=== PATIENT | female | born 1945 | race Caucasian/White ===

== ENCOUNTER → 2020-05-18 17:54 | Outpatient (CLI) | payer MEDICARE, SELFPAY | PROVIDERS: PCP Internal Medicine; Referring Provider Internal Medicine; Visit Provider Internal Medicine | DX: Z20.828 Contact with and (suspected) exposure to other viral communicable diseases (principal) | CPT/HCPCS: 87635; C9803; U0003 ==

== ENCOUNTER → 2021-02-03 12:07 | Outpatient (CLI) | payer MEDICARE, BC, SELFPAY ==
[2021-02-03 11:14] VITALS: BMI 44.1
[2021-02-03 13:44] LABS: Absolute Lymphocyte Count 0.85 X10^3/uL (0.83-4.51); Absolute Neutrophil Count 3.1 X10^3/uL (2.0-7.7); Basophil# 0.01 X10^3/uL; Basophil% 0.2 % (0-1); Eosinophil# 0.11 X10^3/uL; Eosinophils% 2.5 % (0-5); Hematocrit 41.4 % (37-47); Hemoglobin 13.4 g/dL (12.0-15.0); Lymphocyte # 0.85 X10^3/ul (0.83-4.51); Lymphocyte % 19.2 % (19-41); Mean Corp Hgb Conc 32.4 g/dL (32-36); Mean Corpuscular Hgb 28.7 pg (27.0-32.0); Mean Corpuscular Volume 88.7 fL (81-99); Mean Platelet Vol. 10.1 fl (6.2-12.0); Monocyte# 0.31 X10^3/uL; NRBC Flagged by Analyzer 0 % (0-5); Neutrophil # 3.12 X10^3/uL (2.7-7.7); Neutrophil % 70.6 % (47-70); Platelet Count 214 K/mm3 (150-450); RBC Distribution Width CV 13.9 % (11.6-14.6); RBC Distribution Width SD 44.4 fl (35.1-43.9); Red Blood Count 4.67 M/mm3 (4.2-5.4); White Blood Count 4.4 K/mm3 (4.4-11.0)
[2021-02-03 14:12] LABS: BNP,B-Type NATRIURETIC PEPTIDE 19.7 pg/mL (0-100)
[2021-02-03 14:26] LABS: AST(SGOT) 48 U/L (15-37); Alanine Aminotransfer ALT/SGPT 95 U/L (13-56); Albumin, Serum 3.6 g/dL (3.2-5.0); Alkaline Phosphatase 107 U/L (45-117); Anion Gap 5 (5-15); BUN 14 mg/dL (7-18); BUN/Creat Ratio 13.3 RATIO (10-20); Bilirubin, Direct 0.18 mg/dL (0.00-0.30); Calcium,Total 9.8 mg/dL (8.5-10.1); Chloride 103 mmol/L (98-107); Cholesterol 180 mg/dL (200); Creatinine, Serum 1.05 mg/dL (0.55-1.02); EST Glomerular Filtration Rate 54 mL/min (>60); Est Glom Filt Rate - Afr Amer 66 mL/min (>60); Globulin 3.4 g/dL (2.2-4.2); Glucose 132 mg/dL (74-106); High Density Lipoprotein 57 mg/dL; Potassium 4.1 mmol/L (3.5-5.1); Sodium Level 139 mmol/L (136-145); Thyroid Stim Hormone (TSH) 4.48 uIU/mL (0.358-3.74); Triglycerides 106 mg/dL; Very Low Density Lipoprotein 21 mg/dL (5-40)
== END ==
PROVIDERS: PCP Internal Medicine; Referring Provider Internal Medicine Cardiovascular Disease; Visit Provider Internal Medicine Cardiovascular Disease
DX: I10 Essential (primary) hypertension (principal); R06.02 Shortness of breath; R06.00 Dyspnea, unspecified; I44.7 Left bundle-branch block, unspecified; E78.5 Hyperlipidemia, unspecified
CPT/HCPCS: 36415; 80048; 80061; 80076; 83880; 84443; 85025

== ENCOUNTER → 2021-02-19 06:45 | Outpatient (CLI) | payer MEDICARE, BC, SELFPAY ==
[2021-02-03 11:14] VITALS: BMI 44.1
--- NOTE | 2021-02-19 06:52 | ECHOCS_ITS ---
Reason For Study: SOB Procedure This was a 2D Doppler, Color Flow transthoracic echocardiogram. Technically difficult study due to patients body habitus. Contrast injection performed. Exam performed in department. Left Ventricle Normal LV size. Left ventricular systolic function is normal. The estimated ejection fraction is 65 %. No regional wall motion abnormalities noted. Right Ventricle Normal RV size. Normal systolic function. Atria Normal left atrium. Normal right atrium. Mitral Valve Normal mitral valve. There is mild mitral annular calcification. Tricuspid Valve Normal tricuspid valve. Aortic Valve Trisinus/trileaflet aortic valve. Pulmonic Valve Normal pulmonic valve. Great Vessels Normal aortic root. The pulmonary artery is normal size. Normal inferior vena cava. Pericardium/Pleural No pericardial effusion. Medication 22 gauge I.V. with prn adaptor inserted into left arm. Diluted definity 3ml given slow IV push to enhance endocardial definition. MMode/2D Measurements & Calculations LVIDd: 3.9 cm IVSd: 1.3 cm Ao root diam: 3.6 cm LVIDs: 2.8 cm LVPWd: 1.7 cm LA dimension: 3.9 cm FS: 29.4 % LAV(MOD-bp): 56.3 ml LA A4 area: 17.9 cm2 RA A4 area: 10.2 cm2 LAV(MOD-bp) Indexed: 23.5 ml/m2 LAV(MOD-sp2): 59.3 ml LAV(MOD-sp4): 51.4 ml Doppler Measurements & Calculations MV E max wade: 179.7 cm/sec Lat Peak E' Wade: 7.4 cm/sec Ao V2 max: 181.1 cm/sec E/E' lat: 24.2 Ao max P.1 mmHg LV V1 max: 121.9 cm/sec PA V2 max: 97.3 cm/sec LV V1 max P.9 mmHg ECHO/Echo Complete W/ Contrast Interpretation Summary Normal LV size. Left ventricular systolic function is normal. The estimated ejection fraction is 65 %. There is mild mitral annular calcification. Ordering Physician: Paolo Fitch Referring Physician: Helen De Paz Performed By: Omar Mccloud, RUST
--- NOTE | 2021-02-19 18:11 | STRESSREP ---
Stress Test Report Pharmacologic myocardial perfusion stress test. 75-year-old lady with a history of chest pain. Stress protocol: Resting EKG demonstrates normal sinus rhythm with a rate of 76 bpm. Left bundle branch block pattern is noted resting blood pressure is 152/82 mmHg. 0.4 mg of regadenoson was infused per usual protocol followed by rapid intravenous saline flush injection continuous EKG monitoring was performed. The maximum heart rate attained is 96 bpm which was 66% of maximum predicted heart rate the maximum workload was 1 metabolic equivalent. At rest there were no ST or T wave changes noted to suggest ischemia at peak infusion nonspecific ST changes were noted. Left bundle branch block pattern was noted. Myocardial perfusion protocol. 14.7 mCi of technetium 99m sestamibi was injected at rest. 0.4 mg of regadenoson was infused per usual protocol. At peak infusion 44.5 mCi of technetium 99m sestamibi was injected stress images were obtained stress and rest images were reconstructed and compared in the short axis vertical long and horizontal long axis. Gated images were also obtained per Perfusion SPECT analysis: Review of the stress images demonstrate a medium-sized defect noted in the anterior wall. The septum lateral wall and inferior wall appeared to be well perfused. The resting images demonstrate improvement in the anterior wall the above suggesting anterior ischemia. No previous infarct is noted. Gated SPECT analysis: The gated ejection fraction is 70%. Conclusion: Pharmacologic myocardial perfusion stress test with evidence of anterior ischemia. Preserved ejection fraction.
== END ==
PROVIDERS: PCP Internal Medicine; Referring Provider Internal Medicine Cardiovascular Disease; Visit Provider Internal Medicine Cardiovascular Disease
DX: R06.00 Dyspnea, unspecified (principal); R06.02 Shortness of breath
CPT/HCPCS: 78452; 93017; 93306; A9500; Q9957; A4216; C8929; J2785; J3490

== ENCOUNTER 2021-03-01 08:57 | Day surgery (SDC) | payer MEDICARE, BC, SELFPAY ==
[2021-02-03 11:14] VITALS: BMI 44.1
--- NOTE | 2021-02-22 10:26 | RAD_ITS ---
STUDY: X-RAY CHEST REASON FOR EXAM: Female, 75 years old. Angina. TECHNIQUE: COMPARISON: None. FINDINGS: The lungs are clear and expanded. There is no demonstrated pleural abnormality. Normal size heart. Normal mediastinum and warner. Normal visualized pulmonary arteries. There is atherosclerotic calcification of the aortic arch with tortuosity. There are diffuse degenerative changes of the visualized thoracic spine. There is degenerative osteoarthritis of the bilateral shoulders. There is no demonstrated abnormality of the visualized soft tissue structures of the upper abdomen. RAD/Chest PA and Lateral IMPRESSION: No acute abnormality is seen. Electronically Signed: Ed Altamirano MD at 14:00 EDT , Service support ,
[2021-02-26 08:31] VITALS: BMI 44.1
[2021-03-01 09:46] LABS: Bedside Glucose 178 mg/dL (70-110)
--- NOTE | 2021-03-01 10:41 | CL.D_ITS ---
Patient Name: KEMAL CONNER Study Date: 03/01/2021 Performing: Paolo Fitch MD Ht: 68.11 inches 173 cm : 1945 Wt: 291.01 lbs 132 kg Age: 75 Gender: female BSA: 2.4 PROCEDURE(S) PERFORMED [id number]/LV CLINICAL PROFILE AND INDICATIONS Indications: Suspected CAD Heart Failure: None Stress/Imaging Date: 02/19/21ress Test with SPECT MPI: Positive Intermediate Risk CAD Presentations: Unstable angina. CONCLUSIONS Significant proximal right coronary artery stenosis with 80% stenosis. RECOMMENDATIONS Referred for immediate PCI DESCRIPTION OF PROCEDURE The patient arrived to the procedure lab. The risks and benefits of the procedure as well as a full d escription of our services here and current unavailability of surgical backup were fully explained to the patient and/or their significant other prior to the catheterization. The Timeout was completed, verifying the correct patient and procedure. The patient's procedural site was prepped and draped in the usual fashion. Local anesthetic was given subcutaneously to right radial region with Lidocaine 2% . Using a modified Seldinger technique, arterial access was obtained via the right radial artery, a 6 Fr sheath was inserted. Left Coronary Artery selective angiography was performed in multiple views u sing a 5 Fr. 4.0 Bar[place] catheter. Right Coronary Artery selective angiography was then performed in mu ltiple views using a 5 Fr. 4.0 Baraga catheter. Left Ventriculography was performed in GARCIA projection using a 5 Fr. Pigtail catheter. LV to AO pullback pressures were then recorded. CORONARY ANGIOGRAPHY DOMINANCE: Right Dominant LEFT HEART ASSESSMENT Normal LV wall motion Normal Left Ventricular systolic function LEFT MAIN: Angiographically normal LEFT ANTERIOR DESCENDING ARTERY: PROX LAD: Mild luminal irregularities less than 30% CIRCUMFLEX ARTERY: No significant disease noted RIGHT CORONARY ARTERY: PROX RCA: Moderate calcification, 80 % Stenosis COMPLICATIONS PROCEDURE MEDICATIONS Fentanyl 50 mcg IV Versed 1 mg IV Oxygen: 2 L/min via nasal cannula Brilinta 180 mg PO @ 03/01/2021 10:26:59 Heparin given IA 03/01/2021 10:13:21 Heparin 6000 unit(s) IV 03/01/2021 10:28:30 Nitro 200 mcg IA 03/01/2021 10:34:43 Verapamil 2.5mg, Ntg 100mcgs, 3000 units of Heparin given IA 03/01/2021 10:13:21 SUMMARY OF HEMODYNAMIC DATA Time AIR REST ECG 09:31:11 Art 167/74 (104) 10:10:27 AO 137/75 (101) SA 10:16:00 LV 144/10, 25 10:23:19 LV 148/13, 20 10:23:25 LV 131/15, 26 10:24:09 LVp 126/24, 31 10:24:14 AOp 129/69 (95) 10:24:19 Signed By Paolo Fitch MD On 03/01/2021 10:40:36 AM Paolo Fitch MD
--- NOTE | 2021-03-01 11:32 | PCIREPORT_ITS ---
PCI Cardiac Cath Report PCI Report: ; Procedure performed; 1. Attempted PCI of focal heavily calcified proximal large dominant RCA 80%/unable to pass balloon due to heavily calcified artery 2. Patient was given Brilinta 180 mg, aspirin and heparin and ACT level was 251. 3. Placement of TR band to right radial artery arteriotomy site. Consent; Risk and benefit of the procedure explained in detail to the patient elected to proceed and informed consent obtained. Preprocedure diagnosis; 75-year-old patient underwent cardiac catheterization by primary seasonal tax preparer Dr. Fitch, patient had history of diabetes, hypertension, hyperlipidemia symptoms of shortness of breath and LE bundle branch block Review of the cardiac catheterization showed focal highly calcified large proximal RCA dominant 80% stenosis. Left coronary system no significant coronary atherosclerosis seen., Including left main, left circumflex and a large LAD. And LV systolic function is preserved. Interventional equipment; 1. 6 [place]ian [place] guide catheter. 2. 2 wires, 0.014 straight run-through guide wire 180 cm 3. BMW guidewire 4. 2 mm x 15 mm emerge balloon. Approach; Right radial artery approach, patient given additional 200 mg of nitroglycerin through the right radial artery sheath. We will proceed with the [place] catheter 6 Slovenian guide advanced ascending aorta cannulated right coronary ostium, This is followed by crossing the lesion with 2 wires due to heavily calcified vessel it was difficult to cross the lesion Then we attempted predilatation using 2 mm x 50 mm balloon unable to cross with the balloon. Patient is stable with no complication no chest pain no change in the EKG or monitors and K wires removed and angiographic view showed a highly calcified lesion Conclusion and recommendation Heavily calcified proximal right dominant coronary artery 80% with attempted PCI unsuccessful due to unable to pass wire I recommended atherectomy to the heavily calcified RCA, versus IV L {intravascular lithotripsy} Arrangement was made for transfer to [facility] for intervention of the RCA. Jorge Ward MD,[facility] welding robot operator
== END 2021-03-01 14:57 | disposition home or self-care (01) ==
LOC: CLSP 09:03
PROVIDERS: PCP Internal Medicine; Referring Provider Internal Medicine Cardiovascular Disease; Visit Provider Internal Medicine Cardiovascular Disease
DX: I25.110 Atherosclerotic heart disease of native coronary artery with unstable angina pectoris (principal); E78.5 Hyperlipidemia, unspecified; I10 Essential (primary) hypertension; E11.9 Type 2 diabetes mellitus without complications; F32.9 Major depressive disorder, single episode, unspecified; K21.9 Gastro-esophageal reflux disease without esophagitis; E03.9 Hypothyroidism, unspecified; H40.9 Unspecified glaucoma; K58.9 Irritable bowel syndrome, unspecified; G25.81 Restless legs syndrome; G47.33 Obstructive sleep apnea (adult) (pediatric); F41.9 Anxiety disorder, unspecified; M79.7 Fibromyalgia; M19.90 Unspecified osteoarthritis, unspecified site; M48.062 Spinal stenosis, lumbar region with neurogenic claudication; E66.01 Morbid (severe) obesity due to excess calories; Z79.899 Other long term (current) drug therapy; Z68.41 Body mass index [BMI] 40.0-44.9, adult
CPT/HCPCS: 71046; 82962; 92928; 93458; 99152; 99153; J7040; Q9967; C1725; C1769; C1887; C1894; C9600

== ENCOUNTER → 2021-03-10 13:00 | Outpatient (CLI) | payer MEDICARE, BC, SELFPAY ==
[2021-03-05 14:31] VITALS: BMI 44.1
--- NOTE | 2021-03-10 13:07 | CR.HP_ITS ---
CR - History & Physical - General Arrival date:: 03/10/21 Arrival time:: 13:08 Date of Referral:: 03/05/21 Date of CR Evaluation:: 03/10/21 Referring Physician: Dr. Paolo Fitch Primary Diagnosis: PCI with coronary stent - History of Present Cardiac Event Onset Date: Enter Onset Date of cardiac illnesses in Comment field below PTCA or coronary stenting:: Yes - 03/02/2021 - Sleep Disorder Evaluation Hx of Sleep Apnea: Yes Do you snore loudly (louder than talking or can be heard through closed doors)?: No - unsure Do you often feel tired/ fatigued/ sleepy during daytime?: No - Pt has CPAP and sleeps sitting up Has anyone observed you stop breathing during sleep?: Yes History of Hypertension (for STOP score): Yes - Pt is on CPAP STOP Results: Positive - Medications Home Medications: Ambulatory Orders Medication Instructions Recorded Lactobacillus See Rx Instructions .ROUTE .COMPLEX 02/01/21 acidophilus-Bifidobac.animalis 2.5 billion cell capsule amoxicillin 500 mg capsule 2,000 mg PO .COMPLEX cap 02/01/21 ascorbic acid (vitamin C) 250 mg 250 mg PO DAILY 02/01/21 tablet atorvastatin 10 mg tablet 10 mg PO QHS 02/01/21 bimatoprost 0.01 % eye drops 1 drp OPHTHALMIC (EYE) QPM 02/01/21 bupropion HCl 150 mg tablet,12 hr 150 mg PO QAM 02/01/21 sustained-release cetirizine 10 mg tablet 10 mg PO HS tab 02/01/21 cholecalciferol (vitamin D3) 50 2,000 unit PO DAILY tab 02/01/21 mcg (2,000 unit) tablet ciprofloxacin HCl 0.3 % eye drops 1 drp OPHTHALMIC (EYE) 4X/DAY ml 02/01/21 conjugated estrogens 0.625 mg/gram 0.3125 mg VAGINAL 2XW g 02/01/21 vaginal cream diclofenac sodium 1 % topical gel 2 g TOPICAL 4X/DAY g 02/01/21 dicyclomine 10 mg capsule 10 mg PO QACHS cap 02/01/21 ferrous sulfate 324 mg (65 mg 324 mg PO DAILY 02/01/21 iron) tablet,delayed release fluticasone propionate 50 2 spray INTRANASAL DAILY 02/01/21 mcg/actuation nasal spray,suspension gabapentin enacarbil 300 mg 900 mg PO DAILY tab 02/01/21 tablet,extended release glyburide 2.5 mg tablet 2.5 mg PO DAILY 02/01/21 hydrocortisone 2.5 % topical cream 1 applic IA BID g 02/01/21 with perineal applicator ketoconazole 2 % topical cream 1 applic TOPICAL DAILY 02/01/21 levothyroxine 50 mcg tablet 50 mcg PO DAILY 02/01/21 meloxicam 7.5 mg tablet 7.5 mg PO BID PRN tab 02/01/21 metformin 1,000 mg tablet 1,000 mg PO DAILY 02/01/21 montelukast 10 mg tablet 10 mg PO QHS 02/01/21 olopatadine 0.1 % eye drops 1 drp OPHTHALMIC (EYE) BID 02/01/21 omeprazole 40 mg capsule,delayed 40 mg PO DAILY 02/01/21 release pramipexole 0.125 mg tablet 0.25 mg PO 4X/DAY tab 02/01/21 sitagliptin 100 mg tablet 100 mg PO DAILY 02/01/21 tizanidine 2 mg capsule 2 mg PO QHS 02/01/21 ubidecarenone-omega 3-vit E 25 1 cap PO DAILY 02/01/21 mg-150 (90-60) mg-200 unit capsule valsartan 320 1 tab PO DAILY 02/01/21 mg-hydrochlorothiazide 12.5 mg tablet wheat dextrin 3 gram/3.8 gram oral 1 packet PO DAILY 02/01/21 powder aspirin 81 mg tablet,delayed 81 mg PO DAILY 02/20/21 release metoprolol tartrate 25 mg tablet ea PO 03/05/21 semaglutide 0.25 mg SUBCUT QWEEK 03/05/21 ticagrelor 90 mg tablet 90 mg PO BID tab 03/05/21 - Allergies Allergies/Adverse Reactions: Allergies bacitracin Allergy (Unknown, Verified 02/01/21 10:46) unknown codeine Allergy (Unknown, Verified 02/01/21 10:46) Unknown house dust mite Allergy (Unknown, Verified 02/01/21 10:46) unknown mold Allergy (Unknown, Verified 02/01/21 10:46) Unknown Sulfa (Sulfonamide Antibiotics) Allergy (Unknown, Verified 02/01/21 10:46) Unknown Advanced Directives - Advanced Directives 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 Box 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: Yes Living Will: Yes Advance Directives Information Provided: Yes Advance Directives on File: No DNR Order?:: No - MOLST See MOLST form: No Past Medical History - Covid-19 Screening Fever: No Unexplained muscle aches: No Current respiratory symptoms: No Upper respiratory infections symptoms: No Gastro-intestinal symptoms: No Fxg-[id number]-Xhpsvf symptoms: No Has tested positive for COVID-19 in last 30 days: No Had contact w/person w/symptoms or Covid-19 (+) last 14 days: No Has High Risk Exposures ID'd by Health dept/Inf Control team: No 65 years or older:: Yes Lives in Assisted Living facility:: No Has a chronic lung disease or moderate to severe asthma:: No Has a serious heart condition:: Yes Immunocompromised:: No Severely obese (Body Mass Index of 40 or higher):: Yes Diabetic:: Yes Has chronic kidney disease undergoing dialysis:: No Has liver disease:: No - Past Medical Illness Medical History: Past Medical History (Last Reviewed 03/05/21 @ 15:03 by Felicita POWER, PA) Anxiety and depression F41.9, F32.9 Atherosclerotic heart disease of [place] coronary artery without angina pectoris I25.10 Essential hypertension I10 Fibromyalgia M79.7 Fuchs' corneal dystrophy H18.519 GERD (gastroesophageal reflux disease) K21.9 Glaucoma H40.9 History of posttraumatic stress disorder (PTSD) Z86.59 Hx of migraines Z86.69 Hyperlipidemia E78.5 Hypothyroidism E03.9 IBS (irritable bowel syndrome) K58.9 Iron deficiency anemia D50.9 Left bundle branch block (LBBB) I44.7 Morbid obesity E66.01 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 G47.33, Z99.89 Osteoarthritis M19.90 Restless leg syndrome G25.81 Sleeps in sitting position due to orthopnea R06.01 Spinal stenosis of lumbar region with neurogenic claudication M48.062 TMJ (dislocation of temporomandibular joint) S03.00XA Type 2 diabetes mellitus without complication E11.9 - Past Surgical History Surgical History: Past Surgical History (Last Updated 03/08/21 @ 13:01 by Ellyn Gu) History of abdominoplasty Z98.890 History of bilateral breast reduction surgery Z98.890 History of bladder repair surgery Z98.890 History of coronary artery stent placement Onset Date: 03/02/21 Z95.5 PCI-CSI Orbital Atherectomy and LORI-Mid RCA w/ 4.0 x 28 mm Xience Stent 03/02/21 History of Descemet membrane endothelial keratoplasty (DMEK) Z94.7 History of Descemet's stripping endothelial keratoplasty (DSEK) Z94.7 History of hysterectomy Z90.710 History of left heart catheterization Onset Date: 03/01/21 Z98.890 History of nasal septoplasty Z98.890 History of parathyroid surgery Z98.890 History of phacoemulsification of cataract of both eyes with intraocular lens implantation Z98.41, Z98.42, Z96.1 History of repair of rectocele Z98.890 History of total left knee replacement Z96.652 History of total right knee replacement Z96.651 History of YAG laser capsulotomy of lens of left eye Z98.42 History of YAG laser capsulotomy of lens of right eye Z98.41 - Family History Summary Family History: Family History (Last Reviewed 03/05/21 @ 15:03 by Felicita POWER, PA) Father CVA (cerebral vascular accident) CAD (coronary artery disease) coronary stents Mother Myocardial infarction, Onset Age: 59 Brother CAD (coronary artery disease) CABG Sister Diabetes Hypertension Heart disease CHF Unknown Glaucoma Brother CAD (coronary artery disease) CABG end stage CHF Social History - Smoking History Smoking Status: Never smoker Hx Tobacco Use: No Hx Smoking Exposure: No - Alcohol Use Alcohol Usage: Yes - few times a month - Substance Abuse Hx Substance Use: No - Occupation Occupation (List type of work in comments):: Retired - Hobbies, Recreation, Social Activities Hobbies: Other - artist, writing, computer games Recreational Activities: I am able to engage in all my recreational activities Social Environment - Status Marital Status: - Current Living Arrangements Living Environment:: Alone - Children How many children do you have?: 2 Do any of your children live nearby?: Yes - Safety Do you feel safe in your surroundings?: Yes - Assistance Do you need any assistance at home?: no Review of Systems - Review of Systems Hints: Right click = Denies ([place]). Left click = Reports ([place]) Review of Present Symptoms: Reports: Shortness of Breath with Exertion, Operative Discomfort - wrist pain, Fatigue, Appetite - Normal, Appetite - Special Diet, Sleep - Normal. 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 - Obesity Height: 5 ft 8 in Weight:: 130.181 kg Weight in Pounds: 287.0 lbs Body Mass Index (BMI): 43.6 Nutritional Referral for Obesity: No - Pt declined - Physical Inactivity Physical Inactivity: None - Risk Stratification Risk Guidelines: Lowest Risk: Risk Factor for Smoking, Moderate Risk: Risk Factor for Dyslipidemia, Risk Factor for Sedentary Lifestyle, Risk Factor for Depression, Highest Risk: Risk Factor for Diabetes, Risk Factor for Obesity, Risk Factor for Hypertension - Family History Family History: Family History (Last Reviewed 03/05/21 @ 15:03 by Felicita Hughes PA, PA) Father CVA (cerebral vascular accident) CAD (coronary artery disease) Mother Myocardial infarction, Onset Age: 59 Brother CAD (coronary artery disease) Sister Diabetes Hypertension Heart disease Unknown Glaucoma Brother CAD (coronary artery disease) Motivation - Motivation to Participate On a scale of 1 to 10, how prepared are you to commit to attending program?: 7 What do you see as barriers to successfully being able to complete the program?: nothing What do you see as the benefits of succesfully completing the program? In other words, what do you hope to get out of participating in the program?: improved health Are there issues you are dealing with that will interfere with completing the program?: no Do you have a spouse or signficant other, family or friends who will help support you to complete the program?: family
--- NOTE | 2021-03-10 13:08 | CR.ITP_ITS ---
Diagnosis - General Information Admitting Diagnosis: PCI with coronary stent Personal Learning Style:: Audio/Visual Barriers to Learning: Vision Impairment Gave educational material for:: Treating Heart Disease, Emotions & Heart Disease, Stress Management & Relaxation, Sleep Disorders & Heart Disease, How The Heart Works, What it means to have Heart Disease, How Coronary Artery Disease is Diagnosed, Heart Procedures, What Heart Medications Do, Risk Factors & Modifications, Living an Active Life, Nutrition - Education/Goals Cardiac Rehabilitation Goals: 1. Maintain the individual as the primary focus of care. 2. To improve the patient's quality of life. 3. Identification of cardiac risk factors and provide cardiac risk factor management. 4. Enhance the psychosocial status of the patient. 5. Reconditioning enough to allow the patient to resume customary activities. 6. Control symptoms of cardiac disease Personal Goals: Initial Assessment: Improve energy level, Improve muscle strength and endurance, Improve diet and eating habits (eat healthier), Control risk factors (learn risk factor modification) Scale for measuring improvement of personal goals: Enter appropriate number in Comments. 2 = Unchanged. 3 = Slightly Better. 4 = Moderate Improvement. 5 = Met my Goal - Diagnosis & Disease Process Outcomes/Goals: Pt IDs own risk factors & lifestyle modifications by Session 10, Verbalizes symptoms of angina & response by session 3., Pt independently manages, Other Additional Outcomes/Goals: Plan/Interventions: Assist Pt to ID & engage in lifestyle modification to reduce CVD risk, Instruct on individual risk factors, Review symptoms of angina & emergency actions, Review secondary diagnosis & identify educational needs., Other see comment 30 day Reassessments:: Not Met 30 day Reassessments:: Not Met 30 day Reassessments:: Not Met 30 day Reassessments:: Not Met Final Reassessments:: Not Met - Safety Referral to Physical Therapy: No Referral to [facility] Case Management: No Fall Risk Assessed:: Yes Assistive Devices:: None Exercise - Initial Assessment - Visit Date of Eval: 03/10/21 - initial eval Mets: Pre-: >3 METS for 30 minutes by discharge, >5 METS for 30 minutes by discharge, >7 METS for 30 minutes by discharge, Unable to meet goal due to: (see comment below) - Physician Prescribed Exercise Modalities: Treadmill, Biodyne, Rower, Airdyne, NuStep, SciFit Frequency: 3x/week for 12 weeks [36 sessions] Intensity: 60-80% of age predicted maximum heart rate reserve - 94-123 Target Heart Rate:: 94-123 - Outcomes & Goals Goals:: Verbalizes understanding of THR, RPE & goal METS by session 6, Documents in home exercise log/reports 30 min aerobic 5 day/wk by DC, Demonstrates accurate pulse taking by DC, Other additional outcome/goals: see below - Intervention & Plan Exercise Program Goals: Instruct on personal THR & RPE, Instruct on MET level & personal MET goal, Show patient to take own pulse /validate performance until accurate, Instruct on home exercise, Other additional plan/int - Physical Activity Home Exercise Physical Activity - Home Exercise: Safe Exercise, Warm-up, Self-monitoring, Cool-Down, Home Exercise > 30 min Daily, Sitting Time <3 hours/daily - Outcomes & Goals Outcomes/Goals: Demonstrates correct Warm-up/exercise Cool-Down (S3) if = 2.5 METs, Verbalizes symptoms of exercise intolerance by Session 3 (S3), Demonstrate safe equipment use (S3) & follows exercise prescrition (6), Other: See below - Intervention & Plan Plan/Intervention: Instruct warm-up & cool-down if exercising at > 2 METs, Instruct on symptoms of exercise intolerance & actions to take, Instruct & monitor on saf, Assess intial functional capacity & safety risk, Other See below Nutrition - Initial Assessment - Program Goals Nutrition Program Goals: LDL <100 optimal. 100 - 129 Near optimal. 130 - 159 Borderline High. 160 - 189 High. Total Cholesterol <200 desirable. 200 - 239 Borderline High. >/= 240 High. HDL < 40 Low >/=60 High. Triglycerides <150 desirable. <199 optimal. VlDL 5 - 40. HgbA1C <7%. BMI <25 Patient has diagnosis of Hyperlipidemia (ICD E78)?: Yes - Visit Date of Assessment:: 03/10/21 - initial eval - Cholesterol/Lipids Determine presence & major risk factors that modify LDL goal: Hypertension or hypertensive medication, Low HDL cholesterol <40 mg/dL*, Family history of premature CHD in Male < 55 years: female <65 yearsFa, Age men > 45 years; women >/= 55 years Outcomes/Goals: Pt IDs own risk factors & lifestyle modifications by Session 10, Verbalizes symptoms of angina & response by session 3., Pt independently manages, Other Additional Outcomes/Goals: Intervention/Plan: Advocate for lipid panel cholesterol medication if applicable, Instruct on personal lipid levels & lipid goals/NCEP guidelines, Instruct on cholesterol, Other additional plan/int Referral to dietitian:: No - Diabetes (Other Core Measures) Diabetes Type: Diagnosis Type II ICD-10 E11 Insulin dependent injection/pump?: No Non-Insulin Dependent?: Yes Do you monitor your blood sugar at home?: Yes Referral to Diabetic Clinic:: No Outcomes/Goals:: Able to state symptoms of, Able to state, Able to state, Other additional Intervention/Plan:: Instruct on, Refer to, Instruct on, Other - Weight Mgt (Other Care) Height: 5 ft 8 in Weight:: 130.181 kg BMI: 43.6 Diagnosis High BMI/Morbid Obesity BMI> 35% ICD-10 Z68: Yes Outcomes/Goals: Pt sets, maintains & shows weight loss goal & trend during rehab, Other additional outcomes/goals Intervention/Plan: Instruct on ideal BMI & set weight loss goal w/patient, Assist pt to ID & incorporate diet changes for weight loss by S9, Refer to Structured Weight Loss program as appropriate, Encourage goal of using 250- 300dcal per session for weight loss, Other additional plan/interventions - Healthy Eating Habits Will attend diet classes:: Yes Outcomes/Goals:: Consume diet rich in vegs,fruits,whole grain/high fiber,fish,lean meat, Limit sat/trans fats,cholesterol & added salts & sugars, Other additional outcome/goals: Intervention/Plan:: Assess current eating habits, Other Additional plan/interventions - Education Gave educational materials for:: Signs & symptoms of hypoglycemia, Signs & symptoms of hyperglycemia, Relate diabetes to coronary artery disease, Healthy eating Nutrition - 30-Day Assessment Nutrition - 60-Day Assessment Nutrition - 90-Day Assessment Nutrition - Final Assessment Medical - Initial Assessment - Visit Date of Eval: 03/10/21 - initial eval - Medication Compliance Preventative Medication(s):: Aspirin, Ticagrelor/P2Y12 inhibitor, Statin/lipid, Beta kendall H/O mental health issues: depression, anxiety, or addiction?: Yes Doesn?t believe in the benefits of treatment?: No Believes medications are unnecessary or harmful?: No Has a concern about medication side effects?: No Expresses concern over the cost of medications?: No Outcomes/Goals: Verbalizes medications,desired effect & common side effects @ DC, Pt self-reports following medication regimen, Keeps card in wallet w/medications listed by DC, Other additional outcome/goals: Interventions/plans: Instruct on medication effects & side effects, Review medication list w/patient every two weeks, Instruct importance of taking meds as ordered & assist problem solving, Other additional - Tobacco Use Tobacco Use: Non-smoker Do you use smokeless tobacco?: No - Hypertension Hypertension Diagnosis:: Hypertension ICD-10 I10 Resting Blood Pressure:: 122/62 [place] [employer] Hypertension Guidelines: [place] [employer] Hypertension Guidelines. Normal BP Less than 120/80. Elevated BP 120/80. Hypertension Stage 1: BP 130-139/80-89. Hypertesnion Stage 2: BP 140 or higher/90 or higher. Hypertension Crisis: BP higher than 180/120 Outcomes/Goals: Able to verbalize/achieve optimal blood pressure <130/80, Incorporates diet changes & exercise for blood pressure control by DC, Other additional outcomes/goals Interventions/plan: Instruct on optimal blood pressure, hypertension & medications, Instruct on effects of sodium, alcohol, stress, exercise &hypertension, Other additional plan/interventions - Tobacco Cessation Referral Smoking Cessation Referral:: No Individual Education/Counseling:: No Education Schedule Given:: Yes Medical- 30-Day Assessment Medical- 60-Day Assessment Medical- 90-Day Assessment Medical - Final Assessment Psychosocial - Initial Assess - VIsit Date of Eval: 03/10/21 - initial eval History of Emotional Disorders: Depression - Pt is on medication for depression - Outcomes/Goals: See list Psychosocial Outcomes/Goals:: ID's personal stressors & 2 strategies to manage stress by discharge, Other Additional outcome/goals: - Intervention/Plan: See List Interventions/Plan:: Assess stressors,coping strategies & signs of derpression on admission, Instruct/assist pt to develop coping & personal stress Mgt strategies, Refer to Behavioral Health if appropriate, Refer to Physician if appropriate, Instruct patient to recognize signs & symptoms of depression, Instruct patient to recog, Other additional plan/intervention Psychosocial - 30-Day Assess Psychosocial - 60-Day Assess Psychosocial - 90-Day Assess Psychosocial - Final Assessmen Patient Health Questionnaire Initial Assessment 1. Little interest or pleasure in doing things: Not at all 2. Feeling down, depressed, or hopeless: Several days 3. Trouble falling or staying asleep, or sleeping too much: Not at all 4. Feeling tired or having little energy: Several days 5. Poor appetite or overeating: Several days 6. Feeling bad about yourself -- or that you are a failure or have let yourself or your family down: Several days 7. Trouble concentrating on things, such as reading the newspaper or watching television: Not at all 8. Moving or speaking so slowly that other people could have noticed. Or the opposite - being so fidgety or restless that you have been moving around a lot more than usual: Not at all 9. Thoughts that you would be better off , or of hurting yourself in some way: Not at all How difficult have these problems made it for you to do your work, take care of things at home, or get along with other people?: Not difficult at all Total Score: 4 CRISPIN-Q SV Test - Statements CAD is a disease of the arteries in the heart: False Examples of risk factors for heart disease: True Angina is chest pain or discomfort: I Don't Know The benefits of resistance training include: True Eating more meat and dairy products: False Anti-platelet medications such as aspirin are important: True The only effective way to manage stress: False An exercise warm-up slowly increases heart rate: True Prepared, processed foods usually have high sodium: True Depression is common after a heart attack: True The statin medications lower cholesterol: True To control blood pressure, lower the amount of sodium: True If someone gets chest discomfort during walking: False Transfats are partially hydrogenated vegetable oils: False Sleep apnea that is not treated increases the risk: False To control cholesterol, one should become a vegetarian: False Someone knows if he/she is exercising at the right level: True Diabetes cannot be prevented with exercise & health eating: I Don't Know Stress is a large risk for heart attack: True A diet that can help lower blood pressure is rich in: True - Total Score Total Correct Responses: 17 Self-Efficacy Initial Assessment We would like to know how confident you are in doing certain activities. Please select your confidence level for:: Select your confidence level for the following using the scale 1-10 where 1 is not at all confident and 10 is totally confident. Your score is the average of all 6 responses. Fatigue: How confident are you that you can keep the fatigue caused by your disease from interfering with the things you want to do? Select Number: 6 Physical Discomfort or Pain: How confident are you that you can keep the physical discomfort or pain of your disease from interfering with the things you want to do? Select Number: 9 Emotional Distress: How confident are you that you can keep the emotional distress caused by your disease from interfering with the things you want to do? Select Number: 8 Other Symptoms or Health Problems: How confident are you that you can keep other symptoms or health problems from interfering with the things you want to do? Select Number: 6 Different Tasks and Activities: How confident are you that you can do the different tasks and activities needed to manage your health condition so as to reduce your need to see a doctor? Select Number: 6 Medication: How confident are you that you can do things other than just taking medication to reduce how much your illness affects your everyday life? Select Number: 6 Total Score:: 6 Nutrition Survey - Nutrition Survey Initial Have you lost >10 lbs over the past 2 months without trying?: No Are you following a special diet at home for diabetes, low fat, or low salt?: No Are you interested in meeting with a dietitian for help understanding your diet?: No Do you eat less than 3 meals a day?: No Do you eat fatty meats (dickey, sausage, ribs, etc), fried foods, desserts, large amounts of salad dressings, margarine, butter, or cheese most days?: Yes Do you have food allergies? [Enter types in comment field]: No Do you eat in restaurants more than 3 times a week?: No Do you season food with salt, seasoning salt, or garlic salt?: Yes Do you used canned, boxed, frozen meals, or soups, seasoning packets?: Yes Total Score:: 3
[2021-03-10 14:27] VITALS: BP 122/62; PULSE 63; O2SAT 98; BMI 43.6
[2021-03-10 14:28] VITALS: BP 122/62; BMI 43.6
== END ==
PROVIDERS: PCP Internal Medicine; Referring Provider Internal Medicine Cardiovascular Disease; Visit Provider Internal Medicine Cardiovascular Disease
DX: I10 Essential (primary) hypertension (principal); Z95.5 Presence of coronary angioplasty implant and graft

== ENCOUNTER 2021-04-12 13:00 | Outpatient (RCR) | payer MEDICARE, BC, SELFPAY ==
[2021-03-10 14:27] VITALS: BMI 43.6
[2021-03-10 14:28] VITALS: BMI 43.6
--- NOTE | 2021-04-09 08:53 | CR.ITP_ITS ---
Diagnosis Exercise - 30-day Assessment - Visit Date of Eval: 04/09/21 Session #:: 10 - Physician Prescribed Exercise Modalities: Treadmill, Airdyne, NuStep Frequency: 3x/week for 12 weeks [36 sessions] Intensity: 60-80% of age predicted maximum heart rate reserve Current METSs:: 2.5 Target Heart Rate:: 94-123 Current RPE:: 13-14 Maximum Excercise HR:: 89 Resting Blood Pressure: 140/78 Maximum Exercise Blood Pressure: 148/72 EKG Type: NSR/BBB rare PAC - Outcomes & Goals Goals:: Verbalizes understanding of THR, RPE & goal METS by session 6, Documents in home exercise log/reports 30 min aerobic 5 day/wk by DC, Demonstrates accurate pulse taking by DC - Intervention & Plan Exercise Program Goals: Instruct on personal THR & RPE, Instruct on MET level & personal MET goal, Show patient to take own pulse /validate performance until accurate, Instruct on home exercise - 30-day Reassessments 30 day Reassessments:: Progressing - Physical Activity Home Exercise Physical Activity - Home Exercise: Safe Exercise, Warm-up, Self-monitoring, Cool-Down, Home Exercise > 30 min Daily, Sitting Time <3 hours/daily - Outcomes & Goals Outcomes/Goals: Demonstrates correct Warm-up/exercise Cool-Down (S3) if = 2.5 METs, Verbalizes symptoms of exercise intolerance by Session 3 (S3), Demonstrate safe equipment use (S3) & follows exercise prescrition (6) - Intervention & Plan Plan/Intervention: Instruct warm-up & cool-down if exercising at > 2 METs, Instruct on symptoms of exercise intolerance & actions to take, Instruct & monitor on saf, Assess intial functional capacity & safety risk - 30-day Reassessments 30 day Reassessments:: Progressing Nutrition - Initial Assessment Nutrition - 30-Day Assessment - Program Goals Nutrition Program Goals: LDL <100 optimal. 100 - 129 Near optimal. 130 - 159 Borderline High. 160 - 189 High. Total Cholesterol <200 desirable. 200 - 239 Borderline High. >/= 240 High. HDL < 40 Low >/=60 High. Triglycerides <150 desirable. <199 optimal. VlDL 5 - 40. HgbA1C <7%. BMI <25 Patient has diagnosis of Hyperlipidemia (ICD E78)?: Yes - Visit Date of Assessment:: 04/09/21 - Cholesterol/Lipids Triglycerides (mg/dL): 106 Total Cholesterol (mg/dL): 180 LDL Cholesterol (mg/dL): 102 HDL Cholesterol (mg/dL): 57 Determine presence & major risk factors that modify LDL goal: Hypertension or hypertensive medication, Family history of premature CHD in Male < 55 years: female <65 yearsFa, Age men > 45 years; women >/= 55 years Outcomes/Goals: Verbalizes symptoms of angina & response by session 3., Pt independently manages Intervention/Plan: Instruct on personal lipid levels & lipid goals/NCEP guidelines, Instruct on cholesterol Referral to dietitian:: Yes - Medical Nutrition Therapy 30-day Reassessments:: Progressing - Diabetes (Other Core Measures) Diabetes Type: Diagnosis Type II ICD-10 E11 Fasting blood glucose:: 132 Hgb A1C (4.2 -6.3): na Insulin dependent injection/pump?: Yes Non-Insulin Dependent?: Yes Do you monitor your blood sugar at home?: Yes Referral to Diabetic Clinic:: Yes - INT MGMT & INST Outcomes/Goals:: Able to state symptoms of, Able to state, Able to state Intervention/Plan:: Instruct on, Refer to, Instruct on 30-day Reassessments:: Progressing - Weight Mgt (Other Care) Not Applicable: Yes Height: 5 ft 8 in Weight:: 296 lb BMI: 45.0 Diagnosis Overweight/Obesity BMI> 30% ICD-10 E66: Yes Diagnosis High BMI/Morbid Obesity BMI> 35% ICD-10 Z68: Yes Outcomes/Goals: Pt sets, maintains & shows weight loss goal & trend during rehab Intervention/Plan: Instruct on ideal BMI & set weight loss goal w/patient, Assist pt to ID & incorporate diet changes for weight loss by S9, Refer to Structured Weight Loss program as appropriate, Encourage goal of using 250- 300dcal per session for weight loss 30 day Reassessments:: Progressing - Healthy Eating Habits Will attend diet classes:: Yes Outcomes/Goals:: Consume diet rich in vegs,fruits,whole grain/high fiber,fish,lean meat, Limit sat/trans fats,cholesterol & added salts & sugars Intervention/Plan:: Assess current eating habits 30-day Reassessments:: Progressing - Education Gave educational materials for:: Signs & symptoms of hypoglycemia, Signs & symptoms of hyperglycemia, Relate diabetes to coronary artery disease, Healthy eating Nutrition - 60-Day Assessment Nutrition - 90-Day Assessment Nutrition - Final Assessment Medical - Initial Assessment Medical- 30-Day Assessment - Visit Date of Eval: 04/09/21 Session #:: 10 - Medication Compliance Preventative Medication(s):: Aspirin, Ticagrelor/P2Y12 inhibitor, Statin/lipid, Beta kendall H/O mental health issues: depression, anxiety, or addiction?: No Doesn?t believe in the benefits of treatment?: No Believes medications are unnecessary or harmful?: No Has a concern about medication side effects?: No Expresses concern over the cost of medications?: No Outcomes/Goals: Verbalizes medications,desired effect & common side effects @ DC, Pt self-reports following medication regimen, Keeps card in wallet w/medications listed by DC Interventions/plans: Instruct on medication effects & side effects, Review medication list w/patient every two weeks, Instruct importance of taking meds as ordered & assist problem solving 30-day Reassessments:: Progressing - Tobacco Use Tobacco Use: Non-smoker - Hypertension Hypertension Diagnosis:: Hypertension ICD-10 I10 Resting Blood Pressure:: 140/78 [place] [employer] Hypertension Guidelines: [place] [employer] Hypertension Guidelines. Normal BP Less than 120/80. Elevated BP 120/80. Hypertension Stage 1: BP 130-139/80-89. Hypertesnion Stage 2: BP 140 or higher/90 or higher. Hypertension Crisis: BP higher than 180/120 Peak Exercise Blood Pressure:: 148/72 Outcomes/Goals: Able to verbalize/achieve optimal blood pressure <130/80, Incorporates diet changes & exercise for blood pressure control by DC Interventions/plan: Instruct on optimal blood pressure, hypertension & medications, Instruct on effects of sodium, alcohol, stress, exercise &hypertension 30 day Reassessments:: Progressing - Tobacco Cessation Referral Smoking Cessation Referral:: No Individual Education/Counseling:: No Education Schedule Given:: Yes - [employer] Online & Education workbook provided. Medical- 60-Day Assessment Medical- 90-Day Assessment Medical - Final Assessment Psychosocial - Initial Assess Psychosocial - 30-Day Assess - VIsit Date of Eval: 04/09/21 Session #:: 10 Not Applicable: Yes History of previous Mental disease:: No - Psychosocial Test Tool Used:: PHQ-9 Questionnaire phq-9 Severity: Severity. 1-4 Minimal Depression. 5-9 Mild Depression. 10-14 Moderate Depression. 15-19 Moderately Sever Depression. 20-27 Severe Depression. Rule: - Referral to Behavioral Health PS - Interventions: Yes Attend Stress Management Classes, No Referral to Behavioral Health if PHQ-9 score >9:, No Referral to [facility], No Referral to Physician if PHQ-9 if score is 5-9: - Outcomes/Goals: See list Psychosocial Outcomes/Goals:: ID's personal stressors & 2 strategies to manage stress by discharge - Intervention/Plan: See List Interventions/Plan:: Assess stressors,coping strategies & signs of derpression on admission, Instruct/assist pt to develop coping & personal stress Mgt strategies, Instruct patient to recognize signs & symptoms of depression, Instruct patient to recog - 30-day Reassessments: 30 day Reassessments:: Progressing Psychosocial - 60-Day Assess Psychosocial - 90-Day Assess Psychosocial - Final Assessmen Patient Health Questionnaire 30-Day Re-eval Assessment 1. Little interest or pleasure in doing things: Not at all 2. Feeling down, depressed, or hopeless: Several days 3. Trouble falling or staying asleep, or sleeping too much: Not at all 4. Feeling tired or having little energy: Several days 5. Poor appetite or overeating: Several days 6. Feeling bad about yourself -- or that you are a failure or have let yourself or your family down: Several days 7. Trouble concentrating on things, such as reading the newspaper or watching television: Not at all 8. Moving or speaking so slowly that other people could have noticed. Or the opposite - being so fidgety or restless that you have been moving around a lot more than usual: Not at all 9. Thoughts that you would be better off , or of hurting yourself in some way: Not at all How difficult have these problems made it for you to do your work, take care of things at home, or get along with other people?: Somewhat difficult Total Score: 4 Self-Efficacy 30-Day Re-eval Assessment We would like to know how confident you are in doing certain activities. Please select your confidence level for:: Select your confidence level for the following using the scale 1-10 where 1 is not at all confident and 10 is totally confident. Your score is the average of all 6 responses. Fatigue: How confident are you that you can keep the fatigue caused by your disease from interfering with the things you want to do? Select Number: 6 Physical Discomfort or Pain: How confident are you that you can keep the physical discomfort or pain of your disease from interfering with the things you want to do? Select Number: 9 Emotional Distress: How confident are you that you can keep the emotional distress caused by your disease from interfering with the things you want to do? Select Number: 8 Other Symptoms or Health Problems: How confident are you that you can keep other symptoms or health problems from interfering with the things you want to do? Select Number: 7 Different Tasks and Activities: How confident are you that you can do the different tasks and activities needed to manage your health condition so as to reduce your need to see a doctor? Select Number: 6 Medication: How confident are you that you can do things other than just taking medication to reduce how much your illness affects your everyday life? Select Number: 7 Total Score:: 7 Nutrition Survey
[2021-04-09 09:09] VITALS: BP 140/78; BP 148/72; BMI 45.0
== END 2021-04-13 23:59 ==
LOC: CR 13:00
PROVIDERS: PCP Internal Medicine; Referring Provider Internal Medicine Cardiovascular Disease; Visit Provider Internal Medicine Cardiovascular Disease
DX: Z95.5 Presence of coronary angioplasty implant and graft (principal)
CPT/HCPCS: 93798

== ENCOUNTER 2021-05-12 13:00 | Outpatient (RCR) | payer MEDICARE, BC, SELFPAY ==
[2021-04-09 09:09] VITALS: BMI 45.0
[2021-04-14 00:17] VITALS: BP 140/78; BP 148/72; BMI 43.6
--- NOTE | 2021-05-10 07:17 | CR.ITP_ITS ---
Diagnosis Exercise - 60-day Assessment - Visit Date of Eval: 05/10/21 Session #:: 21 - Physician Prescribed Exercise Modalities: Biodyne - Replaced with SciFit Lateral Vacuum Repairer, NuStep, SciFit Frequency: 3x/week for 12 weeks [36 sessions] Intensity: 60-80% of age predicted maximum heart rate reserve Current METSs:: 2.5 unchanged due to her knees Target Heart Rate:: 94-133 Current RPE:: 13 Maximum Excercise HR:: 87 Resting Blood Pressure: 122/60 Maximum Exercise Blood Pressure: 124/72 EKG Type: NSR/BBB with a rare PAC and PVC - Outcomes & Goals Goals:: Verbalizes understanding of THR, RPE & goal METS by session 6, Documents in home exercise log/reports 30 min aerobic 5 day/wk by DC, Demonstrates accurate pulse taking by DC - Intervention & Plan Exercise Program Goals: Instruct on personal THR & RPE, Instruct on MET level & personal MET goal, Show patient to take own pulse /validate performance until accurate, Instruct on home exercise - 30-day Reassessments 30 day Reassessments:: Not Met - Goal was to meet 5 METs but due to her knee pain she was unable to accomplish this goal. - Physical Activity Home Exercise Physical Activity - Home Exercise: Safe Exercise, Warm-up, Self-monitoring, Cool-Down, Home Exercise > 30 min Daily, Sitting Time <3 hours/daily - Outcomes & Goals Outcomes/Goals: Demonstrates correct Warm-up/exercise Cool-Down (S3) if = 2.5 METs, Verbalizes symptoms of exercise intolerance by Session 3 (S3), Demonstrate safe equipment use (S3) & follows exercise prescrition (6) - Intervention & Plan Plan/Intervention: Instruct warm-up & cool-down if exercising at > 2 METs, Instruct on symptoms of exercise intolerance & actions to take, Instruct & monitor on saf, Assess intial functional capacity & safety risk - 30-day Reassessments 30 day Reassessments:: Met Nutrition - Initial Assessment Nutrition - 30-Day Assessment Nutrition - 60-Day Assessment - Program Goals Nutrition Program Goals: LDL <100 optimal. 100 - 129 Near optimal. 130 - 159 Borderline High. 160 - 189 High. Total Cholesterol <200 desirable. 200 - 239 Borderline High. >/= 240 High. HDL < 40 Low >/=60 High. Triglycerides <150 desirable. <199 optimal. VlDL 5 - 40. HgbA1C <7%. BMI <25 Patient has diagnosis of Hyperlipidemia (ICD E78)?: Yes - Visit Date of Assessment:: 05/10/21 Session #:: 21 - Cholesterol/Lipids Triglycerides (mg/dL): 106 Total Cholesterol (mg/dL): 180 LDL Cholesterol (mg/dL): 102 HDL Cholesterol (mg/dL): 57 Determine presence & major risk factors that modify LDL goal: Hypertension or hypertensive medication, Family history of premature CHD in Male < 55 years: female <65 yearsFa, Age men > 45 years; women >/= 55 years Outcomes/Goals: Pt IDs own risk factors & lifestyle modifications by Session 10, Verbalizes symptoms of angina & response by session 3., Pt independently manages Intervention/Plan: Instruct on personal lipid levels & lipid goals/NCEP guidelines, Instruct on cholesterol Referral to dietitian:: Yes - Diabetic & Medical Nutrition Therapy, Why Weight 30-day Reassessments:: Met - Diabetes (Other Core Measures) Diabetes Type: Diagnosis Type II ICD-10 E11 Fasting blood glucose:: 172 Insulin dependent injection/pump?: Yes Non-Insulin Dependent?: Yes Do you monitor your blood sugar at home?: Yes Outcomes/Goals:: Able to state symptoms of, Able to state, Able to state Intervention/Plan:: Instruct on, Refer to, Instruct on 30-day Reassessments:: Progressing - Weight Mgt (Other Care) Not Applicable: No Height: 5 ft 8 in Weight:: 294 lb - weight unchanged BMI: 44.6 Diagnosis Overweight/Obesity BMI> 30% ICD-10 E66: Yes Diagnosis High BMI/Morbid Obesity BMI> 35% ICD-10 Z68: Yes Outcomes/Goals: Pt sets, maintains & shows weight loss goal & trend during rehab Intervention/Plan: Instruct on ideal BMI & set weight loss goal w/patient, Assist pt to ID & incorporate diet changes for weight loss by S9, Refer to Structured Weight Loss program as appropriate, Encourage goal of using 250- 300dcal per session for weight loss 30 day Reassessments:: Not Met - no weight loss in 60 days. - Healthy Eating Habits Will attend diet classes:: Yes Outcomes/Goals:: Consume diet rich in vegs,fruits,whole grain/high fib er,fish,lean meat, Limit sat/trans fats,cholesterol & added salts & sugars Intervention/Plan:: Assess current eating habits 30-day Reassessments:: Progressing - Education Gave educational materials for:: Signs & symptoms of hypoglycemia, Signs & symptoms of hyperglycemia, Relate diabetes to coronary artery disease, Healthy eating Nutrition - 90-Day Assessment Nutrition - Final Assessment Medical - Initial Assessment Medical- 30-Day Assessment Medical- 60-Day Assessment - Visit Date of Eval: 05/10/21 Session #:: 21 - Medication Compliance Preventative Medication(s):: Aspirin, JESSIE inhibitor, Ticagrelor/P2Y12 inhibitor, Statin/lipid, Beta kendall H/O mental health issues: depression, anxiety, or addiction?: No Doesn?t believe in the benefits of treatment?: No Believes medications are unnecessary or harmful?: No Has a concern about medication side effects?: No Expresses concern over the cost of medications?: No Outcomes/Goals: Verbalizes medications,desired effect & common side effects @ DC, Pt self-reports following medication regimen, Keeps card in wallet w/medications listed by DC Interventions/plans: Instruct on medication effects & side effects, Review medication list w/patient every two weeks, Instruct importance of taking meds as ordered & assist problem solving 30-day Reassessments:: Met - Tobacco Use Tobacco Use: Non-smoker - Hypertension Hypertension Diagnosis:: Hypertension ICD-10 I10 Resting Blood Pressure:: 122/60 [place] [employer] Hypertension Guidelines: [place] [employer] Hypertension Guidelines. Normal BP Less than 120/80. Elevated BP 120/80. Hypertension Stage 1: BP 130-139/80-89. Hypertesnion Stage 2: BP 140 or higher/90 or higher. Hypertension Crisis: BP higher than 180/120 Peak Exercise Blood Pressure:: 124/72 Outcomes/Goals: Able to verbalize/achieve optimal blood pressure <130/80, Incorporates diet changes & exercise for blood pressure control by DC Interventions/plan: Instruct on optimal blood pressure, hypertension & medications, Instruct on effects of sodium, alcohol, stress, exercise &hyper tension 30 day Reassessments:: Met - Tobacco Cessation Referral Smoking Cessation Referral:: No Individual Education/Counseling:: No Education Schedule Given:: Yes Medical- 90-Day Assessment Medical - Final Assessment Psychosocial - Initial Assess Psychosocial - 30-Day Assess Psychosocial - 60-Day Assess - VIsit Date of Eval: 05/10/21 Session #:: 21 Not Applicable: Yes History of previous Mental disease:: No - Psychosocial Test Tool Used:: PHQ-9 Questionnaire phq-9 Severity: Severity. 1-4 Minimal Depression. 5-9 Mild Depression. 10-14 Moderate Depression. 15-19 Moderately Sever Depression. 20-27 Severe Depression. Rule: - Referral to Behavioral Health PS - Interventions: Yes Attend Stress Management Classes, No Referral to Behavioral Health if PHQ-9 score >9:, No Referral to [facility], No Referral to Physician if PHQ-9 if score is 5-9: - Outcomes/Goals: See list Psychosocial Outcomes/Goals:: ID's personal stressors & 2 strategies to manage stress by discharge - Intervention/Plan: See List Interventions/Plan:: Assess stressors,coping strategies & signs of derpression on admission, Instruct/assist pt to develop coping & personal stress Mgt strategies, Instruct patient to recognize signs & symptoms of depression, Ins truct patient to recog - 30-day Reassessments: 30 day Reassessments:: Progressing Psychosocial - 90-Day Assess Psychosocial - Final Assessmen Patient Health Questionnaire 60-Day Re-eval Assessment 1. Little interest or pleasure in doing things: Not at all 2. Feeling down, depressed, or hopeless: Not at all 3. Trouble falling or staying asleep, or sleeping too much: Not at all 4. Feeling tired or having little energy: Several days 5. Poor appetite or overeating: Not at all 6. Feeling bad about yourself -- or that you are a failure or have let yourself or your family down: Several days 7. Trouble concentrating on things, such as reading the newspaper or watching television: Not at all 8. Moving or speaking so slowly that other people could have noticed. Or the opposite - being so fidgety or restless that you have been moving around a lot more than usual: Not at all Total Score: 2 Self-Efficacy 60-Day Re-eval Assessment We would like to know how confident you are in doing certain activities. Please select your confidence level for:: Select your confidence level for the following using the scale 1-10 where 1 is not at all confident and 10 is totally confident. Your score is the average of all 6 responses. Fatigue: How confident are you that you can keep the fatigue caused by your disease from interfering with the things you want to do? Select Number: 7 Physical Discomfort or Pain: How confident are you that you can keep the physical discomfort or pain of your disease from interfering with the things you want to do? Select Number: 10 Emotional Distress: How confident are you that you can keep the emotional distress caused by your disease from interfering with the things you want to do? Select Number: 9 Other Symptoms or Health Problems: How confident are you that you can keep other symptoms or health problems from interfering with the things you want to do? Select Number: 8 Different Tasks and Activities: How confident are you that you can do the different tasks and activities needed to manage your health condition so as to reduce your need to see a doctor? Select Number: 7 Medication: How confident are you that you can do things other than just taking medication to reduce how much your illness affects your everyday life? Select Number: 8 Total Score:: 8 Nutrition Survey
[2021-05-10 07:31] VITALS: BP 122/60; BP 124/72; BMI 44.6
== END 2021-05-13 23:59 ==
LOC: CR 13:00
PROVIDERS: PCP Internal Medicine; Referring Provider Internal Medicine Cardiovascular Disease; Visit Provider Internal Medicine Cardiovascular Disease
DX: Z95.5 Presence of coronary angioplasty implant and graft (principal); I10 Essential (primary) hypertension; E78.5 Hyperlipidemia, unspecified; E66.01 Morbid (severe) obesity due to excess calories; Z68.41 Body mass index [BMI] 40.0-44.9, adult; E11.9 Type 2 diabetes mellitus without complications
CPT/HCPCS: 93798

== ENCOUNTER 2021-06-11 13:00 | Outpatient (RCR) | payer MEDICARE, BC, SELFPAY ==
[2021-05-10 07:31] VITALS: BMI 44.6
[2021-05-14 00:13] VITALS: BP 122/60; BP 124/72; BMI 43.6
--- NOTE | 2021-05-17 13:09 | EKG12_ITS ---
Test Reason : AFIB Blood Pressure : / mmHG Vent. Rate : 090 BPM Atrial Rate : 090 BPM P-R Int : 260 ms QRS Dur : 136 ms QT Int : 372 ms P-R-T Axes : 067 -26 100 degrees QTc Int : 455 ms Sinus rhythm with 1st degree A-V block Left bundle branch block Abnormal ECG Confirmed by SHANDA ADAIR, PAOLO ([id number]), editor & co founder ANKUSH COLLIER ([id number]) on 05/18/2021 7:58:16 AM Referred By: Paolo Fitch Confirmed By:PAOLO FITCH MD
[2021-05-17 15:26] LABS: BNP,B-Type NATRIURETIC PEPTIDE 96.7 pg/mL (0-100)
[2021-05-17 15:32] LABS: Troponin-I HS 9 pg/mL (3.0-54.0)
--- NOTE | 2021-06-07 07:08 | CR.ITP_ITS ---
Diagnosis Exercise - 90-day Assessment - Visit Date of Eval: 06/07/21 Session #:: 33 - Patient missed 8 of her 36 scheduled sessions. - Physician Prescribed Exercise Modalities: NuStep Frequency: 3x/week for 12 weeks [36 sessions] Intensity: 60-80% of age predicted maximum heart rate reserve Current METSs:: 2.5 unchanged per patient, stated she could not do higher workloads. Current RPE:: 13-14 Maximum Excercise HR:: 85 Resting Blood Pressure: 130/62 Maximum Exercise Blood Pressure: 130/50 EKG Type: NSR w/BBB first degree block, rare PAC. Occasional burst of PAT - Outcomes & Goals Goals:: Verbalizes understanding of THR, RPE & goal METS by session 6, Documents in home exercise log/reports 30 min aerobic 5 day/wk by DC, Demonstrates accurate pulse taking by DC - Intervention & Plan Exercise Program Goals: Instruct on personal THR & RPE, Instruct on MET level & personal MET goal, Show patient to take own pulse /validate performance until accurate, Instruct on home exercise - 30-day Reassessments 30 day Reassessments:: Met - Physical Activity Home Exercise Physical Activity - Home Exercise: Safe Exercise, Warm-up, Self-monitoring, Cool-Down, Home Exercise > 30 min Daily, Sitting Time <3 hours/daily - Outcomes & Goals Outcomes/Goals: Demonstrates correct Warm-up/exercise Cool-Down (S3) if = 2.5 METs, Verbalizes symptoms of exercise intolerance by Session 3 (S3), Demonstrate safe equipment use (S3) & follows exercise prescrition (6) - Intervention & Plan Plan/Intervention: Instruct warm-up & cool-down if exercising at > 2 METs, Instruct on symptoms of exercise intolerance & actions to take, Instruct & monitor on saf, Assess intial functional capacity & safety risk - 30-day Reassessments 30 day Reassessments:: Met Nutrition - Initial Assessment Nutrition - 30-Day Assessment Nutrition - 60-Day Assessment Nutrition - 90-Day Assessment - Program Goals Nutrition Program Goals: LDL <100 optimal. 100 - 129 Near optimal. 130 - 159 Borderline High. 160 - 189 High. Total Cholesterol <200 desirable. 200 - 239 Borderline High. >/= 240 High. HDL < 40 Low >/=60 High. Triglycerides <150 desirable. <199 optimal. VlDL 5 - 40. HgbA1C <7%. BMI <25 Patient has diagnosis of Hyperlipidemia (ICD E78)?: Yes - Visit Date of Assessment:: 06/07/21 - no updated labs drawn - Cholesterol/Lipids Determine presence & major risk factors that modify LDL goal: Hypertension or hypertensive medication, Family history of premature CHD in Male < 55 years: female <65 yearsFa, Age men > 45 years; women >/= 55 years Outcomes/Goals: Pt IDs own risk factors & lifestyle modifications by Session 10, Verbalizes symptoms of angina & response by session 3., Pt independently manages Intervention/Plan: Instruct on personal lipid levels & lipid goals/NCEP guidelines, Instruct on cholesterol Referral to dietitian:: No 30-day Reassessments:: Progressing - Diabetes (Other Core Measures) Diabetes Type: Diagnosis Type II ICD-10 E11 Fasting blood glucose:: 167 Insulin dependent injection/pump?: Yes Non-Insulin Dependent?: Yes Do you monitor your blood sugar at home?: Yes Referral to Diabetic Clinic:: Yes Outcomes/Goals:: Able to state symptoms of, Able to state, Able to state Intervention/Plan:: Instruct on, Instruct on 30-day Reassessments:: Progressing - Weight Mgt (Other Care) Not Applicable: No Height: 5 ft 8 in Weight:: 296 lb BMI: 45.0 Diagnosis Overweight/Obesity BMI> 30% ICD-10 E66: Yes Diagnosis High BMI/Morbid Obesity BMI> 35% ICD-10 Z68: Yes Outcomes/Goals: Pt sets, maintains & shows weight loss goal & trend during rehab Intervention/Plan: Instruct on ideal BMI & set weight loss goal w/patient, Assist pt to ID & incorporate diet changes for weight loss by S9, Encourage goal of using 250-300dcal per session for weight loss 30 day Reassessments:: Not Met - Patient made no progress in reducing her weight over the 12 weeks, patient declined participation in Nutritional Services and/or Weight Loss Program. Nutrition - Final Assessment Medical - Initial Assessment Medical- 30-Day Assessment Medical- 60-Day Assessment Medical- 90-Day Assessment - Visit Date of Eval: 06/07/21 Session #:: 33 - Medication Compliance Preventative Medication(s):: Aspirin, Ticagrelor/P2Y12 inhibitor, Statin/lipid H/O mental health issues: depression, anxiety, or addiction?: No Doesn?t believe in the benefits of treatment?: No Believes medications are unnecessary or harmful?: No Has a concern about medication side effects?: No Expresses concern over the cost of medications?: No Outcomes/Goals: Verbalizes medications,desired effect & common side effects @ DC, Pt self-reports following medication regimen, Keeps card in wallet w/medications listed by DC Interventions/plans: Instruct on medication effects & side effects, Review medication list w/patient every two weeks, Instruct importance of taking meds as ordered & assist problem solving 30-day Reassessments:: Progressing - Tobacco Use Tobacco Use: Non-smoker - Hypertension Hypertension Diagnosis:: Hypertension ICD-10 I10 Resting Blood Pressure:: 118/54 [place] [employer] Hypertension Guidelines: [place] [employer] Hypertension Guidelines. Normal BP Less than 120/80. Elevated BP 120/80. Hypertension Stage 1: BP 130-139/80-89. Hypertesnion Stage 2: BP 140 or higher/90 or higher. Hypertension Crisis: BP higher than 180/120 Peak Exercise Blood Pressure:: 142/68 Outcomes/Goals: Able to verbalize/achieve optimal blood pressure <130/80, Incorporates diet changes & exercise for blood pressure control by DC Interventions/plan: Instruct on optimal blood pressure, hypertension & medications, Instruct on effects of sodium, alcohol, stress, exercise &hypertension 30 day Reassessments:: Progressing - Tobacco Cessation Referral Smoking Cessation Referral:: No Individual Education/Counseling:: No Education Schedule Given:: Yes - Patient had access to [employer], [employer] and printed workbook Medical - Final Assessment Psychosocial - Initial Assess Psychosocial - 30-Day Assess Psychosocial - 60-Day Assess Psychosocial - 90-Day Assess - VIsit Date of Eval: 06/07/21 Session #:: 33 Not Applicable: Yes History of previous Mental disease:: No - Psychosocial Test Tool Used:: PHQ-9 Questionnaire phq-9 Severity: Severity. 1-4 Minimal Depression. 5-9 Mild Depression. 10-14 Moderate Depression. 15-19 Moderately Sever Depression. 20-27 Severe Depression. Rule: - Referral to Behavioral Health PS - Interventions: Yes Attend Stress Management Classes, No Referral to Behavioral Health if PHQ-9 score >9:, No Referral to [facility], No Referral to Physician if PHQ-9 if score is 5-9: - Outcomes/Goals: See list Psychosocial Outcomes/Goals:: ID's personal stressors & 2 strategies to manage stress by discharge - Intervention/Plan: See List Interventions/Plan:: Assess stressors,coping strategies & signs of derpression on admission, Instruct/assist pt to develop coping & personal stress Mgt strategies, Instruct patient to recognize signs & symptoms of depression, Instruct patient to recog - 30-day Reassessments: 30 day Reassessments:: Progressing Psychosocial - Final Assessmen Patient Health Questionnaire 90-Day Re-eval Assessment 1. Little interest or pleasure in doing things: Not at all 2. Feeling down, depressed, or hopeless: Not at all 3. Trouble falling or staying asleep, or sleeping too much: Not at all 4. Feeling tired or having little energy: Several days 5. Poor appetite or overeating: Not at all 6. Feeling bad about yourself -- or that you are a failure or have let yourself or your family down: Several days 7. Trouble concentrating on things, such as reading the newspaper or watching television: Several days 8. Moving or speaking so slowly that other people could have noticed. Or the opposite - being so fidgety or restless that you have been moving around a lot more than usual: Not at all 9. Thoughts that you would be better off , or of hurting yourself in some way: Not at all How difficult have these problems made it for you to do your work, take care of things at home, or get along with other people?: Not difficult at all Total Score: 3 Self-Efficacy 90-Day Re-eval Assessment We would like to know how confident you are in doing certain activities. Please select your confidence level for:: Select your confidence level for the following using the scale 1-10 where 1 is not at all confident and 10 is totally confident. Your score is the average of all 6 responses. Fatigue: How confident are you that you can keep the fatigue caused by your disease from interfering with the things you want to do? Select Number: 7 Physical Discomfort or Pain: How confident are you that you can keep the physical discomfort or pain of your disease from interfering with the things you want to do? Select Number: 9 Emotional Distress: How confident are you that you can keep the emotional distress caused by your disease from interfering with the things you want to do? Select Number: 9 Other Symptoms or Health Problems: How confident are you that you can keep other symptoms or health problems from interfering with the things you want to do? Select Number: 8 Different Tasks and Activities: How confident are you that you can do the different tasks and activities needed to manage your health condition so as to reduce your need to see a doctor? Select Number: 7 Medication: How confident are you that you can do things other than just taking medication to reduce how much your illness affects your everyday life? Select Number: 8 Total Score:: 8 Nutrition Survey
[2021-06-07 07:20] VITALS: BP 118/54; BP 130/62; BP 142/68; BMI 45.0
== END 2021-06-13 23:59 ==
LOC: CR 13:00
PROVIDERS: PCP Internal Medicine; Referring Provider Internal Medicine Cardiovascular Disease; Visit Provider Internal Medicine Cardiovascular Disease
DX: R06.00 Dyspnea, unspecified (principal); R94.39 Abnormal result of other cardiovascular function study; Z95.5 Presence of coronary angioplasty implant and graft
CPT/HCPCS: 36415; 83880; 84484; 93005; 93798

== ENCOUNTER → 2021-07-27 15:24 | Outpatient (CLI) | payer MEDICARE, BC, SELFPAY ==
[2021-06-07 07:20] VITALS: BMI 45.0
--- NOTE | 2021-07-27 15:46 | RAD_ITS ---
STUDY: X-RAY CHEST REASON FOR EXAM: Female, 75 years old. FINNEY TECHNIQUE: PA and lateral views of the chest. COMPARISON: 02/22/2021 FINDINGS: The lungs are clear and expanded. There is no demonstrated pleural abnormality. Normal size heart. Normal mediastinum and warner. Normal visualized pulmonary arteries. There is atherosclerotic calcification of the aortic arch with tortuosity. There are diffuse degenerative changes of the visualized thoracic spine. Normal visualized ribs, clavicles, and shoulders. There is no demonstrated abnormality of the visualized soft tissue structures of the upper abdomen. RAD/Chest PA and Lateral IMPRESSION: No acute cardiopulmonary process. Stable. Electronically Signed: Surendra Barrera MD ([place]) at 8:18 EST , Service support ,
[2021-07-27 17:21] LABS: Absolute Lymphocyte Count 1.14 X10^3/uL (0.83-4.51); Absolute Neutrophil Count 4.1 X10^3/uL (2.0-7.7); Basophil# 0.02 X10^3/uL; Basophil% 0.3 % (0-1); Eosinophil# 0.17 X10^3/uL; Eosinophils% 2.9 % (0-5); Hematocrit 38.8 % (37-47); Hemoglobin 12.2 g/dL (12.0-15.0); Lymphocyte # 1.14 X10^3/ul (0.83-4.51); Lymphocyte % 19.5 % (19-41); Mean Corp Hgb Conc 31.4 g/dL (32-36); Mean Corpuscular Hgb 27.4 pg (27.0-32.0); Mean Corpuscular Volume 87.2 fL (81-99); Mean Platelet Vol. 10.3 fl (6.2-12.0); Monocyte# 0.37 X10^3/uL; Monocyte% 6.3 % (0-10); NRBC Flagged by Analyzer 0 % (0-5); Neutrophil # 4.13 X10^3/uL (2.7-7.7); Neutrophil % 70.7 % (47-70); Platelet Count 245 K/mm3 (150-450); RBC Distribution Width CV 14.2 % (11.6-14.6); RBC Distribution Width SD 45.4 fl (35.1-43.9); Red Blood Count 4.45 M/mm3 (4.2-5.4); White Blood Count 5.9 K/mm3 (4.4-11.0)
[2021-07-27 18:05] LABS: BNP,B-Type NATRIURETIC PEPTIDE 36.3 pg/mL (0-100)
[2021-07-27 18:07] LABS: Anion Gap 8 (5-15); BUN 20 mg/dL (7-18); Calcium,Total 9.4 mg/dL (8.5-10.1); Chloride 102 mmol/L (98-107); Creatinine, Serum 1.05 mg/dL (0.55-1.02); EST Glomerular Filtration Rate 54 mL/min (>60); Est Glom Filt Rate - Afr Amer 66 mL/min (>60); Glucose 147 mg/dL (74-106); Sodium Level 138 mmol/L (136-145)
== END ==
PROVIDERS: PCP Internal Medicine; Visit Provider Physician Assistant Medical
DX: R06.00 Dyspnea, unspecified (principal)
CPT/HCPCS: 36415; 71046; 80048; 83880; 85025

== ENCOUNTER → 2022-04-12 | Outpatient (CLI) | payer MEDICARE, BC, SELFPAY ==
[2021-06-07 07:20] VITALS: BMI 45.0
--- NOTE | 2022-04-12 09:05 | RAD_ITS ---
PROCEDURE: Fluoroscopic guided Hip Injection DATE: 04/12/2022 INDICATION: Female, 76 years old. Chronic right hip pain. PHYSICIAN: Ed Altamirano M.D. MEDICATIONS: 80 mg of KENALOG and 3 cc of 1% LIDOCAINE. 2% lidocaine administered subcutaneously for local anesthesia. ACCESS SITE: Right hip. NEEDLE: 22-gauge spinal needle. FLUOROSCOPY TIME (if supplied): (0:36) minutes/seconds. One image was obtained. FINDINGS: The risks, benefits, and alternatives to the procedure were explained to the patient. The specific risks of bleeding, infection, and neurovascular injury were detailed and accepted. Witnessed informed consent was obtained. A 22-gauge spinal needle was positioned under radiographic fluoroscopic localization. Approximately 2 cc of ISOVUE-300 instilled for localization purposes. Medication was then injected. The patient tolerated the procedure well without any immediate complications. RAD/Inj/Asp Grady Jt Should/Hip/Knee IMPRESSION: 1. Successful fluoroscopic guided hip injection. Electronically Signed: Ed Altamirano MD at 9:53 EDT ,
[2022-04-12] MEDS: Lidocaine 2% (10 ml mdv) 10 ML Vial (09:20)
[2022-04-12] MEDS: Lidocaine 1% (20 ml mdv) 20 ML Vial 3 ML INFILT (09:25)
[2022-04-12] MEDS: Betamethasone/Betamethasone 30 MG/5 ML Vial 12 MG INTRAARTIC (09:25)
== END | disposition home or self-care (01) ==
PROVIDERS: PCP Internal Medicine
DX: M16.11 Unilateral primary osteoarthritis, right hip (principal)
CPT/HCPCS: 20610; 77002; Q9965; J0702

== ENCOUNTER → 2022-04-20 | Outpatient (CLI) | payer MEDICARE, BC, SELFPAY ==
[2021-06-07 07:20] VITALS: BMI 45.0
--- NOTE | 2022-04-20 10:07 | STRESSREP ---
Stress Test Report Pharmacologic myocardial perfusion stress test. 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 Stress protocol: Resting EKG demonstrates normal sinus rhythm with a left bundle branch block and premature ventricular complexes noted rate of 75 bpm blood pressure is 142/80 mmHg. 0.4 mg of regadenoson was infused per usual protocol followed by rapid intravenous saline flush injection continuous EKG monitoring was performed. The maximum heart rate attained was 92 bpm which was 63% of max impacted heart rate the maximum workload was 1 metabolic equivalent. At rest there were no ST or T wave changes noted to suggest abnormal flow reserve and at peak infusion nonspecific ST changes were noted with did not meet the criteria for ischemia. No clinical angina was noted. The final blood pressure was 120/70 mmHg. Myocardial perfusion protocol. 14.4 mCi of technetium 99m sestamibi was injected at rest. 0.4 mg of regadenoson was infused per usual protocol. At peak infusion 44.5 mCi of technetium 99m sestamibi was injected stress images were obtained stress and rest images were reconstructed in comparing the short axis vertical long and horizontal long axis. Perfusion SPECT analysis: Review of the stress images demonstrate normal uptake of tracer noted in all areas of the myocardium. The resting images similar demonstrate normal uptake of tracer noted in all areas of the myocardium. No areas of reversibility are noted to suggest ischemia and no previous infarct is noted. Gated SPECT analysis: Gated images were not obtained. Conclusion: Normal pharmacologic myocardial perfusion stress test.
== END | disposition home or self-care (01) ==
LOC: CVS 06:51
PROVIDERS: PCP Internal Medicine; Referring Provider Physician Assistant Medical; Visit Provider Physician Assistant Medical
DX: Z01.810 Encounter for preprocedural cardiovascular examination (principal); R06.00 Dyspnea, unspecified; I25.10 Atherosclerotic heart disease of native coronary artery without angina pectoris; I44.7 Left bundle-branch block, unspecified; I10 Essential (primary) hypertension; E78.5 Hyperlipidemia, unspecified; R00.2 Palpitations; Z95.5 Presence of coronary angioplasty implant and graft
CPT/HCPCS: 78452; 93017; A9500; A4216; J2785

== ENCOUNTER → 2022-11-29 | Outpatient (CLI) | payer MEDICARE, BC, SELFPAY ==
[2021-06-07 07:20] VITALS: BMI 45.0
--- NOTE | 2022-11-29 12:00 | RAD_ITS ---
PROCEDURE: Fluoroscopic guided Hip Injection DATE: November 29, 2022. INDICATION: Female, 77 years old. Chronic right hip pain. PHYSICIAN: Ed Altamirano M.D. MEDICATIONS: 80 mg of Kenalog and 3 cc of 1% lidocaine. 2% Lidocaine administered subcutaneously for local anesthesia. ACCESS SITE: Right hip. NEEDLE: 22-gauge spinal needle. FLUOROSCOPY TIME (if supplied): (0:42) minutes/seconds. 24.64 mGy One image was submitted. FINDINGS: The risks, benefits, and alternatives to the procedure were explained to the patient. The specific risks of bleeding, infection, and neurovascular injury were detailed and accepted. Witnessed informed consent was obtained. A 22-gauge spinal needle was positioned under venographic fluoroscopic localization. Approximately 2 cc of Isovue-300 instilled for localization purposes. Medication was then injected. The patient tolerated the procedure well without any immediate complications. RAD/Inj/Asp Grady Jt Should/Hip/Knee IMPRESSION: 1. Successful fluoroscopic guided hip injection. Electronically Signed: Ed Altamirano MD at 14:07 EDT ,
[2022-11-29] MEDS: Lidocaine 2% (5ml sdv) 5 ML VIAL.MPF INFILT (12:30)
[2022-11-29] MEDS: Triamcinolone Acetonide 40 MG/ML Vial 80 MG OPERA.SITE (12:30)
[2022-11-29] MEDS: Lidocaine 1% (5 ml sdv) 5 ML Vial 3 ML OPERA.SITE (12:30)
--- NOTE | 2022-11-29 12:30 | RAD_ITS ---
PROCEDURE: Fluoroscopic guided Hip Injection DATE: November 29, 2022. INDICATION: Female, 77 years old. Left hip pain. PHYSICIAN: Ed Altamirano M.D. MEDICATIONS: 80 mg of Kenalog and 3 cc of 1% lidocaine. 2% Lidocaine administered subcutaneously for local anesthesia. ACCESS SITE: Left hip. NEEDLE: 22-gauge spinal needle. FLUOROSCOPY TIME (if supplied): (0:41) minutes/seconds. 16.42 mGy. One image was submitted. FINDINGS: The risks, benefits, and alternatives to the procedure were explained to the patient. The specific risks of bleeding, infection, and neurovascular injury were detailed and accepted. Witnessed informed consent was obtained. A 22-gauge spinal needle was positioned under radiographic fluoroscopic localization. Approximately 2 cc of Isovue-300 instilled for localization purposes. Medication was then injected. The patient tolerated the procedure well without any immediate complications. RAD/Inj/Asp Grady Jt Should/Hip/Knee IMPRESSION: 1. Successful fluoroscopic guided hip injection. Electronically Signed: Ed Altamirano MD at 14:09 EDT ,
== END | disposition home or self-care (01) ==
LOC: RAD 11:42
PROVIDERS: PCP Internal Medicine
DX: M16.11 Unilateral primary osteoarthritis, right hip (principal); M16.12 Unilateral primary osteoarthritis, left hip
CPT/HCPCS: 20610; 77002; Q9967

== ENCOUNTER → 2023-10-06 | Outpatient (CLI) | payer MEDICARE, BC, SELFPAY ==
[2021-06-07 07:20] VITALS: BMI 45.0
[2023-10-06 12:37] LABS: Absolute Lymphocyte Count 1.11 X10^3/uL (0.83-4.51); Absolute Neutrophil Count 2.7 X10^3/uL (2.0-7.7); Basophil# 0.03 X10^3/uL; Basophil% 0.7 % (0-1); Eosinophil# 0.12 X10^3/uL; Eosinophils% 2.8 % (0-5); Hematocrit 42.3 % (37-47); Hemoglobin 13.6 g/dL (12.0-15.0); Lymphocyte # 1.11 X10^3/ul (0.83-4.51); Lymphocyte % 25.5 % (19-41); Mean Corp Hgb Conc 32.2 g/dL (32-36); Mean Corpuscular Hgb 28.4 pg (27.0-32.0); Mean Corpuscular Volume 88.3 fL (81-99); Monocyte# 0.34 X10^3/uL; Monocyte% 7.8 % (0-10); NRBC Flagged by Analyzer 0 % (0-5); Neutrophil # 2.72 X10^3/uL (2.7-7.7); Neutrophil % 62.5 % (47-70); Platelet Count 205 K/mm3 (150-450); RBC Distribution Width SD 45.2 fl (35.1-43.9); Red Blood Count 4.79 M/mm3 (4.2-5.4); White Blood Count 4.4 K/mm3 (4.4-11.0)
[2023-10-06 12:59] LABS: BNP,B-Type NATRIURETIC PEPTIDE 58.8 pg/mL (0-100)
[2023-10-06 13:03] LABS: Anion Gap 3 (5-15); BUN 17 mg/dL (7-18); BUN/Creat Ratio 18.9 RATIO (10-20); Calcium,Total 9.7 mg/dL (8.5-10.1); Chloride 108 mmol/L (98-107); EST Glomerular Filtration Rate 65 mL/min (>60); Est Glom Filt Rate - Afr Amer 78 mL/min (>60); Glucose 93 mg/dL (74-106); Potassium 4.6 mmol/L (3.5-5.1); Sodium Level 141 mmol/L (136-145)
== END | disposition home or self-care (01) ==
LOC: LAB 11:41
PROVIDERS: Nurse Practitioner Gerontology; PCP Internal Medicine; Referring Provider Nurse Practitioner Family; Visit Provider Nurse Practitioner Family
DX: R06.09 Other forms of dyspnea (principal)
CPT/HCPCS: 36415; 80048; 83880; 85025

== ENCOUNTER → 2023-11-13 | Outpatient (CLI) | payer MEDICARE, BC, SELFPAY ==
[2021-06-07 07:20] VITALS: BMI 45.0
--- NOTE | 2023-11-13 06:23 | ECHOD_ITS ---
Reason For Study: DYSPNEA Procedure This was a 2D Doppler, Color Flow transthoracic echocardiogram. Exam performed in department. Left Ventricle Normal LV size. Left ventricular systolic function is normal. The estimated ejection fraction is 65 %. Stage 1 diastolic dysfunction. No regional wall motion abnormalities noted. Right Ventricle Normal RV size. Normal systolic function. Atria The left atrium is mildly enlarged. Normal right atrium. Mitral Valve There is moderate mitral annular calcification. Mild (1+) eccentric mitral valve insufficiency. Tricuspid Valve Normal tricuspid valve. Aortic Valve Trisinus/trileaflet aortic valve. Mild focal aortic valve calcification. Pulmonic Valve Normal pulmonic valve. Great Vessels Normal aortic root. The pulmonary artery is normal size. Inferior vena cava collapse with respiration. Pericardium/Pleural No pericardial effusion. MMode/2D Measurements & Calculations LVIDd: 4.3 cm IVSd: 1.4 cm Ao root diam: 3.5 cm LVIDs: 3.1 cm LVPWd: 1.1 cm FS: 28.2 % LAV(MOD-bp): 68.7 ml LVAd ap4: 30.5 cm2 SV(MOD-sp4): 58.5 ml LAV(MOD-bp) Indexed: 29.6 ml/m2 LVLd ap4: 8.5 cm LAV(MOD-sp2): 76.4 ml EDV(MOD-sp4): 89.0 ml LAV(MOD-sp4): 58.6 ml EDV(sp4-el): 92.7 ml LVAs ap4: 15.3 cm2 LVLs ap4: 6.6 cm ESV(MOD-sp4): 30.5 ml ESV(sp4-el): 30.3 ml EF(MOD-sp4): 65.8 % EF(sp4-el): 67.3 % SV(sp4-el): 62.4 ml LA A4 area: 20.4 cm2 LA dimension(2D): 4.5 cm RA A4 area: 14.6 cm2 Time Measurements MV dec time: 0.30 sec Doppler Measurements & Calculations MV E max wade: 111.4 cm/sec Lat Peak E' Wade: 9.7 cm/sec Med Peak E' Wade: 7.3 cm/sec MV A max wade: 135.6 cm/sec E/E' lat: 11.5 E/E' med: 15.4 MV E/A: 0.82 MV V2 max: 147.3 cm/sec Ao V2 max: 171.9 cm/sec MV max P.7 mmHg MV dec slope: 375.4 cm/sec2 Ao max P.8 mmHg MV V2 mean: 88.8 cm/sec Ao V2 mean: 115.4 cm/sec MV mean P.7 mmHg Ao mean P.2 mmHg MV V2 VTI: 45.4 cm Ao V2 VTI: 41.9 cm AV (velocity ratio): 0.80 LV V1 max: 130.7 cm/sec PA V2 max: 119.7 cm/sec LV V1 max P.8 mmHg PA V2 mean: 87.2 cm/sec LV V1 mean P.3 mmHg LV V1 mean: 96.3 cm/sec LV V1 VTI: 33.3 cm ECHO/Echo Complete Interpretation Summary Normal LV size. Left ventricular systolic function is normal. The estimated ejection fraction is 65 %. Stage 1 diastolic dysfunction. Ordering Physician: Payton Bruno Referring Physician: Payton Bruno Performed By: Lazara Longo RCS
--- NOTE | 2023-11-13 10:10 | STRESSREP ---
Stress Test Report Pharmacologic myocardial perfusion stress test. 78-year-old lady with a history of dyspnea on exertion Resting EKG demonstrates sinus rhythm with a left bundle branch block with a rate of 61 bpm. Resting blood pressure is 138/82 mmHg. 0.4 mg of regadenoson was infused per usual protocol followed by rapid intravenous saline flush injection. Continuous EKG monitoring was performed. The maximum heart rate was 85 bpm which was 59% of max impacted heart rate the maximum workload was 1 metabolic equivalent. At rest there were no ST or T wave changes noted to suggest ischemia and at peak infusion nonspecific ST changes were noted which did not meet the criteria for ischemia. No clinical angina is noted. The final blood pressure was 126/68 mmHg. Myocardial perfusion protocol. 15 mCi of technetium 99m sestamibi was injected at rest. 0.4 mg of regadenoson was infused per usual protocol. At peak infusion 44.8 mCi of technetium 99m sestamibi was injected stress images were obtained stress and rest images were reconstructed and compared in the short axis vertical long and horizontal long axis. Gated images were also obtained. Perfusion SPECT analysis: Review of the stress images demonstrate normal uptake of tracer noted in all areas of the myocardium. The resting images similar demonstrated normal uptake of tracer noted in all areas of the myocardium. No areas of reversibility are noted to suggest ischemia and no previous infarct is noted. Gated SPECT analysis: The gated ejection fraction is 76%. Conclusion: Normal pharmacologic myocardial perfusion stress test. Preserved ejection fraction.
== END | disposition home or self-care (01) ==
LOC: CVS 06:22
PROVIDERS: PCP Internal Medicine; Referring Provider Nurse Practitioner Gerontology; Visit Provider Nurse Practitioner Gerontology
DX: R06.00 Dyspnea, unspecified (principal); I44.7 Left bundle-branch block, unspecified; I25.10 Atherosclerotic heart disease of native coronary artery without angina pectoris
CPT/HCPCS: 78452; 93017; 93306; A9500; A4216; J2785

== ENCOUNTER → 2025-07-09 | Outpatient (CLI) | payer MEDICARE, SELFPAY ==
[2021-06-07 07:20] VITALS: BMI 45.0
--- OUTSIDE RECORDS SUMMARY | 2025-07-09 06:46 | XMS RPT_ITS | CCD ---
Author Organization [facility] Care Team Providers Care Core Winder Name Role Phone HOLLIE STANFORD Attending Unavailable HOLLIE STANFORD Primary Care Unavailable HOLLIE STANFORD Admitting Unavailable Paolo Fitch MD Primary Care Provider Helen Chapa MD Primary Care Provider Roman Knott RN, MD, Chitra Primary Care Provider Roman Knott RN Unavailable Dr. Helen Fajardo Primary Care Provider Dr. Helen Chapa Referring Provider TONO Long Attending Provider Damion TITUS, ZEYNEP Cain Attending Provider TONO Long Referring Provider TONO Long Other Provider Dr. Paolo Fitch Attending Provider Hedy Owens RN, Dr. Chitra Primary Care Provider Dr. Helen Chapa Referring Provider Damion TITUS, ZEYNEP Cain Attending Provider TONO Long Referring Provider TONO Long Other Provider Dr. Paolo Fitch Attending Provider Helen Chapa MD Primary Care Provider Hedy Owens RN, Dr. Chitra Primary Care Provider Dr. Helen Chapa Referring Provider Dr. Paolo Fitch Attending Provider Sammi ADAIR, Helen Primary Care Provider Marco Hernandez MD Unavailable Christiano Loya PA-C Unavailable Shantel PT, Leonor Unavailable Roman HUMPHREYS, Hedy Fernández Unavailable Unavailabl e Shantel PT, Leonor Unavailable SAMIRA SNOW Referring Unavailable SAMMI, HELEN Primary Care Unavailable DILLON CARRASQUILLO Consulting Unavailable MARCO HERNANDEZ Attending Unavailable MARCO HERNANDEZ Admitting Unavailable GANRAIZA, HELEN Primary Care Unavailable Shantel PT, Leonor Unavailable Dr. Helen Chapa Primary Care Provider Dr. Helen Chapa Referring Provider Damion [employer], [employer]-C Payton Attending Provider Dr. Helen Chapa Primary Care Provider Dr. Helen Chapa Referring Provider Damion [employer], [employer] [place] Attending Provider Damion [employer], [employer] [place] Referring Provider Damion [employer], [employer]-C [place] Other Provider Dr. 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, Екатерина Unavailable Suzy Calix PA-C Unavailable Ganta, Helen Primary Care Unavailable Damion [employer], Payton Attending Unavailable Ganta, Helen Referring Unavailable Damion [employer], Payton Attending Unavailable Ganta, Helen Referring Unavailable Ganta, Helen Primary Care Unavailable GANTA, HELEN Primary Care Unavailable GANTA, HELEN Primary Care Unavailable RADHA HIGH Attending Unavailable ALEXANDRIA PATTON Attending Unavailable GANTA, HELEN Primary Care Unavailable GANTA, HELEN Primary Care Unavailable GANTA, HELEN Referring Unavailable ANILARADHA Attending Unavailable GANTA, HELEN Primary Care Unavailable ANILARADHA ARGUETA Attending Unavailable GANTA, HELEN Primary Care Unavailable TESTRAKE, ANDERSON Referring Unavailable TESTRAKE, ANDERSON Attending Unavailable DOUGIE, ALTAGRACIA Referring Unavailable GANTA, HELEN Primary Care Unavailable VETOVITZ, LETY Referring Unavailable GANTA, HELEN Primary Care Unavailable THAI ADAME Attending Unavailable ЕКАТЕРИНА ESCALANTE Attending Unavailable GANTA, HELEN Primary Care Unavailable SELF Referring Unavailable GANTA, HELEN Primary Care Unavailable OLDER, ЕКАТЕРИНА Referring Unavailable GANTA, HELEN Primary Care Unavailable RADHA HIGH Attending Unavailable GANTA, HELEN Primary Care Unavailable ANILARADHA ARGUETA Attending Unavailable GANTA, HELEN Primary Care Unavailable TESTRAKE, ANDERSON Referring Unavailable HOLLIE BLEVINS JR Attending Unavailable GANTA, HELEN Primary Care Unavailable GANTA, HELEN Primary Care Unavailable RADHA HIGH Attending Unavailable GANTA, HELEN Primary Care Unavailable TESTRAKE, ANDERSON Referring Unavailable GANTA, HELEN Primary Care Unavailable TESTRAKE, ANDERSON Referring Unavailable TESTRAKE, ANDERSON Attending Unavailable GANTA, HELEN Primary Care Unavailable OLDERЕКАТЕРИНА Attending Unavailable DOUGIE ALTAGRACIA Attending Unavailable GANTA, HELEN Primary Care Unavailable OLDERЕКАТЕРИНА Attending Unavailable SELF Referring Unavailable GANTA, HELEN Primary Care Unavailable GANTA, HELEN Referring Unavailable RADHA HIGH Attending Unavailable GANTA, HELEN Primary Care Unavailable DOUGIE, ALTAGRACIA Referring Unavailable GANTA, HELEN Primary Care Unavailable VETOVITZ, LETY Attending Unavailable GANTA, HELEN Primary Care Unavailable VETOVITZ, LETY Referring Unavailable GANTA, HELEN Primary Care Unavailable VETOVITZ, LETY Referring Unavailable GANTA, HELEN Primary Care Unavailable DOUGIE ALTAGRACIA Attending Unavailable GANTA, HELEN Primary Care Unavailable GANTA, HELEN Primary Care Unavailable ANILARADHA BAY Attending Unavailable Allergies Allergy Classification Reported Allergen(s) Allergy Type Date of Onset Reaction(s) Facility Bacitracin (1 source) Bacitracin Drug Allergy 9 Hives [facility] MITE EXTRACT (1 source) MITE EXTRACT Drug Allergy 0 [facility] Mold Extract (1 source) Mold Extract Drug Allergy 0 Other (See Comments) [facility] Opioid Agonists (1 source) Codeine Drug Allergy 9 Nausea And Vomiting [facility] red maple pollen extract (1 source) red maple pollen extract Drug Allergy 1 Shortness Of Breath [facility] (20 sources) Bacitracin; Translations: [BACITRACIN (BULK)] Drug Allergy 9 Hives [facility] (20 sources) Codeine; Translations: [CODEINE] Drug Allergy 9 Unknown [facility] (20 sources) House dust mite; Translations: [DUST MITES] Allergy to substance 0 Other: See Comments [facility] Work Phone: (20 sources) Mold Extract; Translations: [MOLD] Drug Allergy 0 Unknown [facility] Work Phone: (20 sources) red maple pollen extract; Translations: [TREE POLLEN-RED MAPLE] Drug Allergy 1 Shortness of Breath [facility] (20 sources) Sulfonamides (Antibiotic); Translations: [SULFA (SULFONAMIDE ANTIBIOTICS)] Drug Allergy 9 Other: See Comments [facility] (20 sources) Gentamicin; Translations: [GENTAMICIN] Drug Allergy 2 Swelling [facility] Work Phone: (20 sources) sulfabenzamide; Translations: [SULFABENZAMIDE] Drug Allergy 2 Hives [facility] Work Phone: (5 sources) Sulfonamides (Antibiotic) Allergy to substance 2 Unknown [facility] (6 sources) Tree and shrub pollen; Translations: [tree and shrub pollen] Allergy to substance 2 DIFFICULTY BREATHING [facility] (6 sources) house dust mite; Translations: [house dust mite] Allergy to substance 2 unknown [facility] (1 source) Bacitracin Drug Allergy 5 [facility] (1 source) Codeine Drug Allergy 5 [facility] (1 source) Mold Extract Drug Allergy 5 [facility] (1 source) Sulfonamides (Antibiotic) Drug allergy (disorder) 5 [facility] NEGATED: Highlighted row has been ruled out!Unclassified (1 source) Other Propensity to adverse reactions 9 [facility] Medications Current Medications Medication Drug Class(es) Dates Sig (Normalized) Sig (Original) amoxicillin 500 mg oral capsule (20 sources) Penicillin-class Antibacterial Start: 02-01-2021 take 2000 mg by mouth every hour Amoxicillin Active 2000 MG PO .COMPLEX February 01, 2021 12:00am 2,000 mg PO 1 hour prior to dental procedures; amoxicillin (MACRINA YMOX, AMOXIL) 500 mg capsule Take 500 mg by mouth. Take 4 capsules 1 hour before dental procedures. Active Comment on above: Take 500 mg by mouth . Take 4 capsules 1 hour before dental procedures. amoxicillin 875 mg / clavulanate 125 mg oral tablet (4 sources) Penicillin-class Antibacterial Start: 3 End: 3 take 1 tablet by mouth twice daily amoxicillin-clavu lanic acid (AUGMENTIN) 875-125 mg per tablet Take 1 tablet by mouth twice daily for 7 days. 14 tablet 0 08/17/2022 08/24/2022 Active Comment on above: Take 1 tablet by jhonatan th twice daily for 7 days. ascorbic acid 500 mg oral tablet (20 sources) Vitamin C Start: 3 End: 3 take 1 tablet by mouth twice daily at mealtime ascorbic acid, vitamin C, (VITAMIN C) 500 mg tablet Take 1 tablet by mouth twice daily with meals for 27 doses. 27 tablet 03/16/2023 4:56 PM EDT 03/16/2023 Active Start: 02-01-2021 End: 03-16-2023 take 250 mg by mouth once daily Ascorbic Acid (Vitamin C) Active 250 MG PO DAILY February 01, 2021 12:00am Comment on above: Take 250 mg by mouth once daily. Take 1 tablet by jhonatan th twice daily with meals for 27 doses. aspirin 81 mg delayed release oral tablet (20 sources) Platelet Aggregation Inhibitor, Nonsteroidal Anti-inflammatory Drug Start: 03-16-2023 End: 04-13-2023 take 1 tablet by mouth twice daily in the evening aspirin, enteric coated (ASPIRIN, ENTERIC COATED) 81 mg EC tablet Take 1 tablet by mouth twice daily for 28 days. 56 tablet 03/16/2023 4:56 PM EDT 03/16/2023 Active Start: 03-03-2021 take 1 tablet by jhonatan once daily aspirin 81 MG chewable tablet Take 1 tablet by mouth daily 90 tablet 3 03/03/2021 Active Start: 03-02-2021 End: 03-03-2021 aspirin chewable tablet 81 m g Start: 02-20-2021 End: 02-19-2023 take 1 tablet by mouth once daily Aspirin (Adult Aspirin Regimen) 81 mg tablet,delayed release (DR/EC) Discontinued 81 MG PO DAILY 90 February 21, 2022 11:22am February 19, 2023 9:15pm End: 04-22-2022 aspirin 81 mg cap Take by [facility]. 0 04/22/2022 Discontinued Comment on above: Take by mouth. Take 1 tablet by jhonatan twice daily for 28 days. atorvastatin 10 mg oral tablet (20 sources) HMG-CoA Reductase Inhibitor Start: 03-01-2021 atorvastatin (LIPITOR) tablet 80 mg Start: 11-16-2020 atorvastatin ( LIPITOR) 10 MG tablet Take 80 mg by mouth nightly 0 11/16/2020 Suspended Start: 12-06-2019 End: 11-27-2024 take 1 tablet by mouth once daily atorvastatin (LIPITOR) 10 mg tablet Take 1 tablet by mouth once daily. 90 tablet 3 11/28/2024 Active Comment on above: Take 1 tablet by [facility] once daily. take 1 tablet by [facility] once daily Bifidobacterium Infantis (20 sources) Start: 1 take 1 tablet by mouth once daily Bifidobacterium infantis (ALIGN ORAL) Take 1 tablet by mouth once daily. 02/01/2021 Active Start: 02-01-2021 take 1 tablet by jhonatan once daily Bifidobacterium infantis (ALIGN ORAL) Take 1 tablet by mouth once daily. 0 02/01/2021 Active Comment on above: Take 1 tablet by jhonatan once daily. bimatoprost 0.1 mg/ml ophthalmic solution (20 sources) Prostaglandin Analog Start: 4 take 1 drop(s) into the eye(s) at bedtime LUMIGAN 0.01 % drop ophthalmic drops instill 1 drop into both eyes at bedtime 5 mL 11 01/17/2024 Active Start: 02-01-2021 take 0.01 drop(s) in to the eye(s) once daily in the evening Bimatoprost (Lumigan) 0.01 % drops Active 1 DRP OPHTHALMIC EVERY EVENING February 01, 2021 12:00am Start: 10-29-2020 End: 01-17-2024 take 1 drop(s) into the eye(s) once daily at bedtime LUMIGAN 0.01 % drop ophthalmic drops instill 1 drop into both eyes once daily at bedtime 5 mL 11 10/29/2020 12/03/2021 Discontinued Start: 10-01-2019 End: 10-29-2020 take 1 drop(s) into the eye(s) once daily at bedtime, then take 1 drop(s) into the eye(s) once daily at bedtime bimatoprost (LUMIGAN) 0.01 % drop ophthalmic drops Use 1 Drop in both eyes daily at bedtime. One drop each eye daily at bedtime. 1 Bottle 11 10/01/2019 10/29/2020 Discontinued Comment on above: instill 1 drop into both eyes once daily at bedtime Blood-Glucose Meter monitoring kit (1 source) Start: 3 End: 3 Blood-Glucose Meter monitoring kit Glucose Meter of Choice - Kit - Dx: Type 2 DM - Controlled E11.9 1 Each 0 09/07/2022 09/07/2022 Active Comment on above: Glucose Meter of Cho ice - Kit - Dx: Type 2 DM - Controlled E11.9 12 hr buPROPion hydrochloride 150 mg extended release oral tablet (20 sources) Aminoketone Start: 3 End: 5 take 1 tablet by mouth once daily buPROPion SR (WELLBUTRIN SR) 150 mg 12 hr tablet Take 1 tablet by mouth once daily. 180 tablet 3 08/26/2024 Active Start: 02-01-2021 End: 01-19-2023 take 1 tablet by mouth once daily buPROPion SR (ZYBAN SR; WELLBUTRIN SR) 150 mg 12 hr tablet Take 1 tablet by mouth once daily. 90 tablet 1 02/10/2021 07/26/2021 Discontinued Start: 05-12-2020 End: 08-10-2020 take 1 tablet by mouth once daily buPROPion SR (ZYBAN SR; WELLBUTRIN SR) 150 mg 12 hr tablet Take 1 tablet by mouth once daily. 30 tablet 2 05/12/2020 08/10/2020 Discontinued Comment on above: Take 1 tablet by jhonatan th once daily. take 1 tablet by jhonatan th once daily cefdinir 300 mg oral capsule (1 source) Cephalosporin Antibacterial Start: 025 End: take 1 capsule by mouth twice daily cefdinir (OMNICEF) 300 mg capsule Take 1 capsule by mouth two times a day for 10 days. 20 capsule 08/26/2024 09/05/2024 Active cholecalciferol 0.05 mg oral tablet (20 sources) Vitamin D Start: 021 End: take 2000 [IU] by mouth once daily Cholecalciferol (Vitamin D3) Active 2000 UNIT PO DAILY February 01, 2021 12:00am Comment on above: Take 2,000 Units by mouth once daily. clonazePAM 0.5 mg oral tablet (20 sources) Benzodiazepine Start: 023 End: take 0.5 mg by mouth at bedtime Clonazepam Active 0.5 MG PO AT BEDTIME October 07, 2022 1:00am Comment on above: Take 1/2 to 1 tablet at bedtime as needed. diclofenac sodium 0.01 mg/mg topical gel (20 sources) Nonsteroidal Anti-inflammatory Drug Start: End: Diclofenac Sodium (Arthritis Pain (Diclofenac)) 1 % gel Active 2 GM TOPICAL 4 TIMES DAILY September 28, 2021 11:41am apply to single elbow, wrist or hand; for hand includes palm/fingers/back of hand Start: 04-14-2020 End: 02-24-2025 apply 2 g topically four times daily diclofenac (VOLTAREN) 1 % topical gel Apply 2 g to affected area four times daily. 100 g 3 02/24/2025 Active Comment on above: Apply 2 g to affecte d area four times daily. doxycycline hyclate 100 mg oral tablet (2 sources) Tetracycline-clas s Drug Start: 5 End: take 1 tablet by mouth twice daily doxycycline (VIBRA-TABS) 100 mg tablet Indications: Sinobronchitis Take 1 tablet by mouth two times a day for 7 days. 14 tablet 10/14/2024 10/21/2024 Active Start: 08-23-2023 End: 09-02-2023 take 1 tablet by mouth twice daily doxycycline (VIBRA-TABS) 100 mg tablet Indications: Acute non-recurrent sinusitis, unspecified location Take 1 tablet by mouth two times a day for 10 days. 20 tablet 0 08/23/2023 09/02/2023 Active Comment on above: Take 1 tablet by jhonatan two times a day for 10 days. 0.4 ml enoxaparin sodium 100 mg/ml prefilled syringe (1 source) Low Molecular Weight Heparin Start: 03-01-2021 enoxaparin (LOVENOX) injection 40 mg estrogens, conjugated (halfway) 0.625 mg/ml vaginal cream (20 sources) Estrogen Start: 09-28-2021 Conjugated Estrogens (Premarin) 0.625 mg/gram cream Active 0.3125 MG VAGINAL .COMPLEX September 28, 2021 1:00am 0.3125 mg vaginal; off 5 days; repeat cycle Start: 02-01-2021 End: 06-01-2021 Conjugated Estrogens (Premar in) 0.625 mg/gram cream Discontinued 0.3125 MG VAGINAL TWICE A WEEK February 01, 2021 12:00am June 01, 2021 1:10pm Start: 03-20-2020 End: 08-26-2024 conjugated estrogens (PREMAR IN) vaginal cream Use 0.5 g vaginally two times a week. 12 g 3 08/26/2024 Active Comment on above: Use 0.5 g vaginally two times a week. ferrous sulfate 324 mg delayed release oral tablet (20 sources) Start: 10-07-2022 take 324 mg by mouth twice daily Ferrous Sulfate Active 324 MG PO TWICE A DAY October 07, 2022 2:52pm Start: 03-01-2021 take 324 mg by mouth once daily 324 mg, Oral, DAILY, First dose on 03/01/21 at 2000 Start: 02-01-2021 End: 10-07-2022 take 324 mg by mouth once daily Ferrous Sulfate Discontinued 324 MG PO DAILY February 01, 2021 12:00am October 07, 2022 2:52pm Comment on above: Take 324 mg by mouth once daily. Take 324 mg by mouth once daily. Twice a day fluconazole 150 mg oral tablet (5 sources) Azole Antifungal Start: 08-26-2024 End: 08-26-2024 fluconazole (DIFLUCAN) 150 mg tablet Take 1 tablet by mouth one time only for 1 dose. Repeat in 3 days as needed. 2 tablet 08/26/2024 08/26/2024 Active Start: 05-01-2024 End: 05-01-2024 fluconazole (DIFLUCAN) 150 m g tablet Take 1 tablet by mouth one time only for 1 dose. Repeat in 3 days as needed. 2 tablet 05/01/2024 05/01/2024 Start: 02-21-2024 End: 02-21-2024 fluconazole (DIFLUCAN) 150 m g tablet Take 1 tablet by mouth one time only for 1 dose. Repeat in 3 days as needed. 2 tablet 0 02/21/2024 02/21/2024 Active Start: 08-23-2023 End: 08-23-2023 fluconazole (DIFLUCAN) 150 m g tablet Take 1 tablet by mouth one time only for 1 dose. Repeat in 3 days as needed. 2 tablet 0 08/23/2023 08/23/2023 Start: 08-17-2022 End: 08-17-2022 fluconazole (DIFLUCAN) 150 m g tablet Take 1 tablet by mouth one time only for 1 dose. Repeat in 3 days as needed. 2 tablet 0 08/17/2022 08/17/2022 Comment on above: Take 1 tablet by [facility] one time only for 1 dose. Repeat in 3 days as needed. fluorometholone 1 mg/ml ophthalmic suspension (20 sources) Corticosteroid Start: 05-17-2023 fluorometholone (FML LIQUID FILM) 0.1 % ophthalmic suspension instill 1 drop into both eyes twice a day as directed 05/17/2023 Active fluorometholone (FML LIQUID FILM) 0.1 % ophthalmic suspension 1 Drop every 4 hours. Active Comment on above: instill 1 drop into both eyes twice a day as directed 1 Drop every 4 hours . fluticasone propionate 0.05 mg/actuat metered dose nasal spray (20 sources) Corticosteroid Start: take 2 spray(s) nasal route once daily fluticasone (FLONASE) 50 mcg/actuation nasal spray instill 2 sprays into each nostril once daily 3 Each 3 02/21/2024 Active Start: 10-27-2021 End: 02-21-2024 take 2 spray(s) nasal route once daily fluticasone (FLONASE) 50 mcg/actuation nasal spray instill 2 sprays into each nostril once daily 16 g 5 12/03/2022 02/21/2024 Discontinued Start: 03-01-2021 take 2 spray(s) nasa l route once daily 2 spray, Each Nostril, DAILY, First dose on Mon03/01/21 at 1730 Start: 02-01-2021 take 1 spray(s) nasa l route once daily Fluticasone Propionate (Allergy Relief (Fluticasone)) 50 mcg/actuation spray,suspension Active 2 SPRAY INTRANASAL DAILY February 01, 2021 12:00am administer into each nostril Start: 12-14-2020 End: 05-21-2021 take 2 spray(s) by mouth once daily fluticasone (FLONASE) 50 mcg/actuation nasal spray Use 2 Sprays in each nostril once daily. Rinse mouth after use. 1 Bottle 3 12/14/2020 05/21/2021 Discontinued Start: 12-14-2020 fluticasone (F LONASE) 50 MCG/ACT nasal spray 2 sprays by NOT APPLICABLE route daily 0 12/14/2020 Suspended Start: 05-01-2020 End: 12-11-2020 take 2 spray(s) by mouth once daily fluticasone (FLONASE) 50 mcg/actuation nasal spray Use 2 Sprays in each nostril once daily. Rinse mouth after use. 1 Bottle 3 05/01/2020 12/11/2020 Discontinued Comment on above: Use 2 Sprays in each nostril once daily. instill 2 sprays int o each nostril once daily gabapentin enacarbil 300 mg extended release oral tablet (20 sources) Anti-epileptic Agent Start: 01-20-2025 End: 07-25-2025 gabapentin enacarbil (HORIZANT) 300 mg TbER Indications: RLS (restless legs syndrome) Take 1 tablet TID. 270 tablet 1 04/23/2025 07/25/2025 Active Start: 01-03-2025 End: 04-03-2025 take 1 tablet by mouth twice daily gabapentin 300 mg Tb24 Indications: RLS (restless legs syndrome) Take 1 tablet by mouth two times a day for 90 days. 60 tablet 2 01/03/2025 01/20/2025 Discontinued Start: 12-27-2024 End: 03-27-2025 take 1 tablet by mouth in the evening, then take 2 tablets by mouth in the evening gabapentin 300 mg Tb24 Indications: RLS (restless legs syndrome) Take 1 pill by mouth at 2 PM and 2 pills at 5 PM 90 tablet 2 12/27/2024 01/03/2025 Discontinued Start: 12-26-2024 End: 03-26-2025 take 3 tablets by mouth once daily gabapentin 300 mg Tb24 Take 3 tablets by mouth once daily for 90 days. 90 tablet 2 12/26/2024 12/27/2024 Discontinued Start: 03-02-2021 Gabapentin Yani carbil ER TBCR 900 mg Start: 03-01-2021 End: 03-02-2021 gabapentin (NEURONTIN) capsu le 300 mg Start: 01-15-2021 End: 12-26-2024 gabapentin enacarbil (HORIZA NT) 300 mg TbER Take 3 tablets by mouth once daily. Take one tablet at 2pm and two tablets at 5pm 270 tablet 1 06/21/2024 12/26/2024 Discontinued Start: 01-15-2021 Gabapentin Yani carbil ER (HORIZANT) 300 MG TBCR Take 900 mg by mouth daily. 0 01/15/2021 Suspended Start: 04-30-2020 End: 08-10-2020 take 3 tablets by mouth once daily HORIZANT 300 mg TbER Indications: RLS (restless legs syndrome) Take 3 tablets by mouth once daily. 270 tablet 04/30/2020 08/10/2020 Discontinued Comment on above: Take 3 tablets by mo uth once daily. Take 3 tablets by mo uth once daily. Take one tablet at 2pm and two tablets at 5pm Take 3 tablets by mo uth once daily. Take one tablet at 2pm and two tablets at 5pm Patient should start on November 26, 2023. glucagon (rdna) 1 mg injection (1 source) Antihypoglycemic Agent Start: 03-01-2021 glucagon (rDNA) injection 1 mg 150 ml glucose 50 mg/ml injection (3 sources) Start: 03-01-2021 glucose (GLUTOSE) 40 % oral gel 15 g Start: 03-01-2021 dextrose 50 % IV solution Start: 03-01-2021 dextrose 5 % s olution insulin lispro 100 unt/ml injectable solution (1 source) Insulin Analog Start: 03-01-2021 insulin lispro (HUMALOG) injection vial 0-6 Units inulin 2000 mg chewable tablet (3 sources) Start: 10-07-2022 Inulin (Fiber Gummies) 2 gram tablet,chewable Active GM PO October 07, 2022 1:00am ketoconazole 20 mg/ml topical cream (20 sources) Azole Antifungal Start: 04-14-2020 End: 02-21-2024 ketoconazole (NIZORAL) 2 % cream Apply to affected area once daily. Used for fungal skin fold rashes 30 g 3 02/21/2024 Active Comment on above: Apply to affected ar ea once daily. Used for fungal skin fold rashes ketotifen 0.25 mg/ml ophthalmic solution (1 source) Histamine-1 Receptor Inhibitor Start: 03-01-2021 take 1 drop(s) into the eye(s) twice daily 1 drop, Both Eyes, 2 TIMES DAILY, First dose on Mon03/01/21 at 2100 Substituted for Olopatadine (Patanol 0.1%/Pataday 0.2%/Pazeo 0.7%). L. Acidophilus/Bifid. Animalis (Daily Probiotic) 2.5 billion cell capsule (5 sources) Start: 02-01-2021 L. Acidophilus/Bifid. Animalis (Daily Probiotic) 2.5 billion cell capsule Active 0 .ROUTE .COMPLEX January 31, 2021 11:00pm 1 capsule daily Start: 02-01-2021 L. Acidophilus /Bifid. Animalis (Daily Probiotic) 2.5 billion cell capsule Active 0 .ROUTE .COMPLEX February 01, 2021 12:00am 1 capsule daily levothyroxine sodium 0.075 mg oral tablet (20 sources) l-Thyroxine Start: 06-01-2021 End: 09-28-2021 take 75 ug by mouth once daily Levothyroxine Discontinued 75 MCG PO DAILY June 01, 2021 1:09pm September 28, 2021 11:31am Start: 04-13-2021 End: 08-26-2024 take 1 tablet by mouth once daily levothyroxine (SYNTHROID) 75 mcg tablet Indications: Hypothyroidism, unspecified type take 1 tablet by mouth once daily ON AN EMPTY STOMACH 90 tablet 3 08/26/2024 Active Start: 02-01-2021 End: 06-01-2021 take 50 ug by mouth once daily Levothyroxine Discontinued 50 MCG PO DAILY February 01, 2021 12:00am June 01, 2021 1:10pm Start: 05-29-2020 End: 11-16-2020 take 1 tablet by mouth once daily levothyroxine (SYNTHROID) 50 mcg tablet Take 1 tablet by mouth once daily. 90 tablet 1 05/29/2020 11/16/2020 Discontinued Comment on above: take 1 tablet by jhonatan th once daily ON AN EMPTY STOMACH magnesium oxide 500 mg oral tablet (20 sources) Start: 03-17-2023 take 1 tablet by mouth once daily Magnesium Oxide 500 mg tab Take 500 mg by mouth once daily. Taking in gummy form 03/17/2023 Active Start: 03-02-2021 End: 03-02-2021 magnesium oxide (MAG-OX) tab let 400 mg Comment on above: Take by mouth once d aily. Take 500 mg by mouth once daily. Take 500 mg by mouth once daily. Taking in gummy form montelukast 10 mg oral tablet (20 sources) Leukotriene Receptor Antagonist Start: 0 End: 4 take 1 tablet by mouth once daily at bedtime montelukast (SINGULAIR) 10 mg tablet Take 1 tablet by mouth daily at bedtime. 90 tablet 3 07/26/2024 Active Comment on above: Take 1 tablet by jhonatan th daily at bedtime. take 1 tablet by jhonatan th at bedtime multivit,thx,calcium ,iron,mins (MULTIVITAMIN AND MINERAL ORAL) (20 sources) Start: 3 take 1 tablet by mouth once daily multivit,thx,calcium ,iron,mins (MULTIVITAMIN AND MINERAL ORAL) Take 1 tablet by mouth once daily. 03/17/2023 Active Start: 03-17-2023 take 1 tablet by jhonatan once daily multivit,thx,calcium,iron,mins (MULTIVIT DYER AND MINERAL ORAL) Take 1 tablet by mouth once daily. 0 03/17/2023 Active multivit,thx,sarah cium,iron,mins (MULTIVITAMIN AND MINERAL ORAL) Take by mouth. 0 Active Comment on above: Take by mouth. Take 1 tablet by jhonatan once daily. Pbolmcmh-Hji-Fbkh-F a-Lutein (Centrum Silver Women) 8 mg iron-400 mcg-300 mcg tablet (3 sources) Start: 09-28-2021 take 1 tablet by mouth once daily Ntztqron-Tsu-Tvkj-F a-Lutein (Centrum Silver Women) 8 mg iron-400 mcg-300 mcg tablet Active 1 TABLET PO DAILY September 28, 2021 12:00am Start: 09-28-2021 take 1 tablet by jhonatan once daily Ugrkztqe-Hjk-Awoj-Fa-Lutein (Centrum Zohra nupur Women) 8 mg iron-400 mcg-300 mcg tablet Active 1 TABLET PO DAILY September 28, 2021 1:00am Vukcoqhe-Pqp-Qovp-Fa-Vit K-Lut (Centrum Silver Women) 8 mg iron-400 mcg-300 mcg tablet (2 sources) Start: 09-28-2021 take 1 tablet by mouth once daily Wzfqixjr-Ygy-Dmsv-Fa-Vit K-Lut (Centrum Silver Women) 8 mg iron-400 mcg-300 mcg tablet Active 1 TABLET PO DAILY September 28, 2021 1:00am Start: 09-28-2021 take 1 tablet by [facility] once daily Fqmwsyag-Psw-Wthc-Fa-Vit K-Lut (Centrum Silver Women) 8 mg iron-400 mcg-300 mcg tablet Active 1 TABLET PO DAILY September 28, 2021 12:00am naproxen 500 mg oral tablet (20 sources) Nonsteroidal Anti-inflammatory Drug Start: 08-26-2024 take 1 tablet by mouth every twelve hours as needed naproxen (NAPROSYN) 500 mg tablet Take 1 tablet by mouth two times a day as needed. Take with food. 30 tablet 08/26/2024 Active nystatin 100 unt/mg topical powder (20 sources) Polyene Antifungal Start: 05-01-2024 nystatin (MYCOSTATIN) powder Apply 1 application to affected area four times daily. 30 g 1 05/01/2024 Active omeprazole 40 mg delayed release oral capsule (20 sources) Proton Pump Inhibitor Start: 10-07-2022 End: 11-27-2024 take 1 capsule by mouth twice daily omeprazole (PRILOSEC) 40 mg capsule Take 1 capsule by mouth two times a day. 180 capsule 1 11/28/2024 Active Start: 09-03-2021 End: 06-02-2022 take 1 capsule by mouth twice daily omeprazole (PRILOSEC) 40 mg capsule Take 1 capsule by mouth twice daily. 180 capsule 1 06/02/2022 Active Start: 06-10-2020 End: 10-07-2022 take 1 capsule by mouth once daily omeprazole (PRILOSEC) 40 mg capsule Take 1 capsule by mouth once daily. 90 capsule 3 11/16/2020 09/03/2021 Discontinued Comment on above: Take 1 capsule by mo uth twice daily. take 1 capsule by mo uth twice a day Take 1 capsule by mo uth two times a day. ondansetron (ZOFRAN-ODT) disintegrating tablet 4 mg (1 source) Start: 03-01-20 ondansetron (ZOFRAN-ODT) disintegrating tablet 4 mg pantoprazole 40 mg delayed release oral tablet (1 source) Proton Pump Inhibitor Start: 03-02-20 take 40 mg by mouth once daily before breakfast 40 mg, Oral, DAILY BEFORE BREAKFAST, First dose on Mon03/02/21 at 0700 Do not crush or break. Substituted for Omeprazole (PRILOSEC). perflutren lipid microspheres (DEFINITY) injection 1.65 mg (1 source) Start: 03-01-20 End: 03-04-20 perflutren lipid microspheres (DEFINITY) injection 1.65 mg pramipexole dihydrochloride 0.125 mg oral tablet (20 sources) Nonergot Dopamine Agonist Start: 06-21-20 End: 04-23-20 pramipexole (MIRAPEX) 0.125 mg tablet Indications: RLS (restless legs syndrome) Take 1 tablet at 2 PM, 1 tablet at dinnertime, 2 tablets at 9 pm, and 2 tablets at bedtime 540 tablet 1 04/23/2025 Active Start: 02-28-2023 End: 06-21-2024 take 2 tablets by mouth three times daily pramipexole (MIRAPEX) 0.125 mg tablet Take 2 tablets by mouth three times a day. 540 tablet 1 12/18/2023 06/21/2024 Discontinued Start: 01-12-2023 take 1 tablet by jhonatan th four times daily pramipexole (MIRAPEX) 0.125 mg tablet Take 1 tablet by mouth four times daily. 360 tablet 1 01/12/2023 Active Start: 10-07-2022 take 0.25 mg by mout h four times daily Pramipexole Active 0.25 MG PO 4 times daily October 07, 2022 2:47pm Start: 11-03-2021 End: 11-16-2022 take 2 tablets by mouth four times daily pramipexole (MIRAPEX) 0.125 mg tablet Take 2 tablets by mouth four times daily. 240 tablet 5 11/29/2021 11/16/2022 Discontinued Start: 09-28-2021 End: 10-07-2022 take 0.25 mg by mouth three times daily Pramipexole Discontinued 0.25 MG PO THREE TIMES A DAY September 28, 2021 11:35am October 07, 2022 2:52pm Start: 03-01-2021 End: 03-02-2021 pramipexole (MIRAPEX) tablet 0.25 mg Start: 02-01-2021 End: 09-28-2021 take 0.25 mg by mouth four times daily Pramipexole Discontinued 0.25 MG PO 4 TIMES DAILY February 01, 2021 12:00am September 28, 2021 11:44am Start: 05-29-2020 End: 08-19-2021 take 2 tablets by mouth four times daily pramipexole (MIRAPEX) 0.125 mg tablet Take 2 tablets by mouth four times daily. 240 tablet 5 01/13/2021 08/19/2021 Discontinued End: 01-10-2023 take 1 tablet by mouth four times daily pramipexole (MIRAPEX) 0.125 mg tablet Take 0.125 mg by mouth four times daily. 0 01/10/2023 Discontinued Comment on above: Take 2 tablets by mo uth four times daily. Take 0.125 mg by jhonatan th four times daily. Take 1 tablet by [facility] four times daily. Take 2 tablets by [facility] three times daily. Take 2 tablets by [facility] three times a day. Semaglutide (5 sources) Start: 09-28-2021 Semaglutide (Ozempic) 1 mg/dose (4 mg/3 mL) pen injector Active 1 MG SC EVERY WEEK September 28, 2021 12:00am Start: 09-28-2021 Semaglutide (O zempic) 1 mg/dose (4 mg/3 mL) pen injector Active 1 MG SC EVERY WEEK September 28, 2021 1:00am semaglutide (OZEMPIC) 2 mg/dose (8 mg/3 mL) pen injector (20 sources) Start: 02-20-2025 inject 2 mg by subcutaneous injection every week semaglutide (OZEMPIC) 2 mg/dose (8 mg/3 mL) pen injector Indications: Type 2 diabetes mellitus without complication, without long-term current use of insulin (HCC) Inject 2 mg subcutaneously one time a week. 9 mL 3 02/20/2025 Active Start: 03-01-2024 End: 02-17-2025 inject 2 mg by subcutaneous injection every week semaglutide (OZEMPIC) 2 mg/dose (8 mg/3 mL) pen injector Indications: Type 2 diabetes mellitus without complication, without long-term current use of insulin (HCC) Inject 2 mg subcutaneously one time a week. 9 mL 3 03/01/2024 02/17/2025 Discontinued Start: 03-01-2024 inject 2 mg by subcu taneous injection every week semaglutide (OZEMPIC) 2 mg/dose (8 mg/3 mL) pen injector Indications: Type 2 diabetes mellitus without complication, without long-term current use of insulin (HCC) Inject 2 mg subcutaneously one time a week. 9 mL 3 03/01/2024 Active Start: 02-21-2024 End: 03-01-2024 inject 2 mg by subcutaneous injection every week semaglutide (OZEMPIC) 2 mg/dose (8 mg/3 mL) pen injector Indications: Type 2 diabetes mellitus without complication, without long-term current use of insulin (HCC) Inject 2 mg subcutaneously one time a week. 9 mL 3 02/21/2024 03/01/2024 Discontinued Start: 02-21-2024 inject 2 mg by subcu taneous injection every week semaglutide (OZEMPIC) 2 mg/dose (8 mg/3 mL) pen injector Indications: Type 2 diabetes mellitus without complication, without long-term current use of insulin (HCC) Inject 2 mg subcutaneously one time a week. 9 mL 3 02/21/2024 Active simethicone 125 mg chewable tablet (20 sources) Start: 09-28-2021 Simethicone (G as-X Extra Strength) 125 mg tablet,chewable Active 125 MG PO 2 to 4 times per day September 28, 2021 1:00am Start: 03-01-2021 simethicone (M YLICON) chewable tablet 80 mg take 125 mg by mouth twice daily simethicone (GAS-X ORAL) Take 125 mg by mouth twice daily. Active Comment on above: Take 125 mg by mouth twice daily. 3 ml sodium chloride 9 mg/ml injection (4 sources) Start: 03-01-2021 0.9 % sodium chloride infusion Start: 03-01-2021 End: 03-04-2021 sodium chloride flush 0.9 % injection 5-40 mL ubidecarenone 200 mg oral ca psule (20 sources) Start: 09-28-2021 Coenzyme Q10 ( Co Q-10) 200 mg capsule Active 200 MG PO DAILY September 28, 2021 1:00am take 10 tablets by mouth once da dory ubidecarenone (COENZYME Q10) 100 mg tab Take 200 mg by mouth once daily. Active Comment on above: Take 200 mg by mouth once daily. valsartan 320 mg oral tablet (20 sources) Angiotensin 2 Receptor Katina Start: 06-13-2024 End: 02-24-2025 take 1 tablet by mouth once daily valsartan (DIOVAN) 320 mg tablet Take 1 tablet by mouth once daily. 90 tablet 1 02/24/2025 Active Start: 06-01-2021 End: 06-06-2024 take 1 tablet by mouth once daily valsartan (DIOVAN) 320 mg tablet Take 1 tablet by mouth once daily. 90 tablet 1 11/23/2023 06/06/2024 Discontinued Start: 03-01-2021 valsartan (GERARDO VAN) tablet 320 mg Comment on above: Take 1 tablet by jhonatan once daily. vitamin k2 0.1 mg oral capsule (20 sources) Start: 10-07-2022 take 100 ug by mouth once daily Vitamin K2 Active 100 MCG PO DAILY October 07, 2022 1:00am Comment on above: Take 100 mcg by mout h. Zinc (20 sources) Start: 09-28-2021 take 50 mg by mouth once daily Zinc Active 50 MG PO DAILY September 28, 2021 12:00am Start: 09-28-2021 take 50 mg by mouth once daily Zinc Active 50 MG PO DAILY September 28, 2021 1:00am Zinc 50 mg tab T antolin 50 mg by mouth. Active Zinc 50 mg tab T antolin 50 mg by mouth. 0 Active Comment on above: Take 50 mg by mouth. Completed/Discontinued Medications Medication Drug Class(es) Dates Sig (Normalized) Sig (Original) acetaminophen 500 mg oral tablet (20 sources) Start: 03-16-2023 take 2 tablets by mouth every eight hours as needed acetaminophen (TYLENOL) 500 mg tablet Take 2 tablets by mouth every 8 hours as needed for pain. 90 tablet 0 03/16/2023 Active Start: 05-06-2022 End: 08-17-2022 take 2 tablets by mouth every six hours as needed acetaminophen (TYLENOL EXTRA STRENGTH) 500 mg tablet Take 2 tablets by mouth every 6 hours as needed for pain. 40 tablet 2 05/06/2022 08/17/2022 Discontinued (Discontinued by Patient) Start: 03-01-2021 acetaminophen (TYLENOL) tablet 650 mg Comment on above: Take [address] [facility] every 6 hours as needed for pain. Take 2 tablets by mo ut every 8 hours as needed for pain. amLODIPine 2.5 mg oral tablet (20 sources) Dihydropyridine Calcium Channel Katina Start: 09-28-19 End: 05-01-20 take 1 tablet by mouth once daily Amlodipine (Norvasc) 2.5 mg tablet Discontinued 2.5 MG PO DAILY 90 April 27, 2022 10:04am May 01, 2023 8:27am Comment on above: Take 2.5 mg by mouth once daily. azelaic acid 0.15 mg/mg topical gel (7 sources) Start: 02-02-20 End: 02-04-20 Azelaic Acid Discontinued 1 APPLIC TOPICAL TWICE A DAY February 01, 2021 12:00am February 03, 2021 11:38am End: 04-22-2021 Azelaic Acid (FINACEA) 15 % gel Apply to affected area. 04/22/2021 Discontinued cetirizine hydrochloride 10 mg oral tablet (8 sources) Histamine-1 Receptor Antagonist Start: 02-01-2021 End: 06-01-2021 take 10 mg by mouth at bedtime Cetirizine Discontinued 10 MG PO BEDTIME February 01, 2021 12:00am June 01, 2021 1:10pm End: 04-22-2021 Cetirizine (ZYRTEC) 10 mg ca p Take by mouth daily at bedtime. 04/22/2021 Discontinued ciprofloxacin 3 mg/ml ophthalmic solution (9 sources) Quinolone Antimicrobial Start: 02-01-2021 End: 08-17-2021 Ciprofloxacin Hcl (Ciloxan) 0.3 % drops Discontinued 1 DRP OPHTHALMIC 4 TIMES DAILY February 01, 2021 12:00am August 17, 2021 2:29pm left eye Start: 09-30-2019 End: 04-22-2021 take 1 drop(s) into the eye(s) four times daily ciprofloxacin HCl (CILOXAN) 0.3 % ophthalmic solution Use 1 Drop in the left eye four times daily. 10/18/2019 04/22/2021 Discontinued colestipol hydrochloride 1000 mg oral tablet (12 sources) Bile Acid Sequestrant Start: 12-08-2021 End: 01-07-2022 take 1 tablet by mouth twice daily colestipol (COLESTID) 1 gram tablet take 1 tablet by mouth twice a day 60 tablet 5 01/03/2022 Active Comment on above: Take 1 tablet by jhonatan th twice daily. take 1 tablet by jhonatan th twice a day dicyclomine hydrochloride 10 mg oral capsule (20 sources) Anticholinergic Start: 09-28-2021 End: 12-27-2021 take 10 mg by mouth three times daily Dicyclomine Discontinued 10 MG PO THREE TIMES A DAY September 28, 2021 11:30am December 27, 2021 11:38am Start: 02-01-2021 End: 10-27-2021 take 1 capsule by mouth four times daily at bedtime dicyclomine (BENTYL) 10 mg capsule take 1 capsule by mouth four times a day before meals and at bedtime 360 capsule 1 10/27/2021 Active Start: 01-13-2021 take 10 mg by mouth three times daily before mealtime 10 mg, Oral, 3 TIMES DAILY BEFORE MEALS, First dose on 03/01/21 at 1900 Comment on above: take 1 capsule by mo ut four times a day before meals and at bedtime docusate sodium 100 mg oral capsule (20 sources) Start: 03-16-2023 End: 04-15-2023 take 1 capsule by mouth every twelve hours as needed docusate sodium (COLACE) 100 mg capsule Take 1 capsule by mouth twice daily as needed for constipation. 60 capsule 0 03/16/2023 04/15/2023 Start: 05-06-2022 End: 08-04-2022 take 1 capsule by mouth twice daily docusate sodium (COLACE) 100 mg capsule Take 1 capsule by mouth twice daily. 60 capsule 2 05/06/2022 08/04/2022 Active Comment on above: Take 1 capsule by [facility] twice daily. Take 1 capsule by [facility] twice daily as needed for constipation. erythromycin 0.005 mg/mg ophthalmic ointment (7 sources) Macrolide, Macrolide Antimicrobial Start: 02-01-2021 End: 02-03-2021 Erythromycin Discontinued 1 APPLIC OPHTHALMIC AT BEDTIME February 01, 2021 12:00am February 03, 2021 11:39am Left eye Start: 09-30-2019 End: 04-22-2021 erythromycin ophthalmic oint ment Use 1 application in the left eye daily at bedtime. Apply 1/2 inch ribbon per application 09/30/2019 04/22/2021 Discontinued famotidine 40 mg oral tablet (7 sources) Histamine-2 Receptor Antagonist Start: 07-12-2021 End: 11-29-2021 take 1 tablet by mouth once daily at bedtime famotidine (PEPCID) 40 mg tablet Take 1 tablet by mouth daily at bedtime. 30 tablet 2 07/12/2021 11/29/2021 Discontinued Comment on above: [facility] furosemide 20 mg oral tablet (17 sources) Loop Diuretic Start: 09-03-2021 End: 12-27-2021 take 20 mg by mouth every other day Furosemide Discontinued 20 MG PO every other day September 28, 2021 12:04pm December 27, 2021 11:40am Comment on above: Take 1 tablet by jhonatan th every other day with potassium glyBURIDE 2.5 mg oral tablet (20 sources) Sulfonylurea Start: 08-17-2022 End: 08-29-2022 take 1 tablet by mouth once daily at breakfast glyBURIDE (DIABETA) 2.5 mg tablet Take 1 tablet by mouth daily with breakfast. 90 tablet 3 08/17/2022 08/29/2022 Discontinued (Discontinued by Patient) Start: 04-21-2022 End: 08-17-2022 take 0.5 tablet by mouth once daily at breakfast glyBURIDE (DIABETA) 2.5 mg tablet Take 0.5 tablets by mouth daily with breakfast. 90 tablet 3 04/21/2022 08/17/2022 Discontinued Start: 04-15-2022 End: 10-07-2022 take 1.25 mg by mouth once daily Glyburide Discontinue d 1.25 MG PO DAILY April 15, 2022 3:34pm October 07, 2022 2:49pm Start: 04-14-2020 End: 04-21-2022 take 1 tablet by mouth once daily at breakfast glyBURIDE (DIABETA) 2.5 mg tablet Take 1 tablet by mouth daily with breakfast. 90 tablet 3 04/14/2020 04/12/2021 Discontinued Comment on above: Take 1 tablet by jhonatan th daily with breakfast. Take 0.5 tablets by mouth daily with breakfast. hydroCHLOROthiazide 12.5 mg / valsartan 320 mg oral tablet (8 sources) Thiazide Diuretic, Angiotensin 2 Receptor Katina Start: End: take 1 tablet by mouth once daily Valsartan-Hydrochlo rothiazide Discontinued 1 TABLET PO DAILY February 01, 2021 12:00am June 01, 2021 1:38pm Start: 12-06-2019 End: 06-14-2021 take 1 tablet by mouth once daily Valsartan-hydroCHLOROthiazide 320-12.5 m g per tablet Indications: Essential hypertension, benign Take 1 tablet by mouth once daily. 90 tablet 3 11/30/2020 06/14/2021 Discontinued hydrocortisone 25 mg/ml topical cream (7 sources) Corticosteroid Start: 05-01-2020 End: 09-03-2021 hydrocortisone (ANUSOL-HC) 2.5 % rectal cream by RECTAL route twice daily. 28 g 2 05/01/2020 09/03/2021 Discontinued (Course of therapy completed) ibuprofen 600 mg oral tablet (11 sources) Nonsteroidal Anti-inflammatory Drug Start: 05-06-2022 End: 08-17-2022 take 1 tablet by mouth every six hours as needed ibuprofen (MOTRIN) 600 mg tablet Take 1 tablet by mouth every 6 hours as needed for pain. 20 tablet 2 05/06/2022 08/17/2022 Discontinued (Discontinued by Patient) Comment on above: Take 1 tablet by jhonatan th every 6 hours as needed for pain. ketorolac tromethamine 4 mg/ml ophthalmic solution (7 sources) Nonsteroidal Anti-inflammatory Drug, Cyclooxygenase Inhibitor Start: 02-01-2021 End: 02-03-2021 take 0.4 drop(s) into the eye(s) twice daily Ketorolac (Acular Ls) 0.4 % drops Discontinued 1 DRP OPHTHALMIC TWICE A DAY February 01, 2021 12:00am February 03, 2021 11:39am Left eye Start: 09-30-2019 End: 04-22-2021 Ketorolac Tromethamine (ACUL AR LS) 0.4 % drop Use 1 Drop in the left eye twice daily. 1 Bottle 09/30/2019 04/22/2021 Discontinued L.acid/B.animalis,bifidum/FO S (PROBIOTIC COMPLEX ORAL) (20 sources) End: 04-22-2022 L.acid/B.animalis,bifidum/FO S (PROBIOTIC COMPLEX ORAL) Take by mouth. 0 04/22/2022 Discontinued L.acid/B.animali s,bifidum/FOS (PROBIOTIC COMPLEX ORAL) Take by mouth. 0 Active Comment on above: Take by mouth. Lactobacillus acidophilus (2 sources) End: 1 take 1 capsule by mouth once daily Lactobacillus acidophilus (PROBIOTIC ORAL) Take 1 capsule by mouth once daily. 04/22/2021 Discontinued LOW-DOSE ASPIRIN ORAL (20 sources) End: 3 take 81 mg by mouth once daily LOW-DOSE ASPIRIN ORAL Indications: Coronary artery disease involving [place] heart without angina pectoris, unspecified vessel or lesion type Take 81 mg by mouth once daily. 03/16/2023 Discontinued End: 03-16-2023 take 81 mg by mouth once daily LOW-DOSE ASPIRIN ORAL Indications: Coronary artery disease involving [place] heart without angina pectoris, unspecified vessel or lesion type Take 81 mg by mouth once daily. 0 03/16/2023 Discontinued take 81 mg by mouth once daily L OW-DOSE ASPIRIN ORAL Indications: Coronary artery disease involving [place] heart without angina pectoris, unspecified vessel or lesion type Take 81 mg by mouth once daily. 0 Active Comment on above: Take 81 mg by mouth once daily. 50 ml magnesium sulfate 40 mg/ml injection (1 source) Start: 03-02-20 End: 03-02-20 magnesium sulfate 2000 mg in 50 mL IVPB premix meloxicam 7.5 mg oral tablet (7 sources) Nonsteroidal Anti-inflammatory Drug Start: 11-29-19 End: 09-28-19 take 1 tablet by mouth every twelve hours as needed meloxicam (MOBIC) 7.5 mg tablet Take 7.5 mg by mouth twice daily as needed. 11/28/2018 04/22/2021 Discontinued metFORMIN hydrochloride 500 mg oral tablet (20 sources) Biguanide Start: 05-18-20 End: 02-21-20 take 1 tablet by mouth once daily at breakfast metFORMIN (GLUCOPHAGE) 500 mg tablet Take 1 tablet by mouth daily with breakfast. 0 05/18/2023 02/21/2024 Discontinued Start: 02-05-2020 End: 05-18-2023 take 1 tablet by mouth once daily at breakfast metFORMIN (GLUCOPHAGE) 1,000 mg tablet Take 1 tablet by mouth daily with breakfast. 90 tablet 3 02/10/2021 02/11/2022 Discontinued Comment on above: Take 1 tablet by jhonatan th daily with breakfast. metoprolol tartrate 25 mg oral tablet (20 sources) beta-Adrenergic Katina Start: 10-07-2022 End: 10-06-2023 take 25 mg by mouth twice daily Metoprolol Tartrate Discontinued 25 MG PO TWICE A DAY 60 September 25, 2023 11:10am October 06, 2023 12:28pm Start: 05-04-2022 End: 10-07-2022 take 1 tablet by mouth twice daily Metoprolol Tartrate Discontinued 0 .ROUTE .COMPLEX 180 May 04, 2022 11:31am October 07, 2022 3:48pm take 1 tablet by mouth twice a day Start: 09-28-2021 End: 05-04-2022 take 50 mg by mouth twice daily Metoprolol Tartrate Di scontinued 50 MG PO TWICE A DAY September 28, 2021 1:00am May 04, 2022 11:31am Start: 05-18-2021 take 1 tablet by jhonatan th once daily metoprolol tartrate, short acting, (LOPRESSOR) 50 mg tablet Take 50 mg by mouth once daily. 05/18/2021 Active Start: 05-18-2021 End: 09-28-2021 take 50 mg by mouth twice daily Metoprolol Tartrate Di scontinued 50 MG PO TWICE A DAY 180 May 18, 2021 3:50pm September 28, 2021 11:33am Start: 03-05-2021 End: 05-17-2021 Metoprolol Tartrate Disconti nued EACH PO March 05, 2021 12:00am May 17, 2021 1:52pm Start: 03-05-2021 End: 05-18-2021 take 50 mg by mouth twice daily Metoprolol Tartrate Di scontinued 50 MG PO TWICE A DAY 60 May 17, 2021 1:08pm May 18, 2021 1:30pm Start: 03-03-2021 take 1 tablet by jhonatan th twice daily metoprolol tartrate (LOPRESSOR) 25 MG tablet Take 1 tablet by mouth 2 times daily 60 tablet 3 03/03/2021 Active Start: 03-01-2021 metoprolol tar trate (LOPRESSOR) tablet 25 mg End: 06-14-2021 metoprolol tartrate, short a cting, (LOPRESSOR) 25 mg tablet Indications: Coronary artery disease involving [place] heart without angina pectoris, unspecified vessel or lesion type Take 50 mg by mouth twice daily. 06/14/2021 Discontinued Comment on above: Take 50 mg by mouth twice daily. Take 50 mg by mouth once daily. olopatadine 1 mg/ml ophthalmic solution (8 sources) Histamine-1 Receptor Inhibitor Start: 02-01-2021 End: 08-17-2021 Olopatadine Discontinued 1 DRP OPHTHALMIC TWICE A DAY February 01, 2021 12:00am August 17, 2021 2:29pm separate doses by at least 6-8 hours End: 04-22-2021 olopatadine (PATANOL) 0.1 % ophthalmic solution 1 Drop. 04/22/2021 Discontinued 24 hr oxybutynin chloride 5 mg extended release oral tablet (6 sources) Cholinergic Muscarinic Antagonist Start: 02-01-2021 End: 02-01-2021 take 5 mg by mouth once daily Oxybutynin Chloride Discontinued 5 MG PO DAILY February 01, 2021 12:00am February 01, 2021 11:46am Start: 04-30-2020 End: 11-09-2020 take 1 tablet by mouth once daily oxybutynin XL (DITROPAN XL) 5 mg 24 hr tablet Take 1 tablet by mouth once daily. 90 tablet 1 04/30/2020 11/09/2020 Discontinued oxyCODONE hydrochloride 5 mg oral tablet (20 sources) Opioid Agonist Start: 03-16-2023 take 1 tablet by mouth every six hours as needed oxyCODONE IR (ROXICODONE) 5 mg immediate release tablet Indications: S/P total right hip arthroplasty Take 1-2 tablets by mouth every 6 hours as needed for pain. 30 tablet 0 03/16/2023 Active Start: 05-06-2022 End: 08-17-2022 take 1 tablet by mouth every eight hours as needed for pain oxyCODONE IR (ROXICODONE) 5 mg immediate release tablet Indications: Acute postoperative pain Take 1 tablet by mouth every 8 hours as needed for pain. 5 tablet 0 05/06/2022 08/17/2022 Discontinued (Discontinued by Patient) Comment on above: Take 1 tablet by [facility] every 8 hours as needed for pain. Take 1-2 tablets by mouth every 6 hours as needed for pain. polyethylene glycol 3350 41545 mg powder for oral solution (20 sources) Osmotic Laxative Start: 03-16-2023 End: 03-30-2023 polyethylene glycol 3350 (MIRALAX) 17 gram/dose powder Take 17 g by mouth once daily as needed for constipation for up to 10 days. Dissolve dose in 4 - 8 ounces of liquid and take as directed. 238 g 0 03/16/2023 03/30/2023 Start: 05-06-2022 End: 08-17-2022 polyethylene glycol 3350 (KS RALAX) 17 gram/dose powder Take 17 g by mouth once daily. Dissolve dose in 4 - 8 ounces of liquid and take as directed. 510 g 2 05/06/2022 08/17/2022 Discontinued (Discontinued by Patient) Start: 03-01-2021 polyethylene g lycol (GLYCOLAX) packet 17 g Comment on above: Take 17 g by mouth o nce daily. Dissolve dose in 4 - 8 ounces of liquid and take as directed. Take 17 g by mouth o nce daily as needed for constipation for up to 10 days. Dissolve dose in 4 - 8 ounces of liquid and take as directed. potassium chloride 10 meq extended release oral tablet (12 sources) Start: 2 End: 3 take 20 mEq by mouth every other day Potassium Chloride Discontinued 20 MEQ PO every other day September 28, 2021 1:00am October 07, 2022 2:51pm Start: 09-03-2021 End: 11-29-2021 take 1 tablet by mouth every other day potassium chloride (K-TAB) 10 mEq tablet Take 1 tablet by mouth every other day with lasix 45 tablet 3 09/03/2021 11/29/2021 Discontinued Comment on above: Take 1 tablet by jhonatan th every other day with lasix prednisoLONE acetate 10 mg/ml ophthalmic suspension (15 sources) Corticosteroid Start: 02-01-2021 End: 04-22-2021 Prednisolone Acetate Discontinued 1 DRP OPHTHALMIC 4 TIMES DAILY February 01, 2021 12:00am February 03, 2021 11:39am Right eye Start: 09-30-2019 End: 04-22-2021 prednisoLONE acetate (PRED F ORTE, ECONOPRED PLUS) 1 % ophthalmic suspension Use 1 Drop in the left eye four times daily. 1 Bottle 6 09/30/2019 04/22/2021 Discontinued take 1 drop(s) into the eye(s) four times daily prednisoLONE acetate (PRED MILD) 0.12 % ophthalmic suspension 1 drop 4 times daily 0 Suspended predniSONE 10 mg oral tablet (6 sources) Start: 01-03-2022 predniSONE (DELTASONE) 10 mg tablet Indications: Right hip pain , Primary osteoarthritis of right hip 6 tabs po day 1, then 5 tabs day 2, 4 tabs day 3, 3 tabs day 4, 2 tabs day 5, 1 tab day 6. 21 tablet 0 01/03/2022 Active Comment on above: 6 tabs po day 1, the n 5 tabs day 2, 4 tabs day 3, 3 tabs day 4, 2 tabs day 5, 1 tab day 6. pregabalin 75 mg oral capsule (20 sources) Start: 05-19-2022 End: 11-16-2022 take 1 capsule by mouth twice daily, then take 1 capsule by mouth at dinner, then take 1 capsule by mouth at bedtime pregabalin (LYRICA) 75 mg capsule Indications: RLS (restless legs syndrome) Take 1 capsule by mouth twice daily for 90 days. Take one capsule with dinner and one capsule at bedtime. 60 capsule 0 08/18/2022 09/30/2022 Discontinued Comment on above: Take [address] [facility] twice daily for 90 days. Take one capsule with dinner and one capsule at bedtime. 1 mg dose 1.5 ml semaglutide 1.34 mg/ml pen injector (20 sources) Start: 08-22-2022 End: 02-21-2024 inject 1 mg by subcutaneous injection every week semaglutide (OZEMPIC) 1 mg/dose (2 mg/1.5 mL) pen Indications: Type 2 diabetes mellitus with other specified complication, without long-term current use of insulin (HCC) Inject 1 mg subcutaneously one time a week. 6 mL 3 10/12/2023 02/21/2024 Discontinued Start: 08-02-2021 End: 09-28-2021 Semaglutide (Ozempic) 0.25 m g or 0.5 mg(2 mg/1.5 mL) pen injector Discontinued 1 MG SC EVERY WEEK August 02, 2021 11:16am September 28, 2021 11:38am for 4 doses Start: 07-14-2021 End: 08-19-2022 inject 1 mg by subcutaneous injection every week semaglutide (OZEMPIC) 1 mg/dose (2 mg/1.5 mL) pen Inject 1 mg subcutaneously one time a week. 6 mL 11 07/22/2022 08/19/2022 Discontinued Start: 02-16-2021 End: 08-02-2021 Semaglutide (Ozempic) 0.25 m g or 0.5 mg(2 mg/1.5 mL) pen injector Discontinued 0.25 MG SC EVERY WEEK March 05, 2021 12:00am August 02, 2021 11:16am for 4 doses Start: 02-16-2021 End: 06-16-2021 Semaglutide,0.25 or 0.5MG/DO S, (OZEMPIC, 0.25 OR 0.5 MG/DOSE,) 2 MG/1.5ML SOPN Inject into the skin 0 02/16/2021 06/16/2021 Suspended Comment on above: Inject 1 mg subcutan eously one time a week. semaglutide (OZEMPIC) 1 mg/dose (4 mg/3 mL) pen (14 sources) Start: End: inject 1 mg by subcutaneous injection every week semaglutide (OZEMPIC) 1 mg/dose (4 mg/3 mL) pen Indications: Type 2 diabetes mellitus without complication, without long-term current use of insulin (HCC) Inject 1 mg subcutaneously one time a week. 9 mL 1 10/12/2023 02/21/2024 Discontinued (Adjust Sig - Block E-Cancel) Start: 10-12-2023 inject 1 mg by subcu taneous injection every week semaglutide (OZEMPIC) 1 mg/dose (4 mg/3 mL) pen Indications: Type 2 diabetes mellitus without complication, without long-term current use of insulin (HCC) Inject 1 mg subcutaneously one time a week. 9 mL 1 10/12/2023 Active Comment on above: Inject 1 mg subcutan eously one time a week. SITagliptin 100 mg oral tablet (8 sources) Dipeptidyl Peptidase 4 Inhibitor Start: 12-25-19 End: 09-28-19 22 take 1 tablet by mouth once daily JANUVIA 100 mg tablet Indications: Type 2 diabetes mellitus with other specified complication, without long-term current use of insulin (HCC) Take 1 tablet by mouth once daily. 90 tablet 3 12/15/2020 07/14/2021 Discontinued ticagrelor 90 mg oral tablet (20 sources) Start: 03-05-20 End: 10-07-19 23 take 90 mg by mouth twice daily Ticagrelor Discontinued 90 MG PO TWICE A DAY 180 February 21, 2022 11:22am April 15, 2022 3:36pm Start: 03-03-2021 take 1 tablet by jhonatan th twice daily ticagrelor (BRILINTA) 90 MG TABS tablet Take 1 tablet by mouth 2 times daily 60 tablet 11 03/03/2021 Active Start: 03-01-2021 End: 04-22-2022 ticagrelor (BRILINTA) tablet 90 mg Comment on above: Take 90 mg by mouth twice daily. tiZANidine 2 mg oral capsule (7 sources) Central alpha-2 Adrenergic Agonist Start: 0 End: 2 take 1 capsule by mouth once daily at bedtime tiZANidine HCl 2 mg capsule Take 1 capsule by mouth daily at bedtime. 30 capsule 01/31/2020 04/22/2021 Discontinued Ubidecarenone-[place] 3-Vit E (5 sources) Start: 1 End: 2 take 1 capsule by mouth once daily Ubidecarenone-[place] 3-Vit E Discontinued 1 CAP PO DAILY January 31, 2021 11:00pm September 28, 2021 10:40am Start: 02-01-2021 End: 09-28-2021 take 1 capsule by mouth once daily Ubidecarenone-[place] 3-Vit E Discontinued 1 CAP PO DAILY February 01, 2021 12:00am September 28, 2021 11:40am UBIDECARENONE-OMEGA 3-VIT E ORAL (7 sources) Start: 02-01-2021 End: 11-29-2021 take 1 tablet by mouth once daily UBIDECARENONE-OMEGA 3-VIT E ORAL Take 1 tablet by mouth once daily. 0 02/01/2021 11/29/2021 Discontinued Start: 02-01-2021 take 1 tablet by jhonatan th once daily UBIDECARENONE-OMEGA 3-VIT E ORAL Take 1 tablet by mouth once daily. 0 02/01/2021 Active Comment on above: Take 1 tablet by jhonatan th once daily. ubidecarenone/vitamin E mixed (COQ10 SG 100 ORAL) (2 sources) End: 06-14-2021 ubidecarenone/vitamin E mixed (COQ10 SG 100 ORAL) Take 200 mg by mouth once daily. 06/14/2021 Discontinued urea 400 mg/ml topical cream (11 sources) Start: 02-25-2022 End: 02-25-2023 urea (CARMOL) 40 % Apply to affected area once daily. 198 g 11 02/25/2022 04/22/2022 Discontinued Comment on above: Apply to affected ar ea once daily. wheat dextrin 3000 mg powder for oral solution (20 sources) Start: 02-01-2021 End: 04-22-2022 Wheat Dextrin 3 gram/3.5 gram Take by mouth as needed. 0 02/01/2021 04/22/2022 Discontinued Start: 02-01-2021 End: 10-07-2022 take 4 [oz_av] by mouth once daily Wheat Dextrin (Benefiber Sugar Free (Dextrin)) 3 gram/3.8 gram powder Discontinued 1 PACKET PO DAILY September 28, 2021 11:42am October 07, 2022 2:52pm mix into at least 4 oz water or juice before administering End: 04-22-2022 WHEAT DEXTRIN ORAL Take by parvin Riley 0 04/22/2022 Discontinued Comment on above: Take by mouth. Take by mouth as nee ded. Take by mouth. Gummy zinc acetate 50 mg oral capsule (20 sources) Start: 03-17-2023 take 50 mg by mouth once daily ZINC ACETATE ORAL Take 50 mg by mouth once daily. 0 03/17/2023 Active Comment on above: Take 50 mg by mouth once daily. Problems Active Problems Problem Classification Problem Date Documented Da te Episodic/Chronic Acquired foot deformities (7 sources) Hammer toe; Translations: [Other hammer toe(s) (acquired), right foot] Onset: 12-23-2024 Chronic Acquired foot deformities (1 source) Acquired bilateral pes planus; Translations: [Flat foot [pes planus] (acquired), right foot] Episodic Administrative/social admission (20 sources) Patient encounter status; Translations: [Dietary counseling and surveillance] Onset: 05-10-2021 Episodic Anxiety disorders (20 sources) Mixed anxiety and depressive disorder; Translations: [Anxiety disorder, unspecified] Onset: 04-10-2019 04-10-2019 Chronic Cardiac dysrhythmias (6 sources) Palpitations - rapid; Translations: [Palpitations] Episodic Chronic kidney disease (20 sources) Chronic kidney disease; Translations: [Chronic kidney disease, unspecified] Onset: 05-10-2021 05-10-2021 Chronic Conduction disorders (20 sources) Left bundle branch block; Translations: [Left bundle-branch block, unspecified] Onset: 02-27-2023 Chronic Coronary atherosclerosis and other heart disease (20 sources) Coronary atherosclerosis; Translations: [Atherosclerotic heart disease of [place] coronary artery without angina pectoris] Onset: 03-01-2021 Chronic Diabetes mellitus with complications (20 sources) Type 2 diabetes mellitus; Translations: [Type 2 diabetes mellitus with other specified complication] Onset: 04-10-2019 Chronic Diabetes mellitus without complication (20 sources) Type 2 diabetes mellitus without complication; Translations: [Type 2 diabetes mellitus without complications] Onset: 04-10-2019 Chronic Diabetes mellitus without complication (1 source) Impaired fasting glycemia; Translations: [Impaired fasting glucose] Episodic Disorders of lipid metabolism (20 sources) Mixed hyperlipidemia; Translations: [Mixed hyperlipidemia] Onset: 04-10-2019 04-10-2019 Chronic E Codes: Fall (1 source) Fall; Translations: [Unspecified fall, initial encounter] 07-22-2020 Episodic Esophageal disorders (20 sources) Gastro-esophageal reflux disease with esophagitis; Translations: [Gastroesophageal reflux disease with esophagitis, unspecified whether hemorrhage] Onset: 04-10-2019 Chronic Esophageal disorders (1 source) Esophageal disorders; Translations: [Gastroesophageal reflux disease with esophagitis, unspecified whether hemorrhage] Onset: 11-01-2021 Essential hypertension (20 sources) Benign essential hypertension; Translations: [Essential (primary) hypertension] Onset: 04-10-2019 04-10-2019 Chronic Fluid and electrolyte disorders (5 sources) Hyponatremia; Translations: [Hypo-osmolality and hyponatremia] 10-06-2022 Episodic Genitourinary symptoms and ill-defined conditions (1 source) Incontinence; Translations: [Mixed incontinence] Chronic Immunizations and screening for infectious disease (2 sources) Encounter for observation for suspected exposure to other biological agents ruled out; Translations: [Encounter for immunization] Onset: 06-12-2020 Episodic Miscellaneous mental health disorders (1 source) Feeling lonely; Translations: [Other symptoms and signs involving emotional state] 02-24-2025 Episodic Mycoses (1 source) Onychomycosis; Translations: [Tinea unguium] Episodic Nutritional deficiencies (4 sources) Vitamin D deficiency, unspecified; Translations: [Vitamin D deficiency] Onset: 05-15-2023 12-18-2023 Chronic Nutritional deficiencies (2 sources) Iron deficiency; Translations: [Iron deficiency] Onset: 05-15-2023 12-18-2023 Episodic Open wounds of extremities (1 source) Open wound of toe; Translations: [Unspecified open wound of unspecified toe(s) without damage to nail, initial encounter] Episodic Osteoarthritis (20 sources) Degenerative joint disease involving multiple joints; Translations: [Polyosteoarthritis, unspecified] Onset: 04-10-2019 04-10-2019 Chronic Other bone disease and musculoskeletal deformities (1 source) Somatic dysfunction of lumbar region; Translations: [Segmental and somatic dysfunction of lumbar region] Episodic Other circulatory disease (2 sources) Abnormal peripheral pulse; Translations: [Other specified symptoms and signs involving the circulatory and respiratory systems] 12-23-2024 Episodic Other connective tissue disease (2 sources) History of total knee arthroplasty; Translations: [Presence of artificial knee joint, bilateral] Chronic Other connective tissue disease (3 sources) History of total hip arthroplasty; Translations: [Presence of right artificial hip joint] 04-18-2023 Chronic Other connective tissue disease (3 sources) Presence of right artificial hip joint; Translations: [S/P total right hip arthroplasty] Onset: 03-15-2023 Chronic Other connective tissue disease (4 sources) History of repair of hip joint; Translations: [Presence of right artificial hip joint] 05-22-2023 Chronic Other connective tissue disease (1 source) History of bilateral total knee replacement; Translations: [Presence of artificial knee joint, bilateral] 06-05-2023 Chronic Other connective tissue disease (1 source) Pain of left hand; Translations: [Pain in left hand] 07-22-2020 Episodic Other connective tissue disease (1 source) Pain in left finger(s); Translations: [Pain of left thumb] Onset: 05-12-2025 Episodic Other ear and sense organ disorders (1 source) Impacted cerumen, right ear; Translations: [Impacted cerumen, right ear] Onset: 06-02-2025 Episodic Other female genital disorders (1 source) Vaginal discharge; Translations: [Other specified noninflammatory disorders of vagina] Episodic Other gastrointestinal disorders (20 sources) Irritable bowel syndrome; Translations: [Other irritable bowel syndrome] Onset: 04-10-2019 04-10-2019 Chronic Other gastrointestinal disorders (1 source) Diarrhea, unspecified; Translations: [Diarrhea, unspecified] Onset: 06-12-2020 Episodic Other gastrointestinal disorders (1 source) Diarrhea; Translations: [Diarrhea, unspecified] Episodic Other gastrointestinal disorders (1 source) Dysphagia; Translations: [Dysphagia, unspecified] Episodic Other hereditary and degenerative nervous system conditions (20 sources) Restless legs; Translations: [Restless legs syndrome] Onset: 04-10-2019 04-10-2019 Chronic Other hereditary and degenerative nervous system conditions (1 source) Restless legs syndrome; Translations: [RLS (restless legs syndrome)] Onset: 04-10-2019 Chronic Other inflammatory condition of skin (1 source) Intertrigo; Translations: [Erythema intertrigo] 02-21-2024 Episodic Other lower respiratory disease (10 sources) Dyspnea on exertion; Translations: [Other forms of dyspnea] 06-10-2021 Episodic Other lower respiratory disease (5 sources) Dyspnea; Translations: [Shortness of breath] 06-10-2021 Episodic Other lower respiratory disease (5 sources) Sleep finding; Translations: [Orthopnea] 06-10-2021 Episodic Other lower respiratory disease (2 sources) Other forms of dyspnea; Translations: [Other respiratory abnormalities] 10-06-2023 Episodic Other nervous system disorders (1 source) Reduced mobility; Translations: [Other abnormalities of gait and mobility] 02-24-2025 Episodic Other non-traumatic joint disorders (1 source) Pain in right hip joint; Translations: [Pain in right hip] Episodic Other non-traumatic joint disorders (2 sources) Hip pain; Translations: [Pain in right hip] Episodic Other non-traumatic joint disorders (1 source) Multiple joint pain; Translations: [Pain in unspecified joint] 02-24-2025 Episodic Other nutritional; endocrine; and metabolic disorders (20 sources) Severe obesity; Translations: [Morbid (severe) obesity due to excess calories] Onset: 04-06-2019 Chronic Other nutritional; endocrine; and metabolic disorders (2 sources) Body mass index (BMI) 45.0-49.9, adult; Translations: [Class 3 severe obesity without serious comorbidity with body mass index (BMI) of 45.0 to 49.9 in adult, unspecified obesity type (HCC)] Onset: 12-09-2024 Chronic Other nutritional; endocrine; and metabolic disorders (1 source) Body mass index (BMI) 40.0-44.9, adult; Translations: [Class 3 severe obesity with body mass index (BMI) of 40.0 to 44.9 in adult, unspecified obesity type, unspecified whether serious comorbidity present (HCC)] Onset: 01-20-2025 Chronic Other nutritional; endocrine; and metabolic disorders (1 source) Morbid (severe) obesity due to excess calories; Translations: [Class 3 severe obesity without serious comorbidity with body mass index (BMI) of 45.0 to 49.9 in adult, unspecified obesity type (HCC)] Onset: 09-09-2024 Chronic Other screening for suspected conditions (not mental disorders or infectious disease) (5 sources) Thallium stress test abnormal; Translations: [Abnormal result of other cardiovascular function study] 06-10-2021 Episodic Other skin disorders (5 sources) Callosity; Translations: [Corns and callosities] Episodic Other upper respiratory infections (2 sources) Chronic sinusitis; Translations: [Chronic sinusitis, unspecified] Onset: 06-02-2025 10-14-2024 Chronic Prolapse of female genital organs (20 sources) Midline cystocele; Translations: [Cystocele, midline] Onset: 04-27-2022 Chronic Residual codes; unclassified (1 source) Obstructive sleep apnea (adult) (pediatric); Translations: [MAURICE (obstructive sleep apnea)] Onset: 01-20-2025 Chronic Residual codes; unclassified (2 sources) Postoperative state; Translations: [Other specified postprocedural states] Episodic Spondylosis; intervertebral disc disorders; other back problems (1 source) Degeneration of lumbosacral intervertebral disc; Translations: [Other intervertebral disc degeneration, lumbosacral region] Chronic Thyroid disorders (20 sources) Hypothyroidism; Translations: [Hypothyroidism, unspecified] Onset: 04-10-2019 04-10-2019 Chronic Unclassified (2 sources) Invalid ICD10 Description; Translations: [Invalid ICD10 Description] Onset: 06-12-2020 Unclassified (5 sources) High Risk Chronic Disease Home Monitoring Problem Onset: 12-27-2022 12-27-2022 Unclassified (1 source) Class 3 severe obesity without serious comorbidity with body mass index (BMI) of 45.0 to 49.9 in adult, unspecified obesity type (HCC); Translations: [Class 3 severe obesity without serious comorbidity with body mass index (BMI) of 45.0 to 49.9 in adult, unspecified obesity type (HCC)] Onset: 06-02-2025 Unclassified (1 source) Degeneration of intervertebral disc of lumbar region with lower extremity pain; Translations: [Degeneration of intervertebral disc of lumbar region with lower extremity pain] Onset: 05-12-2025 Unclassified (1 source) Class 3 severe obesity with body mass index (BMI) of 40.0 to 44.9 in adult, unspecified obesity type, unspecified whether serious comorbidity present (HCC); Translations: [Class 3 severe obesity with body mass index (BMI) of 40.0 to 44.9 in adult, unspecified obesity type, unspecified whether serious comorbidity present (HCC)] Onset: 01-20-2025 Unclassified (1 source) Class 3 severe obesity without serious comorbidity with body mass index (BMI) of 45.0 to 49.9 in adult, unspecified obesity type; Translations: [Class 3 severe obesity without serious comorbidity with body mass index (BMI) of 45.0 to 49.9 in adult, unspecified obesity type] Onset: 12-09-2024 Past or Other Problems Problem Classification Problem Date Documented Da te Episodic/Chronic Coronary atherosclerosis and other heart disease (5 sources) Presence of coronary angioplasty implant and graft; Translations: [Percutaneous transluminal coronary angioplasty status] Onset: 03-02-2021 Episodic Deficiency and other anemia (20 sources) Iron deficiency anemia; Translations: [Iron deficiency anemia, unspecified] Onset: 04-10-2019 04-10-2019 Episodic Deficiency and other anemia (1 source) Iron deficiency anemia, unspecified; Translations: [Iron deficiency anemia, unspecified iron deficiency anemia type] Onset: 04-10-2019 Episodic Fracture of upper limb (20 sources) Closed fracture of distal phalanx of finger; Translations: [Nondisplaced fracture of distal phalanx of unspecified finger, subsequent encounter for fracture with routine healing] Onset: 10-26-2020 Resolved: 11-19-2020 11-19-2020 Episodic Genitourinary symptoms and ill-defined conditions (20 sources) Urgent desire to urinate; Translations: [Urgency of urination] Onset: 02-27-2023 Episodic Headache; including migraine (20 sources) Chronic headache disorder; Translations: [Chronic headache] Onset: 04-10-2019 04-10-2019 Episodic Malaise and fatigue (2 sources) Fatigue; Translations: [Other fatigue] Onset: 02-24-2025 02-24-2025 Episodic Other circulatory disease (1 source) Other specified symptoms and signs involving the circulatory and respiratory systems; Translations: [Diminished pulses in lower extremity] Onset: 12-23-2024 Episodic Other connective tissue disease (20 sources) Fibromyalgia; Translations: [Fibromyalgia] Onset: 04-10-2019 04-10-2019 Episodic Other connective tissue disease (1 source) Fibromyalgia; Translations: [Fibromyalgia] Onset: 04-10-2019 Episodic Other eye disorders (20 sources) Fuchs' corneal dystrophy; Translations: [Fuchs' endothelial dystrophy] Onset: 04-10-2019 04-10-2019 Episodic Other nervous system disorders (20 sources) Acute postoperative pain; Translations: [Other acute postprocedural pain] Onset: 05-06-2022 05-06-2022 Episodic Other nervous system disorders (1 source) Other abnormalities of gait and mobility; Translations: [Decreased mobility] Onset: 02-24-2025 Episodic Other non-traumatic joint disorders (2 sources) Pain in right shoulder; Translations: [Pain in joint, shoulder region] Onset: 08-26-2024 08-26-2024 Episodic Other non-traumatic joint disorders (1 source) Pain in unspecified joint; Translations: [Multiple joint pain] Onset: 02-24-2025 Episodic Other skin disorders (1 source) Corns and callosities; Translations: [Callus] Onset: 12-23-2024 Episodic Other upper respiratory infections (5 sources) Acute pharyngitis, unspecified; Translations: [Acute frontal sinusitis] Onset: 06-12-2020 Episodic Residual codes; unclassified (20 sources) Obstructive sleep apnea syndrome; Translations: [Obstructive sleep apnea (adult) (pediatric)] Onset: 04-10-2019 Resolved: 09-01-2023 04-10-2019 Chronic Spondylosis; intervertebral disc disorders; other back problems (20 sources) Chronic back pain ; Translations: [Dorsalgia, unspecified] Onset: 04-10-2019 Resolved: 11-19-2020 04-10-2019 Episodic Unclassified (1 source) History of repair of hip joint 04-30-2025 Results Test Name Value Interpretation Reference Range Facility [facility]2025 [facility] KEMAL CANTU ([id number]) 1945 F Date Time Provider Department 06/04/25 HELEN CHAPA During your visit today, we recorded the following information about you: Patti Lindsey LPN 06/04/2025 2:23 PM Signed Patient calling she is taking an antibiotic for sinus infection and now has vaginal yeast infection. Patient said she has 6 more days of the antibiotic rx to take. Patient is asking for a diflucan rx to be sent to [facility] [place] pharmacy. Pending rx needs completed. Please advise The patient has been identified by name and date of : Yes Caregiver verified no other encounters exist for this prescription request: Yes Caregiver confirmed with patient/requestor that no other refills are due, in the near future, with this provider at this time: Yes The last office visit in the department: 05/29/2025 Does the patient have a future office visit with this provider/department: Yes 08/29/2025 Requested Prescriptions Pending Prescriptions Disp Refills fluconazole (DIFLUCAN) 150 mg tablet 0 Sig: Take 1 tablet by mouth one time only for 1 dose. Repeat in 3 days as needed. Patti Lindsey LPN June 04, 2025 2:22 PM Samira Rueda MA 06/09/2025 9:32 AM Signed The following approved medication requests have been transmitted electronically. Requested Prescriptions Signed Prescriptions Disp Refills fluconazole (DIFLUCAN) 150 mg tablet 3 tablet 0 Sig: Take 1 tablet by mouth one time only for 1 dose. Repeat in 3 days as needed. Authorizing Provider: HELEN CHAPA MA Allergies As of Date: 06/04/2025 Noted Allergy Reaction BACITRACIN (BULK) 02/07/2019 4 - Hives CODEINE 02/07/2019 16 - Unknown DUST MITES 01/23/2020 14 - Other: See Comments GENTAMICIN 11/30/2021 7 - Swelling Comments: redness of eye watery and itching MOLD 01/23/2020 16 - Unknown SULFA (SULFONAMIDE ANTIBIOTICS) 02/07/2019 14 - Other: See Comments Comments: redness SULFABENZAMIDE 11/30/2021 4 - Hives TREE POLLEN-RED MAPLE 02/16/2021 12 - Shortness of Breath Date Reviewed: 06/02/2025 Reviewed by: Sridhar Naik MA - Fully Assessed Reason for Visit: Medication Request [138] Order(s):[] fluconazole (DIFLUCAN) 150 mg tabletTake 1 tablet by mouth one time only for 1 dose. Repeat in 3 days as needed.Disp: 3 tabletRfl: 0 Prescriptions as of 06/09/2025 - gabapentin enacarbil (HORIZANT) 300 mg TbER Take by mouth. - cefdinir (OMNICEF) 300 mg capsule Take 1 capsule by mouth two times a day for 7 days. - gabapentin enacarbil (HORIZANT) 300 mg TbER Take 1 tablet TID. - pramipexole (MIRAPEX) 0.125 mg tablet Take 1 tablet at 2 PM, 1 tablet at dinnertime, 2 tablets at 9 pm, and 2 tablets at bedtime - valsartan (DIOVAN) 320 mg tablet Take 1 tablet by mouth once daily. - diclofenac (VOLTAREN) 1 % topical gel Apply 2 g to affected area four times daily. - semaglutide (OZEMPIC) 2 mg/dose (8 mg/3 mL) pen injector Inject 2 mg subcutaneously one time a week. - omeprazole (PRILOSEC) 40 mg capsule Take 1 capsule by mouth two times a day. - atorvastatin (LIPITOR) 10 mg tablet Take 1 tablet by mouth once daily. - buPROPion SR (WELLBUTRIN SR) 150 mg 12 hr tablet Take 1 tablet by mouth once daily. - conjugated estrogens (PREMARIN) vaginal cream Use 0.5 g vaginally two times a week. - levothyroxine (SYNTHROID) 75 mcg tablet take 1 tablet by mouth once daily ON AN EMPTY STOMACH - naproxen (NAPROSYN) 500 mg tablet Take 1 tablet by mouth two times a day as needed. Take with food. - montelukast (SINGULAIR) 10 mg tablet Take 1 tablet by mouth daily at bedtime. - nystatin (MYCOSTATIN) powder Apply 1 application to affected area four times daily. - fluticasone (FLONASE) 50 mcg/actuation nasal spray instill 2 sprays into each nostril once daily - ketoconazole (NIZORAL) 2 % cream Apply to affected area once daily. Used for fungal skin fold rashes - LUMIGAN 0.01 % drop ophthalmic drops instill 1 drop into both eyes at bedtime - fluorometholone (FML LIQUID FILM) 0.1 % ophthalmic suspension instill 1 drop into both eyes twice a day as directed - fluorometholone (FML LIQUID FILM) 0.1 % ophthalmic suspension 1 Drop every 4 hours. - ascorbic acid, vitamin C, (VITAMIN C) 500 mg tablet Take 1 tablet by mouth twice daily with meals for 27 doses. - aspirin, enteric coated (ASPIRIN, ENTERIC COATED) 81 mg EC tablet Take 1 tablet by mouth twice daily for 28 days. - Magnesium Oxide 500 mg tab Take 500 mg by mouth once daily. Taking in gummy form - ubidecarenone (COENZYME Q10) 100 mg tab Take 200 mg by mouth once daily. - simethicone (GAS-X ORAL) Take 125 mg by mouth twice daily. - multivit,thx,calcium, iron,mins (MULTIVITAMIN AND MINERAL ORAL) Take 1 tablet by mouth once daily. - Zinc 50 mg tab Take 50 mg by mouth. - amLODIPine (NORVASC (more content not included)... Normal [facility] CNOVon 06-02-2025 CNOV Office Visit (WOUCA) KEMAL CANTU ([id number]) 1945 F Date Time Provider Department 06/02/25 12:00 PM ALEXANDRIA PATTON During your visit today, we recorded the following information about you: Temperature Pulse Respiration Blood pressure 97.2 degrees 70/minute 16/minute 152/80 Weight 126.5 kg Alexandria Patton APRN.MICROGRINDER OPERATOR 06/02/2025 12:17 PM Signed [facility] Rod Cantu is a 79 year old female. Patient presents with: Ear Pain: right, headache x 1 week, dizziness x last night Ear Pain The patient is a 79-year-old female with a history of allergies, presenting with a headache, earache, and dizziness. Headache and Earache: - Headache and mild earache x1 week. - Denies facial pressure. - History of sinus infections. - Taking Zyrtec and Singulair for allergies. Dizziness: - Acute onset dizziness last night after waking from a nap. - Persistent dizziness when lying in bed and upon waking to urinate during the night. - Difficulty concentrating on reading this morning. - Denies vision changes or dyspnea. - Reports similar episodes 3-4 times in the past, usually resolving with penicillin. Review of Systems Head: (+) headache Eyes: (-) vision changes Ears/Nose/Mouth/Throa t: (+) ear pain, (+) nasal congestion Respiratory: (-) shortness of breath Neurological: (+) dizziness, (+) balance difficulty Objective BP 152/80 Pulse 70 Temp 36.2 ?C (97.2 ?F) Resp 16 Wt 126.5 kg (278 lb 14.1 oz) SpO2 94% BMI 43.68 kg/m? Physical Exam Constitutional: Appearance: Normal appearance. Pulmonary: Effort: Pulmonary effort is normal. Neurological: Mental Status: She is alert. General: No acute distress. HEENT: Left ear normal, right ear with cerumen impaction, oropharynx without significant erythema or swelling. CV: Heart sounds normal, no abnormalities auscultated. Resp: Lungs clear to auscultation. { 1. Rhinosinusitis (J32.9) 2. Impacted cerumen, right ear (H61.21) - Acute rhinosinusitis with associated vertigo and mild right ear pain; right ear exam limited by cerumen impaction. - Start cefdinir (Omnicef) BID for 7 days. - Discussed alternative antibiotic options; patient declined Augmentin due to prior intolerance. - Advised to continue current allergy medications (Zyrtec and Singulair). - Advised to defer ear irrigation until infection resolves to avoid pain. and Recording using [employer] software for draft documentation of the visit was discussed with the patient/authorized accounts payable representative; all questions welcomed and answered. Patient/authorized accounts payable representative agreed to proceed History and Record Review External record(s) reviewed: no prior records. Disposition The patient was discharged. Procedures Allergies As of Date: 06/02/2025 Noted Allergy Reaction BACITRACIN (BULK) 02/07/2019 4 - Hives CODEINE 02/07/2019 16 - Unknown DUST MITES 01/23/2020 14 - Other: See Comments GENTAMICIN 11/30/2021 7 - Swelling Comments: redness of eye watery and itching MOLD 01/23/2020 16 - Unknown SULFA (SULFONAMIDE ANTIBIOTICS) 02/07/2019 14 - Other: See Comments Comments: redness SULFABENZAMIDE 11/30/2021 4 - Hives TREE POLLEN-RED MAPLE 02/16/2021 12 - Shortness of Breath Date Reviewed: 06/02/2025 Reviewed by: Sridhar Naik MA - Fully Assessed Reason for Visit: Ear Pain [817] Cmt: right, headache x 1 week, dizziness x last night Primary Visit Diagnosis:Rhinosinusi tis [J32.9] Other Visit Diagnosis:Impacted cerumen, right ear [H61.21] Order(s):cefdinir (OMNICEF) 300 mg capsuleTake 1 capsule by mouth two times a day for 7 days.Disp: 14 capsuleRfl: 0 Prescriptions as of 06/02/2025 - gabapentin enacarbil (HORIZANT) 300 mg TbER Take by mouth. - cefdinir (OMNICEF) 300 mg capsule Take 1 capsule by mouth two times a day for 7 days. - gabapentin enacarbil (HORIZANT) 300 mg TbER Take 1 tablet TID. - pramipexole (MIRAPEX) 0.125 mg tablet Take 1 tablet at 2 PM, 1 tablet at dinnertime, 2 tablets at 9 pm, and 2 tablets at bedtime - valsartan (DIOVAN) 320 mg tablet Take 1 tablet by mouth once daily. - diclofenac (VOLTAREN) 1 % topical gel Apply 2 g to affected area four times daily. - semaglutide (OZEMPIC) 2 mg/dose (8 mg/3 mL) pen injector Inject 2 mg subcutaneously one time a week. - omeprazole (PRILOSEC) 40 mg capsule Take 1 capsule by mouth two times a day. - atorvastatin (LIPITOR) 10 mg tablet Take 1 tablet by mouth once daily. - buPROPion SR (WELLBUTRIN SR) 150 mg 12 hr tablet Take 1 tablet by mouth once daily. - conjugated estrogens (PREMARIN) vaginal cream Use 0.5 g vaginally two times a week. - levothyroxine (SYNTHROID) 75 mcg tablet take 1 tablet by mouth once daily ON AN EMPTY STOMACH - naproxen (NAPROSYN) 500 mg tablet Take 1 tablet by mouth two times a day as needed. Take with food. - montelu (more content not included)... Normal [facility] CNOVon 05-29-2025 CNOV Office Visit (INTMWS ) ALONDRAKEMAL ([id number]) 1945 F Date Time Provider Department 05/29/25 11:00 AM ЕКАТЕРИНА ESCALANTE During your visit today, we recorded the following information about you: Pulse Respiration Blood pressure Weight 64/minute 16/minute 134/78 125.6 kg Екатерина Escalante APRN.CNP 05/29/2025 3:21 PM Signed Kemal Cantu is a 79 year old female here for a Medicare wellness visit. 007} Medicare Health Risk Assessment General Health Fair Exercise: Minutes/Day 0 min is doing physical therapy exercises though Exercise: Days/Week 0 days going to start doing PT exercises 7 days a week Alcohol: Daily Use Monthly or less Alcohol: Drinks/Day 1 or 2 Alcohol: 6 or more drinks Never Feel off balance No Concerns: Teeth/Dentures Yes Concerns: Sexual function No Troubled by feelings Anxious; Lonely; Isolated Frequency: Eating healthy diet More than half the days ADLs requiring help Housework (Help with carrying things down the stairs) Safety precautions in home/vehicle Yes Smoke, vape, chews tobacco No Difficulty hearing No Difficulty seeing No Current Providers Specialists: I have reviewed specialist-related care of the patient in the medical record. Orthopedics: Lety Haywood Dermatology: dr. sandoval Sleep Medicine: Altagracia Constantino Podiatry: Dr. Mims Cardiology: Dr. Fitch Optometry: [facility] Neurology: Dr. Blevins Medical/Family history review Reviewed and updated problem list, medical/surgical/fami ly/social history, medications, and allergies. Opioid use review Prescribed: No opioid use on file in the last 90 days Patient-reported: No opioid use on file in the last 90 days Depression screening 1007} PHQ-2 Score: 1 (05/29/2025 11:03 AM) Based on score and interview, patient is already diagnosed with depression. Recommendation: no further intervention at this time Anxiety screening Gad2 is 0 no further intervention at this time. Cognitive screening Mini Cog Score: 5 Cognitive screening reviewed and No further action needed (score 3-5). Functional Observation Was the patient's Timed Up AND Go test unsteady or >= 12 seconds? No Advance Directives Surrogate decision maker and/or advance care plan documented Measurements BP 134/78 Pulse 64 Resp 16 Wt 125.6 kg (277 lb) SpO2 97% BMI 43.38 kg/m? Vision Screening: Follows with optometry/ophthalmolo gy Assessment/Plan Medicare annual wellness visit, subsequent (Z00.00) - Counseled on healthy diet and regular exercise - Fall avoidance information provided - Personalized prevention plan provided - Discussed need for and benefit of weight loss. BMI 43.38 kg/(m2) - Counseled patient on alcohol intake and associated health risks Екатерина Escalante APRN.CNP 05/29/2025 11:21 AM Signed Screening schedule The following prevention plan is recommended: Medicare Advantage Annual Wellness Visit due on 08/14/2024 Influenza Vaccine(1) due on 04/14/2025 Dilated Retinal Exam due on 05/16/2025 WHAT YOU CAN DO TO PREVENT FALLS Many falls can be prevented. By making some changes, you can lower your chances of falling. Four things YOU can do to prevent falls for you* and your caregiver 1. Begin a regular exercise program Exercise is one of the most important ways to lower your chances of falling. It makes you stronger and helps you feel better. Exercises that improve balance and coordination (like Fernando Chi) are the most helpful. Lack of exercise leads to weakness and increases your chances of falling. Ask your doctor or health care provider about the best type of exercise program for you. 2. Have your health care provider review your medicines Have your doctor or pharmacist review all the medicines you take, even [id number] medicines. As you get older, the way medicines work in your body can change. Some medicines, or combinations of medicines, can make you sleepy or dizzy and can cause you to fall. 3. Have your vision checked Have your eyes checked by an eye doctor at least once a year. You may be wearing the wrong glasses or have a condition like glaucoma or cataracts that limits your vision. Poor vision can increase your chances of falling. 4. Make your home safer About half of all falls happen at home. To make your home safer: Remove things you can trip over (like papers, books, clothes, and shoes) from stairs and places where you walk. Remove small throw rugs or use double-sided tape to keep the rugs from slipping. Keep items you use often in cabinets you can reach easily without using a step stool. Have grab bars put in next to your toilet and in the tub or shower. Use non-slip mats in the bathtub and on shower floors. Improve the lighting in your home. As you get older, you need brighter lights to see well. Hang light-weight curtains or shades to reduce glare. Have (more content not included)... Normal [facility] [id number] 05-27-2025 [id number] O ID: [id number] Author: THAI ADAME PT Service: ? Author Type: Physical Therapist Type: [id number] Filed: 05/27/2025 12:30 Note Text: [facility] Physical Therapy Plan of Care Certification Patient Name: Kemal Cantu : 1945 CC #: [id number] Date: 05/27/2025 To: Lety Haywood PA-C From Therapist: Thai Adame PT RE: Patient Certification/ Recertification Your review, approval and electronic signature are required in order to comply with Payor: [facility] MEDICARE / Plan: [facility] MEDICARE ADVANTAGE PPO / Product Type: PPO / regulations. The identified Physical Therapy PLAN OF CARE for the patient is as follows: Z96.641 Status post hip replacement, right (primary encounter diagnosis) PLAN OF CARE: Assessment: Kemal Cantu presents with chief complaint of LBP and B hip pain that interferes with rising from a chair, standing, walking, bending, heavy exertion, lifting, physical activities, recreational activities, sleeping . The patient presents with impairments in ADL's, overall function, range of motion, strength, and symptom management. PROMIS? (Patient-Reported Outcomes Measurement Information System) scores were reviewed and identified as a rehabilitation concern. Prognosis for therapy is Fair due to: clinical presentation, multiple co- morbidities, advanced age, chronic nature of impairments, limited tolerance to activity . The patient will benefit from skilled therapy services to meet the goals established for this plan of care as noted below. Goals for Episode of Care: established 05/27/25 Independent in home exercises. Patient will decrease pain rating by 2 points to meet minimal clinical important difference for numeric pain rating scale. Stand / Walk as needed for ADLs without pain/symptoms. Sit 2 hours without pain/symptoms to allow for decreased pain and improved sitting ADL tolerance Patient will increase strength of trunk/core and B hips to 4 to 4+/5 to allow for improve ability to complete ADLs and improve ability to negotiate stairs. Time Frame for Goals and Treatment : 07/27/25 Planned Interventions, Frequency, and Duration: Current Frequency: 1x/week Duration: 8 weeks Total Number of Visits Planned: 8 Planned Treatment Interventions: Neuromuscular re-education (59750), Therapeutic exercise (75584), Manual therapy (66297), Therapeutic activities (40165), Self-nursing home management (57703), Gait Training (57761), Patient/Family/Caregi nupur Education, Body Mechanics Training PLAN FOR NEXT VISIT: Leg strengthening to tolerance, neutral spine core strengthening and flexion bias for lumbar pain Patient demonstrates good understanding of plan of care and treatment. The above goals and plan of care were discussed and agreed upon by patient/family. For further details regarding this patient refer to the Physical Therapy electronically documented visit dated 05/27/2025. Provider Attestation I have reviewed the treatment plan for Kemal Cantu, CCF# [id number] for the period of 05/27/25 -- 08/27/25, established on 05/27/2025. Signature certifies the need for therapy services. Normal [facility] CNTHERAPYon 05-27-2025 CNTHERAPY OT/PT/Speech Visit (PTWS) KEMAL CANTU ([id number]) 1945 F Date Time Provider Department 05/27/25 11:30 AM THAI ADAME PTWS Date Time Provider Department Center 05/27/2025 11:30 AM [id number], SEAN PTWS [place] Reason for Visit: PT Eval [747] Primary Visit Diagnosis:Status post hip replacement, right [Z96.641] Allergies As of Date: 05/27/2025 Noted Allergy Reaction BACITRACIN (BULK) 02/07/2019 4 - Hives CODEINE 02/07/2019 16 - Unknown DUST MITES 01/23/2020 14 - Other: See Comments GENTAMICIN 11/30/2021 7 - Swelling Comments: redness of eye watery and itching MOLD 01/23/2020 16 - Unknown SULFA (SULFONAMIDE ANTIBIOTICS) 02/07/2019 14 - Other: See Comments Comments: redness SULFABENZAMIDE 11/30/2021 4 - Hives TREE POLLEN-RED MAPLE 02/16/2021 12 - Shortness of Breath Date Reviewed: 05/12/2025 Reviewed by: Kemi Valencia MA - Fully Assessed Prescriptions as of 05/27/2025 - gabapentin enacarbil (HORIZANT) 300 mg TbER Take 1 tablet TID. - pramipexole (MIRAPEX) 0.125 mg tablet Take 1 tablet at 2 PM, 1 tablet at dinnertime, 2 tablets at 9 pm, and 2 tablets at bedtime - valsartan (DIOVAN) 320 mg tablet Take 1 tablet by mouth once daily. - diclofenac (VOLTAREN) 1 % topical gel Apply 2 g to affected area four times daily. - semaglutide (OZEMPIC) 2 mg/dose (8 mg/3 mL) pen injector Inject 2 mg subcutaneously one time a week. - omeprazole (PRILOSEC) 40 mg capsule Take 1 capsule by mouth two times a day. - atorvastatin (LIPITOR) 10 mg tablet Take 1 tablet by mouth once daily. - buPROPion SR (WELLBUTRIN SR) 150 mg 12 hr tablet Take 1 tablet by mouth once daily. - conjugated estrogens (PREMARIN) vaginal cream Use 0.5 g vaginally two times a week. - levothyroxine (SYNTHROID) 75 mcg tablet take 1 tablet by mouth once daily ON AN EMPTY STOMACH - naproxen (NAPROSYN) 500 mg tablet Take 1 tablet by mouth two times a day as needed. Take with food. - montelukast (SINGULAIR) 10 mg tablet Take 1 tablet by mouth daily at bedtime. - nystatin (MYCOSTATIN) powder Apply 1 application to affected area four times daily. - fluticasone (FLONASE) 50 mcg/actuation nasal spray instill 2 sprays into each nostril once daily - ketoconazole (NIZORAL) 2 % cream Apply to affected area once daily. Used for fungal skin fold rashes - LUMIGAN 0.01 % drop ophthalmic drops instill 1 drop into both eyes at bedtime - fluorometholone (FML LIQUID FILM) 0.1 % ophthalmic suspension instill 1 drop into both eyes twice a day as directed - fluorometholone (FML LIQUID FILM) 0.1 % ophthalmic suspension 1 Drop every 4 hours. - ascorbic acid, vitamin C, (VITAMIN C) 500 mg tablet Take 1 tablet by mouth twice daily with meals for 27 doses. - aspirin, enteric coated (ASPIRIN, ENTERIC COATED) 81 mg EC tablet Take 1 tablet by mouth twice daily for 28 days. - Magnesium Oxide 500 mg tab Take 500 mg by mouth once daily. Taking in gummy form - ubidecarenone (COENZYME Q10) 100 mg tab Take 200 mg by mouth once daily. - simethicone (GAS-X ORAL) Take 125 mg by mouth twice daily. - multivit,thx,calcium, iron,mins (MULTIVITAMIN AND MINERAL ORAL) Take 1 tablet by mouth once daily. - vitamin K2 100 mcg cap Take 100 mcg by mouth. - Zinc 50 mg tab Take 50 mg by mouth. - amLODIPine (NORVASC) 2.5 mg tablet Take 2.5 mg by mouth once daily. - metoprolol tartrate, short acting, (LOPRESSOR) 50 mg tablet Take 50 mg by mouth once daily. - Bifidobacterium infantis (ALIGN ORAL) Take 1 tablet by mouth once daily. - amoxicillin (POLYMOX, AMOXIL) 500 mg capsule Take 500 mg by mouth. Take 4 capsules 1 hour before dental procedures. - ferrous sulfate EC 324 mg (65 mg iron) TbEC Take 324 mg by mouth once daily. Twice a day Normal [facility] Ferritin SerPl-ncon 2024 Ferritin [Mass/Vol] 110.0 ng/mL Normal 14.7-205.1 [facility] Comment on above: Order Comment: Speci men Type: BLOOD SPECIMENOrdering Facility: [facility] Address: [address] [place] [address] Performed By: #### 5 0190-8, 6-4 ####[facility] LABCLIA [id number] [place] [address] [place] Iron and Iron binding capaci panel 05-26-2025 Iron [Mass/Vol] 55 ug/dL Normal 41-186 [facility] Comment on above: Order Comment: Speci men Type: BLOOD SPECIMENOrdering Facility: [facility] Address: [address] [place] [address] Performed By: #### 5 0190-8, 6-4 ####[facility] LABCLIA [id number] [place] [address] [place] Iron binding capacity [Mass/Vol] 292 ug/dL Normal 232-386 [facility] Comment on above: Order Comment: Speci men Type: BLOOD SPECIMENOrdering Facility: [facility] Address: [address] [place] [address] Performed By: #### 5 0190-8, 6-4 ####[facility] LABCLIA [id number] [place] [address] [place] Iron/TIBC [Molar ratio] 18.8 % Normal 15.0-57.0 [facility] Comment on above: Order Comment: Speci men Type: BLOOD SPECIMENOrdering Facility: [facility] Address: [address] [place] [address] Performed By: #### 5 0190-8, 2276-4 ####[facility] LABCLIA [id number] IANJey RODRIGES [id number] [place] [address] [place] CNOVon 05-12-2025 CNOV Office Visit (ORTHWS ) KEMAL CANTU ([id number]) 1945 F Date Time Provider Department 05/12/25 9:30 AM LETY HAYWOOD During your visit today, we recorded the following information about you: Kemi Valencia MA 05/15/2025 12:21 PM Signed AMB ROOMING INTAKE FLOWSHEET DATA Pain Pain Level: 5 Pain Location: Hip-Right Description: Stiffness, Dull Duration Amount of Time: (ongoing) Frequency: Intermittent Intervention/Comfort measure: Reposition Patient here today 2 years post op right DEYSI. She is concerned that she feels like she has almost dislocated her hip a couple of times just turning in bed. She finds it difficult to lift the right leg, making stairs difficulty. She does have multiple sets of stairs in her home and this concerns her. New x-ray today. Lety Haywood PA-C 05/15/2025 12:21 PM Signed Lety Haywood PA-C Department of Orthopaedics Orthopaedics [address] [facility] [address] Dept: [phone] Dept May 12, 2025 CHIEF COMPLAINT: Follow Up of the Right Hip Right Hip Pain and Weakness: - Right hip replacement 2 years ago. - Reports weakness in the right leg since a tendon injury in the . - Difficulty ascending stairs and rising from a chair without assistance. - Concerns about potential weakness if left hip replacement is needed. - Experiences pain in the right hip after prolonged sitting. - Reports four episodes of excruciating pain in the right hip, described as a pull sensation, with two episodes occurring shortly after surgery and two more recently. - Pain localized to the anterior thigh tendon area, site of previous injury. - Denies groin or buttock pain. Left Hip Pain: - Reports increasing pain in the left hip. - Has known arthritis in the left hip. Spinal Stenosis: - Diagnosed with spinal stenosis; believes it may be contributing to hip pain. - No current management for spinal stenosis. - Previously attended physical therapy for back pain. Fibromyalgia: - Reports chronic tendon tightness and pain in various areas, including knees and hands. - Believes fibromyalgia contributes to hip pain. Hand Arthritis: - Reports pain in the hands, particularly at the left thumb. - Uses Voltaren gel for pain relief. 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 Degeneration of intervertebral disc of lumbar region with lower extremity pain (M51.361) - Chronic low back pain with known spinal stenosis; last lumbar X-rays from 2021. - Ordered new lumbar spine X-rays to assess for interval changes. - Discussed that spinal pathology may be contributing to lower extremity weakness. - Refer to physical therapy for lumbar stabilization and lower extremity strengthening. 2. Status post hip replacement, right (Z96.641) - Right hip replacement with chronic anterior thigh weakness and pain, likely due to old tendon injury from the and possible contribution from spinal stenosis. - X-rays from today and May 2023 reviewed; right hip prosthesis appears intact with no significant changes. - Refer to physical therapy to address anterior thigh weakness and improve function. 3. Pain of left thumb (M79.645) - Chronic pain likely due to arthritis. Xrays ordered. - Discussed conservative management options including Voltaren gel, heat therapy (paraffin bath or warm water soaks), and bracing. - Patient to trial thumb brace; did not care for in office options. May explore additional options online. Will continue to monitor patient for Degeneration of intervertebral disc of lumbar region with lower extremity pain (primary encounter diagnosis) Status post hip replacement, right Pain of left thumb Fibromyalgia, patient to schedule visit as per follow up discussed. Ms. Kemal Cantu was advised as to contrast therapies and/or to take analgesics/anti-infla mmatories as needed and all contraindications were reviewed. OBJECTIVE: Ms. Kemal Cantu is a pleasant 79 year old in no apparent distress. Gen:There were no vitals taken for this visit. nl development, obese, no deformities ENT: Normocephalic, normal hearing, moist mucosa CV: Pulses:DP/PT= 2+ and symmetric, capillary refill < 2 secs, no peripheral edema/varicosities Skin: no rash, bruising or lesions. Good turgor. Psych: cooperative and appropriate, alert and oriented x 3, good mood and affect. Musculoskeletal: Right hip with passive painless range of motion. Patient does have weakness with resisted hip flexion when compared to the contralateral side. Pain on palpation over the right hip flexor. Left hand with diffuse degenerative changes, mos (more content not included)... Normal [facility] XR HIP 3V PELV+ AP/LAT RTon 05-12-2025 XR HIP 3V PELV+ AP/LAT RT * * *Final Report* * * DATE OF EXAM: May 12 2025 9:35AM [id number] - XR HIP 3V PELV+ AP/LAT RT / PROCEDURE REASON: multiple diagnoses * * * * Physician Interpretation * * * * Pelvis and 06/05/2023 hip HISTORY: Indication: History of right hip replacement Primary osteoarthritis of right hip TECHNIQUE: Images: XR HIP 3V PELV+ AP/LAT RT Comparison: None. RESULT: Findings: Pelvis: No fractures or dislocations are seen. Moderate degenerative changes in the sacroiliac joints. Right hip: No fractures or dislocations are seen. The components of the RIGHT total hip arthroplasty appear stable.. There is no evidence of loosening of the components. IMPRESSION: Findings as discussed under Results portion of report. [place]: CHAR Transcribe Date/Time: May 14 2025 3:08P Dictated by : DEWAYNE HADDAD, This examination was interpreted and the report reviewed and electronically signed by: DEWAYNE HADDAD DO on May 14 2025 3:10PM EST [id number] Normal [facility] XR LUMBAR 3V AP/LAT/L5-S1on 05-12-2025 XR LUMBAR 3V AP/LAT/L5-S1 * * *Final Report* * * DATE OF EXAM: May 12 2025 10:41AM [id number] - XR LUMBAR 3V AP/LAT/L5-S1 / PROCEDURE REASON: Degeneration of intervertebral disc of lumbar region with lower extremity pain * * * * Physician Interpretation * * * * LUMBAR SPINE: EXAM DATE/TIME: 05/12/2025 10:41 AM HISTORY: 79 years old Indication: Degeneration of intervertebral disc of lumbar region with lower extremity pain PT STATES LOWER BACK PAIN NO INJURY TECHNIQUE: Views obtained: XR LUMBAR 3V AP/LAT/L5-S1 Comparison: 10/04/2021 RESULT: Findings: Severe disc space narrowing L5-S1 level. Marked degenerative changes and facet joints L3-S1. The vertebra are in good alignment. No fractures or dislocations are seen. IMPRESSION: Degenerative changes as discussed [place]: CHAR Transcribe Date/Time: May 14 2025 3:10P Dictated by : DEWAYNE HADDAD DO This examination was interpreted and the report reviewed and electronically signed by: DEWAYNE HADDAD DO on May 14 2025 3:10PM EST [id number] Normal [facility] CNOVon 04-23-2025 CNOV Office Visit (MARVINWST ) KEMAL CANTU ([id number]) 1945 F Date Time Provider Department 04/23/25 10:00 AM ALTAGRACIA CONSTANTINO During your visit today, we recorded the following information about you: Pulse Respiration Blood pressure Weight 63/minute 16/minute 156/68 124.7 kg Altagracia Constantino APRN.BILL 04/23/2025 10:28 AM Signed [facility] Follow up/ Established patient visit Recording using ambient [employer] software for draft documentation of the visit was discussed with the patient/authorized accounts payable representative; all questions welcomed and answered. Patient/authorized accounts payable representative agreed to proceed Assessment/Plan from last visit: Date of last visit : 01/20/2025 ASSESSMENT/PLAN: 1. RLS (restless legs syndrome) - ICD9: 333.94, ICD10: G25.81 Patient with long standing history of RLS. Well controlled despite need for both Horizant and Mirapex -- on Horizant for years. Now, insurance no longer covering Horizant resulting in change to Gabapentin ER - not controlling RLS and side effects as above. Note treating known Fe deficiency with supplement. When patient changed back to Horizant this weekend (had few tabs left), RLS improved and side effects began to resolve. Will gain request that insurance provide coverage for Horizant given side effects on previously tried meds and inability to control RLS. Prior auth will be completed. Await insurance response. Will continue Mirapex as above with Horizant restated at 300mg TID. Pt will contact us if she hears from pharmacy/insurance before we do. 2. Iron deficiency anemia, unspecified iron deficiency anemia type - ICD9: 280.9, ICD10: D50.9 As above. 3. MAURICE (obstructive sleep apnea) - ICD9: 327.23, ICD10: G47.33 4. Class 3 severe obesity with body mass index (BMI) of 40.0 to 44.9 in adult, unspecified obesity type, unspecified whether serious comorbidity present (HCC) - ICD9: 278.01, V85.41, ICD10: E66.813, Z68.41 Known history of MAURICE, but pt declining any form of therapy. Encouraged weight loss. Encouraged patient to sleep on side. No s/s of tiredness/sleepiness during the day when RLS controlled. D/w pt repeat PSG, but declines at this time. Pt feels sleep is good and restorative so long as RLS controlled. Hollie Blevins MD CURRENT VISIT: 04/23/2025 The patient is a 79-year-old female with a history of restless leg syndrome (RLS), presenting for a medication refill. The patient reports that her current medication regimen, which includes pramipexole and Horizant, effectively controls her RLS symptoms. She takes pramipexole 0.125 mg according to the following schedule: one tablet at 1400, one tablet at dinner time, two tablets at 2100, and two tablets at bedtime. She also takes Horizant 300 mg TID as prescribed. She notes that if she delays taking her medication, she experiences mild RLS symptoms, but these are alleviated once she takes her medication. She emphasizes that her quality of life significantly deteriorates without these medications, describing the experience as horrendous. The patient has previously attempted to reduce her pramipexole dosage from six tablets to four tablets approximately two years ago, but found this dosage insufficient. She has been on her current dosage of six tablets for an extended period and has not experienced augmentation. She also tried gabapentin ER in the past when insurance denied Horizont, but discontinued it due to multiple side effects, including exhaustion, brain fog, feeling loopy, nausea, diarrhea, and weight gain. She reports that these side effects were severe enough to impair her ability to drive. Has previously tried gabapentin w/o relief. In addition to her RLS medications, the patient takes magnesium and vitamin D supplements in gummy form. She also takes an iron supplement, initially twice daily but currently once daily. Labs done in 08/2024 showed stable iron stores. The patient has recently changed her insurance provider and is uncertain whether her new insurance will cover her current medications. She has not yet refilled her prescriptions under the new insurance. Horizant ER 300 mg #270 last filled 01/27/25 SLEEP APNEA MAURICE, sleeps inclined, no PAP hx Latest Reference Range AND Units 08/20/24 08:40 eGFR >=60 mL/min/1.73m? 66 Ferritin 14.7 - 205.1 ng/mL 51.2 Iron 41 - 186 ug/dL 70 TIBC 232 - 386 ug/dL 346 Transferrin Saturation 15.0 - 57.0 % 20.2 Latest Reference Range AND Units 08/20/24 08:40 WBC 3.70 - 11.00 k/uL 3.72 RBC 3.90 - 5.20 m/uL 4.72 Hemoglobin 11.5 - 15.5 g/dL 14.0 Hematocrit 36.0 - 46.0 % 43.3 Platelet Count 150 - 400 k/uL 215 MCV 80.0 - 100.0 fL 91.7 MCH 26.0 - 34.0 pg 29.7 MCHC 30.5 - 36.0 g/dL 32.3 MPV 9.0 - 12.7 fL 9.6 RDW-CV 11.5 - 15.0 % 13.5 Latest Reference Range AND Units 08/20/24 08:40 Hemoglobin A1C 4.3 - 5.6 (more content not included)... Normal [facility] CNPNon 04-23-2025 CNPN Telephone (SLEWST) KEMAL CANTU ([id number]) 1945 F Date Time Provider Department 04/23/25 ALTAGRACIA CONSTANTINO During your visit today, we recorded the following information about you: Carol Gregory LPN 04/23/2025 11:59 AM Signed Started PA on Cover My Meds. For Horizant 300 mg ER Tabs. EARNEST Holils Barbara, LPN 04/24/2025 2:35 PM Signed Answered questions in Epic for Pt PA. EARNEST Hollis Barbara, LPN 04/28/2025 3:39 PM Signed Pt notified her gabapentin was approved by insurance. Carol Gregory LPN Allergies As of Date: 04/23/2025 Noted Allergy Reaction BACITRACIN (BULK) 02/07/2019 4 - Hives CODEINE 02/07/2019 16 - Unknown DUST MITES 01/23/2020 14 - Other: See Comments GENTAMICIN 11/30/2021 7 - Swelling Comments: redness of eye watery and itching MOLD 01/23/2020 16 - Unknown SULFA (SULFONAMIDE ANTIBIOTICS) 02/07/2019 14 - Other: See Comments Comments: redness SULFABENZAMIDE 11/30/2021 4 - Hives TREE POLLEN-RED MAPLE 02/16/2021 12 - Shortness of Breath Date Reviewed: 04/23/2025 Reviewed by: Carol Gregory LPN - Fully Assessed Prescriptions as of 04/28/2025 - gabapentin enacarbil (HORIZANT) 300 mg TbER Take 1 tablet TID. - pramipexole (MIRAPEX) 0.125 mg tablet Take 1 tablet at 2 PM, 1 tablet at dinnertime, 2 tablets at 9 pm, and 2 tablets at bedtime - valsartan (DIOVAN) 320 mg tablet Take 1 tablet by mouth once daily. - diclofenac (VOLTAREN) 1 % topical gel Apply 2 g to affected area four times daily. - semaglutide (OZEMPIC) 2 mg/dose (8 mg/3 mL) pen injector Inject 2 mg subcutaneously one time a week. - omeprazole (PRILOSEC) 40 mg capsule Take 1 capsule by mouth two times a day. - atorvastatin (LIPITOR) 10 mg tablet Take 1 tablet by mouth once daily. - buPROPion SR (WELLBUTRIN SR) 150 mg 12 hr tablet Take 1 tablet by mouth once daily. - conjugated estrogens (PREMARIN) vaginal cream Use 0.5 g vaginally two times a week. - levothyroxine (SYNTHROID) 75 mcg tablet take 1 tablet by mouth once daily ON AN EMPTY STOMACH - naproxen (NAPROSYN) 500 mg tablet Take 1 tablet by mouth two times a day as needed. Take with food. - montelukast (SINGULAIR) 10 mg tablet Take 1 tablet by mouth daily at bedtime. - nystatin (MYCOSTATIN) powder Apply 1 application to affected area four times daily. - fluticasone (FLONASE) 50 mcg/actuation nasal spray instill 2 sprays into each nostril once daily - ketoconazole (NIZORAL) 2 % cream Apply to affected area once daily. Used for fungal skin fold rashes - LUMIGAN 0.01 % drop ophthalmic drops instill 1 drop into both eyes at bedtime - fluorometholone (FML LIQUID FILM) 0.1 % ophthalmic suspension instill 1 drop into both eyes twice a day as directed - fluorometholone (FML LIQUID FILM) 0.1 % ophthalmic suspension 1 Drop every 4 hours. - ascorbic acid, vitamin C, (VITAMIN C) 500 mg tablet Take 1 tablet by mouth twice daily with meals for 27 doses. - aspirin, enteric coated (ASPIRIN, ENTERIC COATED) 81 mg EC tablet Take 1 tablet by mouth twice daily for 28 days. - Magnesium Oxide 500 mg tab Take 500 mg by mouth once daily. Taking in gummy form - ubidecarenone (COENZYME Q10) 100 mg tab Take 200 mg by mouth once daily. - simethicone (GAS-X ORAL) Take 125 mg by mouth twice daily. - multivit,thx,calcium, iron,mins (MULTIVITAMIN AND MINERAL ORAL) Take 1 tablet by mouth once daily. - vitamin K2 100 mcg cap Take 100 mcg by mouth. - Zinc 50 mg tab Take 50 mg by mouth. - amLODIPine (NORVASC) 2.5 mg tablet Take 2.5 mg by mouth once daily. - metoprolol tartrate, short acting, (LOPRESSOR) 50 mg tablet Take 50 mg by mouth once daily. - Bifidobacterium infantis (ALIGN ORAL) Take 1 tablet by mouth once daily. - amoxicillin (POLYMOX, AMOXIL) 500 mg capsule Take 500 mg by mouth. Take 4 capsules 1 hour before dental procedures. - ferrous sulfate EC 324 mg (65 mg iron) TbEC Take 324 mg by mouth once daily. Twice a day Problem List As Of Date 04/23/2025 Noted Resolved Class 3 severe obesity due to excess calories w*04/06/2019 Type 2 diabetes mellitus, without long-term cur*04/10/2019 Essential hypertension, benign [I10] 04/10/2019 Mixed hyperlipidemia [E78.2] 04/10/2019 Hypothyroidism [E03.9] 04/10/2019 MICHELLE (iron deficiency anemia) [D50.9] 04/10/2019 Anxiety and depression [F41.9, F32.A] 04/10/2019 Chronic back pain [M54.9, G89.29] 04/10/2019 Primary osteoarthritis involving multiple joint*04/10/2019 GERD (gastroesophageal reflux disease) [K21.9] 04/10/2019 Other irritable bowel syndrome [K58.8] 04/10/2019 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 [G47.33] 04/10/2019 09/01/2023 Chronic headache [R51.9, G89.29] 04/10/2019 RLS (restless legs syndrome) [G25.81] 04/10/2019 Fibromyalgia [M79.7] 04/10/2019 Fuchs' endothelial dystrophy [H18.519] 04/10/2019 Spinal stenosis of lumbar region with neurog (more content not included)... Normal [facility] ALBUMIN/CREATININE RATIO, UR INEon 02-24-2025 Albumin DL <= 20 mg/L (U) [Mass/Vol] mg/L mg/L [facility] Albumin/Creatinine (U) [Mass ratio] mg/g NINF - 30 mg/g [facility] Comment on above: Adult Male and Femal e Nephrotic Criteria: <30 mg/g is considered normal to mildly increased 30-300 mg/g is considered moderately increased >300 mg/g is considered severely increased KDIGO. (2013). KDIGO 2012 Clinical Practice Guideline for the Evaluation and Management of Chronic Kidney Disease. Official Journal of the International Society of Nephrology, 3(1), 1-150. Creatinine (U) [Mass/Vol] 87.6 mg/dL 20.0 - 300.0 mg/dL [facility] Albumin DL <= 20 mg/L (U) [Mass/Vol] mg/dL Normal [facility] Comment on above: Order Comment: Speci men Type: URINE SPECIMENOrdering Facility: [facility] Address: [address] [place] [address] Performed By: #### U ACR ####[facility] LABIA [id number] [address] STATES OF [facility] Albumin/Creatinine (U) [Mass ratio] <14 Normal <30 [facility] Comment on above: Order Comment: Speci men Type: URINE SPECIMENOrdering Facility: [facility] Address: [address] [place] [address] Result Comment: Adul t Male and Female Nephrotic Criteria: <30 mg/g is considered normal to mildly increased 30-300 mg/g is considered moderately increased >300 mg/g is considered severely increased KDIGO. (2013). KDIGO 2012 Clinical Practice Guideline for the Evaluation and Management of Chronic Kidney Disease. Official Journal of the International Society of Nephrology, 3(1), 1-150. Performed By: #### U ACR ####[facility] LABCLIA [id number] [place] [address] [place] Creatinine (U) [Mass/Vol] 87.6 mg/dL Normal 20.0-300.0 [facility] Comment on above: Order Comment: Speci men Type: URINE SPECIMENOrdering Facility: [facility] Address: [address] [place] [address] Performed By: #### U ACR ####[facility] LABIA [id number] [place] [address] [place] LUAN BY IFA SCREENon 02-25-20 25 Nuclear Ab Ql (S) Negative Normal Negative [facility] Comment on above: Order Comment: Speci men Type: BLOOD SPECIMENOrdering Facility: [facility] Address: [address] [place] [address] Result Comment: Anti -nuclear antibody test is used as an aid in diagnosis of systemic autoimmune diseases. Where positive and clinically warranted, follow-up using disease-specific testing is recommended. Low positive titers are not uncommon with advanced age, certain chronic infections, and malignancies among others. Test methodology: Indirect fluorescence immunoassay (IFA) using HEp-2 cells. Performed By: #### A NAIFS ####[facility] LABIA [id number] [place] [address] [place] Basic metabolic 2000 panelon 02-24-2025 Anion gap [Moles/Vol] 11 mmol/L Normal 8-15 [facility] Comment on above: Order Comment: Speci men Type: BLOOD SPECIMENOrdering Facility: [facility] Address: [address] [place] [address] Performed By: #### 2 4321-2, 3016-3, 1988-5, 36999-1 ####[facility] LABIA [id number] [place] [address] [place] Calcium [Mass/Vol] 9.9 mg/dL Normal 8.5-10.2 [facility] Comment on above: Order Comment: Speci men Type: BLOOD SPECIMENOrdering Facility: [facility] Address: [address] [place] [address] Performed By: #### 2 4321-2, 3015-10, 1987-12, ####[facility] LABCLIA [id number] [address] [address] [place] Chloride [Moles/Vol] 104 mmol/L Normal 98-107 [facility] Comment on above: Order Comment: Speci men Type: BLOOD SPECIMENOrdering Facility: [facility] Address: [address] [place] [address] Performed By: #### 2 432-2, 3015-10, 1987-12, ####[facility] LABCLIA [id number] [place] [id number] [place] CO2 [Moles/Vol] 28 mmol/L Normal 22-30 [facility] Comment on above: Order Comment: Speci men Type: BLOOD SPECIMENOrdering Facility: [facility] Address: [address] [place] [address] Performed By: #### 2 432-2, 3015-10, 1987-12, ####[facility] LABCLIA [id number] [place] [id number] [place] Creatinine [Mass/Vol] 0.85 mg/dL Normal 0.58-0.96 [facility] Comment on above: Order Comment: Speci men Type: BLOOD SPECIMENOrdering Facility: [facility] Address: [address] [place] [address] Performed By: #### 2 432-2, 3015-10, 1987-12, ####[facility] LABIA [id number] [place] [id number] [place] Creatinine and Glomerular filtration rate.predicted panel (S/P/Bld) 70 mL/min/1.73m??? Normal >=60 [facility] Comment on above: Order Comment: Speci men Type: BLOOD SPECIMENOrdering Facility: [facility] Address: [address] [place] [address] Result Comment: Marli mated Glomerular Filtration Rate (eGFR) is calculated using the 2020 CKD-EPI creatinine equation. This equation utilizes serum creatinine, sex, and age as parameters. The creatinine assay has traceable calibration to isotope dilution-mass spectrometry. Refer to KDIGO guidelines for clinical interpretation. In patients with unstable renal function, e.g. those with acute kidney injury, the eGFR may not accurately reflect actual GFR. Performed By: #### 2 4321-2, 3015-10, 1987-12, ####[facility] LABIA [id number] [address] [address] [place] Glucose [Mass/Vol] 98 mg/dL Normal 74-99 [facility] Comment on above: Order Comment: Margie martin Type: BLOOD SPECIMENOrdering Facility: [facility] Address: [address] [place] [address] Result Comment: The British Diabetes Association (ADA) provides guidance for cutoff values for fasting glucose and random glucose. The ADA defines fasting as no caloric intake for at least 8 hours. Fasting plasma glucose results between 100 to 125 mg/dL indicate increased risk for diabetes (prediabetes). Fasting plasma glucose results greater than or equal to 126 mg/dL meet the criteria for diagnosis of diabetes. In the absence of unequivocal hyperglycemia, results should be confirmed by repeat testing. In a patient with classic symptoms of hyperglycemia or hyperglycemic crisis, random plasma glucose results greater than or equal to 200 mg/dL meet the criteria for diagnosis of diabetes. Reference: Standards of Medical Care in Diabetes 2016, British Diabetes Association. Diabetes Care. 2016.39(Suppl 1). Performed By: #### 2 1-2, 3015-10, 1987-12, ####[facility] LABIA [id number] [address] [address] [place] Potassium [Moles/Vol] 4.9 mmol/L Normal 3.7-5.1 [facility] Comment on above: Order Comment: Margie men Type: BLOOD SPECIMENOrdering Facility: [facility] Address: [address] [place] [address] Performed By: #### 2 4320-2, 3015-10, 1987-12, ####[facility] LABCLIA [id number] [place] [id number] [place] Sodium [Moles/Vol] 143 mmol/L Normal 136-144 [facility] Comment on above: Order Comment: Speci men Type: BLOOD SPECIMENOrdering Facility: [facility] Address: [address] [place] [address] Performed By: #### 2 432-2, 3015-10, 1987-12, ####[facility] LABIA [id number] [place] [address] [place] Urea nitrogen [Mass/Vol] 13 mg/dL Normal 7-21 [facility] Comment on above: Order Comment: Speci men Type: BLOOD SPECIMENOrdering Facility: [facility] Address: [address] [place] [address] Performed By: #### 2 432-2, 3015-10, 1987-12, ####[facility] LABCLIA [id number] [place] [address] [place] C-REACTIVE PROTEINon 025 CRP [Mass/Vol] mg/dL NINF - 0.9 mg/dL [facility] CNOVon 02-24-2025 CNOV Office Visit (INTMWS ) KEMAL CANTU ([id number]) 1945 F Date Time Provider Department 02/24/25 1:00 PM ЕКАТЕРИНА ESCALANTE INTKEO During your visit today, we recorded the following information about you: Pulse Respiration Blood pressure Weight 64/minute 16/minute 132/78 124.7 kg Екатерина Escalante APRN.MICROGRINDER OPERATOR 02/24/2025 4:21 PM Signed CC: Patient presents with: Recheck: 6 month follow up HPI Kemal Cantu is a 79 year old female who presents today for follow up. Recording using [employer] software for draft documentation of the visit was discussed with the patient/authorized accounts payable representative; all questions welcomed and answered. Patient/authorized accounts payable representative agreed to proceed Fatigue: Ongoing with low motivation - Has difficulty sleeping; reports never sleeping well. - Experiences feelings of loneliness; moved to be near grandchildren but has no friends in the area. - Misses the mountains and friends in [place]. - Feels stuck in current living situation and landscape. - Considering building a dowdy house on son's property. - Attends religion regularly. - No thoughts of self-harm or harm to others. Hand Pain: - Pain in right pinky and left thumb joints, worsening over the last 3 months. - No recent injuries; - No major swelling, fever, or chills. - Able to move fingers but experiences pain during repetitive activities which is a problem for her crafting, art,and knitting. - No weakness or dropping objects; difficulty opening jars due to thumb pain. - No current treatment for hand pain; has used Voltaren gel in the past. Arthritis: - Diagnosed with arthritis in multiple joints. - Reports pain in multiple joints and decreased mobility. - Believes left hip is going downhill and needs to follow up with her orthopedist as it may need surgery now - Right hip has not fully recovered strength post-surgery. Hypertension: - Managed with Valsartan; needs a refill. - Does not check blood pressure at home; previous machine was unreliable. - Denies abnormal headaches, swelling, dyspnea, palpitations, or chest pain. - No regular exercise; occasionally uses a step machine. - Attempts to follow a low-fat, low-salt diet; successful ~75% of the time. - Lost 45 lbs but regained 15 lbs; currently trying to lose weight again. Diabetes Mellitus: - Managed with Ozempic. - Does not check blood sugar at home; reports blood sugar has been so low. - Occasional symptoms of hypoglycemia, including lightheadedness and feeling woozy or druggy. A few times a month - Symptoms relieved by eating. - Denies increased thirst, hunger, urination, or numbness. Hypothyroidism: - Managed with levothyroxine, taken once daily on an empty stomach. - No abnormal changes in weight. Restless Leg Syndrome: - Managed with Mirapex and Horizant. - Insurance issues with Horizant; had to switch to gabapentin temporarily, which was poorly tolerated. - Currently back on Horizant; uncertain about future coverage. - Taking iron supplement; iron levels are high. REVIEW OF SYSTEMS See HPI PAST MEDICAL HISTORY Diagnosis Date Diabetes mellitus (HCC) Fibromyalgia Fuchs' corneal dystrophy Gastroesophageal reflux disease Glaucoma HTN (hypertension) Hypothyroidism Irritable bowel syndrome Migraines MAURICE (obstructive sleep apnea) does not use c-pap Osteoarthritis Plantar fasciitis PONV (postoperative nausea and vomiting) Pseudophakia PTSD (post-traumatic stress disorder) Restless leg syndrome Sleep apnea in adult TMJ (dislocation of temporomandibular joint) PAST SURGICAL HISTORY Procedure Laterality Date CATARACT EXTRACTION W/ INTRAOCULAR LENS IMPLANT HX Bilateral 2016 COLONOSCOPY FLX DX W/COLLJ SPEC WHEN PFRMD 06/21/2021 CORNEAL TISSUE DSAEK/DMEK Left 09/30/2019 Dr. Clark ENDOTHELIAL KERATOPLASTY(DMEK) Right 04/17/2019 ENDOTHELIAL KERATOPLASTY/DSAEK Right 03/18/2019 ESOPHAGOGASTRODUODENO SCOPY TRANSORAL DIAGNOSTIC 06/21/2021 PAST SURGICAL HISTORY OF 1972 parathyroid adenoma surgery PAST SURGICAL HISTORY OF 1988 hysterectomy with prolapsed bladder repair PAST SURGICAL HISTORY OF 1992 abdominoplasty PAST SURGICAL HISTORY OF 1993 breast reduction PAST SURGICAL HISTORY OF 1979 deviated septum repair PAST SURGICAL HISTORY OF 1965 DANDC after miscarriage PAST SURGICAL HISTORY OF 2013 Total right knee repalcement PAST SURGICAL HISTORY OF 11/2013 total left knee replacement PAST SURGICAL HISTORY OF 2015 rectocele repair with vaginal mesh PAST SURGICAL HISTORY OF 11/01/2015 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 Normal [facility] CRP SerPl-mCncon 02-24-2025 CRP [Mass/Vol] mg/L Normal <0.9 [facility] Comment on above: Order Comment: Speci men Type: BLOOD SPECIMENOrdering Facility: [facility] Address: [address] [place] [address] Performed By: #### 2 4321-2, 3016-3, 1988-5, 01923-1 ####[facility] LABIA [id number] [place] [address] [place] ESR Westergren method (Bld) [Velocity]on 02-24-2025 ESR (Bld) [Velocity] 8 mm/h [facility] Interpretation and review of laboratory results Normal [facility] ESR (Bld) [Velocity] 8 mm/h Normal 0-20 [facility] Comment on above: Order Comment: Speci men Type: BLOOD SPECIMENOrdering Facility: [facility] Address: [address] [place] [address] Performed By: #### 4 537-7 ####[facility] [id number] [address] [place] HbA1c (Bld)on 02-24-2025 Average glucose Estimated from glycated hemoglobin (Bld) [Mass/Vol] 111 mg/dL Normal [facility] Comment on above: Order Comment: Georgei mario Type: BLOOD SPECIMENOrdering Facility: [facility] Address: [address] [place] [address] Result Comment: eAG: (Estimated average glucose) is a calculated value from HgbA1c and is accounts payable representative of the average blood glucose level in the last 2-3 month period. Performed By: #### 5 5454-3 ####[facility] [id number] [address] [place] HbA1c (Bld) [Mass fraction] 5.5 % Normal 4.3-5.6 [facility] Comment on above: Order Comment: Georgei men Type: BLOOD SPECIMENOrdering Facility: [facility] Address: [address] [place] [address] Result Comment: Amer [place] Diabetes Association guidelines indicate that patients with HgbA1c in the range 5.7-6.4% are at increased risk for development of diabetes, and intervention by lifestyle modification may be beneficial. HgbA1c greater or equal to 6.5% is considered diagnostic of diabetes. Performed By: #### 5 5454-3 ####[facility] LABIA [id number] [address] OF [facility] No Panel Informationon 02-24 Interpretation and review of laboratory results Normal [facility] RHEUMATOID FACTORon 02-25-20 25 Rheumatoid factor Qn NINF [facility] Rheumatoid fact SerPl-aCncon 02-24-2025 Rheumatoid factor Qn [IU]/mL Normal <16 [facility] Comment on above: Order Comment: Speci men Type: BLOOD SPECIMENOrdering Facility: [facility] Address: [address] [place] [address] Performed By: #### 2 4321-2, 3015-3, 1987-12, 51168-9 ####[facility] LABIA [id number] [address] OF [facility] TSH SerPl-aCncon 02-24-2025 TSH Qn 2.650 m[IU]/L Normal 0.270-4.200 [facility] Comment on above: Order Comment: Speci men Type: BLOOD SPECIMENOrdering Facility: [facility] Address: [address] [place] [address] Performed By: #### 2 4321-2, 6-3, 1987-12, ####[facility] [id number] [address] [place] CNOVon 02-04-2025 CNOV Office Visit (PODIWS ) KEMAL CANTU ([id number]) 1945 F Date Time Provider Department 02/04/25 11:00 AM ANDERSON MIMS During your visit today, we recorded the following information about you: Lashonda Cortes LPN 02/05/2025 12:29 PM Signed AMB ROOMING INTAKE FLOWSHEET DATA Patient presents with: Right 4th Toe - Hammer Toe, Established Patient, Follow Up Right Foot - Established Patient: Discuss PVR Left Foot - Established Patient: Discuss PVR EARNEST Yañez Matthew 02/04/2025 11:36 AM Signed - Continue wearing the gel hammer-toe pads you like to help reduce pressure on your toes. - File down the calluses at home about every 6 weeks (or sooner if they return) using a pumice stonel; you may also schedule an in-office callus debridement every 6 weeks as needed. - Watch your toes for any new redness, pain, or open sores; if you develop an ulcer or the callus becomes painful, call the office promptly. - When you?re ready to discuss the flexor tenotomy procedure (cutting the tendon to help straighten the toe) or other surgical options, please contact us to set up that conversation. Anderson Mims 02/05/2025 12:29 PM Signed Subjective Irma Cantu is a 79-year-old female with a history of hammer toe deformities, presenting for follow-up on callus formation and foot pain. Hammer Toe Deformities: - Rigid hammer toe deformities of the right second and third toes; semi-rigid deformity of the right fourth toe. - Rigid hammer toe deformities of the left second and third toes. - Previous arthroplasty of the fourth and fifth toes, with bone sections removed. - Previous tenotomy on the right second toe, which provided significant relief. - Denies pain in the right second toe. Callus Formation: - Pre-ulcerative callus on the tip of the right fourth toe, no ulcer present. - Callus formation has improved since December, with a crust coming off last night. - Using a gel pad to alleviate pressure on the toes. - Considering a flexor tenotomy for the right fourth toe to limit curling and reduce callus formation. Musculoskeletal: (-) right second toe pain Skin: (+) calluses bilateral toes Neurological: (+) decreased sensation bilateral feet PAST MEDICAL HISTORY Diagnosis Date Diabetes mellitus (HCC) Fibromyalgia Fuchs' corneal dystrophy Gastroesophageal reflux disease Glaucoma HTN (hypertension) Hypothyroidism Irritable bowel syndrome Migraines MAURICE (obstructive sleep apnea) does not use c-pap Osteoarthritis Plantar fasciitis PONV (postoperative nausea and vomiting) Pseudophakia PTSD (post-traumatic stress disorder) Restless leg syndrome Sleep apnea in adult TMJ (dislocation of temporomandibular joint) Current Outpatient Medications Medication Sig Dispense Refill gabapentin enacarbil (HORIZANT) 300 mg TbER Take 1 tablet TID. 270 tablet 1 pramipexole (MIRAPEX) 0.125 mg tablet Take 1 tablet at 2 PM, 1 tablet at dinnertime, 2 tablets at 9 pm, and 2 tablets at bedtime 540 tablet 1 omeprazole (PRILOSEC) 40 mg capsule Take 1 capsule by mouth two times a day. 180 capsule 1 atorvastatin (LIPITOR) 10 mg tablet Take 1 tablet by mouth once daily. 90 tablet 3 buPROPion SR (WELLBUTRIN SR) 150 mg 12 hr tablet Take 1 tablet by mouth once daily. 180 tablet 3 conjugated estrogens (PREMARIN) vaginal cream Use 0.5 g vaginally two times a week. 12 g 3 levothyroxine (SYNTHROID) 75 mcg tablet take 1 tablet by mouth once daily ON AN EMPTY STOMACH 90 tablet 3 valsartan (DIOVAN) 320 mg tablet Take 1 tablet by mouth once daily. 90 tablet 1 naproxen (NAPROSYN) 500 mg tablet Take 1 tablet by mouth two times a day as needed. Take with food. 30 tablet 0 montelukast (SINGULAIR) 10 mg tablet Take 1 tablet by mouth daily at bedtime. 90 tablet 3 nystatin (MYCOSTATIN) powder Apply 1 application to affected area four times daily. 30 g 1 semaglutide (OZEMPIC) 2 mg/dose (8 mg/3 mL) pen injector Inject 2 mg subcutaneously one time a week. 9 mL 3 fluticasone (FLONASE) 50 mcg/actuation nasal spray instill 2 sprays into each nostril once daily 3 Each 3 ketoconazole (NIZORAL) 2 % cream Apply to affected area once daily. Used for fungal skin fold rashes 30 g 3 LUMIGAN 0.01 % drop ophthalmic drops instill 1 drop into both eyes at bedtime 5 mL 11 fluorometholone (FML LIQUID FILM) 0.1 % ophthalmic suspension instill 1 drop into both eyes twice a day as directed fluorometholone (FML LIQUID FILM) 0.1 % ophthalmic suspension 1 Drop every 4 hours. Magnesium Oxide 500 mg tab Take 500 mg by mouth once daily. Taking in gummy form ubidecarenone (COENZYME Q10) 100 mg tab Take 200 mg by mouth once daily. simethicone (GAS-X ORAL) Take 125 mg by mouth twice daily. multivit,thx,calcium, iron,mins (MULTIVITAMIN AND MINERAL ORAL) Take 1 tablet by mouth once daily. vitamin K2 10 (more content not included)... Normal [facility] PVR ANK PRESS NOBLE VAS LABon 01-29-2025 PVR ANK PRESS NOBLE VAS LAB Non-Invasive Vascular Laboratory [facility] Lower Extremity Arterial Physiology Study Bilateral/Complete Date of service/time: 01/29/2025 10:53:53 AM Name: MISS KEMAL CANTU Date of : 1945 Age: 79 years Gender: F Clinical Indication Leg/foot ulceration and decreased pulses. TECHNIQUE -------- An arterial physiological examination was performed, including measurement of blood pressures using continuous wave Doppler and recording of plethysmographic with or without Doppler waveforms at the below-mentioned limb segments. FINDINGS -------- RIGHT SIDE AT REST Right Doppler Waveforms Dorsalis pedis: Multiphasic. Post tibial: Multiphasic. Right Pressures Brachial: 145 mmHg Ankle dorsalis pedis: 179 mmHg SADE: 1.23 Ankle posterior tibial: 179 mmHg SADE: 1.23 Digit: 209 mmHg Right PVR Waveforms Ankle: Normal. Transmetatarsal: Normal. Digit: Normal. LEFT SIDE AT REST Left Doppler Waveforms Dorsalis pedis: Multiphasic. Post tibial: Multiphasic. Left Pressures Brachial: 136 mmHg Ankle dorsalis pedis: 169 mmHg SADE: 1.17 Ankle posterior tibial: 175 mmHg SADE: 1.21 Digit: 228 mmHg Left PVR Waveforms Ankle: Normal. Transmetatarsal: Normal. Digit: Normal. IMPRESSION Compared to prior study of 03/17/2022, Right SADE was 1.10, Left SADE was 1.11. RIGHT SIDE Resting right ankle brachial index: 1.23 Right toe brachial index: 1.44 Partially non-compressible arteries. Normal ankle brachial index at rest in the right leg. Normal toe brachial index at rest in the right leg. Right ankle: Normal at rest. LEFT SIDE Resting left ankle brachial index: 1.21 Left toe brachial index: 1.57 Partially non-compressible arteries. Normal ankle brachial index at rest in the left leg. Normal toe brachial index at rest in the left leg. Left ankle: Normal at rest. Technologist: Laurie Santos RVT Ordering physician: ANDERSON MIMS Interpreting physician: Carlos Cortez MD, RPVI Final CC [employer] Medical Image : [id number] [id number] See Link below for Image Normal [facility] CNOVon 01-20-2025 CNOV Office Visit (SLEWST ) KEMAL CANTU ([id number]) 1945 F Date Time Provider Department 01/20/25 10:40 AM HOLLIE BLEVINS JR During your visit today, we recorded the following information about you: Pulse Respiration Blood pressure Weight 66/minute 18/minute 138/82 123.1 kg Hollie Blevins Jr., MD 01/20/2025 11:29 AM Signed ESTABLISHED PATIENT VISIT CHIEF COMPLAINT: Follow Up HISTORY OF PRESENT ILLNESS: Kemal Cantu is a 79 year old female, BMI 42.51 kg/m2 with a PMH significant for and per last office visit note with Gini Constantino CNP on 06/21/24: Rls (restless legs syndrome) (primary encounter diagnosis) Iron deficiency anemia, unspecified iron deficiency anemia type Vitamin d deficiency Kemal Cantu is a 78 year old female with RLS, MICHELLE, vit D deficiency She is satisfied with current med regimen for RLS, prefers not to try long-acting pramipexole We discussed potential for augmentation PLAN: --Continue meds Horizant 300 mg -- 1 tab at 2 PM and 2 tabs at 5 PM Pramipexole 0.125 mg -- 6 tabs daily -- 1 tab at 2 PM, 1 at dinner, 2 at 9 pm, and 2 at HS --We discussed Nidra by Noctrix for refractory RLS. She likes the idea, if her sxs worsen or she develops augmentation then she would like to proceed with it. --Labs to be done when she has blood draw for PCP, vit d and iron stores During interim, insurance denied Horizant after being on it for years. Switched to gabapentin ER resulting in multiple side effects. These include exhaustion, brain fog, feeling loopy, nausea and diarrhea and weight gain. All started after initiating gabapentin ER. Patient did go back to Horizant this weekend but only had enough for 2 tabs per day - mild RLS but much improved than when on gabapentin ER. States since back on Horizant side effects resolving. Failed Gabapentin, Gabapentin ER, and already on Mirapex (risk of augmentation and would not increase dose). Previously on Oxy for surgery and improved RLS but was loopy with significant cognitive impairment and could not focus. Also on Fe supplements. Latest Reference Range AND Units 05/25/20 09:37 03/19/21 11:10 08/18/21 13:24 05/19/22 12:15 05/15/23 16:01 08/20/24 08:40 Ferritin 14.7 - 205.1 ng/mL 84.1 78.2 35.4 47.4 54.3 51.2 REVIEW OF SYSTEMS GENERAL:No weight loss, malaise or fevers. HEENT:Negative for frequent or significant headaches, No changes in hearing or vision, no nose bleeds or other nasal problems NECK:Negative for lumps, goiter, pain and significant neck swelling RESPIRATORY: Negative for cough, wheezing or shortness of breath. CARDIOVASCULAR: Negative for chest pain, leg swelling or palpitations. GASTROINTESTINAL: Negative for abdominal discomfort, blood in stools or black stools or change in bowel habits GENITOURINARY: No history of dysuria, frequency or incontinence MUSCULOSKELETAL: Negative for joint pain or swelling, back pain or muscle pain. NEUROLOGIC: See HPI. LAB/IMAGING: Those performed since patient's last visit have been reviewed. WBC (k/uL) Date Value 08/20/2024 3.72 RBC (m/uL) Date Value 08/20/2024 4.72 Hemoglobin (g/dL) Date Value 08/20/2024 14.0 Hematocrit (%) Date Value 08/20/2024 43.3 MCV (fL) Date Value 08/20/2024 91.7 MCH (pg) Date Value 08/20/2024 29.7 MCHC (g/dL) Date Value 08/20/2024 32.3 RDW-CV (%) Date Value 08/20/2024 13.5 Platelet Count (k/uL) Date Value 08/20/2024 215 MPV (fL) Date Value 08/20/2024 9.6 Glucose (mg/dL) Date Value 08/20/2024 117 (H) BUN (mg/dL) Date Value 08/20/2024 13 Creatinine (mg/dL) Date Value 08/20/2024 0.90 Sodium (mmol/L) Date Value 08/20/2024 141 Potassium (mmol/L) Date Value 08/20/2024 4.6 Chloride (mmol/L) Date Value 08/20/2024 102 CO2 (mmol/L) Date Value 08/20/2024 28 Protein, Total (g/dL) Date Value 08/20/2024 6.6 Albumin (g/dL) Date Value 08/20/2024 4.0 Calcium, Total (mg/dL) Date Value 08/20/2024 9.7 Alkaline Phosphatase (U/L) Date Value 08/20/2024 92 Bilirubin, Total (mg/dL) Date Value 08/20/2024 0.5 AST (U/L) Date Value 08/20/2024 20 ALT (U/L) Date Value 08/20/2024 23 MEDICATIONS: omeprazole (PRILOSEC) 40 mg capsule Take 1 capsule by mouth two times a day. atorvastatin (LIPITOR) 10 mg tablet Take 1 tablet by mouth once daily. buPROPion SR (WELLBUTRIN SR) 150 mg 12 hr tablet Take 1 tablet by mouth once daily. conjugated estrogens (PREMARIN) vaginal cream Use 0.5 g vaginally two times a week. levothyroxine (SYNTHROID) 75 mcg tablet take 1 tablet by mouth once daily ON AN EMPTY STOMACH valsartan (DIOVAN) 320 mg tablet Take 1 tablet by mouth once daily. naproxen (NAPROSYN) 500 mg tablet Take 1 tablet by mouth two times a day as needed. Take with food. montelukast (SINGULAIR) 10 mg tablet Take 1 tablet by mouth daily at bedtime. pramipexole (more content not included)... Normal [facility] 01-20-2025 [facility] Telephone (SLEWST) KEMAL CANTU ([id number]) 1945 F Date Time Provider Department 01/20/25 HOLLIE BLEVINS JR During your visit today, we recorded the following information about you: Katie Reeves LPN 01/20/2025 11:57 AM Addendum PA requested through [employer]. Received message PA previously denied. Appeal faxed to [employer]. Please watch for determination. EARNEST Vazquez Lori, LPN 02/11/2025 11:21 AM Signed PA appeal was approved. Katie Reeves LPN Allergies As of Date: 01/20/2025 Noted Allergy Reaction BACITRACIN (BULK) 02/07/2019 4 - Hives CODEINE 02/07/2019 16 - Unknown DUST MITES 01/23/2020 14 - Other: See Comments GENTAMICIN 11/30/2021 7 - Swelling Comments: redness of eye watery and itching MOLD 01/23/2020 16 - Unknown SULFA (SULFONAMIDE ANTIBIOTICS) 02/07/2019 14 - Other: See Comments Comments: redness SULFABENZAMIDE 11/30/2021 4 - Hives TREE POLLEN-RED MAPLE 02/16/2021 12 - Shortness of Breath Date Reviewed: 01/20/2025 Reviewed by: Hollie Blevins Jr., MD - Fully Assessed Reason for Visit: Insurance Authorization [[id number]] Cmt: [facility]ant Prescriptions as of 02/11/2025 - gabapentin enacarbil (HORIZANT) 300 mg TbER Take 1 tablet TID. - pramipexole (MIRAPEX) 0.125 mg tablet Take 1 tablet at 2 PM, 1 tablet at dinnertime, 2 tablets at 9 pm, and 2 tablets at bedtime - omeprazole (PRILOSEC) 40 mg capsule Take 1 capsule by mouth two times a day. - atorvastatin (LIPITOR) 10 mg tablet Take 1 tablet by mouth once daily. - buPROPion SR (WELLBUTRIN SR) 150 mg 12 hr tablet Take 1 tablet by mouth once daily. - conjugated estrogens (PREMARIN) vaginal cream Use 0.5 g vaginally two times a week. - levothyroxine (SYNTHROID) 75 mcg tablet take 1 tablet by mouth once daily ON AN EMPTY STOMACH - valsartan (DIOVAN) 320 mg tablet Take 1 tablet by mouth once daily. - naproxen (NAPROSYN) 500 mg tablet Take 1 tablet by mouth two times a day as needed. Take with food. - montelukast (SINGULAIR) 10 mg tablet Take 1 tablet by mouth daily at bedtime. - nystatin (MYCOSTATIN) powder Apply 1 application to affected area four times daily. - semaglutide (OZEMPIC) 2 mg/dose (8 mg/3 mL) pen injector Inject 2 mg subcutaneously one time a week. - fluticasone (FLONASE) 50 mcg/actuation nasal spray instill 2 sprays into each nostril once daily - ketoconazole (NIZORAL) 2 % cream Apply to affected area once daily. Used for fungal skin fold rashes - LUMIGAN 0.01 % drop ophthalmic drops instill 1 drop into both eyes at bedtime - fluorometholone (FML LIQUID FILM) 0.1 % ophthalmic suspension instill 1 drop into both eyes twice a day as directed - fluorometholone (FML LIQUID FILM) 0.1 % ophthalmic suspension 1 Drop every 4 hours. - ascorbic acid, vitamin C, (VITAMIN C) 500 mg tablet Take 1 tablet by mouth twice daily with meals for 27 doses. - aspirin, enteric coated (ASPIRIN, ENTERIC COATED) 81 mg EC tablet Take 1 tablet by mouth twice daily for 28 days. - Magnesium Oxide 500 mg tab Take 500 mg by mouth once daily. Taking in gummy form - ubidecarenone (COENZYME Q10) 100 mg tab Take 200 mg by mouth once daily. - simethicone (GAS-X ORAL) Take 125 mg by mouth twice daily. - multivit,thx,calcium, iron,mins (MULTIVITAMIN AND MINERAL ORAL) Take 1 tablet by mouth once daily. - vitamin K2 100 mcg cap Take 100 mcg by mouth. - Zinc 50 mg tab Take 50 mg by mouth. - amLODIPine (NORVASC) 2.5 mg tablet Take 2.5 mg by mouth once daily. - metoprolol tartrate, short acting, (LOPRESSOR) 50 mg tablet Take 50 mg by mouth once daily. - Bifidobacterium infantis (ALIGN ORAL) Take 1 tablet by mouth once daily. - diclofenac sodium (VOLTAREN) 1 % topical gel Apply 2 g to affected area four times daily. - amoxicillin (POLYMOX, AMOXIL) 500 mg capsule Take 500 mg by mouth. Take 4 capsules 1 hour before dental procedures. - ferrous sulfate EC 324 mg (65 mg iron) TbEC Take 324 mg by mouth once daily. Twice a day Problem List As Of Date 01/20/2025 Noted Resolved Class 3 severe obesity due to excess calories w*04/06/2019 Type 2 diabetes mellitus, without long-term cur*04/10/2019 Essential hypertension, benign [I10] 04/10/2019 Mixed hyperlipidemia [E78.2] 04/10/2019 Hypothyroidism [E03.9] 04/10/2019 MICHELLE (iron deficiency anemia) [D50.9] 04/10/2019 Anxiety and depression [F41.9, F32.A] 04/10/2019 Chronic back pain [M54.9, G89.29] 04/10/2019 Primary osteoarthritis involving multiple joint*04/10/2019 GERD (gastroesophageal reflux disease) [K21.9] 04/10/2019 Other irritable bowel syndrome [K58.8] 04/10/2019 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 [G47.33] 04/10/2019 09/01/2023 Chronic headache [R51.9, G89.29] 04/10/2019 RLS (restless legs syndrome) [G25.81] 04/10/2019 Fibromyalgia [M79.7] 04/10/2019 Fuchs' endothelial dystrophy [H18.519] 04/10/2019 Spinal stenosis of lumbar region with ne (more content not included)... Normal [facility] CNPLucero 01-17-2025 CNPN Telephone (MARYLU) KEMAL CANTU ([id number]) 1945 F Date Time Provider Department 01/17/25 HOLLIE BLEVINS JR During your visit today, we recorded the following information about you: Nat Manriquez RN 01/17/2025 9:59 AM Signed Patient calls and states that she does not want to take Gabapentin anymore. Patient reports that the side effects are just too much for her to handle. Side effects include: Exhaustion Sleepiness Brain Fog Loss of Focus Shakiness Diarrhea Nausea Gained 4 pounds Does not help with Restless Legs Patient states that she does have an appointment with Dr. Blevins on Monday01/20/2025. Patient states that she wants to stop medication prior to this appointment because she has no life. Patient states that she read that she has to be weaned off of medication or she could go through withdrawal. Patient is asking for medication to be discontinued. Please review and advise, PETR Martinez William J Jr., MD 01/17/2025 12:13 PM Signed I have not seen patient in over a year. Please find out how much gabapentin she is taking. Uncertain we will be able to stop by time of appointment. Note that review of meds suggest other possible medications she is taking could be doing this including Mirapex. We will further discuss those at time of visit. MD Bri Soria Barbara, LPN 01/17/2025 2:23 PM Signed TC to Pt. Pt stated her insurance would not pay for her Horizant med any more and wanted to change to Gabapentin ER. Pt has been on for [address] Marino advised Pt to take her Gabapentin enacarbil (Horizant) Bid to get to her appt. on Monday. Carol Gregory LPN Allergies As of Date: 01/17/2025 Noted Allergy Reaction BACITRACIN (BULK) 02/07/2019 4 - Hives CODEINE 02/07/2019 16 - Unknown DUST MITES 01/23/2020 14 - Other: See Comments GENTAMICIN 11/30/2021 7 - Swelling Comments: redness of eye watery and itching MOLD 01/23/2020 16 - Unknown SULFA (SULFONAMIDE ANTIBIOTICS) 02/07/2019 14 - Other: See Comments Comments: redness SULFABENZAMIDE 11/30/2021 4 - Hives TREE POLLEN-RED MAPLE 02/16/2021 12 - Shortness of Breath Date Reviewed: 12/23/2024 Reviewed by: Lashonda Cortes LPN - Fully Assessed Reason for Visit: Patient Update [1234] Prescriptions as of 01/20/2025 - gabapentin enacarbil (HORIZANT) 300 mg TbER Take 1 tablet TID. - pramipexole (MIRAPEX) 0.125 mg tablet Take 1 tablet at 2 PM, 1 tablet at dinnertime, 2 tablets at 9 pm, and 2 tablets at bedtime - omeprazole (PRILOSEC) 40 mg capsule Take 1 capsule by mouth two times a day. - atorvastatin (LIPITOR) 10 mg tablet Take 1 tablet by mouth once daily. - buPROPion SR (WELLBUTRIN SR) 150 mg 12 hr tablet Take 1 tablet by mouth once daily. - conjugated estrogens (PREMARIN) vaginal cream Use 0.5 g vaginally two times a week. - levothyroxine (SYNTHROID) 75 mcg tablet take 1 tablet by mouth once daily ON AN EMPTY STOMACH - valsartan (DIOVAN) 320 mg tablet Take 1 tablet by mouth once daily. - naproxen (NAPROSYN) 500 mg tablet Take 1 tablet by mouth two times a day as needed. Take with food. - montelukast (SINGULAIR) 10 mg tablet Take 1 tablet by mouth daily at bedtime. - nystatin (MYCOSTATIN) powder Apply 1 application to affected area four times daily. - semaglutide (OZEMPIC) 2 mg/dose (8 mg/3 mL) pen injector Inject 2 mg subcutaneously one time a week. - fluticasone (FLONASE) 50 mcg/actuation nasal spray instill 2 sprays into each nostril once daily - ketoconazole (NIZORAL) 2 % cream Apply to affected area once daily. Used for fungal skin fold rashes - LUMIGAN 0.01 % drop ophthalmic drops instill 1 drop into both eyes at bedtime - fluorometholone (FML LIQUID FILM) 0.1 % ophthalmic suspension instill 1 drop into both eyes twice a day as directed - fluorometholone (FML LIQUID FILM) 0.1 % ophthalmic suspension 1 Drop every 4 hours. - ascorbic acid, vitamin C, (VITAMIN C) 500 mg tablet Take 1 tablet by mouth twice daily with meals for 27 doses. - aspirin, enteric coated (ASPIRIN, ENTERIC COATED) 81 mg EC tablet Take 1 tablet by mouth twice daily for 28 days. - Magnesium Oxide 500 mg tab Take 500 mg by mouth once daily. Taking in gummy form - ubidecarenone (COENZYME Q10) 100 mg tab Take 200 mg by mouth once daily. - simethicone (GAS-X ORAL) Take 125 mg by mouth twice daily. - multivit,thx,calcium, iron,mins (MULTIVITAMIN AND MINERAL ORAL) Take 1 tablet by mouth once daily. - vitamin K2 100 mcg cap Take 100 mcg by mouth. - Zinc 50 mg tab Take 50 mg by mouth. - amLODIPine (NORVASC) 2.5 mg tablet Take 2.5 mg by mouth once daily. - metoprolol tartrate, short acting, (LOPRESSOR) 50 mg tablet Take 50 mg by mouth once daily. - Bifidobacterium infantis (ALIGN ORAL) Take 1 tablet by mouth once daily. - diclofenac sodium (VOLTAREN) (more content not included)... Normal [facility] 12-29-2024 [facility] Telephone (SLEWST) KEMAL CANTU ([id number]) 1945 F Date Time Provider Department 12/29/24 ALTAGRACIA CONSTANTINO During your visit today, we recorded the following information about you: Radha Casillas OCCA 12/29/2024 8:09 AM Signed Request received on CoverMyMeds for Gabapentin. Prior authorization completed using [employer]: [id number] Please watch for determination. LISSETTE Oneil Gillian, OCCA 12/30/2024 8:49 AM Signed CoverMyMeds stating PA has already submitted and is in process for this patient and drug.;CaseId:[id number] ;Status:In Process Nat Manriquez RN 01/03/2025 1:21 PM Signed Patient calls back and states that she had talked to insurance and insurance had told her that if provider changes prescription to 60 tablets for 30 days then insurance would cover medication. This is taking the medication 1 pill twice a day. Please review and advise, PETR Martinez Rebecca, APRN.CNP 01/03/2025 5:06 PM Signed I rewrote for bid per pt request Altagracia Constantino APRN.MICROGRINDER OPERATOR Allergies As of Date: 12/29/2024 Noted Allergy Reaction BACITRACIN (BULK) 02/07/2019 4 - Hives CODEINE 02/07/2019 16 - Unknown DUST MITES 01/23/2020 14 - Other: See Comments GENTAMICIN 11/30/2021 7 - Swelling Comments: redness of eye watery and itching MOLD 01/23/2020 16 - Unknown SULFA (SULFONAMIDE ANTIBIOTICS) 02/07/2019 14 - Other: See Comments Comments: redness SULFABENZAMIDE 11/30/2021 4 - Hives TREE POLLEN-RED MAPLE 02/16/2021 12 - Shortness of Breath Date Reviewed: 12/23/2024 Reviewed by: Lashonda Cortes LPN - Fully Assessed Reason for Visit: Insurance Authorization [1693] Cmt: Gabapentin Visit Diagnosis:RLS (restless legs syndrome) [G25.81] Order(s):gabapentin 300 mg [id number] 1 tablet by mouth two times a day for 90 days.Disp: 60 tabletRfl: 2 Prescriptions as of 01/08/2025 - gabapentin 300 mg Tb24 Take 1 tablet by mouth two times a day for 90 days. - omeprazole (PRILOSEC) 40 mg capsule Take 1 capsule by mouth two times a day. - atorvastatin (LIPITOR) 10 mg tablet Take 1 tablet by mouth once daily. - buPROPion SR (WELLBUTRIN SR) 150 mg 12 hr tablet Take 1 tablet by mouth once daily. - conjugated estrogens (PREMARIN) vaginal cream Use 0.5 g vaginally two times a week. - levothyroxine (SYNTHROID) 75 mcg tablet take 1 tablet by mouth once daily ON AN EMPTY STOMACH - valsartan (DIOVAN) 320 mg tablet Take 1 tablet by mouth once daily. - naproxen (NAPROSYN) 500 mg tablet Take 1 tablet by mouth two times a day as needed. Take with food. - montelukast (SINGULAIR) 10 mg tablet Take 1 tablet by mouth daily at bedtime. - pramipexole (MIRAPEX) 0.125 mg tablet Take 1 tablet at 2 PM, 1 tablet at dinnertime, 2 tablets at 9 pm, and 2 tablets at bedtime - nystatin (MYCOSTATIN) powder Apply 1 application to affected area four times daily. - semaglutide (OZEMPIC) 2 mg/dose (8 mg/3 mL) pen injector Inject 2 mg subcutaneously one time a week. - fluticasone (FLONASE) 50 mcg/actuation nasal spray instill 2 sprays into each nostril once daily - ketoconazole (NIZORAL) 2 % cream Apply to affected area once daily. Used for fungal skin fold rashes - LUMIGAN 0.01 % drop ophthalmic drops instill 1 drop into both eyes at bedtime - fluorometholone (FML LIQUID FILM) 0.1 % ophthalmic suspension instill 1 drop into both eyes twice a day as directed - fluorometholone (FML LIQUID FILM) 0.1 % ophthalmic suspension 1 Drop every 4 hours. - ascorbic acid, vitamin C, (VITAMIN C) 500 mg tablet Take 1 tablet by mouth twice daily with meals for 27 doses. - aspirin, enteric coated (ASPIRIN, ENTERIC COATED) 81 mg EC tablet Take 1 tablet by mouth twice daily for 28 days. - Magnesium Oxide 500 mg tab Take 500 mg by mouth once daily. Taking in gummy form - ubidecarenone (COENZYME Q10) 100 mg tab Take 200 mg by mouth once daily. - simethicone (GAS-X ORAL) Take 125 mg by mouth twice daily. - multivit,thx,calcium, iron,mins (MULTIVITAMIN AND MINERAL ORAL) Take 1 tablet by mouth once daily. - vitamin K2 100 mcg cap Take 100 mcg by mouth. - Zinc 50 mg tab Take 50 mg by mouth. - amLODIPine (NORVASC) 2.5 mg tablet Take 2.5 mg by mouth once daily. - metoprolol tartrate, short acting, (LOPRESSOR) 50 mg tablet Take 50 mg by mouth once daily. - Bifidobacterium infantis (ALIGN ORAL) Take 1 tablet by mouth once daily. - diclofenac sodium (VOLTAREN) 1 % topical gel Apply 2 g to affected area four times daily. - amoxicillin (POLYMOX, AMOXIL) 500 mg capsule Take 500 mg by mouth. Take 4 capsules 1 hour before dental procedures. - ferrous sulfate EC 324 mg (65 mg iron) TbEC Take 324 mg by mouth once daily. Twice a day Problem List As Of Date 12/29/2024 Noted Resolved Class 3 severe obesity due to excess calories w*04/06/2019 Type 2 diabetes mellitus, without long-term cur*04/10/2019 Ess (more content not included)... [facility] Telephone (ANATOLIY) KEMAL CANTU ([id number]) 1945 F Date Time Provider Department 12/27/24 ALTAGRACIA CONSTANTINO During your visit today, we recorded the following information about you: Felicita Garnica, RN 12/27/2024 4:09 PM Signed patient is calling in due the gabapentin rx that was sent to the pharmacy is not covered under insurance due to it is written for three times daily, insurance will only cover twice daily. patient is asking if a new rx for the gabapentin can be sent to [facility] for twice daily so insurance will cover medication. please review and advise patient would like called back with information Altagracia Constantino APRN.BILL 12/27/2024 5:16 PM Signed I rewrote the Rx Altagracia Constantino APRN.BILL Radha CasillasMERLINShama 12/27/2024 5:40 PM Signed TC to patient who is informed Rx sent as requested. Radha CasillasMERLINShama Allergies As of Date: 12/27/2024 Noted Allergy Reaction BACITRACIN (BULK) 02/07/2019 4 - Hives CODEINE 02/07/2019 16 - Unknown DUST MITES 01/23/2020 14 - Other: See Comments GENTAMICIN 11/30/2021 7 - Swelling Comments: redness of eye watery and itching MOLD 01/23/2020 16 - Unknown SULFA (SULFONAMIDE ANTIBIOTICS) 02/07/2019 14 - Other: See Comments Comments: redness SULFABENZAMIDE 11/30/2021 4 - Hives TREE POLLEN-RED MAPLE 02/16/2021 12 - Shortness of Breath Date Reviewed: 12/23/2024 Reviewed by: Lashonda Cortes LPN - Fully Assessed Reason for Visit: Medication Problem [65] Primary Visit Diagnosis:RLS (restless legs syndrome) [G25.81] Order(s):gabapentin 300 mg [id number] 1 pill by mouth at 2 PM and 2 pills at 5 PMDisp: 90 tabletRfl: 2 Prescriptions as of 12/27/2024 - gabapentin 300 mg Tb24 Take 1 pill by mouth at 2 PM and 2 pills at 5 PM - omeprazole (PRILOSEC) 40 mg capsule Take 1 capsule by mouth two times a day. - atorvastatin (LIPITOR) 10 mg tablet Take 1 tablet by mouth once daily. - buPROPion SR (WELLBUTRIN SR) 150 mg 12 hr tablet Take 1 tablet by mouth once daily. - conjugated estrogens (PREMARIN) vaginal cream Use 0.5 g vaginally two times a week. - levothyroxine (SYNTHROID) 75 mcg tablet take 1 tablet by mouth once daily ON AN EMPTY STOMACH - valsartan (DIOVAN) 320 mg tablet Take 1 tablet by mouth once daily. - naproxen (NAPROSYN) 500 mg tablet Take 1 tablet by mouth two times a day as needed. Take with food. - montelukast (SINGULAIR) 10 mg tablet Take 1 tablet by mouth daily at bedtime. - pramipexole (MIRAPEX) 0.125 mg tablet Take 1 tablet at 2 PM, 1 tablet at dinnertime, 2 tablets at 9 pm, and 2 tablets at bedtime - nystatin (MYCOSTATIN) powder Apply 1 application to affected area four times daily. - semaglutide (OZEMPIC) 2 mg/dose (8 mg/3 mL) pen injector Inject 2 mg subcutaneously one time a week. - fluticasone (FLONASE) 50 mcg/actuation nasal spray instill 2 sprays into each nostril once daily - ketoconazole (NIZORAL) 2 % cream Apply to affected area once daily. Used for fungal skin fold rashes - LUMIGAN 0.01 % drop ophthalmic drops instill 1 drop into both eyes at bedtime - fluorometholone (FML LIQUID FILM) 0.1 % ophthalmic suspension instill 1 drop into both eyes twice a day as directed - fluorometholone (FML LIQUID FILM) 0.1 % ophthalmic suspension 1 Drop every 4 hours. - ascorbic acid, vitamin C, (VITAMIN C) 500 mg tablet Take 1 tablet by mouth twice daily with meals for 27 doses. - aspirin, enteric coated (ASPIRIN, ENTERIC COATED) 81 mg EC tablet Take 1 tablet by mouth twice daily for 28 days. - Magnesium Oxide 500 mg tab Take 500 mg by mouth once daily. Taking in gummy form - ubidecarenone (COENZYME Q10) 100 mg tab Take 200 mg by mouth once daily. - simethicone (GAS-X ORAL) Take 125 mg by mouth twice daily. - multivit,thx,calcium, iron,mins (MULTIVITAMIN AND MINERAL ORAL) Take 1 tablet by mouth once daily. - vitamin K2 100 mcg cap Take 100 mcg by mouth. - Zinc 50 mg tab Take 50 mg by mouth. - amLODIPine (NORVASC) 2.5 mg tablet Take 2.5 mg by mouth once daily. - metoprolol tartrate, short acting, (LOPRESSOR) 50 mg tablet Take 50 mg by mouth once daily. - Bifidobacterium infantis (ALIGN ORAL) Take 1 tablet by mouth once daily. - diclofenac sodium (VOLTAREN) 1 % topical gel Apply 2 g to affected area four times daily. - amoxicillin (POLYMOX, AMOXIL) 500 mg capsule Take 500 mg by mouth. Take 4 capsules 1 hour before dental procedures. - ferrous sulfate EC 324 mg (65 mg iron) TbEC Take 324 mg by mouth once daily. Twice a day Problem List As Of Date 12/27/2024 Noted Resolved Class 3 severe obesity due to excess calories w*04/06/2019 Type 2 diabetes mellitus, without long-term cur*04/10/2019 Essential hypertension, benign [I10] 04/10/2019 Mixed hyperlipidemia [E78.2] 04/10/2019 Hypothyroidism [E03.9] 04/10/2019 MICHELLE (iron deficiency anemia) [D50.9] 04/10/2019 Anxiety and (more content not included)... Normal [facility] CNOVon 12-23-2024 CNOV Office Visit (PODIWS ) KEMAL CANTU ([id number]) 1945 F Date Time Provider Department 12/23/24 11:00 AM [facility] PODIWS During your visit today, we recorded the following information about you: Lashonda Cortes LPN 12/23/2024 10:21 PM Signed AMB ROOMING INTAKE FLOWSHEET DATA Pain Pain Level: 8 Pain Location: Toe Description: Aching, Sharp Duration Amount of Time: 1.5 Duration Units: Months Frequency: Intermittent Intervention/Comfort measure: Reposition, Relaxation Patient presents with: Right 4th Toe - New, Pain, Diabetic Foot Ulcer Left Foot - New, Diabetic Foot Care Right Foot - New, Diabetic Foot Care EARNEST Yañez Matthew 12/23/2024 11:35 AM Signed You have been provided with a hammer toe pad to help relieve pressure on the pre-ulcerative callus on your affected toe. Use the pad as directed; it is crescent-shaped and goes under the toe with a strap. Be careful not to pull the strap too tight. A small amount of Neosporin has been applied to the area, and a bandage was placed on your toe. Keep the area clean and dry. An x-ray of both feet has been ordered today so that we can further assess the hammer toes and surrounding structures. A circulation study (toe pressure test) has been ordered to check the blood flow in your feet. Continue wearing supportive shoes and consider avoiding overly tight footwear to reduce pressure on your toes. If you notice increased pain, worsening of the callus, or any signs of an ulcer (such as increased redness, swelling, or drainage), please contact our office promptly. Diabetes Foot Care Instructions When you have diabetes, proper foot care is very important. Poor foot care may lead to amputation of a foot or leg. As a person with diabetes, you are more vulnerable to foot problems, because diabetes can damage your nerves and reduce blood flow to your feet. Here are some diabetes foot care tips to follow: Wash and Dry Your Feet Daily Use mild soaps Use warm water Pat your skin dry; do not rub. Thoroughly dry your feet. After washing, use lotion on your feet to prevent cracking. Do not put lotion between your toes. Examine Your Feet Each Day Check the tops and bottoms of your feet. Have someone else look at your feet if you cannot see them. Check for dry, cracked skin. Look for blisters, cuts, scratches, or other sores. Check for redness, increased warmth, or tenderness when touching any area of your feet. Check for ingrown toenails, corns, and calluses. If you get a blister or sore from your shoes, do not pop it. Apply a bandage and wear a different pair of shoes. Take Care of Your Toenails Cut toenails after bathing, when they are soft. Cut toenails straight across and smooth with a nail file. Avoid cutting into the corners of toes. Do not cut cuticles. If you have neuropathy (or decreased sensation in your feet) a fabric worker should always cut your toenails. Be Careful When Exercising Walk and exercise in comfortable shoes. Do not exercise when you have open sores on your feet. Protect Your Feet With Shoes and Socks Never go barefoot. Always protect your feet by wearing shoes or hard-soled slippers or footwear. Avoid shoes with high heels and pointed toes. Avoid shoes that expose your toes or heels (such as open-toed shoes or sandals). These types of shoes increase your risk for injury and potential infections. Try on new footwear with the type of socks you usually wear. Do not wear new shoes for more than an hour at a time. Change your socks daily. Look and feel inside your shoes before putting them on to make sure there are no foreign objects or rough areas. Avoid tight socks. Wear natural-fiber socks (cotton, wool, or a cotton-wool blend). Wear special shoes if your health care provider recommends them. Wear shoes/boots that will protect your feet from various weather conditions (cold, moisture, etc.). Make sure your shoes fit properly. If you have neuropathy (nerve damage), you may not notice that your shoes are too tight. Perform the footwear test described below. Footwear Test Use this simple test to see if your shoes fit correctly: Stand on a piece of paper. (Make sure you are standing and not sitting, because your foot changes shape when you stand.) Trace the outline of your foot. Trace the outline of your shoe. Compare the tracings: Is the shoe too narrow? Is your foot crammed into the shoe? The shoe should be at least 1/2 inch longer than your longest toe and as wide as your foot. Proper Shoe Choices The following types of shoes are best for people with diabetes Closed toes and heels Leather uppers without a seam inside At least 1/2 inch extra space at the end of your longest toe Inside of shoe should be soft with no rough areas Outer sole should be made of stif (more content not included)... Normal [facility] XR FOOT 3V AP/LAT/OBL BILon 12-23-2024 XR FOOT 3V AP/LAT/OBL NOBLE * * *Final Report* * * DATE OF EXAM: Dec 23 2024 12:13PM [id number] [id number] - XR FOOT 3V AP/LAT/OBL NOBLE / PROCEDURE REASON: multiple diagnoses * * * * Physician Interpretation * * * * EXAMINATION / TECHNIQUE: XR FOOT 3V AP/LAT/OBL NOBLE PATIENT/TECHNOLOGIST PROVIDED HISTORY: Hammertoe of right foot, 4th toe. Chronic generalized bilateral foot pain. CLINICAL INFORMATION ( PROVIDED BY ORDERING CLINICIAN) : Hammer toes of both feet Hammer toes of both feet Callus COMPARISON: RESULT: No erosions. No acute fracture or dislocation. There are hammertoes, most notably of the second toes bilaterally. Moderate osteoarthritis at the right second PIP joint. Mild degenerative changes elsewhere throughout the feet. Plantar calcaneal enthesophytes bilaterally. No erosions. No significant change. IMPRESSION: No acute osseous abnormality. Degenerative changes, as described. [place]: CHAR Transcribe Date/Time: Dec 26 2024 8:56P Dictated by : NIDHI ROSENBAUM MD This examination was interpreted and the report reviewed and electronically signed by: NIDHI ROSENBAUM MD on Dec 26 2024 8:57PM EST [id number] Normal [facility] 11-27-2024 CNPN Telephone (NEMCareXtend) KEMAL CANTU ([id number]) 1945 F Date Time Provider Department 11/27/24 ALTAGRACIA CONSTANTINO During your visit today, we recorded the following information about you: Carol Barajas, RN 11/27/2024 1:10 PM Signed Pt calling in and states her insurance doesn't want to cover her Horizant (Gabapentin Ecacarbil). When pt called insurance company, she was given the phone number noted below for prior authorization. She states Dr. Blevins's office needs to call that number. Prior Authorization Documentation Prior authorization requested for the following medication: Medication: Horizant (Gabapentin Ecacarbil) Provider: Dr. Hollie Blevins/Altagracia Constantino Below cards under scanned documents. Insurance Company Name: Medicare with [employer] Patient ID number: Medicare [id number] [employer] ID #: [id number] Pharmacy Name: [facility] Telephone number: [facility] Prior Authorization number: RxBin: [id number] RxPcn: RxGrp: Exlmdrx Life Skills Teacher number: [phone] [facility]: [id number] Alessia Mercado LPN 12/02/2024 3:39 PM Signed Attempted to do PA via cover my meds- PA was already submitted for this patient and drug which was denied.;CaseId:[id number];Status:Denied;Appe al Information: Attention:ADV[employer]Y DEPARTMENT SIMPLY PRESCRIPTIONS,EMILYSUSAN BillyMEGAN . EARNEST Cevallos Krista, LPN 12/09/2024 3:45 PM Signed Pt calls back to report that insurance advised pt to try gabapentin ER 300 mg -whatever is equivalent to what pt was taking with Horizant. Pt reports in the past she had taken Neurontin and it did not work well. Pt reports at that time she was only on Neurontin. EARNEST Ruiz Barbara, RN 12/23/2024 11:21 AM Signed Next appt 01/[address] Blevins for f/u. Carol Gregory LPN 12/25/2024 8:36 AM Signed Not sure if you had a chance to check this out. [place]y Allergies As of Date: 11/27/2024 Noted Allergy Reaction BACITRACIN (BULK) 02/07/2019 4 - Hives CODEINE 02/07/2019 16 - Unknown DUST MITES 01/23/2020 14 - Other: See Comments GENTAMICIN 11/30/2021 7 - Swelling Comments: redness of eye watery and itching MOLD 01/23/2020 16 - Unknown SULFA (SULFONAMIDE ANTIBIOTICS) 02/07/2019 14 - Other: See Comments Comments: redness SULFABENZAMIDE 11/30/2021 4 - Hives TREE POLLEN-RED MAPLE 02/16/2021 12 - Shortness of Breath Date Reviewed: 10/28/2024 Reviewed by: Radha High RD - Fully Assessed Reason for Visit: Medication Problem [65] Cmt: Horizant Prescriptions as of 12/25/2024 - omeprazole (PRILOSEC) 40 mg capsule Take 1 capsule by mouth two times a day. - atorvastatin (LIPITOR) 10 mg tablet Take 1 tablet by mouth once daily. - buPROPion SR (WELLBUTRIN SR) 150 mg 12 hr tablet Take 1 tablet by mouth once daily. - conjugated estrogens (PREMARIN) vaginal cream Use 0.5 g vaginally two times a week. - levothyroxine (SYNTHROID) 75 mcg tablet take 1 tablet by mouth once daily ON AN EMPTY STOMACH - valsartan (DIOVAN) 320 mg tablet Take 1 tablet by mouth once daily. - naproxen (NAPROSYN) 500 mg tablet Take 1 tablet by mouth two times a day as needed. Take with food. - montelukast (SINGULAIR) 10 mg tablet Take 1 tablet by mouth daily at bedtime. - gabapentin enacarbil (HORIZANT) 300 mg TbER Take 3 tablets by mouth once daily. Take one tablet at 2pm and two tablets at 5pm - pramipexole (MIRAPEX) 0.125 mg tablet Take 1 tablet at 2 PM, 1 tablet at dinnertime, 2 tablets at 9 pm, and 2 tablets at bedtime - nystatin (MYCOSTATIN) powder Apply 1 application to affected area four times daily. - semaglutide (OZEMPIC) 2 mg/dose (8 mg/3 mL) pen injector Inject 2 mg subcutaneously one time a week. - fluticasone (FLONASE) 50 mcg/actuation nasal spray instill 2 sprays into each nostril once daily - ketoconazole (NIZORAL) 2 % cream Apply to affected area once daily. Used for fungal skin fold rashes - LUMIGAN 0.01 % drop ophthalmic drops instill 1 drop into both eyes at bedtime - fluorometholone (FML LIQUID FILM) 0.1 % ophthalmic suspension instill 1 drop into both eyes twice a day as directed - fluorometholone (FML LIQUID FILM) 0.1 % ophthalmic suspension 1 Drop every 4 hours. - ascorbic acid, vitamin C, (VITAMIN C) 500 mg tablet Take 1 tablet by mouth twice daily with meals for 27 doses. - aspirin, enteric coated (ASPIRIN, ENTERIC COATED) 81 mg EC tablet Take 1 tablet by mouth twice daily for 28 days. - Magnesium Oxide 500 mg tab Take 500 mg by mouth once daily. Taking in gummy form - ubidecarenone (COENZYME Q10) 100 mg tab Take 200 mg by mouth once daily. - simethicone (GAS-X ORAL) Take 125 mg by mouth twice daily. - multivit,thx,calcium, iron,mins (MULTIVITAMIN AND MINERAL ORAL) Take 1 tablet (more content not included)... Normal [facility]20[facility] KEM[facility] CANTU ([id number]) 1945 F Date Time Provider Department 11/25/24 HELEN CHAPA During your visit today, we recorded the following information about you: Rachael Espinosa LPN 11/25/2024 12:13 PM Signed Pt calls to report she went to [facility] to sampler pickup rx for Horizant 300 mg and was advised that insurance would not approve medication. Pt reports no other medications were provided on formulary. Pt is going to call insurance to see what insurance says about what is needed and will call back. EARNEST Ruiz Jessica, LPN 11/26/2024 1:59 PM Signed PA started via [employer]. EARNEST Cevallos Jessica, LPN 12/02/2024 10:33 AM Signed Please see TE dated 11/27/24. Alessia Mercado LPN Allergies As of Date: 11/25/2024 Noted Allergy Reaction BACITRACIN (BULK) 02/07/2019 4 - Hives CODEINE 02/07/2019 16 - Unknown DUST MITES 01/23/2020 14 - Other: See Comments GENTAMICIN 11/30/2021 7 - Swelling Comments: redness of eye watery and itching MOLD 01/23/2020 16 - Unknown SULFA (SULFONAMIDE ANTIBIOTICS) 02/07/2019 14 - Other: See Comments Comments: redness SULFABENZAMIDE 11/30/2021 4 - Hives TREE POLLEN-RED MAPLE 02/16/2021 12 - Shortness of Breath Date Reviewed: 10/28/2024 Reviewed by: Radha High RD - Fully Assessed Prescriptions as of 12/02/2024 - omeprazole (PRILOSEC) 40 mg capsule Take 1 capsule by mouth two times a day. - atorvastatin (LIPITOR) 10 mg tablet Take 1 tablet by mouth once daily. - buPROPion SR (WELLBUTRIN SR) 150 mg 12 hr tablet Take 1 tablet by mouth once daily. - conjugated estrogens (PREMARIN) vaginal cream Use 0.5 g vaginally two times a week. - levothyroxine (SYNTHROID) 75 mcg tablet take 1 tablet by mouth once daily ON AN EMPTY STOMACH - valsartan (DIOVAN) 320 mg tablet Take 1 tablet by mouth once daily. - naproxen (NAPROSYN) 500 mg tablet Take 1 tablet by mouth two times a day as needed. Take with food. - montelukast (SINGULAIR) 10 mg tablet Take 1 tablet by mouth daily at bedtime. - gabapentin enacarbil (HORIZANT) 300 mg TbER Take 3 tablets by mouth once daily. Take one tablet at 2pm and two tablets at 5pm - pramipexole (MIRAPEX) 0.125 mg tablet Take 1 tablet at 2 PM, 1 tablet at dinnertime, 2 tablets at 9 pm, and 2 tablets at bedtime - nystatin (MYCOSTATIN) powder Apply 1 application to affected area four times daily. - semaglutide (OZEMPIC) 2 mg/dose (8 mg/3 mL) pen injector Inject 2 mg subcutaneously one time a week. - fluticasone (FLONASE) 50 mcg/actuation nasal spray instill 2 sprays into each nostril once daily - ketoconazole (NIZORAL) 2 % cream Apply to affected area once daily. Used for fungal skin fold rashes - LUMIGAN 0.01 % drop ophthalmic drops instill 1 drop into both eyes at bedtime - fluorometholone (FML LIQUID FILM) 0.1 % ophthalmic suspension instill 1 drop into both eyes twice a day as directed - fluorometholone (FML LIQUID FILM) 0.1 % ophthalmic suspension 1 Drop every 4 hours. - ascorbic acid, vitamin C, (VITAMIN C) 500 mg tablet Take 1 tablet by mouth twice daily with meals for 27 doses. - aspirin, enteric coated (ASPIRIN, ENTERIC COATED) 81 mg EC tablet Take 1 tablet by mouth twice daily for 28 days. - Magnesium Oxide 500 mg tab Take 500 mg by mouth once daily. Taking in gummy form - ubidecarenone (COENZYME Q10) 100 mg tab Take 200 mg by mouth once daily. - simethicone (GAS-X ORAL) Take 125 mg by mouth twice daily. - multivit,thx,calcium, iron,mins (MULTIVITAMIN AND MINERAL ORAL) Take 1 tablet by mouth once daily. - vitamin K2 100 mcg cap Take 100 mcg by mouth. - Zinc 50 mg tab Take 50 mg by mouth. - amLODIPine (NORVASC) 2.5 mg tablet Take 2.5 mg by mouth once daily. - metoprolol tartrate, short acting, (LOPRESSOR) 50 mg tablet Take 50 mg by mouth once daily. - Bifidobacterium infantis (ALIGN ORAL) Take 1 tablet by mouth once daily. - diclofenac sodium (VOLTAREN) 1 % topical gel Apply 2 g to affected area four times daily. - amoxicillin (POLYMOX, AMOXIL) 500 mg capsule Take 500 mg by mouth. Take 4 capsules 1 hour before dental procedures. - ferrous sulfate EC 324 mg (65 mg iron) TbEC Take 324 mg by mouth once daily. Twice a day Problem List As Of Date 11/25/2024 Noted Resolved Class 3 severe obesity due to excess calories w*04/06/2019 Type 2 diabetes mellitus, without long-term cur*04/10/2019 Essential hypertension, benign [I10] 04/10/2019 Mixed hyperlipidemia [E78.2] 04/10/2019 Hypothyroidism [E03.9] 04/10/2019 MICHELLE (iron deficiency anemia) [D50.9] 04/10/2019 Anxiety and depression [F41.9, F32.A] 04/10/2019 Chronic back pain [M54.9, G89.29] 04/10/2019 Primary osteoarthritis involving multiple joint*04/10/2019 GERD (gastroesophageal reflux disease) [K21.9] 04/10/2019 Other irritable bowel syndrome [K58.8] 04/10/2019 OS (more content not included)... Normal [facility] Cardiology Visit Reporton Cardiology Visit Report [facility] [address] [place], [place] [address] OFFICE VISIT Date of Service: 11/22/24 MR#: [id number] Acct: [id number] Name: KEMAL CANTU Rep #: [id number] : 1945 Provider: ZEYNEP cee Age/Sex: 79/F Location: [facility] [place] Status: Signed HPI HPI History of Present Illness Details: Kemal Cantu, is a 79-year-old female who presents here today for a follow-up visit. She does have a history of coronary artery disease. She had a heart catheterization here at [facility] and was noted to have significant calcification of her RCA. Because of this, she was transferred to [facility] for further intervention. She underwent an arthrectomy and stenting to RCA on March 02, 2021. She also has a history of hypertension, hyperlipidemia, left bundle branch block. Her most recent stress test from 11/13/2023 was negative for ischemia, and her echocardiogram at that time demonstrated an ejection fraction of 65%, and stage I diastolic dysfunction. From a cardiac standpoint, the patient is doing well. She denies any palpitations, pressure or heaviness. She states she had one day of chest pain-has not had any other symptoms since. She does acknowledge SOB with climbing stairs-this is nothing new or worsening. She denies Orthopnea, and PND. She does not have bleeding issues; no blood in urine, stool, or nosebleeds. She denies any decrease in energy level, myalgias, or claudication. She does not have edema, or sudden weight gain. She does acknowledge lightheadedness with positional changes, and inner ear issues. She denies dizziness, syncopal or near syncopal episodes, and headaches. 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 Required: No Accompanied by: Self Is patient in pain?: No Allergies tree and shrub pollen Allergy (Severe, Verified 11/22/24 11:42) DIFFICULTY BREATHING bacitracin Allergy (Unknown, Verified 11/22/24 11:42) unknown codeine Allergy (Unknown, Verified 11/22/24 11:42) Unknown house dust mite Allergy (Unknown, Verified 11/22/24 11:42) unknown mold Allergy (Unknown, Verified 11/22/24 11:42) Unknown Sulfa (Sulfonamide Antibiotics) Allergy (Unknown, Verified 11/22/24 11:42) Unknown Medications ???Medication ???Instructions ???Recorded ???Confirmed ???Type Lactobacillus See Rx Instructions .Route .COMPLE X 02/01/21 11/22/24 History acidophilus-Bifidobac .animalis 2.5 billion cell capsule (Daily Probiotic) amoxicillin 500 mg capsule 2,000 mg PO .COMPLEX 02/01/2111/12 History ascorbic acid (vitamin C) 250 mg 250 mg PO DAILY 02/01/21 11/22/24 History tablet atorvastatin 10 mg tablet 10 mg PO QHS 02/01/21 11/22/24 His tory bimatoprost 0.01 % eye drops 1 drp ophthalmic (eye) QPM 1 11/22/24 History (Lumigan) bupropion HCl 150 mg tablet,12 hr 150 mg PO QAM 02/01/21 11/22/24 H istory sustained-release cholecalciferol (vitamin D3) 50 2,000 unit PO DAILY 02/01/2111/22 History mcg (2,000 unit) tablet fluticasone propionate 50 2 spray intranasal DAILY 02/01/21 11/22/24 History mcg/actuation nasal spray,suspension (Allergy Relief (fluticasone)) montelukast 10 mg tablet 10 mg PO QHS 02/01/21 11/22/24 His tory coenzyme Q10 200 mg capsule (Co 200 mg PO DAILY 09/28/21 11/22/24 History Q-10) conjugated estrogens 0.625 mg/gram 0.3125 mg vaginal .COMPLEX 09/2811/22/24 History vaginal cream (Premarin) diclofenac sodium 1 % topical gel 2 g topical 4X/DAY PRN 09/28/21 0 11/22/24 History (Arthritis Pain (diclofenac)) levothyroxine 75 mcg tablet 75 mcg PO DAILY 09/28/21 11/22/24 History kqgrfiuu-qxji-mtaj 8 mg-folic 400 1 tab PO DAILY 09/28/21 11/22/24 History mcg-K 50 mcg-lutein 300 mcg tablet (Centrum Silver Women) simethicone 125 mg chewable tablet 125 mg PO BID-QID PRN 09/28/21 0 11/22/24 History (Gas-X Extra Strength) zinc 50 mg tablet 50 mg PO DAILY 09/28/21 11/22/24 H istory ketoconazole 2 % topical cream 1 applic topical DAILY PRN 2 11/22/24 History valsartan 320 mg tablet 320 mg PO DAILY #90 tabs 06/02/22 11/22/24 Rx inulin 2 gram chewable tablet g PO 10/07/22 11/22/24 History (Fiber Gummies) vitamin K2 100 mcg capsule 100 mcg PO DAILY 10/07/22 11/22/24 History omeprazole 40 mg capsule,delayed 40 mg PO DAILY 04/05/24 11/22/24 H istory release amlodipine 2.5 mg tablet 2.5 mg PO DAILY #90 tabs 04/30/24 11/22/24 Rx aspirin 81 mg tablet,delayed 81 mg PO TROY (more content not included)... [facility] 11-04-2024 [facility] Telephone (INTMWS) KEMAL CANTU ([id number]) 1945 F Date Time Provider Department 11/04/24 HELEN CHAPA INTWS During your visit today, we recorded the following information about you: Noris Wren LPN 11/04/2024 2:06 PM Signed Kristin ratliff'd this was completed electronically. Noris Wren LPN 11/04/2024 2:08 PM Signed Prior Authorization History semaglutide (OZEMPIC) 2 mg/dose (8 mg/3 mL) pen injector Approval Details Authorized from October 05, 2024 to November 04, 2025 Information received electronically from payer Pharmacy notified. Allergies As of Date: 11/04/2024 Noted Allergy Reaction BACITRACIN (BULK) 02/07/2019 4 - Hives CODEINE 02/07/2019 16 - Unknown DUST MITES 01/23/2020 14 - Other: See Comments GENTAMICIN 11/30/2021 7 - Swelling Comments: redness of eye watery and itching MOLD 01/23/2020 16 - Unknown SULFA (SULFONAMIDE ANTIBIOTICS) 02/07/2019 14 - Other: See Comments Comments: redness SULFABENZAMIDE 11/30/2021 4 - Hives TREE POLLEN-RED MAPLE 02/16/2021 12 - Shortness of Breath Date Reviewed: 10/28/2024 Reviewed by: Radha High RD - Fully Assessed Reason for Visit: Insurance Authorization [[id number]] Prescriptions as of 11/04/2024 - buPROPion SR (WELLBUTRIN SR) 150 mg 12 hr tablet Take 1 tablet by mouth once daily. - conjugated estrogens (PREMARIN) vaginal cream Use 0.5 g vaginally two times a week. - levothyroxine (SYNTHROID) 75 mcg tablet take 1 tablet by mouth once daily ON AN EMPTY STOMACH - valsartan (DIOVAN) 320 mg tablet Take 1 tablet by mouth once daily. - naproxen (NAPROSYN) 500 mg tablet Take 1 tablet by mouth two times a day as needed. Take with food. - montelukast (SINGULAIR) 10 mg tablet Take 1 tablet by mouth daily at bedtime. - gabapentin enacarbil (HORIZANT) 300 mg TbER Take 3 tablets by mouth once daily. Take one tablet at 2pm and two tablets at 5pm - pramipexole (MIRAPEX) 0.125 mg tablet Take 1 tablet at 2 PM, 1 tablet at dinnertime, 2 tablets at 9 pm, and 2 tablets at bedtime - nystatin (MYCOSTATIN) powder Apply 1 application to affected area four times daily. - semaglutide (OZEMPIC) 2 mg/dose (8 mg/3 mL) pen injector Inject 2 mg subcutaneously one time a week. - fluticasone (FLONASE) 50 mcg/actuation nasal spray instill 2 sprays into each nostril once daily - ketoconazole (NIZORAL) 2 % cream Apply to affected area once daily. Used for fungal skin fold rashes - LUMIGAN 0.01 % drop ophthalmic drops instill 1 drop into both eyes at bedtime - omeprazole (PRILOSEC) 40 mg capsule Take 1 capsule by mouth two times a day. - atorvastatin (LIPITOR) 10 mg tablet take 1 tablet by mouth once daily - fluorometholone (FML LIQUID FILM) 0.1 % ophthalmic suspension instill 1 drop into both eyes twice a day as directed - fluorometholone (FML LIQUID FILM) 0.1 % ophthalmic suspension 1 Drop every 4 hours. - ascorbic acid, vitamin C, (VITAMIN C) 500 mg tablet Take 1 tablet by mouth twice daily with meals for 27 doses. - aspirin, enteric coated (ASPIRIN, ENTERIC COATED) 81 mg EC tablet Take 1 tablet by mouth twice daily for 28 days. - Magnesium Oxide 500 mg tab Take 500 mg by mouth once daily. Taking in gummy form - ubidecarenone (COENZYME Q10) 100 mg tab Take 200 mg by mouth once daily. - simethicone (GAS-X ORAL) Take 125 mg by mouth twice daily. - multivit,thx,calcium, iron,mins (MULTIVITAMIN AND MINERAL ORAL) Take 1 tablet by mouth once daily. - vitamin K2 100 mcg cap Take 100 mcg by mouth. - Zinc 50 mg tab Take 50 mg by mouth. - amLODIPine (NORVASC) 2.5 mg tablet Take 2.5 mg by mouth once daily. - metoprolol tartrate, short acting, (LOPRESSOR) 50 mg tablet Take 50 mg by mouth once daily. - Bifidobacterium infantis (ALIGN ORAL) Take 1 tablet by mouth once daily. - diclofenac sodium (VOLTAREN) 1 % topical gel Apply 2 g to affected area four times daily. - amoxicillin (POLYMOX, AMOXIL) 500 mg capsule Take 500 mg by mouth. Take 4 capsules 1 hour before dental procedures. - ferrous sulfate EC 324 mg (65 mg iron) TbEC Take 324 mg by mouth once daily. Twice a day Problem List As Of Date 11/04/2024 Noted Resolved Class 3 severe obesity due to excess calories w*04/06/2019 Type 2 diabetes mellitus, without long-term cur*04/10/2019 Essential hypertension, benign [I10] 04/10/2019 Mixed hyperlipidemia [E78.2] 04/10/2019 Hypothyroidism [E03.9] 04/10/2019 MICHELLE (iron deficiency anemia) [D50.9] 04/10/2019 Anxiety and depression [F41.9, F32.A] 04/10/2019 Chronic back pain [M54.9, G89.29] 04/10/2019 Primary osteoarthritis involving multiple joint*04/10/2019 GERD (gastroesophageal reflux disease) [K21.9] 04/10/2019 Other irritable bowel syndrome [K58.8] 04/10/2019 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 [G47.33] 04/10/2019 09/01/2023 Chronic headache [R51.9, G89.29] 04/10/2019 RLS (restless legs syndrome) [G25.81] 04/10/2019 Fi (more content not included)... Normal [facility] CNOVon 10-14-2024 CNOV Office Visit (UCWSTR ) KEMAL CANTU ([id number]) 1945 F Date Time Provider Department 10/14/24 11:15 AM GEORGETTE BAUTISTA [facility] During your visit today, we recorded the following information about you: Temperature Pulse Respiration Blood pressure 97.5 degrees 68/minute 18/minute 158/84 Weight 125.7 kg eGorgette Bautista APRN.MICROGRINDER OPERATOR 10/14/2024 11:14 AM Signed Subjective HPI HPI Kemal Cantu is a 79 year old female who presents today for CC of cough, congestion, fever. This started 6 days ago/worsening. Has tried otc medication. Symptoms are worsened by nothing. Risk factors. .Patient presents with: Cough: Cough and congestion x 6 days PAST MEDICAL HISTORY Diagnosis Date Diabetes mellitus (HCC) Fibromyalgia Fuchs' corneal dystrophy Gastroesophageal reflux disease Glaucoma HTN (hypertension) Hypothyroidism Irritable bowel syndrome Migraines MAURICE (obstructive sleep apnea) does not use c-pap Osteoarthritis Plantar fasciitis PONV (postoperative nausea and vomiting) Pseudophakia PTSD (post-traumatic stress disorder) Restless leg syndrome Sleep apnea in adult TMJ (dislocation of temporomandibular joint) PAST SURGICAL HISTORY Procedure Laterality Date CATARACT EXTRACTION W/ INTRAOCULAR LENS IMPLANT HX Bilateral 2017 COLONOSCOPY FLX DX W/COLLJ SPEC WHEN PFRMD 06/21/2021 CORNEAL TISSUE DSAEK/DMEK Left 09/30/2019 Dr. Clark ENDOTHELIAL KERATOPLASTY(DMEK) Right 04/17/2019 ENDOTHELIAL KERATOPLASTY/DSAEK Right 03/18/2019 ESOPHAGOGASTRODUODENO SCOPY TRANSORAL DIAGNOSTIC 06/21/2021 PAST SURGICAL HISTORY OF 1972 parathyroid adenoma surgery PAST SURGICAL HISTORY OF 1988 hysterectomy with prolapsed bladder repair PAST SURGICAL HISTORY OF 1992 abdominoplasty PAST SURGICAL HISTORY OF 1993 breast reduction PAST SURGICAL HISTORY OF 1979 deviated septum repair PAST SURGICAL HISTORY OF 1965 DANDC after miscarriage PAST SURGICAL HISTORY OF 2013 Total right knee repalcement PAST SURGICAL HISTORY OF 11/2013 total left knee replacement PAST SURGICAL HISTORY OF 2015 rectocele repair with vaginal mesh PAST SURGICAL HISTORY OF 11/01/2015 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 PAST SURGICAL HISTORY OF 2018 DMEK Corneal Transplant-Right eye PAST SURGICAL HISTORY OF Left 10/10/2019 INJECTION, ANTERIOR CHAMBER OF EYE; AIR PAST SURGICAL HISTORY OF Right 1996 cyst removal off right 4 toe PAST SURGICAL HISTORY OF hammer toe surgery PAST SURGICAL HISTORY OF 04/2022 Prolasped vagina PRQ CARDIAC STENT W/ANGIO 1 VSL 03/02/2021 90% blockage RCA SKIN LESION BIOPSY 10/2015 x2 face TOTAL HIP REPLACEMENT Right 03/15/2023 Right Total hip replacement YAG CAPSULOTOMY OD (RIGHT EYE) 2018 YAG CAPSULOTOMY OS (LEFT EYE) 2018 ALLERGIES Bacitracin (Bulk), Codeine, Dust Mites, Gentamicin, Mold, Sulfa (Sulfonamide Antibiotics), Sulfabenzamide, and Tree Pollen-Red Maple MEDICATIONS buPROPion SR (WELLBUTRIN SR) 150 mg 12 hr tablet Take 1 tablet by mouth once daily. conjugated estrogens (PREMARIN) vaginal cream Use 0.5 g vaginally two times a week. levothyroxine (SYNTHROID) 75 mcg tablet take 1 tablet by mouth once daily ON AN EMPTY STOMACH valsartan (DIOVAN) 320 mg tablet Take 1 tablet by mouth once daily. naproxen (NAPROSYN) 500 mg tablet Take 1 tablet by mouth two times a day as needed. Take with food. montelukast (SINGULAIR) 10 mg tablet Take 1 tablet by mouth daily at bedtime. gabapentin enacarbil (HORIZANT) 300 mg TbER Take 3 tablets by mouth once daily. Take one tablet at 2pm and two tablets at 5pm pramipexole (MIRAPEX) 0.125 mg tablet Take 1 tablet at 2 PM, 1 tablet at dinnertime, 2 tablets at 9 pm, and 2 tablets at bedtime nystatin (MYCOSTATIN) powder Apply 1 application to affected area four times daily. semaglutide (OZEMPIC) 2 mg/dose (8 mg/3 mL) pen injector Inject 2 mg subcutaneously one time a week. fluticasone (FLONASE) 50 mcg/actuation nasal spray instill 2 sprays into each nostril once daily ketoconazole (NIZORAL) 2 % cream Apply to affected area once daily. Used for fungal skin fold rashes LUMIGAN 0.01 % drop ophthalmic drops instill 1 drop into both eyes at bedtime omeprazole (PRILOSEC) 40 mg capsule Take 1 capsule by mouth two times a day. atorvastatin (LIPITOR) 10 mg tablet take 1 tablet by mouth once daily fluorometholone (FML LIQUID FILM) 0.1 % ophthalmic suspension instill 1 drop into both eyes twice a day as directed fluorometholone (FML LIQUID FILM) 0.1 % ophthalmic suspension 1 Drop every 4 hours. ascorbic acid, vitamin C, (VITAMIN C) 500 mg tablet Take 1 tablet by mouth twice daily with meals for 27 doses. aspirin, enteric coated (ASPIRIN, ENTERIC COATED) 81 mg EC tablet Take 1 tablet by mouth twice daily for 28 days. Magnesium Oxide 500 mg tab Take 500 mg by mouth once daily. Taking in gummy form ubidecarenone (COENZYME Q10) 1 (more content not included)... Normal [facility] CNOVon 08-26-2024 CNOV Office Visit (INTMWS ) KEMAL CANTU ([id number]) 1945 F Date Time Provider Department 08/26/24 2:20 PM OLDER, ЕКАТЕРИНА INTMWS During your visit today, we recorded the following information about you: Pulse Respiration Blood pressure Weight 76/minute 16/minute 142/80 124.7 kg Екатерина Escalante APRN.CNP 08/26/2024 3:49 PM Signed CC: Patient presents with: Recheck: 6 month follow up HPI Kemal Cantu is a 78 year old female who presents today for routine follow up. DIABETES MELLITUS: Ms. Cantu denies excessive thirst or increased frequency of urination, chest pain or dyspnea , numbness, tingling or pain in extremities, new or unusual visual symptoms, low sugar/hypoglycemic reactions, weight loss/gain, lightheadedness/dizzi ness, and bowel changes/loose stools. Follows a diabetic diet most of the time when it isn't the holiday season. She is compliant with medication(s) and is tolerating med(s) without any side effects. She reports checking her glucose on a infrequent to not at all basis schedule . Patient's last HgA1C was Hemoglobin A1C (%) Date Value 08/20/2024 5.2 02/13/2024 5.5 08/18/2021 6.6 05/18/2021 6.1 ) Last Ophthalmology exam was within the past 12 months HTN and HLD: Ms. Cantu denies headache, chest pain, palpitations, dyspnea, and peripheral edema. Patient denies any side effects of her medication(s) and is compliant with their regimen. She does not check BP's generally. Kemal denies regular aerobic exercise. She watches her diet for sodium, low fat and low cholesterol some of the time. Last 3 Encounter BP Readings: Date: BP: 08/26/2024 142/80 06/21/2024 138/76 02/21/2024 140/74 Levothyroxine: Taking medication as ordered. Denies abnormal change in energy or weight. Also concerned with right shoulder pain for the last month. Started after crocheting for almost 48 hours straight and is right handed. Is having difficulty extending above the shoulder line due to the pain. Pain in the shoulder is an ache and then turns sharp with extending her arm. The ache can radiate all the way into her wrist. Has been using diclofenac gel since the start which helps but has not gone away. Has taking the occasional advil which will resolve the pain for a few hours. Denies any traumatic injury, edema, redness, fever, numbness, or weakness. Also for the last week has had a right ear ache, sore throat, yellow with some red or black tinged nasal drainage, nonproductive cough, fatigue, low grade fever yesterday, diarrhea, headaches, Had amoxicillin for infected tooth which seemed to improve everything but now getting worse over the last few days. Denies chest pain, wheezing, shortness of breath, syncope, weakness, edema, or palpations. REVIEW OF SYSTEMS See HPI PAST MEDICAL HISTORY Diagnosis Date Diabetes mellitus (HCC) Fibromyalgia Fuchs' corneal dystrophy Gastroesophageal reflux disease Glaucoma HTN (hypertension) Hypothyroidism Irritable bowel syndrome Migraines MAURICE (obstructive sleep apnea) does not use c-pap Osteoarthritis Plantar fasciitis PONV (postoperative nausea and vomiting) Pseudophakia PTSD (post-traumatic stress disorder) Restless leg syndrome Sleep apnea in adult TMJ (dislocation of temporomandibular joint) PAST SURGICAL HISTORY Procedure Laterality Date CATARACT EXTRACTION W/ INTRAOCULAR LENS IMPLANT HX Bilateral 2016 COLONOSCOPY FLX DX W/COLLJ SPEC WHEN PFRMD 06/21/2021 CORNEAL TISSUE DSAEK/DMEK Left 09/30/2019 Dr. Clark ENDOTHELIAL KERATOPLASTY(DMEK) Right 04/17/2019 ENDOTHELIAL KERATOPLASTY/DSAEK Right 03/18/2019 ESOPHAGOGASTRODUODENO SCOPY TRANSORAL DIAGNOSTIC 06/21/2021 PAST SURGICAL HISTORY OF 1972 parathyroid adenoma surgery PAST SURGICAL HISTORY OF 1988 hysterectomy with prolapsed bladder repair PAST SURGICAL HISTORY OF 1992 abdominoplasty PAST SURGICAL HISTORY OF 1993 breast reduction PAST SURGICAL HISTORY OF 1979 deviated septum repair PAST SURGICAL HISTORY OF 1965 DANDC after miscarriage PAST SURGICAL HISTORY OF 2013 Total right knee repalcement PAST SURGICAL HISTORY OF 11/2013 total left knee replacement PAST SURGICAL HISTORY OF 2015 rectocele repair with vaginal mesh PAST SURGICAL HISTORY OF 11/01/2015 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 Normal [facility] 25(OH)D3 SerPl-mCncon 2024 25-hydroxyvitamin D3 [Mass/Vol] 53.2 ng/mL Normal 31.0-80.0 [facility] Comment on above: Order Comment: Speci men Type: BLOOD SPECIMENOrdering Facility: [facility] Address: [address] [place] [address] Performed By: #### 1 989-3 ####[facility] LABIA [id number] [place] [address] [place] CBC panel Auto (Bld)on 08-20 Erythrocyte distribution width (RBC) [Ratio] 13.5 % Normal 11.5-15.0 [facility] Comment on above: Order Comment: Speci men Type: BLOOD SPECIMENOrdering Facility: [facility] Address: [address] [place] [address] Performed By: #### 5 8410-2 ####[facility] LABIA [id number] [place] [address] [place] Hematocrit (Bld) [Volume fraction] 43.3 % Normal 36.0-46.0 [facility] Comment on above: Order Comment: Speci men Type: BLOOD SPECIMENOrdering Facility: [facility] Address: [address] [place] [address] Performed By: #### 5 8410-2 ####[facility] LABIA [id number] [place] [id number] [place] Hemoglobin (Bld) [Mass/Vol] 14.0 g/dL Normal 11.5-15.5 [facility] Comment on above: Order Comment: Speci men Type: BLOOD SPECIMENOrdering Facility: [facility] Address: [address] [place] [address] Performed By: #### 5 8410-2 ####[facility] LABCLIA [id number] [place] [address] [place] MCH (RBC) [Entitic mass] 29.7 pg Normal 26.0-34.0 [facility] Comment on above: Order Comment: Speci men Type: BLOOD SPECIMENOrdering Facility: [facility] Address: [address] [place] [address] Performed By: #### 5 8410-2 ####[facility] LABIA [id number] [place] [address] [place] MCHC (RBC) [Mass/Vol] 32.3 g/dL Normal 30.5-36.0 [facility] Comment on above: Order Comment: Speci men Type: BLOOD SPECIMENOrdering Facility: [facility] Address: [address] [place] [address] Performed By: #### 5 8410-2 ####[facility] [id number] [place] [address] [place] MCV (RBC) [Entitic vol] 91.7 fL Normal 80.0-100.0 C [facility] Comment on above: Order Comment: Speci men Type: BLOOD SPECIMENOrdering Facility: [facility] Address: [address] [place] [address] Performed By: #### 5 8410-2 ####[facility] [id number] [place] [address] [place] Nucleated RBC (Bld) [#/Vol] 10*3/uL Normal <0.01 [facility] Comment on above: Order Comment: Speci men Type: BLOOD SPECIMENOrdering Facility: [facility] Address: [address] [place] [address] Performed By: #### 5 8410-2 ####[facility] LABIA [id number] [place] [address] [place] Platelet mean volume (Bld) [Entitic vol] 9.6 fL Normal 9.0-12.7 [facility] Comment on above: Order Comment: Speci men Type: BLOOD SPECIMENOrdering Facility: [facility] Address: [address] [place] [address] Performed By: #### 5 8410-2 ####[facility] LABCLIA [id number] [place] [address] [place] Platelets (Bld) [#/Vol] 215 10*3/uL Normal 150-400 [facility] Comment on above: Order Comment: Speci men Type: BLOOD SPECIMENOrdering Facility: [facility] Address: [address] [place] [address] Performed By: #### 5 8410-2 ####[facility] LABCLIA [id number] [place] [address] [place] RBC (Bld) [#/Vol] 4.72 10*6/uL Normal 3.90-5.20 [facility] Comment on above: Order Comment: Speci men Type: BLOOD SPECIMENOrdering Facility: [facility] Address: [address] [place] [address] Performed By: #### 5 8410-2 ####[facility] LABCLIA [id number] [place] [address] [place] WBC (Bld) [#/Vol] 3.72 10*3/uL Normal 3.70-11.00 [facility] Comment on above: Order Comment: Speci men Type: BLOOD SPECIMENOrdering Facility: [facility] Address: [address] [place] [address] Performed By: #### 5 8410-2 ####[facility] LABCLIA [id number] [place] [address] [place] Comprehensive metabolic 2000 panelon 08-20-2024 Albumin [Mass/Vol] 4.0 g/dL Normal 3.9-4.9 [facility] Comment on above: Order Comment: Speci men Type: BLOOD SPECIMENOrdering Facility: [facility] Address: [address] [place] [address] Performed By: #### 2 4331-1, 58716-6, 3016-3, 21122-8 ####[facility] LABCLIA [id number] [place] [address] [place] ALP [Catalytic activity/Vol] 92 U/L Normal 34-123 [facility] Comment on above: Order Comment: Speci men Type: BLOOD SPECIMENOrdering Facility: [facility] Address: [address] [place] [address] Performed By: #### 2 4331-1, 51590-4, 3016-3, 06754-8 ####[facility] LABCLIA [id number] [place] [address] [place] ALT [Catalytic activity/Vol] 23 U/L Normal 7-38 [facility] Comment on above: Order Comment: Speci men Type: BLOOD SPECIMENOrdering Facility: [facility] Address: [address] [place] [address] Performed By: #### 2 4331-1, 98788-2, 3015-3, 40961-6 ####[facility] LABIA [id number] [place] [address] [place] Anion gap [Moles/Vol] 11 mmol/L Normal 8-15 [facility] Comment on above: Order Comment: Speci men Type: BLOOD SPECIMENOrdering Facility: [facility] Address: [address] [place] [address] Performed By: #### 2 4331-1, 84122-1, 3015-3, 74174-4 ####[facility] LABIA [id number] [place] [address] [place] AST [Catalytic activity/Vol] 20 U/L Normal 13-35 [facility] Comment on above: Order Comment: Speci men Type: BLOOD SPECIMENOrdering Facility: [facility] Address: [address] [place], [place] [address] Performed By: #### 2 4331-1, 84854-0, 3015-3, 42587-2 ####[facility] LABCLIA [id number] [address] [address] [place] Bilirubin [Mass/Vol] 0.5 mg/dL Normal 0.2-1.3 [facility] Comment on above: Order Comment: Speci men Type: BLOOD SPECIMENOrdering Facility: [facility] Address: [address] [place], [place] [address] Performed By: #### 2 4331-1, 03846-1, 3015-3, 45871-4 ####[facility] LABCLIA [id number] [place] [address] [place] Calcium [Mass/Vol] 9.7 mg/dL Normal 8.5-10.2 [facility] Comment on above: Order Comment: Speci men Type: BLOOD SPECIMENOrdering Facility: [facility] Address: [address] [place], [place] [address] Performed By: #### 2 4331-1, 72518-9, 3015-3, 06419-2 ####[facility] LABCLIA [id number] [place] [address] [place] Chloride [Moles/Vol] 102 mmol/L Normal 98-107 [facility] Comment on above: Order Comment: Speci men Type: BLOOD SPECIMENOrdering Facility: [facility] Address: [address] [place] [address] Performed By: #### 2 4331-1, 86042-4, 301-3, 59594-0 ####[facility] LABCLIA [id number] [place] [id number] [place] CO2 [Moles/Vol] 28 mmol/L Normal 22-30 [facility] Comment on above: Order Comment: Speci men Type: BLOOD SPECIMENOrdering Facility: [facility] Address: [address] [place] [id number] Performed By: #### 2 4331-1, 82415-5, 6-3, 50774-5 ####[facility] LABIA [id number] [address] [address] [place] Creatinine [Mass/Vol] 0.90 mg/dL Normal 0.58-0.96 [facility] Comment on above: Order Comment: Speci men Type: BLOOD SPECIMENOrdering Facility: [facility] Address: [address] [place] [address] Performed By: #### 2 4331-1, 58205-1, 3015-3, 56497-9 ####[facility] [id number] [place] [address] [place] Creatinine and Glomerular filtration rate.predicted panel (S/P/Bld) 66 mL/min/1.73m??? Normal >=60 [facility] Comment on above: Order Comment: Speci men Type: BLOOD SPECIMENOrdering Facility: [facility] Address: [address] [place] [address] Result Comment: Marli mated Glomerular Filtration Rate (eGFR) is calculated using the 2020 CKD-EPI creatinine equation. This equation utilizes serum creatinine, sex, and age as parameters. The creatinine assay has traceable calibration to isotope dilution-mass spectrometry. Refer to KDIGO guidelines for clinical interpretation. In patients with unstable renal function, e.g. those with acute kidney injury, the eGFR may not accurately reflect actual GFR. Performed By: #### 2 4331-1, 09520-8, 3015-3, 07012-5 ####[facility] LABIA [id number] [place] [id number] [place] Glucose [Mass/Vol] 117 mg/dL High 74-99 [facility] Comment on above: Order Comment: Speci men Type: BLOOD SPECIMENOrdering Facility: [facility] Address: [address] [place] [address] Result Comment: The British Diabetes Association (ADA) provides guidance for cutoff values for fasting glucose and random glucose. The ADA defines fasting as no caloric intake for at least 8 hours. Fasting plasma glucose results between 100 to 125 mg/dL indicate increased risk for diabetes (prediabetes). Fasting plasma glucose results greater than or equal to 126 mg/dL meet the criteria for diagnosis of diabetes. In the absence of unequivocal hyperglycemia, results should be confirmed by repeat testing. In a patient with classic symptoms of hyperglycemia or hyperglycemic crisis, random plasma glucose results greater than or equal to 200 mg/dL meet the criteria for diagnosis of diabetes. Reference: Standards of Medical Care in Diabetes 2016, British Diabetes Association. Diabetes Care. 2016.39(Suppl 1). Performed By: #### 2 4331-1, 03086-6, 3015-3, 68749-8 ####[facility] LABCLIA [id number] [place] [address] [place] Potassium [Moles/Vol] 4.6 mmol/L Normal 3.7-5.1 [facility] Comment on above: Order Comment: Speci men Type: BLOOD SPECIMENOrdering Facility: [facility] Address: [address] [place] [address] Performed By: #### 2 4331-1, 32686-8, 3, 23160-7 ####[facility] LABCLIA [id number] [place] [address] [place] Protein [Mass/Vol] 6.6 g/dL Normal 6.3-8.0 [facility] Comment on above: Order Comment: Speci men Type: BLOOD SPECIMENOrdering Facility: [facility] Address: [address] [place] [address] Performed By: #### 2 4331-1, 14621-2, 3, 92249-1 ####[facility] LABCLIA [id number] [place] [address] [place] Sodium [Moles/Vol] 141 mmol/L Normal 136-144 [facility] Comment on above: Order Comment: Speci men Type: BLOOD SPECIMENOrdering Facility: [facility] Address: [address] [place] [address] Performed By: #### 2 4331-1, 32934-6, 3016-3, 48536-4 ####[facility] LABCLIA [id number] [place] [address] [place] Urea nitrogen [Mass/Vol] 13 mg/dL Normal 7-21 [facility] Comment on above: Order Comment: Speci men Type: BLOOD SPECIMENOrdering Facility: [facility] Address: [address] [place] [address] Performed By: #### 2 4331-1, 24358-0, 3016-3, 29292-7 ####[facility] LABCLIA [id number] [place] [address] [place] Ferritin SerPl-mCncon 2024 Ferritin [Mass/Vol] 51.2 ng/mL Normal 14.7-205.1 [facility] Comment on above: Order Comment: Speci men Type: BLOOD SPECIMENOrdering Facility: [facility] Address: [address] [place] [address] Performed By: #### 2 276-4 ####[facility] LABIA [id number] [place] [address] [place] HbA1c (Bld)on 08-20-2024 Average glucose Estimated from glycated hemoglobin (Bld) [Mass/Vol] 103 mg/dL Normal [facility] Comment on above: Order Comment: Speci men Type: BLOOD SPECIMENOrdering Facility: [facility] Address: [address] [place] [address] Result Comment: eAG: (Estimated average glucose) is a calculated value from HgbA1c and is accounts payable representative of the average blood glucose level in the last 2-3 month period. Performed By: #### 5 5454-3 ####[facility] LABCLIA [id number] [place] [address] [place] HbA1c (Bld) [Mass fraction] 5.2 % Normal 4.3-5.6 [facility] Comment on above: Order Comment: Speci men Type: BLOOD SPECIMENOrdering Facility: [facility] Address: [address] [place] [address] Result Comment: [place] Diabetes Association guidelines indicate that patients with HgbA1c in the range 5.7-6.4% are at increased risk for development of diabetes, and intervention by lifestyle modification may be beneficial. HgbA1c greater or equal to 6.5% is considered diagnostic of diabetes. Performed By: #### 5 5454-3 ####[facility] LABIA [id number] [place] [address] [place] Iron and Iron binding capaci ty panelon 08-20-2024 Iron [Mass/Vol] 70 ug/dL Normal 41-186 [facility] Comment on above: Order Comment: Georgei men Type: BLOOD SPECIMENOrdering Facility: [facility] Address: [address] [place] [address] Performed By: #### 2 4331-1, 35872-7, 3016-3, 50528-8 ####[facility] LABIA [id number] [place] [id number] [place] Iron binding capacity [Mass/Vol] 346 ug/dL Normal 232-386 [facility] Comment on above: Order Comment: Speci men Type: BLOOD SPECIMENOrdering Facility: [facility] Address: [address] [place] [address] Performed By: #### 2 4331-1, 06323-3, 3016-3, 02840-0 ####[facility] LABIA [id number] [place] [id number] [place] Iron/TIBC [Molar ratio] 20.2 % Normal 15.0-57.0 [facility] Comment on above: Order Comment: Speci men Type: BLOOD SPECIMENOrdering Facility: [facility] Address: [address] [place] [address] Performed By: #### 2 4331-1, 49960-3, 3015-3, 65814-5 ####[facility] LABCLIA [id number] [place] [address] [place] Lipid 1996 panelon 5 Cholesterol [Mass/Vol] 172 mg/dL Normal <200 [facility] Comment on above: Order Comment: Speci men Type: BLOOD SPECIMENOrdering Facility: [facility] Address: [address] [place] [address] Result Comment: <200 mg/dL, Desirable 200-239 mg/dL, Borderline high >239 mg/dL, High Performed By: #### 2 4331-1, 31459-2, 3015-3, 62586-9 ####[facility] LABCLIA [id number] [address] [place] Cholesterol in HDL [Mass/Vol] 58 mg/dL Normal >39 [facility] Comment on above: Order Comment: Margie men Type: BLOOD SPECIMENOrdering Facility: [facility] Address: [address] [place] [address] Result Comment: 40-5 9 mg/dL, Acceptable >59 mg/dL, High: Negative risk factor for coronary heart disease <40 mg/dL, Low: Positive risk factor for coronary heart disease Performed By: #### 2 4331-1, 08654-3, 3015-3, 31072-7 ####[facility] LABCLIA [id number] [address] [place] Cholesterol in LDL [Mass/Vol] 98 mg/dL Normal <100 [facility] Comment on above: Order Comment: Speci men Type: BLOOD SPECIMENOrdering Facility: [facility] Address: [address] [place] [address] Result Comment: <100 mg/dL, Optimal 100-129 mg/dL, Near optimal/above optimal 130-159 mg/dL, Borderline high 160-189 mg/dL, High >189 mg/dL, Very high Secondary prevention optimal LDL Cholesterol levels are recommended to be < 70 mg/dL Performed By: #### 2 4331-1, 30082-4, 3016-3, 86185-1 ####[facility] LABIA [id number] [place] [id number] [place] Cholesterol in LDL/Cholesterol in HDL [Mass ratio] 1.69 {ratio} Normal <2.54 [facility] Comment on above: Order Comment: Speci men Type: BLOOD SPECIMENOrdering Facility: [facility] Address: [address] [place] [address] Result Comment: Refe rence: 1. National Cholesterol Education Program ATP III Guideline At-A-Glance Quick Desk Reference: National Heart, Lung, and Blood Chase. National Institutes of Health. 2001: NIH Publication No. 01-3305. 2. An International Atherosclerosis Society position paper: global recommendations for the management of dyslipidemia: executive summary, Atherosclerosis. 2014: 232(2):410-413. Performed By: #### 2 4331-1, 31173-3, 3016-3, 86326-6 ####[facility] LABIA [id number] [place] [id number] [place] Cholesterol in VLDL [Mass/Vol] 16 mg/dL Normal <30 [facility] Comment on above: Order Comment: Speci men Type: BLOOD SPECIMENOrdering Facility: [facility] Address: [address] [place] [address] Performed By: #### 2 4331-1, 29904-3, 3016-3, 34371-5 ####[facility] LABIA [id number] [address] [address] [place] Cholesterol non HDL [Mass/Vol] 114 mg/dL Normal <130 [facility] Comment on above: Order Comment: Speci men Type: BLOOD SPECIMENOrdering Facility: [facility] Address: [address] [place] [address] Result Comment: <130 mg/dL, Optimal 130-159 mg/dL, Near optimal/above optimal 160-189 mg/dL, Borderline high 190-219 mg/dL, High >219 mg/dL, Very high Secondary prevention optimal non HDL Cholesterol levels are recommended to be <100 mg/dL Performed By: #### 2 4331-1, 45095-4, 3015-3, 59844-6 ####[facility] LABCLIA [id number] [address] [address] [place] Cholesterol.total/Anna sterol in HDL [Mass ratio] 2.97 {ratio} Normal <5.10 [facility] Comment on above: Order Comment: Speci men Type: BLOOD SPECIMENOrdering Facility: [facility] Address: [address] [place] [address] Performed By: #### 2 4331-1, 97795-3, 3015-10, ####[facility] LABCLIA [id number] [place] [address] [place] FASTING TIME 12 hrs Normal [facility] Comment on above: Order Comment: Speci men Type: BLOOD SPECIMENOrdering Facility: [facility] Address: [address] [place] [address] Performed By: #### 2 4331-1, 28970-7, 3015-10, ####[facility] LABCLIA [id number] [address] [address] [place] Triglyceride [Mass/Vol] 80 mg/dL Normal <150 [facility] Comment on above: Order Comment: Speci men Type: BLOOD SPECIMENOrdering Facility: [facility] Address: [address] [place], [place] [address] Result Comment: <150 mg/dL, Normal 150-199 mg/dL, Borderline high 200-499 mg/dL, High >499 mg/dL, Very high Performed By: #### 2 4331-1, 56825-6, 3, ####[facility] LABCLIA [id number] [address] [address] [place] TSH SerPl-aCncon 08-20-2024 TSH Qn 3.510 m[IU]/L Normal 0.270-4.200 [facility] Comment on above: Order Comment: Speci men Type: BLOOD SPECIMENOrdering Facility: [facility] Address: [address] [place] [address] Performed By: #### 2 4331-1, 64239-8, 3016-3, 00280-3 ####[facility] LABCLIA [id number] [id number] [id number] [facility] CNOVon 06-21-2024 CNOV Office Visit (SLEWST ) KEMAL CANTU ([id number]) 1945 F Date Time Provider Department 06/21/24 10:00 AM ALTAGRACIA CONSTANTINO During your visit today, we recorded the following information about you: Pulse Respiration Blood pressure Weight 64/minute 16/minute 138/76 124.3 kg Altagracia Constantino APRN.CNP 06/21/2024 12:43 PM Signed [facility] Follow up/ Established patient visit Date of last visit : 12/18/2023 The following Impression/Plan was copied and pasted from the patient's last [facility] visit on 12/18/23: ASSESSMENT/PLAN: 1. RLS (restless legs syndrome) - ICD9: 333.94, ICD10: G25.81 (primary diagnosis) 2. Iron deficiency - ICD9: 280.9, ICD10: E61.1 3. Vitamin D deficiency - ICD9: 268.9, ICD10: E55.9 Patient symptoms of RLS stable. However, besides taking Horizant twice daily (300-600mg as above), patient also taking Mirapex 0.125mg up to 6x daily. No s/s of augmentation or side effects. However, d/w patient that given manner in which taking Mirapex, she may better be treated by taking Mirapex ER at an equivalent dose of current IR dosing for the day, to be taken at the same time as taking first dose of Horizant. This might also reduce the risk of augmentation. Pt will consider but does not want to change dosing today. Will discuss again at next visit. 4. MAURICE (obstructive sleep apnea) - ICD9: 327.23, ICD10: G47.33 5. Class 3 severe obesity with body mass index (BMI) of 40.0 to 44.9 in adult, unspecified obesity type, unspecified whether serious comorbidity present (HCC) - ICD9: 278.01, V85.41, ICD10: E66.01, Z68.41 Known history of MAURICE, but pt declining any form of therapy. Encouraged weight loss. Encouraged patient to sleep on side. No s/s of tiredness/sleepiness during the day. Hollie Blevins MD Here for follow up for RLS, it is very calm with current medication regimen, says it's the calmest it's ever been in her life, only rarely has to walk due to RLS sxs (maybe every 6 wks) after her last dose of pramipexole But she doesn't go to the movies due to RLS Having increased left hip pain, that affects sleep RLS Horizant 300 mg -- 1 tab at 2 PM and 2 tabs at 5 PM. Last filled 05/16/24 #90. Pramipexole 0.125 mg -- 6 tabs daily -- 1 tab at 2 PM, 1 at dinner, 2 at 9 pm, and 2 at HS, excellent control with this regimen, sxs begin 3 PM so she starts med before sxs begin No adverse effects from her meds, no augmentation Dr Blevins has discussed switching to long-acting pramipexole but she still prefers not to Takes iron supplement BID Takes vitamin D daily (had a break from it in the Fall of 2022 since it was high) Labs need to be updated (05/15/23 ferritin 54, iron 57, transferrin saturation 17, vit D 89) Previously tried gabapentin which wasn't effective SLEEP APNEA MAURCIE, declines therapy other than she sleeps inclined, no PAP hx SLEEP HYGIENE QUESTIONS: Bedtime : 11 pm - MN, can be later if fell asleep on couch watching TV earlier Wake up Time : early, often 6 am Time it takes to fall sleep : quick Number of times patient wakes up per night : 3-4 Reason (s) why patient wakes up during the night : urination Estimated total sleep time ( in a 24 hour period of time) : 6+ Naps : most days for 2 hrs PATIENT-ENTERED QUESTIONNAIRE SLEEP SCORES 05/20/2021 PHQ-9 Score 0 04/28/2020 04/15/2022 09/21/2022 PROMIS Global Health - (T-Scores - the mean of general population = 50. Five points is a clinically meaningful difference.) Physical T-Score 37.4 39.8 37.4 Mental T-Score 43.5 45.8 45.8 SLEEP RELATED ROS Review of Systems Genitourinary: Positive for nocturia. Musculoskeletal: Positive for arthralgias (left hip pain) and uncomfortable leg sensations. Neurological: Negative for memory loss. ALLERGIES Allergen Reactions Bacitracin (Bulk) Hives Codeine Unknown Dust Mites Other: See Comments Gentamicin Swelling redness of eye watery and itching Mold Unknown Sulfa (Sulfonamide * Other: See Comments redness Sulfabenzamide Hives Tree Pollen-Red Map* Shortness of Breath CURRENT MEDICATIONS: valsartan (DIOVAN) 320 mg tablet Take 1 tablet by mouth once daily. nystatin (MYCOSTATIN) powder Apply 1 application to affected area four times daily. semaglutide (OZEMPIC) 2 mg/dose (8 mg/3 mL) pen injector Inject 2 mg subcutaneously one time a week. fluticasone (FLONASE) 50 mcg/actuation nasal spray instill 2 sprays into each nostril once daily ketoconazole (NIZORAL) 2 % cream Apply to affected area once daily. Used for fungal skin fold rashes LUMIGAN 0.01 % drop ophthalmic drops instill 1 drop into both eyes at bedtime omeprazole (PRILOSEC) 40 mg capsule Take 1 capsule by mouth two times a day. atorvastatin (LIPITOR) 10 mg tablet take 1 tablet by mouth once daily levothyroxine (SYNTHROID) 75 mcg tablet take 1 tablet (more content not included)... Normal [facility] Cardiology Visit Reporton Cardiology Visit Report [facility] [address] [place] [address] OFFICE VISIT Date of Service: 04/05/24 MR#: [id number] Acct: [id number] Name: KEMAL CANTU Rep #: [id number] : 1945 Provider: ZEYNEP cee Age/Sex: 78/F Location: [facility] [place] [facility] Status: Signed HPI HPI History of Present Illness Details: Kemal Cantu, is a 78-year-old female who presents here today for a follow-up visit. She does have a history of coronary artery disease. She had a heart catheterization here at [facility] and was noted to have significant calcification of her RCA. Because of this, she was transferred to [facility] for further intervention. She underwent an arthrectomy and stenting to RCA on March 02, 2021. She also has a history of hypertension, hyperlipidemia, left bundle branch block. Her most recent stress test from 11/13/2023 was negative for ischemia, and her echocardiogram at that time demonstrated an ejection fraction of 65%, and stage I diastolic dysfunction. From a cardiac standpoint, the patient is doing well. She denies any palpitations, chest pain, pressure or heaviness. She denies SOB, Orthopnea, and PND. She does not have bleeding issues; no blood in urine, stool or nosebleeds. She does acknowledge a decrease in energy level. She denies myalgias, or claudication. She does have occasional bilateral ankle edema. She denies sudden weight gain. She denies dizziness, lightheadedness, syncopal or near syncopal episodes, and headaches. 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: No Is patient in pain?: No Allergies tree and shrub pollen Allergy (Severe, Verified 04/05/24 11:38) DIFFICULTY BREATHING bacitracin Allergy (Unknown, Verified 04/05/24 11:38) unknown codeine Allergy (Unknown, Verified 04/05/24 11:38) Unknown house dust mite Allergy (Unknown, Verified 04/05/24 11:38) unknown mold Allergy (Unknown, Verified 04/05/24 11:38) Unknown Sulfa (Sulfonamide Antibiotics) Allergy (Unknown, Verified 04/05/24 11:38) Unknown Medications ???Medication ???Instructions ???Recorded ???Confirmed ???Type Lactobacillus See Rx Instructions .Route .COMPLEX 02/01/21 04/05/24 History acidophilus-Bifidobac .animalis 2.5 billion cell capsule (Daily Probiotic) amoxicillin 500 mg capsule 2,000 mg PO .COMPLEX 02/01/21 04/05/24 History ascorbic acid (vitamin C) 250 mg 250 mg PO DAILY 02/01/21 04/05/24 History tablet atorvastatin 10 mg tablet 10 mg PO QHS 02/01/21 04/05/24 History bimatoprost 0.01 % eye drops 1 drp ophthalmic (eye) QPM 02/01/21 04/05/24 History (Lumigan) bupropion HCl 150 mg tablet,12 hr 150 mg PO QAM 02/01/21 04/05/24 History sustained-release cholecalciferol (vitamin D3) 50 2,000 unit PO DAILY 02/01/21 04/05/24 History mcg (2,000 unit) tablet fluticasone propionate 50 2 spray intranasal DAILY 02/01/21 04/05/24 History mcg/actuation nasal spray,suspension (Allergy Relief (fluticasone)) montelukast 10 mg tablet 10 mg PO QHS 02/01/21 04/05/24 History coenzyme Q10 200 mg capsule (Co 200 mg PO DAILY 09/28/21 04/05/24 History Q-10) conjugated estrogens 0.625 mg/gram 0.3125 mg vaginal .COMPLEX 09/28/21 04/05/24 History vaginal cream (Premarin) diclofenac sodium 1 % topical gel 2 g topical 4X/DAY PRN 09/28/21 04/05/24 History (Arthritis Pain (diclofenac)) levothyroxine 75 mcg tablet 75 mcg PO DAILY 09/28/21 04/05/24 History mbomkvdx-aubi-bxry 8 mg-folic 400 1 tab PO DAILY 09/28/21 04/05/24 History mcg-K 50 mcg-lutein 300 mcg tablet (Centrum Silver Women) semaglutide 1 mg/dose (4 mg/3 mL) 1 mg subcut QWEEK 09/28/21 04/05/24 History subcutaneous pen injector simethicone 125 mg chewable tablet 125 mg PO BID-QID PRN 09/28/21 04/05/24 History (Gas-X Extra Strength) zinc 50 mg tablet 50 mg PO DAILY 09/28/21 04/05/24 History ketoconazole 2 % topical cream 1 applic topical DAILY PRN 04/15/22 04/05/24 History valsartan 320 mg tablet 320 mg PO DAILY #90 tabs 06/02/22 04/05/24 Rx clonazepam 0.5 mg tablet 0.5 mg PO QHS PRN 10/07/22 04/05/24 History ferrous sulfate 324 mg (65 mg 324 mg PO BID 10/07/22 04/05/24 History iron) tablet,delayed release inulin 2 gram chewable tablet g PO 10/07/22 04/05/24 History (Fiber Gummies) pramipexole 0.125 mg tablet 0.25 mg PO 4XD 10/07/22 04/05/24 History vitamin K2 100 mcg capsule 100 mcg PO DAILY 10/07/22 04/05/24 History amlodipine 2.5 mg tablet (Norvasc) 2.5 mg PO DAILY #90 tabs 05/01/23 04/05/24 Rx metoprolol tartrate 25 mg tablet 25 m (more content not included)... Normal [facility] Absolute lymphocyte countOrd ered By: Payton Bruno on 10-06-2023 Lymphocytes Auto (Unsp spec) [#/Vol] 1.11 10*3/uL 0.83-4.51 [facility] Automated lymphocyte count a s percentage of total leukocytesOrdered By: Payton Bruno on 10-06-2023 Lymphocytes/100 WBC Auto (Unsp spec) 25.5 % 19-41 [facility] Basophil percentageOrdered B y: Payton Bruno on 10-06-2023 Basophils/100 WBC (Bld) 0.7 % 0-1 [facility] Chloride [Moles/Vol] 108 mmol/L 98-107 [facility] Eosinophils/100 WBC (Bld) 2.8 % 0-5 [facility] Glucose [Mass/Vol] 93 mg/dL 74-106 [facility] Hemoglobin (Bld) [Mass/Vol] 13.6 g/dL 12.0-15.0 [facility] Monocytes/100 WBC (Bld) 7.8 % 0-10 [facility] Neutrophils (Bld) [#/Vol] 2.7 10*3/uL 2.0-7.7 [facility] Neutrophils/100 WBC (Bld) 62.5 % 47-70 [facility] Potassium [Moles/Vol] 4.6 mmol/L 3.5-5.1 [facility] Sodium [Moles/Vol] 141 mmol/L 136-145 [facility] WBC (Bld) [#/Vol] 4.4 10*3/uL 4.4-11.0 [facility] Determination of erythrocyte mean corpuscular volume (MCV)Ordered By: Payton Bruno on 10-06-2023 MCV (RBC) [Entitic vol] 88.3 fL 81-99 [facility] Erythrocyte distribution wid th ratioOrdered By: Payton Bruno on 10-06-2023 Erythrocyte distribution width (RBC) [Ratio] 14.0 % 11.6-14.6 [facility] Erythrocyte distribution wid th standard deviationOrdered By: Payton Bruno on 10-06-2023 Erythrocyte distribution width (RBC) [Entitic vol] 45.2 fL 35.1-43.9 [facility] Hematocrit Auto (Bld) [Volum e fraction]Ordered By: Payton Bruno on 10-06-2023 Hematocrit (Bld) [Volume fraction] 42.3 % 37-47 [facility] Immature granulocytes/100 WB C Auto (Bld)Ordered By: Payton Bruno on 10-06-2023 Immature granulocytes/100 WBC (Bld) 0.700 % 0.0-0.9 [facility] Comment on above: IG% - Immature Granu locytes (promyelocytes, myelocytes and metamyelocytes) > 1% indicates that a LEFT SHIFT is Present. Laboratory - Chemistry and C hemistry - challengeOrdered By: Payton Bruno on 10-06-2023 CO2 [Moles/Vol] 30.0 mmol/L 21.0-32.0 [facility] Natriuretic peptide B (Bld) [Mass/Vol] 58.8 pg/mL 0-100 [facility] Urea nitrogen/Creatinine [Mass ratio] 18.9 mg/mg 10-20 [facility] Laboratory - Hematology and Cell countsOrdered By: Payton Bruno on 10-06-2023 MCH (RBC) [Entitic mass] 28.4 pg 27.0-32.0 [facility] MCHC (RBC) [Mass/Vol] 32.2 g/dL 32-36 [facility] Nucleated RBC/100 WBC (Bld) [Ratio] 0 % 0-5 [facility] Platelet mean volume (Bld) [Entitic vol] 10.0 fL 6.2-12.0 [facility] Platelets (Bld) [#/Vol] 205 10*3/uL 150-450 [facility] No Panel InformationOrdered By: Payton Bruno on 10-06-2023 Estimated GFR (MDRD) Amer 78 mL/min >60 [facility] Comment on above: GFR Calc Estimated GFR (MDRD) Non-Af Amer 65 mL/min >60 [facility] Comment on above: Non- GFR Calc RBC Auto (Bld) [#/Vol]Ordere d By: Payton Bruno on 10-06-2023 RBC (Bld) [#/Vol] 4.79 10*6/uL 4.2-5.4 [facility] Serum or plasma calcium za urement (mass/volume)Ordered By: Payton Bruno on 10-06-2023 Calcium [Mass/Vol] 9.7 mg/dL 8.5-10.1 [facility] Serum or plasma creatinine m easurement (mass/volume)Ordered By: Payton Bruno on 10-06-2023 Creatinine [Mass/Vol] 0.90 mg/dL 0.55-1.02 [facility] Comment on above: The validity of the calculated GFR & GFRAA in patients over 70 years has not been determined. Clinical correlation is essential. Serum or plasma urea nitroge n measurement (mass/volume)Ordered By: Payton Bruno on 10-06-2023 Urea nitrogen [Mass/Vol] 17 mg/dL 7-18 [facility] Thin prep Papanicolaou smear with manual screeningOrdered By: Payton Bruno on 10-06-2023 Thin prep Papanicolaou smear with manual screening 3 5-15 [facility] 25(OH)D3 SerPl-mCncon 2022 25-hydroxyvitamin D3 [Mass/Vol] 81.9 ng/mL High 31.0-80.0 [facility] Comment on above: Order Comment: Margie martin Type: BLOOD SPECIMEN Ordering Facility: [facility] Address: [address] [address] Result Comment: Clas sification of 25 [place] Vitamin D status: Deficiency/Insufficiency: < or = 30 ng/ml. Sufficiency/Optimal Levels: 31-80 ng/mL Toxicity: > 100 ng/mL. Test performed by chemiluminescent immunoassay. Performed By: #### 1 989-3 #### [facility] CLIA [id number] [address] [place] Ferritin [facility] 2022 Ferritin [Mass/Vol] 54.3 ng/mL Normal 14.7-205.1 [facility] Comment on above: Order Comment: Margie martin Type: BLOOD SPECIMEN Ordering Facility: [facility] Address: [address] Performed By: #### 5 0190-8, 2275-4 #### [facility] CLIA [id number] [address] [place] Iron and Iron binding capaci [facility] 05-15-2023 Iron [Mass/Vol] 57 ug/dL Normal 41-186 [facility] Comment on above: Order Comment: Margie martin Type: BLOOD SPECIMEN Ordering Facility: [facility] Address: [address] [address] Performed By: #### 5 0190-8, 6-4 #### [facility] CLIA [id number] [address] [place] Iron binding capacity [Mass/Vol] 320 ug/dL Normal 232-386 [facility] Comment on above: Order Comment: Margie martin Type: BLOOD SPECIMEN Ordering Facility: [facility] Address: [address] [address] Performed By: #### 5 0190-8, 6-4 #### [facility] CLIA [id number] [address] [place] [address] [place] Iron/TIBC [Molar ratio] 17.8 % Normal 15.0-57.0 M [facility] Comment on above: Order Comment: Speci men Type: BLOOD SPECIMEN Ordering Facility: [facility] Address: [address] [place] [address] Performed By: #### 5 0190-8, 2276-4 #### [facility] CLIA [id number] [address] [place] [address] [place] XR HIP GENERAL 3V PELV/AP/LA T RIGHTon 04-24-2023 [facility] XR HIP GENERAL 3V PELV/AP/LA T RIGHTon 03-27-2023 [facility] Basic metabolic 2000 panelon 03-16-2023 Anion gap [Moles/Vol] 7 mmol/L Low 9-18 [facility] Comment on above: Order Comment: Speci men Type: BLOOD SPECIMEN Ordering Facility: [facility] Address: [address] [place] [address] Performed By: #### 2 4321-2 #### [facility] CLIA [id number] [address] [place] [address] [place] Calcium [Mass/Vol] 9.5 mg/dL Normal 8.5-10.2 [facility] Comment on above: Order Comment: Speci men Type: BLOOD SPECIMEN Ordering Facility: [facility] Address: [address] [place] [address] Performed By: #### 2 4321-2 #### [facility] CLIA [id number] [address] [place] [address] [place] Chloride [Moles/Vol] 102 mmol/L Normal 97-105 [facility] Comment on above: Order Comment: Speci men Type: BLOOD SPECIMEN Ordering Facility: [facility] Address: [address] [place] [address] Performed By: #### 2 4321-2 #### [facility] CLIA [id number] [address] [place] [address] [place] CO2 [Moles/Vol] 28 mmol/L Normal 22-30 [facility] Comment on above: Order Comment: Speci men Type: BLOOD SPECIMEN Ordering Facility: [facility] Address: [address] [address] Performed By: #### 2 4321-2 #### [facility] CLIA [id number] [address] Creatinine [Mass/Vol] 0.98 mg/dL High 0.58-0.96 [facility] Comment on above: Order Comment: Margie mario Type: BLOOD SPECIMEN Ordering Facility: [facility] Address: [address] [address] Performed By: #### 2 4321-2 #### [facility] CLIA [id number] [address] OF [facility] ESTIMATED GLOMERULAR FILTRATION RATE 60 mL/min/1.73m??? Normal >=60 [facility] Comment on above: Order Comment: Margie mario Type: BLOOD SPECIMEN Ordering Facility: [facility] Address: [address] [place] [address] Result Comment: Marli mated Glomerular Filtration Rate (eGFR) is calculated using the 2020 CKD-EPI creatinine equation. This equation utilizes serum creatinine, sex, and age as parameters. The creatinine assay has traceable calibration to isotope dilution-mass spectrometry. Refer to KDIGO guidelines for clinical interpretation. In patients with unstable renal function, e.g. those with acute kidney injury, the eGFR may not accurately reflect actual GFR. Performed By: #### 2 4321-2 #### [facility] CLIA [id number] [address] [place] Glucose [Mass/Vol] 141 mg/dL High 74-99 [facility] Comment on above: Order Comment: Georgemarquez martin Type: BLOOD SPECIMEN Ordering Facility: [facility] Address: [address] [address] Result Comment: The [place] Diabetes Association (ADA) provides guidance for cutoff values for fasting glucose and random glucose. The ADA defines fasting as no caloric intake for at least 8 hours. Fasting plasma glucose results between 100 to 125 mg/dL indicate increased risk for diabetes (prediabetes). Fasting plasma glucose results greater than or equal to 126 mg/dL meet the criteria for diagnosis of diabetes. In the absence of unequivocal hyperglycemia, results should be confirmed by repeat testing. In a patient with classic symptoms of hyperglycemia or hyperglycemic crisis, random plasma glucose results greater than or equal to 200 mg/dL meet the criteria for diagnosis of diabetes. Reference: Standards of Medical Care in Diabetes 2016, British Diabetes Association. Diabetes Care. 2016.39(Suppl 1). Performed By: #### 2 4321-2 #### [facility] CLIA [id number] [address] Potassium [Moles/Vol] 4.3 mmol/L Normal 3.7-5.1 [facility] Comment on above: Order Comment: Margie martin Type: BLOOD SPECIMEN Ordering Facility: [facility] Address: [address] [place] [address] Performed By: #### 2 4321-2 #### [facility] CLIA [id number] [address] Sodium [Moles/Vol] 137 mmol/L Normal 136-144 [facility] Comment on above: Order Comment: Margie martin Type: BLOOD SPECIMEN Ordering Facility: [facility] Address: [address] [place] [address] Performed By: #### 2 4321-2 #### [facility] CLIA [id number] [address] Urea nitrogen [Mass/Vol] 25 mg/dL High 7-21 [facility] Comment on above: Order Comment: Margie martin Type: BLOOD SPECIMEN Ordering Facility: [facility] Address: [address] [place] [address] Performed By: #### 2 4321-2 #### [facility] CLIA [id number] [address] OF [facility] CASE MANAGEMon 03-16-2023 CASE MANAGEM HNO ID: [id number] Author: Romy Ramesh RN Service: ? Author Type: Registered Nurse Type: Care Mgt Progress Note Filed: 03/16/2023 12:32 PM Note Text: CARE MANAGEMENT DISCHARGE NOTE SERVICE DATE: March 16, 2023 SERVICE TIME: 12:30 PM Admission Date: 03/15/2023 LOS: 0 days Discharge Arrangement Discharge Arrangement: Home with Home Health Services Arranged Medical Services: Skilled Home Health Care Type: Home Health Agency, Physical Therapy Provider Name: [facility] Caregiver Assessment Caregiver is ready, willing and able to meet the patient's needs as recommended by the inter-professional team: Yes Name of Caregiver: Home with [facility] Transportation Arrangements Transportation Arrangements: Car Date of Trip: 03/16/23 Destination: Home Handoff Communication: Handoff to: Primary Care Physician Primary Care Physician Name/Phone: Dr. Chapa [phone] Additional Information: na Discharge Information Row Name Admission (Current) from 03/15/2023 in [facility] Start of Care -- 24-48 hours after discharge. Discharge order written for today, patient discharged home with [facility]. Patient agrees with discharge plan. Son will provide transportation. SIGNATURE: Romy Ramesh RN PATIENT NAME: Kemal Cantu DATE: March 16, 2023 TIME: 12:30 PM CONTACT #: [phone] [facility] HNO ID: [id number] Author: Romy Ramesh RN Service: ? Author Type: Registered Nurse Type: Care Mgt Initial Assessment Filed: 03/16/2023 12:26 PM Note Text: CARE MANAGEMENT: ASSESSMENT AND DISCHARGE PLAN SERVICE DATE: March 16, 2023 SERVICE TIME: 11:13 AM PCP: Helen Chapa MD (confirmed) Primary Contact: Extended Emergency Contact Information Primary Emergency Contact: Vaibhav Veronica Address: [address] [place] [address] Mobile Relation: Son Secondary Emergency Contact: GlenysGt Address: [address] [place] [address] Mobile Relation: Relative Admission Status: Ambulatory Surgery Insurance Provider: MEDICARE A AND B Discharge Planning requested by: Per Department Practice Potential Transition Plans Home Care Advance Directives Current Advance Directive: Health Care 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 In Chart: Yes Up To Date and Valid: Yes Current Living Arrangements and Support Lives with: Alone Type of Residence: Private Residence (House) Does the patient have to climb stairs at home?: Yes;stairs outside the home;stairs within the home (Bed and bath on 1st level) Support: Children How do you manage to accomplish the following: Independent: Ambulation;Transporta tion to appointments/communit y;Bathe/Shower;Dress; Meals/Meal Prep;Going to the bathroom;Medication Management Current Services/Equipment Current Post-Acute Service(s): DME Current DME Type: Elevated toilet seat, Walker Discharge Planning Patient Goal(s): General wellness, Less pain [place] of Choice Explained: [place] of [place] Given: Yes Level of Care Discussed: Home Care Are you interested in bedside delivery of your medications? No Discharge Planning Participant(s): Patient Patient/Family Comments: Caregiver Assessment: Caregiver is ready, willing and able to meet the patient's needs as recommended by the inter-professional team: Yes Name of Caregiver: home with [facility] Transport at Discharge: Transportation Arrangements: To Be Determined Needs Prior to Discharge: Needs Prior to Discharge: Home Care Order Post-Acute Discharge Plan: Home with [facility] Met with patient at bedside, introduced self/role of TCC. Patient admitted for a planned right total Hip with Dr. Hernandez. Patient lives alone in a 2 story home, her bed and bath are on the lst level. She is independent with ADLs and IADLs. Patient drives and ambulates without assistance. Patient will discharge with [facility] and a walker. Patient agrees with discharge plan. Family will transport. SIGNATURE: Romy Ramesh RN PATIENT NAME: Kemal Cantu DATE: March 16, 2023 TIME: 12:23 PM CONTACT #: [phone] Normal [facility] Hgb Bld-mCncon 03-16-2023 Hemoglobin (Bld) [Mass/Vol] 11.8 g/dL Normal 11.5-15.5 [facility] Comment on above: Order Comment: Speci men Type: BLOOD SPECIMEN Ordering Facility: [facility] Address: [address] [place] [id number] Performed By: #### 5 0190-8, 2276-4 #### [facility] CLIA [id number] [address] [place] [address] [facility] [place] THERAPY NTon 03-16-2023 THERAPY NT HNO ID: [id number] Author: Herman Holt PTA Service: Physical Therapy Author Type: Legal Nurse Consultant Type: Therapy (PT/OT/Speech/Resp) Filed: 03/16/2023 10:11 AM Note Text: Attestation signed by Zahira Goncalves PT at 03/16/2023 12:49 PM I reviewed and agree with the documentation corresponding to this therapy visit. SIGNATURE: Zahira Goncalves PT DATE: March 16, 2023 TIME: 12:49 PM Physical Therapy Treatment SERVICE DATE: 03/16/2023 SERVICE TIME: 929 to 1002 ROOM: [id number] Total Joint Replacement Discharge Readiness: Cleared from Physical Therapy Recommended Discharge Disposition: Home PT Recommended Discharge Disposition Comments: to increase strength and mobility around home post deysi Anticipated Discharge Needs: Physical Assist at Home, Supervision at Home, Equipment Physical Assist at Home for: Cleaning, Laundry, Meals, Safety, Self Care, Shopping, Transportation Supervision at Home due to: (initially for optimal safety) Recommended Discharge Equipment: No equipment needs anticipated PT 6 Clicks Score: 18 Precautions/Activity Restrictions: Fall Risk, Lines/Tubes/Drains, Posterior Hip Precautions, Weight Bearing Restrictions, Other: See Comments Precaution/Activity Restriction Comments: standard Extremity With Weight Bearing Restricted: Right Lower Extremity Right Lower Extremity Weight Bearing Status: WBAT Current Hospital Course: Pt is post-op R DEYSI with cemented femoral component Reason for Hospital Admission: pt admitted for primary OA of R hip Relevant Past Medical History: diabetes, fibromyalgia, GERD, hypothyroidism, IBS, migraines, MAURICE, OA, post-op nausea and vomiting, PTSD, restless leg syndrome Response to Therapy Interventions: Good Participation in Activities, Improved Tolerance for Activity, On-Track to Achieve Discharge Goals, Pain, Requires Additional Time to Complete Activities Assessment Comments: Pt displays significant progress with all mobility and no increase in pain or unsteadiness. Able to demonstrate good carryover and maintain precautions Physical Therapy Problem List: Education Deficit, Pain, Safety Deficits, Impaired Self Care, Decreased Activity Tolerance, Decreased Range Of Motion, Decreased Strength, Functional Mobility Impairment, Balance Impaired, Sensory Deficit, Decreased Skin Integrity Treatment Interventions: Education, Self Care / Home Management, Energy Conservation Training, Joint Mobility, Strengthening, Functional Mobility Training, Balance Training, Neuromuscular Re-education, Modalities Modalities: Ice Home Environment Patient Lives With: Self/Alone Assistance Available: 24-Hour (son arriving from out of town 8/3 AM and staying with pt until 03/20; another son to assist after that lives 10 minutes away) Entry To Home: Stairs, With Rail Number Of Stairs Into Home: 6 Number Of Stairs To Bed/Bath: 0 Tub/Shower Type: walk in shower with grab bar, built in shower seat and hand held shower Laundry: In basement; family able to assist with completion initially Equipment Owned: Other: See Comment, Hand Held Shower, Grab Bars- Shower, Commode- Raised, Cane, Walker- Wheeled, Walker Bag/Basket, Pool Lifeguard (Leg toolman) Prior Functional Level: Within Functional Limits 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 Reports feeling good and ready for therapy CURRENT FUNCTIONAL STATUS: Most recent performance Current Functional Mobility Assist Level Additional Information Rolling Supine to Sit Contact Guard Assistance, Additional Information Sit to Supine Minimal Assistance, Additional Information Scooting Contact Guard Assistance, Additional Information fwd at chair in seated Sit to Stand Contact Guard Assistance, Additional Information from chair to fww with min cues for LE positioning Stand to Sit Contact Guard Assistance, Additional Information min cues for LE positioning Bed to Chair Toilet/Commode Gait Contact Guard Assistance, Additional Information Gait Device: Wheeled Walker Gait Distance (feet): 50ft x2 Vcs for obstacle negotiation and fwd gaze. Good carryover noted and minimal exertion. No increase in pain Stairs Contact Guard Assistance, Additional Information Stairs Device: Rail Number of Stairs: 6 Vcs for sequencing. good carryover noted. No corrections, unsteadiness Curb Step Car Transfer Blank de la cruz indicate activity not attempted Gait Deviation (more content not included)... Normal [facility] THERAPY NT HNO ID: [id number] Author: Jean Calderon, OT/L Service: ? Author Type: Occupational Therapist Type: Therapy (PT/OT/Speech/Resp) Filed: 03/16/2023 9:17 AM Note Text: Occupational Therapy Evaluation SERVICE DATE: 03/16/2023 SERVICE TIME: 801 to 904 ROOM: [place] [address] Total Joint Replacement Discharge Readiness: Cleared from Occupational Therapy Recommended Discharge Disposition: Home OT Anticipated Discharge Needs: Physical Assist at Home, Supervision at Home, Equipment Physical Assist at Home for: Cleaning, Laundry, Meals, Safety, Self Care, Shopping, Transportation Supervision at Home due to: (initially for optimal safety) Recommended Discharge Equipment: ADL Kit, Patient to Obtain OT 6 Clicks Score: 19 Precautions/Activity Restrictions: Fall Risk, Lines/Tubes/Drains, Posterior Hip Precautions, Weight Bearing Restrictions, Other: See Comments Precaution/Activity Restriction Comments: standard Extremity With Weight Bearing Restricted: Right Lower Extremity Right Lower Extremity Weight Bearing Status: WBAT Current Hospital Course: Pt is post-op R DEYSI with cemented femoral component Reason for Hospital Admission: pt admitted for primary OA of R hip Relevant Past Medical History: diabetes, fibromyalgia, GERD, hypothyroidism, IBS, migraines, MAURICE, OA, post-op nausea and vomiting, PTSD, restless leg syndrome Response to Therapy Interventions: Good Participation in Activities, On-Track to Achieve Discharge Goals, Pain Assessment Comments: OT provided patient with and educated on posterior hip handout, educated and demonstrated use of LB ADL adapative equipment -- would benefit from additional review in the home setting; Pt able to report 3/3 hip precautions, demonstrated good ability to maintain precautions during ADLs and functional mobility; Vitals WFL, pain well-controlled, patient without questions/concerns for d/c home ; Pt cleared from OT standpoint Continued Skilled Needs Due to: Functional Impairment Occupational Therapy Problem List: Pain, Impaired Self Care, Decreased Activity Tolerance, Decreased Strength, Functional Mobility Impairment, Balance Impaired Cognition/Communicati on Deficits Orientation Deficits: (AOx4) Responsiveness: Alert, Awake Follows Commands: 3-step Commands Treatment Interventions: Education, Self Care/Home Management, Joint Mobility, Strengthening, Functional Mobility Training, Balance Training Plan for Next Visit: Bed Mobility, Chair/Commode Transfer Training, Dressing Training, Grooming Training, Sit to Stand Transfers, Standing Tolerance, Standing Balance, Toileting Instruction, Bathing Training Home Environment Patient Lives With: Self/Alone Assistance Available: 24-Hour (son arriving from out of town 8/3 AM and staying with pt until 03/20; another son to assist after that lives 10 minutes away) Entry To Home: Stairs, With Rail Number Of Stairs Into Home: 6 Number Of Stairs To Bed/Bath: 0 Tub/Shower Type: walk in shower with grab bar, built in shower seat and hand held shower Laundry: In basement; family able to assist with completion initially Equipment Owned: Other: See Comment, Hand Held Shower, Grab Bars- Shower, Commode- Raised, Cane, Walker- Wheeled, Walker Bag/Basket, Pool Lifeguard (Leg toolman) Prior Functional Level: Within Functional Limits 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 pt reports mod I for amb with FWW, sleeps sitting up in bed with pillows due to baseline back issues (unable to lay flat) and sleep apnea; indep with ADLs, IADLs, + driving; denies any falls in the past 6 months Baseline Cognition: Oriented to self, Oriented to place, Oriented to time, Oriented to situation 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 RN cleared to work with, patient pleasant and agreeable to this session CURRENT FUNCTIONAL STATUS: Most recent performance Current Activities of Daily Living Assist Level Additional Information Feeding Independent Grooming Contact Guard Assistance, Additional Information standing at sink Bathing Upper Body Stand By Assistance Bathing Lower Body Minimal Assistance Dressing Upper Body Set Up Dressing Lower Body Contact Guard Assistance Toileting Contact Guard Assistance Instrumental Activities of Daily Living Assist Level Additional Information Meal/Beverage Prep Cleaning Laundry Medication Management with S (more content not included)... Normal [facility] ANES POSTPROC EVALon 023 ANES POSTPROC EVAL HNO ID: [id number] Author: Taniya Singleton MD Service: Anesthesiology Author Type: Anesthesiologist Type: Anesthesia Postprocedure Evaluation Filed: 03/15/2023 12:02 PM Note Text: POST ANESTHESIA EVALUATION NOTE : 1945 Procedure Summary Date: 03/15/23 Room / Location: [place] [address] / [place] Anesthesia Start: 733 Anesthesia Stop: 1051 Procedure: ARTHROPLASTY REPLACE JOINT TOTAL HIP (Right: Hip) Diagnosis: Primary osteoarthritis of right hip (Primary osteoarthritis of right hip [M16.11]) Surgeons: Marco Hernandez MD Responsible Provider: Taniya Singleton MD Anesthesia Type: general ASA Status: 3 Anesthesia Type: general Airway Type: ETT Last Vitals Vitals Value Taken Time BP 148/65 03/15/23 1200 Temp 36.6 ?C (97.9 ?F) 03/15/23 1056 Pulse 71 03/15/23 1200 Resp 23 03/15/23 1200 SpO2 97 % 03/15/23 1200 Vitals shown include unvalidated device data. Post Anesthesia Patient Status Patient Evaluation: PACU. PACU/ICU Patient Condition: stable. Anticipated Disposition: phase 2 then home. Neurological Status: aware and responsive. Pulmonary Status: breathing comfortably on room air Airway Control: returned to baseline unsupported. Cardiovascular Status: stable. Pain Management: clinically adequate - multimodal analgesia pain management approach Postoperative Hydration: acceptable. Intraoperative Events: no significant anesthesia events Post Operative Nausea/Vomiting Status: no significant post operative nausea or vomiting Recommendation: continue current plan of care. Anesthesia Observations No Documentation SIGNATURE: Taniya Singleton MD PATIENT NAME: Kemal Cantu DATE: March 15, 2023 TIME: 12:02 PM CSN: [id number] [facility] ANES PRE-OPon 03-15-2023 ANES PRE-OP HNO ID: [id number] Author: Taniya Singleton MD Service: Anesthesiology Author Type: Anesthesiologist Type: Anesthesia Preprocedure Evaluation Filed: 03/15/2023 7:04 AM Note Text: ANESTHESIOLOGY DAY OF SURGERY NOTE : 1945 Procedure Information Date/Time: 03/15/23729 Procedure: ARTHROPLASTY REPLACE JOINT TOTAL HIP (Right: Hip) Location: [place] OR01 / [place] Surgeons: Marco Hernandez MD Estimated body mass index is 40.54 kg/m? as calculated from the following: Height as of this encounter: 168.9 cm (5' 6.5). Weight as of this encounter: 115.7 kg (255 lb). Most recent hematocrit and potassium results: Hematocrit 39.7 02/27/2023 Potassium 4.6 02/27/2023 Relevant Problems ANESTHESIA (+) 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 CARDIO (+) 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) (+) Essential hypertension, benign (+) LBBB (left bundle branch block) ENDO (+) Hypothyroidism (+) Type 2 diabetes mellitus, without long-term current use of insulin (HCC) GI (+) GERD (gastroesophageal reflux disease) (+) Gastroesophageal reflux disease with esophagitis -RENAL (+) CKD (chronic kidney disease) NEURO-PSYCH (+) Chronic headache PULMONARY (+) 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 I - PHYSICAL EVALUATION AIRWAY Patient intubated: No. Tracheostomy tube not present Mallampati: II. TM distance: >3 FB. Neck ROM: full ROM without neurological symptoms. Mouth opening: adequate. Short neck: no. Thick neck: no DENTAL Dental findings: teeth intact. Additional exam findings: yes. CARDIOVASCULAR Rhythm: regular Rate: normal PULMONARY Breath sounds clear to auscultation. ABDOMINAL Obese: obesity present. BACK Previous neurological condition or findings: condition present. II - ANESTHESIA PLAN ASA Score: 3 Anesthetic Plan: general Airway type: ETT The patient is not a current smoker. NPO Status: adequate Beta Katina Monitoring Plan Monitoring plan: Standard ASA. Post Procedure Analgesic Plan Postoperative analgesic plan: parenteral or oral opioids and multimodal analgesia. Informed Consent Anesthetic risks, benefits, alternatives, personnel and consent discussed: yes. Patient / Responsible Alliance Party agrees to proceed: yes Patient / Surrogate agrees to blood products: yes DNR status not reviewed with patient and/or family prior to surgery. Significant changes in the patient condition since the History and Physical, not otherwise documented in primary service progress note: no. Potential Anesthesia issues that may suggest increased risk of complications or contraindication to planned procedure: none. Vitals Value Taken Time BP 138/69 03/15/2356 Pulse Resp 18 03/15/23655 Temp 36.6 ?C (97.9 ?F) 03/15/23655 SpO2 99 % 03/15/23655 Facility-Administered Medications as of 03/15/2023 Medication Dose Route Frequency - lidocaine (PF) 10 mg/mL (1 %) 1-2 mg injection (XYLOCAINE) 0.1-0.2 mL INTRADERMAL PRN - lactated ringers iv infusion 5-30 mL/hr INTRAVENOUS CONTINUOUS - NaCl 0.9% iv flush bag 20 mL INTRAVENOUS PRN - ceFAZolin iv piggyback 2 g in D5W (iso-osmotic) 100 mL (ANCEF) 2 g INTRAVENOUS Pre-Op Once - acetaminophen 650 mg tab(s) (TYLENOL) 650 mg ORAL Pre-Op Once - celecoxib 200 mg cap(s) (CeleBREX) 200 mg ORAL Pre-Op Once - gabapentin 100 mg cap(s) (NEURONTIN) 100 mg ORAL Pre-Op Once - scopolamine 1 mg over 3 days 1 Patch (TRANSDERM-SCOP) 1 Patch TRANSDERMAL Pre-Op Once - cyclobenzaprine 10 mg tab(s) (FLEXERIL) 10 mg ORAL ONCE - famotidine 20 mg injection (PEPCID) 20 mg INTRAVENOUS ONCE - metoclopramide HCl 10 mg injection (REGLAN) 10 mg INTRAVENOUS ONCE Outpatient Medications as of 03/15/2023 Medication Sig - buPROPion SR (ZYBAN SR; WELLBUTRIN SR) 150 mg 12 hr tablet take 1 tablet by mouth once daily - Magnesium Oxide 500 mg tab Take by mouth once daily. - LUMIGAN 0.01 % drop ophthalmic drops instill 1 drop into both eyes once daily at bedtime - fluticasone (FLONASE) 50 mcg/actuation nasal spray instill 2 sprays into each nostril once daily - omeprazole (PRILOSEC) 40 mg capsule take 1 capsule by mouth twice a day - atorvastatin (LIPITOR) 10 mg tablet Take 1 tablet by mouth once daily. - levothyroxine (SYNTHROID) 75 mcg tablet take 1 tablet by mouth once daily ON AN EMPTY STOMACH - montelukast (SINGULAIR) 10 mg tablet Take 1 tablet by mouth daily at bedtime. - simethicone (GAS-X ORAL) Take 125 mg by mouth twice daily. - amLODIPine (NORVASC) 2.5 mg tablet Take 2.5 mg by mouth once daily. - metoprolol tartrate, short acting, (LOPRESSOR) 50 mg tablet Take 50 mg by mouth once daily. - Bifidobacterium infantis (ALIGN ORAL) Take 1 tablet by mouth once daily. - LOW-DOSE ASPIRIN ORAL Take 81 mg by mouth once daily. - ascorbic acid, vitamin C, (VITAMIN C) 250 mg tablet Take 250 mg by mouth once daily. - ferrous sulfate EC 324 mg (65 mg iron) TbEC Take 324 mg by mouth once daily. - (more content not included)... [facility] BRIEF OP NOTon 03-15-2023 BRIEF OP NOT HNO ID: [id number] Author: Marco Hernandez MD Service: Orthopaedic Surgery Author Type: Physician Type: Brief Op Note Filed: 03/15/2023 10:48 AM Note Text: BRIEF OPERATIVE / PROCEDURE NOTE LOG ID: [id number] SURGERY/PROCEDURE DATE: 03/15/2023 INCISION/PROCEDURE START TIME: 8:15 AM INCISION CLOSE/PROCEDURE END TIME: 10:40 AM SURGEON(S)/PROCEDURAL IST(S) AND CHOCOLATE MOLDER(S): Surgeon(s) and Role: * Marco Hernandez MD - Primary Physician Manager Intel: Lety Haywood PA-C Registered Nurse Supervisor Tumblers: Georgette Arvizu RN SURGERY/PROCEDURE(S): Right total hip arthroplasty; CEMENTED ANESTHESIA: General FINDINGS: end stage OA; anterverted femur ESTIMATED BLOOD LOSS: 300 mls SPECIMENS: head sent COMPLICATIONS: None CLOSURE TECHNIQUE: Primary PRE-OP/PRE-PROCEDURE DIAGNOSIS: Right hip OA POST-OP/POST-PROCEDUR E DIAGNOSIS: Same as Preop Pt can be WBAT due to cementing femur SIGNATURE: Marco Hernandez MD PATIENT NAME: Kemal Cantu DATE: March 15, 2023 TIME: 10:46 AM [facility] Christin 03-15-2023 [facility] HNO ID: [id number] Author: Christiano Loya PA-C Service: Orthopaedic Surgery Author Type: Physician Manager Intel Type: Discharge Summary Filed: 03/16/2023 11:54 AM Note Text: Attestation signed by Marco Hernandez MD at 03/16/2023 5:39 PM Marco Hernandez MD DISCHARGE SUMMARY PATIENT NAME: Kemal Cantu ADMISSION DATE: 03/15/2023 DISCHARGE DATE: 03/16/2023 PATIENT DISCHARGE SUMMARY C O N F I D E N T I A L I N F O R M A T I O N The following is a brief overview of your hospitalization. Some of the information contained on this summary may be confidential. This information should be kept in your records and should be shared with your regular doctor. These instructions explain what you or your point of care technician need to do to continue your care at home or at another healthcare facility Please go over these instructions with your nurse and point of care technician. If you are not sure about something, please ask. Highest Readmission Risk Score: 15 The 30 day readmissions risk score is derived from an internally validated risk model which evaluates patient level characteristics, utilization history, medication orders and lab results up until the day of discharge. Patients with a score of 40 or above are considered highest risk for readmission. Specific patient level drivers will be listed at the bottom of the summary. The 30 day readmissions risk score is derived from an internally validated risk model which evaluates patient level characteristics, utilization history, medication orders and lab results up until the day of discharge. Patients with a score of 40 or above are considered highest risk for readmission. Where I Will be Going after Discharge: Home with Home Health My Condition at Discharge: Stable PRINCIPAL DIAGNOSIS: (Reason after study for this admission): Procedure(s): ARTHROPLASTY REPLACE JOINT TOTAL HIP OTHER DIAGNOSES: Patient Active Hospital Problem List: No active hospital problems. OPERATIONS PERFORMED: Procedure(s): ARTHROPLASTY REPLACE JOINT TOTAL HIP My Doctors and Medical Team: [facility] Doctor: Marco Mackenzie MD PHYSICAL EXAM: See daily progress note Vitals: BP 129/56 Pulse 83 Temp 36.6 ?C (97.9 ?F) (Temporal) Resp 16 Ht 168.9 cm (5' 6.5) Wt 115.7 kg (255 lb) SpO2 97% BMI 40.54 kg/m? SUMMARY OF WHAT HAPPENED WHILE PATIENT WAS IN THE HOSPITAL: The patient was followed by Dr. Hernandez in clinic for right hip osteoarthritis. It was determined the patient would benefit from right total hip arthroplasty. The procedure, its risks, benefits, and potential complications were discussed in detail prior to surgery. The patient conveyed understanding of all topics and consented to surgery. The patient was admitted to the hospital. Underwent an elective right total hip arthroplasty on 03/15/[address] Hernandez. The patient tolerated the procedure well and was returned to the Post Anesthesia Care Unit in stable condition. Vital signs per PACU protocol. VTE risk assessment performed. O2 therapy monitored by Respiratory Therapy to include incentive spirometry, ADL, wound and support per physician order set postop protocol. PT and OT to evaluate and treat. IV antibiotics, antiemetics, aspirin for DVT prophylaxis and pain medication were given. The patient progressed with physical therapy. Lab values and vital signs were monitored and remained stable. The incision remained clean, dry and intact. Thigh and calf are not swollen. No signs of DVT or infection. The patient progressed with physical therapy towards goal of safety and independence. Patient was determined safe for discharge to home with home health care on 03/16/2023. TREATMENT / WOUND CARE: If you have any concerns about your wound, please contact the office. Keep wound and incision area clean and dry. You may remove your dressing on POD #7-10 (7 to 10 days after surgery). If it remains drainage-free, you may leave the dressing off, keeping the wound open to air. If there is any drainage please contact the office You may not submerge the wound under standing water for 6 weeks time after surgery (i.e. no baths, no hot tubs, no swimming pools). Do not rub the wound, but rather pat dry. If you have non-absorbable sutures in place, these will be taken out on your 1st follow-up appointment. Observe the wound for signs of infection, including increased redness, swelling, or persistent drainage around the incision site. It is normal for your wound to be warmer immediately after surgery (even up to 4-6 weeks after surgery). If you begin to experience fevers, chills, night sweats, or flu-like (more content not included)... Normal [facility] CONSULTon 03-15-2023 CONSULT HNO ID: [id number] Author: Dillon Carrasquillo MD Service: General Internal Medicine Author Type: Physician Type: Consults Filed: 03/17/2023 1:44 PM Note Text: [facility]- Consultation KEMAL CANTU : 1945 AGE: 77 SEX: F [id number] LOCATION: [address] ATTENDING PHYSICIAN: Marco Hernandez M.D. DATE OF SERVICE: 03/15/2023 TIME OF SERVICE: 05:00 PM REASON FOR CONSULTATION: Postop medical management. HISTORY: A 77-year-old female whose significant medical history includes osteoarthritis; coronary artery disease; obstructive sleep apnea, not using a CPAP; GERD; CKD; irritable bowel syndrome with D; hyperlipidemia; hypertension; restless leg syndrome; fibromyalgia; chronic headache; diabetes mellitus type 2, well controlled; hypothyroidism; chronic back pain; anxiety/depression. Patient underwent elective right total hip arthroplasty under general anesthesia. Patient had uneventful intraoperative course. Estimated blood loss 300 mL. Patient did fairly well with the first round of physical therapy without experiencing any nausea, vomiting, lightheadedness, dizziness. Her pain is well controlled. PAST MEDICAL HISTORY: As mentioned above. PAST SURGICAL HISTORY: Upper and lower endoscopy, keratoplasty, breast reduction, left total knee and right total knee replacement. FAMILY HISTORY: Positive for diabetes and coronary artery disease. SOCIAL HISTORY: Does not smoke. She drinks alcohol occasionally. 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 MEDICATIONS: Her current home medication list reviewed. ALLERGIES: She is allergic to codeine, bacitracin, gentamicin, sulfa. Sulfa caused hives. REVIEW OF SYSTEMS: HEENT/Neck: She does have a history of glaucoma and history of eye surgery. History of chronic headache. No history of seizure disorder, Parkinson disease, or CVA. History of sleep apnea, currently not using a CPAP. She is planning to repeat sleep studies in near future. No history of recent pulmonary infection. History of coronary artery disease, hypertension, hyperlipidemia. No dyspnea with exertion, PND, orthopnea. History of GERD and irritable bowel syndrome/D and she does have several loose bowel movements. No melenic stool. No hematochezia. Good appetite. History of mild urinary frequency, history of bladder prolapse repair, more than once a night micturition, and history of CKD. No recent urinary tract infection. History of diabetes, well controlled and hypothyroidism. No diabetic neuropathy. History of iron deficiency anemia. Also depression. Chronic back pain. PHYSICAL EXAM: General: Elderly white female. The patient is alert and oriented. Neck: Good carotid pulse felt. No carotid bruit. No thyromegaly appreciated. No lymphadenopathy of the neck. Lungs: Clear to auscultation bilaterally. Cardiovascular: S1, S2. Regular rhythm. No murmur, gallop, or rub present. Abdomen: Soft, nontender, nondistended. No mass felt. Lower Extremities: No ankle edema noted. IMPRESSION: 1. Osteoarthritis, status post right total hip arthroplasty. Deep venous thrombosis prophylaxis as ordered by Dr. Hernandez. 2. Diabetes mellitus type 2. Continue Ozempic and metformin. 3. Anxiety/depression. Currently on Wellbutrin. 4. Gastroesophageal reflux disease. Continue Prilosec. 5. Coronary artery disease. Continue statins. 6. Hypertension. Continue Diovan. Also, she takes Klonopin half tablet daily at nighttime as needed. 7. Hypothyroidism. Continue Synthroid. 8. Obstructive sleep apnea. Currently not using a CPAP. 9. Hold other medication for now. Thank you very much for kind referral. Continue to follow her while she is in the hospital. Dillon Carrasquillo M.D. Internal Medicine SKJ:[id number] /[id number] [facility] OPERATIVE NOon 03-15-2023 OPERATIVE NO HNO ID: [id number] Author: Marco Hernandez MD Service: Orthopaedic Surgery Author Type: Physician Type: Operative Report Filed: 03/15/2023 5:05 PM Note Text: OPERATIVE/PROCEDURE REPORT LOG ID: [id number] SURGERY/PROCEDURE DATE: 03/15/2023 INCISION/PROCEDURE START TIME: 8:15 AM INCISION CLOSE/PROCEDURE END TIME: 10:40 AM SURGEON(S)/PROCEDURAL IST(S) AND CHOCOLATE MOLDER(S): Surgeon(s) and Role: * Marco Hernandez MD - Primary Physician Manager [employer]: Lety Haywood PA-C (Supervisor Tumblers) Registered Nurse: Georgette Arvizu RN SURGERY/PROCEDURE(S): Right total hip arthroplasty. Modifier 22. ANESTHESIA: Spinal with general, ET. SURGERY/PROCEDURE DETAILS: INDICATIONS: This is a pleasant 64-year-old female who had significant worsening of right hip pain, causing functional problems. She exhausted conservative management including oral anti-inflammatories, pain medications, and physical therapy. The risks, benefits, alternatives, and potential complications involving total hip arthroplasty were again discussed with pt. and she understood the risks, including but not limited to, infection, perioperative complications, instability or dislocation, leg length differences, DVT or PE. FINDINGS: Severe arthritic changes on the femoral head and acetabular side. PROCEDURE: On 03/15/2023, the patient was clearly identified in the preoperative area and marked accordingly on the right hip by myself. Pt was taken to the operative suite and was given a spinal anesthetic. Received 2 grams of Ancef prior to incision. The patient was then placed in a lateral decubitus position with a beanbag positioner and an axillary roll. All bony landmarks and neurovascular structures were appropriately padded in standard fashion, and the head and neck was taken care of by Anesthesia for the remainder of the case. The affected lower extremity was then sterilely prepped and draped in standard fashion. An appropriate time-out was conducted and all were in agreement, signed consent form was on the chart, images were available for viewing, and implants were in the room with representation. Pt was also given 1g of TXA. Incision was made over the tip of the greater trochanter on the posterior edge in a curvilinear fashion. A layer of adipose was managed, dissected through and retracted. I came right down to the fascia on the lateral portion of the hip. The fascia was incised along the same curvature of the of the skin incision. Distally and proximally the fibers of the gluteus sy were bluntly dissected with my with my finger. Some bursa was excised off the lateral and posterior portion of the proximal femur. A Charnley retractor was placed for soft tissue retraction after the sciatic nerve was palpated, identified and protected during placement of the Charnley and throughout the case. I used a Bovie to come through the short external rotators of the hip at the level of the piriformis and made a T capsulotomy at that point, up to the acetabular rim. The femoral head was easily and atraumatically dislocated at that point. It was completely denuded, with no remaining cartilage, eburnated with large osteophytes around the base of the head/neck with significant synovitis. I measured from the lesser trochanter to the center of the head and from the center of the head to the greater the tip of the trochanter for measurements later on my trialing. I selected an Accolade II 127-degree neck angle cutting guide, and scored this angle and about 1 fingerbreadth from the lesser trochanter. Next, with an oscillating saw and soft tissues protected with 2 Cobra retractors, the femoral neck cut was made. A bone hook was used to move the proximal femur away from the acetabulum, and I placed a blunt Hohmann safely over the anterior rim of the acetabulum and a posterior acetabular retractor inferiorly. I also placed a pointed wide Hohmann under the abductors for retraction superiorly. I then the capsule from the labrum and removed the labrum and soft tissues around the bony rim of the acetabulum as well as in the condylar fossa. She had circumferential osteophytes around the acetabulum, with a superior/anterior shelf with medially worn, modoc cup. There were minimal subchondral cysts along the anterior acetabula and these were debrided and curetted . Once the fossa was cleared out, I began our reaming. I sequentially reamed up to a 50 attempting to medialize and bring in with approximately 20 degrees of anteversion and 45 degrees of abduction. Once I found my appropriate positioning. I reamed with the final 50 for appropriate cup positioning. I then selected a [place] Trident II, 50 mm acetabular, cluster cup and malleted this in with a nice scratch fit. A 30 mm screw was drilled for, measured and filled. I elected to go with a 36mm head. We then focused our attention on the femur. The remnant soft tissues o (more content not included)... Normal [facility] SURGICAL PATHOLOGYon 023 CASE REPORT Normal [facility] Comment on above: Order Comment: Speci men Type: SPECIMEN FROM BONE Ordering Facility: [facility] Address: [address] [place], [place] [id number] Result Comment: [facility] Path[facility] Report Case: [id number] Authorizing Provider: Marco Hrenandez MD Collected: 03/15/2023 08:29 AM Ordering Location: [facility] Surgery Received: 03/15/2023 11:05 AM Pathologist: Christine Rios MD Specimen: FEMORAL HEAD RIGHT Performed By: #### S #### [facility] CLIA [id number] [address] [place] [address] [place] CLINICAL HISTORY Normal [facility] Comment on above: Order Comment: Speci men Type: SPECIMEN FROM BONE Ordering Facility: [facility] Address: [address] [place] [address] Result Comment: Pre- op diagnosis: Primary osteoarthritis of right hip [M16.11] Performed By: #### S #### [facility] CLIA [id number] [address] [place] [address] [place] FINAL DIAGNOSIS Normal [facility] Comment on above: Order Comment: Speci men Type: SPECIMEN FROM BONE Ordering Facility: [facility] Address: [address] [place], [place] [id number] Result Comment: Yoselyn Washington emoral head, right, arthroplasty: - Degenerative joint disease. Performed By: #### S #### [facility] CLIA [id number] [address] [place] [address] [place] FINAL PERFORMING LAB Normal [facility] Comment on above: Order Comment: Speci men Type: SPECIMEN FROM BONE Ordering Facility: [facility] Address: [address] [place], [place] [id number] Result Comment: Diag nostic interpretation performed at [facility], [address] [place] [address] CLIA# [id number] Jewelry Making Instructor: Guanakito Broderick M.D. Performed By: #### S #### [facility] CLIA [id number] [address] [place] [address] OF [facility] GROSS DESCRIPTION Normal [facility] Comment on above: Order Comment: Speci men Type: SPECIMEN FROM BONE Ordering Facility: [facility] Address: [address] [place] [address] Result Comment: Yoselyn Washington EMORAL HEAD RIGHT Received in formalin labeled with femoral head right is a femoral head measuring approximately 4.9 x 4.5 x 4.5 cm. The articular surface is roughened and granular in appearance. There is an area of eburnation identified measuring 2.7 cm in greatest dimension. Mild osteophyte formation is identified. Sectioning reveals horner-yellow, firm subchondral bone beneath areas of eburnation. There are no areas of hemorrhage, softening, or bone necrosis grossly appreciated. There is no attached soft tissue present. Spring Assembler Supervisor sections of weightbearing and nonweightbearing surfaces are submitted in cassette A1 following decalcification. TLA March 15, 2023 3:42 PM Gross examination performed at [facility], [address] [place] [address] Performed By: #### S #### [facility] CLIA [id number] [address] [place] [address] [place] THERAPY NTon 03-15-2023 THERAPY NT HNO ID: [id number] Author: Mariusz Hassan PT Service: Physical Therapy Author Type: Physical Therapist Type: Therapy (PT/OT/Speech/Resp) Filed: 03/15/2023 5:09 PM Note Text: Physical Therapy Evaluation SERVICE DATE: 03/15/2023 SERVICE TIME: 1532 to 1632 ROOM: [place] [address] Recommended Discharge Disposition: Home PT Recommended Discharge Disposition Comments: to ensure safety with all mobility in home setting, progression of ROM and strengthening as per precautions post- R DEYSI Anticipated Discharge Needs: Supervision at Home, Physical Assist at Home Physical Assist at Home for: Cleaning, Laundry, Meals, Stairs, Safety, Shopping, Transportation Supervision at Home due to: Other: See Comment (initially for safety) Recommended Discharge Equipment: No equipment needs anticipated PT 6 Clicks Score: 18 Precautions/Activity Restrictions: Fall Risk, Lines/Tubes/Drains, Posterior Hip Precautions, Weight Bearing Restrictions, Other: See Comments Precaution/Activity Restriction Comments: standard Extremity With Weight Bearing Restricted: Right Lower Extremity Right Lower Extremity Weight Bearing Status: WBAT Current Hospital Course: Pt is post-op R DEYSI with cemented femoral component Reason for Hospital Admission: pt admitted for primary OA of R hip Relevant Past Medical History: diabetes, fibromyalgia, GERD, hypothyroidism, IBS, migraines, MAURICE, OA, post-op nausea and vomiting, PTSD, restless leg syndrome Response to Therapy Interventions: Good Participation in Activities, Improved Tolerance for Activity, On-Track to Achieve Discharge Goals, Pain, Requires Additional Time to Complete Activities Assessment Comments: pt with good understanding of DEYSI precautions once educated and good follow through overall of cues throughout session; overall CGA/min assist with FWW OOB activity; vitals stable, denies lightheadedness/dizzi ness, pain tolerable Continued Skilled Needs Due to: Continued Monitoring of Vital Signs During Mobility Required, Family Training Required, Functional Mobility/Skill Impairments, Integumentary Impairment, Safety Concerns Physical Therapy Problem List: Education Deficit, Pain, Safety Deficits, Impaired Self Care, Decreased Activity Tolerance, Decreased Range Of Motion, Decreased Strength, Functional Mobility Impairment, Balance Impaired, Sensory Deficit, Decreased Skin Integrity Treatment Interventions: Education, Self Care / Home Management, Energy Conservation Training, Joint Mobility, Strengthening, Functional Mobility Training, Balance Training, Neuromuscular Re-education, Modalities Modalities: Ice Plan for Next Visit: Bed Mobility, Chair Transfer Training, Fall Prevention, Family Instruction, Gait Training, Exercise Instruction/Handout, Sit to Stand Transfers, Standing Balance, Standing Tolerance, Walker Training, Sitting Balance Home Environment Patient Lives With: Self/Alone Assistance Available: 24-Hour (son arriving from out of town 8/3 AM and staying with pt until 03/20; another son to assist after that lives 10 minutes away) Entry To Home: Stairs, With Rail Number Of Stairs Into Home: 6 Number Of Stairs To Bed/Bath: 0 Tub/Shower Type: walk in shower with grab bar, built in shower seat and hand held shower Laundry: family able to assist with completion initially Equipment Owned: Other: See Comment, Hand Held Shower, Grab Bars- Shower, Commode- Raised, Cane, Walker- Wheeled, Walker Bag/Basket (built in shower seat) Prior Functional Level: Within Functional Limits 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 pt reports mod I for amb with FWW, sleeps sitting up in bed with pillows due to baseline back issues (unable to lay flat) and sleep apnea; indep with ADLs, IADLs, + driving; denies any falls in the past 6 months Subjective: Pt resting at approach, no acute distress noted, pleasant and cooperative, oriented x 3, 2/10 ache R hip at rest, agreeable to PT evaluation/treatment, ok per RN for PT, pt has been up to BSC twice without incident CURRENT FUNCTIONAL STATUS: Most recent performance Current Functional Mobility Assist Level Additional Information Rolling Supine to Sit Contact Guard Assistance, Additional Information HOB elevated to 35 degrees (bed height elevated at home at baseline), no use of bed rails, + time to complete, slow pacing, pain tolerable/controlled Verbal and visual cues initially and prn thereafter for effective utilization of bilateral UEs, LE management, functional progression to EOB, safe sequencing, technique to maintain DEYSI precautions. HOB as noted, no use of bed rails. min increased difficulty and time to complete. Bed in max inflate mode Sit to Supine Minimal Assistance, Additional Information for R LE up to bed surface, HOB elevated to 35 degrees, no use of bed rails; slow pacing, + time, pain tolerable Same as cues above with supine to sit Scooting Contact Guard Assistance, Additional (more content not included)... [facility] XR HIP 1V RTon 03-15-2023 XR HIP 1V RT * * *Final Report* * * DATE OF EXAM: Mar 15 2023 9:23AM MDR [id number] - XR HIP 1V RT / PROCEDURE REASON: ARTHROPLASTY RIGHT TOTAL HIP JOINT FOR OSTEOARTHRITIS * * * * Physician Interpretation * * * * XR HIP 1V RT HISTORY: Indication: ARTHROPLASTY RIGHT TOTAL HIP JOINT FOR OSTEOARTHRITIS ARTHROPLASTY REPLACE JOINT TOTAL HIP-RIGHT TECHNIQUE: Fluoroscopic Radiation Summary: Plane A, Air Kerma: 0.0 mGy Dose Area Product (DAP): 0.0 mGy*cm^2 Fluoro time: Not available min:sec Images obtained: 1 Spot film images/cine fluoroscopy images under fluoroscopic guidance. Images were stored in a permanent archive. Comparison: NONE. RESULT: Findings: Imaging provided for Interval placement of portions of LEFT total hip Arthroplasty. The components of the arthroplasty are in good alignment with respect to bones and each other. See procedural note in Epic for further discussion. IMPRESSION: As discussed [place] Trans[facility] Date/Time: Mar 15 2023 10:20A Dictated by : DEWAYNE HADDAD DO This examination was interpreted and the report reviewed and electronically signed by: DEWAYNE HADDAD DO on Mar 15 2023 10:25AM EST [id number] N [facility] XR PELVIS 1V APon 03-15-2023 XR PELVIS 1V AP * * *Final Report* * * DATE OF EXAM: Mar 15 2023 11:12AM MDX [id number] - XR PELVIS 1V AP / PROCEDURE REASON: Post-operative / post-procedure assessment, asymptomatic * * * * Physician Interpretation * * * * HISTORY: Post-operative / post-procedure assessment, asymptomatic POST OP Portable, Patient Location: PACU TECHNIQUE: Portable AP pelvis COMPARISON: 01/10/2023 RESULT: Right hip prosthesis in satisfactory appearing position. IMPRESSION: As in results [place]: [facility] Transcribe Date/Time: Mar 15 2023 11:39A Dictated by : BAHMAN LIN MD This examination was interpreted and the report reviewed and electronically signed by: BAHMAN LIN MD on Mar 15 2023 11:40AM EST [id number] N [facility] CBC W Auto Differential pane l (Bld)on 02-27-2023 Basophils (Bld) [#/Vol] <0.11 k/uL [facility] Basophils/100 WBC (Bld) 0.4 % [facility] Differential cell count method Nom (Bld) Auto [facility] Eosinophils (Bld) [#/Vol] 0.10 10*3/uL <0.46 k/uL [facility] Eosinophils/100 WBC (Bld) 2.2 % [facility] Erythrocyte distribution width (RBC) [Ratio] 13.6 % 11.5 - 15.0 % [facility] Hematocrit (Bld) [Volume fraction] 39.7 % 36.0 - 46.0 % [facility] Hemoglobin (Bld) [Mass/Vol] 13.2 g/dL 11.5 - 15.5 g/dL [facility] Immature granulocytes (Bld) [#/Vol] <0.10 k/uL [facility] Immature granulocytes/100 WBC (Bld) 0.2 % [facility] Lymphocytes (Bld) [#/Vol] 1.16 10*3/uL 1.00 - 4.00 k/uL [facility] Lymphocytes/100 WBC (Bld) 26.0 % [facility] MCH (RBC) [Entitic mass] 29.4 pg 26.0 - 34.0 pg [facility] MCHC (RBC) [Mass/Vol] 33.2 g/dL 30.5 - 36.0 g/dL [facility] MCV (RBC) [Entitic vol] 88.4 fL 80.0 - 100.0 fL [facility] Monocytes (Bld) [#/Vol] 0.33 10*3/uL <0.87 k/uL [facility] Monocytes/100 WBC (Bld) 7.4 % [facility] Neutrophils (Bld) [#/Vol] 2.85 10*3/uL 1.45 - 7.50 k/uL [facility] Neutrophils/100 WBC (Bld) 63.8 % [facility] Nucleated RBC (Bld) [#/Vol] <0.01 k/uL [facility] Nucleated RBC/100 WBC (Bld) [Ratio] 0.0 /100 WBC [facility] Platelet mean volume (Bld) [Entitic vol] 9.4 fL 9.0 - 12.7 fL [facility] Platelets (Bld) [#/Vol] 216 10*3/uL 150 - 400 k/uL [facility] RBC (Bld) [#/Vol] 4.49 10*6/uL 3.90 - 5.2 0 m/uL [facility] WBC (Bld) [#/Vol] 4.47 10*3/uL 3.70 - 11. 00 k/uL [facility] Comprehensive metabolic 2000 panelon 02-27-2023 Albumin [Mass/Vol] 4.2 g/dL 3.9 - 4.9 g/dL [facility] ALP [Catalytic activity/Vol] 92 U/L 34 - 123 U/L [facility] ALT [Catalytic activity/Vol] 17 U/L 7 - 38 U/L [facility] Anion gap [Moles/Vol] 10 mmol/L 9 - 18 mmol/L [facility] AST [Catalytic activity/Vol] 15 U/L 13 - 35 U/L [facility] Bilirubin [Mass/Vol] 0.3 mg/dL 0.2 - 1 .3 mg/dL [facility] Calcium [Mass/Vol] 10.0 mg/dL 8.5 - 10. 2 mg/dL [facility] Chloride [Moles/Vol] 101 mmol/L 97 - 10 5 mmol/L [facility] CO2 [Moles/Vol] 27 mmol/L 22 - 30 mmol/L [facility] Creatinine [Mass/Vol] 0.97 mg/dL High 0.58 - 0.96 mg/dL [facility] Estimated Glomerular Filtration Rate 60 mL/min/1.73m >=60 mL/min/1.73m [facility] Glucose [Mass/Vol] 92 mg/dL 74 - 99 mg/dL [facility] Potassium [Moles/Vol] 4.6 mmol/L 3.7 - 5.1 mmol/L [facility] Protein [Mass/Vol] 6.3 g/dL 6.3 - 8.0 g/dL [facility] Sodium [Moles/Vol] 138 mmol/L 136 - 144 mmol/L [facility] Urea nitrogen [Mass/Vol] 15 mg/dL 7 - 21 mg/dL [facility] CNPLucero 02-21-2023 CNPN Telephone ([facility] KEMAL CANTU ([id number]) 1945 F Date Time Provider Department 02/21/23 MARCO HERNANDEZ During your visit today, we recorded the following information about you: RAKEL Maldonado 02/21/2023 3:24 PM Signed TOTAL JOINT COMPLETE CARE PROGRAM PRE-OPERATIVE TEACHING Service Date: 02/21/2023 Service Time: 3:10 PM Date of : 1945 Gender: female Date of Surgery: 03/15/23 Procedure: Right Total Hip Replacement Complete Care Program was discussed with the patient: Lead Refiner Identification: Patient identified a point of care technician to help when discharged to home: son coming out from [place] on 03/18/23 , other son local Home Environment: Home Layout: 2 story, Entry Steps: 6 with rail , Bedroom Location: 1st floor, Bathroom Location: 1st floor, and walk in shower. Pt owns cane, walker, shower chair and grab bars, raised toilet seat. Discussed with patient importance of attending joint education class and provided date and times of class: YES had both TKA. Patient received Joint Education Binder: Yes Patient plans discharge to go to her [facility] local until her other son flys in to assist her on 03/18. Discussed medicare guidelines and SNF, pt unaware that medicare did not cover SNF and would have preferred to have surgery lining up with her son coming into town to assist. SIGNATURE: RAKEL Maldonado PATIENT NAME: Kemal Cantu DATE: February 21, 2023 TIME: 3:10 PM Allergies As of Date: 02/21/2023 Noted Allergy Reaction BACITRACIN (BULK) 02/07/2019 4 - Hives CODEINE 02/07/2019 16 - Unknown DUST MITES 01/23/2020 14 - Other: See Comments GENTAMICIN 11/30/2021 7 - Swelling Comments: redness of eye watery and itching MOLD 01/23/2020 16 - Unknown SULFA (SULFONAMIDE ANTIBIOTICS) 02/07/2019 14 - Other: See Comments Comments: redness SULFABENZAMIDE 11/30/2021 4 - Hives TREE POLLEN-RED MAPLE 02/16/2021 12 - Shortness of Breath Date Reviewed: 01/26/2023 Reviewed by: Nadia Diamond RN - Fully Assessed Reason for Visit: Pre-Op Teaching [134] Prescriptions as of 02/21/2023 - metFORMIN (GLUCOPHAGE) 1,000 mg tablet Take 1 tablet by mouth daily with breakfast. - buPROPion SR (ZYBAN SR; WELLBUTRIN SR) 150 mg 12 hr tablet take 1 tablet by mouth once daily - Magnesium Oxide 500 mg tab Take by mouth once daily. - pramipexole (MIRAPEX) 0.125 mg tablet Take 1 tablet by mouth four times daily. - LUMIGAN 0.01 % drop ophthalmic drops instill 1 drop into both eyes once daily at bedtime - fluticasone (FLONASE) 50 mcg/actuation nasal spray instill 2 sprays into each nostril once daily - gabapentin enacarbil (HORIZANT) 300 mg TbER Take 3 tablets by mouth once daily. Take one tablet at 2pm and two tablets at 5pm - omeprazole (PRILOSEC) 40 mg capsule take 1 capsule by mouth twice a day - atorvastatin (LIPITOR) 10 mg tablet Take 1 tablet by mouth once daily. - levothyroxine (SYNTHROID) 75 mcg tablet take 1 tablet by mouth once daily ON AN EMPTY STOMACH - Lancets lancets Test blood sugar(s) 1 times daily. Dx: Type 2 DM - Controlled E11.9 Insulin: No - clonazePAM (KLONOPIN) 0.5 mg tablet Take 1/2 to 1 tablet at bedtime as needed. - blood sugar diagnostic (BLOOD GLUCOSE TEST) test strip Test blood sugar(s) 2 times daily. Dx: Type 2 DM - Controlled E11.9 Insulin: No - semaglutide (OZEMPIC) 1 mg/dose (2 mg/1.5 mL) pen Inject 1 mg subcutaneously one time a week. - montelukast (SINGULAIR) 10 mg tablet Take 1 tablet by mouth daily at bedtime. - valsartan (DIOVAN) 320 mg tablet Take 1 tablet by mouth once daily. - ketoconazole (NIZORAL) 2 % cream Apply to affected area once daily. Used for fungal skin fold rashes - ubidecarenone (COENZYME Q10) 100 mg tab Take 200 mg by mouth once daily. - simethicone (GAS-X ORAL) Take 125 mg by mouth twice daily. - multivit,thx,calcium, iron,mins (MULTIVITAMIN AND MINERAL ORAL) Take by mouth. - vitamin K2 100 mcg cap Take 100 mcg by mouth. - Zinc 50 mg tab Take 50 mg by mouth. - amLODIPine (NORVASC) 2.5 mg tablet Take 2.5 mg by mouth once daily. - conjugated estrogens (PREMARIN) vaginal cream Use 0.5 g vaginally two times a week. - metoprolol tartrate, short acting, (LOPRESSOR) 50 mg tablet Take 50 mg by mouth once daily. - Bifidobacterium infantis (ALIGN ORAL) Take 1 tablet by mouth once daily. - LOW-DOSE ASPIRIN ORAL Take 81 mg by mouth once daily. - blood sugar diagnostic ([employer] ULTRA TEST) test strip Test blood sugar once a day DX: E11.9 - diclofenac sodium (VOLTAREN) 1 % topical gel Apply 2 g to affected area four times daily. - amoxicillin (POLYMOX, AMOXIL) 500 mg capsule Take 500 mg by mouth. Take 4 capsules 1 hour before dental procedures. - ascorbic acid, vitamin C, (VITAMIN C) 250 mg tablet Take 250 mg by mouth once daily. - ferrous sulfate EC 324 mg (65 mg iron) T (more content not included)... Normal [facility] SCREENINGon 01-10-2023 [facility] XR HIP GENERAL 3V PELV/AP/LA T RIGHTon 01-10-2023 [facility] Basic metabolic 2000 panelon 08-18-2022 Anion gap [Moles/Vol] 10 mmol/L 9 - 18 mmol/L [facility] Calcium [Mass/Vol] 9.7 mg/dL 8.5 - 10. 2 mg/dL [facility] Chloride [Moles/Vol] 102 mmol/L 97 - 10 5 mmol/L [facility] CO2 [Moles/Vol] 27 mmol/L 22 - 30 mmol/L [facility] Creatinine [Mass/Vol] 0.90 mg/dL 0.58 - 0.96 mg/dL [facility] Estimated Glomerular Filtration Rate 66 mL/min/1.73m >=60 mL/min/1.73m [facility] Glucose [Mass/Vol] 100 mg/dL High 74 - 99 mg/dL [facility] Potassium [Moles/Vol] 4.3 mmol/L 3.7 - 5.1 mmol/L [facility] Sodium [Moles/Vol] 139 mmol/L 136 - 144 mmol/L [facility] Urea nitrogen [Mass/Vol] 14 mg/dL 7 - 21 mg/dL [facility] HbA1c (Bld)on 08-18-2022 Average glucose Estimated from glycated hemoglobin (Bld) [Mass/Vol] 114 mg/dL [facility] HbA1c (Bld) [Mass fraction] 5.6 % 4.3 - 5.6 % [facility] TSH BLDon 08-18-2022 TSH Qn 2.970 m[IU]/L 0.270 - 4.200 mIU/L [facility] CBC W Auto Differential pane l (Bld)on 08-17-2022 Basophils (Bld) [#/Vol] 0.03 10*3/uL <0.11 k/uL [facility] Basophils/100 WBC (Bld) 0.6 % [facility] Differential cell count method Nom (Bld) Auto [facility] Eosinophils (Bld) [#/Vol] 0.14 10*3/uL <0.46 k/uL [facility] Eosinophils/100 WBC (Bld) 2.6 % [facility] Erythrocyte distribution width (RBC) [Ratio] 14.2 % 11.5 - 15.0 % [facility] Hematocrit (Bld) [Volume fraction] 40.8 % 36.0 - 46.0 % [facility] Hemoglobin (Bld) [Mass/Vol] 13.1 g/dL 11.5 - 15.5 g/dL [facility] Immature granulocytes (Bld) [#/Vol] <0.10 k/uL [facility] Immature granulocytes/100 WBC (Bld) 0.2 % [facility] Lymphocytes (Bld) [#/Vol] 1.26 10*3/uL 1.00 - 4.00 k/uL [facility] Lymphocytes/100 WBC (Bld) 23.7 % [facility] MCH (RBC) [Entitic mass] 28.4 pg 26.0 - 34.0 pg [facility] MCHC (RBC) [Mass/Vol] 32.1 g/dL 30.5 - 36.0 g/dL [facility] MCV (RBC) [Entitic vol] 88.3 fL 80.0 - 100.0 fL [facility] Monocytes (Bld) [#/Vol] 0.40 10*3/uL <0.87 k/uL [facility] Monocytes/100 WBC (Bld) 7.5 % [facility] Neutrophils (Bld) [#/Vol] 3.48 10*3/uL 1.45 - 7.50 k/uL [facility] Neutrophils/100 WBC (Bld) 65.4 % [facility] Nucleated RBC (Bld) [#/Vol] <0.01 k/uL [facility] Nucleated RBC/100 WBC (Bld) [Ratio] 0.0 /100 WBC [facility] Platelet mean volume (Bld) [Entitic vol] 10.4 fL 9.0 - 12.7 fL [facility] Platelets (Bld) [#/Vol] 232 10*3/uL 150 - 400 k/uL [facility] RBC (Bld) [#/Vol] 4.62 10*6/uL 3.90 - 5.2 0 m/uL [facility] WBC (Bld) [#/Vol] 5.32 10*3/uL 3.70 - 11. 00 k/uL [facility] UA DIP, URINE (POC)on 2021 BILIRUBIN UA (POCT) Negative Negative [facility] CLARITY UA (POCT) Clear [facility] COLOR UA (POCT) Yellow [facility] GLUCOSE UA (POCT) Negative Negative mg/dL [facility] HEMOGLOBIN/BLOOD UA (POCT) Negative Negative [facility] KETONE UA (POCT) Negative Negative mg/dL [facility] LEUKOCYTES UA (POCT) Small Abnormal Negative [facility] NITRITE UA (POCT) Negative Negative [facility] PH UA (POCT) 6.0 4.5 - 8.0 [facility] Protein Ql (U) Negative Negative mg/dL [facility] SPECIFIC GRAVITY UA (POCT) 1.010 1.005 - 1.030 [facility] UROBILINOGEN UA (POCT) 0.2 E.U./dL Eloise l E.U./dL [facility] UA DIP B/Oon 05-02-2022 Bilirubin, Urine Negative Neg [facility] Color/Appearance yellow/clear [facility] Glucose Ql (U) Negative Neg mg/dL [facility] Hemoglobin/Blood,Ur Negative Neg [facility] Ketones Ql (U) Negative Neg [facility] Leukocytes Negative Neg [facility] Nitrite Ql (U) Negative Neg [facility] pH (U) 6.5 [pH] 4.5 - 8.0 [facility] Protein.monoclonal (U) [Mass/Vol] Negative Neg mg/dL [facility] Specific [place], Ur 1.005 1.005 - 1.030 [facility] Urobilinogen, Urine Normal Normal ( <1.1) EU [facility] No Panel Informationon 01-03 [facility] XR Lumbar spine 3 Viewson IMPRESSION: Degenerative changes as discussed [place]: CHAR Transcribe Date/Time: Oct 04 2021 12:38P Dictated by : DEWAYNE HADDAD DO This examination was interpreted and the report reviewed and electronically signed by: DEWAYNE HADDAD DO on Oct 04 2021 12:39PM [facility] DIVISION OF RADIOLOGY * * *Final Report* * * DATE OF EXAM: Oct 04 2021 12:10PM WOX 5228 - XR LUMBAR 3V AP/LAT/L5-S1 / PROCEDURE REASON: Low back pain, unspecified back pain laterality, unspecified chronicity, unspeci * * * * Physician Interpretation * * * * LUMBAR SPINE: EXAM DATE/TIME: 10/04/2021 12:10 PM HISTORY: 76 years old Indication: Low back pain, unspecified back pain laterality, unspecified chronicity, unspecified whether sciatica present chronic lower back pain x1 year+ TECHNIQUE: Views obtained: XR LUMBAR 3V AP/LAT/L5-S1 Comparison: 09/26/2019. RESULT: Findings: Moderate disc space narrowing at all levels in the lumbar spine. Extensive degenerative changes in the posterior elements L3-S1. The vertebra are in good alignment. No fractures or dislocations are seen. Severe narrowing of the RIGHT hip joint noted. DIVISION OF RADIOLOGY Provider, [facility] Dinh campos [place] - 10/04/2021 * * *Final Report* * * DATE OF EXAM: Oct 04 2021 12:10PM WOX 5228 - XR LUMBAR 3V AP/LAT/L5-S1 / PROCEDURE REASON: Low back pain, unspecified back pain laterality, unspecified chronicity, unspeci * * * * Physician Interpretation * * * * LUMBAR SPINE: EXAM DATE/TIME: 10/04/2021 12:10 PM HISTORY: 76 years old Indication: Low back pain, unspecified back pain laterality, unspecified chronicity, unspecified whether sciatica present chronic lower back pain x1 year+ TECHNIQUE: Views obtained: XR LUMBAR 3V AP/LAT/L5-S1 Comparison: 09/26/2019. RESULT: Findings: Moderate disc space narrowing at all levels in the lumbar spine. Extensive degenerative changes in the posterior elements L3-S1. The vertebra are in good alignment. No fractures or dislocations are seen. Severe narrowing of the RIGHT hip joint noted. IMPRESSION IMPRESSION: Degenerative changes as discussed [place]: CHAR Transcribe Date/Time: Oct 04 2021 12:38P Dictated by : DEWAYNE HADDAD DO This examination was interpreted and the report reviewed and electronically signed by: DEWAYNE HADDAD DO on Oct 04 2021 12:39PM [facility] Radiology Study [facility]narrative) [facility] Lumbar [facility] 3 ViewsOrder ed By: Ccf Provider on 10-04-2021 [facility] XR Pelvis and Hip - right AP and Lateral frogon 04-13-2021 IMPRESSION: 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 [place]: CHAR Transcribe Date/Time: Apr 13 2021 11:15A Dictated by : GT TAVAREZ MD This examination was interpreted and the report reviewed and electronically signed by: GT TAVAREZ MD on Apr 13 2021 11:18AM [facility] DIVISION OF RADIOLOGY * * *Final Report* * * DATE OF EXAM: Apr 13 2021 11:12AM WOX 5352 - XR HIP 3V PELV+ AP/LAT RT / PROCEDURE REASON: Right hip pain * * * * Physician Interpretation * * * * EXAMINATION: XR HIP 3V PELV+ AP/LAT RT CLINICAL HISTORY: Diffuse right hip pain increasing over time without injury Right hip pain Technique: XR HIP 3V PELV+ AP/LAT RT -- RIGHT hip and pelvis with 3 views on 3 images Comparison: None RESULT: No acute fracture or dislocation. There is marked narrowing of the RIGHT hip joint space with RIGHT hip joint degenerative spurring. Intact SI joints and pubic symphysis. Narrowing of the LEFT hip joint space with mild LEFT acetabular spurring is also noted. Phlebolith overlie the pelvis. Vascular calcifications. Degenerative changes are evident in the included portions of the lower lumbar spine. DIVISION OF RADIOLOGY Provider, [facility] - 04/13/2021 * * *Final Report* * * DATE OF EXAM: Apr 13 2021 11:12AM WOX 5352 - XR HIP 3V PELV+ AP/LAT RT / PROCEDURE REASON: Right hip pain * * * * Physician Interpretation * * * * EXAMINATION: XR HIP 3V PELV+ AP/LAT RT CLINICAL HISTORY: Diffuse right hip pain increasing over time without injury Right hip pain Technique: XR HIP 3V PELV+ AP/LAT RT -- RIGHT hip and pelvis with 3 views on 3 images Comparison: None RESULT: No acute fracture or dislocation. There is marked narrowing of the RIGHT hip joint space with RIGHT hip joint degenerative spurring. Intact SI joints and pubic symphysis. Narrowing of the LEFT hip joint space with mild LEFT acetabular spurring is also noted. Phlebolith overlie the pelvis. Vascular calcifications. Degenerative changes are evident in the included portions of the lower lumbar spine. IMPRESSION IMPRESSION: 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 [place] Transcribe Date/Time: Apr 13 2021 11:15A Dictated by : GT TAVAREZ MD This examination was interpreted and the report reviewed and electronically signed by: GT TAVAREZ MD on Apr 13 2021 11:18AM [facility] Radiology Study observation (narrative) Zane june [facility] XR Pelvis and Hip - right AP and Lateral frogOrdered By: Ccf Provider on 04-13-2021 [facility] ACT,Whole Bloodon 03-03-2021 ACT,Whole Blood 202 s High 90-134 [facility] Comment on above: Result Comment: ACTB O Performed by [employer] ID: [id number] [place], [place] ACT testing is not intended for patients taking aprotonin, patients with hematocrits of <20% or >55%, patients using other types of anticoagulation medications, and patients with Lupus Anticoagulant. Performed By: #### A CTBO #### [facility] [address] [place] [address] ACT,Whole Blood 272 s High 90-134 [facility] Comment on above: Result Comment: ACTB O Performed by [employer] ID: [id number] [place], [place] ACT testing is not intended for patients taking aprotonin, patients with hematocrits of <20% or >55%, patients using other types of anticoagulation medications, and patients with Lupus Anticoagulant. Performed By: #### B GLU #### [facility] [address] [address] Activated clotting timeOrder ed By: Fabian Lynch on 03-03-2021 Activated Clotting Time 272 s High 90 - 134 s [facility] Work Phone: Comment on above: ACTBO Performed by [employer] Elite[employer]IA ID: [id number] [place], [place] ACT testing is not intended for patients taking aprotonin, patients with hematocrits of <20% or >55%, patients using other types of anticoagulation medications, and patients with Lupus Anticoagulant. Activated Clotting Time 202 s High 90 - 134 s [facility] Work Phone: Comment on above: ACTBO Performed by [employer] ID: [id number] [place], [place] ACT testing is not intended for patients taking aprotonin, patients with hematocrits of <20% or >55%, patients using other types of anticoagulation medications, and patients with Lupus Anticoagulant. Interpretation and review of laboratory results Abnormal [facility] Work Phone: Test Performed by [employer], [address] [place] [phone] [facility] Work Phone: [facility] Work Phone: CBCOrdered By: Sima Man on 03-03-2021 Hemoglobin.gastrointest inal spec 1 Ql (Stl) 12.8 g/dL 11.7 - 16.0 g/dL [facility] Work Phone: MCHC (RBC) [Mass/Vol] 34.0 % 32.0 - 36.0 % [facility] Work Phone: Platelet distribution width (Bld) [Ratio] 14.1 % 11.5 - 14.5 % [facility] Work Phone: Comp Metabolic Panelon 03-03 ALT [Catalytic activity/Vol] 78 U/L High 0-34 [facility] Comment on above: Result Comment: The ALT test is performed by an updated assay method. Please note that the reference intervals have been changed and are now sex specific. Performed By: #### B GLU #### [place] [address] [place], [place] Calcium [Mass/Vol] 9.3 mg/dL Normal 8.4-10.4 [facility] Comment on above: Performed By: #### B GLU #### [place] [address] [address] [place], [place] Glucose [Mass/Vol] 147 mg/dL High 70-100 [facility] Comment on above: Performed By: #### B GLU #### [place] [address] [address] [place], [place] Urea nitrogen [Mass/Vol] 21 mg/dL High 7-20 [facility] Comment on above: Performed By: #### B GLU #### [place] [address] [place], [place] ALP [Catalytic activity/Vol] 88 U/L Normal 38-126 [facility] Comment on above: Performed By: #### B GLU #### [place] [address] [address] [place], [place] Anion gap [Moles/Vol] 5 mmol/L Normal 3-13 [facility] Comment on above: Performed By: #### B GLU #### [facility] [address] [place], [place] AST [Catalytic activity/Vol] 60 U/L High 15-46 [facility] Comment on above: Performed By: #### B GLU #### [place] [address] [address] [place], [place] Bilirubin [Mass/Vol] 0.5 mg/dL Normal 0.2-1.3 [facility] Comment on above: Performed By: #### B GLU #### [facility] [address] [place], [place] CO2 [Moles/Vol] 27 mmol/L Normal 22-30 [facility] Comment on above: Performed By: #### B GLU #### [facility] [address] [place], [place] Creatinine [Mass/Vol] 0.97 mg/dL Normal 0.52-1.25 [facility] Comment on above: Performed By: #### B GLU #### [place] [address] [address] [place], [place] GFR/1.73 sq M.predicted among blacks MDRD (S/P/Bld) [Vol rate/Area] 66.0 mL/min/{1.73_m2} Normal >60 [facility] Comment on above: Performed By: #### B GLU #### [place] [address] [place], [place] GFR/1.73 sq M.predicted among non-blacks MDRD (S/P/Bld) [Vol rate/Area] 57.0 mL/min/{1.73_m2} Abnormal >60 [facility] Comment on above: Result Comment: KDIG O guidelines provide the following GFR categories: Stage GFR(ml/min/1.73 m2) Terms G1 >=90 Normal or high G2 60-89 Mildly decreased* G3a 45-59 Mildly to moderately decreased G3b 30-44 Moderately to severely decreased G4 15-29 Severely decreased G5 <15 Kidney failure *Relative to young adult level. In the absence of evidence of kidney damage, neither GFR category G1 nor G2 fulfill the criteria for CKD. The CKD-EPI equation is validated in individuals 18 years of age and older. Currently the best equation for estimating glomerular filtration rate (GFR) from serum creatinine in children is the Bedside Serna equation. It is less accurate in patients with extremes of muscle mass, restriction of dietary protein, ingestion of creatine, extra-renal metabolism of creatinine, or treatment with medications that affect renal tubular creatinine secretion. Performed By: #### B GLU #### [place] [address] [address] [place], [place] Protein [Mass/Vol] 6.2 g/dL Low 6.3-8.2 [facility] Comment on above: Performed By: #### B GLU #### [facility] [address] [place], [place] Chloride [Moles/Vol] 101 mmol/L Normal 98-107 [facility] Comment on above: Performed By: #### B GLU #### [facility] [address] [place], [place] Potassium [Moles/Vol] 4.2 mmol/L Normal 3.5-5.1 [facility] Comment on above: Performed By: #### B GLU #### [facility] [address] [place], [place] Sodium [Moles/Vol] 133 mmol/L Low 135-145 [facility] Comment on above: Performed By: #### B GLU #### [place] [address] [address] [place], [place] Albumin [Mass/Vol] 3.5 g/dL Normal 3.5-5.0 [facility] Comment on above: Performed By: #### B GLU #### [facility] [address] [place], [place] Comprehensive Metabolic Pane lOrdered By: Sima Man on 03-03-2021 Albumin [Mass/Vol] 3.5 g/dL 3.5 - 5.0 g/dL [facility] Work Phone: ALP (Bld) [Catalytic activity/Vol] 88 U/L 38 - 126 U/L [facility] Work Phone: ALT [Catalytic activity/Vol] 78 U/L High 0 - 34 U/L [facility] Work Phone: Comment on above: The ALT test is perf ormed by an updated assay method. Please note that the reference intervals have been changed and are now sex specific. Anion gap [Moles/Vol] 5 mmol/L 3 - 13 mmol/L [facility] Work Phone: AST [Catalytic activity/Vol] 60 U/L High 15 - 46 U/L [facility] Work Phone: Bilirubin [Mass/Vol] 0.5 mg/dL 0.2 - 1 .3 mg/dL [facility] Work Phone: Calcium [Mass/Vol] 9.3 mg/dL 8.4 - 10. 4 mg/dL [facility] Work Phone: Chloride [Moles/Vol] 101 mmol/L 98 - 10 7 mmol/L [facility] Work Phone: CO2 [Moles/Vol] 27 mmol/L 22 - 30 mmol/L [facility] Work Phone: Creatinine [Mass/Vol] 0.97 mg/dL 0.52 - 1.25 mg/dL [facility] Work Phone: EGFR IF NonAfrican British 57.0 mL/min Abnormal >60 [facility] Work Phone: Comment on above: KDIGO guidelines pro vide the following GFR categories: Stage GFR(ml/min/1.73 m2) Terms G1 >=90 Normal or high G2 60-89 Mildly decreased* G3a 45-59 Mildly to moderately decreased G3b 30-44 Moderately to severely decreased G4 15-29 Severely decreased G5 <15 Kidney failure *Relative to young adult level. In the absence of evidence of kidney damage, neither GFR category G1 nor G2 fulfill the criteria for CKD. The CKD-EPI equation is validated in individuals 18 years of age and older. Currently the best equation for estimating glomerular filtration rate (GFR) from serum creatinine in children is the Bedside Serna equation. It is less accurate in patients with extremes of muscle mass, restriction of dietary protein, ingestion of creatine, extra-renal metabolism of creatinine, or treatment with medications that affect renal tubular creatinine secretion. Free PSA/Total PSA [Mass fraction] 6.2 g/dL Low 6.3 - 8.2 g/dL [facility] Work Phone: GFR/1.73 sq M.predicted among blacks MDRD (S/P/Bld) [Vol rate/Area] 66.0 mL/min/{1.73_m2} >60 [facility] Work Phone: Glucose [Mass/Vol] 147 mg/dL High 70 - 100 mg/dL [facility] Work Phone: Potassium [Moles/Vol] 4.2 mmol/L 3.5 - 5.1 mmol/L [facility] Work Phone: Sodium [Moles/Vol] 133 mmol/L Low 135 - 145 mmol/L [facility] Work Phone: Urea nitrogen (BldV) [Mass/Vol] 21 mg/dL High 7 - 20 mg/dL [facility] Work Phone: Glucose,Bedsideon 03-03-2021 Glucose [Mass/Vol] 133 mg/dL High 70-100 [facility] Comment on above: Result Comment: Test performed by glucose meter. Results may be 10%-15% lower than serum/plasma values. (CLIA ID [id number]) Performed By: #### B GLU #### [place] [address] [place], [place] Glucose [Mass/Vol] 152 mg/dL High 70-100 [facility] Comment on above: Result Comment: Test performed by glucose meter. Results may be 10%-15% lower than serum/plasma values. (CLIA ID [id number]) Performed By: #### B GLU #### [facility] [employer] [place] [place], [place] Hemogramon 03-03-2021 Erythrocyte distribution width (RBC) [Ratio] 14.1 % Normal 11.5-14.5 [facility] Comment on above: Performed By: #### B GLU #### [place] [address] [place], [place] Hemoglobin (Bld) [Mass/Vol] 12.8 g/dL Normal 11.7-16.0 [facility] Comment on above: Performed By: #### B GLU #### [place] [address] [address] [place], [place] MCHC 34.0 % Normal 32.0-36.0 [facility] Comment on above: Performed By: #### B GLU #### [place] [address] [place], [place] HemogramOrdered By: Sima Man on 03-03-2021 Hematocrit (Bld) [Volume fraction] 37.6 % Normal 35.0-47.0 [facility] Work Phone: Comment on above: Performed By: #### B GLU #### [employer] [facility] [place] [address] MCH (RBC) [Entitic mass] 29.2 pg Normal 26.0-34.0 [facility] Work Phone: Comment on above: Performed By: #### B GLU #### [facility] [employer] [facility] [place] [address] MCV (RBC) [Entitic vol] 85.8 fL Normal 79.0-98.0 [facility] Work Phone: Comment on above: Performed By: #### B GLU #### [facility] [employer] [address] [address] [place] [address] Platelet mean volume (Bld) [Entitic vol] 8.2 fL Normal 7.4-10.4 [facility] Work Phone: Comment on above: Performed By: #### B GLU #### [facility] [employer] [facility] [place] [address] Platelets (Bld) [#/Vol] 202 10*3/uL Normal 140-440 [facility] Work Phone: Comment on above: Performed By: #### B GLU #### [facility] [employer] [address] [address] [place] [address] RBC (Bld) [#/Vol] 4.38 10*6/uL Normal 3.80-5.20 [facility] Work Phone: Comment on above: Performed By: #### B GLU #### [facility] [employer] [address] [address] [place] [address] WBC (Bld) [#/Vol] 6.1 10*3/uL Normal 3.6-10.7 [facility] Work Phone: Comment on above: Performed By: #### B GLU #### [facility] [employer] [facility] [place] [address] Magnesiumon 03-03-2021 Magnesium [Mass/Vol] 2.2 mg/dL Normal 1.6-2.3 [facility] Comment on above: Performed By: #### B GLU #### [facility] [place] [address] MagnesiumOrdered By: Sima Man on 03-03-2021 Magnesium [Mass/Vol] 2.2 mg/dL 1.6 - 2 .3 mg/dL [facility] Work Phone: No Panel InformationOrdered By: Sima Man on 03-03-2021 Interpretation and review of laboratory results Abnormal [facility] Work Phone: Test Performed by [employer], [address] [place] [address] [facility] Work Phone: [facility] Work Phone: POCT GlucoseOrdered By: Elena Lynch on 03-03-2021 Glucose [Mass/Vol] 133 mg/dL High 70 - 100 mg/dL [facility] Work Phone: Comment on above: Test performed by gl ucose meter. Results may be 10%-15% lower than serum/plasma values. (CLIA ID [id number]) Interpretation and review of laboratory results Abnormal [facility] Work Phone: Test Performed by [employer], [address] [place] [address] [facility] Work Phone: [facility] Work Phone: Glucose [Mass/Vol] 152 mg/dL High 70 - 100 mg/dL [facility] Work Phone: Comment on above: Test performed by gl ucose meter. Results may be 10%-15% lower than serum/plasma values. (CLIA ID [id number]) Interpretation and review of laboratory results Abnormal [facility] Work Phone: Test Performed by [employer], [address] [place] [phone] [facility] Work Phone: [facility] Work Phone: Phosphoruson 03-03-2021 Phosphate [Mass/Vol] 4.7 mg/dL High 2.5-4.5 [facility] Comment on above: Performed By: #### B GLU #### [facility] [address] [place] [address] PhosphorusOrdered By: Dennis Man on 03-03-2021 Phosphate [Mass/Vol] 4.7 mg/dL High 2.5 - 4 .5 mg/dL [facility] Work Phone: TSH without ReflexOrdered By : Mariusz Yeh on 03-03-2021 TSH Qn 3.292 u[IU]/mL 0.465 - 4.680 u[IU]/mL [facility] Work Phone: Test Performed by [facility] [employer], [facility] [place] [address] [facility] Work Phone: [facility] Work Phone: Thyroid Stim. Hormoneon 02-12 Thyroid Stim. Hormone 3.292 u[IU]/mL Normal 0.465-4.68 0 [facility] Comment on above: Performed By: #### B GLU #### [facility] [address] [place] [address] CARDIAC CATH NURSING LOGOrde red By: 3m Scanning on 03-02-2021 [facility] Work Phone: CBCOrdered By: Sima Man on 03-02-2021 Hematocrit (Bld) [Volume fraction] 38.5 % 35.0 - 47.0 % [facility] Work Phone: Hemoglobin.gastrointest inal spec 1 Ql (Stl) 13.0 g/dL 11.7 - 16.0 g/dL [facility] Work Phone: MCH (RBC) [Entitic mass] 29.1 pg 26.0 - 34.0 pg [facility] Work Phone: MCHC (RBC) [Mass/Vol] 33.8 % 32.0 - 36.0 % [facility] Work Phone: MCV (RBC) [Entitic vol] 86.1 fL 79.0 - 98.0 fL [facility] Work Phone: Platelet distribution width (Bld) [Ratio] 14.1 % 11.5 - 14.5 % [facility] Work Phone: Platelet mean volume (Bld) [Entitic vol] 8.2 fL 7.4 - 10.4 fL [facility] Work Phone: Platelets (Bld) [#/Vol] 221 10*3/uL 140 - 440 10*3/uL [facility] Work Phone: RBC (Bld) [#/Vol] 4.47 10*6/uL 3.80 - 5.2 0 10*6/uL [facility] Work Phone: WBC (Bld) [#/Vol] 6.6 10*3/uL 3.6 - 10.7 10*3/uL [facility] Work Phone: Test Performed by [employer], [address] [place] [address] [facility] Work Phone: [facility] Work Phone: CK WITH REFLEX CK-MBOrdered By: Sima Man on 03-02-2021 CK [Catalytic activity/Vol] 45 U/L 30 - 170 U/L [employer] Phone: CKMB Commenton 03-02-2021 [facility] Comment see below Normal [employer] Comment on above: Result Comment: Tota l CK less than 65 U/L. Fractionation not indicated. Performed By: #### B GLU #### [employer] [address] [place] [phone] CKMB CommentOrdered By: Hui Man on 03-02-2021 [facility] Comment see below [facility] Work Phone: Comment on above: Total CK less than 6 5 U/L. Fractionation not indicated. CK[facility] Screenon 03-02-2021 CK [Catalytic activity/Vol] 45 U/L Normal 30-170 [employer] [facility] Comment on above: Performed By: #### M BC3, CKMBS #### [employer] [facility] [address] [place] [address] Catheterization and angiogra phy procedure details panelOrdered By: Paulette Cobos on 03-02-2021 [facility] -------- CARDIAC CATHETERIZATION Patient: Kemal Cantu Procedure Date: 03/02/2021 : 1945 Age: 75 Gender: F Patient Type: Inpatient Procedure physician: Paulette Cobos MD Fellow: Referring Physician: Paulette Cobos MD -------- INDICATIONS: Atherosclerotic coronary artery disease. Recent cath/staged procedure. Angina-CCS class III (marked limitation of ordina ry activity) -------- Procedures performed: # Left heart catheterization. # Percutaneous intervention on the 90% stenosis in the mid right coronary. Rotational atherectomy. Interventional IVUS examination. Balloon angioplasty. Stent placement. Interventional IVUS examination. -------- SUMMARY: 75yo female diabetic who presented to [facility] with escalating angina. Cath at [facility] showed severely calcified focal steno sis of the mid RCA. 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 P CI of RCA unsuccessful due to inability to cross lesion with balloon. Pt transferred to [facility] for staged PCI of the RCA with atherectomy. Pt amelia ded with aspirin and brilinta. IMPRESSIONS: 1. Successful IVUS-guided PCI of the focal calcified midRCA with CSI orbital atherectomy, PTCA, and deployment of the 4.0x28mm Xience LORI. 2. Mildly elevated LVEDP. RECOMMENDATIONS: 1. Patient management should include aggressive risk factor modification. 2. Patient management should include aggressive medical management of CAD and a cardiac rehabilitation program. The patient was counseled regarding the importance of adherence to the prescribed antiplatelet therapy and a low fat diet. 3. Ticagrelor (Brilinta), 90mgPObid, for 12 mon, minimum. 4. Aspirin, 81mgPOdaily, indefinitely. -------- HISTORY: Risk factors: Diabetes mellitus; on therapy with oral hypoglycemics. Obese. Hyperlipidemia. Family history is significant for coronary artery disease. -------- LABS, PRIOR TESTS, PROCEDURES, and SURGERY: Catheterization with coronary intervention (03/02/2021). -------- PROCEDURE IN DETAIL: Study status: Cardiac cath: urgent. Consent: The risks, benefits, and alternatives to the procedure and sedation were explained to the patient and informed consent was obtained. Fluoroscop y time: Fluoroscopy time: 12 min. Fluoroscopy dose: Fluoroscopy dose: 113.8 cGy. Location: Catheterization laboratory. PROCEDURE: 1. Initial setup. The patient was brought to the laboratory. A baseline ECG was recorded. Intravenous access was obtained. Surface ECG leads, blood pressure measurements, and pulse oximetric signals were monitored. 2. Skin preparation. The planned puncture sites were prepped and draped in the usual sterile manner. 3. Supplemental oxygen. Oxygen, 3 L/min was administered throughout the procedure. 4. Local anesthesia. 1% lidocaine was administered to the right radial artery access site. 5. Right radial artery access. A 6Fr/10cm Glidesheath Slender sheath was advanced into the vessel. 6. Left heart catheterization. A 6Fr x 100cm Launcher JR4 catheter was advanced across the aortic valve to the left ventricle under fluoroscopic guidance. Resting hemodynamics were obtained. 7. A stent was placed in the stenosis in the proximal right coronary artery. See detailed description below (1st lesion intervention). 8. ACT was 202 sec. 9. Right radial artery hemostasis. The sheath was removed. Vasc Band compression was applied. Hemostasis was successfully obtained. 1st lesion intervention: Percutaneous intervention on the 90% stenosis in the mid right coronary. 1. Guider placement: a 6Fr x 100cm Launcher JR4 guiding catheter was placed in the ostium of the right coronary artery. 2. A 0.014/325cm Viper Wire Advance Flex Tip wire was successfully placed across the lesion in the right coronary artery. 3. Successful orbital atherectomy. 2 passes were made and a 1.25mm DiamondBack 360 crown was used. 4. A 0.014/182cm Luge Mod Support J-tip wire was successfully placed across the lesion in the right coronary artery. 5. Pre-intervention intravascular ultrasound evaluation, using a .014 [facility] [place] [facility] [place] catheter. Findings: extensive, 4-quadrant calcification; concentric plaque. 6. Balloon angioplasty. A 4 mm (D) x 12 mm (L), NC [employer] (more content not included)... [facility] Work Phone: Nicholas, [facility] Incoming Cardiology Results From [facility] - 03/02/2021 5:25 PM EDT [facility] CARDIOVASCULAR GAUSE -------- CARDIAC CATHETERIZATION Patient: Kemal Cantu Procedure Date: 03/02/2021 : 1945 Age: 75 Gender: F Patient Type: Inpatient Procedure physician: Paulette Cobos MD Fellow: Referring Physician: Paulette Cobos MD -------- INDICATIONS: Atherosclerotic coronary artery disease. Recent cath/staged procedure. Angina-CCS class III (marked limitation of ordina ry activity) -------- Procedures performed: # Left heart catheterization. # Percutaneous intervention on the 90% stenosis in the mid right coronary. Rotational atherectomy. Interventional IVUS examination. Balloon angioplasty. Stent placement. Interventional IVUS examination. -------- SUMMARY: 75yo female diabetic who presented to [facility] with escalating angina. Cath at [facility] showed severely calcified focal steno sis of the mid RCA. 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 P CI of RCA unsuccessful due to inability to cross lesion with balloon. Pt transferred to [facility] for staged PCI of the RCA with atherectomy. Pt amelia ded with aspirin and brilinta. IMPRESSIONS: 1. Successful IVUS-guided PCI of the focal calcified midRCA with CSI orbital atherectomy, PTCA, and deployment of the 4.0x28mm Xience LORI. 2. Mildly elevated LVEDP. RECOMMENDATIONS: 1. Patient management should include aggressive risk factor modification. 2. Patient management should include aggressive medical management of CAD and a cardiac rehabilitation program. The patient was counseled regarding the importance of adherence to the prescribed antiplatelet therapy and a low fat diet. 3. Ticagrelor (Brilinta), 90mgPObid, for 12 mon, minimum. 4. Aspirin, 81mgPOdaily, indefinitely. -------- HISTORY: Risk factors: Diabetes mellitus; on therapy with oral hypoglycemics. Obese. Hyperlipidemia. Family history is significant for coronary artery disease. -------- LABS, PRIOR TESTS, PROCEDURES, and SURGERY: Catheterization with coronary intervention (03/02/2021). -------- PROCEDURE IN DETAIL: Study status: Cardiac cath: urgent. Consent: The risks, benefits, and alternatives to the procedure and sedation were explained to the patient and informed consent was obtained. Fluoroscop y time: Fluoroscopy time: 12 min. Fluoroscopy dose: Fluoroscopy dose: 113.8 cGy. Location: Catheterization laboratory. PROCEDURE: 1. Initial setup. The patient was brought to the laboratory. A baseline ECG was recorded. Intravenous access was obtained. Surface ECG leads, blood pressure measurements, and pulse oximetric signals were monitored. 2. Skin preparation. The planned puncture sites were prepped and draped in the usual sterile manner. 3. Supplemental oxygen. Oxygen, 3 L/min was administered throughout the procedure. 4. Local anesthesia. 1% lidocaine was administered to the right radial artery access site. 5. Right radial artery access. A 6Fr/10cm Glidesheath Slender sheath was advanced into the vessel. 6. Left heart catheterization. A 6Fr x 100cm Launcher JR4 catheter was advanced across the aortic valve to the left ventricle under fluoroscopic guidance. Resting hemodynamics were obtained. 7. A stent was placed in the stenosis in the proximal right coronary artery. See detailed description below (1st lesion intervention). 8. ACT was 202 sec. 9. Right radial artery hemostasis. The sheath was removed. Vasc Band compression was applied. Hemostasis was successfully obtained. 1st lesion intervention: Percutaneous intervention on the 90% stenosis in the mid right coronary. 1. Guider placement: a 6Fr x 100cm Launcher JR4 guiding catheter was placed in the ostium of the right coronary artery. 2. A 0.014/325cm Viper Wire Advance Flex Tip wire was successfully placed across the lesion in the right coronary artery. 3. Successful orbital atherectomy. 2 passes were made and a 1.25mm DiamondBack 360 crown was used. 4. A 0.014/182cm Luge Mod Support J-tip wire was successfully placed across the lesion in the right coronary artery. 5. Pre-intervention intravascular ultrasound evaluation, using a .014 [facility] [place] [facility] [place] catheter. Findings: extensive, 4-quadrant calcification; concentric plaque. 6. Balloon angioplasty. A 4 mm (D) x 12 mm (L), NC (more content not included)... [facility] Work Phone: [facility] Work Phone: Comp Metabolic Panelon 03-02 Potassium [Moles/Vol] 4.1 mmol/L Normal 3.5-5.1 [facility] Comment on above: Performed By: #### H EMOG, MG3, LIPD2, CMP3, PHOS3 #### [facility] [address], [place] ALP [Catalytic activity/Vol] 89 U/L Normal 38-126 [facility] Comment on above: Performed By: #### H EMOG, MG3, LIPD2, CMP3, PHOS3 #### [facility] [address] [place], [place] ALT [Catalytic activity/Vol] 77 U/L High 0-34 [facility] Comment on above: Result Comment: The ALT test is performed by an updated assay method. Please note that the reference intervals have been changed and are now sex specific. Performed By: #### H EMOG, MG3, LIPD2, CMP3, PHOS3 #### [place] [address] [place], [place] Calcium [Mass/Vol] 9.3 mg/dL Normal 8.4-10.4 [facility] Comment on above: Performed By: #### H EMOG, MG3, LIPD2, CMP3, PHOS3 #### [facility] [address] [place], [place] Glucose [Mass/Vol] 146 mg/dL High 70-100 [facility] Comment on above: Performed By: #### H EMOG, MG3, LIPD2, CMP3, PHOS3 #### [facility] [address] [place], [place] Anion gap [Moles/Vol] 6 mmol/L Normal 3-13 [facility] Comment on above: Performed By: #### H EMOG, MG3, LIPD2, CMP3, PHOS3 #### [facility] [address] [place], [place] AST [Catalytic activity/Vol] 57 U/L High 15-46 [facility] Comment on above: Performed By: #### H EMOG, MG3, LIPD2, CMP3, PHOS3 #### [facility] [address] [place], [place] Bilirubin [Mass/Vol] 0.5 mg/dL Normal 0.2-1.3 [facility] Comment on above: Performed By: #### H EMOG, MG3, LIPD2, CMP3, PHOS3 #### [address] [address] CO2 [Moles/Vol] 28 mmol/L Normal 22-30 [facility] Comment on above: Performed By: #### H EMOG, MG3, LIPD2, CMP3, PHOS3 #### [address] [address] Creatinine [Mass/Vol] 0.95 mg/dL Normal 0.52-1.25 [facility] Comment on above: Performed By: #### H EMOG, MG3, LIPD2, CMP3, PHOS3 #### [address] [address] [place] [address] GFR/1.73 sq M.predicted among blacks MDRD (S/P/Bld) [Vol rate/Area] 67.7 mL/min/{1.73_m2} Normal >60 [facility] Comment on above: Performed By: #### H EMOG, MG3, LIPD2, CMP3, PHOS3 #### [address] [address] GFR/1.73 sq M.predicted among non-blacks MDRD (S/P/Bld) [Vol rate/Area] 58.4 mL/min/{1.73_m2} Abnormal >60 [facility] Comment on above: Result Comment: KDIG O guidelines provide the following GFR categories: Stage GFR(ml/min/1.73 m2) Terms G1 >=90 Normal or high G2 60-89 Mildly decreased* G3a 45-59 Mildly to moderately decreased G3b 30-44 Moderately to severely decreased G4 15-29 Severely decreased G5 <15 Kidney failure *Relative to young adult level. In the absence of evidence of kidney damage, neither GFR category G1 nor G2 fulfill the criteria for CKD. The CKD-EPI equation is validated in individuals 18 years of age and older. Currently the best equation for estimating glomerular filtration rate (GFR) from serum creatinine in children is the Bedside Serna equation. It is less accurate in patients with extremes of muscle mass, restriction of dietary protein, ingestion of creatine, extra-renal metabolism of creatinine, or treatment with medications that affect renal tubular creatinine secretion. Performed By: #### H EMOG, MG3, LIPD2, CMP3, PHOS3 #### [facility] [address], [place] Protein [Mass/Vol] 6.2 g/dL Low 6.3-8.2 [facility] Comment on above: Performed By: #### H EMOG, MG3, LIPD2, CMP3, PHOS3 #### [place] [address] [address] [place], [place] Urea nitrogen [Mass/Vol] 18 mg/dL Normal 7-20 [facility] Comment on above: Performed By: #### H EMOG, MG3, LIPD2, CMP3, PHOS3 #### [place] [address] [address] [place], [place] Chloride [Moles/Vol] 101 mmol/L Normal 98-107 [facility] Comment on above: Performed By: #### H EMOG, MG3, LIPD2, CMP3, PHOS3 #### [place] [address] [place], [place] Sodium [Moles/Vol] 135 mmol/L Normal 135-145 [facility] Comment on above: Performed By: #### H EMOG, MG3, LIPD2, CMP3, PHOS3 #### [address] [place], [place] Albumin [Mass/Vol] 3.6 g/dL Normal 3.5-5.0 [facility] Comment on above: Performed By: #### H EMOG, MG3, LIPD2, CMP3, PHOS3 #### [place] [address] [address] [place], [place] Comprehensive Metabolic Pane lOrdered By: Sima Man on 03-02-2021 Albumin [Mass/Vol] 3.6 g/dL 3.5 - 5.0 g/dL [facility] Work Phone: ALP (Bld) [Catalytic activity/Vol] 89 U/L 38 - 126 U/L [facility] Work Phone: ALT [Catalytic activity/Vol] 77 U/L High 0 - 34 U/L [facility] Work Phone: Comment on above: The ALT test is perf ormed by an updated assay method. Please note that the reference intervals have been changed and are now sex specific. Anion gap [Moles/Vol] 6 mmol/L 3 - 13 mmol/L [facility] Work Phone: AST [Catalytic activity/Vol] 57 U/L High 15 - 46 U/L [facility] Work Phone: Bilirubin [Mass/Vol] 0.5 mg/dL 0.2 - 1 .3 mg/dL [facility] Work Phone: Calcium [Mass/Vol] 9.3 mg/dL 8.4 - 10. 4 mg/dL [facility] Work Phone: Chloride [Moles/Vol] 101 mmol/L 98 - 10 7 mmol/L [facility] Work Phone: CO2 [Moles/Vol] 28 mmol/L 22 - 30 mmol/L [facility] Work Phone: Creatinine [Mass/Vol] 0.95 mg/dL 0.52 - 1.25 mg/dL [facility] Work Phone: EGFR IF NonAfrican British 58.4 mL/min Abnormal >60 [employer] Work Phone: Comment on above: KDIGO guidelines pro vide the following GFR categories: Stage GFR(ml/min/1.73 m2) Terms G1 >=90 Normal or high G2 60-89 Mildly decreased* G3a 45-59 Mildly to moderately decreased G3b 30-44 Moderately to severely decreased G4 15-29 Severely decreased G5 <15 Kidney failure *Relative to young adult level. In the absence of evidence of kidney damage, neither GFR category G1 nor G2 fulfill the criteria for CKD. The CKD-EPI equation is validated in individuals 18 years of age and older. Currently the best equation for estimating glomerular filtration rate (GFR) from serum creatinine in children is the Bedside Serna equation. It is less accurate in patients with extremes of muscle mass, restriction of dietary protein, ingestion of creatine, extra-renal metabolism of creatinine, or treatment with medications that affect renal tubular creatinine secretion. Free PSA/Total PSA [Mass fraction] 6.2 g/dL Low 6.3 - 8.2 g/dL [facility] Work Phone: GFR/1.73 sq M.predicted among blacks MDRD (S/P/Bld) [Vol rate/Area] 67.7 mL/min/{1.73_m2} >60 [facility] Work Phone: Glucose [Mass/Vol] 146 mg/dL High 70 - 100 mg/dL [facility] Work Phone: Interpretation and review of laboratory results Abnormal [facility] Work Phone: Potassium [Moles/Vol] 4.1 mmol/L 3.5 - 5.1 mmol/L [facility] Work Phone: Sodium [Moles/Vol] 135 mmol/L 135 - 145 mmol/L [facility] Work Phone: Urea nitrogen (BldV) [Mass/Vol] 18 mg/dL 7 - 20 mg/dL [facility] Work Phone: Test Performed by [employer] [address] [facility] Work Phone: [facility] Work Phone: Diagnostic Catherizationon 0 03-02-2021 Diagnostic Catherization Patient Name: KEMAL CANTU [facility]#: [id number] 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 Recent cath/staged procedure. Angina-CCS class III (marked limitation of ordina ry activity) -------- Procedures performed: # Left heart catheterization. # Percutaneous intervention on the 90% stenosis in the mid right coronary. Rotational atherectomy. Interventional IVUS examination. Balloon angioplasty. Stent placement. Interventional IVUS examination. -------- SUMMARY: 75yo female diabetic who presented to [facility] with escalating angina. Cath at [facility] showed severely calcified focal steno sis of the mid RCA. 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 P CI of RCA unsuccessful due to inability to cross lesion with balloon. Pt transferred to [facility] for staged PCI of the RCA with atherectomy. Pt amelia ded with aspirin and brilinta. IMPRESSIONS: 1. Successful IVUS-guided PCI of the focal calcified midRCA with CSI orbital atherectomy, PTCA, and deployment of the 4.0x28mm Xience LORI. 2. Mildly elevated LVEDP. RECOMMENDATIONS: 1. Patient management should include aggressive risk factor Corporate Travel Expert Report modification. 2. Patient management should include aggressive medical management of CAD and a cardiac rehabilitation program. The patient was counseled regarding the importance of adherence to the prescribed antiplatelet therapy and a low fat diet. 3. Ticagrelor (Brilinta), 90mgPObid, for 12 mon, minimum. 4. Aspirin, 81mgPOdaily, indefinitely. -------- HISTORY: Risk factors: Diabetes mellitus; on therapy with oral hypoglycemics. Obese. Hyperlipidemia. Family history is significant for coronary artery disease. -------- LABS, PRIOR TESTS, PROCEDURES, and SURGERY: Catheterization with coronary intervention (03/02/2021). -------- PROCEDURE IN DETAIL: Study status: Cardiac cath: urgent. Consent: The risks, benefits, and alternatives to the procedure and sedation were explained to the patient and informed consent was obtained. Fluoroscop y time: Fluoroscopy time: 12 min. Fluoroscopy dose: Fluoroscopy dose: 113.8 cGy. Location: Catheterization laboratory. PROCEDURE: 1. Initial setup. The patient was brought to the laboratory. A baseline ECG was recorded. Intravenous access was obtained. Surface ECG leads, blood pressure measurements, and pulse oximetric signals were monitored. 2. Skin preparation. The planned puncture sites were prepped and draped in the usual sterile manner. 3. Supplemental oxygen. Oxygen, 3 L/min was administered throughout the procedure. 4. Local anesthesia. 1% lidocaine was administered to the right radial artery access site. 5. Right radial artery access. A 6Fr/10cm Glidesheath Slender sheath was advanced into the vessel. 6. Left heart catheterization. A 6Fr x 100cm Launcher JR4 catheter was advanced across the aortic valve to the left ventricle under fluoroscopic guidance. Resting hemodynamics were obtained. 7. A stent was placed in the stenosis in the proximal right coronary artery. See detailed description below (1st lesion intervention). 8. ACT was 202 sec. 9. Right radial artery hemostasis. The sheath was removed. Vasc Band compression was applied. Hemostasis was successfully obtained. 1st lesion intervention: Percutaneous intervention on the 90% stenosis in the mid right coronary. 1. Guider placement: a 6Fr x 100cm Launcher JR4 guiding catheter was placed in the ostium of the right coronary artery. 2. A 0.014/325cm Viper Wire Advance Flex Tip wire was successfully placed across the lesion in the right coronary artery. 3. Successful orbital atherectomy. 2 passes were made and a 1.25mm DiamondBack 360 crown was used. 4. A 0.014/182cm Luge Mod Support J-tip wire was successfully placed across the lesion in the right coronary artery. 5. Pre-intervention intravascular ultrasound evaluation, using a .[address] [facility] (more content not included)... 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: FESTUS : 1945 Requested By: SIMA MAN Order Number: [id number] Reading MD: Ruben Sargent Measurements Intervals [place] Rate: 77 P: 4 IA: 231 QRS: -35 QRSD: 144 T: 95 QT: 396 QTc: 450 Interpretive Statements Sinus rhythm Prolonged IA interval Left bundle branch block ST elevation secondary to IVCD Electronically Signed On 03-02-2021 13:01:21 EDT by Ruben PADILLA Work Phone: Nicholas, [facility] Incoming Cardiology Results From [facility] - 03/02/2021 1:02 PM EDT [employer] Test Date: 2021-03-01 Pat Name: KEMAL CANTU Department: 1[facility] Room: [facility] Gender: F Administrative Assistant Data Entry: FESTUS : 1945 Requested By: SIMA MAN Order Number: [id number] Reading MD: Ruben Sargent Measurements Intervals [place] Rate: 77 P: 4 IA: 231 QRS: -35 QRSD: 144 T: 95 QT: 396 QTc: 450 Interpretive Statements Sinus rhythm Prolonged IA interval Left bundle branch block ST elevation secondary to IVCD Electronically Signed On 03-02-2021 13:01:21 EDT by Ruben Sargent [facility] Work Phone: [facility] Work Phone: Glucose,Bedsideon 03-02-2021 Glucose [Mass/Vol] 146 mg/dL High 70100 [facility] Comment on above: Result Comment: Test performed by glucose meter. Results may be 10%-15% lower than serum/plasma values. (CLIA ID [id number]) Performed By: #### B GLU #### [employer] [address] [place] [address] Glucose [Mass/Vol] 124 mg/dL High 70100 [facility] Comment on above: Result Comment: Test performed by glucose meter. Results may be 10%-15% lower than serum/plasma values. (CLIA ID [id number]) Performed By: #### B GLU #### [facility] [address] [place] [address] Glucose [Mass/Vol] 131 mg/dL High 70100 [facility] Comment on above: Result Comment: Test performed by glucose meter. Results may be 10%-15% lower than serum/plasma values. (CLIA ID [id number]) Performed By: #### B GLU #### [facility] [address] [place] [address] Glucose [Mass/Vol] 164 mg/dL High 70-100 [facility] Comment on above: Result Comment: Test performed by glucose meter. Results may be 10%-15% lower than serum/plasma values. (CLIA ID [id number]) Performed By: #### B GLU #### [address] [address] [place], [place] Glucose [Mass/Vol] 188 mg/dL High 70-100 [facility] Comment on above: Result Comment: Test performed by glucose meter. Results may be 10%-15% lower than serum/plasma values. (CLIA ID [id number]) Performed By: #### B GLU #### [address] Hemogramon 03-02-2021 Erythrocyte distribution width (RBC) [Ratio] 14.1 % Normal 11.5-14.5 [facility] Comment on above: Performed By: #### H EMOG, MG3, LIPD2, CMP3, PHOS3 #### [address] Hematocrit (Bld) [Volume fraction] 38.5 % Normal 35.0-47.0 [facility] Comment on above: Performed By: #### H EMOG, MG3, LIPD2, CMP3, PHOS3 #### [address] Hemoglobin (Bld) [Mass/Vol] 13.0 g/dL Normal 11.7-16.0 [facility] Comment on above: Performed By: #### H EMOG, MG3, LIPD2, CMP3, PHOS3 #### [address] MCH (RBC) [Entitic mass] 29.1 pg Normal 26.0-34.0 [facility] Comment on above: Performed By: #### H EMOG, MG3, LIPD2, CMP3, PHOS3 #### [address] MCHC 33.8 % Normal 32.0-36.0 [facility] Comment on above: Performed By: #### H EMOG, MG3, LIPD2, CMP3, PHOS3 #### [address] [place] [address] [place], [place] MCV (RBC) [Entitic vol] 86.1 fL Normal 79.0-98.0 [facility] Comment on above: Performed By: #### H EMOG, MG3, LIPD2, CMP3, PHOS3 #### [facility] [address] [place], [place] Platelet mean volume (Bld) [Entitic vol] 8.2 fL Normal 7.4-10.4 [facility] Comment on above: Performed By: #### H EMOG, MG3, LIPD2, CMP3, PHOS3 #### [place] [address] [address] [address] [place], [place] Platelets (Bld) [#/Vol] 221 10*3/uL Normal 140-440 [facility] Comment on above: Performed By: #### H EMOG, MG3, LIPD2, CMP3, PHOS3 #### [address] [address] [place], [place] RBC (Bld) [#/Vol] 4.47 10*6/uL Normal 3.80-5.20 [facility] Comment on above: Performed By: #### H EMOG, MG3, LIPD2, CMP3, PHOS3 #### [address] [address] [place], [place] WBC (Bld) [#/Vol] 6.6 10*3/uL Normal 3.6-10.7 [facility] Comment on above: Performed By: #### H EMOG, MG3, LIPD2, CMP3, PHOS3 #### [address] [address] [address] [place], [place] Lipid Panelon 03-02-2021 Chol/HDL 3 Normal [facility] Comment on above: Result Comment: Ref Range: < 3 Low Risk for CHD 3-6 Mod Risk for CHD > 6 High Risk for CHD Performed By: #### H EMOG, MG3, LIPD2, CMP3, PHOS3 #### [address] [address] [place], [place] Cholesterol in HDL [Mass/Vol] 45 mg/dL Normal 40-60 [facility] Comment on above: Performed By: #### H EMOG, MG3, LIPD2, CMP3, PHOS3 #### [employer] [facility] [address] [place], [place] Low Density Lipoprotein 79 mg/dL Normal <100 [facility] Comment on above: Performed By: #### H EMOG, MG3, LIPD2, CMP3, PHOS3 #### [facility] [employer] [facility] [address] [place], [place] Triglyceride [Mass/Vol] 127 mg/dL Normal <150 [facility] Comment on above: Performed By: #### H EMOG, MG3, LIPD2, CMP3, PHOS3 #### [facility] [employer] [facility] [address] [place], [place] Cholesterol [Mass/Vol] 149 mg/dL Normal < 200 [facility] Comment on above: Performed By: #### H EMOG, MG3, LIPD2, CMP3, PHOS3 #### [facility] [employer] [place] [address] [address] [place], [place] Lipid panel - fastingOrdered By: Sima Man on 03-02-2021 Cholesterol [Mass/Vol] 149 mg/dL <200 [facility] Work Phone: Cholesterol in HDL [Mass/Vol] 45 mg/dL 40 - 60 mg/dL [facility] Work Phone: Cholesterol in LDL [Mass/Vol] 79 mg/dL <100 [facility] Work Phone: Cholesterol.total/Anna sterol in HDL [Mass ratio] 3 {ratio} [facility] Work Phone: Comment on above: Ref Range: < 3 Low Risk for CHD 3-6 Mod Risk for CHD > 6 High Risk for CHD Triglyceride [Mass/Vol] 127 mg/dL <150 [facility] Work Phone: Magnesiumon 03-02-2021 Magnesium [Mass/Vol] 1.8 mg/dL Normal 1.6-2.3 [facility] Comment on above: Performed By: #### H EMOG, MG3, LIPD2, CMP3, PHOS3 #### [facility] [employer] [facility] [address] [place] [id number] MagnesiumOrdered By: Sima Man on 03-02-2021 Magnesium [Mass/Vol] 1.8 mg/dL 1.6 - 2 .3 mg/dL [facility] Work Phone: No Panel InformationOrdered By: Sima Man on 03-02-2021 Test Performed by [employer], [address] [place] [id number] [facility] Work Phone: [facility] Work Phone: Test Performed by [employer], [address] [place] [address] [facility] Work Phone: [facility] Work Phone: POCT GlucoseOrdered By: Elena Lynch on 03-02-2021 Glucose [Mass/Vol] 146 mg/dL High 70 - 100 mg/dL [facility] Work Phone: Comment on above: Test performed by gl ucose meter. Results may be 10%-15% lower than serum/plasma values. (CLIA ID [id number]) Interpretation and review of laboratory results Abnormal [facility] Work Phone: Test Performed by [employer], [address] [place] [address] [facility] Work Phone: [facility] Work Phone: Glucose [Mass/Vol] 124 mg/dL High 70 - 100 mg/dL [facility] Work Phone: Comment on above: Test performed by gl ucose meter. Results may be 10%-15% lower than serum/plasma values. (CLIA ID [id number]) Interpretation and review of laboratory results Abnormal [facility] Work Phone: Test Performed by [employer], [address] [place] [address] [facility] Work Phone: [facility] Work Phone: Glucose [Mass/Vol] 131 mg/dL High 70 - 100 mg/dL [facility] Work Phone: Comment on above: Test performed by gl ucose meter. Results may be 10%-15% lower than serum/plasma values. (CLIA ID [id number]) Interpretation and review of laboratory results Abnormal [facility] Work Phone: Test Performed by [employer], [facility] [place] [address] [facility] Work Phone: [facility] Work Phone: Glucose [Mass/Vol] 164 mg/dL High 70 - 100 mg/dL [facility] Work Phone: Comment on above: Test performed by gl ucose meter. Results may be 10%-15% lower than serum/plasma values. (CLIA ID [id number]) Interpretation and review of laboratory results Abnormal [facility] Work Phone: Test Performed by [employer], [facility] [place] [address] [facility] Work Phone: [facility] Work Phone: Phosphoruson 03-02-2021 Phosphate [Mass/Vol] 4.3 mg/dL Normal 2.5-4.5 [facility] Comment on above: Performed By: #### H EMOG, MG3, LIPD2, CMP3, PHOS3 #### [employer] [facility] [place] [address] PhosphorusOrdered By: Dennis Man on 03-02-2021 Phosphate [Mass/Vol] 4.3 mg/dL 2.5 - 4 .5 mg/dL [facility] Work Phone: TroponinOrdered By: Felicita Whitman on 03-02-2021 Interpretation and review of laboratory results Abnormal [facility] Work Phone: Troponin I.cardiac [Mass/Vol] 0.098 ng/mL High 0.000 - 0.034 ng/mL [facility] Work Phone: Comment on above: . Test Performed by [employer], [facility] [place] [address] [facility] Work Phone: [facility] Work Phone: Troponin Ion 03-02-2021 Troponin I.cardiac [Mass/Vol] 0.098 ng/mL High 0.000-0.034 [facility] Comment on above: Result Comment: . Performed By: #### B GLU #### [facility] [address] [place] [address] VL Arterial Duplex US Upper Ext Righton 03-02-2021 VL Arterial Duplex US Upper Ext Right Patient Name: KEMAL CANTU Ultrasound ACCESSION EXAM DATE/TIME PROCEDURE ORDERING PROVIDER [id number] 03/02/2021 07:47 EDT VL Arterial Duplex US MD MAGDA, SIMA Upper Ext Right CPT code 81499 Reason For Exam (VL Arterial Duplex US Upper Ext Right) Concern for hematoma R wrist Report [facility] -------- Right Upper Extremity Three Affiliated Arterial Duplex Report Patient Alondra : 1945 Study 03/02/2021 Name: Kemal Sesay (75yrs) Date: Patient [id number] Age: 75 Account: [id number] ID: Gender: F Loc: BP: Ordering Physician: Sima Man Municipal Services Manager: Jyoti Gama RVT Interpreting Physician: Bahman Salamanca MD -------- Location: [facility] -------- Indications: Right wrist swelling status post radial artery access.. -------- Preliminary result was reported to Sima Man MD , by Jyoti Gama Key, [facility] [place] , on 03/02/2021 , at 07:53 AM. Correct read-back was verified. -------- Conclusions There is no evidence of stenosis, aneurysm, or injury involving the right upper extremity arteries. -------- History: Risk factors: Obese. Hyperlipidemia. Age over 75 years. -------- Study data: Right upper extremity arterial duplex. Duplex scan, grayscale 2D imaging, color Doppler imaging, and spectral Doppler analysis. Location: Bedside. Procedure: A vascular evaluation was performed with the patient in the supine position. Images were obtained Ultrasound Report using a [employer] S8 vascular ultrasound machine. -------- Arterial flow: + + +--------- --+ +Location +PSV(cm/sec)+EDV(cm/s ec)+ + + +--------- --+ +R brachial , distal+131 +20 + + + +--------- --+ +R radial , prox +76 +8 + + + +--------- --+ +R radial , mid +78 +8 + + + +--------- --+ +R radial , distal +36 +0 + + + +--------- --+ +R ulnar , mid +132 +0 + + + +--------- --+ +R radial, wrist +35 +0 + + + +--------- --+ Prepared and electronically signed by Bahman Salamanca MD 03/02/2021 08:24 Final Dictated: 03/02/2021 8:24 am Dictating Physician: BAHMAN SALAMANCA Signed Date and Time: 03/02/2021 8:24 am Signed by: BAHMAN SALAMANCA Cardiovascular ACCESSION EXAM DATE/TIME PROCEDURE [id number] 03/02/2021 07:47 EDT VL Arterial Duplex US Upper Ext Right CPT code 41155 Reason For Exam (VL Arterial Duplex US Upper Ext Right) Concern for hematoma R wrist Report [facility] -------- Right Upper Extremity Three Affiliated Arterial Duplex Report Patient Alondra, : 1945 Study 03/02/2021 Name: Kemal Sesay (75yrs) Date: Patient [id number] Age: 75 Account: [id number] ID: Gender: F Loc: BP: Ordering Physician: Sima Man Municipal Services Manager: Jyoti Gama T Interpreting Physician: Bahman Salamanca MD Cardiovascular Report -------- Location: [facility] -------- Indications: Right wrist swelling status post radial artery access.. -------- Preliminary result was reported to Sima Man MD , by Jyoti Gama Key, [facility] [place] , on 03/02/2021 , at 07:53 AM. Correct read-back was verified. -------- Conclusions There is no evidence of stenosis, aneurysm, or injury involving the right upper extremity arteries. -------- History: Risk factors: Obese. Hyperlipidemia. Age over 75 years. -------- Study data: Right upper extremity arterial duplex. Duplex scan, grayscale 2D imaging, color Doppler imaging, and spectral Doppler analysis. Location: Bedside. Procedure: A vascular evaluation was performed with the patient in the supine position. Images were obtained using a [employer] S8 vascular ultrasound machine. (more content not included)... Normal [facility] [employer] System VL DUP UPPER EXTREMITY ARTER IES RIGHTOrdered By: Sima Man on 03-02-2021 [facility] -------- Right Upper Extremity Three Affiliated Arterial Duplex Report Patient Alondra, : 1945 Study 03/02/2021 Name: Kemal Sesay (75yrs) Date: Patient [id number] Age: 75 Account: [id number] ID: Gender: F Loc: BP: Ordering Physician: Sima Man Municipal Services Manager: Jyoti Gama RVT Interpreting Physician: Bahman Salamanca MD -------- Location: [facility] -------- Indications: Right wrist swelling status post radial artery access.. -------- Preliminary result was reported to Sima Man MD , by Jyoti Gama RVT, [facility] [place] , on 03/02/2021 , at 07:53 AM. Correct read-back was verified. -------- Conclusions There is no evidence of stenosis, aneurysm, or injury involving the right upper extremity arteries. -------- History: Risk factors: Obese. Hyperlipidemia. Age over 75 years. -------- Study data: Right upper extremity arterial duplex. Duplex scan, grayscale 2D imaging, color Doppler imaging, and spectral Doppler analysis. Location: Bedside. Procedure: A vascular evaluation was performed with the patient in the supine position. Images were obtained using a [employer] S8 vascular ultrasound machine. -------- Arterial flow: + + +--------- --+ +Location +PSV(cm/sec)+EDV(cm/s ec)+ + + +--------- --+ +R brachial , distal+131 +20 + + + +--------- --+ +R radial , prox +76 +8 + + + +--------- --+ +R radial , mid +78 +8 + + + +--------- --+ +R radial , distal +36 +0 + + + +--------- --+ +R ulnar , mid +132 +0 + + + +--------- --+ +R radial, wrist +35 +0 + + + +--------- --+ Prepared and electronically signed by Bahman Salamanca MD 03/02/2021 08:24 [facility] Work Phone: Nicholas, [facility] Incoming Cardiology Results From [employer] - 03/02/2021 8:24 AM EDT [facility] -------- Right Upper Extremity Three Affiliated Arterial Duplex Report Patient Alondra : 1945 Study 03/02/2021 Name: Kemal Sesay (75yrs) Date: Patient [id number] Age: 75 Account: [id number] ID: Gender: F Loc: BP: Ordering Physician: Sima Man Municipal Services Manager: Jyoti Gama RVT Interpreting Physician: Bahman Salamanca MD -------- Location: [facility] -------- Indications: Right wrist swelling status post radial artery access.. -------- Preliminary result was reported to Sima Man MD , by Jyoti Gama Key, [facility] [place] , on 03/02/2021 , at 07:53 AM. Correct read-back was verified. -------- Conclusions There is no evidence of stenosis, aneurysm, or injury involving the right upper extremity arteries. -------- History: Risk factors: Obese. Hyperlipidemia. Age over 75 years. -------- Study data: Right upper extremity arterial duplex. Duplex scan, grayscale 2D imaging, color Doppler imaging, and spectral Doppler analysis. Location: Bedside. Procedure: A vascular evaluation was performed with the patient in the supine position. Images were obtained using a [employer] S8 vascular ultrasound machine. -------- Arterial flow: + + +--------- --+ +Location +PSV(cm/sec)+EDV(cm/s ec)+ + + +--------- --+ +R brachial , distal+131 +20 + + + +--------- --+ +R radial , prox +76 +8 + + + +--------- --+ +R radial , mid +78 +8 + + + +--------- --+ +R radial , distal +36 +0 + + + +--------- --+ +R ulnar , mid +132 +0 + + + +--------- --+ +R radial, wrist +35 +0 + + + +--------- --+ Prepared and electronically signed by Bahman Salamanca MD 03/02/2021 08:24 [facility] Work Phone: [facility] Work Phone: CBCOrdered By: Sima Man on 03-01-2021 Hematocrit (Bld) [Volume fraction] 39.6 % 35.0 - 47.0 % [facility] Work Phone: Hemoglobin.gastrointest inal spec 1 Ql (Stl) 13.5 g/dL 11.7 - 16.0 g/dL [facility] Work Phone: MCH (RBC) [Entitic mass] 29.4 pg 26.0 - 34.0 pg [facility] Work Phone: MCHC (RBC) [Mass/Vol] 34.1 % 32.0 - 36.0 % [facility] Work Phone: MCV (RBC) [Entitic vol] 86.2 fL 79.0 - 98.0 fL [facility] Work Phone: Platelet distribution width (Bld) [Ratio] 14.2 % 11.5 - 14.5 % [facility] Work Phone: Platelet mean volume (Bld) [Entitic vol] 7.9 fL 7.4 - 10.4 fL [facility] Work Phone: Platelets (Bld) [#/Vol] 201 10*3/uL 140 - 440 10*3/uL [facility] Work Phone: RBC (Bld) [#/Vol] 4.59 10*6/uL 3.80 - 5.2 0 10*6/uL [facility] Work Phone: WBC (Bld) [#/Vol] 5.4 10*3/uL 3.6 - 10.7 10*3/uL [facility] Work Phone: Test Performed by [employer], [address] [place] [address] [facility] Work Phone: [facility] Work Phone: CK with Reflex CK-MBOrdered By: Sima Man on 03-01-2021 CK [Catalytic activity/Vol] 39 U/L 30 - 170 U/L [facility] Work Phone: [facility] Commenton 03-01-2021 [facility] Comment see below Normal [facility] Comment on above: Result Comment: Tota l CK less than 65 U/L. Fractionation not indicated. Performed By: #### B GLU #### [employer] [address] [place] [phone] [facility] CommentOrdered By: Hui Man on 03-01-2021 [facility] Comment see below [facility] Phone: Comment on above: Total CK less than 6 5 U/L. Fractionation not indicated. [facility] Screenon 03-01-2021 CK [Catalytic activity/Vol] 39 U/L Normal 30-170 [facility] Comment on above: Performed By: #### B GLU #### [employer] [address] [place] [phone] CR Chest Portableon 03-01-20 21 CR Chest Portable Patient Name: KEMAL CANTU Diagnostic Radiology ACCESSION EXAM DATE/TIME PROCEDURE ORDERING PROVIDER [id number] 03/01/2021 17:40 EDT CR Chest Portable MD MAGDA, SIMA CPT code 58721 Reason For Exam (CR Chest Portable) Chest pain Report PORTABLE CHEST: INDICATION: Chest pain COMPARISON: No previous studies are available for comparison. Obtained at 1704 hours. A single portable AP radiograph of the chest was obtained. The heart is normal in size. The mediastinal silhouette is normal. The lungs are clear. There are no effusions or infiltrates. There is no pleural thickening. Arthritic changes of the spine and shoulders are present. IMPRESSION: No acute process. Report Dictated on Workstation: [id number] Final Dictated: 03/01/2021 7:39 pm Dictating Physician: DO COVARRUBIAS ALFRED Signed Date and Time: 03/01/2021 7:39 pm Signed by: DO COVARRUBIAS ALFRED Transcribed Date and Time: 03/01/2021 7:39 Normal [facility] Comp Metabolic Panelon 03-01 ALP [Catalytic activity/Vol] 91 U/L Normal 38-126 [facility] Comment on above: Performed By: #### B GLU #### [place] [address] [address] [place], [place] ALT [Catalytic activity/Vol] 78 U/L High 0-34 [facility] Comment on above: Result Comment: The ALT test is performed by an updated assay method. Please note that the reference intervals have been changed and are now sex specific. Performed By: #### B GLU #### [facility] [address] [place], [place] Calcium [Mass/Vol] 9.3 mg/dL Normal 8.4-10.4 [facility] Comment on above: Performed By: #### B GLU #### [place] [address] [address] [place], [place] Glucose [Mass/Vol] 156 mg/dL High 70-100 [facility] Comment on above: Performed By: #### B GLU #### [facility] [address] [place], [place] Urea nitrogen [Mass/Vol] 17 mg/dL Normal 7-20 [facility] Comment on above: Performed By: #### B GLU #### [place] [address] [address] [place], [place] Anion gap [Moles/Vol] 5 mmol/L Normal 3-13 [facility] Comment on above: Performed By: #### B GLU #### [place] [address] [place], [place] AST [Catalytic activity/Vol] 60 U/L High 15-46 [facility] Comment on above: Performed By: #### B GLU #### [place] [address] [place], [place] Bilirubin [Mass/Vol] 0.4 mg/dL Normal 0.2-1.3 [facility] Comment on above: Performed By: #### B GLU #### [place] [address] [place], [place] CO2 [Moles/Vol] 30 mmol/L Normal 22-30 [facility] Comment on above: Performed By: #### B GLU #### [address] Creatinine [Mass/Vol] 1.00 mg/dL Normal 0.52-1.25 [facility] Comment on above: Performed By: #### B GLU #### [address] GFR/1.73 sq M.predicted among blacks MDRD (S/P/Bld) [Vol rate/Area] 63.6 mL/min/{1.73_m2} Normal >60 [facility] Comment on above: Performed By: #### B GLU #### [address] GFR/1.73 sq M.predicted among non-blacks MDRD (S/P/Bld) [Vol rate/Area] 54.9 mL/min/{1.73_m2} Abnormal >60 [facility] Comment on above: Result Comment: KDIG O guidelines provide the following GFR categories: Stage GFR(ml/min/1.73 m2) Terms G1 >=90 Normal or high G2 60-89 Mildly decreased* G3a 45-59 Mildly to moderately decreased G3b 30-44 Moderately to severely decreased G4 15-29 Severely decreased G5 <15 Kidney failure *Relative to young adult level. In the absence of evidence of kidney damage, neither GFR category G1 nor G2 fulfill the criteria for CKD. The CKD-EPI equation is validated in individuals 18 years of age and older. Currently the best equation for estimating glomerular filtration rate (GFR) from serum creatinine in children is the Bedside Serna equation. It is less accurate in patients with extremes of muscle mass, restriction of dietary protein, ingestion of creatine, extra-renal metabolism of creatinine, or treatment with medications that affect renal tubular creatinine secretion. Performed By: #### B GLU #### [facility] [address] [place] [address] Protein [Mass/Vol] 6.6 g/dL Normal 6.3-8.2 [facility] Comment on above: Performed By: #### B GLU #### [place] [address] [place] [address] Potassium [Moles/Vol] 3.9 mmol/L Normal 3.5-5.1 [facility] Comment on above: Performed By: #### B GLU #### [place] [address] [place] [address] Sodium [Moles/Vol] 136 mmol/L Normal 135-145 [facility] Comment on above: Performed By: #### B GLU #### [place] [address] [place] [address] Albumin [Mass/Vol] 3.8 g/dL Normal 3.5-5.0 [facility] Comment on above: Performed By: #### B GLU #### [place] [address] [address] [place], [place] Chloride [Moles/Vol] 101 mmol/L Normal 98-107 [facility] Comment on above: Performed By: #### B GLU #### [place] [address] [place] [address] Comprehensive Metabolic Pane lOrdered By: Sima Man on 03-01-2021 Albumin [Mass/Vol] 3.8 g/dL 3.5 - 5.0 g/dL [facility] Work Phone: ALP (Bld) [Catalytic activity/Vol] 91 U/L 38 - 126 U/L [facility] Work Phone: ALT [Catalytic activity/Vol] 78 U/L High 0 - 34 U/L [facility] Work Phone: Comment on above: The ALT test is perf ormed by an updated assay method. Please note that the reference intervals have been changed and are now sex specific. Anion gap [Moles/Vol] 5 mmol/L 3 - 13 mmol/L [facility] Work Phone: AST [Catalytic activity/Vol] 60 U/L High 15 - 46 U/L [facility] Work Phone: Bilirubin [Mass/Vol] 0.4 mg/dL 0.2 - 1 .3 mg/dL [facility] Work Phone: Calcium [Mass/Vol] 9.3 mg/dL 8.4 - 10. 4 mg/dL [facility] Work Phone: Chloride [Moles/Vol] 101 mmol/L 98 - 10 7 mmol/L [facility] Work Phone: CO2 [Moles/Vol] 30 mmol/L 22 - 30 mmol/L [facility] Work Phone: Creatinine [Mass/Vol] 1 mg/dL 0.52 - 1.25 mg/dL [facility] Work Phone: EGFR IF NonAfrican British 54.9 mL/min Abnormal >60 [facility] Work Phone: Comment on above: KDIGO guidelines pro vide the following GFR categories: Stage GFR(ml/min/1.73 m2) Terms G1 >=90 Normal or high G2 60-89 Mildly decreased* G3a 45-59 Mildly to moderately decreased G3b 30-44 Moderately to severely decreased G4 15-29 Severely decreased G5 <15 Kidney failure *Relative to young adult level. In the absence of evidence of kidney damage, neither GFR category G1 nor G2 fulfill the criteria for CKD. The CKD-EPI equation is validated in individuals 18 years of age and older. Currently the best equation for estimating glomerular filtration rate (GFR) from serum creatinine in children is the Bedside Serna equation. It is less accurate in patients with extremes of muscle mass, restriction of dietary protein, ingestion of creatine, extra-renal metabolism of creatinine, or treatment with medications that affect renal tubular creatinine secretion. Free PSA/Total PSA [Mass fraction] 6.6 g/dL 6.3 - 8.2 g/dL [facility] Work Phone: GFR/1.73 sq M.predicted among blacks MDRD (S/P/Bld) [Vol rate/Area] 63.6 mL/min/{1.73_m2} >60 [facility] Work Phone: Glucose [Mass/Vol] 156 mg/dL High 70 - 100 mg/dL [facility] Work Phone: Interpretation and review of laboratory results Abnormal [facility] Work Phone: Potassium [Moles/Vol] 3.9 mmol/L 3.5 - 5.1 mmol/L [facility] Work Phone: Sodium [Moles/Vol] 136 mmol/L 135 - 145 mmol/L [facility] Work Phone: Urea nitrogen (BldV) [Mass/Vol] 17 mg/dL 7 - 20 mg/dL [facility] Work Phone: Hemogramon 03-01-2021 Erythrocyte distribution width (RBC) [Ratio] 14.2 % Normal 11.5-14.5 [facility] Comment on above: Performed By: #### B GLU #### [facility] [employer] [place] [address] [address] [place], [place] Hematocrit (Bld) [Volume fraction] 39.6 % Normal 35.0-47.0 [facility] Comment on above: Performed By: #### B GLU #### [place] [address] [place], [place] Hemoglobin (Bld) [Mass/Vol] 13.5 g/dL Normal 11.7-16.0 [facility] Comment on above: Performed By: #### B GLU #### [facility] [address] [place], [place] MCH (RBC) [Entitic mass] 29.4 pg Normal 26.0-34.0 [facility] Comment on above: Performed By: #### B GLU #### [facility] [employer] [facility] [address] [place], [place] MCHC 34.1 % Normal 32.0-36.0 [facility] Comment on above: Performed By: #### B GLU #### [facility] [address] [place] [address] MCV (RBC) [Entitic vol] 86.2 fL Normal 79.0-98.0 [facility] Comment on above: Performed By: #### B GLU #### [facility] [address] [place] [address] Platelet mean volume (Bld) [Entitic vol] 7.9 fL Normal 7.4-10.4 [facility] Comment on above: Performed By: #### B GLU #### [place] [address] [place] [address] Platelets (Bld) [#/Vol] 201 10*3/uL Normal 140-440 [facility] Comment on above: Performed By: #### B GLU #### [place] [address] [place] [address] RBC (Bld) [#/Vol] 4.59 10*6/uL Normal 3.80-5.20 [facility] Comment on above: Performed By: #### B GLU #### [place] [address] [place] [address] WBC (Bld) [#/Vol] 5.4 10*3/uL Normal 3.6-10.7 [facility] Comment on above: Performed By: #### B GLU #### [place] [address] [place] [address] Magnesiumon 03-01-2021 Magnesium [Mass/Vol] 1.8 mg/dL Normal 1.6-2.3 [facility] Comment on above: Performed By: #### B GLU #### [place] [address] [place] [address] MagnesiumOrdered By: Sima Man on 03-01-2021 Magnesium [Mass/Vol] 1.8 mg/dL 1.6 - 2 .3 mg/dL [facility] Work Phone: No Panel InformationOrdered By: Sima Man on 03-01-2021 Test Performed by [facility] [employer] [facility] [place] [address] [facility] Work Phone: [facility] Work Phone: POCT GlucoseOrdered By: Elena Lynch on 03-01-2021 Glucose [Mass/Vol] 188 mg/dL High 70 - 100 mg/dL [facility] Work Phone: Comment on above: Test performed by gl ucose meter. Results may be 10%-15% lower than serum/plasma values. (CLIA ID [id number]) Interpretation and review of laboratory results Abnormal [facility] Work Phone: Test Performed by [employer], [address] [place] [address] [facility] Work Phone: [facility] Work Phone: Phosphoruson 03-01-2021 Phosphate [Mass/Vol] 3.9 mg/dL Normal 2.5-4.5 [facility] Comment on above: Performed By: #### B GLU #### [employer] [address] [place] [phone] PhosphorusOrdered By: Dennis Man on 03-01-2021 Phosphate [Mass/Vol] 3.9 mg/dL 2.5 - 4 .5 mg/dL [facility] Work Phone: TroponinOrdered By: Sima Man on 03-01-2021 Troponin I.cardiac [Mass/Vol] 0.019 ng/mL 0.000 - 0.034 ng/mL [facility] Work Phone: Comment on above: . Test Performed by [employer], [address] [place] [address] [facility] Work Phone: [facility] Work Phone: Troponin Ion 03-01-2021 Troponin I.cardiac [Mass/Vol] 0.019 ng/mL Normal 0.000-0.034 [facility] [employer] Comment on above: Result Comment: . Performed By: #### B GLU #### [employer] [facility] [place] [address] XR CHEST PORTABLEOrdered By: Sima Man on 03-01-2021 Patient Name: KEMAL CANTU Diagnostic Radiology ACCESSION EXAM DATE/TIME PROCEDURE ORDERING PROVIDER [id number] 03/01/2021 17:40 EDT CR Chest Portable MD MAGDA, SIMA CPT code 69169 Reason For Exam (CR Chest Portable) Chest pain Report PORTABLE CHEST: INDICATION: Chest pain COMPARISON: No previous studies are available for comparison. Obtained at 1704 hours. A single portable AP radiograph of the chest was obtained. The heart is normal in size. The mediastinal silhouette is normal. The lungs are clear. There are no effusions or infiltrates. There is no pleural thickening. Arthritic changes of the spine and shoulders are present. IMPRESSION: No acute process. Report Dictated on Workstation: [id number] --- Final --- Dictated: 03/01/2021 7:39 pm Dictating Physician: DO COVARRUBIAS ALFRED Signed Date and Time: 03/01/2021 7:39 pm Signed by: DO COVARRUBIAS ALFRED Transcribed Date and Time: 03/01/2021 7:39 [facility] Work Phone: Nicholas, Radha Incoming Radiology Results From [facility] - 03/01/2021 7:41 PM EDT Patient Name: KEMAL CANTU Diagnostic Radiology ACCESSION EXAM DATE/TIME PROCEDURE ORDERING PROVIDER [id number] 03/01/2021 17:40 EDT CR Chest Portable MD MAGDA, SIMA CPT code 66413 Reason For Exam (CR Chest Portable) Chest pain Report PORTABLE CHEST: INDICATION: Chest pain COMPARISON: No previous studies are available for comparison. Obtained at 1704 hours. A single portable AP radiograph of the chest was obtained. The heart is normal in size. The mediastinal silhouette is normal. The lungs are clear. There are no effusions or infiltrates. There is no pleural thickening. Arthritic changes of the spine and shoulders are present. IMPRESSION: No acute process. Report Dictated on Workstation: [id number] --- Final --- Dictated: 03/01/2021 7:39 pm Dictating Physician: DO COVARRUBIAS ALFRED Signed Date and Time: 03/01/2021 7:39 pm Signed by: DO COVARRUBIAS ALFRED Transcribed Date and Time: 03/01/2021 7:39 [facility] Work Phone: [facility] Work Phone: No Panel Informationon 07-22 IMPRESSION: 1. Facial bones: Negative. 2. Left hand: Suspicion of nondisplaced fracture of the fourth proximal phalanx but this is only visible on one projection. Recommend correlation with clinical exam. [place]: CHAR Transcribe Date/Time: Jul 22 2020 1:54P Dictated by : KRUNAL STILL MD This examination was interpreted and the report reviewed and electronically signed by: KRUNAL STILL MD on Jul 22 2020 1:58PM [facility] DIVISION OF RADIOLOGY Radiology Study observation (narrative) [facility] [place] No Panel InformationOrdered By: Ccf Provider on 07-22-2020 [facility] XR Facial bones 3 Viewson * * *Final Report* * * DATE OF EXAM: Jul 22 2020 1:49PM WOX 5329 - XR FACIAL BONES 3V AP/LAT/WRIGHT / PROCEDURE REASON: multiple diagnoses * * * * Physician Interpretation * * * * EXAM 1: FACIAL BONE X-RAYS HISTORY: Fall, initial encounter Left facial pain COMPARISON: None available. TECHNIQUE: PA, lateral, Wright and Veronique's views. RESULT: No acute fracture, dislocation or radio opaque foreign body. Visible paranasal sinuses are clear. EXAM 2: LEFT HAND X-RAY SERIES CLINICAL HISTORY: Fall, left hand pain TECHNIQUE: PA, lateral and oblique views. COMPARISON: None available. RESULT: On the PA view there are 2 linear lucencies traversing the shaft of the fourth proximal phalanx without cortical disruption or step-off. No corresponding findings on other projections. Joint spaces and articular surfaces are preserved. [facility] DIVISION OF RADIOLOGY Provider, [facility] * * *Final Report* * * DATE OF EXAM: Jul 22 2020 1:49PM WOX 5329 - XR FACIAL BONES 3V AP/LAT/WRIGHT / PROCEDURE REASON: multiple diagnoses * * * * Physician Interpretation * * * * EXAM 1: FACIAL BONE X-RAYS HISTORY: Fall, initial encounter Left facial pain COMPARISON: None available. TECHNIQUE: PA, lateral, Wright and Veronique's views. RESULT: No acute fracture, dislocation or radio opaque foreign body. Visible paranasal sinuses are clear. EXAM 2: LEFT HAND X-RAY SERIES CLINICAL HISTORY: Fall, left hand pain TECHNIQUE: PA, lateral and oblique views. COMPARISON: None available. RESULT: On the PA view there are 2 linear lucencies traversing the shaft of the fourth proximal phalanx without cortical disruption or step-off. No corresponding findings on other projections. Joint spaces and articular surfaces are preserved. COMBINED IMPRESSION IMPRESSION: 1. Facial bones: Negative. 2. Left hand: Suspicion of nondisplaced fracture of the fourth proximal phalanx but this is only visible on one projection. Recommend correlation with clinical exam. [place]: [facility] Transcribe Date/Time: Jul 22 2020 1:54P Dictated by : KRUNAL STILL MD This examination was interpreted and the report reviewed and electronically signed by: KRUNAL STILL MD on Jul 22 2020 1:58PM EST [facility] XR Hand - left PA and Latera l and Obliqueon 07-22-2020 * * *Final Report* * * DATE OF EXAM: Jul 22 2020 1:49PM WOX 5345 - XR HAND 3V PA/LAT/OBL LT / PROCEDURE REASON: multiple diagnoses * * * * Physician Interpretation * * * * EXAM 1: FACIAL BONE X-RAYS HISTORY: Fall, initial encounter Left facial pain COMPARISON: None available. TECHNIQUE: PA, lateral, Wright and Veronique's views. RESULT: No acute fracture, dislocation or radio opaque foreign body. Visible paranasal sinuses are clear. EXAM 2: LEFT HAND X-RAY SERIES CLINICAL HISTORY: Fall, left hand pain TECHNIQUE: PA, lateral and oblique views. COMPARISON: None available. RESULT: On the PA view there are 2 linear lucencies traversing the shaft of the fourth proximal phalanx without cortical disruption or step-off. No corresponding findings on other projections. Joint spaces and articular surfaces are preserved. [facility] DIVISION OF RADIOLOGY Provider, [facility] - 07/22/2020 * * *Final Report* * * DATE OF EXAM: Jul 22 2020 1:49PM WOX 5345 - XR HAND 3V PA/LAT/OBL LT / PROCEDURE REASON: multiple diagnoses * * * * Physician Interpretation * * * * EXAM 1: FACIAL BONE X-RAYS HISTORY: Fall, initial encounter Left facial pain COMPARISON: None available. TECHNIQUE: PA, lateral, Wright and Veronique's views. RESULT: No acute fracture, dislocation or radio opaque foreign body. Visible paranasal sinuses are clear. EXAM 2: LEFT HAND X-RAY SERIES CLINICAL HISTORY: Fall, left hand pain TECHNIQUE: PA, lateral and oblique views. COMPARISON: None available. RESULT: On the PA view there are 2 linear lucencies traversing the shaft of the fourth proximal phalanx without cortical disruption or step-off. No corresponding findings on other projections. Joint spaces and articular surfaces are preserved. COMBINED IMPRESSION IMPRESSION: 1. Facial bones: Negative. 2. Left hand: Suspicion of nondisplaced fracture of the fourth proximal phalanx but this is only visible on one projection. Recommend correlation with clinical exam. [place]: CHAR Transcribe Date/Time: Jul 22 2020 1:54P Dictated by : KRUNAL STILL MD This examination was interpreted and the report reviewed and electronically signed by: KRUNAL STILL MD on Jul 22 2020 1:58PM EST [facility] CORONAVIRUS PCR [CCL]on COVID 19 Result [employer] Negative Normal [facility] Comment on above: Result Comment: Nega tive for COVID19 (SARS CoV2) by PCR. This test was developed and its performance characteristics determined by [facility] [place]. This test has been authorized by FDA under an Emergency Use Authorization (EUA). This test has been validated in accordance with the FDA's Guidance Document Policy for Diagnostics Testing in Laboratories Certified to Perform High Complexity Testing under CLIA prior to Emergency use Authorization for Coronavirus Disease 2019 during the Public Health Emergency issued on October 12, 2019. [facility] [address] [place] [address] Guanakito Brdoerick III, M.D. [id number] Performed By: #### [id number] #### [facility],[address] [place] [address] COVID 19 Source [employer] Nasopharyngeal Swab Normal [facility] Comment on above: Result Comment: Abby ected on 06/13 AT 1914: Previously reported as [employer] SWAB Performed By: #### [id number] #### [facility],[address] [place] [address] Coronavirus 2019 0 COVID 19 Result [employer] Normal Negative for COVID19 (SARS CoV2) by PCR. [facility] Comment on above: Result Comment: Nega tive for This test was developed and its performance characteristics determined by [facility]'s [facility] [place]. This test has been authorized by FDA under an Emergency Use Authorization (EUA). This test has been validated in accordance with the FDA's Guidance Document Policy for Diagnostics Testing in Laboratories Certified to Perform High Complexity Testing under CLIA prior to Emergency use Authorization for Coronavirus Disease 2019 during the Public Health Emergency issued on October 12, 2019. COVID19 (SARS This test was developed and its performance characteristics determined by [facility] [place]. This test has been authorized by FDA under an Emergency Use Authorization (EUA). This test has been validated in accordance with the FDA's Guidance Document Policy for Diagnostics Testing in Laboratories Certified to Perform High Complexity Testing under CLIA prior to Emergency use Authorization for Coronavirus Disease 2019 during the Public Health Emergency issued on October 12, 2019. CoV2) by PCR. This test was developed and its performance characteristics determined by [facility] [place]. This test has been authorized by FDA under an Emergency Use Authorization (EUA). This test has been validated in accordance with the FDA's Guidance Document Policy for Diagnostics Testing in Laboratories Certified to Perform High Complexity Testing under CLIA prior to Emergency use Authorization for Coronavirus Disease 2019 during the Public Health Emergency issued on October 12, 2019. Performed By: #### C OVID #### [facility] [address] [place], [place] [address] Coronavirus 2019 0 COVID 19 Source [employer] Normal [facility] Comment on above: Result Comment: Naso pharyngeal Corrected on 06/13 AT 1914: Previously reported as [employer] SWAB Swab Corrected on 06/13 AT 1914: Previously reported as [employer] SWAB Performed By: #### C OVID #### [facility] [address] [place] [address] Vital Signs Date Time Vital Sign Value Performing Clinician Faci lity 04-23-2025 09:51-0400 Body mass index (BMI) [Ratio] 43.07 kg/m2 Altagracia Dougie SILK CREPE MACHINE OPERATOR.MICROGRINDER OPERATOR Work Phone: [facility] 04-23-2025 09:51-0400 Body weight 124.74 kg Altagracia Dougie SILK CREPE MACHINE OPERATOR.MICROGRINDER OPERATOR Work Phone: [facility] 04-23-2025 09:51-0400 Diastolic blood pressure 68 mm[Hg] Altagracia Dougie SILK CREPE MACHINE OPERATOR.MICROGRINDER OPERATOR Work Phone: [facility] 04-23-2025 09:51-0400 Heart rate 63 /min Altagracia Dougie SILK CREPE MACHINE OPERATOR.MICROGRINDER OPERATOR Work Phone: [facility] 04-23-2025 09:51-0400 Respiratory rate 16 /min Altagracia Dougie SILK CREPE MACHINE OPERATOR.MICROGRINDER OPERATOR Work Phone: [facility] 04-23-2025 09:51-0400 SaO2% (BldA) [Mass fraction] 98 % Altagracia Dougie SILK CREPE MACHINE OPERATOR.MICROGRINDER OPERATOR Work Phone: [facility] 04-23-2025 09:51-0400 Systolic blood pressure 156 mm[Hg] Altagracia Dougie SILK CREPE MACHINE OPERATOR.MICROGRINDER OPERATOR Work Phone: [facility] 04-21-2025 10:57-0400 Body height 170.[address] [facility] 04-21-2025 10:57-0400 Body mass index (BMI) [Ratio] 42.99 kg/m2 Radha High RD [facility] 04-21-2025 10:57-0400 Body weight 124.[address] [facility] 03-10-2025 10:57-0400 Body height 170.[address] [facility] 03-10-2025 10:57-0400 Body mass index (BMI) [Ratio] 42.91 kg/m2 Radha High RD [facility] 03-10-2025 10:57-0400 Body weight 124.[address] [facility] 02-24-2025 13:01-0400 Body mass index (BMI) [Ratio] 43.07 kg/m2 Екатерина Older SILK CREPE MACHINE OPERATOR.MICROGRINDER OPERATOR Work Phone: [facility] 02-24-2025 13:01-0400 Body weight 124.74 kg Екатерина Older SILK CREPE MACHINE OPERATOR.MICROGRINDER OPERATOR Work Phone: [facility] 02-24-2025 13:01-0400 Diastolic blood pressure 78 mm[Hg] Екатерина Older SILK CREPE MACHINE OPERATOR.MICROGRINDER OPERATOR Work Phone: [facility] 02-24-2025 13:01-0400 Heart rate 64 /min Екатерина Older SILK CREPE MACHINE OPERATOR.MICROGRINDER OPERATOR Work Phone: [facility] 02-24-2025 13:01-0400 Respiratory rate 16 /min Екатерина Older SILK CREPE MACHINE OPERATOR.MICROGRINDER OPERATOR Work Phone: [facility] 02-24-2025 13:01-0400 SaO2% (BldA) [Mass fraction] 99 % Екатерина Older SILK CREPE MACHINE OPERATOR.MICROGRINDER OPERATOR Work Phone: [facility] 02-24-2025 13:01-0400 Systolic blood pressure 132 mm[Hg] Екатерина Older SILK CREPE MACHINE OPERATOR.MICROGRINDER OPERATOR Work Phone: [facility] 01-27-2025 10:55-0400 Body height 170.2 cm Radha High [facility] 01-27-2025 10:55-0400 Body mass index (BMI) [Ratio] 41.35 kg/m2 Radha High RD [facility] 01-27-2025 10:55-0400 Body weight 119.[address] [facility] 01-20-2025 10:39-0400 Body mass index (BMI) [Ratio] 42.51 kg/m2 Hollie Blevins Jr., MD Work Phone: [facility] 01-20-2025 10:39-0400 Body weight 123.11 kg Hollie Blevins Jr., MD Work Phone: [facility] 01-20-2025 10:39-0400 Diastolic blood pressure 82 mm[Hg] Hollie Blevins Jr., MD Work Phone: [facility] 01-20-2025 10:39-0400 Heart rate 66 /min Hollie Blevins Jr., MD Work Phone: [facility] 01-20-2025 10:39-0400 Respiratory rate 18 /min Hollie Blevins Jr., MD Work Phone: [facility] 01-20-2025 10:39-0400 SaO2% (BldA) [Mass fraction] 98 % Hollie Blevins Jr., MD Work Phone: [facility] 01-20-2025 10:39-0400 Systolic blood pressure 138 mm[Hg] Hollie Blevins Jr., MD Work Phone: [facility] 10-28-2024 11:00-0400 Body height 170.[address] [facility] 10-28-2024 11:00-0400 Body mass index (BMI) [Ratio] 42.66 kg/m2 Radha High [facility] 10-28-2024 11:00-0400 Body weight 123.[address] [facility] 10-14-2024 10:42-0500 Body mass index (BMI) [Ratio] 43.4 kg/m2 Georgette Bautista APRN.MICROGRINDER OPERATOR Work Phone: [facility] 10-14-2024 10:42-0500 Body temperature 97.5 [degF] Georgette Bautista APRN.MICROGRINDER OPERATOR Work Phone: [facility] 10-14-2024 10:42-0500 Body weight 125.7 kg Georgette Bautista APRN.MICROGRINDER OPERATOR Work Phone: [facility] 10-14-2024 10:42-0500 Diastolic blood pressure 84 mm[Hg] Georgette Bautista SILK CREPE MACHINE OPERATOR.MICROGRINDER OPERATOR Work Phone: [facility] 10-14-2024 10:42-0500 Heart rate 68 /min Georgette Bautista SILK CREPE MACHINE OPERATOR.MICROGRINDER OPERATOR Work Phone: [facility] 10-14-2024 10:42-0500 Respiratory rate 18 /min Georgette Bautista SILK CREPE MACHINE OPERATOR.MICROGRINDER OPERATOR Work Phone: [facility] 10-14-2024 10:42-0500 SaO2% (BldA) [Mass fraction] 97 % Georgette Bautista SILK CREPE MACHINE OPERATOR.MICROGRINDER OPERATOR Work Phone: [facility] 10-14-2024 10:42-0500 Systolic blood pressure 158 mm[Hg] Georgette Bautista SILK CREPE MACHINE OPERATOR.MICROGRINDER OPERATOR Work Phone: [facility] 09-09-2024 12:53-0500 Body height 170.2 cm Radha High [facility] 09-09-2024 12:53-0500 Body mass index (BMI) [Ratio] 43.29 kg/m2 Radha High [facility] 09-09-2024 12:53-0500 Body weight 125.37 kg Radha High [facility] 08-26-2024 14:25-0500 Body mass index (BMI) [Ratio] 43.07 kg/m2 Екатерина Older SILK CREPE MACHINE OPERATOR.MICROGRINDER OPERATOR Work Phone: [facility] 08-26-2024 14:25-0500 Body weight 124.74 kg Екатерина Older SILK CREPE MACHINE OPERATOR.MICROGRINDER OPERATOR Work Phone: [facility] 08-26-2024 14:25-0500 Diastolic blood pressure 80 mm[Hg] Екатерина Older SILK CREPE MACHINE OPERATOR.MICROGRINDER OPERATOR Work Phone: [facility] 08-26-2024 14:25-0500 Heart rate 76 /min Екатерина Older SILK CREPE MACHINE OPERATOR.MICROGRINDER OPERATOR Work Phone: [facility] 08-26-2024 14:25-0500 Respiratory rate 16 /min Екатерина Older SILK CREPE MACHINE OPERATOR.MICROGRINDER OPERATOR Work Phone: [facility] 08-26-2024 14:25-0500 SaO2% (BldA) [Mass fraction] 97 % Екатерина Escalante SILK CREPE MACHINE OPERATOR.MICROGRINDER OPERATOR Work Phone: [facility] 08-26-2024 14:25-0500 Systolic blood pressure 142 mm[Hg] Екатерина Older SILK CREPE MACHINE OPERATOR.MICROGRINDER OPERATOR Work Phone: [facility] 06-24-2024 12:20-0500 Body height 170.[address] [facility] 06-24-2024 12:20-0500 Body mass index (BMI) [Ratio] 42.21 kg/m2 Radha High RD [facility] 06-24-2024 12:20-0500 Body weight 122.[address] [facility] 06-21-2024 09:57-0500 Body mass index (BMI) [Ratio] 42.91 kg/m2 Altagracia Dougie SILK CREPE MACHINE OPERATOR.MICROGRINDER OPERATOR Work Phone: [facility] 06-21-2024 09:57-0500 Body weight 124.29 kg Altagracia Dougie SILK CREPE MACHINE OPERATOR.MICROGRINDER OPERATOR Work Phone: [facility] 06-21-2024 09:57-0500 Diastolic blood pressure 76 mm[Hg] Altagracia Dougie SILK CREPE MACHINE OPERATOR.MICROGRINDER OPERATOR Work Phone: [facility] 06-21-2024 09:57-0500 Heart rate 64 /min Altagracia Dougie SILK CREPE MACHINE OPERATOR.MICROGRINDER OPERATOR Work Phone: [facility] 06-21-2024 09:57-0500 Respiratory rate 16 /min Altagracia Dougie SILK CREPE MACHINE OPERATOR.MICROGRINDER OPERATOR Work Phone: [facility] 06-21-2024 09:57-0500 SaO2% (BldA) [Mass fraction] 94 % Altagracia Dougie SILK CREPE MACHINE OPERATOR.MICROGRINDER OPERATOR Work Phone: [facility] 06-21-2024 09:57-0500 Systolic blood pressure 138 mm[Hg] Altagracia Dougie SILK CREPE MACHINE OPERATOR.MICROGRINDER OPERATOR Work Phone: [facility] 05-13-2024 10:17-0400 Body height 170.[address] [facility] 05-13-2024 10:17-0400 Body mass index (BMI) [Ratio] 42.35 kg/m2 Radha High [facility] 05-13-2024 10:17-0400 Body weight 122.65 kg Radha High [facility] 04-01-2024 12:57-0400 Body height 170.2 cm Radha High [facility] 04-01-2024 12:57-0400 Body mass index (BMI) [Ratio] 42.05 kg/m2 Radha High [facility] 04-01-2024 12:57-0400 Body weight 121.79 kg Radha High [facility] 02-21-2024 10:37-0400 Body mass index (BMI) [Ratio] 42.44 kg/m2 Екатерина Older SILK CREPE MACHINE OPERATOR.MICROGRINDER OPERATOR Work Phone: [facility] 02-21-2024 10:37-0400 Body weight 122.92 kg Екатерина Older SILK CREPE MACHINE OPERATOR.MICROGRINDER OPERATOR Work Phone: [facility] 02-21-2024 10:37-0400 Diastolic blood pressure 74 mm[Hg] Екатерина Older SILK CREPE MACHINE OPERATOR.MICROGRINDER OPERATOR Work Phone: [facility] 02-21-2024 10:37-0400 Heart rate 84 /min Екатерина Older SILK CREPE MACHINE OPERATOR.MICROGRINDER OPERATOR Work Phone: [facility] 02-21-2024 10:37-0400 Respiratory rate 16 /min Екатерина Older SILK CREPE MACHINE OPERATOR.MICROGRINDER OPERATOR Work Phone: [facility] 02-21-2024 10:37-0400 SaO2% (BldA) [Mass fraction] 98 % Екатерина Older SILK CREPE MACHINE OPERATOR.MICROGRINDER OPERATOR Work Phone: [facility] 02-21-2024 10:37-0400 Systolic blood pressure 140 mm[Hg] Екатерина Older SILK CREPE MACHINE OPERATOR.MICROGRINDER OPERATOR Work Phone: [facility] 01-01-2024 11:03-0400 Body height 170.2 cm Radha High [facility] 01-01-2024 11:03-0400 Body mass index (BMI) [Ratio] 42.05 kg/m2 Radha High RD [facility] 01-01-2024 11:03-0400 Body weight 121.[address] [facility] 12-18-2023 10:32-0400 Body mass index (BMI) [Ratio] 42.35 kg/m2 Hollie Blevins Jr., MD Work Phone: [facility] 12-18-2023 10:32-0400 Body weight 122.65 kg Hollie Blevins Jr., MD Work Phone: [facility] 12-18-2023 10:32-0400 Diastolic blood pressure 70 mm[Hg] Hollie Blevins Jr., MD Work Phone: [facility] 12-18-2023 10:32-0400 Heart rate 66 /min Hollie Blevins Jr., MD Work Phone: [facility] 12-18-2023 10:32-0400 Respiratory rate 16 /min Hollie Blevins Jr., MD Work Phone: [facility] 12-18-2023 10:32-0400 SaO2% (BldA) [Mass fraction] 96 % Hollie Blevins Jr., MD Work Phone: [facility] 12-18-2023 10:32-0400 Systolic blood pressure 122 mm[Hg] Hollie Blevins Jr., MD Work Phone: [facility] 10-23-2023 11:03-0400 Body height 170.[address] [facility] 10-23-2023 11:03-0400 Body weight 122.[address] [facility] 10-06-2023 11:03-0500 Body height 172.[address] Helen Chapa Work Phone: [facility] 10-06-2023 10:58-0500 Body mass index (BMI) [Ratio] 41.2 kg/m2 Dr. Helen Chapa Work Phone: [facility] 10-06-2023 10:58-0500 Body weight 122.[address] Helen Chapa Work Phone: [facility] 10-06-2023 10:58-0500 Diastolic blood pressure 78 mm[Hg] Dr. Helen Chapa Work Phone: [facility] 10-06-2023 10:58-0500 Heart rate 61 /min Dr. Helen Chapa Work Phone: [facility] 10-06-2023 10:58-0500 Respiratory rate 18 /min Dr. Helen Chapa Work Phone: [facility] 10-06-2023 10:58-0500 SaO2% (BldA) [Mass fraction] 98 % Dr. Helen Chapa Work Phone: [facility] 10-06-2023 10:58-0500 Systolic blood pressure 136 mm[Hg] Dr. Helen Chapa Work Phone: [facility] 09-18-2023 10:17-0500 Body height 170.[address] [facility] 09-18-2023 10:17-0500 Body weight 122.[address] [facility] 08-23-2023 10:36-0500 Body weight 122.92 kg Екатерина Older SILK CREPE MACHINE OPERATOR.MICROGRINDER OPERATOR Work Phone: [facility] 08-23-2023 10:36-0500 Diastolic blood pressure 74 mm[Hg] Екатерина Older SILK CREPE MACHINE OPERATOR.MICROGRINDER OPERATOR Work Phone: [facility] 08-23-2023 10:36-0500 Heart rate 68 /min Екатерина Older SILK CREPE MACHINE OPERATOR.MICROGRINDER OPERATOR Work Phone: [facility] 08-23-2023 10:36-0500 Respiratory rate 16 /min Екатерина Older SILK CREPE MACHINE OPERATOR.MICROGRINDER OPERATOR Work Phone: [facility] 08-23-2023 10:36-0500 SaO2% (BldA) [Mass fraction] 96 % Екатерина Older SILK CREPE MACHINE OPERATOR.MICROGRINDER OPERATOR Work Phone: [facility] 08-23-2023 10:36-0500 Systolic blood pressure 132 mm[Hg] Екатерина Older SILK CREPE MACHINE OPERATOR.MICROGRINDER OPERATOR Work Phone: [facility] 07-03-2023 10:57-0500 Body height 170.2 cm Radha High [facility] 07-03-2023 10:57-0500 Body weight 117.66 kg Radha High [facility] 05-22-2023 12:20-0400 Body height 170.2 cm Radha High [facility] 05-22-2023 12:20-0400 Body weight 118.[address] [facility] 04-03-2023 09:06-0400 Body temperature 97.59 [degF] Elsa Bakari 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 Work Phone: [facility] 04-03-2023 09:06-0400 Diastolic blood pressure 78 mm[Hg] Elsa Bakari 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 Work Phone: [facility] 04-03-2023 09:06-0400 Heart rate 69 /min Elsa Bakari 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 Work Phone: [facility] 04-03-2023 09:06-0400 Respiratory rate 18 /min Elsa Bakari 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 Work Phone: [facility] 04-03-2023 09:06-0400 SaO2% (BldA) [Mass fraction] 98 % Elsa Bakari 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 Work Phone: [facility] 04-03-2023 09:06-0400 Systolic blood pressure 118 mm[Hg] Elsa Bakari 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 Work Phone: [facility] 03-24-2023 15:46-0400 Body temperature 98.01 [degF] Leonor Funes PT Work Phone: [facility] 03-24-2023 15:46-0400 Diastolic blood pressure 74 mm[Hg] Leonor Funes PT Work Phone: [facility] 03-24-2023 15:46-0400 Heart rate 76 /min Leonor Funes PT Work Phone: [facility] 03-24-2023 15:46-0400 Respiratory rate 18 /min Leonor Peacederman-Edwards PT Work Phone: [facility] 03-24-2023 15:46-0400 SaO2% (BldA) [Mass fraction] 98 % Leonor Halderman-Edwards PT Work Phone: [facility] 03-24-2023 15:46-0400 Systolic blood pressure 144 mm[Hg] Leonor Halderman-Edwards PT Work Phone: [facility] 03-22-2023 09:56-0400 Body temperature 97.81 [degF] Leonor Halderman-Edwards PT Work Phone: [facility] 03-22-2023 09:56-0400 Diastolic blood pressure 70 mm[Hg] Leonor Halderman-Edwards PT Work Phone: [facility] 03-22-2023 09:56-0400 Heart rate 74 /min Leonor Peacederman-Edwards PT Work Phone: [facility] 03-22-2023 09:56-0400 Respiratory rate 16 /min Leonor Halderman-Edwards PT Work Phone: [facility] 03-22-2023 09:56-0400 SaO2% (BldA) [Mass fraction] 99 % Leonor Peacederman-Edwards PT Work Phone: [facility] 03-22-2023 09:56-0400 Systolic blood pressure 138 mm[Hg] Leonor Halderman-Edwards PT Work Phone: [facility] 03-20-2023 14:57-0400 Diastolic blood pressure 60 mm[Hg] Donnie Josie 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 Work Phone: [facility] 03-20-2023 14:57-0400 Heart rate 67 /min Donnie Josie 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 Work Phone: [facility] 03-20-2023 14:57-0400 Respiratory rate 16 /min Donnie Josie 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 Work Phone: [facility] 03-20-2023 14:57-0400 SaO2% (BldA) [Mass fraction] 99 % Donnie Boycer 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 Work Phone: [facility] 03-20-2023 14:57-0400 Systolic blood pressure 112 mm[Hg] Donnie QuirozJosie 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 Work Phone: [facility] 03-20-2023 14:24-0400 Body temperature 98.29 [degF] Donnie Boycer 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 Work Phone: [facility] 03-17-2023 14:13-0400 Diastolic blood pressure 58 mm[Hg] Leonor Hi-Jerry PT Work Phone: [facility] 03-17-2023 14:13-0400 Heart rate 77 /min Leonor Funes PT Work Phone: [facility] 03-17-2023 14:13-0400 SaO2% (BldA) [Mass fraction] 99 % Leonor Funes PT Work Phone: [facility] 03-17-2023 14:13-0400 Systolic blood pressure 118 mm[Hg] Leonor Hi-Jerry PT Work Phone: [facility] 03-17-2023 13:00-0400 Body temperature 97.9 [degF] Leonor Funes PT Work Phone: [facility] 03-17-2023 13:00-0400 Respiratory rate 18 /min Leonor Funes PT Work Phone: [facility] 02-27-2023 10:38-0400 Body height 168.9 cm Pacc 1 Work Phone: [facility] 02-27-2023 10:38-0400 Body temperature 97.2 [degF] Pacc 1 Work Phone: [facility] 02-27-2023 10:38-0400 Body weight 117.94 kg Pacc 1 Work Phone: [facility] 02-27-2023 10:38-0400 Diastolic blood pressure 74 mm[Hg] Pacc 1 Work Phone: [facility] 02-27-2023 10:38-0400 Heart rate 63 /min Pacc 1 Work Phone: [facility] 02-27-2023 10:38-0400 Respiratory rate 16 /min Pacc 1 Work Phone: [facility] 02-27-2023 10:38-0400 SaO2% (BldA) [Mass fraction] 96 % Pacc 1 Work Phone: [facility] 02-27-2023 10:38-0400 Systolic blood pressure 138 mm[Hg] Pacc 1 Work Phone: [facility] 01-23-2023 10:57-0400 Body height 168.4 cm Radhaalexandru Garciason [facility] 01-23-2023 10:57-0400 Body weight 118.98 kg Radha Anila [facility] 12-19-2022 11:03-0400 Body height 168.4 cm Radhaalexandru Garciason [facility] 12-19-2022 11:03-0400 Body weight 118.07 kg Radha Anila [facility] 12-01-2022 13:49-0400 Body temperature 98.91 [degF] Laurie Dahlhausen SILK CREPE MACHINE OPERATOR.MICROGRINDER OPERATOR Work Phone: [facility] 12-01-2022 13:49-0400 Body weight 120.02 kg Laurie Dahlhausen SILK CREPE MACHINE OPERATOR.MICROGRINDER OPERATOR Work Phone: [facility] 12-01-2022 13:49-0400 Diastolic blood pressure 68 mm[Hg] Laurie Dahlhausen SILK CREPE MACHINE OPERATOR.MICROGRINDER OPERATOR Work Phone: [facility] 12-01-2022 13:49-0400 Heart rate 69 /min Laurie Dahlhausen SILK CREPE MACHINE OPERATOR.MICROGRINDER OPERATOR Work Phone: [facility] 12-01-2022 13:49-0400 Respiratory rate 16 /min Laurie Dahlhausen SILK CREPE MACHINE OPERATOR.MICROGRINDER OPERATOR Work Phone: [facility] 12-01-2022 13:49-0400 SaO2% (BldA) [Mass fraction] 96 % Laurie Cee SILK CREPE MACHINE OPERATOR.MICROGRINDER OPERATOR Work Phone: [facility] 12-01-2022 13:49-0400 Systolic blood pressure 139 mm[Hg] Laurie Cee SILK CREPE MACHINE OPERATOR.MICROGRINDER OPERATOR Work Phone: [facility] 11-21-2022 10:19-0400 Body height 169.[address] [facility] 11-21-2022 10:190400 Body weight 120.[address] [facility] 11-16-2022 10:56-0400 Body height 169.3 cm Екатерина Older SILK CREPE MACHINE OPERATOR.MICROGRINDER OPERATOR Work Phone: [facility] 11-16-2022 10:56-0400 Body temperature 98.01 [degF] Екатерина Older SILK CREPE MACHINE OPERATOR.MICROGRINDER OPERATOR Work Phone: [facility] 11-16-2022 10:56-0400 Body weight 121.11 kg Екатерина Older SILK CREPE MACHINE OPERATOR.MICROGRINDER OPERATOR Work Phone: [facility] 11-16-2022 10:56-0400 Diastolic blood pressure 80 mm[Hg] Екатерина Older SILK CREPE MACHINE OPERATOR.MICROGRINDER OPERATOR Work Phone: [facility] 11-16-2022 10:56-0400 Heart rate 68 /min Екатерина Older SILK CREPE MACHINE OPERATOR.MICROGRINDER OPERATOR Work Phone: [facility] 11-16-2022 10:56-0400 Respiratory rate 16 /min Екатерина Older SILK CREPE MACHINE OPERATOR.MICROGRINDER OPERATOR Work Phone: [facility] 11-16-2022 10:56-0400 SaO2% (BldA) [Mass fraction] 97 % Екатерина Older SILK CREPE MACHINE OPERATOR.MICROGRINDER OPERATOR Work Phone: [facility] 11-16-2022 10:56-0400 Systolic blood pressure 132 mm[Hg] Екатерина Older SILK CREPE MACHINE OPERATOR.MICROGRINDER OPERATOR Work Phone: [facility] 10-07-2022 13:38-0500 Body height 172.[address] Helen Chapa Work Phone: [facility] 10-07-2022 13:38-0500 Body mass index (BMI) [Ratio] 40.7 kg/m2 Dr. Helen Chapa Work Phone: [facility] 10-07-2022 13:38-0500 Body weight 121.[address] Helen Chapa Work Phone: [facility] 10-07-2022 13:38-0500 Diastolic blood pressure 67 mm[Hg] Dr. Helen Chapa Work Phone: [facility] 10-07-2022 13:38-0500 Heart rate 72 /min Dr. Helen Chapa Work Phone: [facility] 10-07-2022 13:38-0500 Respiratory rate 18 /min Dr. Helen Chapa Work Phone: [facility] 10-07-2022 13:38-0500 Systolic blood pressure 120 mm[Hg] Dr. Helen Chapa Work Phone: [facility] 10-03-2022 08:01-0500 Body height 170.[address] [facility] 10-03-2022 08:01-0500 Body weight 121.[address] [facility] 09-30-2022 09:54-0500 Body weight 119.57 kg Hollie Blevins Jr., MD Work Phone: [facility] 09-30-2022 09:54-0500 Diastolic blood pressure 98 mm[Hg] Hollie Blevins Jr., MD Work Phone: [facility] 09-30-2022 09:54-0500 Heart rate 87 /min Hollie Blevins Jr., MD Work Phone: [facility] 09-30-2022 09:54-0500 Respiratory rate 16 /min Hollie Blevins Jr., MD Work Phone: [facility] 09-30-2022 09:54-0500 SaO2% (BldA) [Mass fraction] 98 % Hollie Blevins Jr., MD Work Phone: [facility] 09-30-2022 09:54-0500 Systolic blood pressure 156 mm[Hg] Hollie Blevins Jr., MD Work Phone: [facility] 08-22-2022 10:21-0500 Body height 170.[address] [facility] 08-22-2022 10:21-0500 Body weight 125.[address] [facility] 08-17-2022 14:00-0500 Body weight 124.29 kg Екатерина Older SILK CREPE MACHINE OPERATOR.MICROGRINDER OPERATOR Work Phone: [facility] 08-17-2022 14:00-0500 Diastolic blood pressure 84 mm[Hg] Екатерина Older SILK CREPE MACHINE OPERATOR.MICROGRINDER OPERATOR Work Phone: [facility] 08-17-2022 14:00-0500 Heart rate 60 /min Екатерина Older SILK CREPE MACHINE OPERATOR.MICROGRINDER OPERATOR Work Phone: [facility] 08-17-2022 14:00-0500 Respiratory rate 16 /min Екатерина Older SILK CREPE MACHINE OPERATOR.MICROGRINDER OPERATOR Work Phone: [facility] 08-17-2022 14:00-0500 Systolic blood pressure 142 mm[Hg] Екатерина Older SILK CREPE MACHINE OPERATOR.MICROGRINDER OPERATOR Work Phone: [facility] 06-27-2022 10:12-0500 Body height 170.[address] [facility] 06-27-2022 10:12-0500 Body weight 121.[address] [facility] 05-19-2022 11:26-0400 Body temperature 97.5 [degF] Laurie Dahlhausen SILK CREPE MACHINE OPERATOR.MICROGRINDER OPERATOR Work Phone: [facility] 05-19-2022 11:26-0400 Body weight 123.38 kg Laurie Dahlhausen SILK CREPE MACHINE OPERATOR.MICROGRINDER OPERATOR Work Phone: [facility] 05-19-2022 11:26-0400 Diastolic blood pressure 82 mm[Hg] Laurie Dahlhausen SILK CREPE MACHINE OPERATOR.MICROGRINDER OPERATOR Work Phone: [facility] 05-19-2022 11:26-0400 Heart rate 66 /min Laurie Dalucashausen SILK CREPE MACHINE OPERATOR.MICROGRINDER OPERATOR Work Phone: [facility] 05-19-2022 11:26-0400 Respiratory rate 18 /min Laurie Dalucashausen SILK CREPE MACHINE OPERATOR.MICROGRINDER OPERATOR Work Phone: [facility] 05-19-2022 11:26-0400 SaO2% (BldA) [Mass fraction] 95 % Laurie Dahlhausen SILK CREPE MACHINE OPERATOR.MICROGRINDER OPERATOR Work Phone: [facility] 05-19-2022 11:26-0400 Systolic blood pressure 138 mm[Hg] Laurie Dalucashausen SILK CREPE MACHINE OPERATOR.MICROGRINDER OPERATOR Work Phone: [facility] 05-16-2022 10:59-0400 Body height 170.[address] [facility] 05-16-2022 10:59-0400 Body weight 125.[address] [facility] 05-02-2022 10:37-0400 Diastolic blood pressure 56 mm[Hg] Randi Jimenez MD Work Phone: [facility] 05-02-2022 10:37-0400 Heart rate 71 /min Randi Jimenez MD Work Phone: [facility] 05-02-2022 10:37-0400 Respiratory rate 20 /min Randi Jimenez MD Work Phone: [facility] 05-02-2022 10:37-0400 SaO2% (BldA) [Mass fraction] 97 % Randi Jimenez MD Work Phone: [facility] 05-02-2022 10:37-0400 Systolic blood pressure 132 mm[Hg] Randi Jimenez MD Work Phone: [facility] 05-02-2022 10:30-0400 Body height 170.2 cm Randi Jimenez MD Work Phone: [facility] 05-02-2022 10:30-0400 Body weight 121.56 kg Randi Jimenez MD Work Phone: [facility] 04-22-2022 13:02-0400 Body height 170.2 cm Pacc 1 Work Phone: [facility] 04-22-2022 13:02-0400 Body temperature 98.1 [degF] Pacc 1 Work Phone: [facility] 04-22-2022 13:02-0400 Body weight 122.02 kg Pacc 1 Work Phone: [facility] 04-22-2022 13:02-0400 Diastolic blood pressure 84 mm[Hg] Pacc 1 Work Phone: [facility] 04-22-2022 13:02-0400 Heart rate 64 /min Pacc 1 Work Phone: [facility] 04-22-2022 13:02-0400 Respiratory rate 16 /min Pacc 1 Work Phone: [facility] 04-22-2022 13:02-0400 SaO2% (BldA) [Mass fraction] 95 % Pacc 1 Work Phone: [facility] 04-22-2022 13:02-0400 Systolic blood pressure 138 mm[Hg] Pacc 1 Work Phone: [facility] 04-15-2022 15:26-0400 Body height 172.[address] Helen Chapa Work Phone: [facility] Work Phone: 04-15-2022 15:26-0400 Body mass index (BMI) [Ratio] 41.3 kg/m2 Dr. Helen Chapa Work Phone: [facility] Work Phone: 04-15-2022 15:26-0400 Body weight 123.[address] Helen Chapa Work Phone: [facility] Work Phone: 04-15-2022 15:26-0400 Diastolic blood pressure 74 mm[Hg] Dr. Helen Chapa Work Phone: [facility] Work Phone: 04-15-2022 15:26-0400 Heart rate 71 /min Dr. Helen Chapa Work Phone: [facility] Work Phone: 04-15-2022 15:26-0400 Respiratory rate 18 /min Dr. Helen Chapa Work Phone: [facility] Work Phone: 04-15-2022 15:26-0400 SaO2% (BldA) [Mass fraction] 95 % Dr. Helen Chapa Work Phone: [facility] Work Phone: 04-15-2022 15:26-0400 Systolic blood pressure 159 mm[Hg] Dr. Helen Chapa Work Phone: [facility] Work Phone: 03-28-2022 13:01-0400 Body height 170.2 cm Radha High [facility] 03-28-2022 13:01-0400 Body weight 122.92 kg Radha High [facility] 02-28-2022 09:30-0400 Body height 170.2 cm Radha High [facility] 02-28-2022 09:30-0400 Body weight 126.24 kg Radha High [facility] 12-27-2021 11:35-0400 Body mass index (BMI) [Ratio] 43.4 kg/m2 Dr. Helen Chapa Work Phone: [facility] Work Phone: 12-27-2021 11:35-0400 Body weight 129.[address] Helen Chapa Work Phone: [facility] Work Phone: 12-27-2021 11:35-0400 Diastolic blood pressure 80 mm[Hg] Dr. Helen Chapa Work Phone: [facility] Work Phone: 12-27-2021 11:35-0400 Heart rate 69 /min Dr. Helen Chapa Work Phone: [facility] Work Phone: 12-27-2021 11:35-0400 Respiratory rate 20 /min Dr. Helen Chapa Work Phone: [facility] Work Phone: 12-27-2021 11:35-0400 SaO2% (BldA) [Mass fraction] 97 % Dr. Helen Chapa Work Phone: [facility] Work Phone: 12-27-2021 11:35-0400 Systolic blood pressure 127 mm[Hg] Dr. Helen Chapa Work Phone: [facility] Work Phone: 11-30-2021 13:07-0400 Body height 170.1 cm Bri Romero SILK CREPE MACHINE OPERATOR.MICROGRINDER OPERATOR Work Phone: [facility] 11-30-2021 13:07-0400 Body weight 132 kg Bri Romero SILK CREPE MACHINE OPERATOR.MICROGRINDER OPERATOR Work Phone: [facility] 11-30-2021 13:07-0400 Diastolic blood pressure 64 mm[Hg] Bri Romero SILK CREPE MACHINE OPERATOR.MICROGRINDER OPERATOR Work Phone: [facility] 11-30-2021 13:07-0400 Heart rate 64 /min Bri Romero SILK CREPE MACHINE OPERATOR.MICROGRINDER OPERATOR Work Phone: [facility] 11-30-2021 13:07-0400 SaO2% (BldA) [Mass fraction] 95 % Bri Romeor SILK CREPE MACHINE OPERATOR.MICROGRINDER OPERATOR Work Phone: [facility] 11-30-2021 13:07-0400 Systolic blood pressure 120 mm[Hg] Bri Romero SILK CREPE MACHINE OPERATOR.MICROGRINDER OPERATOR Work Phone: [facility] 11-29-2021 10:45-0400 Body temperature 97.39 [degF] Hollie Blevins Jr., MD Work Phone: [facility] 11-29-2021 10:45-0400 Body weight 132.45 kg Hollie Blevins Jr., MD Work Phone: [facility] 11-29-2021 10:45-0400 Diastolic blood pressure 86 mm[Hg] Hollie Blevins Jr., MD Work Phone: [facility] 11-29-2021 10:45-0400 Heart rate 104 /min Hollie Blevins Jr., MD Work Phone: [facility] 11-29-2021 10:45-0400 Respiratory rate 18 /min Hollie Blevins Jr., MD Work Phone: [facility] 11-29-2021 10:45-0400 SaO2% (BldA) [Mass fraction] 97 % Hollie Blevins Jr., MD Work Phone: [facility] 11-29-2021 10:45-0400 Systolic blood pressure 138 mm[Hg] Hollie Blevins Jr., MD Work Phone: [facility] 11-17-2021 13:35-0400 Body height 170.2 cm Mckinley POWER-C Work Phone: [facility] 11-17-2021 13:35-0400 Body weight 132.81 kg Mckinley Jacobsen PA-C Work Phone: [facility] 11-17-2021 13:35-0400 Diastolic blood pressure 52 mm[Hg] Mckinley POWER-C Work Phone: [facility] 11-17-2021 13:35-0400 Heart rate 66 /min Mckinley Jacobsen PA-C Work Phone: [facility] 11-17-2021 13:35-0400 SaO2% (BldA) [Mass fraction] 96 % Mckinley Jacobsen PA-C Work Phone: [facility] 11-17-2021 13:35-0400 Systolic blood pressure 146 mm[Hg] Mckinley Jacobsen PA-C Work Phone: [facility] 11-08-2021 11:00-0400 Body height 170.[address] [facility] 11-08-2021 11:00-0400 Body weight 135.[address] [facility] 03-03-2021 12:00-0400 Heart rate 59 /min Fabian Lynch MD Work Phone: [facility] Work Phone: 03-03-2021 12:00-0400 SaO2% (BldA) [Mass fraction] 91 % Fabian Lynch MD Work Phone: [facility] Work Phone: 03-03-2021 11:38-0400 Body temperature 98.01 [degF] Fabian Lynch MD Work Phone: [facility] Work Phone: 03-03-2021 11:38-0400 Diastolic blood pressure 63 mm[Hg] Fabian Lynch MD Work Phone: [facility] Work Phone: 03-03-2021 11:38-0400 Respiratory rate 12 /min Fabian Lynch MD Work Phone: [facility] Work Phone: 03-03-2021 11:38-0400 Systolic blood pressure 113 mm[Hg] Fabian Lynch MD Work Phone: [facility] Work Phone: 03-02-2021 06:00-0400 Body mass index (BMI) [Ratio] 46.34 kg/m2 Fabian Lynch MD Work Phone: [facility] Work Phone: 03-02-2021 06:00-0400 Body weight 134.2 kg Fabian Lynch MD Work Phone: [facility] Work Phone: 03-01-2021 16:30-0400 Body height 170.2 cm Fabian Lynch MD Work Phone: [facility] Work Phone: Encounters Encounter Date Encounter Type Care Provider Facility Start: 06-02-2025 End: 06-04-2025 ambulatory HELENRA CHAPA Facility:[facility] Start: 05-29-2025 End: 05-29-2025 ambulatory ЕКАТЕРИНА ESCALANTE Facility:[facility] Start: 05-29-2025 Patient encounter procedure ЕКАТЕРИНА OLDER [facility] Start: 05-27-2025 End: 05-27-2025 ambulatory LETY VETOVITZ Facility:[facility] Start: 05-26-2025 End: 05-26-2025 ambulatory ALTAGRACIA DOUGIE Facility:[facility] Start: 05-12-2025 ambulatory LETY VETOVITZ Facilit y:[facility] Start: 05-12-2025 End: 05-12-2025 ambulatory LETY VETOVITZ Facility:[facility] Start: 04-30-2025 End: 04-30-2025 Orders Only Lety Haywood PA-C Work Phone: Orthopaedics Comment on above: History of right hip replacement (Primary Dx); Primary osteoarthritis of right hip Start: 04-23-2025 End: 04-24-2025 Telephone encounter Altagracia Constantino APRN.MICROGRINDER OPERATOR Work Phone: Neurology Start: 04-23-2025 End: 04-23-2025 Patient encounter procedure Altagraciakrissy Hubbardne SILK CREPE MACHINE OPERATOR.MICROGRINDER OPERATOR Work Phone: Neurology Comment on above: RLS (restless legs s yndrome) (Primary Dx); Iron deficiency anemia, unspecified iron deficiency anemia type Start: 04-23-2025 End: 04-23-2025 ambulatory ALTAGRACIA CONSTANTINO Facility:[facility] Start: 04-21-2025 End: 04-21-[address] [facility] Comment on above: Reassessment; Patien t Education Start: 04-21-2025 End: 04-21-[address] [facility] Start: 03-10-2025 End: 03-10-[address] [facility] Comment on above: Reassessment; Patien t Education Start: 03-10-2025 End: 03-10-[address] [facility] Start: 02-27-2025 End: 04-29-2025 Follow-up encounter Екатерина Escalante APRN.CNP Work Phone: [facility] Start: 02-24-2025 End: 02-24-2025 [facility] Facility:[facility] Start: 02-24-2025 End: 02-24-2025 Office outpatient visit 25 minutes Екатерина Escalante APRN.CNP Work Phone: [facility] [place] Comment on above: Multiple joint pain (Primary Dx); Other fatigue; Decreased mobility; Essential hypertension, benign; Primary osteoarthritis of right hand; Primary osteoarthritis, left hand; Type 2 diabetes mellitus without complication, without long-term current use of insulin ([facility]); RLS (restless legs syndrome); Loneliness Start: 02-24-2025 End: 02-24-2025 [facility] Facility:[facility] Start: 02-17-2025 End: 02-20-2025 Refill Helen Chapa MD Work Phone: [facility] [place] Comment on above: Refill Request Start: 02-04-2025 End: 02-04-2025 Patient encounter procedure Anderson Mims Work Phone: Podiatry Comment on above: Hammer toes of both feet (Primary Dx); Callus; Diabetic polyneuropathy associated with type 2 diabetes mellitus (HCC) Start: 02-04-2025 End: 02-04-2025 [facility] Facility:[facility] Start: 01-29-2025 End: 03-31-2025 Follow-up encounter Anderson Mims Work Phone: Podiatry Start: 01-29-2025 End: 01-29-2025 [facility] Facility:[facility] Start: 01-27-2025 End: 01-27-[address] [facility] Comment on above: Reassessment; Myron pablo Education Start: 01-27-2025 End: 01-27-[address] [facility] Start: 01-21-2025 End: 01-23-2025 ambulatory Hollie Blevins MD Work Phone: Neurology Comment on above: [employer] denial Start: 01-20-2025 End: 02-11-2025 Telephone encounter Hollie Blevins MD Work Phone: Neurology Comment on above: Insurance Authorizat ion ([employer]) Start: 01-20-2025 End: 01-20-2025 Patient encounter procedure Hollie Blevins MD Work Phone: Neurology Comment on above: RLS (restless legs s yndrome) (Primary Dx); Iron deficiency anemia, unspecified iron deficiency anemia type; MAURICE (obstructive sleep apnea); Class 3 severe obesity with body mass index (BMI) of 40.0 to 44.9 in adult, unspecified obesity type, unspecified whether serious comorbidity present (HCC) Start: 01-20-2025 End: 01-20-2025 ambulatory HOLLIE BLEVINS JR Facility:[facility] Start: 01-17-2025 End: 01-20-2025 Telephone encounter Hollie Blevins MD Work Phone: Neurology Comment on above: Patient Update Start: 12-29-2024 End: 01-08-2025 Telephone encounter Altagracia Constantino APRN.MICROGRINDER OPERATOR Work Phone: Neurology Comment on above: Insurance Authorizat ion (Gabapentin) Start: 12-27-2024 End: 02-26-2025 Follow-up encounter Anderson Mims Work Phone: Podiatry Start: 12-27-2024 End: 12-27-2024 Telephone encounter Altagracia Constantino APRN.MICROGRINDER OPERATOR Work Phone: [facility] Comment on above: Medication Problem Start: 12-23-2024 ambulatory [facility] Facility:[facility] Start: 12-23-2024 End: 12-23-2024 Subsequent hospital visit by physician Netta [facility] [place] Work Phone: Radiology Comment on above: Hammer toes of both feet [M20.41, M20.42] Start: 12-23-2024 End: 12-23-2024 Patient encounter procedure Anderson Mims Work Phone: Podiatry Comment on above: Hammer toes of both feet (Primary Dx); Callus; Diabetic polyneuropathy associated with type 2 diabetes mellitus (HCC); Diminished pulses in lower extremity Start: 12-23-2024 End: 12-23-2024 [facility] Facility:[facility] Start: 12-12-2024 End: 12-26-2024 ambulatory Hollie Blevins MD Work Phone: Neurology Comment on above: Horizantdenial Start: 12-09-2024 End: 12-09-2024 ambulatory [facility] Facility:[facility] Start: 11-27-2024 End: 12-25-2024 Refill Helen Chapa MD Work Phone: [facility] [place] Comment on above: Refill Request Medication Problem ( [employer]) Start: 11-25-2024 End: 12-02-2024 Telephone encounter Helen Chapa MD Work Phone: [facility] [place] Start: 11-22-2024 End: 11-22-2024 ambulatory [facility] Facility[facility] Start: 11-04-2024 End: 11-04-2024 Telephone encounter Helen Chapa MD Work Phone: [facility] [place] Comment on above: Insurance Authorizat ion Start: 10-28-2024 End: 10-28-[address] [facility] Comment on above: Reassessment; Patien t Education Start: 10-28-2024 End: 10-28-[address] [facility] Start: 10-14-2024 End: 10-14-2024 ambulatory [facility] Facility:[facility] Start: 10-14-2024 End: 10-14-2024 Patient encounter procedure Georgette Bautista APRN.CNP Work Phone: [facility] Comment on above: Sinobronchitis (Prim everette Dx) Start: 09-09-2024 End: 09-09-[address] [facility] Comment on above: Reassessment; Patien t Education Start: 09-09-2024 End: 09-09-[address] [facility] Start: 08-26-2024 End: 08-26-2024 Patient encounter procedure Екатерина Ava GREG.MICROGRINDER OPERATOR Work Phone: [facility] [place] Comment on above: Acute pain of right shoulder (Primary Dx); Acute non-recurrent sinusitis, unspecified location; Type 2 diabetes mellitus with other specified complication, without long-term current use of insulin (HCC); Hypothyroidism, unspecified type; Mixed hyperlipidemia; Essential hypertension, benign Start: 08-26-2024 End: 08-26-2024 ambulatory ЕКАТЕРИНА ESCALANTE Facility:[facility] Start: 08-20-2024 End: 08-20-2024 ambulatory ALTAGRACIA DOUGIE Facility:[facility] Start: 07-26-2024 End: 07-26-2024 Refill Helen Chapa MD Work Phone: [facility] [place] Comment on above: Refill Request Start: 06-24-2024 End: 06-24-[address] [facility] Comment on above: Reassessment; Patien t Education Start: 06-24-2024 End: 06-24-[address] [facility] Start: 06-21-2024 End: 06-21-2024 Patient encounter procedure Altagracia Constantino APRN.MICROGRINDER OPERATOR Work Phone: Neurology Comment on above: RLS (restless legs s yndrome) (Primary Dx); Iron deficiency anemia, unspecified iron deficiency anemia type; Vitamin D deficiency Start: 06-21-2024 End: 06-21-2024 ambulatory ALTAGRACIA CONSTANTINO Facility:[facility] Start: 06-06-2024 End: 06-13-2024 Refill Helen Chapa MD Work Phone: [facility] [place] Comment on above: Refill Request Start: 05-13-2024 End: 05-13-[address] [facility] Start: 05-13-2024 End: 05-13-[address] [facility] Comment on above: Reassessment; Patien t Education Start: 05-01-2024 End: 05-02-2024 Telephone encounter Helen Chapa MD Work Phone: [facility] [place] Comment on above: Patient Question Start: 04-05-2024 End: 04-05-2024 ambulatory Payton Bruno NP Facility:[facility] Start: 04-01-2024 End: 04-01-[address] [facility] Therapy Start: 04-01-2024 End: 04-01-[address] Nutrition Therapy Comment on above: Reassessment; Patien t Education Start: 03-05-2024 Documentation procedure Mammog cecile Coordinator [facility] Start: 03-05-2024 Letter encounter Mammography Coordinator [facility] Start: 03-04-2024 End: 03-04-2024 Subsequent hospital visit by physician Screen Mammo [facility] Mammogram Comment on above: Encounter for screen ing mammogram for malignant neoplasm of breast [Z12.31] Start: 03-01-2024 Telephone encounter Helen velásquez MD Work Phone: Internal Medicine [place] Comment on above: Patient Request Start: 02-21-2024 End: 02-21-2024 Patient encounter procedure Екатерина Escalante APRN.CNP Work Phone: Internal Medicine [place] Comment on above: Type 2 diabetes filemon itus without complication, without long- term current use of insulin (HCC) (Primary Dx); Mixed hyperlipidemia; Essential hypertension, benign; Hypothyroidism, unspecified type; Intertrigo; Encounter for screening mammogram for malignant neoplasm of breast Start: 02-06-2024 ambulatory Hleen June Work Phone: Internal Medicine [facility] Start: 01-31-2024 ambulatory Hedy Owens RN Am bulatory Care Management Comment on above: Community Monitoring Outreach Start: 01-16-2024 Refill Bradley billy MD Work Phone: Ophthalmology Comment on above: Refill Request Start: 01-01-2024 End: 01-01-[address] Nutrition Therapy Start: 01-01-2024 End: 01-01-[address]ha High RD Nutrition Therapy Comment on above: Reassessment; Patien t Education Start: 12-18-2023 End: 12-18-2023 Patient encounter procedure Hollie Blevins MD Work Phone: Neurology Comment on above: RLS (restless legs s yndrome) (Primary Dx); Iron deficiency; Vitamin D deficiency; MAURICE (obstructive sleep apnea); Class 3 severe obesity with body mass index (BMI) of 40.0 to 44.9 in adult, unspecified obesity type, unspecified whether serious comorbidity present (HCC) Start: 11-23-2023 Refill Helen June Work Phone: [facility] Comment on above: Refill Request Start: 11-14-2023 Refill Екатерина KimMICROGRINDER OPERATOR Work Phone: [facility] Comment on above: Refill Request Start: 11-13-2023 Non-patient / Non-visit Dr. Stepan Chapa Work Phone: [facility] Work Phone: Start: 11-13-2023 Non-patient / Non-visit Dr. Stepan Chapa Work Phone: [facility] Work Phone: Start: 11-13-2023 End: 11-13-[address] Helen Chapa Work Phone: [facility] Work Phone: Start: 11-13-2023 End: 11-13-[address] [facility] Work Phone: Start: 11-07-2023 ambulatory Hedy Owens RN Am bulatory Care Management Comment on above: Community Monitoring Outreach Start: 10-29-2023 Refill Tess Giron APRN.MICROGRINDER OPERATOR Work Phone: [facility] Comment on above: Refill Request Start: 10-23-2023 End: 10-23-[address] Nutrition Therapy Comment on above: Reassessment; Patien t Education Start: 10-13-2023 Telephone encounter Helen velásquez MD Work Phone: Internal Medicine [place] Comment on above: Insurance Authorizat ion Start: 10-12-2023 Refill Екатерина Older SILK CREPE MACHINE OPERATOR .MICROGRINDER OPERATOR Work Phone: Internal Medicine [place] Start: 10-11-2023 Telephone encounter Екатерина Escalante SILK CREPE MACHINE OPERATOR.MICROGRINDER OPERATOR Work Phone: Family [facility] Comment on above: Patient Question Start: 10-06-2023 End: 10-06-[address] Helen Chapa Work Phone: [facility] Work Phone: Start: 10-06-2023 End: 10-06-[address] 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); Acute non-recurrent sinusitis, unspecified location; Hypothyroidism, unspecified type; Type 2 diabetes mellitus without complication, without long-term current use of insulin (HCC) Start: 07-20-2023 Refill Екатерина Older SILK CREPE MACHINE OPERATOR .MICROGRINDER OPERATOR Work Phone: Internal Medicine [place] Comment on above: Refill Request Start: 07-19-2023 Refill Helen June Work Phone: Radiology Comment on above: Refill Request Start: 07-05-2023 Refill Екатерина Older SILK CREPE MACHINE OPERATOR .MICROGRINDER OPERATOR Work Phone: Family [facility] Comment on above: Refill Request Start: 07-03-2023 End: 07-03-[address] Nutrition Therapy Comment on above: Patient Education Start: 06-05-2023 End: 06-05-2023 Patient encounter procedure Marco Hernandez MD Work Phone: Orthopaedics Comment on above: History of right hip replacement (Primary Dx); History of total bilateral knee replacement Start: 05-30-2023 Orders Only Marco Hernandez MD Work Phone: Orthopaedics Comment on above: Primary osteoarthrit is of right hip (Primary Dx); History of right hip replacement Start: 05-29-2023 Refill Samira ortega APRN.MICROGRINDER OPERATOR Work Phone: Neurology Start: 05-22-2023 End: 05-22-[address] Nutrition Therapy Comment on above: Patient Education; R eassessment Start: 05-15-2023 End: 05-16-2023 ambulatory SAMIRA SNOW Facility:[facility] Start: 04-24-2023 End: 04-24-2023 Patient encounter procedure Mraco Hernandez MD Work Phone: Orthopaedics Comment on above: History of right hip replacement (Primary Dx) Start: 04-24-2023 End: 04-24-2023 Subsequent hospital visit by physician Netta [facility] [place] Dunaway Work Phone: Radiology Comment on above: Primary osteoarthrit is of right hip [M16.11] Start: 04-18-2023 Orders Only Marco Hernandez MD Work Phone: Orthopaedics Comment on above: Primary osteoarthrit is of right hip (Primary Dx); Primary osteoarthritis of left hip; Status post total replacement of right hip Start: 04-10-2023 Telephone encounter Lety wallace PA-C Work Phone: Orthopaedics Comment on above: FYI-No Action Needed Start: 04-07-2023 ambulatory Hedy Owens RN Am bul[facility] Care Management Comment on above: Community Monitoring Outreach Start: 04-03-2023 End: 04-03-2023 Home visit Elsa Villegas 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 Work Phone: [facility] Comment on above: 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 ROUTINE Start: 03-29-2023 Refill Helen June Work Phone: [facility] Comment on above: Refill Request Start: 03-27-2023 End: 03-27-2023 Patient encounter procedure Lety Haywood PA-C Work Phone: Orthopaedics Comment on above: Primary osteoarthrit is of right hip (Primary Dx) Start: 03-27-2023 End: 03-27-2023 Subsequent hospital visit by physician Xr [facility] Work Phone: Radiology Comment on above: Primary osteoarthrit is of left hip [M16.12] Start: 03-24-2023 End: 03-24-2023 Home visit Leonor Funes PT Work Phone: [facility] Comment on above: PT ROUTINE Start: 03-22-2023 Telephone encounter Leonor Funes PT Work Phone: [facility] Comment on above: Home Care (Post op d ressing removal ) Start: 03-22-2023 End: 03-22-2023 Home visit Rehana Guerra RN Work Phone: [facility] Comment on above: CARE COORDINATION PT ROUTINE Start: 03-20-2023 End: 03-20-2023 Home visit Donnie Galindo 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 Work Phone: [facility] Comment on above: 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 ROUTINE Start: 03-17-2023 End: 03-17-2023 Home visit Leonor Funes PT Work Phone: [facility] Comment on above: PT SOC Start: 03-16-2023 Telephone encounter Bethanie Scott [facility] Comment on above: Home Care (Confirmat ion Call) Start: 03-15-2023 End: 03-16-2023 ambulatory DILLON CARRASQUILLO Facility:[facility] Start: 02-27-2023 End: 02-27-2023 Admission to establishment [facility] Work Phone: [facility] Start: 02-27-2023 End: 02-27-2023 ambulatory Pac [facility] 1 Work Phone: Pre Anesthesia Comment on above: Pre-op evaluation (P rimary Dx); RLS (restless legs syndrome); Fibromyalgia; Essential hypertension, benign; Mixed hyperlipidemia; 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); LBBB (left bundle branch block); 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; Other irritable bowel syndrome; Anxiety and depression; Class 3 severe obesity due to excess calories with serious comorbidity and body mass index (BMI) of 40.0 to 44.9 in adult (HCC); Urinary frequency Start: 02-27-2023 End: 02-27-2023 Preprocedural examination done [facility] [facility] Work Phone: [facility] Work Phone: Start: 02-21-2023 Telephone encounter Marco spencer MD Work Phone: [address] Comment on above: Pre-Op Teaching Start: 02-10-2023 Telephone encounter Marco spencer MD Work Phone: Orthopaedics Comment on above: Patient Update Start: 02-08-2023 Refill Helen June Work Phone: Internal Medicine [place] Comment on above: Refill Request Lab order request Start: 02-01-2023 Telephone encounter Helen velásquez MD Work Phone: Internal Medicine [place] Comment on above: Handicap placard Start: 01-27-2023 Telephone encounter Marco spencer MD Work Phone: Orthopaedics Comment on above: Schedule Surgery Start: 01-26-2023 End: 01-26-2023 Patient encounter procedure Anderson Mims Work Phone: Podiatry Comment on above: Open wound of toe, i nitial encounter (Primary Dx); Class 3 severe obesity without serious comorbidity with body mass index (BMI) of 45.0 to 49.9 in adult, unspecified obesity type ([facility]) Start: 01-23-2023 End: 01-23-[address] Nutrition Therapy Comment on above: Patient Education; R eassessment Start: 01-19-2023 End: 01-19-2023 Patient encounter procedure Marco Hernandez MD Work Phone: Orthopaedics Comment on above: Primary osteoarthrit is of right hip (Primary Dx); Chronic pain of right hip Start: 01-18-2023 Refill Екатерина Escalante APRN .MICROGRINDER OPERATOR Work Phone: Internal Medicine [place] Comment on above: Refill Request Start: 01-10-2023 Documentation procedure Mammog cecile Coordinator [facility] Start: 01-10-2023 Letter encounter Mammography Coordinator [facility] Start: 01-10-2023 End: 01-10-2023 Refill Helen Chapa MD Work Phone: Family [facility] [place] Comment on above: Refill Request Encounter for screen ing mammogram for malignant neoplasm of breast [Z12.31] Primary osteoarthrit is of right hip [M16.11] Start: 12-19-2022 End: 12-19-[address] Nutrition Therapy Comment on above: Reassessment; Patien t Education Start: 12-12-2022 End: 12-12-2022 Patient encounter procedure Anderson Mims Work Phone: Podiatry Comment on above: Onychomycosis (Prima ry Dx); Callus; Hammer toes of both feet; Other diabetic neurological complication associated with type 2 diabetes mellitus (HCC); Class 3 severe obesity without serious comorbidity with body mass index (BMI) of 45.0 to 49.9 in adult, unspecified obesity type (HCC) Start: 12-09-2022 Refill Bradley billy MD Work Phone: Ophthalmology Comment on above: Refill Request Start: 12-02-2022 Refill Екатерина Escalante SILK CREPE MACHINE OPERATOR .MICROGRINDER OPERATOR Work Phone: Internal Medicine [place] Comment on above: Refill Request Start: 12-01-2022 End: 12-01-2022 Patient encounter procedure Laurie Cee APRN.MICROGRINDER OPERATOR Work Phone: Neurology Comment on above: RLS (restless legs s yndrome) (Primary Dx); MAURICE (obstructive sleep apnea) Start: 11-29-2022 End: 11-29-[address] Helen Chapa Work Phone: [facility] Work Phone: Start: 11-29-2022 End: 11-29-[address] Helen Chapa Work Phone: [facility]-Rad[facility], [facility] Start: 11-28-2022 Telephone encounter Lety wallace PA-C Work Phone: Orthopaedics Comment on above: Medical Records Start: 11-21-2022 Telephone encounter Helen velásquez MD Work Phone: Internal Medicine [place] Comment on above: Orders Patient Question Start: 11-21-2022 End: 11-21-[address] Nutrition Therapy Comment on above: Reassessment; Patien t Education Start: 11-16-2022 End: 11-16-2022 Patient encounter procedure Екатерина Escalante APRN.CNP Work Phone: Internal Medicine [place] Comment on above: Medicare annual [facility] visit, subsequent (Primary Dx); Hypothyroidism, unspecified type; Essential hypertension, benign; Type 2 diabetes mellitus with other specified complication, without long-term current use of insulin (HCC); Mixed hyperlipidemia; 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 Helen Chapa Work Phone: [facility] Start: 10-03-2022 Telephone encounter Hollie Blevins MD Work Phone: Neurology Comment on above: Patient Update Start: 10-03-2022 End: 10-03-[address] Nutrition Therapy Comment on above: Reassessment; Patien t Education Start: 09-30-2022 End: 09-30-2022 Patient encounter procedure Hollie Blevins MD Work Phone: Neurology Comment on above: RLS (restless legs s yndrome) (Primary Dx); Iron deficiency anemia, unspecified iron deficiency anemia type; MAURICE (obstructive sleep apnea) Start: 09-19-2022 Telephone encounter Laurie Tejedakatie SILK CREPE MACHINE OPERATOR.MICROGRINDER OPERATOR Work Phone: Neurology Comment on above: Medication Problem Start: 09-16-2022 Telephone encounter Екатерина Escalante APRN.MICROGRINDER OPERATOR Work Phone: Family [facility] [place] Comment on above: Results Start: 09-12-2022 End: 09-12-2022 Patient encounter procedure Randi Jimenez MD Work Phone: OFFICE ASSOCIATE [facility] Comment on above: Post-operative state (Primary Dx); Urinary urgency; Urinary frequency Start: 09-08-2022 Telephone encounter Helen velásquez MD Work Phone: Internal Medicine [place] Comment on above: Glucometer system PA Start: 09-06-2022 Telephone encounter Екатерина Escalante APRN.MICROGRINDER OPERATOR Work Phone: Internal Medicine [place] Comment on above: Orders Start: 08-29-2022 Telephone encounter Екатерина Escalante APRN.MICROGRINDER OPERATOR Work Phone: Internal Medicine [place] Comment on above: Patient Question Start: 08-22-2022 End: 08-22-[address] Nutrition Therapy Comment on above: Reassessment; Patien t Education Start: 08-19-2022 Telephone encounter Helen velásquez MD Work Phone: Internal Medicine [place] Comment on above: Medication Request Start: 08-18-2022 Refill Hollie capellan MD Work Phone: Neurology Comment on above: Refill Request Start: 08-17-2022 End: 08-17-2022 Patient encounter procedure Екатерина Escalante APRN.MICROGRINDER OPERATOR Work Phone: Internal Medicine [place] Comment on above: Essential hypertensi on, benign (Primary Dx); Type 2 diabetes mellitus with other specified complication, without long-term current use of insulin (HCC); Acute non-recurrent frontal sinusitis; Hypothyroidism, unspecified type Start: 07-22-2022 Refill Екатерина Older SILK CREPE MACHINE OPERATOR .MICROGRINDER OPERATOR Work Phone: Internal Medicine [place] Comment on above: Refill Request Start: 07-19-2022 Refill Екатерина Older SILK CREPE MACHINE OPERATOR .MICROGRINDER OPERATOR Work Phone: Internal Medicine [place] Comment on above: Refill Request Start: 06-27-2022 End: 06-27-[address] Nutrition Therapy Comment on above: Reassessment; Patien t Education Start: 06-08-2022 Refill Екатерина Older SILK CREPE MACHINE OPERATOR .MICROGRINDER OPERATOR Work Phone: Internal Medicine [place] Comment on above: Refill Request Start: 06-06-2022 End: 06-06-2022 Patient encounter procedure Carol Mays SILK CREPE MACHINE OPERATOR.MICROGRINDER OPERATOR Work Phone (unformatted): [phone] OFFICE ASSOCIATE [facility] Comment on above: Post-operative state (Primary Dx); Vaginal discharge Start: 06-02-2022 Refill Екатерина Older SILK CREPE MACHINE OPERATOR .MICROGRINDER OPERATOR Work Phone: Family Medicine [place] Comment on above: Refill Request Medication Problem Start: 05-25-2022 Refill Екатерина Older SILK CREPE MACHINE OPERATOR .MICROGRINDER OPERATOR Work Phone: Internal Medicine [place] Comment on above: Refill Request Start: 05-19-2022 End: 05-19-2022 Patient encounter procedure Laurie Cee SILK CREPE MACHINE OPERATOR.MICROGRINDER OPERATOR Work Phone: Neurology Comment on above: RLS (restless legs s yndrome) (Primary Dx); Iron deficiency anemia, unspecified iron deficiency anemia type; MAURICE (obstructive sleep apnea) Start: 05-16-2022 End: 05-16-[address] Nutrition Therapy Comment on above: Reassessment; Patien t Education Start: 05-02-2022 End: 05-02-2022 ambulatory Randi Jimenez MD Work Phone: Urogynecology Comment on above: Procedure (Urodynami cs) Start: 05-02-2022 End: 05-02-2022 Patient encounter procedure Randi Jimenez MD Work Phone: [facility] Start: 05-02-2022 End: 05-02-2022 Patient encounter status Randi Jimenez MD Work Phone: Urogynecology Start: 05-02-2022 End: 05-02-2022 Preprocedural examination done Randi Jimenez MD Work Phone: Urogynecology Start: 04-29-2022 Refill Helen June Work Phone: Internal [facility] [place] Comment on above: Refill Request Start: 04-28-2022 End: 04-28-2022 ambulatory Nurse Television Tube Inspector Work Phone: Gynecology Comment on above: Educational circumst ances (Primary Dx) Start: 04-28-2022 End: 04-28-2022 Telemedicine consultation with patient Nurse Television Tube Inspector Work Phone: [facility] Start: 04-28-2022 Telephone encounter Maria Del Rosario Cooney APRN.MICROGRINDER OPERATOR Work Phone: Pre Anesthesia Comment on above: Returning Patient's Call Start: 04-27-2022 Telephone encounter Maria Del Rosario Cooney APRN.MICROGRINDER OPERATOR Work Phone: Pre Anesthesia Comment on above: Patient Update (Surg larissa instructions) Start: 04-26-2022 ambulatory Randi billy MD Work Phone: OFFICE ASSOCIATE [facility] Comment on above: Cardiac Clearance Start: 04-22-2022 Telephone encounter Maria Del Rosario Cooney APRN.MICROGRINDER OPERATOR Work Phone: Pre Anesthesia Comment on above: Request for outside medical records Start: 04-22-2022 End: 04-22-2022 Admission to establishment [facility] [place] [facility] Work Phone: [facility] Start: 04-22-2022 End: 04-22-2022 ambulatory [facility] [place] 1 Work Phone: Pre Anesthesia Comment on above: Pre-operative examin ation (Primary Dx); Vaginal prolapse; Anxiety and depression; Chronic intractable headache, unspecified headache type; Chronic kidney disease, unspecified CKD stage; Class 3 severe obesity due to excess calories with serious comorbidity and body mass index (BMI) of 40.0 to 44.9 in adult ([facility]); 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 ([facility]); Essential hypertension, benign; Fibromyalgia; Gastroesophageal reflux disease with esophagitis, unspecified whether hemorrhage; Hypothyroidism, unspecified type; Iron deficiency anemia, unspecified iron deficiency anemia type; Mixed hyperlipidemia; 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; RLS (restless legs syndrome); Type 2 diabetes mellitus with other specified complication, without long-term current use of insulin ([facility]); Primary osteoarthritis involving multiple joints; Spinal stenosis of lumbar region with neurogenic claudication Start: 04-22-2022 End: 04-22-2022 Preprocedural examination done [facility] 1 Work Phone: Pre Anesthesia Start: 04-21-2022 Refill Francesco Castrejon APRN.CNP Work Phone: Internal Medicine [place] Comment on above: Refill Request Start: 04-20-2022 Non-patient / Non-visit Dr. Stepan Chapa Work Phone: [facility] Start: 04-20-2022 End: 04-20-[address] Helen Chapa Work Phone: [facility] Work Phone: Start: 04-20-2022 End: 04-20-[address] Helen Chapa Work Phone: [facility]Cardiovascular Services Start: 04-15-[address] Helen Chapa Work Phone: [facility] Start: 04-15-2022 End: 04-15-2022 Admission to same day surgery center Dr. Helen Chapa Work Phone: [facility] Start: 04-15-2022 End: 04-15-[address] Helen Chapa Work Phone: [facility] Start: 04-12-2022 End: 04-12-[address] Helen Chapa Work Phone: [facility] Work Phone: Start: 04-12-2022 End: 04-12-[address] Helen Chapa Work Phone: [facility]-Radiology, [facility] Start: 04-04-2022 Telephone encounter Randi pillai MD Work Phone: Gynecology Comment on above: Patient Question Letter Start: 03-30-2022 Orders Only Hang Frank MD Work Phone: Cardiology Comment on above: Pre-op chest exam (P rimary Dx) Preoperative examina tion (Primary Dx); Cystocele, midline; Rectocele; Vaginal vault prolapse; History of heart artery stent Start: 03-30-2022 Patient encounter status Hang Frank MD Work Phone: Cardiology Start: 03-30-2022 Preprocedural examination done Randi Jimenez MD Work Phone: Urogynecology Start: 03-28-2022 End: 03-28-[address] Nutrition Therapy Comment on above: Reassessment; Patien t Education Start: 03-24-2022 Telephone encounter Randi pillai MD Work Phone: Obstetrics/Gynecology Comment on above: Preparations For Elio saud Start: 03-08-2022 Telephone encounter Helen velásquez MD Work Phone: Internal [facility] [place] Comment on above: Glyburide update FYI-No Action Needed Start: 02-28-2022 End: 02-28-[address] Nutrition Therapy Comment on above: Reassessment; Patien t Education Start: 02-25-2022 End: 02-25-2022 Subsequent hospital visit by physician Netta [facility] Work Phone: Radiology Comment on above: Dwain xavier [M21.4 1, M21.42] Start: 02-21-2022 Refill Helen June Work Phone: Internal Medicine [place] Comment on above: Prescription Refills Start: 01-31-2022 ambulatory Roman Knott RN Am [facility] Comment on above: Insight Escalation ( Flatwork Ironer Questionnaire Triggered call) Start: 01-31-2022 Telephone encounter Helen velásquze MD Work Phone: [address] [place] [address] Comment on above: Lab Orders Start: 01-25-2022 ambulatory Helen June Work Phone: Internal Medicine [facility] Start: 01-24-2022 Refill Helen June Work Phone: Internal Medicine [place] Comment on above: Refill Request Start: 01-03-2022 End: 01-03-2022 Subsequent hospital visit by physician [facility] Work Phone: Radiology Comment on above: Status post total bi lateral knee replacement [Z96.653] Start: 01-03-2022 End: 01-03-2022 Patient encounter procedure Lety Haywood PA-C Work Phone: Orthopaedics Comment on above: Right hip pain (Prim everette Dx); Primary osteoarthritis of right hip; Status post total bilateral knee replacement Start: 01-01-2022 Refill Bri Romero APR N.MICROGRINDER OPERATOR Work Phone: Gastroenterology Comment on above: Refill Request Start: 12-28-2021 Telephone encounter Lety wallace PA-C Work Phone: Orthopaedics Comment on above: follow up right hip pain Start: 12-27-2021 End: 12-27-[address] Helen Chapa Work Phone: [facility] Start: 12-16-2021 Telephone encounter Iris Mustafa MD Work Phone: OB/Gynecology Comment on above: Patient Update Start: 12-13-2021 ambulatory Bri Romero APR N.MICROGRINDER OPERATOR Work Phone: Gastroenterology Comment on above: symptoms Start: 12-06-2021 ambulatory Bri Romero APR N.MICROGRINDER OPERATOR Work Phone: Gastroenterology Comment on above: CHOLESTYRAMINE Start: 12-03-2021 Documentation procedure Mammog cecile Coordinator [facility] Start: 12-03-2021 Letter encounter Mammography Coordinator [facility] Department Start: 11-30-2021 End: 11-30-2021 Patient encounter procedure Bri Romero APRN.CNP Work Phone: Gastroenterology Comment on above: Diarrhea, unspecifie d type (Primary Dx); Dysphagia, unspecified type Refill Request Start: 11-29-2021 End: 11-29-2021 Patient encounter procedure Hollie Blevins MD Work Phone: Neurology Comment on above: Restless legs (Prima ry Dx); Iron deficiency anemia, unspecified iron deficiency anemia type; MAURICE (obstructive sleep apnea); RLS (restless legs syndrome) Start: 11-27-2021 Refill Екатерина Escalante APRN, .CNP Work Phone: Internal Medicine [facility] Comment on above: Refill Request Start: 11-23-2021 Refill Elsa Mayorga APRN.CNP Work Phone: Internal Medicine [place] Comment on above: Refill Request Start: 11-18-2021 ambulatory Roman Knott RN [facility] Care Management Comment on above: Community Monitoring Outreach (CKD CDM Enrollment Outreach) Start: 11-17-2021 End: 11-17-2021 Patient encounter procedure Mckinley Jacobsen PA-C Work Phone: [facility] Comment on above: 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); Somatic dysfunction of lumbar region Start: 11-08-2021 End: 11-08-[address] Nutrition Therapy Comment on above: Patient Education; A ssessment Start: 10-04-2021 End: 10-04-2021 Subsequent hospital visit by physician Netta [facility] Work Phone: Radiology Comment on above: Low back pain, unspe cified back pain laterality, unspecified chronicity, unspecified whether sciatica present [M54.50] Start: 04-13-2021 End: 04-13-2021 Subsequent hospital visit by physician Netta [facility] Work Phone: Radiology Comment on above: Right hip pain [M25. 551] Start: 03-01-2021 End: 03-03-2021 Evaluation and management of inpatient Fabian Lynch MD Work Phone: [facility] Comment on above: Coronary artery dise ase due to calcified coronary lesion (Primary Dx) Start: 07-22-2020 End: 07-22-2020 Subsequent hospital visit by physician Netta [facility] Work Phone: Radiology Comment on above: Fall, initial encoun ter [W19.XXXA] Start: 06-11-2020 End: 06-12-2020 Patient encounter procedure HOLLIE Billy ABDOULAYE [facility] Procedures Date Procedure Procedure Detail Performing Clinician Start: 11-13-2023 Cardiovascular stress test using pharmacologic stress agent Dr. Helen Chapa Work Phone: Start: 04-24-2023 Radex hip unilateral with pelvis 2-3 views Marco Hernandez MD Work Phone: Start: 03-27-2023 Radex hip unilateral with pelvis 2-3 views Lety Vetovitz PA-C Work Phone: Start: 01-10-2023 Radex hip unilateral with pelvis 2-3 views Lety Vetovitz PA-C Work Phone: Start: 01-10-2023 Screening mammography bi 2-view breast inc cad Helen Chapa MD Work Phone: Start: 11-29-2022 End: 11-29-[address] Helen Chapa Work Phone: Start: 06-06-2022 Urnls dip stick/tablet rgnt auto w/o microscopy Carol Mays APRN.MICROGRINDER OPERATOR Work Phone (unformatted): [phone] Start: 05-02-2022 Urnls dip stick/tablet rgnt auto w/o microscopy Randi Jimenez MD Work Phone: Start: 04-20-2022 Cardiovascular stress test using pharmacologic stress agent Dr. Helen Chapa Work Phone: Start: 04-12-[address] Helen Chapa Work Phone: Start: 02-25-2022 Radex foot complete minimum 3 views Anderson Mims Work Phone: Start: 01-03-2022 Radiologic exam knee complete 4/more views Lety Haywood PA-C Work Phone: Start: 10-04-2021 Radex spine lumbosacral 2/3 views Lety Vetovitz PA-C Work Phone: Start: 04-13-2021 Radex hip unilateral with pelvis 2-3 views Francesco Castrejon MICROGRINDER OPERATOR Work Phone: Start: 03-03-2021 Gluc bld gluc mntr dev cleared fda spec home use Fabian Lynch MD Work Phone: Start: 03-03-2021 Gluc bld gluc mntr dev cleared fda spec home use Fabian Lynch MD Work Phone: Start: 03-03-2021 Ecg routine ecg w/least 12 lds w/i&r Sima Man MD Work Phone: Start: 03-03-2021 Comprehensive metabolic panel Sima Man MD Work Phone: Start: 03-02-2021 Gluc bld gluc mntr dev cleared fda spec home use Fabian Lynch MD Work Phone: Start: 03-02-2021 End: 03-02-2021 Gluc bld gluc mntr dev cleared fda spec home use Fabian Lynch MD Work Phone: Start: 03-02-2021 Cardiac catheterization Paulette Cobos MD Work Phone: Start: 03-02-2021 CARDIAC CATH NURSING LOG 3m Scanning Start: 03-02-2021 Coagulation time activated Fabian Lynch MD Work Phone: Start: 03-02-2021 History of placement of stent for coronary artery disease History of coronary artery stent placement Dr. Helen Chapa Work Phone: Start: 03-02-2021 Gluc bld gluc mntr dev cleared fda spec home use Fabian Lynch MD Work Phone: Start: 03-02-2021 Gluc bld gluc mntr dev cleared fda spec home use Fabian Lynch MD Work Phone: Start: 03-02-2021 Dup-scan uxtr art/artl bpgs uni/lmtd study Sima Man MD Work Phone: Start: 03-02-2021 Ecg routine ecg w/least 12 lds w/i&r Sima Man MD Work Phone: Start: 03-02-2021 CK WITH REFLEX CK-MB Sima moffett MD Work Phone: Start: 03-02-2021 CKMB COMMENT Sima Man MD Work Phone: Start: 03-02-2021 End: 03-02-2021 Comprehensive metabolic panel Sima Man MD Work Phone: Start: 03-02-2021 Lipid panel Sima Man MD Work Phone: Start: 03-01-2021 Gluc bld gluc mntr dev cleared fda spec home use Fabian Lynch MD Work Phone: Start: 03-01-2021 CK WITH REFLEX CK-MB Sima moffett MD Work Phone: Start: 03-01-2021 CKMB COMMENT Sima Man MD Work Phone: Start: 03-01-2021 Comprehensive metabolic panel Sima Man MD Work Phone: Start: 03-01-2021 Radiologic exam chest single view Sima Man MD Work Phone: Start: 03-01-2021 Ecg routine ecg w/least 12 lds w/i&r Sima Man MD Work Phone: Start: 07-22-2020 Radex facial bones complete minimum 3 views Alessia Luigi GALANMICROGRINDER OPERATOR Work Phone: History of placement of stent for coronary artery disease History of heart artery stent Randi Jimenez MD Work Phone: Plan of Treatment Date Care Activity Detail Author Start: 01-28-2034 Urine microalbumin profile DTaP,Tdap,Td Vaccine (3 - Td or Tdap) [facility] Start: 02-24-2026 Annual PCP Team Chronic Disease Visit Annual PCP Team Chronic Disease Visit [facility] Start: 02-24-2026 Creatinine measurement Serum Creatinine [facility] Start: 02-24-2026 Hepatitis B screening Urine Albumin:Creatinine Ratio [facility] Start: 02-04-2026 Diabetic foot examination Diabetic Foot Exam [facility] Start: 11-03-2025 End: 11-03-2025 Patient encounter procedure 11/03/2025 10:20 AM EDT Office Visit Neurology [address] [place] [address] Hollie Blevins Jr., MD [address] [place], [place] [id number] 6 month follow up Neurology Comment on above: 6 month follow up Start: 08-27-2025 Hemoglobin A1c measurement HbA1C [facility] Start: 08-26-2025 Annual PCP Team Chronic Disease Visit Annual PCP Team Chronic Disease Visit [facility] Start: 08-26-2025 Covid-19 Vaccine ( season) Covid-19 Vaccine () [facility] Comment on above: Postponed from 04/14/2024 (Declined at t his time) Start: 08-20-2025 Creatinine measurement Serum Creatinine [facility] Start: 08-20-2025 Hepatitis B surface antibody level LDL Cholesterol [facility] Start: 06-02-2025 End: 06-02-2025 Follow-up encounter 06/02/2025 11:00 AM EDT Education Nutrition Therapy [address] [place] [id number] [address]ha [address] [place] [address] 6 week follow up Nutrition Therapy Comment on above: 6 week follow up Start: 05-29-2025 End: 05-29-2025 Patient encounter procedure 05/29/2025 11:00 AM EDT Office Visit Internal Medicine [place] [address] [place] [address] Екатерина Escalante APRN.MICROGRINDER OPERATOR [address] [place] [address] Medicare Internal [facility] Comment on above: Medicare Start: 05-16-2025 Glaucoma screening Dilated Retinal Exam [facility] Start: 05-12-2025 End: 05-12-2025 Patient encounter procedure 05/12/2025 9:30 AM EDT Office Visit Orthopaedics [address] [place] [address] Lety Haywood PA-C [address] [place], [place] [id number] Follow up-hip Orthopaedics Comment on above: Follow up-hip Start: 04-23-2025 End: 07-23-2025 Ferritin [Mass/volume] in Serum or Plasma FERRITIN Lab Routine RLS (restless legs syndrome) Iron deficiency anemia, unspecified iron deficiency anemia type Expected: 04/23/2025, Expires: 07/23/2025 [facility] Work Phone: Comment on above: Expected: 04/23/2025, Expires: Start: 04-23-2025 End: 07-23-2025 Iron and Iron binding capacity panel - Serum or Plasma IRON AND TIBC Lab Routine RLS (restless legs syndrome) Iron deficiency anemia, unspecified iron deficiency anemia type Expected: 04/23/2025, Expires: 07/23/2025 [facility] Comment on above: Expected: 04/23/2025, Expires: Start: 04-23-2025 End: 04-23-2025 Patient encounter procedure 04/23/2025 10:00 AM EDT Office Visit Neurology [address] [place], [place] [id number] Altagracia Constantino APRN.MICROGRINDER OPERATOR [address] [place] [address] 3 month follow up Neurology Comment on above: 3 month follow up Start: 04-21-2025 End: 04-21-2025 Follow-up encounter 04/21/2025 11:00 AM EDT Education Nutrition Therapy [address] [place] [address] [place] [place] [address] 6 week follow up Nutrition Therapy Comment on above: 6 week follow up Start: 04-14-2025 Influenza vaccination [facility] Start: 04-10-2025 End: 04-10-2025 Patient encounter procedure 04/10/2025 10:45 AM EDT Office Visit Podiatry [address] [place] [address] Anderson Mims [address] [facility] [place] [address] 6 week follow up B/L hammer toes Podiatry Comment on above: 6 week follow up B/L hammer toes Start: 03-10-2025 End: 03-10-2025 Follow-up encounter 03/10/2025 11:00 AM EDT Education Nutrition Therapy [address] [place] [address] [place] [address] 6 week follow up Nutrition Therapy Comment on above: 6 week follow up Start: 02-24-2025 End: 05-26-2025 LUAN BY ANGIE LUNA [facility] Work Phone: Comment on above: Expected: 02/24/2025, Expires: Start: 02-24-2025 End: 02-24-2025 Patient encounter procedure 02/24/2025 1:00 PM EDT Office Visit Internal Medicine [place] [address] [place] [address] Екатерина Escalante APRN.MICROGRINDER OPERATOR [address] [place] [address] 6 month follow up Internal Medicine [place] Comment on above: 6 month follow up Start: 02-20-2025 Annual PCP Team Chronic Disease Visit Annual PCP Team Chronic Disease Visit [facility] Start: 02-17-2025 End: 05-19-2025 Basic metabolic 2000 panel - Serum or Plasma BASIC METABOLIC PANEL Lab Routine Type 2 diabetes mellitus with other specified complication, without long-term current use of insulin (HCC) Essential hypertension, benign Expected: 02/17/2025 (Approximate), Expires: 05/19/2025 [facility] Comment on above: Expected: 02/17/2025 (Approximate), Expi res: 05/19/2025 Start: 02-17-2025 End: 05-19-2025 Hemoglobin A1c in Blood HEMOGLOBIN A1C Lab Routine Type 2 diabetes mellitus with other specified complication, without long-term current use of insulin (HCC) Expected: 02/17/2025 (Approximate), Expires: 05/19/2025 [facility] Comment on above: Expected: 02/17/2025 (Approximate), Expi res: 05/19/2025 Start: 02-17-2025 Hemoglobin A1c measurement HbA1C [facility] Start: 02-17-2025 End: 05-19-2025 Thyrotropin [Units/volume] in Serum or Plasma THYROID STIMULATING HORMONE Lab Routine Hypothyroidism, unspecified type Expected: 02/17/2025 (Approximate), Expires: 05/19/2025 [facility] Work Phone: Comment on above: Expected: 02/17/2025 (Approximate), Expi res: 05/19/2025 Start: 02-12-2025 Hepatitis B screening Urine Albumin:Creatinine Ratio [facility] Start: 02-12-2025 Hepatitis B surface antibody level LDL Cholesterol [facility] Start: 02-10-2025 Influenza vaccination Influenza Vaccine (#1) [facility]rez Comment on above: Postponed from 04/14/2024 (Declined at t his time) Start: 02-04-2025 End: 02-04-2025 Patient encounter procedure 02/04/2025 11:00 AM EDT Office Visit Podiatry [address] [place] [address] Anderson Mims [address] [place] [address] follow up after PVR Podiatry Comment on above: follow up after PVR Start: 01-29-2025 End: 01-29-2025 Patient encounter procedure 01/29/2025 11:00 AM EDT Office Visit Vasculary Surgery [address] [place] [address] 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] Vasculary Surgery Comment on above: 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] Start: 01-27-2025 End: 01-27-2025 Follow-up encounter 01/27/2025 11:00 AM EDT Education Nutrition Therapy [address] [place] [address] [place] [address] 6 week follow up Nutrition Therapy Comment on above: 6 week follow up Start: 01-20-2025 End: 01-20-2025 Patient encounter procedure 01/20/2025 10:40 AM EDT Office Visit Neurology [address] [facility] [address] Hollie Blevins Jr., MD [address] [place] [address] 6 month RLS follow up Neurology Comment on above: 6 month RLS follow up Start: 12-17-2024 BP Controlled (<130/80) BP Controlled (<130/80) [facility] Start: 12-09-2024 End: 12-09-2024 Follow-up encounter 12/09/2024 11:00 AM EDT Education Nutrition Therapy [address] [facility] [place] [address] [place] [address] 6-8 week follow up Nutrition Therapy Comment on above: 6-8 week follow up Start: 10-28-2024 End: 10-28-2024 Follow-up encounter 10/28/2024 11:00 AM EDT Education Nutrition Therapy [address] [facility] [place] [address] [place] [address] 6-8 week follow up Nutrition Therapy Comment on above: 6-8 week follow up Start: 09-18-2024 Creatinine measurement Serum Creatinine [facility] Start: 09-09-2024 End: 09-09-2024 Follow-up encounter 09/09/2024 1:00 PM EST Education Nutrition Therapy [address] [place] [address] [place] [address] 6 week follow up Nutrition Therapy Comment on above: 6 week follow up Start: 08-26-2024 End: 08-26-2024 Patient encounter procedure 08/26/2024 2:20 PM EST Office Visit Internal Medicine [place] [address] [place] [address] Екатерина Escalante APRN.MICROGRINDER OPERATOR [address] [place] [address] 6 Month follow up Internal Medicine [facility] Comment on above: 6 Month follow up Start: 08-23-2024 Annual PCP Team Chronic Disease Visit Annual PCP Team Chronic Disease Visit [facility] Start: 08-23-2024 RSV Vaccine (1 - 1-dose 60+ series) RSV Vaccine (1 - 1-dose 60+ series) [facility] Comment on above: Postponed from 2005 (Declined at t his time) Start: 08-19-2024 End: 11-18-2024 CBC panel - Blood by Automated count COMPLETE BLOOD COUNT Lab Routine Type 2 diabetes mellitus without complication, without long-term current use of insulin (HCC) Essential hypertension, benign Expected: 08/19/2024 (Approximate), Expires: 11/18/2024 [facility] Comment on above: Expected: 08/19/2024 (Approximate), Expi res: 11/18/2024 Start: 08-19-2024 End: 11-18-2024 Comprehensive metabolic 2000 panel - Serum or Plasma COMPREHENSIVE METABOLIC PANEL Lab Routine Type 2 diabetes mellitus without complication, without long-term current use of insulin (HCC) Essential hypertension, benign Mixed hyperlipidemia Expected: 08/19/2024 (Approximate), Expires: 11/18/2024 [facility] Comment on above: Expected: 08/19/2024 (Approximate), Expi res: 11/18/2024 Start: 08-19-2024 End: 11-18-2024 Hemoglobin A1c in Blood HEMOGLOBIN A1C Lab Routine Type 2 diabetes mellitus without complication, without long-term current use of insulin (HCC) Expected: 08/19/2024 (Approximate), Expires: 11/18/2024 [facility] Comment on above: Expected: 08/19/2024 (Approximate), Expi res: 11/18/2024 Start: 08-19-2024 End: 11-18-2024 Lipid 1996 panel - Serum or Plasma LIPID PANEL BASIC Lab Routine Mixed hyperlipidemia Expected: 08/19/2024 (Approximate), Expires: 11/18/2024 [facility] Comment on above: Expected: 08/19/2024 (Approximate), Expi res: 11/18/2024 Start: 08-19-2024 End: 11-18-2024 Thyrotropin [Units/volume] in Serum or Plasma THYROID STIMULATING HORMONE Lab Routine Hypothyroidism, unspecified type Expected: 08/19/2024 (Approximate), Expires: 11/18/2024 [facility] Comment on above: Expected: 08/19/2024 (Approximate), Expi res: 11/18/2024 Start: 08-19-2024 End: 08-19-2024 Follow-up encounter 08/19/2024 8:00 AM EST Education Nutrition Therapy [address] [place] [address] Radha High, RD [address] [place] [address] 6 week follow up Nutrition Therapy Comment on above: 6 week follow up Start: 08-15-2024 Hemoglobin A1c measurement HbA1C [facility] Start: 08-14-2024 Advance Directive Discussion Advance Directive Discussion [facility] Start: 08-14-2024 Medicare Advantage Annual Wellness Visit Medicare Advantage Annual Wellness Visit [facility] Start: 06-24-2024 End: 06-24-2024 Follow-up encounter 06/24/2024 12:15 PM EST Education Nutrition Therapy [address] [place] [address] Radha High, [address] [place] [address] 6 week follow up Nutrition Therapy Comment on above: 6 week follow up Start: 06-21-2024 End: 09-20-2024 25-hydroxyvitamin D3 [Mass/volume] in Serum or Plasma VITAMIN D 25 HYDROXY Lab Routine Vitamin D deficiency RLS (restless legs syndrome) Expected: 06/21/2024, Expires: 09/20/2024 [facility] Work Phone: Comment on above: Expected: 06/21/2024, Expires: Start: 06-21-2024 End: 09-20-2024 Ferritin [Mass/volume] in Serum or Plasma FERRITIN Lab Routine RLS (restless legs syndrome) Iron deficiency anemia, unspecified iron deficiency anemia type Expected: 06/21/2024, Expires: 09/20/2024 [facility] Comment on above: Expected: 06/21/2024, Expires: Start: 06-21-2024 End: 09-20-2024 Iron and Iron binding capacity panel - Serum or Plasma IRON AND TIBC Lab Routine RLS (restless legs syndrome) Iron deficiency anemia, unspecified iron deficiency anemia type Expected: 06/21/2024, Expires: 09/20/2024 [facility] Comment on above: Expected: 06/21/2024, Expires: Start: 06-21-2024 End: 06-21-2024 Patient encounter procedure 06/21/2024 10:00 AM EST Office Visit Neurology [address] [place] [address] Altagracia Constantino, GREG.MICROGRINDER OPERATOR [address] [place] [address] 6 month follow up Neurology Comment on above: 6 month follow up Start: 05-30-2024 Covid-19 Vaccine () Covid-19 Vaccine () [facility] Start: 05-18-2024 Annual PCP Team Chronic Disease Visit Annual PCP Team Chronic Disease Visit [facility] Start: 05-18-2024 BP Controlled (<130/80) BP Controlled (<130/80) [facility] Start: 05-18-2024 Covid-19 Vaccine ( season) Covid-19 Vaccine () [facility] Comment on above: Postponed from 04/14/2023 (Declined at t his time) Start: 05-18-2024 Covid-19 Vaccine (4 - Moderna series) Covid-19 Vaccine (4 - Moderna series) [facility] Comment on above: Postponed from 11/23/2021 (Declined at t his time) Start: 05-18-2024 Hepatitis B Vaccine (1 of 3 - Risk 3-dose series) Hepatitis B Vaccine (1 of 3 - Risk 3-dose series) [facility] Comment on above: Postponed from 2005 (Declined at t his time) Start: 05-13-2024 End: 05-13-2024 Follow-up encounter 05/13/2024 10:15 AM EDT Education Nutrition Therapy [address] [place] [address] [place] [address] 6 week follow up Nutrition Therapy Comment on above: 6 week follow up Start: 05-01-2024 Glaucoma screening Dilated Retinal Exam [facility] Start: 05-01-2024 Hepatitis C antibody, confirmatory test Dilated Retinal Exam [facility] Start: 04-14-2024 Covid-19 Vaccine () Covid-19 Vaccine () [facility] Start: 04-14-2024 Influenza vaccination Influenza Vaccine (#1) [facility] Start: 04-05-2024 BP CONTROLLED (<130/80) BP CONTROLLED (<130/80) [facility] Start: 04-03-2024 BP CONTROLLED (<130/80) BP CONTROLLED (<130/80) [facility] Start: 04-01-2024 End: 04-01-2024 Follow-up encounter 04/01/2024 1:00 PM EDT Education Nutrition Therapy [address] [place] [address] [place] [address] 2 month follow up Nutrition Therapy Comment on above: 2 month follow up Start: 03-20-2024 BP CONTROLLED (<130/80) BP CONTROLLED (<130/80) [facility] Start: 03-18-2024 Hemoglobin A1c measurement HbA1C [facility] Start: 03-17-2024 BP CONTROLLED (<130/80) BP CONTROLLED (<130/80) [facility] Start: 03-16-2024 Creatinine measurement Serum Creatinine [facility] Start: 03-16-2024 SERUM CREATININE SERUM CREATININE [facility] Start: 03-04-2024 End: 03-04-2024 Patient encounter procedure 03/04/2024 11:30 AM EDT Appointment Mammogram [address] [place] [address] Encounter for screening mammogram for malignant neoplasm of breast [Z12.31] Mammogram Comment on above: Encounter for screening mammogram for ma lignant neoplasm of breast [Z12.31] Start: 02-28-2024 SERUM CREATININE SERUM CREATININE [facility] Start: 02-26-2024 End: 02-26-2024 Follow-up encounter 02/26/2024 11:00 AM EDT Education Nutrition Therapy [address] [facility] [address] [place] [address] 6 week follow up Nutrition Therapy Comment on above: 6 week follow up Start: 02-21-2024 End: 05-22-2024 Thyrotropin [Units/volume] in Serum or Plasma [facility] Comment on above: Expected: 02/21/2024, Expires: Start: 02-21-2024 End: 05-22-2024 Thyroxine (T4) free [Mass/volume] in Serum or Plasma [facility] Comment on above: Expected: 02/21/2024, Expires: Start: 02-21-2024 End: 05-22-2024 Triiodothyronine (T3) Free [Mass/volume] in Serum or Plasma [facility] Comment on above: Expected: 02/21/2024, Expires: 4 Start: 02-21-2024 End: 02-21-2024 Patient encounter procedure 02/21/2024 10:20 AM EDT Office Visit Internal Medicine [place] [address] [place] [address] Екатерина Escalante APRN.MICROGRINDER OPERATOR [address] [place] [address] 6 month follow up Internal Medicine [place] Comment on above: 6 month follow up Start: 02-06-2024 End: 05-07-2024 Hemoglobin A1c in Blood HEMOGLOBIN A1C Lab Routine Type 2 diabetes mellitus, without long-term current use of insulin (HCC) Expected: 02/06/2024, Expires: 05/07/2024 [facility] Comment on above: Expected: 02/06/2024, Expires: 4 Start: 02-06-2024 End: 05-07-2024 Lipid 1996 panel - Serum or Plasma LIPID PANEL BASIC Lab Routine Mixed hyperlipidemia Expected: 02/06/2024, Expires: 05/07/2024 [facility] Comment on above: Expected: 02/06/2024, Expires: Start: 02-06-2024 End: 05-07-2024 Microalbumin/Creatinine [Mass Ratio] in Urine ALBUMIN/CREATININE RATIO, URINE Lab Routine Type 2 diabetes mellitus, without long-term current use of insulin (HCC) Expected: 02/06/2024, Expires: 05/07/2024 [facility] Work Phone: Comment on above: Expected: 02/06/2024, Expires: 4 Start: 01-27-2024 3 comp foot exam completed DIABETIC FOOT EXAM [facility] Start: 01-27-2024 Diabetic foot examination Diabetic Foot Exam [facility] Start: 01-01-2024 End: 01-01-2024 Follow-up encounter 01/01/2024 11:00 AM EDT Education Nutrition Therapy [address] [place] [facility] [place] [address] Radha High, [place] [address] [place] [address] 6 week follow up Nutrition Therapy Comment on above: 6 week follow up Start: 11-26-2023 Hepatitis B surface antibody level LDL CHOLESTEROL [facility] Start: 11-26-2023 SERUM CREATININE SERUM CREATININE [facility] Start: 11-17-2023 ANNUAL PCP TEAM CHRONIC DISEASE VISIT ANNUAL PCP TEAM CHRONIC DISEASE VISIT [facility] Start: 11-17-2023 Medicare Annual Wellness Visit Medicare Annual Wellness Visit [facility] Start: 11-17-2023 Urine microalbumin profile [facility] Comment on above: Postponed from 06/08/2021 (Declined at t his time) Start: 11-11-2023 Hemoglobin A1c measurement HbA1C [facility] Start: 11-11-2023 Hemoglobin A1c/Hemoglobin.total in Blood HbA1C [facility] Start: 08-23-2023 End: 11-22-2023 ALBUMIN/CREAT RATIO RND UR ALBUMIN/CREAT RATIO RND UR Lab Routine Type 2 diabetes mellitus without complication, without long-term current use of insulin (HCC) Expected: 08/23/2023, Expires: 11/22/2023 [facility] Work Phone: Comment on above: Expected: 08/23/2023, Expires: Start: 08-23-2023 End: 11-22-2023 CBC panel - Blood by Automated count CBC Lab Routine Type 2 diabetes mellitus without complication, without long-term current use of insulin (HCC) Essential hypertension, benign Expected: 08/23/2023, Expires: 11/22/2023 [facility] Work Phone: Comment on above: Expected: 08/23/2023, Expires: Start: 08-23-2023 End: 11-22-2023 Comprehensive metabolic 2000 panel - Serum or Plasma COMP METABOLIC PANEL Lab Routine Type 2 diabetes mellitus without complication, without long-term current use of insulin (HCC) Essential hypertension, benign 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) Expected: 08/23/2023, Expires: 11/22/2023 [facility] Work Phone: Comment on above: Expected: 08/23/2023, Expires: Start: 08-23-2023 End: 11-22-2023 Hemoglobin A1c in Blood HGB A1C Lab Routine Type 2 diabetes mellitus without complication, without long-term current use of insulin (HCC) Expected: 08/23/2023, Expires: 11/22/2023 [facility] Work Phone: Comment on above: Expected: 08/23/2023, Expires: Start: 08-23-2023 End: 11-22-2023 Lipid 1996 panel - Serum or Plasma LIPID PANEL BASIC Lab Routine 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) Expected: 08/23/2023, Expires: 11/22/2023 [facility] Work Phone: Comment on above: Expected: 08/23/2023, Expires: Start: 08-23-2023 End: 11-22-2023 Thyrotropin [Units/volume] in Serum or Plasma TSH BLD Lab Routine Hypothyroidism, unspecified type Expected: 08/23/2023, Expires: 11/22/2023 [facility] Work Phone: Comment on above: Expected: 08/23/2023, Expires: Start: 08-17-2023 ANNUAL PCP TEAM CHRONIC DISEASE VISIT ANNUAL PCP TEAM CHRONIC DISEASE VISIT [facility] Start: 08-17-2023 SERUM CREATININE SERUM CREATININE [facility] Start: 05-27-2023 Hemoglobin A1c/Hemoglobin.total in Blood HBA1C [facility] Start: 05-14-2023 End: 07-14-2023 Hemoglobin A1c in Blood HGB A1C Lab Routine Impaired fasting glucose Expected: 05/14/2023 (Approximate), Expires: 07/14/2023 [facility] Work Phone: Comment on above: Expected: 05/14/2023 (Approximate), Expi res: 07/14/2023 Start: 04-14-2023 Influenza vaccination INFLUENZA (#1) [facility] Start: 04-13-2023 SERUM CREATININE SERUM CREATININE [facility] Start: 03-04-2023 Hepatitis C antibody, confirmatory test DILATED RETINAL EXAM [facility] Start: 02-27-2023 End: 04-29-2023 TYPE AND SCREEN,30 DAY [facility] Work Phone: Comment on above: Expected: 02/27/2023, Expires: 3 Start: 02-14-2023 Hemoglobin A1c/Hemoglobin.total in Blood HBA1C [facility] Start: 02-11-2023 3 comp foot exam completed DIABETIC FOOT EXAM [facility] Start: 02-11-2023 ANNUAL PCP TEAM CHRONIC DISEASE VISIT ANNUAL PCP TEAM CHRONIC DISEASE VISIT [facility] Start: 02-11-2023 COVID-19 VACCINE (4 - Booster for Moderna series) COVID-19 VACCINE (4 - Booster for Moderna series) [facility] Comment on above: Postponed from 01/26/2022 (Declined at t his time) Postponed from 11/23 (Declined at this time) Start: 02-11-2023 SHINGRIX VACCINE (2 of 2) SHINGRIX VACCINE (2 of 2) [facility] Comment on above: Postponed from 07/28/2020 (Declined at t his time) Start: 02-03-2023 HEMOGLOBIN/HEMATOCRIT HEMOGLOBIN/HEMATOCRIT [facility] Start: 02-03-2023 Hepatitis B screening URINE ALBUMIN:CREATININE RATIO [facility] Start: 02-03-2023 Hepatitis B surface antibody level LDL CHOLESTEROL [facility] Start: 12-08-2022 BP CONTROLLED (<130/80) BP CONTROLLED (<130/80) [facility] Start: 11-30-2022 BP CONTROLLED (<130/80) BP CONTROLLED (<130/80) [facility] Start: 11-16-2022 End: 01-16-2023 CBC W Auto Differential panel - Blood CBC + DIFF Lab Routine Essential hypertension, benign Type 2 diabetes mellitus with other specified complication, without long-term current use of insulin (HCC) 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) Expected: 11/16/2022, Expires: 01/16/2023 [facility] Work Phone: Comment on above: Expected: 11/16/2022, Expires: 3 Start: 11-16-2022 End: 01-16-2023 Comprehensive metabolic 2000 panel - Serum or Plasma COMP METABOLIC PANEL Lab Routine Essential hypertension, benign Type 2 diabetes mellitus with other specified complication, without long-term current use of insulin (HCC) Mixed hyperlipidemia 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) Expected: 11/16/2022, Expires: 01/16/2023 [facility] Work Phone: Comment on above: Expected: 11/16/2022, Expires: 3 Start: 11-16-2022 End: 01-16-2023 Hemoglobin A1c in Blood HGB A1C Lab Routine Type 2 diabetes mellitus with other specified complication, without long-term current use of insulin (HCC) 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) Expected: 11/16/2022, Expires: 01/16/2023 [facility] Work Phone: Comment on above: Expected: 11/16/2022, Expires: 3 Start: 11-16-2022 End: 01-16-2023 Lipid 1996 panel - Serum or Plasma LIPID PANEL BASIC Lab Routine Mixed hyperlipidemia 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) Expected: 11/16/2022, Expires: 01/16/2023 [facility] Work Phone: Comment on above: Expected: 11/16/2022, Expires: 3 Start: 11-16-2022 End: 01-16-2023 Thyrotropin [Units/volume] in Serum or Plasma TSH BLD Lab Routine Hypothyroidism, unspecified type Expected: 11/16/2022, Expires: 01/16/2023 [facility] Work Phone: Comment on above: Expected: 11/16/2022, Expires: 3 Start: 11-01-2022 ANNUAL PCP TEAM CHRONIC DISEASE VISIT ANNUAL PCP TEAM CHRONIC DISEASE VISIT [facility] Start: 11-01-2022 Urine microalbumin profile DTAP,TDAP,TD (2 - Td or Tdap) [facility] Comment on above: Postponed from 06/08/2021 (Declined at t his time) Start: 09-03-2022 PNEUMOCOCCAL: 65+ (2 - PPSV23 if available, else PCV20) PNEUMOCOCCAL: 65+ (2 - PPSV23 if available, else PCV20) [facility] Comment on above: Postponed from 06/08/2020 (Declined at t his time) Start: 09-03-2022 PNEUMOCOCCAL: 65+ (2 - PPSV23 or PCV20) PNEUMOCOCCAL: 65+ (2 - PPSV23 or PCV20) [facility] Comment on above: Postponed from 06/08/2020 (Declined at t his time) Start: 09-03-2022 PNEUMOVAX AGE 65 AND OVER WITH 5YR LOOKBACK (#1) PNEUMOVAX AGE 65 AND OVER WITH 5YR LOOKBACK (#1) [facility] Comment on above: Postponed from 2010 (Declined at t his time) Start: 08-18-2022 SERUM CREATININE SERUM CREATININE [facility] Start: 08-14-2022 ADVANCE DIRECTIVE DISCUSSION ADVANCE DIRECTIVE DISCUSSION [facility] Start: 08-05-2022 Hemoglobin A1c/Hemoglobin.total in Blood HBA1C [facility] Start: 05-19-2022 End: 07-19-2022 Ferritin [Mass/volume] in Serum or Plasma [facility] Work Phone: Comment on above: Expected: 05/19/2022, Expires: 2 Start: 05-19-2022 End: 07-19-2022 Iron and Iron binding capacity panel - Serum or Plasma [facility] Work Phone: Comment on above: Expected: 05/19/2022, Expires: 2 Start: 04-15-2022 Evaluation of diagnostic study results [facility] Work Phone: Start: 04-14-2022 Influenza vaccination INFLUENZA (#1) [facility] Start: 04-09-2022 HEMOGLOBIN/HEMATOCRIT HEMOGLOBIN/HEMATOCRIT [facility] Start: 03-19-2022 Hepatitis B screening URINE ALBUMIN:CREATININE RATIO [facility] Start: 03-03-2022 Creatinine measurement Creatinine monitoring [facility] Work Phone: Start: 03-03-2022 Potassium monitoring Potassium monitoring [facility] Work Phone: Start: 02-16-2022 3 comp foot exam completed DIABETIC FOOT EXAM [facility] Start: 02-15-2022 Hemoglobin A1c/Hemoglobin.total in Blood HBA1C [facility] Start: 02-11-2022 Hepatitis B surface antibody level LDL CHOLESTEROL [facility] Start: 02-04-2022 Hepatitis C antibody, confirmatory test DILATED RETINAL EXAM [facility] Start: 02-01-2022 End: 04-03-2022 Lipid 1996 panel - Serum or Plasma LIPID PANEL BASIC Lab Routine Mixed hyperlipidemia Expected: 02/01/2022, Expires: 04/03/2022 [facility] Work Phone: Comment on above: Expected: 02/01/2022, Expires: 2 Start: 02-01-2022 End: 04-03-2022 Thyrotropin [Units/volume] in Serum or Plasma TSH BLD Lab Routine Hypothyroidism, unspecified type Expected: 02/01/2022, Expires: 04/03/2022 [facility] Work Phone: Comment on above: Expected: 02/01/2022, Expires: 2 Start: 01-26-2022 COVID-19 VACCINE (4 - Booster for Moderna series) COVID-19 VACCINE (4 - Booster for Moderna series) [facility] Start: 01-25-2022 End: 03-27-2022 ALBUMIN/CREAT RATIO RND UR ALBUMIN/CREAT RATIO RND UR Lab Routine Type 2 diabetes mellitus, without long-term current use of insulin (HCC) Expected: 01/25/2022, Expires: 03/27/2022 [facility] Work Phone: Comment on above: Expected: 01/25/2022, Expires: 2 Start: 01-25-2022 End: 03-27-2022 CBC panel - Blood by Automated count CBC Lab Routine Type 2 diabetes mellitus, without long-term current use of insulin (HCC) Expected: 01/25/2022, Expires: 03/27/2022 [facility] Work Phone: Comment on above: Expected: 01/25/2022, Expires: 2 Start: 01-25-2022 End: 03-27-2022 Hemoglobin A1c in Blood HGB A1C Lab Routine Type 2 diabetes mellitus, without long-term current use of insulin (HCC) Expected: 01/25/2022, Expires: 03/27/2022 [facility] Work Phone: Comment on above: Expected: 01/25/2022, Expires: 2 Start: 01-25-2022 End: 03-27-2022 SCHEDULE LAB TESTING SCHEDULE LAB TESTING Lab Routine Expected: 01/25/2022, Expires: 03/27/2022 [facility] Work Phone: Comment on above: Expected: 01/25/2022, Expires: 2 Start: 11-29-2021 End: 01-29-2022 FERRITIN BLD FERRITIN BLD Lab Routine Restless legs Iron deficiency anemia, unspecified iron deficiency anemia type Expected: 11/29/2021, Expires: 01/29/2022 [facility] Work Phone: Comment on above: Expected: 11/29/2021, Expires: 2 Start: 11-29-2021 End: 01-29-2022 IRON + TIBC IRON + TIBC Lab Routine Restless legs Iron deficiency anemia, unspecified iron deficiency anemia type Expected: 11/29/2021, Expires: 01/29/2022 [facility] Work Phone: Comment on above: Expected: 11/29/2021, Expires: 2 Start: 11-23-2021 COVID-19 VACCINE (4 - Moderna series) COVID-19 VACCINE (4 - Moderna series) [facility] Start: 06-08-2021 Urine microalbumin profile [facility] Start: 04-14-2021 Influenza vaccination Flu vaccine (#1) [facility] Work Phone: Start: 07-28-2020 SHINGRIX VACCINE (2 of 2) SHINGRIX VACCINE (2 of 2) [facility] Start: 06-08-2020 PNEUMOCOCCAL: 65+ (2 - PPSV23 if available, else PCV20) PNEUMOCOCCAL: 65+ (2 - PPSV23 if available, else PCV20) [facility] Start: 08-03-2019 PNEUMOCOCCAL: 65+ (2 - PPSV23 if available, else PCV20) PNEUMOCOCCAL: 65+ (2 - PPSV23 if available, else PCV20) [facility] Start: 2005 RSV Vaccine (1 - 1-dose 60+ series) RSV Vaccine (1 - 1-dose 60+ series) [facility] Start: 1963 BP CONTROLLED (<130/80) BP CONTROLLED (<130/80) [facility] BACTERIAL VAGINOSIS AMPLIFICATION BACTERIAL VAGINOSIS AMPLIFICATION Lab Routine Vaginal discharge 06/06/2022 2:40 PM EDT [facility] Work Phone (unformatted): [phone] MARILU / TRICHOMONA S AMPLIFICATION MARILU / TRICHOMONAS AMPLIFICATION Microbiology Routine Vaginal discharge 06/06/2022 2:40 PM EDT [facility] Work Phone (unformatted): [phone] CBC panel - Blood by Automated count CBC Lab Routine Daily until discontinued starting 03/01/2021, 3 completed [facility] Work Phone: Comment on above: Daily until discontinued starting 2020, 3 completed CK WITH REFLEX CK-MB CK WITH REF MORTEZA CK-MB Lab Routine 03/01/2021 5:24 PM EDT [facility] Work Phone: Comprehensive metabo lic 2000 panel - Serum or Plasma [facility] Work Phone: Comment on above: Daily until discontinued starting 2020, 2 completed End: 03-30-2023 ECG COMPLETE ECG COMPLETE ECG Routine Pre-op chest exam 1 Occurrences starting 03/30/2022 until 03/30/2023 [facility] Work Phone: Comment on above: 1 Occurrences starting 03/30/2022 until 03/30/2023 EKG 12 lead [facility] Work Phone: Comment on above: Daily until discontinued starting 2020, 3 completed As Needed until disc ontinued starting 03/01/2021 Evaluation of diagno stic study results [facility] Work Phone: Glucose [Mass/volume ] in Serum or Plasma [facility] Work Phone: Comment on above: 4X Daily until discontinued starting 4X Daily (AC & HS) u ntil discontinued starting 03/01/2021 As Needed until disc ontinued starting 03/01/2021 End: 12-22-2023 IMAGING GUIDED ASP/INJ HIP JT/BURSA LEFT IMAGING GUIDED ASP/INJ HIP JT/BURSA LEFT Radiology Routine Primary osteoarthritis of left hip 1 Occurrences starting 11/22/2022 until 12/22/2023 [facility] Work Phone: Comment on above: 1 Occurrences starting 11/22/2022 until 12/22/2023 End: 12-22-2023 IMAGING GUIDED ASP/INJ HIP JT/BURSA RIGHT IMAGING GUIDED ASP/INJ HIP JT/BURSA RIGHT Radiology Routine Primary osteoarthritis of right hip 1 Occurrences starting 11/22/2022 until 12/22/2023 [facility] Work Phone: Comment on above: 1 Occurrences starting 11/22/2022 until 12/22/2023 Magnesium [Mass/volu me] in Serum or Plasma [facility] Work Phone: Comment on above: Daily until discontinued starting 2020, 2 completed End: 12-21-2023 MATTHIAS SCREENING MATTHIAS SCREENING Radiology Routine Encounter for screening mammogram for malignant neoplasm of breast 1 Occurrences starting 11/21/2022 until 12/21/2023 [facility] Work Phone: Comment on above: 1 Occurrences starting 11/21/2022 until 12/21/2023 End: 03-22-2025 MG Breast Screening MATTHIAS SCREENING Radiology Routine Encounter for screening mammogram for malignant neoplasm of breast 1 Occurrences starting 02/21/2024 until 03/22/2025 [facility] Work Phone: Comment on above: 1 Occurrences starting 02/21/2024 until 03/22/2025 MG Breast Screening MATTHIAS SCREENIN G Radiology Routine Encounter for screening mammogram for malignant neoplasm of breast 03/04/2024 11:50 AM EDT [facility] Work Phone: NM Heart Views W str ess and W radionuclide IV [facility] Oxygen therapy [[facility] [place] Initiate Oxygen Therapy Protocol Respiratory Care Routine Daily until discontinued starting 03/01/2021 [facility] Work Phone: Comment on above: Daily until discontinued starting 07/19/ 2021 Patient referral [facility] Work Phone: Phosphate [Mass/volu me] in Serum or Plasma [facility] Work Phone: Comment on above: Daily until discontinued starting 2020, 2 completed Ther px 1/> areas ea ch 15 minutes massage MASSAGE THERAPY Procedures Routine Degeneration of lumbar or lumbosacral intervertebral disc Somatic dysfunction of lumbar region Ordered: 11/17/2021 [facility] Work Phone: Comment on above: Ordered: 11/17/2021 End: 03-01-2021 Troponin I.cardiac [Mass/volume] in Serum or Plasma Troponin Lab Timed Now Then Every 6hr for 2 Occurrences starting 03/01/2021 until 03/01/2021, 1 completed [facility] Work Phone: Comment on above: Now Then Every 6hr for 2 Occurrences sta rting 03/01/2021 until 03/01/2021, 1 completed Troponin I.cardiac [Mass/volume] in Serum or Plasma Troponin Lab Timed 03/01/2021 5:24 PM EDT [facility] Work Phone: US Heart [facility] End: 12-23-2025 US.doppler Extremity arteries - bilateral for physiologic artery study [facility] Vascular Lab Routine Diabetic polyneuropathy associated with type 2 diabetes mellitus (HCC) Diminished pulses in lower extremity 1 Occurrences starting 12/23/2024 until 12/23/2025 [facility] Work Phone: Comment on above: 1 Occurrences starting 12/23/2024 until 12/23/2025 End: 01-22-2026 XR Foot - bilateral AP and Lateral and oblique XR FOOT GENERAL 3V AP/LAT/OBL BILATERAL Radiology Routine Hammer toes of both feet Callus 1 Occurrences starting 12/23/2024 until 01/22/2026 [facility] Comment on above: 1 Occurrences starting 12/23/2024 until 01/22/2026 XR Foot - bilateral AP and Lateral and oblique XR FOOT GENERAL 3V AP/LAT/OBL BILATERAL Radiology Routine Hammer toes of both feet Callus 12/23/2024 12:13 PM EDT [facility] XR FOOT GENERAL 3V AP/LAT/OBL BILATERAL XR FOOT GENERAL 3V AP/LAT/OBL BILATERAL Radiology Routine Fallen arches 02/25/2022 9:01 AM EDT [facility] Work Phone: End: 05-17-2024 XR HIP GENERAL 3V PELV/AP/LAT RIGHT XR HIP GENERAL 3V PELV/AP/LAT RIGHT Radiology Routine Primary osteoarthritis of right hip Status post total replacement of right hip 1 Occurrences starting 04/18/2023 until 05/17/2024 [facility] Work Phone: Comment on above: 1 Occurrences starting 04/18/2023 until 05/17/2024 End: 06-28-2024 XR HIP GENERAL 3V PELV/AP/LAT RIGHT XR HIP GENERAL 3V PELV/AP/LAT RIGHT Radiology Routine Primary osteoarthritis of right hip History of right hip replacement 1 Occurrences starting 05/30/2023 until 06/28/2024 [facility] Work Phone: Comment on above: 1 Occurrences starting 05/30/2023 until 06/28/2024 End: 05-30-2026 XR Pelvis and Hip - right AP and Lateral frog XR HIP GENERAL 3V PELV/AP/LAT RIGHT Radiology Routine History of right hip replacement Primary osteoarthritis of right hip 1 Occurrences starting 04/30/2025 until 05/30/2026 [facility] Work Phone: Comment on above: 1 Occurrences starting 04/30/2025 until 05/30/2026 [facility] [place] [facility] Immunizations Immunization Date Immunization Notes Care Provider Fa christina 05-18-2023 influenza (HD-IIV4) vaccine, age 65+ yr, high dose, quadrivalent, PF (FLUZONE HIGH-DOSE) Radha High RD [facility] 05-18-2023 influenza virus vaccine, unspecified formulation Екатерина Escalante SILK CREPE MACHINE OPERATOR.MICROGRINDER OPERATOR Work Phone: [facility] 04-25-2022 influenza, high dose seasonal, preservative-free Maria Del Rosario Cooney SILK CREPE MACHINE OPERATOR.MICROGRINDER OPERATOR Work Phone: [facility] 05-20-2021 influenza, high-dose , quadrivalent vaccine (FLUZONE HIGH DOSE QUADRIVALENT) Radha High RD [facility] Work Phone: 11-26-2020 COVID-19 vaccine, fu ll dose (MODERNA) Radha High RD [facility] 10-29-2020 COVID-19 vaccine, fu ll dose (MODERNA) Radha High RD [facility] 09-18-2020 zoster vaccine recombinant Marco Hernandez MD Work Phone: [facility] Work Phone: 06-02-2020 Influenza, injectabl e, Madin [place] Canine Kidney, preservative free, quadrivalent Radha High RD [facility] Work Phone: 06-02-2020 zoster vaccine recombinant Radha High RD [facility] Work Phone: 06-08-2019 pneumococcal conjuga te vaccine, [address] [facility] Work Phone: 06-05-2019 influenza, high dose seasonal, preservative-free Radha High RD [facility] Work Phone: 06-08-2011 tetanus toxoid, reduced diphtheria toxoid, and acellular pertussis vaccine, adsorbed Radha High RD [facility] Work Phone: 09-01-2010 tetanus and diphther ia toxoids, adsorbed, preservative free, for adult use (2 Lf of tetanus toxoid and 2 Lf of diphtheria toxoid) Radha High RD [facility] Work Phone: Payers Date Payer Category Payer Medicare (Managed Care) [facility] PPO [id number] 2025 Medicare [id number] 2024 Self-pay [id number] 2016 Blue [employer] Blue Shield [id number] 2016 Unknown [employer]M BLUE CARD TRADITIONAL OOS [id number] 2016-Present [phone] [address] [place] [address] Indemnity [id number] 2016 Unknown ANTHEM BLUE CARD TRADITIONAL OOS [id number] 2016-Present [phone] [address] [place] [address] Indemnity [id number] 2016 Unknown [id number] 2010 Medicare MEDICARE MEDICAR E A AND B [id number] 2010-Present [phone] [place] [address] Medicare [id number] 2010 Medicare [id number] 2010 Medicare [id number] 1945 Unknown [id number] Medicare ANTHEM MEDICARE PPO [id number] 1 [id number] Unknown [id number] Unknown [id number] Unknown [id number] Social History Date Type Detail Facility Start: 03-02-2021 End: 10-06-2023 Tobacco smoking status NHIS Unknown if ever smoked [facility] Start: 1945 Sex Assigned At Not on file [facility] Work Phone: Start: 02-07-2019 End: 03-27-2023 Tobacco smoking status NHIS Never smoked tobacco [facility] Start: 02-07-2019 End: 03-27-2023 Tobacco use and exposure Smokeless tobacco non-user [facility] Start: 09-03-2021 End: 04-23-2025 Alcohol intake Current drinker of alcohol (finding) [facility] Start: 09-03-2021 End: 08-27-2022 Alcohol intake [facility] Start: 11-01-2021 End: 11-12-2022 History SDOH Alcohol Frequency 2 [facility] Start: 11-01-2021 End: 11-12-2022 History SDOH Alcohol Std Drinks 1 [facility] Start: 05-31-2021 History SDOH Alcohol Comment 3-4 glasses of wine per year [facility] Start: 11-01-2021 History SDOH Social Connections Phone [phone] [facility] Start: 11-01-2021 End: 11-12-2022 History SDOH Social Connections Living 5 [facility] Start: 04-28-2020 History SDOH Physica l Activity DPW 0 [facility] Start: 09-10-2019 Education 18 [facility] Start: 10-17-2019 End: 04-22-2022 Tobacco Comment Second hand smoke (mother) [facility] Start: 06-22-2020 End: 05-19-2022 Exposure to SARS-CoV-2 (event) Not sure [facility] Start: 02-26-2022 End: 04-11-2022 Exposure to SARS-CoV-2 (event) Unable to assess [facility] Start: 1945 Sex Assigned At Female W [facility] Start: 11-12-2022 History SDOH Social Connections Sabianism 3 [facility] Start: 11-12-2022 History SDOH Physica l Activity DPW 4 [facility] Start: 08-27-2022 End: 11-12-2022 Social connection and isolation panel [facility] Do you belong to any clubs or organizations such as religion groups, unions, fraternal or athletic groups, or school groups? Yes [facility] Are you now , , , , never or living with a partner? [facility] How often to you hav e a drink containing alcohol? Monthly or less [facility] How many standard dr inks containing alcohol do you have on a typical day? 1 or 2 [facility] How often do you hav e 6 or more drinks on 1 occasion? Never [facility] Start: 11-01-2018 How hard is it for y ou to pay for the very basics like food, housing, medical care, and heating Not hard at all [facility] Do you feel stress - tense, restless, nervous, or anxious, or unable to sleep at night because your mind is troubled all the time - these days [OSQ] Only a little [facility] (I/We) worried wheth er (my/our) food would run out before (I/we) got money to buy more. Never true [facility] In the past 12 month s, was there a time when you were not able to pay the mortgage or rent on time? No [facility] History of tobacco use Passive smoker [facility] Start: 02-07-2019 Alcohol Comment socially [facility] Medical Equipment Procedure Code Equipment Code Equipment Origin al Text Equipment Identifier Dates Cornea Tissue Pr e-Cut Dmek - [id number] Start: 03-18-2019 Cornea Tissue Pr e-Cut Dmek - [id number] Start: 04-16-2019 Cornea Tissue Pre-Loaded Dmek - [id number] Start: 09-30-2019 Gas Ispan [employer]ellation Intraocular Vision System Sf6 125 - [id number] Start: 03-18-2019 Gas [employer] Intraocular Vision System Sf6 125 - [id number] Start: 04-16-2019 Gas [employer]span [employer] Intraocular Vision System Sf6 125 - [id number] Start: 09-30-2019 [id number] Start: 03-22-2021 End: 06-21-2024 Comment on above: Test blood sugar onc e a day DX: E11.9 Test blood sugar(s) 2 times daily. Dx: Type 2 DM - Controlled E11.9 Insulin: No Glucose Meter (cirilo nt has Countour next test strips): Test blood sugar(s) 1 times daily. Dx: Type 2 DM - Controlled E11.9 Insulin: No Test blood sugar(s) 1 times daily. Dx: Type 2 DM - Controlled E11.9 Insulin: No Cement Simplex P Bone Radiopaque Full Dose Sterile - [id number] Start: 03-15-2023 Small Cement Restrictor [id number] Start: 08-02-2023 Head V40 36mm +2 .5mm Offset Taper Biolox Delta Femoral Hip - [id number] Start: 03-15-2023 Shell Trident Ii 50mm D Tritanium Acetabular 3 Screw Hole Cluster Sterile - [id number] Start: 03-15-2023 Screw Trident Ii 6.5mm 25mm Bone Low Profile Hexagonal Sterile - [id number] Start: 03-15-2023 Spacer Accolade C 12mm Medium Femoral Ring Style Cemented 4 5 Stem Hip - [id number] Start: 03-15-2023 Cement Simplex P Bone Radiopaque Full Dose Sterile - [id number] Start: 03-15-2023 Stem Accolade 12 7d 4 46mm Offset 137mm 35mm Femoral Cemented Hip - [id number] Start: 03-15-2023 Insert Acetabula r 36mm 0d D Hip X3 Trident Sterile Latex Free - [id number] Start: 03-15-2023 Goals Date Patient Goal Desired Activity /State Personal health goal Comment on above: Formatting of this n ote might be different from the original. Improved Health Personal health goal Personal health goal Comment on above: Formatting of this n ote might be different from the original. Patient has the following Chronic Kidney Disease goals: Two PCP visits annually Education provided and reviewed with patient - sent on 04/07/23 CKD MICKY Education - CKD (ALL) Patient will meet these goals by: 04/07/23 (describe interventions done by PCC) Comment on above: Formatting of this n ote might be different from the original. Improved Health Functional Status Date Assessment Result Facility 03-16-2023 Are you deaf, or do you have serious difficulty hearing No 03/16/2023 12:08 PM Nathan Soni RN No [facility] 03-16-2023 Are you blind, or do you have serious difficulty seeing, even when wearing glasses No 03/16/2023 12:08 PM Nathan Soni, PETR No [facility] 03-16-2023 Do you have serious difficulty walking or climbing stairs Yes 03/16/2023 12:08 PM Nathan Soni, PETR Yes [facility] 03-16-2023 Do you have difficul ty dressing or bathing No 03/16/2023 12:08 PM EDT Nathan Alejo RN No [facility] 03-16-2023 Because of a physica l, mental, or emotional condition, do you have difficulty doing errands alone such as visiting a physician's office or shopping No 03/16/2023 12:08 PM EDT Nathan Alejo RN No [facility] Mental Status Date Assessment Result Facility 03-16-2023 Because of a physica l, mental, or emotional condition, do you have serious difficulty concentrating, remembering, or making decisions No 03/16/2023 12:08 PM EDT Nathan Alejo RN No [facility] Clinical Notes 07-22-2020 to 06-02-2025 Telephone Encounter - Carol Gregory LPN - 04/24/2025 2:35 PM EDTTelephone Encounter - Carol Gregory LPN - 04/24/2025 2:35 PM Altagracia Jacobsen APRN.MICROGRINDER OPERATOR - 04/23/2025 10:00 AM EDT Note Date & Type Note Facility 06-02-2025 Note HNO ID: [id number] Author: ALEXANDRIA PATTON APRN.BILL Service: ? Author Type: Nurse Practitioner Type: Progress Notes Filed: 06/02/2025 12:17 Note Text: URGENT CARE LELO Cantu is a 79 year old female. Patient presents with: Ear Pain: right, headache x 1 week, dizziness x last night Ear Pain The patient is a 79-year-old female with a history of allergies, presenting with a headache, earache, and dizziness. Headache and Earache: - Headache and mild earache x1 week. - Denies facial pressure. - History of sinus infections. - Taking Zyrtec and Singulair for allergies. Dizziness: - Acute onset dizziness last night after waking from a nap. - Persistent dizziness when lying in bed and upon waking to urinate during the night. - Difficulty concentrating on reading this morning. - Denies vision changes or dyspnea. - Reports similar episodes 3-4 times in the past, usually resolving with penicillin. Review of Systems Head: (+) headache Eyes: (-) vision changes Ears/Nose/Mouth/Throat: (+) ear pain, (+) nasal congestion Respiratory: (-) shortness of breath Neurological: (+) dizziness, (+) balance difficulty Objective BP 152/80 Pulse 70 Temp 36.2 ?C (97.2 ?F) Resp 16 Wt 126.5 kg (278 lb 14.1 oz) SpO2 94% BMI 43.68 kg/m? Physical Exam Constitutional: Appearance: Normal appearance. Pulmonary: Effort: Pulmonary effort is normal. Neurological: Mental Status: She is alert. General: No acute distress. HEENT: Left ear normal, right ear with cerumen impaction, oropharynx without significant erythema or swelling. CV: Heart sounds normal, no abnormalities auscultated. Resp: Lungs clear to auscultation. { 1. Rhinosinusitis (J32.9) 2. Impacted cerumen, right ear (H61.21) - Acute rhinosinusitis with associated vertigo and mild right ear pain; right ear exam limited by cerumen impaction. - Start cefdinir (Omnicef) BID for 7 days. - Discussed alternative antibiotic options; patient declined Augmentin due to prior intolerance. - Advised to continue current allergy medications (Zyrtec and Singulair). - Advised to defer ear irrigation until infection resolves to avoid pain. and Recording using [employer] software for draft documentation of the visit was discussed with the patient/authorized accounts payable representative; all questions welcomed and answered. Patient/authorized accounts payable representative agreed to proceed History and Record Review External record(s) reviewed: no prior records. Disposition The patient was discharged. Procedures [facility] 06-02-2025 Note Education (ALEX) KEMAL CANTU ([id number]) 1945 F Date Time Provider Department 06/02/25 11:00 AM RADHA HIGH Reason for Visit: Reassessment [674] Patient Education [91] Primary Visit Diagnosis:Class 3 severe obesity without serious comorbidity with body mass index (BMI) of 45.0 to 49.9 in adult, unspecified obesity type (HCC) [E66.813, Z68.42] Other Visit Diagnoses:Gastroesophageal reflux disease with esophagitis, unspecified whether hemorrhage [K21.00] Dietary counseling [Z71.3] During your visit today, we recorded the following information about you: Weight Height 126.2 kg 1.702 m Allergies As of Date: 06/02/2025 Noted Allergy Reaction BACITRACIN (BULK) 02/07/2019 4 - Hives CODEINE 02/07/2019 16 - Unknown DUST MITES 01/23/2020 14 - Other: See Comments GENTAMICIN 11/30/2021 7 - Swelling Comments: redness of eye watery and itching MOLD 01/23/2020 16 - Unknown SULFA (SULFONAMIDE ANTIBIOTICS) 02/07/2019 14 - Other: See Comments Comments: redness SULFABENZAMIDE 11/30/2021 4 - Hives TREE POLLEN-RED MAPLE 02/16/2021 12 - Shortness of Breath Date Reviewed: 05/29/2025 Reviewed by: Екатерина Escalante APRN.MICROGRINDER OPERATOR - Fully Assessed Prescriptions as of 06/02/2025 - gabapentin enacarbil (HORIZANT) 300 mg TbER Take 1 tablet TID. - pramipexole (MIRAPEX) 0.125 mg tablet Take 1 tablet at 2 PM, 1 tablet at dinnertime, 2 tablets at 9 pm, and 2 tablets at bedtime - valsartan (DIOVAN) 320 mg tablet Take 1 tablet by mouth once daily. - diclofenac (VOLTAREN) 1 % topical gel Apply 2 g to affected area four times daily. - semaglutide (OZEMPIC) 2 mg/dose (8 mg/3 mL) pen injector Inject 2 mg subcutaneously one time a week. - omeprazole (PRILOSEC) 40 mg capsule Take 1 capsule by mouth two times a day. - atorvastatin (LIPITOR) 10 mg tablet Take 1 tablet by mouth once daily. - buPROPion SR (WELLBUTRIN SR) 150 mg 12 hr tablet Take 1 tablet by mouth once daily. - conjugated estrogens (PREMARIN) vaginal cream Use 0.5 g vaginally two times a week. - levothyroxine (SYNTHROID) 75 mcg tablet take 1 tablet by mouth once daily ON AN EMPTY STOMACH - naproxen (NAPROSYN) 500 mg tablet Take 1 tablet by mouth two times a day as needed. Take with food. - montelukast (SINGULAIR) 10 mg tablet Take 1 tablet by mouth daily at bedtime. - nystatin (MYCOSTATIN) powder Apply 1 application to affected area four times daily. - fluticasone (FLONASE) 50 mcg/actuation nasal spray instill 2 sprays into each nostril once daily - ketoconazole (NIZORAL) 2 % cream Apply to affected area once daily. Used for fungal skin fold rashes - LUMIGAN 0.01 % drop ophthalmic drops instill 1 drop into both eyes at bedtime - fluorometholone (FML LIQUID FILM) 0.1 % ophthalmic suspension instill 1 drop into both eyes twice a day as directed - fluorometholone (FML LIQUID FILM) 0.1 % ophthalmic suspension 1 Drop every 4 hours. - ascorbic acid, vitamin C, (VITAMIN C) 500 mg tablet Take 1 tablet by mouth twice daily with meals for 27 doses. - aspirin, enteric coated (ASPIRIN, ENTERIC COATED) 81 mg EC tablet Take 1 tablet by mouth twice daily for 28 days. - Magnesium Oxide 500 mg tab Take 500 mg by mouth once daily. Taking in gummy form - ubidecarenone (COENZYME Q10) 100 mg tab Take 200 mg by mouth once daily. - simethicone (GAS-X ORAL) Take 125 mg by mouth twice daily. - multivit,thx,calcium,iron,mins (MULTIVITAMIN AND MINERAL ORAL) Take 1 tablet by mouth once daily. - Zinc 50 mg tab Take 50 mg by mouth. - amLODIPine (NORVASC) 2.5 mg tablet Take 2.5 mg by mouth once daily. - metoprolol tartrate, short acting, (LOPRESSOR) 50 mg tablet Take 50 mg by mouth once daily. - Bifidobacterium infantis (ALIGN ORAL) Take 1 tablet by mouth once daily. - amoxicillin (POLYMOX, AMOXIL) 500 mg capsule Take 500 mg by mouth. Take 4 capsules 1 hour before dental procedures. - ferrous sulfate EC 324 mg (65 mg iron) TbEC Take 324 mg by mouth once daily. Twice a day Encounter Status:Closed by RADHA HIGH on 06/02/25 [facility] 06-02-2025 Note HNO ID: [id number] Author: RADHA HIGH RD Service: ? Author Type: Registered Dietitian Type: Progress Notes Filed: 06/02/2025 11:46 Note Text: 10:58 AM Nutritional Therapy Re-Assessment Nutrition Diagnosis: Overweight/obesity, related to, excess energy intake and physical inactivity, as evidenced by BMI above normative standard for age and gender RECOMMENDED MALNUTRITION DIAGNOSIS: NO MALNUTRITION IDENTIFIED NUTRITION CARE PLAN: Nutrition Intervention 06/02/2025: modify type and amount of food or beverae If able no snacking after dinner meal (move Yasso bar to earlier meal Only have one Yasso bar daily. Sit down for all meals and snacks, eat slowly Try a fritatta, cottage cheese and fruit; hummus, vegetables and baked whole grain chips; salad with tuna; Healthy frozen meals/Kashi meals. Work on increasing exercise. Nutrition Monitoring AND Evaluation: weight loss or stable weight Need for Follow up: 4-6 weeks PROGRESS: Interval History: following as relates to class 3 obesity Body mass index is 43.59 kg/m?. DM, GERD. Continues Ozempic, blood sugars controlled well. Intake consists of 4 small meals lately; lately more snacking/grazing and frequent sweets - likely cause of weight gain. Has been depressed, lacking motivation, discussed this at last PCP visit. Weight increased 4 lbs since last visit. Son is coming, feels this will be motivating Has had more treats (grandson works at [employer]) Struggling with motivation/depression Nutrition Intervention 04/21/25 Choose whole grain breads and grains when having Avoid snacking/grazing between meals If early dinner OK for one evening snack; if late dinner no evening snack but include an afternoon snack Try dried edamame for a snack or make own: Put that into the oven on 425F/218C for 20-25 minutes or your air fryer on 375F/190C for around 10-12 minutes Dip ideas for carrots: [place] or plain non fat Czech yogurt with dry ranch dressing mix All meals and snacks at the dinner table; minimize distractions, no TV while eating. Make meals last at least 20 min, chew each bite of food 20 x per bite.Portion out all foods, never eat out of container. Become more mindful of meal: Enjoy flavors, textures etc. Use hunger/fullness scale. Actions to implement interventions: See assessment Diet History: wake 5 a.m. 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 Resting Metabolic Rate: 1775 Malnutrition Screening Significant unintentional weight loss? No Eating less than 75% of usual intake for more than 2 weeks? No Potential Signs of Inflammation: no identifiable sources Nutritional status: Food Insecurity: No Food Insecurity (04/21/2025) Hunger Vital Sign Worried About Running Out of Food in the Last Year: Never true Ran Out of Food in the Last Year: Never true Education Materials Provided: None this visit READINESS TO LEARN Cognitive ability: Alert and oriented Motivation to learn: Interested Family support: Unable to assess - Family not present Instruction provided to: Patient Patient learns best by: Individual Instruction Factors affecting learning: None Physical limitations affecting learning: None Likelihood of Adherence: Moderate Referred/Supervised by: Sammi/Sammi CLEMENTS Billing Type: Re-assess 2 units 11:30 SIGNATURE: Radha High RD PATIENT NAME: Kemal Cantu DATE: June 02, 2025 TIME: 11:04 AM [facility] 05-29-2025 Note HNO ID: [id number] Author: ЕКАТЕРИНА ESCALANTE APRN.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 Author Type: Nurse Practitioner Type: Progress Notes Filed: 05/29/2025 15:21 Note Text: Kemal Cantu is a 79 year old female here for a Medicare wellness visit. 007} Medicare Health Risk Assessment General Health Fair Exercise: Minutes/Day 0 min is doing physical therapy exercises though Exercise: Days/Week 0 days going to start doing PT exercises 7 days a week Alcohol: Daily Use Monthly or less Alcohol: Drinks/Day 1 or 2 Alcohol: 6 or more drinks Never Feel off balance No Concerns: Teeth/Dentures Yes Concerns: Sexual function No Troubled by feelings Anxious; Lonely; Isolated Frequency: Eating healthy diet More than half the days ADLs requiring help Housework (Help with carrying things down the stairs) Safety precautions in home/vehicle Yes Smoke, vape, chews tobacco No Difficulty hearing No Difficulty seeing No Current Providers Specialists: I have reviewed specialist-related care of the patient in the medical record. Orthopedics: Lety Haywood Dermatology: dr. sandoval Sleep Medicine: Altagracia Constantino Podiatry: Dr. Mims Cardiology: Dr. Fitch Optometry: [facility] Neurology: Dr. Blevins Medical/Family history review Reviewed and updated problem list, medical/surgical/family/social history, medications, and allergies. Opioid use review Prescribed: No opioid use on file in the last 90 days Patient-reported: No opioid use on file in the last 90 days Depression screening 1007} PHQ-2 Score: 1 (05/29/2025 11:03 AM) Based on score and interview, patient is already diagnosed with depression. Recommendation: no further intervention at this time Anxiety screening Gad2 is 0 no further intervention at this time. Cognitive screening Mini Cog Score: 5 Cognitive screening reviewed and No further action needed (score 3-5). Functional Observation Was the patient's Timed Up AND Go test unsteady or >= 12 seconds? No Advance Directives Surrogate decision maker and/or advance care plan documented Measurements BP 134/78 Pulse 64 Resp 16 Wt 125.6 kg (277 lb) SpO2 97% BMI 43.38 kg/m? Vision Screening: Follows with optometry/ophthalmology Assessment/Plan Medicare annual wellness visit, subsequent (Z00.00) - Counseled on healthy diet and regular exercise - Fall avoidance information provided - Personalized prevention plan provided - Discussed need for and benefit of weight loss. BMI 43.38 kg/(m2) - Counseled patient on alcohol intake and associated health risks [facility] 05-27-2025 Note HNO ID: [id number] Author: THAI ADAME PT Service: ? Author Type: Physical Therapist Type: Progress Notes Filed: 05/27/2025 12:31 Note Text: Episode Visit Count: 1 Therapist That Will Accept/Oversee The Plan Of Care: Thai Adame Start of Care Date: 05/27/25 Onset Date: 03/27/25 Plan of Care Certification Date: 05/27/25 Next Certification Due Date: 08/27/25 Patient Identified by Name and Date of : Yes [facility]ORTS THERAPY PHYSICAL THERAPY EVALUATION PLAN OF CARE: Assessment: Kemal Cantu presents with chief complaint of LBP and B hip pain that interferes with rising from a chair, standing, walking, bending, heavy exertion, lifting, physical activities, recreational activities, sleeping . The patient presents with impairments in ADL's, overall function, range of motion, strength, and symptom management. PROMIS? (Patient-Reported Outcomes Measurement Information System) scores were reviewed and identified as a rehabilitation concern. Prognosis for therapy is Fair due to: clinical presentation, multiple co- morbidities, advanced age, chronic nature of impairments, limited tolerance to activity . The patient will benefit from skilled therapy services to meet the goals established for this plan of care as noted below. Goals for Episode of Care: established 05/27/25 Independent in home exercises. Patient will decrease pain rating by 2 points to meet minimal clinical important difference for numeric pain rating scale. Stand / Walk as needed for ADLs without pain/symptoms. Sit 2 hours without pain/symptoms to allow for decreased pain and improved sitting ADL tolerance Patient will increase strength of trunk/core and B hips to 4 to 4+/5 to allow for improve ability to complete ADLs and improve ability to negotiate stairs. Time Frame for Goals and Treatment : 07/27/25 Planned Interventions, Frequency, and Duration: Current Frequency: 1x/week Duration: 8 weeks Total Number of Visits Planned: 8 Planned Treatment Interventions: Neuromuscular re-education (54754), Therapeutic exercise (43876), Manual therapy (61828), Therapeutic activities (91876), Self-nursing home management (08594), Gait Training (41201), Patient/Family/Caregiver Education, Body Mechanics Training PLAN FOR NEXT VISIT: Leg strengthening to tolerance, neutral spine core strengthening and flexion bias for lumbar pain Patient demonstrates good understanding of plan of care and treatment. The above goals and plan of care were discussed and agreed upon by patient/family. SUBJECTIVE: R DEYSI 2 years in march. Patient notes that the R hip is both painful and weak. Weak in the marching motion on the right. Admits to a tendon injury to the quad or hip flexor years ago and this got worse after the DEYSI. Patient has fibromyalgia. She hurts worse in the morning or after sitting for prolonged periods. Washing dishes and cooking hurt the most when up- anything involving a subtle lean. Does a seated stepper bike but that is it for exercise. Functional Limitations: rising from a chair, standing, walking, bending, heavy exertion, lifting, physical activities, recreational activities, sleeping Prior Level of Function: Independent without limitations Intake Information: Prescription present Red Flags Vertebral Fracture Red Flags: Female, Age >70 Vertebral Fracture Clinical Reasoning: Proceed with caution due to the above (1-2) risk factors Abdominal Aortic Aneurysm Red Flags: History of PVD, CAD, Age >60 Abdominal Aortic Aneurysm Clinical Reasoning: Proceed with caution Cancer Red Flags: Age >50 or <20 Cancer Clinical Reasoning: No identified risk factors. Infection Clinical Reasoning: No identified risk factors. Cauda Equina Syndrome Clinical Reasoning: No identified risk factors. Red Flags - Cervical Cancer Red Flags: Age >50 or <20 Cancer Clinical Reasoning: No identified risk factors. Infection Clinical Reasoning: No identified risk factors. Pain: Pain Pain Level: 3 (9/10 at worst) Pain Location: Hip - Left, Hip - Right, Low Back/Lumbar Spine- Midline Description: Tightness, Sharp Frequency: Continuous OBJECTIVE MEASURES WITH LEVEL OF FUNCTION: Lumbar Spine AROM Lumbar Flexion: Minimal limitation Lumbar Extension: Moderate limitation Lumbar R Side-Bend: Minimal limitation Lumbar L Side-Bend: Minimal limitation Lumbar R Rotation: Minimal limitation Lumbar L Rotation: Minimal limitation LE AROM R LE AROM: Moderate limitation in hip flexion and R piriformis in 90 degrees hip flexion L LE AROM: WNL LE Strength Trunk Strength: 3+/5 R LE Strength: 3+ to 4-/5 grossly Education: TREATMENT: PT Treatment Interventions: Therapeutic Exercise, Self-[facility] Management Evaluation Therapeutic Exercise: 1: *Fig 4 piriformis stretch 3x30 sec 2: *SLR 3x4 3: *SKC 3x30 sec 4: *DKC 3x30 sec 5: *PPT 3x10 1-2 sec holds Skilled Intervention: Patient was educated i (more content not included)... [facility] 05-12-2025 Note HNO ID: [id number] Author: LETY HAYWOOD PA-C Service: ? Author Type: Physician Manager [employer] Type: Progress Notes Filed: 05/15/2025 12:21 Note Text: Lety Haywood PA-C Department of Orthopaedics Orthopaedics [address] [facility] [address] Dept: [phone] Dept May 12, 2025 CHIEF COMPLAINT: Follow Up of the Right Hip Right Hip Pain and Weakness: - Right hip replacement 2 years ago. - Reports weakness in the right leg since a tendon injury in the . - Difficulty ascending stairs and rising from a chair without assistance. - Concerns about potential weakness if left hip replacement is needed. - Experiences pain in the right hip after prolonged sitting. - Reports four episodes of excruciating pain in the right hip, described as a pull sensation, with two episodes occurring shortly after surgery and two more recently. - Pain localized to the anterior thigh tendon area, site of previous injury. - Denies groin or buttock pain. Left Hip Pain: - Reports increasing pain in the left hip. - Has known arthritis in the left hip. Spinal Stenosis: - Diagnosed with spinal stenosis; believes it may be contributing to hip pain. - No current management for spinal stenosis. - Previously attended physical therapy for back pain. Fibromyalgia: - Reports chronic tendon tightness and pain in various areas, including knees and hands. - Believes fibromyalgia contributes to hip pain. Hand Arthritis: - Reports pain in the hands, particularly at the left thumb. - Uses Voltaren gel for pain relief. 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 Degeneration of intervertebral disc of lumbar region with lower extremity pain (M51.361) - Chronic low back pain with known spinal stenosis; last lumbar X-rays from 2021. - Ordered new lumbar spine X-rays to assess for interval changes. - Discussed that spinal pathology may be contributing to lower extremity weakness. - Refer to physical therapy for lumbar stabilization and lower extremity strengthening. 2. Status post hip replacement, right (Z96.641) - Right hip replacement with chronic anterior thigh weakness and pain, likely due to old tendon injury from the and possible contribution from spinal stenosis. - X-rays from today and May 2023 reviewed; right hip prosthesis appears intact with no significant changes. - Refer to physical therapy to address anterior thigh weakness and improve function. 3. Pain of left thumb (M79.645) - Chronic pain likely due to arthritis. Xrays ordered. - Discussed conservative management options including Voltaren gel, heat therapy (paraffin bath or warm water soaks), and bracing. - Patient to trial thumb brace; did not care for in office options. May explore additional options online. Will continue to monitor patient for Degeneration of intervertebral disc of lumbar region with lower extremity pain (primary encounter diagnosis) Status post hip replacement, right Pain of left thumb Fibromyalgia, patient to schedule visit as per follow up discussed. Ms. Kemal Cantu was advised as to contrast therapies and/or to take analgesics/anti-inflammatories as needed and all contraindications were reviewed. OBJECTIVE: Ms. Kemal Cantu is a pleasant 79 year old in no apparent distress. Gen:There were no vitals taken for this visit. nl development, obese, no deformities ENT: Normocephalic, normal hearing, moist mucosa CV: Pulses:DP/PT= 2+ and symmetric, capillary refill < 2 secs, no peripheral edema/varicosities Skin: no rash, bruising or lesions. Good turgor. Psych: cooperative and appropriate, alert and oriented x 3, good mood and affect. Musculoskeletal: Right hip with passive painless range of motion. Patient does have weakness with resisted hip flexion when compared to the contralateral side. Pain on palpation over the right hip flexor. Left hand with diffuse degenerative changes, most notably at the base of the left thumb, tenderness over the basal joint and left thumb MCP joint. Nonpainful grind testing. Imaging: IMPRESSION: Degenerative changes as discussed [place]: CHAR Transcribe Date/Time: May 14 2025 3:10P Dictated by : DEWAYNE HADDAD DO This examination was interpreted and the report reviewed and electronically signed by: DEWAYNE HADDAD DO on May 14 2025 3:10PM EST Results-Findings * * *Final Report* * * DATE OF EXAM: May 12 2025 10:41AM WRX [id number] - XR LUMBAR 3V AP/LAT/L5-S1 / PROCEDURE REASON: Degeneration of intervertebral disc of lumbar region with lower extremity pain * * * * Physician Interpretation * * * * LUMBAR SPINE: EXAM DATE/TIME: 05/12/2025 10:41 AM HISTORY: 79 years ol (more content not included)... [facility] 05-12-2025 Note HNO ID: [id number] Author: SRIDHAR KELLY RT(R) Service: ? Author Type: Technologist Type: Progress Notes Filed: 05/12/2025 11:51 Note Text: Radiology Service Progress Note PATIENT NAME: Kemal Cantu DATE OF SERVICE: May 12, 2025 TIME: 11:51 AM PATIENT IDENTITY VERIFICATION COMPLETED USING TWO (2) IDENTIFIERS: Name and Date of confirmed by patient verbally. FALL SCREENING: Has the patient had 2 falls in the last year or 1 fall with injury or currently using an Ambulatory Assistive Device (Walker, Cane, Wheelchair, Crutches, etc.)? No PATIENT GENDER DATA: Assigned female at . status: : No status: N/A PATIENT RELEVANT IMPLANT DATA REVIEWED: Not Applicable PATIENT PRESENTS WITH AN IMPLANTABLE OR ATTACHED FRAME STRIPPER: No RADIOLOGY DEPARTMENT: General X-ray: Exam(s) Completed: Spine X-Ray(s): Lumbar AP / LAT / L5-S1 Pelvis X-Ray: Pelvis with Hip Right PERIPHERAL IV DATA: Not applicable SIGNED BY: RT Sarai(R) May 12, 2025 11:51 AM [facility] 05-12-2025 Note HNO ID: [id number] Author: KEMI VALENCIA MA Service: ? Author Type: Color Corrector Type: Progress Notes Filed: 05/15/2025 12:21 Note Text: AMB ROOMING INTAKE FLOWSHEET DATA Pain Pain Level: 5 Pain Location: Hip-Right Description: Stiffness, Dull Duration Amount of Time: (ongoing) Frequency: Intermittent Intervention/Comfort measure: Reposition Patient here today 2 years post op right DEYSI. She is concerned that she feels like she has almost dislocated her hip a couple of times just turning in bed. She finds it difficult to lift the right leg, making stairs difficulty. She does have multiple sets of stairs in her home and this concerns her. New x-ray today. [facility] 04-24-2025 Telephone encounter Note Answered questions in Epic for Pt PA. Carol Gregory LPN [facility] 04-24-2025 Miscellaneous Notes Answered questions in Epic for Pt PA. Carol Gregory LPN Started PA on Cover My Meds. For Horizant 300 mg ER Tabs. Carol Gregory LPN documented in this encounter [facility] 04-23-2025 Telephone encounter Note Started PA on Cover My Meds. For Horizant 300 mg ER Tabs. Carol Gregory LPN [facility] 04-23-2025 History of Presen t illness Narrative Images from the original note were not included. [facility] Follow up/ Established patient visit Recording using [employer] software for draft documentation of the visit was discussed with the patient/authorized accounts payable representative; all questions welcomed and answered. Patient/authorized accounts payable representative agreed to proceed Assessment/Plan from last visit: Date of last visit : 01/20/2025 ASSESSMENT/PLAN: 1. RLS (restless legs syndrome) - ICD9: 333.94, ICD10: G25.81 Patient with long standing history of RLS. Well controlled despite need for both Horizant and Mirapex -- on Horizant for years. Now, insurance no longer covering Horizant resulting in change to Gabapentin ER - not controlling RLS and side effects as above. Note treating known Fe deficiency with supplement. When patient changed back to Horizant this weekend (had few tabs left), RLS improved and side effects began to resolve. Will gain request that insurance provide coverage for Horizant given side effects on previously tried meds and inability to control RLS. Prior auth will be completed. Await insurance response. Will continue Mirapex as above with Horizant restated at 300mg TID. Pt will contact us if she hears from pharmacy/insurance before we do. 2. Iron deficiency anemia, unspecified iron deficiency anemia type - ICD9: 280.9, ICD10: D50.9 As above. 3. MAURICE (obstructive sleep apnea) - ICD9: 327.23, ICD10: G47.33 4. Class 3 severe obesity with body mass index (BMI) of 40.0 to 44.9 in adult, unspecified obesity type, unspecified whether serious comorbidity present (HCC) - ICD9: 278.01, V85.41, ICD10: E66.813, Z68.41 Known history of MAURICE, but pt declining any form of therapy. Encouraged weight loss. Encouraged patient to sleep on side. No s/s of tiredness/sleepiness during the day when RLS controlled. D/w pt repeat PSG, but declines at this time. Pt feels sleep is good and restorative so long as RLS controlled. Hollie Blevins MD CURRENT VISIT: 04/23/2025 The patient is a 79-year-old female with a history of restless leg syndrome (RLS), presenting for a medication refill. The patient reports that her current medication regimen, which includes pramipexole and Horizant, effectively controls her RLS symptoms. She takes pramipexole 0.125 mg according to the following schedule: one tablet at 1400, one tablet at dinner time, two tablets at 2100, and two tablets at bedtime. She also takes Horizant 300 mg TID as prescribed. She notes that if she delays taking her medication, she experiences mild RLS symptoms, but these are alleviated once she takes her medication. She emphasizes that her quality of life significantly deteriorates without these medications, describing the experience as horrendous. The patient has previously attempted to reduce her pramipexole dosage from six tablets to four tablets approximately two years ago, but found this dosage insufficient. She has been on her current dosage of six tablets for an extended period and has not experienced augmentation. She also tried gabapentin ER in the past when insurance denied Horizont, but discontinued it due to multiple side effects, including exhaustion, brain fog, feeling loopy, nausea, diarrhea, and weight gain. She reports that these side effects were severe enough to impair her ability to drive. Has previously tried gabapentin w/o relief. In addition to her RLS medications, the patient takes magnesium and vitamin D supplements in gummy form. She also takes an iron supplement, initially twice daily but currently once daily. Labs done in 08/2024 showed stable iron stores. The patient has recently changed her insurance provider and is uncertain whether her new insurance will cover her current medications. She has not yet refilled her prescriptions under the new insurance. Horizant ER 300 mg #270 last filled 01/27/25 SLEEP APNEA MAURICE, sleeps inclined, no PAP hx Latest Reference Range & Units 08/20/24 08:40 eGFR >=60 mL/min/1.73m 66 Ferritin 14.7 - 205.1 ng/mL 51.2 Iron 41 - 186 ug/dL 70 TIBC 232 - 386 ug/dL 346 Transferrin Saturation 15.0 - 57.0 % 20.2 Latest Reference Range & Units 08/20/24 08:40 WBC 3.70 - 11.00 k/uL 3.72 RBC 3.90 - 5.20 m/uL 4.72 Hemoglobin 11.5 - 15.5 g/dL 14.0 Hematocrit 36.0 - 46.0 % 43.3 Platelet Count 150 - 400 k/uL 215 MCV 80.0 - 100.0 fL 91.7 MCH 26.0 - 34.0 pg 29.7 MCHC 30.5 - 36.0 g/dL 32.3 MPV 9.0 - 12.7 fL 9.6 RDW-CV 11.5 - 15.0 % 13.5 Latest Reference Range & Units 08/20/24 08:40 Hemoglobin A1C 4.3 - 5.6 % 5.2 Estimated Average Glucose mg/dL 103 TSH 0.270 - 4.200 mIU/L 3.510 Vitamin D 25 Hydroxy 31.0 - 80.0 ng/mL 53.2 PATIENT-ENTERED QUESTIONNAIRE SLEEP SCORES: 05/20/2021 PHQ-9 Score 0 Data saved with a previous flowsheet row definition 04/28/2020 04/15/2022 09/21/2022 PROMIS Global Health - (T-Scores - the mean of general population = 50. Five points is a clinically meaningful difference.) Physical T-Score 37.4 39.8 37.4 Mental T-Score 43.5 45.8 45.8 05/20/2021 PHQ-9 Score 0 Data saved with a previous flowsheet row definition 04/28/2020 04/15/2022 09/21/2022 PROMIS Global Health - (T-Scores - the mean of general population = 50. Five points is a clinically meaningful difference.) Physical T-Score 37.4 39.8 37.4 Mental T-Score 43.5 45.8 45.8 ALLERGIES Allergen Reactions Bacitracin (Bulk) Hives Codeine Unknown Dust Mites Other: See Comments Gentamicin Swelling redness of eye watery and itching Mold Unknown Sulfa (Sulfonamide * Other: See Comments redness Sulfabenzamide Hives Tree Pollen-Red Map* Shortness of Breath CURRENT MEDICATIONS: valsartan (DIOVAN) 320 mg tablet Take 1 tablet by mouth once daily. diclofenac (VOLTAREN) 1 % topical gel Apply 2 g to affected area four times daily. semaglutide (OZEMPIC) 2 mg/dose (8 mg/3 mL) pen injector Inject 2 mg subcutaneously one time a week. omeprazole (PRILOSEC) 40 mg capsule Take 1 capsule by mouth two times a day. atorvastatin (LIPITOR) 10 mg tablet Take 1 tablet by mouth once daily. buPROPion SR (WELLBUTRIN SR) 150 mg 12 hr tablet Take 1 tablet by mouth once daily. conjugated estrogens (PREMARIN) vaginal cream Use 0.5 g vaginally two times a week. levothyroxine (SYNTHROID) 75 mcg tablet take 1 tablet by mouth once daily ON AN EMPTY STOMACH naproxen (NAPROSYN) 500 mg tablet Take 1 tablet by mouth two times a day as needed. Take with food. montelukast (SINGULAIR) 10 mg tablet Take 1 tablet by mouth daily at bedtime. nystatin (MYCOSTATIN) powder Apply 1 application to affected area four times daily. fluticasone (FLONASE) 50 mcg/actuation nasal spray instill 2 sprays into each nostril once daily ketoconazole (NIZORAL) 2 % cream Apply to affected area once daily. Used for fungal skin fold rashes LUMIGAN 0.01 % drop ophthalmic drops instill 1 drop into both eyes at bedtime fluorometholone (FML LIQUID FILM) 0.1 % ophthalmic suspension instill 1 drop into both eyes twice a day as directed fluorometholone (FML LIQUID FILM) 0.1 % ophthalmic suspension 1 Drop every 4 hours. ascorbic acid, vitamin C, (VITAMIN C) 500 mg tablet Take 1 tablet by mouth twice daily with meals for 27 doses. aspirin, enteric coated (ASPIRIN, ENTERIC COATED) 81 mg EC tablet Take 1 tablet by mouth twice daily for 28 days. Magnesium Oxide 500 mg tab Take 500 mg by mouth once daily. Taking in gummy form ubidecarenone (COENZYME Q10) 100 mg tab Take 200 mg by mouth once daily. simethicone (GAS-X ORAL) Take 125 mg by mouth twice daily. multivit,thx,calcium,iron,mins (MULTIVITAMIN AND MINERAL ORAL) Take 1 tablet by mouth once daily. vitamin K2 100 mcg cap Take 100 mcg by mouth. Zinc 50 mg tab Take 50 mg by mouth. amLODIPine (NORVASC) 2.5 mg tablet Take 2.5 mg by mouth once daily. metoprolol tartrate, short acting, (LOPRESSOR) 50 mg tablet Take 50 mg by mouth once daily. Bifidobacterium infantis (ALIGN ORAL) Take 1 tablet by mouth once daily. amoxicillin (POLYMOX, AMOXIL) 500 mg capsule Take 500 mg by mouth. Take 4 capsules 1 hour before dental procedures. ferrous sulfate EC 324 mg (65 mg iron) TbEC Take 324 mg by mouth once daily. Twice a day gabapentin enacarbil (HORIZANT) 300 mg TbER Take 1 tablet TID. pramipexole (MIRAPEX) 0.125 mg tablet Take 1 tablet at 2 PM, 1 tablet at dinnertime, 2 tablets at 9 pm, and 2 tablets at bedtime PHYSICAL EXAMINATION: Vital Signs: BP 156/68 Pulse 63 Resp 16 Wt 124.7 kg (275 lb) SpO2 98% BMI 43.07 kg/m PHYSICAL EXAM: General appearance: pleasant, NAD Mental status: alert and oriented, able to provide own history Constitutional: obese Skin: No visible rashes on exposed skin Neuro: No focal deficits observed, no tremors Assessment /Plan Rls (restless legs syndrome) (primary encounter diagnosis) Iron deficiency anemia, unspecified iron deficiency anemia type Kemal Cantu is a 79 year old female with: 1. RLS (restless legs syndrome) (G25.81) Symptoms are well controlled with current regimen of pramipexole and Horizant; prior attempt to reduce pramipexole from 6 to 4 tablets was unsuccessful. Previous trial of gabapentin ER resulted in significant side effects, including exhaustion, brain fog, nausea, diarrhea, and weight gain. - Continue pramipexole 0.125 m tablet at 2 PM, 1 at dinner, 2 at 9 PM, and 2 at bedtime. - Refill Horizant 300 mg TID - Follow-up with Dr. Blevins in 6 months. 2. Iron deficiency anemia, unspecified iron deficiency anemia type (D50.9) Iron stores have been stable; patient is taking iron supplementation once daily. - Order labs to update iron stores; patient may complete labs now or wait until Medicare checkup next month. PDMP website checked and validated. All prescriptions have been APPROPRIATELY filled. No suspicious activity was identified. 04/23/2025 by DREA To APRN.BILL documented in this encounter [facility] 04-23-2025 Note HNO ID: [id number] Author: ALTAGRACIA CONSTANTINO APRN.CNP Service: ? Author Type: Nurse Practitioner Type: Progress Notes Filed: 04/23/2025 10:28 Note Text: [facility] Follow up/ Established patient visit Recording using [employer] software for draft documentation of the visit was discussed with the patient/authorized accounts payable representative; all questions welcomed and answered. Patient/authorized accounts payable representative agreed to proceed Assessment/Plan from last visit: Date of last visit : 01/20/2025 ASSESSMENT/PLAN: 1. RLS (restless legs syndrome) - ICD9: 333.94, ICD10: G25.81 Patient with long standing history of RLS. Well controlled despite need for both Horizant and Mirapex -- on Horizant for years. Now, insurance no longer covering Horizant resulting in change to Gabapentin ER - not controlling RLS and side effects as above. Note treating known Fe deficiency with supplement. When patient changed back to Horizant this weekend (had few tabs left), RLS improved and side effects began to resolve. Will gain request that insurance provide coverage for Horizant given side effects on previously tried meds and inability to control RLS. Prior auth will be completed. Await insurance response. Will continue Mirapex as above with Horizant restated at 300mg TID. Pt will contact us if she hears from pharmacy/insurance before we do. 2. Iron deficiency anemia, unspecified iron deficiency anemia type - ICD9: 280.9, ICD10: D50.9 As above. 3. MAURICE (obstructive sleep apnea) - ICD9: 327.23, ICD10: G47.33 4. Class 3 severe obesity with body mass index (BMI) of 40.0 to 44.9 in adult, unspecified obesity type, unspecified whether serious comorbidity present (HCC) - ICD9: 278.01, V85.41, ICD10: E66.813, Z68.41 Known history of MAURICE, but pt declining any form of therapy. Encouraged weight loss. Encouraged patient to sleep on side. No s/s of tiredness/sleepiness during the day when RLS controlled. D/w pt repeat PSG, but declines at this time. Pt feels sleep is good and restorative so long as RLS controlled. Hollie Blevins MD CURRENT VISIT: 04/23/2025 The patient is a 79-year-old female with a history of restless leg syndrome (RLS), presenting for a medication refill. The patient reports that her current medication regimen, which includes pramipexole and Horizant, effectively controls her RLS symptoms. She takes pramipexole 0.125 mg according to the following schedule: one tablet at 1400, one tablet at dinner time, two tablets at 2100, and two tablets at bedtime. She also takes Horizant 300 mg TID as prescribed. She notes that if she delays taking her medication, she experiences mild RLS symptoms, but these are alleviated once she takes her medication. She emphasizes that her quality of life significantly deteriorates without these medications, describing the experience as horrendous. The patient has previously attempted to reduce her pramipexole dosage from six tablets to four tablets approximately two years ago, but found this dosage insufficient. She has been on her current dosage of six tablets for an extended period and has not experienced augmentation. She also tried gabapentin ER in the past when insurance denied Horizont, but discontinued it due to multiple side effects, including exhaustion, brain fog, feeling loopy, nausea, diarrhea, and weight gain. She reports that these side effects were severe enough to impair her ability to drive. Has previously tried gabapentin w/o relief. In addition to her RLS medications, the patient takes magnesium and vitamin D supplements in gummy form. She also takes an iron supplement, initially twice daily but currently once daily. Labs done in 08/2024 showed stable iron stores. The patient has recently changed her insurance provider and is uncertain whether her new insurance will cover her current medications. She has not yet refilled her prescriptions under the new insurance. Horizant ER 300 mg #270 last filled 01/27/25 SLEEP APNEA MAURICE, sleeps inclined, no PAP hx Latest Reference Range AND Units 08/20/24 08:40 eGFR >=60 mL/min/1.73m? 66 Ferritin 14.7 - 205.1 ng/mL 51.2 Iron 41 - 186 ug/dL 70 TIBC 232 - 386 ug/dL 346 Transferrin Saturation 15.0 - 57.0 % 20.2 Latest Reference Range AND Units 08/20/24 08:40 WBC 3.70 - 11.00 k/uL 3.72 RBC 3.90 - 5.20 m/uL 4.72 Hemoglobin 11.5 - 15.5 g/dL 14.0 Hematocrit 36.0 - 46.0 % 43.3 Platelet Count 150 - 400 k/uL 215 MCV 80.0 - 100.0 fL 91.7 MCH 26.0 - 34.0 pg 29.7 MCHC 30.5 - 36.0 g/dL 32.3 MPV 9.0 - 12.7 fL 9.6 RDW-CV 11.5 - 15.0 % 13.5 Latest Reference Range AND Units 08/20/24 08:40 Hemoglobin A1C 4.3 - 5.6 % 5.2 Estimated Average Glucose mg/dL 103 TSH 0.270 - 4.200 mIU/L 3.510 Vitamin D 25 Hydroxy 31.0 - 80.0 ng/mL 53.2 PATIENT-ENTERED QUESTIONNAIRE SLEEP SCORES: 05/20/2021 PHQ-9 Score 0 Data saved with a previous flowsheet row definition 04/28/2020 04/15/20 (more content not included)... [facility] 04-21-[address] - 04/21/2025 11:38 AM EDT Choose whole grain breads and grains when having Avoid snacking/grazing between meals If early dinner OK for one evening snack; if late dinner no evening snack but include an afternoon snack Try dried edamame for a snack or make own: Put that into the oven on 425F/218C for 20-25 minutes or your air fryer on 375F/190C for around 10-12 minutes Dip ideas for carrots: [place] or plain non fat Czech yogurt with dry ranch dressing mix All meals and snacks at the dinner table; minimize distractions, no TV while eating. Make meals last at least 20 min, chew each bite of food 20 x per bite.Portion out all foods, never eat out of container. Become more mindful of meal: Enjoy flavors, textures etc. Use hunger/fullness scale. documented in this encounter [facility] 04-21-2025 Note Education (NUTRSHAHAB) KEMAL CANTU ([id number]) 1945 F Date Time Provider Department 04/21/25 11:00 AM [facility] Reason for Visit: Reassessment [674] Patient Education [91] Primary Visit Diagnosis:Class 3 severe obesity without serious comorbidity with body mass index (BMI) of 45.0 to 49.9 in adult, unspecified obesity type (HCC) [E66.813, Z68.42] Other Visit Diagnoses:Gastroesophageal reflux disease with esophagitis, unspecified whether hemorrhage [K21.00] Dietary counseling [Z71.3] Controlled type 2 diabetes mellitus without complication, without long-term current use of insulin (HCC) [E11.9] During your visit today, we recorded the following information about you: Weight Height 124.5 kg 1.702 m Allergies As of Date: 04/21/2025 Noted Allergy Reaction BACITRACIN (BULK) 02/07/2019 4 - Hives CODEINE 02/07/2019 16 - Unknown DUST MITES 01/23/2020 14 - Other: See Comments GENTAMICIN 11/30/2021 7 - Swelling Comments: redness of eye watery and itching MOLD 01/23/2020 16 - Unknown SULFA (SULFONAMIDE ANTIBIOTICS) 02/07/2019 14 - Other: See Comments Comments: redness SULFABENZAMIDE 11/30/2021 4 - Hives TREE POLLEN-RED MAPLE 02/16/2021 12 - Shortness of Breath Date Reviewed: 02/24/2025 Reviewed by: Екатерина Escalante APRN.MICROGRINDER OPERATOR - Fully Assessed Prescriptions as of 04/21/2025 - valsartan (DIOVAN) 320 mg tablet Take 1 tablet by mouth once daily. - diclofenac (VOLTAREN) 1 % topical gel Apply 2 g to affected area four times daily. - semaglutide (OZEMPIC) 2 mg/dose (8 mg/3 mL) pen injector Inject 2 mg subcutaneously one time a week. - gabapentin enacarbil (HORIZANT) 300 mg TbER Take 1 tablet TID. - pramipexole (MIRAPEX) 0.125 mg tablet Take 1 tablet at 2 PM, 1 tablet at dinnertime, 2 tablets at 9 pm, and 2 tablets at bedtime - omeprazole (PRILOSEC) 40 mg capsule Take 1 capsule by mouth two times a day. - atorvastatin (LIPITOR) 10 mg tablet Take 1 tablet by mouth once daily. - buPROPion SR (WELLBUTRIN SR) 150 mg 12 hr tablet Take 1 tablet by mouth once daily. - conjugated estrogens (PREMARIN) vaginal cream Use 0.5 g vaginally two times a week. - levothyroxine (SYNTHROID) 75 mcg tablet take 1 tablet by mouth once daily ON AN EMPTY STOMACH - naproxen (NAPROSYN) 500 mg tablet Take 1 tablet by mouth two times a day as needed. Take with food. - montelukast (SINGULAIR) 10 mg tablet Take 1 tablet by mouth daily at bedtime. - nystatin (MYCOSTATIN) powder Apply 1 application to affected area four times daily. - fluticasone (FLONASE) 50 mcg/actuation nasal spray instill 2 sprays into each nostril once daily - ketoconazole (NIZORAL) 2 % cream Apply to affected area once daily. Used for fungal skin fold rashes - LUMIGAN 0.01 % drop ophthalmic drops instill 1 drop into both eyes at bedtime - fluorometholone (FML LIQUID FILM) 0.1 % ophthalmic suspension instill 1 drop into both eyes twice a day as directed - fluorometholone (FML LIQUID FILM) 0.1 % ophthalmic suspension 1 Drop every 4 hours. - ascorbic acid, vitamin C, (VITAMIN C) 500 mg tablet Take 1 tablet by mouth twice daily with meals for 27 doses. - aspirin, enteric coated (ASPIRIN, ENTERIC COATED) 81 mg EC tablet Take 1 tablet by mouth twice daily for 28 days. - Magnesium Oxide 500 mg tab Take 500 mg by mouth once daily. Taking in gummy form - ubidecarenone (COENZYME Q10) 100 mg tab Take 200 mg by mouth once daily. - simethicone (GAS-X ORAL) Take 125 mg by mouth twice daily. - multivit,thx,calcium,iron,mins (MULTIVITAMIN AND MINERAL ORAL) Take 1 tablet by mouth once daily. - vitamin K2 100 mcg cap Take 100 mcg by mouth. - Zinc 50 mg tab Take 50 mg by mouth. - amLODIPine (NORVASC) 2.5 mg tablet Take 2.5 mg by mouth once daily. - metoprolol tartrate, short acting, (LOPRESSOR) 50 mg tablet Take 50 mg by mouth once daily. - Bifidobacterium infantis (ALIGN ORAL) Take 1 tablet by mouth once daily. - amoxicillin (POLYMOX, AMOXIL) 500 mg capsule Take 500 mg by mouth. Take 4 capsules 1 hour before dental procedures. - ferrous sulfate EC 324 mg (65 mg iron) TbEC Take 324 mg by mouth once daily. Twice a day Encounter Status:Closed by RADHA HIGH on 04/21/25 [facility] 04-21-2025 Note HNO ID: [id number] Author: RADHA HIGH RD Service: ? Author Type: Registered Dietitian Type: Progress Notes Filed: 04/21/2025 13:32 Note Text: 10:57 AM Nutritional Therapy Re-Assessment Nutrition Diagnosis: Overweight/obesity, related to, excess energy intake and physical inactivity, as evidenced by BMI above normative standard for age and gender RECOMMENDED MALNUTRITION DIAGNOSIS: NO MALNUTRITION IDENTIFIED NUTRITION CARE PLAN: Nutrition Intervention 04/21/2025: modify type and amount of food or beverage Choose whole grain breads and grains when having Avoid snacking/grazing between meals If early dinner OK for one evening snack; if late dinner no evening snack but include an afternoon snack Try dried edamame for a snack or make own: Put that into the oven on 425F/218C for 20-25 minutes or your air fryer on 375F/190C for around 10-12 minutes Dip ideas for carrots: [place] [employer] or plain non fat Czech yogurt with dry ranch dressing mix All meals and snacks at the dinner table; minimize distractions, no TV while eating. Make meals last at least 20 min, chew each bite of food 20 x per bite.Portion out all foods, never eat out of container. Become more mindful of meal: Enjoy flavors, textures etc. Use hunger/fullness scale. Nutrition Monitoring AND Evaluation: half to one pound weight loss per week Need for Follow up: 4-6 weeks PROGRESS: Interval History: following as relates to class 3 obesity Body mass index is 42.99 kg/m?. DM, GERD. Weight stable from last visit after losing some weight then regaining. Excess energy lately from frequent celebrations and evens, grazing/snacking throughout the day along with no exercise and limited activity. Struggling with motivation to follow a plan and exercise. Continues Ozempic for appetite control. More parties and events Struggling with motivation Was down to 271.5 but regained Zuchinin bread all day Nutrition Intervention 03/10/25 Continue 3 meals and a small evening snack of 150-200 calories Add exercise 3 days per week: seated exercises or dancing Actions to implement interventions: More snacking/grazing Diet History: Breakfast - protein bar Snack - clio bar Lunch - 11-omelet with spinach; BLT with dickey and spinach; tortilla with beef or chicken or cheese/spinach Snack - zuchini bread, yasso bar Dinner - (lately -8 with events) may cook; chicken renee; frozen meals, personal pizza; Snack - yasso bar Beverages - water, coffee, diet juice, diet soda Alcohol - no Vitamins/Supplements - MVI, vit C, zinc, magnesium, CoQ10, fibr, vit D, probiotic, Chocolate zuchini bread throughout the day until gone Activity: 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 Resting Metabolic Rate: 1757 Malnutrition Screening Significant unintentional weight loss? No Eating less than 75% of usual intake for more than 2 weeks? No Potential Signs of Inflammation: no identifiable sources Nutritional status: Food Insecurity: No Food Insecurity (04/21/2025) Hunger Vital Sign Worried About Running Out of Food in the Last Year: Never true Ran Out of Food in the Last Year: Never true Education Materials Provided: None this visit READINESS TO LEARN Cognitive ability: Alert and oriented Motivation to learn: Interested Family support: Unable to assess - Family not present Instruction provided to: Patient Patient learns best by: Individual Instruction Factors affecting learning: None Physical limitations affecting learning: None Likelihood of Adherence: Moderate Referred/Supervised by: Noah CLEMENTS Billing Type: Re-assess 3 units 11:41 AM Total Time (mins): 44 SIGNATURE: Radha High RD PATIENT NAME: Kemal Cantu DATE: April 21, 2025 TIME: 11:00 AM [facility] 04-21-2025 History of Presen t illness Narrative 10:57 AM Nutritional Therapy Re-Assessment Nutrition Diagnosis: Overweight/obesity, related to, excess energy intake and physical inactivity, as evidenced by BMI above normative standard for age and gender RECOMMENDED MALNUTRITION DIAGNOSIS: NO MALNUTRITION IDENTIFIED NUTRITION CARE PLAN: Nutrition Intervention 04/21/2025: modify type and amount of food or beverage Choose whole grain breads and grains when having Avoid snacking/grazing between meals If early dinner OK for one evening snack; if late dinner no evening snack but include an afternoon snack Try dried edamame for a snack or make own: Put that into the oven on 425F/218C for 20-25 minutes or your air fryer on 375F/190C for around 10-12 minutes Dip ideas for carrots: [place] [employer] or plain non fat [place] yogurt with dry ranch dressing mix All meals and snacks at the dinner table; minimize distractions, no TV while eating. Make meals last at least 20 min, chew each bite of food 20 x per bite.Portion out all foods, never eat out of container. Become more mindful of meal: Enjoy flavors, textures etc. Use hunger/fullness scale. Nutrition Monitoring & Evaluation: half to one pound weight loss per week Need for Follow up: 4-6 weeks PROGRESS: Interval History: following as relates to class 3 obesity Body mass index is 42.99 kg/m . DM, GERD. Weight stable from last visit after losing some weight then regaining. Excess energy lately from frequent celebrations and evens, grazing/snacking throughout the day along with no exercise and limited activity. Struggling with motivation to follow a plan and exercise. Continues Ozempic for appetite control. More parties and events Struggling with motivation Was down to 271.5 but regained Zuchinin bread all day Nutrition Intervention 03/10/25 Continue 3 meals and a small evening snack of 150-200 calories Add exercise 3 days per week: seated exercises or dancing Actions to implement interventions: More snacking/grazing Diet History: Breakfast - protein bar Snack - clio bar Lunch - 11-omelet with spinach; BLT with dickey and spinach; tortilla with beef or chicken or cheese/spinach Snack - zuchini bread, yasso bar Dinner - (lately -8 with events) may cook; chicken renee; frozen meals, personal pizza; Snack - yasso bar Beverages - water, coffee, diet juice, diet soda Alcohol - no Vitamins/Supplements - MVI, vit C, zinc, magnesium, CoQ10, fibr, vit D, probiotic, Chocolate zuchini bread throughout the day until gone Activity: 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 Resting Metabolic Rate: 1757 Malnutrition Screening Significant unintentional weight loss? No Eating less than 75% of usual intake for more than 2 weeks? No Potential Signs of Inflammation: no identifiable sources Nutritional status: Food Insecurity: No Food Insecurity (04/21/2025) Hunger Vital Sign Worried About Running Out of Food in the Last Year: Never true Ran Out of Food in the Last Year: Never true Education Materials Provided: None this visit READINESS TO LEARN Cognitive ability: Alert and oriented Motivation to learn: Interested Family support: Unable to assess - Family not present Instruction provided to: Patient Patient learns best by: Individual Instruction Factors affecting learning: None Physical limitations affecting learning: None Likelihood of Adherence: Moderate Referred/Supervised by: Sammi/Sammi CLEMENTS Billing Type: Re-assess 3 units 11:41 AM Total Time (mins): 44 SIGNATURE: Radha High RD PATIENT NAME: Kemal Cantu DATE: April 21, 2025 TIME: 11:00 AM documented in this encounter [facility] 03-10-[address] - 03/10/2025 11:24 AM EDT Continue 3 meals and a small evening snack of 150-200 calories Add exercise 3 days per week: seated exercises or dancing documented in this encounter [facility] 03-10-2025 Note Education (NUTRWS) KEMAL CANTU ([id number]) 1945 F Date Time Provider Department 03/10/25 11:00 AM RADHA HIGH Reason for Visit: Reassessment [674] Patient Education [91] Primary Visit Diagnosis:Class 3 severe obesity without serious comorbidity with body mass index (BMI) of 45.0 to 49.9 in adult, unspecified obesity type (HCC) [E66.813, Z68.42] Other Visit Diagnoses:Gastroesophageal reflux disease with esophagitis, unspecified whether hemorrhage [K21.00] Dietary counseling [Z71.3] Controlled type 2 diabetes mellitus without complication, without long-term current use of insulin (HCC) [E11.9] During your visit today, we recorded the following information about you: Weight Height 124.3 kg 1.702 m Allergies As of Date: 03/10/2025 Noted Allergy Reaction BACITRACIN (BULK) 02/07/2019 4 - Hives CODEINE 02/07/2019 16 - Unknown DUST MITES 01/23/2020 14 - Other: See Comments GENTAMICIN 11/30/2021 7 - Swelling Comments: redness of eye watery and itching MOLD 01/23/2020 16 - Unknown SULFA (SULFONAMIDE ANTIBIOTICS) 02/07/2019 14 - Other: See Comments Comments: redness SULFABENZAMIDE 11/30/2021 4 - Hives TREE POLLEN-RED MAPLE 02/16/2021 12 - Shortness of Breath Date Reviewed: 02/24/2025 Reviewed by: Екатерина Escalante APRN.MICROGRINDER OPERATOR - Fully Assessed Prescriptions as of 03/10/2025 - valsartan (DIOVAN) 320 mg tablet Take 1 tablet by mouth once daily. - diclofenac (VOLTAREN) 1 % topical gel Apply 2 g to affected area four times daily. - semaglutide (OZEMPIC) 2 mg/dose (8 mg/3 mL) pen injector Inject 2 mg subcutaneously one time a week. - gabapentin enacarbil (HORIZANT) 300 mg TbER Take 1 tablet TID. - pramipexole (MIRAPEX) 0.125 mg tablet Take 1 tablet at 2 PM, 1 tablet at dinnertime, 2 tablets at 9 pm, and 2 tablets at bedtime - omeprazole (PRILOSEC) 40 mg capsule Take 1 capsule by mouth two times a day. - atorvastatin (LIPITOR) 10 mg tablet Take 1 tablet by mouth once daily. - buPROPion SR (WELLBUTRIN SR) 150 mg 12 hr tablet Take 1 tablet by mouth once daily. - conjugated estrogens (PREMARIN) vaginal cream Use 0.5 g vaginally two times a week. - levothyroxine (SYNTHROID) 75 mcg tablet take 1 tablet by mouth once daily ON AN EMPTY STOMACH - naproxen (NAPROSYN) 500 mg tablet Take 1 tablet by mouth two times a day as needed. Take with food. - montelukast (SINGULAIR) 10 mg tablet Take 1 tablet by mouth daily at bedtime. - nystatin (MYCOSTATIN) powder Apply 1 application to affected area four times daily. - fluticasone (FLONASE) 50 mcg/actuation nasal spray instill 2 sprays into each nostril once daily - ketoconazole (NIZORAL) 2 % cream Apply to affected area once daily. Used for fungal skin fold rashes - LUMIGAN 0.01 % drop ophthalmic drops instill 1 drop into both eyes at bedtime - fluorometholone (FML LIQUID FILM) 0.1 % ophthalmic suspension instill 1 drop into both eyes twice a day as directed - fluorometholone (FML LIQUID FILM) 0.1 % ophthalmic suspension 1 Drop every 4 hours. - ascorbic acid, vitamin C, (VITAMIN C) 500 mg tablet Take 1 tablet by mouth twice daily with meals for 27 doses. - aspirin, enteric coated (ASPIRIN, ENTERIC COATED) 81 mg EC tablet Take 1 tablet by mouth twice daily for 28 days. - Magnesium Oxide 500 mg tab Take 500 mg by mouth once daily. Taking in gummy form - ubidecarenone (COENZYME Q10) 100 mg tab Take 200 mg by mouth once daily. - simethicone (GAS-X ORAL) Take 125 mg by mouth twice daily. - multivit,thx,calcium,iron,mins (MULTIVITAMIN AND MINERAL ORAL) Take 1 tablet by mouth once daily. - vitamin K2 100 mcg cap Take 100 mcg by mouth. - Zinc 50 mg tab Take 50 mg by mouth. - amLODIPine (NORVASC) 2.5 mg tablet Take 2.5 mg by mouth once daily. - metoprolol tartrate, short acting, (LOPRESSOR) 50 mg tablet Take 50 mg by mouth once daily. - Bifidobacterium infantis (ALIGN ORAL) Take 1 tablet by mouth once daily. - amoxicillin (POLYMOX, AMOXIL) 500 mg capsule Take 500 mg by mouth. Take 4 capsules 1 hour before dental procedures. - ferrous sulfate EC 324 mg (65 mg iron) TbEC Take 324 mg by mouth once daily. Twice a day Encounter Status:Closed by RADHA HIGH on 03/10/25 [facility] 03-10-2025 Note HNO ID: [id number] Author: RADHA HIGH RD Service: ? Author Type: Registered Dietitian Type: Progress Notes Filed: 03/10/2025 11:37 Note Text: 10:55 AM Nutritional Therapy Re-Assessment Nutrition Diagnosis: Overweight/obesity, related to, excess energy intake and physical inactivity, as evidenced by BMI above normative standard for age and gender RECOMMENDED MALNUTRITION DIAGNOSIS: NO MALNUTRITION IDENTIFIED NUTRITION CARE PLAN: Nutrition Intervention 03/10/2025: modify type and amount of food or beverage Continue 3 meals and a small evening snack of 150-200 calories Add exercise 3 days per week: seated exercises or dancing Nutrition Monitoring AND Evaluation: half pound weight loss per week Need for Follow up:4-6 weeks PROGRESS: Interval History: following as relates to class 3 obesity Body mass index is 42.91 kg/m?., GERD, DM controlled well. Continues Ozempic. Had the flu, frequent celebrations, limited activity and exercise related to pain. Typically eating three meals and excess snacking in evening . Weight increased likely one pound from last visit. 2 birthday parties this past weekend Nutrition Intervention 01/27/25 Aim for 3 meals and no snacks Focus on small portions, mindful eating Add in 10 min exercise bike daily (more if tolerated) Actions to implement interventions: limited Diet History: Breakfast - protein bar and clio bar Snack - no Brunch - omelet, turkey sandwich, grilled cheese, left overs Snack - no Dinner - 3-4 frozen fish, TV dinners Snack - yasso bar, pretzels, pnb pretzels, popcorn Beverages - water, coffee, diet juice, diet soda Alcohol - no Vitamins/Supplements - MVI, vit C, zinc, magnesium, CoQ10, fiber, vit D, probiotic Activity: Activities of Daily Living: Active 25% of the day. 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 Resting Metabolic Rate: 1755 Malnutrition Screening Significant unintentional weight loss? No Eating less than 75% of usual intake for more than 2 weeks? No Potential Signs of Inflammation: no identifiable sources Nutritional status: Food Insecurity: No Food Insecurity (03/10/2025) Hunger Vital Sign Worried About Running Out of Food in the Last Year: Never true Ran Out of Food in the Last Year: Never true Education Materials Provided: None this visit READINESS TO LEARN Cognitive ability: Alert and oriented Motivation to learn: Interested Family support: Unable to assess - Family not present Instruction provided to: Patient Patient learns best by: Individual Instruction Factors affecting learning: None Physical limitations affecting learning: None Likelihood of Adherence: Moderate Referred/Supervised by: Noah CLEMENTS Billing Type: Re-assess 3 units 11:34 AM Total Time (mins): 39 SIGNATURE: Radha High RD PATIENT NAME: Kemal Cantu DATE: March 10, 2025 TIME: 10:59 AM [facility] 03-10-2025 History of Presen t illness Narrative 10:55 AM Nutritional Therapy Re-Assessment Nutrition Diagnosis: Overweight/obesity, related to, excess energy intake and physical inactivity, as evidenced by BMI above normative standard for age and gender RECOMMENDED MALNUTRITION DIAGNOSIS: NO MALNUTRITION IDENTIFIED NUTRITION CARE PLAN: Nutrition Intervention 03/10/2025: modify type and amount of food or beverage Continue 3 meals and a small evening snack of 150-200 calories Add exercise 3 days per week: seated exercises or dancing Nutrition Monitoring & Evaluation: half pound weight loss per week Need for Follow up:4-6 weeks PROGRESS: Interval History: following as relates to class 3 obesity Body mass index is 42.91 kg/m ., GERD, DM controlled well. Continues Ozempic. Had the flu, frequent celebrations, limited activity and exercise related to pain. Typically eating three meals and excess snacking in evening . Weight increased likely one pound from last visit. 2 birthday parties this past weekend Nutrition Intervention 01/27/25 Aim for 3 meals and no snacks Focus on small portions, mindful eating Add in 10 min exercise bike daily (more if tolerated) Actions to implement interventions: limited Diet History: Breakfast - protein bar and clio bar Snack - no Brunch - omelet, turkey sandwich, grilled cheese, left overs Snack - no Dinner - 3-4 frozen fish, TV dinners Snack - yasso bar, pretzels, pnb pretzels, popcorn Beverages - water, coffee, diet juice, diet soda Alcohol - no Vitamins/Supplements - MVI, vit C, zinc, magnesium, CoQ10, fiber, vit D, probiotic Activity: Activities of Daily Living: Active 25% of the day. 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 Resting Metabolic Rate: 1755 Malnutrition Screening Significant unintentional weight loss? No Eating less than 75% of usual intake for more than 2 weeks? No Potential Signs of Inflammation: no identifiable sources Nutritional status: Food Insecurity: No Food Insecurity (03/10/2025) Hunger Vital Sign Worried About Running Out of Food in the Last Year: Never true Ran Out of Food in the Last Year: Never true Education Materials Provided: None this visit READINESS TO LEARN Cognitive ability: Alert and oriented Motivation to learn: Interested Family support: Unable to assess - Family not present Instruction provided to: Patient Patient learns best by: Individual Instruction Factors affecting learning: None Physical limitations affecting learning: None Likelihood of Adherence: Moderate Referred/Supervised by: Sammi/Sammi CLEMENTS Billing Type: Re-assess 3 units 11:34 AM Total Time (mins): 39 SIGNATURE: Radha High RD PATIENT NAME: Kemal Cantu DATE: March 10, 2025 TIME: 10:59 AM documented in this encounter [facility] 02-24-2025 Note HNO ID: [id number] Author: ЕКАТЕРИНА ESCALANTE APRN.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 Author Type: Nurse Practitioner Type: Progress Notes Filed: 02/24/2025 16:21 Note Text: CC: Patient presents with: Recheck: 6 month follow up HPI Kemal Cantu is a 79 year old female who presents today for follow up. Recording using [employer] software for draft documentation of the visit was discussed with the patient/authorized accounts payable representative; all questions welcomed and answered. Patient/authorized accounts payable representative agreed to proceed Fatigue: Ongoing with low motivation - Has difficulty sleeping; reports never sleeping well. - Experiences feelings of loneliness; moved to be near grandchildren but has no friends in the area. - Misses the mountains and friends in [place]. - Feels stuck in current living situation and landscape. - Considering building a dowdy house on son's property. - Attends religion regularly. - No thoughts of self-harm or harm to others. Hand Pain: - Pain in right pinky and left thumb joints, worsening over the last 3 months. - No recent injuries; - No major swelling, fever, or chills. - Able to move fingers but experiences pain during repetitive activities which is a problem for her crafting, art,and knitting. - No weakness or dropping objects; difficulty opening jars due to thumb pain. - No current treatment for hand pain; has used Voltaren gel in the past. Arthritis: - Diagnosed with arthritis in multiple joints. - Reports pain in multiple joints and decreased mobility. - Believes left hip is going downhill and needs to follow up with her orthopedist as it may need surgery now - Right hip has not fully recovered strength post-surgery. Hypertension: - Managed with Valsartan; needs a refill. - Does not check blood pressure at home; previous machine was unreliable. - Denies abnormal headaches, swelling, dyspnea, palpitations, or chest pain. - No regular exercise; occasionally uses a step machine. - Attempts to follow a low-fat, low-salt diet; successful ~75% of the time. - Lost 45 lbs but regained 15 lbs; currently trying to lose weight again. Diabetes Mellitus: - Managed with Ozempic. - Does not check blood sugar at home; reports blood sugar has been so low. - Occasional symptoms of hypoglycemia, including lightheadedness and feeling woozy or druggy. A few times a month - Symptoms relieved by eating. - Denies increased thirst, hunger, urination, or numbness. Hypothyroidism: - Managed with levothyroxine, taken once daily on an empty stomach. - No abnormal changes in weight. Restless Leg Syndrome: - Managed with Mirapex and Horizant. - Insurance issues with Horizant; had to switch to gabapentin temporarily, which was poorly tolerated. - Currently back on Horizant; uncertain about future coverage. - Taking iron supplement; iron levels are high. REVIEW OF SYSTEMS See HPI PAST MEDICAL HISTORY Diagnosis Date Diabetes mellitus (HCC) Fibromyalgia Fuchs' corneal dystrophy Gastroesophageal reflux disease Glaucoma HTN (hypertension) Hypothyroidism Irritable bowel syndrome Migraines MAURICE (obstructive sleep apnea) does not use c-pap Osteoarthritis Plantar fasciitis PONV (postoperative nausea and vomiting) Pseudophakia PTSD (post-traumatic stress disorder) Restless leg syndrome Sleep apnea in adult TMJ (dislocation of temporomandibular joint) PAST SURGICAL HISTORY Procedure Laterality Date CATARACT EXTRACTION W/ INTRAOCULAR LENS IMPLANT HX Bilateral 2016 COLONOSCOPY FLX DX W/COLLJ SPEC WHEN PFRMD 06/21/2021 CORNEAL TISSUE DSAEK/DMEK Left 09/30/2019 Dr. Clark ENDOTHELIAL KERATOPLASTY(DMEK) Right 04/17/2019 ENDOTHELIAL KERATOPLASTY/DSAEK Right 03/18/2019 ESOPHAGOGASTRODUODENOSCOPY TRANSORAL DIAGNOSTIC 06/21/2021 PAST SURGICAL HISTORY OF 1972 parathyroid adenoma surgery PAST SURGICAL HISTORY OF 1988 hysterectomy with prolapsed bladder repair PAST SURGICAL HISTORY OF 1992 abdominoplasty PAST SURGICAL HISTORY OF 1993 breast reduction PAST SURGICAL HISTORY OF 1979 deviated septum repair PAST SURGICAL HISTORY OF 1965 DANDC after miscarriage PAST SURGICAL HISTORY OF 2013 Total right knee repalcement PAST SURGICAL HISTORY OF 11/2013 total left knee replacement PAST SURGICAL HISTORY OF 2015 rectocele repair with vaginal mesh PAST SURGICAL HISTORY OF 11/01/2015 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 [facility] 02-24-2025 History of Presen t illness Narrative CC: Patient presents with: Recheck: 6 month follow up HPI Kemal Cantu is a 79 year old female who presents today for follow up. Recording using [employer] software for draft documentation of the visit was discussed with the patient/authorized accounts payable representative; all questions welcomed and answered. Patient/authorized accounts payable representative agreed to proceed Fatigue: Ongoing with low motivation - Has difficulty sleeping; reports never sleeping well. - Experiences feelings of loneliness; moved to be near grandchildren but has no friends in the area. - Misses the mountains and friends in [place]. - Feels stuck in current living situation and landscape. - Considering building a dowdy house on son's property. - Attends religion regularly. - No thoughts of self-harm or harm to others. Hand Pain: - Pain in right pinky and left thumb joints, worsening over the last 3 months. - No recent injuries; - No major swelling, fever, or chills. - Able to move fingers but experiences pain during repetitive activities which is a problem for her crafting, art,and knitting. - No weakness or dropping objects; difficulty opening jars due to thumb pain. - No current treatment for hand pain; has used Voltaren gel in the past. Arthritis: - Diagnosed with arthritis in multiple joints. - Reports pain in multiple joints and decreased mobility. - Believes left hip is going downhill and needs to follow up with her orthopedist as it may need surgery now - Right hip has not fully recovered strength post-surgery. Hypertension: - Managed with Valsartan; needs a refill. - Does not check blood pressure at home; previous machine was unreliable. - Denies abnormal headaches, swelling, dyspnea, palpitations, or chest pain. - No regular exercise; occasionally uses a step machine. - Attempts to follow a low-fat, low-salt diet; successful ~75% of the time. - Lost 45 lbs but regained 15 lbs; currently trying to lose weight again. Diabetes Mellitus: - Managed with Ozempic. - Does not check blood sugar at home; reports blood sugar has been so low. - Occasional symptoms of hypoglycemia, including lightheadedness and feeling woozy or druggy. A few times a month - Symptoms relieved by eating. - Denies increased thirst, hunger, urination, or numbness. Hypothyroidism: - Managed with levothyroxine, taken once daily on an empty stomach. - No abnormal changes in weight. Restless Leg Syndrome: - Managed with Mirapex and Horizant. - Insurance issues with Horizant; had to switch to gabapentin temporarily, which was poorly tolerated. - Currently back on Horizant; uncertain about future coverage. - Taking iron supplement; iron levels are high. REVIEW OF SYSTEMS See HPI PAST MEDICAL HISTORY Diagnosis Date Diabetes mellitus (HCC) Fibromyalgia Fuchs' corneal dystrophy Gastroesophageal reflux disease Glaucoma HTN (hypertension) Hypothyroidism Irritable bowel syndrome Migraines MAURICE (obstructive sleep apnea) does not use c-pap Osteoarthritis Plantar fasciitis PONV (postoperative nausea and vomiting) Pseudophakia PTSD (post-traumatic stress disorder) Restless leg syndrome Sleep apnea in adult TMJ (dislocation of temporomandibular joint) PAST SURGICAL HISTORY Procedure Laterality Date CATARACT EXTRACTION W/ INTRAOCULAR LENS IMPLANT HX Bilateral 2016 COLONOSCOPY FLX DX W/COLLJ SPEC WHEN PFRMD 06/21/2021 CORNEAL TISSUE DSAEK/DMEK Left 09/30/2019 Dr. Clark ENDOTHELIAL KERATOPLASTY(DMEK) Right 04/17/2019 ENDOTHELIAL KERATOPLASTY/DSAEK Right 03/18/2019 ESOPHAGOGASTRODUODENOSCOPY TRANSORAL DIAGNOSTIC 06/21/2021 PAST SURGICAL HISTORY OF 1972 parathyroid adenoma surgery PAST SURGICAL HISTORY OF 1988 hysterectomy with prolapsed bladder repair PAST SURGICAL HISTORY OF 1992 abdominoplasty PAST SURGICAL HISTORY OF 1993 breast reduction PAST SURGICAL HISTORY OF 1979 deviated septum repair PAST SURGICAL HISTORY OF 1966 D&C after miscarriage PAST SURGICAL HISTORY OF 2013 Total right knee repalcement PAST SURGICAL HISTORY OF 11/2013 total left knee replacement PAST SURGICAL HISTORY OF 2015 rectocele repair with vaginal mesh PAST SURGICAL HISTORY OF 11/01/2015 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 PAST SURGICAL HISTORY OF 2019 DMEK Corneal Transplant-Right eye PAST SURGICAL HISTORY OF Left 10/10/2019 INJECTION, ANTERIOR CHAMBER OF EYE; AIR PAST SURGICAL HISTORY OF Right 1996 cyst removal off right 4 toe PAST SURGICAL HISTORY OF hammer toe surgery PAST SURGICAL HISTORY OF 04/2022 Prolasped vagina PRQ CARDIAC STENT W/ANGIO 1 VSL 03/02/2021 90% blockage RCA SKIN LESION BIOPSY 10/2015 x2 face TOTAL HIP REPLACEMENT Right 03/15/2023 Right Total hip replacement YAG CAPSULOTOMY OD (RIGHT EYE) 2018 YAG CAPSULOTOMY OS (LEFT EYE) 2017 ALLERGIES Bacitracin (Bulk), Codeine, Dust Mites, Gentamicin, Mold, Sulfa (Sulfonamide Antibiotics), Sulfabenzamide, and Tree Pollen-Red Maple MEDICATIONS valsartan (DIOVAN) 320 mg tablet Take 1 tablet by mouth once daily. diclofenac (VOLTAREN) 1 % topical gel Apply 2 g to affected area four times daily. semaglutide (OZEMPIC) 2 mg/dose (8 mg/3 mL) pen injector Inject 2 mg subcutaneously one time a week. gabapentin enacarbil (HORIZANT) 300 mg TbER Take 1 tablet TID. pramipexole (MIRAPEX) 0.125 mg tablet Take 1 tablet at 2 PM, 1 tablet at dinnertime, 2 tablets at 9 pm, and 2 tablets at bedtime omeprazole (PRILOSEC) 40 mg capsule Take 1 capsule by mouth two times a day. atorvastatin (LIPITOR) 10 mg tablet Take 1 tablet by mouth once daily. buPROPion SR (WELLBUTRIN SR) 150 mg 12 hr tablet Take 1 tablet by mouth once daily. conjugated estrogens (PREMARIN) vaginal cream Use 0.5 g vaginally two times a week. levothyroxine (SYNTHROID) 75 mcg tablet take 1 tablet by mouth once daily ON AN EMPTY STOMACH naproxen (NAPROSYN) 500 mg tablet Take 1 tablet by mouth two times a day as needed. Take with food. montelukast (SINGULAIR) 10 mg tablet Take 1 tablet by mouth daily at bedtime. nystatin (MYCOSTATIN) powder Apply 1 application to affected area four times daily. fluticasone (FLONASE) 50 mcg/actuation nasal spray instill 2 sprays into each nostril once daily ketoconazole (NIZORAL) 2 % cream Apply to affected area once daily. Used for fungal skin fold rashes LUMIGAN 0.01 % drop ophthalmic drops instill 1 drop into both eyes at bedtime fluorometholone (FML LIQUID FILM) 0.1 % ophthalmic suspension instill 1 drop into both eyes twice a day as directed fluorometholone (FML LIQUID FILM) 0.1 % ophthalmic suspension 1 Drop every 4 hours. ascorbic acid, vitamin C, (VITAMIN C) 500 mg tablet Take 1 tablet by mouth twice daily with meals for 27 doses. aspirin, enteric coated (ASPIRIN, ENTERIC COATED) 81 mg EC tablet Take 1 tablet by mouth twice daily for 28 days. Magnesium Oxide 500 mg tab Take 500 mg by mouth once daily. Taking in gummy form ubidecarenone (COENZYME Q10) 100 mg tab Take 200 mg by mouth once daily. simethicone (GAS-X ORAL) Take 125 mg by mouth twice daily. multivit,thx,calcium,iron,mins (MULTIVITAMIN AND MINERAL ORAL) Take 1 tablet by mouth once daily. vitamin K2 100 mcg cap Take 100 mcg by mouth. Zinc 50 mg tab Take 50 mg by mouth. amLODIPine (NORVASC) 2.5 mg tablet Take 2.5 mg by mouth once daily. metoprolol tartrate, short acting, (LOPRESSOR) 50 mg tablet Take 50 mg by mouth once daily. Bifidobacterium infantis (ALIGN ORAL) Take 1 tablet by mouth once daily. amoxicillin (POLYMOX, AMOXIL) 500 mg capsule Take 500 mg by mouth. Take 4 capsules 1 hour before dental procedures. ferrous sulfate EC 324 mg (65 mg iron) TbEC Take 324 mg by mouth once daily. Twice a day FAMILY HISTORY Problem Relation Age of Onset Heart Mother Diabetes Mother Heart Father Stroke Father Cataract Paternal Grandfather Glaucoma Other Social History Tobacco Use Smoking status: Never Passive exposure: Past Smokeless tobacco: Never Tobacco comments: Second hand smoke (mother) Vaping Use Vaping status: Never Used Substance Use Topics Alcohol use: Yes Alcohol/week: 1.0 standard drink of alcohol Types: 1 Glasses of wine per week Comment: 3-4 glasses of wine per year Drug use: Never PHYSICAL EXAM BP 132/78 Pulse 64 Resp 16 Wt 124.7 kg (275 lb) SpO2 99% BMI 43.07 kg/m General Appearance: well appearing, in no acute distress, alert Pysch: mood and affect broad and appropriate Eyes: conjunctiva pink and moist, no icterus, sclera white, non-injected Neck: Thyroid normal size and symmetric without palpable nodules, Neck supple, No adenopathy Lymph nodes: No cervical lymphadenopathy and No supraclavicular lymphadenopathy Lungs: Lungs clear to auscultation. No wheezing, rhonchi, rales. Heart: RRR without murmur, gallop, or rubs. No ectopy BUE: No deformities, edema, skin discoloration, clubbing or cyanosis. Good capillary refill. Musculoskeletal: Left pinky finger with DIP slight enlargement. No other deformities, edema or discoloration. Full ROM and sensation and ROM intact Health maintenance reviewed with patient: Medicare Annual Wellness Visit due on 11/17/2023 Diabetic Foot Exam due on 01/27/2024 Advance Directive Discussion due on 08/14/2024 HbA1C due on 02/17/2025 Urine Albumin:Creatinine Ratio due on 02/12/2025 Covid-19 Vaccine( season) due on 08/26/2025 Influenza Vaccine(1) due on 04/14/2025 Dilated Retinal Exam due on 05/16/2025 LDL Cholesterol due on 08/20/2025 Serum Creatinine due on 08/20/2025 Annual PCP Team Chronic Disease Visit due on 08/26/2025 DTaP,Tdap,Td Vaccine(3 - Td or Tdap) due on 01/28/2034 Bone Density Screening Completed RSV Vaccine Completed Shingrix Vaccine Completed Mammogram Screening Discontinued Colorectal Cancer Screening Discontinued Pneumococcal Vaccine: 50+ Discontinued DATA REVIEWED: Most recent labs Assessment/Plan 1. Multiple joint pain (M25.50) 2. Other fatigue (R53.83) 3. Decreased mobility (R26.89) - Ordered labs to evaluate for autoimmune disorders, including CRP, ESR, RF, and LUAN. - Scheduled follow-up with orthopedics for ongoing right hip pain and decreased mobility. - Discussed potential causes of fatigue, including current life situation and possible underlying medical conditions. - Provided education on lifestyle modifications to improve mobility and reduce joint pain, including regular exercise and weight management. - physical therapy may be very beneficial as well 4. Essential hypertension, benign (I10) - Blood pressure readings are close to target; continue valsartan. - Refilled valsartan prescription. - Advised patient to obtain a reliable home blood pressure monitor for regular monitoring. - Encouraged adherence to a low-sodium, heart-healthy diet. - weight loss and regular exercise will help to improve this as well. 5. Primary osteoarthritis of right hand (M19.041) 6. Primary osteoarthritis, left hand (M19.042) - Increased pain in right pinky and left thumb over the past 3 months. - No recent injuries; mild deformity noted in right pinky. - Prescribed Voltaren gel for topical application to affected joints. - Advised use of heat, ice, and rest as needed. - Discussed potential use of NSAIDs like ibuprofen or acetaminophen for pain management. - declined xrays at this time. 7. Type 2 diabetes mellitus without complication, without long-term current use of insulin (HCC) (E11.9) - Ordered hemoglobin A1c to assess glycemic control. - Patient reports occasional symptoms of hypoglycemia; advised to monitor blood sugar levels at home. - Continue current medication regimen, including Ozempic. - Encouraged adherence to a balanced diet and regular physical activity. 8. RLS (restless legs syndrome) (G25.81) - Well controlled on Mirapex and iron supplementation. - Discussed previous issues with insurance coverage for Horizant. - Continue current medication regimen. 9. Loneliness (R45.89) - Discussed feelings of loneliness and lack of motivation. - Provided information on local activities and groups, including the [employer], and [employer]. - Encouraged participation in religion activities and community events. - Discussed potential benefits of increasing Wellbutrin dosage; patient to consider. Prescription instructions reviewed with patient as applicable. Potential red flag symptoms discussed with the patient. Reviewed appropriate action plan to take if red flag symptoms occur. Patient agreeable to treatment plan. Екатерина Escalante APRN.CNP documented in this encounter [facility] 02-17-2025 Telephone encounter Note Prescription Refill Information The patient has been identified by name and date of : Yes Caregiver verified no other encounters exist for this prescription request: Yes Caregiver confirmed with patient/requestor that no other refills are due, in the near future, with this provider at this time: Yes The last office visit in the department: 08/26/24 Does the patient have a future office visit with this provider/department: Yes Requested Prescriptions Pending Prescriptions Disp Refills semaglutide (OZEMPIC) 2 mg/dose (8 mg/3 mL) pen injector 9 mL 3 Sig: Inject 2 mg subcutaneously one time a week. Arlin Saba February 17, 2025 1:18 PM [facility] 02-17-2025 Miscellaneous Notes Prescription Refill Information The patient has been identified by name and date of : Yes Caregiver verified no other encounters exist for this prescription request: Yes Caregiver confirmed with patient/requestor that no other refills are due, in the near future, with this provider at this time: Yes The last office visit in the department: 08/26/24 Does the patient have a future office visit with this provider/department: Yes Requested Prescriptions Pending Prescriptions Disp Refills semaglutide (OZEMPIC) 2 mg/dose (8 mg/3 mL) pen injector 9 mL 3 Sig: Inject 2 mg subcutaneously one time a week. Arlin Saba February 17, 2025 1:18 PM documented in this encounter [facility] 02-11-2025 Telephone encounter Note PA appeal was approved. Katie Reeves LPN [facility] 02-11-2025 Miscellaneous Notes PA appeal was approved. Katie Reeves LPN PA requested through [employer]. Received message PA previously denied. Appeal faxed to [employer]. Please watch for determination. Katie Reeves LPN documented in this encounter [facility] 02-05-2025 Note HNO ID: [id number] Author: ANDERSON MIMS, ? Service: ? Author Type: Physician Type: Progress Notes Filed: 02/05/2025 12:29 Note Text: Rod Cantu is a 79-year-old female with a history of hammer toe deformities, presenting for follow-up on callus formation and foot pain. Hammer Toe Deformities: - Rigid hammer toe deformities of the right second and third toes; semi-rigid deformity of the right fourth toe. - Rigid hammer toe deformities of the left second and third toes. - Previous arthroplasty of the fourth and fifth toes, with bone sections removed. - Previous tenotomy on the right second toe, which provided significant relief. - Denies pain in the right second toe. Callus Formation: - Pre-ulcerative callus on the tip of the right fourth toe, no ulcer present. - Callus formation has improved since December, with a crust coming off last night. - Using a gel pad to alleviate pressure on the toes. - Considering a flexor tenotomy for the right fourth toe to limit curling and reduce callus formation. Musculoskeletal: (-) right second toe pain Skin: (+) calluses bilateral toes Neurological: (+) decreased sensation bilateral feet PAST MEDICAL HISTORY Diagnosis Date Diabetes mellitus (HCC) Fibromyalgia Fuchs' corneal dystrophy Gastroesophageal reflux disease Glaucoma HTN (hypertension) Hypothyroidism Irritable bowel syndrome Migraines MAURICE (obstructive sleep apnea) does not use c-pap Osteoarthritis Plantar fasciitis PONV (postoperative nausea and vomiting) Pseudophakia PTSD (post-traumatic stress disorder) Restless leg syndrome Sleep apnea in adult TMJ (dislocation of temporomandibular joint) Current Outpatient Medications Medication Sig Dispense Refill gabapentin enacarbil (HORIZANT) 300 mg TbER Take 1 tablet TID. 270 tablet 1 pramipexole (MIRAPEX) 0.125 mg tablet Take 1 tablet at 2 PM, 1 tablet at dinnertime, 2 tablets at 9 pm, and 2 tablets at bedtime 540 tablet 1 omeprazole (PRILOSEC) 40 mg capsule Take 1 capsule by mouth two times a day. 180 capsule 1 atorvastatin (LIPITOR) 10 mg tablet Take 1 tablet by mouth once daily. 90 tablet 3 buPROPion SR (WELLBUTRIN SR) 150 mg 12 hr tablet Take 1 tablet by mouth once daily. 180 tablet 3 conjugated estrogens (PREMARIN) vaginal cream Use 0.5 g vaginally two times a week. 12 g 3 levothyroxine (SYNTHROID) 75 mcg tablet take 1 tablet by mouth once daily ON AN EMPTY STOMACH 90 tablet 3 valsartan (DIOVAN) 320 mg tablet Take 1 tablet by mouth once daily. 90 tablet 1 naproxen (NAPROSYN) 500 mg tablet Take 1 tablet by mouth two times a day as needed. Take with food. 30 tablet 0 montelukast (SINGULAIR) 10 mg tablet Take 1 tablet by mouth daily at bedtime. 90 tablet 3 nystatin (MYCOSTATIN) powder Apply 1 application to affected area four times daily. 30 g 1 semaglutide (OZEMPIC) 2 mg/dose (8 mg/3 mL) pen injector Inject 2 mg subcutaneously one time a week. 9 mL 3 fluticasone (FLONASE) 50 mcg/actuation nasal spray instill 2 sprays into each nostril once daily 3 Each 3 ketoconazole (NIZORAL) 2 % cream Apply to affected area once daily. Used for fungal skin fold rashes 30 g 3 LUMIGAN 0.01 % drop ophthalmic drops instill 1 drop into both eyes at bedtime 5 mL 11 fluorometholone (FML LIQUID FILM) 0.1 % ophthalmic suspension instill 1 drop into both eyes twice a day as directed fluorometholone (FML LIQUID FILM) 0.1 % ophthalmic suspension 1 Drop every 4 hours. Magnesium Oxide 500 mg tab Take 500 mg by mouth once daily. Taking in gummy form ubidecarenone (COENZYME Q10) 100 mg tab Take 200 mg by mouth once daily. simethicone (GAS-X ORAL) Take 125 mg by mouth twice daily. multivit,thx,calcium,iron,mins (MULTIVITAMIN AND MINERAL ORAL) Take 1 tablet by mouth once daily. vitamin K2 100 mcg cap Take 100 mcg by mouth. Zinc 50 mg tab Take 50 mg by mouth. amLODIPine (NORVASC) 2.5 mg tablet Take 2.5 mg by mouth once daily. metoprolol tartrate, short acting, (LOPRESSOR) 50 mg tablet Take 50 mg by mouth once daily. Bifidobacterium infantis (ALIGN ORAL) Take 1 tablet by mouth once daily. diclofenac sodium (VOLTAREN) 1 % topical gel Apply 2 g to affected area four times daily. 100 g 3 amoxicillin (POLYMOX, AMOXIL) 500 mg capsule Take 500 mg by mouth. Take 4 capsules 1 hour before dental procedures. ferrous sulfate EC 324 mg (65 mg iron) TbEC Take 324 mg by mouth once daily. Twice a day ascorbic acid, vitamin C, (VITAMIN C) 500 mg tablet Take 1 tablet by mouth twice daily with meals for 27 doses. 27 tablet 0 aspirin, enteric coated (ASPIRIN, ENTERIC COATED) 81 mg EC tablet Take 1 tablet by mouth twice daily for 28 days. 56 tablet 0 No current facility-administered medications for this visit. Family History Problem Relation Age of Onset Heart Mother Diabetes Mother Heart Father Stroke Father Cataract Paternal Grandfather Glaucoma Other Objective There were no vitals (more content not included)... [facility] 02-05-2025 History of Presen t illness Narrative Subjective Irma Cantu is a 79-year-old female with a history of hammer toe deformities, presenting for follow-up on callus formation and foot pain. Hammer Toe Deformities: - Rigid hammer toe deformities of the right second and third toes; semi-rigid deformity of the right fourth toe. - Rigid hammer toe deformities of the left second and third toes. - Previous arthroplasty of the fourth and fifth toes, with bone sections removed. - Previous tenotomy on the right second toe, which provided significant relief. - Denies pain in the right second toe. Callus Formation: - Pre-ulcerative callus on the tip of the right fourth toe, no ulcer present. - Callus formation has improved since December, with a crust coming off last night. - Using a gel pad to alleviate pressure on the toes. - Considering a flexor tenotomy for the right fourth toe to limit curling and reduce callus formation. Musculoskeletal: (-) right second toe pain Skin: (+) calluses bilateral toes Neurological: (+) decreased sensation bilateral feet PAST MEDICAL HISTORY Diagnosis Date Diabetes mellitus (HCC) Fibromyalgia Fuchs' corneal dystrophy Gastroesophageal reflux disease Glaucoma HTN (hypertension) Hypothyroidism Irritable bowel syndrome Migraines MAURICE (obstructive sleep apnea) does not use c-pap Osteoarthritis Plantar fasciitis PONV (postoperative nausea and vomiting) Pseudophakia PTSD (post-traumatic stress disorder) Restless leg syndrome Sleep apnea in adult TMJ (dislocation of temporomandibular joint) Current Outpatient Medications Medication Sig Dispense Refill gabapentin enacarbil (HORIZANT) 300 mg TbER Take 1 tablet TID. 270 tablet 1 pramipexole (MIRAPEX) 0.125 mg tablet Take 1 tablet at 2 PM, 1 tablet at dinnertime, 2 tablets at 9 pm, and 2 tablets at bedtime 540 tablet 1 omeprazole (PRILOSEC) 40 mg capsule Take 1 capsule by mouth two times a day. 180 capsule 1 atorvastatin (LIPITOR) 10 mg tablet Take 1 tablet by mouth once daily. 90 tablet 3 buPROPion SR (WELLBUTRIN SR) 150 mg 12 hr tablet Take 1 tablet by mouth once daily. 180 tablet 3 conjugated estrogens (PREMARIN) vaginal cream Use 0.5 g vaginally two times a week. 12 g 3 levothyroxine (SYNTHROID) 75 mcg tablet take 1 tablet by mouth once daily ON AN EMPTY STOMACH 90 tablet 3 valsartan (DIOVAN) 320 mg tablet Take 1 tablet by mouth once daily. 90 tablet 1 naproxen (NAPROSYN) 500 mg tablet Take 1 tablet by mouth two times a day as needed. Take with food. 30 tablet 0 montelukast (SINGULAIR) 10 mg tablet Take 1 tablet by mouth daily at bedtime. 90 tablet 3 nystatin (MYCOSTATIN) powder Apply 1 application to affected area four times daily. 30 g 1 semaglutide (OZEMPIC) 2 mg/dose (8 mg/3 mL) pen injector Inject 2 mg subcutaneously one time a week. 9 mL 3 fluticasone (FLONASE) 50 mcg/actuation nasal spray instill 2 sprays into each nostril once daily 3 Each 3 ketoconazole (NIZORAL) 2 % cream Apply to affected area once daily. Used for fungal skin fold rashes 30 g 3 LUMIGAN 0.01 % drop ophthalmic drops instill 1 drop into both eyes at bedtime 5 mL 11 fluorometholone (FML LIQUID FILM) 0.1 % ophthalmic suspension instill 1 drop into both eyes twice a day as directed fluorometholone (FML LIQUID FILM) 0.1 % ophthalmic suspension 1 Drop every 4 hours. Magnesium Oxide 500 mg tab Take 500 mg by mouth once daily. Taking in gummy form ubidecarenone (COENZYME Q10) 100 mg tab Take 200 mg by mouth once daily. simethicone (GAS-X ORAL) Take 125 mg by mouth twice daily. multivit,thx,calcium,iron,mins (MULTIVITAMIN AND MINERAL ORAL) Take 1 tablet by mouth once daily. vitamin K2 100 mcg cap Take 100 mcg by mouth. Zinc 50 mg tab Take 50 mg by mouth. amLODIPine (NORVASC) 2.5 mg tablet Take 2.5 mg by mouth once daily. metoprolol tartrate, short acting, (LOPRESSOR) 50 mg tablet Take 50 mg by mouth once daily. Bifidobacterium infantis (ALIGN ORAL) Take 1 tablet by mouth once daily. diclofenac sodium (VOLTAREN) 1 % topical gel Apply 2 g to affected area four times daily. 100 g 3 amoxicillin (POLYMOX, AMOXIL) 500 mg capsule Take 500 mg by mouth. Take 4 capsules 1 hour before dental procedures. ferrous sulfate EC 324 mg (65 mg iron) TbEC Take 324 mg by mouth once daily. Twice a day ascorbic acid, vitamin C, (VITAMIN C) 500 mg tablet Take 1 tablet by mouth twice daily with meals for 27 doses. 27 tablet 0 aspirin, enteric coated (ASPIRIN, ENTERIC COATED) 81 mg EC tablet Take 1 tablet by mouth twice daily for 28 days. 56 tablet 0 No current facility-administered medications for this visit. Family History Problem Relation Age of Onset Heart Mother Diabetes Mother Heart Father Stroke Father Cataract Paternal Grandfather Glaucoma Other Objective There were no vitals taken for this visit. - Cardiovascular: Dorsalis pedis and posterior tibial pulses palpable bilaterally; capillary refill time <5 seconds; skin temperature warm proximally and distally bilaterally; multiple varicosities noted bilaterally. - Skin: Small calluses noted along the plantar aspect of the right first metatarsal, right hallux, and tip of the right fourth toe; calluses noted on the tips of the lesser toes of the left foot. - Neurological: Diminished vibratory sensation bilaterally; protective sensation intact. - Musculoskeletal: - Right Foot: - Rigid hammer toe deformity of the second and third toes; semi-rigid hammer toe deformity of the fourth toe. - Left Foot: - Rigid hammer toe deformity of the second and third toes. Labs: Tests: (01/29) Noninvasive Vascular Studies: - Right dorsalis pedis index: 1.23 - Right posterior tibial index: 1.23 - Left dorsalis pedis index: 1.17 - Left posterior tibial index: 1.21 - Right toe pressure: 1.44 - Left toe pressure: 1.57 - Partial calcification noted; values considered normal Imaging: (12/23) Foot X-rays: - Evidence of arthroplasty of the right 4th and 5th toes - Curvature of the right 4th toe - Severe contracture of the left 2nd toe - Curvature of the left 3rd toe Assessment & Plan 1. Hammer toes of both feet (M20.41) - Rigid hammer toe deformity of the right second and third toes, semi-rigid hammer toe of the right fourth toe, and rigid hammer toes of the left second and third toes observed on examination. - Previous arthroplasty of the fourth and fifth toes noted on X-ray from December 23. - Discussed potential surgical options including flexor tenotomy for the right fourth toe to limit curling and reduce callus formation. - Patient advised on the benefits and limitations of the procedure, including the possibility of residual rigidity and transfer lesions. - Patient prefers to defer surgical intervention at this time due to personal commitments. - Recommended regular filing of calluses every 6 weeks or as needed to prevent ulceration. 2. Callus (L84) - Small calluses noted along the plantar aspect of the right first metatarsal, right hallux, and tip of the right fourth toe; calluses also present on the tips of the lesser toes of the left foot. - No current ulceration observed. - Advised continued use of gel pads to alleviate pressure and prevent further callus formation. - Patient instructed on the use of a pumice stone for regular callus management. - callus was reduced with dremmel 3. Diabetic polyneuropathy associated with type 2 diabetes mellitus (HCC) (E11.42) - Diminished vibratory sensation in both feet, but protective sensation remains intact. - Circulation studies from January 29 show normal dorsalis pedis and posterior tibial artery pressures bilaterally (Right: 1.23, Left: 1.17 and 1.21 respectively). - Toe pressures also within normal range (Right: 1.44, Left: 1.57), indicating adequate perfusion. - Advised continued monitoring of foot health to prevent complications. Follow-up in 6 weeks or sooner if problems arise Recording using [employer] software for draft documentation of the visit was discussed with the patient/authorized accounts payable representative; all questions welcomed and answered. Patient/authorized accounts payable representative agreed to proceed Anderson Mims DPM AMB ROOMING INTAKE FLOWSHEET DATA Patient presents with: Right 4th Toe - Hammer Toe, Established Patient, Follow Up Right Foot - Established Patient: Discuss PVR Left Foot - Established Patient: Discuss PVR Lashonda Cortes LPN documented in this encounter [facility] 02-04-2025 Instructions Anderson Mims - 02/04/2025 11:36 AM EDT - Continue wearing the gel hammer-toe pads you like to help reduce pressure on your toes. - File down the calluses at home about every 6 weeks (or sooner if they return) using a pumice stonel; you may also schedule an in-office callus debridement every 6 weeks as needed. - Watch your toes for any new redness, pain, or open sores; if you develop an ulcer or the callus becomes painful, call the office promptly. - When you re ready to discuss the flexor tenotomy procedure (cutting the tendon to help straighten the toe) or other surgical options, please contact us to set up that conversation. documented in this encounter [facility] 02-04-2025 Note HNO ID: [id number] Author: LASHONDA CORTES LPN Service: ? Author Type: LICENSED NURSE Type: Progress Notes Filed: 02/05/2025 12:29 Note Text: AMB ROOMING INTAKE FLOWSHEET DATA Patient presents with: Right 4th Toe - Hammer Toe, Established Patient, Follow Up Right Foot - Established Patient: Discuss PVR Left Foot - Established Patient: Discuss PVR Lashonda Cortes LPN [facility] 01-27-[address] - 01/27/2025 11:20 AM EDT Aim for 3 meals and no snacks Focus on small portions, mindful eating Add in 10 min exercise bike daily (more if tolerated) documented in this encounter [facility] 01-27-2025 Note Education (NUTRWS) KEMAL CANTU ([id number]) 1945 F Date Time Provider Department 01/27/25 11:00 AM RADHA HIGH Reason for Visit: Reassessment [674] Patient Education [91] Primary Visit Diagnosis:Class 3 severe obesity without serious comorbidity with body mass index (BMI) of 45.0 to 49.9 in adult, unspecified obesity type (HCC) [E66.813, Z68.42] Other Visit Diagnoses:Gastroesophageal reflux disease with esophagitis, unspecified whether hemorrhage [K21.00] Dietary counseling [Z71.3] Controlled type 2 diabetes mellitus without complication, without long-term current use of insulin (HCC) [E11.9] During your visit today, we recorded the following information about you: Weight Height 119.7 kg 1.702 m Allergies As of Date: 01/27/2025 Noted Allergy Reaction BACITRACIN (BULK) 02/07/2019 4 - Hives CODEINE 02/07/2019 16 - Unknown DUST MITES 01/23/2020 14 - Other: See Comments GENTAMICIN 11/30/2021 7 - Swelling Comments: redness of eye watery and itching MOLD 01/23/2020 16 - Unknown SULFA (SULFONAMIDE ANTIBIOTICS) 02/07/2019 14 - Other: See Comments Comments: redness SULFABENZAMIDE 11/30/2021 4 - Hives TREE POLLEN-RED MAPLE 02/16/2021 12 - Shortness of Breath Date Reviewed: 01/20/2025 Reviewed by: Hollie Blevins Jr., MD - Fully Assessed Prescriptions as of 01/27/2025 - gabapentin enacarbil (HORIZANT) 300 mg TbER Take 1 tablet TID. - pramipexole (MIRAPEX) 0.125 mg tablet Take 1 tablet at 2 PM, 1 tablet at dinnertime, 2 tablets at 9 pm, and 2 tablets at bedtime - omeprazole (PRILOSEC) 40 mg capsule Take 1 capsule by mouth two times a day. - atorvastatin (LIPITOR) 10 mg tablet Take 1 tablet by mouth once daily. - buPROPion SR (WELLBUTRIN SR) 150 mg 12 hr tablet Take 1 tablet by mouth once daily. - conjugated estrogens (PREMARIN) vaginal cream Use 0.5 g vaginally two times a week. - levothyroxine (SYNTHROID) 75 mcg tablet take 1 tablet by mouth once daily ON AN EMPTY STOMACH - valsartan (DIOVAN) 320 mg tablet Take 1 tablet by mouth once daily. - naproxen (NAPROSYN) 500 mg tablet Take 1 tablet by mouth two times a day as needed. Take with food. - montelukast (SINGULAIR) 10 mg tablet Take 1 tablet by mouth daily at bedtime. - nystatin (MYCOSTATIN) powder Apply 1 application to affected area four times daily. - semaglutide (OZEMPIC) 2 mg/dose (8 mg/3 mL) pen injector Inject 2 mg subcutaneously one time a week. - fluticasone (FLONASE) 50 mcg/actuation nasal spray instill 2 sprays into each nostril once daily - ketoconazole (NIZORAL) 2 % cream Apply to affected area once daily. Used for fungal skin fold rashes - LUMIGAN 0.01 % drop ophthalmic drops instill 1 drop into both eyes at bedtime - fluorometholone (FML LIQUID FILM) 0.1 % ophthalmic suspension instill 1 drop into both eyes twice a day as directed - fluorometholone (FML LIQUID FILM) 0.1 % ophthalmic suspension 1 Drop every 4 hours. - ascorbic acid, vitamin C, (VITAMIN C) 500 mg tablet Take 1 tablet by mouth twice daily with meals for 27 doses. - aspirin, enteric coated (ASPIRIN, ENTERIC COATED) 81 mg EC tablet Take 1 tablet by mouth twice daily for 28 days. - Magnesium Oxide 500 mg tab Take 500 mg by mouth once daily. Taking in gummy form - ubidecarenone (COENZYME Q10) 100 mg tab Take 200 mg by mouth once daily. - simethicone (GAS-X ORAL) Take 125 mg by mouth twice daily. - multivit,thx,calcium,iron,mins (MULTIVITAMIN AND MINERAL ORAL) Take 1 tablet by mouth once daily. - vitamin K2 100 mcg cap Take 100 mcg by mouth. - Zinc 50 mg tab Take 50 mg by mouth. - amLODIPine (NORVASC) 2.5 mg tablet Take 2.5 mg by mouth once daily. - metoprolol tartrate, short acting, (LOPRESSOR) 50 mg tablet Take 50 mg by mouth once daily. - Bifidobacterium infantis (ALIGN ORAL) Take 1 tablet by mouth once daily. - diclofenac sodium (VOLTAREN) 1 % topical gel Apply 2 g to affected area four times daily. - amoxicillin (POLYMOX, AMOXIL) 500 mg capsule Take 500 mg by mouth. Take 4 capsules 1 hour before dental procedures. - ferrous sulfate EC 324 mg (65 mg iron) TbEC Take 324 mg by mouth once daily. Twice a day Encounter Status:Closed by RADHA HIGH on 01/27/25 [facility] 01-27-2025 Note HNO ID: [id number] Author: RADHA HIGH RD Service: ? Author Type: Registered Dietitian Type: Progress Notes Filed: 01/27/2025 15:06 Note Text: 10:53 AM Nutritional Therapy Re-Assessment Nutrition Diagnosis: Overweight/obesity, related to, excess energy intake and physical inactivity, as evidenced by BMI above normative standard for age and gender RECOMMENDED MALNUTRITION DIAGNOSIS: NO MALNUTRITION IDENTIFIED NUTRITION CARE PLAN: Nutrition Intervention 01/27/2025: modify type and amount of food or beverage Aim for 3 meals and no snacks Focus on small portions, mindful eating Add in 10 min exercise bike daily (more if tolerated) Nutrition Monitoring AND Evaluation: half to one pound weight loss per week Need for Follow up: 4-6 weeks PROGRESS: Interval History: following as relates to class 3 obesity Body mass index is 41.35 kg/m?., GERD, DM controlled well. Has a period of flu, medication change, difficult time period.. Weight increased from last visit. Continues Ozempic for appetite control. Has been snacking more Limited exercise and activity, limited by hip pain. Nutrition Intervention 12/09/24 If not busy during the day, add exercise Continue small meals, make last 20-30 min; avoid snacks Include half plate veggies with meals Actions to implement interventions: Diet History: Breakfast - egg, [place] bar, Snack - no Lunch - sandwich or left overs, occ omelet; hashbrowns Snack - [place] bars, saltines Dinner - zucchini casserole , stuffed green peppers or egg salad ; cheese and crackers Snack - [place] bars Beverages - Water, diet soda, coffee, gingerale when sick Alcohol - no Vitamins/Supplements - occ Saltines when sick Activity: Activities of Daily Living: Active 25% of the day. 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 Resting Metabolic Rate: 1710 Malnutrition Screening Significant unintentional weight loss? No Eating less than 75% of usual intake for more than 2 weeks? No Potential Signs of Inflammation: no identifiable sources Nutritional status: Food Insecurity: No Food Insecurity (01/27/2025) Hunger Vital Sign Worried About Running Out of Food in the Last Year: Never true Ran Out of Food in the Last Year: Never true Education Materials Provided: None this visit READINESS TO LEARN Cognitive ability: Alert and oriented Motivation to learn: Interested Family support: Unable to assess - Family not present Instruction provided to: Patient Patient learns best by: Individual Instruction Factors affecting learning: None Physical limitations affecting learning: None Likelihood of Adherence: Moderate Referred/Supervised by: Noah CLEMENTS Billing Type: Re-assess 2 units 11:27 AM Total Time (mins): 34 SIGNATURE: Radha High RD PATIENT NAME: Kemal Cantu DATE: January 27, 2025 TIME: 11:00 AM [facility] 01-27-2025 History of Presen t illness Narrative 10:53 AM Nutritional Therapy Re-Assessment Nutrition Diagnosis: Overweight/obesity, related to, excess energy intake and physical inactivity, as evidenced by BMI above normative standard for age and gender RECOMMENDED MALNUTRITION DIAGNOSIS: NO MALNUTRITION IDENTIFIED NUTRITION CARE PLAN: Nutrition Intervention 01/27/2025: modify type and amount of food or beverage Aim for 3 meals and no snacks Focus on small portions, mindful eating Add in 10 min exercise bike daily (more if tolerated) Nutrition Monitoring & Evaluation: half to one pound weight loss per week Need for Follow up: 4-6 weeks PROGRESS: Interval History: following as relates to class 3 obesity Body mass index is 41.35 kg/m ., GERD, DM controlled well. Has a period of flu, medication change, difficult time period.. Weight increased from last visit. Continues Ozempic for appetite control. Has been snacking more Limited exercise and activity, limited by hip pain. Nutrition Intervention 12/09/24 If not busy during the day, add exercise Continue small meals, make last 20-30 min; avoid snacks Include half plate veggies with meals Actions to implement interventions: Diet History: Breakfast - egg, [place] bar, Snack - no Lunch - sandwich or left overs, occ omelet; hashbrowns Snack - [place] bars, saltines Dinner - zucchini casserole , stuffed green peppers or egg salad ; cheese and crackers Snack - [place] bars Beverages - Water, diet soda, coffee, gingerale when sick Alcohol - no Vitamins/Supplements - occ Saltines when sick Activity: Activities of Daily Living: Active 25% of the day. 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 Resting Metabolic Rate: 1710 Malnutrition Screening Significant unintentional weight loss? No Eating less than 75% of usual intake for more than 2 weeks? No Potential Signs of Inflammation: no identifiable sources Nutritional status: Food Insecurity: No Food Insecurity (01/27/2025) Hunger Vital Sign Worried About Running Out of Food in the Last Year: Never true Ran Out of Food in the Last Year: Never true Education Materials Provided: None this visit READINESS TO LEARN Cognitive ability: Alert and oriented Motivation to learn: Interested Family support: Unable to assess - Family not present Instruction provided to: Patient Patient learns best by: Individual Instruction Factors affecting learning: None Physical limitations affecting learning: None Likelihood of Adherence: Moderate Referred/Supervised by: Sammi/Sammi CLEMENTS Billing Type: Re-assess 2 units 11:27 AM Total Time (mins): 34 SIGNATURE: Radha High RD PATIENT NAME: Kemal Cantu DATE: January 27, 2025 TIME: 11:00 AM documented in this encounter [facility] 01-23-2025 Telephone encounter Note Patient returned call and given update below. States that she hopes to have the Horizant filled at [facility] today. Rosa Maria Jones RN [facility] 01-23-2025 Miscellaneous Notes Patient returned call and given update below. States that she hopes to have the Horizant filled at [facility] today. Rosa Maria Jones RN TC from [employer] who states PA appeal for Horizant has been approved from 01/23/2025-01/23/2026. Will be sending fax for patient records. PA approval #[id number] TC to patient to inform of such. No answer, unable to leave VM d/t message is full. LISSETTE Oneil TC received in office from [employer] stating they received the expedited appeal for Horizant. They have 48 hours left for determination and will call office once a decision has been reached. LISSETTE Oneil TC to appeals at [employer] to check on status of appeal. Appeal currently under acknowledgement, 01/27 due for determination. Explained patient is out of medication and accounts payable representative will send for expedited appeal, determination should be received in 72 hours. TC to patient who verbalized understanding of above. LISSETTE Oneil documented in this encounter [facility] 01-23-2025 Telephone encounter Note TC from [employer] who states PA appeal for Horizant has been approved from 01/23/2025-01/23/2026. Will be sending fax for patient records. PA approval #[id number] TC to patient to inform of such. No answer, unable to leave VM d/t message is full. LISSETTE Oneil [facility] 01-23-2025 Telephone encounter Note TC received in office from [employer] stating they received the expedited appeal for Horizant. They have 48 hours left for determination and will call office once a decision has been reached. LISSETTE Oneil [facility] 01-22-2025 Telephone encounter Note TC to appeals at [employer] to check on status of appeal. Appeal currently under acknowledgement, 01/27 due for determination. Explained patient is out of medication and accounts payable representative will send for expedited appeal, determination should be received in 72 hours. TC to patient who verbalized understanding of above. LISSETTE Oneil [facility] 01-20-2025 Telephone encounter Note PA requested through [employer]. Received message PA previously denied. Appeal faxed to [employer]. Please watch for determination. Katie Reeves LPN [facility] 01-20-2025 Note HNO ID: [id number] Author: HOLLIE BLEVINS JR, MD Service: ? Author Type: Physician Type: Progress Notes Filed: 01/20/2025 11:29 Note Text: ESTABLISHED PATIENT VISIT CHIEF COMPLAINT: Follow Up HISTORY OF PRESENT ILLNESS: Kemal Cantu is a 79 year old female, BMI 42.51 kg/m2 with a PMH significant for and per last office visit note with Gini Constantino CNP on 06/21/24: Rls (restless legs syndrome) (primary encounter diagnosis) Iron deficiency anemia, unspecified iron deficiency anemia type Vitamin d deficiency Kemal Cantu is a 78 year old female with RLS, MICHELLE, vit D deficiency She is satisfied with current med regimen for RLS, prefers not to try long-acting pramipexole We discussed potential for augmentation PLAN: --Continue meds Horizant 300 mg -- 1 tab at 2 PM and 2 tabs at 5 PM Pramipexole 0.125 mg -- 6 tabs daily -- 1 tab at 2 PM, 1 at dinner, 2 at 9 pm, and 2 at HS --We discussed Nidra by Noctrix for refractory RLS. She likes the idea, if her sxs worsen or she develops augmentation then she would like to proceed with it. --Labs to be done when she has blood draw for PCP, vit d and iron stores During interim, insurance denied Horizant after being on it for years. Switched to gabapentin ER resulting in multiple side effects. These include exhaustion, brain fog, feeling loopy, nausea and diarrhea and weight gain. All started after initiating gabapentin ER. Patient did go back to Horizant this weekend but only had enough for 2 tabs per day - mild RLS but much improved than when on gabapentin ER. States since back on Horizant side effects resolving. Failed Gabapentin, Gabapentin ER, and already on Mirapex (risk of augmentation and would not increase dose). Previously on Oxy for surgery and improved RLS but was loopy with significant cognitive impairment and could not focus. Also on Fe supplements. Latest Reference Range AND Units 05/25/20 09:37 03/19/21 11:10 08/18/21 13:24 05/19/22 12:15 05/15/23 16:01 08/20/24 08:40 Ferritin 14.7 - 205.1 ng/mL 84.1 78.2 35.4 47.4 54.3 51.2 REVIEW OF SYSTEMS GENERAL:No weight loss, malaise or fevers. HEENT:Negative for frequent or significant headaches, No changes in hearing or vision, no nose bleeds or other nasal problems NECK:Negative for lumps, goiter, pain and significant neck swelling RESPIRATORY: Negative for cough, wheezing or shortness of breath. CARDIOVASCULAR: Negative for chest pain, leg swelling or palpitations. GASTROINTESTINAL: Negative for abdominal discomfort, blood in stools or black stools or change in bowel habits GENITOURINARY: No history of dysuria, frequency or incontinence MUSCULOSKELETAL: Negative for joint pain or swelling, back pain or muscle pain. NEUROLOGIC: See HPI. LAB/IMAGING: Those performed since patient's last visit have been reviewed. WBC (k/uL) Date Value 08/20/2024 3.72 RBC (m/uL) Date Value 08/20/2024 4.72 Hemoglobin (g/dL) Date Value 08/20/2024 14.0 Hematocrit (%) Date Value 08/20/2024 43.3 MCV (fL) Date Value 08/20/2024 91.7 MCH (pg) Date Value 08/20/2024 29.7 MCHC (g/dL) Date Value 08/20/2024 32.3 RDW-CV (%) Date Value 08/20/2024 13.5 Platelet Count (k/uL) Date Value 08/20/2024 215 MPV (fL) Date Value 08/20/2024 9.6 Glucose (mg/dL) Date Value 08/20/2024 117 (H) BUN (mg/dL) Date Value 08/20/2024 13 Creatinine (mg/dL) Date Value 08/20/2024 0.90 Sodium (mmol/L) Date Value 08/20/2024 141 Potassium (mmol/L) Date Value 08/20/2024 4.6 Chloride (mmol/L) Date Value 08/20/2024 102 CO2 (mmol/L) Date Value 08/20/2024 28 Protein, Total (g/dL) Date Value 08/20/2024 6.6 Albumin (g/dL) Date Value 08/20/2024 4.0 Calcium, Total (mg/dL) Date Value 08/20/2024 9.7 Alkaline Phosphatase (U/L) Date Value 08/20/2024 92 Bilirubin, Total (mg/dL) Date Value 08/20/2024 0.5 AST (U/L) Date Value 08/20/2024 20 ALT (U/L) Date Value 08/20/2024 23 MEDICATIONS: omeprazole (PRILOSEC) 40 mg capsule Take 1 capsule by mouth two times a day. atorvastatin (LIPITOR) 10 mg tablet Take 1 tablet by mouth once daily. buPROPion SR (WELLBUTRIN SR) 150 mg 12 hr tablet Take 1 tablet by mouth once daily. conjugated estrogens (PREMARIN) vaginal cream Use 0.5 g vaginally two times a week. levothyroxine (SYNTHROID) 75 mcg tablet take 1 tablet by mouth once daily ON AN EMPTY STOMACH valsartan (DIOVAN) 320 mg tablet Take 1 tablet by mouth once daily. naproxen (NAPROSYN) 500 mg tablet Take 1 tablet by mouth two times a day as needed. Take with food. montelukast (SINGULAIR) 10 mg tablet Take 1 tablet by mouth daily at bedtime. pramipexole (MIRAPEX) 0.125 mg tablet Take 1 tablet at 2 PM, 1 tablet at dinnertime, 2 tablets at 9 pm, and 2 tablets at bedtime semaglutide (OZEMPIC) 2 mg/dose (8 mg/3 mL) pen injector Inject 2 mg subcutaneously one time a week. fluticasone (FLONASE) 50 mcg/actuation nasal spray instil (more content not included)... [facility] 01-20-2025 History of Presen t illness Narrative ESTABLISHED PATIENT VISIT CHIEF COMPLAINT: Follow Up HISTORY OF PRESENT ILLNESS: Kemal Cantu is a 79 year old female, BMI 42.51 kg/m2 with a PMH significant for and per last office visit note with Gini Constantino CNP on 06/21/24: Rls (restless legs syndrome) (primary encounter diagnosis) Iron deficiency anemia, unspecified iron deficiency anemia type Vitamin d deficiency Kemal Cantu is a 78 year old female with RLS, MICHELLE, vit D deficiency She is satisfied with current med regimen for RLS, prefers not to try long-acting pramipexole We discussed potential for augmentation PLAN: --Continue meds Horizant 300 mg -- 1 tab at 2 PM and 2 tabs at 5 PM Pramipexole 0.125 mg -- 6 tabs daily -- 1 tab at 2 PM, 1 at dinner, 2 at 9 pm, and 2 at HS --We discussed Nidra by Noctrix for refractory RLS. She likes the idea, if her sxs worsen or she develops augmentation then she would like to proceed with it. --Labs to be done when she has blood draw for PCP, vit d and iron stores During interim, insurance denied Horizant after being on it for years. Switched to gabapentin ER resulting in multiple side effects. These include exhaustion, brain fog, feeling loopy, nausea and diarrhea and weight gain. All started after initiating gabapentin ER. Patient did go back to Horizant this weekend but only had enough for 2 tabs per day - mild RLS but much improved than when on gabapentin ER. States since back on Horizant side effects resolving. Failed Gabapentin, Gabapentin ER, and already on Mirapex (risk of augmentation and would not increase dose). Previously on Oxy for surgery and improved RLS but was loopy with significant cognitive impairment and could not focus. Also on Fe supplements. Latest Reference Range & Units 05/25/20 09:37 03/19/21 11:10 08/18/21 13:24 05/19/22 12:15 05/15/23 16:01 08/20/24 08:40 Ferritin 14.7 - 205.1 ng/mL 84.1 78.2 35.4 47.4 54.3 51.2 REVIEW OF SYSTEMS GENERAL:No weight loss, malaise or fevers. HEENT:Negative for frequent or significant headaches, No changes in hearing or vision, no nose bleeds or other nasal problems NECK:Negative for lumps, goiter, pain and significant neck swelling RESPIRATORY: Negative for cough, wheezing or shortness of breath. CARDIOVASCULAR: Negative for chest pain, leg swelling or palpitations. GASTROINTESTINAL: Negative for abdominal discomfort, blood in stools or black stools or change in bowel habits GENITOURINARY: No history of dysuria, frequency or incontinence MUSCULOSKELETAL: Negative for joint pain or swelling, back pain or muscle pain. NEUROLOGIC: See HPI. LAB/IMAGING: Those performed since patient's last visit have been reviewed. WBC (k/uL) Date Value 08/20/2024 3.72 RBC (m/uL) Date Value 08/20/2024 4.72 Hemoglobin (g/dL) Date Value 08/20/2024 14.0 Hematocrit (%) Date Value 08/20/2024 43.3 MCV (fL) Date Value 08/20/2024 91.7 MCH (pg) Date Value 08/20/2024 29.7 MCHC (g/dL) Date Value 08/20/2024 32.3 RDW-CV (%) Date Value 08/20/2024 13.5 Platelet Count (k/uL) Date Value 08/20/2024 215 MPV (fL) Date Value 08/20/2024 9.6 Glucose (mg/dL) Date Value 08/20/2024 117 (H) BUN (mg/dL) Date Value 08/20/2024 13 Creatinine (mg/dL) Date Value 08/20/2024 0.90 Sodium (mmol/L) Date Value 08/20/2024 141 Potassium (mmol/L) Date Value 08/20/2024 4.6 Chloride (mmol/L) Date Value 08/20/2024 102 CO2 (mmol/L) Date Value 08/20/2024 28 Protein, Total (g/dL) Date Value 08/20/2024 6.6 Albumin (g/dL) Date Value 08/20/2024 4.0 Calcium, Total (mg/dL) Date Value 08/20/2024 9.7 Alkaline Phosphatase (U/L) Date Value 08/20/2024 92 Bilirubin, Total (mg/dL) Date Value 08/20/2024 0.5 AST (U/L) Date Value 08/20/2024 20 ALT (U/L) Date Value 08/20/2024 23 MEDICATIONS: omeprazole (PRILOSEC) 40 mg capsule Take 1 capsule by mouth two times a day. atorvastatin (LIPITOR) 10 mg tablet Take 1 tablet by mouth once daily. buPROPion SR (WELLBUTRIN SR) 150 mg 12 hr tablet Take 1 tablet by mouth once daily. conjugated estrogens (PREMARIN) vaginal cream Use 0.5 g vaginally two times a week. levothyroxine (SYNTHROID) 75 mcg tablet take 1 tablet by mouth once daily ON AN EMPTY STOMACH valsartan (DIOVAN) 320 mg tablet Take 1 tablet by mouth once daily. naproxen (NAPROSYN) 500 mg tablet Take 1 tablet by mouth two times a day as needed. Take with food. montelukast (SINGULAIR) 10 mg tablet Take 1 tablet by mouth daily at bedtime. pramipexole (MIRAPEX) 0.125 mg tablet Take 1 tablet at 2 PM, 1 tablet at dinnertime, 2 tablets at 9 pm, and 2 tablets at bedtime semaglutide (OZEMPIC) 2 mg/dose (8 mg/3 mL) pen injector Inject 2 mg subcutaneously one time a week. fluticasone (FLONASE) 50 mcg/actuation nasal spray instill 2 sprays into each nostril once daily ketoconazole (NIZORAL) 2 % cream Apply to affected area once daily. Used for fungal skin fold rashes LUMIGAN 0.01 % drop ophthalmic drops instill 1 drop into both eyes at bedtime fluorometholone (FML LIQUID FILM) 0.1 % ophthalmic suspension instill 1 drop into both eyes twice a day as directed fluorometholone (FML LIQUID FILM) 0.1 % ophthalmic suspension 1 Drop every 4 hours. ascorbic acid, vitamin C, (VITAMIN C) 500 mg tablet Take 1 tablet by mouth twice daily with meals for 27 doses. aspirin, enteric coated (ASPIRIN, ENTERIC COATED) 81 mg EC tablet Take 1 tablet by mouth twice daily for 28 days. Magnesium Oxide 500 mg tab Take 500 mg by mouth once daily. Taking in gummy form ubidecarenone (COENZYME Q10) 100 mg tab Take 200 mg by mouth once daily. simethicone (GAS-X ORAL) Take 125 mg by mouth twice daily. multivit,thx,calcium,iron,mins (MULTIVITAMIN AND MINERAL ORAL) Take 1 tablet by mouth once daily. vitamin K2 100 mcg cap Take 100 mcg by mouth. Zinc 50 mg tab Take 50 mg by mouth. amLODIPine (NORVASC) 2.5 mg tablet Take 2.5 mg by mouth once daily. metoprolol tartrate, short acting, (LOPRESSOR) 50 mg tablet Take 50 mg by mouth once daily. Bifidobacterium infantis (ALIGN ORAL) Take 1 tablet by mouth once daily. diclofenac sodium (VOLTAREN) 1 % topical gel Apply 2 g to affected area four times daily. amoxicillin (POLYMOX, AMOXIL) 500 mg capsule Take 500 mg by mouth. Take 4 capsules 1 hour before dental procedures. ferrous sulfate EC 324 mg (65 mg iron) TbEC Take 324 mg by mouth once daily. Twice a day gabapentin 300 mg Tb24 Take 1 tablet by mouth two times a day for 90 days. (Patient not taking: Reported on 01/20/2025) nystatin (MYCOSTATIN) powder Apply 1 application to affected area four times daily. HISTORIES PAST MEDICAL HISTORY Diagnosis Date Diabetes mellitus (HCC) Fibromyalgia Fuchs' corneal dystrophy Gastroesophageal reflux disease Glaucoma HTN (hypertension) Hypothyroidism Irritable bowel syndrome Migraines AMURICE (obstructive sleep apnea) does not use c-pap Osteoarthritis Plantar fasciitis PONV (postoperative nausea and vomiting) Pseudophakia PTSD (post-traumatic stress disorder) Restless leg syndrome Sleep apnea in adult TMJ (dislocation of temporomandibular joint) FAMILY HISTORY Problem Relation Age of Onset Heart Mother Diabetes Mother Heart Father Stroke Father Cataract Paternal Grandfather Glaucoma Other SOCIAL HISTORY Social History Tobacco Use Smoking status: Never Passive exposure: Past Smokeless tobacco: Never Tobacco comments: Second hand smoke (mother) Vaping Use Vaping status: Never Used Substance Use Topics Alcohol use: Yes Alcohol/week: 1.0 standard drink of alcohol Types: 1 Glasses of wine per week Comment: 3-4 glasses of wine per year Drug use: Never PHYSICAL EXAMINATION BP 138/82 (BP Site: Left Arm, BP Position: Sitting) Pulse 66 Resp 18 Wt 123.1 kg (271 lb 6.4 oz) SpO2 98% BMI 42.51 kg/m GENERAL EXAM: General appearance: NAD, pleasant. HEENT: NC/AT, nasal congestion absent, no oral lesions, membranes moist. NECK: ROM nml. Lungs: CTA bilaterally. CV: RRR nl S1, S2 Extr: No cyanosis, clubbing but trace pedal edema (not present - ? due to gabapentin ER). Skin: Cool to touch. NEUROLOGICAL EXAM: General: Awake, alert, oriented x3 (person,place,time), fluent, no dysarthria; comprehension, naming, repetition intact. CN: PERRL, EOMI and without nystagmus, VFF to confrontation, facial sensation and strength are normal and symmetric, hearing is intact to finger rub bilaterally, palate and tongue movements are intact and symmetric. SCM and trapezius strength normal. Motor: Normal tone, bulk and strength (5/5) bilaterally (throughout extremities x4). Coordination: FNF, JARAD, HTS intact. No tremors. Sensation: Light touch, vibration, temperature intact throughout. No evidence of neglect. Gait: Stable with normal stride and arm swing. Assessment and Plan: ASSESSMENT/PLAN: 1. RLS (restless legs syndrome) - ICD9: 333.94, ICD10: G25.81 Patient with long standing history of RLS. Well controlled despite need for both Horizant and Mirapex -- on Horizant for years. Now, insurance no longer covering Horizant resulting in change to Gabapentin ER - not controlling RLS and side effects as above. Note treating known Fe deficiency with supplement. When patient changed back to Horizant this weekend (had few tabs left), RLS improved and side effects began to resolve. Will gain request that insurance provide coverage for Horizant given side effects on previously tried meds and inability to control RLS. Prior auth will be completed. Await insurance response. Will continue Mirapex as above with Horizant restated at 300mg TID. Pt will contact us if she hears from pharmacy/insurance before we do. 2. Iron deficiency anemia, unspecified iron deficiency anemia type - ICD9: 280.9, ICD10: D50.9 As above. 3. MAURICE (obstructive sleep apnea) - ICD9: 327.23, ICD10: G47.33 4. Class 3 severe obesity with body mass index (BMI) of 40.0 to 44.9 in adult, unspecified obesity type, unspecified whether serious comorbidity present (HCC) - ICD9: 278.01, V85.41, ICD10: E66.813, Z68.41 Known history of MAURICE, but pt declining any form of therapy. Encouraged weight loss. Encouraged patient to sleep on side. No s/s of tiredness/sleepiness during the day when RLS controlled. D/w pt repeat PSG, but declines at this time. Pt feels sleep is good and restorative so long as RLS controlled. Hollie Blevins MD I spent a total of 30+ minutes on the date of the service which included preparing to see the patient, [id number] patient care, completing clinical documentation, obtaining and/or reviewing separately obtained history, performing a medically appropriate examination, counseling and educating the patient/family/caregiver, ordering medications, tests, or procedures, and communicating results to the patient/family/caregiver. PDMP website checked and validated. All prescriptions have been APPROPRIATELY filled. No suspicious activity was identified. 01/20/2025 by Hollie Blevins MD documented in this encounter [facility] 01-17-2025 Telephone encounter Note TC to Pt. Pt stated her insurance would not pay for her Horizant med any more and wanted to change to Gabapentin ER. Pt has been on for [address] Marino advised Pt to take her Gabapentin enacarbil (Horizant) Bid to get to her appt. on Monday. Carol Gregory LPN [facility] 01-17-2025 Miscellaneous Notes TC to Pt. Pt stated her insurance would not pay for her Horizant med any more and wanted to change to Gabapentin ER. Pt has been on for [address] Marino advised Pt to take her Gabapentin enacarbil (Horizant) Bid to get to her appt. on Monday. Carol Gregory LPN I have not seen patient in over a year. Please find out how much gabapentin she is taking. Uncertain we will be able to stop by time of appointment. Note that review of meds suggest other possible medications she is taking could be doing this including Mirapex. We will further discuss those at time of visit. Hollie Blevins MD Patient calls and states that she does not want to take Gabapentin anymore. Patient reports that the side effects are just too much for her to handle. Side effects include: Exhaustion Sleepiness Brain Fog Loss of Focus Shakiness Diarrhea Nausea Gained 4 pounds Does not help with Restless Legs Patient states that she does have an appointment with Dr. Blevins on Monday01/20/2025. Patient states that she wants to stop medication prior to this appointment because she has no life. Patient states that she read that she has to be weaned off of medication or she could go through withdrawal. Patient is asking for medication to be discontinued. Please review and advise, Nat Manriquez RN documented in this encounter [facility] 01-17-2025 Telephone encounter Note I have not seen patient in over a year. Please find out how much gabapentin she is taking. Uncertain we will be able to stop by time of appointment. Note that review of meds suggest other possible medications she is taking could be doing this including Mirapex. We will further discuss those at time of visit. Hollie Blevins MD [facility] Work Phone: 01-17-2025 Telephone encounter Note Patient calls and states that she does not want to take Gabapentin anymore. Patient reports that the side effects are just too much for her to handle. Side effects include: Exhaustion Sleepiness Brain Fog Loss of Focus Shakiness Diarrhea Nausea Gained 4 pounds Does not help with Restless Legs Patient states that she does have an appointment with Dr. Blevins on Monday01/20/2025. Patient states that she wants to stop medication prior to this appointment because she has no life. Patient states that she read that she has to be weaned off of medication or she could go through withdrawal. Patient is asking for medication to be discontinued. Please review and advise, Nat Manriquez RN [facility] 01-03-2025 Telephone encounter Note I rewrote for bid per pt request Altagracia Constantino APRN.CNP [facility] 01-03-2025 Miscellaneous Notes I rewrote for bid per pt request Altagracia Constantino APRN.CNP Patient calls back and states that she had talked to insurance and insurance had told her that if provider changes prescription to 60 tablets for 30 days then insurance would cover medication. This is taking the medication 1 pill twice a day. Please review and advise, Nat Manriquez RN CoverMyMeds stating PA has already submitted and is in process for this patient and drug.;CaseId:[id number];Status:In Process Request received on CoverMyMeds for Gabapentin. Prior authorization completed using [employer]: [id number] Please watch for determination. LISSETTE Oneil documented in this encounter [facility] 01-03-2025 Telephone encounter Note Patient calls back and states that she had talked to insurance and insurance had told her that if provider changes prescription to 60 tablets for 30 days then insurance would cover medication. This is taking the medication 1 pill twice a day. Please review and advise, Nat Manriquez RN [facility] 12-30-2024 Telephone encounter Note CoverMyMeds stating PA has already submitted and is in process for this patient and drug.;CaseId:[id number];Status:In Process [facility] 12-29-2024 Telephone encounter Note Request received on CoverMyMeds for Gabapentin. Prior authorization completed using [employer]: [id number] Please watch for determination. LISSETTE Oneil [facility] 12-27-2024 Telephone encounter Note TC to patient who is informed Rx sent as requested. LISSETTE Oneil [facility] 12-27-2024 Miscellaneous Notes TC to patient who is informed Rx sent as requested. LISSETTE Oneil I rewrote the Rx Altagracia Constantino APRN.CNP patient is calling in due the gabapentin rx that was sent to the pharmacy is not covered under insurance due to it is written for three times daily, insurance will only cover twice daily. patient is asking if a new rx for the gabapentin can be sent to [facility] for twice daily so insurance will cover medication. please review and advise patient would like called back with information documented in this encounter [facility] 12-27-2024 Telephone encounter Note I rewrote the Rx Altagracia Constantino APRN.BILL [facility] 12-27-2024 Telephone encounter Note patient is calling in due the gabapentin rx that was sent to the pharmacy is not covered under insurance due to it is written for three times daily, insurance will only cover twice daily. patient is asking if a new rx for the gabapentin can be sent to [facility] for twice daily so insurance will cover medication. please review and advise patient would like called back with information [facility] 12-26-2024 Telephone encounter Note Patient previously notified medication would be sent. Nothing further at this time. LISSETTE Oneil [facility] 12-26-2024 Miscellaneous Notes Patient previously notified medication would be sent. Nothing further at this time. LISSETTE Oneil Rx sent for the gabapentin ER 300 mg If not as effective as Horizant then we can appeal Altagracia Constantino APRN.CNP PDMP website checked and validated. All prescriptions have been APPROPRIATELY filled. No suspicious activity was identified. 12/26/2024 by Altagracia Constantino APRN.CNP Discussed with Amanuel Constantino and as patient has tried and failed Gabapentin in the past (see OV 11/29/[address] Blevins), however this was not the extended release form on insurance formulary. TC to patient and discussed above. Patient is agreeable to try the Gabapentin ER 300 mg tablets and is requesting this be sent to [facility]. Pended as such if provider agreeable. LISSETTE Oneil Please advise if wanting to switch to Gabapentin per patient request or move forward with appeal. Thank you. LISSETTE Oneil documented in this encounter [facility] 12-26-2024 Telephone encounter Note Rx sent for the gabapentin ER 300 mg If not as effective as Horizant then we can appeal Altagracia Constantino APRN.CNP PDMP website checked and validated. All prescriptions have been APPROPRIATELY filled. No suspicious activity was identified. 12/26/2024 by Altagracia Constantino APRN.CNP [facility] 12-26-2024 Telephone encounter Note Discussed with Amanuel Constantino and as patient has tried and failed Gabapentin in the past (see OV 11/29/[address] Blevins), however this was not the extended release form on insurance formulary. TC to patient and discussed above. Patient is agreeable to try the Gabapentin ER 300 mg tablets and is requesting this be sent to [facility]. Pended as such if provider agreeable. LISSETTE Oneil [facility] 12-25-2024 Telephone encounter Note Not sure if you had a chance to check this out. Katy [facility] 12-25-2024 Miscellaneous Notes Not sure if you had a chance to check this out. Katy Next appt 01/[address] Blevins for f/u. Pt calls back to report that insurance advised pt to try gabapentin ER 300 mg -whatever is equivalent to what pt was taking with Horizant. Pt reports in the past she had taken Neurontin and it did not work well. Pt reports at that time she was only on Neurontin. Rachael Espinosa LPN Attempted to do PA via cover my meds- PA was already submitted for this patient and drug which was denied.;CaseId:[id number];Status:D enied;Appeal Information: Attention:[place] . Alessia Mercado LPN Pt calling in and states her insurance doesn't want to cover her Horizant (Gabapentin Ecacarbil). When pt called insurance company, she was given the phone number noted below for prior authorization. She states Dr. Blevins's office needs to call that number. Prior Authorization Documentation Prior authorization requested for the following medication: Medication: Horizant (Gabapentin Ecacarbil) Provider: Dr. Hollie Blevins/Altagracia Constantino Below cards under scanned documents. Insurance Company Name: Medicare with [employer] Patient ID number: Medicare [id number] [employer] ID #: [id number] Pharmacy Name: [facility] Telephone number: [facility] Prior Authorization number: RxBin: [id number] RxPcn: RxGrp: Exlmdrx Life Skills Teacher number: [id number] [facility]: [id number] documented in this encounter [facility] 12-23-2024 Note HNO ID: [id number] Author: ANDERSON MIMS, ? Service: ? Author Type: Physician Type: Progress Notes Filed: 12/23/2024 22:21 Note Text: Rod Solis is a 79-year-old female with a history of diabetes mellitus, presenting for a diabetic foot examination and evaluation of a sore on the tip of the fourth toe. Diabetic Foot Examination: - Noticed a sore on the tip of the fourth toe approximately two months ago, which has gradually worsened. - Denies any home treatment for the sore. - Reports sharp, shooting pain in the tips of both great toes, described as like somebody's sticking a needle in. - Believes pain is due to banging the tips of the toes while walking. - Denies burning, tingling, or numbness in the feet. - Reports pain on both sides of the feet, attributed to arthritis. - History of toenail removal on the right great toe. - History of surgery to straighten the second and third toes via flexor tenotomy due to severe curvature. Diabetes Mellitus: - Diagnosed with diabetes mellitus for many years. - Reports excellent glycemic control since starting Ozempic, with a recent hemoglobin A1c of 5.2 in August 2024. - Previous hemoglobin A1c levels were in the 5% range for the past two years, but had reached 8% at one point. - Denies being on a blood thinner. Musculoskeletal: (+) bilateral foot pain Neurological: (-) numbness, (-) tingling, (-) burning, (+) sharp shooting pain in bilateral great toes Skin: (+) right fourth toe sore (2 months duration) PAST MEDICAL HISTORY Diagnosis Date Diabetes mellitus (HCC) Fibromyalgia Fuchs' corneal dystrophy Gastroesophageal reflux disease Glaucoma HTN (hypertension) Hypothyroidism Irritable bowel syndrome Migraines MAURICE (obstructive sleep apnea) does not use c-pap Osteoarthritis Plantar fasciitis PONV (postoperative nausea and vomiting) Pseudophakia PTSD (post-traumatic stress disorder) Restless leg syndrome Sleep apnea in adult TMJ (dislocation of temporomandibular joint) Current Outpatient Medications Medication Sig Dispense Refill omeprazole (PRILOSEC) 40 mg capsule Take 1 capsule by mouth two times a day. 180 capsule 1 atorvastatin (LIPITOR) 10 mg tablet Take 1 tablet by mouth once daily. 90 tablet 3 buPROPion SR (WELLBUTRIN SR) 150 mg 12 hr tablet Take 1 tablet by mouth once daily. 180 tablet 3 conjugated estrogens (PREMARIN) vaginal cream Use 0.5 g vaginally two times a week. 12 g 3 levothyroxine (SYNTHROID) 75 mcg tablet take 1 tablet by mouth once daily ON AN EMPTY STOMACH 90 tablet 3 valsartan (DIOVAN) 320 mg tablet Take 1 tablet by mouth once daily. 90 tablet 1 naproxen (NAPROSYN) 500 mg tablet Take 1 tablet by mouth two times a day as needed. Take with food. 30 tablet 0 montelukast (SINGULAIR) 10 mg tablet Take 1 tablet by mouth daily at bedtime. 90 tablet 3 gabapentin enacarbil (HORIZANT) 300 mg TbER Take 3 tablets by mouth once daily. Take one tablet at 2pm and two tablets at 5pm (Patient not taking: Reported on 12/23/2024) 270 tablet 1 pramipexole (MIRAPEX) 0.125 mg tablet Take 1 tablet at 2 PM, 1 tablet at dinnertime, 2 tablets at 9 pm, and 2 tablets at bedtime 540 tablet 1 nystatin (MYCOSTATIN) powder Apply 1 application to affected area four times daily. 30 g 1 semaglutide (OZEMPIC) 2 mg/dose (8 mg/3 mL) pen injector Inject 2 mg subcutaneously one time a week. 9 mL 3 fluticasone (FLONASE) 50 mcg/actuation nasal spray instill 2 sprays into each nostril once daily 3 Each 3 ketoconazole (NIZORAL) 2 % cream Apply to affected area once daily. Used for fungal skin fold rashes 30 g 3 LUMIGAN 0.01 % drop ophthalmic drops instill 1 drop into both eyes at bedtime 5 mL 11 fluorometholone (FML LIQUID FILM) 0.1 % ophthalmic suspension instill 1 drop into both eyes twice a day as directed fluorometholone (FML LIQUID FILM) 0.1 % ophthalmic suspension 1 Drop every 4 hours. ascorbic acid, vitamin C, (VITAMIN C) 500 mg tablet Take 1 tablet by mouth twice daily with meals for 27 doses. 27 tablet 0 aspirin, enteric coated (ASPIRIN, ENTERIC COATED) 81 mg EC tablet Take 1 tablet by mouth twice daily for 28 days. 56 tablet 0 Magnesium Oxide 500 mg tab Take 500 mg by mouth once daily. Taking in gummy form ubidecarenone (COENZYME Q10) 100 mg tab Take 200 mg by mouth once daily. simethicone (GAS-X ORAL) Take 125 mg by mouth twice daily. multivit,thx,calcium,iron,mins (MULTIVITAMIN AND MINERAL ORAL) Take 1 tablet by mouth once daily. vitamin K2 100 mcg cap Take 100 mcg by mouth. Zinc 50 mg tab Take 50 mg by mouth. amLODIPine (NORVASC) 2.5 mg tablet Take 2.5 mg by mouth once daily. metoprolol tartrate, short acting, (LOPRESSOR) 50 mg tablet Take 50 mg by mouth once daily. Bifidobacterium infantis (ALIGN ORAL) Take 1 tablet by mouth once daily. diclofenac sodium (VOLTAREN) 1 % topical gel Apply 2 g to affected area four times daily. 100 g 3 amoxicillin (POLYMOX (more content not included)... [facility] 12-23-2024 History of Presen t illness Narrative Rod Solis is a 79-year-old female with a history of diabetes mellitus, presenting for a diabetic foot examination and evaluation of a sore on the tip of the fourth toe. Diabetic Foot Examination: - Noticed a sore on the tip of the fourth toe approximately two months ago, which has gradually worsened. - Denies any home treatment for the sore. - Reports sharp, shooting pain in the tips of both great toes, described as like somebody's sticking a needle in. - Believes pain is due to banging the tips of the toes while walking. - Denies burning, tingling, or numbness in the feet. - Reports pain on both sides of the feet, attributed to arthritis. - History of toenail removal on the right great toe. - History of surgery to straighten the second and third toes via flexor tenotomy due to severe curvature. Diabetes Mellitus: - Diagnosed with diabetes mellitus for many years. - Reports excellent glycemic control since starting Ozempic, with a recent hemoglobin A1c of 5.2 in August 2024. - Previous hemoglobin A1c levels were in the 5% range for the past two years, but had reached 8% at one point. - Denies being on a blood thinner. Musculoskeletal: (+) bilateral foot pain Neurological: (-) numbness, (-) tingling, (-) burning, (+) sharp shooting pain in bilateral great toes Skin: (+) right fourth toe sore (2 months duration) PAST MEDICAL HISTORY Diagnosis Date Diabetes mellitus (HCC) Fibromyalgia Fuchs' corneal dystrophy Gastroesophageal reflux disease Glaucoma HTN (hypertension) Hypothyroidism Irritable bowel syndrome Migraines MAURICE (obstructive sleep apnea) does not use c-pap Osteoarthritis Plantar fasciitis PONV (postoperative nausea and vomiting) Pseudophakia PTSD (post-traumatic stress disorder) Restless leg syndrome Sleep apnea in adult TMJ (dislocation of temporomandibular joint) Current Outpatient Medications Medication Sig Dispense Refill omeprazole (PRILOSEC) 40 mg capsule Take 1 capsule by mouth two times a day. 180 capsule 1 atorvastatin (LIPITOR) 10 mg tablet Take 1 tablet by mouth once daily. 90 tablet 3 buPROPion SR (WELLBUTRIN SR) 150 mg 12 hr tablet Take 1 tablet by mouth once daily. 180 tablet 3 conjugated estrogens (PREMARIN) vaginal cream Use 0.5 g vaginally two times a week. 12 g 3 levothyroxine (SYNTHROID) 75 mcg tablet take 1 tablet by mouth once daily ON AN EMPTY STOMACH 90 tablet 3 valsartan (DIOVAN) 320 mg tablet Take 1 tablet by mouth once daily. 90 tablet 1 naproxen (NAPROSYN) 500 mg tablet Take 1 tablet by mouth two times a day as needed. Take with food. 30 tablet 0 montelukast (SINGULAIR) 10 mg tablet Take 1 tablet by mouth daily at bedtime. 90 tablet 3 gabapentin enacarbil (HORIZANT) 300 mg TbER Take 3 tablets by mouth once daily. Take one tablet at 2pm and two tablets at 5pm (Patient not taking: Reported on 12/23/2024) 270 tablet 1 pramipexole (MIRAPEX) 0.125 mg tablet Take 1 tablet at 2 PM, 1 tablet at dinnertime, 2 tablets at 9 pm, and 2 tablets at bedtime 540 tablet 1 nystatin (MYCOSTATIN) powder Apply 1 application to affected area four times daily. 30 g 1 semaglutide (OZEMPIC) 2 mg/dose (8 mg/3 mL) pen injector Inject 2 mg subcutaneously one time a week. 9 mL 3 fluticasone (FLONASE) 50 mcg/actuation nasal spray instill 2 sprays into each nostril once daily 3 Each 3 ketoconazole (NIZORAL) 2 % cream Apply to affected area once daily. Used for fungal skin fold rashes 30 g 3 LUMIGAN 0.01 % drop ophthalmic drops instill 1 drop into both eyes at bedtime 5 mL 11 fluorometholone (FML LIQUID FILM) 0.1 % ophthalmic suspension instill 1 drop into both eyes twice a day as directed fluorometholone (FML LIQUID FILM) 0.1 % ophthalmic suspension 1 Drop every 4 hours. ascorbic acid, vitamin C, (VITAMIN C) 500 mg tablet Take 1 tablet by mouth twice daily with meals for 27 doses. 27 tablet 0 aspirin, enteric coated (ASPIRIN, ENTERIC COATED) 81 mg EC tablet Take 1 tablet by mouth twice daily for 28 days. 56 tablet 0 Magnesium Oxide 500 mg tab Take 500 mg by mouth once daily. Taking in gummy form ubidecarenone (COENZYME Q10) 100 mg tab Take 200 mg by mouth once daily. simethicone (GAS-X ORAL) Take 125 mg by mouth twice daily. multivit,thx,calcium,iron,mins (MULTIVITAMIN AND MINERAL ORAL) Take 1 tablet by mouth once daily. vitamin K2 100 mcg cap Take 100 mcg by mouth. Zinc 50 mg tab Take 50 mg by mouth. amLODIPine (NORVASC) 2.5 mg tablet Take 2.5 mg by mouth once daily. metoprolol tartrate, short acting, (LOPRESSOR) 50 mg tablet Take 50 mg by mouth once daily. Bifidobacterium infantis (ALIGN ORAL) Take 1 tablet by mouth once daily. diclofenac sodium (VOLTAREN) 1 % topical gel Apply 2 g to affected area four times daily. 100 g 3 amoxicillin (POLYMOX, AMOXIL) 500 mg capsule Take 500 mg by mouth. Take 4 capsules 1 hour before dental procedures. ferrous sulfate EC 324 mg (65 mg iron) TbEC Take 324 mg by mouth once daily. Twice a day No current facility-administered medications for this visit. Family History Problem Relation Age of Onset Heart Mother Diabetes Mother Heart Father Stroke Father Cataract Paternal Grandfather Glaucoma Other Objective There were no vitals taken for this visit. - Cardiovascular: Dorsalis pedis pulses faint bilaterally; posterior tibial pulse faint on the right, palpable on the left; capillary refill <5 seconds; multiple varicose veins noted bilaterally at the ankles. - Skin: Skin temperature warm to cool bilaterally; hair growth diminished on both feet; slight callusing along the medial aspect of bilateral hallux; pre-ulcerative callus on the distal tip of the right fourth toe; no calluses on the lesser toes of the left foot; increased pressure noted along the plantar aspect of the left second toe. - Musculoskeletal: - Right Foot: - Hammer toes on lesser toes; most severe on the fourth toe, which is semi-reducible. - Subtle hammer toe residual (rigid) on the second and third toes post-surgery. - Left Foot: - Hammer toes on lesser toes; most severe on the second toe, which is rigid. - Third toe is semi-rigid; fourth toe is semi-reducible. - Dorsal spur along the mid-tarsal cuneiform. - Neurological: Sensation intact to light touch bilaterally; vibratory sensation diminished bilaterally. Labs: - (August 2024) Hemoglobin A1c: 5.2 Tests: - (2021) Ankle-Brachial Index with Toe Pressures: - Right SADE: 1.11 - Left SADE: 1.10 - Right Toe Pressure: 1.11 - Left Toe Pressure: 1.12 - Findings: Normal blood flow to both feet 1. Hammer toes of both feet (M20.41) 2. Callus (L84) - Examination reveals hammer toes in the second, third, fourth, and fifth toes of both feet, with the most severe deformity in the left second toe and the right fourth toe. - Noted pre-ulcerative callus on the distal tuft of the right fourth toe; no ulceration present. - Educated patient on the use of a hammer toe pad to alleviate pressure and prevent ulcer formation. Demonstrated proper application and cautioned against applying the pad too tightly. - Debrided callus on the right fourth toe with 15 blade and applied Neosporin and a Band-Aid. - Ordered bilateral foot X-rays to assess the extent of deformities and rule out underlying issues. - Discussed the option of a tenotomy for the right fourth toe if conservative measures fail; explained the procedure, recovery time, and necessity of adequate circulation before proceeding. - Will order a circulation study to ensure adequate blood flow before considering surgical intervention. - Patient understands and agrees with the treatment plan. 3. Diabetic polyneuropathy associated with type 2 diabetes mellitus (HCC) (E11.42) - Long-standing diabetes with recent hemoglobin A1c of 5.2. - Reports sharp, shooting pain in the tips of the big toes; no burning or tingling. - Sensory examination reveals intact sensation but diminished vibratory sensation in both feet. - Discussed the importance of regular foot care and monitoring for any changes or wounds. - Advised wearing supportive footwear to prevent further complications. 4. Diminished pulses in lower extremity (R09.89) - Vascular examination reveals faint dorsalis pedis pulses bilaterally and faint posterior tibial pulse on the right foot; left posterior tibial pulse is palpable. - Capillary refill time is less than 5 seconds; skin temperature is warm to cool bilaterally. - Ordered a circulation study to assess blood flow and ensure adequate perfusion before considering surgical intervention. Follow-up in 2 weeks to review testing and discuss options. Attestation Recording using [employer] software for draft documentation of the visit was discussed with the patient/authorized accounts payable representative; all questions welcomed and answered. Patient/authorized accounts payable representative agreed to proceed Anderson Mims DPM Per Dr. Mims Kemal right 4th toe sore was dressed with mupirocin and a band aid. Hammer toe crest pads were provided for bilateral feet. Patient was instructed/educated in its application, wear, and care. All questions were answered, and patient was able to demonstrate competence with the necessary skills to utilize the above equipment. Lashonda Cortes LPN AMB ROOMING INTAKE FLOWSHEET DATA Pain Pain Level: 8 Pain Location: Toe Description: Aching, Sharp Duration Amount of Time: 1.5 Duration Units: Months Frequency: Intermittent Intervention/Comfort measure: Reposition, Relaxation Patient presents with: Right 4th Toe - New, Pain, Diabetic Foot Ulcer Left Foot - New, Diabetic Foot Care Right Foot - New, Diabetic Foot Care Lashonda Cortes LPN documented in this encounter [facility] 12-23-2024 History of Presen t illness Narrative Radiology Service Progress Note PATIENT NAME: Kemal Cantu DATE OF SERVICE: December 23, 2024 TIME: 11:58 AM PATIENT IDENTITY VERIFICATION COMPLETED USING TWO (2) IDENTIFIERS: Name and Date of confirmed by patient verbally. FALL SCREENING: Has the patient had 2 falls in the last year or 1 fall with injury or currently using an Ambulatory Assistive Device (Walker, Cane, Wheelchair, Crutches, etc.)? No PATIENT GENDER DATA: Assigned female at . status: : No status: NO. PATIENT RELEVANT IMPLANT DATA REVIEWED: Yes PATIENT PRESENTS WITH AN IMPLANTABLE OR ATTACHED FRAME STRIPPER: No RADIOLOGY DEPARTMENT: General X-ray: Exam(s) Completed: Lower Extremity X-Ray(s): Foot, Bilateral PERIPHERAL IV DATA: Not applicable SIGNED BY: RT Enriuqe(Gini) December 23, 2024 11:58 AM documented in this encounter [facility] 12-23-2024 Note HNO ID: [id number] Author: WALT CHAMORRO RT(R) Service: ? Author Type: Administrative Assistant Data Entry Type: Progress Notes Filed: 12/23/2024 12:12 Note Text: Radiology Service Progress Note PATIENT NAME: Kemal Cantu DATE OF SERVICE: December 23, 2024 TIME: 11:58 AM PATIENT IDENTITY VERIFICATION COMPLETED USING TWO (2) IDENTIFIERS: Name and Date of confirmed by patient verbally. FALL SCREENING: Has the patient had 2 falls in the last year or 1 fall with injury or currently using an Ambulatory Assistive Device (Walker, Cane, Wheelchair, Crutches, etc.)? No PATIENT GENDER DATA: Assigned female at . status: : No status: NO. PATIENT RELEVANT IMPLANT DATA REVIEWED: Yes PATIENT PRESENTS WITH AN IMPLANTABLE OR ATTACHED FRAME STRIPPER: No RADIOLOGY DEPARTMENT: General X-ray: Exam(s) Completed: Lower Extremity X-Ray(s): Foot, Bilateral PERIPHERAL IV DATA: Not applicable SIGNED BY: RT Enrique(Gini) December 23, 2024 11:58 AM [facility] 12-23-2024 Note HNO ID: [id number] Author: LASHONDA CORTES LPN Service: ? Author Type: LICENSED NURSE Type: Progress Notes Filed: 12/23/2024 22:21 Note Text: Per Kemal Chavez right 4th toe sore was dressed with mupirocin and a band aid. Hammer toe crest pads were provided for bilateral feet. Patient was instructed/educated in its application, wear, and care. All questions were answered, and patient was able to demonstrate competence with the necessary skills to utilize the above equipment. Lashonda Cortes LPN [facility] 12-23-2024 Instructions Anderson Mims - 12/23/2024 11:35 AM EDT You have been provided with a hammer toe pad to help relieve pressure on the pre-ulcerative callus on your affected toe. Use the pad as directed; it is crescent-shaped and goes under the toe with a strap. Be careful not to pull the strap too tight. A small amount of Neosporin has been applied to the area, and a bandage was placed on your toe. Keep the area clean and dry. An x-ray of both feet has been ordered today so that we can further assess the hammer toes and surrounding structures. A circulation study (toe pressure test) has been ordered to check the blood flow in your feet. Continue wearing supportive shoes and consider avoiding overly tight footwear to reduce pressure on your toes. If you notice increased pain, worsening of the callus, or any signs of an ulcer (such as increased redness, swelling, or drainage), please contact our office promptly. Diabetes Foot Care Instructions When you have diabetes, proper foot care is very important. Poor foot care may lead to amputation of a foot or leg. As a person with diabetes, you are more vulnerable to foot problems, because diabetes can damage your nerves and reduce blood flow to your feet. Here are some diabetes foot care tips to follow: Wash and Dry Your Feet Daily Use mild soaps Use warm water Pat your skin dry; do not rub. Thoroughly dry your feet. After washing, use lotion on your feet to prevent cracking. Do not put lotion between your toes. Examine Your Feet Each Day Check the tops and bottoms of your feet. Have someone else look at your feet if you cannot see them. Check for dry, cracked skin. Look for blisters, cuts, scratches, or other sores. Check for redness, increased warmth, or tenderness when touching any area of your feet. Check for ingrown toenails, corns, and calluses. If you get a blister or sore from your shoes, do not pop it. Apply a bandage and wear a different pair of shoes. Take Care of Your Toenails Cut toenails after bathing, when they are soft. Cut toenails straight across and smooth with a nail file. Avoid cutting into the corners of toes. Do not cut cuticles. If you have neuropathy (or decreased sensation in your feet) a fabric worker should always cut your toenails. Be Careful When Exercising Walk and exercise in comfortable shoes. Do not exercise when you have open sores on your feet. Protect Your Feet With Shoes and Socks Never go barefoot. Always protect your feet by wearing shoes or hard-soled slippers or footwear. Avoid shoes with high heels and pointed toes. Avoid shoes that expose your toes or heels (such as open-toed shoes or sandals). These types of shoes increase your risk for injury and potential infections. Try on new footwear with the type of socks you usually wear. Do not wear new shoes for more than an hour at a time. Change your socks daily. Look and feel inside your shoes before putting them on to make sure there are no foreign objects or rough areas. Avoid tight socks. Wear natural-fiber socks (cotton, wool, or a cotton-wool blend). Wear special shoes if your health care provider recommends them. Wear shoes/boots that will protect your feet from various weather conditions (cold, moisture, etc.). Make sure your shoes fit properly. If you have neuropathy (nerve damage), you may not notice that your shoes are too tight. Perform the footwear test described below. Footwear Test Use this simple test to see if your shoes fit correctly: Stand on a piece of paper. (Make sure you are standing and not sitting, because your foot changes shape when you stand.) Trace the outline of your foot. Trace the outline of your shoe. Compare the tracings: Is the shoe too narrow? Is your foot crammed into the shoe? The shoe should be at least 1/2 inch longer than your longest toe and as wide as your foot. Proper Shoe Choices The following types of shoes are best for people with diabetes Closed toes and heels Leather uppers without a seam inside At least 1/2 inch extra space at the end of your longest toe Inside of shoe should be soft with no rough areas Outer sole should be made of stiff material Shoes should be at least as wide as your feet Tips for Foot Care in Diabetes Don't wait to treat a minor foot problem if you have diabetes. Follow your health care provider's guidelines and first aid guidelines. Report foot injuries and infections to your health care provider immediately. Check water temperature with your elbow, not your foot. Do not use a heating pad on your feet. Do not cross your legs. Do not self-treat your corns, calluses, or other foot problems. Go to your health care provider or fabric worker to treat these conditions. documented in this encounter [facility] 12-23-2024 Telephone encounter Note Next appt 01/[address] Blevins for f/u. [facility] 12-23-2024 Note HNO ID: [id number] Author: LASHONDA CORTES LPN Service: ? Author Type: LICENSED NURSE Type: Progress Notes Filed: 12/23/2024 22:21 Note Text: AMB ROOMING INTAKE FLOWSHEET DATA Pain Pain Level: 8 Pain Location: Toe Description: Aching, Sharp Duration Amount of Time: 1.5 Duration Units: Months Frequency: Intermittent Intervention/Comfort measure: Reposition, Relaxation Patient presents with: Right 4th Toe - New, Pain, Diabetic Foot Ulcer Left Foot - New, Diabetic Foot Care Right Foot - New, Diabetic Foot Care Lashonda Cortes LPN [facility] 12-13-2024 Telephone encounter Note Please advise if wanting to switch to Gabapentin per patient request or move forward with appeal. Thank you. LISSETTE Oneil [facility] 12-09-2024 Telephone encounter Note Pt calls back to report that insurance advised pt to try gabapentin ER 300 mg -whatever is equivalent to what pt was taking with Horizant. Pt reports in the past she had taken Neurontin and it did not work well. Pt reports at that time she was only on Neurontin. Rachael Espinosa LPN [facility] 12-09-2024 Note HNO ID: [id number] Author: RADHA HIGH RD Service: ? Author Type: Registered Dietitian Type: Progress Notes Filed: 12/09/2024 11:25 Note Text: 11:01 AM Nutritional Therapy Re-Assessment Nutrition Diagnosis: Overweight/obesity, related to, excess energy intake and physical inactivity, as evidenced by BMI above normative standard for age and gender RECOMMENDED MALNUTRITION DIAGNOSIS: NO MALNUTRITION IDENTIFIED NUTRITION CARE PLAN: Nutrition Intervention 12/09/2024: modify type and amount of food or beverage If not busy during the day, add exercise Continue small meals, make last 20-30 min; avoid snacks Include half plate veggies with meals Nutrition Monitoring AND Evaluation: half to one pound weight loss per week Need for Follow up: approx 6 weeks PROGRESS: Interval History: following as relates to class 3 obesity Body mass index is 41.44 kg/m?. GERD, DM - controlled well. Has been very busy but no regular exercise. Has been pacing in evening and at night to help sleep, had to stop a medication for sleep. Continues three regular meals, limited snacking. Continues Ozempic for portion control. Beverages calorie free and sugar free. Appears to have lost 8 lbs since last visit. Nutrition Intervention 10/29/23 Start doing short walks Discussion medication options with PCP Continue small meals, make last 20-30 min Apply mindful eating with snacks Actions to implement interventions: Active/busy Diet History: Breakfast - [place] bar and coffee Snack - no Lunch - pbj on croissant or bagel; chicken or egg salad; eggs; Snack - no Dinner - zuchini casserole; stuffed green peppers; Chinese toast Snack - chocolate Beverages - water, diet soda, coffee Alcohol - no Vitamins/Supplements - occ Activity: Activities of Daily Living: Active 50% of the day. 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 Resting Metabolic Rate: 1713 Malnutrition Screening Significant unintentional weight loss? No Eating less than 75% of usual intake for more than 2 weeks? No Potential Signs of Inflammation: no identifiable sources Nutritional status: Education Materials Provided: None this visit READINESS TO LEARN Cognitive ability: Alert and oriented Motivation to learn: Interested Family support: Unable to assess - Family not present Instruction provided to: Patient Patient learns best by: Individual Instruction Factors affecting learning: None Physical limitations affecting learning: None Likelihood of Adherence: Moderate Referred/Supervised by: Sammi/Sammi CLEMENTS Billing Type: Re-assess 1 unit 11:22 AM SIGNATURE: Radha High RD PATIENT NAME: Kemal Cantu DATE: December 09, 2024 TIME: 11:04 AM [facility] 12-09-2024 Note Education (NUTRSHAHAB) KEMAL CANTU ([id number]) 1945 F Date Time Provider Department 12/09/24 11:00 AM RADHA HIGH Reason for Visit: Reassessment [674] Patient Education [91] Primary Visit Diagnosis:Class 3 severe obesity without serious comorbidity with body mass index (BMI) of 45.0 to 49.9 in adult, unspecified obesity type [E66.813, Z68.42] Other Visit Diagnoses:Gastroesophageal reflux disease with esophagitis, unspecified whether hemorrhage [K21.00] Dietary counseling [Z71.3] Controlled type 2 diabetes mellitus without complication, without long-term current use of insulin (HCC) [E11.9] During your visit today, we recorded the following information about you: Weight Height 120 kg 1.702 m Allergies As of Date: 12/09/2024 Noted Allergy Reaction BACITRACIN (BULK) 02/07/2019 4 - Hives CODEINE 02/07/2019 16 - Unknown DUST MITES 01/23/2020 14 - Other: See Comments GENTAMICIN 11/30/2021 7 - Swelling Comments: redness of eye watery and itching MOLD 01/23/2020 16 - Unknown SULFA (SULFONAMIDE ANTIBIOTICS) 02/07/2019 14 - Other: See Comments Comments: redness SULFABENZAMIDE 11/30/2021 4 - Hives T[place]LLEN-RED MAPLE 02/16/2021 12 - Shortness of Breath Date Reviewed: 10/28/2024 Reviewed by: Radha High RD - Fully Assessed Prescriptions as of 12/09/2024 - omeprazole (PRILOSEC) 40 mg capsule Take 1 capsule by mouth two times a day. - atorvastatin (LIPITOR) 10 mg tablet Take 1 tablet by mouth once daily. - buPROPion SR (WELLBUTRIN SR) 150 mg 12 hr tablet Take 1 tablet by mouth once daily. - conjugated estrogens (PREMARIN) vaginal cream Use 0.5 g vaginally two times a week. - levothyroxine (SYNTHROID) 75 mcg tablet take 1 tablet by mouth once daily ON AN EMPTY STOMACH - valsartan (DIOVAN) 320 mg tablet Take 1 tablet by mouth once daily. - naproxen (NAPROSYN) 500 mg tablet Take 1 tablet by mouth two times a day as needed. Take with food. - montelukast (SINGULAIR) 10 mg tablet Take 1 tablet by mouth daily at bedtime. - gabapentin enacarbil (HORIZANT) 300 mg TbER Take 3 tablets by mouth once daily. Take one tablet at 2pm and two tablets at 5pm - pramipexole (MIRAPEX) 0.125 mg tablet Take 1 tablet at 2 PM, 1 tablet at dinnertime, 2 tablets at 9 pm, and 2 tablets at bedtime - nystatin (MYCOSTATIN) powder Apply 1 application to affected area four times daily. - semaglutide (OZEMPIC) 2 mg/dose (8 mg/3 mL) pen injector Inject 2 mg subcutaneously one time a week. - fluticasone (FLONASE) 50 mcg/actuation nasal spray instill 2 sprays into each nostril once daily - ketoconazole (NIZORAL) 2 % cream Apply to affected area once daily. Used for fungal skin fold rashes - LUMIGAN 0.01 % drop ophthalmic drops instill 1 drop into both eyes at bedtime - fluorometholone (FML LIQUID FILM) 0.1 % ophthalmic suspension instill 1 drop into both eyes twice a day as directed - fluorometholone (FML LIQUID FILM) 0.1 % ophthalmic suspension 1 Drop every 4 hours. - ascorbic acid, vitamin C, (VITAMIN C) 500 mg tablet Take 1 tablet by mouth twice daily with meals for 27 doses. - aspirin, enteric coated (ASPIRIN, ENTERIC COATED) 81 mg EC tablet Take 1 tablet by mouth twice daily for 28 days. - Magnesium Oxide 500 mg tab Take 500 mg by mouth once daily. Taking in gummy form - ubidecarenone (COENZYME Q10) 100 mg tab Take 200 mg by mouth once daily. - simethicone (GAS-X ORAL) Take 125 mg by mouth twice daily. - multivit,thx,calcium,iron,mins (MULTIVITAMIN AND MINERAL ORAL) Take 1 tablet by mouth once daily. - vitamin K2 100 mcg cap Take 100 mcg by mouth. - Zinc 50 mg tab Take 50 mg by mouth. - amLODIPine (NORVASC) 2.5 mg tablet Take 2.5 mg by mouth once daily. - metoprolol tartrate, short acting, (LOPRESSOR) 50 mg tablet Take 50 mg by mouth once daily. - Bifidobacterium infantis (ALIGN ORAL) Take 1 tablet by mouth once daily. - diclofenac sodium (VOLTAREN) 1 % topical gel Apply 2 g to affected area four times daily. - amoxicillin (POLYMOX, AMOXIL) 500 mg capsule Take 500 mg by mouth. Take 4 capsules 1 hour before dental procedures. - ferrous sulfate EC 324 mg (65 mg iron) TbEC Take 324 mg by mouth once daily. Twice a day Encounter Status:Closed by RADHA HIGH on 12/09/24 [facility] 12-02-2024 Telephone encounter Note Attempted to do PA via cover my meds- PA was already submitted for this patient and drug which was denied.;CaseId:[id number];Status:D enied;Appeal Information: Attention:[employer],[place], [place] . Alessia Mercado LPN [facility] 12-02-2024 Telephone encounter Note Please see TE dated 11/27/24. Alessia Mercado LPN [facility] 12-02-2024 Miscellaneous Notes Please see TE dated 11/27/24. Alessia Mercado LPN PA started via Epic. Alessia Mercado LPN Pt calls to report she went to [facility] to sampler pickup rx for Horizant 300 mg and was advised that insurance would not approve medication. Pt reports no other medications were provided on formulary. Pt is going to call insurance to see what insurance says about what is needed and will call back. Rachael Espinosa LPN documented in this encounter [facility] 11-27-2024 Telephone encounter Note Pt calling in and states her insurance doesn't want to cover her Horizant (Gabapentin Ecacarbil). When pt called insurance company, she was given the phone number noted below for prior authorization. She states Dr. Blevins's office needs to call that number. Prior Authorization Documentation Prior authorization requested for the following medication: Medication: Horizant (Gabapentin Ecacarbil) Provider: Dr. Hollie Blevins/Altagracia Constantino Below cards under scanned documents. Insurance Company Name: Medicare with [employer] Patient ID number: Medicare [id number] [employer] ID #: [id number] Pharmacy Name: [facility] Telephone number: [facility] Prior Authorization number: RxBin: [id number] RxPcn: RxGrp: [employer] Life Skills Teacher number: [phone] [facility]: [id number] [facility] 11-27-2024 Telephone encounter Note The patient has been identified by name and date of : Yes Caregiver verified no other encounters exist for this prescription request: Yes Caregiver confirmed with patient/requestor that no other refills are due, in the near future, with this provider at this time: Yes The last office visit in the department: 08/26/2024 Does the patient have a future office visit with this provider/department: Yes 02/24/2025 Requested Prescriptions Pending Prescriptions Disp Refills omeprazole (PRILOSEC) 40 mg capsule 180 capsule 1 Sig: Take 1 capsule by mouth two times a day. atorvastatin (LIPITOR) 10 mg tablet 90 tablet 3 Sig: Take 1 tablet by mouth once daily. Carol Barajas RN November 27, 2024 12:51 PM [facility] 11-27-2024 Miscellaneous Notes The patient has been identified by name and date of : Yes Caregiver verified no other encounters exist for this prescription request: Yes Caregiver confirmed with patient/requestor that no other refills are due, in the near future, with this provider at this time: Yes The last office visit in the department: 08/26/2024 Does the patient have a future office visit with this provider/department: Yes 02/24/2025 Requested Prescriptions Pending Prescriptions Disp Refills omeprazole (PRILOSEC) 40 mg capsule 180 capsule 1 Sig: Take 1 capsule by mouth two times a day. atorvastatin (LIPITOR) 10 mg tablet 90 tablet 3 Sig: Take 1 tablet by mouth once daily. Carol Barajas RN November 27, 2024 12:51 PM documented in this encounter [facility] 11-26-2024 Telephone encounter Note PA started via [employer]. Alessia Mercado LPN [facility] 11-25-2024 Telephone encounter Note Pt calls to report she went to [facility] to sampler pickup rx for Horizant 300 mg and was advised that insurance would not approve medication. Pt reports no other medications were provided on formulary. Pt is going to call insurance to see what insurance says about what is needed and will call back. Rachael Espinosa LPN [facility] 11-04-2024 Telephone encounter Note Prior Authorization History semaglutide (OZEMPIC) 2 mg/dose (8 mg/3 mL) pen injector Approval Details Authorized from October 05, 2024 to November 04, 2025 Information received electronically from payer Pharmacy notified. [facility] 11-04-2024 Miscellaneous Notes Prior Authorization History semaglutide (OZEMPIC) 2 mg/dose (8 mg/3 mL) pen injector Approval Details Authorized from October 05, 2024 to November 04, 2025 Information received electronically from payer Pharmacy notified. Covermymeds PA rec'd this was completed electronically. documented in this encounter [facility] 11-04-2024 Telephone encounter Note Covermymeds PA rec'd this was completed electronically. [facility] 10-28-[address] - 10/28/2024 11:25 AM EDT Start doing short walks Discussion medication options with PCP Continue small meals, make last 20-30 min Apply mindful eating with snacks. documented in this encounter [facility] 10-28-2024 Note Education (NUTRWS) KEMAL CANTU ([id number]) 1945 F Date Time Provider Department 10/28/24 11:00 AM RADHA HIGH NUTRWS Reason for Visit: Reassessment [674] Patient Education [91] Primary Visit Diagnosis:Class 3 severe obesity without serious comorbidity with body mass index (BMI) of 45.0 to 49.9 in adult, unspecified obesity type (HCC) [E66.813, E66.01, Z68.42] Other Visit Diagnoses:Gastroesophageal reflux disease with esophagitis, unspecified whether hemorrhage [K21.00] Dietary counseling [Z71.3] Type 2 diabetes mellitus with other specified complication, without long-term current use of insulin (HCC) [E11.69] During your visit today, we recorded the following information about you: Weight Height 123.6 kg 1.702 m Allergies As of Date: 10/28/2024 Noted Allergy Reaction BACITRACIN (BULK) 02/07/2019 4 - Hives CODEINE 02/07/2019 16 - Unknown DUST MITES 01/23/2020 14 - Other: See Comments GENTAMICIN 11/30/2021 7 - Swelling Comments: redness of eye watery and itching MOLD 01/23/2020 16 - Unknown SULFA (SULFONAMIDE ANTIBIOTICS) 02/07/2019 14 - Other: See Comments Comments: redness SULFABENZAMIDE 11/30/2021 4 - Hives TREE POLLEN-RED MAPLE 02/16/2021 12 - Shortness of Breath Date Reviewed: 10/28/2024 Reviewed by: Radha High RD - Fully Assessed Prescriptions as of 10/28/2024 - buPROPion SR (WELLBUTRIN SR) 150 mg 12 hr tablet Take 1 tablet by mouth once daily. - conjugated estrogens (PREMARIN) vaginal cream Use 0.5 g vaginally two times a week. - levothyroxine (SYNTHROID) 75 mcg tablet take 1 tablet by mouth once daily ON AN EMPTY STOMACH - valsartan (DIOVAN) 320 mg tablet Take 1 tablet by mouth once daily. - naproxen (NAPROSYN) 500 mg tablet Take 1 tablet by mouth two times a day as needed. Take with food. - montelukast (SINGULAIR) 10 mg tablet Take 1 tablet by mouth daily at bedtime. - gabapentin enacarbil (HORIZANT) 300 mg TbER Take 3 tablets by mouth once daily. Take one tablet at 2pm and two tablets at 5pm - pramipexole (MIRAPEX) 0.125 mg tablet Take 1 tablet at 2 PM, 1 tablet at dinnertime, 2 tablets at 9 pm, and 2 tablets at bedtime - nystatin (MYCOSTATIN) powder Apply 1 application to affected area four times daily. - semaglutide (OZEMPIC) 2 mg/dose (8 mg/3 mL) pen injector Inject 2 mg subcutaneously one time a week. - fluticasone (FLONASE) 50 mcg/actuation nasal spray instill 2 sprays into each nostril once daily - ketoconazole (NIZORAL) 2 % cream Apply to affected area once daily. Used for fungal skin fold rashes - LUMIGAN 0.01 % drop ophthalmic drops instill 1 drop into both eyes at bedtime - omeprazole (PRILOSEC) 40 mg capsule Take 1 capsule by mouth two times a day. - atorvastatin (LIPITOR) 10 mg tablet take 1 tablet by mouth once daily - fluorometholone (FML LIQUID FILM) 0.1 % ophthalmic suspension instill 1 drop into both eyes twice a day as directed - fluorometholone (FML LIQUID FILM) 0.1 % ophthalmic suspension 1 Drop every 4 hours. - ascorbic acid, vitamin C, (VITAMIN C) 500 mg tablet Take 1 tablet by mouth twice daily with meals for 27 doses. - aspirin, enteric coated (ASPIRIN, ENTERIC COATED) 81 mg EC tablet Take 1 tablet by mouth twice daily for 28 days. - Magnesium Oxide 500 mg tab Take 500 mg by mouth once daily. Taking in gummy form - ubidecarenone (COENZYME Q10) 100 mg tab Take 200 mg by mouth once daily. - simethicone (GAS-X ORAL) Take 125 mg by mouth twice daily. - multivit,thx,calcium,iron,mins (MULTIVITAMIN AND MINERAL ORAL) Take 1 tablet by mouth once daily. - vitamin K2 100 mcg cap Take 100 mcg by mouth. - Zinc 50 mg tab Take 50 mg by mouth. - amLODIPine (NORVASC) 2.5 mg tablet Take 2.5 mg by mouth once daily. - metoprolol tartrate, short acting, (LOPRESSOR) 50 mg tablet Take 50 mg by mouth once daily. - Bifidobacterium infantis (ALIGN ORAL) Take 1 tablet by mouth once daily. - diclofenac sodium (VOLTAREN) 1 % topical gel Apply 2 g to affected area four times daily. - amoxicillin (POLYMOX, AMOXIL) 500 mg capsule Take 500 mg by mouth. Take 4 capsules 1 hour before dental procedures. - ferrous sulfate EC 324 mg (65 mg iron) TbEC Take 324 mg by mouth once daily. Twice a day Encounter Status:Closed by RADHA HIGH on 10/28/24 [facility] 10-28-2024 Note HNO ID: [id number] Author: RADHA HIGH RD Service: ? Author Type: Registered Dietitian Type: Progress Notes Filed: 10/28/2024 12:06 Note Text: Nutritional Therapy Re-Assessment Nutrition Diagnosis: Overweight/obesity, related to, excess energy intake and physical inactivity, as evidenced by BMI above normative standard for age and gender RECOMMENDED MALNUTRITION DIAGNOSIS: NO MALNUTRITION IDENTIFIED NUTRITION CARE PLAN: Nutrition Intervention 10/28/2024: modify type and amount of food or beverage Start doing short walks Discussion medication options with PCP Continue small meals, make last 20-30 min Apply mindful eating with snacks. Nutrition Monitoring AND Evaluation: half to one pound weight loss per week Need for Follow up: appox 6 weeks PROGRESS: Interval History: following for weight loss with class 3 obesity Body mass index is 42.66 kg/m?. Has been sick and feeling down, not cooking . Has high fatigue but does feel is recovering. Diabetes controlled well. Lacking motivation for plan, has high cravings. Intake noted for 3 meals with snacking and grazing throughout the day. Tends towards high carbohydrate intake . No regular exercise but recovering from illness. 4 lbs lost since last visit. 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 Resting Metabolic Rate: 1748 Malnutrition Screening Significant unintentional weight loss? No Eating less than 75% of usual intake for more than 2 weeks? No Potential Signs of Inflammation: no identifiable sources Nutritional status: Education Materials Provided: None this visit READINESS TO LEARN Cognitive ability: Alert and oriented Motivation to learn: Interested Family support: Unable to assess - Family not present Instruction provided to: Patient Patient learns best by: Individual Instruction Factors affecting learning: None Physical limitations affecting learning: None Likelihood of Adherence: Moderate Referred/Supervised by: Noah CLEMENTS Billing Type: Re-assess/15 min 2 units SIGNATURE: Radha High RD PATIENT NAME: Kemal Cantu DATE: October 28, 2024 TIME: 11:01 AM [facility] 10-28-2024 History of Presen t illness Narrative Nutritional Therapy Re-Assessment Nutrition Diagnosis: Overweight/obesity, related to, excess energy intake and physical inactivity, as evidenced by BMI above normative standard for age and gender RECOMMENDED MALNUTRITION DIAGNOSIS: NO MALNUTRITION IDENTIFIED NUTRITION CARE PLAN: Nutrition Intervention 10/28/2024: modify type and amount of food or beverage Start doing short walks Discussion medication options with PCP Continue small meals, make last 20-30 min Apply mindful eating with snacks. Nutrition Monitoring & Evaluation: half to one pound weight loss per week Need for Follow up: appox 6 weeks PROGRESS: Interval History: following for weight loss with class 3 obesity Body mass index is 42.66 kg/m . Has been sick and feeling down, not cooking . Has high fatigue but does feel is recovering. Diabetes controlled well. Lacking motivation for plan, has high cravings. Intake noted for 3 meals with snacking and grazing throughout the day. Tends towards high carbohydrate intake . No regular exercise but recovering from illness. 4 lbs lost since last visit. 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 Resting Metabolic Rate: 1748 Malnutrition Screening Significant unintentional weight loss? No Eating less than 75% of usual intake for more than 2 weeks? No Potential Signs of Inflammation: no identifiable sources Nutritional status: Education Materials Provided: None this visit READINESS TO LEARN Cognitive ability: Alert and oriented Motivation to learn: Interested Family support: Unable to assess - Family not present Instruction provided to: Patient Patient learns best by: Individual Instruction Factors affecting learning: None Physical limitations affecting learning: None Likelihood of Adherence: Moderate Referred/Supervised by: Sammi/Sammi CLEMENTS Billing Type: Re-assess/15 min 2 units SIGNATURE: Radha High RD PATIENT NAME: Kemal Cantu DATE: October 28, 2024 TIME: 11:01 AM documented in this encounter [facility] 10-14-2024 Note HNO ID: [id number] Author: GEORGETTE BAUTISTA APRN.BILL Service: ? Author Type: Nurse Practitioner Type: Progress Notes Filed: 10/14/2024 11:14 Note Text: Subjective HPI HPI Kemal Cantu is a 79 year old female who presents today for CC of cough, congestion, fever. This started 6 days ago/worsening. Has tried otc medication. Symptoms are worsened by nothing. Risk factors. .Patient presents with: Cough: Cough and congestion x 6 days PAST MEDICAL HISTORY Diagnosis Date Diabetes mellitus (HCC) Fibromyalgia Fuchs' corneal dystrophy Gastroesophageal reflux disease Glaucoma HTN (hypertension) Hypothyroidism Irritable bowel syndrome Migraines MAURICE (obstructive sleep apnea) does not use c-pap Osteoarthritis Plantar fasciitis PONV (postoperative nausea and vomiting) Pseudophakia PTSD (post-traumatic stress disorder) Restless leg syndrome Sleep apnea in adult TMJ (dislocation of temporomandibular joint) PAST SURGICAL HISTORY Procedure Laterality Date CATARACT EXTRACTION W/ INTRAOCULAR LENS IMPLANT HX Bilateral 2016 COLONOSCOPY FLX DX W/COLLJ SPEC WHEN PFRMD 06/21/2021 CORNEAL TISSUE DSAEK/DMEK Left 09/30/2019 Dr. Clark ENDOTHELIAL KERATOPLASTY(DMEK) Right 04/17/2019 ENDOTHELIAL KERATOPLASTY/DSAEK Right 03/18/2019 ESOPHAGOGASTRODUODENOSCOPY TRANSORAL DIAGNOSTIC 06/21/2021 PAST SURGICAL HISTORY OF 1972 parathyroid adenoma surgery PAST SURGICAL HISTORY OF 1988 hysterectomy with prolapsed bladder repair PAST SURGICAL HISTORY OF 1992 abdominoplasty PAST SURGICAL HISTORY OF 1993 breast reduction PAST SURGICAL HISTORY OF 1979 deviated septum repair PAST SURGICAL HISTORY OF 1965 DANDC after miscarriage PAST SURGICAL HISTORY OF 2013 Total right knee repalcement PAST SURGICAL HISTORY OF 11/2013 total left knee replacement PAST SURGICAL HISTORY OF 2015 rectocele repair with vaginal mesh PAST SURGICAL HISTORY OF 11/01/2015 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 PAST SURGICAL HISTORY OF 2018 DMEK Corneal Transplant-Right eye PAST SURGICAL HISTORY OF Left 10/10/2019 INJECTION, ANTERIOR CHAMBER OF EYE; AIR PAST SURGICAL HISTORY OF Right 1997 cyst removal off right 4 toe PAST SURGICAL HISTORY OF hammer toe surgery PAST SURGICAL HISTORY OF 04/2022 Prolasped vagina PRQ CARDIAC STENT W/ANGIO 1 VSL 03/02/2021 90% blockage RCA SKIN LESION BIOPSY 10/2015 x2 face TOTAL HIP REPLACEMENT Right 03/15/2023 Right Total hip replacement YAG CAPSULOTOMY OD (RIGHT EYE) 2018 YAG CAPSULOTOMY OS (LEFT EYE) 2017 ALLERGIES Bacitracin (Bulk), Codeine, Dust Mites, Gentamicin, Mold, Sulfa (Sulfonamide Antibiotics), Sulfabenzamide, and Tree Pollen-Red Maple MEDICATIONS buPROPion SR (WELLBUTRIN SR) 150 mg 12 hr tablet Take 1 tablet by mouth once daily. conjugated estrogens (PREMARIN) vaginal cream Use 0.5 g vaginally two times a week. levothyroxine (SYNTHROID) 75 mcg tablet take 1 tablet by mouth once daily ON AN EMPTY STOMACH valsartan (DIOVAN) 320 mg tablet Take 1 tablet by mouth once daily. naproxen (NAPROSYN) 500 mg tablet Take 1 tablet by mouth two times a day as needed. Take with food. montelukast (SINGULAIR) 10 mg tablet Take 1 tablet by mouth daily at bedtime. gabapentin enacarbil (HORIZANT) 300 mg TbER Take 3 tablets by mouth once daily. Take one tablet at 2pm and two tablets at 5pm pramipexole (MIRAPEX) 0.125 mg tablet Take 1 tablet at 2 PM, 1 tablet at dinnertime, 2 tablets at 9 pm, and 2 tablets at bedtime nystatin (MYCOSTATIN) powder Apply 1 application to affected area four times daily. semaglutide (OZEMPIC) 2 mg/dose (8 mg/3 mL) pen injector Inject 2 mg subcutaneously one time a week. fluticasone (FLONASE) 50 mcg/actuation nasal spray instill 2 sprays into each nostril once daily ketoconazole (NIZORAL) 2 % cream Apply to affected area once daily. Used for fungal skin fold rashes LUMIGAN 0.01 % drop ophthalmic drops instill 1 drop into both eyes at bedtime omeprazole (PRILOSEC) 40 mg capsule Take 1 capsule by mouth two times a day. atorvastatin (LIPITOR) 10 mg tablet take 1 tablet by mouth once daily fluorometholone (FML LIQUID FILM) 0.1 % ophthalmic suspension instill 1 drop into both eyes twice a day as directed fluorometholone (FML LIQUID FILM) 0.1 % ophthalmic suspension 1 Drop every 4 hours. ascorbic acid, vitamin C, (VITAMIN C) 500 mg tablet Take 1 tablet by mouth twice daily with meals for 27 doses. aspirin, enteric coated (ASPIRIN, ENTERIC COATED) 81 mg EC tablet Take 1 tablet by mouth twice daily for 28 days. Magnesium Oxide 500 mg tab Take 500 mg by mouth once daily. Taking in gummy form ubidecarenone (COENZYME Q10) 100 mg tab Take 200 mg by mouth once daily. simethicone (GAS-X ORAL) Take 125 mg by mouth twice daily. multivit,thx,calcium,iron,mins (MULTIVITAMIN AND MINERAL ORAL) Take 1 tablet by mouth once daily. vitamin K2 100 mcg cap Take 100 mcg by mouth. Zinc 50 mg tab Take 50 mg by mouth. (more content not included)... [facility] 10-14-2024 History of Presen t illness Narrative Subjective HPI HPI Kemal Cantu is a 79 year old female who presents today for CC of cough, congestion, fever. This started 6 days ago/worsening. Has tried otc medication. Symptoms are worsened by nothing. Risk factors. .Patient presents with: Cough: Cough and congestion x 6 days PAST MEDICAL HISTORY Diagnosis Date Diabetes mellitus (HCC) Fibromyalgia Fuchs' corneal dystrophy Gastroesophageal reflux disease Glaucoma HTN (hypertension) Hypothyroidism Irritable bowel syndrome Migraines MAURICE (obstructive sleep apnea) does not use c-pap Osteoarthritis Plantar fasciitis PONV (postoperative nausea and vomiting) Pseudophakia PTSD (post-traumatic stress disorder) Restless leg syndrome Sleep apnea in adult TMJ (dislocation of temporomandibular joint) PAST SURGICAL HISTORY Procedure Laterality Date CATARACT EXTRACTION W/ INTRAOCULAR LENS IMPLANT HX Bilateral 2017 COLONOSCOPY FLX DX W/COLLJ SPEC WHEN PFRMD 06/21/2021 CORNEAL TISSUE DSAEK/DMEK Left 09/30/2019 Dr. Clark ENDOTHELIAL KERATOPLASTY(DMEK) Right 04/17/2019 ENDOTHELIAL KERATOPLASTY/DSAEK Right 03/18/2019 ESOPHAGOGASTRODUODENOSCOPY TRANSORAL DIAGNOSTIC 06/21/2021 PAST SURGICAL HISTORY OF 1972 parathyroid adenoma surgery PAST SURGICAL HISTORY OF 1988 hysterectomy with prolapsed bladder repair PAST SURGICAL HISTORY OF 1992 abdominoplasty PAST SURGICAL HISTORY OF 1993 breast reduction PAST SURGICAL HISTORY OF 1979 deviated septum repair PAST SURGICAL HISTORY OF 1965 D&C after miscarriage PAST SURGICAL HISTORY OF 2013 Total right knee repalcement PAST SURGICAL HISTORY OF 11/2013 total left knee replacement PAST SURGICAL HISTORY OF 2015 rectocele repair with vaginal mesh PAST SURGICAL HISTORY OF 11/01/2015 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 PAST SURGICAL HISTORY OF 2018 DMEK Corneal Transplant-Right eye PAST SURGICAL HISTORY OF Left 10/10/2019 INJECTION, ANTERIOR CHAMBER OF EYE; AIR PAST SURGICAL HISTORY OF Right 1996 cyst removal off right 4 toe PAST SURGICAL HISTORY OF hammer toe surgery PAST SURGICAL HISTORY OF 04/2022 Prolasped vagina PRQ CARDIAC STENT W/ANGIO 1 VSL 03/02/2021 90% blockage RCA SKIN LESION BIOPSY 10/2015 x2 face TOTAL HIP REPLACEMENT Right 03/15/2023 Right Total hip replacement YAG CAPSULOTOMY OD (RIGHT EYE) 2018 YAG CAPSULOTOMY OS (LEFT EYE) 2017 ALLERGIES Bacitracin (Bulk), Codeine, Dust Mites, Gentamicin, Mold, Sulfa (Sulfonamide Antibiotics), Sulfabenzamide, and Tree Pollen-Red Maple MEDICATIONS buPROPion SR (WELLBUTRIN SR) 150 mg 12 hr tablet Take 1 tablet by mouth once daily. conjugated estrogens (PREMARIN) vaginal cream Use 0.5 g vaginally two times a week. levothyroxine (SYNTHROID) 75 mcg tablet take 1 tablet by mouth once daily ON AN EMPTY STOMACH valsartan (DIOVAN) 320 mg tablet Take 1 tablet by mouth once daily. naproxen (NAPROSYN) 500 mg tablet Take 1 tablet by mouth two times a day as needed. Take with food. montelukast (SINGULAIR) 10 mg tablet Take 1 tablet by mouth daily at bedtime. gabapentin enacarbil (HORIZANT) 300 mg TbER Take 3 tablets by mouth once daily. Take one tablet at 2pm and two tablets at 5pm pramipexole (MIRAPEX) 0.125 mg tablet Take 1 tablet at 2 PM, 1 tablet at dinnertime, 2 tablets at 9 pm, and 2 tablets at bedtime nystatin (MYCOSTATIN) powder Apply 1 application to affected area four times daily. semaglutide (OZEMPIC) 2 mg/dose (8 mg/3 mL) pen injector Inject 2 mg subcutaneously one time a week. fluticasone (FLONASE) 50 mcg/actuation nasal spray instill 2 sprays into each nostril once daily ketoconazole (NIZORAL) 2 % cream Apply to affected area once daily. Used for fungal skin fold rashes LUMIGAN 0.01 % drop ophthalmic drops instill 1 drop into both eyes at bedtime omeprazole (PRILOSEC) 40 mg capsule Take 1 capsule by mouth two times a day. atorvastatin (LIPITOR) 10 mg tablet take 1 tablet by mouth once daily fluorometholone (FML LIQUID FILM) 0.1 % ophthalmic suspension instill 1 drop into both eyes twice a day as directed fluorometholone (FML LIQUID FILM) 0.1 % ophthalmic suspension 1 Drop every 4 hours. ascorbic acid, vitamin C, (VITAMIN C) 500 mg tablet Take 1 tablet by mouth twice daily with meals for 27 doses. aspirin, enteric coated (ASPIRIN, ENTERIC COATED) 81 mg EC tablet Take 1 tablet by mouth twice daily for 28 days. Magnesium Oxide 500 mg tab Take 500 mg by mouth once daily. Taking in gummy form ubidecarenone (COENZYME Q10) 100 mg tab Take 200 mg by mouth once daily. simethicone (GAS-X ORAL) Take 125 mg by mouth twice daily. multivit,thx,calcium,iron,mins (MULTIVITAMIN AND MINERAL ORAL) Take 1 tablet by mouth once daily. vitamin K2 100 mcg cap Take 100 mcg by mouth. Zinc 50 mg tab Take 50 mg by mouth. amLODIPine (NORVASC) 2.5 mg tablet Take 2.5 mg by mouth once daily. metoprolol tartrate, short acting, (LOPRESSOR) 50 mg tablet Take 50 mg by mouth once daily. Bifidobacterium infantis (ALIGN ORAL) Take 1 tablet by mouth once daily. diclofenac sodium (VOLTAREN) 1 % topical gel Apply 2 g to affected area four times daily. amoxicillin (POLYMOX, AMOXIL) 500 mg capsule Take 500 mg by mouth. Take 4 capsules 1 hour before dental procedures. ferrous sulfate EC 324 mg (65 mg iron) TbEC Take 324 mg by mouth once daily. Twice a day FAMILY HISTORY Problem Relation Age of Onset Heart Mother Diabetes Mother Heart Father Stroke Father Cataract Paternal Grandfather Glaucoma Other Social History Tobacco Use Smoking status: Never Passive exposure: Past Smokeless tobacco: Never Tobacco comments: Second hand smoke (mother) Vaping Use Vaping status: Never Used Substance Use Topics Alcohol use: Yes Alcohol/week: 1.0 standard drink of alcohol Types: 1 Glasses of wine per week Comment: 3-4 glasses of wine per year Drug use: Never Review of Systems Constitutional: Positive for fever. HENT: Positive for congestion, ear discharge and ear pain. Negative for nosebleeds and sore throat. Respiratory: Positive for cough and sputum production. Negative for shortness of breath and wheezing. Musculoskeletal: Negative for neck pain. Skin: Negative for itching and rash. Objective Blood pressure 158/84, pulse 68, temperature 36.4 C (97.5 F), temperature source Tympanic, resp. rate 18, weight 125.7 kg (277 lb 1.9 oz), SpO2 97%. Physical Exam Constitutional: General: She is not in acute distress. Appearance: She is not toxic-appearing or diaphoretic. HENT: Head: Normocephalic and atraumatic. Right Ear: Hearing, tympanic membrane, ear canal and external ear normal. Left Ear: Hearing, tympanic membrane, ear canal and external ear normal. Nose: Nose normal. Mouth/Throat: Pharynx: Uvula midline. No pharyngeal swelling, oropharyngeal exudate, posterior oropharyngeal erythema or uvula swelling. Eyes: General: Lids are normal. No scleral icterus. Right eye: No discharge. Left eye: No discharge. Conjunctiva/sclera: Conjunctivae normal. Pupils: Pupils are equal, round, and reactive to light. Neck: Trachea: Trachea normal. Cardiovascular: Rate and Rhythm: Normal rate and regular rhythm. Heart sounds: Normal heart sounds. Pulmonary: Effort: Pulmonary effort is normal. Breath sounds: Normal breath sounds. Musculoskeletal: Cervical back: Normal range of motion and neck supple. Lymphadenopathy: Cervical: No cervical adenopathy. Right cervical: No superficial cervical adenopathy. Left cervical: No superficial cervical adenopathy. Skin: Findings: No rash. Neurological: Mental Status: She is alert and oriented to person, place, and time. ASSESSMENT/PLAN: 1. Sinobronchitis - ICD9: 473.9, 490, ICD10: J32.9, J40 - Will begin treatment with as per antibiotic as written, see orders - Supportive care with plenty of fluids, rest, and analgesia prn. - Follow up in 3-5 days if symptoms persist or worsen. 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 Explore [facility] Keep snacks to 100-150 calories Continue regular exercise Discuss medication with provider documented in this encounter [facility] 09-09-2024 Note Education (NUTRWS) KEMAL CANTU ([id number]) 1945 F Date Time Provider Department 09/09/24 1:00 PM RADHA HIGH NUTRWS Reason for Visit: Reassessment [674] Patient Education [91] Primary Visit Diagnosis:Class 3 severe obesity without serious comorbidity with body mass index (BMI) of 45.0 to 49.9 in adult, unspecified obesity type (HCC) [E66.813, E66.01, Z68.42] Other Visit Diagnoses:Gastroesophageal reflux disease with esophagitis, unspecified whether hemorrhage [K21.00] Dietary counseling [Z71.3] Type 2 diabetes mellitus with other specified complication, without long-term current use of insulin (HCC) [E11.69] Weight loss counseling, encounter for [Z71.3] During your visit today, we recorded the following information about you: Weight Height 125.4 kg 1.702 m Allergies As of Date: 09/09/2024 Noted Allergy Reaction BACITRACIN (BULK) 02/07/2019 4 - Hives CODEINE 02/07/2019 16 - Unknown DUST MITES 01/23/2020 14 - Other: See Comments GENTAMICIN 11/30/2021 7 - Swelling Comments: redness of eye watery and itching MOLD 01/23/2020 16 - Unknown SULFA (SULFONAMIDE ANTIBIOTICS) 02/07/2019 14 - Other: See Comments Comments: redness SULFABENZAMIDE 11/30/2021 4 - Hives TREE POLLEN-RED MAPLE 02/16/2021 12 - Shortness of Breath Date Reviewed: 09/09/2024 Reviewed by: Radha High RD - Fully Assessed Prescriptions as of 10/28/2024 - buPROPion SR (WELLBUTRIN SR) 150 mg 12 hr tablet Take 1 tablet by mouth once daily. - conjugated estrogens (PREMARIN) vaginal cream Use 0.5 g vaginally two times a week. - levothyroxine (SYNTHROID) 75 mcg tablet take 1 tablet by mouth once daily ON AN EMPTY STOMACH - valsartan (DIOVAN) 320 mg tablet Take 1 tablet by mouth once daily. - naproxen (NAPROSYN) 500 mg tablet Take 1 tablet by mouth two times a day as needed. Take with food. - montelukast (SINGULAIR) 10 mg tablet Take 1 tablet by mouth daily at bedtime. - gabapentin enacarbil (HORIZANT) 300 mg TbER Take 3 tablets by mouth once daily. Take one tablet at 2pm and two tablets at 5pm - pramipexole (MIRAPEX) 0.125 mg tablet Take 1 tablet at 2 PM, 1 tablet at dinnertime, 2 tablets at 9 pm, and 2 tablets at bedtime - nystatin (MYCOSTATIN) powder Apply 1 application to affected area four times daily. - semaglutide (OZEMPIC) 2 mg/dose (8 mg/3 mL) pen injector Inject 2 mg subcutaneously one time a week. - fluticasone (FLONASE) 50 mcg/actuation nasal spray instill 2 sprays into each nostril once daily - ketoconazole (NIZORAL) 2 % cream Apply to affected area once daily. Used for fungal skin fold rashes - LUMIGAN 0.01 % drop ophthalmic drops instill 1 drop into both eyes at bedtime - omeprazole (PRILOSEC) 40 mg capsule Take 1 capsule by mouth two times a day. - atorvastatin (LIPITOR) 10 mg tablet take 1 tablet by mouth once daily - fluorometholone (FML LIQUID FILM) 0.1 % ophthalmic suspension instill 1 drop into both eyes twice a day as directed - fluorometholone (FML LIQUID FILM) 0.1 % ophthalmic suspension 1 Drop every 4 hours. - ascorbic acid, vitamin C, (VITAMIN C) 500 mg tablet Take 1 tablet by mouth twice daily with meals for 27 doses. - aspirin, enteric coated (ASPIRIN, ENTERIC COATED) 81 mg EC tablet Take 1 tablet by mouth twice daily for 28 days. - Magnesium Oxide 500 mg tab Take 500 mg by mouth once daily. Taking in gummy form - ubidecarenone (COENZYME Q10) 100 mg tab Take 200 mg by mouth once daily. - simethicone (GAS-X ORAL) Take 125 mg by mouth twice daily. - multivit,thx,calcium,iron,mins (MULTIVITAMIN AND MINERAL ORAL) Take 1 tablet by mouth once daily. - vitamin K2 100 mcg cap Take 100 mcg by mouth. - Zinc 50 mg tab Take 50 mg by mouth. - amLODIPine (NORVASC) 2.5 mg tablet Take 2.5 mg by mouth once daily. - metoprolol tartrate, short acting, (LOPRESSOR) 50 mg tablet Take 50 mg by mouth once daily. - Bifidobacterium infantis (ALIGN ORAL) Take 1 tablet by mouth once daily. - diclofenac sodium (VOLTAREN) 1 % topical gel Apply 2 g to affected area four times daily. - amoxicillin (POLYMOX, AMOXIL) 500 mg capsule Take 500 mg by mouth. Take 4 capsules 1 hour before dental procedures. - ferrous sulfate EC 324 mg (65 mg iron) TbEC Take 324 mg by mouth once daily. Twice a day Encounter Status:Closed by RADHA HIGH on 09/09/24 [facility] 09-09-2024 Note HNO ID: [id number] Author: RADHA HIGH RD Service: ? Author Type: Registered Dietitian Type: Progress Notes Filed: 10/28/2024 07:56 Note Text: Nutritional Therapy Re-Assessment Nutrition Diagnosis: Overweight/obesity, related to, excess energy intake and physical inactivity, as evidenced by BMI above normative standard for age and gender RECOMMENDED MALNUTRITION DIAGNOSIS: NO MALNUTRITION IDENTIFIED NUTRITION CARE PLAN: Nutrition Intervention 09/09/2024: modify type and amount of food or beverage Use smaller plates, bowls, etc. Explore [facility] Keep snacks to 100-150 calories Continue regular exercise Discuss medication with provider Nutrition Monitoring AND Evaluation: half pound weight loss per week Need for Follow up: 4-6 weeks PROGRESS: Interval History: Following as relates to class 3 obesity Body mass index is 43.29 kg/m?. And diabetes well controlled. Weight increased from last visit, likely from frequent celebrations and the holidays, limited motivation for a plan and has been snacking more. Is exercise 3-4 x per week, less than recommended. Nutrition Intervention 06/24/24 Continue small meals, make last 20-30 min Small portions of sweets when having Using handweights throughout the day Actions to implement interventions: Limited Diet History: Breakfast - yogurt or breakkfast bar Snack - eggs or other protein, egg salad Lunch - 3- egg salad sandwiches, turkey roll-ups, chicken salad, open faced sand if big bread Snack - yasso bar, chips, ariel bar, Dinner - casseroles, zuchini, stuffed peppers, chicken and biscuits, spaghetti with beef, more veggies Snack - yasso bar, chips, Fall asleep watching TV, wake up hungry; yogurt bars and smoothies Beverages - water, diet soda, coffee Alcohol - very rare Vitamins/Supplements - gummy vitamins Activity: Activities of Daily Living: varies Additional Activity: Lightly active (Light exercise: planned physical activity 1-3 days/week) Exercise bike every other day Anthropometrics: Height: Last Ht 09/09/24 : 170.2 cm (5' 7) Current weight: Last Wt 09/09/24 : 125.4 kg (276 lb 6.4 oz) Body mass index is 43.29 kg/m?. Resting Metabolic Rate: 1771 Malnutrition Screening Significant unintentional weight loss? No Eating less than 75% of usual intake for more than 2 weeks? No Potential Signs of Inflammation: no identifiable sources Nutritional status: Education Materials Provided: None this visit READINESS TO LEARN Cognitive ability: Alert and oriented Motivation to learn: Interested Family support: Unable to assess - Family not present Instruction provided to: Patient Patient learns best by: Individual Instruction Factors affecting learning: None Physical limitations affecting learning: None Likelihood of Adherence: Moderate Referred/Supervised by: Sammi/Sammi CLEMENTS Billing Type: Re-assess/15 min 2 units SIGNATURE: Radha High RD PATIENT NAME: Kemal Cantu DATE: September 09, 2024 TIME: 12:56 PM [facility] 09-09-2024 History of Presen t illness Narrative Nutritional Therapy Re-Assessment Nutrition Diagnosis: Overweight/obesity, related to, excess energy intake and physical inactivity, as evidenced by BMI above normative standard for age and gender RECOMMENDED MALNUTRITION DIAGNOSIS: NO MALNUTRITION IDENTIFIED NUTRITION CARE PLAN: Nutrition Intervention 09/09/2024: modify type and amount of food or beverage Use smaller plates, bowls, etc. Explore [facility] Keep snacks to 100-150 calories Continue regular exercise Discuss medication with provider Nutrition Monitoring & Evaluation: half pound weight loss per week Need for Follow up: 4-6 weeks PROGRESS: Interval History: Following as relates to class 3 obesity Body mass index is 43.29 kg/m . And diabetes well controlled. Weight increased from last visit, frequent celebrations and the holidays. Notes limited motivation for a plan. Has been snacking more. Is exercise 3-4 x per week. Nutrition Intervention 06/24/24 Continue small meals, make last 20-30 min Small portions of sweets when having Using handweights throughout the day Actions to implement interventions: Limited Diet History: Breakfast - yogurt or breakkfast bar Snack - eggs or other protein, egg salad Lunch - 3- egg salad sandwiches, turkey roll-ups, chicken salad, open faced sand if big bread Snack - yasso bar, chips, ariel bar, Dinner - casseroles, zuchini, stuffed peppers, chicken and biscuits, spaghetti with beef, more veggies Snack - yasso bar, chips, Fall asleep watching TV, wake up hungry; yogurt bars and smoothies Beverages - water, diet soda, coffee Alcohol - very rare Vitamins/Supplements - gummy vitamins Activity: Activities of Daily Living: varies Additional Activity: Lightly active (Light exercise: planned physical activity 1-3 days/week) Exercise bike every other day Anthropometrics: Height: Last Ht 09/09/24 : 170.2 cm (5' 7) Current weight: Last Wt 09/09/24 : 125.4 kg (276 lb 6.4 oz) Body mass index is 43.29 kg/m . Resting Metabolic Rate: 1771 Malnutrition Screening Significant unintentional weight loss? No Eating less than 75% of usual intake for more than 2 weeks? No Potential Signs of Inflammation: no identifiable sources Nutritional status: Education Materials Provided: None this visit READINESS TO LEARN Cognitive ability: Alert and oriented Motivation to learn: Interested Family support: Unable to assess - Family not present Instruction provided to: Patient Patient learns best by: Individual Instruction Factors affecting learning: None Physical limitations affecting learning: None Likelihood of Adherence: Moderate Referred/Supervised by: Sammi/Sammi CLEMENTS Billing Type: Re-assess/15 min 2 units SIGNATURE: Radha High RD PATIENT NAME: Kemal Cantu DATE: September 09, 2024 TIME: 12:56 PM documented in this encounter [facility] 08-26-2024 Note HNO ID: [id number] Author: ЕКАТЕРИНА ESCALANTE APRN.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 Author Type: Nurse Practitioner Type: Progress Notes Filed: 08/26/2024 15:49 Note Text: CC: Patient presents with: Recheck: 6 month follow up HPI Kemal Cantu is a 78 year old female who presents today for routine follow up. DIABETES MELLITUS: Ms. Cantu denies excessive thirst or increased frequency of urination, chest pain or dyspnea , numbness, tingling or pain in extremities, new or unusual visual symptoms, low sugar/hypoglycemic reactions, weight loss/gain, lightheadedness/dizziness, and bowel changes/loose stools. Follows a diabetic diet most of the time when it isn't the holiday season. She is compliant with medication(s) and is tolerating med(s) without any side effects. She reports checking her glucose on a infrequent to not at all basis schedule . Patient's last HgA1C was Hemoglobin A1C (%) Date Value 08/20/2024 5.2 02/13/2024 5.5 08/18/2021 6.6 05/18/2021 6.1 ) Last Ophthalmology exam was within the past 12 months HTN and HLD: Ms. Cantu denies headache, chest pain, palpitations, dyspnea, and peripheral edema. Patient denies any side effects of her medication(s) and is compliant with their regimen. She does not check BP's generally. Kemal denies regular aerobic exercise. She watches her diet for sodium, low fat and low cholesterol some of the time. Last 3 Encounter BP Readings: Date: BP: 08/26/2024 142/80 06/21/2024 138/76 02/21/2024 140/74 Levothyroxine: Taking medication as ordered. Denies abnormal change in energy or weight. Also concerned with right shoulder pain for the last month. Started after crocheting for almost 48 hours straight and is right handed. Is having difficulty extending above the shoulder line due to the pain. Pain in the shoulder is an ache and then turns sharp with extending her arm. The ache can radiate all the way into her wrist. Has been using diclofenac gel since the start which helps but has not gone away. Has taking the occasional advil which will resolve the pain for a few hours. Denies any traumatic injury, edema, redness, fever, numbness, or weakness. Also for the last week has had a right ear ache, sore throat, yellow with some red or black tinged nasal drainage, nonproductive cough, fatigue, low grade fever yesterday, diarrhea, headaches, Had amoxicillin for infected tooth which seemed to improve everything but now getting worse over the last few days. Denies chest pain, wheezing, shortness of breath, syncope, weakness, edema, or palpations. REVIEW OF SYSTEMS See HPI PAST MEDICAL HISTORY Diagnosis Date Diabetes mellitus (HCC) Fibromyalgia Fuchs' corneal dystrophy Gastroesophageal reflux disease Glaucoma HTN (hypertension) Hypothyroidism Irritable bowel syndrome Migraines MAURICE (obstructive sleep apnea) does not use c-pap Osteoarthritis Plantar fasciitis PONV (postoperative nausea and vomiting) Pseudophakia PTSD (post-traumatic stress disorder) Restless leg syndrome Sleep apnea in adult TMJ (dislocation of temporomandibular joint) PAST SURGICAL HISTORY Procedure Laterality Date CATARACT EXTRACTION W/ INTRAOCULAR LENS IMPLANT HX Bilateral 2017 COLONOSCOPY FLX DX W/COLLJ SPEC WHEN PFRMD 06/21/2021 CORNEAL TISSUE DSAEK/DMEK Left 09/30/2019 Dr. Clark ENDOTHELIAL KERATOPLASTY(DMEK) Right 04/17/2019 ENDOTHELIAL KERATOPLASTY/DSAEK Right 03/18/2019 ESOPHAGOGASTRODUODENOSCOPY TRANSORAL DIAGNOSTIC 06/21/2021 PAST SURGICAL HISTORY OF 1972 parathyroid adenoma surgery PAST SURGICAL HISTORY OF 1988 hysterectomy with prolapsed bladder repair PAST SURGICAL HISTORY OF 1992 abdominoplasty PAST SURGICAL HISTORY OF 1993 breast reduction PAST SURGICAL HISTORY OF 1979 deviated septum repair PAST SURGICAL HISTORY OF 1965 DANDC after miscarriage PAST SURGICAL HISTORY OF 2013 Total right knee repalcement PAST SURGICAL HISTORY OF 11/2013 total left knee replacement PAST SURGICAL HISTORY OF 2015 rectocele repair with vaginal mesh PAST SURGICAL HISTORY OF 11/01/2015 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 PAST SURGICAL HISTORY OF 2018 DMEK Corneal Transplant-Right eye PAST SURGICAL HISTORY OF Left 10/10/2019 INJECTION, ANTERIOR CHAMBER OF EYE; AIR PAST SURGICAL HISTORY OF Right 1996 cyst removal off right 4 toe PAST SURGICAL HISTORY OF hammer toe surgery PAST SURGICAL HISTORY OF 04/2022 Prolasped vagina PRQ CARDIAC STENT W/ANGIO 1 VSL 03/02/2021 90% blockage RCA SKIN LESION BIOPSY 10/2015 x2 face TOTAL HIP REPLACEMENT Right 03/15/2023 Right Total hip replacement YAG CAPSULOTOMY OD (RIGHT EYE) 2017 YAG CAPSULOTOMY OS (LEFT EYE) 2017 ALLERGIES Bacitracin (Bulk), Codeine, Dust Mites, Gentamicin, Mold, Sulfa (Sulfonamide Antibiotics), Sulfabenzamide, and Tree Pollen-Red Maple MEDICATIONS montelukast (SINGULAIR) 10 mg tablet Take 1 tablet by mouth daily at bedtime. gabapentin enacar (more content not included)... [facility] 08-26-2024 History of Presen t illness Narrative CC: Patient presents with: Recheck: 6 month follow up HPI Kemal Cantu is a 78 year old female who presents today for routine follow up. DIABETES MELLITUS: Ms. Cantu denies excessive thirst or increased frequency of urination, chest pain or dyspnea , numbness, tingling or pain in extremities, new or unusual visual symptoms, low sugar/hypoglycemic reactions, weight loss/gain, lightheadedness/dizziness, and bowel changes/loose stools. Follows a diabetic diet most of the time when it isn't the holiday season. She is compliant with medication(s) and is tolerating med(s) without any side effects. She reports checking her glucose on a infrequent to not at all basis schedule . Patient's last HgA1C was Hemoglobin A1C (%) Date Value 08/20/2024 5.2 02/13/2024 5.5 08/18/2021 6.6 05/18/2021 6.1 ) Last Ophthalmology exam was within the past 12 months HTN and HLD: Ms. Cantu denies headache, chest pain, palpitations, dyspnea, and peripheral edema. Patient denies any side effects of her medication(s) and is compliant with their regimen. She does not check BP's generally. Kemal denies regular aerobic exercise. She watches her diet for sodium, low fat and low cholesterol some of the time. Last 3 Encounter BP Readings: Date: BP: 08/26/2024 142/80 06/21/2024 138/76 02/21/2024 140/74 Levothyroxine: Taking medication as ordered. Denies abnormal change in energy or weight. Also concerned with right shoulder pain for the last month. Started after crocheting for almost 48 hours straight and is right handed. Is having difficulty extending above the shoulder line due to the pain. Pain in the shoulder is an ache and then turns sharp with extending her arm. The ache can radiate all the way into her wrist. Has been using diclofenac gel since the start which helps but has not gone away. Has taking the occasional advil which will resolve the pain for a few hours. Denies any traumatic injury, edema, redness, fever, numbness, or weakness. Also for the last week has had a right ear ache, sore throat, yellow with some red or black tinged nasal drainage, nonproductive cough, fatigue, low grade fever yesterday, diarrhea, headaches, Had amoxicillin for infected tooth which seemed to improve everything but now getting worse over the last few days. Denies chest pain, wheezing, shortness of breath, syncope, weakness, edema, or palpations. REVIEW OF SYSTEMS See HPI PAST MEDICAL HISTORY Diagnosis Date Diabetes mellitus (HCC) Fibromyalgia Fuchs' corneal dystrophy Gastroesophageal reflux disease Glaucoma HTN (hypertension) Hypothyroidism Irritable bowel syndrome Migraines MAURICE (obstructive sleep apnea) does not use c-pap Osteoarthritis Plantar fasciitis PONV (postoperative nausea and vomiting) Pseudophakia PTSD (post-traumatic stress disorder) Restless leg syndrome Sleep apnea in adult TMJ (dislocation of temporomandibular joint) PAST SURGICAL HISTORY Procedure Laterality Date CATARACT EXTRACTION W/ INTRAOCULAR LENS IMPLANT HX Bilateral 2016 COLONOSCOPY FLX DX W/COLLJ SPEC WHEN PFRMD 06/21/2021 CORNEAL TISSUE DSAEK/DMEK Left 09/30/2019 Dr. Clark ENDOTHELIAL KERATOPLASTY(DMEK) Right 04/17/2019 ENDOTHELIAL KERATOPLASTY/DSAEK Right 03/18/2019 ESOPHAGOGASTRODUODENOSCOPY TRANSORAL DIAGNOSTIC 06/21/2021 PAST SURGICAL HISTORY OF 1972 parathyroid adenoma surgery PAST SURGICAL HISTORY OF 1988 hysterectomy with prolapsed bladder repair PAST SURGICAL HISTORY OF 1992 abdominoplasty PAST SURGICAL HISTORY OF 1993 breast reduction PAST SURGICAL HISTORY OF 1979 deviated septum repair PAST SURGICAL HISTORY OF 1965 D&C after miscarriage PAST SURGICAL HISTORY OF 2013 Total right knee repalcement PAST SURGICAL HISTORY OF 11/2013 total left knee replacement PAST SURGICAL HISTORY OF 2015 rectocele repair with vaginal mesh PAST SURGICAL HISTORY OF 11/01/2015 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 PAST SURGICAL HISTORY OF 2018 DMEK Corneal Transplant-Right eye PAST SURGICAL HISTORY OF Left 10/10/2019 INJECTION, ANTERIOR CHAMBER OF EYE; AIR PAST SURGICAL HISTORY OF Right 1996 cyst removal off right 4 toe PAST SURGICAL HISTORY OF hammer toe surgery PAST SURGICAL HISTORY OF 04/2022 Prolasped vagina PRQ CARDIAC STENT W/ANGIO 1 VSL 03/02/2021 90% blockage RCA SKIN LESION BIOPSY 10/2015 x2 face TOTAL HIP REPLACEMENT Right 03/15/2023 Right Total hip replacement YAG CAPSULOTOMY OD (RIGHT EYE) 2018 YAG CAPSULOTOMY OS (LEFT EYE) 2018 ALLERGIES Bacitracin (Bulk), Codeine, Dust Mites, Gentamicin, Mold, Sulfa (Sulfonamide Antibiotics), Sulfabenzamide, and Tree Pollen-Red Maple MEDICATIONS montelukast (SINGULAIR) 10 mg tablet Take 1 tablet by mouth daily at bedtime. gabapentin enacarbil (HORIZANT) 300 mg TbER Take 3 tablets by mouth once daily. Take one tablet at 2pm and two tablets at 5pm pramipexole (MIRAPEX) 0.125 mg tablet Take 1 tablet at 2 PM, 1 tablet at dinnertime, 2 tablets at 9 pm, and 2 tablets at bedtime valsartan (DIOVAN) 320 mg tablet Take 1 tablet by mouth once daily. nystatin (MYCOSTATIN) powder Apply 1 application to affected area four times daily. semaglutide (OZEMPIC) 2 mg/dose (8 mg/3 mL) pen injector Inject 2 mg subcutaneously one time a week. fluticasone (FLONASE) 50 mcg/actuation nasal spray instill 2 sprays into each nostril once daily ketoconazole (NIZORAL) 2 % cream Apply to affected area once daily. Used for fungal skin fold rashes LUMIGAN 0.01 % drop ophthalmic drops instill 1 drop into both eyes at bedtime omeprazole (PRILOSEC) 40 mg capsule Take 1 capsule by mouth two times a day. atorvastatin (LIPITOR) 10 mg tablet take 1 tablet by mouth once daily levothyroxine (SYNTHROID) 75 mcg tablet take 1 tablet by mouth once daily on an empty stomach buPROPion SR (WELLBUTRIN SR) 150 mg 12 hr tablet take 1 tablet by mouth once daily fluorometholone (FML LIQUID FILM) 0.1 % ophthalmic suspension instill 1 drop into both eyes twice a day as directed fluorometholone (FML LIQUID FILM) 0.1 % ophthalmic suspension 1 Drop every 4 hours. ascorbic acid, vitamin C, (VITAMIN C) 500 mg tablet Take 1 tablet by mouth twice daily with meals for 27 doses. aspirin, enteric coated (ASPIRIN, ENTERIC COATED) 81 mg EC tablet Take 1 tablet by mouth twice daily for 28 days. Magnesium Oxide 500 mg tab Take 500 mg by mouth once daily. Taking in gummy form ubidecarenone (COENZYME Q10) 100 mg tab Take 200 mg by mouth once daily. simethicone (GAS-X ORAL) Take 125 mg by mouth twice daily. multivit,thx,calcium,iron,mins (MULTIVITAMIN AND MINERAL ORAL) Take 1 tablet by mouth once daily. vitamin K2 100 mcg cap Take 100 mcg by mouth. Zinc 50 mg tab Take 50 mg by mouth. amLODIPine (NORVASC) 2.5 mg tablet Take 2.5 mg by mouth once daily. conjugated estrogens (PREMARIN) vaginal cream Use 0.5 g vaginally two times a week. metoprolol tartrate, short acting, (LOPRESSOR) 50 mg tablet Take 50 mg by mouth once daily. Bifidobacterium infantis (ALIGN ORAL) Take 1 tablet by mouth once daily. diclofenac sodium (VOLTAREN) 1 % topical gel Apply 2 g to affected area four times daily. amoxicillin (POLYMOX, AMOXIL) 500 mg capsule Take 500 mg by mouth. Take 4 capsules 1 hour before dental procedures. ferrous sulfate EC 324 mg (65 mg iron) TbEC Take 324 mg by mouth once daily. Twice a day FAMILY HISTORY Problem Relation Age of Onset Heart Mother Diabetes Mother Heart Father Stroke Father Cataract Paternal Grandfather Glaucoma Other Social History Tobacco Use Smoking status: Never Passive exposure: Past Smokeless tobacco: Never Tobacco comments: Second hand smoke (mother) Vaping Use Vaping status: Never Used Substance Use Topics Alcohol use: Yes Alcohol/week: 1.0 standard drink of alcohol Types: 1 Glasses of wine per week Comment: 3-4 glasses of wine per year Drug use: Never PHYSICAL EXAM BP 142/80 Pulse 76 Resp 16 Wt 124.7 kg (275 lb) SpO2 97% BMI 43.07 kg/m General Appearance: well appearing, in no acute distress, alert Eyes: conjunctiva pink and moist, no icterus, sclera white, non-injected Ears: external ears normal to inspection and palpation, canals clear, Left tympanic membrane normal. , Right tympanic membrane normal Nose/sinus: Nares normal. Septum midline. Mucosa normal. No drainage., No sinus tenderness Neck: Thyroid normal size and symmetric without palpable nodules, Neck supple, No adenopathy Lymph nodes: No cervical lymphadenopathy and No supraclavicular lymphadenopathy Lungs: Lungs clear to auscultation. No wheezing, rhonchi, rales. Heart: RRR without murmur, gallop, or rubs. No ectopy Abdomen: Abdomen soft, non-tender. Bowel sounds normal. No masses, organomegaly Neck: Inspection: normal Palpation: non-tender ROM: full Musculoskeletal: Right shoulder: normal to inspection. tenderness with palpation of deltoid and biceps tendon. ROM: full but is painful with upward extension. Special tests: Drop arm: -, Empty Can: -, Infraspinatus: - but painful, Weeks:-, Neer - Upper extremities: reflexes: +2 to bilateral U/L extremities.. Muscle strength: 5/5 upper, bilaterally Extremities: No deformities, edema, skin discoloration, clubbing or cyanosis. Good capillary refill. Health maintenance reviewed with patient: BP Controlled (<130/80) Never done Diabetic Foot Exam due on 01/27/2024 Advance Directive Discussion due on 08/14/2024 Influenza Vaccine(1) due on 02/10/2025 Covid-19 Vaccine( season) due on 08/26/2025 Urine Albumin:Creatinine Ratio due on 02/12/2025 HbA1C due on 02/17/2025 Dilated Retinal Exam due on 05/16/2025 LDL Cholesterol due on 08/20/2025 Serum Creatinine due on 08/20/2025 Annual PCP Team Chronic Disease Visit due on 08/26/2025 DTaP,Tdap,Td Vaccine(3 - Td or Tdap) due on 01/28/2034 Bone Density Screening Completed RSV Vaccine Completed Shingrix Vaccine Completed Mammogram Screening Discontinued Colorectal Cancer Screening Discontinued Hepatitis C Screening Discontinued Pneumococcal Vaccine: 50+ Discontinued DATA REVIEWED: Most recent labs ASSESSMENT/PLAN: 1. Acute pain of right shoulder - ICD9: 719.41, ICD10: M25.511 (primary diagnosis) No traumatic injury, deltoid muscle tender and bursa tender. Naproxen as ordered. Stretching as ordered If no improvement would recommend xray, prednisone since glucose is well controlled and physical therapy. 2. Acute non-recurrent sinusitis, unspecified location - ICD9: 461.9, ICD10: J01.90 - Will begin treatment with as per antibiotic as written, see orders - Supportive care with plenty of fluids, rest, and analgesia prn. - Follow up in 3-5 days if symptoms persist or worsen. 3. Type 2 diabetes mellitus with other specified complication, without long-term current use of insulin (HCC) - ICD9: 250.80, ICD10: E11.69 - Controlled - Continue current medications - HEMOGLOBIN A1C - BASIC METABOLIC PANEL 4. Hypothyroidism, unspecified type - ICD9: 244.9, ICD10: E03.9 - Instructed patient on importance of taking on an empty stomach either first thing in the morning or at bedtime. - LEVOTHYROXINE 75 MCG TABLET - THYROID STIMULATING HORMONE 5. Mixed hyperlipidemia - ICD9: 272.2, ICD10: E78.2 - Controlled - Continue current medications - Counseled on healthy diet and regular exercise 6. Essential hypertension, benign - ICD9: 401.1, ICD10: I10 - Controlled - Continue current medications - Recommend home blood pressure monitoring, to bring results to next visit - Encouraged sodium restriction, DASH or Mediterranean diet - Recommend regular aerobic exercise - BASIC METABOLIC PANEL Prescription instructions reviewed with patient as applicable. Potential red flag symptoms discussed with the patient. Reviewed appropriate action plan to take if red flag symptoms occur. Patient agreeable to treatment plan. Екатерина Escalante APRN.CNP documented in this encounter [facility] 07-26-2024 Telephone encounter Note The patient has been identified by name and date of : Yes Caregiver verified no other encounters exist for this prescription request: Yes Caregiver confirmed with patient/requestor that no other refills are due, in the near future, with this provider at this time: Yes The last office visit in the department: 02/21/2024 Does the patient have a future office visit with this provider/department: Yes 08/26/24 Requested Prescriptions Pending Prescriptions Disp Refills montelukast (SINGULAIR) 10 mg tablet 90 tablet 3 Sig: Take 1 tablet by mouth daily at bedtime. Renee Dominguez LPN July 26, 2024 12:13 PM [facility] 07-26-2024 Miscellaneous Notes The patient has been identified by name and date of : Yes Caregiver verified no other encounters exist for this prescription request: Yes Caregiver confirmed with patient/requestor that no other refills are due, in the near future, with this provider at this time: Yes The last office visit in the department: 02/21/2024 Does the patient have a future office visit with this provider/department: Yes 08/26/24 Requested Prescriptions Pending Prescriptions Disp Refills montelukast (SINGULAIR) 10 mg tablet 90 tablet 3 Sig: Take 1 tablet by mouth daily at bedtime. Renee Dominguez LPN July 26, 2024 12:13 PM documented in this encounter [facility] 06-24-[address] - 06/24/2024 12:43 PM EST Continue small meals, make last 20-30 min Small portions of sweets when having Using handweights throughout the day documented in this encounter [facility] 06-24-2024 Note HNO ID: [id number] Author: RADHA HIGH RD Service: ? Author Type: Registered Dietitian Type: Progress Notes Filed: 06/24/2024 12:56 Note Text: Nutritional Therapy Re-Assessment Nutrition Diagnosis: Overweight/obesity, related to, excess energy intake and physical inactivity, as evidenced by BMI above normative standard for age and gender RECOMMENDED MALNUTRITION DIAGNOSIS: NO MALNUTRITION IDENTIFIED NUTRITION CARE PLAN: Nutrition Intervention 06/24/2024: modify type and amount of food or beverage Continue small meals, make last 20-30 min Small portions of sweets when having Using handweights throughout the day Nutrition Monitoring AND Evaluation: half to one pound weight loss per week Need for Follow up: ~6 weeks PROGRESS: Interval History: following as relates to class 3 obesity Body mass index is 42.21 kg/m?. DM good control. Continues Ozempic for appetite control. Weight stable from last visit. Intake includes 2-3 meals of generally healthy choices and mostly healthy snacks, has had halloween candy and cake related to birthday celebrations. No exercise and generally sedentary during the day, limited with current hip and back pain. Nutrition Intervention 05/13/24 When feeling OK try to get 10-15 min exercise Keep meals very small Only one snack in evening Actions to implement interventions: limited Diet History: Breakfast/Brunch - eggs, or other protein, egg salad Lunch - turkey roll up sandwich; Macedonian egg pancakes Snack - yasso bar Dinner - casserole, stir pinto, stuffed peppers Snack - yasso bar, popcorn Beverages - water, diet soda, coffee Alcohol - occ Vitamins/Supplements - gummy vitamins Activity: Activities of Daily Living: sedentary lately, back pain Additional Activity: Sedentary (Little or no exercise: <1x/week) stretching Using hand weights while sitting Anthropometrics: Height: Last Ht 06/24/24 : 170.2 cm (5' 7) Current weight: Last Wt 06/24/24 : 122.2 kg (269 lb 8 oz) Body mass index is 42.21 kg/m?. Resting Metabolic Rate: 1740 Malnutrition Screening Significant unintentional weight loss? No Eating less than 75% of usual intake for more than 2 weeks? No Potential Signs of Inflammation: no identifiable sources Nutritional status: Education Materials Provided: None this visit READINESS TO LEARN Cognitive ability: Alert and oriented Motivation to learn: Interested Family support: Unable to assess - Family not present Instruction provided to: Patient Patient learns best by: Individual Instruction Factors affecting learning: None Physical limitations affecting learning: None Likelihood of Adherence: Moderate Referred/Supervised by: Noah CLEMENTS Billing Type: Re-assess/15 min 2 units SIGNATURE: Radha High RD PATIENT NAME: Kemal Cantu DATE: June 24, 2024 TIME: 12:20 PM [facility] 06-24-2024 History of Presen t illness Narrative Nutritional Therapy Re-Assessment Nutrition Diagnosis: Overweight/obesity, related to, excess energy intake and physical inactivity, as evidenced by BMI above normative standard for age and gender RECOMMENDED MALNUTRITION DIAGNOSIS: NO MALNUTRITION IDENTIFIED NUTRITION CARE PLAN: Nutrition Intervention 06/24/2024: modify type and amount of food or beverage Continue small meals, make last 20-30 min Small portions of sweets when having Using handweights throughout the day Nutrition Monitoring & Evaluation: half to one pound weight loss per week Need for Follow up: ~6 weeks PROGRESS: Interval History: following as relates to class 3 obesity Body mass index is 42.21 kg/m . DM good control. Continues Ozempic for appetite control. Weight stable from last visit. Intake includes 2-3 meals of generally healthy choices and mostly healthy snacks, has had halloween candy and cake related to birthday celebrations. No exercise and generally sedentary during the day, limited with current hip and back pain. Nutrition Intervention 05/13/24 When feeling OK try to get 10-15 min exercise Keep meals very small Only one snack in evening Actions to implement interventions: limited Diet History: Breakfast/Brunch - eggs, or other protein, egg salad Lunch - turkey roll up sandwich; [place] egg pancakes Snack - yasso bar Dinner - casserole, stir pinto, stuffed peppers Snack - yasso bar, popcorn Beverages - water, diet soda, coffee Alcohol - occ Vitamins/Supplements - gummy vitamins Activity: Activities of Daily Living: sedentary lately, back pain Additional Activity: Sedentary (Little or no exercise: <1x/week) stretching Using hand weights while sitting Anthropometrics: Height: Last Ht 06/24/24 : 170.2 cm (5' 7) Current weight: Last Wt 06/24/24 : 122.2 kg (269 lb 8 oz) Body mass index is 42.21 kg/m . Resting Metabolic Rate: 1740 Malnutrition Screening Significant unintentional weight loss? No Eating less than 75% of usual intake for more than 2 weeks? No Potential Signs of Inflammation: no identifiable sources Nutritional status: Education Materials Provided: None this visit READINESS TO LEARN Cognitive ability: Alert and oriented Motivation to learn: Interested Family support: Unable to assess - Family not present Instruction provided to: Patient Patient learns best by: Individual Instruction Factors affecting learning: None Physical limitations affecting learning: None Likelihood of Adherence: Moderate Referred/Supervised by: Sammi/Sammi CLEMENTS Billing Type: Re-assess/15 min 2 units SIGNATURE: Radha High RD PATIENT NAME: Kemal Cantu DATE: June 24, 2024 TIME: 12:20 PM documented in this encounter [facility] 06-24-2024 Note Education (NUTRWS) KEMAL CANTU ([id number]) 1945 F Date Time Provider Department 06/24/24 12:15 PM RADHA HIGH Reason for Visit: Reassessment [674] Patient Education [91] Primary Visit Diagnosis:Class 3 severe obesity without serious comorbidity with body mass index (BMI) of 45.0 to 49.9 in adult, unspecified obesity type (HCC) [E66.813, E66.01, Z68.42] Other Visit Diagnoses:Gastroesophageal reflux disease with esophagitis, unspecified whether hemorrhage [K21.00] Dietary counseling [Z71.3] Type 2 diabetes mellitus with other specified complication, without long-term current use of insulin (HCC) [E11.69] During your visit today, we recorded the following information about you: Weight Height 122.2 kg 1.702 m Allergies As of Date: 06/24/2024 Noted Allergy Reaction BACITRACIN (BULK) 02/07/2019 4 - Hives CODEINE 02/07/2019 16 - Unknown DUST MITES 01/23/2020 14 - Other: See Comments GENTAMICIN 11/30/2021 7 - Swelling Comments: redness of eye watery and itching MOLD 01/23/2020 16 - Unknown SULFA (SULFONAMIDE ANTIBIOTICS) 02/07/2019 14 - Other: See Comments Comments: redness SULFABENZAMIDE 11/30/2021 4 - Hives TREE POLLEN-RED MAPLE 02/16/2021 12 - Shortness of Breath Date Reviewed: 06/24/2024 Reviewed by: Radha High RD - Fully Assessed Prescriptions as of 06/24/2024 - gabapentin enacarbil (HORIZANT) 300 mg TbER Take 3 tablets by mouth once daily. Take one tablet at 2pm and two tablets at 5pm - pramipexole (MIRAPEX) 0.125 mg tablet Take 1 tablet at 2 PM, 1 tablet at dinnertime, 2 tablets at 9 pm, and 2 tablets at bedtime - valsartan (DIOVAN) 320 mg tablet Take 1 tablet by mouth once daily. - nystatin (MYCOSTATIN) powder Apply 1 application to affected area four times daily. - semaglutide (OZEMPIC) 2 mg/dose (8 mg/3 mL) pen injector Inject 2 mg subcutaneously one time a week. - fluticasone (FLONASE) 50 mcg/actuation nasal spray instill 2 sprays into each nostril once daily - ketoconazole (NIZORAL) 2 % cream Apply to affected area once daily. Used for fungal skin fold rashes - LUMIGAN 0.01 % drop ophthalmic drops instill 1 drop into both eyes at bedtime - omeprazole (PRILOSEC) 40 mg capsule Take 1 capsule by mouth two times a day. - atorvastatin (LIPITOR) 10 mg tablet take 1 tablet by mouth once daily - levothyroxine (SYNTHROID) 75 mcg tablet take 1 tablet by mouth once daily on an empty stomach - buPROPion SR (WELLBUTRIN SR) 150 mg 12 hr tablet take 1 tablet by mouth once daily - montelukast (SINGULAIR) 10 mg tablet Take 1 tablet by mouth daily at bedtime. - fluorometholone (FML LIQUID FILM) 0.1 % ophthalmic suspension instill 1 drop into both eyes twice a day as directed - fluorometholone (FML LIQUID FILM) 0.1 % ophthalmic suspension 1 Drop every 4 hours. - ascorbic acid, vitamin C, (VITAMIN C) 500 mg tablet Take 1 tablet by mouth twice daily with meals for 27 doses. - aspirin, enteric coated (ASPIRIN, ENTERIC COATED) 81 mg EC tablet Take 1 tablet by mouth twice daily for 28 days. - Magnesium Oxide 500 mg tab Take 500 mg by mouth once daily. Taking in gummy form - ubidecarenone (COENZYME Q10) 100 mg tab Take 200 mg by mouth once daily. - simethicone (GAS-X ORAL) Take 125 mg by mouth twice daily. - multivit,thx,calcium,iron,mins (MULTIVITAMIN AND MINERAL ORAL) Take 1 tablet by mouth once daily. - vitamin K2 100 mcg cap Take 100 mcg by mouth. - Zinc 50 mg tab Take 50 mg by mouth. - amLODIPine (NORVASC) 2.5 mg tablet Take 2.5 mg by mouth once daily. - conjugated estrogens (PREMARIN) vaginal cream Use 0.5 g vaginally two times a week. - metoprolol tartrate, short acting, (LOPRESSOR) 50 mg tablet Take 50 mg by mouth once daily. - Bifidobacterium infantis (ALIGN ORAL) Take 1 tablet by mouth once daily. - diclofenac sodium (VOLTAREN) 1 % topical gel Apply 2 g to affected area four times daily. - amoxicillin (POLYMOX, AMOXIL) 500 mg capsule Take 500 mg by mouth. Take 4 capsules 1 hour before dental procedures. - ferrous sulfate EC 324 mg (65 mg iron) TbEC Take 324 mg by mouth once daily. Twice a day Encounter Status:Closed by RADHA HIGH on 06/24/24 [facility] 06-21-2024 History of Presen t illness Narrative Images from the original note were not included. [facility] Follow up/ Established patient visit Date of last visit : 12/18/2023 The following Impression/Plan was copied and pasted from the patient's [facility] visit on 12/18/23: ASSESSMENT/PLAN: 1. RLS (restless legs syndrome) - ICD9: 333.94, ICD10: G25.81 (primary diagnosis) 2. Iron deficiency - ICD9: 280.9, ICD10: E61.1 3. Vitamin D deficiency - ICD9: 268.9, ICD10: E55.9 Patient symptoms of RLS stable. However, besides taking Horizant twice daily (300-600mg as above), patient also taking Mirapex 0.125mg up to 6x daily. No s/s of augmentation or side effects. However, d/w patient that given manner in which taking Mirapex, she may better be treated by taking Mirapex ER at an equivalent dose of current IR dosing for the day, to be taken at the same time as taking first dose of Horizant. This might also reduce the risk of augmentation. Pt will consider but does not want to change dosing today. Will discuss again at next visit. 4. MAURICE (obstructive sleep apnea) - ICD9: 327.23, ICD10: G47.33 5. Class 3 severe obesity with body mass index (BMI) of 40.0 to 44.9 in adult, unspecified obesity type, unspecified whether serious comorbidity present (HCC) - ICD9: 278.01, V85.41, ICD10: E66.01, Z68.41 Known history of MAURICE, but pt declining any form of therapy. Encouraged weight loss. Encouraged patient to sleep on side. No s/s of tiredness/sleepiness during the day. Hollie Blevins MD Here for follow up for RLS, it is very calm with current medication regimen, says it's the calmest it's ever been in her life, only rarely has to walk due to RLS sxs (maybe every 6 wks) after her last dose of pramipexole But she doesn't go to the movies due to RLS Having increased left hip pain, that affects sleep RLS Horizant 300 mg -- 1 tab at 2 PM and 2 tabs at 5 PM. Last filled 05/16/24 #90. Pramipexole 0.125 mg -- 6 tabs daily -- 1 tab at 2 PM, 1 at dinner, 2 at 9 pm, and 2 at HS, excellent control with this regimen, sxs begin 3 PM so she starts med before sxs begin No adverse effects from her meds, no augmentation Dr Blevins has discussed switching to long-acting pramipexole but she still prefers not to Takes iron supplement BID Takes vitamin D daily (had a break from it in the Fall of 2022 since it was high) Labs need to be updated (05/15/23 ferritin 54, iron 57, transferrin saturation 17, vit D 89) Previously tried gabapentin which wasn't effective SLEEP APNEA MAURICE, declines therapy other than she sleeps inclined, no PAP hx SLEEP HYGIENE QUESTIONS: Bedtime : 11 pm - MN, can be later if fell asleep on couch watching TV earlier Wake up Time : early, often 6 am Time it takes to fall sleep : quick Number of times patient wakes up per night : 3-4 Reason (s) why patient wakes up during the night : urination Estimated total sleep time ( in a 24 hour period of time) : 6+ Naps : most days for 2 hrs PATIENT-ENTERED QUESTIONNAIRE SLEEP SCORES 05/20/2021 PHQ-9 Score 0 04/28/2020 04/15/2022 09/21/2022 PROMIS Global Health - (T-Scores - the mean of general population = 50. Five points is a clinically meaningful difference.) Physical T-Score 37.4 39.8 37.4 Mental T-Score 43.5 45.8 45.8 SLEEP RELATED ROS Review of Systems Genitourinary: Positive for nocturia. Musculoskeletal: Positive for arthralgias (left hip pain) and uncomfortable leg sensations. Neurological: Negative for memory loss. ALLERGIES Allergen Reactions Bacitracin (Bulk) Hives Codeine Unknown Dust Mites Other: See Comments Gentamicin Swelling redness of eye watery and itching Mold Unknown Sulfa (Sulfonamide * Other: See Comments redness Sulfabenzamide Hives Tree Pollen-Red Map* Shortness of Breath CURRENT MEDICATIONS: valsartan (DIOVAN) 320 mg tablet Take 1 tablet by mouth once daily. nystatin (MYCOSTATIN) powder Apply 1 application to affected area four times daily. semaglutide (OZEMPIC) 2 mg/dose (8 mg/3 mL) pen injector Inject 2 mg subcutaneously one time a week. fluticasone (FLONASE) 50 mcg/actuation nasal spray instill 2 sprays into each nostril once daily ketoconazole (NIZORAL) 2 % cream Apply to affected area once daily. Used for fungal skin fold rashes LUMIGAN 0.01 % drop ophthalmic drops instill 1 drop into both eyes at bedtime omeprazole (PRILOSEC) 40 mg capsule Take 1 capsule by mouth two times a day. atorvastatin (LIPITOR) 10 mg tablet take 1 tablet by mouth once daily levothyroxine (SYNTHROID) 75 mcg tablet take 1 tablet by mouth once daily on an empty stomach buPROPion SR (WELLBUTRIN SR) 150 mg 12 hr tablet take 1 tablet by mouth once daily montelukast (SINGULAIR) 10 mg tablet Take 1 tablet by mouth daily at bedtime. fluorometholone (FML LIQUID FILM) 0.1 % ophthalmic suspension instill 1 drop into both eyes twice a day as directed fluorometholone (FML LIQUID FILM) 0.1 % ophthalmic suspension 1 Drop every 4 hours. Magnesium Oxide 500 mg tab Take 500 mg by mouth once daily. Taking in gummy form ubidecarenone (COENZYME Q10) 100 mg tab Take 200 mg by mouth once daily. simethicone (GAS-X ORAL) Take 125 mg by mouth twice daily. multivit,thx,calcium,iron,mins (MULTIVITAMIN AND MINERAL ORAL) Take 1 tablet by mouth once daily. vitamin K2 100 mcg cap Take 100 mcg by mouth. Zinc 50 mg tab Take 50 mg by mouth. amLODIPine (NORVASC) 2.5 mg tablet Take 2.5 mg by mouth once daily. conjugated estrogens (PREMARIN) vaginal cream Use 0.5 g vaginally two times a week. metoprolol tartrate, short acting, (LOPRESSOR) 50 mg tablet Take 50 mg by mouth once daily. Bifidobacterium infantis (ALIGN ORAL) Take 1 tablet by mouth once daily. diclofenac sodium (VOLTAREN) 1 % topical gel Apply 2 g to affected area four times daily. amoxicillin (POLYMOX, AMOXIL) 500 mg capsule Take 500 mg by mouth. Take 4 capsules 1 hour before dental procedures. ferrous sulfate EC 324 mg (65 mg iron) TbEC Take 324 mg by mouth once daily. Twice a day gabapentin enacarbil (HORIZANT) 300 mg TbER Take 3 tablets by mouth once daily. Take one tablet at 2pm and two tablets at 5pm pramipexole (MIRAPEX) 0.125 mg tablet Take 2 tablets by mouth three times a day. ascorbic acid, vitamin C, (VITAMIN C) 500 mg tablet Take 1 tablet by mouth twice daily with meals for 27 doses. aspirin, enteric coated (ASPIRIN, ENTERIC COATED) 81 mg EC tablet Take 1 tablet by mouth twice daily for 28 days. Lancets lancets Test blood sugar(s) 1 times daily. Dx: Type 2 DM - Controlled E11.9 Insulin: No (Patient not taking: Reported on 06/21/2024) PHYSICAL EXAMINATION: Vital Signs: BP 138/76 (BP Site: Left Arm, BP Position: Sitting) Pulse 64 Resp 16 Wt 124.3 kg (274 lb) SpO2 94% BMI 42.91 kg/m PHYSICAL EXAM: General appearance: pleasant, NAD Mental status: alert and oriented, able to provide own history Constitutional: obese Skin: No visible rashes on exposed skin Neuro: No focal deficits observed, no tremors Using cane IMPRESSION: Rls (restless legs syndrome) (primary encounter diagnosis) Iron deficiency anemia, unspecified iron deficiency anemia type Vitamin d deficiency Kemal Cantu is a 78 year old female with RLS, MICHELLE, vit D deficiency She is satisfied with current med regimen for RLS, prefers not to try long-acting pramipexole We discussed potential for augmentation PLAN: --Continue meds Horizant 300 mg -- 1 tab at 2 PM and 2 tabs at 5 PM Pramipexole 0.125 mg -- 6 tabs daily -- 1 tab at 2 PM, 1 at dinner, 2 at 9 pm, and 2 at HS --We discussed Nidra by Noctrix for refractory RLS. She likes the idea, if her sxs worsen or she develops augmentation then she would like to proceed with it. --Labs to be done when she has blood draw for PCP, vit d and iron stores --Follow up Dr Blevins 6 mos Altagracia Constantino APRN.CNP PDMP website checked and validated. All prescriptions have been APPROPRIATELY filled. No suspicious activity was identified. 06/21/2024 by Altagracia Constantino APRN.CNP I spent a total of 35 minutes on the date of the service which included preparing to see the patient, [id number] patient care, completing clinical documentation, counseling and educating the patient/family/caregiver, and ordering medications, tests, or procedures. documented in this encounter [facility] 06-21-2024 Note HNO ID: [id number] Author: ALTAGRACIA CONSTANTINO APRN.BILL Service: ? Author Type: Nurse Practitioner Type: Progress Notes Filed: 06/21/2024 12:43 Note Text: [facility] Follow up/ Established patient visit Date of last visit : 12/18/2023 The following Impression/Plan was copied and pasted from the patient's last [facility] visit on 12/18/23: ASSESSMENT/PLAN: 1. RLS (restless legs syndrome) - ICD9: 333.94, ICD10: G25.81 (primary diagnosis) 2. Iron deficiency - ICD9: 280.9, ICD10: E61.1 3. Vitamin D deficiency - ICD9: 268.9, ICD10: E55.9 Patient symptoms of RLS stable. However, besides taking Horizant twice daily (300-600mg as above), patient also taking Mirapex 0.125mg up to 6x daily. No s/s of augmentation or side effects. However, d/w patient that given manner in which taking Mirapex, she may better be treated by taking Mirapex ER at an equivalent dose of current IR dosing for the day, to be taken at the same time as taking first dose of Horizant. This might also reduce the risk of augmentation. Pt will consider but does not want to change dosing today. Will discuss again at next visit. 4. MAURICE (obstructive sleep apnea) - ICD9: 327.23, ICD10: G47.33 5. Class 3 severe obesity with body mass index (BMI) of 40.0 to 44.9 in adult, unspecified obesity type, unspecified whether serious comorbidity present (HCC) - ICD9: 278.01, V85.41, ICD10: E66.01, Z68.41 Known history of MAURICE, but pt declining any form of therapy. Encouraged weight loss. Encouraged patient to sleep on side. No s/s of tiredness/sleepiness during the day. Hollie Blevins MD Here for follow up for RLS, it is very calm with current medication regimen, says it's the calmest it's ever been in her life, only rarely has to walk due to RLS sxs (maybe every 6 wks) after her last dose of pramipexole But she doesn't go to the movies due to RLS Having increased left hip pain, that affects sleep RLS Horizant 300 mg -- 1 tab at 2 PM and 2 tabs at 5 PM. Last filled 05/16/24 #90. Pramipexole 0.125 mg -- 6 tabs daily -- 1 tab at 2 PM, 1 at dinner, 2 at 9 pm, and 2 at HS, excellent control with this regimen, sxs begin 3 PM so she starts med before sxs begin No adverse effects from her meds, no augmentation Dr Blevins has discussed switching to long-acting pramipexole but she still prefers not to Takes iron supplement BID Takes vitamin D daily (had a break from it in the Fall of 2022 since it was high) Labs need to be updated (05/15/23 ferritin 54, iron 57, transferrin saturation 17, vit D 89) Previously tried gabapentin which wasn't effective SLEEP APNEA MAURICE, declines therapy other than she sleeps inclined, no PAP hx SLEEP HYGIENE QUESTIONS: Bedtime : 11 pm - MN, can be later if fell asleep on couch watching TV earlier Wake up Time : early, often 6 am Time it takes to fall sleep : quick Number of times patient wakes up per night : 3-4 Reason (s) why patient wakes up during the night : urination Estimated total sleep time ( in a 24 hour period of time) : 6+ Naps : most days for 2 hrs PATIENT-ENTERED QUESTIONNAIRE SLEEP SCORES 05/20/2021 PHQ-9 Score 0 04/28/2020 04/15/2022 09/21/2022 PROMIS Global Health - (T-Scores - the mean of general population = 50. Five points is a clinically meaningful difference.) Physical T-Score 37.4 39.8 37.4 Mental T-Score 43.5 45.8 45.8 SLEEP RELATED ROS Review of Systems Genitourinary: Positive for nocturia. Musculoskeletal: Positive for arthralgias (left hip pain) and uncomfortable leg sensations. Neurological: Negative for memory loss. ALLERGIES Allergen Reactions Bacitracin (Bulk) Hives Codeine Unknown Dust Mites Other: See Comments Gentamicin Swelling redness of eye watery and itching Mold Unknown Sulfa (Sulfonamide * Other: See Comments redness Sulfabenzamide Hives Tree Pollen-Red Map* Shortness of Breath CURRENT MEDICATIONS: valsartan (DIOVAN) 320 mg tablet Take 1 tablet by mouth once daily. nystatin (MYCOSTATIN) powder Apply 1 application to affected area four times daily. semaglutide (OZEMPIC) 2 mg/dose (8 mg/3 mL) pen injector Inject 2 mg subcutaneously one time a week. fluticasone (FLONASE) 50 mcg/actuation nasal spray instill 2 sprays into each nostril once daily ketoconazole (NIZORAL) 2 % cream Apply to affected area once daily. Used for fungal skin fold rashes LUMIGAN 0.01 % drop ophthalmic drops instill 1 drop into both eyes at bedtime omeprazole (PRILOSEC) 40 mg capsule Take 1 capsule by mouth two times a day. atorvastatin (LIPITOR) 10 mg tablet take 1 tablet by mouth once daily levothyroxine (SYNTHROID) 75 mcg tablet take 1 tablet by mouth once daily on an empty stomach buPROPion SR (WELLBUTRIN SR) 150 mg 12 hr tablet take 1 tablet by mouth once daily montelukast (SINGULAIR) 10 mg tablet Take 1 tablet by mouth daily at bedtime. fluorometholone (FML LIQUID FILM) 0.1 % ophthalmic suspe (more content not included)... [facility] 06-06-2024 Telephone encounter Note The patient has been identified by name and date of : Yes Caregiver verified no other encounters exist for this prescription request: Yes Caregiver confirmed with patient/requestor that no other refills are due, in the near future, with this provider at this time: Yes The last office visit in the department: 02/21/2024 Does the patient have a future office visit with this provider/department: Yes 08/26/2024 Requested Prescriptions Pending Prescriptions Disp Refills valsartan (DIOVAN) 320 mg tablet 90 tablet 1 Sig: Take 1 tablet by mouth once daily. Radha Eisenberg RN June 06, 2024 3:06 PM [facility] 06-06-2024 Miscellaneous Notes The patient has been identified by name and date of : Yes Caregiver verified no other encounters exist for this prescription request: Yes Caregiver confirmed with patient/requestor that no other refills are due, in the near future, with this provider at this time: Yes The last office visit in the department: 02/21/2024 Does the patient have a future office visit with this provider/department: Yes 08/26/2024 Requested Prescriptions Pending Prescriptions Disp Refills valsartan (DIOVAN) 320 mg tablet 90 tablet 1 Sig: Take 1 tablet by mouth once daily. Radha Eisenberg RN June 06, 2024 3:06 PM documented in this encounter [facility] 05-13-[address] - 05/13/2024 10:30 AM EDT When feeling OK try to get 10-15 min exercise Keep meals very small Only one snack in evening documented in this encounter [facility] 05-13-2024 History of Presen t illness Narrative Nutritional Therapy Re-Assessment Nutrition Diagnosis: Overweight/obesity, related to, excess energy intake and physical inactivity, as evidenced by BMI above normative standard for age and gender RECOMMENDED MALNUTRITION DIAGNOSIS: NO MALNUTRITION IDENTIFIED NUTRITION CARE PLAN: Nutrition Intervention 05/13/2024: modify type and amount of food or beverage When feeling OK try to get 10-15 min exercise Keep meals very small Only one snack in evening Nutrition Monitoring & Evaluation: half to one pound weight loss per week Need for Follow up: ~6 weeks PROGRESS: Interval History: following as relates to class 3 obesity Body mass index is 42.35 kg/m . DM, diabetes good control. Continues Ozempic for appetite and diabetes control. Notes less appetite. Has been sick and with more cravings . Weight appears fairly stable. Nutrition Intervention 04/01/24 Get back to regular exercise, goal for now 15 min daily Continue three regular meals, small meals Continue previous recommendations Actions to implement interventions: Diet History: wake 4-7 a.m. Brunch - Czech omelet: onions, spinach, tomatoes and feta Lunch - 9-6-hfztmznv or turkey sand Dinner - cauliflower pizza; zuchini egg casserole with spinach and other veggies; Stir pinto; stuffed peppers Snack - yasso bar, popcorners Beverages - water, diet soda, coffee Alcohol - occ Vitamins/Supplements - not lately Activity: Activities of Daily Living: gets up every hour Additional Activity: Sedentary (Little or no exercise: <1x/week) Very occ on bike (not feeling well) More stairs Anthropometrics: Height: Last Ht 05/13/24 : 170.2 cm (5' 7) Current weight: Last Wt 05/13/24 : 122.7 kg (270 lb 6.4 oz) Body mass index is 42.35 kg/m . Resting Metabolic Rate: 1744 Malnutrition Screening Significant unintentional weight loss? No Eating less than 75% of usual intake for more than 2 weeks? No Potential Signs of Inflammation: no identifiable sources Nutritional status: Education Materials Provided: None this visit READINESS TO LEARN Cognitive ability: Alert and oriented Motivation to learn: Interested Family support: Unable to assess - Family not present Instruction provided to: Patient Patient learns best by: Individual Instruction Factors affecting learning: None Physical limitations affecting learning: None Likelihood of Adherence: Moderate Referred/Supervised by: Sammi/Sammi CLEMENTS Billing Type: Re-assess/15 min 2 units SIGNATURE: Radha High RD PATIENT NAME: Kemal Cantu DATE: May 13, 2024 TIME: 10:18 AM documented in this encounter [facility] 05-02-2024 Telephone encounter Note Called and updated patient, voiced understanding. Romy Girard LPN May 02, 2024 8:59 AM [facility] 05-02-2024 Miscellaneous Notes Called and updated patient, voiced understanding. Romy Girard LPN May 02, 2024 8:59 AM Fluconazole ordered as requested. Follow up if no improvement. Do she need a powder for her abdominal fold? I sent one in case. Thank you Екатерина Escalante APRN.MICROGRINDER OPERATOR Patient reports the yeast in her naval fold and abdominal fold has returned. Reports the naval is ooozing yellow, and theres a spot in her abdominal fold that bleeds. Patient declined to schedule appt. Asking if Екатерина would send diflucan to [facility]. Last ov with Екатерина: 02-21-24, and patient reports Екатерина prescribed fluconazole for this at that time. Please advise patient. Pended Fluconazole. documented in this encounter [facility] 05-01-2024 Telephone encounter Note Fluconazole ordered as requested. Follow up if no improvement. Do she need a powder for her abdominal fold? I sent one in case. Thank you Екатерина Escalante APRN.MICROGRINDER OPERATOR [facility] 05-01-2024 Telephone encounter Note Patient reports the yeast in her naval fold and abdominal fold has returned. Reports the naval is ooozing yellow, and theres a spot in her abdominal fold that bleeds. Patient declined to schedule appt. Asking if Екатерина would send diflucan to [facility]. Last ov with Екатерина: 02-21-24, and patient reports Екатерина prescribed fluconazole for this at that time. Please advise patient. Pended Fluconazole. [facility] 04-01-[address] - 04/01/2024 1:27 PM EDT Get back to regular exercise, goal for now 15 min daily Continue three regular meals, small meals Continue previous recommendations documented in this encounter [facility] 04-01-2024 History of Presen t illness Narrative Nutritional Therapy Re-Assessment Nutrition Diagnosis: Overweight/obesity, related to, excess energy intake and physical inactivity, as evidenced by BMI above normative standard for age and gender RECOMMENDED MALNUTRITION DIAGNOSIS: NO MALNUTRITION IDENTIFIED NUTRITION CARE PLAN: Nutrition Intervention 04/01/2024: modify type and amount of food or beverage Get back to regular exercise, goal for now 15 min daily Continue three regular meals, small meals Continue previous recommendations Nutrition Monitoring & Evaluation: half to one pound weight loss per week Need for Follow up: 4-6 weeks PROGRESS: Interval History: following as relates to class 3 obesity Body mass index is 42.05 kg/m . Diabetes in good control. Note stable from last visit. Just had Ozempic increased, appetite decreased, now no longer with munchies. Not sleeping well, allergies and apnea. Wake several times during the night to urinate, occ issues with incontinence. Prior to increase in Ozempic was snacking more, mindless eating. No regular exercise and more sedentary during the day. Nutrition Intervention 01/01/04 Add in regular exercise, aim for at least 20 min most days Try chicken sausages as an option to hot dogs Continue three regular meals Limit snacks, keep junk out of the house . Track twice per week, aiming for 1500 calories, try [employer] All meals and snacks at the dinner table; minimize distractions, no TV while eating. Make meals last at least 20 min, chew each bite of food 20 x per bite.Portion out all foods, never eat out of container. Become more mindful of meal: Enjoy flavors, textures etc. Use hunger/fullness scale. 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 Resting Metabolic Rate: 1735 Malnutrition Screening Significant unintentional weight loss? No Eating less than 75% of usual intake for more than 2 weeks? No Potential Signs of Inflammation: no identifiable sources Nutritional status: Education Materials Provided: None this visit READINESS TO LEARN Cognitive ability: Alert and oriented Motivation to learn: Interested Family support: Unable to assess - Family not present Instruction provided to: Patient Patient learns best by: Individual Instruction Factors affecting learning: None Physical limitations affecting learning: None Likelihood of Adherence: Moderate Referred/Supervised by: Noah CLEMENTS Billing Type: Re-assess/15 min 2 units SIGNATURE: Radha High RD PATIENT NAME: Kemal Cantu DATE: April 01, 2024 TIME: 1:05 PM documented in this encounter [facility] 03-05-2024 Note Formatting of this n ote might be different from the original. March 06, 2024 PID: [id number] Kemal Cantu [address] [place] [address] Dear Ms. Cantu, We are pleased to inform you that the results of your recent breast imaging exam on 03/04/2024 are normal. Breast tissue can be either dense or not dense. Dense tissue makes it harder to find breast cancer on a mammogram and also raises the risk of developing breast cancer. Your breast tissue is not dense. Talk to your healthcare provider about breast density, risks for breast cancer, and your individual situation. Early detection of cancer is very important. We also understand recommendations regarding breast cancer screening are controversial. Please discuss with your primary care provider which strategy is best for you and whether a mammogram is right for you. Your imaging studies and report will be kept on file at [facility] as part of your permanent medical record and are available for your continuing care. Thank you for allowing us to help in meeting your health care needs. Sincerely, Dr. Kim Interpreting Radiologist [facility] (Normal over 40) [facility] 03-05-2024 Miscellaneous Notes March 06, 2024 PID: [id number] Kemal Cantu [address] [place] [address] Dear Ms. Cantu, We are pleased to inform you that the results of your recent breast imaging exam on 03/04/2024 are normal. Breast tissue can be either dense or not dense. Dense tissue makes it harder to find breast cancer on a mammogram and also raises the risk of developing breast cancer. Your breast tissue is not dense. Talk to your healthcare provider about breast density, risks for breast cancer, and your individual situation. Early detection of cancer is very important. We also understand recommendations regarding breast cancer screening are controversial. Please discuss with your primary care provider which strategy is best for you and whether a mammogram is right for you. Your imaging studies and report will be kept on file at [facility] as part of your permanent medical record and are available for your continuing care. Thank you for allowing us to help in meeting your health care needs. Sincerely, Dr. Kim Interpreting Radiologist [facility] (Normal over 40) documented in this encounter [facility] 03-04-2024 History of Presen t illness Narrative Radiology Service Progress Note PATIENT NAME: Kemal Cantu DATE OF SERVICE: March 04, 2024 TIME: 11:33 AM PATIENT IDENTITY VERIFICATION COMPLETED USING TWO (2) IDENTIFIERS: Name and Date of confirmed by patient verbally. FALL SCREENING: Has the patient had 2 falls in the last year or 1 fall with injury or currently using an Ambulatory Assistive Device (Walker, Cane, Wheelchair, Crutches, etc.)? No PATIENT GENDER DATA: Female. status: : No status: NO. PATIENT RELEVANT IMPLANT DATA REVIEWED: Not Applicable PATIENT PRESENTS WITH AN IMPLANTABLE OR ATTACHED FRAME STRIPPER: No RADIOLOGY DEPARTMENT: Mammography PERIPHERAL IV DATA: Not applicable SIGNED BY: Nazario Brisenoo Hugo March 04, 2024 11:33 AM documented in this encounter [facility] 03-01-2024 Telephone encounter Note Phoned patient aware rx sent to pharmacy. [facility] 03-01-2024 Miscellaneous Notes Phoned patient aware rx sent to pharmacy. Script resent Thank you Екатерина Escalante APRN.CNP Patient asking for her script for Ozempic be re-sent, please. Pharmacy did not receive it on 02/21/24. Thank you. documented in this encounter [facility] 03-01-2024 Telephone encounter Note Script resent Thank you Екатерина Escalante APRN.CNP [facility] 03-01-2024 Telephone encounter Note Patient asking for her script for Ozempic be re-sent, please. Pharmacy did not receive it on 02/21/24. Thank you. [facility] 02-21-2024 History of Presen t illness Narrative CC: Patient presents with: Recheck: 6 month follow up HPI Kemal Cantu is a 78 year old female who presents today for routine follow up. DIABETES MELLITUS: Ms. Cantu she denies excessive thirst or increased frequency of urination, chest pain or dyspnea , numbness, tingling or pain in extremities, new or unusual visual symptoms, low sugar/hypoglycemic reactions, weight loss/gain, lightheadedness/dizziness, and bowel changes/loose stools. Follows a diabetic diet most of the time. She is compliant with medication(s) and is tolerating med(s) without any side effects. She reports checking her glucose on a infrequent to not at all basis schedule . Patient's last HgA1C was Hemoglobin A1C (%) Date Value 02/13/2024 5.5 09/18/2023 5.6 08/18/2021 6.6 05/18/2021 6.1 ) Last Ophthalmology exam was within the past 12 months HTN and HLD: Ms. Cantu indicates that she is feeling well and denies any symptoms referable to elevated blood pressure. Specifically denies headache, chest pain, palpitations, dyspnea, and peripheral edema. Patient denies any side effects of her medication(s) and is compliant with their regimen. She does not check BP's generally. Kemal denies regular aerobic exercise. She watches her diet for sodium, low fat and low cholesterol most of the time. Last 3 Encounter BP Readings: Date: BP: 02/21/2024 140/74 12/18/2023 122/70 09/01/2023 137/83 Hypothyroidism: Takes medication as ordered. Abnormal changes in weight or energy. Has had intermittent drainage from her belly button for the past few months. Drainage is yellow to brown but not foul smelling. Denies any redness, fever, chills, injury, known open areas, or abdominal pain. Has history of intermittent abdominal intertrigo that she uses ketoconazole for and needs a refill. REVIEW OF SYSTEMS See HPI PAST MEDICAL HISTORY Diagnosis Date Diabetes mellitus (HCC) Fibromyalgia Fuchs' corneal dystrophy Gastroesophageal reflux disease Glaucoma HTN (hypertension) Hypothyroidism Irritable bowel syndrome Migraines MAURICE (obstructive sleep apnea) does not use c-pap Osteoarthritis Plantar fasciitis PONV (postoperative nausea and vomiting) Pseudophakia PTSD (post-traumatic stress disorder) Restless leg syndrome Sleep apnea in adult TMJ (dislocation of temporomandibular joint) PAST SURGICAL HISTORY Procedure Laterality Date CATARACT EXTRACTION W/ INTRAOCULAR LENS IMPLANT HX Bilateral 2016 COLONOSCOPY FLX DX W/COLLJ SPEC WHEN PFRMD 06/21/2021 CORNEAL TISSUE DSAEK/DMEK Left 09/30/2019 Dr. Clark ENDOTHELIAL KERATOPLASTY(DMEK) Right 04/17/2019 ENDOTHELIAL KERATOPLASTY/DSAEK Right 03/18/2019 ESOPHAGOGASTRODUODENOSCOPY TRANSORAL DIAGNOSTIC 06/21/2021 PAST SURGICAL HISTORY OF 1972 parathyroid adenoma surgery PAST SURGICAL HISTORY OF 1988 hysterectomy with prolapsed bladder repair PAST SURGICAL HISTORY OF 1992 abdominoplasty PAST SURGICAL HISTORY OF 1993 breast reduction PAST SURGICAL HISTORY OF 1979 deviated septum repair PAST SURGICAL HISTORY OF 1965 D&C after miscarriage PAST SURGICAL HISTORY OF 2013 Total right knee repalcement PAST SURGICAL HISTORY OF 11/2013 total left knee replacement PAST SURGICAL HISTORY OF 2015 rectocele repair with vaginal mesh PAST SURGICAL HISTORY OF 11/01/2015 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 PAST SURGICAL HISTORY OF 2018 DMEK Corneal Transplant-Right eye PAST SURGICAL HISTORY OF Left 10/10/2019 INJECTION, ANTERIOR CHAMBER OF EYE; AIR PAST SURGICAL HISTORY OF Right 1996 cyst removal off right 4 toe PAST SURGICAL HISTORY OF hammer toe surgery PAST SURGICAL HISTORY OF 04/2022 Prolasped vagina PRQ CARDIAC STENT W/ANGIO 1 VSL 03/02/2021 90% blockage RCA SKIN LESION BIOPSY 10/2015 x2 face TOTAL HIP REPLACEMENT Right 03/15/2023 Right Total hip replacement YAG CAPSULOTOMY OD (RIGHT EYE) 2018 YAG CAPSULOTOMY OS (LEFT EYE) 2018 ALLERGIES Bacitracin (Bulk), Codeine, Dust Mites, Gentamicin, Mold, Sulfa (Sulfonamide Antibiotics), Sulfabenzamide, and Tree Pollen-Red Maple MEDICATIONS LUMIGAN 0.01 % drop ophthalmic drops instill 1 drop into both eyes at bedtime gabapentin enacarbil (HORIZANT) 300 mg TbER Take 3 tablets by mouth once daily. Take one tablet at 2pm and two tablets at 5pm pramipexole (MIRAPEX) 0.125 mg tablet Take 2 tablets by mouth three times a day. omeprazole (PRILOSEC) 40 mg capsule Take 1 capsule by mouth two times a day. valsartan (DIOVAN) 320 mg tablet Take 1 tablet by mouth once daily. atorvastatin (LIPITOR) 10 mg tablet take 1 tablet by mouth once daily levothyroxine (SYNTHROID) 75 mcg tablet take 1 tablet by mouth once daily on an empty stomach semaglutide (OZEMPIC) 1 mg/dose (2 mg/1.5 mL) pen Inject 1 mg subcutaneously one time a week. semaglutide (OZEMPIC) 1 mg/dose (4 mg/3 mL) pen Inject 1 mg subcutaneously one time a week. ketoconazole (NIZORAL) 2 % cream Apply to affected area once daily. Used for fungal skin fold rashes buPROPion SR (WELLBUTRIN SR) 150 mg 12 hr tablet take 1 tablet by mouth once daily montelukast (SINGULAIR) 10 mg tablet Take 1 tablet by mouth daily at bedtime. fluorometholone (FML LIQUID FILM) 0.1 % ophthalmic suspension instill 1 drop into both eyes twice a day as directed fluorometholone (FML LIQUID FILM) 0.1 % ophthalmic suspension 1 Drop every 4 hours. metFORMIN (GLUCOPHAGE) 500 mg tablet Take 1 tablet by mouth daily with breakfast. (Patient taking differently: Take 500 mg by mouth daily with breakfast. 1/2 tablet changed six months ago) ascorbic acid, vitamin C, (VITAMIN C) 500 mg tablet Take 1 tablet by mouth twice daily with meals for 27 doses. aspirin, enteric coated (ASPIRIN, ENTERIC COATED) 81 mg EC tablet Take 1 tablet by mouth twice daily for 28 days. Magnesium Oxide 500 mg tab Take 500 mg by mouth once daily. Taking in gummy form fluticasone (FLONASE) 50 mcg/actuation nasal spray instill 2 sprays into each nostril once daily Lancets lancets Test blood sugar(s) 1 times daily. Dx: Type 2 DM - Controlled E11.9 Insulin: No ubidecarenone (COENZYME Q10) 100 mg tab Take 200 mg by mouth once daily. simethicone (GAS-X ORAL) Take 125 mg by mouth twice daily. multivit,thx,calcium,iron,mins (MULTIVITAMIN AND MINERAL ORAL) Take 1 tablet by mouth once daily. vitamin K2 100 mcg cap Take 100 mcg by mouth. Zinc 50 mg tab Take 50 mg by mouth. amLODIPine (NORVASC) 2.5 mg tablet Take 2.5 mg by mouth once daily. conjugated estrogens (PREMARIN) vaginal cream Use 0.5 g vaginally two times a week. metoprolol tartrate, short acting, (LOPRESSOR) 50 mg tablet Take 50 mg by mouth once daily. Bifidobacterium infantis (ALIGN ORAL) Take 1 tablet by mouth once daily. diclofenac sodium (VOLTAREN) 1 % topical gel Apply 2 g to affected area four times daily. amoxicillin (POLYMOX, AMOXIL) 500 mg capsule Take 500 mg by mouth. Take 4 capsules 1 hour before dental procedures. ferrous sulfate EC 324 mg (65 mg iron) TbEC Take 324 mg by mouth once daily. Twice a day FAMILY HISTORY Problem Relation Age of Onset Heart Mother Diabetes Mother Heart Father Stroke Father Cataract Paternal Grandfather Glaucoma Other Social History Tobacco Use Smoking status: Never Passive exposure: Past Smokeless tobacco: Never Tobacco comments: Second hand smoke (mother) Vaping Use Vaping Use: Never used Substance Use Topics Alcohol use: Yes Alcohol/week: 1.0 standard drink of alcohol Types: 1 Glasses of wine per week Comment: 3-4 glasses of wine per year Drug use: Never PHYSICAL EXAM BP 140/74 Pulse 84 Resp 16 Wt 122.9 kg (271 lb) SpO2 98% BMI 42.44 kg/m General Appearance: well appearing, in no acute distress, alert Skin: reddened area to right side abdominal fold without drainage, open areas, tenderness or increased warmth. Umbilical with redness inside and yellow moisture/draiange when swabbed. No tenderness, red streaking, foul smell, or open areas noted. Eyes: conjunctiva pink and moist, no icterus, sclera white, non-injected Lungs: Lungs clear to auscultation. No wheezing, rhonchi, rales. Heart: RRR without murmur, gallop, or rubs. No ectopy Health maintenance reviewed with patient: BP Controlled (<130/80) Never done Diabetic Foot Exam due on 01/27/2024 Influenza Vaccine(1) due on 04/14/2024 Dilated Retinal Exam due on 05/01/2024 Covid-19 Vaccine(2022- season) due on 05/30/2024 HbA1C due on 08/15/2024 Serum Creatinine due on 09/18/2024 Urine Albumin:Creatinine Ratio due on 02/12/2025 LDL Cholesterol due on 02/12/2025 Annual PCP Team Chronic Disease Visit due on 02/20/2025 DTaP,Tdap,Td Vaccine(3 - Td or Tdap) due on 01/28/2034 Bone Density Screening Completed Advance Directive Discussion Completed RSV Vaccine Completed Shingrix Vaccine Completed Mammogram Screening Discontinued Colorectal Cancer Screening Discontinued Hepatitis C Screening Discontinued Pneumococcal Vaccine: 65+ Discontinued DATA REVIEWED: Most recent labs ASSESSMENT/PLAN: 1. Type 2 diabetes mellitus without complication, without long-term current use of insulin (HCC) - ICD9: 250.00, ICD10: E11.9 (primary diagnosis) - Controlled - stopping metformin and increasing ozempic - Blood glucose monitoring on a once daily schedule - Counseled on healthy diet and regular exercise - Discussed need for and benefit of weight loss. BMI 42.44 kg/(m^2) - SEMAGLUTIDE 2 MG/DOSE (8 MG/3 ML) SUBCUTANEOUS PEN INJECTOR - COMPLETE BLOOD COUNT - COMPREHENSIVE METABOLIC PANEL - HEMOGLOBIN A1C 2. Mixed hyperlipidemia - ICD9: 272.2, ICD10: E78.2 - Controlled - possibly not fully fasting so will recheck in 6 months since triglycerides elevated - Continue current medications - Counseled on healthy diet and regular exercise - Discussed need for and benefit of weight loss. BMI 42.44 kg/(m^2) - COMPREHENSIVE METABOLIC PANEL - LIPID PANEL BASIC 3. Essential hypertension, benign - ICD9: 401.1, ICD10: I10 - Controlled - Continue current medications - Recommend home blood pressure monitoring, to bring results to next visit - Encouraged sodium restriction, DASH or Mediterranean diet - Recommend regular aerobic exercise - COMPLETE BLOOD COUNT - COMPREHENSIVE METABOLIC PANEL 4. Hypothyroidism, unspecified type - ICD9: 244.9, ICD10: E03.9 - Instructed patient on importance of taking on an empty stomach either first thing in the morning or at bedtime. - THYROID STIMULATING HORMONE - T4 FREE/FREE THYROXINE - T3, FREE - THYROID STIMULATING HORMONE 5. Intertrigo - ICD9: 695.89, ICD10: L30.4 Diflucan and ketoconazole as ordered Follow up for no improvement or any further concerns. 6. Encounter for screening mammogram for malignant neoplasm of breast - ICD9: V76.12, ICD10: Z12.31 - MATTHIAS SCREENING Prescription instructions reviewed with patient as applicable. Potential red flag symptoms discussed with the patient. Reviewed appropriate action plan to take if red flag symptoms occur. Patient agreeable to treatment plan. Екатерина Escalante APRN.CNP documented in this encounter [facility] 02-02-2024 History of Presen t illness Narrative CDM Telephonic Outreach Provider Action/FYI Pt denies symptom changes, concerns or needs Pt notes does not go onto My Chart often, in agreement for every 4-6 weeks telephonic calls ADL, Falls, Goals, SDH updated Contacted for: Engagement Contact made with patient: Yes Patient identified by name and date of . Discussed care with patient Outcomes: Patient switched from [facility] to telephone outreach Are you experiencing any new or worsening symptoms you need to talk about today? No Based on title agent, the following disposition is advised: No symptoms or symptoms present, not severe. Routed to: No Action Needed MICKY Education Provided this Outreach: No Hedy Owens RN February 02, 2024 1:06 PM CDM Telephonic Outreach Provider Action/FYI CDM: CKD Late Entry: Called Pt, unable to leave?a message to verify symptom status and need Contacted for: Goals/Falls/ADL Update Contact made with patient: No, unable to leave message. Will reattempt call Hedy Owens RN January 31, 2024 8:59 AM documented in this encounter [facility] 01-31-2024 History of Presen t illness Narrative CDM Telephonic Outreach Provider Action/FYI CDM: CKD Left a message to verify symptom status, instructed to contact PCP for condition changes and needs. Contacted for: Goals/Falls/ADL Update Contact made with patient: No, left message. Hedy Owens RN January 31, 2024 3:23 PM documented in this encounter [facility] 01-16-2024 Telephone encounter Note Irma Cantu [facility] [id number] 02/06/21 [facility] electronically requesting refills as follows: Requested Prescriptions Pending Prescriptions Disp Refills LUMIGAN 0.01 % drop ophthalmic drops [Pharmacy Med Name: LUMIGAN 0.01% EYE DROPS] 5 mL 11 Sig: instill 1 drop into both eyes at bedtime Please review and advise. Taniya Byrne & Bradley Recinos MD filed at 02/05/2021 7:14 AM Status: Signed Encounter Diagnosis ICD-10-CM 1. Status post corneal transplant Z94.7 ECC/CONFOCAL MICROSCOPY OU (BOTH EYES) OCT ANTERIOR SEGMENT OPTOVUE OU (BOTH EYES) 2. Primary open angle glaucoma (POAG) of both eyes, indeterminate stage H40.1134 3. Pseudophakia Z96.1 s/p DMEK OU, clear graft OU Has been off PF doing well Signs and symptoms of rejection reviewed, call JOYCE if present +hx early glaucoma vs glaucoma suspect following with local ophthalmology -- planning to see Dr. Gu in several months okay to follow up for care locally, can return to ca PRN in the future or if any new s/s next visit mrx iop dfe ou optovue ou confocal cafe server ou [facility] 01-16-2024 Miscellaneous Notes Iram Cantu [facility] [id number] 02/06/21 [facility] electronically requesting refills as follows: Requested Prescriptions Pending Prescriptions Disp Refills LUMIGAN 0.01 % drop ophthalmic drops [Pharmacy Med Name: LUMIGAN 0.01% EYE DROPS] 5 mL 11 Sig: instill 1 drop into both eyes at bedtime Please review and advise. Taniya Byrne & Bradley Recinos MD filed at 02/05/2021 7:14 AM Status: Signed Encounter Diagnosis ICD-10-CM 1. Status post corneal transplant Z94.7 ECC/CONFOCAL MICROSCOPY OU (BOTH EYES) OCT ANTERIOR SEGMENT OPTOVUE OU (BOTH EYES) 2. Primary open angle glaucoma (POAG) of both eyes, indeterminate stage H40.1134 3. Pseudophakia Z96.1 s/p DMEK OU, clear graft OU Has been off PF doing well Signs and symptoms of rejection reviewed, call JOYCE if present +hx early glaucoma vs glaucoma suspect following with local ophthalmology -- planning to see Dr. Gu in several months okay to follow up for care locally, can return to me PRN in the future or if any new s/s next visit mrx iop dfe ou optovue ou confocal cafe server ou documented in this encounter [facility] 01-01-[address] - 01/01/2024 12:11 PM EDT Add in regular exercise, aim for at least 20 min most days Try chicken sausages as an option to hot dogs Continue three regular meals Limit snacks, keep junk out of the house . Track twice per week, aiming for 1500 calories, try Mynetdiary All meals and snacks at the dinner table; minimize distractions, no TV while eating. Make meals last at least 20 min, chew each bite of food 20 x per bite.Portion out all foods, never eat out of container. Become more mindful of meal: Enjoy flavors, textures etc. Use hunger/fullness scale. Activity as tolerated documented in this encounter [facility] 01-01-2024 History of Presen t illness Narrative Nutritional Therapy Re-Assessment Nutrition Diagnosis: Overweight/obesity, related to, excess energy intake and physical inactivity, as evidenced by BMI above normative standard for age and gender RECOMMENDED MALNUTRITION DIAGNOSIS: NO MALNUTRITION IDENTIFIED NUTRITION CARE PLAN: Nutrition Intervention 01/01/2024: modify type and amount of food or beverage Add in regular exercise, aim for at least 20 min most days Try chicken sausages as an option to hot dogs Continue three regular meals Limit snacks, keep junk out of the house . Track twice per week, aiming for 1500 calories, try Mynetdiary All meals and snacks at the dinner table; minimize distractions, no TV while eating. Make meals last at least 20 min, chew each bite of food 20 x per bite.Portion out all foods, never eat out of container. Become more mindful of meal: Enjoy flavors, textures etc. Use hunger/fullness scale. Activity as tolerated Nutrition Monitoring & Evaluation: 1-2 lb weight loss per week Need for Follow up: 4-6 weeks PROGRESS: Interval History: Following as relates to class 3 obesity Body mass index is 42.05 kg/m ., DM, continues Ozempic for diabetes and appetite control. Meals generally appropriate, has been snacking more with high stress and emotional eating. Has been active with house work and moving furniture but no regular exercise. Does still have some hip pain and other hip is also causing pain. Note about 2 lbs lost since last visit . Nutrition Intervention 10/23/23 Continue three regular meals Limit snacks, keep junk out of the house . Track twice per week, aiming for 1500 calories, try Mynetdiary All meals and snacks at the dinner table; minimize distractions, no TV while eating. Make meals last at least 20 min, chew each bite of food 20 x per bite.Portion out all foods, never eat out of container. Become more mindful of meal: Enjoy flavors, textures etc. Use hunger/fullness scale. Activity as tolerated Actions to implement interventions: More snacking, emotional not watching portions Diet History: Breakfast - breakfast bar, yogurt and coffee Snack - occ Lunch - left overs from dinner; occ sandwich of turkey Snack - occ Dinner - zuchini with veggies with eggs and bisquick; stuffed green peppers; chicken and biscuits Snack - occ Beverages - water, diet soda, occ juan Alcohol - occ Vitamins/Supplements - no change Lately snacking with emotional eating Snacking on sugar free candy, chips, pop chips, Activity: Activities of Daily Living: ADL:'s, re arranging houtse Additional Activity: Sedentary (Little or no exercise: <1x/week) Moving furniture Occ bike Anthropometrics: Height: Last 1 Encounter Ht Readings: Date: Ht: 01/01/2024 170.2 cm (5' 7) Current weight: Last 1 Encounter Wt Readings: Date: Wt: 01/01/2024 121.8 kg (268 lb 8 oz) Body mass index is 42.05 kg/m . Resting Metabolic Rate: 1735 Malnutrition Screening Significant unintentional weight loss? No Eating less than 75% of usual intake for more than 2 weeks? No Potential Signs of Inflammation: no identifiable sources Nutritional status: Education Materials Provided: None this visit READINESS TO LEARN Cognitive ability: Alert and oriented Motivation to learn: Interested Family support: Unable to assess - Family not present Instruction provided to: Patient Patient learns best by: Individual Instruction Factors affecting learning: None Physical limitations affecting learning: None Likelihood of Adherence: Moderate Referred/Supervised by: Romy CLEMENTS Billing Type: Re-assess/15 min 2 units SIGNATURE: Radha High RD PATIENT NAME: Kemal Cantu DATE: January 01, 2024 TIME: 11:00 AM documented in this encounter [facility] 12-18-2023 Instructions Hollie Blevins Jr., MD - 12/18/2023 5:39 PM EDT Your most recent body mass index (BMI) that we have on record is 42.35 kg/m2. Obstructive sleep apnea (MAURICE) worsens with an increase in weight; reduction in weight may improve or resolve your MAURICE. If you are not already seeking treatment, there are resources available at the [facility] such as a nutrition consultation or referral to weight management programs at our [facility]. Please let us know if we can assist with a referral. documented in this encounter [facility] 12-18-2023 History of Presen t illness Narrative ESTABLISHED PATIENT VISIT CHIEF COMPLAINT: RLS follow up HISTORY OF PRESENT ILLNESS: Kemal Cantu is a 78 year old female, BMI 42.35 kg/m2 with a PMH significant for and per last office visit with Jay Snow CNP on 05/15/23: G25.81 Restless legs (primary encounter diagnosis) E55.9 Vitamin D deficiency E61.1 Iron deficiency 77 yo female who presents for follow up for RLS in need of Mirapex and Horizant refills. Patient states she has been taking Mirapex for decades and has been on as high as 8 tablets a day. The addition of Horizant has aloud her to reduce to 6 tablets per day. She denies SE/ADRs/ and denies SI. She verbalizes understanding of risks and benefits, and discussed augmentation risks. She would like to continue plan of care as is for quality of life measures. Plan: - Refill approved for Mirapex 0.125 mg up to 6 times per day - Refill approved for Horizant 900 mg HS - Additional lab values including ferritin ordered - Continue iron and vitamin D supplements I personally last saw patient on 09/30/2022. Patient reports doing well. Still taking Horizant 300mg at 2PM and then 600mg at dinner. Patient states definitely impacting the RLS. Patient takes a total of Mirapex 0.125mg throughout the day - as needed/not scheduled. Discussed with pt long acting Mirapex dosing. States would not take patch or Neupro due to easy skin irritation. Does not feel RLS is worsening or has s/s or augmentation. No symptoms on a standard day, but on irregular day where for example takes a long drive, symptoms will be worse. Takes FeSO4 supplement at home as well as Vit D. No MAURICE symptoms per pt. Patient wit prior dx, but still not interested in further workup at this time. Did wear PAP x2 years. Sleeping upright or on side. Down 30 pounds since sleep study. Not tired during the day. ESS= 05/07 in office. Latest Reference Range & Units 05/25/20 09:37 03/19/21 11:10 08/18/21 13:24 05/19/22 12:15 05/15/23 16:01 Ferritin 14.7 - 205.1 ng/mL 84.1 78.2 35.4 47.4 54.3 Iron 41 - 186 ug/dL 81 66 59 90 57 TIBC 232 - 386 ug/dL 338 305 357 350 320 Transferrin Saturation 15.0 - 57.0 % 24 22 17 25.7 17.8 REVIEW OF SYSTEMS GENERAL:No weight loss, malaise or fevers. HEENT:Negative for frequent or significant headaches, No changes in hearing or vision, no nose bleeds or other nasal problems NECK:Negative for lumps, goiter, pain and significant neck swelling RESPIRATORY: Negative for cough, wheezing or shortness of breath. CARDIOVASCULAR: Negative for chest pain, leg swelling or palpitations. GASTROINTESTINAL: Negative for abdominal discomfort, blood in stools or black stools or change in bowel habits GENITOURINARY: No history of dysuria, frequency or incontinence MUSCULOSKELETAL: Negative for joint pain or swelling, back pain or muscle pain. NEUROLOGIC:Negative for focal numbness or weakness, headaches and dizziness or syncope, vision changes, speech/languag changes - EXCEPT that as per HPI above. SKIN:Negative for lesions, rash, and itching. LAB/IMAGING: Those performed since patient's last visit have been reviewed. WBC (k/uL) Date Value 09/18/2023 4.85 RBC (m/uL) Date Value 09/18/2023 4.73 Hemoglobin (g/dL) Date Value 09/18/2023 13.7 Hematocrit (%) Date Value 09/18/2023 42.1 MCV (fL) Date Value 09/18/2023 89.0 MCH (pg) Date Value 09/18/2023 29.0 MCHC (g/dL) Date Value 09/18/2023 32.5 RDW-CV (%) Date Value 09/18/2023 14.3 Platelet Count (k/uL) Date Value 09/18/2023 215 MPV (fL) Date Value 09/18/2023 10.3 Glucose (mg/dL) Date Value 09/18/2023 94 BUN (mg/dL) Date Value 09/18/2023 11 Creatinine (mg/dL) Date Value 09/18/2023 0.88 Sodium (mmol/L) Date Value 09/18/2023 140 Potassium (mmol/L) Date Value 09/18/2023 4.9 Chloride (mmol/L) Date Value 09/18/2023 104 CO2 (mmol/L) Date Value 09/18/2023 28 Protein, Total (g/dL) Date Value 09/18/2023 6.3 Albumin (g/dL) Date Value 09/18/2023 4.1 Calcium, Total (mg/dL) Date Value 09/18/2023 9.7 Alkaline Phosphatase (U/L) Date Value 09/18/2023 94 Bilirubin, Total (mg/dL) Date Value 09/18/2023 0.3 AST (U/L) Date Value 09/18/2023 23 ALT (U/L) Date Value 09/18/2023 20 MEDICATIONS: omeprazole (PRILOSEC) 40 mg capsule Take 1 capsule by mouth two times a day. valsartan (DIOVAN) 320 mg tablet Take 1 tablet by mouth once daily. atorvastatin (LIPITOR) 10 mg tablet take 1 tablet by mouth once daily levothyroxine (SYNTHROID) 75 mcg tablet take 1 tablet by mouth once daily on an empty stomach semaglutide (OZEMPIC) 1 mg/dose (2 mg/1.5 mL) pen Inject 1 mg subcutaneously one time a week. semaglutide (OZEMPIC) 1 mg/dose (4 mg/3 mL) pen Inject 1 mg subcutaneously one time a week. pramipexole (MIRAPEX) 0.125 mg tablet Take 2 tablets by mouth three times a day. gabapentin enacarbil (HORIZANT) 300 mg TbER Take 3 tablets by mouth once daily. Take one tablet at 2pm and two tablets at 5pm Patient should start on November 26, 2023. buPROPion SR (WELLBUTRIN SR) 150 mg 12 hr tablet take 1 tablet by mouth once daily montelukast (SINGULAIR) 10 mg tablet Take 1 tablet by mouth daily at bedtime. fluorometholone (FML LIQUID FILM) 0.1 % ophthalmic suspension instill 1 drop into both eyes twice a day as directed fluorometholone (FML LIQUID FILM) 0.1 % ophthalmic suspension 1 Drop every 4 hours. metFORMIN (GLUCOPHAGE) 500 mg tablet Take 1 tablet by mouth daily with breakfast. (Patient taking differently: Take 500 mg by mouth daily with breakfast. 1/2 tablet changed six months ago) Magnesium Oxide 500 mg tab Take 500 mg by mouth once daily. Taking in gummy form fluticasone (FLONASE) 50 mcg/actuation nasal spray instill 2 sprays into each nostril once daily ubidecarenone (COENZYME Q10) 100 mg tab Take 200 mg by mouth once daily. simethicone (GAS-X ORAL) Take 125 mg by mouth twice daily. multivit,thx,calcium,iron,mins (MULTIVITAMIN AND MINERAL ORAL) Take 1 tablet by mouth once daily. vitamin K2 100 mcg cap Take 100 mcg by mouth. Zinc 50 mg tab Take 50 mg by mouth. amLODIPine (NORVASC) 2.5 mg tablet Take 2.5 mg by mouth once daily. conjugated estrogens (PREMARIN) vaginal cream Use 0.5 g vaginally two times a week. metoprolol tartrate, short acting, (LOPRESSOR) 50 mg tablet Take 50 mg by mouth once daily. Bifidobacterium infantis (ALIGN ORAL) Take 1 tablet by mouth once daily. diclofenac sodium (VOLTAREN) 1 % topical gel Apply 2 g to affected area four times daily. amoxicillin (POLYMOX, AMOXIL) 500 mg capsule Take 500 mg by mouth. Take 4 capsules 1 hour before dental procedures. ferrous sulfate EC 324 mg (65 mg iron) TbEC Take 324 mg by mouth once daily. Twice a day ketoconazole (NIZORAL) 2 % cream Apply to affected area once daily. Used for fungal skin fold rashes ascorbic acid, vitamin C, (VITAMIN C) 500 mg tablet Take 1 tablet by mouth twice daily with meals for 27 doses. aspirin, enteric coated (ASPIRIN, ENTERIC COATED) 81 mg EC tablet Take 1 tablet by mouth twice daily for 28 days. LUMIGAN 0.01 % drop ophthalmic drops instill 1 drop into both eyes once daily at bedtime Lancets lancets Test blood sugar(s) 1 times daily. Dx: Type 2 DM - Controlled E11.9 Insulin: No blood sugar diagnostic (BLOOD GLUCOSE TEST) test strip Test blood sugar(s) 2 times daily. Dx: Type 2 DM - Controlled E11.9 Insulin: No (Patient not taking: Reported on 12/18/2023) HISTORIES PAST MEDICAL HISTORY Diagnosis Date Diabetes mellitus (HCC) Fibromyalgia Fuchs' corneal dystrophy Gastroesophageal reflux disease Glaucoma HTN (hypertension) Hypothyroidism Irritable bowel syndrome Migraines MAURICE (obstructive sleep apnea) does not use c-pap Osteoarthritis Plantar fasciitis PONV (postoperative nausea and vomiting) Pseudophakia PTSD (post-traumatic stress disorder) Restless leg syndrome Sleep apnea in adult TMJ (dislocation of temporomandibular joint) FAMILY HISTORY Problem Relation Age of Onset Heart Mother Diabetes Mother Heart Father Stroke Father Cataract Paternal Grandfather Glaucoma Other SOCIAL HISTORY Social History Tobacco Use Smoking status: Never Passive exposure: Past Smokeless tobacco: Never Tobacco comments: Second hand smoke (mother) Vaping Use Vaping Use: Never used Substance Use Topics Alcohol use: Yes Alcohol/week: 1.0 standard drink of alcohol Types: 1 Glasses of wine per week Comment: 3-4 glasses of wine per year Drug use: Never PHYSICAL EXAMINATION BP 122/70 Pulse 66 Resp 16 Wt 122.7 kg (270 lb 6.4 oz) SpO2 96% BMI 42.35 kg/m GENERAL EXAM: General appearance: NAD, pleasant. HEENT: NC/AT, nasal congestion absent, no oral lesions, membranes moist. NECK: No masses, supple. Lungs: CTA bilaterally. CV: RRR nl S1, S2 Extr: No cyanosis, clubbing or edema. Skin: Cool to touch. NEUROLOGICAL EXAM: General: Awake, alert, oriented x3 (person,place,time), speech fluent, no dysarthria; comprehension, naming, repetition intact. CN: PERRL, EOMI and without nystagmus, VFF to confrontation, facial sensation and strength are normal and symmetric, hearing is intact to finger rub bilaterally, palate and tongue movements are intact and symmetric. SCM and trapezius strength normal. Motor: Normal tone, bulk and strength (5/5) bilaterally (throughout extremities x4). Coordination: FNF, JARAD, HTS intact. No tremors. Sensation: LT intact throughout. No evidence of neglect. Gait: Stable. Assessment and Plan: ASSESSMENT/PLAN: 1. RLS (restless legs syndrome) - ICD9: 333.94, ICD10: G25.81 (primary diagnosis) 2. Iron deficiency - ICD9: 280.9, ICD10: E61.1 3. Vitamin D deficiency - ICD9: 268.9, ICD10: E55.9 Patient symptoms of RLS stable. However, besides taking Horizant twice daily (300-600mg as above), patient also taking Mirapex 0.125mg up to 6x daily. No s/s of augmentation or side effects. However, d/w patient that given manner in which taking Mirapex, she may better be treated by taking Mirapex ER at an equivalent dose of current IR dosing for the day, to be taken at the same time as taking first dose of Horizant. This might also reduce the risk of augmentation. Pt will consider but does not want to change dosing today. Will discuss again at next visit. 4. MAURICE (obstructive sleep apnea) - ICD9: 327.23, ICD10: G47.33 5. Class 3 severe obesity with body mass index (BMI) of 40.0 to 44.9 in adult, unspecified obesity type, unspecified whether serious comorbidity present (HCC) - ICD9: 278.01, V85.41, ICD10: E66.01, Z68.41 Known history of MAURICE, but pt declining any form of therapy. Encouraged weight loss. Encouraged patient to sleep on side. No s/s of tiredness/sleepiness during the day. Hollie Blevins MD PDMP website checked and validated. All prescriptions have been APPROPRIATELY filled. No suspicious activity was identified. 12/18/2023 by Hollie Blevins MD Medical Decision Making: Problems: Moderate: 2+ stable chronic illnesses Data: Unique test result(s) reviewed: 1 Risk: Moderate: Drug management Medical Decision Making Level: 4 - Moderate documented in this encounter [facility] 11-23-2023 Miscellaneous Notes Patient has been identified by name and date of : Yes, Provider Date Time Patient phones for refill(s): Requested Prescriptions Pending Prescriptions Disp Refills omeprazole (PRILOSEC) 40 mg capsule 180 capsule 1 Sig: Take 1 capsule by mouth two times a day. valsartan (DIOVAN) 320 mg tablet 90 tablet 1 Sig: Take 1 tablet by mouth once daily. Date of last office visit in primary care: 08/23/2023 Date of next office visit in primary care: 02/21/2024 Please advise. Thank you. Radha Eisenberg RN. documented in this encounter [facility] 11-14-2023 Miscellaneous Notes Patient has been identified by name and date of : No Patient phones for refill(s): Requested Prescriptions Pending Prescriptions Disp Refills atorvastatin (LIPITOR) 10 mg tablet [Pharmacy Med Name: ATORVASTATIN 10 MG TABLET] 90 tablet 3 Sig: take 1 tablet by mouth once daily Date of last office visit in primary care: 08/23/2023 Date of next office visit in primary care: 02/21/2024 Please advise. Thank you. Beatriz Matute LPN. documented in this encounter [facility] 11-07-2023 History of Presen t illness Narrative CDM Telephonic Outreach Provider Action/FYI CDM: CKD Pt denies symptom changes or needs ADL, Falls, Goals, SDH updated Contacted for: Engagement Contact made with patient: Yes Patient identified by name and date of . Discussed care with patient Outcomes: Patient forgot, reminder given Are you experiencing any new or worsening symptoms you need to talk about today? No Based on title agent, the following disposition is advised: No symptoms or symptoms present, not severe. Routed to: No Action Needed MICKY Education Provided this Outreach: No Hedy Owens RN November 07, 2023 11:17 AM documented in this encounter [facility] 10-30-2023 Miscellaneous Notes Patient has been identified by name and date of : No Patient phones for refill(s): Requested Prescriptions Pending Prescriptions Disp Refills levothyroxine (SYNTHROID) 75 mcg tablet [Pharmacy Med Name: LEVOTHYROXINE 75 MCG TABLET] 90 tablet 1 Sig: take 1 tablet by mouth once daily on an empty stomach Date of last office visit in primary care: 08/23/2023 Date of next office visit in primary care: 02/21/2024 Please advise. Thank you. Beatriz Matute LPN. documented in this encounter [facility] 10-23-[address] - 10/23/2023 11:23 AM EDT Continue three regular meals Limit snacks, keep junk out of the house . Track twice per week, aiming for 1500 calories, try Mynetdiary All meals and snacks at the dinner table; minimize distractions, no TV while eating. Make meals last at least 20 min, chew each bite of food 20 x per bite.Portion out all foods, never eat out of container. Become more mindful of meal: Enjoy flavors, textures etc. Use hunger/fullness scale. Activity as tolerated documented in this encounter [facility] 10-23-2023 History of Presen t illness Narrative Nutritional Therapy Re-Assessment Nutrition Diagnosis: Overweight/obesity, related to, excess energy intake and physical inactivity, as evidenced by BMI above normative standard for age and gender RECOMMENDED MALNUTRITION DIAGNOSIS: NO MALNUTRITION IDENTIFIED NUTRITION CARE PLAN: Nutrition Intervention 10/23/2023: modify type and amount of food or beverage Continue three regular meals Limit snacks, keep junk out of the house . Track twice per week, aiming for 1500 calories, try Mynetdiary All meals and snacks at the dinner table; minimize distractions, no TV while eating. Make meals last at least 20 min, chew each bite of food 20 x per bite.Portion out all foods, never eat out of container. Become more mindful of meal: Enjoy flavors, textures etc. Use hunger/fullness scale. Activity as tolerated Nutrition Monitoring & Evaluation: 1-2 lb weight loss per week Need for Follow up: 4-6 weeks PROGRESS: Interval History: following as relates to class 3 obesity Body mass index is 42.31 kg/m . DM, continues Ozempic for appetite control but could not get in for a week. Also unable to exercise after almost dislocated hip that was replaced, other hip also in pain, hurt should using weights. Meals appropriate, is including providing excess energy. Has been getting out of breath with limited exertion, is to have stress test in December. Nutrition Intervention 09/18/23 Look into Factor meals or healthy frozen meals as an option Clean out the junk, make a point of having healthy foods available, do in the morning; Get back to 3 regular meals of breakfast, lunch and dinner, avoid snacks unless truly hungry. Aim for balanced meals All meals and snacks at the dinner table; minimize distractions, no TV while eating. Make meals last at least 20 min, chew each bite of food 20 x per bite.Portion out all foods, never eat out of container. Become more mindful of meal: Enjoy flavors, textures etc. Use hunger/fullness scale. Aim for at least 30 min cardio most days, even in lower exertions; and 5 min activity every hour and 2 days of weight resistance -try Walt Griffin as an option Actions to implement interventions: Using Factor meals Diet History: Breakfast - coffee, breakfast bar and yogurt Snack - not usually Lunch - part of Factor meal Snack - could have Yasso bar, popcorn, chips Dinner - Factor meal Snack - Could have Yasso bar; one square dark ariel per day, Sugar free; occ smoothie Beverages - water, diet soda if out, 1-2 coffees Alcohol - no Vitamins/Supplements - no change Activity: Activities of Daily Living: ADL's shopping Additional Activity: Lightly active (Light exercise: planned physical activity 1-3 days/week) Some walking Anthropometrics: Height: Last 1 Encounter Ht Readings: Date: Ht: 10/23/2023 170.2 cm (5' 7) Current weight: Last 1 Encounter Wt Readings: Date: Wt: 10/23/2023 122.5 kg (270 lb 2.4 oz) Body mass index is 42.31 kg/m . Resting Metabolic Rate: 1743 Malnutrition Screening Significant unintentional weight loss? No Eating less than 75% of usual intake for more than 2 weeks? No Potential Signs of Inflammation: no identifiable sources Nutritional status: Education Materials Provided: None this visit READINESS TO LEARN Cognitive ability: Alert and oriented Motivation to learn: Interested Family support: Unable to assess - Family not present Instruction provided to: Patient Patient learns best by: Individual Instruction Factors affecting learning: None Physical limitations affecting learning: None Likelihood of Adherence: Moderate Referred/Supervised by: Romy CLEMENTS Billing Type: Re-assess/15 min 2 units SIGNATURE: Radha High RD PATIENT NAME: Kemal Cantu DATE: October 23, 2023 TIME: 11:04 AM documented in this encounter [facility] 10-13-2023 Miscellaneous Notes See other encounter PA completed and approved. Pt notified via my chart. Pharmacy notified. New prescription sent to pharmacy with DM diagnosis. A1c was 6.6 in 2021. Thank you Екатерина Escalante APRN.MICROGRINDER OPERATOR 09/05/23 bob hernandez says rx transferred to [facility]. Do not see a dx of diabetes on problem list. A1c for a year has been less than 6. Not sure how this was previously covered. 09/05/23 tried to complete PA and the response is drug not covered by plan. You wan to try to send new rx? Pt states she was told that a PA for ozempic was completed by office. She states [facility] pharmacy is telling her that they do not have any info regarding PA. Pt has missed 2 doses of med. Please review & contact pt . Katie Arechiga LPN documented in this encounter [facility] 10-13-2023 Miscellaneous Notes My chart message to pt. And pharmacy notified. Unable to completed electronic PA for ozempic 1mg. Completed via covermymeds. This was approved. Kemal Cantu ([place]valcaba: [id number]) Rx #: [id number] Ozempic (1 MG/DOSE) 4MG/3ML pen-injectors Favorable lCaseId:[id number];Status:Approved ;Review Type:Prior Auth;Coverage Start Date:09/13/2023;Coverage End Date:10/12/2024;. Authorization Expiration Date: October 12, 2024. documented in this encounter [facility] 10-12-2023 Miscellaneous Notes Can pharmacist Lelo So calling asking to have the Ozempic rx changed to the 4 mg/3 ml pens please. Pending rx needs completed please. Please advise documented in this encounter [facility] 09-18-[address] - 09/18/2023 10:41 AM EST Look into Factor meals or healthy frozen meals as an option Clean out the junk, make a point of having healthy foods available, do in the morning; Get back to 3 regular meals of breakfast, lunch and dinner, avoid snacks unless truly hungry. Aim for balanced meals All meals and snacks at the dinner table; minimize distractions, no TV while eating. Make meals last at least 20 min, chew each bite of food 20 x per bite.Portion out all foods, never eat out of container. Become more mindful of meal: Enjoy flavors, textures etc. Use hunger/fullness scale. Aim for at least 30 min cardio most days, even in lower exertions; and 5 min activity every hour and 2 days of weight resistance -try Walt Griffin as an option documented in this encounter [facility] 09-18-2023 History of Presen t illness Narrative Nutritional Therapy Re-Assessment Nutrition Diagnosis: Overweight/obesity, related to, excess energy intake and physical inactivity, as evidenced by BMI above normative standard for age and gender RECOMMENDED MALNUTRITION DIAGNOSIS: NO MALNUTRITION IDENTIFIED NUTRITION CARE PLAN: Nutrition Intervention 09/18/2023: modify type and amount of food or beverage Look into Factor meals or healthy frozen meals as an option Clean out the junk, make a point of having healthy foods available, do in the morning; Get back to 3 regular meals of breakfast, lunch and dinner, avoid snacks unless truly hungry. Aim for balanced meals All meals and snacks at the dinner table; minimize distractions, no TV while eating. Make meals last at least 20 min, chew each bite of food 20 x per bite.Portion out all foods, never eat out of container. Become more mindful of meal: Enjoy flavors, textures etc. Use hunger/fullness scale. Aim for at least 30 min cardio most days, even in lower exertions; and 5 min activity every hour and 2 days of weight resistance -try Walt Griffin as an option Nutrition Monitoring & Evaluation: half to 2 lb weight loss per week Need for Follow up: 4-6 weeks PROGRESS: Interval History: Following as relates to class 3 obesity, Body mass index is 42.19 kg/m . Continues Ozempic for appetite control on 1 mg. Had covid in July last 21 days, then a sinus infection and still not feeling well. Could not go to [employer] so has been eating all the cookies and candy for it. Still exhausted after Covid, limited exercise and activity and notes no motivation to follow a plan. No motivation to cook. Has not been checking blood sugars. Weight increase ~10 lbs from last visit, may benefit from increased Ozempic dose, patient will discuss this with her provider. Nutrition Intervention 07/03/23 Look into Daily Selma or Factor 5 for meal options Get back to breakfast, lunch and dinner, avoid snacks (OK for Yasso bar or V8 juice) Easy meal option would be protein drink and fruit, smoothie, healthy soups, healthy frozen meals Start to exercise from a sitting position: 20-25 minutes/session 3-4 x per week: Chair or standing Team Body Project [email or web address] Chair exercise Mail'Inside [email or web address] Ashtyn Delgado Easy walk in place 15 min [email or web address]?[email or web address] fzvC91thfUP Actions to implement interventions: limited Diet History: 105 last couple checks before the holidays Breakfast - coffee, breakfast bar, corn bread, Builder bar, one hour later a yogurt Snack - not usually Lunch - 2-turkey sandwich on roll or tortilla soup; grilled cheese sandwich with tomato; Wrap and smoothie from [employer] Snack - random candy, ariel covered almonds Dinner - yesterday pizza, occ cook then have for 6 meals, chicken and biscuits, cheese burger pie; may have eggs Snack - munchies: popcorn, moose munch, cookies Beverages - water at least 64 oz Alcohol - no Vitamins/Supplements - vit C, magnesium, zinc, D, MVI, iron, CQ10 Activity: Activities of Daily 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 Resting Metabolic Rate: 1744 Malnutrition Screening Significant unintentional weight loss? No Eating less than 75% of usual intake for more than 2 weeks? No Potential Signs of Inflammation: no identifiable sources Nutritional status: Education Materials Provided: None this visit READINESS TO LEARN Cognitive ability: Alert and oriented Motivation to learn: Interested Family support: Unable to assess - Family not present Instruction provided to: Patient Patient learns best by: Individual Instruction Factors affecting learning: None Physical limitations affecting learning: None Likelihood of Adherence: Moderate Referred/Supervised by: Sammi/Samm CLEMENTS Billing Type: Re-assess/15 min 2 units SIGNATURE: Radha High RD PATIENT NAME: Kemal Cantu DATE: September 18, 2023 TIME: 10:17 AM documented in this encounter [facility] 08-23-2023 Instructions Екатерина Escalante APRN.CNP - 08/23/2023 11:03 AM EST Hold vitamins and supplements while on doxycycline. documented in this encounter [facility] 08-23-2023 History of Presen t illness Narrative CC: Patient presents with: Recheck: 3 month follow up DM HPI Kemal Cantu is a 77 year old female who presents today for routine follow up. Has been sick for 3 weeks, COVID positive. Was prescribed paxlovid but ended up not taking. Currently today with sore throat, sinus congestion, cough that occasionally produces yellow to brizuela sputum, and nasal drainage of same color. Denies current fever, chills, wheezing, shortness of breath, chest pressure, dizziness, ear pain, or N/V/D. HTN and CAD: Ms. Cantu indicates that she is feeling well and denies any symptoms referable to elevated blood pressure. Specifically denies headache, chest pain, palpitations, dyspnea, and peripheral edema. Patient denies any side effects of her medication(s) and is compliant with their regimen. She does not check BP's generally. Kemal works out regularly 7 times per week with [employer] sentronicslining stepper machine at home. She watches her diet for sodium, low fat and low cholesterol some of the time. Last 3 Encounter BP Readings: Date: BP: 08/23/2023 132/74 08/04/2023 128/68 05/18/2023 118/78 Hypothyroidism: taking as prescribed. Denies abnormal wegiht or energy changes prior to getting COVID. DIABETES MELLITUS: Ms. Cantu denies excessive thirst or increased frequency of urination, chest pain or dyspnea , numbness, tingling or pain in extremities, new or unusual visual symptoms, low sugar/hypoglycemic reactions, weight loss/gain, lightheadedness/dizziness, and bowel changes/loose stools. Follows a diabetic diet most of the time. She is compliant with medication(s) and is tolerating med(s) without any side effects. She reports checking her glucose on a once a day schedule with sugars in the fasting 105 range. Patient's last HgA1C was Hemoglobin A1C (%) Date Value 05/13/2023 5.3 11/25/2022 5.7 08/18/2021 6.6 05/18/2021 6.1 ) REVIEW OF SYSTEMS See HPI PAST MEDICAL HISTORY Diagnosis Date Diabetes mellitus (HCC) Fibromyalgia Fuchs' corneal dystrophy Gastroesophageal reflux disease Glaucoma HTN (hypertension) Hypothyroidism Irritable bowel syndrome Migraines MAURICE (obstructive sleep apnea) does not use c-pap Osteoarthritis Plantar fasciitis PONV (postoperative nausea and vomiting) Pseudophakia PTSD (post-traumatic stress disorder) Restless leg syndrome Sleep apnea in adult TMJ (dislocation of temporomandibular joint) PAST SURGICAL HISTORY Procedure Laterality Date CATARACT EXTRACTION W/ INTRAOCULAR LENS IMPLANT HX Bilateral 2016 COLONOSCOPY FLX DX W/COLLJ SPEC WHEN PFRMD 06/21/2021 CORNEAL TISSUE DSAEK/DMEK Left 09/30/2019 Dr. Clark ENDOTHELIAL KERATOPLASTY(DMEK) Right 04/17/2019 ENDOTHELIAL KERATOPLASTY/DSAEK Right 03/18/2019 ESOPHAGOGASTRODUODENOSCOPY TRANSORAL DIAGNOSTIC 06/21/2021 PAST SURGICAL HISTORY OF 1972 parathyroid adenoma surgery PAST SURGICAL HISTORY OF 1988 hysterectomy with prolapsed bladder repair PAST SURGICAL HISTORY OF 1992 abdominoplasty PAST SURGICAL HISTORY OF 1993 breast reduction PAST SURGICAL HISTORY OF 1979 deviated septum repair PAST SURGICAL HISTORY OF 1965 D&C after miscarriage PAST SURGICAL HISTORY OF 2013 Total right knee repalcement PAST SURGICAL HISTORY OF 11/2013 total left knee replacement PAST SURGICAL HISTORY OF 2015 rectocele repair with vaginal mesh PAST SURGICAL HISTORY OF 11/01/2015 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 PAST SURGICAL HISTORY OF 2019 DMEK Corneal Transplant-Right eye PAST SURGICAL HISTORY OF Left 10/10/2019 INJECTION, ANTERIOR CHAMBER OF EYE; AIR PAST SURGICAL HISTORY OF Right 1996 cyst removal off right 4 toe PAST SURGICAL HISTORY OF hammer toe surgery PAST SURGICAL HISTORY OF 04/2022 Prolasped vagina PRQ CARDIAC STENT W/ANGIO 1 VSL 03/02/2021 90% blockage RCA SKIN LESION BIOPSY 10/2015 x2 face TOTAL HIP REPLACEMENT Right 03/15/2023 Right Total hip replacement YAG CAPSULOTOMY OD (RIGHT EYE) 2018 YAG CAPSULOTOMY OS (LEFT EYE) 2018 ALLERGIES Bacitracin (Bulk), Codeine, Dust Mites, Gentamicin, Mold, Sulfa (Sulfonamide Antibiotics), Sulfabenzamide, and Tree Pollen-Red Maple MEDICATIONS buPROPion SR (WELLBUTRIN SR) 150 mg 12 hr tablet take 1 tablet by mouth once daily montelukast (SINGULAIR) 10 mg tablet Take 1 tablet by mouth daily at bedtime. fluorometholone (FML LIQUID FILM) 0.1 % ophthalmic suspension instill 1 drop into both eyes twice a day as directed fluorometholone (FML LIQUID FILM) 0.1 % ophthalmic suspension 1 Drop every 4 hours. gabapentin enacarbil (HORIZANT) 300 mg TbER Take 3 tablets by mouth once daily. Take one tablet at 2pm and two tablets at 5pm valsartan (DIOVAN) 320 mg tablet Take 1 tablet by mouth once daily. metFORMIN (GLUCOPHAGE) 500 mg tablet Take 1 tablet by mouth daily with breakfast. pramipexole (MIRAPEX) 0.125 mg tablet Take 2 tablets by mouth three times a day. levothyroxine (SYNTHROID) 75 mcg tablet take 1 tablet by mouth once daily ON AN EMPTY STOMACH semaglutide (OZEMPIC) 1 mg/dose (2 mg/1.5 mL) pen Inject 1 mg subcutaneously one time a week. ZINC ACETATE ORAL Take 50 mg by mouth once daily. (Patient not taking: Reported on 04/24/2023) ascorbic acid, vitamin C, (VITAMIN C) 500 mg tablet Take 1 tablet by mouth twice daily with meals for 27 doses. aspirin, enteric coated (ASPIRIN, ENTERIC COATED) 81 mg EC tablet Take 1 tablet by mouth twice daily for 28 days. acetaminophen (TYLENOL) 500 mg tablet Take 2 tablets by mouth every 8 hours as needed for pain. (Patient not taking: Reported on 05/15/2023) oxyCODONE IR (ROXICODONE) 5 mg immediate release tablet Take 1-2 tablets by mouth every 6 hours as needed for pain. (Patient not taking: Reported on 03/27/2023) Magnesium Oxide 500 mg tab Take 500 mg by mouth once daily. Taking in gummy form LUMIGAN 0.01 % drop ophthalmic drops instill 1 drop into both eyes once daily at bedtime fluticasone (FLONASE) 50 mcg/actuation nasal spray instill 2 sprays into each nostril once daily omeprazole (PRILOSEC) 40 mg capsule take 1 capsule by mouth twice a day atorvastatin (LIPITOR) 10 mg tablet Take 1 tablet by mouth once daily. Lancets lancets Test blood sugar(s) 1 times daily. Dx: Type 2 DM - Controlled E11.9 Insulin: No blood sugar diagnostic (BLOOD GLUCOSE TEST) test strip Test blood sugar(s) 2 times daily. Dx: Type 2 DM - Controlled E11.9 Insulin: No ketoconazole (NIZORAL) 2 % cream Apply to affected area once daily. Used for fungal skin fold rashes ubidecarenone (COENZYME Q10) 100 mg tab Take 200 mg by mouth once daily. simethicone (GAS-X ORAL) Take 125 mg by mouth twice daily. multivit,thx,calcium,iron,mins (MULTIVITAMIN AND MINERAL ORAL) Take 1 tablet by mouth once daily. vitamin K2 100 mcg cap Take 100 mcg by mouth. Zinc 50 mg tab Take 50 mg by mouth. amLODIPine (NORVASC) 2.5 mg tablet Take 2.5 mg by mouth once daily. conjugated estrogens (PREMARIN) vaginal cream Use 0.5 g vaginally two times a week. metoprolol tartrate, short acting, (LOPRESSOR) 50 mg tablet Take 50 mg by mouth once daily. Bifidobacterium infantis (ALIGN ORAL) Take 1 tablet by mouth once daily. diclofenac sodium (VOLTAREN) 1 % topical gel Apply 2 g to affected area four times daily. amoxicillin (POLYMOX, AMOXIL) 500 mg capsule Take 500 mg by mouth. Take 4 capsules 1 hour before dental procedures. ferrous sulfate EC 324 mg (65 mg iron) TbEC Take 324 mg by mouth once daily. Twice a day cholecalciferol (VITAMIN D3) 50 mcg (2,000 unit) tablet Take 2,000 Units by mouth once daily. (Patient not taking: Reported on 06/05/2023) FAMILY HISTORY Problem Relation Age of Onset Heart Mother Diabetes Mother Heart Father Stroke Father Cataract Paternal Grandfather Glaucoma Other Social History Tobacco Use Smoking status: Never Passive exposure: Past Smokeless tobacco: Never Tobacco comments: Second hand smoke (mother) Vaping Use Vaping Use: Never used Substance Use Topics Alcohol use: Yes Alcohol/week: 1.0 standard drink of alcohol Types: 1 Glasses of wine per week Comment: 3-4 glasses of wine per year Drug use: Never PHYSICAL EXAM BP 132/74 Pulse 68 Resp 16 Wt 122.9 kg (271 lb) SpO2 96% BMI 42.44 kg/m General Appearance: well appearing, in no acute distress, alert Pysch: mood and affect broad and appropriate Skin: Skin color, texture, turgor normal for age; Eyes: conjunctiva pink and moist, no icterus, sclera white, non-injected Ears: external ears normal to inspection and palpation, canals clear, Left tympanic membrane normal. , Right tympanic membrane normal Nose/sinus: Nares normal. Septum midline. Mucosa normal. No drainage. Neck: Neck supple, No adenopathy Lymph nodes: No cervical lymphadenopathy and No supraclavicular lymphadenopathy Lungs: Lungs clear to auscultation. No wheezing, rhonchi, rales. Heart: RRR without murmur, gallop, or rubs. No ectopy Health maintenance reviewed with patient: RSV Vaccine(1 - 1-dose 60+ series) Never done Urine Albumin:Creatinine Ratio due on 02/03/2023 Advance Directive Discussion due on 08/14/2023 DTaP,Tdap,Td Vaccine(2 - Td or Tdap) due on 11/17/2023 Covid-19 Vaccine( - 2022- season) due on 05/18/2024 HbA1C due on 11/11/2023 LDL Cholesterol due on 11/26/2023 Diabetic Foot Exam due on 01/27/2024 Serum Creatinine due on 03/16/2024 Dilated Retinal Exam due on 05/01/2024 Annual PCP Team Chronic Disease Visit due on 05/18/2024 BP Controlled (<130/80) due on 08/04/2024 Bone Density Screening Completed Influenza Vaccine Completed Shingrix Vaccine Completed Mammogram Screening Discontinued Colorectal Cancer Screening Discontinued Hepatitis C Screening Discontinued Pneumococcal Vaccine: 65+ Discontinued DATA REVIEWED: No new labs ASSESSMENT/PLAN: 1. Essential hypertension, benign - ICD9: 401.1, ICD10: I10 (primary diagnosis) - Controlled - Continue current medications - Recommend home blood pressure monitoring, to bring results to next visit - Encouraged sodium restriction, DASH or Mediterranean diet - Recommend regular aerobic exercise - COMP METABOLIC PANEL - CBC 2. 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 Acute non-recurrent sinusitis, unspecified location - ICD9: 461.9, ICD10: J01.90 - Will begin treatment with as per antibiotic as written, see orders - Supportive care with plenty of fluids, rest, and analgesia prn. - Follow up in 3-5 days if symptoms persist or worsen. - DOXYCYCLINE HYCLATE 100 MG TABLET 4. Hypothyroidism, unspecified type - ICD9: 244.9, ICD10: E03.9 - Instructed patient on importance of taking on an empty stomach either first thing in the morning or at bedtime. - asymptomatic - TSH BLD 5. Type 2 diabetes mellitus without complication, without long-term current use of insulin (HCC) - ICD9: 250.00, ICD10: E11.9 - Control undetermined, due for labs - Continue current medications - Blood glucose monitoring on a once daily schedule - Counseled on healthy diet and regular exercise - Discussed need for and benefit of weight loss. BMI 42.44 kg/(m^2) - ALBUMIN/CREAT RATIO RND UR - HGB A1C - COMP METABOLIC PANEL - CBC Prescription instructions reviewed with patient as applicable. Potential red flag symptoms discussed with the patient. Reviewed appropriate action plan to take if red flag symptoms occur. Patient agreeable to treatment plan. Екатерина Escalante APRN.CNP documented in this encounter [facility] 07-19-2023 Miscellaneous Notes Patient has been identified by name and date of : Yes Last office visit in this department: Visit date not found RX INSTRUCTIONS: Patient aware RX will be sent to pharmacy. No need to notify patient. Patient phones requesting refills as follows: Requested Prescriptions Pending Prescriptions Disp Refills montelukast (SINGULAIR) 10 mg tablet 90 tablet 3 Sig: Take 1 tablet by mouth daily at bedtime. Please review and advise. Alessia Alczaar documented in this encounter [facility] 07-03-[address] - 07/03/2023 11:12 AM EST Look into Daily Selma or Factor 5 for meal options Get back to breakfast, lunch and dinner, avoid snacks (OK for Yasso bar or V8 juice) Easy meal option would be protein drink and fruit, smoothie, healthy soups, healthy frozen meals Start to exercise from a sitting position: 20-25 minutes/session 3-4 x per week: Chair or standing Team Body Project [email or web address]= [email or web address] Chair exercise Mail'Inside https://www.Mail'Inside.[employer]/reso urce/videos-detail.[email or web address]?video=38 Ashtyn Delgado Easy walk in place 15 min [email or web address]?v= [email or web address] documented in this encounter [facility] 07-03-2023 History of Presen t illness Narrative Nutritional Therapy Re-Assessment Nutrition Diagnosis: Overweight/obesity, related to, excess energy intake and physical inactivity, as evidenced by BMI above normative standard for age and gender RECOMMENDED MALNUTRITION DIAGNOSIS: NO MALNUTRITION IDENTIFIED NUTRITION CARE PLAN: Nutrition Intervention 07/03/2023: modify type and amount of food or beverage Look into Daily Selma or Factor 5 for meal options Get back to breakfast, lunch and dinner, avoid snacks (OK for Yasso bar or V8 juice) Easy meal option would be protein drink and fruit, smoothie, healthy soups, healthy frozen meals Start to exercise from a sitting position: 20-25 minutes/session 3-4 x per week: Chair or standing Team Body Project [email or web address]/watch?v= [email or web address] Chair exercise Mail[employer]Inside https://www.Mail'Inside.[employer]/reso urce/videos-detail.asp?video=38 Ashtyn Delgado Easy walk in place 15 min https://www.RegaloCardube.com/watch?v= [email or web address] Nutrition Monitoring & Evaluation: weight loss or stable weight through the holidays Need for Follow up: 4-6 weeks PROGRESS: Interval History: Following as relates to class 3 obesity Body mass index is 40.63 kg/m . , DM, GERD. Had done well losing weight from 301 to 255 to have hip replacement surgery. This was done 03/15/23. Struggling weightloss, Is sad after brother passed. Intake appears appropriate, incorporating exercise as able, note~3 lbs lost since last visit. Diabetes good control, last HgA1c 5.4. Nutrition Intervention 05/22/23 Look into Daily Selma or Factor 5 for meal options Get back to breakfast, lunch and dinner, avoid snacks (OK for Yasso bar or V8 juice) Easy meal option would be protein drink and fruit, smoothie, healthy soups, healthy frozen meals Start to exercise from a sitting position: 20-25 minutes/session 3-4 x per week: Chair or standing Team Body Project [email or web address]://[email or web address]/watch?v= [email or web address] Chair exercise [employer] [email or web address]/reso salena/videos-detail.[email or web address]?video=38 Ashtyn Delgado Easy walk in place 15 min https://www.RegaloCardube.com/watch?v= [email or web address] Actions to implement interventions: limited Diet History: Breakfast - breakfast bar and yogurt Snack - could be Yasso bar Lunch - [place] sandwich with greens on skinny bagel, WG bread or burger roll; or brioche Snack - depends on timing if early lunch then will have the yasso bar Dinner - salmon; chicken and biscuites, zuchini/veggie cooked with bisquick Snack - yasso bar Beverages - water, diet soda, coffee Alcohol - no Vitamins/Supplements - no change Activity: Activities of Daily Living: varies Additional Activity: Lightly active (Light exercise: planned physical activity 1-3 days/week) Limited, still sore Usually 10-15 min Anthropometrics: Height: Last 1 Encounter Ht Readings: Date: Ht: 07/03/2023 170.2 cm (5' 7) Current weight: Last 1 Encounter Wt Readings: Date: Wt: 07/03/2023 117.7 kg (259 lb 6.4 oz) Body mass index is 40.63 kg/m . Resting Metabolic Rate: 1699 Malnutrition Screening Significant unintentional weight loss? No Eating less than 75% of usual intake for more than 2 weeks? No Potential Signs of Inflammation: no identifiable sources Nutritional status: Education Materials Provided: None this visit READINESS TO LEARN Cognitive ability: Alert and oriented Motivation to learn: Interested Family support: Unable to assess - Family not present Instruction provided to: Patient Patient learns best by: Individual Instruction Factors affecting learning: None Physical limitations affecting learning: None Likelihood of Adherence: Moderate Referred/Supervised by: Romy CLEMENTS Billing Type: Re-assess/15 min 2 units SIGNATURE: Radha High RD PATIENT NAME: Kemal Cantu DATE: July 03, 2023 TIME: 10:55 AM documented in this encounter [facility] 06-05-2023 History of Presen t illness Narrative Marco Hernandez MD Department of Orthopaedics Orthopaedics [address] [facility] [address] Dept: [phone] Dept June 05, 2023 CHIEF COMPLAINT: Post Op of the Right Hip. HPI Patient presents with: Right Hip - Post Op Pt is 11 weeks 5 days post op right DEYSI. She continues to have some pain and use her cane. She also states she has been having pain in right knee. ASSESSMENT: Z96.641 History of right hip replacement (primary encounter diagnosis) Z96.653 History of total bilateral knee replacement SUMMARY/PLAN: She is doing quite well from a hip standpoint. We reviewed some precautions. We reviewed her knee x-rays from last summer. We will see her back at her 1 year follow-up. At that time, we will get new images of all 3 joints. Exam: Walking quite well. Gentle range of motion of the leg is without pain. Healed incision. Imaging: AP pelvis and postop right hip views show appropriate positioning, length, intact prosthesis Supporting Information Below: Medications: Current Outpatient Medications Medication Sig fluorometholone (FML LIQUID FILM) 0.1 % ophthalmic suspension 1 Drop every 4 hours. gabapentin enacarbil (HORIZANT) 300 mg TbER Take 3 tablets by mouth once daily. Take one tablet at 2pm and two tablets at 5pm valsartan (DIOVAN) 320 mg tablet Take 1 tablet by mouth once daily. metFORMIN (GLUCOPHAGE) 500 mg tablet Take 1 tablet by mouth daily with breakfast. pramipexole (MIRAPEX) 0.125 mg tablet Take 2 tablets by mouth three times a day. levothyroxine (SYNTHROID) 75 mcg tablet take 1 tablet by mouth once daily ON AN EMPTY STOMACH semaglutide (OZEMPIC) 1 mg/dose (2 mg/1.5 mL) pen Inject 1 mg subcutaneously one time a week. ascorbic acid, vitamin C, (VITAMIN C) 500 mg tablet Take 1 tablet by mouth twice daily with meals for 27 doses. aspirin, enteric coated (ASPIRIN, ENTERIC COATED) 81 mg EC tablet Take 1 tablet by mouth twice daily for 28 days. buPROPion SR (ZYBAN SR; WELLBUTRIN SR) 150 mg 12 hr tablet take 1 tablet by mouth once daily Magnesium Oxide 500 mg tab Take 500 mg by mouth once daily. Taking in gummy form LUMIGAN 0.01 % drop ophthalmic drops instill 1 drop into both eyes once daily at bedtime fluticasone (FLONASE) 50 mcg/actuation nasal spray instill 2 sprays into each nostril once daily omeprazole (PRILOSEC) 40 mg capsule take 1 capsule by mouth twice a day atorvastatin (LIPITOR) 10 mg tablet Take 1 tablet by mouth once daily. montelukast (SINGULAIR) 10 mg tablet Take 1 tablet by mouth daily at bedtime. ketoconazole (NIZORAL) 2 % cream Apply to affected area once daily. Used for fungal skin fold rashes ubidecarenone (COENZYME Q10) 100 mg tab Take 200 mg by mouth once daily. simethicone (GAS-X ORAL) Take 125 mg by mouth twice daily. multivit,thx,calcium,iron,mins (MULTIVITAMIN AND MINERAL ORAL) Take 1 tablet by mouth once daily. vitamin K2 100 mcg cap Take 100 mcg by mouth. Zinc 50 mg tab Take 50 mg by mouth. amLODIPine (NORVASC) 2.5 mg tablet Take 2.5 mg by mouth once daily. conjugated estrogens (PREMARIN) vaginal cream Use 0.5 g vaginally two times a week. metoprolol tartrate, short acting, (LOPRESSOR) 50 mg tablet Take 50 mg by mouth once daily. Bifidobacterium infantis (ALIGN ORAL) Take 1 tablet by mouth once daily. diclofenac sodium (VOLTAREN) 1 % topical gel Apply 2 g to affected area four times daily. amoxicillin (POLYMOX, AMOXIL) 500 mg capsule Take 500 mg by mouth. Take 4 capsules 1 hour before dental procedures. ferrous sulfate EC 324 mg (65 mg iron) TbEC Take 324 mg by mouth once daily. Twice a day fluorometholone (FML LIQUID FILM) 0.1 % ophthalmic suspension instill 1 drop into both eyes twice a day as directed ZINC ACETATE ORAL Take 50 mg by mouth once daily. (Patient not taking: Reported on 04/24/2023) acetaminophen (TYLENOL) 500 mg tablet Take 2 tablets by mouth every 8 hours as needed for pain. (Patient not taking: Reported on 05/15/2023) oxyCODONE IR (ROXICODONE) 5 mg immediate release tablet Take 1-2 tablets by mouth every 6 hours as needed for pain. (Patient not taking: Reported on 03/27/2023) Lancets lancets Test blood sugar(s) 1 times daily. Dx: Type 2 DM - Controlled E11.9 Insulin: No blood sugar diagnostic (BLOOD GLUCOSE TEST) test strip Test blood sugar(s) 2 times daily. Dx: Type 2 DM - Controlled E11.9 Insulin: No cholecalciferol (VITAMIN D3) 50 mcg (2,000 unit) tablet Take 2,000 Units by mouth once daily. (Patient not taking: Reported on 06/05/2023) No current facility-administered medications for this visit. Allergies: Bacitracin (Bulk), Codeine, Dust Mites, Gentamicin, Mold, Sulfa (Sulfonamide Antibiotics), Sulfabenzamide, and Tree Pollen-Milan Hernandez MD documented in this encounter [facility] 05-29-2023 Miscellaneous Notes Rx signed for new pharmacy. PDMP website checked and validated. All prescriptions have been APPROPRIATELY filled. No suspicious activity was identified. 05/29/2023 by Mable Hull APRN.MICROGRINDER OPERATOR MAGDY: 05/15/23 Edy In Person - 05/15/23 - 09/30/22 Candis F/U: 09/01/23 Current pharmacy prescription was sent to is out of stock. Pended for requested pharmacy. Impression: G25.81 Restless legs (primary encounter diagnosis) E55.9 Vitamin D deficiency E61.1 Iron deficiency 77 yo female who presents for follow up for RLS in need of Mirapex and Horizant refills. Patient states she has been taking Mirapex for decades and has been on as high as 8 tablets a day. The addition of Horizant has aloud her to reduce to 6 tablets per day. She denies SE/ADRs/ and denies SI. She verbalizes understanding of risks and benefits, and discussed augmentation risks. She would like to continue plan of care as is for quality of life measures. Plan: - Refill approved for Mirapex 0.125 mg up to 6 times per day - Refill approved for Horizant 900 mg HS - Additional lab values including ferritin ordered - Continue iron and vitamin D supplements PDMP website checked and validated. All prescriptions have been APPROPRIATELY filled. No suspicious activity was identified. 05/15/2023 by Samira Snow APRN.MICROGRINDER OPERATOR Follow up in 3-6 month(s) with Dr. Blevins at [facility] location Samira Snow APRN.MICROGRINDER OPERATOR SLEEP PHONE Name of caller: Kemal Cantu Relationship to patient : Self In-state or [id number] patient: [place]-State Was permission obtained from patient? Yes Patient identified by Name and Date of . ( Kemal Cantu, 1945). Yes Reason for Call : Patient called regarding her recent Horizant refill. The pharmacy was out and she is now requesting it be sent to [facility] in [address], [place] [address]. Phone #: [phone] Number to return call [phone] Okay to leave a message ? Yes Last office visit 05/15/23 with OSKAR Snow in person Next office visit 09/01/23 with OSKAR Constantino in person documented in this encounter [facility] 05-22-[address] - 05/22/2023 12:40 PM EDT Look into Daily Selma or Factor 5 for meal options Get back to breakfast, lunch and dinner, avoid snacks (OK for Yasso bar or V8 juice) Easy meal option would be protein drink and fruit, smoothie, healthy soups, healthy frozen meals Start to exercise from a sitting position: 20-25 minutes/session 3-4 x per week: Chair or standing Team Body Project [email or web address]= [email or web address] Chair exercise [employer] [email or web address] urce/videos-detail.[email or web address] Ashtyn Matthewse Easy walk in place 15 min [email or web address]://[email or web address]?v= [email or web address] documented in this encounter [facility] 05-22-2023 History of Presen t illness Narrative Nutritional Therapy Re-Assessment Nutrition Diagnosis: Overweight/obesity, related to, excess energy intake and physical inactivity, as evidenced by BMI above normative standard for age and gender RECOMMENDED MALNUTRITION DIAGNOSIS: NO MALNUTRITION IDENTIFIED NUTRITION CARE PLAN: Nutrition Intervention 05/22/2023: modify type and amount of food or beverage Look into Daily [place] or Factor 5 for meal options Get back to breakfast, lunch and dinner, avoid snacks (OK for Yasso bar or V8 juice) Easy meal option would be protein drink and fruit, smoothie, healthy soups, healthy frozen meals Start to exercise from a sitting position: 20-25 minutes/session 3-4 x per week: Chair or standing Team Body Project [email or web address]= [email or web address] Chair exercise [employer] [email or web address]://www.Mail'[email or web address].[employer]/reso urce/videos-detail.[email or web address]?video=38 Ashtyn Matthewse Easy walk in place 15 min https://www.[email or web address]?v= [email or web address] Nutrition Monitoring & Evaluation: weight loss or stable weight Need for Follow up: 6 weeks PROGRESS: Interval History: Following as relates to class 3 obesity Body mass index is 41.04 kg/m ., DM, GERD. Has done very well losing weight from 301 to 255 to have hip replacement surgery. This was done 03/15/23. Weight increased since surgery of 7 lbs due to difficulty shopping and cooking. Foods brought in by people, for a time could not get to store so was eating Ramen noodles . People bring desserts. Exercise limited with pain, can occasional ride exercise bike for min. 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 Resting Metabolic Rate: 1711 Malnutrition Screening Significant unintentional weight loss? No Eating less than 75% of usual intake for more than 2 weeks? No Potential Signs of Inflammation: no identifiable sources Nutritional status: Education Materials Provided: None this visit READINESS TO LEARN Cognitive ability: Alert and oriented Motivation to learn: Interested Family support: Unable to assess - Family not present Instruction provided to: Patient Patient learns best by: Individual Instruction Factors affecting learning: None Physical limitations affecting learning: None Likelihood of Adherence: Moderate Referred/Supervised by: Romy CLEMENTS Billing Type: Re-assess/15 min 2 units SIGNATURE: Radha High RD PATIENT NAME: Kemal Cantu DATE: May 22, 2023 TIME: 12:20 PM documented in this encounter [facility] 04-24-2023 History of Presen t illness Narrative Marco Hernandez MD Department of Orthopaedics Orthopaedics [address] [facility] [address] Dept: [phone] Dept April 24, 2023 CHIEF COMPLAINT: Post Op of the Right Hip. HPI Patient here for 5 weeks 5 days post op Right DEYSI. Patient states she fell 2 weeks ago landing on her left hip. The following day she had increased pain in her right hip and leg. Her pain is getting better every day. She completed home therapy and continuing home exercises. Taking no med's for the pain. X-rays done today. ASSESSMENT: Z96.641 History of right hip replacement (primary encounter diagnosis) SUMMARY/PLAN: Other than an unfortunate couple of falls, she is doing quite well. Pain in the hip is significantly better than preop but slight setback after she has been following. She needs to continue focusing on careful ambulation, physical therapy. We will see her back in 6 weeks. Exam: Walking without antalgia. Healed incision. Imaging: Postoperative hip films look excellent. Ms. Kemal Cantu was advised as to contrast therapies and/or to take analgesics/anti-inflammatories as needed and all contraindications were reviewed. Supporting Information Below: Medications: Current Outpatient Medications Medication Sig semaglutide (OZEMPIC) 1 mg/dose (2 mg/1.5 mL) pen Inject 1 mg subcutaneously one time a week. ascorbic acid, vitamin C, (VITAMIN C) 500 mg tablet Take 1 tablet by mouth twice daily with meals for 27 doses. aspirin, enteric coated (ASPIRIN, ENTERIC COATED) 81 mg EC tablet Take 1 tablet by mouth twice daily for 28 days. acetaminophen (TYLENOL) 500 mg tablet Take 2 tablets by mouth every 8 hours as needed for pain. gabapentin enacarbil (HORIZANT) 300 mg TbER Take 3 tablets by mouth once daily. Take one tablet at 2pm and two tablets at 5pm pramipexole (MIRAPEX) 0.125 mg tablet Take 2 tablets by mouth three times daily. metFORMIN (GLUCOPHAGE) 1,000 mg tablet Take 1 tablet by mouth daily with breakfast. buPROPion SR (ZYBAN SR; WELLBUTRIN SR) 150 mg 12 hr tablet take 1 tablet by mouth once daily LUMIGAN 0.01 % drop ophthalmic drops instill 1 drop into both eyes once daily at bedtime fluticasone (FLONASE) 50 mcg/actuation nasal spray instill 2 sprays into each nostril once daily omeprazole (PRILOSEC) 40 mg capsule take 1 capsule by mouth twice a day atorvastatin (LIPITOR) 10 mg tablet Take 1 tablet by mouth once daily. levothyroxine (SYNTHROID) 75 mcg tablet take 1 tablet by mouth once daily ON AN EMPTY STOMACH Lancets lancets Test blood sugar(s) 1 times daily. Dx: Type 2 DM - Controlled E11.9 Insulin: No blood sugar diagnostic (BLOOD GLUCOSE TEST) test strip Test blood sugar(s) 2 times daily. Dx: Type 2 DM - Controlled E11.9 Insulin: No montelukast (SINGULAIR) 10 mg tablet Take 1 tablet by mouth daily at bedtime. valsartan (DIOVAN) 320 mg tablet Take 1 tablet by mouth once daily. ketoconazole (NIZORAL) 2 % cream Apply to affected area once daily. Used for fungal skin fold rashes ubidecarenone (COENZYME Q10) 100 mg tab Take 200 mg by mouth once daily. simethicone (GAS-X ORAL) Take 125 mg by mouth twice daily. multivit,thx,calcium,iron,mins (MULTIVITAMIN AND MINERAL ORAL) Take 1 tablet by mouth once daily. vitamin K2 100 mcg cap Take 100 mcg by mouth. Zinc 50 mg tab Take 50 mg by mouth. amLODIPine (NORVASC) 2.5 mg tablet Take 2.5 mg by mouth once daily. conjugated estrogens (PREMARIN) vaginal cream Use 0.5 g vaginally two times a week. metoprolol tartrate, short acting, (LOPRESSOR) 50 mg tablet Take 50 mg by mouth once daily. Bifidobacterium infantis (ALIGN ORAL) Take 1 tablet by mouth once daily. diclofenac sodium (VOLTAREN) 1 % topical gel Apply 2 g to affected area four times daily. amoxicillin (POLYMOX, AMOXIL) 500 mg capsule Take 500 mg by mouth. Take 4 capsules 1 hour before dental procedures. ferrous sulfate EC 324 mg (65 mg iron) TbEC Take 324 mg by mouth once daily. cholecalciferol (VITAMIN D3) 50 mcg (2,000 unit) tablet Take 2,000 Units by mouth once daily. ZINC ACETATE ORAL Take 50 mg by mouth once daily. (Patient not taking: Reported on 04/24/2023) oxyCODONE IR (ROXICODONE) 5 mg immediate release tablet Take 1-2 tablets by mouth every 6 hours as needed for pain. (Patient not taking: Reported on 03/27/2023) Magnesium Oxide 500 mg tab Take 500 mg by mouth once daily. (Patient not taking: Reported on 04/24/2023) No current facility-administered medications for this visit. Allergies: Bacitracin (Bulk), Codeine, Dust Mites, Gentamicin, Mold, Sulfa (Sulfonamide Antibiotics), Sulfabenzamide, and Tree Pollen-Milan Hernandez MD documented in this encounter [facility] 04-10-2023 Miscellaneous Notes Noted, I am glad to hear she is doing okay, happy to see her if she has concerns. Patient called in stating that she fell on Monday. She landed on her left hip. Just some tightness and sore. Right hip is fine. She wanted office to know. documented in this encounter [facility] 04-07-2023 History of Presen t illness Narrative CDM Telephonic Outreach Provider Action/FYI CDM: CKD Spk with Pt, 03/15/23 she underwent Right Hip replacement, [facility] Physical Therapy completed on 04/05/23, Pt states using a walker or cane, pain level 2-5 with increased activity, has not used pain medications for one week, denies symptom concerns or needs. Denies sign of infection. My Chart Home Monitoring questionnaire updates provided, Pt verbalized understanding and appreciation for the call ADL's, Falls, Goals completed, CKD Micky education sent Contacted for: Engagement Contact made with patient: Yes Patient identified by name and date of . Discussed care with patient Outcomes: Patient forgot, reminder given Are you experiencing any new or worsening symptoms you need to talk about today? No Based on title agent, the following disposition is advised: No symptoms or symptoms present, not severe. Routed to: No Action Needed MICKY Education Provided this Outreach: Yes Hedy Owens RN April 07, 2023 11:45 AM documented in this encounter [facility] 04-03-2023 Miscellaneous Notes SITUATION: only patient present during today's visit. patient reports the following since the last homecare visit: medications/allergies--no changes, no fall. patient reports she was pretty sore in hip and shoulder from using cane. Has been going back and forth w/ walker and cane. . BACKGROUND: Diagnoses (reason for Home Care): RTHR Weight Bearing/Precaution Changes: no changes ASSESSMENT: Focus of visit cane training including stairs to exit home and outdoor uneven surfaces to get to car. Car transfers. Review of HEP Issued [facility] Plan of care, goals, and visit frequency reviewed and agreed upon with patient and/or caregiver. Current Discharge Plan: independent with home exercise program Anticipate discharge by 04/06/23 RECOMMENDATION: Next visit to focus on PT to see for DC See intervention summary for intervention/education details. documented in this encounter [facility] 03-29-2023 Miscellaneous Notes Patient has been identified by name and date of : Yes, Provider Dr. Chapa Date 03/29/23 Time 12:23 pm Patient phones for refill(s): Requested Prescriptions Pending Prescriptions Disp Refills semaglutide (OZEMPIC) 1 mg/dose (2 mg/1.5 mL) pen 6 mL 3 Sig: Inject 1 mg subcutaneously one time a week. Date of last office visit in primary care: 11/16/22 nex tapt 05/18/23 Last 2 Encounter Wt Readings: Date: Wt: 03/13/2023 115.7 kg (255 lb 2.4 oz) 02/27/2023 117.9 kg (260 lb) Previous labs/tests for medication: Diabetes: Hemoglobin A1C (%) Date Value 11/25/2022 5.7 08/17/2022 5.6 08/18/2021 6.6 05/18/2021 6.1 Thank you. Renee Dominguez LPN documented in this encounter [facility] 03-27-2023 History of Presen t illness Narrative Images from the original note were not included. Ortho Hip Follow Up Note Narrative Referring Provider: Marco Hernandez [address] [facility] [id number] PCP: Helen Chapa MD IMPRESSION/PLAN: Impressions indicate: 77 year old s/p Right Total Hip Replacement completed on 03/15/2023. She is doing very well, only taking Tylenol for pain. Progressing well with PT. Feels as though her pain is much improved since surgery. Recent Surgeries this specialty 03/15/2023 (1w, 5d) ARTHROPLASTY REPLACE JOINT TOTAL HIP (Right) Marco Hernandez MD - Posted PAIN EVALUATION 03/27/2023 0915 Pain Level: 4 Pain Location: Hip-Right Description: Aching Duration Amount of Time: -- post op Frequency: Intermittent Intervention/Comfort measure: Medication;Exercise IMPRESSION: At normal post-operative stage of recovery. PLAN: No new treatment indicated: Routine follow-up with x-rays. Continue current conservative treatment. Patient Reassurance: Progress appears to be with the normal speed of recovery. Follow up 1 month X-Rays Needed 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 With Serious Comorbidity and Body Mass Index (Bmi) of 40.0 to 44.9 in Adult ([facility]) Type 2 Diabetes Mellitus, Without Long-Term Current Use of Insulin ([facility]) Essential Hypertension, Benign Mixed Hyperlipidemia Hypothyroidism Michelle (Iron Deficiency Anemia) Anxiety and Depression Chronic Back Pain Primary Osteoarthritis Involving Multiple Joints Gerd (Gastroesophageal Reflux Disease) Other Irritable Bowel Syndrome Maurice On Cpap Chronic Headache Rls (Restless Legs Syndrome) Fibromyalgia 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 Ckd (Chronic Kidney Disease) Colon Cancer Screening 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 STATUS POST: BMI: There is no height or weight on file to calculate BMI. Post operative recovery was complicated by uneventful/none. Readmission(s) since surgery (90 days post)? No ED Visits & Hospitalizations - Last 180 days 03/15/23 Marco Hernandez MD, ME4S S/P total right hip arthroplasty ..., Admission (Discharged) Patient rates their condition as improving. Does the patient still experience pain? Onset: activity. Location: Right hip: Thigh. Frequency: intermittently. Pain scale: 4. Pain character: ache. Relieving factors: Rest and Ice. Aggravating factors: Prolonged standing and Prolonged sitting. Post Op discharge patient location: in home. Functional Assessment is as follows: is ready to begin outpatient PT. Functional difficulties: None. Pain Medication: Non-narcotic Current Opioids Analgesic Opioid Agonists Start End oxyCODONE IR (ROXICODONE) 5 mg immediate release tablet 03/16/2023 Sig - Route: Take 1-2 tablets by mouth every 6 hours as needed for pain. - ORAL Patient not taking: Reported on 03/27/2023 Earliest Fill Date: 03/16/2023 Physical Therapy Data 11/13/2020 11/16/2020 11/19/2020 Therapist that will oversee plan of care - - Emelyn Dunne Prognosis - - - Prognosis fair - - - Frequency - - Discontinue Therapy Services Duration - - - Total number of visits - - - Planned treatment interventions - - - Plan for next visit consider pallof POC with progression of pallof to home program Pt to continue wtih home exs. she reports good understanding and confidence == EXAM: POST OP HIP == RIGHT POST-OPERATIVE HIP SKIN: Appropriate postop appearance and No evidence of erythema, warmth, discharge or drainage. Range of Motion: Pain Free Neurovascular Status: Sensation Intact, Moves foot and ankle up & down, and 2+ dorsalis pedis Gait: Ambulatory Aid: a walker HIP EXAM: Painless passive ROM right hip IMAGING: X-ray Hips: Post op Implants are well fixed. and There is no evidence of loosening. Provider: Lety Haywood PA-C Completed by: Lety Haywood PA-C AMB ROOMING INTAKE FLOWSHEET DATA Pain Pain Level: 4 Pain Location: Hip-Right Description: Aching Duration Amount of Time: (post op) Frequency: Intermittent Intervention/Comfort measure: Medication, Exercise Patient is 1 week 5 days post op right DEYSI. She is taking tylenol for pain relief. New [facility]-ray today at [facility]. documented in this encounter [facility] 03-27-2023 History of Presen t illness Narrative Radiology Service Progress Note PATIENT NAME: Kemal Cantu DATE OF SERVICE: March 27, 2023 TIME: 9:16 AM PATIENT IDENTITY VERIFICATION COMPLETED USING TWO (2) IDENTIFIERS: Name and Date of confirmed by patient verbally. FALL SCREENING: Has the patient had 2 falls in the last year or 1 fall with injury or currently using an Ambulatory Assistive Device (Walker, Cane, Wheelchair, Crutches, etc.)? Yes, Patient High Risk for Falls What interventions were put in place to prevent falls during this visit? Offered Assistance with Transfers/Clothing, Instructed Patient to Remain Seated (Not on Exam Table) Until Exam, and Increased Observations by Caregivers PATIENT GENDER DATA: Female. status: : No status: NO. PATIENT RELEVANT IMPLANT DATA REVIEWED: Not Applicable RADIOLOGY DEPARTMENT: General X-ray: Exam(s) Completed: Pelvis X-Ray: Pelvis with Hip Right PERIPHERAL IV DATA: Not applicable SIGNED BY: RT Sarai(R) March 27, 2023 9:16 AM documented in this encounter [facility] 03-24-2023 Miscellaneous Notes SITUATION:only patient present during today's visit. patient reports the following since the last homecare visit: medications/allergies--no changes, no fall. patient reports that she is much better today BACKGROUND: Diagnoses (reason for Home Care): NC 03/15/2023 to 03/16/2023. Primary Diagnoses (reason for Home Care): Primary osteoarthritis of Right hip s/p Right total hip arthroplasty. 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 With Serious Comorbidity and Body Mass Index (Bmi) of 40.0 to 44.9 in Adult ([facility]) Type 2 Diabetes Mellitus, Without Long-Term Current Use of Insulin ([facility]) Essential Hypertension, Benign Mixed Hyperlipidemia Hypothyroidism Michelle (Iron Deficiency Anemia) Anxiety and Depression Chronic Back Pain Primary Osteoarthritis Involving Multiple Joints Gerd (Gastroesophageal Reflux Disease) Other Irritable Bowel Syndrome Maurice On Cpap Chronic Headache Rls (Restless Legs Syndrome) Fibromyalgia 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 Ckd (Chronic Kidney Disease) Colon Cancer Screening 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 ([facility]) Gastroesophageal Reflux Disease With Esophagitis Chronic Low Back Pain Vaginal Prolapse Acute Postoperative Pain Lbbb (Left Bundle Branch Block) Urinary Frequency SPECIFIC ORDERS Weight bearing status: Precaution/Activity Restriction Comments: standard Extremity With Weight Bearing Restricted: Right Lower Extremity Right Lower Extremity Weight Bearing Status: WBAT Wound location: RTHA, Wound care:Remove Silverlon POD 7-10 ASSESSMENT: focus visit on: HEP, gait, transfers, hip precautions, bed mob Patient Goal: walk without pain Patient will benefit from continued physical therapy to address the following deficits: strength, balance, gait, transfers, stair negotiation and bed mobility. Current Discharge Plan:independent with home exercise program. Anticipate discharge by 04/08/23 RECOMMENDATION: Next visit to focus on review HEP, gait, transfers, dressing removal See intervention summary for intervention/education details. documented in this encounter [facility] 03-22-2023 Miscellaneous Notes Medication review completed. No ineffective drug therapy, significant side effects, significant drug interactions, duplicate drug therapy, or noncompliance with drug therapy noted. Rehana Guerra RN documented in this encounter [facility] 03-22-2023 Miscellaneous Notes SITUATION:only patient present during today's visit. patient reports the following since the last homecare visit: medications/allergies--no changes, no fall. patient reports that she had a lot of pain after her session on Monday. I think i over did it. I wasn't able to do my exercises yesterday. I just elevated and iced it most of the day and its better this morning . BACKGROUND: Diagnoses (reason for Home Care): NC 03/15/2023 to 03/16/2023. Primary Diagnoses (reason for Home Care): Primary osteoarthritis of Right hip s/p Right total hip arthroplasty. 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 With Serious Comorbidity and Body Mass Index (Bmi) of 40.0 to 44.9 in Adult ([facility]) Type 2 Diabetes Mellitus, Without Long-Term Current Use of Insulin ([facility]) Essential Hypertension, Benign Mixed Hyperlipidemia Hypothyroidism Michelle (Iron Deficiency Anemia) Anxiety and Depression Chronic Back Pain Primary Osteoarthritis Involving Multiple Joints Gerd (Gastroesophageal Reflux Disease) Other Irritable Bowel Syndrome Maurice On Cpap Chronic Headache Rls (Restless Legs Syndrome) Fibromyalgia 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 Ckd (Chronic Kidney Disease) Colon Cancer Screening 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 Incision clean , dry , well approxiamated and healing well with pts permission a photo was uploaded to the chart for MD to review Patient Goal: walk without pain Patient will benefit from continued physical therapy to address the following deficits: strength, balance, gait, transfers, stair negotiation and bed mobility. Current Discharge Plan:independent with home exercise program. Anticipate discharge by 04/08/23 RECOMMENDATION: Next visit to focus on review HEP, gait, transfers, dressing removal See intervention summary for intervention/education details. 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 patient reports the following since the last homecare visit: medications/allergies--no changes, no fall. patient reports bad day yesterday, today is better. BACKGROUND: Diagnoses (reason for Home Care): NC 03/15/2023 to 03/16/2023. Primary Diagnoses (reason for Home Care): Primary osteoarthritis of Right hip s/p Right total hip arthroplasty. 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 With Serious Comorbidity and Body Mass Index (Bmi) of 40.0 to 44.9 in Adult ([facility]) Type 2 Diabetes Mellitus, Without Long-Term Current Use of Insulin ([facility]) Essential Hypertension, Benign Mixed Hyperlipidemia Hypothyroidism Michelle (Iron Deficiency Anemia) Anxiety and Depression Chronic Back Pain Primary Osteoarthritis Involving Multiple Joints Gerd (Gastroesophageal Reflux Disease) Other Irritable Bowel Syndrome Maurice On Cpap Chronic Headache Rls (Restless Legs Syndrome) Fibromyalgia 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 Ckd (Chronic Kidney Disease) Colon Cancer Screening 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 ([facility]) Gastroesophageal Reflux Disease With Esophagitis Chronic Low Back Pain Vaginal Prolapse Acute Postoperative Pain Lbbb (Left Bundle Branch Block) Urinary Frequency SPECIFIC ORDERS Weight bearing status: Precaution/Activity Restriction Comments: standard Extremity With Weight Bearing Restricted: Right Lower Extremity Right Lower Extremity Weight Bearing Status: WBAT Wound location: RTHA, Wound care:Remove Silverlon POD 7-10 ASSESSMENT: focus visit on: HEP, gait, transfers, hip precautions, bed mob Patient Goal: walk without pain Patient will benefit from continued physical therapy to address the following deficits: strength, balance, gait, transfers, stair negotiation and bed mobility. Current Discharge Plan:independent with home exercise program. Anticipate discharge by 04/08/23 RECOMMENDATION: Next visit to focus on review HEP, gait, transfers, dressing removal See intervention summary for intervention/education details. documented in this encounter [facility] 03-17-2023 Miscellaneous Notes SITUATION: son present during today's visit. patient reports the following since the last homecare visit: medications/allergies--no changes, no fall. patient reports im not too bad, its uncomfortable . BACKGROUND: Diagnoses (reason for Home Care): NC 03/15/2023 to 03/16/2023. Primary Diagnoses (reason for Home Care): Primary osteoarthritis of Right hip s/p Right total hip arthroplasty. 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 With Serious Comorbidity and Body Mass Index (Bmi) of 40.0 to 44.9 in Adult ([facility]) Type 2 Diabetes Mellitus, Without Long-Term Current Use of Insulin ([facility]) Essential Hypertension, Benign Mixed Hyperlipidemia Hypothyroidism Michelle (Iron Deficiency Anemia) Anxiety and Depression Chronic Back Pain Primary Osteoarthritis Involving Multiple Joints Gerd (Gastroesophageal Reflux Disease) Other Irritable Bowel Syndrome Maurice On Cpap Chronic Headache Rls (Restless Legs Syndrome) Fibromyalgia 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 Ckd (Chronic Kidney Disease) Colon Cancer Screening 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 Reviewed and explained homecare services. Plan of care, goals, and visit frequency developed, reviewed, and agreed upon with patient and/or caregiver. Patient Goal: walk without pain Patient will benefit from continued physical therapy to address the following deficits: strength, balance, gait, transfers, stair negotiation and bed mobility. Current Discharge Plan:independent with home exercise program. Anticipate discharge by 04/08/23 RECOMMENDATION: Next visit to focus on review HEP , gait, transfers See intervention summary for intervention/education details. See intervention summary for intervention/education details. documented in this encounter [facility] 03-16-2023 Note HNO ID: [id number] Author: Hasmukh (Sprinkler Driver)Teresa Service: Pharmacy Author Type: ? Type: Plan of Care Filed: 03/16/2023 1:42 PM Note Text: PHARMACY BEDSIDE DELIVERY SERVICE Patient Name: Kemal Cantu The marked outpatient medications were Filled at: [place] and delivered to the patient's bedside to [facility] Medication List START taking these medications acetaminophen 500 mg tablet Commonly known as: TYLENOL Take 2 tablets by mouth every 8 hours as needed for pain. X aspirin, enteric coated 81 mg EC tablet Commonly known as: ASPIRIN, ENTERIC COATED Take 1 tablet by mouth twice daily for 28 days. Replaces: LOW-DOSE ASPIRIN ORAL X BLOOD GLUCOSE TEST test strip Generic drug: blood sugar diagnostic Test blood sugar(s) 2 times daily. Dx: Type 2 DM - Controlled E11.9 Insulin: No docusate sodium 100 mg capsule Commonly known as: COLACE Take 1 capsule by mouth twice daily as needed for constipation. X oxyCODONE IR 5 mg immediate release tablet Commonly known as: ROXICODONE Take 1-2 tablets by mouth every 6 hours as needed for pain. X polyethylene glycol 3350 17 gram/dose powder Commonly known as: MIRALAX Take 17 g by mouth once daily as needed for constipation for up to 10 days. Dissolve dose in 4 - 8 ounces of liquid and take as directed. X CHANGE how you take these medications ascorbic acid (vitamin C) 500 mg tablet Commonly known as: VITAMIN C Take 1 tablet by mouth twice daily with meals for 27 doses. What changed: medication strength how much to take when to take this X CONTINUE taking these medications ALIGN ORAL amLODIPine 2.5 mg tablet Commonly known as: NORVASC amoxicillin 500 mg capsule Commonly known as: AMOXIL atorvastatin 10 mg tablet Commonly known as: LIPITOR Take 1 tablet by mouth once daily. buPROPion SR 150 mg 12 hr tablet Commonly known as: ZYBAN SR; WELLBUTRIN SR take 1 tablet by mouth once daily cholecalciferol 50 mcg (2,000 unit) tablet Commonly known as: VITAMIN D3 coenzyme Q10 100 mg Tab diclofenac 1 % topical gel Commonly known as: VOLTAREN Apply 2 g to affected area four times daily. ferrous sulfate EC 324 mg (65 mg iron) Tbec fluticasone 50 mcg/actuation nasal spray Commonly known as: FLONASE instill 2 sprays into each nostril once daily GAS-X ORAL HORIZANT 300 mg Tber Generic drug: gabapentin enacarbil Take 3 tablets by mouth once daily. Take one tablet at 2pm and two tablets at 5pm ketoconazole 2 % cream Commonly known as: NIZORAL Apply to affected area once daily. Used for fungal skin fold rashes Lancets lancets Test blood sugar(s) 1 times daily. Dx: Type 2 DM - Controlled E11.9 Insulin: No levothyroxine 75 mcg tablet Commonly known as: SYNTHROID take 1 tablet by mouth once daily ON AN EMPTY STOMACH LUMIGAN 0.01 % Drop ophthalmic drops Generic drug: bimatoprost instill 1 drop into both eyes once daily at bedtime Magnesium Oxide 500 mg Tab metFORMIN 1,000 mg tablet Commonly known as: GLUCOPHAGE Take 1 tablet by mouth daily with breakfast. metoprolol tartrate (short acting) 50 mg tablet Commonly known as: LOPRESSOR montelukast 10 mg tablet Commonly known as: SINGULAIR Take 1 tablet by mouth daily at bedtime. MULTIVITAMIN AND MINERAL ORAL omeprazole 40 mg capsule Commonly known as: PriLOSEC take 1 capsule by mouth twice a day OZEMPIC 1 mg/dose (2 mg/1.5 mL) pen Generic drug: semaglutide Inject 1 mg subcutaneously one time a week. pramipexole 0.125 mg tablet Commonly known as: MIRAPEX Take 2 tablets by mouth three times daily. PREMARIN vaginal cream Generic drug: conjugated estrogens Use 0.5 g vaginally two times a week. valsartan 320 mg tablet Commonly known as: DIOVAN Take 1 tablet by mouth once daily. vitamin K2 100 mcg Cap Zinc 50 mg Tab You might also be taking other medications not listed above. If you have questions about any of your other medications, talk to the person who prescribed them or your Primary Care Provider. STOP taking these medications clonazePAM 0.5 mg tablet Commonly known as: KlonoPIN LOW-DOSE ASPIRIN ORAL Replaced by: aspirin, enteric coated 81 mg EC tablet Teresa Noe (Sprinkler Driver) PAGER: [phone] March 16, 2023 1:42 PM [facility] 03-16-2023 Miscellaneous Notes Welcome Home Call: [phone] a. Date and Time: 11:47 AM 03/16/2023 b. Contact name/relationship: patient c. Have you been active with any Home Care company in the last 60 days (such as help with bathing, filling medications, checking your blood pressure)? No. d. [facility] will be providing your care, are you agreeable to starting these services? yes (yes or no) e. Do you have any upcoming appointments in the next few days, or restrictions to your schedule? No f. Caregiver: Yes - Caregiver name son Vincenzo Veronica ; spoke with patient to confirm yes g. Confirmed Visited Location and preferred #: Address: yes Phone: yes Please keep our your medications both over the counter and prescribed out for the home care to review, your hospital discharge instructions and write down any questions you might have. In order to maintain a safe environment for our caregivers, [facility] requires any animals or weapons present in the home be located in a secured location. Our clinicians will call you the night before or the morning of the appointment. Their # may come up restricted but they'll leave a VM for you. In case you have any questions or concerns in the meantime, our # is [phone], option 5 Thank you for your time and have a great day. - Patient states she has all DME already RAKEL Tariq documented in this encounter [facility] 03-16-2023 Note HNO ID: [id number] Author: Christiano Loya PA-C Service: Orthopaedic Surgery Author Type: Physician Manager [employer] Type: Progress Notes Filed: 03/16/2023 9:19 AM Note Text: POSTOP NOTE ORTHOPAEDIC SURGERY SERVICE DATE: 03/16/2023 SERVICE TIME: 9:18 AM IMPRESSION/PLAN: S/P Procedure(s) (LRB): ARTHROPLASTY REPLACE JOINT TOTAL HIP (Right) on 03/15/2023 Physical Therapy recommending Home PT WBAT RLE, posterior hip precautions DVT prophylaxis: Intermittent pneumatic compression device (IPCD) and ASA 81 BID Pain control Case Management for discharge planning Plan of care discussed with: Provider, RN, Patient. Patient Active Hospital Problem List: No active hospital problems. POST OPERATIVE COMPLICATIONS: Complicated by uneventful/none SUBJECTIVE: Patient states that they are comfortable Well Controlled hip pain. Denies incisional pain. OBJECTIVE: VITAL SIGNS: BP 130/54 Pulse 61 Temp 36.3 ?C (97.3 ?F) (Temporal Artery) Resp 18 Ht 168.9 cm (5' 6.5) Wt 115.7 kg (255 lb) SpO2 98% BMI 40.54 kg/m? INTAKE AND OUTPUT: Intake/Output Summary (Last 24 hours) at 03/16/2023 0918 Last data filed at 03/15/2023 2220 Gross per 24 hour Intake 3285 ml Output 1100 ml Net 2185 ml LABS: Hemoglobin Date Value Ref Range Status 03/16/2023 11.8 11.5 - 15.5 g/dL Final 02/27/2023 13.2 11.5 - 15.5 g/dL Final Hematocrit Date Value Ref Range Status 02/27/2023 39.7 36.0 - 46.0 % Final 11/25/2022 41.6 36.0 - 46.0 % Final Platelet Count Date Value Ref Range Status 02/27/2023 216 150 - 400 k/uL Final 11/25/2022 213 150 - 400 k/uL Final WBC Date Value Ref Range Status 02/27/2023 4.47 3.70 - 11.00 k/uL Final 11/25/2022 5.21 3.70 - 11.00 k/uL Final Creatinine Date Value Ref Range Status 03/16/2023 0.98 (H) 0.58 - 0.96 mg/dL Final 02/27/2023 0.97 (H) 0.58 - 0.96 mg/dL Final Potassium Date Value Ref Range Status 03/16/2023 4.3 3.7 - 5.1 mmol/L Final 02/27/2023 4.6 3.7 - 5.1 mmol/L Final VTE Prophylaxis: Active VTE Risk Category Order: 03/15/23 1245 VTE RISK CATEGORY: SURGICAL HIGH RISK ([place]) Active VTE Medication Orders: Anticoagulant AND Antiplatelet Medications (From admission, onward) Start Dose Route Frequency Last Action Ordered Stop 03/16/23 0900 aspirin, enteric coated 81 mg tab(s) (Surgical Risk Categories) 81 mg ORAL 2 TIMES DAILY Given, 03/16 91203/15/23 1232 -- Active VTE Prophylaxis Orders: 03/15/23 1245 PNEUMATIC COMPRESSION STOCKINGS ([place]) 03/15/23 1245 ACTIVITY - MOBILIZE PATIENT ([place], [place]) 03/15/23 1245 ACTIVITY - MOBILIZE [place] ([place]) 03/15/23 1245 ACTIVITY - MOBILIZE PATIENT ([place]) PHYSICAL EXAMINATION: Right Lower Extremity: Dorsalis pedis pulses palpable. Posterior tibial pulses palpable. Dorsi flexion 5/5. Plantar flexion 5/5. Extensor hallucis extension: 5/5. Sensory intact to light touch L1-S1. Dressing clean, dry, and intact. Surgical site no drainage and Silverlon intact. Thigh is not swollen, calf is not tender, no signs of DVT or infection Problem Review and Assessment: Skin and Abdominal Wall: Patient monitored, no new events overnight Cardiovascular and Vascular: Patient monitored, no new events overnight Respiratory: Patient monitored, no new events overnight Endocrine and Metabolic: Patient monitored, no new events overnight Gastrointestinal: Patient monitored, no new events overnight Genitourinary and Nephrology: Patient monitored, no new events overnight Behavioral, Cerebrovascular and Nervous: Patient monitored, no new events overnight Infectious: Patient monitored, no new events overnight DATA: Diagnostic tests reviewed for today's visit: Most recent labs and imaging results. SIGNATURE: Christiano Loya PA-C PATIENT NAME: Kemal Cantu DATE: March 16, 2023 TIME: 9:18 AM The patient has undergone major orthopedic surgery and participating in therapy. Pain cannot be managed within an average of 30 MED per day. Patient requiring average of higher than 30 MED per day in order to control pain and allow patient to actively and safely participate in therapy and this is the lowest dose consistent with patient's medical condition. Non-narcotic medication options have been discussed. In addition, the patient has been advised of the benefits and risks of the opioid (including the potential for addiction). Patient demonstrated understanding of risks versus benefits. [facility] 03-16-2023 Note HNO ID: [id number] Author: Dillon Carrasquillo MD Service: General Internal Medicine Author Type: Physician Type: Progress Notes Filed: 03/16/2023 8:53 AM Note Text: INPATIENT CONSULT PROGRESS NOTES Patient Name: Kemal Cantu DATE of SERVICE: 03/16/23 TIME of SERVICE: 8:25 CONSULTING SERVICE: Medicine Plan of care discussed with: Provider, RN, Patient. INTERVAL HPI: Uneventful night, pain is well controlled. Patient seen and examined: Discussed with RN. Vitals/Meds/Labs/U/O reviewed Alert AND Oriented NO nausea,or vomiting NOlight headedness NOshortness of breathe,No chest pain Dry oral mucosa CVS - RRR Lungs - Clear to auscultation Abdomen - soft, Nontender, normal bowel sounds LLE - Ankle No edema RLE - Ankle No edema MEDICATIONS: Current Facility-Administered Medications Medication Dose Route Frequency scopolamine - VERIFY patch OTHER q 8 H scopolamine - REMOVE PATCH OTHER ONCE gabapentin enacarbil TbER 600 mg 600 mg ORAL DAILY AT 9 PM metFORMIN 1,000 mg tab(s) (GLUCOPHAGE) 1,000 mg ORAL DAILY WITH BREAKFAST atorvastatin 10 mg tab(s) (LIPITOR) 10 mg ORAL DAILY valsartan 320 mg tab(s) (DIOVAN) 320 mg ORAL DAILY pramipexole 0.25 mg tab(s) (MIRAPEX) 0.25 mg ORAL TID metoprolol tartrate (short acting) 50 mg tab(s) (LOPRESSOR) 50 mg ORAL DAILY amLODIPine 2.5 mg tab(s) (NORVASC) 2.5 mg ORAL DAILY montelukast 10 mg tab(s) (SINGULAIR) 10 mg ORAL AT BEDTIME magnesium oxide 400 mg tab(s) (MAG-OX) 400 mg ORAL DAILY buPROPion SR 150 mg tab(s) (ZYBAN SR; WELLBUTRIN SR) 150 mg ORAL DAILY levothyroxine 75 mcg tab(s) (SYNTHROID) 75 mcg ORAL DAILY (6 AM) pantoprazole DR 40 mg tab(s) (PROTONIX) 40 mg ORAL BID magnesium hydroxide 400 mg/5 mL 30 mL (MOM) 30 mL ORAL DAILY PRN [START ON 03/17/2023] bisacodyl EC 10 mg tab(s) (DULCOLAX) 10 mg ORAL DAILY aluminum-magnesium hydroxide-simethicone 200-200-20 mg/5 mL 30 mL 30 mL ORAL q 2 H PRN ferrous sulfate 325 mg tab(s) 325 mg ORAL DAILY wLUNCH ascorbic acid (vitamin C) 500 mg tab(s) (VITAMIN C) 500 mg ORAL BID w MEALS senna 17.2 mg tab(s) (SENOKOT) 17.2 mg ORAL AT BEDTIME aspirin, enteric coated 81 mg tab(s) 81 mg ORAL BID acetaminophen 1,000 mg tab(s) (TYLENOL) 1,000 mg ORAL q 8 H traMADol 50 mg tab(s) (ULTRAM) 50 mg ORAL q 6 H PRN oxyCODONE IR 5-10 mg tab(s) (ROXICODONE) 5-10 mg ORAL q 3 H PRN morphine 2 mg injection 2 mg INTRAVENOUS q 2 H PRN latanoprost 0.005 % 1 Drop (XALATAN) 1 Drop BOTH EYES AT BEDTIME gabapentin enacarbil TbER 300 mg 300 mg ORAL Daily fluconazole 100 mg tab(s) (DIFLUCAN) 100 mg ORAL ONCE PHYSICAL EXAM: Patient Vitals for the past 24 hrs: BP Temp Temp src Pulse Resp SpO2 03/16/23 0722 (!) 108/33 36.3 ?C (97.3 ?F) Temporal Art 63 18 98 % 03/16/23 0437 (!) 107/41 36.2 ?C (97.2 ?F) Temporal 63 18 98 % 03/16/23 0010 108/54 36.5 ?C (97.7 ?F) Temporal 80 18 93 % 03/15/23 2031 107/58 36.4 ?C (97.6 ?F) Temporal 78 16 100 % 03/15/23 1533 108/50 36.5 ?C (97.7 ?F) Oral 80 16 96 % 03/15/23 1441 129/65 -- -- 89 -- -- 03/15/23 1433 (!) 79/54 36.4 ?C (97.5 ?F) Oral 89 16 100 % 03/15/23 1319 129/56 36.6 ?C (97.8 ?F) Oral 83 16 97 % 03/15/23 1232 133/52 36.4 ?C (97.6 ?F) Oral 72 18 94 % 03/15/23 1200 148/65 -- -- 71 20 97 % 03/15/23 1145 143/65 -- -- 74 20 96 % 03/15/23 1130 139/61 -- -- 71 23 96 % 03/15/23 1115 125/63 -- -- 72 19 100 % 03/15/23 1100 137/67 -- -- 78 18 100 % 03/15/23 1056 133/78 36.6 ?C (97.9 ?F) Temporal 78 17 99 % Body mass index is 40.54 kg/m?. DATA: CBC: Recent Labs 03/16/23 0529 HB 11.8 Coags: No results for input(s): PT, INR, APTT in the last 24 hours. CMP: Recent Labs 03/16/23 0529 NA 137 K 4.3 CHLOR 102 CO2 28 BUN 25* CREAT 0.98* GLUC 141* CA 9.5 ANION 7* ASSESSMENT AND PLAN: A. OA S/P - Total Hip Unilateral: right,DVT prophylaxis with aspirin Continue PT/OT Diabetes mellitus type 2, continue metformin and Ozempic Anxiety/depression is stable GERD currently on PPI coronary artery disease continue statins hypertension Hold Diovan today hypothyroidism currently on Synthroid Obstructive sleep apnea currently not using a CPAP possible discharge today Home-going meds reviewed. 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 leader and patient Staffing MANAGER RN: Scott Willis APRN.MANAGER RN Performed by: MANAGER RN Indications and Patient Condition Indications for airway management: anesthesia Preoxygenated: yes anesthesia circuit Patient position: sniffing Method: asleep Cricoid Pressure: No Manual In-Line Stabilization: No Difficult Mask: No Final Airway Details Final airway type: endotracheal airway Final Endotracheal Airway: ETT Cuffed: yes Successful intubation technique: direct laryngoscopy Endotracheal tube insertion site: oral Blade: Vicki Blade size: #4 ETT size (mm): 7.0 Measured from: lips Measurement (cm): 22 Placement verified by: capnometry Cormack-Lehane Classification: grade III - view of epiglottis only Number of attempts at approach: 1 Failed airway: no Unrecognized esophageal intubation: no Airway not difficult SIGNATURE: Scott Willis APRN.CRNA PATIENT NAME: Kemal Cantu DATE: March 15, 2023 TIME: 8:04 AM CSN: [id number] [facility] 02-27-2023 Instructions Karen Mcdaniel PA-C - 02/27/2023 10:45 AM EDT PATIENT PREOPERATIVE INSTRUCTIONS Marco Hernandez MD has scheduled you for your procedure at this surgery center: [facility]: [phone] -- [address] [address]. Please read below carefully for your personalized instructions. Arrival Time for Surgery: - The Surgery Center or hospital where you are having surgery will call the afternoon before surgery (or Monday for Monday surgery) with a scheduled arrival time. - If you have not heard by 4 pm, please contact the surgery center above. Please be aware that emergency situations arise, which may delay or change your surgical time. If this happens, we will notify you as soon as possible and regret any inconvenience. Dietary Restrictions: - No solid food after midnight. - You may have 12 ounces of clear liquids (water, clear juices such as apple juice or gatorade, carbonated beverages, clear tea, black coffee, jello) until 2 hours before scheduled arrival at facility. - Do not drink any alcohol after midnight the night before your surgery. Is Patient Diabetic:Yes Preoperative Instructions for Patient's with Diabetes Mellitus Diabetic Medication Instructions:Please take the following meds at your usual dose the day before surgery. DO NOT TAKE THE MORNING OF SURGERY; Trajenta, Metformin, Actos/Pioglitazone and Amaryl/Glimepiride. For the following Meds, please HOLD 2 DAYS PRIOR TO SURGERY: Glucotrol/Glipizide, Januvia/Sitagliptin, Glyburide, Prandin/Repaglinide, Starlix/Nateglinide,Symlin/Praml intide, Dulaglutide/Trulicity, Exenatide (Bydureon/Byetta), Semaglutide (Ozempic, Rybelsus), Laraglutide (Victoza/Saxenda), Lixsenstide (Adlyxin). Insulin Medication Instructions:N/A Medications: Unless instructed differently below, stay on all of your medications until your surgery. Approved medications to take the morning of surgery with a sip of water: buPROPion XL (WELLBUTRIN XL), omeprazole magnesium (PRILOSEC ORAL), levothyroxine sodium (LEVOTHYROXINE ORAL), amLODIPine (NORVASC), metoprolol, aspirin DO NOT TAKE YOUR Valsartan THE NIGHT BEFORE OR MORNING OF SURGERY. If you start any new medications after today's visit, please contact the surgeon's office. Blood Thinning Medications: - Stop NSAIDS (Ibuprofen, Advil, Aleve, Motrin, Celebrex, Mobic, etc.) 7 days before surgery, as directed by your surgeon. - Do NOT stop aspirin or other anticoagulants without consulting with your systems admin or prescribing physician. - Stop Vitamin E, ALL multi-vitamins, herbals and dietary supplements 7 days before surgery. - You may take Tylenol (Acetaminophen) or any of your pain medications that do not contain aspirin or NSAIDS as needed. Important Reminders: - If you use CPAP/BIPAP, bring the machine with you to the surgery center. - If you are prescribed inhalers for breathing, continue using them. - Candy, mints, and tobacco products are NOT permitted the morning of surgery. - Hearing aids, dentures and glasses may be worn the morning of surgery. - NO jewelry, body piercings, makeup, hairpins or contacts are to be worn the day of surgery. If you develop symptoms such as a fever, cold, or flu, or have other changes to your health within TWO DAYS of scheduled surgery or the morning of surgery, please contact the surgery center above. Personal Belongings: -Please have photo ID and insurance cards. -If you do not have a copy of advance directives on file with us, please bring a copy with you on the day of surgery. - Leave ALL valuables and money at home or with family members. If you already have an Advance Directive, please fax a copy to [phone] or email to for it to be added to your chart. If you do not have an Advance Directive, you can find the appropriate form and more information at [email or web address]. We recommend that you complete the Advance Directive form found on the website and bring it with you the day of your surgery. It can be witnessed and scanned into your chart that day. Karen Mcdaniel PA-C documented in this encounter [facility] 02-27-2023 History and physical note Images from the original note were not included. HISTORY AND PHYSICAL EXAMINATION SERVICE DATE: 02/24/2023 SERVICE TIME: 11:37 AM PRIMARY CARE PHYSICIAN: Helen Chapa MD REASON FOR VISIT: Kemal Cantu is a 77 year old female who is scheduled for Procedure(s): ARTHROPLASTY REPLACE JOINT TOTAL HIP (Right) at the request of Dr. Marco Hernandez for consultation. My final recommendation will be communicated back to the requesting physician by way of shared medical record or letter. Subjective The patient has the following: 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 With Serious Comorbidity and Body Mass Index (Bmi) of 40.0 to 44.9 in Adult (Hcc) Type 2 Diabetes Mellitus, Without Long-Term Current Use of Insulin (Hcc) Essential Hypertension, Benign Mixed Hyperlipidemia Hypothyroidism Michelle (Iron Deficiency Anemia) Anxiety and Depression Chronic Back Pain Primary Osteoarthritis Involving Multiple Joints Gerd (Gastroesophageal Reflux Disease) Other Irritable Bowel Syndrome Maurice On Cpap Chronic Headache Rls (Restless Legs Syndrome) Fibromyalgia 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 Ckd (Chronic Kidney Disease) Colon Cancer Screening 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 (Hcc) Gastroesophageal Reflux Disease With Esophagitis Chronic Low Back Pain Vaginal Prolapse Acute Postoperative Pain Lbbb (Left Bundle Branch Block) Urinary Frequency COVID-19 Immunization Status Overdue - COVID-19 VACCINE (4 - Moderna series) Overdue since 11/23/2021 02/11/2022 Postponed until 02/11/2023 by Екатерина Escalante APRN.MICROGRINDER OPERATOR (Declined at this time) 09/28/2021 Imm Admin: COVID-19 original vaccine, full dose, monovalent (MODERNA) 09/03/2021 Postponed until 09/03/2022 by Екатерина Escalante APRN.MICROGRINDER OPERATOR (Declined at this time) Only the first 3 history entries have been loaded, but more history exists. CHIEF COMPLAINT: Pre-anesthesia optimization HPI: Kemal Cantu is a 77 year old female presenting for pre-anesthesia consultation. Pt has history of DJD with severe pain and difficulty with ADLs. Reports hip pain x last 1.5 yrs. Reports weight loss in preparation for surgery. Above procedure recommended to manage symptoms. Procedure scheduled on 03/15/2023 at [place]. REVIEW OF SYSTEMS: General: No weight loss, malaise or fevers. Neurological: + RLS, + Fibromyalgia Positive for: headaches. Negative for: multiple sclerosis, Parkinson's disease, seizures and strokes. Respiratory: Positive for: obstructive sleep apnea and CPAP/BiPAP noncompliant. Negative for: asthma, COPD, current cough, dyspnea, tobacco use and URI < 2 weeks. Cardiovascular: + LBBB Positive for: CAD, hyperlipidemia, hypertension and murmur/valvular heart disease (reports MVP) Patient's last office visit The following tests and/or procedures were performed: cardiac catheterization, cardiac stress test, echocardiogram and cardiac stents. Negative for: arrhythmia, atrial fibrillation, chest pain and DVT/PE. GI: Positive for: GERD and irritable bowel syndrome (diarrhea) Negative for: dysphagia, inflammatory bowel disease, liver disease and ETOH >2 drinks/day. : S/p bladder prolapse repair Positive for: frequent urination (reports infantile bladder), nocturia >1 time per night, renal failure and urgency. Negative for: dysuria, urinary incontinence, nephrolithiasis and urinary tract infection. OFFICE ASSOCIATE: H/o hysterectomy Endocrine: Positive for: diabetes mellitus and hypothyroidism. Patient's diabetes mellitus is controlled by oral agents and + ozempic. Negative for: steroid for chronic problem. Hematology: Positive for: anemia, iron deficiency anemia and chronic anti-coagulation/platelet meds. Patient is on anti-coagulation/platelet medication(s): Aspirin. Oncology: No history of CA metastasis, chemo within 30 days, or radiotherapy within 90 days. No history of oncological symptoms or problems. Psych: Positive for: depression. Negative for: anxiety. Musculoskeletal: See HPI. Positive for: back pain (lumbar stenosis). Skin: Negative for lesions, rash and itching. PAST MEDICAL HISTORY Diagnosis Date Diabetes mellitus (HCC) Fibromyalgia Fuchs' corneal dystrophy Gastroesophageal reflux disease Glaucoma HTN (hypertension) Hypothyroidism Irritable bowel syndrome Migraines MAURICE (obstructive sleep apnea) does not use c-pap Osteoarthritis Plantar fasciitis PONV (postoperative nausea and vomiting) Pseudophakia PTSD (post-traumatic stress disorder) Restless leg syndrome Sleep apnea in adult TMJ (dislocation of temporomandibular joint) PAST SURGICAL HISTORY Procedure Laterality Date CATARACT EXTRACTION W/ INTRAOCULAR LENS IMPLANT HX Bilateral 2016 COLONOSCOPY FLX DX W/COLLJ SPEC WHEN PFRMD 06/21/2021 CORNEAL TISSUE DSAEK/DMEK Left 09/30/2019 Dr. Clark ENDOTHELIAL KERATOPLASTY(DMEK) Right 04/17/2019 ENDOTHELIAL KERATOPLASTY/DSAEK Right 03/18/2019 ESOPHAGOGASTRODUODENOSCOPY TRANSORAL DIAGNOSTIC 06/21/2021 PAST SURGICAL HISTORY OF 1972 parathyroid adenoma surgery PAST SURGICAL HISTORY OF 1988 hysterectomy with prolapsed bladder repair PAST SURGICAL HISTORY OF 1992 abdominoplasty PAST SURGICAL HISTORY OF 1993 breast reduction PAST SURGICAL HISTORY OF 1979 deviated septum repair PAST SURGICAL HISTORY OF 1966 D&C after miscarriage PAST SURGICAL HISTORY OF 2013 Total right knee repalcement PAST SURGICAL HISTORY OF 11/2013 total left knee replacement PAST SURGICAL HISTORY OF 2015 rectocele repair with vaginal mesh PAST SURGICAL HISTORY OF 11/01/2015 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 PAST SURGICAL HISTORY OF 2019 DMEK Corneal Transplant-Right eye PAST SURGICAL HISTORY OF Left 10/10/2019 INJECTION, ANTERIOR CHAMBER OF EYE; AIR PAST SURGICAL HISTORY OF Right 1996 cyst removal off right 4 toe PAST SURGICAL HISTORY OF hammer toe surgery PAST SURGICAL HISTORY OF 04/2022 Prolasped vagina PRQ CARDIAC STENT W/ANGIO 1 VSL 03/02/2021 90% blockage RCA SKIN LESION BIOPSY 10/2015 x2 face YAG CAPSULOTOMY OD (RIGHT EYE) 2018 YAG CAPSULOTOMY OS (LEFT EYE) 2018 FAMILY HISTORY Problem Relation Age of Onset Heart Mother Diabetes Mother Heart Father Stroke Father Cataract Paternal Grandfather Glaucoma Other Social History Tobacco Use Smoking status: Never Smokeless tobacco: Never Tobacco comments: Second hand smoke (mother) Vaping Use Vaping Use: Never used Substance Use Topics Alcohol use: Yes Alcohol/week: 1.0 standard drink of alcohol Types: 1 Glasses of wine per week Comment: 3-4 glasses of wine per year Drug use: Never Prior to Admission medications as of 02/27/23 1042 Medication Sig Last Dose Taking metFORMIN (GLUCOPHAGE) 1,000 mg tablet Take 1 tablet by mouth daily with breakfast. Taking Yes buPROPion SR (ZYBAN SR; WELLBUTRIN SR) 150 mg 12 hr tablet take 1 tablet by mouth once daily Taking Yes Magnesium Oxide 500 mg tab Take by mouth once daily. Taking Yes pramipexole (MIRAPEX) 0.125 mg tablet Take 1 tablet by mouth four times daily. Taking Yes LUMIGAN 0.01 % drop ophthalmic drops instill 1 drop into both eyes once daily at bedtime Taking Yes fluticasone (FLONASE) 50 mcg/actuation nasal spray instill 2 sprays into each nostril once daily Taking Yes gabapentin enacarbil (HORIZANT) 300 mg TbER Take 3 tablets by mouth once daily. Take one tablet at 2pm and two tablets at 5pm Taking Yes omeprazole (PRILOSEC) 40 mg capsule take 1 capsule by mouth twice a day Taking Yes atorvastatin (LIPITOR) 10 mg tablet Take 1 tablet by mouth once daily. Taking Yes levothyroxine (SYNTHROID) 75 mcg tablet take 1 tablet by mouth once daily ON AN EMPTY STOMACH Taking Yes Lancets lancets Test blood sugar(s) 1 times daily. Dx: Type 2 DM - Controlled E11.9 Insulin: No Taking Yes semaglutide (OZEMPIC) 1 mg/dose (2 mg/1.5 mL) pen Inject 1 mg subcutaneously one time a week. Taking Yes montelukast (SINGULAIR) 10 mg tablet Take 1 tablet by mouth daily at bedtime. Taking Yes valsartan (DIOVAN) 320 mg tablet Take 1 tablet by mouth once daily. Taking Yes ketoconazole (NIZORAL) 2 % cream Apply to affected area once daily. Used for fungal skin fold rashes Taking Yes ubidecarenone (COENZYME Q10) 100 mg tab Take 200 mg by mouth once daily. Taking Yes simethicone (GAS-X ORAL) Take 125 mg by mouth twice daily. Taking Yes multivit,thx,calcium,iron,mins (MULTIVITAMIN AND MINERAL ORAL) Take by mouth. Taking Yes vitamin K2 100 mcg cap Take 100 mcg by mouth. Taking Yes Zinc 50 mg tab Take 50 mg by mouth. Taking Yes amLODIPine (NORVASC) 2.5 mg tablet Take 2.5 mg by mouth once daily. Taking Yes conjugated estrogens (PREMARIN) vaginal cream Use 0.5 g vaginally two times a week. Taking Yes metoprolol tartrate, short acting, (LOPRESSOR) 50 mg tablet Take 50 mg by mouth once daily. Taking Yes Bifidobacterium infantis (ALIGN ORAL) Take 1 tablet by mouth once daily. Taking Yes LOW-DOSE ASPIRIN ORAL Take 81 mg by mouth once daily. Taking Yes blood sugar diagnostic (ONETOUCH ULTRA TEST) test strip Test blood sugar once a day DX: E11.9 Taking Yes diclofenac sodium (VOLTAREN) 1 % topical gel Apply 2 g to affected area four times daily. Taking Yes amoxicillin (POLYMOX, AMOXIL) 500 mg capsule Take 500 mg by mouth. Take 4 capsules 1 hour before dental procedures. Taking Yes ascorbic acid, vitamin C, (VITAMIN C) 250 mg tablet Take 250 mg by mouth once daily. Taking Yes ferrous sulfate EC 324 mg (65 mg iron) TbEC Take 324 mg by mouth once daily. Taking Yes cholecalciferol (VITAMIN D3) 50 mcg (2,000 unit) tablet Take 2,000 Units by mouth once daily. Taking Yes clonazePAM (KLONOPIN) 0.5 mg tablet Take 1/2 to 1 tablet at bedtime as needed. Patient not taking: Reported on 12/12/2022 blood sugar diagnostic (BLOOD GLUCOSE TEST) test strip Test blood sugar(s) 2 times daily. Dx: Type 2 DM - Controlled E11.9 Insulin: No Patient not taking: No sig reported No medication comments found. ALLERGIES Allergen Reactions Bacitracin (Bulk) Hives Codeine Unknown Dust Mites Other: See Comments Gentamicin Swelling redness of eye watery and itching Mold Unknown Sulfa (Sulfonamide * Other: See Comments redness Sulfabenzamide Hives Tree Pollen-Red Map* Shortness of Breath Objective PHYSICAL EXAM: General: alert and oriented and obese. Pertinent negatives noted - not distressed. Skin: normal color, no rash or lesions. HEENT: EOM intact and pupils equal round. Pertinent negatives noted - no carotid bruit. Cardiovascular: regular rate and rhythm, normal S1 and S2, no rub, murmurs, or gallop. Respiratory: normal breath sounds, no wheezes or crackles. No chest wall deformity or tenderness. Abdomen: soft. Pertinent negatives noted - not tender. Extremities: Positive for joint tenderness. Pertinent negatives noted - no edema. Neurological: normal cognition and motor skills. Positive for abnormal gait. PAIN ASSESSMENT: Pain Pain Level: 6 Pain Location: Hip-Right Description: Sharp, Aching, Shooting, Radiating Duration Amount of Time: 1.5 Duration Units: Years Frequency: Continuous Intervention/Comfort measure: Medication VITALS: BP 138/74 Pulse 63 Temp (Src) 97.2 (Temporal) Resp 16 Ht 5' 6.5 (1.69m) Wt 260 lb (117.9kg) SpO2 96% BMI 41.34 kg/(m^2). Diagnostic tests reviewed for today's visit: Lab Value Units Date High Low HB 13.2 g/dL 02/27/2023 15.5 11.5 HCT 39.7 % 02/27/2023 46.0 36.0 WBC 4.47 k/uL 02/27/2023 11.00 3.70 PLT 216 k/uL 02/27/2023 400 150 NA 138 mmol/L 11/25/2022 144 136 K 4.1 mmol/L 11/25/2022 5.1 3.7 GLUC 102 mg/dL 11/25/2022 99 74 BUN 17 mg/dL 11/25/2022 21 7 CREAT 0.95 mg/dL 11/25/2022 0.96 0.58 PTSEC No results within date range. INR No results within date range. APTT No results within date range. ALT 16 U/L 11/25/2022 38 7 AST 19 U/L 11/25/2022 35 13 TBILI 0.2 mg/dL 11/25/2022 1.3 0.2 TSH 2.130 mIU/L 11/25/2022 4.200 0.270 Lab Value Units Date High Low HCGQT No results within date range. UHCG No results within date range. HCG, BODY* No results within date range. Lab Value Units Date High Low ABORHD No results within date range. ABSCREEN No results within date range. Hemoglobin A1C (%) Date Value 11/25/2022 5.7 08/17/2022 5.6 02/03/2022 5.7 08/18/2021 6.6 05/18/2021 6.1 03/19/2021 7.1 02/12/2021 7.8 10/28/2020 6.9 No results found for this or any previous visit (from the past 8760 hour(s)). No results found for this or any previous visit (from the past 47614 hour(s)). Assessment Patient has the following medical conditions which may affect [place]-operative course: Chronic headache Assessment: Stable on RX prn RLS (restless legs syndrome) Assessment: Stable on RX Fibromyalgia Assessment: Stable on RX Essential hypertension, benign Assessment: BP today in clinic 138/74. Stable on RX. Mixed hyperlipidemia Assessment: Stable on RX 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) Assessment: Denies any new or worsening cardiac symptoms. Follows systems admin, Dr. Fitch, last OV 10/07/22. Reports compliance to medication. Hx of stents 03/02/21. Recent cardiac testing ekg 05/05, echo 03/03, stress 05/05- see scanned note. Ejection Fraction - Result: 65 % Date: 03/03 LBBB (left bundle branch block) Assessment: noted on previous EKG, follows with OSH cards, MAGDY 10/06- see scanned notes 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 Assessment: doesn't wear CPAP GERD (gastroesophageal reflux disease) Assessment: Stable on RX Other irritable bowel syndrome Assessment: diarrhea, follows with GI CKD (chronic kidney disease) Assessment: Follows nephrology. BMP Latest Ref Rng & Units 11/25/2022 08/17/2022 04/13/2022 GLUCOSE 74 - 99 mg/dL 102(H) 100(H) 118(H) BUN 7 - 21 mg/dL 17 14 19 CREATININE 0.58 - 0.96 mg/dL 0.95 0.90 0.80 SODIUM 136 - 144 mmol/L 138 139 138 POTASSIUM 3.7 - 5.1 mmol/L 4.1 4.3 4.3 CHLORIDE 97 - 105 mmol/L 102 102 103 CO2 22 - 30 mmol/L 27 27 23 ANION GAP 9 - 18 mmol/L 9 10 12 CALCIUM, TOTAL 8.5 - 10.2 mg/dL 9.5 9.7 10.1 eGFR >=60 mL/min/1.73m 62 66 76 EGFR- - - - - EGFR-ALL OTHER RACES . - - - Type 2 diabetes mellitus, without long-term current use of insulin (HCC) Assessment: Reports compliance to medication. Reports BS checks infrequently. Following with PCP. Encouraged lifestyle modifications. Hemoglobin A1C (%) Date Value 11/25/2022 5.7 08/17/2022 5.6 08/18/2021 6.6 05/18/2021 6.1 ) Hypothyroidism Assessment: Stable on RX MICHELLE (iron deficiency anemia) Assessment: on daily supplementation Hemoglobin (g/dL) Date Value 02/27/2023 13.2 04/09/2021 11.8 Hematocrit (%) Date Value 02/27/2023 39.7 04/09/2021 35.5 WBC (k/uL) Date Value 02/27/2023 4.47 04/09/2021 4.85 Chronic back pain Assessment: reports sleeping in chair due to back pain, denies SOB with laying flat, no surgeries Anxiety and depression Assessment: Stable on RX, denies concerning symptoms Class 3 severe obesity due to excess calories with serious comorbidity and body mass index (BMI) of 40.0 to 44.9 in adult (HCC) Assessment: Body mass index is 41.34 kg/m . Urinary frequency Assessment: reports chronic frequency and urgency due to infantile bladder Fox Activity Status Index: METS: Climb a flight of stairs or walk up a hill (5.50 METs) DASI Score: 5.5 Patient denies any chest pain or undue shortness of breath with the above physical activity. Clinical Frailty Scale: 3. Well, with treated comorbid disease STOP-Bang Score: STOP-Bang Score: (+ MAURICE, doesn't use CPAP) [id number] Score: Age: >=75 Sex: female CHF history: No Hypertension history: Yes Vascular disease history: No Diabetes history: Yes [id number] Score: 5 ARISCAT Score: Age: 51-80 Preoperative SpO2: >=96% Respiratory infection in the last month: No Preoperative anemia: Yes Surgical incision: peripheral Duration of surgery: 2-3 hrs Emergency procedure: No ARISCAT Score: 30 ASA Class: 3 ANESTHESIA FINDINGS: Intubation History: No history of difficult intubation. No abnormal airway history Significant Anesthesia Considerations: potential postop nausea/vomiting Airway History: No history of difficult airway No abnormal airway history 05/05: I - PHYSICAL EVALUATION AIRWAY Patient intubated: No. Tracheostomy tube not present Mallampati: II. TM distance: >3 FB. Neck ROM: full ROM without neurological symptoms. Mouth opening: adequate. Short neck: no. Thick neck: no Lip Bite Test: II DENTAL Additional comments: + crowns. II - ANESTHESIA PLAN ASA Score: 3 Anesthetic Plan: other Anesthetic plan additional comments: *PACC/TCI - anesthesia choice. Beta Katina Monitoring Plan Post Procedure Analgesic Plan Prepared for Surgery: optimally prepared for surgery, pending [see comment]. Labs, MAGDY from [facility] systems admin scanned into chart CONSULTS: Patient does not require consults for optimization at this time Planned Anesthetic: other anesthesia choice The Following Tests/Procedures Have Been Initiated: Orders Placed This Encounter CBC with Differential Standing Status: Future Number of Occurrences: 1 Standing Expiration Date: 04/29/2023 CMP Standing Status: Future Number of Occurrences: 1 Standing Expiration Date: 04/29/2023 Type and Screen, 30 day Standing Status: Future Number of Occurrences: 1 Standing Expiration Date: 04/29/2023 Instructions Given to Patient: Instructions located in the after visit summary. Patient given verbal and written preop instructions and voices comprehension and compliance. SIGNATURE: Karen Mcdaniel PA-C PATIENT NAME: Kemal Cantu DATE: February 24, 2023 TIME: 11:09 AM PAGER/CONTACT #: February 27, 2023 1:07 PM Labs reviewed. OK to proceed with procedure. Karen Mcdaniel PA-C documented in this encounter [facility] 02-21-2023 Miscellaneous Notes TOTAL JOINT COMPLETE CARE PROGRAM PRE-OPERATIVE TEACHING Service Date: 02/21/2023 Service Time: 3:10 PM Date of : 1945 Gender: female Date of Surgery: 03/15/23 Procedure: Right Total Hip Replacement Complete Care Program was discussed with the patient: Lead Refiner Identification: Patient identified a point of care technician to help when discharged to home: son coming out from [place] on 03/18/23 , other son local Home Environment: Home Layout: 2 story, Entry Steps: 6 with rail , Bedroom Location: 1st floor, Bathroom Location: 1st floor, and walk in shower. Pt owns cane, walker, shower chair and grab bars, raised toilet seat. Discussed with patient importance of attending joint education class and provided date and times of class: YES had both TKA. Patient received Joint Education Binder: Yes Patient plans discharge to go to her [facility] house local until her other son flys in to assist her on 03/18. Discussed medicare guidelines and SNF, pt unaware that medicare did not cover SNF and would have preferred to have surgery lining up with her son coming into town to assist. SIGNATURE: RAKEL Maldonado PATIENT NAME: Kemal Cantu DATE: February 21, 2023 TIME: 3:10 PM documented in this encounter [facility] 02-21-2023 Miscellaneous Notes I called and spoke with patient. Message from Lety given. Patient verbalized understanding. She states that she is concerned for after her surgery. Advised patient they will have medications that can be ordered post operatively. Patient has other post op questions about staying in a rehab facility. Robert, would you be able to reach out to the patient to discuss? We can make anesthesia aware of her RLS and they can medicate her accordingly through her IV the DOS. We generally do not premedicate patients with oral medications before DEYSI. Patient called in wanting make Dr. Hernandez aware of her extreme case of restless leg syndrome and needs to have special medication to control it so that her leg won't be thrashing around. Patient tried to speak with the pharmacy at [facility] and was advised to have Dr. Hernandez order the medication for her. Gabapentin enacarbil 300 mg TbER Pramipexole 0.125 mg tablet Patient stated that her medications are very hard to get a hold of. Please advise how to proceed as patient has brought her medications in in the past for another procedure 2 years ago. Nat Elias documented in this encounter [facility] 02-09-2023 Miscellaneous Notes Patient notified. Patient reports she is scheduled with Oskar Dasilva, on 05-18-23 for a 6 mth f/u. Asking if Clerk Of Works would put order in lab for Hgba1c for this appt? Please phone patient with reply. documented in this encounter [facility] 02-08-2023 Miscellaneous Notes Patient has been identified by name and date of : Yes Last office visit in this department: 11/16/2022 RX INSTRUCTIONS: Patient aware RX will be sent to pharmacy. No need to notify patient. Patient phones requesting refills as follows: Requested Prescriptions Pending Prescriptions Disp Refills metFORMIN (GLUCOPHAGE) 1,000 mg tablet 90 tablet 3 Sig: Take 1 tablet by mouth daily with breakfast. Please review and advise. Kemal Talley documented in this encounter [facility] 02-06-2023 Miscellaneous Notes Patient notified and will come in Monday to sampler pickup. Beatriz Ballard LPN This has been ordered. Please let patient know it is ready for pickup. Thank you Екатерина Escalante APRN.BILL Patient calling in asking if provider had written prescription for a handicap placard for her. Please call and advise. Patient is requesting a handicap placard, she states she is having a hip replacement in [place] and she is in pain. She can be reached at [phone] Thank you Katie Daniels Pss documented in this encounter [facility] 01-27-2023 Miscellaneous Notes Surgery has been scheduled as requested. Surgical request completed for right DEYSI at [facility] on 03/15/2023. Post op appointments have been scheduled and mailed to the patient. [facility] documented in this encounter [facility] 01-26-2023 Instructions Anderson Mims - 01/26/2023 10:27 AM EDT Continue with soaking of the toe until the toe is completely scabbed over and healed Continue with topical antibiotic. Small amount of antibiotic to lower moisture If toe appears moist, consider betadine Small band aide as opposed to large bulky dressing will help to lower moisture. documented in this encounter [facility] 01-26-2023 History of Presen t illness Narrative FOLLOW UP PODIATRIC OFFICE VISIT Chief Complaint: This 77 year old who presents for follow up:total nail matrixectomy of right hallux Patient presents to clinic for follow-up right great toenail matrixectomy Patient denies any redness, major drainage or pain. Patient feels quite well. PAIN EVALUATION 01/26/2023 1014 Pain Level: 3 Pain Location: Toe Description: Sharp Duration Amount of Time: 3 Duration Units: Weeks Frequency: Intermittent Intervention/Comfort measure: Relaxation;Reposition;Other: See comment Comments: Feels better after soaking Hemoglobin A1C Date Value Ref Range Status 11/25/2022 5.7 (H) 4.3 - 5.6 % Final Comment: [employer] Diabetes [employer] guidelines indicate that patients with HgbA1c in the range 5.7-6.4% are at increased risk for development of diabetes, and intervention by lifestyle modification may be beneficial. HgbA1c greater or equal to 6.5% is considered diagnostic of diabetes. PCP: Helen Chapa MD PAST MEDICAL HISTORY Diagnosis Date Diabetes mellitus (HCC) Fibromyalgia Fuchs' corneal dystrophy Gastroesophageal reflux disease Glaucoma HTN (hypertension) Hypothyroidism Irritable bowel syndrome Migraines MAURICE (obstructive sleep apnea) does not use c-pap Osteoarthritis Plantar fasciitis PONV (postoperative nausea and vomiting) Pseudophakia PTSD (post-traumatic stress disorder) Restless leg syndrome Sleep apnea in adult TMJ (dislocation of temporomandibular joint) Current Outpatient Medications Medication Sig buPROPion SR (ZYBAN SR; WELLBUTRIN SR) 150 mg 12 hr tablet take 1 tablet by mouth once daily Magnesium Oxide 500 mg tab Take by mouth once daily. pramipexole (MIRAPEX) 0.125 mg tablet Take 1 tablet by mouth four times daily. LUMIGAN 0.01 % drop ophthalmic drops instill 1 drop into both eyes once daily at bedtime fluticasone (FLONASE) 50 mcg/actuation nasal spray instill 2 sprays into each nostril once daily gabapentin enacarbil (HORIZANT) 300 mg TbER Take 3 tablets by mouth once daily. Take one tablet at 2pm and two tablets at 5pm omeprazole (PRILOSEC) 40 mg capsule take 1 capsule by mouth twice a day atorvastatin (LIPITOR) 10 mg tablet Take 1 tablet by mouth once daily. levothyroxine (SYNTHROID) 75 mcg tablet take 1 tablet by mouth once daily ON AN EMPTY STOMACH Lancets lancets Test blood sugar(s) 1 times daily. Dx: Type 2 DM - Controlled E11.9 Insulin: No semaglutide (OZEMPIC) 1 mg/dose (2 mg/1.5 mL) pen Inject 1 mg subcutaneously one time a week. montelukast (SINGULAIR) 10 mg tablet Take 1 tablet by mouth daily at bedtime. valsartan (DIOVAN) 320 mg tablet Take 1 tablet by mouth once daily. metFORMIN (GLUCOPHAGE) 1,000 mg tablet Take 1 tablet by mouth daily with breakfast. ketoconazole (NIZORAL) 2 % cream Apply to affected area once daily. Used for fungal skin fold rashes ubidecarenone (COENZYME Q10) 100 mg tab Take 200 mg by mouth once daily. simethicone (GAS-X ORAL) Take 125 mg by mouth twice daily. multivit,thx,calcium,iron,mins (MULTIVITAMIN AND MINERAL ORAL) Take by mouth. vitamin K2 100 mcg cap Take 100 mcg by mouth. Zinc 50 mg tab Take 50 mg by mouth. amLODIPine (NORVASC) 2.5 mg tablet Take 2.5 mg by mouth once daily. conjugated estrogens (PREMARIN) vaginal cream Use 0.5 g vaginally two times a week. metoprolol tartrate, short acting, (LOPRESSOR) 50 mg tablet Take 50 mg by mouth once daily. Bifidobacterium infantis (ALIGN ORAL) Take 1 tablet by mouth once daily. LOW-DOSE ASPIRIN ORAL Take 81 mg by mouth once daily. blood sugar diagnostic (ONETOUCH ULTRA TEST) test strip Test blood sugar once a day DX: E11.9 diclofenac sodium (VOLTAREN) 1 % topical gel Apply 2 g to affected area four times daily. amoxicillin (POLYMOX, AMOXIL) 500 mg capsule Take 500 mg by mouth. Take 4 capsules 1 hour before dental procedures. ascorbic acid, vitamin C, (VITAMIN C) 250 mg tablet Take 250 mg by mouth once daily. ferrous sulfate EC 324 mg (65 mg iron) TbEC Take 324 mg by mouth once daily. cholecalciferol (VITAMIN D3) 50 mcg (2,000 unit) tablet Take 2,000 Units by mouth once daily. clonazePAM (KLONOPIN) 0.5 mg tablet Take 1/2 to 1 tablet at bedtime as needed. (Patient not taking: Reported on 12/12/2022) blood sugar diagnostic (BLOOD GLUCOSE TEST) test strip Test blood sugar(s) 2 times daily. Dx: Type 2 DM - Controlled E11.9 Insulin: No (Patient not taking: No sig reported) No current facility-administered medications for this visit. ALLERGIES Allergen Reactions Bacitracin (Bulk) Hives Codeine Unknown Dust Mites Other: See Comments Gentamicin Swelling redness of eye watery and itching Mold Unknown Sulfa (Sulfonamide * Other: See Comments redness Sulfabenzamide Hives Tree Pollen-Red Map* Shortness of Breath PAST SURGICAL HISTORY Procedure Laterality Date CATARACT EXTRACTION W/ INTRAOCULAR LENS IMPLANT HX Bilateral 2017 COLONOSCOPY FLX DX W/COLLJ SPEC WHEN PFRMD 06/21/2021 CORNEAL TISSUE DSAEK/DMEK Left 09/30/2019 Dr. Clark ENDOTHELIAL KERATOPLASTY(DMEK) Right 04/17/2019 ENDOTHELIAL KERATOPLASTY/DSAEK Right 03/18/2019 ESOPHAGOGASTRODUODENOSCOPY TRANSORAL DIAGNOSTIC 06/21/2021 PAST SURGICAL HISTORY OF 1972 parathyroid adenoma surgery PAST SURGICAL HISTORY OF 1988 hysterectomy with prolapsed bladder repair PAST SURGICAL HISTORY OF 1992 abdominoplasty PAST SURGICAL HISTORY OF 1993 breast reduction PAST SURGICAL HISTORY OF 1979 deviated septum repair PAST SURGICAL HISTORY OF 1965 D&C after miscarriage PAST SURGICAL HISTORY OF 2013 Total right knee repalcement PAST SURGICAL HISTORY OF 11/2013 total left knee replacement PAST SURGICAL HISTORY OF 2015 rectocele repair with vaginal mesh PAST SURGICAL HISTORY OF 11/01/2015 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 PAST SURGICAL HISTORY OF 2018 DMEK Corneal Transplant-Right eye PAST SURGICAL HISTORY OF Left 10/10/2019 INJECTION, ANTERIOR CHAMBER OF EYE; AIR PAST SURGICAL HISTORY OF Right 1996 cyst removal off right 4 toe PAST SURGICAL HISTORY OF hammer toe surgery PAST SURGICAL HISTORY OF 04/2022 Prolasped vagina PRQ CARDIAC STENT W/ANGIO 1 VSL 03/02/2021 90% blockage RCA SKIN LESION BIOPSY 10/2015 x2 face YAG CAPSULOTOMY OD (RIGHT EYE) 2018 YAG CAPSULOTOMY OS (LEFT EYE) 2017 Physical Exam: OBJECTIVE: Constitutional: Pt is a well developed 77 year old female who is alert, oriented, cooperative and in no apparent distress. Eyes: Following during examination. No redness or drainage. Respiratory: RR normal and nonlabored. Even breathing. No evidence of distress. Psychology: Patient is engaged during conversation. Normal affect and mood. Does not appear depressed or anxious. NVSI unchanged from previous visit. Dermatological: Right great toe appears to be healing nicely without signs of infection. Mild maceration is present. Dryness is noted to b/l feet Musculoskeletal/Orthopaedic: Patient has no pain to palpation of b/l feet ASSESSMENT: (S91.109A) Open wound of toe, initial encounter (primary encounter diagnosis) PLAN: Patient is s/p total nail matrixectomy of right hallux. The nail bed appears to be healing without infection Continue with local wound care Would recommend she use band aide rather than bulky dressing to lower maceration If she has any concerns, she is to contact office Small area of dryness reduced with dremmel to left great toe Continue with lotion Call if any issues arise Anderson Mims DPM AMB ROOMING INTAKE FLOWSHEET DATA Pain Pain Level: 3 Pain Location: Toe Description: Sharp Duration Amount of Time: 3 Duration Units: Weeks Frequency: Intermittent Intervention/Comfort measure: Relaxation, Reposition, Other: See comment Comments: Feels better after soaking Patient presents with: Right Great Toe - Established Patient, Follow Up, Pain Patient presents for 3 week follow up of Right hallux matrixectomy. Patient states that it is healing well. Still has some pain to area where nail was digging in to toe. documented in this encounter [facility] 01-23-[address] - 01/23/2023 11:19 AM EDT Aim for three meals per week at the dining room table only Continue to focus on smaller portions, low fat choices Continue exercise as tolerate documented in this encounter [facility] 01-23-2023 History of Presen t illness Narrative Nutritional Therapy Re-Assessment Nutrition Diagnosis: Overweight/obesity, related to, excess energy intake and physical inactivity, as evidenced by BMI above normative standard for age and gender RECOMMENDED MALNUTRITION DIAGNOSIS: NO MALNUTRITION IDENTIFIED NUTRITION CARE PLAN: Nutrition Intervention 01/23/2023: modify type and amount of food or beverage Aim for three meals per week at the dining room table only Continue to focus on smaller portions, low fat choices Continue exercise as tolerated Nutrition Monitoring & Evaluation: 1-2 lb weight loss per week Need for Follow up: 4-6 weeks PROGRESS: Interval History: for follow up MNT as relates to class 3 obesity Body mass index is 41.95 kg/m . GERD, DM, Note two pound increase from last visit ,states was up 6 but has been able to lose to current. Currently with very high hip pain, surgery has been scheduled. Also with foot pain after removal of toenail. Brother gravely ill. Eating for comfort but better last two weeks. Patient has slowed down on eating, but continues to eat in front of TV with appropriate portions. Surgery for hip replacement has been scheduled for March. Nutrition Intervention 12/19/22 Follow low fat diet. Low fat dairy, bisquick. Rec taking probiotic at night Reviewed vegetable suggestions and goals. Reviewed physical activity recs.- rec increasing to 2-3x a week weight resistance. Rec eating only 2x a week with TV. Actions to implement interventions: Exercise Moving boxes Diet History: Breakfast - breakfast bar and yogurt; coffee; lately just coffee then yogurt one hour lately Snack - Yazzo bar Lunch - impossible cheese burger pie Snack - toast, occ with pnb/no sugar jelly Dinner - impossible cheese burger pie Snack - yasso bar, chocolate, cereal, Beverages - water, coffee, off diet soda or juan Alcohol - very rare Vitamins/Supplements - no change Eatign mashed potatoes, mac and cheese, bread Activity: Activities of Daily Living: varies Additional Activity: Lightly active (Light exercise: planned physical activity 1-3 days/week) 10-20 min on exercise bike 3-4 x per week (after two weeks after toenail removed) Anthropometrics: Height: Last 1 Encounter Ht Readings: Date: Ht: 01/23/2023 168.4 cm (5' 6.3) Current weight: Last 1 Encounter Wt Readings: Date: Wt: 01/23/2023 119 kg (262 lb 4.8 oz) Body mass index is 41.95 kg/m . Resting Metabolic Rate: 1701 Malnutrition Screening Significant unintentional weight loss? No Eating less than 75% of usual intake for more than 2 weeks? No Potential Signs of Inflammation: no identifiable sources Nutritional status: Education Materials Provided: None this visit READINESS TO LEARN Cognitive ability: Alert and oriented Motivation to learn: Interested Family support: Unable to assess - Family not present Instruction provided to: Patient Patient learns best by: Individual Instruction Factors affecting learning: None Physical limitations affecting learning: None Likelihood of Adherence: Moderate Referred/Supervised by: Romy CLEMENTS Billing Type: Re-assess/15 min 2 units SIGNATURE: Radha High RD PATIENT NAME: Kemal Cantu DATE: January 23, 2023 TIME: 10:58 AM documented in this encounter [facility] 01-19-2023 History of Presen t illness Narrative CONSULT ORTHOPAEDIC: HIP PRIMARY CARE PHYSICIAN: Helen Chapa MD REFERRING PROVIDER: Marco Hogan[address] [place] [address] ASSESSMENT & PLAN: Impression: Right Hip Severe Degenerative Osteoarthritis, Primary Kemal Cantu has radiograph and physical exam evidence of degenerative joint disease and wishes to pursue surgery. This patient appears to have sufficient symptoms to warrant surgical intervention and is an appropriate candidate for right Primary Total Hip Arthroplasty as evidenced by six months of unsuccessful non-operative treatment as outlined in the HPI below and progressive symptoms. Progressive symptoms include: Pain worsened by weight bearing Pain effecting living situation Pain limiting ability to stay fit and healthy Unable to ambulate 2 blocks without significant pain and dysfunction. We had a lengthy discussion regarding the risk and benefit of surgery, the alternatives, limitations and personnel involved. These included but were not limited to infection, persistent pain, instability, nerve injury, blood clots, and medical complications. We also discussed the pre-operative course, surgery itself and rehabilitation. [place]-operative blood management and transfusion issues were discussed, and options clearly outlined. The patient has consented to the use of the banked allogenic blood if medically necessary. The patient has elected to schedule surgery at this time or intends to call the office with a surgical date. Shared decision making occurred while obtaining informed consent. The patient will be scheduled for a pre-operative education class at which time they will have their nasal swab completed and will be given CHG cloths along with the verbal and written instructions for their use. Patient has been instructed and has been scheduled or will call to schedule attendence in one of the total joint perioperative classes offered prior to proceeding with DEYSI.. The patient has been ordered: No orders placed today. CONSULTS: Patient does not require consults for optimization at this time. 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 Ckd (Chronic Kidney Disease) Colon Cancer Screening 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 The problem began limiting activities 7-12 months ago. Currently the pain in the joint is rated at 7 out of 10 with minimal activity. The pain is constant and is located in the right hip and groin. The pain is described as aching, severe, and sharp. Relieving factors include rest. There is no specific incident that brought about this pain. Kemal Cantu has no additional complaints. FUNCTIONAL STATUS: Climb a flight of stairs or walk up a hill (5.50 METs) Total Joint Arthroplasty: Risk Calculator Kemal Cantu has a 54.21% chance of NOT returning home at discharge for a Primary total Hip replacement. Kemal's estimated Length of Stay is 2 days (Inpatient candidate). Kemal's 30 day chance of readmission is 7.95%. Readmission Probability 7.95 % (within 30 days following surgery) Estimated LOS 2 days Discharge Disposition Probability D/C to Home 45.79 % D/C to SNF 54.21 % These calculations are based on the following factors: - 77 years of age - sex is not male - BMI of 41 kg/m2 - NarxCare score of 120 - 1 hospitalizations in the last 12 months - no history of heart disease - history of diabetes - no history of COPD - history of anemia - preoperative ambulation: independent community distances - 6 step(s) to enter home - bed location is on the first floor - bath location is on the first floor - caregiver is occassionally available 2-4 days / week - home is not more than 150 miles away - PROMIS-10 Mental Health T score 41-49 - Marital status: PREVIOUS TREATMENTS: Attempted Weight Loss Medical: Intolerant of NSAIDS, Steroid Injections Right Hip REVIEW OF SYSTEMS: PAIN ASSESSMENT: See HPI. MUSCULOSKELETAL: See HPI. Patient here to discuss Right DEYSI. Patient states she is having pain in the lateral and groin area.She states she has fibromyalgia and has to stretch to keep her tendons from tightening. Taking Tylenol/Advil or Aleve for the pain and helps take the edge off. Uses a quad cane to ambulate. Risk Factors for Total Joint Arthroplasty (TJA) Obesity High Risk High: BMI > 40 Moderate: BMI 30-40 Normal: BMI < 30 Diabetes Moderate Risk High: A1C > 8 Moderate: A1C 7-8 Normal: A1C < 7 Smoking normal High: Current smoker Normal: Non smoker Anemia High Risk High: Hgb < 11.5 (women) N/A: Hgb >= 11.5 (women) Nutritional Status normal High: Alb<3.4, or prealb<15, or serum transferrin<200, or total lymphocyte count<1500 Normal: normal labs COPD normal High: dx of COPD Normal: no dx of COPD MRSA normal High: dx of MRSA or positive lab test Normal: no MRSA CKD normal High: eGFR<60 Moderate: eGFR 60-89 Normal: eGFR>90 Hx of DVT / PE normal High: dx of DVT / PE Normal: no dx of DVT / PE Narcotics Use Moderate Risk High:NarxCare >=300 Moderate: 100-299 Normal: 0-99 MAURICE High Risk High: dx of MAURICE N/A: no dx of MAURICE Coagulation normal High:PT Sec>13, or PT INR>1.3, or APTT>32.4, or Plt ct<150k Moderate: on anticoag but none of the above Normal: none Obesity: Weight management and obesity medicine (bariatric) program recommended BMI Readings from Last 3 Encounters: 12/19/22 : 41.63 kg/m 12/01/22 : 41.90 kg/m 11/21/22 : 42.17 kg/m Diabetes: Well controlled - Kemal has been diagnosed with Type 2 Diabetes. Her last Hemoglobin A1C was 5.7 (11/25/2022). Pt is followed by Екатерина Escalante for Type 2 Diabetes - last seen on 11/16/2022. Anemia Hemoglobin (g/dL) Date Value 11/25/2022 13.2 08/17/2022 13.1 04/09/2021 11.8 05/25/2020 13.4 NarxCare score NARX Narcotics: 120 (01/19/2023 12:35 PM) Obstructive Sleep Apnea (MAURICE) Other Risk Factors None PAST MEDICAL HISTORY Diagnosis Date Diabetes mellitus (HCC) Fibromyalgia Fuchs' corneal dystrophy Gastroesophageal reflux disease Glaucoma HTN (hypertension) Hypothyroidism Irritable bowel syndrome Migraines MAURICE (obstructive sleep apnea) does not use c-pap Osteoarthritis Plantar fasciitis PONV (postoperative nausea and vomiting) Pseudophakia PTSD (post-traumatic stress disorder) Restless leg syndrome Sleep apnea in adult TMJ (dislocation of temporomandibular joint) PAST SURGICAL HISTORY Procedure Laterality Date CATARACT EXTRACTION W/ INTRAOCULAR LENS IMPLANT HX Bilateral 2017 COLONOSCOPY FLX DX W/COLLJ SPEC WHEN PFRMD 06/21/2021 CORNEAL TISSUE DSAEK/DMEK Left 09/30/2019 Dr. Clark ENDOTHELIAL KERATOPLASTY(DMEK) Right 04/17/2019 ENDOTHELIAL KERATOPLASTY/DSAEK Right 03/18/2019 ESOPHAGOGASTRODUODENOSCOPY TRANSORAL DIAGNOSTIC 06/21/2021 PAST SURGICAL HISTORY OF 1972 parathyroid adenoma surgery PAST SURGICAL HISTORY OF 1988 hysterectomy with prolapsed bladder repair PAST SURGICAL HISTORY OF 1992 abdominoplasty PAST SURGICAL HISTORY OF 1993 breast reduction PAST SURGICAL HISTORY OF 1979 deviated septum repair PAST SURGICAL HISTORY OF 1966 D&C after miscarriage PAST SURGICAL HISTORY OF 2013 Total right knee repalcement PAST SURGICAL HISTORY OF 11/2013 total left knee replacement PAST SURGICAL HISTORY OF 2015 rectocele repair with vaginal mesh PAST SURGICAL HISTORY OF 11/01/2015 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 PAST SURGICAL HISTORY OF 2019 DMEK Corneal Transplant-Right eye PAST SURGICAL HISTORY OF Left 10/10/2019 INJECTION, ANTERIOR CHAMBER OF EYE; AIR PAST SURGICAL HISTORY OF Right 1996 cyst removal off right 4 toe PAST SURGICAL HISTORY OF hammer toe surgery PAST SURGICAL HISTORY OF 04/2022 Prolasped vagina PRQ CARDIAC STENT W/ANGIO 1 VSL 03/02/2021 90% blockage RCA SKIN LESION BIOPSY 10/2015 x2 face YAG CAPSULOTOMY OD (RIGHT EYE) 2018 YAG CAPSULOTOMY OS (LEFT EYE) 2018 FAMILY HISTORY Problem Relation Age of Onset Heart Mother Diabetes Mother Heart Father Stroke Father Cataract Paternal Grandfather Glaucoma Other Social History Tobacco Use Smoking status: Never Smokeless tobacco: Never Tobacco comments: Second hand smoke (mother) Vaping Use Vaping Use: Never used Substance Use Topics Alcohol use: Yes Alcohol/week: 1.0 standard drink Types: 1 Glasses of wine per week Comment: 3-4 glasses of wine per year Drug use: Never ALLERGIES: Bacitracin (Bulk), Codeine, Dust Mites, Gentamicin, Mold, Sulfa (Sulfonamide Antibiotics), Sulfabenzamide, and Tree Pollen-Red Maple MEDICATIONS: pramipexole (MIRAPEX) 0.125 mg tablet Take 1 tablet by mouth four times daily. LUMIGAN 0.01 % drop ophthalmic drops instill 1 drop into both eyes once daily at bedtime fluticasone (FLONASE) 50 mcg/actuation nasal spray instill 2 sprays into each nostril once daily gabapentin enacarbil (HORIZANT) 300 mg TbER Take 3 tablets by mouth once daily. Take one tablet at 2pm and two tablets at 5pm omeprazole (PRILOSEC) 40 mg capsule take 1 capsule by mouth twice a day atorvastatin (LIPITOR) 10 mg tablet Take 1 tablet by mouth once daily. Lancets lancets Test blood sugar(s) 1 times daily. Dx: Type 2 DM - Controlled E11.9 Insulin: No semaglutide (OZEMPIC) 1 mg/dose (2 mg/1.5 mL) pen Inject 1 mg subcutaneously one time a week. montelukast (SINGULAIR) 10 mg tablet Take 1 tablet by mouth daily at bedtime. buPROPion SR (ZYBAN SR; WELLBUTRIN SR) 150 mg 12 hr tablet take 1 tablet by mouth once daily valsartan (DIOVAN) 320 mg tablet Take 1 tablet by mouth once daily. metFORMIN (GLUCOPHAGE) 1,000 mg tablet Take 1 tablet by mouth daily with breakfast. ketoconazole (NIZORAL) 2 % cream Apply to affected area once daily. Used for fungal skin fold rashes ubidecarenone (COENZYME Q10) 100 mg tab Take 200 mg by mouth once daily. simethicone (GAS-X ORAL) Take 125 mg by mouth twice daily. multivit,thx,calcium,iron,mins (MULTIVITAMIN AND MINERAL ORAL) Take by mouth. vitamin K2 100 mcg cap Take 100 mcg by mouth. Zinc 50 mg tab Take 50 mg by mouth. amLODIPine (NORVASC) 2.5 mg tablet Take 2.5 mg by mouth once daily. conjugated estrogens (PREMARIN) vaginal cream Use 0.5 g vaginally two times a week. metoprolol tartrate, short acting, (LOPRESSOR) 50 mg tablet Take 50 mg by mouth once daily. Bifidobacterium infantis (ALIGN ORAL) Take 1 tablet by mouth once daily. LOW-DOSE ASPIRIN ORAL Take 81 mg by mouth once daily. blood sugar diagnostic (ONETOUCH ULTRA TEST) test strip Test blood sugar once a day DX: E11.9 diclofenac sodium (VOLTAREN) 1 % topical gel Apply 2 g to affected area four times daily. amoxicillin (POLYMOX, AMOXIL) 500 mg capsule Take 500 mg by mouth. Take 4 capsules 1 hour before dental procedures. ascorbic acid, vitamin C, (VITAMIN C) 250 mg tablet Take 250 mg by mouth once daily. ferrous sulfate EC 324 mg (65 mg iron) TbEC Take 324 mg by mouth once daily. cholecalciferol (VITAMIN D3) 50 mcg (2,000 unit) tablet Take 2,000 Units by mouth once daily. Magnesium Oxide 500 mg tab Take by mouth once daily. levothyroxine (SYNTHROID) 75 mcg tablet take 1 tablet by mouth once daily ON AN EMPTY STOMACH clonazePAM (KLONOPIN) 0.5 mg tablet Take 1/2 to 1 tablet at bedtime as needed. (Patient not taking: Reported on 12/12/2022) blood sugar diagnostic (BLOOD GLUCOSE TEST) test strip Test blood sugar(s) 2 times daily. Dx: Type 2 DM - Controlled E11.9 Insulin: No (Patient not taking: No sig reported) PHYSICAL EXAM There were no vitals taken for this visit. All other systems deferred. GENERAL: Appears healthy, well-nourished, no deformities. HABITUS: Obese GAIT: Antalgic to the right HIP EXAM: Right: ROM: Extension: slight flexion contracture Flexion: 100 degrees Internal Rotation: 20 degrees External Rotation: 25 degrees Abduction: 30 degrees Adduction: 30 degrees Strength: Abduction 5/5 and Flexion 5/5 Palpation: No tenderness Log roll: painful. Straight leg raise: Negative Neurovascular Status: Sensation Intact, Moves foot and ankle up & down, and 2+ dorsalis pedis DATA: Diagnostic tests reviewed for today's visit: Most recent labs Most recent films The following conditions were addressed during the office visit today: Obesity - Weight management strategies were discussed including diet and exercise. A Consult to Weight Management will be completed to follow up on the plan of care. Diabetes - HgbA1C optimization - we discussed the importance of good glucose control for overall health and Total Joint Arthroplasty. SIGNATURE: Marco Hernandez MD PATIENT NAME: Kemal Cantu DATE: January 19, 2023 TIME: 1:18 PM documented in this encounter [facility] 01-18-2023 Miscellaneous Notes Patient has been identified by name and date of : No Patient phones for refill(s): Requested Prescriptions Pending Prescriptions Disp Refills buPROPion SR (ZYBAN SR; WELLBUTRIN SR) 150 mg 12 hr tablet [Pharmacy Med Name: BUPROPION HCL SR 150 MG TABLET] 90 tablet 1 Sig: take 1 tablet by mouth once daily Date of last office visit in primary care: 11/16/22 Last 2 Encounter Wt Readings: Date: Wt: 12/19/2022 118.1 kg (260 lb 4.8 oz) 12/01/2022 120 kg (264 lb 9.6 oz) Previous labs/tests for medication: Not applicable Please advise. Thank you. Beatriz Ballard LPN documented in this encounter [facility] 01-10-2023 Miscellaneous Notes Last OV: 11/16/22 Patient has been identified by name and date of : Yes Requested Prescriptions Pending Prescriptions Disp Refills pramipexole (MIRAPEX) 0.125 mg tablet 360 tablet 1 Sig: Take 1 tablet by mouth four times daily. RX INSTRUCTIONS: Patient aware RX will be sent to pharmacy. No need to notify patient. Rachael Espinosa LPN documented in this encounter [facility] 01-10-2023 Miscellaneous Notes January 11, 2023 PID: [id number] Kemal Cantu [address] [place] [address] Dear Ms. Cantu, We are pleased to inform you that the results of your recent breast imaging exam on 01/10/2023 are normal. Early detection of cancer is very important. We also understand recommendations regarding breast cancer screening are controversial. Please discuss with your primary care provider which strategy is best for you and whether a mammogram is right for you. Your imaging studies and report will be kept on file at [facility] as part of your permanent medical record and are available for your continuing care. Thank you for allowing us to help in meeting your health care needs. Sincerely, Dr. Beauchamp Interpreting Radiologist [facility] (Normal over 40) documented in this encounter [facility] 01-10-2023 History of Presen t illness Narrative Radiology Service Progress Note PATIENT NAME: Kemal Cantu DATE OF SERVICE: January 10, 2023 TIME: 10:25 AM PATIENT IDENTITY VERIFICATION COMPLETED USING TWO (2) IDENTIFIERS: Name and Date of confirmed by patient verbally. FALL SCREENING: Has the patient had 2 falls in the last year or 1 fall with injury or currently using an Ambulatory Assistive Device (Walker, Cane, Wheelchair, Crutches, etc.)? No PATIENT GENDER DATA: Female. status: : No status: NO. PATIENT RELEVANT IMPLANT DATA REVIEWED: Not Applicable RADIOLOGY DEPARTMENT: Mammography PERIPHERAL IV DATA: Not applicable SIGNED BY: RT Leann(Gini) January 10, 2023 10:25 AM documented in this encounter [facility] 12-19-[address] - 12/19/2022 11:34 AM EDT Following low fat diet. Low fat dairy, bisquick. Rec taking probiotic at night Reviewed vegetable suggestions and goals. Reviewed physical activity recs.- rec increasing to 2-3x a week weight resistance. Patient has slowed down on eating, but continues to eat in front of TV with appropriate portions. Rec eating only 2x a week with TV. documented in this encounter [facility] 12-19-2022 History of Presen t illness Narrative Nutritional Therapy Re-Assessment Nutrition Diagnosis: Overweight/obesity, related to, excess energy intake and physical inactivity, as evidenced by BMI above normative standard for age and gender RECOMMENDED MALNUTRITION DIAGNOSIS: NO MALNUTRITION IDENTIFIED NUTRITION CARE PLAN: Nutrition Intervention 12/19/2022: Modified food and beverage intake. Following low fat diet. Low fat dairy, bisquick. Rec taking probiotic at night Reviewed vegetable suggestions and goals. Reviewed physical activity recs.- rec increasing to 2-3x a week weight resistance. Patient has slowed down on eating, but continues to eat in front of TV with appropriate portions. Rec eating only 2x a week with TV. Nutrition Monitoring & Evaluation: 1-2 lb weight loss per week. Need for Follow up: 4-6 weeks PROGRESS: Interval History: Following as relates to class 3 obesity. Body mass index is 41.63 kg/m . Continues with renovations. Pt would like to call and look into hip replacement. Working on getting weight below 50 lbs. Down six pounds from last visit. Working towards lower fat items, leaner proteins increased mindfulness with meals and snacks. Encouraged increase in physical activity through weight resistance. Continues to work on increasing non starchy vegetables. Nutrition Intervention 11/21/2022lan meals, plan for half plate veggies Here are ways to start incorporating more vegetables into your diet. Try roasting vegetables-this mellows the flavors. Try cooking veggies in tomato sauce or broth. Try grilling vegetables, slightly batsheva grilled veggies taste wonderful. Try a vegetable spiralizer to make veggies interesting in shape and mix in with other foods like pasta for example. Buy baby veggies-these naturally are more sweet and less bitter. Toss in flavor infused olive oil to bind the spices and herbs. Consider using a dip such as a Czech yogurt based (nonfat plain Czech yogurt with dressing mix or other seasonings). Thor veggies then dip in cold water to stop the cooking process and yield sweeter and milder tasting veggies. Slow roast or cook those in the onion family such as leeks, shallots, garlic etc to yield a mild sweet flavor. Consider adding finely chopped veggies to foods to sneak them in or puree to add to broths and sauces. A good source for recipes can be found in Eating Well or Cooking Light and a variety of other sources Snack if needed, (hungry )healthy choices, Plan for exercise most days and work on increasing time ,add weight resistance 2-3 x per week Continue mindful eating Actions to implement interventions: Pt has been working on improved portions Regular physical activity (cardio) Mindful eating Diet History: Breakfast - coffee, breakfast bar (1/2 to whole bar) Snack - Activia Lunch - leftovers (casserole/ skyla janeth w/ beans and avocado, german yogurt with taco seasonings,) Water, Snack - usually one snack a day, morning or afternoon. Cereal, breakfast bar Dinner - Cooks majority of meals/ Impossible cheeseburger pie. Casseroles provide 7-8 servings. Snack - Has tried to cut out/back on by not eating after dinner. Options: popcorn Beverages - water, coffee w/ half and half Alcohol - very rare Vitamins/Supplements - no change Activity: Activities of Daily Living: varies depending on pain tolerance. 15 min intervals. Additional Activity: Moderately active (Moderate intensity exercise: Planned physical activity 3-5 days/week) Biking 5-6 x a week. 30-40 min. Not consistent with exertion. . Anthropometrics: Height: Last 1 Encounter Ht Readings: Date: Ht: 12/19/2022 168.4 cm (5' 6.3) Current weight: Last 1 Encounter Wt Readings: Date: Wt: 12/19/2022 118.1 kg (260 lb 4.8 oz) Body mass index is 41.63 kg/m . Resting Metabolic Rate: 1692 Malnutrition Screening Significant unintentional weight loss? No Eating less than 75% of usual intake for more than 2 weeks? No Potential Signs of Inflammation: chronic condition Nutritional status: Education Materials Provided: None this visit READINESS TO LEARN Cognitive ability: Alert and oriented Motivation to learn: Interested Family support: Unable to assess - Family not present Instruction provided to: PatientPatient learns best by: Individual Instruction Factors affecting learning: None Physical limitations affecting learning: None Likelihood of Adherence: Moderate Referred/Supervised by: Noah CLEMENTS Billing Type: Re-assess/15 min 3 units SIGNATURE: Radha High RD PATIENT NAME: Kemal Cantu DATE: December 19, 2022 TIME: 11:03 AM documented in this encounter [facility] 12-12-2022 Miscellaneous Notes LV: 02/05/21 FV: None Patient's request for medication is as follows: Requested Prescriptions Pending Prescriptions Disp Refills LUMIGAN 0.01 % drop ophthalmic drops [Pharmacy Med Name: LUMIGAN 0.01% EYE DROPS] 5 mL 11 Sig: instill 1 drop into both eyes once daily at bedtime Prescription(s) as above. Please process accordingly. Juan Clark MD filed at 02/05/2021 7:14 AM Status: Signed Encounter Diagnosis ICD-10-CM 1. Status post corneal transplant Z94.7 ECC/CONFOCAL MICROSCOPY OU (BOTH EYES) OCT ANTERIOR SEGMENT OPTOVUE OU (BOTH EYES) 2. Primary open angle glaucoma (POAG) of both eyes, indeterminate stage H40.1134 3. Pseudophakia Z96.1 s/p DMEK OU, clear graft OU Has been off PF doing well Signs and symptoms of rejection reviewed, call JOYCE if present +hx early glaucoma vs glaucoma suspect following with local ophthalmology -- planning to see Dr. Gu in several months okay to follow up for care locally, can return to me PRN in the future or if any new s/s next visit mrx iop dfe ou optovue ou confocal cafe server ou I have confirmed and edited as necessary the relevant ophthalmic history, ROS, and the neuro exam findings as obtained by others. I have seen and examined this patient. I have discussed the case and the management of this patient's care with the Resident/Fellow, if applicable. I also have reviewed and agree with the assessment and plan as stated above and agree with all of its relevant components. MD Bradley Hernandez MD documented in this encounter [facility] 12-12-2022 History of Presen t illness Narrative Chief Complaint: This 77 year old female who presents with chief complaint:ingrowing toenail of right hallux HPI Patient presents to clinic for evaluation of right great toe. Patient complains of ingrowing toenail to the right hallux toenail, primarily the medial border. She states this has been going on for a few months. She tried to let the nail grow out but she continues to have pain. She denies any drainage, warmth or redness. She is diabetic. Her last a1c in November was 5.7. She does have hammertoes of b/l feet, worse on the left. She states that the only shoes she can wear due to the hammertoes is a crock. PAIN EVALUATION 12/12/2022 0914 Pain Level: 8 Pain Location: Toe Description: Sharp Duration Amount of Time: 2 Duration Units: Months Frequency: Intermittent Intervention/Comfort measure: Reposition;Relaxation;Other: See comment Comments: soaking Hemoglobin A1C (%) Date Value 11/25/2022 5.7 08/17/2022 5.6 02/03/2022 5.7 08/18/2021 6.6 05/18/2021 6.1 03/19/2021 7.1 02/12/2021 7.8 10/28/2020 6.9 PCP: Helen Chapa MD PAST MEDICAL HISTORY Diagnosis Date Diabetes mellitus (HCC) Fibromyalgia Fuchs' corneal dystrophy Gastroesophageal reflux disease Glaucoma HTN (hypertension) Hypothyroidism Irritable bowel syndrome Migraines MAURICE (obstructive sleep apnea) does not use c-pap Osteoarthritis Plantar fasciitis PONV (postoperative nausea and vomiting) Pseudophakia PTSD (post-traumatic stress disorder) Restless leg syndrome Sleep apnea in adult TMJ (dislocation of temporomandibular joint) Current Outpatient Medications Medication Sig fluticasone (FLONASE) 50 mcg/actuation nasal spray instill 2 sprays into each nostril once daily pramipexole (MIRAPEX) 0.125 mg tablet Take 0.125 mg by mouth four times daily. gabapentin enacarbil (HORIZANT) 300 mg TbER Take 3 tablets by mouth once daily. Take one tablet at 2pm and two tablets at 5pm omeprazole (PRILOSEC) 40 mg capsule take 1 capsule by mouth twice a day atorvastatin (LIPITOR) 10 mg tablet Take 1 tablet by mouth once daily. levothyroxine (SYNTHROID) 75 mcg tablet take 1 tablet by mouth once daily ON AN EMPTY STOMACH Lancets lancets Test blood sugar(s) 1 times daily. Dx: Type 2 DM - Controlled E11.9 Insulin: No semaglutide (OZEMPIC) 1 mg/dose (2 mg/1.5 mL) pen Inject 1 mg subcutaneously one time a week. montelukast (SINGULAIR) 10 mg tablet Take 1 tablet by mouth daily at bedtime. buPROPion SR (ZYBAN SR; WELLBUTRIN SR) 150 mg 12 hr tablet take 1 tablet by mouth once daily valsartan (DIOVAN) 320 mg tablet Take 1 tablet by mouth once daily. metFORMIN (GLUCOPHAGE) 1,000 mg tablet Take 1 tablet by mouth daily with breakfast. ketoconazole (NIZORAL) 2 % cream Apply to affected area once daily. Used for fungal skin fold rashes LUMIGAN 0.01 % drop ophthalmic drops instill 1 drop into both eyes once daily at bedtime ubidecarenone (COENZYME Q10) 100 mg tab Take 200 mg by mouth once daily. simethicone (GAS-X ORAL) Take 125 mg by mouth twice daily. multivit,thx,calcium,iron,mins (MULTIVITAMIN AND MINERAL ORAL) Take by mouth. vitamin K2 100 mcg cap Take 100 mcg by mouth. Zinc 50 mg tab Take 50 mg by mouth. amLODIPine (NORVASC) 2.5 mg tablet Take 2.5 mg by mouth once daily. conjugated estrogens (PREMARIN) vaginal cream Use 0.5 g vaginally two times a week. metoprolol tartrate, short acting, (LOPRESSOR) 50 mg tablet Take 50 mg by mouth once daily. Bifidobacterium infantis (ALIGN ORAL) Take 1 tablet by mouth once daily. LOW-DOSE ASPIRIN ORAL Take 81 mg by mouth once daily. blood sugar diagnostic (ONETOUCH ULTRA TEST) test strip Test blood sugar once a day DX: E11.9 diclofenac sodium (VOLTAREN) 1 % topical gel Apply 2 g to affected area four times daily. amoxicillin (POLYMOX, AMOXIL) 500 mg capsule Take 500 mg by mouth. Take 4 capsules 1 hour before dental procedures. ascorbic acid, vitamin C, (VITAMIN C) 250 mg tablet Take 250 mg by mouth once daily. ferrous sulfate EC 324 mg (65 mg iron) TbEC Take 324 mg by mouth once daily. cholecalciferol (VITAMIN D3) 50 mcg (2,000 unit) tablet Take 2,000 Units by mouth once daily. clonazePAM (KLONOPIN) 0.5 mg tablet Take 1/2 to 1 tablet at bedtime as needed. (Patient not taking: Reported on 12/12/2022) blood sugar diagnostic (BLOOD GLUCOSE TEST) test strip Test blood sugar(s) 2 times daily. Dx: Type 2 DM - Controlled E11.9 Insulin: No (Patient not taking: Reported on 09/30/2022) No current facility-administered medications for this visit. ALLERGIES Allergen Reactions Bacitracin (Bulk) Hives Codeine Unknown Dust Mites Other: See Comments Gentamicin Swelling redness of eye watery and itching Mold Unknown Sulfa (Sulfonamide * Other: See Comments redness Sulfabenzamide Hives Tree Pollen-Red Map* Shortness of Breath PAST SURGICAL HISTORY Procedure Laterality Date CATARACT EXTRACTION W/ INTRAOCULAR LENS IMPLANT HX Bilateral 2016 COLONOSCOPY FLX DX W/COLLJ SPEC WHEN PFRMD 06/21/2021 CORNEAL TISSUE DSAEK/DMEK Left 09/30/2019 Dr. Clark ENDOTHELIAL KERATOPLASTY(DMEK) Right 04/17/2019 ENDOTHELIAL KERATOPLASTY/DSAEK Right 03/18/2019 ESOPHAGOGASTRODUODENOSCOPY TRANSORAL DIAGNOSTIC 06/21/2021 PAST SURGICAL HISTORY OF 1972 parathyroid adenoma surgery PAST SURGICAL HISTORY OF 1988 hysterectomy with prolapsed bladder repair PAST SURGICAL HISTORY OF 1992 abdominoplasty PAST SURGICAL HISTORY OF 1993 breast reduction PAST SURGICAL HISTORY OF 1979 deviated septum repair PAST SURGICAL HISTORY OF 1965 D&C after miscarriage PAST SURGICAL HISTORY OF 2013 Total right knee repalcement PAST SURGICAL HISTORY OF 11/2013 total left knee replacement PAST SURGICAL HISTORY OF 2015 rectocele repair with vaginal mesh PAST SURGICAL HISTORY OF 11/01/2015 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 PAST SURGICAL HISTORY OF 2018 DMEK Corneal Transplant-Right eye PAST SURGICAL HISTORY OF Left 10/10/2019 INJECTION, ANTERIOR CHAMBER OF EYE; AIR PAST SURGICAL HISTORY OF Right 1996 cyst removal off right 4 toe PAST SURGICAL HISTORY OF hammer toe surgery PRQ CARDIAC STENT W/ANGIO 1 VSL 03/02/2021 90% blockage RCA SKIN LESION BIOPSY 10/2015 x2 face YAG CAPSULOTOMY OD (RIGHT EYE) 2018 YAG CAPSULOTOMY OS (LEFT EYE) 2018 FAMILY HISTORY Problem Relation Age of Onset Heart Mother Diabetes Mother Heart Father Stroke Father Cataract Paternal Grandfather Glaucoma Other Social History Tobacco Use Smoking status: Never Smokeless tobacco: Never Tobacco comments: Second hand smoke (mother) Vaping Use Vaping Use: Never used Substance Use Topics Alcohol use: Yes Alcohol/week: 1.0 standard drink Types: 1 Glasses of wine per week Comment: 3-4 glasses of wine per year Drug use: Never REVIEW OF SYSTEMS GENERAL: Negative for Malaise, significant weight loss, fever RESPIRATORY: Negative for cough, wheezing and shortness of breath CARDIOVASCULAR: Negative for chest pain, leg swelling and palpitations GI: Negative for abdominal discomfort, blood in stools or black stools and change in bowel habits : Negative for dysuria, frequency and incontinence MUSCULOSKELETAL: Negative for joint pain or swelling, back pain, and muscle pain. SKIN: Negative for lesions, rash, and itching. HEMATOLOGY/LYMPHOLOGY Negative for prolonged bleeding, bruising easily, and swollen nodes. ENDOCRINE: Negative for cold or heat intolerance, polyuria, polydipsia and goiter. NEURO: negative Physical Exam: Constitutional: Pt is a well developed 77 year old female who is alert, oriented and cooperative Eyes: Following during examination. No redness or drainage. Respiratory: RR normal and nonlabored. Even breathing. No evidence of distress or shortness of breath. Psychology: Patient is engaged during conversation. Normal affect and mood. Does not appear depressed or anxious during encounter. Vascular: Dorsalis pedis and posterior tibial pulses faintly palpable as b/l Capillary Fill time < 5 seconds to digits 1-5 b/l Skin temperature warm to cool proximal to distal b/l Hair growth absent to digits Neurological: intact light touch/epicritic sensation Vibratory sensation absent b/l decreased protective sensation + significant neurological deficits Dermatological: Right hallux toenail is thick, dystrophic and incurvated medially. There is no signs of infection currently. Webspaces clean and dry 1-4 b/l. Skin appears well hydrated and supple. good color, texture, turgor. No open lesions present. Callus present to distal tuft of multiple toes, b/l. Musculoskeletal/Orthopaedic: Patient has pain to palpation of right hallux toenail AJ ROM is full with knee extended and flexed 1st MPJ is decreased when loaded and no pain or crepitus are noted with ROM. Hammertoes are present to lesser toes b/l. MTJ, STJ are full and free of pain and crepitus. +5/5 muscle strength dorsiflexion, plantarflexion, inversion, eversion b/l Radiographs: n/a ASSESSMENT: (B35.1) Onychomycosis (primary encounter diagnosis) (L84) Callus (M20.41, M20.42) Hammer toes of both feet (E11.49) Other diabetic neurological complication associated with type 2 diabetes mellitus (HCC) PLAN: Discussed ingrowing tendency of right hallux. No signs of infection currently. Infomred patient that her toenail is thick and likely to cause ingrown medially. Options include filing the nail down vs partial nail matrixectomy vs total nail matrixectomy. She has elected to pursue partial nail matrixectomy of right hallux medial border. Because she is going to be active today with shopping, she will schedule at her convenience Callus reduced to hammertoes with dremmel. Cause of callus is hammertoe. Contineu with wider shoes. Offered diabetic shoes. S he declined. F/u for nail procedure Anderson Mims DPM Podiatry [address] [facility] [address] Dept: [phone] Dept AMB ROOMING INTAKE FLOWSHEET DATA Pain Pain Level: 8 Pain Location: Toe Description: Sharp Duration Amount of Time: 2 Duration Units: Months Frequency: Intermittent Intervention/Comfort measure: Reposition, Relaxation, Other: See comment Comments: soaking Patient presents with: Right Great Toe - Established Patient, Follow Up, Ingrown Toenail Left Great Toe - Callous, Established Patient, Follow Up Lashonda Cortes LPN documented in this encounter [facility] 12-03-2022 Miscellaneous Notes Patient has been identified by name and date of : Yes, Patient phones for refill(s): Requested Prescriptions Pending Prescriptions Disp Refills fluticasone (FLONASE) 50 mcg/actuation nasal spray [Pharmacy Med Name: FLUTICASONE PROP 50 MCG SPRAY] 16 g 5 Sig: instill 2 sprays into each nostril once daily Date of last office visit in primary care: 11/29/2022 6 month follow-up: 05/18/2023 Last 2 Encounter Wt Readings: Date: Wt: 12/01/2022 120 kg (264 lb 9.6 oz) 11/21/2022 120.8 kg (266 lb 4.8 oz) Previous labs/tests for medication: Not applicable Please advise. Thank you. Barbie Buitrago LPN documented in this encounter [facility] 12-01-2022 History of Presen t illness Narrative Images from the original note were not included. [facility] Follow-up Visit Follow-up note December 01, 2022 HPI: Ms. Cantu presents today for a follow-up visit. Per her previous visit with Dr. Blevins on 09/30/22: 1. RLS (restless legs syndrome) - ICD9: 333.94, ICD10: G25.81 (primary diagnosis) Patient with worsening RLS symptoms, including symptoms occurring earlier in the night. Suspect due to augmentation with patient increasing her Mirapex since last visit without being instructed to do so. Patient to come extent compulsive with regards to her Mirapex dosing, and at this time, upset that I discussed decreasing the dose with her. She does fel that the Horizant worked better for her symptoms than Lyrica. She is opposed to trying Neupro patch as fear it will harm her skin. Discussed again, dx, etiology, physiology and treatment of RLS. Patient agrees with plan as follows: Stop Lyrica. 2. Restart Horizant 300mg -- take 1 tablet at 2PM, then 2 tablets at 5PM 3. Change Mirapex 0.125mg such that -- take 1 tablet at 2PM with Horizant, 1 tablet at 5PM with the Horizant, and 2 tablets at 10PM. 4. If absolutely needed at bedtime, can then take 1/2 to 1 tablet of Klonopoin 0.5mg. 5. Increase your Iron tablet so that you take 1 with breakfast and 1 with dinner. 2. Iron deficiency anemia, unspecified iron deficiency anemia type - ICD9: 280.9, ICD10: D50.9 Low Ferritin might be contributing to RLS. Encouraged pt to increase FeSO4 to twice daily dosing. 3. MAURICE (obstructive sleep apnea) - ICD9: 327.23, ICD10: G47.33 Discussed in past the possible presence of MAURICE and further evaluation by [facility]. Pt defers at this time with similar complaint as last visit. However, need to approach topic again next visit. Discussed with patient: the physiology of OSAS, medical conditions associated with OSAS (DM, HTN, CAD, Depression, Stroke, Headache...) and treatment options (UPPP, Dental appliances, CPAP...). Encouraged weight loss, and continued compliance with other medications. States symptoms are not good. Not sleeping more than 4 hours per night. Moving timing has helped daytime symptoms but now symptoms are occurring later in the day. Will wake at 3-4am with symptoms. During the day symptoms are ok until 11pm-12am. At that point will get on her exercise bike. Calms her legs enough for her to sleep about four hours. Restarting Horizant has helped her symptoms. One 300mg tablet at 2pm and two tablets at 5pm. Taking Mirapex one tablet at 2pm, 2 tablets at dinner, one tablet at 9pm, and one tablet at 11pm. States she would like to go back to taking 6 tablets per day. Wants to return to additional tablet at 11pm. States she is not worried about augmentation. Does not feel Klonopin is providing relief of symptoms. Only took 1/2 tablet three days and then increased to full tablet. Still feels like there is no benefit. Does feel this has helped her hip as it relaxes the muscle around her hip. Taking iron tablet. States she is not ready for MAURICE workup as she does not have a bedroom. Sleeping on the couch. Denies new weakness, numbness, tingling, vision changes, memory changes, speech changes, DIEZ. States she tried Neupro years ago and it did not provide relief of symptoms. PAST MEDICAL HISTORY Diagnosis Date Diabetes mellitus (HCC) Fibromyalgia Fuchs' corneal dystrophy Gastroesophageal reflux disease Glaucoma HTN (hypertension) Hypothyroidism Irritable bowel syndrome Migraines MAURICE (obstructive sleep apnea) does not use c-pap Osteoarthritis Plantar fasciitis PONV (postoperative nausea and vomiting) Pseudophakia PTSD (post-traumatic stress disorder) Restless leg syndrome Sleep apnea in adult TMJ (dislocation of temporomandibular joint) PAST SURGICAL HISTORY Procedure Laterality Date CATARACT EXTRACTION W/ INTRAOCULAR LENS IMPLANT HX Bilateral 2017 COLONOSCOPY FLX DX W/COLLJ SPEC WHEN PFRMD 06/21/2021 CORNEAL TISSUE DSAEK/DMEK Left 09/30/2019 Dr. Clark ENDOTHELIAL KERATOPLASTY(DMEK) Right 04/17/2019 ENDOTHELIAL KERATOPLASTY/DSAEK Right 03/18/2019 ESOPHAGOGASTRODUODENOSCOPY TRANSORAL DIAGNOSTIC 06/21/2021 PAST SURGICAL HISTORY OF 1972 parathyroid adenoma surgery PAST SURGICAL HISTORY OF 1988 hysterectomy with prolapsed bladder repair PAST SURGICAL HISTORY OF 1992 abdominoplasty PAST SURGICAL HISTORY OF 1993 breast reduction PAST SURGICAL HISTORY OF 1979 deviated septum repair PAST SURGICAL HISTORY OF 1965 D&C after miscarriage PAST SURGICAL HISTORY OF 2013 Total right knee repalcement PAST SURGICAL HISTORY OF 11/2013 total left knee replacement PAST SURGICAL HISTORY OF 2015 rectocele repair with vaginal mesh PAST SURGICAL HISTORY OF 11/01/2015 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 PAST SURGICAL HISTORY OF 2018 DMEK Corneal Transplant-Right eye PAST SURGICAL HISTORY OF Left 10/10/2019 INJECTION, ANTERIOR CHAMBER OF EYE; AIR PAST SURGICAL HISTORY OF Right 1996 cyst removal off right 4 toe PAST SURGICAL HISTORY OF hammer toe surgery PRQ CARDIAC STENT W/ANGIO 1 VSL 03/02/2021 90% blockage RCA SKIN LESION BIOPSY 10/2015 x2 face YAG CAPSULOTOMY OD (RIGHT EYE) 2017 YAG CAPSULOTOMY OS (LEFT EYE) 2017 Current Outpatient Medications on File Prior to Visit Medication Sig levothyroxine (SYNTHROID) 75 mcg tablet take 1 tablet by mouth once daily ON AN EMPTY STOMACH Lancets lancets Test blood sugar(s) 1 times daily. Dx: Type 2 DM - Controlled E11.9 Insulin: No clonazePAM (KLONOPIN) 0.5 mg tablet Take 1/2 to 1 tablet at bedtime as needed. blood sugar diagnostic (BLOOD GLUCOSE TEST) test strip Test blood sugar(s) 2 times daily. Dx: Type 2 DM - Controlled E11.9 Insulin: No (Patient not taking: Reported on 09/30/2022) semaglutide (OZEMPIC) 1 mg/dose (2 mg/1.5 mL) pen Inject 1 mg subcutaneously one time a week. montelukast (SINGULAIR) 10 mg tablet Take 1 tablet by mouth daily at bedtime. buPROPion SR (ZYBAN SR; WELLBUTRIN SR) 150 mg 12 hr tablet take 1 tablet by mouth once daily fluticasone (FLONASE) 50 mcg/actuation nasal spray instill 2 sprays into each nostril once daily valsartan (DIOVAN) 320 mg tablet Take 1 tablet by mouth once daily. omeprazole (PRILOSEC) 40 mg capsule Take 1 capsule by mouth twice daily. metFORMIN (GLUCOPHAGE) 1,000 mg tablet Take 1 tablet by mouth daily with breakfast. ketoconazole (NIZORAL) 2 % cream Apply to affected area once daily. Used for fungal skin fold rashes LUMIGAN 0.01 % drop ophthalmic drops instill 1 drop into both eyes once daily at bedtime pramipexole (MIRAPEX) 0.125 mg tablet Take 2 tablets by mouth four times daily. atorvastatin (LIPITOR) 10 mg tablet Take 1 tablet by mouth once daily. ubidecarenone (COENZYME Q10) 100 mg tab Take 200 mg by mouth once daily. simethicone (GAS-X ORAL) Take 125 mg by mouth twice daily. multivit,thx,calcium,iron,mins (MULTIVITAMIN AND MINERAL ORAL) Take by mouth. vitamin K2 100 mcg cap Take 100 mcg by mouth. Zinc 50 mg tab Take 50 mg by mouth. amLODIPine (NORVASC) 2.5 mg tablet Take 2.5 mg by mouth once daily. conjugated estrogens (PREMARIN) vaginal cream Use 0.5 g vaginally two times a week. metoprolol tartrate, short acting, (LOPRESSOR) 50 mg tablet Take 50 mg by mouth twice daily. Bifidobacterium infantis (ALIGN ORAL) Take 1 tablet by mouth once daily. LOW-DOSE ASPIRIN ORAL Take 81 mg by mouth once daily. blood sugar diagnostic (Cool ContainersTOUCH ULTRA TEST) test strip Test blood sugar once a day DX: E11.9 diclofenac sodium (VOLTAREN) 1 % topical gel Apply 2 g to affected area four times daily. amoxicillin (POLYMOX, AMOXIL) 500 mg capsule Take 500 mg by mouth. Take 4 capsules 1 hour before dental procedures. ascorbic acid, vitamin C, (VITAMIN C) 250 mg tablet Take 250 mg by mouth once daily. ferrous sulfate EC 324 mg (65 mg iron) TbEC Take 324 mg by mouth once daily. cholecalciferol (VITAMIN D3) 50 mcg (2,000 unit) tablet Take 2,000 Units by mouth once daily. No current facility-administered medications on file prior to visit. Social History Tobacco Use Smoking status: Never Smokeless tobacco: Never Tobacco comments: Second hand smoke (mother) Vaping Use Vaping Use: Never used Substance Use Topics Alcohol use: Yes Alcohol/week: 1.0 standard drink Types: 1 Glasses of wine per week Comment: 3-4 glasses of wine per year Drug use: Never ALLERGIES Allergen Reactions Bacitracin (Bulk) Hives Codeine Unknown Dust Mites Other: See Comments Gentamicin Swelling redness of eye watery and itching Mold Unknown Sulfa (Sulfonamide * Other: See Comments redness Sulfabenzamide Hives Tree Pollen-Red Map* Shortness of Breath Review of Systems: Cognitively intact. No deficits. No formal MMSE performed. CN: Pupils equal and reactive to light, extraocular movements intact with no nystagmus, face is symmetric with no facial droop, hearing intact bilaterally, symmetric evaluation of the soft palate, tongue is midline with no deviation, shoulder shrug is symmetric. Motor exam shows 5/5 strength symmetric through the upper and lower extremities in all groups tested. Sensory intact to light touch in all extremities. Vibratory sensation is intact and symmetric all extremities. Deep tendon reflexes are symmetric at the biceps, brachioradialis, triceps, patella, and achilles bilaterally. Coordination: No dysmetria on finger to nose. No tremors noted. No drift seen. Gait normal in stance and pattern. Physical Exam: 12/01/22 1349 BP: 139/68 Pulse: 69 Resp: 16 Temp: 37.2 C (98.9 F) SpO2: 96% Weight: 120 kg (264 lb 9.6 oz) Patient is alert and in no distress. Dress is appropriate. Mood is appropriate Breathing appears regular and unstressed Neurologic examination: Cognitively intact. No deficits. No formal MMSE performed. CN: Pupils equal and reactive to light, extraocular movements intact with no nystagmus, face is symmetric with no facial droop, facial sensation intact bilaterally to light touch. V1-3, hearing intact bilaterally, symmetric evaluation of the soft palate, tongue is midline with no deviation, shoulder shrug is symmetric. Motor exam shows 5/5 strength symmetric through the upper and lower extremities in all groups tested. Sensory intact to light touch and temperature in all extremities. Vibratory sensation is intact and symmetric all extremities. Deep tendon reflexes are symmetric at the biceps, brachioradialis, triceps, patella, and achilles bilaterally. Coordination: No dysmetria on finger to nose. No tremors noted. No drift seen. Gait normal in stance and pattern. Labs/studies: Component Latest Ref Rng & Units 05/19/2022 Iron 41 - 186 ug/dL 90 TIBC 232 - 386 ug/dL 350 Transferrin Saturation 15.0 - 57.0 % 25.7 Ferritin 14.7 - 205.1 ng/mL 47.4 Component Latest Ref Rng & Units 08/18/2021 02/03/2022 04/13/2022 WBC 3.70 - 11.00 k/uL 4.73 RBC 3.90 - 5.20 m/uL 4.61 Hemoglobin 11.5 - 15.5 g/dL 13.0 Hematocrit 36.0 - 46.0 % 40.4 MCV 80.0 - 100.0 fL 87.6 MCH 26.0 - 34.0 pg 28.2 MCHC 30.5 - 36.0 g/dL 32.2 RDW-CV 11.5 - 15.0 % 14.5 Platelet Count 150 - 400 k/uL 258 MPV 9.0 - 12.7 fL 10.2 Absolute nRBC <0.01 k/uL <0.01 Glucose 74 - 99 mg/dL 118 (H) BUN 7 - 21 mg/dL 19 Creatinine 0.58 - 0.96 mg/dL 0.80 Sodium 136 - 144 mmol/L 138 Potassium 3.7 - 5.1 mmol/L 4.3 Chloride 97 - 105 mmol/L 103 CO2 22 - 30 mmol/L 23 Anion Gap 9 - 18 mmol/L 12 Calcium 8.5 - 10.2 mg/dL 10.1 eGFR >=60 mL/min/1.73m 76 Iron 41 - 186 ug/dL 59 TIBC 232 - 386 ug/dL 357 Transferrin Saturation 15 - 57 % 17 Ferritin 14.7 - 205.1 ng/mL 35.4 TSH 0.270 - 4.200 mIU/L 3.370 Assessment/Plan: G25.81 RLS (restless legs syndrome) (primary encounter diagnosis) Comment: Hx of RLS with report of worsening symptoms at time of previous appointment. Concern for augmentation given use and increase in Mirapex dose by pt. At time of last appointment medication changes were made as listed below: Stop Lyrica. 2. Restart Horizant 300mg -- take 1 tablet at 2PM, then 2 tablets at 5PM 3. Change Mirapex 0.125mg such that -- take 1 tablet at 2PM with Horizant, 1 tablet at 5PM with the Horizant, and 2 tablets at 10PM. 4. If absolutely needed at bedtime, can then take 1/2 to 1 tablet of Klonopoin 0.5mg. 5. Increase your Iron tablet so that you take 1 with breakfast and 1 with dinner. Today, she reports symptoms persist despite medication changes. She does feel that transition from Lyrica back to Horizant has been beneficial, however, reports symptoms still waking her at 4AM. She reports no benefit from Klonopin. She has decreased Mirapex dose and is only taking one tablet at 11PM and is inquiring if she can increase back to two tablets. Note, she defers use of Neupro. Discussed medications with Dr. Blevins and at this time will increase Mirapex dose to two tablets at 11PM so schedule is as follows: Horizant 300mg - one tablet at 2PM and two tablets at 5PM Mirapex 0.125mg - one tablet at 2PM, two tablets at 5PM, and two tablets at 11PM Continue 1/2 to 1 tablet Klonopin 0.5mg as need at bedtime She reports that she has not increased iron tablet to BID and recommend that she do so after appointment today. G47.33 MAURICE (obstructive sleep apnea) Comment: Hx of MAURICE and previously discussed further evaluation with [facility]. She continues to decline testing at time of appointment today. Will revisit at time of follow up appointment as untreated MAURICE may lead to increased risk for stroke, heart disease, htn, etc. Laurie Cee APRN.BILL I spent a total of 37 minutes on the date of the service which included preparing to see the patient, [id number] patient care, completing clinical documentation, obtaining and/or reviewing separately obtained history, performing a medically appropriate examination, counseling and educating the patient/family/caregiver, and communicating with other HCPs (not separately reported). PDMP website checked and validated. All prescriptions have been APPROPRIATELY filled. No suspicious activity was identified. December 01, 2022 Laurie Cee APRN.CNP documented in this encounter [facility] 11-28-2022 Miscellaneous Notes Completed. PAT from [facility] called. They need an allergy and medication list, for Kemal's upcoming surgery, faxed to them at [phone]. Bernie Dougherty RN documented in this encounter [facility] 11-23-2022 Miscellaneous Notes Orders faxed to [facility]. Referral placed. Orders printed and waiting for providers signature before being faxed. Order for hip injections in Epic, can we fax to [facility]? Patient will need in office follow up and updated xrays before additional repeat injection can be ordered. Patient called. Verified name and date of . Patient states she had fluoroscopy done in March 2022 at [facility] on right hip and is now asking to have bilateral done. Please review and advise. Jeannine Cummings LPN documented in this encounter [facility] 11-21-2022 Miscellaneous Notes Pt asking for pcp office to place mammo order. documented in this encounter [facility] 11-21-[address] - 11/21/2022 10:45 AM EDT fly meals, plan for half plate veggies Here are ways to start incorporating more vegetables into your diet. Try roasting vegetables-this mellows the flavors. Try cooking veggies in tomato sauce or broth. Try grilling vegetables, slightly [place]heva grilled veggies taste wonderful. Try a vegetable spiralizer to make veggies interesting in shape and mix in with other foods like pasta for example. Buy baby veggies-these naturally are more sweet and less bitter. Toss in flavor infused olive oil to bind the spices and herbs. Consider using a dip such as a Czech yogurt based (nonfat plain Czech yogurt with dressing mix or other seasonings). Thor veggies then dip in cold water to stop the cooking process and yield sweeter and milder tasting veggies. Slow roast or cook those in the onion family such as leeks, shallots, garlic etc to yield a mild sweet flavor. Consider adding finely chopped veggies to foods to sneak them in or puree to add to broths and sauces. A good source for recipes can be found in Eating Well or Cook[employer] and a variety of other sources Snack if needed, (hungry )healthy choices, Plan for exercise most days and work on increasing time ,add weight resistance 2-3 x per week Continue mindful eating documented in this encounter [facility] 11-21-2022 History of Presen t illness Narrative Nutritional Therapy Re-Assessment Nutrition Diagnosis: Overweight/obesity, related to, excess energy intake and physical inactivity, as evidenced by BMI above normative standard for age and gender RECOMMENDED MALNUTRITION DIAGNOSIS: NO MALNUTRITION IDENTIFIED NUTRITION CARE PLAN: Nutrition Intervention 11/21/2022: modify type and amount of food or beverage Plan meals, plan for half plate veggies Here are ways to start incorporating more vegetables into your diet. Try roasting vegetables-this mellows the flavors. Try cooking veggies in tomato sauce or broth. Try grilling vegetables, slightly batsheva grilled veggies taste wonderful. Try a vegetable spiralizer to make veggies interesting in shape and mix in with other foods like pasta for example. Buy baby veggies-these naturally are more sweet and less bitter. Toss in flavor infused olive oil to bind the spices and herbs. Consider using a dip such as a Czech yogurt based (nonfat plain Czech yogurt with dressing mix or other seasonings). Thor veggies then dip in cold water to stop the cooking process and yield sweeter and milder tasting veggies. Slow roast or cook those in the onion family such as leeks, shallots, garlic etc to yield a mild sweet flavor. Consider adding finely chopped veggies to foods to sneak them in or puree to add to broths and sauces. A good source for recipes can be found in Eating Well or Cooking Light and a variety of other sources Snack if needed, (hungry )healthy choices, Plan for exercise most days and work on increasing time ,add weight resistance 2-3 x per week Continue mindful eating Nutrition Monitoring & Evaluation: 1-2 lb weight loss per week Need for Follow up: 4-6 weeks PROGRESS: Interval History: Following as relates to class 3 obesity Body mass index is 42.17 kg/m . Has been busy trying to get house in order after renovations, issues with house, has had depression. Not cooking with house in disorder . Still low vegetables. Has been exercising most days ,did add some weight resistance. Note ~1 lb lost from last visit, states was lower before several celebrations and easter . Nutrition Intervention 10/07/22 Here are ways to start incorporating more vegetables into your diet. Try roasting vegetables-this mellows the flavors. Try cooking veggies in tomato sauce or broth. Try grilling vegetables, slightly batsheva grilled veggies taste wonderful. Try a vegetable spiralizer to make veggies interesting in shape and mix in with other foods like pasta for example. Buy baby veggies-these naturally are more sweet and less bitter. Toss in flavor infused olive oil to bind the spices and herbs. Consider using a dip such as a Czech yogurt based (nonfat plain Czech yogurt with dressing mix or other seasonings). Thor veggies then dip in cold water to stop the cooking process and yield sweeter and milder tasting veggies. Slow roast or cook those in the onion family such as leeks, shallots, garlic etc to yield a mild sweet flavor. Consider adding finely chopped veggies to foods to sneak them in or puree to add to broths and sauces. A good source for recipes can be found in Eating Well or Cooking Light and a variety of other sources Make a planned evening snack of something healthy Increasing exercise to 4 days per week and work on increasing time ,add weight resistance 2-3 x per week Continue to work on mindful eating Actions to implement interventions: Exercise, Better snacks Diet History: Breakfast - yogurt and breakfast bar, coffee with creamer Snack - no Lunch - 11- left overs, occ sandwich on WG breaf or sandwich thin of cheese, or pbj ;tabouli; water, if out diet soda or juan Snack - occ nuts if late dinner ,or small psc dark chocolate Dinner - skyla janeth; manicotti; salmon; chicken stir pinto; water Snack - occ nuts in early dinner; yogurt Beverages - water ,diet soda, coffee Alcohol - rare Vitamins/Supplements - see medlist Activity: Activities of Daily Living: varies Additional Activity: Moderately active (Moderate intensity exercise: Planned physical activity 3-5 days/week) Exercise bike 5 x per week for 30 min Some weights Anthropometrics: Height: Last 1 Encounter Ht Readings: Date: Ht: 11/21/2022 169.2 cm (5' 6.63) Current weight: Last 1 Encounter Wt Readings: Date: Wt: 11/21/2022 120.8 kg (266 lb 4.8 oz) Body mass index is 42.17 kg/m . Resting Metabolic Rate: 1724 Malnutrition Screening Significant unintentional weight loss? No Eating less than 75% of usual intake for more than 2 weeks? No Potential Signs of Inflammation: no identifiable sources Nutritional status: Education Materials Provided: None this visit READINESS TO LEARN Cognitive ability: Alert and oriented Motivation to learn: Interested Family support: Unable to assess - Family not present Instruction provided to: Patient Patient learns best by: Individual Instruction Factors affecting learning: None Physical limitations affecting learning: None Likelihood of Adherence: Moderate Referred/Supervised by: Sammi/Sammi CLEMENTS Billing Type: Re-assess/15 min 2 units SIGNATURE: Radha High RD PATIENT NAME: Kemal Cantu DATE: November 21, 2022 TIME: 10:16 AM documented in this encounter [facility] 11-16-2022 History of Presen t illness Narrative Medicare Yearly Visit Medical B eligibilty date 02/11/2014 Date of last exam N/A, not been done since moving to our area 3-4 years ago PAST MEDICAL HISTORY Diagnosis Date Diabetes mellitus (HCC) Fibromyalgia Fuchs' corneal dystrophy Gastroesophageal reflux disease Glaucoma HTN (hypertension) Hypothyroidism Irritable bowel syndrome Migraines MAURICE (obstructive sleep apnea) does not use c-pap Osteoarthritis Plantar fasciitis PONV (postoperative nausea and vomiting) Pseudophakia PTSD (post-traumatic stress disorder) Restless leg syndrome Sleep apnea in adult TMJ (dislocation of temporomandibular joint) PAST SURGICAL HISTORY Procedure Laterality Date CATARACT EXTRACTION W/ INTRAOCULAR LENS IMPLANT HX Bilateral 2016 COLONOSCOPY FLX DX W/COLLJ SPEC WHEN PFRMD 06/21/2021 CORNEAL TISSUE DSAEK/DMEK Left 09/30/2019 Dr. Clark ENDOTHELIAL KERATOPLASTY(DMEK) Right 04/17/2019 ENDOTHELIAL KERATOPLASTY/DSAEK Right 03/18/2019 ESOPHAGOGASTRODUODENOSCOPY TRANSORAL DIAGNOSTIC 06/21/2021 PAST SURGICAL HISTORY OF 1972 parathyroid adenoma surgery PAST SURGICAL HISTORY OF 1988 hysterectomy with prolapsed bladder repair PAST SURGICAL HISTORY OF 1992 abdominoplasty PAST SURGICAL HISTORY OF 1993 breast reduction PAST SURGICAL HISTORY OF 1979 deviated septum repair PAST SURGICAL HISTORY OF 1966 D&C after miscarriage PAST SURGICAL HISTORY OF 2013 Total right knee repalcement PAST SURGICAL HISTORY OF 11/2013 total left knee replacement PAST SURGICAL HISTORY OF 2015 rectocele repair with vaginal mesh PAST SURGICAL HISTORY OF 11/01/2015 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 PAST SURGICAL HISTORY OF 2019 DMEK Corneal Transplant-Right eye PAST SURGICAL HISTORY OF Left 10/10/2019 INJECTION, ANTERIOR CHAMBER OF EYE; AIR PAST SURGICAL HISTORY OF Right 1996 cyst removal off right 4 toe PAST SURGICAL HISTORY OF hammer toe surgery PRQ CARDIAC STENT W/ANGIO 1 VSL 03/02/2021 90% blockage RCA SKIN LESION BIOPSY 10/2015 x2 face YAG CAPSULOTOMY OD (RIGHT EYE) 2017 YAG CAPSULOTOMY OS (LEFT EYE) 2017 ALLERGIES: Bacitracin (Bulk), Codeine, Dust Mites, Gentamicin, Mold, Sulfa (Sulfonamide Antibiotics), Sulfabenzamide, and Tree Pollen-Red Maple Medications reviewed: Yes FAMILY HISTORY Problem Relation Age of Onset Heart Mother Diabetes Mother Heart Father Stroke Father Cataract Paternal Grandfather Glaucoma Other SOCIAL HISTORY: Social History Tobacco Use Smoking status: Never Smokeless tobacco: Never Tobacco comments: Second hand smoke (mother) Vaping Use Vaping Use: Never used Substance Use Topics Alcohol use: Yes Alcohol/week: 1.0 standard drink Types: 1 Glasses of wine per week Comment: 3-4 glasses of wine per year Drug use: Never Kemal works out regularly 5-6 times per week with [employer]. She watches her diet for sodium, low fat and low cholesterol most of the time. List of current specialists seen: Cardiology: Dr. Fitch, CAD with stent placement OBGYN: Routine vaginal exams Optometry: Dr. Gu seen a month ago for routine exam. End of Live Planning discussed including patients advanced directive wishes: Yes I am willing to follow Kemal's advanced directives. PHQ-2 / Depression screen She in the past two weeks denies having felt down, depressed, hopeless, or with little interest or pleasure in doing things. Functional Ability/Safety Screen 1. Was the patient's timed Up and Go test unsteady or longer than 30 seconds? No 2. Does the patient need help with the phone, transportation, shopping,preparing meals, housework, laundry, medications or managing money? No 3. Does your home have rugs in the hallway, lack of grab bars in the bathroom, lack of handrails on the stairs or have poor lighting? No Hearing Evaluation: normal PHYSICAL EXAM BP 132/80 Pulse 68 Temp 36.7 C (98 F) (Temporal) Resp 16 Ht 169.2 cm (5' 6.63) Wt 121.1 kg (267 lb) SpO2 97% BMI 42.28 kg/m Alert and oriented X 3: YES Body mass index is 42.28 kg/m . CDT normal 3/3 word recall. ASSESSMENT/PLAN: 77 year old female The following prevention plan was discussed during the office visit and provided to the patient: - Counseled on healthy diet and regular exercise - Discussed need for and benefit of weight loss. BMI 42.28 kg/(m^2) - Fall avoidance - Vaccines recommended Tdap at pharmacy - Lipid panel - Depression screening - Substance use screening - Glaucoma screening Екатерина Escalante APRN.BILL CC: Patient presents with: Medicare Wellness Exam: Annual Medicare Wellness HPI Kemal Cantu is a 77 year old female who presents today for annual medicare wellness. HTN/HLD/CAD: Ms. Cantu indicates that she is feeling well and denies any symptoms referable to elevated blood pressure. Specifically denies headache, chest pain, palpitations, dyspnea, exercise intolerance, and peripheral edema. Patient denies any side effects of her medication(s) and is compliant with their regimen. She does not check BP's generally. Kemal works out regularly 5-6 times per week with [employer]. She watches her diet for sodium, low fat and low cholesterol most of the time. Last 3 Encounter BP Readings: Date: BP: 11/16/2022 132/80 09/30/2022 156/98 08/17/2022 142/84 DIABETES MELLITUS: Ms. Cantu denies excessive thirst or increased frequency of urination, chest pain or dyspnea , numbness, tingling or pain in extremities, new or unusual visual symptoms, low sugar/hypoglycemic reactions, weight loss/gain, lightheadedness/dizziness, and bowel changes/loose stools. Follows a diabetic diet most of the time. She is compliant with medication(s) and is tolerating med(s) without any side effects. She reports checking her glucose on a 1-2 times aday but not had a monitor. Just got a monitor recently and going to start again. Patient's last HgA1C was Hemoglobin A1C (%) Date Value 08/17/2022 5.6 02/03/2022 5.7 08/18/2021 6.6 05/18/2021 6.1 ) Last Ophthalmology exam was within the past 3 months Hypothyroidism: Takes medication daily as prescribed. Denies abnormal changes in weight, fatigue, or intolerance to heat/cold. REVIEW OF SYSTEMS General: no fevers, no chills, no night sweats, no recurrent infections, no change in appetite, no change in energy, and no significant changes in weight Respiratory: no cough, no wheezing, no shortness of breath, no hemoptysis Cardiovascular: no chest pain, no chest pressure, no palpitations, and no swelling Psych: PHQ2 is 0 Endocrine: no fatigue, no weight gain, no weight loss, no cold intolerance, no heat intolerance, no polyuria, no polyphagia, and no polydipsia Neurologic: No hweakness, numbness, tingling, dizziness, memory loss, syncope. PAST MEDICAL HISTORY Diagnosis Date Diabetes mellitus (HCC) Fibromyalgia Fuchs' corneal dystrophy Gastroesophageal reflux disease Glaucoma HTN (hypertension) Hypothyroidism Irritable bowel syndrome Migraines MAURICE (obstructive sleep apnea) does not use c-pap Osteoarthritis Plantar fasciitis PONV (postoperative nausea and vomiting) Pseudophakia PTSD (post-traumatic stress disorder) Restless leg syndrome Sleep apnea in adult TMJ (dislocation of temporomandibular joint) PAST SURGICAL HISTORY Procedure Laterality Date CATARACT EXTRACTION W/ INTRAOCULAR LENS IMPLANT HX Bilateral 2016 COLONOSCOPY FLX DX W/COLLJ SPEC WHEN PFRMD 06/21/2021 CORNEAL TISSUE DSAEK/DMEK Left 09/30/2019 Dr. Clark ENDOTHELIAL KERATOPLASTY(DMEK) Right 04/17/2019 ENDOTHELIAL KERATOPLASTY/DSAEK Right 03/18/2019 ESOPHAGOGASTRODUODENOSCOPY TRANSORAL DIAGNOSTIC 06/21/2021 PAST SURGICAL HISTORY OF 1972 parathyroid adenoma surgery PAST SURGICAL HISTORY OF 1988 hysterectomy with prolapsed bladder repair PAST SURGICAL HISTORY OF 1992 abdominoplasty PAST SURGICAL HISTORY OF 1993 breast reduction PAST SURGICAL HISTORY OF 1979 deviated septum repair PAST SURGICAL HISTORY OF 1965 D&C after miscarriage PAST SURGICAL HISTORY OF 2013 Total right knee repalcement PAST SURGICAL HISTORY OF 11/2013 total left knee replacement PAST SURGICAL HISTORY OF 2015 rectocele repair with vaginal mesh PAST SURGICAL HISTORY OF 11/01/2015 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 PAST SURGICAL HISTORY OF 2019 DMEK Corneal Transplant-Right eye PAST SURGICAL HISTORY OF Left 10/10/2019 INJECTION, ANTERIOR CHAMBER OF EYE; AIR PAST SURGICAL HISTORY OF Right 1996 cyst removal off right 4 toe PAST SURGICAL HISTORY OF hammer toe surgery PRQ CARDIAC STENT W/ANGIO 1 VSL 03/02/2021 90% blockage RCA SKIN LESION BIOPSY 10/2015 x2 face YAG CAPSULOTOMY OD (RIGHT EYE) 2017 YAG CAPSULOTOMY OS (LEFT EYE) 2017 ALLERGIES Bacitracin (Bulk), Codeine, Dust Mites, Gentamicin, Mold, Sulfa (Sulfonamide Antibiotics), Sulfabenzamide, and Tree Pollen-Red Maple MEDICATIONS levothyroxine (SYNTHROID) 75 mcg tablet take 1 tablet by mouth once daily ON AN EMPTY STOMACH Lancets lancets Test blood sugar(s) 1 times daily. Dx: Type 2 DM - Controlled E11.9 Insulin: No clonazePAM (KLONOPIN) 0.5 mg tablet Take 1/2 to 1 tablet at bedtime as needed. blood sugar diagnostic (BLOOD GLUCOSE TEST) test strip Test blood sugar(s) 2 times daily. Dx: Type 2 DM - Controlled E11.9 Insulin: No (Patient not taking: Reported on 09/30/2022) semaglutide (OZEMPIC) 1 mg/dose (2 mg/1.5 mL) pen Inject 1 mg subcutaneously one time a week. montelukast (SINGULAIR) 10 mg tablet Take 1 tablet by mouth daily at bedtime. buPROPion SR (ZYBAN SR; WELLBUTRIN SR) 150 mg 12 hr tablet take 1 tablet by mouth once daily fluticasone (FLONASE) 50 mcg/actuation nasal spray instill 2 sprays into each nostril once daily valsartan (DIOVAN) 320 mg tablet Take 1 tablet by mouth once daily. omeprazole (PRILOSEC) 40 mg capsule Take 1 capsule by mouth twice daily. metFORMIN (GLUCOPHAGE) 1,000 mg tablet Take 1 tablet by mouth daily with breakfast. ketoconazole (NIZORAL) 2 % cream Apply to affected area once daily. Used for fungal skin fold rashes LUMIGAN 0.01 % drop ophthalmic drops instill 1 drop into both eyes once daily at bedtime pramipexole (MIRAPEX) 0.125 mg tablet Take 2 tablets by mouth four times daily. atorvastatin (LIPITOR) 10 mg tablet Take 1 tablet by mouth once daily. ubidecarenone (COENZYME Q10) 100 mg tab Take 200 mg by mouth once daily. simethicone (GAS-X ORAL) Take 125 mg by mouth twice daily. multivit,thx,calcium,iron,mins (MULTIVITAMIN AND MINERAL ORAL) Take by mouth. vitamin K2 100 mcg cap Take 100 mcg by mouth. Zinc 50 mg tab Take 50 mg by mouth. amLODIPine (NORVASC) 2.5 mg tablet Take 2.5 mg by mouth once daily. conjugated estrogens (PREMARIN) vaginal cream Use 0.5 g vaginally two times a week. metoprolol tartrate, short acting, (LOPRESSOR) 50 mg tablet Take 50 mg by mouth twice daily. Bifidobacterium infantis (ALIGN ORAL) Take 1 tablet by mouth once daily. LOW-DOSE ASPIRIN ORAL Take 81 mg by mouth once daily. blood sugar diagnostic (Cool ContainersTOUCH ULTRA TEST) test strip Test blood sugar once a day DX: E11.9 diclofenac sodium (VOLTAREN) 1 % topical gel Apply 2 g to affected area four times daily. amoxicillin (POLYMOX, AMOXIL) 500 mg capsule Take 500 mg by mouth. Take 4 capsules 1 hour before dental procedures. ascorbic acid, vitamin C, (VITAMIN C) 250 mg tablet Take 250 mg by mouth once daily. ferrous sulfate EC 324 mg (65 mg iron) TbEC Take 324 mg by mouth once daily. cholecalciferol (VITAMIN D3) 50 mcg (2,000 unit) tablet Take 2,000 Units by mouth once daily. FAMILY HISTORY Problem Relation Age of Onset Heart Mother Diabetes Mother Heart Father Stroke Father Cataract Paternal Grandfather Glaucoma Other Social History Tobacco Use Smoking status: Never Smokeless tobacco: Never Tobacco comments: Second hand smoke (mother) Vaping Use Vaping Use: Never used Substance Use Topics Alcohol use: Yes Alcohol/week: 1.0 standard drink Types: 1 Glasses of wine per week Comment: 3-4 glasses of wine per year Drug use: Never PHYSICAL EXAM BP 132/80 Pulse 68 Temp 36.7 C (98 F) (Temporal) Resp 16 Ht 169.2 cm (5' 6.63) Wt 121.1 kg (267 lb) SpO2 97% BMI 42.28 kg/m General Appearance: well appearing, in no acute distress, alert Pysch: mood and affect broad and appropriate Skin: Skin color, texture, turgor normal for age; Eyes: conjunctiva pink and moist, no icterus, sclera white, non-injected Neck: Thyroid normal size and symmetric without palpable nodules, No bruits, Neck supple, No adenopathy Lymph nodes: No cervical lymphadenopathy and No supraclavicular lymphadenopathy Lungs: Lungs clear to auscultation. No wheezing, rhonchi, rales. Heart: RRR without murmur, gallop, or rubs. No ectopy Health maintenance reviewed with patient: BP CONTROLLED (<130/80) Never done PNEUMOCOCCAL: 65+(2 - PPSV23 if available, else PCV20) due on 08/03/2019 DTAP,TDAP,TD(2 - Td or Tdap) due on 06/08/2021 ADVANCE DIRECTIVE DISCUSSION due on 08/14/2022 SHINGRIX VACCINE(2 of 2) due on 02/11/2023 COVID-19 VACCINE(4 - Booster for Moderna series) due on 02/11/2023 URINE ALBUMIN:CREATININE RATIO due on 02/03/2023 LDL CHOLESTEROL due on 02/03/2023 DIABETIC FOOT EXAM due on 02/11/2023 HBA1C due on 02/14/2023 DILATED RETINAL EXAM due on 03/04/2023 ANNUAL PCP TEAM CHRONIC DISEASE VISIT due on 08/17/2023 SERUM CREATININE due on 08/17/2023 BONE DENSITY Completed INFLUENZA Completed HEPATITIS C SCREENING Discontinued DATA REVIEWED: No new labs ASSESSMENT/PLAN: 1. Medicare annual wellness visit, subsequent - ICD9: V70.0, ICD10: Z00.00 (primary diagnosis) - see medicare wellness note - Counseled on healthy diet and regular exercise - Calcium intake with supplements or by diet of 1000 mg/day for under 50, 9669-1529 mg/day for 50+ - Discussed need and benefit for weight loss. BMI 42.28 kg/(m^2) - Depression screening tool completed and reviewed with patient. Based on score and interview, patient is not at risk for depression and recommended no further intervention at this time. - Follow up for annual exam in one year 2. Hypothyroidism, unspecified type - ICD9: 244.9, ICD10: E03.9 - asymptomatic - Instructed patient on importance of taking on an empty stomach either first thing in the morning or at bedtime. - TSH BLD 3. Essential hypertension, benign - ICD9: 401.1, ICD10: I10 - good control - Continue current medication(s) - Encouraged dietary sodium restriction/DASH diet - Recommended regular aerobic exercise. - Recommend home blood pressure monitoring, to bring results in on next visit - Goal of BP <130/80 - CBC + DIFF - COMP METABOLIC PANEL 4. Type 2 diabetes mellitus with other specified complication, without long-term current use of insulin (HCC) - ICD9: 250.80, ICD10: E11.69 - Controlled - Continue current medications - Blood glucose monitoring on a once daily schedule - Counseled on healthy diet and regular exercise - Discussed need for and benefit of weight loss. BMI 42.28 kg/(m^2) - CBC + DIFF - COMP METABOLIC PANEL - HGB A1C 5. Mixed hyperlipidemia - ICD9: 272.2, ICD10: E78.2 - to be determined upon return of lab results - Continue current medication. - Encouraged following a low fat, low cholesterol diet. - Discussed the benefits of regular aerobic exercise and weight loss. - COMP METABOLIC PANEL - LIPID PANEL BASIC 6. 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 Potential red flag symptoms discussed with the patient. Reviewed appropriate action plan to take if red flag symptoms occur. Patient agreeable to treatment plan. Екатерина Escalante APRN.CNP documented in this encounter [facility] 11-11-2022 History of Presen t illness Narrative in[facility] CDM Engagement Provider Action/FYI: CDM: CKD Spk with Pt she noted has lost 35 lbs attempting to get her BMI<40 with the plan to have her Right hip replacement completed. Pt denies needs or concerns. My chart Chronic Disease questionnaire location/ reminder provided Pt verbalized understanding and appreciation for call. Contact Made with Patient: Yes Patient identified by name and . Discussed care with patient Grey peters name is Hedy Owens RN your Public Administration Professor from Helen Chapa MD office at the [facility]. I am reaching out today because I noticed it has been a few weeks since I have seen any responses from you on your questionnaire. I wanted to check on you and make sure you are doing well, and to remind you that your Helen Chapa MD recommended this program for you so that you can stay better connected to your health. I will be monitoring your responses on the questionnaire to make sure we are not seeing any changes in your health that your Primary Care Physician needs to know about, or looking for improvements and keeping Helen Chapa MD informed about it all. You and I will check in together anytime a problem arises, and determine a solution. I am here to help you stay healthy, and stay connected to your doctor's office. How can I help you in this program? The patient informs that she forgot. Please take some time today to answer the questionnaire. I am looking forward to receiving your answers. If I do not receive your answers in the next 2 business days I will check back in. MICKY Education Ordered -: No --END CALL Hedy Owens RN November 11, 2022 3:42 PM documented in this encounter [facility] 10-25-2022 Miscellaneous Notes Pt called and is notified of providers message and instructions. Pt voices understanding. Nadia Bourgeois RN The following approved medication requests have been transmitted electronically. Requested Prescriptions Signed Prescriptions Disp Refills Lancets lancets 100 Each 3 Sig: Test blood sugar(s) 1 times daily. Dx: Type 2 DM - Controlled E11.9 Insulin: No Authorizing Provider: CASSIDY ESCALANTE Blood-Glucose Meter monitoring kit 1 Each 0 Sig: Glucose Meter (patient has Countour next test strips): Test blood sugar(s) 1 times daily. Dx: Type 2 DM - Controlled E11.9 Insulin: No Authorizing Provider: CASSIDY ESCALANTE APRN.CNP Patient said back in August Dr. Chapa order a new glucometer, test strips and lancets for her. She only got the test strips. Pharmacy told her because she didn't sampler pickup the glucometer when it was initially ready, the order . She was never given the lancets either. Please see encounters dated 09/06/22 & 09/08/22 for reference. Please advise patient at [phone] when resolved. documented in this encounter [facility] 10-25-2022 Miscellaneous Notes Patient has been identified by name and date of : No Patient phones for refill(s): Requested Prescriptions Pending Prescriptions Disp Refills levothyroxine (SYNTHROID) 75 mcg tablet 90 tablet 1 Sig: take 1 tablet by mouth once daily ON AN EMPTY STOMACH Date of last office visit in primary care: 08/17/2022 Last 2 Encounter Wt Readings: Date: Wt: 10/03/2022 121.1 kg (267 lb) 09/30/2022 119.6 kg (263 lb 9.6 oz) Previous labs/tests for medication: Thyroid: TSH Date Value 08/17/2022 2.970 mIU/L 05/18/2021 3.710 uU/mL Please advise. Thank you. Beatriz Ballard LPN Patient has been identified by name and date of : Yes Requested Prescriptions Pending Prescriptions Disp Refills levothyroxine (SYNTHROID) 75 mcg tablet 90 tablet 1 Sig: take 1 tablet by mouth once daily ON AN EMPTY STOMACH RX INSTRUCTIONS: Patient aware RX will be sent to pharmacy. No need to notify patient. Jessica Bryson Pss documented in this encounter [facility] 10-04-2022 Miscellaneous Notes TE with PT and she states she was able to sleep longer last night with the additional Mirapex at 5 pm. She took half a klonopin as well and that was helpful. I let her know to take another Mirapex at bedtime and see how that will help. She was agreeable and will call back if she has any other questions. Alessia Mercado LPN Pt can take additional Mirapex at bedtime. However I do not agree with patient taking this much Mirapex with concern for Augmentation which was discussed with patient this last visit. If patient does not agree, can obtain a second opinion. Hollie Blevins MD Yes, first she took 1/2 and the second night took a whole tablet. Nothing seemed to help. Alessia Mercado LPN Also, did patient take the Klonopin? Hollie Blevins MD TE with pt says she is up until 3 am and she took a nap yesterday afternoon 2 hours. Pt is complaining of symptoms so bad she has to walk around. Pt is not doing a bedtime routine or anything to try and get ready for bed. Alessia Mercado LPN Please find out what time patient is sleeping and for how long during intervals. Hollie Blevins MD Patient calls and states that she has only gotten about 2 hours of sleep since Monday when her medications were adjusted. Patient states that she has been taking the Mirapex 1 tablet 2pm, 1 tablet 5 PM, and 2 tablets at 10 PM. Patient states that she wants to add one more tablet of Mirapex somewhere in the schedule to see if that helps. Please review and advise, Nat Manriquez RN documented in this encounter [facility] 10-03-[address] - 10/03/2022 8:27 AM EST Here are ways to start incorporating more vegetables into your diet. Try roasting vegetables-this mellows the flavors. Try cooking veggies in tomato sauce or broth. Try grilling vegetables, slightly batsheva grilled veggies taste wonderful. Try a vegetable spiralizer to make veggies interesting in shape and mix in with other foods like pasta for example. Buy baby veggies-these naturally are more sweet and less bitter. Toss in flavor infused olive oil to bind the spices and herbs. Consider using a dip such as a Czech yogurt based (nonfat plain Czech yogurt with dressing mix or other seasonings). Thor veggies then dip in cold water to stop the cooking process and yield sweeter and milder tasting veggies. Slow roast or cook those in the onion family such as leeks, shallots, garlic etc to yield a mild sweet flavor. Consider adding finely chopped veggies to foods to sneak them in or puree to add to broths and sauces. A good source for recipes can be found in Eating Well or Cooking Light and a variety of other sources Make a planned evening snack of something healthy Increasing exercise to 4 days per week and work on increasing time ,add weight resistance 2-3 x per week Continue to work on mindful eating documented in this encounter [facility] 10-03-2022 History of Presen t illness Narrative Nutritional Therapy Re-Assessment Nutrition Diagnosis: Overweight/obesity, related to, excess energy intake and physical inactivity, as evidenced by BMI above normative standard for age and gender RECOMMENDED MALNUTRITION DIAGNOSIS: NO MALNUTRITION IDENTIFIED NUTRITION CARE PLAN: Nutrition Intervention 10/03/2022: modify type and amount of food or beverage Here are ways to start incorporating more vegetables into your diet. Try roasting vegetables-this mellows the flavors. Try cooking veggies in tomato sauce or broth. Try grilling vegetables, slightly batsheva grilled veggies taste wonderful. Try a vegetable spiralizer to make veggies interesting in shape and mix in with other foods like pasta for example. Buy baby veggies-these naturally are more sweet and less bitter. Toss in flavor infused olive oil to bind the spices and herbs. Consider using a dip such as a Czech yogurt based (nonfat plain Czech yogurt with dressing mix or other seasonings). Thor veggies then dip in cold water to stop the cooking process and yield sweeter and milder tasting veggies. Slow roast or cook those in the onion family such as leeks, shallots, garlic etc to yield a mild sweet flavor. Consider adding finely chopped veggies to foods to sneak them in or puree to add to broths and sauces. A good source for recipes can be found in Eating Well or Cooking Light and a variety of other sources Make a planned evening snack of something healthy Increasing exercise to 4 days per week and work on increasing time ,add weight resistance 2-3 x per week Continue to work on mindful eating Nutrition Monitoring & Evaluation: 1-2 lb weight loss per week Need for Follow up: 4-6 weeks PROGRESS: Interval History: following as relats to class 3 obesity Body mass index is 41.82 kg/m . DM, CKD, GERD, CAD . Has been following plan well, able to lose 10 lbs since last visit, was lower until birthday celebrations this weekend. Motivated to lose weight to have hip replacement surgery. Does not sleep well with restless leg, last night 2 hours sleep. Started back with regular exercise, working on icreasing . Nutrition Intervention 08/22/22 Do shopping immediately after meal, keep junk out of house - partially Make a shopping list and shop only from a list If able no eating after dinner Include protein in meals Work on regular schedule of sleeping/waking Continue working to improve mindful eating Actions to implement interventions: More mindful eating Diet History: Breakfast - 5 -breakfast bar and yogurt; coffee with half n half Snack - no Lunch - 11-tabouli, hummus and skyla janeth, biscuit with veggies; Snack - no Dinner - 4:30-5-hummus, soup, sandwich, stuffed creapes, soup and salad, stir pinto chicken with rice or noodles; Snack - sweets Beverages - coffee, water, diet soda Alcohol - rare Vitamins/Supplements - see medlist Activity: Activities of Daily Living: varies Additional Activity: Moderately active (Moderate intensity exercise: Planned physical activity 3-5 days/week) Just got exercise bike, trying for every other day-30 min. Moving furniture and renovations. Anthropometrics: Height: Last 1 Encounter Ht Readings: Date: Ht: 10/03/2022 170.2 cm (5' 7) Current weight: Last 1 Encounter Wt Readings: Date: Wt: 10/03/2022 121.1 kg (267 lb) Body mass index is 41.82 kg/m . Resting Metabolic Rate: 1733 Malnutrition Screening Significant unintentional weight loss? No Eating less than 75% of usual intake for more than 2 weeks? No Potential Signs of Inflammation: no identifiable sources Nutritional status: Education Materials Provided: None this visit READINESS TO LEARN Cognitive ability: Alert and oriented Motivation to learn: Interested Family support: Unable to assess - Family not present Instruction provided to: Patient Patient learns best by: Individual Instruction Factors affecting learning: None Physical limitations affecting learning: None Likelihood of Adherence: Moderate Referred/Supervised by: Noah CLEMENTS Billing Type: Re-assess/15 min 2 units SIGNATURE: Radha High RD PATIENT NAME: Kemal Cantu DATE: October 03, 2022 TIME: 8:02 AM documented in this encounter [facility] 09-30-2022 Instructions Hollie Blevins Jr., MD - 09/30/2022 10:19 AM EST Stop Lyrica. 2. Restart Horizant 300mg -- take 1 tablet at 2PM, then 2 tablets at 5PM 3. Change Mirapex 0.125mg such that -- take 1 tablet at 2PM with Horizant, 1 tablet at 5PM with the Horizant, and 2 tablets at 10PM. 4. If absolutely needed at bedtime, can then take 1/2 to 1 tablet of Klonopoin 0.5mg. 5. Increase your Iron tablet so that you take 1 with breakfast and 1 with dinner. documented in this encounter [facility] 09-30-2022 History of Presen t illness Narrative ESTABLISHED PATIENT VISIT CHIEF COMPLAINT: Follow Up HISTORY OF PRESENT ILLNESS: Kemal Cantu is a 76 year old female, with a PMH significant for and per last visit of 05/19/22 (with Bridger Cee CNP). G25.81 RLS (restless legs syndrome) (primary encounter diagnosis) D50.9 Iron deficiency anemia, unspecified iron deficiency anemia type Comment: Hx of RLS of uncertain etiology. 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 She is currently taking Mirapex 2 tablets 0.125mg at dinner, 9PM, and bedtime with occasional use of two additional tablets. Also taking Horizant 900mg with dinner. Today she reports worsening of symptoms. Symptoms are starting earlier in the day and can wake her up overnight typically around 4AM. Last iron and ferritin levels were obtained in August and will update at this time (note, recent surgery at time of worsening). Again discussed risk of augmentation with use of Mirapex and if sx are worsening, may consider decreasing dose. In interim will transition from Horizant to Lyrica 75mg with dinner and 75mg at bedtime. She will notify office if symptoms worsen otherwise she will provide update in two weeks. Can consider further titration of Lyrica if needed. G47.33 MAURICE (obstructive sleep apnea) Comment: Hx of MAURICE with [place]. She has been sleeping upright which improved sx, however, she reports she would be interested in further testing as she desires to return to sleeping supine/side laying. Discussed completing updated sleep study and she is agreeable to complete HSAT, however, she reports she is currently unable to complete the study due to home renovations and will notify the office when renovations are complete and she is ready to proceed with the study. Lyrica not working for RLS. States her symptoms are now the worst they have ever been in her life. Patient is on Fe supplements but uncertain if she was taking at time of last Ferritin level in 05/2022. Note, only taking Fe 324mg once daily. Currently RLS is starting at about 230PM (not consistent but notes if sitting for a prolonged duration). Is off an on until about 5 PM and then real consistent. Takes first Mirapex tablet at dinner (5PM) and second dose at about 8-9PM and then a third dose at bedtime (in total taking 8x 0.125mg tablets). Lyrica dose is 75mg. Pt felt the Horizont worked better than the Lyrica. States gabapentin never worked. Pt sleep sitting up. Still without bedroom. Uncertain if snores or witnessed apneas. REVIEW OF SYSTEMS GENERAL:No weight loss, malaise or fevers. HEENT:Negative for frequent or significant headaches, No changes in hearing or vision, no nose bleeds or other nasal problems RESPIRATORY: Negative for cough, wheezing or shortness of breath. CARDIOVASCULAR: Negative for chest pain, leg swelling or palpitations. GASTROINTESTINAL: Negative for abdominal discomfort, blood in stools or black stools or change in bowel habits GENITOURINARY: No history of dysuria, frequency or incontinence MUSCULOSKELETAL: Negative for joint pain or swelling, back pain or muscle pain. NEUROLOGIC:Negative for focal numbness or weakness, headaches and dizziness or syncope, vision changes, speech/languag changes - EXCEPT that as per HPI above. LAB/IMAGING: Those performed since patient's last visit have been reviewed. WBC (k/uL) Date Value 08/17/2022 5.32 RBC (m/uL) Date Value 08/17/2022 4.62 Hemoglobin (g/dL) Date Value 08/17/2022 13.1 Hematocrit (%) Date Value 08/17/2022 40.8 MCV (fL) Date Value 08/17/2022 88.3 MCH (pg) Date Value 08/17/2022 28.4 MCHC (g/dL) Date Value 08/17/2022 32.1 RDW-CV (%) Date Value 08/17/2022 14.2 Platelet Count (k/uL) Date Value 08/17/2022 232 MPV (fL) Date Value 08/17/2022 10.4 Glucose (mg/dL) Date Value 08/17/2022 100 (H) BUN (mg/dL) Date Value 08/17/2022 14 Creatinine (mg/dL) Date Value 08/17/2022 0.90 Sodium (mmol/L) Date Value 08/17/2022 139 Potassium (mmol/L) Date Value 08/17/2022 4.3 Chloride (mmol/L) Date Value 08/17/2022 102 CO2 (mmol/L) Date Value 08/17/2022 27 Protein, Total (g/dL) Date Value 04/28/2021 6.9 Albumin (g/dL) Date Value 04/28/2021 4.0 Calcium, Total (mg/dL) Date Value 08/17/2022 9.7 Alkaline Phosphatase (U/L) Date Value 04/28/2021 93 Bilirubin, Total (mg/dL) Date Value 04/28/2021 0.3 AST (U/L) Date Value 04/28/2021 33 ALT (U/L) Date Value 04/28/2021 44 (H) MEDICATIONS: blood sugar diagnostic (BLOOD GLUCOSE TEST) test strip Test blood sugar(s) 2 times daily. Dx: Type 2 DM - Controlled E11.9 Insulin: No Lancets lancets Test blood sugar(s) 2 times daily. Dx: Type 2 DM - Controlled E11.9 Insulin: No semaglutide (OZEMPIC) 1 mg/dose (2 mg/1.5 mL) pen Inject 1 mg subcutaneously one time a week. pregabalin (LYRICA) 75 mg capsule Take 1 capsule by mouth twice daily for 90 days. Take one capsule with dinner and one capsule at bedtime. montelukast (SINGULAIR) 10 mg tablet Take 1 tablet by mouth daily at bedtime. buPROPion SR (ZYBAN SR; WELLBUTRIN SR) 150 mg 12 hr tablet take 1 tablet by mouth once daily fluticasone (FLONASE) 50 mcg/actuation nasal spray instill 2 sprays into each nostril once daily valsartan (DIOVAN) 320 mg tablet Take 1 tablet by mouth once daily. omeprazole (PRILOSEC) 40 mg capsule Take 1 capsule by mouth twice daily. levothyroxine (SYNTHROID) 75 mcg tablet take 1 tablet by mouth once daily ON AN EMPTY STOMACH metFORMIN (GLUCOPHAGE) 1,000 mg tablet Take 1 tablet by mouth daily with breakfast. ketoconazole (NIZORAL) 2 % cream Apply to affected area once daily. Used for fungal skin fold rashes LUMIGAN 0.01 % drop ophthalmic drops instill 1 drop into both eyes once daily at bedtime pramipexole (MIRAPEX) 0.125 mg tablet Take 2 tablets by mouth four times daily. atorvastatin (LIPITOR) 10 mg tablet Take 1 tablet by mouth once daily. ubidecarenone (COENZYME Q10) 100 mg tab Take 200 mg by mouth once daily. simethicone (GAS-X ORAL) Take 125 mg by mouth twice daily. multivit,thx,calcium,iron,mins (MULTIVITAMIN AND MINERAL ORAL) Take by mouth. vitamin K2 100 mcg cap Take 100 mcg by mouth. Zinc 50 mg tab Take 50 mg by mouth. amLODIPine (NORVASC) 2.5 mg tablet Take 2.5 mg by mouth once daily. conjugated estrogens (PREMARIN) vaginal cream Use 0.5 g vaginally two times a week. metoprolol tartrate, short acting, (LOPRESSOR) 50 mg tablet Take 50 mg by mouth twice daily. Bifidobacterium infantis (ALIGN ORAL) Take 1 tablet by mouth once daily. LOW-DOSE ASPIRIN ORAL Take 81 mg by mouth once daily. blood sugar diagnostic ([employer] ULTRA TEST) test strip Test blood sugar once a day DX: E11.9 diclofenac sodium (VOLTAREN) 1 % topical gel Apply 2 g to affected area four times daily. amoxicillin (POLYMOX, AMOXIL) 500 mg capsule Take 500 mg by mouth. Take 4 capsules 1 hour before dental procedures. ascorbic acid, vitamin C, (VITAMIN C) 250 mg tablet Take 250 mg by mouth once daily. ferrous sulfate EC 324 mg (65 mg iron) TbEC Take 324 mg by mouth once daily. cholecalciferol (VITAMIN D3) 50 mcg (2,000 unit) tablet Take 2,000 Units by mouth once daily. HISTORIES PAST MEDICAL HISTORY Diagnosis Date Diabetes mellitus (HCC) Fibromyalgia Fuchs' corneal dystrophy Gastroesophageal reflux disease Glaucoma HTN (hypertension) Hypothyroidism Irritable bowel syndrome Migraines MAURICE (obstructive sleep apnea) does not use c-pap Osteoarthritis Plantar fasciitis PONV (postoperative nausea and vomiting) Pseudophakia PTSD (post-traumatic stress disorder) Restless leg syndrome Sleep apnea in adult TMJ (dislocation of temporomandibular joint) FAMILY HISTORY Problem Relation Age of Onset Heart Mother Diabetes Mother Heart Father Stroke Father Cataract Paternal Grandfather Glaucoma Other SOCIAL HISTORY Social History Tobacco Use Smoking status: Never Smokeless tobacco: Never Tobacco comments: Second hand smoke (mother) Vaping Use Vaping Use: Never used Substance Use Topics Alcohol use: Yes Alcohol/week: 1.0 standard drink Types: 1 Glasses of wine per week Comment: 3-4 glasses of wine per year Drug use: Never PHYSICAL EXAMINATION Blood pressure 156/98, pulse 87, resp. rate 16, weight 119.6 kg (263 lb 9.6 oz), SpO2 98 %. GENERAL EXAM: General appearance: NAD, pleasant. HEENT: NC/AT, nasal congestion absent, no oral lesions, membranes moist. NECK: No masses, supple. Lungs: CTA bilaterally. CV: RRR nl S1, S2. No carotid bruits. Extr: No cyanosis, clubbing or edema. Skin: Cool to touch. NEUROLOGICAL EXAM: General: Awake, alert, oriented x3 (person,place,time), speech fluent, no dysarthria; comprehension, naming, repetition intact. CN: PERRL, fundi with no evidence of papilledema, EOMI and without nystagmus, VFF to confrontation, facial sensation and strength are normal and symmetric, hearing is intact to finger rub bilaterally, palate and tongue movements are intact and symmetric. SCM and trapezius strength normal. Motor: Normal tone, bulk and strength (5/5) bilaterally (throughout extremities x4). Coordination: FNF, JARAD, HTS intact. No tremors. Sensation: Light touch intact throughout. No evidence of neglect. Gait: Stable with normal stride and arm swing. Assessment and Plan: ASSESSMENT/PLAN: 1. RLS (restless legs syndrome) - ICD9: 333.94, ICD10: G25.81 (primary diagnosis) Patient with worsening RLS symptoms, including symptoms occurring earlier in the night. Suspect due to augmentation with patient increasing her Mirapex since last visit without being instructed to do so. Patient to come extent compulsive with regards to her Mirapex dosing, and at this time, upset that I discussed decreasing the dose with her. She does fel that the Horizant worked better for her symptoms than Lyrica. She is opposed to trying Neupro patch as fear it will harm her skin. Discussed again, dx, etiology, physiology and treatment of RLS. Patient agrees with plan as follows: Stop Lyrica. 2. Restart Horizant 300mg -- take 1 tablet at 2PM, then 2 tablets at 5PM 3. Change Mirapex 0.125mg such that -- take 1 tablet at 2PM with Horizant, 1 tablet at 5PM with the Horizant, and 2 tablets at 10PM. 4. If absolutely needed at bedtime, can then take 1/2 to 1 tablet of Klonopoin 0.5mg. 5. Increase your Iron tablet so that you take 1 with breakfast and 1 with dinner. 2. Iron deficiency anemia, unspecified iron deficiency anemia type - ICD9: 280.9, ICD10: D50.9 Low Ferritin might be contributing to RLS. Encouraged pt to increase FeSO4 to twice daily dosing. 3. MAURICE (obstructive sleep apnea) - ICD9: 327.23, ICD10: G47.33 Discussed in past the possible presence of MAURICE and further evaluation by HSAT. Pt defers at this time with similar complaint as last visit. However, need to approach topic again next visit. Discussed with patient: the physiology of OSAS, medical conditions associated with OSAS (DM, HTN, CAD, Depression, Stroke, Headache...) and treatment options (UPPP, Dental appliances, CPAP...). Encouraged weight loss, and continued compliance with other medications. Hollie Blevins MD I spent a total of 35+ minutes on the date of the service which included preparing to see the patient, [id number] patient care, completing clinical documentation, obtaining and/or reviewing separately obtained history, performing a medically appropriate examination, counseling and educating the patient/family/caregiver, and ordering medications, tests, or procedures. PDMP website checked and validated. All prescriptions have been APPROPRIATELY filled. No suspicious activity was identified. 09/30/2022 by Hollie Blevins MD documented in this encounter [facility] 09-20-2022 Miscellaneous Notes Instructed patient to continue to take Lyrica & wait to start Horizant until f/u with sleep department. Patient agreeable & verbalizes understanding of instructions. Gave patient the scheduling center # to schedule sleep f/u. Samira Rueda MA Can she wait to wean off the Lyrica and start the Horizant until she has her follow up appointment to discuss the medication changes? I'm not sure exactly why she wants to switch medications (SE, breakthrough symptoms, preference, etc.). Patient notified to wean off Lyrica & follow up. Patient states last night she had no complaints with the Lyrica it's the weirdest thing but does question at end of weaning period from Lyrica, should patient restart the Horizant or wait until follow up to address? Patient states she has a full bottle of Horizant that she had filled prior to the med change to Lyrica. Please advise. Samira Rueda MA MAGDY: 05/19/22 with KD NOV: No Neuro F/U scheduled at this time. Samira Rueda MA Assessment/Plan: G25.81 RLS (restless legs syndrome) (primary encounter diagnosis) D50.9 Iron deficiency anemia, unspecified iron deficiency anemia type Comment: Hx of RLS of uncertain etiology. 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 She is currently taking Mirapex 2 tablets 0.125mg at dinner, 9PM, and bedtime with occasional use of two additional tablets. Also taking Horizant 900mg with dinner. Today she reports worsening of symptoms. Symptoms are starting earlier in the day and can wake her up overnight typically around 4AM. Last iron and ferritin levels were obtained in August and will update at this time (note, recent surgery at time of worsening). Again discussed risk of augmentation with use of Mirapex and if sx are worsening, may consider decreasing dose. In interim will transition from Horizant to Lyrica 75mg with dinner and 75mg at bedtime. She will notify office if symptoms worsen otherwise she will provide update in two weeks. Can consider further titration of Lyrica if needed. G47.33 MAURICE (obstructive sleep apnea) Comment: Hx of MAURICE with [place]. She has been sleeping upright which improved sx, however, she reports she would be interested in further testing as she desires to return to sleeping supine/side laying. Discussed completing updated sleep study and she is agreeable to complete HSAT, however, she reports she is currently unable to complete the study due to home renovations and will notify the office when renovations are complete and she is ready to proceed with the study. Office Visit on 05/19/22 [facility] Laurie Cee APRN.CNP Pt has concerns about her Lyrica. She states she wants to go back on the old medication. She thought it was Horizant. Wants to know if she can quit taking the Lyrica or if she needs to ween off of it. documented in this encounter [facility] 09-16-2022 Miscellaneous Notes Patient notified, verbalized understanding. Wagner Hollingsworth Ma Patient calling with blood sugar results since stopping glyburide. Is no longer having low blood sugars or symptoms of low blood sugars. Fasting without glyburide is average low 100s, and post prandial in the 110s. Please let patient know to discontinue glyburide and follow up in 3 months. Thank you Екатерина Escalante APRN.BILL documented in this encounter [facility] 09-12-2022 History of Presen t illness Narrative Female Pelvic Medicine & Reconstructive Surgery Post-Op Visit Kemal Cantu is a 76 year old female who presents for a 4 Month post-op check s/p Sacrospinous ligament suspension of the vaginal vault/extraperitoneal colpopexy, Anterior colporrhaphy, Enterocele repair, Perineorrhaphy, and Cystoscopy. Pt reports doing well since surgery. Pt denies any urinary leakage or UI since surgery. Pt has urinary frequency but this is the same as before surgery. Pt denies any vaginal bleeding or discharge Post-op complications: no Bleeding: no Pain: no If you had pain related to your prolapse before surgery, has your pain resolved? Not Applicable Abnormal vaginal discharge: no Pathology: NA [id number] Do you: Usually experience pressure in the lower abdomen? No (0) Usually experience heaviness or dullness in the pelvic area? No (0) Usually have a bulge or something falling out that you can see or feel in your vaginal area? No (0) Ever have to push on the vagina or around the rectum to have or complete a bowel movement? No (0) Usually experience a feeling of incomplete bladder emptying? Yes, moderately bothersome (3) Ever have to push up on a bulge in the vaginal area with your fingers to start or complete urination? No (0) Feel you need to strain too hard to have a bowel movement? Yes, somewhat bothersome (2) Feel you have not completely emptied your bowels at the end of a bowel movement? Yes, quite a bit bothersome (4) Usually lose stool beyond your control if your stool is well formed? No (0) Usually lose stool beyond your control if your stool is loose? Yes, not at all bothersome (1) Usually lose gas from the rectum beyond your control? Yes, quite a bit bothersome (4) Usually have pain when you pass your stool? No (0) Experience a strong sense of urgency and have to kauffman to the bathroom to have a bowel movement? Yes, moderately bothersome (3) Does part of your bowel ever pass through the rectum and bulge outside during or after a bowel movement? No (0) Usually experience frequent urination? Yes, quite a bit bothersome (4) Usually experience urine leakage associated with a feeling of urgency, that is, a strong sensation of needing to go to the bathroom? Yes, moderately bothersome (3) Usually experience urine leakage related to coughing, sneezing or laughing? No (0) Usually experience small amounts of urine leakage (that is, drops)? No (0) Usually experience difficulty emptying your bladder? No (0) Usually experience pain or discomfort in the lower abdomen or genital region? No (0) PFIQ-7 How do symptoms or conditions relating to the following usually affect your: Bladder or urine Bowel or rectum Vagina or pelvis 1. Ability to do roving marker (cooking, housecleaning, laundry) Not at all somewhat Not at all 2. Ability to do physical activities such as walking, swimming or other exercise somewhat somewhat Not at all 3. Entertainment activities such as going to a movie or concert? somewhat somewhat Not at all 4. Ability to travel by car or bus for a distance greater than 30 minutes away from home? moderately somewhat Not at all 5. Participating in social activities outside your home? somewhat somewhat Not at all 6. Emotional health (nervousness, depression etc). Not at all Not at all Not at all 7. Feeling frustrated? somewhat somewhat Not at all Overall, how satisfied were you with your postoperative pain medication? Very satisfied With regard to your expectations before surgery, did you have the amount of pain you expected, more pain, or less pain? More pain than I expected Was the preoperative teaching you had about pain expectations helpful? Not sure Were the discharge instructions you received about pain medications helpful? Yes Application Penetration Tester offered:Patient declines OBJECTIVE: There were no vitals taken for this visit. General: Well appearing, alert, in no acute distress, well-hydrated, well nourished. Abdomen: Abdomen soft, non-tender Pelvic: Ext. Genitalia, No lesions or other abnormalities, Perineal incision healing well Vagina: WNL, Good vaginal support, and Surgical incisions are well healed Cervix: Absent Urethra: Normal, Supine cough stress test negative Bimanual: No tenderness, No masses Rectovaginal: Deferred ASSESMENT: Kemal Cantu is a 76 year old female who is post-op; stable and doing well post-operative course uncomplicated Urinary Urgency and Urinary Frequency We discussed first line management of OAB including lifestyle modifications - e.g. Timed voiding, Bladder training, Pelvic floor muscle training, Quick flicks, avoidance of bladder irritants, reducing stress/anxiety, avoidance/management of constipation, limiting fluid intake 3 hours prior to bedtime, and ensuring good quality sleep (treat sleep disorders, practice good sleep hygiene) to help prevent nocturia. We next discussed OAB medications as second line treatment including anticholingerics and beta 3 agonist. We discussed anticholinergic side effects including dry eye, dry mouth, constipation, urinary retention and sometimes confusion in elderly patients. We also discussed the side effects of Mirabegron (Beta 3 agonist), including elevated blood pressure. We finally discussed third line therapies (Botox, InterStim (SNS), Percutaneous Tibial Nerve Stimulation (PTNS), including the RBA of each. Pt will follow-up if she becomes more bothered PLAN: May resume normal activities. May resume intercourse. 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 I spent a total of 10 minutes on the date of the service which included preparing to see the patient, [id number] patient care, completing clinical documentation, obtaining and/or reviewing separately obtained history, performing a medically appropriate examination, and counseling and educating the patient/family/caregiver. Randi Jimenez MD documented in this encounter [facility] 09-08-2022 Miscellaneous Notes Kemal Cantu Ruvalcaba: [id number] - Rx #: [id number] help? Call us at Outcome Additional Information Required Message from [employer]: Drug is not covered by plan Drug Contour Next Monitor w/Device kit Form Electronic PA Form (2017 NCPD) Original Claim Info 70 ? CoverMyMeds Recommendation ? This medication may be excluded from the patient's benefit. For more information, please reach out to [employer] directly at [phone]. PHARMACY NEEDS TO RUN RX UNDER MEDICAL not pharmacy benefits. Prior Authorization Documentation Prior authorization requested for the following medication: Medication: Glucometer, strips, lancets, system. Insurance company would not tell patient or pharmacy which one is covered. Pharmacy tried to PA five different systems. Insurance told patient this can be done on Covermymeds web site. Provider: [employer] Insurance Company Name: [employer] Company Phone number: Patient ID number: [id number] Pharmacy Name: [facility] Telephone number: [phone] documented in this encounter [facility] 09-07-2022 Miscellaneous Notes Ordered. Екатерина Escalante APRN.CNP Call placed to patient and she was not certain. Pended lancets as well. Ara Tapia RN Orders for generic machine and strips placed. Does patient need any lancets? Thank you Екатерина Escalante APRN.CNP Patient calls to request an order for a glucometer/strips. Patient reports that she started to check blood sugar readings twice daily as provider recommended and glucometer quit working. Pended per request. Ara Tapia RN documented in this encounter [facility] 08-29-2022 Miscellaneous Notes Patient notified, appointment scheduled. Patient needs to stop glyburide and keep record of blood sugar especially when she is symptomatic of possible low blood sugar. Follow up in 2 weeks or earlier if needed. Thank you Екатерина Escalante APRN.CNP Patient states that she hasn't checked levels when she has symptoms of low blood sugars. States she just eats something when symptoms starts. Patient calling stating she on 1/2 dose glyburide now that she received Ozempic. She is still having low blood sugars. documented in this encounter [facility] 08-22-[address] - 08/22/2022 10:46 AM EST Do shopping immediately after meal, keep junk out of house Make a shopping list and shop only from a list If able no eating after dinner Include protein in meals Work on regular schedule of sleeping/waking Continue working to improve mindful eating documented in this encounter [facility] 08-22-2022 History of Presen t illness Narrative Nutritional Therapy Re-Assessment Nutrition Diagnosis: Overweight/obesity, related to, excess energy intake and physical inactivity, as evidenced by BMI above normative standard for age and gender RECOMMENDED MALNUTRITION DIAGNOSIS: NO MALNUTRITION IDENTIFIED NUTRITION CARE PLAN: Nutrition Intervention 08/22/2022: modify tyep and amount of food or beverage Do shopping immediately after meal, keep junk out of house Make a shopping list and shop only from a list If able no eating after dinner Include protein in meals Work on regular schedule of sleeping/waking Continue working to improve mindful eating Nutrition Monitoring & Evaluation: 1-2 lb weight loss per week, Need for Follow up: 4-6 weeks PROGRESS: Interval History: for follow up MNT as relates to class 3 obesity, DM, CKD, GERD, CAD. States has had difficult time period with sister visit, construction house, b day celebration, holidays, and sinus infection. Admits to limited application of recommendations. Weight increase of almonds 10 lbs since last visit . Is ready to get back on track. Nutrition Intervention 06/27/22 Ensure half plate veggies Snack at night OK if truly hungry Working on increasing exercise, walking or bike All meals and snacks at the dinner table; minimize distractions, no TV while eating. Make meals last at least 20 min, chew each bite of food 20 x per bite.Portion out all foods, never eat out of container. Become more mindful of meal: Enjoy flavors, textures etc. Use hunger/fullness scale. Actions to implement interventions: Leaning towards plant based eating Active with needs of house renovation Diet History: Breakfast - breakfast bar; coffee with half n half Snack - yogurt, sweets Lunch - tabouli; hummus; Snack - tabouli, sweets Dinner - hummus, tabouli, stuffed crepes, taco salad dip; Snack - sweets Beverages - coffee, water, diet soda Alcohol - rare Vitamins/Supplements - see medlist Activity: Activities of Daily Living: varies Additional Activity: Lightly active (Light exercise: planned physical activity 1-3 days/week) Up stairs and moving furniture Anthropometrics: Height: Last 1 Encounter Ht Readings: Date: Ht: 08/22/2022 170.2 cm (5' 7) Current weight: Last 1 Encounter Wt Readings: Date: Wt: 08/22/2022 125.9 kg (277 lb 8 oz) Body mass index is 43.46 kg/m . Resting Metabolic Rate: 1786 Malnutrition Screening Significant unintentional weight loss? No Eating less than 75% of usual intake for more than 2 weeks? No Potential Signs of Inflammation: no identifiable sources Nutritional status: Education Materials Provided: None this visit READINESS TO LEARN Cognitive ability: Alert and oriented Motivation to learn: Interested Family support: Unable to assess - Family not present Instruction provided to: Patient Patient learns best by: Individual Instruction Factors affecting learning: None Physical limitations affecting learning: None Likelihood of Adherence: Moderate Referred/Supervised by: Sammi/Sammi CLEMENTS Billing Type: Re-assess/15 min 3 units SIGNATURE: Radha High RD PATIENT NAME: Kemal Cantu DATE: August 22, 2022 TIME: 10:21 AM documented in this encounter [facility] 08-22-2022 Miscellaneous Notes Detailed message left on pt's identified VM of update below. Pt instructed to call PCP office if she has any further questions or concerns. Rosa Maria Jones RN Order sent. Please let patient know. Thank you Екатерина Escalante APRN.CNP Pt calling and states her current pharmacy is unable to supply her Ozempic. She states she has contacted [facility] in [place] and they currently have it. Pt asking for Екатерина Escalante CNP to send Ozempic script to [facility]. Thank you. documented in this encounter [facility] 08-18-2022 Miscellaneous Notes PDMP website checked and validated. All prescriptions have been APPROPRIATELY filled. No suspicious activity was identified. 08/18/2022 by Hollie Blevins MD Patient has been identified by name and date of : Yes Patient phones for refill(s): Requested Prescriptions Pending Prescriptions Disp Refills pregabalin (LYRICA) 75 mg capsule 60 capsule 2 Sig: Take 1 capsule by mouth twice daily for 90 days. Take one capsule with dinner and one capsule at bedtime. Date of last office visit in primary care: MAGDY 05/19/2022 No appointment scheduled Last 2 Encounter Wt Readings: Date: Wt: 08/17/2022 124.3 kg (274 lb) 06/27/2022 121.6 kg (268 lb) Please advise. Thank you. BRENDA Oneil Last Office Visit: 05/19/2022 Future Office Visit: None Requested Prescriptions Pending Prescriptions Disp Refills pregabalin (LYRICA) 75 mg capsule 60 capsule 2 Sig: Take 1 capsule by mouth twice daily for 90 days. Take one capsule with dinner and one capsule at bedtime. Date of Last Labs: 08/17/2022 documented in this encounter [facility] 08-17-2022 History of Presen t illness Narrative CC: Patient presents with: Recheck: 6 month follow up HPI Kemal Cantu is a 76 year old female who presents today for routine 6 month follow up Has had sinus isues for the past 4 weeks but unsure if it is related to having construction at her house. Sputum was 2 weeks ago was thick and green but started with cough and nasal congestion again a few days ago. Currently is coughing up some clear sputum and also started with a right ear ache yesterday. Took a negative COVID test today Denies any current fever, chills, wheezing, shortness of breath, chest pain, or swelling. DIABETES MELLITUS: Ms. Cantu denies excessive thirst or increased frequency of urination, chest pain or dyspnea , numbness, tingling or pain in extremities, new or unusual visual symptoms, low sugar/hypoglycemic reactions, weight loss/gain, lightheadedness/dizziness, and bowel changes/loose stools. Follows a diabetic diet most of the time. She is compliant with medication(s) and is tolerating med(s) without any side effects but has been out of ozempic as it is on back order. She reports checking her glucose on a once a day schedule with sugars in the fasting 140s and postprandial 170 range. Was running in 90s fasting and 140-150 post prandial when she had the Ozempic. Has also had multiple steroid joint injections recently by orthopedic. Patient's last HgA1C was Hemoglobin A1C (%) Date Value 02/03/2022 5.7 08/18/2021 6.6 05/18/2021 6.1 ) HTN: Ms. Cantu indicates that she is feeling well and denies any symptoms referable to elevated blood pressure. Specifically denies headache, chest pain, palpitations, dyspnea, and peripheral edema. Patient denies any side effects of her medication(s) and is compliant with their regimen. She does not check BP's generally. Kemal denies regular aerobic exercise. She watches her diet for sodium, low fat and low cholesterol most of the time. Last 3 Encounter BP Readings: Date: BP: 08/17/2022 142/84 05/19/2022 138/82 05/06/2022 101/49 REVIEW OF SYSTEMS General: no fevers, no chills, no night sweats, no recurrent infections, no change in appetite, no change in energy, and no significant changes in weight Respiratory: no wheezing, no shortness of breath, no hemoptysis Cardiovascular: no chest pain, no chest pressure, no palpitations, and no swelling GI: No nausea, vomiting, or diarrhea Endocrine: no fatigue, no cold intolerance, no heat intolerance, no polyuria, no polyphagia, and no polydipsia Neurologic: No headache, weakness, numbness, tingling, dizziness, memory loss, syncope. PAST MEDICAL HISTORY Diagnosis Date Diabetes mellitus (HCC) Fibromyalgia Fuchs' corneal dystrophy Gastroesophageal reflux disease Glaucoma HTN (hypertension) Hypothyroidism Irritable bowel syndrome Migraines MAURICE (obstructive sleep apnea) does not use c-pap Osteoarthritis Plantar fasciitis PONV (postoperative nausea and vomiting) Pseudophakia PTSD (post-traumatic stress disorder) Restless leg syndrome Sleep apnea in adult TMJ (dislocation of temporomandibular joint) PAST SURGICAL HISTORY Procedure Laterality Date CATARACT EXTRACTION W/ INTRAOCULAR LENS IMPLANT HX Bilateral 2016 COLONOSCOPY FLX DX W/COLLJ SPEC WHEN PFRMD 06/21/2021 CORNEAL TISSUE DSAEK/DMEK Left 09/30/2019 Dr. Clark ENDOTHELIAL KERATOPLASTY(DMEK) Right 04/17/2019 ENDOTHELIAL KERATOPLASTY/DSAEK Right 03/18/2019 ESOPHAGOGASTRODUODENOSCOPY TRANSORAL DIAGNOSTIC 06/21/2021 PAST SURGICAL HISTORY OF 1972 parathyroid adenoma surgery PAST SURGICAL HISTORY OF 1988 hysterectomy with prolapsed bladder repair PAST SURGICAL HISTORY OF 1992 abdominoplasty PAST SURGICAL HISTORY OF 1993 breast reduction PAST SURGICAL HISTORY OF 1979 deviated septum repair PAST SURGICAL HISTORY OF 1965 D&C after miscarriage PAST SURGICAL HISTORY OF 2013 Total right knee repalcement PAST SURGICAL HISTORY OF 11/2013 total left knee replacement PAST SURGICAL HISTORY OF 2015 rectocele repair with vaginal mesh PAST SURGICAL HISTORY OF 11/01/2015 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 PAST SURGICAL HISTORY OF 2018 DMEK Corneal Transplant-Right eye PAST SURGICAL HISTORY OF Left 10/10/2019 INJECTION, ANTERIOR CHAMBER OF EYE; AIR PAST SURGICAL HISTORY OF Right 1996 cyst removal off right 4 toe PAST SURGICAL HISTORY OF hammer toe surgery PRQ CARDIAC STENT W/ANGIO 1 VSL 03/02/2021 90% blockage RCA SKIN LESION BIOPSY 10/2015 x2 face YAG CAPSULOTOMY OD (RIGHT EYE) 2018 YAG CAPSULOTOMY OS (LEFT EYE) 2017 ALLERGIES Bacitracin (Bulk), Codeine, Dust Mites, Gentamicin, Mold, Sulfa (Sulfonamide Antibiotics), Sulfabenzamide, and Tree Pollen-Red Maple MEDICATIONS montelukast (SINGULAIR) 10 mg tablet Take 1 tablet by mouth daily at bedtime. semaglutide (OZEMPIC) 1 mg/dose (2 mg/1.5 mL) pen Inject 1 mg subcutaneously one time a week. buPROPion SR (ZYBAN SR; WELLBUTRIN SR) 150 mg 12 hr tablet take 1 tablet by mouth once daily fluticasone (FLONASE) 50 mcg/actuation nasal spray instill 2 sprays into each nostril once daily valsartan (DIOVAN) 320 mg tablet Take 1 tablet by mouth once daily. omeprazole (PRILOSEC) 40 mg capsule Take 1 capsule by mouth twice daily. pregabalin (LYRICA) 75 mg capsule Take 1 capsule by mouth twice daily for 90 days. Take one capsule with dinner and one capsule at bedtime. oxyCODONE IR (ROXICODONE) 5 mg immediate release tablet Take 1 tablet by mouth every 8 hours as needed for pain. (Patient not taking: Reported on 05/19/2022) ibuprofen (MOTRIN) 600 mg tablet Take 1 tablet by mouth every 6 hours as needed for pain. (Patient not taking: Reported on 05/19/2022) acetaminophen (TYLENOL EXTRA STRENGTH) 500 mg tablet Take 2 tablets by mouth every 6 hours as needed for pain. polyethylene glycol 3350 (MIRALAX) 17 gram/dose powder Take 17 g by mouth once daily. Dissolve dose in 4 - 8 ounces of liquid and take as directed. levothyroxine (SYNTHROID) 75 mcg tablet take 1 tablet by mouth once daily ON AN EMPTY STOMACH glyBURIDE (DIABETA) 2.5 mg tablet Take 0.5 tablets by mouth daily with breakfast. metFORMIN (GLUCOPHAGE) 1,000 mg tablet Take 1 tablet by mouth daily with breakfast. ketoconazole (NIZORAL) 2 % cream Apply to affected area once daily. Used for fungal skin fold rashes LUMIGAN 0.01 % drop ophthalmic drops instill 1 drop into both eyes once daily at bedtime pramipexole (MIRAPEX) 0.125 mg tablet Take 2 tablets by mouth four times daily. atorvastatin (LIPITOR) 10 mg tablet Take 1 tablet by mouth once daily. ubidecarenone (COENZYME Q10) 100 mg tab Take 200 mg by mouth once daily. simethicone (GAS-X ORAL) Take 125 mg by mouth twice daily. multivit,thx,calcium,iron,mins (MULTIVITAMIN AND MINERAL ORAL) Take by mouth. vitamin K2 100 mcg cap Take 100 mcg by mouth. Zinc 50 mg tab Take 50 mg by mouth. amLODIPine (NORVASC) 2.5 mg tablet Take 2.5 mg by mouth once daily. conjugated estrogens (PREMARIN) vaginal cream Use 0.5 g vaginally two times a week. metoprolol tartrate, short acting, (LOPRESSOR) 50 mg tablet Take 50 mg by mouth twice daily. Bifidobacterium infantis (ALIGN ORAL) Take 1 tablet by mouth once daily. LOW-DOSE ASPIRIN ORAL Take 81 mg by mouth once daily. blood sugar diagnostic ([employer] ULTRA TEST) test strip Test blood sugar once a day DX: E11.9 diclofenac sodium (VOLTAREN) 1 % topical gel Apply 2 g to affected area four times daily. amoxicillin (POLYMOX, AMOXIL) 500 mg capsule Take 500 mg by mouth. Take 4 capsules 1 hour before dental procedures. ascorbic acid, vitamin C, (VITAMIN C) 250 mg tablet Take 250 mg by mouth once daily. ferrous sulfate EC 324 mg (65 mg iron) TbEC Take 324 mg by mouth once daily. cholecalciferol (VITAMIN D3) 50 mcg (2,000 unit) tablet Take 2,000 Units by mouth once daily. FAMILY HISTORY Problem Relation Age of Onset Heart Mother Diabetes Mother Heart Father Stroke Father Cataract Paternal Grandfather Glaucoma Other Social History Tobacco Use Smoking status: Never Smokeless tobacco: Never Tobacco comments: Second hand smoke (mother) Vaping Use Vaping Use: Never used Substance Use Topics Alcohol use: Yes Alcohol/week: 1.0 standard drink Types: 1 Glasses of wine per week Comment: 3-4 glasses of wine per year Drug use: Never PHYSICAL EXAM BP 142/84 Pulse 60 Resp 16 Wt 124.3 kg (274 lb) BMI 42.91 kg/m General Appearance: well appearing, in no acute distress, alert Skin: Skin color, texture, turgor normal for age; Eyes: conjunctiva pink and moist, no icterus, sclera white, non-injected Ears: external ears normal to inspection and palpation, canals clear, Left tympanic membrane normal. , Right tympanic membrane normal Nose/sinus: Nares normal. Septum midline. Mucosa normal. No drainage. Sinus tenderness noted to frontal sinuses Neck: Thyroid normal size and symmetric without palpable nodules, No adenopathy Oropharynx: palate normal, tongue midline and normal, soft palate, uvula, and tonsils normal Lymph nodes: No cervical lymphadenopathy and No supraclavicular lymphadenopathy Lungs: Lungs clear to auscultation. No wheezing, rhonchi, rales. Heart: RRR without murmur, gallop, or rubs. No ectopy Abdomen: Abdomen soft, non-tender. Bowel sounds normal. No masses, organomegaly Health maintenance reviewed with patient: BP CONTROLLED (<130/80) Never done HBA1C due on 08/05/2022 ADVANCE DIRECTIVE DISCUSSION due on 08/14/2022 PNEUMOCOCCAL: 65+(2 - PPSV23 if available, else PCV20) due on 09/03/2022 DTAP,TDAP,TD(2 - Td or Tdap) due on 11/01/2022 SHINGRIX VACCINE(2 of 2) due on 02/11/2023 COVID-19 VACCINE(4 - Booster for Moderna series) due on 02/11/2023 URINE ALBUMIN:CREATININE RATIO due on 02/03/2023 LDL CHOLESTEROL due on 02/03/2023 DIABETIC FOOT EXAM due on 02/11/2023 ANNUAL PCP TEAM CHRONIC DISEASE VISIT due on 02/11/2023 DILATED RETINAL EXAM due on 03/04/2023 SERUM CREATININE due on 04/13/2023 BONE DENSITY Completed INFLUENZA Completed HEPATITIS C SCREENING Discontinued DATA REVIEWED: No new labs ASSESSMENT/PLAN: 1. Essential hypertension, benign - ICD9: 401.1, ICD10: I10 (primary diagnosis) - good control - Continue current medication(s) - Encouraged dietary sodium restriction/DASH diet - Recommended regular aerobic exercise. - Recommend home blood pressure monitoring, to bring results in on next visit - Goal of BP <130/80 - CBC + DIFF - BASIC METABOLIC PNL 2. Type 2 diabetes mellitus with other specified complication, without long-term current use of insulin (HCC) - ICD9: 250.80, ICD10: E11.69 - control to be dertimend with A1c. Elevated glucose may be a combination of steroids and no ozempic - patient to call a few other pharmacies to see if they have ozempic in stock as this was helping with weight loss and glucose control. If not available will start her on mounjaro. - Continue current medications - increasing glyburide to full tablet until injectable can be restarted. - Blood glucose monitoring on a once a day schedule - BP goal of <130/80 - LDL goal of <100 - CBC + DIFF - HGB A1C - BASIC METABOLIC PNL 3. Acute non-recurrent frontal sinusitis - ICD9: 461.1, ICD10: J01.10 - Will begin treatment with as per antibiotic as written, see orders - patient with recurrent history of vaginal candidiasis with antibiotic treatment so diflucan prescribed as well - discussed need for plenty of fluids and rest - continue with Singulair and flonase - follow up in 3-5 days if no improvement 4. Hypothyroidism, unspecified type - ICD9: 244.9, ICD10: E03.9 - Instructed patient on importance of taking on an empty stomach either first thing in the morning or at bedtime. - asymptomatic - TSH BLD Prescription instructions reviewed with patient as applicable. Potential red flag symptoms discussed with the patient. Reviewed appropriate action plan to take if red flag symptoms occur. Patient agreeable to treatment plan. Екатерина Escalante APRN.BILL documented in this encounter [facility] 07-22-2022 Miscellaneous Notes Patient has been identified by name and date of : Yes Patient phones for refill(s): Requested Prescriptions Pending Prescriptions Disp Refills montelukast (SINGULAIR) 10 mg tablet 90 tablet 3 Sig: Take 1 tablet by mouth daily at bedtime. semaglutide (OZEMPIC) 1 mg/dose (2 mg/1.5 mL) pen 6 mL 11 Sig: Inject 1 mg subcutaneously one time a week. Date of last office visit in primary care: 02/11/2022, has appt 08/17/2022 Last 2 Encounter Wt Readings: Date: Wt: 06/27/2022 121.6 kg (268 lb) 05/19/2022 123.4 kg (272 lb) Previous labs/tests for medication: Diabetes: Hemoglobin A1C (%) Date Value 02/03/2022 5.7 08/18/2021 6.6 05/18/2021 6.1 Please advise. Thank you. Patti Lindsey LPN documented in this encounter [facility] 07-19-2022 Miscellaneous Notes Patient last visit 02/11/22 Follow up appointment scheduled 08/17/22 Gt Boland Ma documented in this encounter [facility] 06-27-[address] - 06/27/2022 10:32 AM EST Ensure half plate veggies Snack at night OK if truly hungry Working on increasing exercise, walking or bike All meals and snacks at the dinner table; minimize distractions, no TV while eating. Make meals last at least 20 min, chew each bite of food 20 x per bite.Portion out all foods, never eat out of container. Become more mindful of meal: Enjoy flavors, textures etc. Use hunger/fullness scale. documented in this encounter [facility] 06-27-2022 History of Presen t illness Narrative Nutritional Therapy Re-Assessment Nutrition Diagnosis: Overweight/obesity, related to, excess energy intake and physical inactivity, as evidenced by BMI above normative standard for age and gender RECOMMENDED MALNUTRITION DIAGNOSIS: NO MALNUTRITION IDENTIFIED NUTRITION CARE PLAN: Nutrition Intervention 06/27/2022: modify type and amount of food or beverage Ensure half plate veggies Snack at night OK if truly hungry Working on increasing exercise, walking or bike All meals and snacks at the dinner table; minimize distractions, no TV while eating. Make meals last at least 20 min, chew each bite of food 20 x per bite.Portion out all foods, never eat out of container. Become more mindful of meal: Enjoy flavors, textures etc. Use hunger/fullness scale. Nutrition Monitoring & Evaluation: half to one pound weight loss per week Need for Follow up: 4-6 weeks PROGRESS: Interval History: following as relates to class 3 obesity, DM, CKD, GERD, CAD. Notes stress but less. Still renovations in house. Has been cooking regular meals with company. Working on increasing exercise after surgery. Note 9 lbs lost since last visit. Blood sugars good control when checking. Nutrition Intervention 05/16/22 Look for lower calorie nutrition bar If able no evening snack, try broth or tea All beverages calorie free and sugar free Wait 10 min before snacking to see if still want it. (Go outside, get fresh air) Start walking for exercise Actions to implement interventions: Changes to diet soda Started on exercise bike Diet History: 80's range Breakfast - nutrition bar or half; coffee with half n half Snack -yogurt Lunch - left overs; Snack - if early lunch yes: half nutrition bar Dinner - cooking more: stuffed crepe with veggies, nuts, bread crumbs; salmon, cauliflower crust pizza (home made); chicken teriyaki over rice; veggie bisquick pie; hamburger corn bread; water or diet soda if out Snack - occ cereal, yogurt, breakfast bar Beverages - coffee, water, diet soda Alcohol - no Vitamins/Supplements - see medlist Activity: Activities of Daily 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 Resting Metabolic Rate: 1743 Malnutrition Screening Significant unintentional weight loss? No Eating less than 75% of usual intake for more than 2 weeks? No Potential Signs of Inflammation: no identifiable sources Nutritional status: Education Materials Provided: None this visit READINESS TO LEARN Cognitive ability: Alert and oriented Motivation to learn: Interested Family support: Unable to assess - Family not present Instruction provided to: Patient Patient learns best by: Individual Instruction Factors affecting learning: None Physical limitations affecting learning: None Likelihood of Adherence: Moderate Referred/Supervised by: Sammi/Sammi CLEMENTS Billing Type: Re-assess/15 min 2 units SIGNATURE: Radha High RD PATIENT NAME: Kemal Cantu DATE: June 27, 2022 TIME: 10:14 AM documented in this encounter [facility] 06-08-2022 Miscellaneous Notes Patient has been identified by name and date of : Yes Patient phones for refill(s): Requested Prescriptions Pending Prescriptions Disp Refills fluticasone (FLONASE) 50 mcg/actuation nasal spray [Pharmacy Med Name: FLUTICASONE PROP 50 MCG SPRAY] 16 g 2 Sig: instill 2 sprays into each nostril once daily Date of last office visit in primary care: 02/11/22 Last 2 Encounter Wt Readings: Date: Wt: 05/19/2022 123.4 kg (272 lb) 05/16/2022 125.7 kg (277 lb 2.4 oz) Previous labs/tests for medication: Not applicable Please advise. Thank you. Beatriz Ballard LPN documented in this encounter [facility] 06-06-2022 History of Presen t illness Narrative Female Pelvic Medicine & Reconstructive Surgery Post-Op Visit Kemal Cantu is a 76 year old female who presents for a 4 Week post-op check s/p Sacrospinous ligament suspension of the vaginal vault/extraperitoneal colpopexy, Anterior colporrhaphy, Enterocele repair, Perineorrhaphy, and Cystoscopy. Surgical Findings: -posterior vaginal wall with scar as evidenced by prior surgery -Normal 360 degree cystoscopy. Bladder and urethra without injury, sutures, or masses. Strong bilateral ureteral jets seen. -Stage III cystocele, vault prolapse and stage 1 rectocele -vaginal sweep negative -rectal exam without injury or sutures Surgical Pathology: NA History since surgery: Has had yellow discharge since surgery that has an odor, states it has been improving. Denies vaginal itching, vaginal bleeding. States she is overall happy with surgery and is doing well. States before surgery she would have 3-4 days of constipation followed by a day of diarrhea. States she now has mushy stools daily and that she is very happy with improvement in bowel movements. States she still has urinary frequency, but is not new since surgery. Denies fever, chills, nausea, vomiting. Post-op complications: no Bleeding: no Pain: yes If you had pain related to your prolapse before surgery, has your pain resolved? Not Applicable Abnormal vaginal discharge: yes, yellow in color [id number] Do you: Usually experience pressure in the lower abdomen? Yes, somewhat bothersome (2) Usually experience heaviness or dullness in the pelvic area? Yes, somewhat bothersome (2) Usually have a bulge or something falling out that you can see or feel in your vaginal area? No (0) Ever have to push on the vagina or around the rectum to have or complete a bowel movement? No (0) Usually experience a feeling of incomplete bladder emptying? No (0) Ever have to push up on a bulge in the vaginal area with your fingers to start or complete urination? No (0) Feel you need to strain too hard to have a bowel movement? Yes, somewhat bothersome (2) Feel you have not completely emptied your bowels at the end of a bowel movement? Yes, moderately bothersome (3) Usually lose stool beyond your control if your stool is well formed? Yes, moderately bothersome (3) Usually lose stool beyond your control if your stool is loose? Yes, moderately bothersome (3) Usually lose gas from the rectum beyond your control? Yes, moderately bothersome (3) Usually have pain when you pass your stool? No (0) Experience a strong sense of urgency and have to kauffman to the bathroom to have a bowel movement? Yes, somewhat bothersome (2) Does part of your bowel ever pass through the rectum and bulge outside during or after a bowel movement? No (0) Usually experience frequent urination? Yes, quite a bit bothersome (4) Usually experience urine leakage associated with a feeling of urgency, that is, a strong sensation of needing to go to the bathroom? Yes, somewhat bothersome (2) Usually experience urine leakage related to coughing, sneezing or laughing? No (0) Usually experience small amounts of urine leakage (that is, drops)? No (0) Usually experience difficulty emptying your bladder? Yes, not at all bothersome (1) Usually experience pain or discomfort in the lower abdomen or genital region? Yes, not at all bothersome (1) Overall, how satisfied were you with your postoperative pain medication? Very satisfied With regard to your expectations before surgery, did you have the amount of pain you expected, more pain, or less pain? Much less pain than I expected Was the preoperative teaching you had about pain expectations helpful? Yes Were the discharge instructions you received about pain medications helpful? Yes Application Penetration Tester offered:Patient declines OBJECTIVE: There were no vitals taken for this visit. General: Well appearing, alert, in no acute distress, well-hydrated, well nourished. Abdomen: Abdomen soft, non-tender Pelvic: Ext. Genitalia, No lesions or other abnormalities Vagina: Good vaginal support, Epithelium atrophic , Surgical incisions are well healed, and Suture material present Cervix: Absent Urethra: Normal Bimanual: No tenderness, No masses Rectovaginal: Deferred ASSESMENT: Kemal Cantu is a 76 year old female who is post-op; stable and doing well post-operative course complicated by vaginal discharge PLAN: - May resume normal activities. May resume intercourse. - Operative findings and pathology report were reviewed today. - BV/Trich/Yeast sent for vaginal discharge - Restart premarin - Follow up in [address] Jimenez - Reviewed infection warning signs - Patient expressed understanding. Carol Mays APRN.CNP documented in this encounter [facility] 06-03-2022 Miscellaneous Notes Images from the original note were not included. Patient states it's like she's taking nothing. Advised patient of covering provider's message: Pt. verbalizes understanding & agrees with plan. Will continue to take & advise office if not working. Samira Rueda MA Pt states she switched from horizant to lyrica about 1 wk ago. Pt states lyrica is doing absolutely nothing for me. Pt states she wants to go back to taking horizant, she does not need a refill at this time. Katie Arechiga LPN documented in this encounter [facility] 06-02-2022 Miscellaneous Notes Pt is asking for a refill for omeprazole. Pt also asking if provider will consider refilling her valsartan? Pt sees [facility] & will continue to do so but states it is hard to get through to their office so would like pcp to refill for her. MAGDY: 02/11/22 NOV: 08/17/22 Last Refill: Omeprazole: 12/01/21 #180 1 refill Katie Arechiga LPN documented in this encounter [facility] 05-19-2022 History of Presen t illness Narrative Images from the original note were not included. [facility] Follow-up Visit Follow-up note May 19, 2022 HPI: Ms. Cantu presents today for a follow-up visit. Per her previous visit with Dr. Blevins on 11/29/21: ASSESSMENT/PLAN: 1. Restless legs - ICD9: 333.94, ICD10: G25.81 (primary diagnosis) 2. Iron deficiency anemia, unspecified iron deficiency anemia type - ICD9: 280.9, ICD10: D50.9 Pt with chronic RLS of uncertain etiology but known Fe deficiency with low Ferritin as well as DM with possible some degree of neuropathy although not noted on exam. Patient is please with current meds. She understands risks of Augmentation with dopamine agonists. She understands that Horizant needs monitored closely due to mild decrease in GFR. We discussed other options such as Neupro and Lyrica and will consider in the future if needed. Plan as follows: -Repeat Iron and Ferritin levels. If still low, will consult [facility] in [facility] for IV infusion therapy as possible treatment option for RLS. -Continue Mirapex 0.125mg 2 tabs at dinner, 9PM, bedtime with additional tabs as needed (rare). -Continue Horizant 900mg Q Dinner. SE and ADRs of Rx'd meds d/w pt. 3. MAURICE (obstructive sleep apnea) - ICD9: 327.23, ICD10: G47.33 Patient not interested in further workup or treatment. This includes declining HSAT to determine what degree of MAURICE, if any, she might have when upright. Discussed with patient: the physiology of OSAS, medical conditions associated with OSAS (DM, HTN, CAD, Depression, Stroke, Headache...) and treatment options (UPPP, Dental appliances, CPAP...). Advised patient to avoid activities that could harm self or others when tired/sleepy, including driving and/or operating heavy machinery. Encouraged weight loss, and continued compliance with other medications. Follow up 6 months or sooner prn. She states RLS has been bad. Some days can be bad but other nights can be horrendous. Does not have a correlation with cause. Though states maybe a change in exercise level may lead to sx. Uses a reclining stepper for 30min daily, however, had surgery in April and the change in exercise level has set it off. She found that if she lies on her stomach with her feet hanging off the end and she wiggles her feet it will calm it down. The only sure way to resolve symptoms would be to walk around. Can wake her up at 4am. Starting earlier in the day; 4-4:30 rather than 5:30-6. Taking two tablets Mirapex at dinner, 2 at 9pm, and two at bedtime. Taking an additional two on occasion if symptoms persist. Has also been taking Horizant 900mg qdinner. Has been spotting since May 06 since her surgery. Uterine prolapse. Has always been a side sleeper. Difficulty keeping mask on because of side sleeping. Started sleeping flat on her back but was waking with back pain. Started sleeping propping herself up but then figured she would not need the CPAP if she was sleeping sitting up. Quit using it. Her PAP was recalled so she threw it away. Last sleep study was 3-5 years ago in [place]. States that for the past six months she has been sleeping on her couch due to a home renovation. States it would be a month before her house is finished. Sleeps about four hours per night; feels well rested. Denies weakness, numbness, tingling. PAST MEDICAL HISTORY Diagnosis Date Diabetes mellitus (HCC) Fibromyalgia Fuchs' corneal dystrophy Gastroesophageal reflux disease Glaucoma HTN (hypertension) Hypothyroidism Irritable bowel syndrome Migraines MAURICE (obstructive sleep apnea) does not use c-pap Osteoarthritis Plantar fasciitis PONV (postoperative nausea and vomiting) Pseudophakia PTSD (post-traumatic stress disorder) Restless leg syndrome Sleep apnea in adult TMJ (dislocation of temporomandibular joint) PAST SURGICAL HISTORY Procedure Laterality Date CATARACT EXTRACTION W/ INTRAOCULAR LENS IMPLANT HX Bilateral 2016 COLONOSCOPY FLX DX W/COLLJ SPEC WHEN PFRMD 06/21/2021 CORNEAL TISSUE DSAEK/DMEK Left 09/30/2019 Dr. Clark ENDOTHELIAL KERATOPLASTY(DMEK) Right 04/17/2019 ENDOTHELIAL KERATOPLASTY/DSAEK Right 03/18/2019 ESOPHAGOGASTRODUODENOSCOPY TRANSORAL DIAGNOSTIC 06/21/2021 PAST SURGICAL HISTORY OF 1972 parathyroid adenoma surgery PAST SURGICAL HISTORY OF 1988 hysterectomy with prolapsed bladder repair PAST SURGICAL HISTORY OF 1992 abdominoplasty PAST SURGICAL HISTORY OF 1993 breast reduction PAST SURGICAL HISTORY OF 1979 deviated septum repair PAST SURGICAL HISTORY OF 1965 D&C after miscarriage PAST SURGICAL HISTORY OF 2013 Total right knee repalcement PAST SURGICAL HISTORY OF 11/2013 total left knee replacement PAST SURGICAL HISTORY OF 2015 rectocele repair with vaginal mesh PAST SURGICAL HISTORY OF 11/01/2015 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 PAST SURGICAL HISTORY OF 2019 DMEK Corneal Transplant-Right eye PAST SURGICAL HISTORY OF Left 10/10/2019 INJECTION, ANTERIOR CHAMBER OF EYE; AIR PAST SURGICAL HISTORY OF Right 1996 cyst removal off right 4 toe PAST SURGICAL HISTORY OF hammer toe surgery PRQ CARDIAC STENT W/ANGIO 1 VSL 03/02/2021 90% blockage RCA SKIN LESION BIOPSY 10/2015 x2 face YAG CAPSULOTOMY OD (RIGHT EYE) 2018 YAG CAPSULOTOMY OS (LEFT EYE) 2018 Current Outpatient Medications on File Prior to Visit Medication Sig oxyCODONE IR (ROXICODONE) 5 mg immediate release tablet Take 1 tablet by mouth every 8 hours as needed for pain. ibuprofen (MOTRIN) 600 mg tablet Take 1 tablet by mouth every 6 hours as needed for pain. acetaminophen (TYLENOL EXTRA STRENGTH) 500 mg tablet Take 2 tablets by mouth every 6 hours as needed for pain. polyethylene glycol 3350 (MIRALAX) 17 gram/dose powder Take 17 g by mouth once daily. Dissolve dose in 4 - 8 ounces of liquid and take as directed. docusate sodium (COLACE) 100 mg capsule Take 1 capsule by mouth twice daily. levothyroxine (SYNTHROID) 75 mcg tablet take 1 tablet by mouth once daily ON AN EMPTY STOMACH glyBURIDE (DIABETA) 2.5 mg tablet Take 0.5 tablets by mouth daily with breakfast. fluticasone (FLONASE) 50 mcg/actuation nasal spray Use 2 Sprays in each nostril once daily. metFORMIN (GLUCOPHAGE) 1,000 mg tablet Take 1 tablet by mouth daily with breakfast. ketoconazole (NIZORAL) 2 % cream Apply to affected area once daily. Used for fungal skin fold rashes buPROPion SR (ZYBAN SR; WELLBUTRIN SR) 150 mg 12 hr tablet Take 1 tablet by mouth once daily. LUMIGAN 0.01 % drop ophthalmic drops instill 1 drop into both eyes once daily at bedtime omeprazole (PRILOSEC) 40 mg capsule Take 1 capsule by mouth twice daily. pramipexole (MIRAPEX) 0.125 mg tablet Take 2 tablets by mouth four times daily. HORIZANT 300 mg TbER Take 3 tablets by mouth once daily. montelukast (SINGULAIR) 10 mg tablet take 1 tablet by mouth at bedtime atorvastatin (LIPITOR) 10 mg tablet Take 1 tablet by mouth once daily. ubidecarenone (COENZYME Q10) 100 mg tab Take 200 mg by mouth once daily. simethicone (GAS-X ORAL) Take 125 mg by mouth twice daily. multivit,thx,calcium,iron,mins (MULTIVITAMIN AND MINERAL ORAL) Take by mouth. vitamin K2 100 mcg cap Take 100 mcg by mouth. Zinc 50 mg tab Take 50 mg by mouth. amLODIPine (NORVASC) 2.5 mg tablet Take 2.5 mg by mouth once daily. conjugated estrogens (PREMARIN) vaginal cream Use 0.5 g vaginally two times a week. semaglutide (OZEMPIC) 1 mg/dose (2 mg/1.5 mL) pen injector Inject 1 mg subcutaneously one time a week. valsartan (DIOVAN) 320 mg tablet Take 1 tablet by mouth once daily. metoprolol tartrate, short acting, (LOPRESSOR) 50 mg tablet Take 50 mg by mouth twice daily. Bifidobacterium infantis (ALIGN ORAL) Take 1 tablet by mouth once daily. LOW-DOSE ASPIRIN ORAL Take 81 mg by mouth once daily. blood sugar diagnostic ([employer] ULTRA TEST) test strip Test blood sugar once a day DX: E11.9 diclofenac sodium (VOLTAREN) 1 % topical gel Apply 2 g to affected area four times daily. amoxicillin (POLYMOX, AMOXIL) 500 mg capsule Take 500 mg by mouth. Take 4 capsules 1 hour before dental procedures. ascorbic acid, vitamin C, (VITAMIN C) 250 mg tablet Take 250 mg by mouth once daily. ferrous sulfate EC 324 mg (65 mg iron) TbEC Take 324 mg by mouth once daily. cholecalciferol (VITAMIN D3) 50 mcg (2,000 unit) tablet Take 2,000 Units by mouth once daily. No current facility-administered medications on file prior to visit. Social History Tobacco Use Smoking status: Never Smokeless tobacco: Never Tobacco comments: Second hand smoke (mother) Vaping Use Vaping Use: Never used Substance Use Topics Alcohol use: Yes Alcohol/week: 1.0 standard drink Types: 1 Glasses of wine per week Comment: 3-4 glasses of wine per year Drug use: Never ALLERGIES Allergen Reactions Bacitracin (Bulk) Hives Codeine Unknown Dust Mites Other: See Comments Gentamicin Swelling redness of eye watery and itching Mold Unknown Sulfa (Sulfonamide * Other: See Comments redness Sulfabenzamide Hives Tree Pollen-Red Map* Shortness of Breath Review of Systems: See HPI. Physical Exam: 05/19/22 1126 BP: 138/82 Pulse: 66 Resp: 18 Temp: 36.4 C (97.5 F) TempSrc: Temporal Artery SpO2: 95% Weight: 123.4 kg (272 lb) Patient is alert and in no distress. Dress is appropriate. Mood is appropriate Breathing appears regular and unstressed Neurologic examination: Cognitively intact. No deficits. No formal MMSE performed. CN: Pupils equal and reactive to light, extraocular movements intact with no nystagmus, face is symmetric with no facial droop, hearing intact bilaterally, symmetric evaluation of the soft palate, tongue is midline with no deviation, shoulder shrug is symmetric. Motor exam shows 5/5 strength symmetric through the upper and lower extremities in all groups tested. Sensory intact to light touch in all extremities. Vibratory sensation is intact and symmetric all extremities. Deep tendon reflexes are symmetric at the biceps, brachioradialis, triceps, patella, and achilles bilaterally. Coordination: No dysmetria on finger to nose. No tremors noted. No drift seen. Gait normal in stance and pattern. Labs/studies: Component Latest Ref Rng & Units 08/18/2021 02/03/2022 04/13/2022 WBC 3.70 - 11.00 k/uL 4.73 RBC 3.90 - 5.20 m/uL 4.61 Hemoglobin 11.5 - 15.5 g/dL 13.0 Hematocrit 36.0 - 46.0 % 40.4 MCV 80.0 - 100.0 fL 87.6 MCH 26.0 - 34.0 pg 28.2 MCHC 30.5 - 36.0 g/dL 32.2 RDW-CV 11.5 - 15.0 % 14.5 Platelet Count 150 - 400 k/uL 258 MPV 9.0 - 12.7 fL 10.2 Absolute nRBC <0.01 k/uL <0.01 Glucose 74 - 99 mg/dL 118 (H) BUN 7 - 21 mg/dL 19 Creatinine 0.58 - 0.96 mg/dL 0.80 Sodium 136 - 144 mmol/L 138 Potassium 3.7 - 5.1 mmol/L 4.3 Chloride 97 - 105 mmol/L 103 CO2 22 - 30 mmol/L 23 Anion Gap 9 - 18 mmol/L 12 Calcium 8.5 - 10.2 mg/dL 10.1 eGFR >=60 mL/min/1.73m 76 Iron 41 - 186 ug/dL 59 TIBC 232 - 386 ug/dL 357 Transferrin Saturation 15 - 57 % 17 Ferritin 14.7 - 205.1 ng/mL 35.4 TSH 0.270 - 4.200 mIU/L 3.370 Assessment/Plan: G25.81 RLS (restless legs syndrome) (primary encounter diagnosis) D50.9 Iron deficiency anemia, unspecified iron deficiency anemia type Comment: Hx of RLS of uncertain etiology. 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 She is currently taking Mirapex 2 tablets 0.125mg at dinner, 9PM, and bedtime with occasional use of two additional tablets. Also taking Horizant 900mg with dinner. Today she reports worsening of symptoms. Symptoms are starting earlier in the day and can wake her up overnight typically around 4AM. Last iron and ferritin levels were obtained in August and will update at this time (note, recent surgery at time of worsening). Again discussed risk of augmentation with use of Mirapex and if sx are worsening, may consider decreasing dose. In interim will transition from Horizant to Lyrica 75mg with dinner and 75mg at bedtime. She will notify office if symptoms worsen otherwise she will provide update in two weeks. Can consider further titration of Lyrica if needed. G47.33 MAURICE (obstructive sleep apnea) Comment: Hx of MAURICE with [place]. She has been sleeping upright which improved sx, however, she reports she would be interested in further testing as she desires to return to sleeping supine/side laying. Discussed completing updated sleep study and she is agreeable to complete HSAT, however, she reports she is currently unable to complete the study due to home renovations and will notify the office when renovations are complete and she is ready to proceed with the study. Office Visit on 05/19/22 FERRITIN BLD IRON + TIBC Laurie Cee APRN.BILL I spent a total of 40 minutes on the date of the service which included preparing to see the patient, [id number] patient care, completing clinical documentation, obtaining and/or reviewing separately obtained history, performing a medically appropriate examination, counseling and educating the patient/family/caregiver, and ordering medications, tests, or procedures. PDMP website checked and validated. All prescriptions have been APPROPRIATELY filled. No suspicious activity was identified. May 19, 2022 Laurie Cee APRN.BILL documented in this encounter [facility] 05-16-[address] - 05/16/2022 11:21 AM EDT Look for lower calorie nutrition bar If able no evening snack, try broth or tea All beverages calorie free and sugar free Wait 10 min before snacking to see if still want it. (Go outside, get fresh air) Start walking for exercise documented in this encounter [facility] 05-16-2022 History of Presen t illness Narrative Nutritional Therapy Re-Assessment Nutrition Diagnosis: Overweight/obesity, related to, excess energy intake and physical inactivity, as evidenced by BMI above normative standard for age and gender RECOMMENDED MALNUTRITION DIAGNOSIS: NO MALNUTRITION IDENTIFIED NUTRITION CARE PLAN: Nutrition Intervention 05/16/2022: modify type and amount of food or beverage Look for lower calorie nutrition bar If able no evening snack, try broth or tea All beverages calorie free and sugar free Wait 10 min before snacking to see if still want it. (Go outside, get fresh air) Start walking for exercise Nutrition Monitoring & Evaluation: half to one pound weight loss per week Need for Follow up: 4-6 weeks PROGRESS: Interval History: Following as relates to class 3 obesity Body mass index is 43.41 kg/m ., DM, CKD, GERD, CAD. Has had very high stress this past month and a surgery . Has been stress eating. Renovatiions in progress in apartment; living in one room . States was on pain medication requiring food to avoid nausea. Note 6 lbs gained since last visit . Nutrition Intervention 03/28/22 Continue smaller portions and regular exercise Continue to work on more meals no TV Actions to implement interventions: Was exercising before surgery - 30 min on step Diet History: Breakfast - coffee, nutrition bar or only a half Snack - yogurt Lunch - sandwich: PBJ, egg or tuna salad on begel thin or [employer] Killer bread; if out Taco zarate Snack - yes: nutrition bar Dinner - ground beef stew over rice or chicken stir yobani Snack - yes: bar or bagel thin with cream cheese spread or pnb Beverages - water, coffee, reg soda Alcohol - no Vitamins/Supplements - see medlist Activity: Activities of Daily 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 Resting Metabolic Rate: 1784 Malnutrition Screening Significant unintentional weight loss? No Eating less than 75% of usual intake for more than 2 weeks? No Potential Signs of Inflammation: no identifiable sources Nutritional status: Education Materials Provided: None this visit READINESS TO LEARN Cognitive ability: Alert and oriented Motivation to learn: Interested Family support: Unable to assess - Family not present Instruction provided to: Patient Patient learns best by: Individual Instruction Factors affecting learning: None Physical limitations affecting learning: None Likelihood of Adherence: Moderate Referred/Supervised by: Noah CLEMENTS Billing Type: Re-assess/15 min 2 units SIGNATURE: Radha High RD PATIENT NAME: Kemal Cantu DATE: May 16, 2022 TIME: 11:01 AM documented in this encounter [facility] 05-02-2022 History of Presen t illness Narrative URODYNAMICS ID Verified by: Emelyn Mullins RN URODYNAMIC PROCEDURE NOTE B/O UA: WNL Negative TRAFFIC AGENT UROFLOWMETRY Voided vol: 253 mL Flow time: 56 sec Q max: 8 mL/sec Q av mL/sec PVR: 75 mL CYSTOMETROGRAM Subtracted:Yes Video: No EMG: Yes First desire: 92 mL Strong desire: 141 mL Max. capacity: 219 mL Maximum filling detrusor pressure 0 cm of water Instability associated with urge: No Instability associated with leakage: No Leaks urine with valsalva /coughs: No Lowest Leak point pressure: n/a cm of water at n/a mL Was patient assessed for VLPP: Yes Was UPP done: No PRESSURE-FLOW VOIDING STUDY Voided: 211 mL Max Voiding Detrusor Pressure (Peak Pressure) 14cm H2O P det Q max (Max Flow) (Pressure at peak): 1 cm H2O Maximum Flow Rate: 16 mL/sec Average Flow Rate: 5 mL/sec Vaginal Packing for prolapse support: no Comments: Patient tolerated procedure well. 2 swabs used to reduce prolapse. Home going instructions provided. Study given to Dr. Jimenez to review and discuss with patient. Please use Urodynamic Graph. ASSESSMENT: Filling and Storage: Bladder sensation is normal without bladder pain, without urgency and with normal detrusor function. Bladder capacity is reduced (219ml). There is normal urethral closure and no evidence of urodynamic stress incontinence. Voiding: Overall voiding function is normal. Urine flow is continuous with a fluctuating flow curve. Detrusor function during voiding is normal with a normal postvoid residual. Electromyography: Provocative maneuvers produced appropriate changes in waveforms. The EMG shows increased EMG activity with increased intraabdominal pressure. There was a decrease in the EMG activity during voiding consistent with normal function of the pelvic floor. PLAN: See progress note Randi Jimenez MD Kemal Cantu is a 76 year old (2x ) female with T2DM (A1C 5.7% 02/03/2022) s/p rectocele repair in 2015 s/p hysterectomy with bladder repair in 1988 s/p abdominoplasty s/p anticoagulation for stents (stopped 03/2022) who presents for preoperative discussion. History: Patient hs bothersome vaginal bulge symptoms and prior POP surgery Frequency: DTF every 2 hours Nocturia: 2-3 x per night Urinary urgency: daily Urge incontinence: small amount of daily UUI Stress incontinence: rare Pads: wears pads (for fecal smearing) Patient does need to splint or have stool trapping symptoms Patient is not currently sexually active. Pt stopped her aspirin and is no longer on AC Physical exam: Pelvic: External Genitalia: Bilateral erythema around labia major Vagina: Ant Wall - Cystocele Stage lll / lV prolapse ; Post Wall - Rectocele Stage lll / lV prolapse Cervix / Monroe - Stage lll / lV prolapse POP-Q: Prolapse Noted: Yes Aa = +1.0 Ba = +3.0 C = +4.0 gh = 5.0 pb = 4.0 tvl = 10.0 Ap = +1.0 Bp = +3.0 D = NA Vaginal epithelium: Atrophic Cervix: Absent Urethra: Normal, Supine cough stress test negative Bimanual: No tenderness, No masses Rectovaginal: No tenderness, No masses, Rectocele Anal Sphincter: Resting Tone: Weak Squeeze Strength: 1+ out of 5 Sphincter Defect: no Levator Ani Contraction: 2+ Levator Ani Tone: normal Levator Ani Tenderness: No Saddle Sensory Exam (S2-4): normal UA results: normal Bladder scan: Nurse performed and PVR 0 mL UDS reviewed: -Initial uroflow: Voided vol: 253 mL, Flow time: 56 sec, Q max: 8 mL/sec, Q av mL/sec, PVR: 75 mL, negative TRAFFIC AGENT -Filling cystometrics: First desire: 92 mL, Strong desire: 141 mL, Max. capacity: 219 mL, Maximum filling detrusor pressure 0 cm of water, no DO, and no MOE -Voiding cystometrics: Voided: 211 mL, Max Voiding Detrusor Pressure (Peak Pressure) 14cm H2O, P det Q max (Max Flow) (Pressure at peak): 1 cm H2O, Maximum Flow Rate: 16 mL/sec, Average Flow Rate: 5 mL/sec UDS Assessment: Filling and Storage: Bladder sensation is normal without bladder pain, without urgency and with normal detrusor function. Bladder capacity is reduced. There is normal urethral closure and no evidence of urodynamic stress incontinence. Voiding: Overall voiding function is normal. Urine flow is continuous with a fluctuating flow curve. Detrusor function during voiding is normal consistent with a normal postvoid residual. Electromyography: Provocative maneuvers produced appropriate changes in waveforms. The EMG shows increased EMG activity with increased intraabdominal pressure. There was a decrease in the EMG activity during voiding consistent with normal function of the pelvic floor. Discussed sling placement at the time of pelvic organ prolapse repair. We discussed that the purpose of urodynamic testing is to predict whether or not she will have new onset stress urinary incontinence after prolapse repair. We reviewed that this test is not perfect to predict urine leakage in the future. Based on urodynamic testing results, we will defer MUS placement at the time of pelvic organ prolapse repair. Consent discussion: Surgical risks were discussed. Patient understands risks and desires to proceed, consent signed. The patient was offered a surgery/procedure at a [facility] facility. The surgeon/proceduralist and patient have discussed in detail the risk of exposure to and/or potential harm posed by the COVID-19 virus with having a surgery/procedure at this time versus the risk of delaying the surgery/procedure. It is not possible to know either the risk of delaying the surgery or procedure or chance of getting an infection with perfect accuracy, but a joint decision was made between the patient and the surgeon/proceduralist to proceed at this time with the scheduled surgery/procedure as indicated on the consent form. Risks, benefits and alternatives to surgical management were discussed including but not limited to: bleeding, infection (most commonly UTI), pain, recurrence or non-resolution of symptoms (15% if incontinence procedure, 20% for modoc tissue repair, 5-15% if sacrocolpopexy), urinary retention (1-3% requiring intervention if incontinence procedure), complications from mesh if placed (3% if midurethral sling, 5% if sacrocolpopexy), vaginal scarring causing dyspareunia or pain, possible exploratory laparotomy, risk of prolonged Griggs catheterization, damage to surrounding organs, anesthetic complications, postoperative complications, or even the unlikely risk of Pertinent surgical history: Rectocele repair in 2015 Hysterectomy with bladder repair in 1988 Abdominoplasty 1992 Pain control: Motrin and tylenol ATC, oxycodone #5 for BTP Other Medications Colace 100mg BID Miralax daidory Send prescriptions to [facility] pharmacy on day of surgery Labs: Cr: 0.80 (04/13/2022) A1C: 5.7 (02/03/2022) Voiding plan: Plan for voiding trail after surgery. Pt counseled that if she fails trail of void, she would go home with griggs catheter and return in 2-3 days for another voiding trial. LOS: Same day discharge Surgical plan: Vaginal vault suspension, possible cystocele repair, possible rectocele repair, perineorrhaphy and cystoscopy on MondayMay 06 I spent a total of 30 minutes on the date of the service which included preparing to see the patient, [id number] patient care, completing clinical documentation, obtaining and/or reviewing separately obtained history, counseling and educating the patient/family/caregiver, and ordering medications, tests, or procedures. Randi Jimenez MD documented in this encounter [facility] 04-29-2022 Miscellaneous Notes Pharmacy verified in Epic Patient has been identified by name and date of : Yes Patient aware RX will be sent to pharmacy. No need to notify patient. Patient phones for refill(s): Requested Prescriptions Pending Prescriptions Disp Refills levothyroxine (SYNTHROID) 75 mcg tablet 90 tablet 1 Date of last office visit : 02/11/2022 Date of next office visit : 08/17/2022 Last 2 Encounter Wt Readings: Date: Wt: 04/22/2022 122 kg (269 lb) 03/28/2022 122.9 kg (271 lb) Not applicable Please advise. Taniya Nava Pss documented in this encounter [facility] 04-29-2022 Miscellaneous Notes Images from the original note were not included. Maria Del Rosario Cooney APRN.MICROGRINDER OPERATOR You 17 hours ago (3:35 PM) Yes all vitamins and supplements need to be stopped 7 days prior to surgery. She may continue Gas-X as needed. Called patient. Verified name and date of . Informed of message from Maria Del Rosario Cooney CNP- patient verbalizes understanding. Patient called. Verified name and date of . Patient would like clarification on taking the following medications as part of her preop and would like to know if she is top continue taking or needs to stop them: Vit C, Iron, Vit D, Probiotic, Vit A2, Co Q10, Zinc, and Gas X. Please review and advise. Jeannine Cummings LPN documented in this encounter [facility] 04-28-2022 Noa Ellis LPN - 04/28/2022 8:09 AM EDT UROGYNECOLOGY PHYSICIAN CONTACT INFORMATION During business hours, these numbers connect to your doctor s office. During the evening and weekends, these numbers will connect you to the answering service to speak with the doctor director of vocational training. Dr. Rausch Dr. Campuzano (Gordon) Dr. Davis Dr. Vidal Dr. Bay Dr. Borden Dr. Pedersen Dr. Jimenez Dr. Silver Meghan Edwards CNP Felicita Beauchamp, BILL Joan Tiffanie, BILL After hours phone number: or toll free Ask the tandem mill operator to page the 'claims associate director of vocational training.' Surgery Scheduling Office: Call the day before surgery after 2pm for your surgery arrival time PRE-OPERATIVE CHECKLIST: PATIENT INSTRUCTIONS PRIOR TO SURGERY Our guidelines have changed, so please read these instructions carefully. Your surgery may be cancelled if you do not follow these instructions. MY ARRIVAL TIME IS: I have been instructed not to have any solid food to eat after midnight prior to my surgery (this includes no gum, mints, smoking). I am allowed to drink small amounts (up to 12 oz) of clear liquids up until 2 hours prior to my arrival time. Clear liquids include water, fruit juices without pulp, carbonated beverages (i.e. allison thor), electrolyte beverages (i.e. Gatorade), clear tea and black coffee, clear broth, popsicles and jello. (No milk). No alcohol the day before or day of surgery. I will bring this binder to all pre and post-operative appointments AND day of surgery. MEDICATION STOPPAGE: Unless my surgeon tells me differently, I will STOP THESE MEDICATIONS 7 DAYS PRIOR TO SURGERY: (Motrin/ibuprofen/Naproxen/Aleve /Advil), Aspirin, vitamin E, herbal medications, diet pills, and ahrv-vss-zejrtak medications. Tylenol (acetaminophen) is okay. I will not wear jewelry, body piercing(s), makeup, nail kyrgyz, hairpins, or contacts on the day of surgery. I am to leave valuables and money at home or with family members. If I am prescribed inhalers for breathing, I will use them and bring them to the hospital. Medication(s) to be taken on the morning of surgery with a few sips of water: If I am taking any of the following blood thinning medications - Aspirin, clopidogrel (Plavix), ticagrelor (Brilinta), prasugrel (Efficient), ticlodipine (Ticlid), warfarin (Coumadin), dibigatran (Pradaxa) or rivaroxaban (Xarelto) - I will discuss whether or not I should stop them before surgery with my surgeon. Discuss medication changes with your systems admin or primary care physician as well. If I stopped taking my blood-thinning medication, I will ask the surgeon when to resume taking it. If I am an outpatient, a responsible person will drive me home and it was suggested that someone stay with me for 24 hours. I understand that a business law instructor or cabdriver is NOT a responsible caregiver. Patients with diabetes, I will not take my morning diabetes medication (pills) on the morning of surgery. If I am on insulin, someone has gone over those instructions with me for the morning of surgery. I understand if my surgery is delayed, I will notify the check in desk that I have diabetes. See the Diabetic Guidelines Before Surgery in the patient education section. If I have Obstructive Sleep Apnea and use a CPAP/BiPAP machine, I will bring my mask, tubing, and machine with me on the day of surgery. Pain management education material found in Your Surgical Guide was reviewed with me. To find out my arrival time for surgery, I must call my surgical services coordinator after 2pm the day before surgery. Pre-operative instructions given by: PREOP INSTRUCTIONS THE DAY OF SURGERY/CHECK IN Report to DESK 1-9 for surgery. A map is located in Your Surgical Guide Book. The online version of the surgical guide book can be found at: [email or web address] The address is [address] [place] [address]/[place] [address] INFECTION PREVENTION Please notify your doctor if you have any signs of an infection (i.e. fever, severe cough, nasal congestion, pain with urination, abnormal vaginal discharge, diarrhea, etc). Your surgeon will let you know if a bowel prep is needed before your surgery. If so, please see the attached instructions. Shower the night before surgery AND the morning of surgery with Hibiclens (provided by your surgeon). If you are allergic to Hibiclens or unable to obtain the Hibiclens, please wash with antibacterial soap. Wash your body from the neck down, focusing on your abdomen, belly button and external genitalia. Do not forget to scrub any skin folds and creases. No lotions, oils, creams, or powders after your shower. Underarm deodorant is okay. No shaving (abdominal or pubic hair) or douching the day before surgery. You may be asked to apply an antiseptic solution called Chlorhexidine Gluconate (CHG) which will be provided to you on arrival to the preop area. Hand washing is extremely important in preventing infection (for both you as the patient and for the caregivers). HOSPITALIZATION Before you leave the hospital, you typically need to be able to eat/drink, urinate, and have your pain controlled with oral medication. Your surgeon or other members of your surgeon s team will discuss any other specific medical issues related to your discharge with you. Your surgeon may order intermittent compression sleeves. These are massaging leg pumps to help prevent blood clots after surgery. See Your Surgical Guide Book for more information. It is also very important that you walk as soon as possible and as frequently as possible after surgery. This will help decrease your risk of blood clots, exercise your lungs and speed up your recovery after surgery. If you are admitted to the hospital overnight, you will be given an incentive spirometer, which is a breathing machine that will help make sure that you are taking deep breaths and expanding your lungs while in the hospital. See Your Surgical Guide Book for more information. UROGYNECOLOGY POSTOP INSTRUCTIONS ACTIVITY No heavy lifting/pushing/pulling for 4-6 weeks. Do not lift anything more than 10 lbs, vacuum, push heavy doors or grocery carts, etc. You may climb stairs as tolerated. Do not put anything in the vagina for 6 weeks after surgery unless otherwise instructed by your doctor (including tampons, douching, sexual intercourse, etc). No driving while you are taking narcotic pain medication, or until you feel that you are ready and can safely slam the brakes if needed. Avoid sitting or lying in bed for more than 2 hours at a time while you are awake to reduce your risk of blood clots. You may return to work when directed by your physician. Please contact your doctor if you need any return to work letters or medical leave paperwork to be completed. PAIN MANAGEMENT After you go home, you should take the prescribed acetaminophen (Tylenol) and ibuprofen (Motrin) as directed. These should be the first medications you use for pain. We recommend rotating the timing of these medications so that you are taking one of these medications every 3 to [address], you can help prevent pain. After the first 72 hours, you can take these medications as needed. Applying ice packs to your incisions (abdominal or vulvar/perineal) for 20 minutes as often as needed may also help. Some pain medications can cause constipation so you should take a stool softener (i.e. Colace) or laxative (i.e. Miralax) while you are on these medications (see the following section on constipation). You may have been prescribed an opioid medication, also known as a narcotic pill. These opiate medications have side effects like nausea or vomiting, constipation, and sleepiness. You should only take them if your pain is not controlled by ibuprofen and/or acetaminophen. It is important to keep this stronger pain medication safely stored, as it is at great risk of being stolen or misused by family, friends, or even strangers. Please be sure to dispose of leftover pain medication after you have recovered. You may dispose of unused narcotic medications in the trash with an unpleasant substance such as coffee grounds or cat litter. You can also check FDA.gov to assess which medications can be safely flushed down the toilet. There are locations to dispose of unused medications at three [facility] locations: [facility] pharmacy, [facility] pharmacy, and the Pharmacy at the [facility] for [facility] (inside the parking garage on the first floor). CONSTIPATION You may not have a bowel movement for 3-5 days after surgery. This is normal. To help prevent constipation after your surgery, you may receive prescriptions to take including the following: Colace (docusate sodium) 100 mg (1 capsule) two times a day Miralax (polyethylene glycol) 17 g (1 measured capful or 1 packet) once a day. If you have not had a bowel movement 3 days after surgery, you may take the Miralax two times a day. If you have any discomfort because of the need to have a bowel movement, you may add milk of magnesia or magnesium citrate (available at your local pharmacy without a prescription) at any time. Do not take milk of magnesia or magnesium citrate if you have kidney failure. If you have loose or watery stools, stop taking the medications and call your doctor s office. OTHER MEDICATIONS If you were prescribed vaginal estrogen, you should resume it in 7-10 days after surgery unless you were instructed otherwise. Please check your discharge instructions about when to resume other medications. WOUND CARE Shower daily after surgery. No tub baths until wound is completely healed. If you have any abdominal incisions, wash them daily with a mild antibacterial soap and water. Pat your incision dry with a clean towel. Wash your hands frequently, especially before touching your incision, changing any dressings, after using the restroom, and before eating. GRIGGS CATHETER CARE You may go home with a Griggs catheter in your bladder. You will need to follow up for a nurse visit within 3-10 days for removal. You will be called by the office to get this appointment if it is not listed below. General Principles on Catheter Care: Always wash your hands with soap and water before handling your catheter tubing or bag. It is important to empty your catheter bag before it gets too full. Keep the catheter tubing free of kinks and Griggs bag below the level of your bladder. Keep your genital region and catheter tubing clean. Instructions on Catheter Plug Use: A catheter plug is used to occlude the end of the catheter so that it can be disconnected from the drainage bag during the day. You may be sent home with catheter plugs. Your postop nurse will give you instructions on how to use the plug before going home. The Griggs catheter must be disconnected from its drainage tubing and bag. The plug can then be inserted into the open end of the catheter. The plug should fit snugly. While the plug is in place, your bladder will fill with urine. You must empty your bladder by removing the plug and draining the catheter over the toilet at least every 3 to 4 hours, or sooner if you feel an urge to urinate. After you have drained the catheter, replace the plug. The catheter should be reconnected to the drainage bag at night so that your bladder can continuously drain while you are sleeping. The plug can be washed every night before bedtime with soap and water. Store it in a clean plastic Ziploc bag when it is not in use. You can continue daytime catheter plugging until your scheduled voiding trial. WHAT TO EXPECT AT HOME Recovery from surgery is generally 4 weeks, but sometimes longer for more strenuous activity. It is normal to be very tired during this time. It is normal to have some drainage or a small amount of vaginal bleeding after surgery which may last up to 6 weeks. It is normal to have some bruising around the vaginal opening or on the buttocks if you had a vaginal surgery or around your incisions if you had an abdominal or laparoscopic surgery. If you had a laparoscopic surgery, you may experience gas pain, abdominal swelling, or shoulder pain for 24-72 hours after surgery. A warm shower, heating pad, and/or walking may help. WHEN TO CALL YOUR DOCTOR: If you cannot urinate for 4 hours or are only able to urinate small amounts. Fever (>100.4 F or 38.0 C) or chills. Incision problems such as redness, warmth, swelling, or foul-smelling drainage. Severe nausea or persistent vomiting. Bright red vaginal bleeding (soaking >1 pad/hour) Foul smelling vaginal drainage (note that some vaginal discharge is normal) Severe pain not relieved with pain medication. Pain and swelling in your legs, especially if it is only on one side and not the other. Pain with urination, cloudy urine, or foul-smelling urine. Or if you have any other problems or questions. CALL 911 OR GO TO THE EMERGENCY ROOM IF YOU HAVE: shortness of breath, difficulty breathing, or chest pain. UROGYNECOLOGY PHYSICIAN CONTACT INFORMATION Dr. Rausch Dr. Campuzano ([facility]) Dr. Silver Dr. Davis Dr. Vidal Dr. Borden Dr. Pedersen Dr. Jimenez Meghan Edwards, MICROGRINDER OPERATOR Manuel Torres, MICROGRINDER OPERATOR Felicita Beauchamp, MICROGRINDER OPERATOR Joan Moreno, MICROGRINDER OPERATOR Please DO NOT use MyChart for post-surgery concerns. [facility] TEAM At the [facility], we have a multidisciplinary team of caregivers that includes fellows, residents, nurse practitioners, physician assistants, clinical nurse specialists, nurses, medical assistants, patient care nursing assistants, social workers, case aide and many others. We all have different roles and responsibilities but we are all here to help. documented in this encounter [facility] 04-28-2022 History of Presen t illness Narrative DATE OF SERVICE: 04/28/2022 PROBLEM: Kemal Cantu presents for pre-op teaching. PRE-OP DIAGNOSIS: vaginal prolapse SCHEDULED SURGERY AND DATE: 05-06-22 [facility] COLPOPEXY VAGINAL EXTRA-PERITONEAL, ANTERIOR COLPORRHAPHY REPAIR CYSTOCELE WITH OR W/O REPAIR URETHROCELE INCLUDING CYSTOURETHROSCOPY WHEN PERFORMED, POSTERIOR COLPORRHAPHY W/ REPAIR RECTOCELE AND PERINEORRHAPHY, SLING SURGERY FOR STRESS INCONTINENCE W/ TENSION FREE VAG TAPE, and CYSTOSCOPY PRIMARY SURGEON: Dr. Randi Jimenez NURSING PREOP ASSESSMENT: Fevers, chills, cough, or nasal congestion: No Vaginal itching, burning, discharge, or odor: No Pain with urination, frequency, urgency, cloudy or foul smelling urine: No If yes to any of the above then MD notified: Not Applicable ADVANCED CARE PLANNING: Does the patient have an advanced directive: Yes Does [facility] have a copy of the patient's advanced directive: Yes Was advanced directive given to the patient: No PATIENT LEARNING ASSESSMENT: Individual patient/family learning needs evaluated and addressed: Yes Cognitive ability: Alert and oriented Motivation to learn: Eager Interested Factors affecting learning: None Physical limitations affecting learning: None Patient learns best by: Multiple Methods Method of instruction: Individual instruction Instructions provided to: Patient via telephone. Written material provided prior to education appointment. Family support: High - Very involved in pt care PRE- AND POST-OPERATIVE TEACHING Pre-operative teaching and supplemental material provided and reviewed with patient: Written pre-op and post-op instructions Antibacterial soap: patient declined, will use own Pre-operative instructions provided and reviewed with patient/family: No eating, drinking, or smoking after midnight prior to surgery unless otherwise directed No alcohol the day before surgery Medications as prescribed by anesthesia, internal medicine, surgeon, or FOOD AND DRINK FACTORY WORKERS Stop NSAIDs, Aspirin (ASA), vitamins, herbal supplements, herbal teas, and diet pills 7-10 days prior to surgery OK to take tylenol prn pain unless otherwise directed by physician Call surgery coordinators if any other questions about surgery date or pre-op appointments Bowel prep instructions: NPO after midnight Day of surgery instructions provided and reviewed with patient/family: Arrival time (call surgical coordinators on the office day prior to surgery for verification) No jewelry, body piercing, makeup, contacts, lotions, nail kyrgyz on fingers, or anything in hair on arrival to surgery Wear low healed shoes and loose fitting clothing Leave all valuables at home or with a family member Directions to [facility] Parking/parking validation on the day prior to surgery Admission/check in (Report to DESK J1-9 for surgery) Holding area Placement of IV Surgical positioning Family waiting area Surgical recovery room Post-operative instructions provided and reviewed with patient/family: SEE PATIENT INSTRUCTION SECTION FOR DETAILS. SYMPTOMS TO NOTIFY MD - Fever, chills, nausea, vomiting, increased or severe pain, heavy vaginal bleeding, foul smelling vaginal drainage, pain or swelling in extremities. URGENT SYMPTOMS - Call 911 or go to ER if any shortness of breath, difficulty breathing, or chest pain. HOW TO CONTACT PHYSICIAN - Physician's office phone number given to patient, if after hours patient instructed to call tandem mill operator and ask for director of vocational training claims associate onc resident. MICKY program offered to patient: Yes Additional teaching as indicated by patient/family learning needs. PATIENT LEARNING EVALUATION & FOLLOW UP PLAN: Patient and/or family express understanding of upcoming surgery, pre-operative preparation, the operative process, and post-operative instructions. Follow up plan: Patient instructed to call with any further issues Patient has a post-op appointment scheduled: Yes 06-06-22 at 10:30am with Carol Mays Referral (recommentation): None Educator: Gt Ellis LPN [facility] documented in this encounter [facility] 04-27-2022 Miscellaneous Notes Called and spoke with patient. She states she was instructed by her surgeon on when to hold the Brilinta but was not aware of the Aspirin. She is aware and agreeable to hold for 7-10 days prior. Alessia Luque LPN Images from the original note were not included. Maria Del Rosario Cooney APRN.BILL Luque LPN Please call pt and make sure she is aware of systems admin instructions for pre-op AC instructions given. The patient may hold Aspirin 7-10 days and Brilinta is on hold for 5-7 days prior. documented in this encounter [facility] 04-26-2022 History of Presen t illness Narrative Received fax Payton Bruno CNP at [facility], clearing patient for surgery. The patient may hold Aspirin 7-10 days and Brilinta is on hold for 5-7 days prior. Sent to medical records to be scanned. documented in this encounter [facility] 04-22-2022 Miscellaneous Notes Received office visit, stress test and EKG from [facility]. Copy made for Maria Del Rosario Cooney CNP and original sent to tandem mill operator to scan. Alessia Luque LPN Called and left a message with Nadia (Dr. Fitch's medical office receptionist) requesting patients office visit and cardiac testing from 04/22/22. Alessia Luque LPN documented in this encounter [facility] 04-22-2022 Instructions Maria Del Rosario Cooney APRN.BILL - 04/22/2022 1:26 PM EDT PATIENT PREOPERATIVE INSTRUCTIONS No ref. provider found has scheduled you for your procedure at this surgery center: [facility] Scheduling Office: [phone] --[address] [place] [address]. Please read below carefully for your personalized instructions. Dietary Restrictions: - No solid food after midnight. - You may have 12 ounces of clear liquids (water, clear juices such as apple juice or gatorade, carbonated beverages, clear tea, black coffee, jello) until 2 hours before scheduled arrival at facility. Medications: Unless instructed differently below, stay on all of your medications until your surgery. Approved medications to take the morning of surgery with a sip of water: Amlodipine, Atorvastatin, Wellbutrin, Horizant, Levothyroxine, Metoprolol, Singulair, Omeprazole, Mirapex DO NOT TAKE YOUR Diovan THE NIGHT BEFORE OR MORNING OF SURGERY - No diabetic medication the morning of surgery. - Accucheck day of surgery. If you start any new medications after today's visit, please contact the surgeon's office. Blood Thinning Medications: - Stop NSAIDS (Ibuprofen, Advil, Aleve, Motrin, Celebrex, Mobic, etc.) 7 days before surgery, as directed by your surgeon. - Stop Aspirin 7 days before surgery, as directed by your surgeon. - Stop Vitamin E, ALL multi-vitamins, herbals and dietary supplements 7 days before surgery. - You may take Tylenol (Acetaminophen) or any of your pain medications that do not contain aspirin or NSAIDS as needed. Important Reminders: - If you use CPAP/BIPAP, bring the machine with you to the surgery center. - If you are prescribed inhalers for breathing, continue using them. - Candy, mints, and tobacco products are NOT permitted the morning of surgery. - Hearing aids, dentures and glasses may be worn the morning of surgery. - NO jewelry, body piercings, makeup, hairpins or contacts are to be worn the day of surgery. If you develop symptoms such as a fever, cold, or flu, or have other changes to your health within TWO DAYS of scheduled surgery or the morning of surgery, please contact the surgery center above. Personal Belongings: -Please have photo ID and insurance cards. -If you do not have a copy of advance directives on file with us, please bring a copy with you on the day of surgery. - Leave ALL valuables and money at home or with family members. For Outpatient Procedures: - YOU MUST HAVE A RESPONSIBLE CLASS A LINEMAN TAKE YOU HOME. A SHOPPER'S AIDE OR SHELLFISH MANAGER CANNOT BE MADE A RESPONSIBLE CLASS A LINEMAN. - We recommend that a responsible person stays with you overnight to take care of you. - You cannot stay in a hotel alone after outpatient surgery. You will not be permitted to have your surgery, if you do not have someone to take care of you. Arrival Time for Surgery: - To obtain your arrival time for surgery, call your physician's office the day before your surgery. - If your surgery is scheduled for Monday, call the Monday before. Your surgeon s master scheduler will tell you what time to call the office. - If you have not reached the departmental master scheduler by 5 P.M., call [phone] after 5 P.M. the day before your surgery. Please be aware that emergency situations arise, which may delay or change your surgical time. If this happens, we will notify you as soon as possible and regret any inconvenience. If you already have an Advance Directive, please fax a copy to [phone] or email to for it to be added to your chart. If you do not have an Advance Directive, you can find the appropriate form and more information at [email or web address]. We recommend that you complete the Advance Directive form found on the website and bring it with you the day of your surgery. It can be witnessed and scanned into your chart that day. Maria Del Rosario Cooney APRN.BILL documented in this encounter [facility] 04-22-2022 History and physical note Images from the original note were not included. HISTORY AND PHYSICAL EXAMINATION SERVICE DATE: 04/22/2022 SERVICE TIME: 1:02 PM PRIMARY CARE PHYSICIAN: Helen Chapa MD REASON FOR VISIT: Kemal Cantu is a 76 year old female who is scheduled for Procedure(s): COLPOPEXY VAGINAL EXTRA-PERITONEAL (N/A) ANTERIOR COLPORRHAPHY REPAIR CYSTOCELE WITH OR W/O REPAIR URETHROCELE INCLUDING CYSTOURETHROSCOPY WHEN PERFORMED (N/A) POSTERIOR COLPORRHAPHY W/ REPAIR RECTOCELE AND PERINEORRHAPHY (N/A) SLING SURGERY FOR STRESS INCONTINENCE W/ TENSION FREE VAG TAPE (N/A) CYSTOSCOPY (N/A) at the request of @REFPROV2@ for consultation. My final recommendation will be communicated back to the requesting physician by way of shared medical record or letter. Subjective The patient has the following: 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 With Serious Comorbidity and Body Mass Index (Bmi) of 40.0 to 44.9 in Adult (Hcc) Type 2 Diabetes Mellitus, Without Long-Term Current Use of Insulin (Hcc) Essential Hypertension, Benign Mixed Hyperlipidemia Hypothyroidism Michelle (Iron Deficiency Anemia) Anxiety and Depression Chronic Back Pain Primary Osteoarthritis Involving Multiple Joints Gerd (Gastroesophageal Reflux Disease) Other Irritable Bowel Syndrome Maurice On Cpap Chronic Headache Rls (Restless Legs Syndrome) Fibromyalgia 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 Ckd (Chronic Kidney Disease) Colon Cancer Screening 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 CHIEF COMPLAINT: Pre-op exam HPI: ISABEL is a 76 yo seen for PAC due to scheduled above surgery because of vaginal prolapse. 03/07/2022 Dr. Tony Cantu is a 76 year old (2x ) female with T2DM (A1C 5.7% 02/03/2022) s/p rectocele repair in 2015 s/p hysterectomy with bladder repair in 1988 s/p abdominoplasty currently on anticoagulation for stents (will stop 03/2022) who presents for consultation requested by Dr. Mustafa for an opinion regarding vaginal prolapse. HISTORY OF PRESENT ILLNESS: Pt reports bothersome POP. Pt c/o prolapse since 2017 and has been getting worse since 2019. Pt had a rectocele in 2016 when she lived in [place] (Dr. Razia [address]) Pt recently tried a pessary but was unable to urinate Pt has also tried Oxybutynin in the past She is currently using vaginal estrogen. Pt is currently on anticoagulation for stent but will stop this next month. She will need cardiac clearance for surgery. UROGYNECOLOGIC REVIEW OF SYSTEMS: Vaginal bulge: reports Daily Fluids: 1. Coffee, Caffeine: 1-2 cups of coffee 2. Water: 64oz of water 3. Other: Frequency: DTF every 2 hours Nocturia: 2-3 x per night Urinary urgency: daily Urge incontinence: small amount of daily UUI Stress incontinence: rare Pads: wears pads (for fecal smearing) Pain/Discomfort: denies Voiding symptoms: + sensation of incomplete emptying, denies hesitancy, changes in stream splinting to urinate Urinary tract infections or Pyelonephritis: denies Stones: denies Hematuria: denies Malignancy or pediatric voiding dysfunction: denies Abnormal vaginal bleeding: denies Abnormal vaginal discharge: denies Vaginal dryness: denies Bowel symptoms: 6-7 BM every day, + diarrhea, +IBS, denies constipation, + fecal incontinence (once per month) , fecal urgency, + stool trapping symptoms, + splinting to have a BM, blood in stool, Last colonoscopy (2020): normal Sexual activity: not currently sexually active OTHER RELATED REVIEW OF SYSTEMS: Neurologic: denies numbness, cognitive dysfunction, spinal injury, neuropathic pain Constitutional: denies weight loss, fever, generalized weakness Endocrine: denies hot flashes Psychiatric: denies anxiety, depression Medical and Symptom History: OFFICE ASSOCIATE HISTORY: Last Pap: Date:1988 when she had hysterectomy; Last Mammogram: Her last mammogram was 12/03/21. She has no history of an abnormal mammogram LMP: No LMP recorded. Patient has had a hysterectomy.; Menopause hysterectomy: Menstrual history: NA; Deliveries: History of third or fourth degree laceration: Yes Weight of largest baby: 8lbs 10oz Sexual function Sexually active: Not sexually active REVIEW OF SYSTEMS: General: No weight loss, malaise or fevers. Neurological: RLS on rx Positive for: headaches (migraines, otc rx as needed). Respiratory: Positive for: obstructive sleep apnea and CPAP/BiPAP noncompliant. Negative for: asthma, COPD, pneumonia within 6 weeks, tobacco use and URI < 2 weeks. Cardiovascular: Positive for: anticoagulation therapy (ASA, Brillinta), CAD, hyperlipidemia (on rx) and hypertension (on rx) Patient's last office visit The following tests and/or procedures were performed: cardiac stents. Negative for: arrhythmia, atrial fibrillation, chest pain, CHF, congenital heart defect, DVT/PE, recent KS, murmur/valvular heart disease, open heart surgery and valve surgery. GI: Positive for: GERD (on rx) Negative for: abdominal pain, dysphagia, hepatitis, irritable bowel syndrome, inflammatory bowel disease, liver disease, nausea, pancreatitis, vomiting and ETOH >2 drinks/day. : Positive for: renal failure. Patient's renal failure is chronic. Negative for: urinary incontinence, nephrolithiasis and urinary tract infection. OFFICE ASSOCIATE: Negative for abnormal vaginal bleeding, abnormal vaginal discharge. Endocrine: Positive for: diabetes mellitus and hypothyroidism (on rx). Patient's diabetes mellitus is controlled by oral agents. Hematology: Positive for: anemia, anemia of chronic disease (on rx), bruises/bleeds easily and chronic anti-coagulation/platelet meds. GENOVEVA - Chronic Anticoagulative/Platelet Meds Cmt Option Cat List: ASA, Brillinta. Negative for: transfusion of at least 4 units within 72 hours prior to surgery. Oncology: No history of CA metastasis, chemo within 30 days, or radiotherapy within 90 days. No history of oncological symptoms or problems. Psych: Positive for: anxiety (on rx) and depression (on rx). Musculoskeletal: +hx BL TKA +spinal stenosis, no surgical intervention Skin: Dry skin, rx as needed PAST MEDICAL HISTORY Diagnosis Date Diabetes mellitus (HCC) Fibromyalgia Fuchs' corneal dystrophy Gastroesophageal reflux disease Glaucoma HTN (hypertension) Hypothyroidism Irritable bowel syndrome Migraines MAURICE (obstructive sleep apnea) does not use c-pap Osteoarthritis Plantar fasciitis PONV (postoperative nausea and vomiting) Pseudophakia PTSD (post-traumatic stress disorder) Restless leg syndrome Sleep apnea in adult TMJ (dislocation of temporomandibular joint) PAST SURGICAL HISTORY Procedure Laterality Date CATARACT EXTRACTION W/ INTRAOCULAR LENS IMPLANT HX Bilateral 2017 COLONOSCOPY FLX DX W/COLLJ SPEC WHEN PFRMD 06/21/2021 CORNEAL TISSUE DSAEK/DMEK Left 09/30/2019 Dr. Clark ENDOTHELIAL KERATOPLASTY(DMEK) Right 04/17/2019 ENDOTHELIAL KERATOPLASTY/DSAEK Right 03/18/2019 ESOPHAGOGASTRODUODENOSCOPY TRANSORAL DIAGNOSTIC 06/21/2021 PAST SURGICAL HISTORY OF 1972 parathyroid adenoma surgery PAST SURGICAL HISTORY OF 1988 hysterectomy with prolapsed bladder repair PAST SURGICAL HISTORY OF 1992 abdominoplasty PAST SURGICAL HISTORY OF 1993 breast reduction PAST SURGICAL HISTORY OF 1979 deviated septum repair PAST SURGICAL HISTORY OF 1965 D&C after miscarriage PAST SURGICAL HISTORY OF 2013 Total right knee repalcement PAST SURGICAL HISTORY OF 11/2013 total left knee replacement PAST SURGICAL HISTORY OF 2015 rectocele repair with vaginal mesh PAST SURGICAL HISTORY OF 11/01/2015 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 PAST SURGICAL HISTORY OF 2018 DMEK Corneal Transplant-Right eye PAST SURGICAL HISTORY OF Left 10/10/2019 INJECTION, ANTERIOR CHAMBER OF EYE; AIR PAST SURGICAL HISTORY OF Right 1997 cyst removal off right 4 toe PAST SURGICAL HISTORY OF hammer toe surgery PRQ CARDIAC STENT W/ANGIO 1 VSL 03/02/2021 90% blockage RCA SKIN LESION BIOPSY 10/2015 x2 face YAG CAPSULOTOMY OD (RIGHT EYE) 2018 YAG CAPSULOTOMY OS (LEFT EYE) 2018 FAMILY HISTORY Problem Relation Age of Onset Heart Mother Diabetes Mother Heart Father Stroke Father Cataract Paternal Grandfather Glaucoma Other Social History Tobacco Use Smoking status: Never Smokeless tobacco: Never Tobacco comments: Second hand smoke (mother) Vaping Use Vaping Use: Never used Substance Use Topics Alcohol use: Yes Alcohol/week: 1.0 standard drink Types: 1 Glasses of wine per week Comment: 3-4 glasses of wine per year Drug use: Never Prior to Admission medications as of 03/07/22 1306 Medication Sig Last Dose Taking WHEAT DEXTRIN ORAL Take by mouth. Gummy Taking Yes glyBURIDE (DIABETA) 2.5 mg tablet Take 0.5 tablets by mouth daily with breakfast. Taking Yes fluticasone (FLONASE) 50 mcg/actuation nasal spray Use 2 Sprays in each nostril once daily. Taking Yes metFORMIN (GLUCOPHAGE) 1,000 mg tablet Take 1 tablet by mouth daily with breakfast. Taking Yes ketoconazole (NIZORAL) 2 % cream Apply to affected area once daily. Used for fungal skin fold rashes Taking Yes buPROPion SR (ZYBAN SR; WELLBUTRIN SR) 150 mg 12 hr tablet Take 1 tablet by mouth once daily. Taking Yes LUMIGAN 0.01 % drop ophthalmic drops instill 1 drop into both eyes once daily at bedtime Taking Yes omeprazole (PRILOSEC) 40 mg capsule Take 1 capsule by mouth twice daily. Taking Yes pramipexole (MIRAPEX) 0.125 mg tablet Take 2 tablets by mouth four times daily. Taking Yes HORIZANT 300 mg TbER Take 3 tablets by mouth once daily. Taking Yes montelukast (SINGULAIR) 10 mg tablet take 1 tablet by mouth at bedtime Taking Yes atorvastatin (LIPITOR) 10 mg tablet Take 1 tablet by mouth once daily. Taking Yes ubidecarenone (COENZYME Q10) 100 mg tab Take 200 mg by mouth once daily. Taking Yes simethicone (GAS-X ORAL) Take 125 mg by mouth twice daily. Taking Yes multivit,thx,calcium,iron,mins (MULTIVITAMIN AND MINERAL ORAL) Take by mouth. Taking Yes vitamin K2 100 mcg cap Take 100 mcg by mouth. Taking Yes Zinc 50 mg tab Take 50 mg by mouth. Taking Yes amLODIPine (NORVASC) 2.5 mg tablet Take 2.5 mg by mouth once daily. Taking Yes conjugated estrogens (PREMARIN) vaginal cream Use 0.5 g vaginally two times a week. Taking Yes levothyroxine (SYNTHROID) 75 mcg tablet take 1 tablet by mouth once daily ON AN EMPTY STOMACH Taking Yes semaglutide (OZEMPIC) 1 mg/dose (2 mg/1.5 mL) pen injector Inject 1 mg subcutaneously one time a week. Taking Yes valsartan (DIOVAN) 320 mg tablet Take 1 tablet by mouth once daily. Taking Yes metoprolol tartrate, short acting, (LOPRESSOR) 50 mg tablet Take 50 mg by mouth twice daily. Taking Yes Bifidobacterium infantis (ALIGN ORAL) Take 1 tablet by mouth once daily. Taking Yes LOW-DOSE ASPIRIN ORAL Take 81 mg by mouth once daily. Taking Yes blood sugar diagnostic (ApogeeInventUCH ULTRA TEST) test strip Test blood sugar once a day DX: E11.9 Taking Yes diclofenac sodium (VOLTAREN) 1 % topical gel Apply 2 g to affected area four times daily. Taking Yes amoxicillin (POLYMOX, AMOXIL) 500 mg capsule Take 500 mg by mouth. Take 4 capsules 1 hour before dental procedures. Taking Yes ascorbic acid, vitamin C, (VITAMIN C) 250 mg tablet Take 250 mg by mouth once daily. Taking Yes ferrous sulfate EC 324 mg (65 mg iron) TbEC Take 324 mg by mouth once daily. Taking Yes cholecalciferol (VITAMIN D3) 50 mcg (2,000 unit) tablet Take 2,000 Units by mouth once daily. Taking Yes aspirin 81 mg cap Take by mouth. urea (CARMOL) 40 % Apply to affected area once daily. Patient not taking: Reported on 03/07/2022 L.acid/B.animalis,bifidum/FOS (PROBIOTIC COMPLEX ORAL) Take by mouth. Wheat Dextrin 3 gram/3.5 gram Take by mouth as needed. Patient not taking: Reported on 01/03/2022 ticagrelor (BRILINTA) 90 mg tablet Take 90 mg by mouth twice daily. No medication comments found. ALLERGIES Allergen Reactions Bacitracin (Bulk) Hives Codeine Unknown Dust Mites Other: See Comments Gentamicin Swelling redness of eye watery and itching Mold Unknown Sulfa (Sulfonamide * Other: See Comments redness Sulfabenzamide Hives Tree Pollen-Red Map* Shortness of Breath Objective PHYSICAL EXAM: General: alert and oriented (x3), healthy appearance and morbidly obese. Pertinent negatives noted - not distressed. Skin: normal color, no rash or lesions. HEENT: EOM intact and pupils equal round. Pertinent negatives noted - no carotid bruit. Cardiovascular: regular rate and rhythm, normal S1 and S2, no rub, murmurs, or gallop. Respiratory: normal breath sounds, no wheezes or crackles. No chest wall deformity or tenderness. Abdomen: soft. Pertinent negatives noted - not tender. Extremities: no deformity, no edema or tenderness, no joint swelling or clubbing. Neurological: normal cognition and motor skills. Gait normal. No weakness or sensory deficit. PAIN ASSESSMENT: Pain Pain Level: 1 Pain Location: Vagina Description: Burning Duration Amount of Time: 5 Duration Units: Years Frequency: Continuous VITALS: There were no vitals taken for this visit. Diagnostic tests reviewed for today's visit: Lab Value Units Date High Low HB 13.0 g/dL 02/03/2022 15.5 11.5 HCT 40.4 % 02/03/2022 46.0 36.0 WBC 4.73 k/uL 02/03/2022 11.00 3.70 PLT 258 k/uL 02/03/2022 400 150 NA 138 mmol/L 04/13/2022 144 136 K 4.3 mmol/L 04/13/2022 5.1 3.7 GLUC 118 mg/dL 04/13/2022 99 74 BUN 19 mg/dL 04/13/2022 21 7 CREAT 0.80 mg/dL 04/13/2022 0.96 0.58 PTSEC No results within date range. INR No results within date range. APTT No results within date range. ALT No results within date range. AST No results within date range. TBILI No results within date range. TSH 3.370 mIU/L 02/03/2022 4.200 0.270 Lab Value Units Date High Low HCGQT No results within date range. UHCG No results within date range. HCG, BODY* No results within date range. Lab Value Units Date High Low ABORHD No results within date range. ABSCREEN No results within date range. Hemoglobin A1C (%) Date Value 02/03/2022 5.7 08/18/2021 6.6 05/18/2021 6.1 03/19/2021 7.1 02/12/2021 7.8 10/28/2020 6.9 No results found for this or any previous visit (from the past 8760 hour(s)). Recent Results (from the past 79490 hour(s)) ECHO Collection Time: 08/27/19 9:00 AM Result Value Instrument Maker And Repairer Echocardiography Report: Transthoracic Echo [facility] Date of service: 08/27/2019 9:00:10 AM CAGER Ordering physician: FRANCESCO CASTREJON Indication: Abnormal chest X-ray Symptom(s): Shortness of breath Technologist: Nat Ny [facility] [[email or web address]] Interpreting physician: Scott Monae DO PATIENT: Name: KEMAL CANTU : 1945 Age: 73 years Gender: F History of hypertension, diabetes mellitus and dyslipidemia. Primary rhythm: sinus. Height: 170.80 cm BSA: 2.44 m Weight: 125.19 kg BMI: 42.9 kg/m Heart rate 75 bpm Color Doppler was utilized to interrogate the cardiac valves assessed and spectral Doppler was utilized to determine the flow velocities and pressure gradients reported in this exam. MEASUREMENTS: Value Indexed Normal Max aortic dimension 3.0 cm Ao < 3.8 Left atrium diameter 4.8 cm (M-Mode) Left atrial volume 45 ml (4ch A-L) 18 ml/m Justino <= 34 LV ID (diastole) 4.0 cm (2D) 1.66 cm/m LV ID (systole) 2.6 cm (2D) 1.05 cm/m IVS, leaflet tips 1.0 cm (2D) Posterior wall thickness 1.0 cm (2D) Left ventricular mass 126 g (2D) 52 g/m LV stroke volume 72 ml (2D 4-ch.) LV end diastolic volume 110 ml (2D 4-ch.) 45.2 ml/m 29<=EDVi<62 LV end systolic volume 39 ml (2D 4-ch.) 15.8 ml/m Ejection Fraction 65 % (2D 4-ch.) EF > 54 FINDINGS: LEFT VENTRICLE The left ventricle is normal in size. Left ventricular systolic function is normal. Grade I left ventricular diastolic dysfunction. Mitral annular lateral E/e': 16.3. Mitral annular septal E/e': 16.3. Wall Motion: All scored segments are normal. RIGHT VENTRICLE The right ventricle is normal in size. Right ventricular systolic function is normal. RV systolic tissue Doppler velocity is 12.0 cm/s. Estimated right ventricular systolic pressure is not reported due to an insufficient tricuspid regurgitation signal. Estimated right atrial pressure is not included as the IVC was not seen. LEFT ATRIUM The left atrial cavity is normal in size. RIGHT ATRIUM Unable to reliably measure RA volume due to technical limitations. MITRAL VALVE The mitral valve leaflets are structurally normal. There is mild mitral annular calcification observed posterior. There is no mitral valve regurgitation. The pressure half time is 81 msec. The peak mitral E/A ratio is 0.87. The average mitral E/e' ratio is 16.3. The mitral flow deceleration time is 279 msec. TRICUSPID VALVE The tricuspid valve leaflets are structurally normal. There is trace tricuspid valve regurgitation. AORTIC VALVE There is no aortic valve regurgitation. Tricuspid aortic valve. There is mild thickening. There is mild calcification. The peak gradient is 14 mmHg (peak velocity = 189.2 cm/s). PULMONIC VALVE T he pulmonic valve cusps are structurally normal. There is no pulmonic valve regurgitation. AORTA The visualized aorta is normal in size. Measurements - Sinus: 2.9 cm. Sinotubular junction 2.2 cm. Mid ascending aorta 3.0 cm. PULMONARY ARTERIES The pulmonary arteries are unseen or not interrogated. PERICARDIUM There is no pericardial effusion. There is an epicardial fat pad. CONCLUSIONS: - Exam indication: Abnormal chest X-ray - The left ventricle is normal in size. Left ventricular systolic function is normal. EF = 65 5% (2D 4-ch.) Grade I left ventricular diastolic dysfunction. - The right ventricle is normal in size. Right ventricular systolic function is normal. - Definity contrast could not be administered d/t unavailability of staff. - The patient has not had a prior CC echocardiographic exam for comparison. Final Assessment Anxiety and depression Assessment: stable on rx per pt Chronic headache Assessment: otc rx as needed CKD (chronic kidney disease) Assessment: Creatinine Date Value Ref Range Status 04/13/2022 0.80 0.58 - 0.96 mg/dL Final 08/18/2021 1.01 (H) 0.58 - 0.96 mg/dL Final 06/03/2021 1.09 (H) 0.58 - 0.96 mg/dL Final 04/28/2021 1.05 (H) 0.58 - 0.96 mg/dL Final Class 3 severe obesity due to excess calories with serious comorbidity and body mass index (BMI) of 40.0 to 44.9 in adult ([facility]) Assessment: Body mass index is 42.13 kg/m . 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 ([facility]) Assessment: hx stents, received cardiac clearance and AC instructions to be scanned into epic Essential hypertension, benign Assessment: controlled on rx Last 14 BP Last 14 Encounter BP Readings: Date: BP: 04/22/2022 138/84 03/07/2022 132/84 02/11/2022 132/68 12/08/2021 128/72 11/30/2021 120/64 11/29/2021 138/86 11/17/2021 146/52[travel, nervious[ 11/15/2021 132/72 11/01/2021 136/80 09/03/2021 132/70 07/14/2021 122/64 07/12/2021 108/62 06/21/2021 109/62 05/24/2021 132/66 Fibromyalgia Assessment: on rx Gastroesophageal reflux disease with esophagitis Assessment: controlled on rx Hypothyroidism Assessment: stable on rx MICHELLE (iron deficiency anemia) Assessment: on rx Hemoglobin (g/dL) Date Value 02/03/2022 13.0 04/09/2021 11.8 Hematocrit (%) Date Value 02/03/2022 40.4 04/09/2021 35.5 WBC (k/uL) Date Value 02/03/2022 4.73 04/09/2021 4.85 Mixed hyperlipidemia Assessment: c/w statin 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 Assessment: non-compliant with CPAP RLS (restless legs syndrome) Assessment: on rx Type 2 diabetes mellitus, without long-term current use of insulin (HCC) Assessment: controlled on rx Hemoglobin A1C (%) Date Value 02/03/2022 5.7 08/18/2021 6.6 Primary osteoarthritis involving multiple joints Assessment: hx Bilateral TKA Spinal stenosis of lumbar region with neurogenic claudication Assessment: no surgical intervention Fox Activity Status Index: METS: Climb a flight of stairs or walk up a hill (5.50 METs) DASI Score: 5.5 Patient denies any chest pain or undue shortness of breath with the above physical activity. Clinical Frailty Scale: 3. Well, with treated comorbid disease STOP-Bang Score: Snores loudly Has or is being treated for high blood pressure BMI greater than 35 kg/m^2 Patient over 50 years old Has a large neck Denies feeling tired, fatigued, or sleepy during the daytime Has not been observed to stop breathing or choking/gasping during sleep Non-male patient STOP-Bang Score: 5 [id number] Score: Age: >=75 Sex: female CHF history: No Hypertension history: Yes Stroke/TIA/thromboembolism history: No Vascular disease history: Yes Diabetes history: Yes [id number] Score: 6 ARISCAT Score: Age: 51-80 Preoperative SpO2: 91-95% Respiratory infection in the last month: No Preoperative anemia: No Surgical incision: peripheral Duration of surgery: <2 hrs Emergency procedure: No ARISCAT Score: 11 ASA Class: 3 ANESTHESIA FINDINGS: Intubation History: No history of difficult intubation Significant Anesthesia Considerations: none Airway History: No history of difficult airway I - PHYSICAL EVALUATION AIRWAYTracheostomy tube not present Mallampati: III. TM distance: >3 FB. Neck ROM: full ROM without neurological symptoms. Mouth opening: adequate. Short neck: no. Thick neck: yes DENTAL Dental findings: teeth intact. II - ANESTHESIA PLAN ASA Score: 3 Anesthetic Plan: other Anesthetic plan additional comments: *PACC/TCI - anesthesia choice. Informed Consent Anesthetic risks, benefits, alternatives, personnel and consent discussed: yes. Patient / Responsible Alliance Party agrees to proceed: yes Patient / Surrogate agrees to blood products: Yes Prepared for Surgery: optimally prepared for surgery. CONSULTS: Patient does not require consults for optimization at this time Planned Anesthetic: other anesthesia choice The Following Tests/Procedures Have Been Initiated: Orders Placed This Encounter DISCONTD: WHEAT DEXTRIN ORAL Sig: Take by mouth. Gummy Instructions Given to Patient: Instructions located in the after visit summary. Patient given verbal and written preop instructions and voices comprehension and compliance. SIGNATURE: Maria Del Rosario Cooney APRN.CNP PATIENT NAME: Kemal Cantu DATE: April 22, 2022 TIME: 1:02 PM PAGER/CONTACT #: documented in this encounter [facility] 04-21-2022 Miscellaneous Notes NOV 08/17/22 Older MAGDY 02/11/22 Older Patient electronically sent a request for the following prescription(s) Requested Prescriptions Pending Prescriptions Disp Refills glyBURIDE (MICRONASE, DIABETA) 2.5 mg tablet [Pharmacy Med Name: GLYBURIDE 2.5MG TAB (FABRIZIO)] 90 tablet 3 Sig: take 1 tablet by mouth EVERY MORNING WITH BREAKFAST Patient aware RX will be sent to pharmacy. No need to notify patient. Please review. Carly Newsome MA documented in this encounter [facility] 04-04-2022 Miscellaneous Notes Letter requesting cardiac clearance and anticoagulation recommendations faxed to Dr. Fitch, confirmation received. Patient has an appt 04/15/22. Patient needs cardiac surgery clearance form sent to systems admin who is outside the clinic. Please fax clearance form to [phone] ATTN: Dr. Paolo Little documented in this encounter [facility] 04-04-2022 Miscellaneous Notes Called patient verified name and Had some questions regarding UDS testing, procedure explained All questions answered patient was thankful for the call Renetta Rod RN Patient LVM on nurse triage line stating she has a question about upcoming procedure. Kemal Cortes RN April 04, 2022 10:12 AM documented in this encounter [facility] 03-31-2022 Miscellaneous Notes Patient is still not scheduled for pre or post op appointments for scheduled surgery with Dr. Jimenez on 05/06/2022. Routing high priority again to surgery schedulers. Please assist patient in scheduling these appointments. Georgette Bright RN March 31, 2022 2:16 PM Called patient verified name/. Patient wanted to confirm that she was scheduled for surgery on 05/06/2022, and wanted to inform the office that she is scheduled for a stress test next week per recommendation from Dr. Jimenez. Patient scheduled for COLPOPEXY VAGINAL EXTRA-PERITONEAL, ANTERIOR COLPORRHAPHY REPAIR CYSTOCELE WITH OR W/O REPAIR URETHROCELE INCLUDING CYSTOURETHROSCOPY WHEN PERFORMED, POSTERIOR COLPORRHAPHY W/ REPAIR RECTOCELE AND PERINEORRHAPHY, SLING SURGERY FOR STRESS INCONTINENCE W/ TENSION FREE VAG TAPE, CYSTOSCOPY on 05/06/[address] Jimenez at [facility]. Patient is not currently scheduled for any pre or post op appointments. Please assist in scheduling. Routing to surgery schedulers. Georgette Bright RN March 24, 2022 2:59 PM Patient is calling today to discuss an upcoming surgery and what she needs to do to prepare. Please contact the Patient to discuss. Altagracia White Pss documented in this encounter [facility] 03-28-2022 History of Presen t illness Narrative Nutritional Therapy Re-Assessment Nutrition Diagnosis: Overweight/obesity, related to, excess energy intake and physical inactivity, as evidenced by BMI above normative standard for age and gender RECOMMENDED MALNUTRITION DIAGNOSIS: NO MALNUTRITION IDENTIFIED NUTRITION CARE PLAN: Nutrition Intervention 03/28/2022: modify type and amount of food or beverage Continue smaller portions and regular exercise Continue to work on more meals no TV Nutrition Monitoring & Evaluation: weight loss Need for Follow up: 4-6 weeks PROGRESS: Interval History: following as relates to class 3 obesity Body mass index is 42.44 kg/m . Other medical issues DM, CKD, GERD, CAD. Blood sugars good control. Following recommendations well able to lose 7 lbs since visit, total loss since starting 28 lbs/10%Bw loss. Includes regular exercise lower exertion. Nutrition Intervention 02/28/22 Keep snacks to 100-150 calories Have small snack around 100-150 calories Have dinner 5-6, then no eating after dinner Get back to exercise as able All meals and snacks at the dinner table; minimize distractions, no TV while eating. Make meals last at least 20 min, chew each bite of food 20 x per bite.Portion out all foods, never eat out of container. Become more mindful of meal: Enjoy flavors, textures etc. Use hunger/fullness scale. Look into [facility] for social opportunities Actions to implement interventions: Less time in front of TV Recumbant stepper 5 x per week 20-40 min Diet History: Breakfast - coffee, half nutrition bar Snack - yogurt or half a yogurt Lunch - sandwich or soup or left overs or fast food if out ([employer]), water Snack - jello, or half yogurt or fruit Dinner - 6- TV dinner or sandwich, fruit; occ cook ground beef and vegetables Snack - cottage cheese with fruit; Beverages - water; occ soda of out Alcohol - no Vitamins/Supplements - see medlist Activity: Activities of Daily 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 Resting Metabolic Rate: 1756 Malnutrition Screening Significant unintentional weight loss? No Eating less than 75% of usual intake for more than 2 weeks? No Potential Signs of Inflammation: no identifiable sources Nutritional status: Education Materials Provided: None this visit READINESS TO LEARN Cognitive ability: Alert and oriented Motivation to learn: Interested Family support: Unable to assess - Family not present Instruction provided to: Patient Patient learns best by: Individual Instruction Factors affecting learning: None Physical limitations affecting learning: None Likelihood of Adherence: Moderate Referred/Supervised by: Ava/Robert CLEMENTS Billing Type: Re-assess/15 min 2 units SIGNATURE: Radha High RD PATIENT NAME: Kemal Cantu DATE: March 28, 2022 TIME: 1:01 PM documented in this encounter [facility] 03-09-2022 Miscellaneous Notes Patient notified, states taking 0.5 tablet and symptoms have resolved. Instructed patient to monitor her blood sugar numbers especially if symptomatic. Please let patient know she can stop her glyburide but needs to check her fasting blood sugar over the next few weeks to make sure it isn't elevated. Also, she should be checking her blood sugar when she is symptomatic for possible blood sugar. Thank you Екатерина Escalante APRN.CNP Patient phoned to let Clerk Of Works know she decreased the glyburide to half the dose, about 2 weeks ago. It was 2.5 mg, now taking 1.25 mg. States she was not testing her BS, she was getting symptoms: shaky, sweaty. Reports since she started cutting the glyburide in half has not gotten these symptoms. documented in this encounter [facility] 03-08-2022 Miscellaneous Notes Patient called to notify DM that her surgery with Dr. Jimenez is scheduled for 05/06. CHINTAN Li RN documented in this encounter [facility] 02-28-[address] - 02/28/2022 10:03 AM EDT Keep snacks to 100-150 calories Have small snack around 100-150 calories Have dinner 5-6, then no eating after dinner Get back to exercise as able All meals and snacks at the dinner table; minimize distractions, no TV while eating. Make meals last at least 20 min, chew each bite of food 20 x per bite.Portion out all foods, never eat out of container. Become more mindful of meal: Enjoy flavors, textures etc. Use hunger/fullness scale. Look into [facility] for social opportunities documented in this encounter [facility] 02-28-2022 History of Presen t illness Narrative Nutritional Therapy Re-Assessment Nutrition Diagnosis: Overweight/obesity, related to, excess energy intake and physical inactivity, as evidenced by BMI above normative standard for age and gender RECOMMENDED MALNUTRITION DIAGNOSIS: NO MALNUTRITION IDENTIFIED NUTRITION CARE PLAN: Nutrition Intervention 02/28/2022: modify type and amount of food or beverage Keep snacks to 100-150 calories Have small snack around 100-150 calories Have dinner 5-6, then no eating after dinner Get back to exercise as able All meals and snacks at the dinner table; minimize distractions, no TV while eating. Make meals last at least 20 min, chew each bite of food 20 x per bite.Portion out all foods, never eat out of container. Become more mindful of meal: Enjoy flavors, textures etc. Use hunger/fullness scale. Look into [facility] [employer] Nutrition Monitoring & Evaluation: half to one pound weight loss per week Need for Follow up: 4-6 weeks PROGRESS: Interval History: Follwing as relates To class 3 obesity Body mass index is 43.59 kg/m . Has made changes to diet as able . Has limited social network after moving here at start of Pandemic. Note almonds 20 lbs lost since last visit. Had been exercising until back injury, recently started back. Nutrition Intervention 11/08/21 1. All meals and snacks at the dinner table; minimize distractions, no TV while eating. Make meals last at least 20 min, chew each bite of food 20 x per bite.Portion out all foods, never eat out of container. Become more mindful of meal: Enjoy flavors, textures etc. Use hunger/fullness scale. 2. Include lean protein in each meal, include whole grain starches when having . 3. Work toward normal sleep/wake patterns 4. No afternoon snack and no evening snack. 5. Quick meals ideas: sandwich on whole grain bread; veg or broth based soups; frozen meals (300-400 calories); low fat cheese with whole grain crackers and fruit; high fiber cereal with Fairlife milk; eggs and whole grain toast; Czech yogurt and fruit; 6. Continue regular exercise 20-30 min 5 days per week (try seated exercises as available on youtube - hang peters and others) Actions to implement interventions: Smaller portions better choices Diet History: wake by 6 Breakfast - coffee and half nutrition bar Snack - activia yogurt Lunch - noonish-sandwich or soup or left overs; water Snack - no Dinner - 4-frozen dinner (Evol, and others), will occ cook Snack - 7-sandwich or yogurt or fruit Beverages - wate Alcohol - no Vitamins/Supplements - MVI, CoQ10, Fiber gummy, vit C, K, D, Popcorn, peanuts, salad Activity: Activities of Daily Living: varies Additional Activity: Lightly active (Light exercise: planned physical activity 1-3 days/week) Exercise bike was daily for 30 min until January, will be having an addition put on, this hurt hip Started back Exercise before back issue Anthropometrics: Height: Last 1 Encounter Ht Readings: Date: Ht: 02/28/2022 170.2 cm (5' 7) Current weight: Last 1 Encounter Wt Readings: Date: Wt: 02/28/2022 126.2 kg (278 lb 4.8 oz) Body mass index is 43.59 kg/m . Resting Metabolic Rate: 1789 Malnutrition Screening Significant unintentional weight loss? No Eating less than 75% of usual intake for more than 2 weeks? No Potential Signs of Inflammation: no identifiable sources Nutritional status: Education Materials Provided: None this visit READINESS TO LEARN Cognitive ability: Alert and oriented Motivation to learn: Interested Family support: Unable to assess - Family not present Instruction provided to: Patient Patient learns best by: Individual Instruction Factors affecting learning: None Physical limitations affecting learning: None Likelihood of Adherence: Moderate Referred/Supervised by: Sammi/Sammi CLEMENTS Billing Type: Re-assess/15 min 3 units SIGNATURE: Radha High RD PATIENT NAME: Kemal Cantu DATE: February 28, 2022 TIME: 9:32 AM documented in this encounter [facility] 02-25-2022 History of Presen t illness Narrative Radiology Service Progress Note PATIENT NAME: Kemal Cantu DATE OF SERVICE: February 25, 2022 TIME: 8:49 AM PATIENT IDENTITY VERIFICATION COMPLETED USING TWO (2) IDENTIFIERS: Name and Date of confirmed by patient verbally. FALL SCREENING: Has the patient had 2 falls in the last year or 1 fall with injury or currently using an Ambulatory Assistive Device (Walker, Cane, Wheelchair, Crutches, etc.)? No PATIENT GENDER DATA: Female. status: : No status: NO. PATIENT RELEVANT IMPLANT DATA REVIEWED: Not Applicable RADIOLOGY DEPARTMENT: General X-ray: Exam(s) Completed: Lower Extremity X-Ray(s): Feet, Bilateral and Wt. Bearing PERIPHERAL IV DATA: Not applicable SIGNED BY: RT Porter(R) February 25, 2022 8:49 AM documented in this encounter [facility] 02-21-2022 Miscellaneous Notes Patient has been identified by name and date of : Yes Patient phones for refill(s): Pending Prescriptions Disp Refills FLUTICASONE PROPIONATE 50 MCG/ACTUATION NASAL SPRAY,SUSPENSION 16 g 2 Sig: Use 2 Sprays in each nostril once daily. JAJA: No Date of last office visit in primary care: 02/11/22 Last 2 Encounter Wt Readings: Date: Wt: 02/11/2022 126.6 kg (279 lb) 12/08/2021 131.5 kg (290 lb) Previous labs/tests for medication: Not applicable Please advise. Thank you. Beatriz Ballard LPN Patient has been identified by name and date of : Yes Pending Prescriptions Disp Refills FLUTICASONE PROPIONATE 50 MCG/ACTUATION NASAL SPRAY,SUSPENSION 16 g 2 Sig: Use 2 Sprays in each nostril once daily. JAJA: No RX INSTRUCTIONS: Patient requesting a call when RX is approved and sent to the pharmacy. Please call patient at: [phone]. Becky Feng documented in this encounter [facility] 02-01-2022 Miscellaneous Notes Called and left a detailed voicemail notifying patient of providers message. Hospital phone number was left in case patient had any questions. Nadia Bourgeois, RN I ordered the thyroid and lipids Patient is scheduled this 02/03 for labs and is requesting Thyroid and lipid panel and any other orders. documented in this encounter [facility] 01-31-2022 History of Presen t illness Narrative INSIGHT CDM ESCALATION Provider Action/FYI: Flatwork Ironer Questionnaire Triggered call Pt noted on questionnaire feel dehydrated for any reason Spk with Pt, she reports was drinking 6-7, 12 oz bottles of sparkling water, her flavor was discontinued and she has been busy moving furniture so has not been drinking as much water. Urine is medium color, instructed color should be light yellow / straw color, she verbalized understanding. Pt has temp of 99.1, denies feeling ill, has a white spot in the back of her throat, denies a sore throat or difficulty swallowing, Pt noted will schedule an PCP / MICROGRINDER OPERATOR Appt to have it evaluated. Denies needs or concern, appreciated the call Message received via: InSight - Yes contact made with patient ACTION TAKEN: Based on title agent, the following disposition is advised: SYMPTOMS PRESENT NOT SEVERE: No action required - Continue outreach / Phone Call Hedy Owens RN January 31, 2022 9:44 AM documented in this encounter [facility] 01-24-2022 Miscellaneous Notes Patient has been identified by name and date of : Yes Patient phones for refill(s): Pending Prescriptions Disp Refills BUPROPION HCL SR 150 MG TABLET,12 HR SUSTAINED-RELEASE 90 tablet 1 Sig: Take 1 tablet by mouth once daily. JAJA: No Date of last office visit in primary care: 11/01/21 Last 2 Encounter Wt Readings: Date: Wt: 12/08/2021 131.5 kg (290 lb) 11/30/2021 132 kg (291 lb) Previous labs/tests for medication: Not applicable Please advise. Thank you. Beatriz Ballard LPN Patient has been identified by name and date of : Yes Pending Prescriptions Disp Refills BUPROPION HCL SR 150 MG TABLET,12 HR SUSTAINED-RELEASE 90 tablet 1 Sig: Take 1 tablet by mouth once daily. JAJA: No RX INSTRUCTIONS: Patient aware RX will be sent to pharmacy. No need to notify patient. Jessica Bryson Pss documented in this encounter [facility] 01-03-2022 History of Presen t illness Narrative Radiology Service Progress Note PATIENT NAME: Kemal Cantu DATE OF SERVICE: January 03, 2022 TIME: 3:33 PM PATIENT IDENTITY VERIFICATION COMPLETED USING TWO (2) IDENTIFIERS: Name and Date of confirmed by patient verbally. FALL SCREENING: Has the patient had 2 falls in the last year or 1 fall with injury or currently using an Ambulatory Assistive Device (Walker, Cane, Wheelchair, Crutches, etc.)? No PATIENT GENDER DATA: Female. status: : No status: NO. PATIENT RELEVANT IMPLANT DATA REVIEWED: Yes RADIOLOGY DEPARTMENT: General X-ray: Exam(s) Completed: Lower Extremity X-Ray(s): Knee, AP / Lat / Tunne / Merchant Bilateral and Wt. Bearing PERIPHERAL IV DATA: Not applicable SIGNED BY: RT Gus(R) January 03, 2022 3:33 PM documented in this encounter [facility] 01-03-2022 History of Presen t illness Narrative Lety Haywood PA-C Department of Orthopaedics Orthopaedics [address] [facility] [address] Dept: [phone] Dept January 03, 2022 CHIEF COMPLAINT: Established Patient and Pain of the Right Hip Ms. Kemal Cantu is a 76 year old female she presents with chronic right hip pain, pain is a 4 out of 10 aching, sharpness that is in the groin and radiates to the buttock and lateral hip. She takes intermittent ibuprofen as well as Tylenol but it is not very helpful. We did put her on an oral steroid taper last year and she says that it was very helpful. She has some degenerative disc disease in her lumbar spine, she saw a spine provider and has been working on her posture which has been helpful. The patient is a diabetic, her last hemoglobin A1c was 6.6 this spring. She has been working on weight loss, she tells me that she has lost 10 pounds. She is scheduled to see a dietitian to further discuss her diet. She is status post bilateral total knee with a provider in [place], she has some concerns that she has not had x-rays of her knees in some time. ASSESSMENT: M25.551 Right hip pain (primary encounter diagnosis) M16.11 Primary osteoarthritis of right hip Z96.653 Status post total bilateral knee replacement PLAN: She got such a good response with the oral prednisone taper, we discussed repeating the prednisone taper at this time. Certainly if she continues to have right hip pain we can try an intra-articular hip injection. We discussed that the steroid taper could cause a temporary bump in her blood sugars. We will get some x-rays of her knees just to evaluate her replacements, we [facility] Ms. Kemal Cantu was advised as to contrast therapies and/or to take analgesics/anti-inflammatories as needed and all contraindications were reviewed. OBJECTIVE: Ms. Kemal Cantu is a pleasant 76 year old in no apparent distress. Gen:There were no vitals taken for this visit. nl development, obese, no deformities ENT: Normocephalic, normal hearing, moist mucosa CV: Pulses:DP/PT= 2+ and symmetric, capillary refill < 2 secs, no peripheral edema/varicosities Skin: no rash, bruising or lesions. Good turgor. Psych: cooperative and appropriate, alert and oriented x 3, good mood and affect. Musculoskeletal: HIP EXAM: Right: ROM: Extension: full extension Flexion: 100 degrees Internal Rotation: 25 degrees External Rotation: 35 degrees Abduction: 30 degrees Adduction: 25 degrees Strength: Pain with resisted hip flexion Palpation: diffuse tenderness to palpation. Log roll: non-painful. Straight leg raise: Negative Neurovascular Status: Sensation Intact, Moves foot and ankle up & down and 2+ dorsalis pedis Imaging: IMPRESSION: 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 [place]: CHAR Transcribe Date/Time: Apr 13 2021 11:15A Dictated by : GT TAVAREZ MD This examination was interpreted and the report reviewed and electronically signed by: GT TAVAREZ MD on Apr 13 2021 11:18AM EST Results-Findings * * *Final Report* * * DATE OF EXAM: Apr 13 2021 11:12AM WOX [id number] - XR HIP 3V PELV+ AP/LAT RT / PROCEDURE REASON: Right hip pain * * * * Physician Interpretation * * * * EXAMINATION: XR HIP 3V PELV+ AP/LAT RT CLINICAL HISTORY: Diffuse right hip pain increasing over time without injury Right hip pain Technique: XR HIP 3V PELV+ AP/LAT RT -- RIGHT hip and pelvis with 3 views on 3 images Comparison: None RESULT: No acute fracture or dislocation. There is marked narrowing of the RIGHT hip joint space with RIGHT hip joint degenerative spurring. Intact SI joints and pubic symphysis. Narrowing of the LEFT hip joint space with mild LEFT acetabular spurring is also noted. Phlebolith overlie the pelvis. Vascular calcifications. Degenerative changes are evident in the included portions of the lower lumbar spine. Supporting Subjective Information Below: Past Surgical History: PAST SURGICAL HISTORY Procedure Laterality Date CATARACT EXTRACTION W/ INTRAOCULAR LENS IMPLANT HX Bilateral 2017 COLONOSCOPY FLX DX W/COLLJ SPEC WHEN PFRMD 06/21/2021 CORNEAL TISSUE DSAEK/DMEK Left 09/30/2019 Dr. Clark ENDOTHELIAL KERATOPLASTY(DMEK) Right 04/17/2019 ENDOTHELIAL KERATOPLASTY/DSAEK Right 03/18/2019 ESOPHAGOGASTRODUODENOSCOPY TRANSORAL DIAGNOSTIC 06/21/2021 PAST SURGICAL HISTORY OF 1972 parathyroid adenoma surgery PAST SURGICAL HISTORY OF 1988 hysterectomy with prolapsed bladder repair PAST SURGICAL HISTORY OF 1992 abdominoplasty PAST SURGICAL HISTORY OF 1993 breast reduction PAST SURGICAL HISTORY OF 1979 deviated septum repair PAST SURGICAL HISTORY OF 1965 D&C after miscarriage PAST SURGICAL HISTORY OF 2013 Total right knee repalcement PAST SURGICAL HISTORY OF 11/2013 total left knee replacement PAST SURGICAL HISTORY OF 2015 rectocele repair with vaginal mesh PAST SURGICAL HISTORY OF 11/01/2015 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 pramipexole (MIRAPEX) 0.125 mg tablet Take 2 tablets by mouth four times daily. HORIZANT 300 mg TbER Take 3 tablets by mouth once daily. montelukast (SINGULAIR) 10 mg tablet take 1 tablet by mouth at bedtime atorvastatin (LIPITOR) 10 mg tablet Take 1 tablet by mouth once daily. ubidecarenone (COENZYME Q10) 100 mg tab Take 200 mg by mouth once daily. simethicone (GAS-X ORAL) Take 125 mg by mouth twice daily. multivit,thx,calcium,iron,mins (MULTIVITAMIN AND MINERAL ORAL) Take by mouth. vitamin K2 100 mcg cap Take 100 mcg by mouth. Zinc 50 mg tab Take 50 mg by mouth. amLODIPine (NORVASC) 2.5 mg tablet Take 2.5 mg by mouth once daily. fluticasone (FLONASE) 50 mcg/actuation nasal spray Use 2 Sprays in each nostril once daily. conjugated estrogens (PREMARIN) vaginal cream Use 0.5 g vaginally two times a week. levothyroxine (SYNTHROID) 75 mcg tablet take 1 tablet by mouth once daily ON AN EMPTY STOMACH buPROPion SR (ZYBAN SR; WELLBUTRIN SR) 150 mg 12 hr tablet Take 1 tablet by mouth once daily. semaglutide (OZEMPIC) 1 mg/dose (2 mg/1.5 mL) pen injector Inject 1 mg subcutaneously one time a week. valsartan (DIOVAN) 320 mg tablet Take 1 tablet by mouth once daily. metoprolol tartrate, short acting, (LOPRESSOR) 50 mg tablet Take 50 mg by mouth twice daily. Bifidobacterium infantis (ALIGN ORAL) Take 1 tablet by mouth once daily. LOW-DOSE ASPIRIN ORAL Take 81 mg by mouth once daily. ticagrelor (BRILINTA) 90 mg tablet Take 90 mg by mouth twice daily. glyBURIDE (DIABETA) 2.5 mg tablet Take 1 tablet by mouth daily with breakfast. blood sugar diagnostic ([employer] ULTRA TEST) test strip Test blood sugar once a day DX: E11.9 metFORMIN (GLUCOPHAGE) 1,000 mg tablet Take 1 tablet by mouth daily with breakfast. ketoconazole (NIZORAL) 2 % cream Apply to affected area once daily. Used for fungal skin fold rashes diclofenac sodium (VOLTAREN) 1 % topical gel Apply 2 g to affected area four times daily. amoxicillin (POLYMOX, AMOXIL) 500 mg capsule Take 500 mg by mouth. Take 4 capsules 1 hour before dental procedures. ascorbic acid, vitamin C, (VITAMIN C) 250 mg tablet Take 250 mg by mouth once daily. ferrous sulfate EC 324 mg (65 mg iron) TbEC Take 324 mg by mouth once daily. cholecalciferol (VITAMIN D-3) 2,000 unit tablet Take 2,000 Units by mouth once daily. colestipol (COLESTID) 1 gram tablet take 1 tablet by mouth twice a day (Patient not taking: Reported on 01/03/2022) predniSONE (DELTASONE) 10 mg tablet 6 tabs po day 1, then 5 tabs day 2, 4 tabs day 3, 3 tabs day 4, 2 tabs day 5, 1 tab day 6. L.acid/B.animalis,bifidum/FOS (PROBIOTIC COMPLEX ORAL) Take by mouth. (Patient not taking: Reported on 11/30/2021 ) dicyclomine (BENTYL) 10 mg capsule take 1 capsule by mouth four times a day before meals and at bedtime (Patient not taking: Reported on 01/03/2022) Wheat Dextrin 3 gram/3.5 gram Take by mouth as needed. (Patient not taking: Reported on 01/03/2022 ) No current facility-administered medications for this visit. Allergies: Bacitracin (Bulk), Codeine, Dust Mites, Gentamicin, Mold, Sulfa (Sulfonamide Antibiotics), Sulfabenzamide, and Tree Pollen-Red Maple ROS: General (negative for fatigue, malaise, weight loss/gain) HEENT (negative for headache, earache, recent vision changes, sinus pain, sore throat) Respiratory (no recent shortness of breath, hemoptysis) CV (negative for chest tightness, palpitations) Musculoskeletal (see HPI) Psych (no depression, anxiety) This note was partially generated using [email or web address] voice recognition system, and there may be some incorrect words, spellings, and punctuation that were not noted in checking the note before saving. Lety Haywood PA-C Patient presents with: Right Hip - Established Patient, Pain AMB ROOMING INTAKE FLOWSHEET DATA Risk Screening Do you have concerns about personal safety or safety in the home?: No Pain Pain Level: 4 Pain Location: Hip-Right Description: Aching, Sharp Duration Amount of Time: 1 Duration Units: Years Frequency: Continuous Pt. states pain is getting worse in gron, buttock and lateral right hip. She takes rare ibuprofen or tylenol, but without much relief. Does not check FBS. documented in this encounter [facility] 01-03-2022 Miscellaneous Notes Pharmacy calls in requesting the following refill(s): Pending Prescriptions Disp Refills COLESTIPOL 1 GRAM TABLET 60 tablet 5 Sig: take 1 tablet by mouth twice a day JAJA: Yes documented in this encounter [facility] 12-28-2021 Miscellaneous Notes Pt. would like to follow-up with Lety for right hip pain. She would like injection. Explained that hip injections are usually done in radiology. She has had back films and seen spine as ordered by Lety. Appt. made with Lety to discuss. documented in this encounter [facility] 12-16-2021 Miscellaneous Notes Noted. She does not need to come back unless she wants to retry pessary. Sometimes when we place a pessary incontinence can get worse as the angle and support of bladder changes. Patient seen in office on 12/08/21 for pessary fitting. Patient calling to report that her first bowl movement the pessary came out of position and she had to push it back in. Having trouble emptying her bladder completely and also dribbling urine. Had a bowel movement this morning and the pessary came out. Declined wanting an appointment for another fitting. Has an appointment in [place] in January and will discuss surgery. Only need to call patient back if provider has more information to relay to patient. Taniya Li RN documented in this encounter [facility] 12-15-2021 Miscellaneous Notes documented in this encounter [facility] 12-08-2021 Miscellaneous Notes Called patient discussed symptoms with cholestyramine. She reports taking medication for 3 days developed abdominal pain. She reports having a episode of vomiting. She did not notice any improvement with the consistency of bowels. Patient reports that she gags very easily and taking the cholestyramine was difficult. Discussed with patient will start on colestipol twice daily but to start slow by taking every other day and will slowly increase depending on her symptoms. She will reach out to me next week to let me know how she is doing on medication Bri Romero APRN.BILL documented in this encounter [facility] 12-03-2021 Miscellaneous Notes December 03, 2021 PID: [id number] Kemal Cantu [address] [place] [address] Dear Ms. Cantu, We are pleased to inform you that the results of your recent breast imaging exam on 12/03/2021 are normal. Early detection of cancer is very important. We also understand recommendations regarding breast cancer screening are controversial. Please discuss with your primary care provider which strategy is best for you and whether a mammogram is right for you. Your imaging studies and report will be kept on file at [facility] as part of your permanent medical record and are available for your continuing care. Thank you for allowing us to help in meeting your health care needs. Sincerely, Dr. Rubi Interpreting Radiologist [facility] (Normal over 40) documented in this encounter [facility] 11-30-2021 Instructions Bri Romero APRN.MICROGRINDER OPERATOR - 11/30/2021 1:39 PM EDT Images from the original note were not included. Continue omeprazole 40mg Continue Gas- X Stop Dicyclomine Continue dietary fiber Start questran 1 pack- first week every other day for the first week and then message me how you are doing - Improving Your Health with Fiber This guide provides basic information to help you start increasing dietary fiber in your diet. These are general guidelines that may be tailored to meet your needs. Fiber is an important dietary substance to help support your health. Making changes in your current eating habits will help you eat more healthfully. Most fiber-containing foods are also good sources of vitamins, minerals, and antioxidants, which offer many health benefits. A registered dietitian can provide in-depth nutrition education to help you develop a personal action plan. What is fiber? Fiber is the structural part of plant foods--such as fruits, vegetables, and grains--that our bodies cannot digest or break down. There are two kinds of fiber: soluble and insoluble. Soluble fiber: dissolves in water to form a gummy gel. It can slow down the passage of food from the stomach to the intestine. Examples: dried beans, oats, barley, banana, potatoes, and soft parts of apples and pears Insoluble fiber: often referred to as roughage because it does not dissolve in water. It holds onto water, which helps produce softer, bulkier stools to help regulate bowel movements. Examples: whole bran, whole grain products, nuts, corn, carrots, grapes, berries, and peels of apples and pears What other things does fiber do? Research has shown that a diet rich in fiber is associated with many health benefits, including the followin. Lowers cholesterol--Soluble fiber has been shown to lower cholesterol by binding to bile (composed of cholesterol) and taking it out of the body. This may help reduce the risk of heart disease. 2. Better regulates blood sugar levels--A high-fiber meal slows down the digestion of food into the intestines, which may help to keep blood sugars from rising rapidly. 3. Weight control--A high-fiber diet may help keep you donato longer, which prevents overeating and hunger between meals. 4. May prevent intestinal cancer--Insoluble fiber increases the bulk and speed of food moving through the intestinal tract, which reduces time for harmful substances to build up. 5. Constipation--Constipation can often be relieved by increasing the fiber or roughage in your diet. Fiber works to help regulate bowel movements by pulling water into the colon to produce softer, bulkier stools. This action helps to promote better regularity. How much fiber should I eat? The recommendation is to consume about 20-35 grams of total fiber per day, with 10-15 grams from soluble fiber. This can be accomplished by choosing 6 ounces of grains (3 or more ounces from whole grains), 2 cups of vegetables, and 2 cups of fruit per day (based on a 2,000 calorie/day pattern). Note: Eating a high-fiber diet may interfere with the absorption and effectiveness of some medications. Speak to your doctor about which medications to take with caution and when to take them. Fiber also binds with certain nutrients and carries them out of the body. To avoid this, aim for the recommended 20-35 grams of fiber per day. Some studies indicate that up to 50 grams of dietary fiber may help control blood sugars for people with diabetes. When eating a high-fiber diet, be sure to drink at least eight glasses of fluid each day. Tips for increasing dietary fiber in your diet: Add fiber to your diet slowly. Too much fiber all at once may cause cramping, bloating, and constipation. When adding fiber to your diet, be sure to increase fluids (at least 64 ounces per day) to prevent constipation. Buy bread with 2-4 grams of dietary fiber per slice. Buy cereals with at least 5 grams of dietary fiber per serving. Choose cereals with a whole grain such as whole wheat or whole grain rolled oats. Choose raw fruits and vegetables in place of juice. Choose products that have a whole grain listed as the first ingredient, not enriched flour. Whole wheat flour is a whole grain--wheat flour is not. Try alternative fiber choices such as whole buckwheat, whole wheat couscous, quinoa, and bulgur. Popcorn is a whole grain. Serve it low-fat without butter for a healthier snack choice. Try whole wheat bread and whole wheat pastas. Sprinkle bran in soups, cereals, baked products, spaghetti sauce, ground meat, and casseroles. Bran also mixes well with orange juice. Use dried peas, beans, and legumes in main dishes, salads, or side dishes such as rice or pasta. Eat the skins of raw fruits and vegetables. Add dried fruit to yogurt, cereal, rice, and muffins. Try brown rice and whole grain pastas. Choose crackers with a whole grain listed as the first ingredient. Look for whole grain rye and wheat crackers. How to read a food label Food labels are standardized by the U.[place]. government's National Labeling and Education Act (NLEA). Nutrition labels and an ingredient list are required on most foods, so that you can make the best selection for a healthy lifestyle. Review the food label. Determine the total amount of fiber in this product or ask your dietitian or health care provider to show you how to read food labels and apply the information to your personal needs. In order for a product to be labeled high fiber, it must contain 5 grams or more of dietary fiber per serving. Fiber supplements Fiber supplements may be an option if you are not able to get enough fiber from your diet. Fiber supplements can be used to normalize both constipation and diarrhea. Check with your doctor before starting any kind of supplement. Read labels for fiber carefully. Drink at least 8 ounces of liquids with your supplement. Taking some fiber supplements without adequate liquids may cause the fiber to swell and may cause choking. Some fiber supplements to consider are Benefiber (hydrolyzed guar gum-soluble fiber), Metamucil (psyllium), Konsyl (psyllium), Citrucel (methylcellulose), Fibercon (calcium polycarbophil), and Fiberall (multiple sources of fiber). Psyllium husk and guar gum are soluble fibers. Consider keeping a food journal and tracking how much fiber you eat in a typical day. Use the fiber content chart in this handout as a guide to meeting your high fiber goal or check with www.NAL.usda.gov/fnic for additional information on the dietary fiber content of food. Food Category Food Serving Size Total Fiber (grams) Soluble Fiber (grams) Starches, Grains, Starchy vegetables Breads: Bagel-whole wheat Light white/wheat Salima-Whole wheat Pumpernickel Whole wheat [place] 3 1/2 inches 2 slices 7 inches slice slice slice 3 1 4 3 2 2 1 trace 1 1 trace 1 Cereals: Bran Flakes Cheerios Oatmeal Fiber One All Bran Kashi Heart to Heart 3/4 cup 1 1/4 cup 1 cup cooked 1/2 cup 2/3 cup 3/4 cup 5 4 4 14 13 5 trace 1 2 1 1 1 Grains: Barley Brown rice Pasta-whole wheat 1/2 cup cooked 1/2 cup 1/2 cup cooked 4 2 3 1 trace 1 Legumes and starchy vegetables: Garbanzo beans Kidney beans Lentils Potato (with skin) Potatoes, sweet Squash (winter) Green peas, cooked [place] beans [place], cooked 1/2 cup 1/2 cup 1/2 cup 1 medium 1/2 cup 1/2 cup 1/2 cup 1/2 cup 1/2 cup 4 6 5 3 4 3 4 7 2 1 3 1 1 2 2 1 3 trace Nuts and Seeds Almonds Peanuts [place] seeds Walnuts 1/4 cup 1/4 cup 1/4 cup 1/4 cup 3 3 3 2 1 1 1 trace Fruits Apple with skin Banana Blueberries Grapefruit [place] Pear with skin Prunes Strawberries 1 medium 1 medium 1 cup 1/2 cup 1 medium 1 medium 3 1 cup 3 2 2 1 3 4 2 4 1 1 trace 1 2 2 1 1 Vegetables, non-starchy Broccoli [place] sprouts Cabbage-green Carrot Cauliflower Green beans Kale Spinach Squash (zucchini) 1/2 cup 1/2 cup 1 cup, fresh 1/2 cup cooked 1/2 cup cooked 1/2 cup 1/2 cup 1/2 cup 1/2 cup 3 4 2 2 1 2 3 2 1 1 2 1 1 trace 1 1 1 1 Copyright 3081-7181 The [facility]. All rights reserved. This information is provided by the [facility] and is not intended to replace the medical advice of your doctor or health care provider. Please consult your health care provider for advice about a specific medical condition. For additional health information, please contact the [facility] at the [facility] or toll-free extension [phone]. If you prefer, you may visit [email or web address] or [email or web address]. This document was last reviewed on: 2009 index#[id number] documented in this encounter [facility] 11-30-2021 History of Presen t illness Narrative CHIEF COMPLAINT: Patient presents with: Medication Follow-up The patient was seen by 06/21/2021 for upper endoscopy and colonoscopy for symptoms of Clinically significant diarrhea of unexplained origin . The procedures were performed with MAC sedation. The procedure report has been reviewed and findings as follows: Impression: - Preparation of the colon was fair. - One diminutive polyp at the hepatic flexure, removed with a cold biopsy forceps. Resected and retrieved. - Diverticulosis in the entire examined colon. - The entire examined colon is normal. Biopsied. - The distal rectum and anal verge are normal on retroflexion view. Impression: - Normal examined jejunum. Biopsied. - Normal examined duodenum. - Gastritis. Biopsied. - Non-severe reflux esophagitis. Biopsied. - Normal middle third of esophagus. Biopsied. - Normal upper third of esophagus. FINAL DIAGNOSIS 1. Esophagus, distal, biopsy (A) - Squamous mucosa with mild reactive epithelial changes. 2. Esophagus, mid, biopsy (B) - Squamous epithelium with no diagnostic abnormality. 3. Stomach, antrum, biopsy (C) - Reactive gastropathy, gastric antral mucosa. - Negative for Helicobacter pylori organisms. 4. Jejunum, biopsy (D) - Superficial fragments of small bowel mucosa with no diagnostic abnormality. 5. Colon, hepatic flexure polyp, biopsy (D) - Tubular adenoma. 6. Colon, random, biopsy (F) - Colonic mucosa with no diagnostic abnormality. - Negative for microscopic colitis. RADHA Cantu is a 76 year old female here today for ongoing GERD symptoms Since double the omeprazole her symptoms have Medications Gas-X- twice a day morning and diner Probiotic- once daily Dicyclomine 10 mg taking three times a day - Omeprazole 40 mg twice daily Fiber- she is now eating more fiber and stopped the fiber supplement Famotidine 40 mg at bedtime- no longer taking She reports she was at the spine doctor recently- she Reports her posture is terrible and was walking and sit leaning over all the muscles in the back go to 3 points in her back - she reports she has tried sitting up and walking upright has improved her symptoms of choking -patient reports at this time she is taking omeprazole 40 mg once daily and symptoms of heartburn, acid reflux have resolved. She reports after she eats will develop gas with bloating and sometimes mushy diarrhea- She reports she is having 5-6 BM daily and reports she is evacuates what she can then 1 hour later then she will finish - She reports she is no longer taking fiber and instead she is eating dietary fiber. She reports the frequency of stools has improved from up to 8 times a day to now 5-6 bowel movements daily. She states she no longer is worried about leaving the house and she can even eat out without a worry. 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 HORIZANT 300 mg TbER Take 3 tablets by mouth once daily. montelukast (SINGULAIR) 10 mg tablet take 1 tablet by mouth at bedtime atorvastatin (LIPITOR) 10 mg tablet Take 1 tablet by mouth once daily. ubidecarenone (COENZYME Q10) 100 mg tab Take 200 mg by mouth once daily. simethicone (GAS-X ORAL) Take 125 mg by mouth twice daily. multivit,thx,calcium,iron,mins (MULTIVITAMIN AND MINERAL ORAL) Take by mouth. vitamin K2 100 mcg cap Take 100 mcg by mouth. Zinc 50 mg tab Take 50 mg by mouth. amLODIPine (NORVASC) 2.5 mg tablet Take 2.5 mg by mouth once daily. dicyclomine (BENTYL) 10 mg capsule take 1 capsule by mouth four times a day before meals and at bedtime fluticasone (FLONASE) 50 mcg/actuation nasal spray Use 2 Sprays in each nostril once daily. conjugated estrogens (PREMARIN) vaginal cream Use 0.5 g vaginally two times a week. levothyroxine (SYNTHROID) 75 mcg tablet take 1 tablet by mouth once daily ON AN EMPTY STOMACH omeprazole (PRILOSEC) 40 mg capsule Take 1 capsule by mouth twice daily. buPROPion SR (ZYBAN SR; WELLBUTRIN SR) 150 mg 12 hr tablet Take 1 tablet by mouth once daily. semaglutide (OZEMPIC) 1 mg/dose (2 mg/1.5 mL) pen injector Inject 1 mg subcutaneously one time a week. valsartan (DIOVAN) 320 mg tablet Take 1 tablet by mouth once daily. metoprolol tartrate, short acting, (LOPRESSOR) 50 mg tablet Take 50 mg by mouth twice daily. Wheat Dextrin 3 gram/3.5 gram Take by mouth as needed. Bifidobacterium infantis (ALIGN ORAL) Take 1 tablet by mouth once daily. LOW-DOSE ASPIRIN ORAL Take 81 mg by mouth once daily. ticagrelor (BRILINTA) 90 mg tablet Take 90 mg by mouth twice daily. glyBURIDE (DIABETA) 2.5 mg tablet Take 1 tablet by mouth daily with breakfast. metFORMIN (GLUCOPHAGE) 1,000 mg tablet Take 1 tablet by mouth daily with breakfast. LUMIGAN 0.01 % drop ophthalmic drops instill 1 drop into both eyes once daily at bedtime ketoconazole (NIZORAL) 2 % cream Apply to affected area once daily. Used for fungal skin fold rashes diclofenac sodium (VOLTAREN) 1 % topical gel Apply 2 g to affected area four times daily. amoxicillin (POLYMOX, AMOXIL) 500 mg capsule Take 500 mg by mouth. Take 4 capsules 1 hour before dental procedures. ascorbic acid, vitamin C, (VITAMIN C) 250 mg tablet Take 250 mg by mouth once daily. ferrous sulfate EC 324 mg (65 mg iron) TbEC Take 324 mg by mouth once daily. cholecalciferol (VITAMIN D-3) 2,000 unit tablet Take 2,000 Units by mouth once daily. L.acid/B.animalis,bifidum/FOS (PROBIOTIC COMPLEX ORAL) Take by mouth. (Patient not taking: Reported on 11/30/2021 ) blood sugar diagnostic (ONETOUCH ULTRA TEST) test strip Test blood sugar once a day DX: E11.9 No current facility-administered medications for this visit. ALLERGIES Allergen Reactions Bacitracin (Bulk) Hives Codeine Unknown Dust Mites Other: See Comments Gentamicin Swelling redness of eye watery and itching Mold Unknown Sulfa (Sulfonamide * Other: See Comments redness Sulfabenzamide Hives Tree Pollen-Red Map* Shortness of Breath Social History Tobacco Use Smoking status: Never Smoker Smokeless tobacco: Never Used Tobacco comment: Second hand smoke (mother) Vaping Use Vaping Use: Never used Substance Use Topics Alcohol use: Yes Alcohol/week: 1.0 standard drink Types: 1 Glasses of wine per week Comment: 3-4 glasses of wine per year Drug use: Never PAST MEDICAL HISTORY Diagnosis Date Diabetes mellitus (HCC) Fibromyalgia Fuchs' corneal dystrophy Gastroesophageal reflux disease Glaucoma HTN (hypertension) Hypothyroidism Irritable bowel syndrome Migraines MAURICE (obstructive sleep apnea) does not use c-pap Osteoarthritis PONV (postoperative nausea and vomiting) Pseudophakia PTSD (post-traumatic stress disorder) Restless leg syndrome Sleep apnea in adult TMJ (dislocation of temporomandibular joint) PAST SURGICAL HISTORY Procedure Laterality Date CATARACT EXTRACTION W/ INTRAOCULAR LENS IMPLANT HX Bilateral 2016 COLONOSCOPY FLX DX W/COLLJ SPEC WHEN PFRMD 06/21/2021 CORNEAL TISSUE DSAEK/DMEK Left 09/30/2019 Dr. Clark ENDOTHELIAL KERATOPLASTY(DMEK) Right 04/17/2019 ENDOTHELIAL KERATOPLASTY/DSAEK Right 03/18/2019 ESOPHAGOGASTRODUODENOSCOPY TRANSORAL DIAGNOSTIC 06/21/2021 PAST SURGICAL HISTORY OF 1972 parathyroid adenoma surgery PAST SURGICAL HISTORY OF 1988 hysterectomy with prolapsed bladder repair PAST SURGICAL HISTORY OF 1992 abdominoplasty PAST SURGICAL HISTORY OF 1993 breast reduction PAST SURGICAL HISTORY OF 1979 deviated septum repair PAST SURGICAL HISTORY OF 1965 D&C after miscarriage PAST SURGICAL HISTORY OF 2013 Total right knee repalcement PAST SURGICAL HISTORY OF 11/2013 total left knee replacement PAST SURGICAL HISTORY OF 2015 rectocele repair with vaginal mesh PAST SURGICAL HISTORY OF 11/01/2015 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 PHYSICAL EXAM BP 120/64 Pulse 64 Ht 5' 6.969 (1.70m) Wt 291 lb (132.0kg) SpO2 95% BMI 45.62 kg/(m^2). ASSESSMENT: Diarrhea, unspecified type (primary encounter diagnosis) Dysphagia, unspecified type PLAN: Assessment/Plan (R19.7) Diarrhea, unspecified type (primary encounter diagnosis) (R13.10) Dysphagia, unspecified type 1. Diarrhea, unspecified type -Patient states still having frequent bowel movements 5-6 times daily. She reports this has improved from going 8 times daily. Denies black stool. At times has blood in toilet reports this is due to her hemorrhoids however she is unable to reach to place medication where it needs to be. Patient's most recent colonoscopy random biopsy negative for microscopic colitis. Recommend cholestyramine 4 g every other day for the first week, told patient to please reach out through [facility] or call for update. - She reports she is taking bentyl three times a day she does not see a improvement - advised to stop medication 2. Dysphagia, unspecified type -Patient reports symptoms of heartburn/acid reflux has resolved since doubling up on omeprazole 40 mg once daily. She reports she was still having symptoms with choking on solids and liquids. Recently been to the spine doctor and after further evaluation he concluded patient's posture is poor. With improvement of her posture she reports she is no longer choking. - She reports she is taking bentyl three times a day she does not see a improvement - advised to stop medication -Continue omeprazole 40mg Continue Gas- X as needed Stop Dicyclomine Continue dietary fiber Follow up in office 3 months/PRN. Recommended to please call office/go to ER if fever, chills, chest pain, SOB, diarrhea, nausea, emesis, worsening abdominal pain, dehydration occurs I spent 30 minutes in the visit, with more than 50% of the total [id number] time of the visit in counseling / coordination of care. I have confirmed and edited as necessary, the PFSH and ROS obtained by others. Bri Romero APRN.CNP November 30, 2021 3:03 PM documented in this encounter [facility] 11-30-2021 Miscellaneous Notes Previous request was denied. Requesting again. If there is a problem please call pt. Patient has been identified by name and date of : Yes Patient phones for refill(s): Pending Prescriptions Disp Refills OMEPRAZOLE 40 MG CAPSULE,DELAYED RELEASE 180 capsule 0 Sig: Take 1 capsule by mouth twice daily. JAJA: No Date of last office visit in primary care: 11/01/21 next apt 02/11/22 Last 2 Encounter Wt Readings: Date: Wt: 11/29/2021 132.5 kg (292 lb) 11/17/2021 132.8 kg (292 lb 12.8 oz) Previous labs/tests for medication: Not applicable Please advise. Thank you. Renee Dominguez LPN documented in this encounter [facility] 11-29-2021 History of Presen t illness Narrative NEW PATIENT (CONSULT) HISTORY AND PHYSICAL EXAM PRIMARY CARE PHYSICIAN: Helen Chapa MD REASON FOR CONSULT: RLS REFERRING PHYSICIAN: Helen Chapa MD CHIEF COMPLAINT: Chronic RLS Consultation requested by Helen Chapa MD for an opinion regarding chief complaint of Patient presents with: New NI Sleep: Consult MAURICE and Restless legs and my final recommendations will be communicated back to the requesting physician by way of shared medical record or letter via [place] mail. HISTORY OF PRESENT ILLNESS: Kemal Cantu is a 76 year old female, BMI 45.73 kg/m2 with a PMH significant for MAURICE and RLS. Recently moved from [place] to [place]. Currently on Mirapex 0.125mg 2 tabs at dinner, 9PM and bedtime. Pt declines PAP use and is treating by sleeping upright in a charir. I do not have record of prior sleep study nor do I know if and to what degree there is a positional influence on the patient's sleep related breathing disorder. States she has had RLS for years and years. Tried gabapentin in the beginning. Eventually wound on up Mirapex and has been on it for about 10-15 years. Would get to a place where it would not work, so would go cold turkey and reset it. Thus started on Horizant 900mg (~5 years) at dinner. States every day is different but for the majority of the time, does ok. States that if the paient is sedentary all day the legs are horrible, but can also be exacerbated by overactivity. No recent nights in which not able to sleep. RLS rarely bother pt during the day. Sometimes symptoms go beyond the legs. Recalls being tried on Klonopin without success. Also tried on Lyrica. Pt with DM but stable with A1c between 6 - 6.5. Earliest RLS starts is 2PM. Pt states happy with meds. Rare that is starts at 2PM and moreso at about 5-6PM. Results for IRMA CANTU ( ) as of 11/29/2021 11:17 Ref. Range 04/28/2021 14:04 05/10/2021 07:26 05/18/2021 11:28 06/03/2021 11:03 06/21/2021 09:07 06/21/2021 10:00 06/21/2021 10:17 08/18/2021 13:24 09/13/2021 13:20 10/04/2021 12:18 Ferritin Latest Ref Range: 14.7 - 205.1 ng/mL 35.4 Iron Latest Ref Range: 41 - 186 ug/dL 59 TIBC Latest Ref Range: 232 - 386 ug/dL 357 Transferrin Saturation Latest Ref Range: 15 - 57 % 17 Never had Iron infusions. Takes oral supplement daily. Currently taking once daily but does not recall when. Regarding history of sleep apnea, states she was always a side sleeper and PAP would not stay on. Then tried to sleep on her back and was in horrible pain. Then started sleeping upright which is comfortable for back and hip. However, states if Im sleeping upright why do I need PAP. She states she is 99% sure she does not need it as the quality of her sleep is improved. Pt is not wanting to confirm with sleep study whether in lab or HSAT. REVIEW OF SYSTEMS GENERAL:No weight loss, malaise or fevers. HEENT:Negative for frequent or significant headaches, No changes in hearing or vision, no nose bleeds or other nasal problems NECK:Negative for lumps, goiter, pain and significant neck swelling RESPIRATORY: Negative for cough, wheezing or shortness of breath. CARDIOVASCULAR: Negative for chest pain or palpitations. GASTROINTESTINAL: Negative for abdominal discomfort, blood in stools or black stools or change in bowel habits GENITOURINARY: No history of dysuria, frequency or incontinence MUSCULOSKELETAL: Negative for joint pain or swelling, back pain or muscle pain. NEUROLOGIC:Negative for focal numbness or weakness, headaches and dizziness or syncope, vision changes, speech/languag changes - EXCEPT that as per HPI above. SKIN:Negative for lesions, rash, and itching. HEMATOLOGIC/LYMPHATIC/IMMUNOLOGI C:Negative for prolonged bleeding, bruising easily or swollen nodes. ENDOCRINE: Negative for cold or heat intolerance, polyuria, polydipsia and goiter. The remainder of the ROS was reviewed and is negative. LAB/IMAGING: Those performed since patient's last visit have been reviewed. WBC (k/uL) Date Value 04/09/2021 4.85 RBC (m/uL) Date Value 04/09/2021 3.93 Hemoglobin (g/dL) Date Value 04/09/2021 11.8 Hematocrit (%) Date Value 04/09/2021 35.5 (L) MCV (fL) Date Value 04/09/2021 90.3 MCH (pG) Date Value 04/09/2021 30.0 MCHC (g/dL) Date Value 04/09/2021 33.2 RDW-CV (%) Date Value 04/09/2021 14.0 Platelet Count (k/uL) Date Value 04/09/2021 236 MPV (fL) Date Value 04/09/2021 10.1 Glucose (mg/dL) Date Value 08/18/2021 103 (H) BUN (mg/dL) Date Value 08/18/2021 15 Creatinine (mg/dL) Date Value 08/18/2021 1.01 (H) Sodium (mmol/L) Date Value 08/18/2021 138 Potassium (mmol/L) Date Value 08/18/2021 3.9 Chloride (mmol/L) Date Value 08/18/2021 99 CO2 (mmol/L) Date Value 08/18/2021 27 Protein, Total (g/dL) Date Value 04/28/2021 6.9 Albumin (g/dL) Date Value 04/28/2021 4.0 Calcium (mg/dL) Date Value 08/18/2021 9.8 Alkaline Phosphatase (U/L) Date Value 04/28/2021 93 Bilirubin, Total (mg/dL) Date Value 04/28/2021 0.3 AST (U/L) Date Value 04/28/2021 33 ALT (U/L) Date Value 04/28/2021 44 (H) MEDICATIONS: montelukast (SINGULAIR) 10 mg tablet take 1 tablet by mouth at bedtime pramipexole (MIRAPEX) 0.125 mg tablet Take 2 tablets by mouth four times daily. atorvastatin (LIPITOR) 10 mg tablet Take 1 tablet by mouth once daily. ubidecarenone (COENZYME Q10) 100 mg tab Take 200 mg by mouth once daily. simethicone (GAS-X ORAL) Take 125 mg by mouth twice daily. multivit,thx,calcium,iron,mins (MULTIVITAMIN AND MINERAL ORAL) Take by mouth. L.acid/B.animalis,bifidum/FOS (PROBIOTIC COMPLEX ORAL) Take by mouth. vitamin K2 100 mcg cap Take 100 mcg by mouth. Zinc 50 mg tab Take 50 mg by mouth. amLODIPine (NORVASC) 2.5 mg tablet Take 2.5 mg by mouth once daily. dicyclomine (BENTYL) 10 mg capsule take 1 capsule by mouth four times a day before meals and at bedtime fluticasone (FLONASE) 50 mcg/actuation nasal spray Use 2 Sprays in each nostril once daily. conjugated estrogens (PREMARIN) vaginal cream Use 0.5 g vaginally two times a week. levothyroxine (SYNTHROID) 75 mcg tablet take 1 tablet by mouth once daily ON AN EMPTY STOMACH omeprazole (PRILOSEC) 40 mg capsule Take 1 capsule by mouth twice daily. buPROPion SR (ZYBAN SR; WELLBUTRIN SR) 150 mg 12 hr tablet Take 1 tablet by mouth once daily. semaglutide (OZEMPIC) 1 mg/dose (2 mg/1.5 mL) pen injector Inject 1 mg subcutaneously one time a week. HORIZANT 300 mg TbER Take 3 tablets by mouth once daily. valsartan (DIOVAN) 320 mg tablet Take 1 tablet by mouth once daily. metoprolol tartrate, short acting, (LOPRESSOR) 50 mg tablet Take 50 mg by mouth twice daily. Wheat Dextrin 3 gram/3.5 gram Take by mouth as needed. Bifidobacterium infantis (ALIGN ORAL) Take 1 tablet by mouth once daily. LOW-DOSE ASPIRIN ORAL Take 81 mg by mouth once daily. ticagrelor (BRILINTA) 90 mg tablet Take 90 mg by mouth twice daily. glyBURIDE (DIABETA) 2.5 mg tablet Take 1 tablet by mouth daily with breakfast. blood sugar diagnostic ([employer] ULTRA TEST) test strip Test blood sugar once a day DX: E11.9 metFORMIN (GLUCOPHAGE) 1,000 mg tablet Take 1 tablet by mouth daily with breakfast. LUMIGAN 0.01 % drop ophthalmic drops instill 1 drop into both eyes once daily at bedtime ketoconazole (NIZORAL) 2 % cream Apply to affected area once daily. Used for fungal skin fold rashes diclofenac sodium (VOLTAREN) 1 % topical gel Apply 2 g to affected area four times daily. amoxicillin (POLYMOX, AMOXIL) 500 mg capsule Take 500 mg by mouth. Take 4 capsules 1 hour before dental procedures. ascorbic acid, vitamin C, (VITAMIN C) 250 mg tablet Take 250 mg by mouth once daily. ferrous sulfate EC 324 mg (65 mg iron) TbEC Take 324 mg by mouth once daily. cholecalciferol (VITAMIN D-3) 2,000 unit tablet Take 2,000 Units by mouth once daily. potassium chloride (K-TAB) 10 mEq tablet Take 1 tablet by mouth every other day with lasix furosemide (LASIX) 20 mg tablet Take 1 tablet by mouth every other day with potassium famotidine (PEPCID) 40 mg tablet Take 1 tablet by mouth daily at bedtime. UBIDECARENONE-OMEGA 3-VIT E ORAL Take 1 tablet by mouth once daily. HISTORIESHISTORIES PAST MEDICAL HISTORY Diagnosis Date Diabetes mellitus (HCC) Fibromyalgia Fuchs' corneal dystrophy Gastroesophageal reflux disease Glaucoma HTN (hypertension) Hypothyroidism Irritable bowel syndrome Migraines MAURICE (obstructive sleep apnea) does not use c-pap Osteoarthritis PONV (postoperative nausea and vomiting) Pseudophakia PTSD (post-traumatic stress disorder) Restless leg syndrome Sleep apnea in adult TMJ (dislocation of temporomandibular joint) FAMILY HISTORY Problem Relation Age of Onset Heart Mother Diabetes Mother Heart Father Stroke Father Cataract Paternal Grandfather Glaucoma Other SOCIAL HISTORY Social History Tobacco Use Smoking status: Never Smoker Smokeless tobacco: Never Used Tobacco comment: Second hand smoke (mother) Vaping Use Vaping Use: Never used Substance Use Topics Alcohol use: Yes Alcohol/week: 1.0 standard drink Types: 1 Glasses of wine per week Comment: 3-4 glasses of wine per year Drug use: Never PHYSICAL EXAMINATION BP 138/86 Pulse 104 Temp 36.3 C (97.4 F) Resp 18 Wt 132.5 kg (292 lb) SpO2 97% BMI 45.73 kg/m GENERAL EXAM: General appearance: NAD, pleasant. HEENT: NC/AT, nasal congestion absent, no oral lesions, membranes moist. Lungs: CTA bilaterally. CV: RRR nl S1, S2. No carotid bruits. Extr: No cyanosis, clubbing or edema. Extremity pulses palpable and normal. Skin: Cool to touch. NEUROLOGICAL EXAM: General: Awake, alert, oriented x3 (person,place,time), speech fluent, no dysarthria; comprehension, naming, repetition intact. Fund of knowledge grossly normal. CN: PERRL, fundi with no evidence of papilledema, EOMI and without nystagmus, VFF to confrontation, facial sensation and strength are normal and symmetric, hearing is intact to finger rub bilaterally, palate and tongue movements are intact and symmetric. SCM and trapezius strength normal. Motor: Normal tone, bulk and strength (5/5) bilaterally (throughout extremities x4). Reflexes: 2/4 and symmetric, plantar stimulation is flexor. Coordination: FNF, JARAD, HTS intact. No tremors. Sensation: Light touch and vibration intact throughout. No evidence of neglect. Gait: Stable with normal stride and arm swing. Assessment and Plan: ASSESSMENT/PLAN: 1. Restless legs - ICD9: 333.94, ICD10: G25.81 (primary diagnosis) 2. Iron deficiency anemia, unspecified iron deficiency anemia type - ICD9: 280.9, ICD10: D50.9 Pt with chronic RLS of uncertain etiology but known Fe deficiency with low Ferritin as well as DM with possible some degree of neuropathy although not noted on exam. Patient is please with current meds. She understands risks of Augmentation with dopamine agonists. She understands that Horizant needs monitored closely due to mild decrease in GFR. We discussed other options such as Neupro and Lyrica and will consider in the future if needed. Plan as follows: -Repeat Iron and Ferritin levels. If still low, will consult [facility] in [place] for IV infusion therapy as possible treatment option for RLS. -Continue Mirapex 0.125mg 2 tabs at dinner, 9PM, bedtime with additional tabs as needed (rare). -Continue Horizant 900mg Q Dinner. SE and ADRs of Rx'd meds d/w pt. 3. MAURICE (obstructive sleep apnea) - ICD9: 327.23, ICD10: G47.33 Patient not interested in further workup or treatment. This includes declining HSAT to determine what degree of MAURICE, if any, she might have when upright. Discussed with patient: the physiology of OSAS, medical conditions associated with OSAS (DM, HTN, CAD, Depression, Stroke, Headache...) and treatment options (UPPP, Dental appliances, CPAP...). Advised patient to avoid activities that could harm self or others when tired/sleepy, including driving and/or operating heavy machinery. Encouraged weight loss, and continued compliance with other medications. Follow up 6 months or sooner prn. Hollie Blevins MD I spent a total of 48 minutes on the date of the service which included preparing to see the patient, [id number] patient care, completing clinical documentation, obtaining and/or reviewing separately obtained history, performing a medically appropriate examination, counseling and educating the patient/family/caregiver, ordering medications, tests, or procedures, independently interpreting results (not separately reported) and communicating results to the patient/family/caregiver. PDMP website checked and validated. All prescriptions have been APPROPRIATELY filled. No suspicious activity was identified. 11/29/2021 by Hollie Blevins MD documented in this encounter [facility] 11-29-2021 Miscellaneous Notes LV: 02/08/21 FV: None Patient's request for medication is as follows: Pending Prescriptions Disp Refills LUMIGAN 0.01 % EYE DROPS 5 mL 11 Sig: instill 1 drop into both eyes once daily at bedtime JAJA: Yes Prescription(s) as above. Please process accordingly. Juan Clark MD filed at 02/05/2021 7:14 AM Status: Signed Encounter Diagnosis ICD-10-CM 1. Status post corneal transplant Z94.7 ECC/CONFOCAL MICROSCOPY OU (BOTH EYES) OCT ANTERIOR SEGMENT OPTOVUE OU (BOTH EYES) 2. Primary open angle glaucoma (POAG) of both eyes, indeterminate stage H40.1134 3. Pseudophakia Z96.1 s/p DMEK OU, clear graft OU Has been off PF doing well Signs and symptoms of rejection reviewed, call JOYCE if present +hx early glaucoma vs glaucoma suspect following with local ophthalmology -- planning to see Dr. Gu in several months okay to follow up for care locally, can return to me PRN in the future or if any new s/s next visit mrx iop dfe ou optovue ou confocal cafe server ou I have confirmed and edited as necessary the relevant ophthalmic history, ROS, and the neuro exam findings as obtained by others. I have seen and examined this patient. I have discussed the case and the management of this patient's care with the Resident/Fellow, if applicable. I also have reviewed and agree with the assessment and plan as stated above and agree with all of its relevant components. MD Bradley Hernandez MD documented in this encounter [facility] 11-23-2021 Miscellaneous Notes Patient has been identified by name and date of : Yes Patient phones for refill(s): Pending Prescriptions Disp Refills MONTELUKAST 10 MG TABLET 210 tablet Sig: take 1 tablet by mouth at bedtime JAJA: Yes Date of last office visit in primary care: 11/01/21 Please advise. Thank you. Carly Hussein LPN documented in this encounter [facility] 11-18-2021 History of Presen t illness Narrative [facility] Enrollment Provider Action/FYI: Spk with Pt who is in agreement with [facility] program via web/ computer. Pt denies falls, uses a can for long distances. Patient referred by: [facility] Anthony Contact made with patient: Yes - Patient identified by name and . Discussed care with patient Grey this is Hedy Owens, RN and I am calling from Helen Chapa MD office at the [facility]. I am a RN Public Administration Professor with our [facility] program. Helen Chapa MD wanted me to reach out to help you manage your health at home. Our goal is to keep you well at home. We want to help you manage your chronic disease by providing a safety net of resources around you, getting you the care you need in a timely manner, and hopefully keep you out of the ED and hospital. I will send you a few questions once a week through your [facility] [employer] account. It will automatically show up for you to complete. There are simple questions that will help us identify if you have any concerns or symptoms and I will call you to help get what you need. We will be able to connect you, review your symptoms, do an on demand visit, or communicate with Helen Chapa MD if needed. I am going to sign you up for the program now. Enrollment Questions: Let's get you enrolled in the program. Yes, Do you have regular access to a computer/smartphone? Yes. Goal Setting: I would like to take some time today to discuss your personal health goals. Yes, patient has goals. Capture the goal the patient wants to accomplish: Improved Health. Does the goal align with programs offered at the [facility]? No Patient accepts resident care manager rn Thank you for your time today. I am excited to work together in managing your health! You will receive information on next steps through your [employer] account, and I will check back within a few weeks to ensure you have all that you need to use the program successfully. (Place name in care team and assign [facility] Flatwork Ironer questionnaire) Most people know what to do to become healthier, yet struggle to put it into action on their own.It can be hard to maintain a healthy lifestyle, especially when life is so stressful. Can we connect you with a [facility]ilermaker to find a program that could help you meet your goals? No Closing: Patient accepts resident care manager rn Thank you for your time today. I am excited to work together in managing your health! You will receive information on next steps through your [employer] account, and I will check back within a few weeks to ensure you have all that you need to use the program successfully. (Place name in care team and assign [employer] [employer] Flatwork Ironer questionnaire) Hedy Owens RN November 18, 2021 8:55 AM documented in this encounter [facility] 11-17-2021 History of Presen t illness Narrative Images from the original note were not included. Mckinley Jacobsen PA-C [facility] [address] [place] [address] 11/17/2021 ASSESSMENT AND PLAN: Assessment : Encounter Diagnosis ICD-10-CM 1. Degeneration of lumbar or lumbosacral intervertebral disc M51.37 MASSAGE THERAPY 2. Somatic dysfunction of lumbar region M99.03 MASSAGE THERAPY Discussion: Ms. Cantu is a 76-year-old female here for evaluation of chronic low back pain and some right buttock and leg sharp pains on occasion with right leg weakness and heaviness for approximately 5 years but getting worse. She has a second problem that she has related to her symptoms at least in terms of time coincidence where she also feels a painful pressure on the right side of the collarbone medial aspect toward the throat. Patient has a history of thyroid and parathyroid surgical treatment through anterior midline incision in this same region. She has a history of bilateral knee replacement Also has a history of FMS Symptoms are worse when standing or walking and better with sitting. She takes 2 Advil and a Tylenol when symptoms are the worst. She tried a course of supervised PT in 2019 and indicates that it did not help. She mobilizes quite slowly from sitting to standing posture. She has difficulty achieving fully erect stance. Gait is slow and seems to slightly favor the right. Due to diminished steadiness in her gait and stance, full lumbar motion was not attempted Neurologic exam was entirely normal in terms of reflexes, strength, sensation. Plain radiographs were completed October 04, 2021 and show apparent equal leg lengths, but appreciable degenerative findings throughout the lumbar region. There is no scoliosis appreciated but there is moderately severe facet arthrosis at multiple levels especially at L5-S1 and there is apparent arthrosis of bilateral SI joints. There is narrowing of bilateral hip joint weightbearing spaces superiorly and medially. There is mild loss of lumbar lordosis in the upper lumbar segments No fracture, instability, listhesis is noted. We had a lengthy discussion during today's office visit regarding treatment options. The patient has multiple treatments in the past and has essentially ruled out her interest in multiple other treatments at this point in time including various types of therapy, medications, injections, and surgery. She seems to understand that these treatment preferences appreciably limit the options available going forward. We had additional discussion regarding her morbid obesity and the relationship that has with overall long-term spine health. We also discussed how having bilateral lower extremity surgical procedures will affect persons gait and eventually can result in low back pain. In the end, she settled on consideration of massotherapy. I welcomed her to reconsider any of the other treatment options going forward and we could get her plugged in accordingly. Plan : REFERAL FOR SERVICES: -Referral to massotherapy MEDICATIONS: -Current medication regimen is appropriate for this problem. ACTIVITY RECOMMENDATIONS: -The patient is encouraged to avoid bed rest and maintain normal activity. NUTRITION RECOMMENDATIONS: -The patient is carrying a significant amount of weight above an ideal BMI. We discussed how this impacts overall health and back pain. FOLLOW-UP: -The patient is instructed to return as needed. ADDITIONAL DISCUSSION: -We discussed the difference between hurt vs harm as it relates to chronic pain. This document has been created with the use of voice recognition technology. It may contain inaccuracies: (e.g. misspellings, inaccurate syntax or word sense) that have escaped review. Time spent: 50 minutes today with this patient visit. This includes [id number] time, review of chart records regarding conservative care history, spine-pertinent imaging, and communication/care coordination with referring provider, problem-specific history-taking and counseling/education regarding treatment options. cc: Lety Haywood [address] [facility] [id number] Fax: Results of consultation to be transmitted via electronic medical record for those providers who practice within [facility] or with access to [employer] via MD Connect, or via letter. ################################ ################################ ######## CHIEF COMPLAINT: Patient is here for the lower back pain, right hip, left leg, and swelling in the ankles. Lower back pain is at 1/10 today, right hip is at 4/10, right leg pain is at 1/10. Sitting helps with pain. Has weakness, heaviness and shacking in the leg. When in pain- right away she will feel pressure in the front of her throat. Has this pain for 5 years and it's getting worse. HPI: see Discussion above History of bowel or bladder dysfunction (not IBS or constipation): No History of previous spinal surgery: No History of spinal fracture: No Work Status: retired NON-OPERATIVE CARE: Medication(s): She has tried the following for relief of her symptoms: OTC Tylenol OTC NSAIDs (Aleve or Ibuprofen/Advil/Motrin) Physical Therapy: She has had physical therapy for her current symptoms. This was completed 2 years ago. The therapy provided a notable amount of relief. Spinal Injections: She has not gotten prior spinal injections. Other: None Current Outpatient Medications Medication Sig Dispense Refill pramipexole (MIRAPEX) 0.125 mg tablet Take 2 tablets by mouth four times daily. 240 tablet 5 atorvastatin (LIPITOR) 10 mg tablet Take 1 tablet by mouth once daily. 90 tablet 3 ubidecarenone (COENZYME Q10) 100 mg tab Take 200 mg by mouth once daily. simethicone (GAS-X ORAL) Take 125 mg by mouth twice daily. multivit,thx,calcium,iron,mins (MULTIVITAMIN AND MINERAL ORAL) Take by mouth. L.acid/B.animalis,bifidum/FOS (PROBIOTIC COMPLEX ORAL) Take by mouth. vitamin K2 100 mcg cap Take 100 mcg by mouth. Zinc 50 mg tab Take 50 mg by mouth. amLODIPine (NORVASC) 2.5 mg tablet Take 2.5 mg by mouth once daily. dicyclomine (BENTYL) 10 mg capsule take 1 capsule by mouth four times a day before meals and at bedtime 360 capsule 1 fluticasone (FLONASE) 50 mcg/actuation nasal spray Use 2 Sprays in each nostril once daily. 16 g 2 conjugated estrogens (PREMARIN) vaginal cream Use 0.5 g vaginally two times a week. 12 g 3 levothyroxine (SYNTHROID) 75 mcg tablet take 1 tablet by mouth once daily ON AN EMPTY STOMACH 90 tablet 1 omeprazole (PRILOSEC) 40 mg capsule Take 1 capsule by mouth twice daily. 180 capsule 0 buPROPion SR (ZYBAN SR; WELLBUTRIN SR) 150 mg 12 hr tablet Take 1 tablet by mouth once daily. 90 tablet 1 semaglutide (OZEMPIC) 1 mg/dose (2 mg/1.5 mL) pen injector Inject 1 mg subcutaneously one time a week. 6 mL 11 HORIZANT 300 mg TbER Take 3 tablets by mouth once daily. 270 tablet 1 valsartan (DIOVAN) 320 mg tablet Take 1 tablet by mouth once daily. metoprolol tartrate, short acting, (LOPRESSOR) 50 mg tablet Take 50 mg by mouth twice daily. Wheat Dextrin 3 gram/3.5 gram Take by mouth as needed. Bifidobacterium infantis (ALIGN ORAL) Take 1 tablet by mouth once daily. montelukast (SINGULAIR) 10 mg tablet Take 1 tablet by mouth daily at bedtime. 30 tablet 6 LOW-DOSE ASPIRIN ORAL Take 81 mg by mouth once daily. ticagrelor (BRILINTA) 90 mg tablet Take 90 mg by mouth twice daily. glyBURIDE (DIABETA) 2.5 mg tablet Take 1 tablet by mouth daily with breakfast. 90 tablet 3 blood sugar diagnostic (ApogeeInventUCH ULTRA TEST) test strip Test blood sugar once a day DX: E11.9 50 Strip 11 metFORMIN (GLUCOPHAGE) 1,000 mg tablet Take 1 tablet by mouth daily with breakfast. 90 tablet 3 LUMIGAN 0.01 % drop ophthalmic drops instill 1 drop into both eyes once daily at bedtime 5 mL 11 ketoconazole (NIZORAL) 2 % cream Apply to affected area once daily. Used for fungal skin fold rashes 30 g 3 diclofenac sodium (VOLTAREN) 1 % topical gel Apply 2 g to affected area four times daily. 100 g 3 amoxicillin (POLYMOX, AMOXIL) 500 mg capsule Take 500 mg by mouth. Take 4 capsules 1 hour before dental procedures. ascorbic acid, vitamin C, (VITAMIN C) 250 mg tablet Take 250 mg by mouth once daily. ferrous sulfate EC 324 mg (65 mg iron) TbEC Take 324 mg by mouth once daily. cholecalciferol (VITAMIN D-3) 2,000 unit tablet Take 2,000 Units by mouth once daily. potassium chloride (K-TAB) 10 mEq tablet Take 1 tablet by mouth every other day with lasix (Patient not taking: Reported on 11/17/2021 ) 45 tablet 3 furosemide (LASIX) 20 mg tablet Take 1 tablet by mouth every other day with potassium 45 tablet 1 famotidine (PEPCID) 40 mg tablet Take 1 tablet by mouth daily at bedtime. 30 tablet 2 UBIDECARENONE-OMEGA 3-VIT E ORAL Take 1 tablet by mouth once daily. No current facility-administered medications for this visit. Allergies: Bacitracin (Bulk), Codeine, Dust Mites, Mold, Sulfa (Sulfonamide Antibiotics), and Tree Pollen-Red Maple PAST MEDICAL HISTORY Diagnosis Date Diabetes mellitus (HCC) Fibromyalgia Fuchs' corneal dystrophy Gastroesophageal reflux disease Glaucoma HTN (hypertension) Hypothyroidism Irritable bowel syndrome Migraines MAURICE (obstructive sleep apnea) does not use c-pap Osteoarthritis PONV (postoperative nausea and vomiting) Pseudophakia PTSD (post-traumatic stress disorder) Restless leg syndrome Sleep apnea in adult TMJ (dislocation of temporomandibular joint) PAST SURGICAL HISTORY Procedure Laterality Date CATARACT EXTRACTION W/ INTRAOCULAR LENS IMPLANT HX Bilateral 2017 COLONOSCOPY FLX DX W/COLLJ SPEC WHEN PFRMD 06/21/2021 CORNEAL TISSUE DSAEK/DMEK Left 09/30/2019 Dr. Clark ENDOTHELIAL KERATOPLASTY(DMEK) Right 04/17/2019 ENDOTHELIAL KERATOPLASTY/DSAEK Right 03/18/2019 ESOPHAGOGASTRODUODENOSCOPY TRANSORAL DIAGNOSTIC 06/21/2021 PAST SURGICAL HISTORY OF 1972 parathyroid adenoma surgery PAST SURGICAL HISTORY OF 1988 hysterectomy with prolapsed bladder repair PAST SURGICAL HISTORY OF 1992 abdominoplasty PAST SURGICAL HISTORY OF 1993 breast reduction PAST SURGICAL HISTORY OF 1979 deviated septum repair PAST SURGICAL HISTORY OF 1966 D&C after miscarriage PAST SURGICAL HISTORY OF 2013 Total right knee repalcement PAST SURGICAL HISTORY OF 11/2013 total left knee replacement PAST SURGICAL HISTORY OF 2015 rectocele repair with vaginal mesh PAST SURGICAL HISTORY OF 11/01/2015 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 PAST SURGICAL HISTORY OF 2018 DMEK Corneal Transplant-Right eye PAST SURGICAL HISTORY OF Left 10/10/2019 INJECTION, ANTERIOR CHAMBER OF EYE; AIR PRQ CARDIAC STENT W/ANGIO 1 VSL 03/02/2021 90% blockage RCA SKIN LESION BIOPSY 10/2015 x2 face YAG CAPSULOTOMY OD (RIGHT EYE) 2018 YAG CAPSULOTOMY OS (LEFT EYE) 2017 Social History Tobacco Use Smoking status: Never Smoker Smokeless tobacco: Never Used Tobacco comment: Second hand smoke (mother) Vaping Use Vaping Use: Never used Substance Use Topics Alcohol use: Yes Alcohol/week: 1.0 standard drink Types: 1 Glasses of wine per week Comment: 3-4 glasses of wine per year Drug use: Never FAMILY HISTORY Problem Relation Age of Onset Heart Mother Diabetes Mother Heart Father Stroke Father Cataract Paternal Grandfather Glaucoma Other REVIEW OF SYSTEMS: Constitutional: (-) Fever/Chills (-) Night Sweats (-) Weight Gain (-) Weight Loss (+) Fatigue Gastrointestinal: (+) Abdominal Pain (+) Diarrhea (-) Constipation (-) Nausea/Vomiting (+) Heart Burn Cardiovascular: (+) Chest Pain sometimes (+) Palpitations sometimes (+) Lightheadedness (+) Swelling of Ankles (+) Hx Heart Surgery/ 1 Stent Respiratory: (+) Short of Breath (-) Cough (+) Snoring Neurologic: (+) Headache Allergy (+) Blurry Vision (-) Fainting Skin: (+) Rashes (+) Itching (+) Other Lesions Psychiatric: (+) Depression (-) Anxiety (-) Suicidal Thoughts Genitourinary: (+) Frequency (+) Urgency Endocrine: (+) Thyroid Disorder (+) Diabetes Hematologic: (+) Prolonged Bleeding (+) Easy Bruising ################################ ################################ ################################ ################################ # PHYSICAL EXAM: Blood pressure 146/52, pulse 66, height 170.2 cm (5' 7), weight 132.8 kg (292 lb 12.8 oz), SpO2 96 %. Body mass index is 45.86 kg/m . General: Patient is a(n) average historian. The patient appears approximately her stated age and is sitting comfortably in the examining room. The patient is average height in stature and is morbidly obese in appearance. She has difficulty arising from a sitting position. She does have difficulty acquiring a full, upright position when standing. Station and Gait: flexed posture and antalgic gait leaning forward and favoring the right lower extremity The patient is unable to walk in a tandem gait. MENTAL STATUS EXAMINATION: The patient was well groomed and casually attired. The patient had good eye contact and rapport was slow to develop during the visit. The patient appeared to be alert and oriented in all spheres. The patient's overall medical judgment appeared to be fair.The patient's motivation for treatment was judged based on today's encounter to be fair. SPINE: Lumbar Lordosis: unable to assess due to body habitus Thoracic Kyphosis: unable to assess due to body habitus PALPATION TENDERNESS: Moderate tenderness at: lumbar region, posterior pelvis and gluteal region Hyperesthesia present: No Regional symptoms present: No Increased pain with axial loading: No Distraction: Normal Pain responses: appropriate NEUROLOGIC EXAM: MOTOR: Requires verbal cues to minimize cog-wheel or give-way resistance: No Hip Flexor R: 5/5 L: 5/5 Hip Adductor R: 5/5 L: 5/5 Hip Abductor R: 5/5 L: 5/5 Knee Extension R: 5/5 L: 5/5 Foot Dorsiflexion R: 5/5 L: 5/5 Foot Plantar Flexion R: 5/5 L: 5/5 Ext Hallicus Longus R: 5/5 L: 5/5 Toe Extensors R: 5/5 L: 5/5 SENSATION to Light Touch: Lumbar: L2-S1 symmetrically normal. REFLEXES: Lower Extremity: Patella tendon: R: 0 L: 0 Achilles tendon: R: 0 L: 0 Clonus: R: 0 beats/Normal L: 0 beats/Normal Babinski Sign: Negative bilaterally. Upper Extremity: Shipman's Sign: Negative bilaterally. VASCULAR: Skin appearance: Right: Warm/pink, 2+ pitting edema noted Left: Warm/pink, 2+ pitting edema noted Capillary refill: Right: 1-2 seconds Left: 1-2 seconds ADDITIONAL MUSCULOSKELETAL EXAM: HIP/PELVIS EXAM: Tenderness over the PSIS: Right: Yes Left: Yes Greater Trochanteric pain: Right: No Left: No SPECIAL TESTS: Straight Leg Raise: negative bilaterally Contralateral Straight Leg Raise: negative bilaterally IMAGING STUDIES: See discussion above documented in this encounter [facility] 11-08-[address] - 11/08/2021 11:28 AM EDT 1. All meals and snacks at the dinner table; minimize distractions, no TV while eating. Make meals last at least 20 min, chew each bite of food 20 x per bite.Portion out all foods, never eat out of container. Become more mindful of meal: Enjoy flavors, textures etc. Use hunger/fullness scale. 2. Include lean protein in each meal, include whole grain starches when having . 3. Work toward normal sleep/wake patterns 4. No afternoon snack and no evening snack. 5. Quick meals ideas: sandwich on whole grain bread; veg or broth based soups; frozen meals (300-400 calories); low fat cheese with whole grain crackers and fruit; high fiber cereal with Fairlife milk; eggs and whole grain toast; Czech yogurt and fruit; 6. Continue regular exercise 20-30 min 5 days per week (try seated exercises as available on youtube - hang peters and others) documented in this encounter [facility] 11-08-2021 History of Presen t illness Narrative .Nutrition Therapy Initial Assessment Nutrition Diagnosis: Overweight/obesity, related to, excess energy intake and physical inactivity, as evidenced by BMI above normative standard for age and gender. RECOMMENDED MALNUTRITION DIAGNOSIS: NO MALNUTRITION IDENTIFIED NUTRITION CARE PLAN Nutrition Intervention 11/08/2021: modify type and amount of food or beverage 1. All meals and snacks at the dinner table; minimize distractions, no TV while eating. Make meals last at least 20 min, chew each bite of food 20 x per bite.Portion out all foods, never eat out of container. Become more mindful of meal: Enjoy flavors, textures etc. Use hunger/fullness scale. 2. Include lean protein in each meal, include whole grain starches when having . 3. Work toward normal sleep/wake patterns 4. No afternoon snack and no evening snack. 5. Quick meals ideas: sandwich on whole grain bread; veg or broth based soups; frozen meals (300-400 calories); low fat cheese with whole grain crackers and fruit; high fiber cereal with Fairlife milk; eggs and whole grain toast; Czech yogurt and fruit; 6. Continue regular exercise 20-30 min 5 days per week (try seated exercises as available on youtube - hang peters and others) Nutrition Monitoring & Evaluation: half to one pound weight Need for Follow up: 4-6 weeks Patient presents for initial MNT as relates to obesity class 3 Body mass index is 46.83 kg/m . here for weight loss. NOtes always struggling weight weight, is on thyroid replacement ,last TSH 3.7; states family history of obesity. Maintained 137 most of adult life Lowest weight 132 when running. Gained 25 pound in 4 two week episodes (surgery and comfort foods; treatment fo repisodes of low blood sugar; after a water only fast; and after a divorce with emotional eating). Goal to be under 200. Diabetes well controlled with HgA1c 6.6. Needs to lose weight to have hip replacement surgery . Intake noted for three meals and three snacks, excess snacking grazing through the evening. Eats meals in living room in front of TV. Needs easy quick options with high pain, can stand only short periods. Limited exercise with pain. Patient's symptoms are: Weight Concerns: failure to lose weight Diet History: wake at 5 Breakfast - coffee and a whenever bar 180 sarah, 24 g carb, Snack - Czech yogurt or banana or slovak muffin Lunch - prepared tuna or egg salad, or prepared soup, cauliflower pizza (cannot start cook ;water - flavored Snack - bar (Kind or other) Dinner - 6 -7stir pinto vegetables with chicken or ground beef (prepared for several meals) over rice or potato; water Snack - excess snacking: ice cream, nuts, pretzels, bagel with creams cheese; Beverages - water Alcohol- no Vitamins/Supplements - see medlist Activity: Activities of Daily 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 Resting Metabolic Rate: 1883 Malnutrition Screening Significant unintentional weight loss? No Eating less than 75% of usual intake for more than 2 weeks? No Potential Signs of Inflammation: no identifiable sources Education Materials Provided: None this visit READINESS TO LEARN Cognitive ability: Alert and oriented Motivation to learn: Interested Family support: Unable to assess - Family not present Instruction provided to: Patient Patient learns best by: Individual Instruction Factors affecting learning: None Physical limitations affecting learning: None Referred/Supervised by: Noah CLEMENTS Billing Type: Initial Assess/15 min 2 units SIGNATURE: Radha High RD PATIENT NAME: Kemal Cantu DATE: November 08, 2021 TIME: 11:01 AM documented in this encounter [facility] 04-13-2021 History of Presen t illness Narrative Radiology Service Progress Note PATIENT NAME: Kemal Cantu DATE OF SERVICE: April 13, 2021 TIME: 10:58 AM PATIENT IDENTITY VERIFICATION COMPLETED USING TWO (2) IDENTIFIERS: Name and Date of confirmed by patient verbally. FALL SCREENING: Has the patient had 2 falls in the last year or 1 fall with injury or currently using an Ambulatory Assistive Device (Walker, Cane, Wheelchair, Crutches, etc.)? No PATIENT GENDER DATA: Female. status: : No status: NO. PATIENT RELEVANT IMPLANT DATA REVIEWED: Yes RADIOLOGY DEPARTMENT: General X-ray: Exam(s) Completed: Pelvis X-Ray: Pelvis with Hip Right PERIPHERAL IV DATA: Not applicable SIGNED BY: RT Gus(R) April 13, 2021 10:58 AM documented in this encounter [facility] 03-03-2021 History of Presen t illness Narrative .Nutrition rescreen completed. Chart reviewed. Patient to be monitored and followed by the diet tool technician.JOHN Greer [facility] CCU PROGRESS NOTE Patient Name: Kemal Cantu : 1945 Reason for Admission: Unstable Angina History of Present Illness: Kemal Cantu is a 75 y.o. female with PMHx LBBB (02/03/2021), T2DM (A1c 7.8), HTN, Fibromyalgia, Hypothyroidism, GERD, Migraines, RLS, MAURICE suspect that was admitted to [facility] on 03/01/2021 from [facility] ([facility]) after having a LHC at OSH that was unable to stent her lesions due to calcification. Overnight no acute events. Her RLS was bothering her, but was able to be treated with her home dose of pramipexole. Today she is sitting up in bed, and has no acute complaints. She is feeling well, but is not exerting herself. Admits to one episode of chest pain associated with her RLS last night, but does not think it was cardiac related. Review of Systems Constitutional: Negative for chills, fatigue and fever. Respiratory: Negative for cough, chest tightness, shortness of breath and wheezing. Cardiovascular: Negative for chest pain, palpitations and leg swelling. Gastrointestinal: Negative for abdominal pain, constipation, diarrhea, nausea and vomiting. Genitourinary: Negative for difficulty urinating and dyspareunia. Musculoskeletal: Admits to chronic right arm pain and swelling Neurological: Negative for dizziness, tremors, weakness and headaches. Past Medical History: Diagnosis Date Fibromyalgia GERD (gastroesophageal reflux disease) Hypothyroidism 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 stopped using CPAP in 2019 RLS (restless legs syndrome) Type 2 diabetes mellitus with hyperglycemia (HCC) No past surgical history on file. Family History Problem Relation Age of Onset Heart Attack Mother at age 59 Coronary Art Dis Mother Heart Attack Father Coronary Art Dis Father Heart Attack Sister Coronary Art Dis Sister Heart Attack Brother Heart Surgery Brother Coronary Art Dis Brother Social History Socioeconomic History Marital status: Spouse name: Not on file Number of children: Not on file Years of education: Not on file Highest education level: Not on file Occupational History Not on file Tobacco Use Smoking status: Not on file Substance and Sexual Activity Alcohol use: Not on file Drug use: Not on file Sexual activity: Not on file Other Topics Concern Not on file Social History Narrative Not on file Social Determinants of Health Financial Resource Strain: Difficulty of Paying Living Expenses: Food Insecurity: Worried About Running Out of Food in the Last Year: Ran Out of Food in the Last Year: Transportation Needs: Lack of Transportation (Medical): Lack of Transportation (Non-Medical): Physical Activity: Days of Exercise per Week: Minutes of Exercise per Session: Stress: Feeling of Stress : Social Connections: Frequency of Communication with Friends and Family: Frequency of Social Gatherings with Friends and Family: Attends [employer] Services: Active Member of Clubs or Organizations: Attends Club or Organization Meetings: Marital Status: Intimate Partner Violence: Fear of Current or Ex-Partner: Emotionally Abused: Physically Abused: Sexually Abused: Allergies Allergen Reactions Red Maple (Acer Rubrum) Allergy Skin Test Shortness Of Breath Bacitracin Hives Dust Mite Extract Other reaction(s): Other: See Comments Molds & Smuts Other (See Comments) Other Other reaction(s): Other: See Comments redness Codeine Nausea And Vomiting pramipexole 0.25 mg Oral 4x Daily Gabapentin Enacarbil ER 900 mg Oral Nightly sodium chloride flush 5-40 mL Intravenous 2 times per day aspirin 81 mg Oral Daily atorvastatin 80 mg Oral Nightly enoxaparin 40 mg Subcutaneous Daily ticagrelor 90 mg Oral BID buPROPion 150 mg Oral Daily dicyclomine 10 mg Oral TID AC ferrous sulfate 324 mg Oral Daily fluticasone 2 spray Each Nostril Daily levothyroxine 50 mcg Oral Daily montelukast 10 mg Oral Nightly [Held by provider] ketotifen 1 drop Both Eyes BID pantoprazole 40 mg Oral QAM AC vitamin D 2,000 Units Oral Daily insulin lispro 0-6 Units Subcutaneous TID WC metoprolol tartrate 25 mg Oral BID valsartan 320 mg Oral Daily And hydroCHLOROthiazide 12.5 mg Oral Daily Physical Exam: BP (!) 111/49 Pulse 65 Temp 97.2 F (36.2 C) (Oral) Resp 12 Ht 5' 7 (1.702 m) Wt 295 lb 13.7 oz (134.2 kg) SpO2 95% BMI 46.34 kg/m Patient Vitals for the past 96 hrs (Last 3 readings): Weight 03/02/21 0600 295 lb 13.7 oz (134.2 kg) 03/01/21 1630 287 lb 11.2 oz (130.5 kg) Physical Exam Constitutional: General: She is not in acute distress. Appearance: She is obese. She is not ill-appearing. HENT: Head: Normocephalic and atraumatic. Right Ear: External ear normal. Left Ear: External ear normal. Nose: Nose normal. Mouth/Throat: Mouth: Mucous membranes are moist. Pharynx: Oropharynx is clear. Eyes: Extraocular Movements: Extraocular movements intact. Conjunctiva/sclera: Conjunctivae normal. Cardiovascular: Rate and Rhythm: Normal rate and regular rhythm. Pulses: Normal pulses. Heart sounds: Normal heart sounds. No murmur heard. No gallop. Comments: Bilateral radial pulses intact and equal Pulmonary: Effort: Pulmonary effort is normal. No respiratory distress. Breath sounds: Normal breath sounds. No wheezing. Abdominal: General: Bowel sounds are normal. There is no distension. Palpations: Abdomen is soft. Tenderness: There is no abdominal tenderness. Musculoskeletal: General: Swelling present. Cervical back: Normal range of motion. Comments: Mild right forearm swelling Skin: General: Skin is warm and dry. Neurological: General: No focal deficit present. Mental Status: She is alert and oriented to person, place, and time. Psychiatric: Mood and Affect: Mood normal. Behavior: Behavior normal. Pertinent Labs: BMP: Recent Labs 03/02/21 0204 NA 135 K 4.1 CL 101 CO2 28 BUN 18 CREATININE 0.95 GLUCOSE 146* CBC: Recent Labs 03/02/21 0206 WBC 6.6 HGB 13.0 PLT 221 ABGs: No results found for: PHART, PO2ART, [id number] INR: No results for input(s): INR in the last 72 hours. TSH: No results found for: TSH PRO-BNP: No results for input(s): BNP in the last 72 hours. Cardiac Injury Profile: Recent Labs 03/01/21 1724 03/02/21 0204 CKTOTAL 39 45 TROPONINI 0.019 0.098* Lipid Profile: Lab Results Component Value Date TRIG 127 03/02/2021 HDL 45 03/02/2021 CHOL 149 03/02/2021 Hemoglobin A1C: No components found for: HGBA1C Chest Imaging: - CXR: 03/01 no acute process - CTA Chest: none - CT Chest: none No other studies available at this time. Cardiac Studies: - EK/20 Measurements Intervals [place] Rate: 63 P: 15 IA: 242 QRS: -36 QRSD: 142 T: 95 QT: 448 QTc: 459 Interpretive Statements Sinus rhythm Prolonged IA interval Left bundle branch block - Telemetry Review: reviewed - no events - Echo (03/01 @ [facility]): no report - EF ~65% - Stress Test (02/19): anterior ischemia - Cardiac Cath (03/01): RCA calcification - no report ([facility]) 03/02 - report pending No other studies available at this time. Active Problems: Coronary artery disease due to calcified coronary lesion Resolved Problems: * No resolved hospital problems. * ASSESSMENT / PLAN: CAD, LBBB Unstable Angina - CCS stage 3 - s/p [facility] 03/01/2021 difficulty crossing the RCA lesion - ASA, Atorvastatin, Brilinta, Valsartan/HCTZ, Lopressor 25mg BID - Brilinta 90mg BID - Atherectomy and rotoblator per Cardiology 03/02 -Elevated troponin 0.098 - likely secondary to cath yesterday - continue to trend R forearm pain - No signs of hematoma/acute limb ischemia - Ice packs for relief - Duplex Arterial R upper extremity - negative T2DM A1C 7.9 - POCT, SSI - Hold PO anti-diabetics for now Hypertension - Valsartan/HCTZ RLS - Pramipexole 0.25mg Hypothyroidism - Levothyroxine 50mcg daily - Check TSH Depression - Wellbutrin 150mg nightly IBS - Dicyclomine 10mg with meals and before bedtime - Gas-X PRN for cramping - Goals of Care: FULL CODE - Anticoagulation: lovenox daily - GI Prophylaxis: Not Indicated - Diet: Carb-Control and Cardiac - BMI Classification: Body mass index is 46.34 kg/m . Morbid Obesity (BMI >40) - Disposition: Continue to monitor in CCU. Associated attestation - Fabian Lynch MD - 03/02/2021 1:08 PM EDT Please see my attestation from H&P dated 03/01 for my A/P.documented in this encounter [facility] Work Phone: 03-02-2021 Note [facility] CCU Discharge Francisco leo Patient Name: Kemal Cantu : 1945 ADMIT: 03/01/2021 DISCHARGE: 03/03/2021 PCP: Paolo Fitch MD Visit Status: Admission Code Status: FULL CODE Chief Complaint: Unstable Angina Hospital Course HPI : The patient is a 75 y.o. female with PMH a LBBB (02/03/2021), T2DM (A1c 7.8), HTN, Fibromyalgia, Hypothyroidism, GERD, Migraines, RLS, MAURICE suspect that was admitted to [facility] on 03/01/2021 3:56 PM from OSH ([facility]) after having a LHC at OSH that was unable to stent her RCA lesion due to calcification. She was transferred to [facility] for further intervention. She underwent LHC and arthrectomy 03/02. She tolerated the procedure well and is stable for discharge home. Procedures Performed: Cardiac Catheterization (Date: 03/[address] Cobos): Report pending Echocardiogram (Type: complete Date: 03/01): (@[facility]) LVEF 65% Discharge Diagnoses: CAD, LBBB Unstable Angina - CCS stage 3 - s/p [facility] 03/01/2021 difficulty crossing the RCA lesion - s/p [facility] 03/02/2020 orbital arthrectomy nd LORI placed in RCA - ASA, Atorvastatin, Brilinta, Valsartan/HCTZ, Lopressor 25mg BID - Brilinta 90mg BID R forearm pain - resolved - No signs of hematoma/acute limb ischemia - Ice packs for relief - Duplex Arterial R upper extremity - negative T2DM A1C 7.9 - POCT, SSI - Resume home metformin 48 hours after PCI ( 03/05) Hypertension - Valsartan/HCTZ RLS - Pramipexole 0.25mg Hypothyroidism - Levothyroxine 50mcg daily Depression - Wellbutrin 150mg nightly IBS - Dicyclomine 10mg with meals and before bedtime - Gas-X PRN for cramping Discharge Medications: Kemal Cantu Home Medication Instructions EDGAR:[id number] Printed on:03/03/21 3547 Medication Information aspirin 81 MG chewable tablet Take 1 tablet by mouth daily atorvastatin (LIPITOR) 10 MG tablet Take 80 mg by mouth nightly buPROPion (WELLBUTRIN SR) 150 MG extended release tablet Take 150 mg by mouth daily Cetirizine HCl 10 MG CAPS Take by mouth nightly Cholecalciferol 50 MCG (1999 UT) TABS Take 2,000 Units by mouth daily dicyclomine (BENTYL) 10 MG capsule Take 10 mg by mouth Ferrous Sulfate 324 MG TBEC Take 324 mg by mouth daily fluticasone (FLONASE) 50 MCG/ACT nasal spray 2 sprays by NOT APPLICABLE route daily Gabapentin Enacarbil ER (HORIZANT) 300 MG TBCR Take 900 mg by mouth daily. glyBURIDE (DIABETA) 2.5 MG tablet Take 2.5 mg by mouth daily (with breakfast) levothyroxine (SYNTHROID) 50 MCG tablet Take 50 mcg by mouth daily metFORMIN (GLUCOPHAGE) 1000 MG tablet Take 1,000 mg by mouth daily (with breakfast) metoprolol tartrate (LOPRESSOR) 25 MG tablet Take 1 tablet by mouth 2 times daily montelukast (SINGULAIR) 10 MG tablet Take 10 mg by mouth nightly olopatadine (PATANOL) 0.1 % ophthalmic solution 1 drop omeprazole (PRILOSEC) 40 MG delayed release capsule Take 40 mg by mouth daily pramipexole (MIRAPEX) 0.125 MG tablet Take 0.25 mg by mouth 4 times daily prednisoLONE acetate (PRED MILD) 0.12 % ophthalmic suspension 1 drop 4 times daily Semaglutide,0.25 or 0.5MG/DOS, (OZEMPIC, 0.25 OR 0.5 MG/DOSE,) 2 MG/1.5ML SOPN Inject into the skin SITagliptin (JANUVIA) 100 MG tablet Take 100 mg by mouth daily ticagrelor (BRILINTA) 90 MG TABS tablet Take 1 tablet by mouth 2 times daily valsartan-hydroCHLOROthiazide (DIOVAN-HCT) 320-12.5 MG per tablet Take 1 tablet by mouth daily ICD Registry Information / AMI Registry Information: NYHA Functional Classification: Class 3 ASA: ASA 81mg QD P2Y12: Brilinta 90mg BID High-Intensity Statin: Lipitor 80mg QHS JESSIE/ARB: Diovan 320 - 12.5mg Beta-Katina: Lopressor 25mg BID Diuresis: Not needed. Other: NONE Referral to Cardiac Rehab completed referral placed for DC BMI Classification: Morbid Obesity (BMI >40) Disposition: Discharge to home in stable condition. RECOMMENDED NEXT STEPS: 1-2 week follow up with [facility] for STEMI/NSTEMI PCP 2-4 weekssooner if DX with Diabetes 6-8 week follow up with [facility] COMPLEXITY OF FOLLOW UP: [x]Moderate Complexity: follow up within 7-14 calendar days (22963) [] Severe Complexity: follow up within 7 calendar days (58471) DISCHARGE TIME: < 30minutes [facility] 03-02-2021 Evaluation note Diagnosis Onset Date Essential hypertension chron ic Hyperlipidemia chronic History of coronary artery stent placement March 02, 2021 resolved [facility] Work Phone: 1(594) 191-308607-20-2021 Evaluation note* Diagnosis Onset Date Resolution Status FINNEY (dyspnea on exertion) ac meryl Essential hypertension chron ic Hyperlipidemia chronic History of coronary artery stent placement March 02, 2021 resolved [facility] Work Phone: 1(565) 292-360503-15-2021 History of Past illness Narrative* Problem Noted Date Resolved Date Sacroiliac pain 10/26/2020 11/19/2020 Closed nondisplaced fracture of distal phalanx of finger with routine healing 10/26/2020 11/19/2020 documented as of this encounter (statuses as of 11/08/2021) [address]15-2021 History of Past illness Narrative* Problem Noted Date Resolved Date Sacroiliac pain 10/26/2020 11/19/2020 Closed nondisplaced fracture of distal phalanx of finger with routine healing 10/26/2020 11/19/2020 documented as of this encounter (statuses as of 11/18/2021) [address]15-2021 History of Past illness Narrative* Problem Noted Date Resolved Date Sacroiliac pain 10/26/2020 11/19/2020 Closed nondisplaced fracture of distal phalanx of finger with routine healing 10/26/2020 11/19/2020 documented as of this encounter (statuses as of 11/18/2021) [address]15-2021 History of Past illness Narrative* Problem Noted Date Resolved Date Sacroiliac pain 10/26/2020 11/19/2020 Closed nondisplaced fracture of distal phalanx of finger with routine healing 10/26/2020 11/19/2020 documented as of this encounter (statuses as of 11/23/2021) [address]15-2021 History of Past illness Narrative* Problem Noted Date Resolved Date Sacroiliac pain 10/26/2020 11/19/2020 Closed nondisplaced fracture of distal phalanx of finger with routine healing 10/26/2020 11/19/2020 documented as of this encounter (statuses as of 11/29/2021) [address]15-2021 History of Past illness Narrative* Problem Noted Date Resolved Date Sacroiliac pain 10/26/2020 11/19/2020 Closed nondisplaced fracture of distal phalanx of finger with routine healing 10/26/2020 11/19/2020 documented as of this encounter (statuses as of 11/29/2021) [address]15-2021 History of Past illness Narrative* Problem Noted Date Resolved Date Sacroiliac pain 10/26/2020 11/19/2020 Closed nondisplaced fracture of distal phalanx of finger with routine healing 10/26/2020 11/19/2020 documented as of this encounter (statuses as of 12/01/2021) [address]15-2021 History of Past illness Narrative* Problem Noted Date Resolved Date Sacroiliac pain 10/26/2020 11/19/2020 Closed nondisplaced fracture of distal phalanx of finger with routine healing 10/26/2020 11/19/2020 documented as of this encounter (statuses as of 12/01/2021) [facility]-15-2021 History of Past illness Narrative* Problem Noted Date Resolved Date Sacroiliac pain 10/26/2020 11/19/2020 Closed nondisplaced fracture of distal phalanx of finger with routine healing 10/26/2020 11/19/2020 documented as of this encounter (statuses as of 12/03/2021) [address]15-2021 History of Past illness Narrative* Problem Noted Date Resolved Date Sacroiliac pain 10/26/2020 11/19/2020 Closed nondisplaced fracture of distal phalanx of finger with routine healing 10/26/2020 11/19/2020 documented as of this encounter (statuses as of 12/07/2021) [address]-2021 History of Past illness Narrative* Problem Noted Date Resolved Date Sacroiliac pain 10/26/2020 11/19/2020 Closed nondisplaced fracture of distal phalanx of finger with routine healing 10/26/2020 11/19/2020 documented as of this encounter (statuses as of 12/08/2021) [address]-2021 History of Past illness Narrative* Problem Noted Date Resolved Date Sacroiliac pain 10/26/2020 11/19/2020 Closed nondisplaced fracture of distal phalanx of finger with routine healing 10/26/2020 11/19/2020 documented as of this encounter (statuses as of 12/15/2021) [address]-2021 History of Past illness Narrative* Problem Noted Date Resolved Date Sacroiliac pain 10/26/2020 11/19/2020 Closed nondisplaced fracture of distal phalanx of finger with routine healing 10/26/2020 11/19/2020 documented as of this encounter (statuses as of 12/16/2021) [facility]2021 History of Past illness Narrative* Problem Noted Date Resolved Date Sacroiliac pain 10/26/2020 11/19/2020 Closed nondisplaced fracture of distal phalanx of finger with routine healing 10/26/2020 11/19/2020 documented as of this encounter (statuses as of 12/28/2021) [facility]2021 History of Past illness Narrative* Problem Noted Date Resolved Date Sacroiliac pain 10/26/2020 11/19/2020 Closed nondisplaced fracture of distal phalanx of finger with routine healing 10/26/2020 11/19/2020 documented as of this encounter (statuses as of 01/03/2022) [facility]2021 History of Past illness Narrative* Problem Noted Date Resolved Date Sacroiliac pain 10/26/2020 11/19/2020 Closed nondisplaced fracture of distal phalanx of finger with routine healing 10/26/2020 11/19/2020 documented as of this encounter (statuses as of 01/03/2022) [facility] History of Past illness Narrative* Problem Noted Date Resolved Date Sacroiliac pain 10/26/2020 11/19/2020 Closed nondisplaced fracture of distal phalanx of finger with routine healing 10/26/2020 11/19/2020 documented as of this encounter (statuses as of 01/04/2022) [address]-2021 History of Past illness Narrative* Problem Noted Date Resolved Date Sacroiliac pain 10/26/2020 11/19/2020 Closed nondisplaced fracture of distal phalanx of finger with routine healing 10/26/2020 11/19/2020 documented as of this encounter (statuses as of 01/24/2022) [facility] History of Past illness Narrative* Problem Noted Date Resolved Date Sacroiliac pain 10/26/2020 11/19/2020 Closed nondisplaced fracture of distal phalanx of finger with routine healing 10/26/2020 11/19/2020 documented as of this encounter (statuses as of 01/28/2022) [address]-2021 History of Past illness Narrative* Problem Noted Date Resolved Date Sacroiliac pain 10/26/2020 11/19/2020 Closed nondisplaced fracture of distal phalanx of finger with routine healing 10/26/2020 11/19/2020 documented as of this encounter (statuses as of 01/31/2022) [address]15-2021 History of Past illness Narrative* Problem Noted Date Resolved Date Sacroiliac pain 10/26/2020 11/19/2020 Closed nondisplaced fracture of distal phalanx of finger with routine healing 10/26/2020 11/19/2020 documented as of this encounter (statuses as of 02/01/2022) [facility] History of Past illness Narrative* Problem Noted Date Resolved Date Sacroiliac pain 10/26/2020 11/19/2020 Closed nondisplaced fracture of distal phalanx of finger with routine healing 10/26/2020 11/19/2020 documented as of this encounter (statuses as of 02/21/2022) [facility] History of Past illness Narrative* Problem Noted Date Resolved Date Sacroiliac pain 10/26/2020 11/19/2020 Closed nondisplaced fracture of distal phalanx of finger with routine healing 10/26/2020 11/19/2020 documented as of this encounter (statuses as of 02/26/2022) [address]15-2021 History of Past illness Narrative* Problem Noted Date Resolved Date Sacroiliac pain 10/26/2020 11/19/2020 Closed nondisplaced fracture of distal phalanx of finger with routine healing 10/26/2020 11/19/2020 documented as of this encounter (statuses as of 03/01/2022) [address]15-2021 History of Past illness Narrative* Problem Noted Date Resolved Date Sacroiliac pain 10/26/2020 11/19/2020 Closed nondisplaced fracture of distal phalanx of finger with routine healing 10/26/2020 11/19/2020 documented as of this encounter (statuses as of 03/09/2022) [facility] History of Past illness Narrative* Problem Noted Date Resolved Date Sacroiliac pain 10/26/2020 11/19/2020 Closed nondisplaced fracture of distal phalanx of finger with routine healing 10/26/2020 11/19/2020 documented as of this encounter (statuses as of 03/15/2022) [facility] History of Past illness Narrative* Problem Noted Date Resolved Date Sacroiliac pain 10/26/2020 11/19/2020 Closed nondisplaced fracture of distal phalanx of finger with routine healing 10/26/2020 11/19/2020 documented as of this encounter (statuses as of 03/28/2022) [facility] History of Past illness Narrative* Problem Noted Date Resolved Date Sacroiliac pain 10/26/2020 11/19/2020 Closed nondisplaced fracture of distal phalanx of finger with routine healing 10/26/2020 11/19/2020 documented as of this encounter (statuses as of 03/30/2022) [facility] History of Past illness Narrative* Problem Noted Date Resolved Date Sacroiliac pain 10/26/2020 11/19/2020 Closed nondisplaced fracture of distal phalanx of finger with routine healing 10/26/2020 11/19/2020 documented as of this encounter (statuses as of 03/31/2022) [facility] History of Past illness Narrative* Problem Noted Date Resolved Date Sacroiliac pain 10/26/2020 11/19/2020 Closed nondisplaced fracture of distal phalanx of finger with routine healing 10/26/2020 11/19/2020 documented as of this encounter (statuses as of 04/04/2022) [address]15-2021 History of Past illness Narrative* Problem Noted Date Resolved Date Sacroiliac pain 10/26/2020 11/19/2020 Closed nondisplaced fracture of distal phalanx of finger with routine healing 10/26/2020 11/19/2020 documented as of this encounter (statuses as of 04/08/2022) [address]15-2021 History of Past illness Narrative* Problem Noted Date Resolved Date Sacroiliac pain 10/26/2020 11/19/2020 Closed nondisplaced fracture of distal phalanx of finger with routine healing 10/26/2020 11/19/2020 documented as of this encounter (statuses as of 04/21/2022) [address]15-2021 History of Past illness Narrative* Problem Noted Date Resolved Date Sacroiliac pain 10/26/2020 11/19/2020 Closed nondisplaced fracture of distal phalanx of finger with routine healing 10/26/2020 11/19/2020 documented as of this encounter (statuses as of 04/22/2022) [address]15-2021 History of Past illness Narrative* Problem Noted Date Resolved Date Sacroiliac pain 10/26/2020 11/19/2020 Closed nondisplaced fracture of distal phalanx of finger with routine healing 10/26/2020 11/19/2020 documented as of this encounter (statuses as of 04/26/2022) [facility] History of Past illness Narrative* Problem Noted Date Resolved Date Sacroiliac pain 10/26/2020 11/19/2020 Closed nondisplaced fracture of distal phalanx of finger with routine healing 10/26/2020 11/19/2020 documented as of this encounter (statuses as of 04/27/2022) [address]15-2021 History of Past illness Narrative* Problem Noted Date Resolved Date Sacroiliac pain 10/26/2020 11/19/2020 Closed nondisplaced fracture of distal phalanx of finger with routine healing 10/26/2020 11/19/2020 documented as of this encounter (statuses as of 04/27/2022) [address]15-2021 History of Past illness Narrative* Problem Noted Date Resolved Date Sacroiliac pain 10/26/2020 11/19/2020 Closed nondisplaced fracture of distal phalanx of finger with routine healing 10/26/2020 11/19/2020 documented as of this encounter (statuses as of 04/28/2022) [address]15-2021 History of Past illness Narrative* Problem Noted Date Resolved Date Sacroiliac pain 10/26/2020 11/19/2020 Closed nondisplaced fracture of distal phalanx of finger with routine healing 10/26/2020 11/19/2020 documented as of this encounter (statuses as of 04/29/2022) [address]15-2021 History of Past illness Narrative* Problem Noted Date Resolved Date Sacroiliac pain 10/26/2020 11/19/2020 Closed nondisplaced fracture of distal phalanx of finger with routine healing 10/26/2020 11/19/2020 documented as of this encounter (statuses as of 04/29/2022) [address]15-2021 History of Past illness Narrative* Problem Noted Date Resolved Date Sacroiliac pain 10/26/2020 11/19/2020 Closed nondisplaced fracture of distal phalanx of finger with routine healing 10/26/2020 11/19/2020 documented as of this encounter (statuses as of 05/16/2022) [address]15-2021 History of Past illness Narrative* Problem Noted Date Resolved Date Sacroiliac pain 10/26/2020 11/19/2020 Closed nondisplaced fracture of distal phalanx of finger with routine healing 10/26/2020 11/19/2020 documented as of this encounter (statuses as of 05/19/2022) [address]15-2021 History of Past illness Narrative* Problem Noted Date Resolved Date Sacroiliac pain 10/26/2020 11/19/2020 Closed nondisplaced fracture of distal phalanx of finger with routine healing 10/26/2020 11/19/2020 documented as of this encounter (statuses as of 05/25/2022) [address]-2021 History of Past illness Narrative* Problem Noted Date Resolved Date Sacroiliac pain 10/26/2020 11/19/2020 Closed nondisplaced fracture of distal phalanx of finger with routine healing 10/26/2020 11/19/2020 documented as of this encounter (statuses as of 05/29/2022) [facility]-15-2021 History of Past illness Narrative* Problem Noted Date Resolved Date Sacroiliac pain 10/26/2020 11/19/2020 Closed nondisplaced fracture of distal phalanx of finger with routine healing 10/26/2020 11/19/2020 documented as of this encounter (statuses as of 06/02/2022) [address]15-2021 History of Past illness Narrative* Problem Noted Date Resolved Date Sacroiliac pain 10/26/2020 11/19/2020 Closed nondisplaced fracture of distal phalanx of finger with routine healing 10/26/2020 11/19/2020 documented as of this encounter (statuses as of 06/03/2022) [address]15-2021 History of Past illness Narrative* Problem Noted Date Resolved Date Sacroiliac pain 10/26/2020 11/19/2020 Closed nondisplaced fracture of distal phalanx of finger with routine healing 10/26/2020 11/19/2020 documented as of this encounter (statuses as of 06/06/2022) [facility]-2021 History of Past illness Narrative* Problem Noted Date Resolved Date Sacroiliac pain 10/26/2020 11/19/2020 Closed nondisplaced fracture of distal phalanx of finger with routine healing 10/26/2020 11/19/2020 documented as of this encounter (statuses as of 06/09/2022) [facility]2021 History of Past illness Narrative* Problem Noted Date Resolved Date Sacroiliac pain 10/26/2020 11/19/2020 Closed nondisplaced fracture of distal phalanx of finger with routine healing 10/26/2020 11/19/2020 documented as of this encounter (statuses as of 06/27/2022) [address]-2021 History of Past illness Narrative* Problem Noted Date Resolved Date Sacroiliac pain 10/26/2020 11/19/2020 Closed nondisplaced fracture of distal phalanx of finger with routine healing 10/26/2020 11/19/2020 documented as of this encounter (statuses as of 07/20/2022) [address]-2021 History of Past illness Narrative* Problem Noted Date Resolved Date Sacroiliac pain 10/26/2020 11/19/2020 Closed nondisplaced fracture of distal phalanx of finger with routine healing 10/26/2020 11/19/2020 documented as of this encounter (statuses as of 07/22/2022) [address]15-2021 History of Past illness Narrative* Problem Noted Date Resolved Date Sacroiliac pain 10/26/2020 11/19/2020 Closed nondisplaced fracture of distal phalanx of finger with routine healing 10/26/2020 11/19/2020 documented as of this encounter (statuses as of 08/19/2022) [address]15-2021 History of Past illness Narrative* Problem Noted Date Resolved Date Sacroiliac pain 10/26/2020 11/19/2020 Closed nondisplaced fracture of distal phalanx of finger with routine healing 10/26/2020 11/19/2020 documented as of this encounter (statuses as of 08/19/2022) [address]-2021 History of Past illness Narrative* Problem Noted Date Resolved Date Sacroiliac pain 10/26/2020 11/19/2020 Closed nondisplaced fracture of distal phalanx of finger with routine healing 10/26/2020 11/19/2020 documented as of this encounter (statuses as of 08/22/2022) [address]-2021 History of Past illness Narrative* Problem Noted Date Resolved Date Sacroiliac pain 10/26/2020 11/19/2020 Closed nondisplaced fracture of distal phalanx of finger with routine healing 10/26/2020 11/19/2020 documented as of this encounter (statuses as of 08/22/2022) [address]-2021 History of Past illness Narrative* Problem Noted Date Resolved Date Sacroiliac pain 10/26/2020 11/19/2020 Closed nondisplaced fracture of distal phalanx of finger with routine healing 10/26/2020 11/19/2020 documented as of this encounter (statuses as of 08/29/2022) [address]-2021 History of Past illness Narrative* Problem Noted Date Resolved Date Sacroiliac pain 10/26/2020 11/19/2020 Closed nondisplaced fracture of distal phalanx of finger with routine healing 10/26/2020 11/19/2020 documented as of this encounter (statuses as of 09/07/2022) [facility]-2021 History of Past illness Narrative* Problem Noted Date Resolved Date Sacroiliac pain 10/26/2020 11/19/2020 Closed nondisplaced fracture of distal phalanx of finger with routine healing 10/26/2020 11/19/2020 documented as of this encounter (statuses as of 09/09/2022) [facility]2021 History of Past illness Narrative* Problem Noted Date Resolved Date Sacroiliac pain 10/26/2020 11/19/2020 Closed nondisplaced fracture of distal phalanx of finger with routine healing 10/26/2020 11/19/2020 documented as of this encounter (statuses as of 09/12/2022) [facility]2021 History of Past illness Narrative* Problem Noted Date Resolved Date Sacroiliac pain 10/26/2020 11/19/2020 Closed nondisplaced fracture of distal phalanx of finger with routine healing 10/26/2020 11/19/2020 documented as of this encounter (statuses as of 09/16/2022) [facility]2021 History of Past illness Narrative* Problem Noted Date Resolved Date Sacroiliac pain 10/26/2020 11/19/2020 Closed nondisplaced fracture of distal phalanx of finger with routine healing 10/26/2020 11/19/2020 documented as of this encounter (statuses as of 09/20/2022) [address]-2021 History of Past illness Narrative* Problem Noted Date Resolved Date Sacroiliac pain 10/26/2020 11/19/2020 Closed nondisplaced fracture of distal phalanx of finger with routine healing 10/26/2020 11/19/2020 documented as of this encounter (statuses as of 09/30/2022) [address]-2021 History of Past illness Narrative* Problem Noted Date Resolved Date Sacroiliac pain 10/26/2020 11/19/2020 Closed nondisplaced fracture of distal phalanx of finger with routine healing 10/26/2020 11/19/2020 documented as of this encounter (statuses as of 10/03/2022) [facility]2021 History of Past illness Narrative* Problem Noted Date Resolved Date Sacroiliac pain 10/26/2020 11/19/2020 Closed nondisplaced fracture of distal phalanx of finger with routine healing 10/26/2020 11/19/2020 documented as of this encounter (statuses as of 10/04/2022) [facility]2021 History of Past illness Narrative* Problem Noted Date Resolved Date Sacroiliac pain 10/26/2020 11/19/2020 Closed nondisplaced fracture of distal phalanx of finger with routine healing 10/26/2020 11/19/2020 documented as of this encounter (statuses as of 10/25/2022) [facility]2021 History of Past illness Narrative* Problem Noted Date Resolved Date Sacroiliac pain 10/26/2020 11/19/2020 Closed nondisplaced fracture of distal phalanx of finger with routine healing 10/26/2020 11/19/2020 documented as of this encounter (statuses as of 10/25/2022) [facility]2021 History of Past illness Narrative* Problem Noted Date Resolved Date Sacroiliac pain 10/26/2020 11/19/2020 Closed nondisplaced fracture of distal phalanx of finger with routine healing 10/26/2020 11/19/2020 documented as of this encounter (statuses as of 11/11/2022) [facility]2021 History of Past illness Narrative* Problem Noted Date Resolved Date Sacroiliac pain 10/26/2020 11/19/2020 Closed nondisplaced fracture of distal phalanx of finger with routine healing 10/26/2020 11/19/2020 documented as of this encounter (statuses as of 11/16/2022) [address]-2021 History of Past illness Narrative* Problem Noted Date Resolved Date Sacroiliac pain 10/26/2020 11/19/2020 Closed nondisplaced fracture of distal phalanx of finger with routine healing 10/26/2020 11/19/2020 documented as of this encounter (statuses as of 11/21/2022) [address]15-2021 History of Past illness Narrative* Problem Noted Date Resolved Date Sacroiliac pain 10/26/2020 11/19/2020 Closed nondisplaced fracture of distal phalanx of finger with routine healing 10/26/2020 11/19/2020 documented as of this encounter (statuses as of 11/22/2022) [address]-2021 History of Past illness Narrative* Problem Noted Date Resolved Date Sacroiliac pain 10/26/2020 11/19/2020 Closed nondisplaced fracture of distal phalanx of finger with routine healing 10/26/2020 11/19/2020 documented as of this encounter (statuses as of 11/24/2022) [address]15-2021 History of Past illness Narrative* Problem Noted Date Resolved Date Sacroiliac pain 10/26/2020 11/19/2020 Closed nondisplaced fracture of distal phalanx of finger with routine healing 10/26/2020 11/19/2020 documented as of this encounter (statuses as of 11/28/2022) [address]15-2021 History of Past illness Narrative* Problem Noted Date Resolved Date Sacroiliac pain 10/26/2020 11/19/2020 Closed nondisplaced fracture of distal phalanx of finger with routine healing 10/26/2020 11/19/2020 documented as of this encounter (statuses as of 12/02/2022) [address]15-2021 History of Past illness Narrative* Problem Noted Date Resolved Date Sacroiliac pain 10/26/2020 11/19/2020 Closed nondisplaced fracture of distal phalanx of finger with routine healing 10/26/2020 11/19/2020 documented as of this encounter (statuses as of 12/03/2022) [address]15-2021 History of Past illness Narrative* Problem Noted Date Resolved Date Sacroiliac pain 10/26/2020 11/19/2020 Closed nondisplaced fracture of distal phalanx of finger with routine healing 10/26/2020 11/19/2020 documented as of this encounter (statuses as of 12/12/2022) [facility]2021 History of Past illness Narrative* Problem Noted Date Resolved Date Sacroiliac pain 10/26/2020 11/19/2020 Closed nondisplaced fracture of distal phalanx of finger with routine healing 10/26/2020 11/19/2020 documented as of this encounter (statuses as of 12/12/2022) [facility]2021 History of Past illness Narrative* Problem Noted Date Resolved Date Sacroiliac pain 10/26/2020 11/19/2020 Closed nondisplaced fracture of distal phalanx of finger with routine healing 10/26/2020 11/19/2020 documented as of this encounter (statuses as of 12/19/2022) [facility]2021 History of Past illness Narrative* Problem Noted Date Resolved Date Sacroiliac pain 10/26/2020 11/19/2020 Closed nondisplaced fracture of distal phalanx of finger with routine healing 10/26/2020 11/19/2020 documented as of this encounter (statuses as of 01/20/2023) [facility]2021 History of Past illness Narrative* Problem Noted Date Resolved Date Sacroiliac pain 10/26/2020 11/19/2020 Closed nondisplaced fracture of distal phalanx of finger with routine healing 10/26/2020 11/19/2020 documented as of this encounter (statuses as of 01/12/2023) [address]15-2021 History of Past illness Narrative* Problem Noted Date Resolved Date Sacroiliac pain 10/26/2020 11/19/2020 Closed nondisplaced fracture of distal phalanx of finger with routine healing 10/26/2020 11/19/2020 documented as of this encounter (statuses as of 01/12/2023) [address]15-2021 History of Past illness Narrative* Problem Noted Date Resolved Date Sacroiliac pain 10/26/2020 11/19/2020 Closed nondisplaced fracture of distal phalanx of finger with routine healing 10/26/2020 11/19/2020 documented as of this encounter (statuses as of 01/23/2023) [address]15-2021 History of Past illness Narrative* Problem Noted Date Resolved Date Sacroiliac pain 10/26/2020 11/19/2020 Closed nondisplaced fracture of distal phalanx of finger with routine healing 10/26/2020 11/19/2020 documented as of this encounter (statuses as of 01/26/2023) [address]15-2021 History of Past illness Narrative* Problem Noted Date Resolved Date Sacroiliac pain 10/26/2020 11/19/2020 Closed nondisplaced fracture of distal phalanx of finger with routine healing 10/26/2020 11/19/2020 documented as of this encounter (statuses as of 01/27/2023) [address]15-2021 History of Past illness Narrative* Problem Noted Date Resolved Date Sacroiliac pain 10/26/2020 11/19/2020 Closed nondisplaced fracture of distal phalanx of finger with routine healing 10/26/2020 11/19/2020 documented as of this encounter (statuses as of 02/06/2023) [address]15-2021 History of Past illness Narrative* Problem Noted Date Resolved Date Sacroiliac pain 10/26/2020 11/19/2020 Closed nondisplaced fracture of distal phalanx of finger with routine healing 10/26/2020 11/19/2020 documented as of this encounter (statuses as of 02/09/2023) [address]15-2021 History of Past illness Narrative* Problem Noted Date Resolved Date Sacroiliac pain 10/26/2020 11/19/2020 Closed nondisplaced fracture of distal phalanx of finger with routine healing 10/26/2020 11/19/2020 documented as of this encounter (statuses as of 02/09/2023) [address]15-2021 History of Past illness Narrative* Problem Noted Date Diagnosed Date Resolved Date Sacroiliac pain 10/26/2020 11/19/2020 Closed nondisplaced fracture of distal phalanx of finger with routine healing 10/26/2020 0 11/19/2020 documented as of this encounter (statuses as of 02/22/2023) [address]15-2021 History of Past illness Narrative* Problem Noted Date Diagnosed Date Resolved Date Sacroiliac pain 10/26/2020 11/19/2020 Closed nondisplaced fracture of distal phalanx of finger with routine healing 10/26/2020 0 11/19/2020 documented as of this encounter (statuses as of 02/27/2023) [address]15-2021 History of Past illness Narrative* Problem Noted Date Diagnosed Date Resolved Date Sacroiliac pain 10/26/2020 11/19/2020 Closed nondisplaced fracture of distal phalanx of finger with routine healing 10/26/2020 0 11/19/2020 documented as of this encounter (statuses as of 03/16/2023) [address]15-2021 History of Past illness Narrative* Problem Noted Date Diagnosed Date Resolved Date Sacroiliac pain 10/26/2020 11/19/2020 Closed nondisplaced fracture of distal phalanx of finger with routine healing 10/26/2020 0 11/19/2020 documented as of this encounter (statuses as of 03/18/2023) [address]15-2021 History of Past illness Narrative* Problem Noted Date Diagnosed Date Resolved Date Sacroiliac pain 10/26/2020 11/19/2020 Closed nondisplaced fracture of distal phalanx of finger with routine healing 10/26/2020 0 11/19/2020 documented as of this encounter (statuses as of 03/21/2023) [address]15-2021 History of Past illness Narrative* Problem Noted Date Diagnosed Date Resolved Date Sacroiliac pain 10/26/2020 11/19/2020 Closed nondisplaced fracture of distal phalanx of finger with routine healing 10/26/2020 0 11/19/2020 documented as of this encounter (statuses as of 03/22/2023) [address]15-2021 History of Past illness Narrative* Problem Noted Date Diagnosed Date Resolved Date Sacroiliac pain 10/26/2020 11/19/2020 Closed nondisplaced fracture of distal phalanx of finger with routine healing 10/26/2020 0 11/19/2020 documented as of this encounter (statuses as of 03/23/2023) [address]15-2021 History of Past illness Narrative* Problem Noted Date Diagnosed Date Resolved Date Sacroiliac pain 10/26/2020 11/19/2020 Closed nondisplaced fracture of distal phalanx of finger with routine healing 10/26/2020 0 11/19/2020 documented as of this encounter (statuses as of 03/23/2023) [address]15-2021 History of Past illness Narrative* Problem Noted Date Diagnosed Date Resolved Date Sacroiliac pain 10/26/2020 11/19/2020 Closed nondisplaced fracture of distal phalanx of finger with routine healing 10/26/2020 0 11/19/2020 documented as of this encounter (statuses as of 03/25/2023) [address]15-2021 History of Past illness Narrative* Problem Noted Date Diagnosed Date Resolved Date Sacroiliac pain 10/26/2020 11/19/2020 Closed nondisplaced fracture of distal phalanx of finger with routine healing 10/26/2020 0 11/19/2020 documented as of this encounter (statuses as of 03/27/2023) [address]15-2021 History of Past illness Narrative* Problem Noted Date Diagnosed Date Resolved Date Sacroiliac pain 10/26/2020 11/19/2020 Closed nondisplaced fracture of distal phalanx of finger with routine healing 10/26/2020 0 11/19/2020 documented as of this encounter (statuses as of 03/30/2023) [address]15-2021 History of Past illness Narrative* Problem Noted Date Diagnosed Date Resolved Date Sacroiliac pain 10/26/2020 11/19/2020 Closed nondisplaced fracture of distal phalanx of finger with routine healing 10/26/2020 0 11/19/2020 documented as of this encounter (statuses as of 04/03/2023) [address]15-2021 History of Past illness Narrative* Problem Noted Date Diagnosed Date Resolved Date Sacroiliac pain 10/26/2020 11/19/2020 Closed nondisplaced fracture of distal phalanx of finger with routine healing 10/26/2020 0 11/19/2020 documented as of this encounter (statuses as of 04/07/2023) [address]15-2021 History of Past illness Narrative* Problem Noted Date Diagnosed Date Resolved Date Sacroiliac pain 10/26/2020 11/19/2020 Closed nondisplaced fracture of distal phalanx of finger with routine healing 10/26/2020 0 11/19/2020 documented as of this encounter (statuses as of 04/10/2023) [address]15-2021 History of Past illness Narrative* Problem Noted Date Diagnosed Date Resolved Date Sacroiliac pain 10/26/2020 11/19/2020 Closed nondisplaced fracture of distal phalanx of finger with routine healing 10/26/2020 0 11/19/2020 documented as of this encounter (statuses as of 04/19/2023) [address]15-2021 History of Past illness Narrative* Problem Noted Date Diagnosed Date Resolved Date Sacroiliac pain 10/26/2020 11/19/2020 Closed nondisplaced fracture of distal phalanx of finger with routine healing 10/26/2020 0 11/19/2020 documented as of this encounter (statuses as of 05/23/2023) [address]15-2021 History of Past illness Narrative* Problem Noted Date Diagnosed Date Resolved Date Sacroiliac pain 10/26/2020 11/19/2020 Closed nondisplaced fracture of distal phalanx of finger with routine healing 10/26/2020 0 11/19/2020 documented as of this encounter (statuses as of 05/23/2023) [address]15-2021 History of Past illness Narrative* Problem Noted Date Diagnosed Date Resolved Date Sacroiliac pain 10/26/2020 11/19/2020 Closed nondisplaced fracture of distal phalanx of finger with routine healing 10/26/2020 0 11/19/2020 documented as of this encounter (statuses as of 05/29/2023) [address]15-2021 History of Past illness Narrative* Problem Noted Date Diagnosed Date Resolved Date Sacroiliac pain 10/26/2020 11/19/2020 Closed nondisplaced fracture of distal phalanx of finger with routine healing 10/26/2020 0 11/19/2020 documented as of this encounter (statuses as of 05/30/2023) [address]15-2021 History of Past illness Narrative* Problem Noted Date Diagnosed Date Resolved Date Sacroiliac pain 10/26/2020 11/19/2020 Closed nondisplaced fracture of distal phalanx of finger with routine healing 10/26/2020 0 11/19/2020 documented as of this encounter (statuses as of 06/05/2023) [address]15-2021 History of Past illness Narrative* Problem Noted Date Diagnosed Date Resolved Date Sacroiliac pain 10/26/2020 11/19/2020 Closed nondisplaced fracture of distal phalanx of finger with routine healing 10/26/2020 0 11/19/2020 documented as of this encounter (statuses as of 06/19/2023) [address]15-2021 History of Past illness Narrative* Problem Noted Date Diagnosed Date Resolved Date Sacroiliac pain 10/26/2020 11/19/2020 Closed nondisplaced fracture of distal phalanx of finger with routine healing 10/26/2020 0 11/19/2020 documented as of this encounter (statuses as of 06/19/2023) [address]15-2021 History of Past illness Narrative* Problem Noted Date Diagnosed Date Resolved Date Sacroiliac pain 10/26/2020 11/19/2020 Closed nondisplaced fracture of distal phalanx of finger with routine healing 10/26/2020 0 11/19/2020 documented as of this encounter (statuses as of 06/19/2023) [address]-2021 History of Past illness Narrative* Problem Noted Date Diagnosed Date Resolved Date Sacroiliac pain 10/26/2020 11/19/2020 Closed nondisplaced fracture of distal phalanx of finger with routine healing 10/26/2020 0 11/19/2020 documented as of this encounter (statuses as of 07/03/2023) [address]-2021 History of Past illness Narrative* Problem Noted Date Diagnosed Date Resolved Date Sacroiliac pain 10/26/2020 11/19/2020 Closed nondisplaced fracture of distal phalanx of finger with routine healing 10/26/2020 0 11/19/2020 documented as of this encounter (statuses as of 07/05/2023) [facility]2021 History of Past illness Narrative* Problem Noted Date Diagnosed Date Resolved Date Sacroiliac pain 10/26/2020 11/19/2020 Closed nondisplaced fracture of distal phalanx of finger with routine healing 10/26/2020 0 11/19/2020 documented as of this encounter (statuses as of 07/20/2023) [facility]21 History of Past illness Narrative* Problem Noted Date Diagnosed Date Resolved Date Sacroiliac pain 10/26/2020 11/19/2020 Closed nondisplaced fracture of distal phalanx of finger with routine healing 10/26/2020 0 11/19/2020 documented as of this encounter (statuses as of 07/20/2023) [facility]21 History of Past illness Narrative* Problem Noted Date Diagnosed Date Resolved Date Sacroiliac pain 10/26/2020 11/19/2020 Closed nondisplaced fracture of distal phalanx of finger with routine healing 10/26/2020 0 11/19/2020 documented as of this encounter (statuses as of 08/27/2023) [facility]21 History of Past illness Narrative* Problem Noted Date Diagnosed Date Resolved Date Sacroiliac pain 10/26/2020 11/19/2020 Closed nondisplaced fracture of distal phalanx of finger with routine healing 10/26/2020 0 11/19/2020 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 04/10/2019 09/01/2023 Last Assessment & Plan: Assessment: doesn't wear CPAP documented as of this encounter (statuses as of 09/18/2023) [facility]21 History of Past illness Narrative* Problem Noted Date Diagnosed Date Resolved Date Sacroiliac pain 10/26/2020 11/19/2020 Closed nondisplaced fracture of distal phalanx of finger with routine healing 10/26/2020 0 11/19/2020 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 04/10/2019 09/01/2023 Last Assessment & Plan: Assessment: doesn't wear CPAP documented as of this encounter (statuses as of 10/13/2023) [facility]21 History of Past illness Narrative* Problem Noted Date Diagnosed Date Resolved Date Sacroiliac pain 10/26/2020 11/19/2020 Closed nondisplaced fracture of distal phalanx of finger with routine healing 10/26/2020 0 11/19/2020 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 04/10/2019 09/01/2023 Last Assessment & Plan: Assessment: doesn't wear CPAP documented as of this encounter (statuses as of 10/13/2023) [facility]21 History of Past illness Narrative* Problem Noted Date Diagnosed Date Resolved Date Sacroiliac pain 10/26/2020 11/19/2020 Closed nondisplaced fracture of distal phalanx of finger with routine healing 10/26/2020 0 11/19/2020 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 04/10/2019 09/01/2023 Last Assessment & Plan: Assessment: doesn't wear CPAP documented as of this encounter (statuses as of 10/23/2023) [facility]21 History of Past illness Narrative* Problem Noted Date Diagnosed Date Resolved Date Sacroiliac pain 10/26/2020 11/19/2020 Closed nondisplaced fracture of distal phalanx of finger with routine healing 10/26/2020 0 11/19/2020 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 04/10/2019 09/01/2023 Last Assessment & Plan: Assessment: doesn't wear CPAP documented as of this encounter (statuses as of 10/30/2023) [facility]21 History of Past illness Narrative* Problem Noted Date Diagnosed Date Resolved Date Sacroiliac pain 10/26/2020 11/19/2020 Closed nondisplaced fracture of distal phalanx of finger with routine healing 10/26/2020 0 11/19/2020 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 04/10/2019 09/01/2023 Last Assessment & Plan: Assessment: doesn't wear CPAP documented as of this encounter (statuses as of 11/07/2023) [facility]21 History of Past illness Narrative* Problem Noted Date Diagnosed Date Resolved Date Sacroiliac pain 10/26/2020 11/19/2020 Closed nondisplaced fracture of distal phalanx of finger with routine healing 10/26/2020 0 11/19/2020 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 04/10/2019 09/01/2023 Last Assessment & Plan: Assessment: doesn't wear CPAP documented as of this encounter (statuses as of 11/16/2023) [facility] History of Past illness Narrative* Problem Noted Date Diagnosed Date Resolved Date Sacroiliac pain 10/26/2020 11/19/2020 Closed nondisplaced fracture of distal phalanx of finger with routine healing 10/26/2020 0 11/19/2020 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 04/10/2019 09/01/2023 Last Assessment & Plan: Assessment: doesn't wear CPAP documented as of this encounter (statuses as of 11/24/2023) [facility]12-[facility]2020 History of Present illness Narrative* Hedy Huitron (Rt), Tech - 07/22/2020 1:40 PM EST Radiology Service Progress Note PATIENT NAME: Kemal Cantu DATE OF SERVICE: July 22, 2020 TIME: 1:50 PM PATIENT IDENTITY VERIFICATION COMPLETED USING TWO (2) IDENTIFIERS: Name and Date of confirmedby patient verbally. FALL SCREENING: Has the patient had 2 falls in the last year or 1 fall with injury or currently using an Ambulatory Assistive Device (Walker, Cane, Wheelchair, Crutches, etc.)? No PATIENT GENDER DATA: Female. status: : No status: NO. PATIENT RELEVANT IMPLANT DATA REVIEWED: Not Applicable RADIOLOGY DEPARTMENT: General X-ray: Exam(s) Completed: Upper Extremity X- Ray(s): Hand, left : and facial bones 3 veiw PERIPHERAL IV DATA: Not applicable SIGNED BY: RT Deborah July 22, 2020 1:50 PM [facility] Diagnosis Coronary artery disease due to calcified coronary lesion- Primary Angina pectoris, crescendo (HCC) Intermediate coronary syndrome Type 2 diabetes mellitus without complication, without long-term current use of insulin (HCC) documented in this encounter [facility] Work Phone: Evaluation note* Diagnosis Dietary counseling- Primary Dietary surveillance and counseling Class 3 severe obesity without serious comorbidity with body mass index (BMI) of 45.0 to 49.9 in adult, unspecified obesity type (HCC) Weight loss counseling, encounter for Dietary surveillance and counseling Gastroesophageal reflux disease with esophagitis, unspecified whether hemorrhage Type 2 diabetes mellitus with other specified complication, without long-term current use of insulin ([facility]) [facility] Degeneration of lumbar or lumbosacral intervertebral disc- Primary Somatic dysfunction of lumbar region Nonallopathic lesion of lumbar region, not elsewhere classified [facility]* Diagnosis Restless legs- Primary Restless legs syndrome (RLS) Iron deficiency anemia, unspecified iron deficiency anemia type MAURICE (obstructive sleep apnea) Obstructive sleep apnea (adult) (pediatric) RLS (restless legs syndrome) Restless legs syndrome (RLS) [facility]* Diagnosis Diarrhea, unspecified type- Primary Dysphagia, unspecified type [facility] Diagnosis Right hip pain- Primary Pain in joint, pelvic region and thigh Primary osteoarthritis of right hip Primary localized osteoarthrosis, pelvic region and thigh Status post total bilateral knee replacement [facility] Diagnosis Status post total bilateral knee replacement [facility] Diagnosis Type 2 diabetes mellitus, without long-term current use of insulin (HCC) [facility] Diagnosis Hypothyroidism, unspecified type- Primary Mixed hyperlipidemia [facility]* Diagnosis Fallen arches Flat foot documented in this encounter [facility] note* Diagnosis Class 3 severe obesity without serious comorbidity with body mass index (BMI) of 45.0 to 49.9 in adult, unspecified obesity type (HCC)- Primary Weight loss counseling, encounter for Dietary surveillance and counseling Gastroesophageal reflux disease with esophagitis, unspecified whether hemorrhage Type 2 diabetes mellitus with other specified complication, without long-term current use of insulin ([facility]) Dietary counseling Dietary surveillance and counseling documented in this encounter [facility] note* Diagnosis Class 3 severe obesity without serious comorbidity with body mass index (BMI) of 45.0 to 49.9 in adult, unspecified obesity type (HCC)- Primary Weight loss counseling, encounter for Dietary surveillance and counseling Gastroesophageal reflux disease with esophagitis, unspecified whether hemorrhage Type 2 diabetes mellitus with other specified complication, without long-term current use of insulin ([facility]) Dietary counseling Dietary surveillance and counseling Vaginal prolapse Unspecified prolapse of vaginal garrett History of hysterectomy 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 Unspecified prolapse of vaginal garrett Cystocele, midline Rectocele Preoperative examination Preoperative examination, unspecified Vaginal atrophy Postmenopausal atrophic vaginitis documented in this encounter [facility] note* Diagnosis Pre-op chest exam- Primary Pre-operative respiratory examination Vaginal prolapse Unspecified prolapse of vaginal garrett History of hysterectomy 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 Unspecified prolapse of vaginal garrett Cystocele, midline Rectocele Preoperative examination Preoperative examination, unspecified Vaginal atrophy Postmenopausal atrophic vaginitis documented in this encounter [facility] note* Diagnosis Preoperative examination- Primary Preoperative examination, unspecified Cystocele, midline Rectocele Vaginal vault prolapse Unspecified prolapse of vaginal garrett History of heart artery stent Postsurgical percutaneous transluminal coronary angioplasty status Vaginal prolapse Unspecified prolapse of vaginal garrett History of hysterectomy 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 Unspecified prolapse of vaginal garrett Cystocele, midline Rectocele Preoperative examination Preoperative examination, unspecified Vaginal atrophy Postmenopausal atrophic vaginitis documented in this encounter [facility] note* Diagnosis Onset Date Resolution Status Atherosclerotic heart diseas e of mod[place] coronary artery without angina pectoris acute Rapid palpitations acute Essential hypertension chron ic Hyperlipidemia chronic Encounter for pre-operative cardiovascular clearance acute Essential hypertension chron ic Hyperlipidemia chronic Left bundle branch block (LBBB) chronic History of coronary artery stent placement March 02, 2021 resolved [facility] Work Phone: Evaluation note* Diagnosis Pre-operative examination- Primary Preoperative examination, unspecified Vaginal prolapse Unspecified prolapse of vaginal garrett Anxiety and depression Dysthymic disorder Chronic intractable headache, unspecified headache type Chronic kidney disease, unspecified CKD stage Class 3 severe obesity due to excess calories with serious comorbidity and body mass index (BMI) of 40.0 to 44.9 in adult (HCC) 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) Essential hypertension, benign Fibromyalgia Mylagia and myositis, unspecified Gastroesophageal reflux disease with esophagitis, unspecified whether hemorrhage Hypothyroidism, unspecified type Iron deficiency anemia, unspecified iron deficiency anemia type Mixed hyperlipidemia 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 Obstructive sleep apnea (adult) (pediatric) RLS (restless legs syndrome) Restless legs syndrome (RLS) Type 2 diabetes mellitus with other specified complication, without long-term current use of insulin ([facility]) 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 Spinal stenosis, lumbar region, with neurogenic claudication Vaginal prolapse Unspecified prolapse of vaginal garrett History of hysterectomy 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 Unspecified prolapse of vaginal garrett Cystocele, midline Rectocele Preoperative examination Preoperative examination, unspecified Vaginal atrophy Postmenopausal atrophic vaginitis [facility]* Diagnosis Educational circumstances- Primary Educational circumstance Vaginal prolapse Unspecified prolapse of vaginal garrett History of hysterectomy 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 Unspecified prolapse of vaginal garrett Cystocele, midline Rectocele Preoperative examination Preoperative examination, unspecified Vaginal atrophy Postmenopausal atrophic vaginitis [facility]* Diagnosis Hypothyroidism, unspecified type Vaginal prolapse Unspecified prolapse of vaginal garrett History of hysterectomy 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 Unspecified prolapse of vaginal garrett Cystocele, midline Rectocele Preoperative examination Preoperative examination, unspecified Vaginal atrophy Postmenopausal atrophic vaginitis [facility]* Diagnosis Class 3 severe obesity without serious comorbidity with body mass index (BMI) of 45.0 to 49.9 in adult, unspecified obesity type (HCC)- Primary Gastroesophageal reflux disease with esophagitis, unspecified whether hemorrhage Type 2 diabetes mellitus with other specified complication, without long-term current use of insulin ([facility]) Dietary counseling Dietary surveillance and counseling RLS (restless legs syndrome)- Primary Restless legs syndrome (RLS) Iron deficiency anemia, unspecified iron deficiency anemia type MAURICE (obstructive sleep apnea) Obstructive sleep apnea (adult) (pediatric) [facility]* Diagnosis RLS (restless legs syndrome)- Primary Restless legs syndrome (RLS) Iron deficiency anemia, unspecified iron deficiency anemia type MAURICE (obstructive sleep apnea) Obstructive sleep apnea (adult) (pediatric) documented [facility]* Diagnosis Vaginal vault prolapse- Primary Unspecified prolapse of vaginal garrett Encounter for urine test Laboratory examination, unspecified Rectocele Cystocele, midline Preoperative examination Preoperative examination, unspecified Mixed stress and urge incontinence Urinary urgency Urgency of urination Urinary frequency [facility]* Diagnosis Post-operative state- Primary Other postprocedural status Vaginal discharge Leukorrhea, not specified as infective documented [facility]* Diagnosis Class 3 severe obesity without serious comorbidity with body mass index (BMI) of 45.0 to 49.9 in adult, unspecified obesity type (HCC)- Primary Gastroesophageal reflux disease with esophagitis, unspecified whether hemorrhage Type 2 diabetes mellitus with other specified complication, without long-term current use of insulin ([facility]) Dietary counseling Dietary surveillance and counseling [facility]* Diagnosis Onset Date Resolution Status Encounter for pre-operative cardiovascular clearance acute Essential hypertension chron ic Hyperlipidemia chronic Left bundle branch block (LBBB) chronic History of coronary artery stent placement March 02, 2021 resolved [facility] Work Phone: Evaluation note* Diagnosis Essential hypertension, benign- Primary Type 2 diabetes mellitus with other specified complication, without long-term current use of insulin ([facility]) Acute non-recurrent frontal sinusitis Hypothyroidism, unspecified type documented in this encounter [facility] note* Diagnosis RLS (restless legs syndrome) Restless legs syndrome (RLS) [facility]* Diagnosis Class 3 severe obesity without serious comorbidity with body mass index (BMI) of 45.0 to 49.9 in adult, unspecified obesity type (HCC)- Primary Gastroesophageal reflux disease with esophagitis, unspecified whether hemorrhage Type 2 diabetes mellitus with other specified complication, without long-term current use of insulin ([facility]) Dietary counseling Dietary surveillance and counseling documented in this encounter [facility] note* Diagnosis Post-operative state- Primary Other postprocedural status Urinary urgency Urgency of urination Urinary frequency [facility] RLS (restless legs syndrome)- Primary Restless legs syndrome (RLS) Iron deficiency anemia, unspecified iron deficiency anemia type MAURICE (obstructive sleep apnea) Obstructive sleep apnea (adult) (pediatric) [facility] Class 3 severe obesity without serious comorbidity with body mass index (BMI) of 45.0 to 49.9 in adult, unspecified obesity type (HCC)- Primary Gastroesophageal reflux disease with esophagitis, unspecified whether hemorrhage Type 2 diabetes mellitus with other specified complication, without long-term current use of insulin ([facility]) Dietary counseling Dietary surveillance and counseling Weight loss counseling, encounter for Dietary surveillance and counseling [facility] Hypothyroidism, unspecified type [facility] Diagnosis Medicare annual wellness visit, subsequent- Primary Routine general medical examination at a health care facility Hypothyroidism, unspecified type Essential hypertension, benign Type 2 diabetes mellitus with other specified complication, without long-term current use of insulin (HCC) Mixed hyperlipidemia 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) RLS (restless legs syndrome)- Primary Restless legs syndrome (RLS) MAURICE (obstructive sleep apnea) Obstructive sleep apnea (adult) (pediatric) [facility] Diagnosis Encounter for screening mammogram for malignant neoplasm of breast- Primary Other screening mammogram RLS (restless legs syndrome)- Primary Restless legs syndrome (RLS) MAURICE (obstructive sleep apnea) Obstructive sleep apnea (adult) (pediatric) [facility]* Diagnosis Primary osteoarthritis of right hip- Primary Primary localized osteoarthrosis, pelvic region and thigh Primary osteoarthritis of left hip Primary localized osteoarthrosis, pelvic region and thigh RLS (restless legs syndrome)- Primary Restless legs syndrome (RLS) MAURICE (obstructive sleep apnea) Obstructive sleep apnea (adult) (pediatric) [facility]* Diagnosis RLS (restless legs syndrome)- Primary Restless legs syndrome (RLS) MAURICE (obstructive sleep apnea) Obstructive sleep apnea (adult) (pediatric) [facility]* Diagnosis Onychomycosis- Primary Dermatophytosis of nail Callus Corns and callosities Hammer toes of both feet Other diabetic neurological complication associated with type 2 diabetes mellitus (HCC) Class 3 severe obesity without serious comorbidity with body mass index (BMI) of 45.0 to 49.9 in adult, unspecified obesity type (HCC) [facility]* Diagnosis Class 3 severe obesity without serious comorbidity with body mass index (BMI) of 45.0 to 49.9 in adult, unspecified obesity type (HCC)- Primary Gastroesophageal reflux disease with esophagitis, unspecified whether hemorrhage Type 2 diabetes mellitus with other specified complication, without long-term current use of insulin ([facility]) Dietary counseling Dietary surveillance and counseling Weight loss counseling, encounter for Dietary surveillance and counseling [facility]* Diagnosis Class 3 severe obesity without serious comorbidity with body mass index (BMI) of 45.0 to 49.9 in adult, unspecified obesity type (HCC)- Primary Gastroesophageal reflux disease with esophagitis, unspecified whether hemorrhage Type 2 diabetes mellitus with other specified complication, without long-term current use of insulin ([facility]) Dietary counseling Dietary surveillance and counseling [facility]* Diagnosis Open wound of toe, initial encounter- Primary Class 3 severe obesity without serious comorbidity with body mass index (BMI) of 45.0 to 49.9 in adult, unspecified obesity type (HCC) [facility]* Diagnosis Primary osteoarthritis of right hip- Primary Primary localized osteoarthrosis, pelvic region and thigh Primary osteoarthritis of right hip Primary localized osteoarthrosis, pelvic region and thigh [facility]* Diagnosis Spinal stenosis of lumbar region with neurogenic claudication- Primary Spinal stenosis, lumbar region, with neurogenic claudication Chronic low back pain, unspecified back pain laterality, unspecified whether sciatica present Primary osteoarthritis of right hip Primary localized osteoarthrosis, pelvic region and thigh [facility]* Diagnosis Primary osteoarthritis of right hip- Primary Primary localized osteoarthrosis, pelvic region and thigh Chronic pain of right hip Primary osteoarthritis of right hip Primary localized osteoarthrosis, pelvic region and thigh [facility]* Diagnosis Impaired fasting glucose- Primary Primary osteoarthritis of right hip Primary localized osteoarthrosis, pelvic region and thigh [facility]* Diagnosis Pre-op evaluation- Primary Preoperative examination, unspecified RLS (restless legs syndrome) Restless legs syndrome (RLS) Fibromyalgia Mylagia and myositis, unspecified Essential hypertension, benign Mixed hyperlipidemia 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 ([facility]) LBBB (left bundle branch block) Other left bundle branch block 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 Obstructive sleep apnea (adult) (pediatric) Other irritable bowel syndrome Anxiety and depression Dysthymic disorder Class 3 severe obesity due to excess calories with serious comorbidity and body mass index (BMI) of 40.0 to 44.9 in adult ([facility]) Urinary frequency Primary osteoarthritis of right hip Primary localized osteoarthrosis, pelvic region and thigh [facility]* Diagnosis Primary osteoarthritis of right hip- Primary Primary localized osteoarthrosis, pelvic region and thigh [facility]* Diagnosis CKD (chronic kidney disease) stage 1, GFR 90 ml/min or greater- Primary Chronic kidney disease, Stage I [facility]* Diagnosis Primary osteoarthritis of right hip- Primary Primary localized osteoarthrosis, pelvic region and thigh Primary osteoarthritis of left hip Primary localized osteoarthrosis, pelvic region and thigh Status post total replacement of right hip [facility]* Diagnosis History of right hip replacement- Primary [facility]* Diagnosis Class 3 severe obesity without serious comorbidity with body mass index (BMI) of 45.0 to 49.9 in adult, unspecified obesity type ([facility])- Primary Gastroesophageal reflux disease with esophagitis, unspecified whether hemorrhage Type 2 diabetes mellitus with other specified complication, without long-term current use of insulin ([facility]) Dietary counseling Dietary surveillance and counseling [facility]* Diagnosis Primary osteoarthritis of right hip- Primary Primary localized osteoarthrosis, pelvic region and thigh History of right hip replacement [facility] Diagnosis History of right hip replacement- Primary History of total bilateral knee replacement [facility]* Diagnosis Encounter for screening mammogram for malignant neoplasm of breast Other screening mammogram [facility] Diagnosis Primary osteoarthritis of right hip Primary localized osteoarthrosis, pelvic region and thigh Status post total replacement of right hip [facility] Diagnosis Primary osteoarthritis of left hip Primary localized osteoarthrosis, pelvic region and thigh Status post total hip replacement, right [facility]* Diagnosis Primary osteoarthritis of right hip Primary localized osteoarthrosis, pelvic region and thigh documented in this encounter [facility] note* Diagnosis Class 3 severe obesity without serious comorbidity with body mass index (BMI) of 45.0 to 49.9 in adult, unspecified obesity type (HCC)- Primary Gastroesophageal reflux disease with esophagitis, unspecified whether hemorrhage Type 2 diabetes mellitus with other specified complication, without long-term current use of insulin ([facility]) Dietary counseling Dietary surveillance and counseling Weight loss counseling, encounter for Dietary surveillance and counseling documented in this encounter [facility] note* Diagnosis Essential hypertension, benign- Primary 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) Acute non-recurrent sinusitis, unspecified location Hypothyroidism, unspecified type Type 2 diabetes mellitus without complication, without long-term current use of insulin ([facility]) documented in this encounter [facility] note* Diagnosis Class 3 severe obesity without serious comorbidity with body mass index (BMI) of 45.0 to 49.9 in adult, unspecified obesity type (HCC)- Primary Gastroesophageal reflux disease with esophagitis, unspecified whether hemorrhage Type 2 diabetes mellitus with other specified complication, without long-term current use of insulin ([facility]) Dietary counseling Dietary surveillance and counseling Weight loss counseling, encounter for Dietary surveillance and counseling documented in this encounter [facility] note* Diagnosis Type 2 diabetes mellitus without complication, without long-term current use of insulin (HCC)- Primary [facility]* Diagnosis Type 2 diabetes mellitus with other specified complication, without long-term current use of insulin (HCC)- Primary [facility]* Diagnosis Class 3 severe obesity without serious comorbidity with body mass index (BMI) of 45.0 to 49.9 in adult, unspecified obesity type (HCC)- Primary Gastroesophageal reflux disease with esophagitis, unspecified whether hemorrhage Type 2 diabetes mellitus with other specified complication, without long-term current use of insulin ([facility]) Dietary counseling Dietary surveillance and counseling Weight loss counseling, encounter for Dietary surveillance and counseling documented in this encounter [facility] note* Diagnosis Hypothyroidism, unspecified type documented in this encounter [facility] note* Diagnosis RLS (restless legs syndrome)- Primary Restless legs syndrome (RLS) Iron deficiency Iron deficiency anemia, unspecified Vitamin D deficiency Unspecified vitamin D deficiency MAURICE (obstructive sleep apnea) Obstructive sleep apnea (adult) (pediatric) Class 3 severe obesity with body mass index (BMI) of 40.0 to 44.9 in adult, unspecified obesity type, unspecified whether serious comorbidity present (HCC) documented in this encounter [facility] note* Diagnosis Type 2 diabetes mellitus, without long-term current use of insulin (HCC) Mixed hyperlipidemia documented in this encounter [facility] note* Diagnosis Type 2 diabetes mellitus without complication, without long-term current use of insulin (HCC)- Primary Mixed hyperlipidemia Essential hypertension, benign Hypothyroidism, unspecified type Intertrigo Other specified erythematous condition Encounter for screening mammogram for malignant neoplasm of breast Other screening mammogram documented in this encounter [facility] note* Diagnosis Type 2 diabetes mellitus without complication, without long-term current use of insulin (HCC) documented in this encounter [facility] note* Diagnosis Encounter for screening mammogram for malignant neoplasm of breast Other screening mammogram documented in this encounter [facility] note* Diagnosis Pre-operative examination- Primary Preoperative examination, unspecified Fuchs' endothelial dystrophy Endothelial corneal dystrophy Type 2 diabetes mellitus with other specified complication, without long-term current use of insulin (HCC) Essential hypertension, benign Mixed hyperlipidemia Hypothyroidism, unspecified type Iron deficiency anemia, unspecified iron deficiency anemia type Anxiety and depression Dysthymic disorder Chronic back pain, unspecified back location, unspecified back pain laterality Primary osteoarthritis involving multiple joints Gastroesophageal reflux disease, esophagitis presence not specified Other irritable bowel syndrome 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 Obstructive sleep apnea (adult) (pediatric) Chronic intractable headache, unspecified headache type RLS (restless legs syndrome) Restless legs syndrome (RLS) Fibromyalgia Mylagia and myositis, unspecified Morbid obesity (HCC) Morbid obesity Pre-operative examination- Primary Preoperative examination, unspecified Colon cancer screening Special screening for malignant neoplasms, colon Chronic intractable headache, unspecified headache type Fibromyalgia Mylagia and myositis, unspecified RLS (restless legs syndrome) Restless legs syndrome (RLS) Essential hypertension, benign Mixed hyperlipidemia 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 Obstructive sleep apnea (adult) (pediatric) Gastroesophageal reflux disease, unspecified whether esophagitis present Other irritable bowel syndrome Hypothyroidism, unspecified type Type 2 diabetes mellitus with other specified complication, without long-term current use of insulin (HCC) Iron deficiency anemia, unspecified iron deficiency anemia type Anxiety and depression Dysthymic disorder Chronic back pain, unspecified back location, unspecified back pain laterality Class 3 severe obesity without serious comorbidity with body mass index (BMI) of 45.0 to 49.9 in adult, unspecified obesity type (HCC) Chronic kidney disease, unspecified CKD stage 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 ([facility]) Pre-operative examination- Primary Preoperative examination, unspecified Vaginal prolapse Unspecified prolapse of vaginal garrett Anxiety and depression Dysthymic disorder Chronic intractable headache, unspecified headache type Chronic kidney disease, unspecified CKD stage Class 3 severe obesity due to excess calories with serious comorbidity and body mass index (BMI) of 40.0 to 44.9 in adult ([facility]) 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) Essential hypertension, benign Fibromyalgia Mylagia and myositis, unspecified Gastroesophageal reflux disease with esophagitis, unspecified whether hemorrhage Hypothyroidism, unspecified type Iron deficiency anemia, unspecified iron deficiency anemia type Mixed hyperlipidemia 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 Obstructive sleep apnea (adult) (pediatric) RLS (restless legs syndrome) Restless legs syndrome (RLS) Type 2 diabetes mellitus with other specified complication, without long-term current use of insulin ([facility]) 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 Spinal stenosis, lumbar region, with neurogenic claudication Pre-op evaluation- Primary Preoperative examination, unspecified RLS (restless legs syndrome) Restless legs syndrome (RLS) Fibromyalgia Mylagia and myositis, unspecified Essential hypertension, benign Mixed hyperlipidemia 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 ([facility]) LBBB (left bundle branch block) Other left bundle branch block 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 Obstructive sleep apnea (adult) (pediatric) Other irritable bowel syndrome Anxiety and depression Dysthymic disorder Class 3 severe obesity due to excess calories with serious comorbidity and body mass index (BMI) of 40.0 to 44.9 in adult (HCC) Urinary frequency Class 3 severe obesity without serious comorbidity with body mass index (BMI) of 45.0 to 49.9 in adult, unspecified obesity type ([facility])- Primary Gastroesophageal reflux disease with esophagitis, unspecified whether hemorrhage Type 2 diabetes mellitus with other specified complication, without long-term current use of insulin ([facility]) Dietary counseling Dietary surveillance and [facility] Diagnosis Pre-operative examination- Primary Preoperative examination, unspecified Fuchs' endothelial dystrophy Endothelial corneal dystrophy Type 2 diabetes mellitus with other specified complication, without long-term current use of insulin (HCC) Essential hypertension, benign Mixed hyperlipidemia Hypothyroidism, unspecified type Iron deficiency anemia, unspecified iron deficiency anemia type Anxiety and depression Dysthymic disorder Chronic back pain, unspecified back location, unspecified back pain laterality Primary osteoarthritis involving multiple joints Gastroesophageal reflux disease, esophagitis presence not specified Other irritable bowel syndrome 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 Obstructive sleep apnea (adult) (pediatric) Chronic intractable headache, unspecified headache type RLS (restless legs syndrome) Restless legs syndrome (RLS) Fibromyalgia Mylagia and myositis, unspecified Morbid obesity (HCC) Morbid obesity Pre-operative examination- Primary Preoperative examination, unspecified Colon cancer screening Special screening for malignant neoplasms, colon Chronic intractable headache, unspecified headache type Fibromyalgia Mylagia and myositis, unspecified RLS (restless legs syndrome) Restless legs syndrome (RLS) Essential hypertension, benign Mixed hyperlipidemia 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 Obstructive sleep apnea (adult) (pediatric) Gastroesophageal reflux disease, unspecified whether esophagitis present Other irritable bowel syndrome Hypothyroidism, unspecified type Type 2 diabetes mellitus with other specified complication, without long-term current use of insulin (HCC) Iron deficiency anemia, unspecified iron deficiency anemia type Anxiety and depression Dysthymic disorder Chronic back pain, unspecified back location, unspecified back pain laterality Class 3 severe obesity without serious comorbidity with body mass index (BMI) of 45.0 to 49.9 in adult, unspecified obesity type (HCC) Chronic kidney disease, unspecified CKD stage 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) Pre-operative examination- Primary Preoperative examination, unspecified Vaginal prolapse Unspecified prolapse of vaginal garrett Anxiety and depression Dysthymic disorder Chronic intractable headache, unspecified headache type Chronic kidney disease, unspecified CKD stage Class 3 severe obesity due to excess calories with serious comorbidity and body mass index (BMI) of 40.0 to 44.9 in adult (HCC) 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) Essential hypertension, benign Fibromyalgia Mylagia and myositis, unspecified Gastroesophageal reflux disease with esophagitis, unspecified whether hemorrhage Hypothyroidism, unspecified type Iron deficiency anemia, unspecified iron deficiency anemia type Mixed hyperlipidemia 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 Obstructive sleep apnea (adult) (pediatric) RLS (restless legs syndrome) Restless legs syndrome (RLS) Type 2 diabetes mellitus with other specified complication, without long-term current use of insulin (HCC) 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 Spinal stenosis, lumbar region, with neurogenic claudication Pre-op evaluation- Primary Preoperative examination, unspecified RLS (restless legs syndrome) Restless legs syndrome (RLS) Fibromyalgia Mylagia and myositis, unspecified Essential hypertension, benign Mixed hyperlipidemia 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) LBBB (left bundle branch block) Other left bundle branch block 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 Obstructive sleep apnea (adult) (pediatric) Other irritable bowel syndrome Anxiety and depression Dysthymic disorder Class 3 severe obesity due to excess calories with serious comorbidity and body mass index (BMI) of 40.0 to 44.9 in adult (HCC) Urinary frequency Class 3 severe obesity without serious comorbidity with body mass index (BMI) of 45.0 to 49.9 in adult, unspecified obesity type (HCC)- Primary Gastroesophageal reflux disease with esophagitis, unspecified whether hemorrhage Dietary counseling Dietary surveillance and counseling Weight loss counseling, encounter for Dietary surveillance and counseling Type 2 diabetes mellitus with other specified complication, without long-term current use of insulin (HCC) [facility] Pre-operative examination- Primary Preoperative examination, unspecified Fuchs' endothelial dystrophy Endothelial corneal dystrophy Type 2 diabetes mellitus with other specified complication, without long-term current use of insulin (HCC) Essential hypertension, benign Mixed hyperlipidemia Hypothyroidism, unspecified type Iron deficiency anemia, unspecified iron deficiency anemia type Anxiety and depression Dysthymic disorder Chronic back pain, unspecified back location, unspecified back pain laterality Primary osteoarthritis involving multiple joints Gastroesophageal reflux disease, esophagitis presence not specified Other irritable bowel syndrome 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 Obstructive sleep apnea (adult) (pediatric) Chronic intractable headache, unspecified headache type RLS (restless legs syndrome) Restless legs syndrome (RLS) Fibromyalgia Mylagia and myositis, unspecified Morbid obesity (HCC) Morbid obesity Pre-operative examination- Primary Preoperative examination, unspecified Colon cancer screening Special screening for malignant neoplasms, colon Chronic intractable headache, unspecified headache type Fibromyalgia Mylagia and myositis, unspecified RLS (restless legs syndrome) Restless legs syndrome (RLS) Essential hypertension, benign Mixed hyperlipidemia 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 Obstructive sleep apnea (adult) (pediatric) Gastroesophageal reflux disease, unspecified whether esophagitis present Other irritable bowel syndrome Hypothyroidism, unspecified type Type 2 diabetes mellitus with other specified complication, without long-term current use of insulin (HCC) Iron deficiency anemia, unspecified iron deficiency anemia type Anxiety and depression Dysthymic disorder Chronic back pain, unspecified back location, unspecified back pain laterality Class 3 severe obesity without serious comorbidity with body mass index (BMI) of 45.0 to 49.9 in adult, unspecified obesity type (HCC) Chronic kidney disease, unspecified CKD stage 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) Low back pain, unspecified back pain laterality, unspecified chronicity, unspecified whether sciatica present Pre-operative examination- Primary Preoperative examination, unspecified Vaginal prolapse Unspecified prolapse of vaginal garrett Anxiety and depression Dysthymic disorder Chronic intractable headache, unspecified headache type Chronic kidney disease, unspecified CKD stage Class 3 severe obesity due to excess calories with serious comorbidity and body mass index (BMI) of 40.0 to 44.9 in adult ([facility]) 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) Essential hypertension, benign Fibromyalgia Mylagia and myositis, unspecified Gastroesophageal reflux disease with esophagitis, unspecified whether hemorrhage Hypothyroidism, unspecified type Iron deficiency anemia, unspecified iron deficiency anemia type Mixed hyperlipidemia 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 Obstructive sleep apnea (adult) (pediatric) RLS (restless legs syndrome) Restless legs syndrome (RLS) Type 2 diabetes mellitus with other specified complication, without long-term current use of insulin (HCC) 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 Spinal stenosis, lumbar region, with neurogenic claudication Pre-op evaluation- Primary Preoperative examination, unspecified RLS (restless legs syndrome) Restless legs syndrome (RLS) Fibromyalgia Mylagia and myositis, unspecified Essential hypertension, benign Mixed hyperlipidemia 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) LBBB (left bundle branch block) Other left bundle branch block 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 Obstructive sleep apnea (adult) (pediatric) Other irritable bowel syndrome Anxiety and depression Dysthymic disorder Class 3 severe obesity due to excess calories with serious comorbidity and body mass index (BMI) of 40.0 to 44.9 in adult ([facility]) [facility]inary [facility] Pre-operative examination- Primary Preoperative examination, unspecified Fuchs' endothelial dystrophy Endothelial corneal dystrophy Type 2 diabetes mellitus with other specified complication, without long-term current use of insulin (HCC) Essential hypertension, benign Mixed hyperlipidemia Hypothyroidism, unspecified type Iron deficiency anemia, unspecified iron deficiency anemia type Anxiety and depression Dysthymic disorder Chronic back pain, unspecified back location, unspecified back pain laterality Primary osteoarthritis involving multiple joints Gastroesophageal reflux disease, esophagitis presence not specified Other irritable bowel syndrome 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 Obstructive sleep apnea (adult) (pediatric) Chronic intractable headache, unspecified headache type RLS (restless legs syndrome) Restless legs syndrome (RLS) Fibromyalgia Mylagia and myositis, unspecified Morbid obesity (HCC) Morbid obesity Right hip pain Pain in joint, pelvic region and thigh Pre-operative examination- Primary Preoperative examination, unspecified Colon cancer screening Special screening for malignant neoplasms, colon Chronic intractable headache, unspecified headache type Fibromyalgia Mylagia and myositis, unspecified RLS (restless legs syndrome) Restless legs syndrome (RLS) Essential hypertension, benign Mixed hyperlipidemia 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 Obstructive sleep apnea (adult) (pediatric) Gastroesophageal reflux disease, unspecified whether esophagitis present Other irritable bowel syndrome Hypothyroidism, unspecified type Type 2 diabetes mellitus with other specified complication, without long-term current use of insulin (HCC) Iron deficiency anemia, unspecified iron deficiency anemia type Anxiety and depression Dysthymic disorder Chronic back pain, unspecified back location, unspecified back pain laterality Class 3 severe obesity without serious comorbidity with body mass index (BMI) of 45.0 to 49.9 in adult, unspecified obesity type (HCC) Chronic kidney disease, unspecified CKD stage 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) Pre-operative examination- Primary Preoperative examination, unspecified Vaginal prolapse Unspecified prolapse of vaginal garrett Anxiety and depression Dysthymic disorder Chronic intractable headache, unspecified headache type Chronic kidney disease, unspecified CKD stage Class 3 severe obesity due to excess calories with serious comorbidity and body mass index (BMI) of 40.0 to 44.9 in adult (HCC) 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) Essential hypertension, benign Fibromyalgia Mylagia and myositis, unspecified Gastroesophageal reflux disease with esophagitis, unspecified whether hemorrhage Hypothyroidism, unspecified type Iron deficiency anemia, unspecified iron deficiency anemia type Mixed hyperlipidemia 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 Obstructive sleep apnea (adult) (pediatric) RLS (restless legs syndrome) Restless legs syndrome (RLS) Type 2 diabetes mellitus with other specified complication, without long-term current use of insulin (HCC) 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 Spinal stenosis, lumbar region, with neurogenic claudication Pre-op evaluation- Primary Preoperative examination, unspecified RLS (restless legs syndrome) Restless legs syndrome (RLS) Fibromyalgia Mylagia and myositis, unspecified Essential hypertension, benign Mixed hyperlipidemia 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 ([facility]) LBBB (left bundle branch block) Other left bundle branch block 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 Obstructive sleep apnea (adult) (pediatric) Other irritable bowel syndrome Anxiety and depression Dysthymic disorder Class 3 severe obesity due to excess calories with serious comorbidity and body mass index (BMI) of 40.0 to 44.9 in adult ([facility]) [facility]inary [facility] Pre-operative examination- Primary Preoperative examination, unspecified Fuchs' endothelial dystrophy Endothelial corneal dystrophy Type 2 diabetes mellitus with other specified complication, without long-term current use of insulin (HCC) Essential hypertension, benign Mixed hyperlipidemia Hypothyroidism, unspecified type Iron deficiency anemia, unspecified iron deficiency anemia type Anxiety and depression Dysthymic disorder Chronic back pain, unspecified back location, unspecified back pain laterality Primary osteoarthritis involving multiple joints Gastroesophageal reflux disease, esophagitis presence not specified Other irritable bowel syndrome 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 Obstructive sleep apnea (adult) (pediatric) Chronic intractable headache, unspecified headache type RLS (restless legs syndrome) Restless legs syndrome (RLS) Fibromyalgia Mylagia and myositis, unspecified Morbid obesity (HCC) Morbid obesity Fall, initial encounter Left facial pain Headache Left hand pain Pain in limb Pre-operative examination- Primary Preoperative examination, unspecified Colon cancer screening Special screening for malignant neoplasms, colon Chronic intractable headache, unspecified headache type Fibromyalgia Mylagia and myositis, unspecified RLS (restless legs syndrome) Restless legs syndrome (RLS) Essential hypertension, benign Mixed hyperlipidemia 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 Obstructive sleep apnea (adult) (pediatric) Gastroesophageal reflux disease, unspecified whether esophagitis present Other irritable bowel syndrome Hypothyroidism, unspecified type Type 2 diabetes mellitus with other specified complication, without long-term current use of insulin ([facility]) Iron deficiency anemia, unspecified iron deficiency anemia type Anxiety and depression Dysthymic disorder Chronic back pain, unspecified back location, unspecified back pain laterality Class 3 severe obesity without serious comorbidity with body mass index (BMI) of 45.0 to 49.9 in adult, unspecified obesity type (HCC) Chronic kidney disease, unspecified CKD stage 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 ([facility]) Pre-operative examination- Primary Preoperative examination, unspecified Vaginal prolapse Unspecified prolapse of vaginal garrett Anxiety and depression Dysthymic disorder Chronic intractable headache, unspecified headache type Chronic kidney disease, unspecified CKD stage Class 3 severe obesity due to excess calories with serious comorbidity and body mass index (BMI) of 40.0 to 44.9 in adult (HCC) 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) Essential hypertension, benign Fibromyalgia Mylagia and myositis, unspecified Gastroesophageal reflux disease with esophagitis, unspecified whether hemorrhage Hypothyroidism, unspecified type Iron deficiency anemia, unspecified iron deficiency anemia type Mixed hyperlipidemia 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 Obstructive sleep apnea (adult) (pediatric) RLS (restless legs syndrome) Restless legs syndrome (RLS) Type 2 diabetes mellitus with other specified complication, without long-term current use of insulin (HCC) 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 Spinal stenosis, lumbar region, with neurogenic claudication Pre-op evaluation- Primary Preoperative examination, unspecified RLS (restless legs syndrome) Restless legs syndrome (RLS) Fibromyalgia Mylagia and myositis, unspecified Essential hypertension, benign Mixed hyperlipidemia 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 ([facility]) LBBB (left bundle branch block) Other left bundle branch block 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 Obstructive sleep apnea (adult) (pediatric) Other irritable bowel syndrome Anxiety and depression Dysthymic disorder Class 3 severe obesity due to excess calories with serious comorbidity and body mass index (BMI) of 40.0 to 44.9 in adult ([facility]) [facility]inary [facility] Pre-operative examination- Primary Preoperative examination, unspecified Fuchs' endothelial dystrophy Endothelial corneal dystrophy Type 2 diabetes mellitus with other specified complication, without long-term current use of insulin (HCC) Essential hypertension, benign Mixed hyperlipidemia Hypothyroidism, unspecified type Iron deficiency anemia, unspecified iron deficiency anemia type Anxiety and depression Dysthymic disorder Chronic back pain, unspecified back location, unspecified back pain laterality Primary osteoarthritis involving multiple joints Gastroesophageal reflux disease, esophagitis presence not specified Other irritable bowel syndrome 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 Obstructive sleep apnea (adult) (pediatric) Chronic intractable headache, unspecified headache type RLS (restless legs syndrome) Restless legs syndrome (RLS) Fibromyalgia Mylagia and myositis, unspecified Morbid obesity (HCC) Morbid obesity Pre-operative examination- Primary Preoperative examination, unspecified Colon cancer screening Special screening for malignant neoplasms, colon Chronic intractable headache, unspecified headache type Fibromyalgia Mylagia and myositis, unspecified RLS (restless legs syndrome) Restless legs syndrome (RLS) Essential hypertension, benign Mixed hyperlipidemia 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 Obstructive sleep apnea (adult) (pediatric) Gastroesophageal reflux disease, unspecified whether esophagitis present Other irritable bowel syndrome Hypothyroidism, unspecified type Type 2 diabetes mellitus with other specified complication, without long-term current use of insulin (HCC) Iron deficiency anemia, unspecified iron deficiency anemia type Anxiety and depression Dysthymic disorder Chronic back pain, unspecified back location, unspecified back pain laterality Class 3 severe obesity without serious comorbidity with body mass index (BMI) of 45.0 to 49.9 in adult, unspecified obesity type (HCC) Chronic kidney disease, unspecified CKD stage 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) Pre-operative examination- Primary Preoperative examination, unspecified Vaginal prolapse Unspecified prolapse of vaginal garrett Anxiety and depression Dysthymic disorder Chronic intractable headache, unspecified headache type Chronic kidney disease, unspecified CKD stage Class 3 severe obesity due to excess calories with serious comorbidity and body mass index (BMI) of 40.0 to 44.9 in adult (HCC) 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) Essential hypertension, benign Fibromyalgia Mylagia and myositis, unspecified Gastroesophageal reflux disease with esophagitis, unspecified whether hemorrhage Hypothyroidism, unspecified type Iron deficiency anemia, unspecified iron deficiency anemia type Mixed hyperlipidemia 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 Obstructive sleep apnea (adult) (pediatric) RLS (restless legs syndrome) Restless legs syndrome (RLS) Type 2 diabetes mellitus with other specified complication, without long-term current use of insulin (HCC) 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 Spinal stenosis, lumbar region, with neurogenic claudication Pre-op evaluation- Primary Preoperative examination, unspecified RLS (restless legs syndrome) Restless legs syndrome (RLS) Fibromyalgia Mylagia and myositis, unspecified Essential hypertension, benign Mixed hyperlipidemia 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 ([facility]) LBBB (left bundle branch block) Other left bundle branch block 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 Obstructive sleep apnea (adult) (pediatric) Other irritable bowel syndrome Anxiety and depression Dysthymic disorder Class 3 severe obesity due to excess calories with serious comorbidity and body mass index (BMI) of 40.0 to 44.9 in adult (HCC) Urinary frequency RLS (restless legs syndrome)- Primary Restless legs syndrome (RLS) Iron deficiency anemia, unspecified iron deficiency anemia type Vitamin D deficiency Unspecified vitamin D deficiency [facility] Pre-operative examination- Primary Preoperative examination, unspecified Fuchs' endothelial dystrophy Endothelial corneal dystrophy Type 2 diabetes mellitus with other specified complication, without long-term current use of insulin (HCC) Essential hypertension, benign Mixed hyperlipidemia Hypothyroidism, unspecified type Iron deficiency anemia, unspecified iron deficiency anemia type Anxiety and depression Dysthymic disorder Chronic back pain, unspecified back location, unspecified back pain laterality Primary osteoarthritis involving multiple joints Gastroesophageal reflux disease, esophagitis presence not specified Other irritable bowel syndrome 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 Obstructive sleep apnea (adult) (pediatric) Chronic intractable headache, unspecified headache type RLS (restless legs syndrome) Restless legs syndrome (RLS) Fibromyalgia Mylagia and myositis, unspecified Morbid obesity (HCC) Morbid obesity Pre-operative examination- Primary Preoperative examination, unspecified Colon cancer screening Special screening for malignant neoplasms, colon Chronic intractable headache, unspecified headache type Fibromyalgia Mylagia and myositis, unspecified RLS (restless legs syndrome) Restless legs syndrome (RLS) Essential hypertension, benign Mixed hyperlipidemia 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 Obstructive sleep apnea (adult) (pediatric) Gastroesophageal reflux disease, unspecified whether esophagitis present Other irritable bowel syndrome Hypothyroidism, unspecified type Type 2 diabetes mellitus with other specified complication, without long-term current use of insulin ([facility]) Iron deficiency anemia, unspecified iron deficiency anemia type Anxiety and depression Dysthymic disorder Chronic back pain, unspecified back location, unspecified back pain laterality Class 3 severe obesity without serious comorbidity with body mass index (BMI) of 45.0 to 49.9 in adult, unspecified obesity type ([facility]) Chronic kidney disease, unspecified CKD stage 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) Pre-operative examination- Primary Preoperative examination, unspecified Vaginal prolapse Unspecified prolapse of vaginal garrett Anxiety and depression Dysthymic disorder Chronic intractable headache, unspecified headache type Chronic kidney disease, unspecified CKD stage Class 3 severe obesity due to excess calories with serious comorbidity and body mass index (BMI) of 40.0 to 44.9 in adult (HCC) 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) Essential hypertension, benign Fibromyalgia Mylagia and myositis, unspecified Gastroesophageal reflux disease with esophagitis, unspecified whether hemorrhage Hypothyroidism, unspecified type Iron deficiency anemia, unspecified iron deficiency anemia type Mixed hyperlipidemia 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 Obstructive sleep apnea (adult) (pediatric) RLS (restless legs syndrome) Restless legs syndrome (RLS) Type 2 diabetes mellitus with other specified complication, without long-term current use of insulin ([facility]) 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 Spinal stenosis, lumbar region, with neurogenic claudication Pre-op evaluation- Primary Preoperative examination, unspecified RLS (restless legs syndrome) Restless legs syndrome (RLS) Fibromyalgia Mylagia and myositis, unspecified Essential hypertension, benign Mixed hyperlipidemia 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 ([facility]) LBBB (left bundle branch block) Other left bundle branch block 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 Obstructive sleep apnea (adult) (pediatric) Other irritable bowel syndrome Anxiety and depression Dysthymic disorder Class 3 severe obesity due to excess calories with serious comorbidity and body mass index (BMI) of 40.0 to 44.9 in adult ([facility]) Urinary frequency Class 3 severe obesity without serious comorbidity with body mass index (BMI) of 45.0 to 49.9 in adult, unspecified obesity type (HCC)- Primary Gastroesophageal reflux disease with esophagitis, unspecified whether hemorrhage Dietary counseling Dietary surveillance and counseling Type 2 diabetes mellitus with other specified complication, without long-term current use of insulin ([facility]) [facility] Pre-operative examination- Primary Preoperative examination, unspecified Fuchs' endothelial dystrophy Endothelial corneal dystrophy Type 2 diabetes mellitus with other specified complication, without long-term current use of insulin ([facility]) Essential hypertension, benign Mixed hyperlipidemia Hypothyroidism, unspecified type Iron deficiency anemia, unspecified iron deficiency anemia type Anxiety and depression Dysthymic disorder Chronic back pain, unspecified back location, unspecified back pain laterality Primary osteoarthritis involving multiple joints Gastroesophageal reflux disease, esophagitis presence not specified Other irritable bowel syndrome 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 Obstructive sleep apnea (adult) (pediatric) Chronic intractable headache, unspecified headache type RLS (restless legs syndrome) Restless legs syndrome (RLS) Fibromyalgia Mylagia and myositis, unspecified Morbid obesity (HCC) Morbid obesity Pre-operative examination- Primary Preoperative examination, unspecified Colon cancer screening Special screening for malignant neoplasms, colon Chronic intractable headache, unspecified headache type Fibromyalgia Mylagia and myositis, unspecified RLS (restless legs syndrome) Restless legs syndrome (RLS) Essential hypertension, benign Mixed hyperlipidemia 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 Obstructive sleep apnea (adult) (pediatric) Gastroesophageal reflux disease, unspecified whether esophagitis present Other irritable bowel syndrome Hypothyroidism, unspecified type Type 2 diabetes mellitus with other specified complication, without long-term current use of insulin (HCC) Iron deficiency anemia, unspecified iron deficiency anemia type Anxiety and depression Dysthymic disorder Chronic back pain, unspecified back location, unspecified back pain laterality Class 3 severe obesity without serious comorbidity with body mass index (BMI) of 45.0 to 49.9 in adult, unspecified obesity type (HCC) Chronic kidney disease, unspecified CKD stage 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) Pre-operative examination- Primary Preoperative examination, unspecified Vaginal prolapse Unspecified prolapse of vaginal garrett Anxiety and depression Dysthymic disorder Chronic intractable headache, unspecified headache type Chronic kidney disease, unspecified CKD stage Class 3 severe obesity due to excess calories with serious comorbidity and body mass index (BMI) of 40.0 to 44.9 in adult (HCC) 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) Essential hypertension, benign Fibromyalgia Mylagia and myositis, unspecified Gastroesophageal reflux disease with esophagitis, unspecified whether hemorrhage Hypothyroidism, unspecified type Iron deficiency anemia, unspecified iron deficiency anemia type Mixed hyperlipidemia 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 Obstructive sleep apnea (adult) (pediatric) RLS (restless legs syndrome) Restless legs syndrome (RLS) Type 2 diabetes mellitus with other specified complication, without long-term current use of insulin (HCC) 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 Spinal stenosis, lumbar region, with neurogenic claudication Pre-op evaluation- Primary Preoperative examination, unspecified RLS (restless legs syndrome) Restless legs syndrome (RLS) Fibromyalgia Mylagia and myositis, unspecified Essential hypertension, benign Mixed hyperlipidemia 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) LBBB (left bundle branch block) Other left bundle branch block 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 Obstructive sleep apnea (adult) (pediatric) Other irritable bowel syndrome Anxiety and depression Dysthymic disorder Class 3 severe obesity due to excess calories with serious comorbidity and body mass index (BMI) of 40.0 to 44.9 in adult (HCC) Urinary frequency Acute pain of right shoulder- Primary Acute non-recurrent sinusitis, unspecified location Type 2 diabetes mellitus with other specified complication, without long-term current use of insulin (HCC) Hypothyroidism, unspecified type Mixed hyperlipidemia Essential hypertension, benign [facility] Pre-operative examination- Primary Preoperative examination, unspecified Fuchs' endothelial dystrophy Endothelial corneal dystrophy Type 2 diabetes mellitus with other specified complication, without long-term current use of insulin (HCC) Essential hypertension, benign Mixed hyperlipidemia Hypothyroidism, unspecified type Iron deficiency anemia, unspecified iron deficiency anemia type Anxiety and depression Dysthymic disorder Chronic back pain, unspecified back location, unspecified back pain laterality Primary osteoarthritis involving multiple joints Gastroesophageal reflux disease, esophagitis presence not specified Other irritable bowel syndrome 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 Obstructive sleep apnea (adult) (pediatric) Chronic intractable headache, unspecified headache type RLS (restless legs syndrome) Restless legs syndrome (RLS) Fibromyalgia Mylagia and myositis, unspecified Morbid obesity (HCC) Morbid obesity Pre-operative examination- Primary Preoperative examination, unspecified Colon cancer screening Special screening for malignant neoplasms, colon Chronic intractable headache, unspecified headache type Fibromyalgia Mylagia and myositis, unspecified RLS (restless legs syndrome) Restless legs syndrome (RLS) Essential hypertension, benign Mixed hyperlipidemia 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 Obstructive sleep apnea (adult) (pediatric) Gastroesophageal reflux disease, unspecified whether esophagitis present Other irritable bowel syndrome Hypothyroidism, unspecified type Type 2 diabetes mellitus with other specified complication, without long-term current use of insulin (HCC) Iron deficiency anemia, unspecified iron deficiency anemia type Anxiety and depression Dysthymic disorder Chronic back pain, unspecified back location, unspecified back pain laterality Class 3 severe obesity without serious comorbidity with body mass index (BMI) of 45.0 to 49.9 in adult, unspecified obesity type (HCC) Chronic kidney disease, unspecified CKD stage 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 ([facility]) Pre-operative examination- Primary Preoperative examination, unspecified Vaginal prolapse Unspecified prolapse of vaginal garrett Anxiety and depression Dysthymic disorder Chronic intractable headache, unspecified headache type Chronic kidney disease, unspecified CKD stage Class 3 severe obesity due to excess calories with serious comorbidity and body mass index (BMI) of 40.0 to 44.9 in adult ([facility]) 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) Essential hypertension, benign Fibromyalgia Mylagia and myositis, unspecified Gastroesophageal reflux disease with esophagitis, unspecified whether hemorrhage Hypothyroidism, unspecified type Iron deficiency anemia, unspecified iron deficiency anemia type Mixed hyperlipidemia 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 Obstructive sleep apnea (adult) (pediatric) RLS (restless legs syndrome) Restless legs syndrome (RLS) Type 2 diabetes mellitus with other specified complication, without long-term current use of insulin ([facility]) 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 Spinal stenosis, lumbar region, with neurogenic claudication Pre-op evaluation- Primary Preoperative examination, unspecified RLS (restless legs syndrome) Restless legs syndrome (RLS) Fibromyalgia Mylagia and myositis, unspecified Essential hypertension, benign Mixed hyperlipidemia 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 ([facility]) LBBB (left bundle branch block) Other left bundle branch block 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 Obstructive sleep apnea (adult) (pediatric) Other irritable bowel syndrome Anxiety and depression Dysthymic disorder Class 3 severe obesity due to excess calories with serious comorbidity and body mass index (BMI) of 40.0 to 44.9 in adult ([facility]) Urinary frequency Class 3 severe obesity without serious comorbidity with body mass index (BMI) of 45.0 to 49.9 in adult, unspecified obesity type ([facility])- Primary Gastroesophageal reflux disease with esophagitis, unspecified whether hemorrhage Dietary counseling Dietary surveillance and counseling Type 2 diabetes mellitus with other specified complication, without long-term current use of insulin ([facility]) Weight loss counseling, encounter for Dietary surveillance and counseling [facility] Pre-operative examination- Primary Preoperative examination, unspecified Fuchs' endothelial dystrophy Endothelial corneal dystrophy Type 2 diabetes mellitus with other specified complication, without long-term current use of insulin ([facility]) Essential hypertension, benign Mixed hyperlipidemia Hypothyroidism, unspecified type Iron deficiency anemia, unspecified iron deficiency anemia type Anxiety and depression Dysthymic disorder Chronic back pain, unspecified back location, unspecified back pain laterality Primary osteoarthritis involving multiple joints Gastroesophageal reflux disease, esophagitis presence not specified Other irritable bowel syndrome 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 Obstructive sleep apnea (adult) (pediatric) Chronic intractable headache, unspecified headache type RLS (restless legs syndrome) Restless legs syndrome (RLS) Fibromyalgia Mylagia and myositis, unspecified Morbid obesity (HCC) Morbid obesity Pre-operative examination- Primary Preoperative examination, unspecified Colon cancer screening Special screening for malignant neoplasms, colon Chronic intractable headache, unspecified headache type Fibromyalgia Mylagia and myositis, unspecified RLS (restless legs syndrome) Restless legs syndrome (RLS) Essential hypertension, benign Mixed hyperlipidemia 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 Obstructive sleep apnea (adult) (pediatric) Gastroesophageal reflux disease, unspecified whether esophagitis present Other irritable bowel syndrome Hypothyroidism, unspecified type Type 2 diabetes mellitus with other specified complication, without long-term current use of insulin (HCC) Iron deficiency anemia, unspecified iron deficiency anemia type Anxiety and depression Dysthymic disorder Chronic back pain, unspecified back location, unspecified back pain laterality Class 3 severe obesity without serious comorbidity with body mass index (BMI) of 45.0 to 49.9 in adult, unspecified obesity type (HCC) Chronic kidney disease, unspecified CKD stage 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) Pre-operative examination- Primary Preoperative examination, unspecified Vaginal prolapse Unspecified prolapse of vaginal garrett Anxiety and depression Dysthymic disorder Chronic intractable headache, unspecified headache type Chronic kidney disease, unspecified CKD stage Class 3 severe obesity due to excess calories with serious comorbidity and body mass index (BMI) of 40.0 to 44.9 in adult (HCC) 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) Essential hypertension, benign Fibromyalgia Mylagia and myositis, unspecified Gastroesophageal reflux disease with esophagitis, unspecified whether hemorrhage Hypothyroidism, unspecified type Iron deficiency anemia, unspecified iron deficiency anemia type Mixed hyperlipidemia 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 Obstructive sleep apnea (adult) (pediatric) RLS (restless legs syndrome) Restless legs syndrome (RLS) Type 2 diabetes mellitus with other specified complication, without long-term current use of insulin (HCC) 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 Spinal stenosis, lumbar region, with neurogenic claudication Pre-op evaluation- Primary Preoperative examination, unspecified RLS (restless legs syndrome) Restless legs syndrome (RLS) Fibromyalgia Mylagia and myositis, unspecified Essential hypertension, benign Mixed hyperlipidemia 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) LBBB (left bundle branch block) Other left bundle branch block 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 Obstructive sleep apnea (adult) (pediatric) Other irritable bowel syndrome Anxiety and depression Dysthymic disorder Class 3 severe obesity due to excess calories with serious comorbidity and body mass index (BMI) of 40.0 to 44.9 in adult (HCC) Urinary frequency Sinobronchitis- Primary Unspecified sinusitis (chronic) [facility] Pre-operative examination- Primary Preoperative examination, unspecified Fuchs' endothelial dystrophy Endothelial corneal dystrophy Type 2 diabetes mellitus with other specified complication, without long-term current use of insulin (HCC) Essential hypertension, benign Mixed hyperlipidemia Hypothyroidism, unspecified type Iron deficiency anemia, unspecified iron deficiency anemia type Anxiety and depression Dysthymic disorder Chronic back pain, unspecified back location, unspecified back pain laterality Primary osteoarthritis involving multiple joints Gastroesophageal reflux disease, esophagitis presence not specified Other irritable bowel syndrome 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 Obstructive sleep apnea (adult) (pediatric) Chronic intractable headache, unspecified headache type RLS (restless legs syndrome) Restless legs syndrome (RLS) Fibromyalgia Mylagia and myositis, unspecified Morbid obesity (HCC) Morbid obesity Pre-operative examination- Primary Preoperative examination, unspecified Colon cancer screening Special screening for malignant neoplasms, colon Chronic intractable headache, unspecified headache type Fibromyalgia Mylagia and myositis, unspecified RLS (restless legs syndrome) Restless legs syndrome (RLS) Essential hypertension, benign Mixed hyperlipidemia 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 Obstructive sleep apnea (adult) (pediatric) Gastroesophageal reflux disease, unspecified whether esophagitis present Other irritable bowel syndrome Hypothyroidism, unspecified type Type 2 diabetes mellitus with other specified complication, without long-term current use of insulin (HCC) Iron deficiency anemia, unspecified iron deficiency anemia type Anxiety and depression Dysthymic disorder Chronic back pain, unspecified back location, unspecified back pain laterality Class 3 severe obesity without serious comorbidity with body mass index (BMI) of 45.0 to 49.9 in adult, unspecified obesity type (HCC) Chronic kidney disease, unspecified CKD stage 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) Pre-operative examination- Primary Preoperative examination, unspecified Vaginal prolapse Unspecified prolapse of vaginal garrett Anxiety and depression Dysthymic disorder Chronic intractable headache, unspecified headache type Chronic kidney disease, unspecified CKD stage Class 3 severe obesity due to excess calories with serious comorbidity and body mass index (BMI) of 40.0 to 44.9 in adult (HCC) 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) Essential hypertension, benign Fibromyalgia Mylagia and myositis, unspecified Gastroesophageal reflux disease with esophagitis, unspecified whether hemorrhage Hypothyroidism, unspecified type Iron deficiency anemia, unspecified iron deficiency anemia type Mixed hyperlipidemia 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 Obstructive sleep apnea (adult) (pediatric) RLS (restless legs syndrome) Restless legs syndrome (RLS) Type 2 diabetes mellitus with other specified complication, without long-term current use of insulin ([facility]) 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 Spinal stenosis, lumbar region, with neurogenic claudication Pre-op evaluation- Primary Preoperative examination, unspecified RLS (restless legs syndrome) Restless legs syndrome (RLS) Fibromyalgia Mylagia and myositis, unspecified Essential hypertension, benign Mixed hyperlipidemia 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) LBBB (left bundle branch block) Other left bundle branch block 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 Obstructive sleep apnea (adult) (pediatric) Other irritable bowel syndrome Anxiety and depression Dysthymic disorder Class 3 severe obesity due to excess calories with serious comorbidity and body mass index (BMI) of 40.0 to 44.9 in adult (HCC) Urinary frequency Class 3 severe obesity without serious comorbidity with body mass index (BMI) of 45.0 to 49.9 in adult, unspecified obesity type (HCC)- Primary Gastroesophageal reflux disease with esophagitis, unspecified whether hemorrhage Dietary counseling Dietary surveillance and counseling Type 2 diabetes mellitus with other specified complication, without long-term current use of insulin ([facility]) [facility] Pre-operative examination- Primary Preoperative examination, unspecified Fuchs' endothelial dystrophy Endothelial corneal dystrophy Type 2 diabetes mellitus with other specified complication, without long-term current use of insulin ([facility]) Essential hypertension, benign Mixed hyperlipidemia Hypothyroidism, unspecified type Iron deficiency anemia, unspecified iron deficiency anemia type Anxiety and depression Dysthymic disorder Chronic back pain, unspecified back location, unspecified back pain laterality Primary osteoarthritis involving multiple joints Gastroesophageal reflux disease, esophagitis presence not specified Other irritable bowel syndrome 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 Obstructive sleep apnea (adult) (pediatric) Chronic intractable headache, unspecified headache type RLS (restless legs syndrome) Restless legs syndrome (RLS) Fibromyalgia Mylagia and myositis, unspecified Morbid obesity (HCC) Morbid obesity Pre-operative examination- Primary Preoperative examination, unspecified Colon cancer screening Special screening for malignant neoplasms, colon Chronic intractable headache, unspecified headache type Fibromyalgia Mylagia and myositis, unspecified RLS (restless legs syndrome) Restless legs syndrome (RLS) Essential hypertension, benign Mixed hyperlipidemia 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 Obstructive sleep apnea (adult) (pediatric) Gastroesophageal reflux disease, unspecified whether esophagitis present Other irritable bowel syndrome Hypothyroidism, unspecified type Type 2 diabetes mellitus with other specified complication, without long-term current use of insulin (HCC) Iron deficiency anemia, unspecified iron deficiency anemia type Anxiety and depression Dysthymic disorder Chronic back pain, unspecified back location, unspecified back pain laterality Class 3 severe obesity without serious comorbidity with body mass index (BMI) of 45.0 to 49.9 in adult, unspecified obesity type Chronic kidney disease, unspecified CKD stage 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 Pre-operative examination- Primary Preoperative examination, unspecified Vaginal prolapse Unspecified prolapse of vaginal garrett Anxiety and depression Dysthymic disorder Chronic intractable headache, unspecified headache type Chronic kidney disease, unspecified CKD stage Class 3 severe obesity due to excess calories with serious comorbidity and body mass index (BMI) of 40.0 to 44.9 in adult 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 Essential hypertension, benign Fibromyalgia Mylagia and myositis, unspecified Gastroesophageal reflux disease with esophagitis, unspecified whether hemorrhage Hypothyroidism, unspecified type Iron deficiency anemia, unspecified iron deficiency anemia type Mixed hyperlipidemia 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 Obstructive sleep apnea (adult) (pediatric) RLS (restless legs syndrome) Restless legs syndrome (RLS) Type 2 diabetes mellitus with other specified complication, without long-term current use of insulin (HCC) 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 Spinal stenosis, lumbar region, with neurogenic claudication Pre-op evaluation- Primary Preoperative examination, unspecified RLS (restless legs syndrome) Restless legs syndrome (RLS) Fibromyalgia Mylagia and myositis, unspecified Essential hypertension, benign Mixed hyperlipidemia 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 LBBB (left bundle branch block) Other left bundle branch block 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 Obstructive sleep apnea (adult) (pediatric) Other irritable bowel syndrome Anxiety and depression Dysthymic disorder Class 3 severe obesity due to excess calories with serious comorbidity and body mass index (BMI) of 40.0 to 44.9 in adult Urinary frequency Hammer toes of both feet- Primary Callus Corns and callosities Diabetic polyneuropathy associated with type 2 diabetes mellitus (HCC) Diminished pulses in lower extremity Other symptoms involving cardiovascular system [facility] Pre-operative examination- Primary Preoperative examination, unspecified Fuchs' endothelial dystrophy Endothelial corneal dystrophy Type 2 diabetes mellitus with other specified complication, without long-term current use of insulin (HCC) Essential hypertension, benign Mixed hyperlipidemia Hypothyroidism, unspecified type Iron deficiency anemia, unspecified iron deficiency anemia type Anxiety and depression Dysthymic disorder Chronic back pain, unspecified back location, unspecified back pain laterality Primary osteoarthritis involving multiple joints Gastroesophageal reflux disease, esophagitis presence not specified Other irritable bowel syndrome 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 Obstructive sleep apnea (adult) (pediatric) Chronic intractable headache, unspecified headache type RLS (restless legs syndrome) Restless legs syndrome (RLS) Fibromyalgia Mylagia and myositis, unspecified Morbid obesity (HCC) Morbid obesity Pre-operative examination- Primary Preoperative examination, unspecified Colon cancer screening Special screening for malignant neoplasms, colon Chronic intractable headache, unspecified headache type Fibromyalgia Mylagia and myositis, unspecified RLS (restless legs syndrome) Restless legs syndrome (RLS) Essential hypertension, benign Mixed hyperlipidemia 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 Obstructive sleep apnea (adult) (pediatric) Gastroesophageal reflux disease, unspecified whether esophagitis present Other irritable bowel syndrome Hypothyroidism, unspecified type Type 2 diabetes mellitus with other specified complication, without long-term current use of insulin (HCC) Iron deficiency anemia, unspecified iron deficiency anemia type Anxiety and depression Dysthymic disorder Chronic back pain, unspecified back location, unspecified back pain laterality Class 3 severe obesity without serious comorbidity with body mass index (BMI) of 45.0 to 49.9 in adult, unspecified obesity type Chronic kidney disease, unspecified CKD stage 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 Pre-operative examination- Primary Preoperative examination, unspecified Vaginal prolapse Unspecified prolapse of vaginal garrett Anxiety and depression Dysthymic disorder Chronic intractable headache, unspecified headache type Chronic kidney disease, unspecified CKD stage Class 3 severe obesity due to excess calories with serious comorbidity and body mass index (BMI) of 40.0 to 44.9 in adult 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 Essential hypertension, benign Fibromyalgia Mylagia and myositis, unspecified Gastroesophageal reflux disease with esophagitis, unspecified whether hemorrhage Hypothyroidism, unspecified type Iron deficiency anemia, unspecified iron deficiency anemia type Mixed hyperlipidemia 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 Obstructive sleep apnea (adult) (pediatric) RLS (restless legs syndrome) Restless legs syndrome (RLS) Type 2 diabetes mellitus with other specified complication, without long-term current use of insulin (HCC) 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 Spinal stenosis, lumbar region, with neurogenic claudication Pre-op evaluation- Primary Preoperative examination, unspecified RLS (restless legs syndrome) Restless legs syndrome (RLS) Fibromyalgia Mylagia and myositis, unspecified Essential hypertension, benign Mixed hyperlipidemia 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 LBBB (left bundle branch block) Other left bundle branch block 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 Obstructive sleep apnea (adult) (pediatric) Other irritable bowel syndrome Anxiety and depression Dysthymic disorder Class 3 severe obesity due to excess calories with serious comorbidity and body mass index (BMI) of 40.0 to 44.9 in adult Urinary frequency Hammer toes of both feet Callus Corns and callosities [facility] Diagnosis Pre-operative examination- Primary Preoperative examination, unspecified Fuchs' endothelial dystrophy Endothelial corneal dystrophy Type 2 diabetes mellitus with other specified complication, without long-term current use of insulin (HCC) Essential hypertension, benign Mixed hyperlipidemia Hypothyroidism, unspecified type Iron deficiency anemia, unspecified iron deficiency anemia type Anxiety and depression Dysthymic disorder Chronic back pain, unspecified back location, unspecified back pain laterality Primary osteoarthritis involving multiple joints Gastroesophageal reflux disease, esophagitis presence not specified Other irritable bowel syndrome 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 Obstructive sleep apnea (adult) (pediatric) Chronic intractable headache, unspecified headache type RLS (restless legs syndrome) Restless legs syndrome (RLS) Fibromyalgia Mylagia and myositis, unspecified Morbid obesity (HCC) Morbid obesity Pre-operative examination- Primary Preoperative examination, unspecified Colon cancer screening Special screening for malignant neoplasms, colon Chronic intractable headache, unspecified headache type Fibromyalgia Mylagia and myositis, unspecified RLS (restless legs syndrome) Restless legs syndrome (RLS) Essential hypertension, benign Mixed hyperlipidemia 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 Obstructive sleep apnea (adult) (pediatric) Gastroesophageal reflux disease, unspecified whether esophagitis present Other irritable bowel syndrome Hypothyroidism, unspecified type Type 2 diabetes mellitus with other specified complication, without long-term current use of insulin (HCC) Iron deficiency anemia, unspecified iron deficiency anemia type Anxiety and depression Dysthymic disorder Chronic back pain, unspecified back location, unspecified back pain laterality Class 3 severe obesity without serious comorbidity with body mass index (BMI) of 45.0 to 49.9 in adult, unspecified obesity type Chronic kidney disease, unspecified CKD stage 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 Pre-operative examination- Primary Preoperative examination, unspecified Vaginal prolapse Unspecified prolapse of vaginal garrett Anxiety and depression Dysthymic disorder Chronic intractable headache, unspecified headache type Chronic kidney disease, unspecified CKD stage Class 3 severe obesity due to excess calories with serious comorbidity and body mass index (BMI) of 40.0 to 44.9 in adult 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 Essential hypertension, benign Fibromyalgia Mylagia and myositis, unspecified Gastroesophageal reflux disease with esophagitis, unspecified whether hemorrhage Hypothyroidism, unspecified type Iron deficiency anemia, unspecified iron deficiency anemia type Mixed hyperlipidemia 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 Obstructive sleep apnea (adult) (pediatric) RLS (restless legs syndrome) Restless legs syndrome (RLS) Type 2 diabetes mellitus with other specified complication, without long-term current use of insulin (HCC) 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 Spinal stenosis, lumbar region, with neurogenic claudication Pre-op evaluation- Primary Preoperative examination, unspecified RLS (restless legs syndrome) Restless legs syndrome (RLS) Fibromyalgia Mylagia and myositis, unspecified Essential hypertension, benign Mixed hyperlipidemia 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 LBBB (left bundle branch block) Other left bundle branch block 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 Obstructive sleep apnea (adult) (pediatric) Other irritable bowel syndrome Anxiety and depression Dysthymic disorder Class 3 severe obesity due to excess calories with serious comorbidity and body mass index (BMI) of 40.0 to 44.9 in adult Urinary frequency RLS (restless legs syndrome)- Primary Restless legs syndrome (RLS) [facility] Diagnosis Pre-operative examination- Primary Preoperative examination, unspecified Fuchs' endothelial dystrophy Endothelial corneal dystrophy Type 2 diabetes mellitus with other specified complication, without long-term current use of insulin (HCC) Essential hypertension, benign Mixed hyperlipidemia Hypothyroidism, unspecified type Iron deficiency anemia, unspecified iron deficiency anemia type Anxiety and depression Dysthymic disorder Chronic back pain, unspecified back location, unspecified back pain laterality Primary osteoarthritis involving multiple joints Gastroesophageal reflux disease, esophagitis presence not specified Other irritable bowel syndrome 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 Obstructive sleep apnea (adult) (pediatric) Chronic intractable headache, unspecified headache type RLS (restless legs syndrome) Restless legs syndrome (RLS) Fibromyalgia Mylagia and myositis, unspecified Morbid obesity (HCC) Morbid obesity Pre-operative examination- Primary Preoperative examination, unspecified Colon cancer screening Special screening for malignant neoplasms, colon Chronic intractable headache, unspecified headache type Fibromyalgia Mylagia and myositis, unspecified RLS (restless legs syndrome) Restless legs syndrome (RLS) Essential hypertension, benign Mixed hyperlipidemia 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 Obstructive sleep apnea (adult) (pediatric) Gastroesophageal reflux disease, unspecified whether esophagitis present Other irritable bowel syndrome Hypothyroidism, unspecified type Type 2 diabetes mellitus with other specified complication, without long-term current use of insulin (HCC) Iron deficiency anemia, unspecified iron deficiency anemia type Anxiety and depression Dysthymic disorder Chronic back pain, unspecified back location, unspecified back pain laterality Class 3 severe obesity without serious comorbidity with body mass index (BMI) of 45.0 to 49.9 in adult, unspecified obesity type Chronic kidney disease, unspecified CKD stage 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 Pre-operative examination- Primary Preoperative examination, unspecified Vaginal prolapse Unspecified prolapse of vaginal garrett Anxiety and depression Dysthymic disorder Chronic intractable headache, unspecified headache type Chronic kidney disease, unspecified CKD stage Class 3 severe obesity due to excess calories with serious comorbidity and body mass index (BMI) of 40.0 to 44.9 in adult 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 Essential hypertension, benign Fibromyalgia Mylagia and myositis, unspecified Gastroesophageal reflux disease with esophagitis, unspecified whether hemorrhage Hypothyroidism, unspecified type Iron deficiency anemia, unspecified iron deficiency anemia type Mixed hyperlipidemia 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 Obstructive sleep apnea (adult) (pediatric) RLS (restless legs syndrome) Restless legs syndrome (RLS) Type 2 diabetes mellitus with other specified complication, without long-term current use of insulin (HCC) 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 Spinal stenosis, lumbar region, with neurogenic claudication Pre-op evaluation- Primary Preoperative examination, unspecified RLS (restless legs syndrome) Restless legs syndrome (RLS) Fibromyalgia Mylagia and myositis, unspecified Essential hypertension, benign Mixed hyperlipidemia 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 LBBB (left bundle branch block) Other left bundle branch block 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 Obstructive sleep apnea (adult) (pediatric) Other irritable bowel syndrome Anxiety and depression Dysthymic disorder Class 3 severe obesity due to excess calories with serious comorbidity and body mass index (BMI) of 40.0 to 44.9 in adult Urinary frequency RLS (restless legs syndrome) Restless legs syndrome (RLS) [facility] Diagnosis Pre-operative examination- Primary Preoperative examination, unspecified Fuchs' endothelial dystrophy Endothelial corneal dystrophy Type 2 diabetes mellitus with other specified complication, without long-term current use of insulin (HCC) Essential hypertension, benign Mixed hyperlipidemia Hypothyroidism, unspecified type Iron deficiency anemia, unspecified iron deficiency anemia type Anxiety and depression Dysthymic disorder Chronic back pain, unspecified back location, unspecified back pain laterality Primary osteoarthritis involving multiple joints Gastroesophageal reflux disease, esophagitis presence not specified Other irritable bowel syndrome 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 Obstructive sleep apnea (adult) (pediatric) Chronic intractable headache, unspecified headache type RLS (restless legs syndrome) Restless legs syndrome (RLS) Fibromyalgia Mylagia and myositis, unspecified Morbid obesity (HCC) Morbid obesity Pre-operative examination- Primary Preoperative examination, unspecified Colon cancer screening Special screening for malignant neoplasms, colon Chronic intractable headache, unspecified headache type Fibromyalgia Mylagia and myositis, unspecified RLS (restless legs syndrome) Restless legs syndrome (RLS) Essential hypertension, benign Mixed hyperlipidemia 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 Obstructive sleep apnea (adult) (pediatric) Gastroesophageal reflux disease, unspecified whether esophagitis present Other irritable bowel syndrome Hypothyroidism, unspecified type Type 2 diabetes mellitus with other specified complication, without long-term current use of insulin (HCC) Iron deficiency anemia, unspecified iron deficiency anemia type Anxiety and depression Dysthymic disorder Chronic back pain, unspecified back location, unspecified back pain laterality Class 3 severe obesity without serious comorbidity with body mass index (BMI) of 45.0 to 49.9 in adult, unspecified obesity type ([facility]) Chronic kidney disease, unspecified CKD stage 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 Pre-operative examination- Primary Preoperative examination, unspecified Vaginal prolapse Unspecified prolapse of vaginal garrett Anxiety and depression Dysthymic disorder Chronic intractable headache, unspecified headache type Chronic kidney disease, unspecified CKD stage Class 3 severe obesity due to excess calories with serious comorbidity and body mass index (BMI) of 40.0 to 44.9 in adult ([facility]) 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 Essential hypertension, benign Fibromyalgia Mylagia and myositis, unspecified Gastroesophageal reflux disease with esophagitis, unspecified whether hemorrhage Hypothyroidism, unspecified type Iron deficiency anemia, unspecified iron deficiency anemia type Mixed hyperlipidemia 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 Obstructive sleep apnea (adult) (pediatric) RLS (restless legs syndrome) Restless legs syndrome (RLS) Type 2 diabetes mellitus with other specified complication, without long-term current use of insulin ([facility]) 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 Spinal stenosis, lumbar region, with neurogenic claudication Pre-op evaluation- Primary Preoperative examination, unspecified RLS (restless legs syndrome) Restless legs syndrome (RLS) Fibromyalgia Mylagia and myositis, unspecified Essential hypertension, benign Mixed hyperlipidemia 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 LBBB (left bundle branch block) Other left bundle branch block 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 Obstructive sleep apnea (adult) (pediatric) Other irritable bowel syndrome Anxiety and depression Dysthymic disorder Class 3 severe obesity due to excess calories with serious comorbidity and body mass index (BMI) of 40.0 to 44.9 in adult ([facility]) Urinary frequency RLS (restless legs syndrome)- Primary Restless legs syndrome (RLS) Iron deficiency anemia, unspecified iron deficiency anemia type MAURICE (obstructive sleep apnea) Obstructive sleep apnea (adult) (pediatric) Class 3 severe obesity with body mass index (BMI) of 40.0 to 44.9 in adult, unspecified obesity type, unspecified whether serious comorbidity present ([facility]) [facility] Diagnosis Pre-operative examination- Primary Preoperative examination, unspecified Fuchs' endothelial dystrophy Endothelial corneal dystrophy Type 2 diabetes mellitus with other specified complication, without long-term current use of insulin (HCC) Essential hypertension, benign Mixed hyperlipidemia Hypothyroidism, unspecified type Iron deficiency anemia, unspecified iron deficiency anemia type Anxiety and depression Dysthymic disorder Chronic back pain, unspecified back location, unspecified back pain laterality Primary osteoarthritis involving multiple joints Gastroesophageal reflux disease, esophagitis presence not specified Other irritable bowel syndrome 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 Obstructive sleep apnea (adult) (pediatric) Chronic intractable headache, unspecified headache type RLS (restless legs syndrome) Restless legs syndrome (RLS) Fibromyalgia Mylagia and myositis, unspecified Morbid obesity (HCC) Morbid obesity Pre-operative examination- Primary Preoperative examination, unspecified Colon cancer screening Special screening for malignant neoplasms, colon Chronic intractable headache, unspecified headache type Fibromyalgia Mylagia and myositis, unspecified RLS (restless legs syndrome) Restless legs syndrome (RLS) Essential hypertension, benign Mixed hyperlipidemia 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 Obstructive sleep apnea (adult) (pediatric) Gastroesophageal reflux disease, unspecified whether esophagitis present Other irritable bowel syndrome Hypothyroidism, unspecified type Type 2 diabetes mellitus with other specified complication, without long-term current use of insulin (HCC) Iron deficiency anemia, unspecified iron deficiency anemia type Anxiety and depression Dysthymic disorder Chronic back pain, unspecified back location, unspecified back pain laterality Class 3 severe obesity without serious comorbidity with body mass index (BMI) of 45.0 to 49.9 in adult, unspecified obesity type (HCC) Chronic kidney disease, unspecified CKD stage 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 Pre-operative examination- Primary Preoperative examination, unspecified Vaginal prolapse Unspecified prolapse of vaginal garrett Anxiety and depression Dysthymic disorder Chronic intractable headache, unspecified headache type Chronic kidney disease, unspecified CKD stage Class 3 severe obesity due to excess calories with serious comorbidity and body mass index (BMI) of 40.0 to 44.9 in adult (HCC) 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 Essential hypertension, benign Fibromyalgia Mylagia and myositis, unspecified Gastroesophageal reflux disease with esophagitis, unspecified whether hemorrhage Hypothyroidism, unspecified type Iron deficiency anemia, unspecified iron deficiency anemia type Mixed hyperlipidemia 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 Obstructive sleep apnea (adult) (pediatric) RLS (restless legs syndrome) Restless legs syndrome (RLS) Type 2 diabetes mellitus with other specified complication, without long-term current use of insulin (HCC) 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 Spinal stenosis, lumbar region, with neurogenic claudication Pre-op evaluation- Primary Preoperative examination, unspecified RLS (restless legs syndrome) Restless legs syndrome (RLS) Fibromyalgia Mylagia and myositis, unspecified Essential hypertension, benign Mixed hyperlipidemia 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 LBBB (left bundle branch block) Other left bundle branch block 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 Obstructive sleep apnea (adult) (pediatric) Other irritable bowel syndrome Anxiety and depression Dysthymic disorder Class 3 severe obesity due to excess calories with serious comorbidity and body mass index (BMI) of 40.0 to 44.9 in adult (HCC) Urinary frequency Class 3 severe obesity without serious comorbidity with body mass index (BMI) of 45.0 to 49.9 in adult, unspecified obesity type (HCC)- Primary Gastroesophageal reflux disease with esophagitis, unspecified whether hemorrhage Dietary counseling Dietary surveillance and counseling Controlled type 2 diabetes mellitus without complication, without long-term current use of insulin ([facility]) [facility] Pre-operative examination- Primary Preoperative examination, unspecified Fuchs' endothelial dystrophy Endothelial corneal dystrophy Type 2 diabetes mellitus with other specified complication, without long-term current use of insulin (HCC) Essential hypertension, benign Mixed hyperlipidemia Hypothyroidism, unspecified type Iron deficiency anemia, unspecified iron deficiency anemia type Anxiety and depression Dysthymic disorder Chronic back pain, unspecified back location, unspecified back pain laterality Primary osteoarthritis involving multiple joints Gastroesophageal reflux disease, esophagitis presence not specified Other irritable bowel syndrome 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 Obstructive sleep apnea (adult) (pediatric) Chronic intractable headache, unspecified headache type RLS (restless legs syndrome) Restless legs syndrome (RLS) Fibromyalgia Mylagia and myositis, unspecified Morbid obesity (HCC) Morbid obesity Pre-operative examination- Primary Preoperative examination, unspecified Colon cancer screening Special screening for malignant neoplasms, colon Chronic intractable headache, unspecified headache type Fibromyalgia Mylagia and myositis, unspecified RLS (restless legs syndrome) Restless legs syndrome (RLS) Essential hypertension, benign Mixed hyperlipidemia 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 Obstructive sleep apnea (adult) (pediatric) Gastroesophageal reflux disease, unspecified whether esophagitis present Other irritable bowel syndrome Hypothyroidism, unspecified type Type 2 diabetes mellitus with other specified complication, without long-term current use of insulin (HCC) Iron deficiency anemia, unspecified iron deficiency anemia type Anxiety and depression Dysthymic disorder Chronic back pain, unspecified back location, unspecified back pain laterality Class 3 severe obesity without serious comorbidity with body mass index (BMI) of 45.0 to 49.9 in adult, unspecified obesity type ([facility]) Chronic kidney disease, unspecified CKD stage 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 Pre-operative examination- Primary Preoperative examination, unspecified Vaginal prolapse Unspecified prolapse of vaginal garrett Anxiety and depression Dysthymic disorder Chronic intractable headache, unspecified headache type Chronic kidney disease, unspecified CKD stage Class 3 severe obesity due to excess calories with serious comorbidity and body mass index (BMI) of 40.0 to 44.9 in adult ([facility]) 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 Essential hypertension, benign Fibromyalgia Mylagia and myositis, unspecified Gastroesophageal reflux disease with esophagitis, unspecified whether hemorrhage Hypothyroidism, unspecified type Iron deficiency anemia, unspecified iron deficiency anemia type Mixed hyperlipidemia 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 Obstructive sleep apnea (adult) (pediatric) RLS (restless legs syndrome) Restless legs syndrome (RLS) Type 2 diabetes mellitus with other specified complication, without long-term current use of insulin ([facility]) 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 Spinal stenosis, lumbar region, with neurogenic claudication Pre-op evaluation- Primary Preoperative examination, unspecified RLS (restless legs syndrome) Restless legs syndrome (RLS) Fibromyalgia Mylagia and myositis, unspecified Essential hypertension, benign Mixed hyperlipidemia 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 LBBB (left bundle branch block) Other left bundle branch block 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 Obstructive sleep apnea (adult) (pediatric) Other irritable bowel syndrome Anxiety and depression Dysthymic disorder Class 3 severe obesity due to excess calories with serious comorbidity and body mass index (BMI) of 40.0 to 44.9 in adult ([facility]) Urinary frequency Hammer toes of both feet- Primary Callus Corns and callosities Diabetic polyneuropathy associated with type 2 diabetes mellitus ([facility]) [facility] Pre-operative examination- Primary Preoperative examination, unspecified Fuchs' endothelial dystrophy Endothelial corneal dystrophy Type 2 diabetes mellitus with other specified complication, without long-term current use of insulin (HCC) Essential hypertension, benign Mixed hyperlipidemia Hypothyroidism, unspecified type Iron deficiency anemia, unspecified iron deficiency anemia type Anxiety and depression Dysthymic disorder Chronic back pain, unspecified back location, unspecified back pain laterality Primary osteoarthritis involving multiple joints Gastroesophageal reflux disease, esophagitis presence not specified Other irritable bowel syndrome 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 Obstructive sleep apnea (adult) (pediatric) Chronic intractable headache, unspecified headache type RLS (restless legs syndrome) Restless legs syndrome (RLS) Fibromyalgia Mylagia and myositis, unspecified Morbid obesity (HCC) Morbid obesity Pre-operative examination- Primary Preoperative examination, unspecified Colon cancer screening Special screening for malignant neoplasms, colon Chronic intractable headache, unspecified headache type Fibromyalgia Mylagia and myositis, unspecified RLS (restless legs syndrome) Restless legs syndrome (RLS) Essential hypertension, benign Mixed hyperlipidemia 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 Obstructive sleep apnea (adult) (pediatric) Gastroesophageal reflux disease, unspecified whether esophagitis present Other irritable bowel syndrome Hypothyroidism, unspecified type Type 2 diabetes mellitus with other specified complication, without long-term current use of insulin ([facility]) Iron deficiency anemia, unspecified iron deficiency anemia type Anxiety and depression Dysthymic disorder Chronic back pain, unspecified back location, unspecified back pain laterality Class 3 severe obesity without serious comorbidity with body mass index (BMI) of 45.0 to 49.9 in adult, unspecified obesity type ([facility]) Chronic kidney disease, unspecified CKD stage 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 Pre-operative examination- Primary Preoperative examination, unspecified Vaginal prolapse Unspecified prolapse of vaginal garrett Anxiety and depression Dysthymic disorder Chronic intractable headache, unspecified headache type Chronic kidney disease, unspecified CKD stage Class 3 severe obesity due to excess calories with serious comorbidity and body mass index (BMI) of 40.0 to 44.9 in adult ([facility]) 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 Essential hypertension, benign Fibromyalgia Mylagia and myositis, unspecified Gastroesophageal reflux disease with esophagitis, unspecified whether hemorrhage Hypothyroidism, unspecified type Iron deficiency anemia, unspecified iron deficiency anemia type Mixed hyperlipidemia 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 Obstructive sleep apnea (adult) (pediatric) RLS (restless legs syndrome) Restless legs syndrome (RLS) Type 2 diabetes mellitus with other specified complication, without long-term current use of insulin ([facility]) 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 Spinal stenosis, lumbar region, with neurogenic claudication Pre-op evaluation- Primary Preoperative examination, unspecified RLS (restless legs syndrome) Restless legs syndrome (RLS) Fibromyalgia Mylagia and myositis, unspecified Essential hypertension, benign Mixed hyperlipidemia 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 LBBB (left bundle branch block) Other left bundle branch block 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 Obstructive sleep apnea (adult) (pediatric) Other irritable bowel syndrome Anxiety and depression Dysthymic disorder Class 3 severe obesity due to excess calories with serious comorbidity and body mass index (BMI) of 40.0 to 44.9 in adult (HCC) Urinary frequency Type 2 diabetes mellitus without complication, without long-term current use of insulin ([facility]) [facility] Pre-operative examination- Primary Preoperative examination, unspecified Fuchs' endothelial dystrophy Endothelial corneal dystrophy Type 2 diabetes mellitus with other specified complication, without long-term current use of insulin (HCC) Essential hypertension, benign Mixed hyperlipidemia Hypothyroidism, unspecified type Iron deficiency anemia, unspecified iron deficiency anemia type Anxiety and depression Dysthymic disorder Chronic back pain, unspecified back location, unspecified back pain laterality Primary osteoarthritis involving multiple joints Gastroesophageal reflux disease, esophagitis presence not specified Other irritable bowel syndrome 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 Obstructive sleep apnea (adult) (pediatric) Chronic intractable headache, unspecified headache type RLS (restless legs syndrome) Restless legs syndrome (RLS) Fibromyalgia Mylagia and myositis, unspecified Morbid obesity (HCC) Morbid obesity Pre-operative examination- Primary Preoperative examination, unspecified Colon cancer screening Special screening for malignant neoplasms, colon Chronic intractable headache, unspecified headache type Fibromyalgia Mylagia and myositis, unspecified RLS (restless legs syndrome) Restless legs syndrome (RLS) Essential hypertension, benign Mixed hyperlipidemia 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 Obstructive sleep apnea (adult) (pediatric) Gastroesophageal reflux disease, unspecified whether esophagitis present Other irritable bowel syndrome Hypothyroidism, unspecified type Type 2 diabetes mellitus with other specified complication, without long-term current use of insulin (HCC) Iron deficiency anemia, unspecified iron deficiency anemia type Anxiety and depression Dysthymic disorder Chronic back pain, unspecified back location, unspecified back pain laterality Class 3 severe obesity without serious comorbidity with body mass index (BMI) of 45.0 to 49.9 in adult, unspecified obesity type (HCC) Chronic kidney disease, unspecified CKD stage 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 Pre-operative examination- Primary Preoperative examination, unspecified Vaginal prolapse Unspecified prolapse of vaginal garrett Anxiety and depression Dysthymic disorder Chronic intractable headache, unspecified headache type Chronic kidney disease, unspecified CKD stage Class 3 severe obesity due to excess calories with serious comorbidity and body mass index (BMI) of 40.0 to 44.9 in adult ([facility]) 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 Essential hypertension, benign Fibromyalgia Mylagia and myositis, unspecified Gastroesophageal reflux disease with esophagitis, unspecified whether hemorrhage Hypothyroidism, unspecified type Iron deficiency anemia, unspecified iron deficiency anemia type Mixed hyperlipidemia 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 Obstructive sleep apnea (adult) (pediatric) RLS (restless legs syndrome) Restless legs syndrome (RLS) Type 2 diabetes mellitus with other specified complication, without long-term current use of insulin ([facility]) 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 Spinal stenosis, lumbar region, with neurogenic claudication Pre-op evaluation- Primary Preoperative examination, unspecified RLS (restless legs syndrome) Restless legs syndrome (RLS) Fibromyalgia Mylagia and myositis, unspecified Essential hypertension, benign Mixed hyperlipidemia 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 LBBB (left bundle branch block) Other left bundle branch block 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 Obstructive sleep apnea (adult) (pediatric) Other irritable bowel syndrome Anxiety and depression Dysthymic disorder Class 3 severe obesity due to excess calories with serious comorbidity and body mass index (BMI) of 40.0 to 44.9 in adult ([facility]) Urinary frequency Multiple joint pain- Primary Pain in joint, multiple sites Other fatigue Decreased mobility Other symptoms involving nervous and musculoskeletal systems Essential hypertension, benign Primary osteoarthritis of right hand Primary localized osteoarthrosis, hand Primary osteoarthritis, left hand Type 2 diabetes mellitus without complication, without long-term current use of insulin ([facility]) RLS (restless legs syndrome) Restless legs syndrome (RLS) Loneliness Other psychological or physical stress, not elsewhere classified [facility] Diagnosis Pre-operative examination- Primary Preoperative examination, unspecified Fuchs' endothelial dystrophy Endothelial corneal dystrophy Type 2 diabetes mellitus with other specified complication, without long-term current use of insulin ([facility]) Essential hypertension, benign Mixed hyperlipidemia Hypothyroidism, unspecified type Iron deficiency anemia, unspecified iron deficiency anemia type Anxiety and depression Dysthymic disorder Chronic back pain, unspecified back location, unspecified back pain laterality Primary osteoarthritis involving multiple joints Gastroesophageal reflux disease, esophagitis presence not specified Other irritable bowel syndrome 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 Obstructive sleep apnea (adult) (pediatric) Chronic intractable headache, unspecified headache type RLS (restless legs syndrome) Restless legs syndrome (RLS) Fibromyalgia Mylagia and myositis, unspecified Morbid obesity (HCC) Morbid obesity Pre-operative examination- Primary Preoperative examination, unspecified Colon cancer screening Special screening for malignant neoplasms, colon Chronic intractable headache, unspecified headache type Fibromyalgia Mylagia and myositis, unspecified RLS (restless legs syndrome) Restless legs syndrome (RLS) Essential hypertension, benign Mixed hyperlipidemia 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 Obstructive sleep apnea (adult) (pediatric) Gastroesophageal reflux disease, unspecified whether esophagitis present Other irritable bowel syndrome Hypothyroidism, unspecified type Type 2 diabetes mellitus with other specified complication, without long-term current use of insulin (HCC) Iron deficiency anemia, unspecified iron deficiency anemia type Anxiety and depression Dysthymic disorder Chronic back pain, unspecified back location, unspecified back pain laterality Class 3 severe obesity without serious comorbidity with body mass index (BMI) of 45.0 to 49.9 in adult, unspecified obesity type (HCC) Chronic kidney disease, unspecified CKD stage 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 Pre-operative examination- Primary Preoperative examination, unspecified Vaginal prolapse Unspecified prolapse of vaginal garrett Anxiety and depression Dysthymic disorder Chronic intractable headache, unspecified headache type Chronic kidney disease, unspecified CKD stage Class 3 severe obesity due to excess calories with serious comorbidity and body mass index (BMI) of 40.0 to 44.9 in adult (HCC) 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 Essential hypertension, benign Fibromyalgia Mylagia and myositis, unspecified Gastroesophageal reflux disease with esophagitis, unspecified whether hemorrhage Hypothyroidism, unspecified type Iron deficiency anemia, unspecified iron deficiency anemia type Mixed hyperlipidemia 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 Obstructive sleep apnea (adult) (pediatric) RLS (restless legs syndrome) Restless legs syndrome (RLS) Type 2 diabetes mellitus with other specified complication, without long-term current use of insulin (HCC) 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 Spinal stenosis, lumbar region, with neurogenic claudication Pre-op evaluation- Primary Preoperative examination, unspecified RLS (restless legs syndrome) Restless legs syndrome (RLS) Fibromyalgia Mylagia and myositis, unspecified Essential hypertension, benign Mixed hyperlipidemia 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 LBBB (left bundle branch block) Other left bundle branch block 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 Obstructive sleep apnea (adult) (pediatric) Other irritable bowel syndrome Anxiety and depression Dysthymic disorder Class 3 severe obesity due to excess calories with serious comorbidity and body mass index (BMI) of 40.0 to 44.9 in adult (HCC) Urinary frequency Class 3 severe obesity without serious comorbidity with body mass index (BMI) of 45.0 to 49.9 in adult, unspecified obesity type ([facility])- Primary Gastroesophageal reflux disease with esophagitis, unspecified whether hemorrhage Dietary counseling Dietary surveillance and counseling Controlled type 2 diabetes mellitus without complication, without long-term current use of insulin ([facility]) [facility] Diagnosis Pre-operative examination- Primary Preoperative examination, unspecified Fuchs' endothelial dystrophy Endothelial corneal dystrophy Type 2 diabetes mellitus with other specified complication, without long-term current use of insulin ([facility]) Essential hypertension, benign Mixed hyperlipidemia Hypothyroidism, unspecified type Iron deficiency anemia, unspecified iron deficiency anemia type Anxiety and depression Dysthymic disorder Chronic back pain, unspecified back location, unspecified back pain laterality Primary osteoarthritis involving multiple joints Gastroesophageal reflux disease, esophagitis presence not specified Other irritable bowel syndrome 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 Obstructive sleep apnea (adult) (pediatric) Chronic intractable headache, unspecified headache type RLS (restless legs syndrome) Restless legs syndrome (RLS) Fibromyalgia Mylagia and myositis, unspecified Morbid obesity (HCC) Morbid obesity Pre-operative examination- Primary Preoperative examination, unspecified Colon cancer screening Special screening for malignant neoplasms, colon Chronic intractable headache, unspecified headache type Fibromyalgia Mylagia and myositis, unspecified RLS (restless legs syndrome) Restless legs syndrome (RLS) Essential hypertension, benign Mixed hyperlipidemia 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 Obstructive sleep apnea (adult) (pediatric) Gastroesophageal reflux disease, unspecified whether esophagitis present Other irritable bowel syndrome Hypothyroidism, unspecified type Type 2 diabetes mellitus with other specified complication, without long-term current use of insulin (HCC) Iron deficiency anemia, unspecified iron deficiency anemia type Anxiety and depression Dysthymic disorder Chronic back pain, unspecified back location, unspecified back pain laterality Class 3 severe obesity without serious comorbidity with body mass index (BMI) of 45.0 to 49.9 in adult, unspecified obesity type (HCC) Chronic kidney disease, unspecified CKD stage 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 Pre-operative examination- Primary Preoperative examination, unspecified Vaginal prolapse Unspecified prolapse of vaginal garrett Anxiety and depression Dysthymic disorder Chronic intractable headache, unspecified headache type Chronic kidney disease, unspecified CKD stage Class 3 severe obesity due to excess calories with serious comorbidity and body mass index (BMI) of 40.0 to 44.9 in adult (HCC) 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 Essential hypertension, benign Fibromyalgia Mylagia and myositis, unspecified Gastroesophageal reflux disease with esophagitis, unspecified whether hemorrhage Hypothyroidism, unspecified type Iron deficiency anemia, unspecified iron deficiency anemia type Mixed hyperlipidemia 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 Obstructive sleep apnea (adult) (pediatric) RLS (restless legs syndrome) Restless legs syndrome (RLS) Type 2 diabetes mellitus with other specified complication, without long-term current use of insulin ([facility]) 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 Spinal stenosis, lumbar region, with neurogenic claudication Pre-op evaluation- Primary Preoperative examination, unspecified RLS (restless legs syndrome) Restless legs syndrome (RLS) Fibromyalgia Mylagia and myositis, unspecified Essential hypertension, benign Mixed hyperlipidemia 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 LBBB (left bundle branch block) Other left bundle branch block 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 Obstructive sleep apnea (adult) (pediatric) Other irritable bowel syndrome Anxiety and depression Dysthymic disorder Class 3 severe obesity due to excess calories with serious comorbidity and body mass index (BMI) of 40.0 to 44.9 in adult (HCC) Urinary frequency Class 3 severe obesity without serious comorbidity with body mass index (BMI) of 45.0 to 49.9 in adult, unspecified obesity type ([facility])- Primary Gastroesophageal reflux disease with esophagitis, unspecified whether hemorrhage Dietary counseling Dietary surveillance and counseling Controlled type 2 diabetes mellitus without complication, without long-term current use of insulin ([facility]) [facility] Diagnosis Pre-operative examination- Primary Preoperative examination, unspecified Fuchs' endothelial dystrophy Endothelial corneal dystrophy Type 2 diabetes mellitus with other specified complication, without long-term current use of insulin ([facility]) Essential hypertension, benign Mixed hyperlipidemia Hypothyroidism, unspecified type Iron deficiency anemia, unspecified iron deficiency anemia type Anxiety and depression Dysthymic disorder Chronic back pain, unspecified back location, unspecified back pain laterality Primary osteoarthritis involving multiple joints Gastroesophageal reflux disease, esophagitis presence not specified Other irritable bowel syndrome 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 Obstructive sleep apnea (adult) (pediatric) Chronic intractable headache, unspecified headache type RLS (restless legs syndrome) Restless legs syndrome (RLS) Fibromyalgia Mylagia and myositis, unspecified Morbid obesity (HCC) Morbid obesity Pre-operative examination- Primary Preoperative examination, unspecified Colon cancer screening Special screening for malignant neoplasms, colon Chronic intractable headache, unspecified headache type Fibromyalgia Mylagia and myositis, unspecified RLS (restless legs syndrome) Restless legs syndrome (RLS) Essential hypertension, benign Mixed hyperlipidemia 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 Obstructive sleep apnea (adult) (pediatric) Gastroesophageal reflux disease, unspecified whether esophagitis present Other irritable bowel syndrome Hypothyroidism, unspecified type Type 2 diabetes mellitus with other specified complication, without long-term current use of insulin (HCC) Iron deficiency anemia, unspecified iron deficiency anemia type Anxiety and depression Dysthymic disorder Chronic back pain, unspecified back location, unspecified back pain laterality Class 3 severe obesity without serious comorbidity with body mass index (BMI) of 45.0 to 49.9 in adult, unspecified obesity type (HCC) Chronic kidney disease, unspecified CKD stage 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 Pre-operative examination- Primary Preoperative examination, unspecified Vaginal prolapse Unspecified prolapse of vaginal garrett Anxiety and depression Dysthymic disorder Chronic intractable headache, unspecified headache type Chronic kidney disease, unspecified CKD stage Class 3 severe obesity due to excess calories with serious comorbidity and body mass index (BMI) of 40.0 to 44.9 in adult (HCC) 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 Essential hypertension, benign Fibromyalgia Mylagia and myositis, unspecified Gastroesophageal reflux disease with esophagitis, unspecified whether hemorrhage Hypothyroidism, unspecified type Iron deficiency anemia, unspecified iron deficiency anemia type Mixed hyperlipidemia 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 Obstructive sleep apnea (adult) (pediatric) RLS (restless legs syndrome) Restless legs syndrome (RLS) Type 2 diabetes mellitus with other specified complication, without long-term current use of insulin (HCC) 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 Spinal stenosis, lumbar region, with neurogenic claudication Pre-op evaluation- Primary Preoperative examination, unspecified RLS (restless legs syndrome) Restless legs syndrome (RLS) Fibromyalgia Mylagia and myositis, unspecified Essential hypertension, benign Mixed hyperlipidemia 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 LBBB (left bundle branch block) Other left bundle branch block 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 Obstructive sleep apnea (adult) (pediatric) Other irritable bowel syndrome Anxiety and depression Dysthymic disorder Class 3 severe obesity due to excess calories with serious comorbidity and body mass index (BMI) of 40.0 to 44.9 in adult (HCC) Urinary frequency RLS (restless legs syndrome)- Primary Restless legs syndrome (RLS) Iron deficiency anemia, unspecified iron deficiency anemia type [facility] Pre[facility]operative examination- Primary Preoperative examination, unspecified Fuchs' endothelial dystrophy Endothelial corneal dystrophy Type 2 diabetes mellitus with other specified complication, without long-term current use of insulin ([facility]) Essential hypertension, benign Mixed hyperlipidemia Hypothyroidism, unspecified type Iron deficiency anemia, unspecified iron deficiency anemia type Anxiety and depression Dysthymic disorder Chronic back pain, unspecified back location, unspecified back pain laterality Primary osteoarthritis involving multiple joints Gastroesophageal reflux disease, esophagitis presence not specified Other irritable bowel syndrome 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 Obstructive sleep apnea (adult) (pediatric) Chronic intractable headache, unspecified headache type RLS (restless legs syndrome) Restless legs syndrome (RLS) Fibromyalgia Mylagia and myositis, unspecified Morbid obesity (HCC) Morbid obesity Pre-operative examination- Primary Preoperative examination, unspecified Colon cancer screening Special screening for malignant neoplasms, colon Chronic intractable headache, unspecified headache type Fibromyalgia Mylagia and myositis, unspecified RLS (restless legs syndrome) Restless legs syndrome (RLS) Essential hypertension, benign Mixed hyperlipidemia 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 Obstructive sleep apnea (adult) (pediatric) Gastroesophageal reflux disease, unspecified whether esophagitis present Other irritable bowel syndrome Hypothyroidism, unspecified type Type 2 diabetes mellitus with other specified complication, without long-term current use of insulin ([facility]) Iron deficiency anemia, unspecified iron deficiency anemia type Anxiety and depression Dysthymic disorder Chronic back pain, unspecified back location, unspecified back pain laterality Class 3 severe obesity without serious comorbidity with body mass index (BMI) of 45.0 to 49.9 in adult, unspecified obesity type ([facility]) Chronic kidney disease, unspecified CKD stage 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 Pre-operative examination- Primary Preoperative examination, unspecified Vaginal prolapse Unspecified prolapse of vaginal garrett Anxiety and depression Dysthymic disorder Chronic intractable headache, unspecified headache type Chronic kidney disease, unspecified CKD stage Class 3 severe obesity due to excess calories with serious comorbidity and body mass index (BMI) of 40.0 to 44.9 in adult ([facility]) 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 Essential hypertension, benign Fibromyalgia Mylagia and myositis, unspecified Gastroesophageal reflux disease with esophagitis, unspecified whether hemorrhage Hypothyroidism, unspecified type Iron deficiency anemia, unspecified iron deficiency anemia type Mixed hyperlipidemia 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 Obstructive sleep apnea (adult) (pediatric) RLS (restless legs syndrome) Restless legs syndrome (RLS) Type 2 diabetes mellitus with other specified complication, without long-term current use of insulin ([facility]) 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 Spinal stenosis, lumbar region, with neurogenic claudication Pre-op evaluation- Primary Preoperative examination, unspecified RLS (restless legs syndrome) Restless legs syndrome (RLS) Fibromyalgia Mylagia and myositis, unspecified Essential hypertension, benign Mixed hyperlipidemia 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 LBBB (left bundle branch block) Other left bundle branch block 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 Obstructive sleep apnea (adult) (pediatric) Other irritable bowel syndrome Anxiety and depression Dysthymic disorder Class 3 severe obesity due to excess calories with serious comorbidity and body mass index (BMI) of 40.0 to 44.9 in adult ([facility]) Urinary frequency History of right hip replacement- Primary Primary osteoarthritis of right hip Primary localized osteoarthrosis, pelvic region and thigh documented in this encounter [facility] Discharge instructions* Instructions* Sima Man MD - 03/03/2021 Call your doctor with any medication questions or if you notice any side effects from your medications. If you are unable to fill your medications, please call your [place] immediately. The office number is located with your follow-up appointment information. Call your doctor if any redness or drainage from the wound site. DO NOT stop taking your medication unless instructed to do so by your doctor. Read the drug information material that were given to you and take medications as instructed by your doctor. New drugs may have been added to your medications, that will strengthen your heart and prevent re-stenosis of the coronary arteries. Drink 6 glasses of water (8 ounces each) over the next 24 hours. Water helps clear the dye from your body. No alcoholic beverages for 24 hours. It may interfere with healing. No exercise or sex for 5 days. Call 911 for chest pain, arm pain, nausea, neck pain, dizziness or unusual sweating AND your pain has not relieved with 2 doses of Nitroglycerin. Call your doctor if a lump at the puncture site enlarges or is larger than marble size. Call your doctor for numbness, tingling, or swelling of the fingers, hand or wrist. Call your doctor for increased area or bruising with discoloration extending into the arm. If bleeding occurs, hold pressure with your thumb against the puncture site and your finger againstthe back of the wrist for 10 minutes, if BLEEDING continues CALL 911. OK to shower. No tub baths, swimming pools or hot tub soaking for three days. Wash site daily with soap and water, dry gently. The healing wound should remain soft and dry. Keepsite clean and dry, no soaking of wrist for three days (no cleaning or dish washing). Remove band aid the day after procedure and leave open to air. No bending of affected wrist for 24 hours. DO NOT lift more than three pounds for 3-[address] for 24 hours. GIVE PCI PACKET (FROM TEXTILE SCIENCE TECHNICIAN) TO PATIENT Give Coronary Artery Discharge Booklet PLEASE CALL YOUR HEART DOCTOR IF YOU CANNOT GET YOUR MEDICATIONS. THE NUMBER IS LISTED WITH YOUR FOLLOW-UP APPOINTMENT. Procedure Sedation Instructions 1. If you have received sedation: you must have someone drive you home 2. You should not drive a car, operate machinery, drink alcohol or perform any activity that requires alertness for the rest of the day. The effects of the sedative should be gone by tomorrow. Cardiac Rehab The Cardiac Rehabilitation Team at [facility] consists of highly skilled healthcare professionals, including nurses, physicians, and exercise physiologists all working together to help you return to a healthy, and active lifestyle. As a survivor of heart disease the program is designed to answer all of your questions about the disease through education, activity, monitored exercise, diet modification, and medication adherence. This program is proven to reduce reoccurrence of heart disease and reduce readmission. It is important for you to enroll in the program by attending orientation. For any questions regarding this valuable service please call # [phone] If you have questions, issues, or concerns please call or text the Ischemic Heart Disease coordinator Advance Practice Nurse, Esperanza Ann, cell phone # [phone] documented in this [facility] Work Phone: Patient's home Plan of care note* Visit Details Visit Type -PT SOC Discipline -Physical Therapy Problems Problem Description Start Date Status Goals Interve ntions Medication Education Disciplines: Skilled Services 03/17/2023 Active 1 goal linked to scheduled/docume nted intervention 1 goal intervention scheduled/documen jay in this visit Sepsis Disciplines: Skilled Services 03/17/2023 Active 1 goal linked to scheduled/docume nted intervention 1 goal intervention scheduled/documen jay in this visit Physician Specific Parameters Disciplines: Skilled Services 03/17/2023 Active 1 goal linked to scheduled/docume nted intervention 1 goal intervention scheduled/documen jay in this visit Risk for Falls Disciplines: Skilled Services 03/17/2023 Active 1 goal linked to scheduled/docume nted intervention 1 goal intervention scheduled/documen jay in this visit Pain Disciplines: Skilled Services 03/17/2023 Active 1 goal linked to scheduled/docume nted intervention 1 goal intervention scheduled/documen jay in this visit Diabetic Foot Care Disciplines: Skilled Services 03/17/2023 Active 1 goal linked to scheduled/docume nted intervention 1 goal intervention scheduled/documen jay in this visit High Risk Medications Disciplines: Skilled Services 03/17/2023 Resolved on 03/17/2023 1 goal linked to scheduled/docume nted intervention 3 goal interventions scheduled/documen jay in this visit Advance Directives Disciplines: Skilled Services 03/17/2023 Resolved on 03/17/2023 1 goal linked to scheduled/docume nted intervention 1 goal intervention scheduled/documen jay in this visit PT Impaired muscle performance and/or ROM Disciplines: PT 03/17/2023 Active 1 goal linked to scheduled/docume nted intervention 1 goal intervention scheduled/documen jay in this visit PT Orthopedic Condition Disciplines: PT 03/17/2023 Active 1 goal linked to scheduled/docume nted intervention 3 goal interventions scheduled/documen jay in this visit PT Learning Assessment Disciplines: PT 03/17/2023 Active 1 goal linked to scheduled/docume nted intervention 1 goal intervention scheduled/documen jay in this visit PT Cardiovascular Disease Disciplines: PT 03/17/2023 Active 1 goal linked to scheduled/docume nted intervention 1 goal intervention scheduled/documen jay in this visit Goals Goal Associated Problem Outcome Goal Met? Visit Notes Patient/caregiver will demonstrate ability to obtain, store, identify and administer ordered medications, keep accurate medication list in home, and adhere to medication schedule Description: Patient/caregiver will demonstrate ability to obtain, store, identify and administer ordered medications, keep accurate medication list in home, and adhere to medication schedule by 05/15/23. Medication Education No Patient/caregiver will be able to identify and report symptoms of sepsis Description: Patient/caregiver will be able to identify signs/symptoms of sepsis infection and will verbalize actions to take if suspected by 05/15/23. Sepsis No Patient to maintain parameters within physician-specified ranges throughout certification period Physician Specific Parameters No Manage Risk for falls Description: Patient/caregiver will verbalize knowledge of individualized fall prevention strategies by 05/15/23. Risk for Falls No Manage Pain Description: Patient/caregiver will verbalize knowledge and understanding of appropriate techniques to control pain, including pain medication and non-pharmacological techniques. Patient will verbalize or demonstrate an acceptable level of pain as evidenced by a pain score of <5/10 and improvement in ability to perform activities of daily living to be achieved by 05/15/23. Pain No Manage diabetic foot care Description: Patient/caregiver will demonstrate basic understanding of and compliance with diabetic self-care management as evidenced by verbalizing purpose of daily foot care and assessment by 05/15/23. Diabetic Foot Care No Patient/caregiver will teach back high risk medication side effect and precaution education High Risk Medications Completed Yes Patient/caregiver will make healthcare providers aware of and any changes to Advance Directives throughout certification period Advance Directives Completed Yes Improved Muscle Performance and/or ROM Description: LTG: Patient will demonstrate improved muscle performance to meet functional goals as evidenced by ability to tolerate 10 minutes of standing activity, to be achieved by 04/08/23. . STG: Patient and/or caregiver will verbalize/demonstrate independence with home exercise program, to improve functional mobility, to be achieved by 03/25/23. PT Impaired muscle performance and/or ROM No Manage Orthopedic Condition Description: Improve patient and/or caregiver understanding of post surgical and/or non-surgical orthopedic intervention management as evidenced by patient and/or caregiver able to verbalize, demonstrate, and teach back instruction, to be achieved by 05/15/23. PT Orthopedic Condition No Demonstrate understanding of education Description: Patient and/or caregiver will understand educational instruction to be achieved by 05/15/23. PT Learning Assessment No Manage Secondary Cardiovascular disease Description: Improve patient and/or caregiver understanding of secondary cardiovascular disease management as evidenced by patient and/or caregiver able to verbalize, demonstrate, and teach back instruction, to be achieved by 05/15/23. PT Cardiovascular Disease No Interventions Intervention Associated Problem/Goal Status Variance Visit Notes Medication Education Description: Evaluate/instruct patient/caregiver on obtaining, storing, identifying and administering ordered medications as well as keeping accurate medication list in the home and adhereing to medication schedule Problem:Medication Education Goal:Patient/caregive r will demonstrate ability to obtain, store, identify and administer ordered medications, keep accurate medication list in home, and adhere to medication schedule Completed Patient instructed on importance of keeping accurate medication list in home and adhering to medication schedule. Risk of Sepsis Description: Patient is at risk for sepsis. Monitor closely for s/s of sepsis. Problem:Sepsis Goal:Patient/caregive r will be able to identify and report symptoms of sepsis Completed SPO2 Description: Notify Dr. Hernandez if pulse ox is <92% at rest. Problem:Physician Specific Parameters Goal:Patient to maintain parameters within physician-specified ranges throughout certification period Completed Instruct on individual fall risk factors and strategies to prevent falls and injuries caused by falls. Problem:Risk for Falls Goal:Manage Risk for falls Completed PT: Patient instructed on Eliminating Environmental Hazards: Keep pathways clear, Remove unsafe rugs, Move furniture from pathways, Keep rooms and walkways well lit and Wear supportive shoes or non-skid socks Managing Impaired Functional Mobility: Use assistive device(s): front wheeled walker Managing Pain Instruct on pain and instruct on strategies to control pain Problem:Pain Goal:Manage Pain Completed patient instructed on techniques to control pain including Pharmacological measures and Non-Pharmacological measures; rest, positioning/elevation and use of thermal modalities, apply ice to affected area . Monitor lower extremities for skin lesions and educate on proper foot care Problem:Diabetic Foot Care Goal:Manage diabetic foot care Completed patient instructed on diabetic foot care including daily skin inspection and wearing proper footwear/avoiding going barefoot. Opioids- educated on high risk medication Problem:High Risk Medications Goal:Patient/caregive r will teach back high risk medication side effect and precaution education Completed patient educated on taking medication(s) as prescribed by provider. Do not stop medication or alter doses without speaking with your provider. Discuss medication effectiveness or side effect concerns with your provider and home care team. Only take opioids as prescribed, do not share your medications, and take proper precautions in storing and properly disposing of opioids once no longer needed. Possible side effects of opioid medication including sedation, decreased rate of breathing, and constipation. Report over sedation to prescribing provider and practice deep breathing techniques every hour while awake. Prevent constipation by increasing water and fiber intake, increasing activity as tolerated, and use stool softener(s) as prescribed. Hypoglycemic (including insulin)- educated on high risk medication Problem:High Risk Medications Goal:Patient/caregive r will teach back high risk medication side effect and precaution education Completed patient educated on taking medication(s) as prescribed by provider. Do not stop medication or skip/alter doses without speaking with your provider. Discuss medication effectiveness or side effect concerns with your provider and home care team. Check blood sugars and keep log as ordered by provider. Monitor for side effects of hypoglycemia such as increased weakness or shaking, moist skin, sweating, fast heartbeat, dizziness, sudden hunger, confusion, pale skin, numbness in mouth or tongue, irritability, nervousness, unsteadiness, nightmares, bad dreams, and restless sleep. Checking your blood sugar routinely and eating a consistent diabetic diet can help regulate blood sugars and reduce side effects. Antiplatelet- educated on high risk medication Problem:High Risk Medications Goal:Patient/caregive r will teach back high risk medication side effect and precaution education Completed patient educated on taking medication(s) as prescribed by provider. Do not stop medication or alter doses without speaking with your provider. Discuss medication effectiveness or side effect concerns with your provider and home care team. Discuss all medications you are taking, even [id number] medicines, with your provider and pharmacist since many drugs can interact with antiplatelet medications. If you forget to take a dose, DO NOT take a double dose. Take the missed dose as soon as possible on the same day. DO NOT take a double dose the next day to make up for the missed dose. Watch for signs of abnormal or excessive bleeding and bruising (refer to Bleeding Precautions education). Call your health care provider right away if you suspect something is wrong. Determine patient's Advance Directive Status Description: Patient does have advance directives. Patient's Advance Directives determined to be available in Home Healthcare DPOA and Living Will. Problem:Advance Directives Goal:Patient/caregive r will make healthcare providers aware of and any changes to Advance Directives throughout certification period Completed Discussed Advance Directives with Patient and/or Caregiver. Referred patient to Home Care handbook for further information on Healthcare DPOA & Living Will. Physical Therapy Therapeutic Exercises Problem:PT Impaired muscle performance and/or ROM Goal:Improved Muscle Performance and/or ROM Completed patient instructed on strengthening exercises including Supine : GS,QS,HS, HIPADD, HIP ABD, HEEL SLIDES, SAQ, X 10 with verbal, tactile and written cues for technique /reps. patient instructed to perform home exercise program twice a day which included hourly ambulation . Instruct on orthopedic precautions and weight bearing restrictions Description: Orthopedic precautions including right posterior hip: no hip flexion > 90 degrees, no adduction and no IR/ER rotation of involved extermity. Weight bearing restrictions include: WBAT of involved extremity. Problem:PT Orthopedic Condition Goal:Manage Orthopedic Condition Completed patient instructed on orthopedic precautions and weight bearing restrictions. Instruct on management of edema Problem:PT Orthopedic Condition Goal:Manage Orthopedic Condition Completed Instruct patient on management of edema including elevation of RLE above the level of the heart and ice. Instruct on self-management of post surgical and/or non-surgical orthopedic intervention Problem:PT Orthopedic Condition Goal:Manage Orthopedic Condition Completed patient instructed on managagement of orthopedic condition, staying well hydrated, eating foods with high protein, signs and symptoms of infection, signs and symptoms of DVT/PE, follow provider guidance for showering and instructed on when to call provider. Instruct and educate on knowledge deficits Problem:PT Learning Assessment Goal:Demonstrate understanding of education Completed patient verbalize and/or demonstrate understanding of physical therapy education including cardiac disease management, orthopedic condition management, weight bearing precautions, surgical precautions, pain management, fall prevention strategies, home safety, functional activity and home exercise program. Education methods include: verbal cues and written instructions. Further education required to improve knowledge and compliance with orthopedic condition management, surgical precautions, pain management, fall prevention strategies, home safety, functional activity and home exercise program. Instruct on signs, symptoms, and management of secondary cardiovascular disease Problem:PT Cardiovascular Disease Goal:Manage Secondary Cardiovascular disease Completed Instructed patient on use of RPE and energy conservation. documented in this encounter [facility]'s home Plan of care note* Visit Details Visit Type -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 ROUTINE Discipline -Physical Therapy Problems Problem Description Start Date Status Goals Interve ntions Sepsis Disciplines: Skilled Services 03/17/2023 Active 1 goal linked to scheduled/document ed intervention 1 goal intervention scheduled/document ed in this visit Physician Specific Parameters Disciplines: Skilled Services 03/17/2023 Active 1 goal linked to scheduled/document ed intervention 1 goal intervention scheduled/document ed in this visit Risk for Falls Disciplines: Skilled Services 03/17/2023 Active 1 goal linked to scheduled/document ed intervention 1 goal intervention scheduled/document ed in this visit Pain Disciplines: Skilled Services 03/17/2023 Active 1 goal linked to scheduled/document ed intervention 1 goal intervention scheduled/document ed in this visit PT Impaired muscle performance and/or ROM Disciplines: PT 03/17/2023 Active 1 goal linked to scheduled/document ed intervention 1 goal intervention scheduled/document ed in this visit PT Impaired mobility Disciplines: PT 03/17/2023 Active 2 goals linked to scheduled/document ed interventions 2 goal interventions scheduled/document ed in this visit PT Impaired gait Disciplines: PT 03/17/2023 Active 1 goal linked to scheduled/document ed intervention 1 goal intervention scheduled/document ed in this visit PT Orthopedic Condition Disciplines: PT 03/17/2023 Active 1 goal linked to scheduled/document ed intervention 3 goal interventions scheduled/document ed in this visit PT Learning Assessment Disciplines: PT 03/17/2023 Active 1 goal linked to scheduled/document ed intervention 1 goal intervention scheduled/document ed in this visit Goals Goal Associated Problem Outcome Goal Met? Visit Notes Patient/caregiver will be able to identify and report symptoms of sepsis Description: Patient/caregiver will be able to identify signs/symptoms of sepsis infection and will verbalize actions to take if suspected by 05/15/23. Sepsis No Patient to maintain parameters within physician-specified ranges throughout certification period Physician Specific Parameters No Manage Risk for falls Description: Patient/caregiver will verbalize knowledge of individualized fall prevention strategies by 05/15/23. Risk for Falls No Manage Pain Description: Patient/caregiver will verbalize knowledge and understanding of appropriate techniques to control pain, including pain medication and non-pharmacological techniques. Patient will verbalize or demonstrate an acceptable level of pain as evidenced by a pain score of <5/10 and improvement in ability to perform activities of daily living to be achieved by 05/15/23. Pain No Improved Muscle Performance and/or ROM Description: LTG: Patient will demonstrate improved muscle performance to meet functional goals as evidenced by ability to tolerate 10 minutes of standing activity, to be achieved by 04/08/23. . STG: Patient and/or caregiver will verbalize/demonstrate independence with home exercise program, to improve functional mobility, to be achieved by 03/25/23. PT Impaired muscle performance and/or ROM No Improved Transfers Description: LTG: Patient will demonstrate safe transfers to/from bed, chair, toilet, couch, shower/tub and car independently with AD, to be achieved by 04/08/23. . PT Impaired mobility No Improved Bed Mobility Description: STG: Patient will demonstrate improved bed mobility, ability to position self and supine <> sit independently to be achieved by 04/01/23. . PT Impaired mobility No Improved Gait Description: STG: Patient will demonstrate improved gait ability as evidenced by ambulation 100 feet with front wheeled walker independently with AD, in order to maneuver throughout home , to be achieved by 04/01/23. LTG: Patient will demonstrate improved gait ability as evidenced by ambulation 100 feet with single point cane independently with AD, to return to safe household and community ambulation, in order to return to plf, to be achieved by 04/08/23. . PT Impaired gait No Manage Orthopedic Condition Description: Improve patient and/or caregiver understanding of post surgical and/or non-surgical orthopedic intervention management as evidenced by patient and/or caregiver able to verbalize, demonstrate, and teach back instruction, to be achieved by 05/15/23. PT Orthopedic Condition No Demonstrate understanding of education Description: Patient and/or caregiver will understand educational instruction to be achieved by 05/15/23. PT Learning Assessment No Interventions Intervention Associated Problem/Goal Status Variance Visit Notes Risk of Sepsis Description: Patient is at risk for sepsis. Monitor closely for s/s of sepsis. Problem:Sepsis Goal:Patient/caregive r will be able to identify and report symptoms of sepsis Completed SPO2 Description: Notify Dr. Hernandez if pulse ox is <92% at rest. Problem:Physician Specific Parameters Goal:Patient to maintain parameters within physician-specified ranges throughout certification period Completed Instruct on individual fall risk factors and strategies to prevent falls and injuries caused by falls. Problem:Risk for Falls Goal:Manage Risk for falls Completed PT: Patient instructed on Managing Impaired Functional Mobility: Use assistive device(s): front wheeled walker Instruct on pain and instruct on strategies to control pain Problem:Pain Goal:Manage Pain Completed patient instructed on techniques to control pain including Pharmacological measures and Non-Pharmacological measures; rest, positioning/elevation, mobility/therapeutic exercise, use of DME/assistive devices and use of thermal modalities, apply ice to affected area for the following prescribed frequency: 20min on 40-60min off. Physical Therapy Therapeutic Exercises Problem:PT Impaired muscle performance and/or ROM Goal:Improved Muscle Performance and/or ROM Completed patient instructed on strengthening and range of motion exercises including supine QS, GS, AP, heelslides, SAQ, hip add pillow squeeze, seated LAQ, standing HS curl x10-15 reps with verbal, tactile, visual and written cues for tech/form/pain tolerable ranges. patient instructed to perform home exercise program twice a day which included the list above. Physical Therapy Transfer Training Problem:PT Impaired mobility Goal:Improved Transfers Completed Mod indep from recliner and EOB. Demonstrated safe positioning and tech to maintain compliance with DEYSI hip precautions for posterior approach. Physical Therapy Bed Mobility Training Problem:PT Impaired mobility Goal:Improved Bed Mobility Completed Bed mobility training and instruction to patient, including supine<>sit and repositioning self with supervision and verbal cues for tech. Training on the following adaptive equipment/durable medical equipment: leg toolman. Physical Therapy Gait Training Problem:PT Impaired gait Goal:Improved Gait Completed Gait training and instruction to patient on safe ambulation with front wheeled walker for 45 feet x2 with supervision, with verbal cues for corrections of gait deviations including upright posture, heel toe pattern and awareness to UE reliance on device and decrease as able. Instruct on orthopedic precautions and weight bearing restrictions Description: Orthopedic precautions including right posterior hip: no hip flexion > 90 degrees, no adduction and no IR/ER rotation of involved extermity. Weight bearing restrictions include: WBAT of involved extremity. Problem:PT Orthopedic Condition Goal:Manage Orthopedic Condition Completed patient instructed on orthopedic precautions. Instruct on management of edema Problem:PT Orthopedic Condition Goal:Manage Orthopedic Condition Completed Instruct patient on management of edema including elevation of RLE above the level of the heart, ice and medication adherence strategies. Instruct on self-management of post surgical and/or non-surgical orthopedic intervention Problem:PT Orthopedic Condition Goal:Manage Orthopedic Condition Completed patient instructed on managagement of orthopedic condition, staying well hydrated, eating foods with high protein, signs and symptoms of infection, signs and symptoms of DVT/PE, follow provider guidance for showering and instructed on when to call provider. Instruct and educate on knowledge deficits Problem:PT Learning Assessment Goal:Demonstrate understanding of education Completed patient verbalize and/or demonstrate understanding of physical therapy education including weight bearing precautions, surgical precautions, pain management, fall prevention strategies and functional activity. Education methods include: verbal cues, tactile cues, written instructions, visual cues and teach back. Further education required to improve knowledge and compliance with orthopedic condition management and home exercise program. documented in this encounter [facility]'s home Plan of care note* Visit Details Visit Type -PT ROUTINE Discipline -Physical Therapy Problems Problem Description Start Date Status Goals Interve ntions Sepsis Disciplines: Skilled Services 03/17/2023 Active 1 goal linked to scheduled/documen jay intervention 1 goal intervention scheduled/document ed in this visit Physician Specific Parameters Disciplines: Skilled Services 03/17/2023 Active 1 goal linked to scheduled/documen jay intervention 1 goal intervention scheduled/document ed in this visit Risk for Falls Disciplines: Skilled Services 03/17/2023 Active 1 goal linked to scheduled/documen jay intervention 1 goal intervention scheduled/document ed in this visit Pain Disciplines: Skilled Services 03/17/2023 Active 1 goal linked to scheduled/documen jay intervention 1 goal intervention scheduled/document ed in this visit Diabetic Foot Care Disciplines: Skilled Services 03/17/2023 Active 1 goal linked to scheduled/documen jay intervention 1 goal intervention scheduled/document ed in this visit PT Impaired muscle performance and/or ROM Disciplines: PT 03/17/2023 Active 1 goal linked to scheduled/documen jay intervention 1 goal intervention scheduled/document ed in this visit PT Impaired mobility Disciplines: PT 03/17/2023 Active 1 goal linked to scheduled/documen jay intervention 1 goal intervention scheduled/document ed in this visit PT Impaired gait Disciplines: PT 03/17/2023 Active 1 goal linked to scheduled/documen jay intervention 1 goal intervention scheduled/document ed in this visit PT Orthopedic Condition Disciplines: PT 03/17/2023 Active 1 goal linked to scheduled/documen jay intervention 4 goal interventions scheduled/document ed in this visit PT Learning Assessment Disciplines: PT 03/17/2023 Active 1 goal linked to scheduled/documen jay intervention 1 goal intervention scheduled/document ed in this visit PT Cardiovascular Disease Disciplines: PT 03/17/2023 Active 1 goal linked to scheduled/documen jay intervention 1 goal intervention scheduled/document ed in this visit Goals Goal Associated Problem Outcome Goal Met? Visit Notes Patient/caregiver will be able to identify and report symptoms of sepsis Description: Patient/caregiver will be able to identify signs/symptoms of sepsis infection and will verbalize actions to take if suspected by 05/15/23. Sepsis No Patient to maintain parameters within physician-specified ranges throughout certification period Physician Specific Parameters No Manage Risk for falls Description: Patient/caregiver will verbalize knowledge of individualized fall prevention strategies by 05/15/23. Risk for Falls No Manage Pain Description: Patient/caregiver will verbalize knowledge and understanding of appropriate techniques to control pain, including pain medication and non-pharmacological techniques. Patient will verbalize or demonstrate an acceptable level of pain as evidenced by a pain score of <5/10 and improvement in ability to perform activities of daily living to be achieved by 05/15/23. Pain No Manage diabetic foot care Description: Patient/caregiver will demonstrate basic understanding of and compliance with diabetic self-care management as evidenced by verbalizing purpose of daily foot care and assessment by 05/15/23. Diabetic Foot Care No Improved Muscle Performance and/or ROM Description: LTG: Patient will demonstrate improved muscle performance to meet functional goals as evidenced by ability to tolerate 10 minutes of standing activity, to be achieved by 04/08/23. . STG: Patient and/or caregiver will verbalize/demonstrate independence with home exercise program, to improve functional mobility, to be achieved by 03/25/23. PT Impaired muscle performance and/or ROM No Improved Bed Mobility Description: STG: Patient will demonstrate improved bed mobility, ability to position self and supine <> sit independently to be achieved by 04/01/23. . PT Impaired mobility No Improved Gait Description: STG: Patient will demonstrate improved gait ability as evidenced by ambulation 100 feet with front wheeled walker independently with AD, in order to maneuver throughout home , to be achieved by 04/01/23. LTG: Patient will demonstrate improved gait ability as evidenced by ambulation 100 feet with single point cane independently with AD, to return to safe household and community ambulation, in order to return to [facility], to be achieved by 04/08/23. . PT Impaired gait No Manage Orthopedic Condition Description: Improve patient and/or caregiver understanding of post surgical and/or non-surgical orthopedic intervention management as evidenced by patient and/or caregiver able to verbalize, demonstrate, and teach back instruction, to be achieved by 05/15/23. PT Orthopedic Condition No Demonstrate understanding of education Description: Patient and/or caregiver will understand educational instruction to be achieved by 05/15/23. PT Learning Assessment No Manage Secondary Cardiovascular disease Description: Improve patient and/or caregiver understanding of secondary cardiovascular disease management as evidenced by patient and/or caregiver able to verbalize, demonstrate, and teach back instruction, to be achieved by 05/15/23. PT Cardiovascular Disease No Interventions Intervention Associated Problem/Goal Status Variance Visit Notes Risk of Sepsis Description: Patient is at risk for sepsis. Monitor closely for s/s of sepsis. Problem:Sepsis Goal:Patient/caregive r will be able to identify and report symptoms of sepsis Completed SPO2 Description: Notify Dr. Hernandez if pulse ox is <92% at rest. Problem:Physician Specific Parameters Goal:Patient to maintain parameters within physician-specified ranges throughout certification period Completed Instruct on individual fall risk factors and strategies to prevent falls and injuries caused by falls. Problem:Risk for Falls Goal:Manage Risk for falls Completed PT: Patient instructed on Eliminating Environmental Hazards: Keep pathways clear, Remove unsafe rugs, Move furniture from pathways and Keep rooms and walkways well lit Managing Impaired Functional Mobility: Use assistive device(s): front wheeled walker Managing Pain Instruct on pain and instruct on strategies to control pain Problem:Pain Goal:Manage Pain Completed patient instructed on techniques to control pain including Pharmacological measures and Non-Pharmacological measures; rest, positioning/elevation and use of thermal modalities, apply ice to affected area . Monitor lower extremities for skin lesions and educate on proper foot care Problem:Diabetic Foot Care Goal:Manage diabetic foot care Completed patient instructed on diabetic foot care including daily skin inspection and wearing proper footwear/avoiding going barefoot. Physical Therapy Therapeutic Exercises Problem:PT Impaired muscle performance and/or ROM Goal:Improved Muscle Performance and/or ROM Completed patient instructed on strengthening and range of motion exercises including supine QS, GS, AP, heelslides, SAQ, hip add pillow squeeze, seated LAQ, standing HS curl x10-15 reps with verbal, tactile, visual and written cues for tech/form/pain tolerable ranges. patient instructed to perform home exercise program twice a day which included the list above. Physical Therapy Bed Mobility Training Problem:PT Impaired mobility Goal:Improved Bed Mobility Completed Bed mobility training and instruction to patient, including supine<>sit with stand by assist and verbal cues for use of leg toolman. { Physical Therapy Gait Training Problem:PT Impaired gait Goal:Improved Gait Completed Gait training and instruction to patient on safe ambulation with front wheeled walker for 35' x 4 feet with supervision, with verbal cues for corrections of gait deviations including picking up her feet and not sliding it ofrward, stangin erect , putting the wt on her legs and off of her hands/arms. Instruct on orthopedic precautions and weight bearing restrictions Description: Orthopedic precautions including right posterior hip: no hip flexion > 90 degrees, no adduction and no IR/ER rotation of involved extermity. Weight bearing restrictions include: WBAT of involved extremity. Problem:PT Orthopedic Condition Goal:Manage Orthopedic Condition Completed patient instructed on orthopedic precautions and weight bearing restrictions. Instruct on management of edema Problem:PT Orthopedic Condition Goal:Manage Orthopedic Condition Completed Instruct patient on management of edema including elevation of RLE above the level of the heart and ice. Physical therapy to perform surgical incision/wound management Description: Removal of post-op dressing on POD 7-10 ( 8/9-12). If no drainage is present, leave open to air; if drainage is present, cover with clean dressing and contact provider. Problem:PT Orthopedic Condition Goal:Manage Orthopedic Condition Completed Intervention completed this date. Incision clean , dry , well approxiamated and healing well with pts permission a photo was uploaded to the chart for MD to review Instruct on self-management of post surgical and/or non-surgical orthopedic intervention Problem:PT Orthopedic Condition Goal:Manage Orthopedic Condition Completed patient instructed on managagement of orthopedic condition, staying well hydrated, eating foods with high protein, signs and symptoms of infection, signs and symptoms of DVT/PE, follow provider guidance for showering and instructed on when to call provider. Instruct and educate on knowledge deficits Problem:PT Learning Assessment Goal:Demonstrate understanding of education Completed patient verbalize and/or demonstrate understanding of physical therapy education including fall prevention strategies, home safety, functional activity and home exercise program. Education methods include: verbal cues. Further education required to improve knowledge and compliance with fall prevention strategies, home safety, functional activity and home exercise program. Instruct on signs, symptoms, and management of secondary cardiovascular disease Problem:PT Cardiovascular Disease Goal:Manage Secondary Cardiovascular disease Completed Instructed patient on instructed on when to call provider. documented in this encounter [facility]'s home Plan of care note* Visit Details Visit Type -PT ROUTINE Discipline -Physical Therapy Problems Problem Description Start Date Status Goals Interve ntions Sepsis Disciplines: Skilled Services 03/17/2023 Active 1 goal linked to scheduled/documen jay intervention 1 goal intervention scheduled/document ed in this visit Physician Specific Parameters Disciplines: Skilled Services 03/17/2023 Active 1 goal linked to scheduled/documen jay intervention 1 goal intervention scheduled/document ed in this visit Risk for Falls Disciplines: Skilled Services 03/17/2023 Active 1 goal linked to scheduled/documen jay intervention 1 goal intervention scheduled/document ed in this visit Diabetic Foot Care Disciplines: Skilled Services 03/17/2023 Active 1 goal linked to scheduled/documen jay intervention 1 goal intervention scheduled/document ed in this visit PT Impaired muscle performance and/or ROM Disciplines: PT 03/17/2023 Active 1 goal linked to scheduled/documen jay intervention 1 goal intervention scheduled/document ed in this visit PT Impaired mobility Disciplines: PT 03/17/2023 Active 1 goal linked to scheduled/documen jay intervention 1 goal intervention scheduled/document ed in this visit PT Impaired gait Disciplines: PT 03/17/2023 Active 1 goal linked to scheduled/documen jay intervention 1 goal intervention scheduled/document ed in this visit PT Orthopedic Condition Disciplines: PT 03/17/2023 Active 1 goal linked to scheduled/documen jay intervention 3 goal interventions scheduled/document ed in this visit PT Learning Assessment Disciplines: PT 03/17/2023 Active 1 goal linked to scheduled/documen jay intervention 1 goal intervention scheduled/document ed in this visit PT Cardiovascular Disease Disciplines: PT 03/17/2023 Active 1 goal linked to scheduled/documen jay intervention 1 goal intervention scheduled/document ed in this visit Goals Goal Associated Problem Outcome Goal Met? Visit Notes Patient/caregiver will be able to identify and report symptoms of sepsis Description: Patient/caregiver will be able to identify signs/symptoms of sepsis infection and will verbalize actions to take if suspected by 05/15/23. Sepsis No Patient to maintain parameters within physician-specified ranges throughout certification period Physician Specific Parameters No Manage Risk for falls Description: Patient/caregiver will verbalize knowledge of individualized fall prevention strategies by 05/15/23. Risk for Falls No Manage diabetic foot care Description: Patient/caregiver will demonstrate basic understanding of and compliance with diabetic self-care management as evidenced by verbalizing purpose of daily foot care and assessment by 05/15/23. Diabetic Foot Care No Improved Muscle Performance and/or ROM Description: LTG: Patient will demonstrate improved muscle performance to meet functional goals as evidenced by ability to tolerate 10 minutes of standing activity, to be achieved by 04/08/23. . STG: Patient and/or caregiver will verbalize/demonstrate independence with home exercise program, to improve functional mobility, to be achieved by 03/25/23. PT Impaired muscle performance and/or ROM No Improved Transfers Description: LTG: Patient will demonstrate safe transfers to/from bed, chair, toilet, couch, shower/tub and car independently with AD, to be achieved by 04/08/23. . PT Impaired mobility No Improved Gait Description: STG: Patient will demonstrate improved gait ability as evidenced by ambulation 100 feet with front wheeled walker independently with AD, in order to maneuver throughout home , to be achieved by 04/01/23. LTG: Patient will demonstrate improved gait ability as evidenced by ambulation 100 feet with single point cane independently with AD, to return to safe household and community ambulation, in order to return to plf, to be achieved by 04/08/23. . PT Impaired gait No Manage Orthopedic Condition Description: Improve patient and/or caregiver understanding of post surgical and/or non-surgical orthopedic intervention management as evidenced by patient and/or caregiver able to verbalize, demonstrate, and teach back instruction, to be achieved by 05/15/23. PT Orthopedic Condition No Demonstrate understanding of education Description: Patient and/or caregiver will understand educational instruction to be achieved by 05/15/23. PT Learning Assessment No Manage Secondary Cardiovascular disease Description: Improve patient and/or caregiver understanding of secondary cardiovascular disease management as evidenced by patient and/or caregiver able to verbalize, demonstrate, and teach back instruction, to be achieved by 05/15/23. PT Cardiovascular Disease No Interventions Intervention Associated Problem/Goal Status Variance Visit Notes Risk of Sepsis Description: Patient is at risk for sepsis. Monitor closely for s/s of sepsis. Problem:Sepsis Goal:Patient/caregiver will be able to identify and report symptoms of sepsis Completed SPO2 Description: Notify Dr. Hernandez if pulse ox is <92% at rest. Problem:Physician Specific Parameters Goal:Patient to maintain parameters within physician-specified ranges throughout certification period Completed Instruct on individual fall risk factors and strategies to prevent falls and injuries caused by falls. Problem:Risk for Falls Goal:Manage Risk for falls Completed PT: Patient instructed on Eliminating Environmental Hazards: Keep pathways clear, Remove unsafe rugs and Move furniture from pathways Managing Impaired Functional Mobility: Use assistive device(s): front wheeled walker Managing Pain Monitor lower extremities for skin lesions and educate on proper foot care Problem:Diabetic Foot Care Goal:Manage diabetic foot care Completed patient instructed on diabetic foot care including daily skin inspection and wearing proper footwear/avoiding going barefoot. Physical Therapy Therapeutic Exercises Problem:PT Impaired muscle performance and/or ROM Goal:Improved Muscle Performance and/or ROM Completed patient instructed on strengthening and range of motion exercises including supine QS, GS, AP, heelslides, SAQ, hip add pillow squeeze, seated LAQ, standing HS curl x15 reps with verbal, tactile, visual and written cues for tech/form/pain tolerable ranges. patient instructed to perform home exercise program twice a day which included the list above. Physical Therapy Transfer Training Problem:PT Impaired mobility Goal:Improved Transfers Completed Transfer training and instruction to patient on safe transfers to and from bed and chair with supervision and verbal cues for technique . Physical Therapy Gait Training Problem:PT Impaired gait Goal:Improved Gait Completed Gait training and instruction to patient on safe ambulation with front wheeled walker for 40' x 3 feet with supervision, with verbal cues for corrections of gait deviations including increasing stride length and picking up her feet as she tends to shuffle . Instruct on orthopedic precautions and weight bearing restrictions Description: Orthopedic precautions including right posterior hip: no hip flexion > 90 degrees, no adduction and no IR/ER rotation of involved extermity. Weight bearing restrictions include: WBAT of involved extremity. Problem:PT Orthopedic Condition Goal:Manage Orthopedic Condition Completed patient instructed on orthopedic precautions. Instruct on management of edema Problem:PT Orthopedic Condition Goal:Manage Orthopedic Condition Completed Instruct patient on management of edema including elevation of RLE above the level of the heart and ice. Instruct on self-management of post surgical and/or non-surgical orthopedic intervention Problem:PT Orthopedic Condition Goal:Manage Orthopedic Condition Completed patient instructed on managagement of orthopedic condition, staying well hydrated, eating foods with high protein, signs and symptoms of infection, signs and symptoms of DVT/PE and instructed on when to call provider. Instruct and educate on knowledge deficits Problem:PT Learning Assessment Goal:Demonstrate understanding of education Completed patient verbalize and/or demonstrate understanding of physical therapy education including fall prevention strategies, home safety, functional activity and home exercise program. Education methods include: verbal cues. Further education required to improve knowledge and compliance with fall prevention strategies, home safety, functional activity and home exercise program. Instruct on signs, symptoms, and management of secondary cardiovascular disease Problem:PT Cardiovascular Disease Goal:Manage Secondary Cardiovascular disease Completed Instructed patient on energy conservation and exercise and activity guidelines. documented in this encounter [facility]'s home Plan of care note* Visit Details Visit Type -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 ROUTINE Discipline -Physical Therapy Problems Problem Description Start Date Status Goals Interve ntions Medication Education Disciplines: Skilled Services 03/17/2023 Active 1 goal linked to scheduled/document ed intervention 1 goal intervention scheduled/documen jay in this visit Sepsis Disciplines: Skilled Services 03/17/2023 Active 1 goal linked to scheduled/document ed intervention 1 goal intervention scheduled/documen jay in this visit Physician Specific Parameters Disciplines: Skilled Services 03/17/2023 Active 1 goal linked to scheduled/document ed intervention 1 goal intervention scheduled/documen jay in this visit Risk for Falls Disciplines: Skilled Services 03/17/2023 Active 1 goal linked to scheduled/document ed intervention 1 goal intervention scheduled/documen jay in this visit Pain Disciplines: Skilled Services 03/17/2023 Active 1 goal linked to scheduled/document ed intervention 1 goal intervention scheduled/documen jay in this visit Discharge Disciplines: Skilled Services 03/17/2023 Active 1 goal linked to scheduled/document ed intervention 2 goal interventions scheduled/documen jay in this visit PT Impaired muscle performance and/or ROM Disciplines: PT 03/17/2023 Active 1 goal linked to scheduled/document ed intervention 1 goal intervention scheduled/documen jay in this visit PT Impaired mobility Disciplines: PT 03/17/2023 Active 2 goals linked to scheduled/document ed interventions 2 goal interventions scheduled/documen jay in this visit PT Impaired gait Disciplines: PT 03/17/2023 Active 2 goals linked to scheduled/document ed interventions 2 goal interventions scheduled/documen jay in this visit PT Impaired balance Disciplines: PT 03/17/2023 Active 1 goal linked to scheduled/document ed intervention 1 goal intervention scheduled/documen jay in this visit PT Orthopedic Condition Disciplines: PT 03/17/2023 Active 1 goal linked to scheduled/document ed intervention 3 goal interventions scheduled/documen jay in this visit PT Learning Assessment Disciplines: PT 03/17/2023 Active 1 goal linked to scheduled/document ed intervention 1 goal intervention scheduled/documen jay in this visit PT Cardiovascular Disease Disciplines: PT 03/17/2023 Active 1 goal linked to scheduled/document ed intervention 1 goal intervention scheduled/documen jay in this visit Goals Goal Associated Problem Outcome Goal Met? Visit Notes Patient/caregiver will demonstrate ability to obtain, store, identify and administer ordered medications, keep accurate medication list in home, and adhere to medication schedule Description: Patient/caregiver will demonstrate ability to obtain, store, identify and administer ordered medications, keep accurate medication list in home, and adhere to medication schedule by 05/15/23. Medication Education No Patient/caregiver will be able to identify and report symptoms of sepsis Description: Patient/caregiver will be able to identify signs/symptoms of sepsis infection and will verbalize actions to take if suspected by 05/15/23. Sepsis No Patient to maintain parameters within physician-specified ranges throughout certification period Physician Specific Parameters No Manage Risk for falls Description: Patient/caregiver will verbalize knowledge of individualized fall prevention strategies by 05/15/23. Risk for Falls No Manage Pain Description: Patient/caregiver will verbalize knowledge and understanding of appropriate techniques to control pain, including pain medication and non-pharmacological techniques. Patient will verbalize or demonstrate an acceptable level of pain as evidenced by a pain score of <5/10 and improvement in ability to perform activities of daily living to be achieved by 05/15/23. Pain No Manage discharge planning Description: Patient/caregiver will verbalize understanding of ongoing discharge plan provided related to disease management, arrangements for outpatient and/or community services, obtaining medications, supplies, and DME, as needed throughout certification period. Discharge No Improved Muscle Performance and/or ROM Description: LTG: Patient will demonstrate improved muscle performance to meet functional goals as evidenced by ability to tolerate 10 minutes of standing activity, to be achieved by 04/08/23. . STG: Patient and/or caregiver will verbalize/demonstrate independence with home exercise program, to improve functional mobility, to be achieved by 03/25/23. PT Impaired muscle performance and/or ROM No Improved Transfers Description: LTG: Patient will demonstrate safe transfers to/from bed, chair, toilet, couch, shower/tub and car independently with AD, to be achieved by 04/08/23. . PT Impaired mobility No Improved Bed Mobility Description: STG: Patient will demonstrate improved bed mobility, ability to position self and supine <> sit independently to be achieved by 04/01/23. . PT Impaired mobility No Improved Stair Climbing Description: STG:: Patient will demonstrate improved stair negotiation as evidenced by ascend/descend 5 steps with railing and with cane with supervision, to be achieved by 03/27/23. LTG: Patient will demonstrate improved stair negotiation as evidenced by ascend/descend 13 steps with railing independently, to safely access all areas of the home, to be achieved by 04/08/23. . PT Impaired gait No Improved Gait Description: STG: Patient will demonstrate improved gait ability as evidenced by ambulation 100 feet with front wheeled walker independently with AD, in order to maneuver throughout home , to be achieved by 04/01/23. LTG: Patient will demonstrate improved gait ability as evidenced by ambulation 100 feet with single point cane independently with AD, to return to safe household and community ambulation, in order to return to plf, to be achieved by 04/08/23. . PT Impaired gait No Improved Balance Description: LTG: Patient will demonstrate improved standing balance to meet functional goals as evidenced by TUG score of <35 to be achieved by 04/08/23. PT Impaired balance No Manage Orthopedic Condition Description: Improve patient and/or caregiver understanding of post surgical and/or non-surgical orthopedic intervention management as evidenced by patient and/or caregiver able to verbalize, demonstrate, and teach back instruction, to be achieved by 05/15/23. PT Orthopedic Condition No Demonstrate understanding of education Description: Patient and/or caregiver will understand educational instruction to be achieved by 05/15/23. PT Learning Assessment No Manage Secondary Cardiovascular disease Description: Improve patient and/or caregiver understanding of secondary cardiovascular disease management as evidenced by patient and/or caregiver able to verbalize, demonstrate, and teach back instruction, to be achieved by 05/15/23. PT Cardiovascular Disease No Interventions Intervention Associated Problem/Goal Status Variance Visit Notes Medication Education Description: Evaluate/instruct patient/caregiver on obtaining, storing, identifying and administering ordered medications as well as keeping accurate medication list in the home and adhereing to medication schedule Problem:Medication Education Goal:Patient/caregiver will demonstrate ability to obtain, store, identify and administer ordered medications, keep accurate medication list in home, and adhere to medication schedule Completed Patient instructed on importance of keeping accurate medication list in home and adhering to medication schedule. Risk of Sepsis Description: Patient is at risk for sepsis. Monitor closely for s/s of sepsis. Problem:Sepsis Goal:Patient/caregiver will be able to identify and report symptoms of sepsis Completed SPO2 Description: Notify Dr. Hernandez if pulse ox is <92% at rest. Problem:Physician Specific Parameters Goal:Patient to maintain parameters within physician-specified ranges throughout certification period Completed Instruct on individual fall risk factors and strategies to prevent falls and injuries caused by falls. Problem:Risk for Falls Goal:Manage Risk for falls Completed PT: Patient instructed on Managing Impaired Functional Mobility: Use assistive device(s): front wheeled walker and single point cane Managing Pain Instruct on pain and instruct on strategies to control pain Problem:Pain Goal:Manage Pain Completed patient instructed on techniques to control pain including Non-Pharmacological measures; positioning/elevatio n, mobility/therapeutic exercise and use of thermal modalities, apply ice to affected area for the following prescribed frequency: prn. Deliver [facility] Problem:Discharge Goal:Manage discharge planning Completed Delivered [facility] on 04/03/23 for discharge date of 04/06/23. Patient denies questions/concerns w/ form. Instruct on ongoing discharge plan Problem:Discharge Goal:Manage discharge planning Completed Ongoing Discharge plan: Discharge plan discussed with patient including frequency and duration for home PT and plan for transition to: live independently at home without ongoing services. Physical Therapy Therapeutic Exercises Problem:PT Impaired muscle performance and/or ROM Goal:Improved Muscle Performance and/or ROM Completed patient instructed on strengthening exercises including verbal review of supine and standing exercises. recum bike x's 2min for ROM 0 resistance with verbal cues for correct technique. patient instructed to perform home exercise program twice a day which included above ex. Physical Therapy Transfer Training Problem:PT Impaired mobility Goal:Improved Transfers Completed Transfer training and instruction to patient on safe transfers to and from car with supervision and verbal cues for safety Physical Therapy Bed Mobility Training Problem:PT Impaired mobility Goal:Improved Bed Mobility Completed Bed mobility training and instruction to patient, including supine<>sit with independent Physical Therapy Stair Training Problem:PT Impaired gait Goal:Improved Stair Climbing Completed Stair training and instruction to patient on safe stair climbing, ascend/descend 5 steps, with railing and with cane with stand by assist and verbal cues for correct step pattern . Physical Therapy Gait Training Problem:PT Impaired gait Goal:Improved Gait Completed Gait training and instruction to patient on safe ambulation with single point cane for 100 feet with stand by assist, with verbal cues for corrections of gait deviations including correct technique fpr safety on uneven surfaces. Physical Therapy Balance Training Problem:PT Impaired balance Goal:Improved Balance Completed Developed, implemented, and instructed patient on standing balance exercises including gait training w/ cane on uneven surfaces. Instruct on orthopedic precautions and weight bearing restrictions Description: Orthopedic precautions including right posterior hip: no hip flexion > 90 degrees, no adduction and no IR/ER rotation of involved extermity. Weight bearing restrictions include: WBAT of involved extremity. Problem:PT Orthopedic Condition Goal:Manage Orthopedic Condition Completed patient instructed on orthopedic precautions. Instruct on management of edema Problem:PT Orthopedic Condition Goal:Manage Orthopedic Condition Completed Instruct patient on management of edema including elevation of LLE above the level of the heart and ice. Instruct on self-management of post surgical and/or non-surgical orthopedic intervention Problem:PT Orthopedic Condition Goal:Manage Orthopedic Condition Completed patient instructed on eating foods with high protein, signs and symptoms of infection, signs and symptoms of DVT/PE, instructed on when to call provider and instructed on when to call 911. Instruct and educate on knowledge deficits Problem:PT Learning Assessment Goal:Demonstrate understanding of education Completed patient verbalize and/or demonstrate understanding of physical therapy education including surgical precautions and home exercise program. Education methods include: verbal cues. Further education required to improve knowledge and compliance with home exercise program. Instruct on signs, symptoms, and management of secondary cardiovascular disease Problem:PT Cardiovascular Disease Goal:Manage Secondary Cardiovascular disease Completed Instructed patient on instructed on when to call provider. documented in this encounter [facility] for referral (narrative)* Diagnostic Procedure Only (Routine) - Closed Specialty Diagnoses / Procedures Referred By Jae pablo Referred To Contact XR IMAGING Diagnoses Status post total bilateral knee replacement Procedures XR KNEE GENERAL 4V AP BOTH/PA BOTH/LAT/MERC BILATERAL RADIOLOGIC EXAM KNEE COMPLETE 4/MORE VIEWS Lety Haywood PA-C [address] [place] [address] Xr Imaging Referral ID Status Reason Start Date Expiration Date V isits Requested Visits Authorized [id number] Closed Auto-Generate d Referral 01/03/2022 02/02/2023 1 1 [facility] for referral (narrative)* Diagnostic Procedure Only (Routine) - Closed Specialty Diagnoses / Procedures Referred By Contac t Referred To Contact XR IMAGING Diagnoses Status post total bilateral knee replacement Procedures XR KNEE GENERAL 4V AP BOTH/PA BOTH/LAT/MERC BILATERAL RADIOLOGIC EXAM KNEE COMPLETE 4/MORE VIEWS Lety Haywood PA-C [address] [place] [address] Xr Imaging Referral ID Status Reason Start Date Expiration Date V isits Requested Visits Authorized [id number] Closed Auto-Generate d Referral 01/03/2022 02/02/2023 1 1 [facility] for referral (narrative)* Diagnostic Procedure Only (Routine) - Closed Specialty Diagnoses / Procedures Referred By Contac t Referred To Contact XR IMAGING Diagnoses Fallen arches Procedures XR FOOT GENERAL 3V AP/LAT/OBL BILATERAL RADEX FOOT COMPLETE MINIMUM 3 VIEWS Anderson Mims [address] [facility] [place] [place] [address] Xr Imaging Referral ID Status Reason Start Date Expiration Date V isits Requested Visits Authorized [id number] Closed Auto-Generate d Referral 02/21/2022 03/23/2023 1 1 [facility] for referral (narrative)* Outpatient Procedure (Routine) - Authorized Specialty Diagnoses / Procedures Referred By Contac t Referred To Contact [facility] Diagnoses Pre-op chest exam Procedures ECG COMPLETE ECG ROUTINE ECG W/LEAST 12 LDS W/I&R Hang Frank MD [address] [place] [address] [facility] [address] [place] [address] Referral ID Status Reason Start Date Expiration Date Visits Requested Visits Authorized [id number] Authorized Auto-Generat ed Referral 03/30/2022 03/30/2023 1 1 [facility] for referral (narrative)* Diagnostic Procedure Only (Routine) - Pending Review Specialty Diagnoses / Procedures Referred By Contac t Referred To Contact BR IMAGING Diagnoses Encounter for screening mammogram for malignant neoplasm of breast Procedures MATTHIAS SCREENING SCREENING MAMMOGRAPHY BI 2-VIEW BREAST INC Helen Banks MD [address] [place] [address] [facility] [address] [place] [address] Referral ID Status Reason Start Date Expiration Date Visits Requested Visits Authorized [id number] Pending Review Auto-Generat ed Referral 11/21/2022 12/21/2023 1 1 [facility] for referral (narrative)* - Authorized Specialty Diagnoses / Procedures Referred By Contac t Referred To Contact Physical Therapy Diagnoses Primary osteoarthritis of right hip Procedures CONSULT TO PHYSICAL THERAPY Lety Haywood PA-C [address] [place] [address] Referral ID Status Reason Start Date Expiration Date V isits Requested Visits Authorized [id number] Authorized 03/27/2023 06/25/2023 99 99 [facility] for referral (narrative)* Diagnostic Procedure Only (Routine) - Pending Review Specialty Diagnoses / Procedures Referred By Contac t Referred To Contact XR IMAGING Diagnoses Primary osteoarthritis of right hip Status post total replacement of right hip Procedures XR HIP GENERAL 3V PELV/AP/LAT RIGHT RADEX HIP UNILATERAL WITH PELVIS 2-3 VIEWS Marco Hernandez MD [address] [place] [address] [place] [address] Referral ID Status Reason Start Date Expiration Date Visits Requested Visits Authorized [id number] Pending Review Auto-Generat ed Referral 04/18/2023 05/17/2024 1 1 [facility] for referral (narrative)* Diagnostic Procedure Only (Routine) - Pending Review Specialty Diagnoses / Procedures Referred By Jae pablo Referred To Contact XR IMAGING Diagnoses Primary osteoarthritis of right hip History of right hip replacement Procedures XR HIP GENERAL 3V PELV/AP/LAT RIGHT RADEX HIP UNILATERAL WITH PELVIS 2-3 VIEWS Marco Hernandez MD [address] [place] [address] [place] [address] Referral ID Status Reason Start Date Expiration Date Visits Requested Visits Authorized [id number] Pending Review Auto-Generat ed Referral 06/28/2024 1 1 [facility] for referral (narrative)* Diagnostic Procedure Only (Routine) - Closed Specialty Diagnoses / Procedures Referred By Jae pablo Referred To Contact BR IMAGING Diagnoses Encounter for screening mammogram for malignant neoplasm of breast Procedures MATTHIAS SCREENING SCREENING MAMMOGRAPHY BI 2-VIEW BREAST INC CAD Helen Chapa MD [address] [place] [address] [facility] [address] [place] [address] Referral ID Status Reason Start Date Expiration Date V isits Requested Visits Authorized [id number] Closed Auto-Generate d Referral 11/21/2022 12/21/2023 1 1 [facility] for referral (narrative)* Diagnostic Procedure Only (Routine) - Closed Specialty Diagnoses / Procedures Referred By Jae pablo Referred To Contact XR IMAGING Diagnoses Primary osteoarthritis of right hip Status post total replacement of right hip Procedures XR HIP GENERAL 3V PELV/AP/LAT RIGHT RADEX HIP UNILATERAL WITH PELVIS 2-3 VIEWS Marco Hernandez MD [address] [place] [address] [place] [address] Referral ID Status Reason Start Date Expiration Date V isits Requested Visits Authorized [id number] Closed Auto-Generate d Referral 04/18/2023 05/17/2024 1 1 [facility] for referral (narrative)* Diagnostic Procedure Only (Routine) - Closed Specialty Diagnoses / Procedures Referred By Contac t Referred To Contact XR IMAGING Diagnoses Primary osteoarthritis of left hip Status post total hip replacement, right Procedures XR HIP GENERAL 3V PELV/AP/LAT RIGHT RADEX HIP UNILATERAL WITH PELVIS 2-3 VIEWS Lety Haywood PA-C [address] [place] [address] [place] [address] Referral ID Status Reason Start Date Expiration Date V isits Requested Visits Authorized [id number] Closed Auto-Generate d Referral 03/22/2023 04/20/2024 1 1 [facility] for referral (narrative)* Diagnostic Procedure Only (Routine) - Closed Specialty Diagnoses / Procedures Referred By Jae pablo Referred To Contact XR IMAGING Diagnoses Primary osteoarthritis of right hip Procedures XR HIP GENERAL 3V PELV/AP/LAT RIGHT RADEX HIP UNILATERAL WITH PELVIS 2-3 VIEWS Lety Haywood PA-C [address] [place] [address] [place] [address] Referral ID Status Reason Start Date Expiration Date V isits Requested Visits Authorized [id number] Closed Auto-Generate d Referral 12/27/2022 01/26/2024 1 1 [facility] for referral (narrative)* Diagnostic Procedure Only (Routine) - Authorized Specialty Diagnoses / Procedures Referred By Jae t Referred To Contact BR IMAGING Diagnoses Encounter for screening mammogram for malignant neoplasm of breast Procedures MATTHIAS SCREENING SCREENING MAMMOGRAPHY BI 2-VIEW BREAST INC Екатерина [place], [employer] MACHINE OPERATOR.MICROGRINDER OPERATOR [address] [place] [address] [facility] [address] [place] [address] Referral ID Status Reason Start Date Expiration Date Visits Requested Visits Authorized [id number] Authorized Auto-Generat ed Referral 02/21/2024 03/22/2025 1 1 [facility] for referral (narrative)* Diagnostic Procedure Only (Routine) - Closed Specialty Diagnoses / Procedures Referred By Contac t Referred To Contact XR IMAGING Diagnoses Low back pain, unspecified back pain laterality, unspecified chronicity, unspecified whether sciatica present Procedures XR LUMBAR GENERAL 3V AP/LAT/L5-S1 X-RAY L-S SPINE AP/LATERAL Lety Haywood PA-C [address] [place] [address] [place] [address] Referral ID Status Reason Start Date Expiration Date V isits Requested Visits Authorized [id number] Closed Auto-Generate d Referral 08/03/2021 09/02/2022 1 1 [facility] for referral (narrative)* Diagnostic Procedure Only (Routine) - Closed Specialty Diagnoses / Procedures Referred By Contac t Referred To Contact XR IMAGING Diagnoses Right hip pain Procedures XR HIP GENERAL 3V PELV/AP/LAT RT RADEX HIP UNILATERAL WITH PELVIS 2-3 VIEWS Francesco Castrejon APRN.MICROGRINDER OPERATOR [address] [place] [address] [place] [address] Referral ID Status Reason Start Date Expiration Date V isits Requested Visits Authorized [id number] Closed Auto-Generate d Referral 04/13/2021 05/13/2022 1 1 [facility] for referral (narrative)* Medication Prior Authorization - Pending Review Specialty Diagnoses / Procedures Referred By Contac t Referred To Contact Hollie Blevins Jr., MD [address] [place] [address] Phone: tel: fax: Referral ID Status Reason Start Date Expiration Date V isits Requested Visits Authorized [id number] Pending Review 1 1 [facility] for visit Narrative* Diagnostic Procedure Only (Routine) - Closed Specialty Diagnoses / Procedures Referred By Contac t Referred To Contact XR IMAGING Diagnoses Status post total bilateral knee replacement Procedures XR KNEE GENERAL 4V AP BOTH/PA BOTH/LAT/MERC BILATERAL RADIOLOGIC EXAM KNEE COMPLETE 4/MORE VIEWS Lety Haywood PA-C [address] [place] [address] Xr Imaging Referral ID Status Reason Start Date Expiration Date V isits Requested Visits Authorized [id number] Closed Auto-Generate d Referral 01/03/2022 02/02/2023 1 1 [facility] for visit Narrative* Diagnostic Procedure Only (Routine) - Closed Specialty Diagnoses / Procedures Referred By Contac t Referred To Contact XR IMAGING Diagnoses Fallen arches Procedures XR FOOT GENERAL 3V AP/LAT/OBL BILATERAL RADEX FOOT COMPLETE MINIMUM 3 VIEWS Anderson Mims [address] [place] [id number] Xr Imaging Referral ID Status Reason Start Date Expiration Date V isits Requested Visits Authorized [id number] Closed Auto-Generate d Referral 02/21/2022 03/23/2023 1 1 [facility] for visit Narrative* Diagnostic Procedure Only (Routine) - Closed Specialty Diagnoses / Procedures Referred By Contac t Referred To Contact BR IMAGING Diagnoses Encounter for screening mammogram for malignant neoplasm of breast Procedures MATTHIAS SCREENING SCREENING MAMMOGRAPHY BI 2-[place] [address] [place] [id number] Br Imaging [address] [place] [address] Referral ID Status Reason Start Date Expiration Date V isits Requested Visits Authorized [id number] Closed Auto-Generate d Referral 11/21/2022 12/21/2023 1 1 [facility] for visit Narrative* Diagnostic Procedure Only (Routine) - Closed Specialty Diagnoses / Procedures Referred By Contac t Referred To Contact XR IMAGING Diagnoses Primary osteoarthritis of right hip Status post total replacement of right hip Procedures XR HIP GENERAL 3V PELV/AP/LAT RIGHT RADEX HIP UNILATERAL WITH PELVIS 2-3 VIEWS Marco Hernandez MD [address] [place] [address] [place] [address] Referral ID Status Reason Start Date Expiration Date V isits Requested Visits Authorized [id number] Closed Auto-Generate d Referral 04/18/2023 05/17/2024 1 1 [facility] for visit Narrative* Diagnostic Procedure Only (Routine) - Closed Specialty Diagnoses / Procedures Referred By Jae t Referred To Contact XR IMAGING Diagnoses Primary osteoarthritis of left hip Status post total hip replacement, right Procedures XR HIP GENERAL 3V PELV/AP/LAT RIGHT RADEX HIP UNILATERAL WITH PELVIS 2-3 VIEWS Lety Haywood, PA-C [address] [place] [address] [place] [address] Referral ID Status Reason Start Date Expiration Date V isits Requested Visits Authorized [id number] Closed Auto-Generate d Referral 03/22/2023 04/20/2024 1 1 [facility] for visit Narrative* Diagnostic Procedure Only (Routine) - Closed Specialty Diagnoses / Procedures Referred By Jae t Referred To Contact XR IMAGING Diagnoses Primary osteoarthritis of right hip Procedures XR HIP GENERAL 3V PELV/AP/LAT RIGHT RADEX HIP UNILATERAL WITH PELVIS 2-3 VIEWS Lety Haywood PA-C [address] [place] [address] [place] [address] Referral ID Status Reason Start Date Expiration Date V isits Requested Visits Authorized [id number] Closed Auto-Generate d Referral 12/27/2022 01/26/2024 1 1 [facility] for visit Narrative* Diagnostic Procedure Only (Routine) - Closed Specialty Diagnoses / Procedures Referred By Jae t Referred To Contact BR IMAGING Diagnoses Encounter for screening mammogram for malignant neoplasm of breast Procedures MATTHIAS SCREENING SCREENING MAMMOGRAPHY BI 2-VIEW BREAST INC Екатерина [place] SILK CREPE MACHINE OPERATOR.MICROGRINDER OPERATOR [address] [place] [address] Br Imaging [address] [place] [address] Referral ID Status Reason Start Date Expiration Date V isits Requested Visits Authorized [id number] Closed Auto-Generate d Referral 02/21/2024 03/22/2025 1 1 [facility] for visit Narrative* Diagnostic Procedure Only (Routine) - Closed Specialty Diagnoses / Procedures Referred By Contac t Referred To Contact XR IMAGING Diagnoses Low back pain, unspecified back pain laterality, unspecified chronicity, unspecified whether sciatica present Procedures XR LUMBAR GENERAL 3V AP/LAT/L5-S1 X-RAY L-S SPINE AP/LATERAL Lety Haywood PA-C [address] [place] [address] [place] [address] Referral ID Status Reason Start Date Expiration Date V isits Requested Visits Authorized [id number] Closed Auto-Generate d Referral 08/03/2021 09/02/2022 1 1 [facility] for visit Narrative* Diagnostic Procedure Only (Routine) - Closed Specialty Diagnoses / Procedures Referred By Contac t Referred To Contact XR IMAGING Diagnoses Right hip pain Procedures XR HIP GENERAL 3V PELV/AP/LAT RT RADEX HIP UNILATERAL WITH PELVIS 2-3 VIEWS Francesco Castrejon SILK CREPE MACHINE OPERATOR.MICROGRINDER OPERATOR [address] [place] [address] [place] [address] Referral ID Status Reason Start Date Expiration Date V isits Requested Visits Authorized [id number] Closed Auto-Generate d Referral 04/13/2021 05/13/2022 1 1 [facility] for visit Narrative* Diagnostic Procedure Only (Routine) - Closed Specialty Diagnoses / Procedures Referred By Contac t Referred To Contact XR IMAGING Diagnoses Hammer toes of both feet Callus Procedures XR FOOT GENERAL 3V AP/LAT/OBL BILATERAL RADEX FOOT COMPLETE MINIMUM 3 VIEWS Anderson Mims [address] [place] [address] Phone: tel: fax: [place] [address] Referral ID Status Reason Start Date Expiration Date V isits Requested Visits Authorized [id number] Closed Auto-Generate d Referral 12/23/2024 01/22/2026 1 1 [facility] Summary Purpose Family History No Family History Records Found Relationship Condition Age at Onset Recorded Date/T funmilayo father Cerebrovascular accident (CVA) Unknown Coronary artery disease Unknown mother Myocardial infarction 59 brother Coronary artery disease Unknown sister Diabetes mellitus Unknown Hypertension Unknown Cardiac disease Unknown Not Specified Glaucoma Unknown Advance Directives No Advanced Directives Records FoundDocuments on File Type Date Recorded Patient Spring Assembler Supervisor Expl anation Advance Directive(s) 05/10/2021 6:57 AM Date Activated Date Inactivated Comments 03/17/2023 4:37 PM Latest Code Status on File Code Status Date Activated Date Inactivated Comments Full Code 03/17/2023 4:37 PM Latest Code Status on File Code Status Date Activated Date Inactivated Comments Full Code 03/01/2021 4:41 PM Documents on File Type Date Recorded Patient Spring Assembler Supervisor Expl anation Advance Directive(s) 06/21/2021 8:40 AM Advance Directive(s) 06/14/2021 9:27 AM Advance Directive(s) 05/10/2021 6:59 AM Sc anned 05-10-2021 Advance Directive(s) 05/10/2021 6:57 AM Advance Directive(s) 05/04/2021 1:57 PM Advance Directive(s) 10/18/2019 11:49 AM Advance Directive(s) 10/10/2019 7:35 AM Advance Directive(s) 10/09/2019 3:40 PM Advance Directive(s) 09/30/2019 10:11 AM Advance Directive(s) 08/16/2019 9:23 AM Advance Directive(s) 04/16/2019 7:52 AM Advance Directive(s) 04/08/2019 1:12 PM Advance Directive(s) 03/18/2019 2:36 PM Advance Directive(s) 02/21/2019 9:07 AM Documents on File Type Date Recorded Patient Spring Assembler Supervisor Expl anation Advance Directive(s) 06/21/2021 8:40 AM Advance Directive(s) 06/14/2021 9:27 AM Advance Directive(s) 05/10/2021 6:59 AM Sc anned 05-10-2021 Advance Directive(s) 05/10/2021 6:57 AM Advance Directive(s) 05/04/2021 1:57 PM Advance Directive(s) 10/18/2019 11:49 AM Advance Directive(s) 10/10/2019 7:35 AM Advance Directive(s) 10/09/2019 3:40 PM Advance Directive(s) 09/30/2019 10:11 AM Advance Directive(s) 08/16/2019 9:23 AM Advance Directive(s) 04/16/2019 7:52 AM Advance Directive(s) 04/08/2019 1:12 PM Advance Directive(s) 03/18/2019 2:36 PM Advance Directive(s) 02/21/2019 9:07 AM Documents on File Type Date Recorded Patient Spring Assembler Supervisor Expl anation Advance Directive(s) 05/10/2021 6:57 AM Advance Directive Response Recorded Date/ Time Advance Directives Yes March 01 9:29am Living Will Yes March 10, 2021 2:27pm 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 Yes March 10 2:27pm Advance Directive Response Recorded Date/ Time Advance Directives Yes March 01 8:29am Living Will Yes March 10, 2021 1:27pm 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 Yes March 10 1:27pm Latest Code Status on File Code Status Date Activated Date Inactivated Comments Full Code 03/17/2023 4:37 PM Date Activated Date Inactivated Comments 03/17/2023 4:37 PM Reason for Referral Status Reason Specialty Diagnoses / Procedures Referred By Contact Referred To Contact In Progress Specialty Services Required Cardiac Rehabilitation Diagnoses Coronary artery disease due to calcified coronary lesion Esperanza Ann, SILK CREPE MACHINE OPERATOR - MICROGRINDER OPERATOR [address] [facility] [address] [place] [address] [facility] [address] [place] [address] Scheduling Instructions Summ Cardiac Rehab [address] [facility] [address] [place] [address] Specialty Diagnoses / Procedures Referred By Contac t Referred To Contact Cardiology Diagnoses Preoperative examination Cystocele, midline Rectocele Vaginal vault prolapse History of heart artery stent Procedures CONSULT TO CARDIOLOGY OFFICE/OUTPATIENT [facility] 60-74 MINUTES Randi Jimenez MD [address] [place] [address] Referral ID Status Reason Start Date Expiration Date Visits Requested Visits Authorized [id number] Authorized PCP Requested Referral 03/30/2022 03/30/2023 1 1 Chief Complaint and Reason for Visit Chief Complaint 3 M FU RIGHT HIP INJECTION OSTEO surgery clearence PREOP CLEARANCE PREOP CLEARANCE Reason for Visit Atherosclerotic hear t disease of [place] coronary artery without angina pectoris Rapid palpitations Essential hypertension Hyperlipidemia Encounter for pre-operative cardiovascular clearance Essential hypertension Hyperlipidemia Left bundle branch block (LBBB) History of coronary artery stent placement Chief Complaint RIGHT HIP INJECTION OSTEO surgery clearence PREOP CLEARANCE PREOP CLEARANCE Reason for Visit Encounter for pre-op erative cardiovascular clearance Essential hypertension Hyperlipidemia Left bundle branch block (LBBB) History of coronary artery stent placement Chief Complaint 9 M FU OA BILAT HIPS Reason for Visit Essential hypertensi on Hyperlipidemia History of coronary artery stent placement Chief Complaint 1 Y FU Reason for Visit FINNEY (dyspnea on exer tion) Essential hypertension Hyperlipidemia History of coronary artery stent placement Chief Complaint 1 Y FU DYSPNEA DYSPNEA Amb Documentation Amb Documentation Reason for Visit FINNEY (dyspnea on exer tion) Essential hypertension Hyperlipidemia History of coronary artery stent placement Health Concerns Problem Noted Date High Risk Chronic Disease Home Monitorin g Problem 12/27/2022 Problem Noted Date High Risk Chronic Disease Home Monitorin g Problem 12/27/2022 Problem Noted Date High Risk Chronic Disease Home Monitorin g Problem 12/27/2022 Problem Noted Date High Risk Chronic Disease Home Monitorin g Problem 12/27/2022 Problem Noted Date High Risk Chronic Disease Home Monitorin g Problem 12/27/2022 Problem Noted Date High Risk Chronic Disease Home Monitorin g Problem 12/27/2022 Problem Noted Date High Risk Chronic Disease Home Monitorin g Problem 12/27/2022 Problem Noted Date High Risk Chronic Disease Home Monitorin g Problem 12/27/2022 Problem Noted Date High Risk Chronic Disease Home Monitorin g Problem 12/27/2022 Problem Noted Date Diagnosed Date High Risk Chronic Disease Home Monitoring Proble 12/27/2022 Problem Noted Date Diagnosed Date High Risk Chronic Disease Home Monitoring Proble m 12/27/2022 Problem Noted Date Diagnosed Date High Risk Chronic Disease Home Monitoring Proble 12/27/2022 Problem Noted Date Diagnosed Date High Risk Chronic Disease Home Monitoring Proble 12/27/2022 Problem Noted Date Diagnosed Date High Risk Chronic Disease Home Monitoring Proble 12/27/2022 Problem Noted Date Diagnosed Date High Risk Chronic Disease Home Monitoring Proble 12/27/2022 Problem Noted Date Diagnosed Date High Risk Chronic Disease Home Monitoring [place]ble 12/27/2022 Problem Noted Date Diagnosed Date High Risk Chronic Disease Home Monitoring [place]ble 12/27/2022 Problem Noted Date Diagnosed Date High Risk Chronic Disease Home Monitoring Proble 12/27/2022 Problem Noted Date Diagnosed Date High Risk Chronic Disease Home Monitoring [facility] 12/27/2022 Problem Noted Date Diagnosed Date High Risk Chronic Disease Home Monitoring Proble 12/27/2022 Problem Noted Date Diagnosed Date High Risk Chronic Disease Home Monitoring [facility] 12/27/2022 Problem Noted Date Diagnosed Date High Risk Chronic Disease Home Monitoring [facility] 12/27/2022 Problem Noted Date Diagnosed Date High Risk Chronic Disease Home Monitoring [facility] 12/27/2022 Problem Noted Date Diagnosed Date High Risk Chronic Disease Home Monitoring [facility] 12/27/2022 Problem Noted Date Diagnosed Date High Risk Chronic Disease Home Monitoring [facility] 12/27/2022 Problem Noted Date Diagnosed Date High Risk Chronic Disease Home Monitoring [facility] 12/27/2022 Problem Noted Date Diagnosed Date High Risk Chronic Disease Home Monitoring [place] 12/27/2022 Problem Noted Date Diagnosed Date High Risk Chronic Disease Home Monitoring [facility] 12/27/2022 Active Problems Noted Date Diagnosed Date High Risk Chronic Disease Home Monitoring [facility] 12/27/2022 Active Problems Noted Date Diagnosed Date High Risk Chronic Disease Home Monitoring [facility] 12/27/2022 Active Problems Noted Date Diagnosed Date High Risk Chronic Disease Home Monitoring [facility] 12/27/2022 Active Problems Noted Date Diagnosed Date High Risk Chronic Disease Home Monitoring [facility] 12/27/2022 Additional Source Comments INFORMATION SOURCE (unrecogn ized section and content) DATE CREATED AUTHOR 06/14/2020 [facility] DATE CREATED AUTHOR AUTHOR'S ORGANIZ ATION [facility] DATE CREATED AUTHOR AUTHOR'S ORGANIZ ATION 03/10/2021 [facility] DATE CREATED AUTHOR AUTHOR'S ORGANIZ ATION 05/20/2023 [facility] DATE CREATED AUTHOR AUTHOR'S ORGANIZ ATION 11/24/2024 [facility] DATE CREATED AUTHOR AUTHOR'S ORGANIZ ATION 06/10/2025 [facility] Ordered Prescriptions (unrec ognized section and content) Prescription Sig Dispensed Refills Start Date End Da te ticagrelor (BRILINTA) 90 MG TABS tablet Take 1 tablet by mouth 2 times daily 60 tablet 11 03/03/2021 metoprolol tartrate (LOPRESSOR) 25 MG tablet Take 1 tablet by mouth 2 times daily 60 tablet 3 03/03/2021 aspirin 81 MG chewable tablet Take 1 tablet by mouth daily 90 tablet 3 03/03/2021 Scheduled Active and Recently Administ ered Medications (unrecognized section and content) Medication Order 03/01/2021 03/02/2021 03/03/2021 aspirin chewable tablet 81 mg 81 mg, Oral, DAILY, First dose on Mon03/02/21 at 0900 0903 (Given - Provider: Gertrude Edouard RN) 0749 (Given - Provider: Gertrude Edouard RN) atorvastatin (LIPITOR) tablet 80 mg 80 mg, Oral, NIGHTLY, First dose on Mon03/01/21 at 2100 2151 (Given - Provider: Rey Valencia RN) 1957 (Given - Provider: Rey Valencia RN) 2100 (Due) buPROPion (WELLBUTRIN SR) extended release tablet 150 mg 150 mg, Oral, DAILY, First dose on Mon03/01/21 at 1900, Do not crush or break. 1900 (Not Given - Provider: Taniya Caceres RN - Reason: Patient took at home) 0903 (Given - Provider: Gertrude Edouard RN) 0754 (Given - Provider: Gertrude Edouard RN) dicyclomine (BENTYL) capsule 10 mg 10 mg, Oral, 3 TIMES DAILY BEFORE MEALS, First dose on Mon03/01/21 at 1900 1900 (Given - Provider: Rey Valencia RN) 0604 (Given - Provider: Rey Valencia, PETR)1124 (Given - Provider: Gertrude Edouard RN)1656 (Given - Provider: Gertrude Edouard RN) 0606 (Given - Provider: Rey Valencia, PETR)1100 (Due)1600 (Due) enoxaparin (LOVENOX) injection 40 mg 40 mg, Subcutaneous, DAILY, First dose on Mon03/01/21 at 2000 2000 (Given - Provider: Rey Valencia RN) 195 (Given - Provider: Rey Valencia RN) 1999 (Due) ferrous sulfate (IRON 325) tablet 324 mg 324 mg, Oral, DAILY, First dose on Mon03/01/21 at 1999 1859 (Not Given - Provider: Taniya Caceres RN - Reason: Patient took at home) 0903 (Given - Provider: Gertrude Edouard RN) 0749 (Given - Provider: Gertrude Edouard RN) fluticasone (FLONASE) 50 MCG/ACT nasal spray 2 spray 2 spray, Each Nostril, DAILY, First dose on Mon03/01/21 at 1730 2100 (Given - Provider: Rey Valencia RN) 0911 (Given - Provider: Gertrude Edouard RN) 0754 (Given - Provider: Gertrude Edouard RN) gabapentin (NEURONTIN) capsule 300 mg (CANCELED) 300 mg, Oral, 3 TIMES DAILY, First dose on Mon03/01/21 at 2100, Therapeutic substitution for Gabapentin 900mg ER 2100 (Given - Provider: Rey Valencia RN) 0900 (Not Given - Provider: Gertrude Edouard RN - Reason: Other - Comment: see alternate order) Gabapentin Enacarbil ER TBCR 900 mg 900 mg, Oral, NIGHTLY, First dose on Mon03/02/21 at 2100, 900 mg = 3 x 300 mg tablets Patient to use own supply. Patient's own medication identified by Tulio Jose 03/02/21. 1658 (Given - Provider: Gertrude Edouard RN)2100 (Held - Provider: Gertrude Edouard RN - Reason: Other - Comment: see dinner administration) 2099 (Due) hydroCHLOROthiazide (HYDRODIURIL) tablet 12.5 mg(Linked Group 1) 12.5 mg, Oral, DAILY, First dose on Mon03/01/21 at 1900 2100 (Given - Provider: Rey Valencia RN) 0904 (Given - Provider: Gertrude Edouard RN) 0751 (Given - Provider: Gertrude Edouard RN) insulin lispro (HUMALOG) injection vial 0-6 Units 0-6 Units, Subcutaneous, 3 TIMES DAILY WITH MEALS, First dose on Mon03/01/21 at 1745, Corrective Low Dose Algorithm Glucose: Dose: 70-139 No Insulin 140-199 1 Unit 200-249 2 Units 250-299 3 Units 300-349 4 Units 350-399 5 Units Over 399 6 Units 1745 (Given - Provider: Rey Valencia, PETR) 1025 (Held - Provider: Gertrude Edouard RN - Reason: Pt NPO)1248 (Not Given - Provider: Gertrude Edouard RN - Reason: Pt NPO)1924 (Given - Provider: Gertrude Edouard RN - Comment: 1) 0802 (Incomplete - Provider: Gertrude Edouard RN)1200 (Due)1700 (Due) ketotifen (ZADITOR) 0.025 % ophthalmic solution 1 drop 1 drop, Both Eyes, 2 TIMES DAILY, First dose on Mon03/01/21 at 2100, Substituted for Olopatadine (Patanol 0.1%/Pataday 0.2%/Pazeo 0.7%). 183 (Held by provider - Provider: Sima Man MD - Reason: Other)2100 (Automatically Held - Provider: Sima Man MD) 0900 (Automatically Held - Provider: Sima Man MD)2100 (Automatically Held - Provider: Sima Man MD) 0900 (Automatically Held - Provider: Sima Man MD)2100 (Automatically Held - Provider: Sima Man MD) levothyroxine (SYNTHROID) tablet 50 mcg 50 mcg, Oral, DAILY, First dose on Mon03/01/21 at 1800, Tube feeding (TF) interaction, obtain physician order to manage, recommend holding TF for 30 minutes before and after dose. 185 (Not Given - Provider: Taniya Caceres RN - Reason: Patient took at home) 0904 (Given - Provider: Gertrude Edouard RN) 0751 (Given - Provider: Gertrude Edouard RN) magnesium oxide (MAG-OX) tablet 400 mg (COMPLETED) 400 mg, Oral, ONCE, On Mon03/02/21 at 0700, For 1 dose 0604 (Given - Provider: Rey Valencia, PETR) magnesium sulfate 2000 mg in 50 mL IVPB premix (COMPLETED) 2,000 mg, Intravenous, at 25 mL/hr, Administer over 2 Hours, ONCE, On Mon03/02/21 at 0715, For 1 dose, Recommended infusion rate not to exceed 1,000 mg (milligrams) per hour. 0925 (New Bag - Provider: Gertrude Edouard RN)1125 (Stopped - Provider: Gertrude Edouard RN) metoprolol tartrate (LOPRESSOR) tablet 25 mg 25 mg, Oral, 2 TIMES DAILY, First dose on Mon03/01/21 at 2100 2150 (Given - Provider: Rey Valencia RN) 0905 (Given - Provider: Gertrude Edouard RN)195 (Given - Provider: Rey Valencia RN) 0751 (Given - Provider: Gertrude Edouard RN)2099 (Due) montelukast (SINGULAIR) tablet 10 mg 10 mg, Oral, NIGHTLY, First dose on Mon03/01/21 at 2100 2147 (Given - Provider: Rey Valencia RN) 1955 (Given - Provider: Rey Valencia RN) 2099 (Due) pantoprazole (PROTONIX) tablet 40 mg 40 mg, Oral, DAILY BEFORE BREAKFAST, First dose on Mon03/02/21 at 0700, Do not crush or break. Substituted for Omeprazole (PRILOSEC). 0604 (Given - Provider: Rey Valencia RN) 0606 (Given - Provider: Rey Valencia RN)0749 (Canceled Entry - Provider: Gertrude Edouard RN) pramipexole (MIRAPEX) tablet 0.25 mg (CANCELED) 0.25 mg, Oral, 4 TIMES DAILY, First dose on Mon03/01/21 at 2100 2155 (Given - Provider: Rey Valencia RN) 0308 (Given - Provider: Rey Valencia RN - Comment: see provider communication)0334 (Given - Provider: Rey Valencia RN - Comment: see provider communication)0553 (Given - Provider: Rey Valencia RN - Comment: see provider communication) pramipexole (MIRAPEX) tablet 0.25 mg 0.25 mg, Oral, 4 TIMES DAILY, First dose (after last modification) on Mon03/02/21 at 1800 1700 (Given - Provider: Gertrude Edouard RN)1958 (Given - Provider: Rey Valencia, PETR)2044 (Given - Provider: Rey Valencia RN)2334 (Given - Provider: Francesco Waldrop RN) 1800 (Due - Provider: Ceferino Alfaro [facility])2000 (Due - Provider: Ceferino Alfaro [facility])2200 (Due - Provider: Ceferino Alfaro [facility])2300 (Due - Provider: Ceferino Alfaro [facility]) sodium chloride flush 0.9 % injection 5-40 mL 5-40 mL, Intravenous, EVERY 12 HOURS SCHEDULED (2 times per day), First dose on Mon03/01/21 at 2100, For Line Patency: Peripheral IV = 5 mL; Midline or Central Line = 10 mL/lumen. If following IV push medication, administer flush at same rate as the IV push. Flush volume is determined by type of infusion therapy being given. For non-viscous solutions use: Peripheral IV = 5 mL Midline or Central Line = 10 mL/lumen For viscous solutions (i.e. blood components, parenteral nutrition, contrast media, or after obtaining blood sample) use: Peripheral IV = 10 mL Midline or Central Line = 20 mL/lumen 2207 (Not Given - Provider: Rey Valencia RN - Reason: IV Fluid Infusing) 1002 (Not Given - Provider: Gertrude Edouard RN - Reason: IV Fluid Infusing)2100 (Due) 0756 (Given - Provider: Gertrude Edouard RN)2100 (Due) ticagrelor (BRILINTA) tablet 90 mg 90 mg, Oral, 2 TIMES DAILY, First dose on Mon03/01/21 at 2100, ANTIPLATELET! 2150 (Given - Provider: Rey Valencia RN) 0904 (Given - Provider: Gertrude Edouard, RN)195 (Given - Provider: Rey Valencia RN) 0751 (Given - Provider: Gertrude Edouard RN)2100 (Due) valsartan (DIOVAN) tablet 320 mg(Linked Group 1) 320 mg, Oral, DAILY, First dose on Mon03/01/21 at 1900, Therapeutic substitution for DIOVAN -HCT 320-12.5mg daily When given with hydrochlorothiazide 2099 (Given - Provider: Rey M Valencia, RN) 0904 (Given - Provider: Gertrude Edouard RN) 0756 (Given - Provider: Gertrude Edouard RN) vitamin D (CHOLECALCIFEROL) tablet 2,000 Units 2,000 Units, Oral, DAILY, First dose on Mon03/01/21 at 2000 2155 (Given - Provider: Rey Valencia, RN) 0903 (Given - Provider: Gertrude Edouard, RN) 0756 (Given - Provider: Gertrude Edouard RN) PRN Medication Order 03/01/2021 03/02/2021 03/03/2021 0.9 % sodium chloride infusion 25 mL, Intravenous, at 100 mL/hr, PRN, If patient receiving piggyback infusions without ordered maintenance IV fluids or with frequent/long duration piggyback infusions, Starting on Mon03/01/21 at 1637, Administer at the same rate as the piggyback being infused. acetaminophen (TYLENOL) suppository 650 mg(Linked Group 2) 650 mg, Rectal, EVERY 6 HOURS PRN, Pain Mild (1-3), Fever, For temp greater than 100.4 F (38 C), Starting on Mon03/01/21 at 1637, Administer if oral route cannot be used. 1124 (See Alternative - Provider: Gertrude Edouard RN) acetaminophen (TYLENOL) tablet 650 mg(Linked Group 2) 650 mg, Oral, EVERY 6 HOURS PRN, Pain Mild (1-3), Fever, For temp greater than 100.4 F (38 C), Starting on Mon03/01/21 at 1637, Maximum dose of acetaminophen is 4000 mg from all sources in 24 hours. 1124 (Given - Provider: Jeffrey Edouard RN) dextrose 5 % solution 100 mL/hr, Intravenous, at 100 mL/hr, PRN, Low blood sugar, Starting on Mon03/01/21 at 1729, Start infusion following administration of dextrose 50% or glucagon. dextrose 50 % IV solution 12.5 g, Intravenous, PRN, Low blood sugar, Blood glucose less than 70 mg/dL and patient NOT ALERT or NPO., Starting on Mon03/01/21 at 1729, If patient does not respond within 5 minutes, repeat dose x1. Start D5W at 100 mL/hour until ordering provider can be reached. Repeat blood glucose in 15 minutes. If blood glucose is less than 70 mg/dL, repeat treatment and recheck blood glucose in 15 minutes x2. If using Glucostabilizer, dose as instructed per system. glucagon (rDNA) injection 1 mg 1 mg, Intramuscular, PRN, Low blood sugar, Blood glucose less than 70 mg/dL and patient NOT ALERT or NPO and does not have IV access., Starting on Mon03/01/21 at 1729, After administration, attempt intravenous access and start D5W at 100 mL/hr. Repeat blood glucose in 15 minutes x2 and notify provider. glucose (GLUTOSE) 40 % oral gel 15 g 15 g, Oral, PRN, Low blood sugar, Starting on Mon03/01/21 at 1729, If blood glucose less than 50 mg/dL and patient ALERT and TOLERATING PO, give 2 tubes glucose gel. If blood glucose less than 70 mg/dL and patient ALERT and TOLERATING PO, give 1 tube glucose gel. Repeat blood glucose in 15 minutes. If blood glucose is less than 70 mg/dL, repeat treatment and recheck blood glucose in 15 minutes x2 and notify provider. ondansetron (ZOFRAN) injection 4 mg(Linked Group 3) 4 mg, Intravenous, EVERY 6 HOURS PRN, Nausea, Vomiting, Starting on Mon03/01/21 at 1637, Administer if oral route cannot be used. ondansetron (ZOFRAN-ODT) disintegrating tablet 4 mg(Linked Group 3) 4 mg, Oral, EVERY 8 HOURS PRN, Nausea, Vomiting, Starting on Mon03/01/21 at 1637 perflutren lipid microspheres (DEFINITY) injection 1.65 mg 1.65 mg (1.5 mL), Intravenous, IMG ONCE PRN, Other, Suboptimal Echo Image, Starting on Mon03/01/21 at 1638, For 72 hours, Administer up to 1.65 mg via slow IVP for suboptimal echocardiogram enhancement. May administer as concentrated dose or diluted in 8.5 mL of 0.9% sodium chloride for a total volume of 10 mL. May administer as divided doses to reach optimal image enhancement. polyethylene glycol (GLYCOLAX) packet 17 g 17 g, Oral, DAILY PRN, Constipation, Starting on Mon03/01/21 at 1637, First line therapy for constipation simethicone (MYLICON) chewable tablet 80 mg 80 mg, Oral, EVERY 6 HOURS PRN, Cramping, Starting on Mon03/01/21 at 1735 sodium chloride flush 0.9 % injection 5-40 mL 5-40 mL, Intravenous, PRN, Line Care, After every IV line use, Starting on Mon03/01/21 at 1637, For Line Patency: Peripheral IV = 5 mL; Midline or Central Line = 10 mL/lumen. If following IV push medication, administer flush at same rate as the IV push. Flush volume is determined by type of infusion therapy being given. For non-viscous solutions use: Peripheral IV = 5 mL Midline or Central Line = 10 mL/lumen For viscous solutions (i.e. blood components, parenteral nutrition, contrast media, or after obtaining blood sample) use: Peripheral IV = 10 mL Midline or Central Line = 20 mL/lumen sodium chloride flush 0.9 % injection 5-40 mL 5-40 mL, Intravenous, PRN, Line Care, Per Municipal Services Manager Request, Starting on Mon03/01/21 at 1638, For 72 hours, May use order for Line Care after every IV line use and Agitated Saline Bubble Study. Administration for Bubble Study per creative services specialist request for only. Remove 1 mL 0.9% sodium chloride from 10 mL syringe for creating agitated saline. If following IV push medication, administer flush at same rate as the IV push. Flush volume is determined by type of infusion therapy being given. , For non-viscous solutions use: Peripheral IV = 5 mL Midline or Central Line = 10 mL/lumen For viscous solutions (i.e. blood components, parenteral nutrition, contrast media, or after obtaining blood sample) use: Peripheral IV = 10 mL Midline or Central Line = 20 mL/lumen Linked Groups Order Group 1: valsartan (DIOVAN) tablet 320 mgJump to med 320 mg, Oral, DAILY, First dose on Mon03/01/21 at 1900
Therapeutic substitution for DIOVAN -HCT 320-12.5mg daily When given with hydrochlorothiazide
And hydroCHLOROthiazide (HYDRODIURIL) tablet 12.5 mgJump to med 12.5 mg, Oral, DAILY, First dose on Mon03/01/21 at 1900 Group 2: acetaminophen (TYLENOL) tablet 650 mgJump to med 650 mg, Oral, EVERY 6 HOURS PRN, Pain Mild (1-3), Fever, For temp greater than 100.4 F (38 C), Starting on Mon03/01/21 at 1637
Maximum dose of acetaminophen is 4000 mg from all sources in 24 hours.
Or acetaminophen (TYLENOL) suppository 650 mgJump to med 650 mg, Rectal, EVERY 6 HOURS PRN, Pain Mild (1-3), Fever, For temp greater than 100.4 F (38 C), Starting on Mon03/01/21 at 1637
Administer if oral route cannot be used.
Group 3: ondansetron (ZOFRAN-ODT) disintegrating tablet 4 mgJump to med 4 mg, Oral, EVERY 8 HOURS PRN, Nausea, Vomiting, Starting on Mon03/01/21 at 1637 Or ondansetron (ZOFRAN) injection 4 mgJump to med 4 mg, Intravenous, EVERY 6 HOURS PRN, Nausea, Vomiting, Starting on Mon03/01/21 at 1637
Administer if oral route cannot be used.
Source Comments (unrecognize d section and content) In the event this informatio n is protected by the Federal Confidentiality of Alcohol and Drug Abuse Patient Records regulations: The Federal rules restrict any use of the information to criminally investigate or prosecute any alcohol or drug abuse patient.[facility] the event this information is protected by the Federal Confidentiality of Alcohol and Drug Abuse Patient Records regulations: The Federal rules restrict any use of the information to criminally investigate or prosecute any alcohol or drug abuse patient.[facility] HospitalIn the event this information is protected by the Federal Confidentiality of Alcohol and Drug Abuse Patient Records regulations: The Federal rules restrict any use of the information to criminally investigate or prosecute any alcohol or drug abuse patient.[facility] HospitalIn the event this information is protected by the Federal Confidentiality of Alcohol and Drug Abuse Patient Records regulations: The Federal rules restrict any use of the information to criminally investigate or prosecute any alcohol or drug abuse patient.[facility] HospitalIn the event this information is protected by the Federal Confidentiality of Alcohol and Drug Abuse Patient Records regulations: The Federal rules restrict any use of the information to criminally investigate or prosecute any alcohol or drug abuse patient.[facility] HospitalIn the event this information is protected by the Federal Confidentiality of Alcohol and Drug Abuse Patient Records regulations: The Federal rules restrict any use of the information to criminally investigate or prosecute any alcohol or drug abuse patient.[facility] HospitalIn the event this information is protected by the Federal Confidentiality of Alcohol and Drug Abuse Patient Records regulations: The Federal rules restrict any use of the information to criminally investigate or prosecute any alcohol or drug abuse patient.[facility] HospitalIn the event this information is protected by the Federal Confidentiality of Alcohol and Drug Abuse Patient Records regulations: The Federal rules restrict any use of the information to criminally investigate or prosecute any alcohol or drug abuse patient.[facility] HospitalIn the event this information is protected by the Federal Confidentiality of Alcohol and Drug Abuse Patient Records regulations: The Federal rules restrict any use of the information to criminally investigate or prosecute any alcohol or drug abuse patient.[facility] HospitalIn the event this information is protected by the Federal Confidentiality of Alcohol and Drug Abuse Patient Records regulations: The Federal rules restrict any use of the information to criminally investigate or prosecute any alcohol or drug abuse patient.[facility] HospitalIn the event this information is protected by the Federal Confidentiality of Alcohol and Drug Abuse Patient Records regulations: The Federal rules restrict any use of the information to criminally investigate or prosecute any alcohol or drug abuse patient.[facility] HospitalIn the event this information is protected by the Federal Confidentiality of Alcohol and Drug Abuse Patient Records regulations: The Federal rules restrict any use of the information to criminally investigate or prosecute any alcohol or drug abuse patient.[facility] HospitalIn the event this information is protected by the Federal Confidentiality of Alcohol and Drug Abuse Patient Records regulations: The Federal rules restrict any use of the information to criminally investigate or prosecute any alcohol or drug abuse patient.[facility] HospitalIn the event this information is protected by the Federal Confidentiality of Alcohol and Drug Abuse Patient Records regulations: The Federal rules restrict any use of the information to criminally investigate or prosecute any alcohol or drug abuse patient.[facility] HospitalIn the event this information is protected by the Federal Confidentiality of Alcohol and Drug Abuse Patient Records regulations: The Federal rules restrict any use of the information to criminally investigate or prosecute any alcohol or drug abuse patient.[facility] HospitalIn the event this information is protected by the Federal Confidentiality of Alcohol and Drug Abuse Patient Records regulations: The Federal rules restrict any use of the information to criminally investigate or prosecute any alcohol or drug abuse patient.[facility] HospitalIn the event this information is protected by the Federal Confidentiality of Alcohol and Drug Abuse Patient Records regulations: The Federal rules restrict any use of the information to criminally investigate or prosecute any alcohol or drug abuse patient.[facility] HospitalIn the event this information is protected by the Federal Confidentiality of Alcohol and Drug Abuse Patient Records regulations: The Federal rules restrict any use of the information to criminally investigate or prosecute any alcohol or drug abuse patient.[facility] HospitalIn the event this information is protected by the Federal Confidentiality of Alcohol and Drug Abuse Patient Records regulations: The Federal rules restrict any use of the information to criminally investigate or prosecute any alcohol or drug abuse patient.[facility] HospitalIn the event this information is protected by the Federal Confidentiality of Alcohol and Drug Abuse Patient Records regulations: The Federal rules restrict any use of the information to criminally investigate or prosecute any alcohol or drug abuse patient.[facility] HospitalIn the event this information is protected by the Federal Confidentiality of Alcohol and Drug Abuse Patient Records regulations: The Federal rules restrict any use of the information to criminally investigate or prosecute any alcohol or drug abuse patient.[facility] HospitalIn the event this information is protected by the Federal Confidentiality of Alcohol and Drug Abuse Patient Records regulations: The Federal rules restrict any use of the information to criminally investigate or prosecute any alcohol or drug abuse patient.[facility] HospitalIn the event this information is protected by the Federal Confidentiality of Alcohol and Drug Abuse Patient Records regulations: The Federal rules restrict any use of the information to criminally investigate or prosecute any alcohol or drug abuse patient.[facility] HospitalIn the event this information is protected by the Federal Confidentiality of Alcohol and Drug Abuse Patient Records regulations: The Federal rules restrict any use of the information to criminally investigate or prosecute any alcohol or drug abuse patient.[facility] HospitalIn the event this information is protected by the Federal Confidentiality of Alcohol and Drug Abuse Patient Records regulations: The Federal rules restrict any use of the information to criminally investigate or prosecute any alcohol or drug abuse patient.[facility] HospitalIn the event this information is protected by the Federal Confidentiality of Alcohol and Drug Abuse Patient Records regulations: The Federal rules restrict any use of the information to criminally investigate or prosecute any alcohol or drug abuse patient.[facility] HospitalIn the event this information is protected by the Federal Confidentiality of Alcohol and Drug Abuse Patient Records regulations: The Federal rules restrict any use of the information to criminally investigate or prosecute any alcohol or drug abuse patient.[facility] HospitalIn the event this information is protected by the Federal Confidentiality of Alcohol and Drug Abuse Patient Records regulations: The Federal rules restrict any use of the information to criminally investigate or prosecute any alcohol or drug abuse patient.[facility] HospitalIn the event this information is protected by the Federal Confidentiality of Alcohol and Drug Abuse Patient Records regulations: The Federal rules restrict any use of the information to criminally investigate or prosecute any alcohol or drug abuse patient.[facility] HospitalIn the event this information is protected by the Federal Confidentiality of Alcohol and Drug Abuse Patient Records regulations: The Federal rules restrict any use of the information to criminally investigate or prosecute any alcohol or drug abuse patient.[facility] HospitalIn the event this information is protected by the Federal Confidentiality of Alcohol and Drug Abuse Patient Records regulations: The Federal rules restrict any use of the information to criminally investigate or prosecute any alcohol or drug abuse patient.[facility] HospitalIn the event this information is protected by the Federal Confidentiality of Alcohol and Drug Abuse Patient Records regulations: The Federal rules restrict any use of the information to criminally investigate or prosecute any alcohol or drug abuse patient.[facility] HospitalIn the event this information is protected by the Federal Confidentiality of Alcohol and Drug Abuse Patient Records regulations: The Federal rules restrict any use of the information to criminally investigate or prosecute any alcohol or drug abuse patient.[facility] HospitalIn the event this information is protected by the Federal Confidentiality of Alcohol and Drug Abuse Patient Records regulations: The Federal rules restrict any use of the information to criminally investigate or prosecute any alcohol or drug abuse patient.[facility] HospitalIn the event this information is protected by the Federal Confidentiality of Alcohol and Drug Abuse Patient Records regulations: The Federal rules restrict any use of the information to criminally investigate or prosecute any alcohol or drug abuse patient.[facility] HospitalIn the event this information is protected by the Federal Confidentiality of Alcohol and Drug Abuse Patient Records regulations: The Federal rules restrict any use of the information to criminally investigate or prosecute any alcohol or drug abuse patient.[facility] HospitalIn the event this information is protected by the Federal Confidentiality of Alcohol and Drug Abuse Patient Records regulations: The Federal rules restrict any use of the information to criminally investigate or prosecute any alcohol or drug abuse patient.[facility] HospitalIn the event this information is protected by the Federal Confidentiality of Alcohol and Drug Abuse Patient Records regulations: The Federal rules restrict any use of the information to criminally investigate or prosecute any alcohol or drug abuse patient.[facility] HospitalIn the event this information is protected by the Federal Confidentiality of Alcohol and Drug Abuse Patient Records regulations: The Federal rules restrict any use of the information to criminally investigate or prosecute any alcohol or drug abuse patient.[facility] HospitalIn the event this information is protected by the Federal Confidentiality of Alcohol and Drug Abuse Patient Records regulations: The Federal rules restrict any use of the information to criminally investigate or prosecute any alcohol or drug abuse patient.[facility] HospitalIn the event this information is protected by the Federal Confidentiality of Alcohol and Drug Abuse Patient Records regulations: The Federal rules restrict any use of the information to criminally investigate or prosecute any alcohol or drug abuse patient.[facility] HospitalIn the event this information is protected by the Federal Confidentiality of Alcohol and Drug Abuse Patient Records regulations: The Federal rules restrict any use of the information to criminally investigate or prosecute any alcohol or drug abuse patient.[facility] HospitalIn the event this information is protected by the Federal Confidentiality of Alcohol and Drug Abuse Patient Records regulations: The Federal rules restrict any use of the information to criminally investigate or prosecute any alcohol or drug abuse patient.[facility] HospitalIn the event this information is protected by the Federal Confidentiality of Alcohol and Drug Abuse Patient Records regulations: The Federal rules restrict any use of the information to criminally investigate or prosecute any alcohol or drug abuse patient.[facility] HospitalIn the event this information is protected by the Federal Confidentiality of Alcohol and Drug Abuse Patient Records regulations: The Federal rules restrict any use of the information to criminally investigate or prosecute any alcohol or drug abuse patient.[facility] HospitalIn the event this information is protected by the Federal Confidentiality of Alcohol and Drug Abuse Patient Records regulations: The Federal rules restrict any use of the information to criminally investigate or prosecute any alcohol or drug abuse patient.[facility] HospitalIn the event this information is protected by the Federal Confidentiality of Alcohol and Drug Abuse Patient Records regulations: The Federal rules restrict any use of the information to criminally investigate or prosecute any alcohol or drug abuse patient.[facility] HospitalIn the event this information is protected by the Federal Confidentiality of Alcohol and Drug Abuse Patient Records regulations: The Federal rules restrict any use of the information to criminally investigate or prosecute any alcohol or drug abuse patient.[facility] HospitalIn the event this information is protected by the Federal Confidentiality of Alcohol and Drug Abuse Patient Records regulations: The Federal rules restrict any use of the information to criminally investigate or prosecute any alcohol or drug abuse patient.[facility] HospitalIn the event this information is protected by the Federal Confidentiality of Alcohol and Drug Abuse Patient Records regulations: The Federal rules restrict any use of the information to criminally investigate or prosecute any alcohol or drug abuse patient.[facility] HospitalIn the event this information is protected by the Federal Confidentiality of Alcohol and Drug Abuse Patient Records regulations: The Federal rules restrict any use of the information to criminally investigate or prosecute any alcohol or drug abuse patient.[facility] HospitalIn the event this information is protected by the Federal Confidentiality of Alcohol and Drug Abuse Patient Records regulations: The Federal rules restrict any use of the information to criminally investigate or prosecute any alcohol or drug abuse patient.[facility] HospitalIn the event this information is protected by the Federal Confidentiality of Alcohol and Drug Abuse Patient Records regulations: The Federal rules restrict any use of the information to criminally investigate or prosecute any alcohol or drug abuse patient.[facility] HospitalIn the event this information is protected by the Federal Confidentiality of Alcohol and Drug Abuse Patient Records regulations: The Federal rules restrict any use of the information to criminally investigate or prosecute any alcohol or drug abuse patient.[facility] HospitalIn the event this information is protected by the Federal Confidentiality of Alcohol and Drug Abuse Patient Records regulations: The Federal rules restrict any use of the information to criminally investigate or prosecute any alcohol or drug abuse patient.[facility] HospitalIn the event this information is protected by the Federal Confidentiality of Alcohol and Drug Abuse Patient Records regulations: The Federal rules restrict any use of the information to criminally investigate or prosecute any alcohol or drug abuse patient.[facility] HospitalIn the event this information is protected by the Federal Confidentiality of Alcohol and Drug Abuse Patient Records regulations: The Federal rules restrict any use of the information to criminally investigate or prosecute any alcohol or drug abuse patient.[facility] HospitalIn the event this information is protected by the Federal Confidentiality of Alcohol and Drug Abuse Patient Records regulations: The Federal rules restrict any use of the information to criminally investigate or prosecute any alcohol or drug abuse patient.[facility] HospitalIn the event this information is protected by the Federal Confidentiality of Alcohol and Drug Abuse Patient Records regulations: The Federal rules restrict any use of the information to criminally investigate or prosecute any alcohol or drug abuse patient.[facility] HospitalIn the event this information is protected by the Federal Confidentiality of Alcohol and Drug Abuse Patient Records regulations: The Federal rules restrict any use of the information to criminally investigate or prosecute any alcohol or drug abuse patient.[facility] HospitalIn the event this information is protected by the Federal Confidentiality of Alcohol and Drug Abuse Patient Records regulations: The Federal rules restrict any use of the information to criminally investigate or prosecute any alcohol or drug abuse patient.[facility] HospitalIn the event this information is protected by the Federal Confidentiality of Alcohol and Drug Abuse Patient Records regulations: The Federal rules restrict any use of the information to criminally investigate or prosecute any alcohol or drug abuse patient.[facility] HospitalIn the event this information is protected by the Federal Confidentiality of Alcohol and Drug Abuse Patient Records regulations: The Federal rules restrict any use of the information to criminally investigate or prosecute any alcohol or drug abuse patient.[facility] HospitalIn the event this information is protected by the Federal Confidentiality of Alcohol and Drug Abuse Patient Records regulations: The Federal rules restrict any use of the information to criminally investigate or prosecute any alcohol or drug abuse patient.[facility] HospitalIn the event this information is protected by the Federal Confidentiality of Alcohol and Drug Abuse Patient Records regulations: The Federal rules restrict any use of the information to criminally investigate or prosecute any alcohol or drug abuse patient.[facility] HospitalIn the event this information is protected by the Federal Confidentiality of Alcohol and Drug Abuse Patient Records regulations: The Federal rules restrict any use of the information to criminally investigate or prosecute any alcohol or drug abuse patient.[facility] HospitalIn the event this information is protected by the Federal Confidentiality of Alcohol and Drug Abuse Patient Records regulations: The Federal rules restrict any use of the information to criminally investigate or prosecute any alcohol or drug abuse patient.[facility] HospitalIn the event this information is protected by the Federal Confidentiality of Alcohol and Drug Abuse Patient Records regulations: The Federal rules restrict any use of the information to criminally investigate or prosecute any alcohol or drug abuse patient.[facility] HospitalIn the event this information is protected by the Federal Confidentiality of Alcohol and Drug Abuse Patient Records regulations: The Federal rules restrict any use of the information to criminally investigate or prosecute any alcohol or drug abuse patient.[facility] HospitalIn the event this information is protected by the Federal Confidentiality of Alcohol and Drug Abuse Patient Records regulations: The Federal rules restrict any use of the information to criminally investigate or prosecute any alcohol or drug abuse patient.[facility] HospitalIn the event this information is protected by the Federal Confidentiality of Alcohol and Drug Abuse Patient Records regulations: The Federal rules restrict any use of the information to criminally investigate or prosecute any alcohol or drug abuse patient.[facility] HospitalIn the event this information is protected by the Federal Confidentiality of Alcohol and Drug Abuse Patient Records regulations: The Federal rules restrict any use of the information to criminally investigate or prosecute any alcohol or drug abuse patient.[facility] HospitalIn the event this information is protected by the Federal Confidentiality of Alcohol and Drug Abuse Patient Records regulations: The Federal rules restrict any use of the information to criminally investigate or prosecute any alcohol or drug abuse patient.[facility] HospitalIn the event this information is protected by the Federal Confidentiality of Alcohol and Drug Abuse Patient Records regulations: The Federal rules restrict any use of the information to criminally investigate or prosecute any alcohol or drug abuse patient.[facility] HospitalIn the event this information is protected by the Federal Confidentiality of Alcohol and Drug Abuse Patient Records regulations: The Federal rules restrict any use of the information to criminally investigate or prosecute any alcohol or drug abuse patient.[facility] HospitalIn the event this information is protected by the Federal Confidentiality of Alcohol and Drug Abuse Patient Records regulations: The Federal rules restrict any use of the information to criminally investigate or prosecute any alcohol or drug abuse patient.[facility] HospitalIn the event this information is protected by the Federal Confidentiality of Alcohol and Drug Abuse Patient Records regulations: The Federal rules restrict any use of the information to criminally investigate or prosecute any alcohol or drug abuse patient.[facility] HospitalIn the event this information is protected by the Federal Confidentiality of Alcohol and Drug Abuse Patient Records regulations: The Federal rules restrict any use of the information to criminally investigate or prosecute any alcohol or drug abuse patient.[facility] HospitalIn the event this information is protected by the Federal Confidentiality of Alcohol and Drug Abuse Patient Records regulations: The Federal rules restrict any use of the information to criminally investigate or prosecute any alcohol or drug abuse patient.[facility] HospitalIn the event this information is protected by the Federal Confidentiality of Alcohol and Drug Abuse Patient Records regulations: The Federal rules restrict any use of the information to criminally investigate or prosecute any alcohol or drug abuse patient.[facility] HospitalIn the event this information is protected by the Federal Confidentiality of Alcohol and Drug Abuse Patient Records regulations: The Federal rules restrict any use of the information to criminally investigate or prosecute any alcohol or drug abuse patient.[facility] HospitalIn the event this information is protected by the Federal Confidentiality of Alcohol and Drug Abuse Patient Records regulations: The Federal rules restrict any use of the information to criminally investigate or prosecute any alcohol or drug abuse patient.[facility] HospitalIn the event this information is protected by the Federal Confidentiality of Alcohol and Drug Abuse Patient Records regulations: The Federal rules restrict any use of the information to criminally investigate or prosecute any alcohol or drug abuse patient.[facility] HospitalIn the event this information is protected by the Federal Confidentiality of Alcohol and Drug Abuse Patient Records regulations: The Federal rules restrict any use of the information to criminally investigate or prosecute any alcohol or drug abuse patient.[facility] HospitalIn the event this information is protected by the Federal Confidentiality of Alcohol and Drug Abuse Patient Records regulations: The Federal rules restrict any use of the information to criminally investigate or prosecute any alcohol or drug abuse patient.[facility] HospitalIn the event this information is protected by the Federal Confidentiality of Alcohol and Drug Abuse Patient Records regulations: The Federal rules restrict any use of the information to criminally investigate or prosecute any alcohol or drug abuse patient.[facility] HospitalIn the event this information is protected by the Federal Confidentiality of Alcohol and Drug Abuse Patient Records regulations: The Federal rules restrict any use of the information to criminally investigate or prosecute any alcohol or drug abuse patient.[facility] HospitalIn the event this information is protected by the Federal Confidentiality of Alcohol and Drug Abuse Patient Records regulations: The Federal rules restrict any use of the information to criminally investigate or prosecute any alcohol or drug abuse patient.[facility] HospitalIn the event this information is protected by the Federal Confidentiality of Alcohol and Drug Abuse Patient Records regulations: The Federal rules restrict any use of the information to criminally investigate or prosecute any alcohol or drug abuse patient.[facility] HospitalIn the event this information is protected by the Federal Confidentiality of Alcohol and Drug Abuse Patient Records regulations: The Federal rules restrict any use of the information to criminally investigate or prosecute any alcohol or drug abuse patient.[facility] HospitalIn the event this information is protected by the Federal Confidentiality of Alcohol and Drug Abuse Patient Records regulations: The Federal rules restrict any use of the information to criminally investigate or prosecute any alcohol or drug abuse patient.[facility] HospitalIn the event this information is protected by the Federal Confidentiality of Alcohol and Drug Abuse Patient Records regulations: The Federal rules restrict any use of the information to criminally investigate or prosecute any alcohol or drug abuse patient.[facility] HospitalIn the event this information is protected by the Federal Confidentiality of Alcohol and Drug Abuse Patient Records regulations: The Federal rules restrict any use of the information to criminally investigate or prosecute any alcohol or drug abuse patient.[facility] HospitalIn the event this information is protected by the Federal Confidentiality of Alcohol and Drug Abuse Patient Records regulations: The Federal rules restrict any use of the information to criminally investigate or prosecute any alcohol or drug abuse patient.[facility] HospitalIn the event this information is protected by the Federal Confidentiality of Alcohol and Drug Abuse Patient Records regulations: The Federal rules restrict any use of the information to criminally investigate or prosecute any alcohol or drug abuse patient.[facility] HospitalIn the event this information is protected by the Federal Confidentiality of Alcohol and Drug Abuse Patient Records regulations: The Federal rules restrict any use of the information to criminally investigate or prosecute any alcohol or drug abuse patient.[facility] HospitalIn the event this information is protected by the Federal Confidentiality of Alcohol and Drug Abuse Patient Records regulations: The Federal rules restrict any use of the information to criminally investigate or prosecute any alcohol or drug abuse patient.[facility] HospitalIn the event this information is protected by the Federal Confidentiality of Alcohol and Drug Abuse Patient Records regulations: The Federal rules restrict any use of the information to criminally investigate or prosecute any alcohol or drug abuse patient.[facility] HospitalIn the event this information is protected by the Federal Confidentiality of Alcohol and Drug Abuse Patient Records regulations: The Federal rules restrict any use of the information to criminally investigate or prosecute any alcohol or drug abuse patient.[facility] HospitalIn the event this information is protected by the Federal Confidentiality of Alcohol and Drug Abuse Patient Records regulations: The Federal rules restrict any use of the information to criminally investigate or prosecute any alcohol or drug abuse patient.[facility] HospitalIn the event this information is protected by the Federal Confidentiality of Alcohol and Drug Abuse Patient Records regulations: The Federal rules restrict any use of the information to criminally investigate or prosecute any alcohol or drug abuse patient.[facility] HospitalIn the event this information is protected by the Federal Confidentiality of Alcohol and Drug Abuse Patient Records regulations: The Federal rules restrict any use of the information to criminally investigate or prosecute any alcohol or drug abuse patient.[facility] HospitalIn the event this information is protected by the Federal Confidentiality of Alcohol and Drug Abuse Patient Records regulations: The Federal rules restrict any use of the information to criminally investigate or prosecute any alcohol or drug abuse patient.[facility] HospitalIn the event this information is protected by the Federal Confidentiality of Alcohol and Drug Abuse Patient Records regulations: The Federal rules restrict any use of the information to criminally investigate or prosecute any alcohol or drug abuse patient.[facility] HospitalIn the event this information is protected by the Federal Confidentiality of Alcohol and Drug Abuse Patient Records regulations: The Federal rules restrict any use of the information to criminally investigate or prosecute any alcohol or drug abuse patient.[facility] HospitalIn the event this information is protected by the Federal Confidentiality of Alcohol and Drug Abuse Patient Records regulations: The Federal rules restrict any use of the information to criminally investigate or prosecute any alcohol or drug abuse patient.[facility] HospitalIn the event this information is protected by the Federal Confidentiality of Alcohol and Drug Abuse Patient Records regulations: The Federal rules restrict any use of the information to criminally investigate or prosecute any alcohol or drug abuse patient.[facility] HospitalIn the event this information is protected by the Federal Confidentiality of Alcohol and Drug Abuse Patient Records regulations: The Federal rules restrict any use of the information to criminally investigate or prosecute any alcohol or drug abuse patient.[facility] HospitalIn the event this information is protected by the Federal Confidentiality of Alcohol and Drug Abuse Patient Records regulations: The Federal rules restrict any use of the information to criminally investigate or prosecute any alcohol or drug abuse patient.[facility] HospitalIn the event this information is protected by the Federal Confidentiality of Alcohol and Drug Abuse Patient Records regulations: The Federal rules restrict any use of the information to criminally investigate or prosecute any alcohol or drug abuse patient.[facility] HospitalIn the event this information is protected by the Federal Confidentiality of Alcohol and Drug Abuse Patient Records regulations: The Federal rules restrict any use of the information to criminally investigate or prosecute any alcohol or drug abuse patient.[facility] HospitalIn the event this information is protected by the Federal Confidentiality of Alcohol and Drug Abuse Patient Records regulations: The Federal rules restrict any use of the information to criminally investigate or prosecute any alcohol or drug abuse patient.[facility] HospitalIn the event this information is protected by the Federal Confidentiality of Alcohol and Drug Abuse Patient Records regulations: The Federal rules restrict any use of the information to criminally investigate or prosecute any alcohol or drug abuse patient.[facility] HospitalIn the event this information is protected by the Federal Confidentiality of Alcohol and Drug Abuse Patient Records regulations: The Federal rules restrict any use of the information to criminally investigate or prosecute any alcohol or drug abuse patient.[facility] HospitalIn the event this information is protected by the Federal Confidentiality of Alcohol and Drug Abuse Patient Records regulations: The Federal rules restrict any use of the information to criminally investigate or prosecute any alcohol or drug abuse patient.[facility] HospitalIn the event this information is protected by the Federal Confidentiality of Alcohol and Drug Abuse Patient Records regulations: The Federal rules restrict any use of the information to criminally investigate or prosecute any alcohol or drug abuse patient.[facility] HospitalIn the event this information is protected by the Federal Confidentiality of Alcohol and Drug Abuse Patient Records regulations: The Federal rules restrict any use of the information to criminally investigate or prosecute any alcohol or drug abuse patient.[facility] HospitalIn the event this information is protected by the Federal Confidentiality of Alcohol and Drug Abuse Patient Records regulations: The Federal rules restrict any use of the information to criminally investigate or prosecute any alcohol or drug abuse patient.[facility] HospitalIn the event this information is protected by the Federal Confidentiality of Alcohol and Drug Abuse Patient Records regulations: The Federal rules restrict any use of the information to criminally investigate or prosecute any alcohol or drug abuse patient.[facility] HospitalIn the event this information is protected by the Federal Confidentiality of Alcohol and Drug Abuse Patient Records regulations: The Federal rules restrict any use of the information to criminally investigate or prosecute any alcohol or drug abuse patient.[facility] HospitalIn the event this information is protected by the Federal Confidentiality of Alcohol and Drug Abuse Patient Records regulations: The Federal rules restrict any use of the information to criminally investigate or prosecute any alcohol or drug abuse patient.[facility] HospitalIn the event this information is protected by the Federal Confidentiality of Alcohol and Drug Abuse Patient Records regulations: The Federal rules restrict any use of the information to criminally investigate or prosecute any alcohol or drug abuse patient.[facility] HospitalIn the event this information is protected by the Federal Confidentiality of Alcohol and Drug Abuse Patient Records regulations: The Federal rules restrict any use of the information to criminally investigate or prosecute any alcohol or drug abuse patient.[facility] HospitalIn the event this information is protected by the Federal Confidentiality of Alcohol and Drug Abuse Patient Records regulations: The Federal rules restrict any use of the information to criminally investigate or prosecute any alcohol or drug abuse patient.[facility] HospitalIn the event this information is protected by the Federal Confidentiality of Alcohol and Drug Abuse Patient Records regulations: The Federal rules restrict any use of the information to criminally investigate or prosecute any alcohol or drug abuse patient.[facility] HospitalIn the event this information is protected by the Federal Confidentiality of Alcohol and Drug Abuse Patient Records regulations: The Federal rules restrict any use of the information to criminally investigate or prosecute any alcohol or drug abuse patient.[facility] HospitalIn the event this information is protected by the Federal Confidentiality of Alcohol and Drug Abuse Patient Records regulations: The Federal rules restrict any use of the information to criminally investigate or prosecute any alcohol or drug abuse patient.[facility] HospitalIn the event this information is protected by the Federal Confidentiality of Alcohol and Drug Abuse Patient Records regulations: The Federal rules restrict any use of the information to criminally investigate or prosecute any alcohol or drug abuse patient.[facility] HospitalIn the event this information is protected by the Federal Confidentiality of Alcohol and Drug Abuse Patient Records regulations: The Federal rules restrict any use of the information to criminally investigate or prosecute any alcohol or drug abuse patient.[facility] HospitalIn the event this information is protected by the Federal Confidentiality of Alcohol and Drug Abuse Patient Records regulations: The Federal rules restrict any use of the information to criminally investigate or prosecute any alcohol or drug abuse patient.[facility] HospitalIn the event this information is protected by the Federal Confidentiality of Alcohol and Drug Abuse Patient Records regulations: The Federal rules restrict any use of the information to criminally investigate or prosecute any alcohol or drug abuse patient.[facility] HospitalIn the event this information is protected by the Federal Confidentiality of Alcohol and Drug Abuse Patient Records regulations: The Federal rules restrict any use of the information to criminally investigate or prosecute any alcohol or drug abuse patient.[facility] HospitalIn the event this information is protected by the Federal Confidentiality of Alcohol and Drug Abuse Patient Records regulations: The Federal rules restrict any use of the information to criminally investigate or prosecute any alcohol or drug abuse patient.[facility] HospitalIn the event this information is protected by the Federal Confidentiality of Alcohol and Drug Abuse Patient Records regulations: The Federal rules restrict any use of the information to criminally investigate or prosecute any alcohol or drug abuse patient.[facility] HospitalIn the event this information is protected by the Federal Confidentiality of Alcohol and Drug Abuse Patient Records regulations: The Federal rules restrict any use of the information to criminally investigate or prosecute any alcohol or drug abuse patient.[facility] HospitalIn the event this information is protected by the Federal Confidentiality of Alcohol and Drug Abuse Patient Records regulations: The Federal rules restrict any use of the information to criminally investigate or prosecute any alcohol or drug abuse patient.[facility] HospitalIn the event this information is protected by the Federal Confidentiality of Alcohol and Drug Abuse Patient Records regulations: The Federal rules restrict any use of the information to criminally investigate or prosecute any alcohol or drug abuse patient.[facility] HospitalIn the event this information is protected by the Federal Confidentiality of Alcohol and Drug Abuse Patient Records regulations: The Federal rules restrict any use of the information to criminally investigate or prosecute any alcohol or drug abuse patient.[facility] HospitalIn the event this information is protected by the Federal Confidentiality of Alcohol and Drug Abuse Patient Records regulations: The Federal rules restrict any use of the information to criminally investigate or prosecute any alcohol or drug abuse patient.[facility] HospitalIn the event this information is protected by the Federal Confidentiality of Alcohol and Drug Abuse Patient Records regulations: The Federal rules restrict any use of the information to criminally investigate or prosecute any alcohol or drug abuse patient.[facility] HospitalIn the event this information is protected by the Federal Confidentiality of Alcohol and Drug Abuse Patient Records regulations: The Federal rules restrict any use of the information to criminally investigate or prosecute any alcohol or drug abuse patient.[facility] HospitalIn the event this information is protected by the Federal Confidentiality of Alcohol and Drug Abuse Patient Records regulations: The Federal rules restrict any use of the information to criminally investigate or prosecute any alcohol or drug abuse patient.[facility] HospitalIn the event this information is protected by the Federal Confidentiality of Alcohol and Drug Abuse Patient Records regulations: The Federal rules restrict any use of the information to criminally investigate or prosecute any alcohol or drug abuse patient.[facility] HospitalIn the event this information is protected by the Federal Confidentiality of Alcohol and Drug Abuse Patient Records regulations: The Federal rules restrict any use of the information to criminally investigate or prosecute any alcohol or drug abuse patient.[facility] HospitalIn the event this information is protected by the Federal Confidentiality of Alcohol and Drug Abuse Patient Records regulations: The Federal rules restrict any use of the information to criminally investigate or prosecute any alcohol or drug abuse patient.[facility] HospitalIn the event this information is protected by the Federal Confidentiality of Alcohol and Drug Abuse Patient Records regulations: The Federal rules restrict any use of the information to criminally investigate or prosecute any alcohol or drug abuse patient.[facility] HospitalIn the event this information is protected by the Federal Confidentiality of Alcohol and Drug Abuse Patient Records regulations: The Federal rules restrict any use of the information to criminally investigate or prosecute any alcohol or drug abuse patient.[facility] HospitalIn the event this information is protected by the Federal Confidentiality of Alcohol and Drug Abuse Patient Records regulations: The Federal rules restrict any use of the information to criminally investigate or prosecute any alcohol or drug abuse patient.[facility] HospitalIn the event this information is protected by the Federal Confidentiality of Alcohol and Drug Abuse Patient Records regulations: The Federal rules restrict any use of the information to criminally investigate or prosecute any alcohol or drug abuse patient.[facility] HospitalIn the event this information is protected by the Federal Confidentiality of Alcohol and Drug Abuse Patient Records regulations: The Federal rules restrict any use of the information to criminally investigate or prosecute any alcohol or drug abuse patient.[facility] HospitalIn the event this information is protected by the Federal Confidentiality of Alcohol and Drug Abuse Patient Records regulations: The Federal rules restrict any use of the information to criminally investigate or prosecute any alcohol or drug abuse patient.[facility] HospitalIn the event this information is protected by the Federal Confidentiality of Alcohol and Drug Abuse Patient Records regulations: The Federal rules restrict any use of the information to criminally investigate or prosecute any alcohol or drug abuse patient.[facility] HospitalIn the event this information is protected by the Federal Confidentiality of Alcohol and Drug Abuse Patient Records regulations: The Federal rules restrict any use of the information to criminally investigate or prosecute any alcohol or drug abuse patient.[facility] HospitalIn the event this information is protected by the Federal Confidentiality of Alcohol and Drug Abuse Patient Records regulations: The Federal rules restrict any use of the information to criminally investigate or prosecute any alcohol or drug abuse patient.[facility] HospitalIn the event this information is protected by the Federal Confidentiality of Alcohol and Drug Abuse Patient Records regulations: The Federal rules restrict any use of the information to criminally investigate or prosecute any alcohol or drug abuse patient.[facility] HospitalIn the event this information is protected by the Federal Confidentiality of Alcohol and Drug Abuse Patient Records regulations: The Federal rules restrict any use of the information to criminally investigate or prosecute any alcohol or drug abuse patient.[facility] HospitalIn the event this information is protected by the Federal Confidentiality of Alcohol and Drug Abuse Patient Records regulations: The Federal rules restrict any use of the information to criminally investigate or prosecute any alcohol or drug abuse patient.[facility] HospitalIn the event this information is protected by the Federal Confidentiality of Alcohol and Drug Abuse Patient Records regulations: The Federal rules restrict any use of the information to criminally investigate or prosecute any alcohol or drug abuse patient.[facility] HospitalIn the event this information is protected by the Federal Confidentiality of Alcohol and Drug Abuse Patient Records regulations: The Federal rules restrict any use of the information to criminally investigate or prosecute any alcohol or drug abuse patient.[facility] HospitalIn the event this information is protected by the Federal Confidentiality of Alcohol and Drug Abuse Patient Records regulations: The Federal rules restrict any use of the information to criminally investigate or prosecute any alcohol or drug abuse patient.[facility] HospitalIn the event this information is protected by the Federal Confidentiality of Alcohol and Drug Abuse Patient Records regulations: The Federal rules restrict any use of the information to criminally investigate or prosecute any alcohol or drug abuse patient.[facility] HospitalIn the event this information is protected by the Federal Confidentiality of Alcohol and Drug Abuse Patient Records regulations: The Federal rules restrict any use of the information to criminally investigate or prosecute any alcohol or drug abuse patient.[facility] HospitalIn the event this information is protected by the Federal Confidentiality of Alcohol and Drug Abuse Patient Records regulations: The Federal rules restrict any use of the information to criminally investigate or prosecute any alcohol or drug abuse patient.[facility] HospitalIn the event this information is protected by the Federal Confidentiality of Alcohol and Drug Abuse Patient Records regulations: The Federal rules restrict any use of the information to criminally investigate or prosecute any alcohol or drug abuse patient.[facility] HospitalIn the event this information is protected by the Federal Confidentiality of Alcohol and Drug Abuse Patient Records regulations: The Federal rules restrict any use of the information to criminally investigate or prosecute any alcohol or drug abuse patient.[facility] HospitalIn the event this information is protected by the Federal Confidentiality of Alcohol and Drug Abuse Patient Records regulations: The Federal rules restrict any use of the information to criminally investigate or prosecute any alcohol or drug abuse patient.[facility] HospitalIn the event this information is protected by the Federal Confidentiality of Alcohol and Drug Abuse Patient Records regulations: The Federal rules restrict any use of the information to criminally investigate or prosecute any alcohol or drug abuse patient.[facility] HospitalIn the event this information is protected by the Federal Confidentiality of Alcohol and Drug Abuse Patient Records regulations: The Federal rules restrict any use of the information to criminally investigate or prosecute any alcohol or drug abuse patient.[facility] HospitalIn the event this information is protected by the Federal Confidentiality of Alcohol and Drug Abuse Patient Records regulations: The Federal rules restrict any use of the information to criminally investigate or prosecute any alcohol or drug abuse patient.[facility] HospitalIn the event this information is protected by the Federal Confidentiality of Alcohol and Drug Abuse Patient Records regulations: The Federal rules restrict any use of the information to criminally investigate or prosecute any alcohol or drug abuse patient.[facility] HospitalIn the event this information is protected by the Federal Confidentiality of Alcohol and Drug Abuse Patient Records regulations: The Federal rules restrict any use of the information to criminally investigate or prosecute any alcohol or drug abuse patient.[facility] HospitalIn the event this information is protected by the Federal Confidentiality of Alcohol and Drug Abuse Patient Records regulations: The Federal rules restrict any use of the information to criminally investigate or prosecute any alcohol or drug abuse patient.[facility] HospitalIn the event this information is protected by the Federal Confidentiality of Alcohol and Drug Abuse Patient Records regulations: The Federal rules restrict any use of the information to criminally investigate or prosecute any alcohol or drug abuse patient.[facility] HospitalIn the event this information is protected by the Federal Confidentiality of Alcohol and Drug Abuse Patient Records regulations: The Federal rules restrict any use of the information to criminally investigate or prosecute any alcohol or drug abuse patient.[facility] HospitalIn the event this information is protected by the Federal Confidentiality of Alcohol and Drug Abuse Patient Records regulations: The Federal rules restrict any use of the information to criminally investigate or prosecute any alcohol or drug abuse patient.[facility] Reason for Visit (unrecogniz ed section and content) Reason Comments Established Patient RLS, MAURICE Specialty Diagnoses / Procedures Referred By Contac t Referred To Contact Diagnoses Restless legs Procedures CONSULT TO SLEEP MEDICINE - ADULT NEW PATIENT VISIT LEVEL 5 Helen Chapa MD [address] [place] [address] Referral ID Status Reason Start Date Expiration Date V isits Requested Visits Authorized [id number] Closed PCP Requested Referral 07/14/2021 07/14/2022 1 1 Reason Comments Patient Education Assessment Specialty Diagnoses / Procedures Referred By Contac t Referred To Contact Nutrition Diagnoses Class 3 severe obesity without serious comorbidity with body mass index (BMI) of 45.0 to 49.9 in adult, unspecified obesity type (HCC) Weight loss counseling, encounter for Gastroesophageal reflux disease with esophagitis, unspecified whether hemorrhage Type 2 diabetes mellitus with other specified complication, without long-term current use of insulin (HCC) Procedures CONSULT TO NUTRITION THERAPY OFFICE/OUTPATIENT NEW HIGH MDM 60-74 MINUTES Екатерина Escalante APRN.MICROGRINDER OPERATOR [address] [place] [address] Referral ID Status Reason Start Date Expiration Date V isits Requested Visits Authorized [id number] Closed PCP Requested Referral 09/03/2021 09/03/2022 1 1 Reason Comments New Patient Low Back Pain Right Hip Pain Leg Pain right Reason Onset Date Comments Community Monitoring Outreach 11/18/2021 CK D CDM Enrollment Outreach Reason Comments Refill Request Reason Comments New NI Sleep Consult MAURICE and Rest less legs Reason Comments Medication Follow-up Specialty Diagnoses / Procedures Referred By Contac t Referred To Contact Orthopedics Diagnoses Right hip pain Primary osteoarthritis of right hip Procedures CONSULT TO ORTHOPAEDICS NEW PATIENT VISIT LEVEL 5 Francesco Castrejon, SILK CREPE MACHINE OPERATOR.MICROGRINDER OPERATOR [address] [place] [address] Referral ID Status Reason Start Date Expiration Date V isits Requested Visits Authorized [id number] Closed PCP Requested Referral 04/22/2021 04/22/2022 1 1 Reason Onset Date Comments Refill Request 11/30/2021 Reason Comments Patient Update Reason Comments follow up right hip pain Reason Comments Established Patient Pain Reason Onset Date Comments Refill Request 01/24/2022 Reason Onset Date Comments Insight Escalation 01/31/2022 Care Keith n Questionnaire Triggered call Reason Comments Lab Orders Reason Comments Prescription Refills Reason Comments Reassessment Patient Education Specialty Diagnoses / Procedures Referred By Jae pablo Referred To Contact Nutrition / [facility] Diagnoses Class 3 severe obesity without serious comorbidity with body mass index (BMI) of... Weight loss counseling, encounter for [Z71.3] Gastroesophageal reflux disease with esophagitis, unspecified whether hemorrhage... Type 2 diabetes mellitus with other specified complication, without long-term cu... Procedures EST DDI NUTRITION Екатерина Escalante, GREG.MICROGRINDER OPERATOR [address] [place] [address] Radha High, RD [address] [place] [address] Referral ID Status Reason Start Date Expiration Date V isits Requested Visits Authorized [id number] Pending Review 01/17/2022 04/17/2022 1 1 Reason Comments Glyburide update Reason Comments FYI-No Action Needed Reason Comments Patient Question Reason Comments Letter Reason Comments Preparations For Surgery Reason Comments Request for outside medical records Reason Comments Cardiac Clearance Reason Comments Consult Reason Comments Patient Update Surgery instructions Reason Onset Date Comments Pre-Op Teaching 04/28/2022 Reason Comments Returning Patient's Call Reason Onset Date Comments Refill Request 04/29/2022 Reason Comments Procedure Urodynamics Reason Onset Date Comments Refill Request 06/02/2022 Reason Comments Medication Problem Reason Comments Post Op Reason Onset Date Comments Refill Request 07/22/2022 Reason Comments Recheck 6 month follow up Reason Onset Date Comments Refill Request 08/18/2022 Reason Comments Medication Request Reason Comments Orders Reason Comments Glucometer system PA Reason Comments Results Reason Comments Follow Up Medications Reason Onset Date Comments Refill Request 10/25/2022 Reason Comments Glucometer/supplies issue Reason Onset Date Comments Community Monitoring Outreach 11/11/2022 Reason Comments Medicare Wellness Exam Annual Medicare W ellness Reason Comments Orders Reason Comments Medical Records Reason Comments Follow Up Reason Comments Established Patient Follow Up Ingrown Toenail Callous Reason Onset Date Comments Refill Request 01/10/2023 Reason Comments Patient Education Reassessment Reason Comments Established Patient Follow Up Pain Reason Comments Schedule Surgery Reason Comments Handicap placard Reason Onset Date Comments Refill Request 02/08/2023 Reason Comments Lab order request Reason Comments Pre-Op Teaching Reason Comments Home Care Confirmation Call Reason Comments Home Care Post op dressing rem oval Reason Comments Established Patient Post Op Reason Onset Date Comments Refill Request 03/29/2023 Reason Onset Date Comments Community Monitoring Outreach 04/07/2023 Reason Comments Patient Education Reason Onset Date Comments Refill Request 07/19/2023 Reason Comments Recheck 3 month follow up DM Reason Comments Insurance Authorization Reason Onset Date Comments Community Monitoring Outreach 11/07/2023 Reason Onset Date Comments Refill Request 11/23/2023 Reason Comments Follow Up Follow up RLS, c/o i ntermittent (LT) toe pain x1 year. Reason Onset Date Comments Community Monitoring Outreach 01/31/2024 Reason Comments Recheck 6 month follow up Reason Comments Patient Request Reason Onset Date Comments Refill Request 06/06/2024 Reason Comments Follow Up 6 month RLS follow u p, patient states her medications are working well, no issues at this time Reason Onset Date Comments Refill Request 07/26/2024 Reason Comments Recheck 6 month follow up Reason Comments Cough Cough and congestion x 6 days Reason Onset Date Comments Refill Request 11/27/2024 Reason Comments New Pain Diabetic Foot Ulcer Diabetic Foot Care Reason Comments Medication Problem Horizant Reason Comments Medication Problem Reason Comments Insurance Authorization Gabapentin Reason Comments Follow Up RLS was previously H orizant and insurance denied coverage, switch Gabapentin ER and is having several side effects, patient has since stopped taking Reason Comments Hammer Toe Established Patient Follow Up Established Patient Discuss PVR Reason Comments Insurance Authorization Horizant Reason Onset Date Comments Refill Request 02/17/2025 Reason Comments Follow Up 3 month Care Teams (unrecognized sec tion and content) Core Winder Relationship Specialty Start Date End Date Helen Chapa MD [address] [place], [place] [address] PCP - General Internal Medicine 08/26/19 Core Winder Relationship Specialty Start Date End Date Helen Chapa MD [address] [place], [place] [id number] PCP - General Internal Medicine 08/26/19 Roman Knott cone cleanerPrint Developer Automatic Internal Medicine 11/18/21 Core Winder Relationship Specialty Start Date End Date Helen Chapa MD [address] [place], [place] [id number] PCP - General Internal Medicine 08/26/19 Roman Knott, cone cleanerPrint Developer Automatic Internal Medicine 11/18/21 Core Winder Relationship Specialty Start Date End Date Helen Chapa MD [address] [facility] [place] [address] PCP - General Internal Medicine 08/26/19 Roman Knott, cone cleanerPrint Developer Automatic Internal Medicine 11/18/21 Core Winder Relationship Specialty Start Date End Date Helen Chapa MD [address] [facility] [place] [place] [address] PCP - General Internal Medicine 08/26/19 Roman Knott, cone cleanerPrint Developer Automatic Internal Medicine 11/18/21 Core Winder Relationship Specialty Start Date End Date Helen Chapa MD [address] [facility] [place] [place] [address] PCP - General Internal Medicine 08/26/19 Roman Knott, cone cleanerPrint Developer Automatic Internal Medicine 11/18/21 Core Winder Relationship Specialty Start Date End Date Helen Chapa MD [address] [facility] [place] [address] PCP - General Internal Medicine 08/26/19 Roman Knott, cone cleanerPrint Developer Automatic Internal Medicine 11/18/21 Core Winder Relationship Specialty Start Date End Date Helen Chapa MD [address] [facility] [place] [address] PCP - General Internal Medicine 08/26/19 Roman Knott, cone cleanerPrint Developer Automatic Internal Medicine 11/18/21 Core Winder Relationship Specialty Start Date End Date Helen Chapa MD [address] [facility] [place] [address] PCP - General Internal Medicine 08/26/19 Roman Kntot, cone cleanerPrint Developer Automatic Internal Medicine 11/18/21 Core Winder Relationship Specialty Start Date End Date Helen Chapa MD [address] [place] [address] PCP - General Internal Medicine 08/26/19 Roman Knott, cone cleanerPrint Developer Automatic Internal Medicine 11/18/21 Core Winder Relationship Specialty Start Date End Date Helen Chapa MD [address] [place] [address] PCP - General Internal Medicine 08/26/19 Roman Knott, cone cleanerPrint Developer Automatic Internal Medicine 11/18/21 Core Winder Relationship Specialty Start Date End Date Helen Chapa MD [address] [place] [address] PCP - General Internal Medicine 08/26/19 Roman Knott, cone cleanerPrint Developer Automatic Internal Medicine 11/18/21 Core Winder Relationship Specialty Start Date End Date Helen Chapa MD [address] [place] [address] PCP - General Internal Medicine 08/26/19 Roman Knott, cone cleanerPrint Developer Automatic Internal Medicine 11/18/21 Core Winder Relationship Specialty Start Date End Date Helen Chapa MD [address] [place] [address] PCP - General Internal Medicine 08/26/19 Roman Knott, cone cleanerPrint Developer Automatic Internal Medicine 11/18/21 Core Winder Relationship Specialty Start Date End Date Helen Chapa MD [address] [place] [address] PCP - General Internal Medicine 08/26/19 Roman Knott, cone cleanerPrint Developer Automatic Internal Medicine 11/18/21 Core Winder Relationship Specialty Start Date End Date Helen Chapa MD [address] [place] [address] PCP - General Internal Medicine 08/26/19 Roman Knott, cone cleanerPrint Developer Automatic Internal Medicine 11/18/21 Core Winder Relationship Specialty Start Date End Date Helen Chapa MD [address] [place] [address] PCP - General Internal Medicine 08/26/19 Roman Knott, cone cleanerPrint Developer Automatic Internal Medicine 11/18/21 Core Winder Relationship Specialty Start Date End Date Helen Chapa MD [address] [facility] [address] PCP - General Internal Medicine 08/26/19 Roman Knott, cone cleanerPrint Developer Automatic Internal Medicine 11/18/21 Core Winder Relationship Specialty Start Date End Date Helen Chapa MD [address] [place] [address] PCP - General Internal Medicine 08/26/19 Roman Knott, cone cleanerPrint Developer Automatic Internal Medicine 11/18/21 Core Winder Relationship Specialty Start Date End Date Helen Chapa MD [address] [place] [address] PCP - General Internal Medicine 08/26/19 Roman Knott, cone cleanerPrint Developer Automatic Internal Medicine 11/18/21 Core Winder Relationship Specialty Start Date End Date Helen Chapa MD [address] [place] [address] PCP - General Internal Medicine 08/26/19 Roman Knott, cone cleanerPrint Developer Automatic Internal Medicine 11/18/21 Core Winder Relationship Specialty Start Date End Date Helen Chapa MD [address] [facility] [address] PCP - General Internal Medicine 08/26/19 Roman Knott, cone cleanerPrint Developer Automatic Internal Medicine 11/18/21 Core Winder Relationship Specialty Start Date End Date Helen Chapa MD [address] [facility] [address] PCP - General Internal Medicine 08/26/19 Roman Knott, cone cleanerPrint Developer Automatic Internal Medicine 11/18/21 Core Winder Relationship Specialty Start Date End Date Helen Chapa MD [address] [facility] [place] [address] PCP - General Internal Medicine 08/26/19 Roman Knott, cone cleanerPrint Developer Automatic Internal Medicine 11/18/21 Core Winder Relationship Specialty Start Date End Date Helen Chapa MD [address] [facility] [place] [address] PCP - General Internal Medicine 08/26/19 Roman Knott, cone cleanerPrint Developer Automatic Internal Medicine 11/18/21 Core Winder Relationship Specialty Start Date End Date Helen Chapa MD [address] [facility] [place] [address] PCP - General Internal Medicine 08/26/19 Roman Knott, cone cleanerPrint Developer Automatic Internal Medicine 11/18/21 Core Winder Relationship Specialty Start Date End Date Helen Chapa MD [address] [facility] [place] [address] PCP - General Internal Medicine 08/26/19 Hedy Owens, cone cleanerPrint Developer Automatic Internal Medicine 11/18/21 Core Winder Relationship Specialty Start Date End Date Helen Chapa MD [address] [facility] [place] [address] PCP - General Internal Medicine 08/26/19 Hedy Owens, cone cleanerPrint Developer Automatic Internal Medicine 11/18/21 Core Winder Relationship Specialty Start Date End Date Helen Chapa MD [address] [facility] [place] [address] PCP - General Internal Medicine 08/26/19 Hedy Owens, cone cleanerPrint Developer Automatic Internal Medicine 11/18/21 Core Winder Relationship Specialty Start Date End Date Helen Chapa MD [address] [place] [address] PCP - General Internal Medicine 08/26/19 Hedy Owens, cone cleanerPrint Developer Automatic Internal Medicine 11/18/21 Core Winder Relationship Specialty Start Date End Date Helen Chapa MD [address] [place] [address] PCP - General Internal Medicine 08/26/19 Hedy Owens, cone cleanerPrint Developer Automatic Internal Medicine 11/18/21 Core Winder Relationship Specialty Start Date End Date Helen Chapa MD [address] [place] [address] PCP - General Internal Medicine 08/26/19 Hedy Owens, cone cleanerPrint Developer Automatic Internal Medicine 11/18/21 Core Winder Relationship Specialty Start Date End Date Helen Chapa MD [address] [place] [address] PCP - General Internal Medicine 08/26/19 Hedy Owens, cone cleanerPrint Developer Automatic Internal Medicine 11/18/21 Core Winder Relationship Specialty Start Date End Date Helen Chapa MD [address] [place] [address] PCP - General Internal Medicine 08/26/19 Hedy Owens, cone cleanerPrint Developer Automatic Internal Medicine 11/18/21 Core Winder Relationship Specialty Start Date End Date Helen Chapa MD [address] [place] [address] PCP - General Internal Medicine 08/26/19 Hedy Owens, cone cleanerPrint Developer Automatic Internal Medicine 11/18/21 Core Winder Relationship Specialty Start Date End Date Helen Chapa MD [address] [place] [address] PCP - General Internal Medicine 08/26/19 Hedy Owens, cone cleanerPrint Developer Automatic Internal Medicine 11/18/21 Core Winder Relationship Specialty Start Date End Date Helen Chapa MD [address] [facility] [place] [address] PCP - General Internal Medicine 08/26/19 Hedy Owens, cone cleanerPrint Developer Automatic Internal Medicine 11/18/21 Core Winder Relationship Specialty Start Date End Date Helen Chapa MD [address] [facility] [place] [address] PCP - General Internal Medicine 08/26/19 Hedy Owens, cone cleanerPrint Developer Automatic Internal Medicine 11/18/21 Core Winder Relationship Specialty Start Date End Date Helen Chapa MD [address] [facility] [place] [address] PCP - General Internal Medicine 08/26/19 Hedy Owens, cone cleanerPrint Developer Automatic Internal Medicine 11/18/21 Core Winder Relationship Specialty Start Date End Date Helen Chapa MD [address] [facility] [place] [address] PCP - General Internal Medicine 08/26/19 Hedy Owens, cone cleanerPrint Developer Automatic Internal Medicine 11/18/21 Team Status: Active Member Role Status Dates Dr. Helen Chapa MD Primary Care Provider Active Team Status: Inactive Member Role Status Dates Dr. Helen Chapa MD Primary Care Provider, Referring Provider Active Dr. Paolo Fitch MD Attending Provider Active Team Status: Inactive Member Role Status Dates Dr. Helen Chapa MD Primary Care Provider Active YOBANY BUCKLEY Attending Provider, Referring Provide r Active Core Winder Relationship Specialty Start Date End Date Helen Chapa MD [address] [facility] [place] [address] PCP - General Internal Medicine 08/26/19 Hedy Owens, cone cleanerPrint Developer Automatic Internal Medicine 11/18/21 Core Winder Relationship Specialty Start Date End Date Helen Chapa MD [address] [place] [address] PCP - General Internal Medicine 08/26/19 Hedy Owens, cone cleanerPrint Developer Automatic Internal Medicine 11/18/21 Core Winder Relationship Specialty Start Date End Date Helen Chapa MD [address] [place] [address] PCP - General Internal Medicine 08/26/19 Hedy Owens, cone cleanerPrint Developer Automatic Internal Medicine 11/18/21 Core Winder Relationship Specialty Start Date End Date Helen Chapa MD [address] [place] [address] PCP - General Internal Medicine 08/26/19 Hedy Owens, cone cleanerPrint Developer Automatic Internal Medicine 11/18/21 Core Winder Relationship Specialty Start Date End Date Helen Chapa MD [address] [place] [address] PCP - General Internal Medicine 08/26/19 Hedy Owens, cone cleanerPrint Developer Automatic Internal Medicine 11/18/21 Core Winder Relationship Specialty Start Date End Date Helen Chapa MD [address] [place] [address] PCP - General Internal Medicine 08/26/19 Hedy Owens, cone cleanerPrint Developer Automatic Internal Medicine 11/18/21 Marco Hernandez MD [address] [place] [phone] Home Care Provider Orthopedics 03/16/23 Christiano Loya PA-C [address] [place] [id number] Referring Orthopedics 03/16/23 Leonor Funes, PT [address] [place] [address] Rn Plastic Surgery Post Acute Care 03/16/23 Core Winder Relationship Specialty Start Date End Date Helen Chapa MD [address] [place] [address] PCP - General Internal Medicine 08/26/19 Hedy Owens, cone cleanerPrint Developer Automatic Internal Medicine 11/18/21 Marco Hernandez MD [address] [place] [address] [phone] Home Care Provider Orthopedics 03/16/23 Christiano Lyoa PA-C [address] [place] [address] 49386 Referring Orthopedics 03/16/23 Leonor Funes, PT [address] [place] [address] Rn Plastic Surgery Post Acute Care 03/16/23 Core Winder Relationship Specialty Start Date End Date Helen Chapa MD [address] [place] [address] PCP - General Internal Medicine 08/26/19 Hedy Owens RN Print Developer Automatic Internal Medicine 11/18/21 Marco Hernandez MD [address] [place] [address] 60322 Home Care Provider Orthopedics 03/16/23 Christiano Loya PA-C [address] [place] [address] 54474 Referring Orthopedics 03/16/23 Leonor Funes, PT [address] [place] [address] Rn Plastic Surgery Post Acute Care 03/16/23 Core Winder Relationship Specialty Start Date End Date Helen Chapa MD [address] [place] [address] PCP - General Internal Medicine 08/26/19 Hedy Owens, cone cleanerPrint Developer Automatic Internal Medicine 11/18/21 Marco Hernandez MD [address] [address] Home Care Provider Orthopedics 03/16/23 Christiano Loya PA-C [address] [place] [address] 11391 Referring Orthopedics 03/16/23 Leonor Funes, PT [address] [place], [place] [phone] Rn Plastic Surgery Post Acute Care 03/16/23 Core Winder Relationship Specialty Start Date End Date Helen Chapa MD [address] [place] [address] PCP - General Internal Medicine 08/26/19 Hedy Owens, cone cleanerPrint Developer Automatic Internal Medicine 11/18/21 Marco Hernandez MD [address] [place] [address] 73360 Home Care Provider Orthopedics 03/16/23 Christiano Loya PA-C [address] [place] [address] 06378 Referring Orthopedics 03/16/23 Leonor Funes, PT [address] [place], [place] [phone] Rn Plastic Surgery Post Acute Care 03/16/23 Core Winder Relationship Specialty Start Date End Date Helen Chapa MD [address] [place] [address] PCP - General Internal Medicine 08/26/19 Hedy Owens, cone cleanerPrint Developer Automatic Internal Medicine 11/18/21 Marco Hernandez MD [address] [address] Home Care Provider Orthopedics 03/16/23 Christiano Loya PA-C [address] [place] [address] 30298 Referring Orthopedics 03/16/23 Leonor Funes, PT [address] [place] [address] Rn Plastic Surgery Post Acute Care 03/16/23 Core Winder Relationship Specialty Start Date End Date Helen Chapa MD [address] [place] [address] PCP - General Internal Medicine 08/26/19 Hedy Owens RN Print Developer Automatic Internal Medicine 11/18/21 Marco Hernandez MD [address] [address] Home Care Provider Orthopedics 03/16/23 Christiano Loya PA-C [address] [place] [address] 68022 Referring Orthopedics 03/16/23 Core Winder Relationship Specialty Start Date End Date Helen Chapa MD [address] [place] [address] PCP - General Internal Medicine 08/26/19 Hedy Owens, cone cleanerPrint Developer Automatic Internal Medicine 11/18/21 Marco Hernandez MD [address] [address] Home Care Provider Orthopedics 03/16/23 Christiano Loya PA-C [address] [place] [address] 62408 Referring Orthopedics 03/16/23 Core Winder Relationship Specialty Start Date End Date Helen Chapa MD [address] [place] [address] 18927 PCP - General Internal Medicine 08/26/19 Hedy Owens, cone cleanerPrint Developer Automatic Internal Medicine 11/18/21 Marco Hernandez MD [address] [place] [address] 37058 Home Care Provider Orthopedics 03/16/23 Christiano Loya PA-C [address] [place] [address] 28204 Referring Orthopedics 03/16/23 Core Winder Relationship Specialty Start Date End Date Helen Chapa MD [address] [place] [address] 40523 PCP - General Internal Medicine 08/26/19 Hedy Owens, cone cleanerPrint Developer Automatic Internal Medicine 11/18/21 Marco Hernandez MD [address] [place] [address] 60258 Home Care Provider Orthopedics 03/16/23 Christiano Loya PA-C [address] [place] [address] 56073 Referring Orthopedics 03/16/23 Core Winder Relationship Specialty Start Date End Date Helen Chapa MD [address] [place] [address] 10177 PCP - General Internal Medicine 08/26/19 Hedy Owens, cone cleanerPrint Developer Automatic Internal Medicine 11/18/21 Marco Hernandez MD [address] [place] [address] 99950 Home Care Provider Orthopedics 03/16/23 Christiano Loya PA-C [address] [place] [address] 42887 Referring Orthopedics 03/16/23 Core Winder Relationship Specialty Start Date End Date Helen Chapa MD [address] [place] [address] PCP - General Internal Medicine 08/26/19 Hedy Owens, cone cleanerPrint Developer Automatic Internal Medicine 11/18/21 Marco Hernandez MD [address] [place] [address] 96647 Home Care Provider Orthopedics 03/16/23 Christiano Loya PA-C [address] [place] [address] 72771 Referring Orthopedics 03/16/23 Core Winder Relationship Specialty Start Date End Date Helen Chapa MD [address] [place] [address] PCP - General Internal Medicine 08/26/19 Hedy Owens, cone cleanerPrint Developer Automatic Internal Medicine 11/18/21 Marco Hernandez MD [address] [place] [address] 40891 Home Care Provider Orthopedics 03/16/23 Christiano Loya PA-C [address] [place] [address] 72214 Referring Orthopedics 03/16/23 Core Winder Relationship Specialty Start Date End Date Helen Chapa MD [address] [place] [address] PCP - General Internal Medicine 08/26/19 Hedy Owens, cone cleanerPrint Developer Automatic Internal Medicine 11/18/21 Core Winder Relationship Specialty Start Date End Date Helen Chapa MD [address] [place] [address] PCP - General Internal Medicine 08/26/19 Hedy Owens, cone cleanerPrint Developer Automatic Internal Medicine 11/18/21 Marco Hernandez MD [address] [place] [address] 60662 Home Care Provider Orthopedics 03/16/23 Christiano Loya PA-C [address] [place] [address] 82174 Referring Orthopedics 03/16/23 Core Winder Relationship Specialty Start Date End Date Helen Chapa MD [facility] [place] [address] PCP - General Internal Medicine 08/26/19 Hedy Owens, cone cleanerPrint Developer Automatic Internal Medicine 11/18/21 Marco Hernandez MD [address] [place] [address] 99705 Home Care Provider Orthopedics 03/16/23 Christiano Loya PA-C [address] [place] [address] 14573 Referring Orthopedics 03/16/23 Leonor Funes, PT [address] [place] [address] Rn Plastic Surgery Post Acute Care 03/16/23 04/05/23 Core Winder Relationship Specialty Start Date End Date Helen Chapa MD [address] [place], [place] 937041 PCP - General Internal Medicine 08/26/19 Hedy Owens, cone cleanerPrint Developer Automatic Internal Medicine 11/18/21 Core Winder Relationship Specialty Start Date End Date Helen Chapa MD [address] [place] [address] PCP - General Internal Medicine 08/26/19 Hedy Owens, cone cleanerPrint Developer Automatic Internal Medicine 11/18/21 Marco Hernandez MD [address] [place] [address] [phone] Home Care Provider Orthopedics 03/16/23 Christiano Loya PA-C [address] [place] [address] 56807 Referring Orthopedics 03/16/23 Core Winder Relationship Specialty Start Date End Date Helen Chapa MD [address] [place] [address] 22357 PCP - General Internal Medicine 08/26/19 Hedy Owens, cone cleanerPrint Developer Automatic Internal Medicine 11/18/21 Marco Hernandez MD [address] [place] [address] 30773 Home Care Provider Orthopedics 03/16/23 Christiano Loya PA-C [address] [place] [address] 77777 Referring Orthopedics 03/16/23 Core Winder Relationship Specialty Start Date End Date Helen Chapa MD [address] [place] [address] PCP - General Internal Medicine 08/26/19 Hedy Owens, cone cleanerPrint Developer Automatic Internal Medicine 11/18/21 Marco Hernandez MD [address] [place] [address] 52924 Home Care Provider Orthopedics 03/16/23 Christiano Loya PA-C [address] [place] [address] 02466 Referring Orthopedics 03/16/23 Core Winder Relationship Specialty Start Date End Date Helen Chapa MD [address] [place] [address] 92626 PCP - General Internal Medicine 08/26/19 Hedy Owens, cone cleanerPrint Developer Automatic Internal Medicine 11/18/21 Marco Hernandez MD [address] [place] [address] 70701 Home Care Provider Orthopedics 03/16/23 Christiano Loya PA-C [address] [place] [address] 77198 Referring Orthopedics 03/16/23 Team Status: Inactive Member Role Status Dates Dr. Helen Chapa MD Primary Care Provider, Referring Provider Active Payton Bruno [employer], [employer] Attending Provider Active Team Status: Inactive Member Role Status Dates Dr. Helen Chapa MD Primary Care Provider Active Bahman Gannon [employer], [employer] Attending Provider, Referring Pro vider Active Core Winder Relationship Specialty Start Date End Date Helen Chapa MD [address] [place] [address] PCP - General Internal Medicine 08/26/19 Hedy Owens, cone cleanerPrint Developer Automatic Internal Medicine 11/18/21 Marco Hernandez MD [address] [place] [address] 28430 Home Care Provider Orthopedics 03/16/23 Christiano Loya PA-C [address] [place] [address] 03458 Referring Orthopedics 03/16/23 Core Winder Relationship Specialty Start Date End Date Helen Chapa MD [address] [place] [address] PCP - General Internal Medicine 08/26/19 Hedy Owens, cone cleanerPrint Developer Automatic Internal Medicine 11/18/21 Marco Hernandez MD [address] [place] [address] 72049 Home Care Provider Orthopedics 03/16/23 Christiano Loya PA-C [address] [place] [address] 32791 Referring Orthopedics 03/16/23 Team Status: Active Member Role Status Dates Dr. Helen Chapa MD Primary Care Provider Active Payton Bruno [employer], [employer] Referring Provider, Other Provi shelley Active Dr. Paolo Fitch MD Attending Provider Active Team Status: Active Member Role Status Dates Dr. Helen Chapa MD Primary Care Provider Active Payton Bruno [employer], [employer] Attending Provider Active Team Status: Inactive Member Role Status Dates Dr. Helen Chapa MD Primary Care Provider Active Payton Bruno [employer], [employer] Attending Provider, Referring P rokeyshawn Active Core Winder Relationship Specialty Start Date End Date Helen Chapa MD [address] [place] [address] PCP - General Internal Medicine 08/26/19 Hedy Owens RN Print Developer Automatic Internal Medicine 11/18/21 Marco Hernandez MD [address] [place] [address] 30596 Home Care Provider Orthopedics 03/16/23 Christiano Loya PA-C [address] [place] [address] 12849 Referring Orthopedics 03/16/23 Core Winder Relationship Specialty Start Date End Date Helen Chapa MD [address] [place] [address] PCP - General Internal Medicine 08/26/19 Marco Hernandez MD [address] [place] [address] 95278 Home Care Provider Orthopedics 03/16/23 Chirstiano Loya PA-C [address] [place] [address] 57309 Referring Orthopedics 03/16/23 Core Winder Relationship Specialty Start Date End Date Helen Chapa MD [address] [place] [address] PCP - General Internal Medicine 08/26/19 Marco Hernandez MD [address] [place] [address] 02941 Home Care Provider Orthopedics 03/16/23 Christiano Loya PA-C [address] [place] [address] 07437 Referring Orthopedics 03/16/23 Core Winder Relationship Specialty Start Date End Date Helen Chapa MD [address] [place] [address] PCP - General Internal Medicine 08/26/19 Marco Hernandez MD [address] [place] [address] 42665 Home Care Provider Orthopedics 03/16/23 Christiano Loya PA-C [address] [place] [address] 64148 Referring Orthopedics 03/16/23 Core Winder Relationship Specialty Start Date End Date Helen Chapa MD [address] [place] [address] PCP - General Internal Medicine 08/26/19 Marco Hernandez MD [address] [place] [address] 04621 Home Care Provider Orthopedics 03/16/23 Christiano Loya PA-C [address] [place] [address] 03470 Referring Orthopedics 03/16/23 Core Winder Relationship Specialty Start Date End Date Helen Chapa MD [address] [place] [address] PCP - General Internal Medicine 08/26/19 Marco Hernandez MD [address] [place] [address] 08505 Home Care Provider Orthopedics 03/16/23 Christiano Loya PA-C [address] [place] [address] 87878 Referring Orthopedics 03/16/23 Core Winder Relationship Specialty Start Date End Date Helen Chapa MD [address] [place] [address] PCP - General Internal Medicine 08/26/19 Marco Hernandez MD [address] [place] [address] 34056 Home Care Provider Orthopedics 03/16/23 Christiano Loya PA-C [address] [place] [address] 54213 Referring Orthopedics 03/16/23 Core Winder Relationship Specialty Start Date End Date Helen Chapa MD [address] [place] [address] PCP - General Internal Medicine 08/26/19 Marco Hernandez MD [address] [place] [address] 28972 Home Care Provider Orthopedics 03/16/23 Christiano Loya PA-C [address] [place] [address] 95957 Referring Orthopedics 03/16/23 Core Winder Relationship Specialty Start Date End Date Helen Chapa MD [address] [place] [address] PCP - General Internal Medicine 08/26/19 Marco Hernandez MD [address] [place] [address] 33936 Home Care Provider Orthopedics 03/16/23 Christiano Loya PA-C [address] [place] [address] 18997 Referring Orthopedics 03/16/23 Core Winder Relationship Specialty Start Date End Date Helen Chapa MD [address] [place] [address] PCP - General Internal Medicine 08/26/19 Core Winder Relationship Specialty Start Date End Date Helen Chapa MD [address] [place] [address] PCP - General Internal Medicine 08/26/19 Core Winder Relationship Specialty Start Date End Date Helen Chapa MD [address] [place] [address] PCP - General Internal Medicine 08/26/19 Core Winder Relationship Specialty Start Date End Date Helen Chapa MD [address] [place] [address] PCP - General Internal Medicine 08/26/19 Marco Hernandez MD [address] [place] [address] 35456 Home Care Provider Orthopedics 03/16/23 Christiano Loya PA-C [address] [place] [address] 14332 Referring Orthopedics 03/16/23 Core Winder Relationship Specialty Start Date End Date Helen Chapa MD [address] [place] [address] PCP - General Internal Medicine 08/26/19 Marco Hernandez MD [address] [place] [address] 05750 Home Care Provider Orthopedics 03/16/23 Christiano Loya PA-C [address] [place] [address] 50027 Referring Orthopedics 03/16/23 Core Winder Relationship Specialty Start Date End Date Helen Chapa MD [address] [place] [address] PCP - General Internal Medicine 08/26/19 Marco Hernandez MD [address] [place] [address] 54002 Home Care Provider Orthopedics 03/16/23 Christiano Loya PA-C [address] [place] [address] Referring Orthopedics 03/16/23 Karen Mejia PA-C [address] [place], [place] [phone] Lead Refiner Family Medicine 07/21/24 Екатерина Escalante APRN.MICROGRINDER OPERATOR [address] [place] [address] Lead Refiner Internal Medicine 07/21/24 Suzy Calix PA-C [address] [place] [address] [facility] [place] 07/21/24 Core Winder Relationship Specialty Start Date End Date Helen Chapa MD [address] [place] [address] PCP - General Internal Medicine 08/26/19 Marco Hernandez MD [address] [phone] Home Care Provider Orthopedics 03/16/23 Christiano Loya PA-C [address] [place], [place] [phone] Referring Orthopedics 03/16/23 Karen Mejia PA-C [address] [place] [address] Lead Ref[facility] Family [facility] 07/21/24 Екатерина Escalante APRN.MICROGRINDER OPERATOR [address] [place] [address] Lead Refiner Internal Medicine 07/21/24 Suzy Calix PA-C [address] [place] [address] Lead Ref[facility] Family Medicine 07/21/24 Core Winder Relationship Specialty Start Date End Date Helen Chapa MD [address] [place] [address] PCP - General Internal Medicine 08/26/19 Marco Hernandez MD [address] [place] [address] 85795 Home Care Provider Orthopedics 03/16/23 Christiano Loya PA-C [address] [place] [address] [phone] Referring Orthopedics 03/16/23 Karen Mejia PA-C [address] [place] [address] Lead Ref[facility] Family [facility] 07/21/24 Екатерина Escalante APRN.MICROGRINDER OPERATOR [address] [place] [address] Lead Refiner Internal Medicine 07/21/24 Suzy Calix PA-C [address] [place] [address] Lead Ref[facility] Family [facility] 07/21/24 Core Winder Relationship Specialty Start Date End Date Helen Chapa MD [address] [place] [address] PCP - General Internal Medicine 08/26/19 Marco Hernandez MD [address] [place] [address] 77359 Home Care Provider Orthopedics 03/16/23 Christiano Loya PA-C [address] [place] [address] 07055 Referring Orthopedics 03/16/23 Karen Mejia PA-C [address] [place] [address] Lead Ref[facility] Family [facility] 07/21/24 Екатерина Escalante APRN.MICROGRINDER OPERATOR [address] [place] [address] Lead Refiner Internal Medicine 07/21/24 Suzy Calix PA-C [address] [place] [address] Lead Refiner Family [facility] 07/21/24 Core Winder Relationship Specialty Start Date End Date Hleen Chapa MD [facility] [place] [address] PCP - General Internal Medicine 08/26/19 Marco Hernandez MD [address] [place] [address] [phone] Home Care Provider Orthopedics 03/16/23 Christiano Loya PA-C [address] [place] [address] [phone] Referring Orthopedics 03/16/23 Karen Mejia PA-C [address] [place] [address]133 Lead Refiner Family Medicine 07/21/24 Екатерина Escalante APRN.MICROGRINDER OPERATOR [address] [place] [address] Lead Refiner Internal Medicine 07/21/24 Suzy Calix PA-C [address] [place] [address] Lead Refiner Family Medicine 07/21/24 Core Winder Relationship Specialty Start Date End Date Helen Chapa MD [address] [place] [address] PCP - General Internal Medicine 08/26/19 Marco Hernandez MD [address] [place] [address] 78687 Home Care Provider Orthopedics 03/16/23 Christiano Loya PA-C [address] [place] [address] [phone] Referring Orthopedics 03/16/23 Екатерина Escalante APRN.MICROGRINDER OPERATOR [address] [place] [address] 81764 Lead Refiner Internal Medicine 07/21/24 Core Winder Relationship Specialty Start Date End Date Helen Chapa MD [facility] [place] [address] PCP - General Internal Medicine 08/26/19 Marco Hernandez MD [address] [place] [address] 85231 Home Care Provider Orthopedics 03/16/23 Christiano Loya PA-C [address] [place] [address] 91923 Referring Orthopedics 03/16/23 Екатерина Escalante APRN.MICROGRINDER OPERATOR [address] [place] [address] Lead Refiner Internal Medicine 07/21/24 Core Winder Relationship Specialty Start Date End Date Helen Chapa MD [address] [place] [address] PCP - General Internal Medicine 08/26/19 Marco Hernandez MD [address] [place] [address] 02073 Home Care Provider Orthopedics 03/16/23 Christiano Loya PA-C [address] [place] [address] 74241 Referring Orthopedics 03/16/23 Екатерина Escalante APRN.MICROGRINDER OPERATOR [address] [place] [address] Lead Refiner Internal Medicine 07/21/24 Core Winder Relationship Specialty Start Date End Date Helen Chapa MD [facility] [place] [address] PCP - General Internal Medicine 08/26/19 Marco Hernandez MD [address] [place] [address] 77275 Home Care Provider Orthopedics 03/16/23 Christiano Loya PA-C [address] [place] [address] 96752 Referring Orthopedics 03/16/23 Екатерина Escalante APRN.MICROGRINDER OPERATOR [address] [place] [address] Lead Refiner Internal Medicine 07/21/24 Core Winder Relationship Specialty Start Date End Date Helen Chapa MD [address] [place] [address] PCP - General Internal Medicine 08/26/19 Marco Hernandez MD [address] [place] [address] 75198 Home Care Provider Orthopedics 03/16/23 Christiano Loya PA-C [address] [place] [address] 99171 Referring Orthopedics 03/16/23 Екатерина Escalante APRN.MICROGRINDER OPERATOR [address] [place] [address] Lead Refiner Internal Medicine 07/21/24 Core Winder Relationship Specialty Start Date End Date Helen Chapa MD [address] [place] [address] PCP - General Internal Medicine 08/26/19 Marco Hernandez MD [address] [place] [address] 45633 Home Care Provider Orthopedics 03/16/23 Christiano Loya PA-C [address] [place] [address] [phone] Referring Orthopedics 03/16/23 Екатерина Escalante APRN.MICROGRINDER OPERATOR [address] [place] [address] Lead Refiner Internal Medicine 07/21/24 Core Winder Relationship Specialty Start Date End Date Helen Chapa MD [address] [place] [address] PCP - General Internal Medicine 08/26/19 Marco Hernandez MD [address] [place] [address] 90626 Home Care Provider Orthopedics 03/16/23 Christiano Loya PA-C [address] [place] [address] [place] [address] Referring Orthopedics 03/16/23 Екатерина Escalante APRN.MICROGRINDER OPERATOR [address] [place] [address] Lead Refiner Internal Medicine 07/21/24 Core Winder Relationship Specialty Start Date End Date Helen Chapa MD [address] [place] [address] PCP - General Internal Medicine 08/26/19 Marco Hernandez MD [address] [place] [address] 89582 Home Care Provider Orthopedics 03/16/23 Christiano Loya PA-C [address] [place] [address] 21018 Referring Orthopedics 03/16/23 Екатерина Escalante APRN.MICROGRINDER OPERATOR [address] [place] [address] Lead Refiner Internal Medicine 07/21/24 Core Winder Relationship Specialty Start Date End Date Helen Chapa MD [address] [place] [address] PCP - General Internal Medicine 08/26/19 Marco Hernandez MD [address] [place] [address] 91185 Home Care Provider Orthopedics 03/16/23 Christiano Loya PA-C [address] [place] [address] 35561 Referring Orthopedics 03/16/23 Екатерина Escalante APRN.MICROGRINDER OPERATOR [address] [place] [address] Lead Refiner Internal Medicine 07/21/24 Core Winder Relationship Specialty Start Date End Date Helen Chapa MD [address] [place] [address] PCP - General Internal Medicine 08/26/19 Marco Hernandez MD [address] [place] [address] 65199 Home Care Provider Orthopedics 03/16/23 Christiano Loya PA-C [address] [place] [address] [phone] Referring Orthopedics 03/16/23 Екатерина Escalante APRN.MICROGRINDER OPERATOR [address] [place] [address] Lead Refiner Internal Medicine 07/21/24 Core Winder Relationship Specialty Start Date End Date Helen Chapa MD [address] [place] [address] PCP - General Internal Medicine 08/26/19 Marco Hernandez MD [address] [place] [address] 56561 Home Care Provider Orthopedics 03/16/23 Christiano Loya PA-C [address] [place] [address] 00357 Referring Orthopedics 03/16/23 Екатерина Escalante APRN.MICROGRINDER OPERATOR [address] [place] [address] Lead Refiner Internal Medicine 07/21/24 Core Winder Relationship Specialty Start Date End Date Helen Chapa MD [address] [place] [address] PCP - General Internal Medicine 08/26/19 Marco Hernandez MD [address] [place] [address] 86444 Home Care Provider Orthopedics 03/16/23 Christiano Loya PA-C [address] [place] [address] 98564 Referring Orthopedics 03/16/23 Екатерина Escalante APRN.MICROGRINDER OPERATOR [facility] [place] [address] Lead Refiner Internal Medicine 07/21/24 Core Winder Relationship Specialty Start Date End Date Helen Chapa MD [address] [place] [address] 80511 PCP - General Internal Medicine 08/26/19 Marco Hernandez MD [address] [place] [address] 57843 Home Care Provider Orthopedics 03/16/23 Christiano Loya PA-C [address] [place] [address] 13330 Referring Orthopedics 03/16/23 Екатерина Escalante APRN.MICROGRINDER OPERATOR [address] [place] [address] Lead Refiner Internal Medicine 07/21/24 Core Winder Relationship Specialty Start Date End Date Helen Chapa MD [address] [place] [address] PCP - General Internal Medicine 08/26/19 Marco Hernandez MD [address] [place] [address] 56066 Home Care Provider Orthopedics 03/16/23 Christiano Loya PA-C [address] [place] [address] 13112 Referring Orthopedics 03/16/23 Екатерина Escalante APRN.MICROGRINDER OPERATOR [address] [place] [address] Lead Refiner Internal Medicine 07/21/24 Core Winder Relationship Specialty Start Date End Date Helen Chapa MD [address] [place] [address] PCP - General Internal Medicine 08/26/19 Marco Hernandez MD [address] [place] [address] 81584 Home Care Provider Orthopedics 03/16/23 Christiano Loya PA-C [address] [place] [address] [phone] Referring Orthopedics 03/16/23 Екатерина Escalante APRN.MICROGRINDER OPERATOR [address] [place] [address] Lead Refiner Internal Medicine 07/21/24 Core Winder Relationship Specialty Start Date End Date Helen Chapa MD [address] [place] [address] PCP - General Internal Medicine 08/26/19 Marco Hernandez MD [address] [place] [id number] Home Care Provider Orthopedics 03/16/23 Christiano Loya PA-C [address] [place] [phone] Referring Orthopedics 03/16/23 Екатерина Escalante APRN.MICROGRINDER OPERATOR [address] [place] [address] Lead Refiner Internal Medicine 07/21/24 Core Winder Relationship Specialty Start Date End Date Helen Chapa MD [address] [place] [address] PCP - General Internal Medicine 08/26/19 Marco Hernandez MD [address] [place] [id number] Home Care Provider Orthopedics 03/16/23 Christiano Loya PA-C [address] [place] [phone] Referring Orthopedics 03/16/23 Екатерина Escalante APRN.MICROGRINDER OPERATOR [address] [place] [address] Lead Refiner Internal Medicine 07/21/24 Core Winder Relationship Specialty Start Date End Date Helen Chapa MD [address] [place] [address] PCP - General Internal Medicine 08/26/19 Marco Hernandez MD [address] [place] [id number] Home Care Provider Orthopedics 03/16/23 Christiano Loya PA-C [address] [place] [phone] Referring Orthopedics 03/16/23 Екатерина Escalante APRN.MICROGRINDER OPERATOR [address] [place] [address] Lead Refiner Internal Medicine 07/21/24 Core Winder Relationship Specialty Start Date End Date Helen Chapa MD [address] [place] [address] PCP - General Internal Medicine 08/26/19 Marco Hernandez MD [address] [place] [phone] Home Care Provider Orthopedics 03/16/23 Christiano Loya PA-C [address] [place] [phone] Referring Orthopedics 03/16/23 Екатерина Escalante APRN.MICROGRINDER OPERATOR [address] [place] [address] Lead Refiner Internal Medicine 07/21/24 Core Winder Relationship Specialty Start Date End Date Helen Chapa MD [address] [place] [address] PCP - General Internal Medicine 08/26/19 Marco Hernandez MD [address] [place] [phone] Home Care Provider Orthopedics 03/16/23 Christiano Loya PA-C [address] [place] [phone] Referring Orthopedics 03/16/23 Екатерина Escalante APRN.MICROGRINDER OPERATOR [address] [place] [address] Lead Refiner Internal Medicine 07/21/24 Goals (unrecognized section and content) Goals may be documented in a n alternate sectionGoals may be documented in an alternate sectionGoals may be documented in an alternate sectionGoals may be documented in an alternate sectionGoals may be documented in an alternate section FOR RECORDS PERTAINING TO PATIENTS WHO ARE OR HAVE BEEN ENROLLED IN A CHEMICAL DEPENDENCY/SUBSTANCEABUSE PROGRAM, SOME INFORMATION MAY BE OMITTED. This clinical summary was aggregated from multiple sources. Caution should be exercised in using it in the provision of clinical care. This summary normalizes information from multiple sources, and as a consequence, information in this document may materially change the coding, format and clinical context of patient data. In addition, data may be omitted in some cases. CLINICAL DECISIONS SHOULD BE BASED ON THE PRIMARY CLINICAL RECORDS. [facility] [employer] [facility]. provides no warranty or guarantee of the accuracy or completeness of information in this document.
--- OUTSIDE RECORDS SUMMARY | 2025-07-09 06:50 | XMS RPT_ITS | CCD ---
Author Organization [facility] CliniSyla Care Team Providers Care Core Shaper Name Role Phone HOLLIE STANFORD Attending Unavailable [...] Provider Dr. Helen Chapa Referring Provider Damion PIN DRAFTER OPERATOR, PIN DRAFTER OPERATOR-C Payton Attending Provider Dr. Helen Chapa Primary Care Provider Dr. Helen Chapa Referring Provider Damion PIN DRAFTER OPERATOR, PIN DRAFTER OPERATOR-C Payton Attending Provider Damion PIN DRAFTER OPERATOR, PIN DRAFTER OPERATOR-C Payton Referring Provider Damion PIN DRAFTER OPERATOR, PIN DRAFTER OPERATOR-C Payton Other Provider Dr. Paolo Fitch Attending Provider Helen Chapa MD Primary Care Provider Karen Mejia PA-C Unavailable Older PAPER TESTER.RUBY ON RAILS DEVELOPER, Екатерина Unavailable Suzy Calix PA-C Unavailable Ganta, Helen Primary Care Unavailable Damion PIN DRAFTER OPERATOR, Payton Attending Unavailable Ganta, Helen Referring Unavailable Damion PIN DRAFTER OPERATOR, Payton Attending Unavailable Ganta, Helen Referring Unavailable [...] Unavailable GANTA, HELEN Primary Care Unavailable VETOVITZ, LEYT Referring Unavailable GANTA, HELEN Primary Care Unavailable DOUGIE ALTAGRACIA Attending Unavailable GANTA, HELEN Primary Care Unavailable GANTA, HELEN Primary Care Unavailable ANILARADHA BAY Attending Unavailable Allergies Allergy Classification Reported Allergen(s) Allergy Type Date of Onset Reaction(s) Facility Bacitracin (1 source) Bacitracin Drug Allergy 9 Hives [facility] MITE EXTRACT (1 source) MITE EXTRACT Drug Allergy 0 [facility] Mold Extract (1 source) Mold Extract Drug Allergy 0 Other (See Comments) [facility] Opioid Agonists (1 source) Codeine Drug Allergy 9 Nausea And Vomiting [facility] red maple pollen extract (1 source) red maple pollen extract Drug Allergy 1 Shortness Of Breath [facility] (20 sources) Bacitracin; Translations: [BACITRACIN (BULK)] Drug Allergy 9 Hives [facility] (20 sources) Codeine; Translations: [CODEINE] Drug Allergy 9 Unknown [facility] (20 sources) House dust mite; Translations: [DUST MITES] Allergy to substance 0 Other: See Comments [facility] Work Phone: (20 sources) Mold Extract; Translations: [MOLD] Drug Allergy 0 Unknown [facility] Work Phone: (20 sources) red maple pollen extract; Translations: [TREE POLLEN-RED MAPLE] Drug Allergy 1 Shortness of Breath [facility] (20 sources) Sulfonamides (Antibiotic); Translations: [SULFA (SULFONAMIDE ANTIBIOTICS)] Drug Allergy 9 Other: See Comments [facility] (20 sources) Gentamicin; Translations: [GENTAMICIN] Drug Allergy 2 Swelling [facility] Work Phone: (20 sources) sulfabenzamide; Translations: [SULFABENZAMIDE] Drug Allergy 2 Hives [facility] Work Phone: (5 sources) Sulfonamides (Antibiotic) Allergy to substance 2 Unknown [facility] (6 sources) Tree and shrub pollen; Translations: [tree and shrub pollen] Allergy to substance 2 DIFFICULTY BREATHING [facility] (6 sources) house dust mite; Translations: [house dust mite] Allergy to substance 2 unknown [facility] (1 source) Bacitracin Drug Allergy 5 [facility] (1 source) Codeine Drug Allergy 5 [facility] (1 source) Mold Extract Drug Allergy 5 [facility] (1 source) Sulfonamides (Antibiotic) Drug allergy (disorder) 5 [facility] NEGATED: Highlighted row has been [...] 04-22-2022 aspirin 81 mg cap Take by [facility]. 0 04/22/2022 Discontinued Comment on above: Take [...] Comment on above: Take 1 tablet by [facility] once daily. take 1 tablet by [facility] once daily Bifidobacterium Infantis (20 sources) [...] enoxaparin (LOVENOX) injection 40 mg estrogens, conjugated (mcc) 0.625 mg/ml vaginal cream (20 sources) Estrogen [...] Comment on above: Take 1 tablet by [facility] one time only for 1 dose. [...] Take 1 tablet by jhonatan once daily. Dnxbyqbv-Vbw-Dbfa-F a-Lutein (Centrum Silver Women) 8 mg iron-400 mcg-300 mcg tablet (3 sources) Start: 09-28-2021 take 1 tablet by mouth once daily Btwvvxjz-Hft-Dnjn-F a-Lutein (Centrum Silver Women) 8 mg iron-400 mcg-300 mcg tablet Active 1 TABLET PO DAILY September 28, 2021 12:00am Start: 09-28-2021 take 1 tablet by jhonatan once daily Ocvsfluu-Nmi-Ypfp-Fa-Lutein (Centrum Zohra nupur Women) 8 mg iron-400 mcg-300 mcg tablet Active 1 TABLET PO DAILY September 28, 2021 1:00am Azzpkorp-Wie-Wuti-Fa-Vit K-Lut (Centrum Silver Women) 8 mg iron-400 mcg-300 mcg tablet (2 sources) Start: 09-28-2021 take 1 tablet by mouth once daily Cxyfunlw-Zaw-Vycs-Fa-Vit K-Lut (Centrum Silver Women) 8 mg iron-400 mcg-300 mcg tablet Active 1 TABLET PO DAILY September 28, 2021 1:00am Start: 09-28-2021 take 1 tablet by [facility] once daily Kuxzwmmo-Ubm-Vqdh-Fa-Vit K-Lut (Centrum Silver Women) 8 mg iron-400 [...] four times daily. Take 1 tablet by [facility] four times daily. Take 2 tablets by [facility] three times daily. Take 2 tablets by [facility] three times a day. Semaglutide (5 sources) [...] on above: Take 2 tablets by [facility] every 6 hours as needed for pain. [...] Comment on above: Take 1 capsule by [facility] twice daily. Take 1 capsule by [facility] twice daily as needed for constipation. erythromycin [...] Comment on above: [facility]. furosemide 20 mg oral [...] ASPIRIN ORAL Indications: Coronary artery disease involving [place] heart without angina pectoris, unspecified vessel or lesion type Take 81 mg by mouth once daily. 03/16/2023 Discontinued End: 03-16-2023 take 81 mg by mouth once daily LOW-DOSE ASPIRIN ORAL Indications: Coronary artery disease involving [place] heart without angina pectoris, unspecified vessel or lesion type Take 81 mg by mouth once daily. 0 03/16/2023 Discontinued take 81 mg by mouth once daily L OW-DOSE ASPIRIN ORAL Indications: Coronary artery disease involving [place] heart without angina pectoris, unspecified vessel or [...] mg tablet Indications: Coronary artery disease involving [place] heart without angina pectoris, unspecified vessel or [...] Comment on above: Take 1 tablet by [facility] every 8 hours as needed for pain. Take 1-2 tablets by mouth every 6 hours as needed for pain. polyethylene glycol 3350 45174 mg powder for oral solution (20 sources) Osmotic Laxative Start: 03-16-2023 End: 03-30-2023 polyethylene glycol 3350 (MIRALAX) 17 gram/dose powder Take 17 g by mouth once daily as needed for constipation for up to 10 days. Dissolve dose in 4 - 8 ounces of liquid and take as directed. 238 g 0 03/16/2023 03/30/2023 Start: 05-06-2022 End: 08-17-2022 polyethylene glycol 3350 (MA RALAX) 17 gram/dose powder Take 17 g [...] on above: Take 1 capsule by [facility] twice daily for 90 days. Take one [...] at bedtime. 30 capsule 01/31/2020 04/22/2021 Discontinued Ubidecarenone-Grinnell 3-Vit E (5 sources) Start: 1 End: 2 take 1 capsule by mouth once daily Ubidecarenone-Grinnell 3-Vit E Discontinued 1 CAP PO DAILY January 31, 2021 11:00pm September 28, 2021 10:40am Start: 02-01-2021 End: 09-28-2021 take 1 capsule by mouth once daily Ubidecarenone-Grinnell 3-Vit E Discontinued 1 CAP PO DAILY [...] Coronary atherosclerosis; Translations: [Atherosclerotic heart disease of [place] coronary artery without angina pectoris] Onset: 03-01-2021 [...] Test Name Value Interpretation Reference Range Facility [facility] ([id number]) 1945 F Date Time Provider Department 06/04/25 [...] a diflucan rx to be sent to [facility] pharmacy. Pending rx needs completed. Please advise [...] amLODIPine (NORVASC (more content not included)... Normal [facility] CNOVon 06-02-2025 CNOV Office Visit (WOUCA) KEMAL CANTU ([id number]) 1945 F Date Time Provider Department 06/02/25 12:00 PM ALEXANDRIA PATTON During your visit today, we recorded the following information about you: Temperature Pulse Respiration Blood pressure 97.2 degrees 70/minute 16/minute 152/80 Weight 126.5 kg Alexandria Patton APRN.RUBY ON RAILS DEVELOPER 06/02/2025 12:17 PM Signed [facility] [...] resolves to avoid pain. and Recording using Ta[employer] software for draft documentation of the visit was discussed with the patient/authorized automobile sales representative; all questions welcomed and answered. Patient/authorized automobile sales representative agreed to proceed History and Record [...] - montelu (more content not included)... Normal [facility] CNOVon 05-29-2025 CNOV Office Visit (INTMWS ) ALONDRAKEMAL ([id number]) 1945 F Date Time Provider Department 05/29/25 [...] Podiatry: Dr. Mims Cardiology: Dr. Fitch Optometry: [facility] Neurology: Dr. Blevins Medical/Family history review [...] review all the medicines you take, even gzec-rpj-rhidjdv medicines. As you get older, the way [...] glare. Have (more content not included)... Normal [facility] [id number] 05-27-2025 [id number] O ID: [id number] Author: THAI ADAME PT Service: ? Author Type: Physical Therapist Type: [id number] Filed: 05/27/2025 12:30 Note Text: [facility] Physical Therapy Plan of Care Certification Patient Name: Kemal Cantu : 1945 CC #: [id number] Date: 05/27/2025 To: Lety Haywood PA-C From Therapist: Thai Adame PT RE: Patient Certification/ Recertification Your review, approval and electronic signature are required in order to comply with Payor: [facility] MEDICARE / Plan: [facility] MEDICARE ADVANTAGE PPO / Product Type: PPO [...] Planned: 8 Planned Treatment Interventions: Neuromuscular re-education (61492), Therapeutic exercise (40265), Manual therapy (61188), Therapeutic activities (44063), Self-half-way management (37034), Gait Training (55476), Patient/Family/Caregi nupur Education, Body Mechanics Training PLAN [...] the treatment plan for Kemal Cantu, CCF# [id number] for the period of 05/27/25 -- 08/27/25, established on 05/27/2025. Signature certifies the need for therapy services. Normal [facility] CNTHERAPYon 05-27-2025 CNTHERAPY OT/PT/Speech Visit (PTWS) KEMAL CANTU ([id number]) 1945 F Date Time Provider Department 05/27/25 11:30 AM THAI ADAME PTWS Date Time Provider Department Center 05/27/2025 11:30 AM [id number], SEAN PTWS [place] Reason for Visit: [...] mouth once daily. Twice a day Normal [facility] Ferritin SerPl-ncon 2024 Ferritin [Mass/Vol] 110.0 ng/mL Normal 14.7-205.1 [facility] Comment on above: Order Comment: Speci men Type: BLOOD SPECIMENOrdering Facility: [facility] Address: [address] [place] [address] Performed By: #### 5 0190-8, 6-4 ####[facility] LABCLIA [id number] [place] [address] [place] Iron and Iron binding capaci panel 05-26-2025 Iron [Mass/Vol] 55 ug/dL Normal 41-186 [facility] Comment on above: Order Comment: Speci men Type: BLOOD SPECIMENOrdering Facility: [facility] Address: [address] [place] [address] Performed By: #### 5 0190-8, 6-4 ####[facility] LABCLIA [id number] [place] [address] [place] Iron binding capacity [Mass/Vol] 292 ug/dL Normal 232-386 [facility] Comment on above: Order Comment: Speci men Type: BLOOD SPECIMENOrdering Facility: [facility] Address: [address] [place] [address] Performed By: #### 5 0190-8, 6-4 ####[facility] LABCLIA [id number] [place] [address] [place] Iron/TIBC [Molar ratio] 18.8 % Normal 15.0-57.0 [facility] Comment on above: Order Comment: Speci men Type: BLOOD SPECIMENOrdering Facility: [facility] Address: [address] [place] [address] Performed By: #### 5 0190-8, 2276-4 ####[facility] LABCLIA [id number] IANJey RODRIGES [id number] [place] [address] OF [place] CNOVon 05-12-2025 CNOV Office Visit (ORTHWS ) KEMAL CANTU ([id number]) 1945 F Date Time Provider Department 05/12/25 [...] PA-C Department of Orthopaedics Orthopaedics [address] [facility] [address] Dept: [phone] Dept May 12, 2025 CHIEF COMPLAINT: Follow [...] changes, mos (more content not included)... Normal [facility] XR HIP 3V PELV+ AP/LAT RTon 05-12-2025 [...] as discussed under Results portion of report. Museum Educator: CHAR Transcribe Date/Time: May 14 2025 3:08P Dictated by : DEWAYNE HADDAD, This examination was interpreted and the report reviewed and electronically signed by: DEWAYNE HADDAD DO on May 14 2025 3:10PM EST [id number] Normal [facility] XR LUMBAR 3V AP/LAT/L5-S1on 05-12-2025 XR LUMBAR [...] are seen. IMPRESSION: Degenerative changes as discussed Museum Educator: CHAR Transcribe Date/Time: May 14 2025 3:10P Dictated by : DEWAYNE HADDAD DO This examination was interpreted and the report reviewed and electronically signed by: DEWAYNE HADDAD DO on May 14 2025 3:10PM EST [id number] Normal [facility] CNOVon 04-23-2025 CNOV Office Visit (MARVINWST ) KEMAL CANTU ([id number]) 1945 F Date Time Provider Department 04/23/25 10:00 AM ALTAGRACIA CONSTANTINO During your visit today, we recorded the following information about you: Pulse Respiration Blood pressure Weight 63/minute 16/minute 156/68 124.7 kg Altagracia Constantino APRN.BILL 04/23/2025 10:28 AM Signed [facility] Follow up/ Established patient visit Recording using ambient [employer] software for draft documentation of the visit was discussed with the patient/authorized automobile sales representative; all questions welcomed and answered. Patient/authorized automobile sales representative agreed to proceed Assessment/Plan from last [...] - 5.6 (more content not included)... Normal [facility] CNPNon 04-23-2025 CNPN Telephone (SLEWST) KEMAL CANTU ([id number]) 1945 F Date Time Provider Department 04/23/25 ALTAGRACIA CONSTANTINO During your visit today, we recorded the following information about you: Carol Gregory LPN 04/23/2025 11:59 AM Signed Started PA on Cover My Meds. For Horizant 300 mg ER Tabs. EARNEST Hollis Barbara, LPN 04/24/2025 2:35 PM Signed Answered [...] with neurog (more content not included)... Normal [facility] ALBUMIN/CREATININE RATIO, UR INEon 02-24-2025 Albumin DL <= 20 mg/L (U) [Mass/Vol] mg/L mg/L [facility] Albumin/Creatinine (U) [Mass ratio] mg/g NINF - 30 mg/g [facility] Comment on above: Adult Male and [...] [Mass/Vol] 87.6 mg/dL 20.0 - 300.0 mg/dL [facility] Albumin DL <= 20 mg/L (U) [Mass/Vol] mg/dL Normal [facility] Comment on above: Order Comment: Speci men Type: URINE SPECIMENOrdering Facility: [facility] Address: [address] [place] [address] Performed By: #### U ACR ####[facility] LABIA [id number] [address] STATES OF [facility] Albumin/Creatinine (U) [Mass ratio] <14 Normal <30 [facility] Comment on above: Order Comment: Speci men Type: URINE SPECIMENOrdering Facility: [facility] Address: [address] [place] [address] Result Comment: Adul t Male and Female Nephrotic Criteria: <30 mg/g is considered normal to mildly increased 30-300 mg/g is considered moderately increased >300 mg/g is considered severely increased KDIGO. (2013). KDIGO 2012 Clinical Practice Guideline for the Evaluation and Management of Chronic Kidney Disease. Official Journal of the International Society of Nephrology, 3(1), 1-150. Performed By: #### U ACR ####[facility] LABCLIA [id number] [place] [address] [place] Creatinine (U) [Mass/Vol] 87.6 mg/dL Normal 20.0-300.0 [facility] Comment on above: Order Comment: Speci men Type: URINE SPECIMENOrdering Facility: [facility] Address: [address] [place] [address] Performed By: #### U ACR ####[facility] LABIA [id number] [place] [address] [place] LUAN BY IFA SCREENon 02-25-20 25 Nuclear Ab Ql (S) Negative Normal Negative [facility] Comment on above: Order Comment: Speci men Type: BLOOD SPECIMENOrdering Facility: [facility] Address: [address] [place] [address] Result Comment: Anti -nuclear antibody test is used as an aid in diagnosis of systemic autoimmune diseases. Where positive and clinically warranted, follow-up using disease-specific testing is recommended. Low positive titers are not uncommon with advanced age, certain chronic infections, and malignancies among others. Test methodology: Indirect fluorescence immunoassay (IFA) using HEp-2 cells. Performed By: #### A NAIFS ####[facility] LABIA [id number] [place] [address] [place] Basic metabolic 2000 panelon 02-24-2025 Anion gap [Moles/Vol] 11 mmol/L Normal 8-15 [facility] Comment on above: Order Comment: Speci men Type: BLOOD SPECIMENOrdering Facility: [facility] Address: [address] [place] [address] Performed By: #### 2 4321-2, 3016-3, 1988-5, 35149-8 ####[facility] LABIA [id number] [place] [address] [place] Calcium [Mass/Vol] 9.9 mg/dL Normal 8.5-10.2 [facility] Comment on above: Order Comment: Speci men Type: BLOOD SPECIMENOrdering Facility: [facility] Address: [address] [place] [address] Performed By: #### 2 4321-2, 3015-10, 1987-12, ####[facility] LABCLIA [id number] [address] [address] [place] Chloride [Moles/Vol] 104 mmol/L Normal 98-107 [facility] Comment on above: Order Comment: Speci men Type: BLOOD SPECIMENOrdering Facility: [facility] Address: [address] [place] [address] Performed By: #### 2 432-2, 3015-10, 1987-12, ####[facility] LABCLIA [id number] [place] [id number] [place] CO2 [Moles/Vol] 28 mmol/L Normal 22-30 [facility] Comment on above: Order Comment: Speci men Type: BLOOD SPECIMENOrdering Facility: [facility] Address: [address] [place] [address] Performed By: #### 2 432-2, 3015-10, 1987-12, ####[facility] LABCLIA [id number] [place] [id number] [place] Creatinine [Mass/Vol] 0.85 mg/dL Normal 0.58-0.96 [facility] Comment on above: Order Comment: Speci men Type: BLOOD SPECIMENOrdering Facility: [facility] Address: [address] [place] [address] Performed By: #### 2 432-2, 3015-10, 1987-12, ####[facility] LABIA [id number] [place] [id number] [place] Creatinine and Glomerular filtration rate.predicted panel (S/P/Bld) 70 mL/min/1.73m??? Normal >=60 [facility] Comment on above: Order Comment: Speci men Type: BLOOD SPECIMENOrdering Facility: [facility] Address: [address] [place] [address] Result Comment: Marli mated Glomerular Filtration Rate [...] Performed By: #### 2 4321-2, 3015-10, 1987-12, ####[facility] LABIA [id number] [address] [address] [place] Glucose [Mass/Vol] 98 mg/dL Normal 74-99 [facility] Comment on above: Order Comment: Margie martin Type: BLOOD SPECIMENOrdering Facility: [facility] Address: [address] [place] [address] Result Comment: The [place] Diabetes Association (ADA) provides guidance for cutoff [...] Standards of Medical Care in Diabetes 2016, [place] [employer] Association. Diabetes Care. 2016.39(Suppl 1). Performed By: #### 2 1-2, 3015-10, 1987-12, ####[facility] LABIA [id number] [address] [address] [place] Potassium [Moles/Vol] 4.9 mmol/L Normal 3.7-5.1 [facility] Comment on above: Order Comment: Margie men Type: BLOOD SPECIMENOrdering Facility: [facility] Address: [address] [place] [address] Performed By: #### 2 4320-2, 3015-10, 1987-12, ####[facility] LABCLIA [id number] [place] [id number] [place] Sodium [Moles/Vol] 143 mmol/L Normal 136-144 [facility] Comment on above: Order Comment: Speci men Type: BLOOD SPECIMENOrdering Facility: [facility] Address: [address] [place] [address] Performed By: #### 2 432-2, 3015-10, 1987-12, ####[facility] LABIA [id number] [place] [address] [place] Urea nitrogen [Mass/Vol] 13 mg/dL Normal 7-21 [facility] Comment on above: Order Comment: Speci men Type: BLOOD SPECIMENOrdering Facility: [facility] Address: [address] [place] [address] Performed By: #### 2 432-2, 3015-10, 1987-12, ####[facility] LABCLIA [id number] [place] [address] [place] C-REACTIVE PROTEINon 025 CRP [Mass/Vol] mg/dL NINF - 0.9 mg/dL [facility] CNOVon 02-24-2025 CNOV Office Visit (INTMWS ) KEMAL CANTU ([id number]) 1945 F Date Time Provider Department 02/24/25 1:00 PM ЕКАТЕРИНА ESCALANTE INTKEO During your visit today, we recorded the following information about you: Pulse Respiration Blood pressure Weight 64/minute 16/minute 132/78 124.7 kg Екатерина Escalante APRN.RUBY ON RAILS DEVELOPER 02/24/2025 4:21 PM Signed CC: Patient presents with: Recheck: 6 month follow up HPI Kemal Cantu is a 79 year old female who presents today for follow up. Recording using [employer] software for draft documentation of the visit was discussed with the patient/authorized automobile sales representative; all questions welcomed and answered. Patient/authorized automobile sales representative agreed to proceed Fatigue: Ongoing with low motivation - Has difficulty sleeping; reports never sleeping well. - Experiences feelings of loneliness; moved to be near grandchildren but has no friends in the area. - Misses the mountains and friends in [place]. - Feels stuck in current living situation and landscape. - Considering building a dowdy house on son's property. - Attends [employer] regularly. - No thoughts of self-harm or [...] PAST SURG (more content not included)... Normal [facility] CRP SerPl-mCncon 02-24-2025 CRP [Mass/Vol] mg/L Normal <0.9 [facility] Comment on above: Order Comment: Speci men Type: BLOOD SPECIMENOrdering Facility: [facility] Address: [address] [place] [address] Performed By: #### 2 4321-2, 3016-3, 1988-5, 45713-0 ####[facility] LABIA [id number] [place] [address] [place] ESR Westergren method (Bld) [Velocity]on 02-24-2025 ESR (Bld) [Velocity] 8 mm/h [facility] Interpretation and review of laboratory results Normal [facility] ESR (Bld) [Velocity] 8 mm/h Normal 0-20 [facility] Comment on above: Order Comment: Speci men Type: BLOOD SPECIMENOrdering Facility: [facility] [place] Address: [address] [place] [address] Performed By: #### 4 537-7 ####[facility] [id number] [address] [place] HbA1c (Bld)on 02-24-2025 Average glucose Estimated from glycated hemoglobin (Bld) [Mass/Vol] 111 mg/dL Normal [facility] Comment on above: Order Comment: Georgei mario Type: BLOOD SPECIMENOrdering Facility: [facility] [place] Address: [address] [place] [address] Result Comment: eAG: (Estimated average glucose) is a calculated value from HgbA1c and is automobile sales representative of the average blood glucose level in the last 2-3 month period. Performed By: #### 5 5454-3 ####[facility] [id number] [address] [place] HbA1c (Bld) [Mass fraction] 5.5 % Normal 4.3-5.6 [facility] Comment on above: Order Comment: Georgei men Type: BLOOD SPECIMENOrdering Facility: [facility] [place] Address: [address] [place] [address] Result Comment: Amer [place] Diabetes Association guidelines indicate that patients with HgbA1c in the range 5.7-6.4% are at increased risk for development of diabetes, and intervention by lifestyle modification may be beneficial. HgbA1c greater or equal to 6.5% is considered diagnostic of diabetes. Performed By: #### 5 5454-3 ####[facility] LABIA [id number] [address] OF [facility] No Panel Informationon 02-24 Interpretation and review of laboratory results [facility] RHEUMATOID FACTORon 02-25-20 25 Rheumatoid factor Qn NINF [facility] Rheumatoid fact SerPl-aCncon 02-24-2025 Rheumatoid factor Qn [IU]/mL Normal <16 [facility] Comment on above: Order Comment: Speci men Type: BLOOD SPECIMENOrdering Facility: [facility] [place] Address: [address] [place] [address] Performed By: #### 2 4321-2, 3015-3, 1987-12, 54991-7 ####[facility] LABIA [id number] [address] OF [facility] TSH SerPl-aCncon 02-24-2025 TSH Qn 2.650 m[IU]/L Normal 0.270-4.200 [facility] Comment on above: Order Comment: Speci men Type: BLOOD SPECIMENOrdering Facility: [facility] [place] Address: [address] [place] [address] Performed By: #### 2 4321-2, 6-3, 1987-12, ####[facility] [id number] [address] [place] CNOVon 02-04-2025 CNOV Office Visit (PODIWS ) KEMAL CANTU ([id number]) 1945 F Date Time Provider Department 02/04/25 [...] K2 10 (more content not included)... Normal [facility] PVR ANK PRESS NOBLE VAS LABon 01-29-2025 PVR ANK PRESS NOBLE VAS LAB Non-Invasive Vascular Laboratory [facility] Lower Extremity Arterial Physiology Study Bilateral/Complete Date [...] physician: Carlos Cortez MD, RPVI Final CC [facility] Image : [id number] amicsSISUID See Link below for Image Normal [facility] CNOVon 01-20-2025 CNOV Office Visit (SLEWST ) KEMAL CANTU ([id number]) 1945 F Date Time Provider Department 01/20/25 [...] bedtime. pramipexole (more content not included)... Normal [facility] 01-20-2025 [facility] Telephone (SLEWST) KEMAL CANTU ([id number]) 1945 F Date Time Provider Department 01/20/25 HOLLIE BLEVINS JR During your visit today, we recorded the following information about you: Katie Reeves LPN 01/20/2025 11:57 AM Addendum PA requested through [employer]. Received message PA previously denied. Appeal faxed [...] Fully Assessed Reason for Visit: Insurance Authorization [[id number]] Cmt: Horizant Prescriptions as of 02/11/2025 - [...] with ne (more content not included)... Normal [facility] CNPLucero 01-17-2025 CNPN Telephone (MARYLU) KEMAL CANTU ([id number]) 1945 F Date Time Provider Department 01/17/25 [...] sodium (VOLTAREN) (more content not included)... Normal [facility] 12-29-2024 [facility] Telephone (SLEWST) KEMAL CANTU ([id number]) 1945 F Date Time Provider Department 12/29/24 ALTAGRACIA CONSTANTINO During your visit today, we recorded the following information about you: Radha Casillas OCCA 12/29/2024 8:09 AM Signed Request received on CoverMyMeds for Gabapentin. Prior authorization completed using [employer]: [id number] Please watch for determination. LISSETTE Oneil Gillian, OCCA 12/30/2024 8:49 AM Signed CoverMyMeds stating PA has already submitted and is in process for this patient and drug.;CaseId:[id number] ;Status:In Process Nat Manriquez RN 01/03/2025 1:21 [...] for bid per pt request Altagracia Constantino APRN.RUBY ON RAILS DEVELOPER Allergies As of Date: 12/29/2024 Noted Allergy [...] (restless legs syndrome) [G25.81] Order(s):gabapentin 300 mg Sr24Vdrk 1 tablet by mouth two times a [...] (more content not included)... [facility] REFUGIO Telephone (ANATOLIY) KEMAL CANTU ([id number]) 1945 F Date Time Provider Department 12/27/24 [...] (restless legs syndrome) [G25.81] Order(s):gabapentin 300 mg Ay48Ejnh 1 pill by mouth at 2 PM [...] Anxiety and (more content not included)... Normal [facility] CNOVon 12-23-2024 CNOV Office Visit (PODIWS ) KEMAL CANTU ([id number]) 1945 F Date Time Provider Department 12/23/24 [...] (or decreased sensation in your feet) a costumed character entertainer should always cut your toenails. Be Careful [...] of stif (more content not included)... Normal [facility] XR FOOT 3V AP/LAT/OBL BILon 12-23-2024 XR [...] acute osseous abnormality. Degenerative changes, as described. Museum Educator: CHAR Transcribe Date/Time: Dec 26 2024 8:56P Dictated by : NIDHI ROSENBAUM MD This examination was interpreted and the report reviewed and electronically signed by: NIDHI ROSENBAUM MD on Dec 26 2024 8:57PM EST [id number] Normal [facility] 11-27-2024 CNPN Telephone (NEMEngageSciences) KEMAL CANTU ([id number]) 1945 F Date Time Provider Department 11/27/24 [...] scanned documents. Insurance Company Name: Medicare with [employer] Patient ID number: Medicare [id number] NVISION MEDICAL ID #: [id number] Pharmacy Name: [facility] Telephone number: [facility] Prior Authorization number: RxBin: [id number] RxPcn: RxGrp: Exlmdrx Cane Flume Chute Operator number: [id number]) [id number] [facility]: [id number] Alessia Mercado LPN 12/02/2024 3:39 PM Signed Attempted to do PA via cover my meds- PA was already submitted for this patient and drug which was denied.;CaseId:[id number];Status:Denied;Appe al Information: Attention:ADVOCACY DEPARTMENT SIMPLY PRESCRIPTIONS,EMILYSUSAN [...] 1 tablet (more content not included)... Normal [facility]EM[facility] ([id number]) 1945 F Date Time Provider Department 11/25/24 HELEN CHAPA During your visit today, we recorded the following information about you: Rachael Espinosa LPN 11/25/2024 12:13 PM Signed Pt calls to report she went to [facility] to cone picker rx for Horizant 300 mg and was advised that insurance would not approve medication. Pt reports no other medications were provided on formulary. Pt is going to call insurance to see what insurance says about what is needed and will call back. EARNEST Ruiz Jessica, LPN 11/26/2024 1:59 PM Signed PA started via [employer]. EARNEST Cevallos Jessica, LPN 12/02/2024 10:33 AM [...] 04/10/2019 OS (more content not included)... Normal [facility] Cardiology Visit Reporton Cardiology Visit Report [facility] [address] [place], [place] [address] OFFICE VISIT Date of Service: 11/22/24 MR#: [id number] Acct: [id number] Name: KEMAL CANTU Rep #: [id number] : 1945 Provider: ZEYNEP cee Age/Sex: 79/F [place] [facility] [place] Status: Signed HPI HPI History of Present Illness Details: Kemal Cantu, is a 79-year-old female who presents here today for a follow-up visit. She does have a history of coronary artery disease. She had a heart catheterization here at [facility] and was noted to have significant calcification of her RCA. Because of this, she was transferred to [facility] for further intervention. She underwent an arthrectomy [...] air Intake Visit Reasons: 6-9 M FU Csw Required: No Accompanied by: Self Is patient [...] 75 mcg PO DAILY 09/28/21 11/22/24 History xoefuhzk-ducy-iegb 8 mg-folic 400 1 tab PO DAILY [...] mg PO TROY (more content not included)... [facility] 11-04-2024 [facility] Telephone (INTMWS) KEMAL CANTU ([id number]) 1945 F Date Time Provider Department 11/04/24 [...] 04/10/2019 Fi (more content not included)... Normal [facility] CNOVon 10-14-2024 CNOV Office Visit (UCWSTR ) KEMAL CANTU ([id number]) 1945 F Date Time Provider Department 10/14/24 11:15 AM GEORGETTE BAUTISTA [facility] During your visit today, we recorded the following information about you: Temperature Pulse Respiration Blood pressure 97.5 degrees 68/minute 18/minute 158/84 Weight 125.7 kg Georgette Bautista APRN.RUBY ON RAILS DEVELOPER 10/14/2024 11:14 AM Signed Subjective HPI HPI [...] Q10) 1 (more content not included)... Normal [facility] CNOVon 08-26-2024 CNOV Office Visit (INTMWS ) KEMAL CANTU ([id number]) 1945 F Date Time Provider Department 08/26/24 [...] EYE) 2018 (more content not included)... Normal [facility] 25(OH)D3 SerPl-mCncon 2024 25-hydroxyvitamin D3 [Mass/Vol] 53.2 ng/mL Normal 31.0-80.0 [facility] Comment on above: Order Comment: Speci men Type: BLOOD SPECIMENOrdering Facility: [facility] [place] Address: [address] [place] [address] Performed By: #### 1 989-3 ####[facility] LABIA [id number] [place] [address] [place] CBC panel Auto (Bld)on 08-20 Erythrocyte distribution width (RBC) [Ratio] 13.5 % Normal 11.5-15.0 [facility] Comment on above: Order Comment: Speci men Type: BLOOD SPECIMENOrdering Facility: [facility] [place] Address: [address] [place] [address] Performed By: #### 5 8410-2 ####[facility] LABIA [id number] [place] [address] [place] Hematocrit (Bld) [Volume fraction] 43.3 % Normal 36.0-46.0 [facility] Comment on above: Order Comment: Speci men Type: BLOOD SPECIMENOrdering Facility: [facility] [place] Address: [address] [place] [address] Performed By: #### 5 8410-2 ####[facility] LABIA [id number] [place] [address] [place] Hemoglobin (Bld) [Mass/Vol] 14.0 g/dL Normal 11.5-15.5 [facility] Comment on above: Order Comment: Speci men Type: BLOOD SPECIMENOrdering Facility: [facility] [place] Address: [address] [place] [address] Performed By: #### 5 8410-2 ####[facility] LABCLIA [id number] [place] [address] [place] MCH (RBC) [Entitic mass] 29.7 pg Normal 26.0-34.0 [facility] Comment on above: Order Comment: Speci men Type: BLOOD SPECIMENOrdering Facility: [facility] [place] Address: [address] [place] [address] Performed By: #### 5 8410-2 ####[facility] LABIA [id number] [place] [address] [place] MCHC (RBC) [Mass/Vol] 32.3 g/dL Normal 30.5-36.0 [facility] Comment on above: Order Comment: Speci men Type: BLOOD SPECIMENOrdering Facility: [facility] [place] Address: [address] [place] [address] Performed By: #### 5 8410-2 ####[facility] [id number] [place] [address] [place] MCV (RBC) [Entitic vol] 91.7 fL Normal 80.0-100.0 [facility] Comment on above: Order Comment: Speci men Type: BLOOD SPECIMENOrdering Facility: [facility] [place] Address: [address] [place] [address] Performed By: #### 5 8410-2 ####[facility] [id number] [place] [address] [place] Nucleated RBC (Bld) [#/Vol] 10*3/uL Normal <0.01 [facility] Comment on above: Order Comment: Speci men Type: BLOOD SPECIMENOrdering Facility: [facility] [place] Address: [address] [place] [address] Performed By: #### 5 8410-2 ####[facility] LABIA [id number] [place] [address] [place] Platelet mean volume (Bld) [Entitic vol] 9.6 fL Normal 9.0-12.7 [facility] Comment on above: Order Comment: Speci men Type: BLOOD SPECIMENOrdering Facility: [facility] [place] Address: [address] [place] [address] Performed By: #### 5 8410-2 ####[facility] LABCLIA [id number] [place] [address] [place] Platelets (Bld) [#/Vol] 215 10*3/uL Normal 150-400 [facility] Comment on above: Order Comment: Speci men Type: BLOOD SPECIMENOrdering Facility: [facility] [place] Address: [address] [place] [address] Performed By: #### 5 8410-2 ####[facility] LABCLIA [id number] [place] [address] [place] RBC (Bld) [#/Vol] 4.72 10*6/uL Normal 3.90-5.[address] [facility] Comment on above: Order Comment: Speci men Type: BLOOD SPECIMENOrdering Facility: [facility] [place] Address: [address] [place] [address] Performed By: #### 5 8410-2 ####[facility] LABCLIA [id number] [place] [address] [place] WBC (Bld) [#/Vol] 3.72 10*3/uL Normal 3.70-11.[address] [facility] Comment on above: Order Comment: Speci men Type: BLOOD SPECIMENOrdering Facility: [facility] [place] Address: [address] [place] [address] Performed By: #### 5 8410-2 ####[facility] LABCLIA [id number] [place] [address] [place] Comprehensive metabolic 2000 panelon 08-20-2024 Albumin [Mass/Vol] 4.0 g/dL Normal 3.9-4.9 [facility] Comment on above: Order Comment: Speci men Type: BLOOD SPECIMENOrdering Facility: [facility] [place] Address: [address] [place] [address] Performed By: #### 2 4331-1, 88817-4, 3016-3, 35803-1 ####[facility] LABCLIA [id number] [place] [address] [place] ALP [Catalytic activity/Vol] 92 U/L Normal 34-123 [facility] Comment on above: Order Comment: Speci men Type: BLOOD SPECIMENOrdering Facility: [facility] [place] Address: [address] [place] [address] Performed By: #### 2 4331-1, 28550-9, 3016-3, 44609-0 ####[facility] LABCLIA [id number] [place] [address] [place] ALT [Catalytic activity/Vol] 23 U/L Normal 7-38 [facility] Comment on above: Order Comment: Speci men Type: BLOOD SPECIMENOrdering Facility: [facility] [place] Address: [address] [place] [address] Performed By: #### 2 4331-1, 70514-5, 3015-3, 68821-8 ####[facility] LABIA [id number] [place] [address] [place] Anion gap [Moles/Vol] 11 mmol/L Normal 8-15 [facility] Comment on above: Order Comment: Speci men Type: BLOOD SPECIMENOrdering Facility: [facility] [place] Address: [address] [place] [address] Performed By: #### 2 4331-1, 56950-8, 3015-3, 56153-7 ####[facility] LABIA [id number] [place] [address] [place] AST [Catalytic activity/Vol] 20 U/L Normal 13-35 [facility] Comment on above: Order Comment: Speci men Type: BLOOD SPECIMENOrdering Facility: [facility] [place] Address: [address] [place], [place] [address] Performed By: #### 2 4331-1, 72388-4, 3015-3, 06408-7 ####[facility] LABCLIA [id number] [address] [address] [place] Bilirubin [Mass/Vol] 0.5 mg/dL Normal 0.2-1.3 [facility] Comment on above: Order Comment: Speci men Type: BLOOD SPECIMENOrdering Facility: [facility] [place] Address: [address] [place], [place] [address] Performed By: #### 2 4331-1, 67572-1, 3015-3, 17367-8 ####[facility] LABCLIA [id number] [place] [address] [place] Calcium [Mass/Vol] 9.7 mg/dL Normal 8.5-10.2 [facility] Comment on above: Order Comment: Speci men Type: BLOOD SPECIMENOrdering Facility: [facility] [place] Address: [address] [place], [place] [address] Performed By: #### 2 4331-1, 78544-0, 3015-3, 61783-1 ####[facility] LABCLIA [id number] [place] [address] [place] Chloride [Moles/Vol] 102 mmol/L Normal 98-107 [facility] Comment on above: Order Comment: Speci men Type: BLOOD SPECIMENOrdering Facility: [facility] [place] Address: [address] [place] [address] Performed By: #### 2 4331-1, 66572-9, 301-3, 68549-3 ####[facility] LABCLIA [id number] [place] [address] [place] CO2 [Moles/Vol] 28 mmol/L Normal 22-30 [facility] Comment on above: Order Comment: Speci men Type: BLOOD SPECIMENOrdering Facility: [facility] [place] Address: [address] [place] [id number] Performed By: #### 2 4331-1, 72634-8, 6-3, 38880-6 ####[facility] LABIA [id number] [address] [address] [place] Creatinine [Mass/Vol] 0.90 mg/dL Normal 0.58-0.96 [facility] Comment on above: Order Comment: Speci men Type: BLOOD SPECIMENOrdering Facility: [facility] [place] Address: [address] [place] [address] Performed By: #### 2 4331-1, 29885-8, 3015-3, 41686-4 ####[facility] [id number] [place] [address] [place] Creatinine and Glomerular filtration rate.predicted panel (S/P/Bld) 66 mL/min/1.73m??? Normal >=60 [facility] Comment on above: Order Comment: Speci men Type: BLOOD SPECIMENOrdering Facility: [facility] [place] Address: [address] [place] [address] Result Comment: Marli mated Glomerular Filtration Rate [...] actual GFR. Performed By: #### 2 4331-1, 77863-8, 3015-3, 29838-2 ####[facility] LABIA [id number] [place] [address] [place] Glucose [Mass/Vol] 117 mg/dL High 74-99 [facility] Comment on above: Order Comment: Speci men Type: BLOOD SPECIMENOrdering Facility: [facility] [place] Address: [address] [place] [address] Result Comment: The [place] Diabetes Association (ADA) provides guidance for cutoff [...] Standards of Medical Care in Diabetes 2016, [place] Diabetes Association. Diabetes Care. 2016.39(Suppl 1). Performed By: #### 2 4331-1, 86161-5, 3015-3, 32748-7 ####[facility] LABCLIA [id number] [place] [address] [place] Potassium [Moles/Vol] 4.6 mmol/L Normal 3.7-5.1 [facility] Comment on above: Order Comment: Speci men Type: BLOOD SPECIMENOrdering Facility: [facility] [place] Address: [address] [place] [address] Performed By: #### 2 4331-1, 32420-1, 3, 80300-9 ####[facility] LABCLIA [id number] [place] [address] [place] Protein [Mass/Vol] 6.6 g/dL Normal 6.3-8.0 [facility] Comment on above: Order Comment: Speci men Type: BLOOD SPECIMENOrdering Facility: [facility] Address: [address] [place] [address] Performed By: #### 2 4331-1, 33375-7, 3, 13554-5 ####[facility] LABCLIA [id number] [place] [address] [place] Sodium [Moles/Vol] 141 mmol/L Normal 136-144 [facility] Comment on above: Order Comment: Speci men Type: BLOOD SPECIMENOrdering Facility: [facility] Address: [address] [place] [address] Performed By: #### 2 4331-1, 84077-6, 3016-3, 56459-2 ####[facility] LABCLIA [id number] [place] [address] [place] Urea nitrogen [Mass/Vol] 13 mg/dL Normal 7-21 [facility] Comment on above: Order Comment: Speci men Type: BLOOD SPECIMENOrdering Facility: [facility] Address: [address] [place] [address] Performed By: #### 2 4331-1, 90416-6, 3016-3, 36965-6 ####[facility] LABCLIA [id number] [place] [address] [place] Ferritin SerPl-mCncon 2024 Ferritin [Mass/Vol] 51.2 ng/mL Normal 14.7-205.[address] [facility] Comment on above: Order Comment: Speci men Type: BLOOD SPECIMENOrdering Facility: [facility] Address: [address] [place] [address] Performed By: #### 2 276-4 ####[facility] LABIA [id number] [place] [address] [place] HbA1c (Bld)on 08-20-2024 Average glucose Estimated from glycated hemoglobin (Bld) [Mass/Vol] 103 mg/dL Normal [facility] Comment on above: Order Comment: Speci men Type: BLOOD SPECIMENOrdering Facility: [facility] Address: [address] [place] [address] Result Comment: eAG: (Estimated average glucose) is a calculated value from HgbA1c and is automobile sales representative of the average blood glucose level in the last 2-3 month period. Performed By: #### 5 5454-3 ####[facility] LABCLIA [id number] [place] [address] [place] HbA1c (Bld) [Mass fraction] 5.2 % Normal 4.3-5.6 [facility] Comment on above: Order Comment: Speci men Type: BLOOD SPECIMENOrdering Facility: [facility] [place] Address: [address] [place] [address] Result Comment: [place] Diabetes Association guidelines indicate that patients with HgbA1c in the range 5.7-6.4% are at increased risk for development of diabetes, and intervention by lifestyle modification may be beneficial. HgbA1c greater or equal to 6.5% is considered diagnostic of diabetes. Performed By: #### 5 5454-3 ####[facility] LABIA [id number] [place] [address] [place] Iron and Iron binding capaci ty panelon 08-20-2024 Iron [Mass/Vol] 70 ug/dL Normal 41-186 [facility] Comment on above: Order Comment: Georgei men Type: BLOOD SPECIMENOrdering Facility: [facility] Address: [address] [place] [address] Performed By: #### 2 4331-1, 85270-0, 3016-3, 13252-7 ####[facility] LABIA [id number] [place] [address] [place] Iron binding capacity [Mass/Vol] 346 ug/dL Normal 232-386 [facility] Comment on above: Order Comment: Speci men Type: BLOOD SPECIMENOrdering Facility: [facility] [place] Address: [address] [place] [address] Performed By: #### 2 4331-1, 80650-6, 3016-3, 22668-1 ####[facility] LABIA [id number] [place] 0[address]395 [place] Iron/TIBC [Molar ratio] 20.2 % Normal 15.0-57.0 [facility] Comment on above: Order Comment: Speci men Type: BLOOD SPECIMENOrdering Facility: [facility] [place] Address: [address] [place] [address] Performed By: #### 2 4331-1, 32293-3, 3015-3, 04535-4 ####[facility] LABCLIA [id number] [place] [address] [place] Lipid 1996 panelon 5 Cholesterol [Mass/Vol] 172 mg/dL Normal <200 [facility] Comment on above: Order Comment: Speci men Type: BLOOD SPECIMENOrdering Facility: [facility] [place] Address: [address] [place] [address] Result Comment: <200 mg/dL, Desirable 200-239 mg/dL, Borderline high >239 mg/dL, High Performed By: #### 2 4331-1, 01465-0, 3015-3, 54772-3 ####[facility] LABCLIA [id number] [address] [place] Cholesterol in HDL [Mass/Vol] 58 mg/dL Normal >39 [facility] Comment on above: Order Comment: Margie men Type: BLOOD SPECIMENOrdering Facility: [facility] [place] Address: [address] [place] [address] Result Comment: 40-5 9 mg/dL, Acceptable >59 mg/dL, High: Negative risk factor for coronary heart disease <40 mg/dL, Low: Positive risk factor for coronary heart disease Performed By: #### 2 4331-1, 20752-0, 3015-3, 80120-6 ####[facility] LABCLIA [id number] [address] [place] Cholesterol in LDL [Mass/Vol] 98 mg/dL Normal <100 [facility] Comment on above: Order Comment: Speci men Type: BLOOD SPECIMENOrdering Facility: [facility] [place] Address: [address] [place] [address] Result Comment: <100 mg/dL, Optimal 100-129 mg/dL, Near optimal/above optimal 130-159 mg/dL, Borderline high 160-189 mg/dL, High >189 mg/dL, Very high Secondary prevention optimal LDL Cholesterol levels are recommended to be < 70 mg/dL Performed By: #### 2 4331-1, 52208-1, 3016-3, 74758-8 ####[facility] LABIA [id number] [place] [address] [place] Cholesterol in LDL/Cholesterol in HDL [Mass ratio] 1.69 {ratio} Normal <2.54 [facility] Comment on above: Order Comment: Speci men Type: BLOOD SPECIMENOrdering Facility: [facility] [place] Address: [address] [place] [address] Result Comment: Refe rence: 1. National Cholesterol Education Program ATP III Guideline At-A-Glance Quick Desk Reference: National Heart, Lung, and Blood [place]. National Institutes of Health. 2001: NIH Publication No. 01-3305. 2. An International Atherosclerosis Society position paper: global recommendations for the management of dyslipidemia: executive summary, Atherosclerosis. 2014: 232(2):410-413. Performed By: #### 2 4331-1, 72956-9, 3016-3, 93504-5 ####[facility] LABIA [id number] [place] [address] [place] Cholesterol in VLDL [Mass/Vol] 16 mg/dL Normal <30 [facility] Comment on above: Order Comment: Speci men Type: BLOOD SPECIMENOrdering Facility: [facility] [place] Address: [address] [place] [address] Performed By: #### 2 4331-1, 22516-3, 3016-3, 30399-7 ####[facility] LABIA [id number] [address] [address] [place] Cholesterol non HDL [Mass/Vol] 114 mg/dL Normal <130 [facility] Comment on above: Order Comment: Speci men Type: BLOOD SPECIMENOrdering Facility: [facility] [place] Address: [address] [place] [address] Result Comment: <130 mg/dL, Optimal 130-159 mg/dL, Near optimal/above optimal 160-189 mg/dL, Borderline high 190-219 mg/dL, High >219 mg/dL, Very high Secondary prevention optimal non HDL Cholesterol levels are recommended to be <100 mg/dL Performed By: #### 2 4331-1, 76542-6, 3015-3, 67660-4 ####[facility] LABCLIA [id number] [address] [address] [place] Cholesterol.total/Anna sterol in HDL [Mass ratio] 2.97 {ratio} Normal <5.10 [facility] Comment on above: Order Comment: Speci men Type: BLOOD SPECIMENOrdering Facility: [facility] [place] Address: [address] [place] [address] Performed By: #### 2 4331-1, 68645-7, 3015-10, ####[facility] LABCLIA [id number] [place] [address] [place] FASTING TIME 12 hrs Normal [facility] Comment on above: Order Comment: Speci men Type: BLOOD SPECIMENOrdering Facility: [facility] [place] Address: [address] [place] [address] Performed By: #### 2 4331-1, 68138-0, 3015-10, ####[facility] LABCLIA [id number] [address] [address] [place] Triglyceride [Mass/Vol] 80 mg/dL Normal <150 [facility] Comment on above: Order Comment: Speci men Type: BLOOD SPECIMENOrdering Facility: [facility] [place] Address: [address] [place], [place] [address] Result Comment: <150 mg/dL, Normal 150-199 mg/dL, Borderline high 200-499 mg/dL, High >499 mg/dL, Very high Performed By: #### 2 4331-1, 38492-1, 3, ####[facility] LABCLIA [id number] [address] [address] [place] TSH SerPl-aCncon 08-20-2024 TSH Qn 3.510 m[IU]/L Normal 0.270-4.200 [facility] Comment on above: Order Comment: Speci men Type: BLOOD SPECIMENOrdering Facility: [facility] [place] Address: [address] [place] [address] Performed By: #### 2 4331-1, 24780-9, 3016-3, 93921-8 ####[facility] LABCLIA [id number] [place] [address] [id number] [facility] CNOVon 06-21-2024 CNOV Office Visit (SLEWST ) KEMAL CANTU ([id number]) 1945 F Date Time Provider Department 06/21/24 10:00 AM ALTAGRACIA CONSTANTINO During your visit today, we recorded the following information about you: Pulse Respiration Blood pressure Weight 64/minute 16/minute 138/76 124.3 kg Altagracia Constantino APRN.CNP 06/21/2024 12:43 PM Signed [facility] Follow up/ Established [...] 1 tablet (more content not included)... Normal [facility] Cardiology Visit Reporton Cardiology Visit Report [facility] [address] [place] [address] OFFICE VISIT Date of Service: 04/05/24 MR#: [id number] Acct: [id number] Name: KEMAL CANTU Rep #: [id number] : 1945 Provider: ZEYNEP cee Age/Sex: 78/F Location[place] [facility] [place] Status: Signed HPI HPI History of Present Illness Details: Kemal Cantu, is a 78-year-old female who presents here today for a follow-up visit. She does have a history of coronary artery disease. She had a heart catheterization here at [facility] and was noted to have significant calcification of her RCA. Because of this, she was transferred to [facility] for further intervention. She underwent an arthrectomy [...] 100 Intake Visit Reasons: 6 M FU Csw Required: No Is patient in pain?: No [...] 75 mcg PO DAILY 09/28/21 04/05/24 History rdjjzphs-puyz-ygql 8 mg-folic 400 1 tab PO DAILY [...] 25 m (more content not included)... Normal [facility] Absolute lymphocyte countOrd ered By: Payton Bruno on 10-06-2023 Lymphocytes Auto (Unsp spec) [#/Vol] 1.11 10*3/uL 0.83-4.51 [facility] Automated lymphocyte count a s percentage of total leukocytesOrdered By: Payton Bruno on 10-06-2023 Lymphocytes/100 WBC Auto (Unsp spec) 25.5 % 19-41 [facility] Basophil percentageOrdered B y: Payton Bruno on 10-06-2023 Basophils/100 WBC (Bld) 0.7 % 0-1 [facility] Chloride [Moles/Vol] 108 mmol/L 98-107 [facility] Eosinophils/100 WBC (Bld) 2.8 % 0-5 [facility] Glucose [Mass/Vol] 93 mg/dL 74-106 [facility] Hemoglobin (Bld) [Mass/Vol] 13.6 g/dL 12.0-15.0 [facility] Monocytes/100 WBC (Bld) 7.8 % 0-10 [facility] Neutrophils (Bld) [#/Vol] 2.7 10*3/uL 2.0-7.7 [facility] Neutrophils/100 WBC (Bld) 62.5 % 47-70 [facility] Potassium [Moles/Vol] 4.6 mmol/L 3.5-5.1 [facility] Sodium [Moles/Vol] 141 mmol/L 136-145 [facility] WBC (Bld) [#/Vol] 4.4 10*3/uL 4.4-11.0 [facility] Determination of erythrocyte mean corpuscular volume (MCV)Ordered By: Payton Bruno on 10-06-2023 MCV (RBC) [Entitic vol] 88.3 fL 81-99 [facility] Erythrocyte distribution wid th ratioOrdered By: Payton Bruno on 10-06-2023 Erythrocyte distribution width (RBC) [Ratio] 14.0 % 11.6-14.6 [facility] Erythrocyte distribution wid th standard deviationOrdered By: Payton Bruno on 10-06-2023 Erythrocyte distribution width (RBC) [Entitic vol] 45.2 fL 35.1-43.9 [facility] Hematocrit Auto (Bld) [Volum e fraction]Ordered By: Payton Bruno on 10-06-2023 Hematocrit (Bld) [Volume fraction] 42.3 % 37-47 [facility] Immature granulocytes/100 WB C Auto (Bld)Ordered By: Payton Bruno on 10-06-2023 Immature granulocytes/100 WBC (Bld) 0.700 % 0.0-0.9 [facility] Comment on above: IG% - Immature Granu locytes (promyelocytes, myelocytes and metamyelocytes) > 1% indicates that a LEFT SHIFT is Present. Laboratory - Chemistry and C hemistry - challengeOrdered By: Payton Bruno on 10-06-2023 CO2 [Moles/Vol] 30.0 mmol/L 21.0-32.0 [facility] Natriuretic peptide B (Bld) [Mass/Vol] 58.8 pg/mL 0-100 [facility] Urea nitrogen/Creatinine [Mass ratio] 18.9 mg/mg 10-20 [facility] Laboratory - Hematology and Cell countsOrdered By: Payton Bruno on 10-06-2023 MCH (RBC) [Entitic mass] 28.4 pg 27.0-32.0 [facility] MCHC (RBC) [Mass/Vol] 32.2 g/dL 32-36 [facility] Nucleated RBC/100 WBC (Bld) [Ratio] 0 % 0-5 [facility] Platelet mean volume (Bld) [Entitic vol] 10.0 fL 6.2-12.0 [facility] Platelets (Bld) [#/Vol] 205 10*3/uL 150-450 [facility] No Panel InformationOrdered By: Payton Bruno on 10-06-2023 Estimated GFR (MDRD) Amer 78 mL/min >60 [facility] Comment on above: GFR Calc Estimated GFR (MDRD) Non-Af Amer 65 mL/min >60 [facility] Comment on above: Non- GFR Calc RBC Auto (Bld) [#/Vol]Ordere d By: Payton Bruno on 10-06-2023 RBC (Bld) [#/Vol] 4.79 10*6/uL 4.2-5.4 [facility] Serum or plasma calcium za urement (mass/volume)Ordered By: Payton Bruno on 10-06-2023 Calcium [Mass/Vol] 9.7 mg/dL 8.5-10.1 [facility] Serum or plasma creatinine m easurement (mass/volume)Ordered By: Payton Bruno on 10-06-2023 Creatinine [Mass/Vol] 0.90 mg/dL 0.55-1.02 [facility] Comment on above: The validity of the calculated GFR & GFRAA in patients over 70 years has not been determined. Clinical correlation is essential. Serum or plasma urea nitroge n measurement (mass/volume)Ordered By: Payton Bruno on 10-06-2023 Urea nitrogen [Mass/Vol] 17 mg/dL 7-18 [facility] Thin prep Papanicolaou smear with manual screeningOrdered By: Payton Bruno on 10-06-2023 Thin prep Papanicolaou smear with manual screening 3 5-15 [facility] 25(OH)D3 SerPl-mCncon 2022 25-hydroxyvitamin D3 [Mass/Vol] 81.9 ng/mL High 31.0-80.0 [facility] Comment on above: Order Comment: Margie martin Type: BLOOD SPECIMEN Ordering Facility: [facility] [place] Address: [address] [place] [address] Result Comment: Clas sification of 25 [place] Vitamin D status: Deficiency/Insufficiency: < or = 30 ng/ml. Sufficiency/Optimal Levels: 31-80 ng/mL Toxicity: > 100 ng/mL. Test performed by chemiluminescent immunoassay. Performed By: #### 1 989-3 #### [facility] CLIA [id number] [place] Ferritin [facility] 2022 Ferritin [Mass/Vol] 54.3 ng/mL Normal 14.7-205.1 [facility] Comment on above: Order Comment: Margie martin Type: BLOOD SPECIMEN Ordering Facility: [facility] [place] Address: [address] Performed By: #### 5 0190-8, 2275-4 #### [facility] CLIA [id number] [address] [place] Iron and Iron binding capaci [facility] 05-15-2023 Iron [Mass/Vol] 57 ug/dL Normal 41-186 [facility] Comment on above: Order Comment: Margie martin Type: BLOOD SPECIMEN Ordering Facility: [facility] [place] Address: [address] [place] [address] Performed By: #### 5 0190-8, 6-4 #### [facility] CLIA [id number] [address] [place] Iron binding capacity [Mass/Vol] 320 ug/dL Normal 232-386 [facility] Comment on above: Order Comment: Margie martin Type: BLOOD SPECIMEN Ordering Facility: [facility] [place] Address: [address] [place] [address] Performed By: #### 5 0190-8, 6-4 #### [facility] CLIA [id number] [address] [place] [address] [place] Iron/TIBC [Molar ratio] 17.8 % Normal 15.0-57.0 [facility] Comment on above: Order Comment: Speci men Type: BLOOD SPECIMEN Ordering Facility: [facility] [place] Address: [address] [place] [address] Performed By: #### 5 0190-8, 2276-4 #### [facility] CLIA [id number] [address] [place] [address] [place] XR HIP GENERAL 3V PELV/AP/LA T RIGHTon 04-24-2023 [facility] XR HIP GENERAL 3V PELV/AP/LA T RIGHTon 03-27-2023 [facility] Basic metabolic 2000 panelon 03-16-2023 Anion gap [Moles/Vol] 7 mmol/L Low 9-18 [facility] Comment on above: Order Comment: Speci men Type: BLOOD SPECIMEN Ordering Facility: [facility] [place] Address: [address] [place] [address] Performed By: #### 2 4321-2 #### [facility] CLIA [id number] [address] [place] [address] [place] Calcium [Mass/Vol] 9.5 mg/dL Normal 8.5-10.2 [facility] Comment on above: Order Comment: Speci men Type: BLOOD SPECIMEN Ordering Facility: [facility] [place] Address: [address] [place] [address] Performed By: #### 2 4321-2 #### [facility] CLIA [id number] [address] [place] [address] [place] Chloride [Moles/Vol] 102 mmol/L Normal 97-105 [facility] Comment on above: Order Comment: Speci men Type: BLOOD SPECIMEN Ordering Facility: [facility] [place] Address: [address] [place] [address] Performed By: #### 2 4321-2 #### [facility] CLIA [id number] [address] [place] [address] [place] CO2 [Moles/Vol] 28 mmol/L Normal 22-30 [facility] Comment on above: Order Comment: Speci men Type: BLOOD SPECIMEN Ordering Facility: [facility] [place] Address: [address] [place] [address] Performed By: #### 2 4321-2 #### [facility] CLIA [id number] [address] Creatinine [Mass/Vol] 0.98 mg/dL High 0.58-0.96 [facility] Comment on above: Order Comment: Margie mario Type: BLOOD SPECIMEN Ordering Facility: [facility] [place] Address: [address] [place] [address] Performed By: #### 2 4321-2 #### [facility] CLIA [id number] [address] OF [facility] ESTIMATED GLOMERULAR FILTRATION RATE 60 mL/min/1.73m??? Normal >=60 [facility] Comment on above: Order Comment: Margie mario Type: BLOOD SPECIMEN Ordering Facility: [facility] [place] Address: [address] [place] [address] Result Comment: Marli mated Glomerular Filtration Rate [...] GFR. Performed By: #### 2 4321-2 #### [facility] CLIA [id number] [address] [place] Glucose [Mass/Vol] 141 mg/dL High 74-99 [facility] Comment on above: Order Comment: Georgemarquez martin Type: BLOOD SPECIMEN Ordering Facility: [facility] [place] Address: [address] [place] [address] Result Comment: The [place] Diabetes Association (ADA) provides guidance for cutoff [...] Standards of Medical Care in Diabetes 2016, [place] [employer] Association. Diabetes Care. 2016.39(Suppl 1). Performed By: #### 2 4321-2 #### [facility] CLIA [id number] [address] Potassium [Moles/Vol] 4.3 mmol/L Normal 3.7-5.1 [facility] Comment on above: Order Comment: Margie martin Type: BLOOD SPECIMEN Ordering Facility: [facility] [place] Address: [address] [place] [address] Performed By: #### 2 4321-2 #### [facility] CLIA [id number] [address] Sodium [Moles/Vol] 137 mmol/L Normal 136-144 [facility] Comment on above: Order Comment: Margie martin Type: BLOOD SPECIMEN Ordering Facility: [facility] [place] Address: [address] [place] [address] Performed By: #### 2 4321-2 #### [facility] CLIA [id number] [address] Urea nitrogen [Mass/Vol] 25 mg/dL High 7-21 [facility] Comment on above: Order Comment: Margie martin Type: BLOOD SPECIMEN Ordering Facility: [facility] [place] Address: [address] [place] [address] Performed By: #### 2 4321-2 #### [facility] CLIA [id number] [address] OF [facility] CASE MANAGEMon 03-16-2023 CASE MANAGEM HNO ID: [id number] Author: Romy Ramesh RN Service: ? Author [...] Home Health Agency, Physical Therapy Provider Name: [facility] Caregiver Assessment Caregiver is ready, willing and able to meet the patient's needs as recommended by the inter-professional team: Yes Name of Caregiver: Home with PSYCHIATRIC Transportation Arrangements Transportation Arrangements: Car Date of Trip: 03/16/23 Destination: Home Handoff Communication: Handoff to: Primary Care Physician Primary Care Physician Name/Phone: Dr. Chapa [phone] Additional Information: na Discharge Information Row Name Admission (Current) from 03/15/2023 in [facility] Start of Care -- 24-48 hours after discharge. Discharge order written for today, patient discharged home with PSYCHIATRIC. Patient agrees with discharge plan. Son will provide transportation. SIGNATURE: Romy Ramesh RN PATIENT NAME: Kemal Cantu DATE: March 16, 2023 TIME: 12:30 PM CONTACT #: [phone] [facility] [address] [facility] HNO ID: [id number] Author: Romy Ramesh RN Service: ? Author Type: Registered Nurse Type: Care Mgt Initial Assessment Filed: 03/16/2023 12:26 PM Note Text: CARE MANAGEMENT: ASSESSMENT AND DISCHARGE PLAN SERVICE DATE: March 16, 2023 SERVICE TIME: 11:13 AM PCP: Helen Chapa MD (confirmed) Primary Contact: Extended Emergency Contact Information Primary Emergency Contact: Vaibhav Veronica Address: [address] [place] [address] Mobile Relation: Son Secondary Emergency Contact: GlenysGt Address: [address] [place] [address] Mobile Relation: Relative Admission Status: Ambulatory Surgery Insurance Provider: MEDICARE A AND B Discharge Planning requested by: Per Department Practice Potential Transition Plans Home Care Advance Directives Current Advance Directive: Health Care Power of Field Handyman In Chart: Yes Up To Date and [...] Planning Patient Goal(s): General wellness, Less pain [place] of Choice Explained: [place] of [place] Given: Yes Level of Care Discussed: Home Care Are you interested in bedside delivery of your medications? No Discharge Planning Participant(s): Patient Patient/Family Comments: Caregiver Assessment: Caregiver is ready, willing and able to meet the patient's needs as recommended by the inter-professional team: Yes Name of Caregiver: home with [facility] Transport at Discharge: Transportation Arrangements: To Be Determined Needs Prior to Discharge: Needs Prior to Discharge: Home Care Order Post-Acute Discharge Plan: Home with [facility] Met with patient at bedside, introduced self/role of TCC. Patient admitted for a planned right total Hip with Dr. Hernandez. Patient lives alone in a 2 story home, her bed and bath are on the lst level. She is independent with ADLs and IADLs. Patient drives and ambulates without assistance. Patient will discharge with PSYCHIATRIC and a walker. Patient agrees with discharge plan. Family will transport. SIGNATURE: Romy Ramesh RN PATIENT NAME: Kemal Cantu DATE: March 16, 2023 TIME: 12:23 PM CONTACT #: [phone] Normal [facility] Hgb Bld-mCncon 03-16-2023 Hemoglobin (Bld) [Mass/Vol] 11.8 g/dL Normal 11.5-15.5 [facility] Comment on above: Order Comment: Speci men Type: BLOOD SPECIMEN Ordering Facility: [facility] Address: [address] [place] [id number] Performed By: #### 5 0190-8, 2276-4 #### [facility] CLIA [id number] [address] [place] [address] [facility] [place] THERAPY NTon 03-16-2023 THERAPY NT HNO ID: [id number] Author: Herman Holt PTA Service: Physical Therapy Author Type: Quality Control Tester Type: Therapy (PT/OT/Speech/Resp) Filed: 03/16/2023 10:11 AM Note Text: Attestation signed by Zahira Goncalves PT at 03/16/2023 12:49 PM I reviewed and agree with the documentation corresponding to this therapy visit. 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 Normal [facility] THERAPY NT HNO ID: [id number] Author: Jean Calderon, OT/L Service: ? 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 Normal [facility] ANES POSTPROC EVALon 023 ANES POSTPROC EVAL HNO ID: [id number] Author: Taniya Singleton MD Service: Anesthesiology Author Type: Anesthesiologist Type: Anesthesia Postprocedure Evaluation Filed: 03/15/2023 12:02 PM Note Text: POST ANESTHESIA EVALUATION NOTE : 1945 Procedure Summary Date: 03/15/23 Room / Location: [place] [address] / [place] Anesthesia Start: 733 Anesthesia Stop: 1051 [...] March 15, 2023 TIME: 12:02 PM CSN: [id number] [facility] ANES PRE-OPon 03-15-2023 ANES PRE-OP HNO ID: [id number] Author: Taniya Singleton MD Service: Anesthesiology Author Type: Anesthesiologist Type: Anesthesia Preprocedure Evaluation Filed: 03/15/2023 7:04 AM Note Text: ANESTHESIOLOGY DAY OF SURGERY NOTE : 1945 Procedure Information Date/Time: 03/15/23729 Procedure: ARTHROPLASTY REPLACE JOINT TOTAL HIP (Right: Hip) [place]: [place]01 [place] Surgeons: Marco Hernandez MD Estimated body mass index is 40.54 kg/m? as calculated from the following: Height as of this encounter: 168.9 cm (5' 6.5). Weight as of this encounter: 115.7 kg (255 lb). Most recent hematocrit and potassium results: Hematocrit 39.7 02/27/2023 Potassium 4.6 02/27/2023 Relevant Problems ANESTHESIA (+) 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 CARDIO (+) 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 (HCC) (+) Essential [...] and consent discussed: yes. Patient / Responsible Republican agrees to proceed: yes Patient / Surrogate [...] once daily. - (more content not included)... [facility] BRIEF OP NOTon 03-15-2023 BRIEF OP NOT HNO ID: [id number] Author: Marco Hernandez MD Service: Orthopaedic Surgery Author Type: Physician Type: Brief Op Note Filed: 03/15/2023 10:48 AM Note Text: BRIEF OPERATIVE / PROCEDURE NOTE LOG ID: [id number] SURGERY/PROCEDURE DATE: 03/15/2023 INCISION/PROCEDURE START TIME: 8:15 AM INCISION CLOSE/PROCEDURE END TIME: 10:40 AM SURGEON(S)/PROCEDURAL IST(S) AND BLOW MOLD OPERATOR(S): Surgeon(s) and Role: * Marco Hernandez MD - Primary Physician Redye Hand: Lety Haywodo PA-C Registered Nurse Nutrition Services Assistant: Georgette Arvizu RN SURGERY/PROCEDURE(S): Right total hip [...] DATE: March 15, 2023 TIME: 10:46 AM [facility] Christin 03-15-2023 [facility] HNO ID: [id number] Author: Christiano Loya PA-C Service: Orthopaedic Surgery Author Type: Physician Redye Hand Type: Discharge Summary Filed: 03/16/2023 11:54 AM [...] These instructions explain what you or your medication care manager need to do to continue your care at home or at another healthcare facility Please go over these instructions with your nurse and medication care manager. If you are not sure about something, [...] or flu-like (more content not included)... Normal [facility] CONSULTon 03-15-2023 CONSULT HNO ID: [id number] Author: Dillon Carrasquillo MD Service: General Internal Medicine Author Type: Physician Type: Consults Filed: 03/17/2023 1:44 PM Note Text: [facility]- Consultation KEMAL CANTU : 1945 AGE: 77 SEX: F [id number]: [facility] LOCATION: [address] ATTENDING PHYSICIAN: Marco Hernandez M.D. DATE OF [...] the hospital. Dillon Carrasquillo M.D. Internal Medicine SKJ:[id number] [facility] OPERATIVE NOon 03-15-2023 OPERATIVE NO HNO ID: [id number] Author: Marco Hernandez MD Service: Orthopaedic Surgery Author Type: Physician Type: Operative Report Filed: 03/15/2023 5:05 PM Note Text: OPERATIVE/PROCEDURE REPORT LOG ID: [id number] SURGERY/PROCEDURE DATE: 03/15/2023 INCISION/PROCEDURE START TIME: 8:15 AM INCISION CLOSE/PROCEDURE END TIME: 10:40 AM SURGEON(S)/PROCEDURAL IST(S) AND BLOW MOLD OPERATOR(S): Surgeon(s) and Role: * Marco Hernandez MD - Primary Physician Redye Hand: Lety Haywood PA-C (Nutrition Services Assistant) Registered Nurse: Georgette Arvizu RN SURGERY/PROCEDURE(S): Right [...] with a superior/anterior shelf with medially worn, [place] cup. There were minimal subchondral cysts along [...] appropriate cup positioning. I then selected a [place] Trident II, 50 mm acetabular, cluster cup and malleted this in with a nice scratch fit. A 30 mm screw was drilled for, measured and filled. I elected to go with a 36mm head. We then focused our attention on the femur. The remnant soft tissues o (more content not included)... Normal [facility] SURGICAL PATHOLOGYon 023 CASE REPORT Normal [facility] Comment on above: Order Comment: Speci men Type: SPECIMEN FROM BONE Ordering Facility: [facility] Address: [address] [place], [place] [id number] Result Comment: Surg [facility] Pathology Report Case: [id number] Authorizing Provider: Marco Hernandez MD Collected: 03/15/2023 08:29 AM Ordering Location: [facility] Surgery Received: 03/15/2023 11:05 AM Pathologist: Christine Rios MD Specimen: FEMORAL HEAD RIGHT Performed By: #### S #### [facility] CLIA [id number] [address] [place] [address] [place] CLINICAL HISTORY Normal [facility] Comment on above: Order Comment: Speci men Type: SPECIMEN FROM BONE Ordering Facility: [facility] Address: [address] [place] [address] Result Comment: Pre- op diagnosis: Primary osteoarthritis of right hip [M16.11] Performed By: #### S #### [facility] CLIA [id number] [address] [place] [address] [place] FINAL DIAGNOSIS Normal [facility] Comment on above: Order Comment: Speci men Type: SPECIMEN FROM BONE Ordering Facility: [facility] Address: [address] [place], [place] [phone] Result Comment: Yoselyn Washington emoral head, right, arthroplasty: - Degenerative joint disease. Performed By: #### S #### [facility] CLIA [id number] [address] [place] [address] [place] FINAL PERFORMING LAB Normal [facility] Comment on above: Order Comment: Speci men Type: SPECIMEN FROM BONE Ordering Facility: [facility] Address: [address] [place], [place] [id number] Result Comment: Diag nostic interpretation performed at [facility], [address] [place] [address] CLIA# [id number] Lining Baster: Guanakito Broderick M.D. Performed By: #### S #### [facility] CLIA [id number] [address] [place] [address] OF [facility] GROSS DESCRIPTION Normal [facility] Comment on above: Order Comment: Speci men Type: SPECIMEN FROM BONE Ordering Facility: [facility] Address: [address] [place] [address] Result Comment: Yoselyn Washington EMORAL HEAD RIGHT [...] There is no attached soft tissue present. Cash Surrender Calculator sections of weightbearing and nonweightbearing surfaces are submitted in cassette A1 following decalcification. TLA March 15, 2023 3:42 PM Gross examination performed at [facility], [address] [place] [address] Performed By: #### S #### [facility] CLIA [id number] [address] [place] [address] [place] THERAPY NTon 03-15-2023 THERAPY NT HNO ID: [id number] Author: Mariusz Hassan PT Service: Physical Therapy Author Type: Physical Therapist Type: Therapy (PT/OT/Speech/Resp) Filed: 03/15/2023 5:09 PM Note Text: Physical Therapy Evaluation SERVICE DATE: 03/15/2023 SERVICE TIME: 1532 to 1632 ROOM: [place] [address] Recommended Discharge Disposition: Home PT Recommended Discharge [...] Within Functional Limits Prior Functional Level 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 [facility] XR HIP 1V RTon 03-15-2023 XR [...] Epic for further discussion. IMPRESSION: As discussed Museum Educator: [facility] Transcribe Date/Time: Mar 15 2023 10:20A Dictated by : DEWAYNE HADDAD DO This examination was interpreted and the report reviewed and electronically signed by: DEWAYNE HADDAD DO on Mar 15 2023 10:25AM EST [id number] N [facility] XR PELVIS 1V APon 03-15-2023 XR [...] satisfactory appearing position. IMPRESSION: As in results Museum Educator: CHAR Transcribe Date/Time: Mar 15 2023 11:39A Dictated by : BAHMAN LIN MD This examination was interpreted and the report reviewed and electronically signed by: BAHMAN LIN MD on Mar 15 2023 11:40AM EST [id number] N [facility] CBC W Auto Differential pane l (Bld)on 02-27-2023 Basophils (Bld) [#/Vol] <0.11 k/uL C [facility] Basophils/100 WBC (Bld) 0.4 % C [facility] Differential cell count method Nom (Bld) Auto [facility] Eosinophils (Bld) [#/Vol] 0.10 10*3/uL <0.46 k/uL [facility] Eosinophils/100 WBC (Bld) 2.2 % [facility] Erythrocyte distribution width (RBC) [Ratio] 13.6 % 11.5 - 15.0 % [facility] Hematocrit (Bld) [Volume fraction] 39.7 % 36.0 - 46.0 % [facility] Hemoglobin (Bld) [Mass/Vol] 13.2 g/dL 11.5 - 15.5 g/dL [facility] Immature granulocytes (Bld) [#/Vol] <0.10 k/uL [facility] Immature granulocytes/100 WBC (Bld) 0.2 % [facility] Lymphocytes (Bld) [#/Vol] 1.16 10*3/uL 1.00 - 4.00 k/uL [facility] Lymphocytes/100 WBC (Bld) 26.0 % [facility] MCH (RBC) [Entitic mass] 29.4 pg 26.0 - 34.0 pg [facility] MCHC (RBC) [Mass/Vol] 33.2 g/dL 30.5 - 36.0 g/dL [facility] MCV (RBC) [Entitic vol] 88.4 fL 80.0 - 100.0 fL [facility] Monocytes (Bld) [#/Vol] 0.33 10*3/uL <0.87 k/uL [facility] Monocytes/100 WBC (Bld) 7.4 % C [facility] Neutrophils (Bld) [#/Vol] 2.85 10*3/uL 1.45 - 7.50 k/uL [facility] Neutrophils/100 WBC (Bld) 63.8 % [facility] Nucleated RBC (Bld) [#/Vol] <0.01 k/uL [facility] Nucleated RBC/100 WBC (Bld) [Ratio] 0.0 /100 WBC [facility] Platelet mean volume (Bld) [Entitic vol] 9.4 fL 9.0 - 12.7 fL [facility] Platelets (Bld) [#/Vol] 216 10*3/uL 150 - 400 k/uL [facility] RBC (Bld) [#/Vol] 4.49 10*6/uL 3.90 - 5.2 0 m/uL [facility] WBC (Bld) [#/Vol] 4.47 10*3/uL 3.70 - 11. 00 k/uL [facility] Comprehensive metabolic 2000 panelon 02-27-2023 Albumin [Mass/Vol] 4.2 g/dL 3.9 - 4.9 g/dL [facility] ALP [Catalytic activity/Vol] 92 U/L 34 - 123 U/L [facility] ALT [Catalytic activity/Vol] 17 U/L 7 - 38 U/L [facility] Anion gap [Moles/Vol] 10 mmol/L 9 - 18 mmol/L [facility] AST [Catalytic activity/Vol] 15 U/L 13 - 35 U/L [facility] Bilirubin [Mass/Vol] 0.3 mg/dL 0.2 - 1 .3 mg/dL [facility] Calcium [Mass/Vol] 10.0 mg/dL 8.5 - 10. 2 mg/dL [facility] Chloride [Moles/Vol] 101 mmol/L 97 - 10 5 mmol/L [facility] CO2 [Moles/Vol] 27 mmol/L 22 - 30 mmol/L [facility] Creatinine [Mass/Vol] 0.97 mg/dL High 0.58 - 0.96 mg/dL [facility] Estimated Glomerular Filtration Rate 60 mL/min/1.73m >=60 mL/min/1.73m [facility] Glucose [Mass/Vol] 92 mg/dL 74 - 99 mg/dL [facility] Potassium [Moles/Vol] 4.6 mmol/L 3.7 - 5.1 mmol/L [facility] Protein [Mass/Vol] 6.3 g/dL 6.3 - 8.0 g/dL [facility] Sodium [Moles/Vol] 138 mmol/L 136 - 144 mmol/L [facility] Urea nitrogen [Mass/Vol] 15 mg/dL 7 - 21 mg/dL [facility] CNPLucero 02-21-2023 [facility]phone [facility] KEMAL CANTU ([id number]) 1945 F Date Time Provider Department 02/21/23 MARCO HERNANDEZ During your visit today, we recorded the following information about you: RAKEL Maldonado 02/21/2023 3:24 PM Signed TOTAL JOINT COMPLETE CARE PROGRAM PRE-OPERATIVE TEACHING Service Date: 02/21/2023 Service Time: 3:10 PM Date of : 1945 Gender: female Date of Surgery: 03/15/23 Procedure: Right Total Hip Replacement Complete Care Program was discussed with the patient: Sheet Metal Superintendent Identification: Patient identified a medication care manager to help when discharged to home: son coming out from [place] on 03/18/23 , other son local Home [...] Patient plans discharge to go to her [facility] local until her other son flys [...] mouth once daily. - blood sugar diagnostic ([employer] ULTRA TEST) test strip Test blood sugar [...] iron) T (more content not included)... Normal [facility] SCREENINGon 01-10-2023 [facility] XR HIP GENERAL 3V PELV/AP/LA T RIGHTon 01-10-2023 [facility] Basic metabolic 2000 panelon 08-18-2022 Anion gap [Moles/Vol] 10 mmol/L 9 - 18 mmol/L [facility] Calcium [Mass/Vol] 9.7 mg/dL 8.5 - 10. 2 mg/dL [facility] Chloride [Moles/Vol] 102 mmol/L 97 - 10 5 mmol/L [facility] CO2 [Moles/Vol] 27 mmol/L 22 - 30 mmol/L [facility] Creatinine [Mass/Vol] 0.90 mg/dL 0.58 - 0.96 mg/dL [facility] Estimated Glomerular Filtration Rate 66 mL/min/1.73m >=60 mL/min/1.73m [facility] Glucose [Mass/Vol] 100 mg/dL High 74 - 99 mg/dL [facility] Potassium [Moles/Vol] 4.3 mmol/L 3.7 - 5.1 mmol/L [facility] Sodium [Moles/Vol] 139 mmol/L 136 - 144 mmol/L [facility] Urea nitrogen [Mass/Vol] 14 mg/dL 7 - 21 mg/dL [facility] HbA1c (Bld)on 08-18-2022 Average glucose Estimated from glycated hemoglobin (Bld) [Mass/Vol] 114 mg/dL [facility] HbA1c (Bld) [Mass fraction] 5.6 % 4.3 - 5.6 % [facility] TSH BLDon 08-18-2022 TSH Qn 2.970 m[IU]/L 0.270 - 4.200 mIU/L [facility] CBC W Auto Differential pane l (Bld)on 08-17-2022 Basophils (Bld) [#/Vol] 0.03 10*3/uL <0.11 k/uL [facility] Basophils/100 WBC (Bld) 0.6 % [facility] Differential cell count method Nom (Bld) Auto [facility] Eosinophils (Bld) [#/Vol] 0.14 10*3/uL <0.46 k/uL [facility] Eosinophils/100 WBC (Bld) 2.6 % [facility] Erythrocyte distribution width (RBC) [Ratio] 14.2 % 11.5 - 15.0 % [facility] Hematocrit (Bld) [Volume fraction] 40.8 % 36.0 - 46.0 % [facility] Hemoglobin (Bld) [Mass/Vol] 13.1 g/dL 11.5 - 15.5 g/dL [facility] Immature granulocytes (Bld) [#/Vol] <0.10 k/uL [facility] Immature granulocytes/100 WBC (Bld) 0.2 % [facility] Lymphocytes (Bld) [#/Vol] 1.26 10*3/uL 1.00 - 4.00 k/uL [facility] Lymphocytes/100 WBC (Bld) 23.7 % [facility] MCH (RBC) [Entitic mass] 28.4 pg 26.0 - 34.0 pg [facility] MCHC (RBC) [Mass/Vol] 32.1 g/dL 30.5 - 36.0 g/dL [facility] MCV (RBC) [Entitic vol] 88.3 fL 80.0 - 100.0 fL [facility] Monocytes (Bld) [#/Vol] 0.40 10*3/uL <0.87 k/uL [facility] Monocytes/100 WBC (Bld) 7.5 % C [facility] Neutrophils (Bld) [#/Vol] 3.48 10*3/uL 1.45 - 7.50 k/uL [facility] Neutrophils/100 WBC (Bld) 65.4 % [facility] Nucleated RBC (Bld) [#/Vol] <0.01 k/uL [facility] Nucleated RBC/100 WBC (Bld) [Ratio] 0.0 /100 WBC [facility] Platelet mean volume (Bld) [Entitic vol] 10.4 fL 9.0 - 12.7 fL [facility] Platelets (Bld) [#/Vol] 232 10*3/uL 150 - 400 k/uL [facility] RBC (Bld) [#/Vol] 4.62 10*6/uL 3.90 - 5.2 0 m/uL [facility] WBC (Bld) [#/Vol] 5.32 10*3/uL 3.70 - 11. 00 k/uL [facility] UA DIP, URINE (POC)on 2021 BILIRUBIN UA (POCT) Negative Negative Toby [facility] CLARITY UA (POCT) Clear [facility] COLOR UA (POCT) Yellow [facility] GLUCOSE UA (POCT) Negative Negative mg/dL [facility] HEMOGLOBIN/BLOOD UA (POCT) Negative Negative [facility] KETONE UA (POCT) Negative Negative mg/dL [facility] LEUKOCYTES UA (POCT) Small Abnormal Negative [facility] NITRITE UA (POCT) Negative Negative [facility] PH UA (POCT) 6.0 4.5 - 8.0 [facility] Protein Ql (U) Negative Negative mg/dL [facility] SPECIFIC GRAVITY UA (POCT) 1.010 1.005 - 1.030 [facility] UROBILINOGEN UA (POCT) 0.2 E.U./dL Eloise l E.U./dL [facility] UA DIP B/Oon 05-02-2022 Bilirubin, Urine Negative Neg [facility] Color/Appearance yellow/clear [facility] Glucose Ql (U) Negative Neg mg/dL [facility] Hemoglobin/Blood,Ur Negative Neg [facility] Ketones Ql (U) Negative Neg [facility] Leukocytes Negative Neg [facility] Nitrite Ql (U) Negative Neg [facility] pH (U) 6.5 [pH] 4.5 - 8.0 [facility] Protein.monoclonal (U) [Mass/Vol] Negative Neg mg/dL [facility] Specific [place], Ur 1.005 1.005 - 1.030 C [facility] Urobilinogen, Urine Normal Normal ( <1.1) EU [facility] No Panel Informationon 01-03 [facility] XR Lumbar spine 3 Viewson IMPRESSION: Degenerative changes as discussed Museum Educator: CHAR Transcribe Date/Time: Oct 04 2021 12:38P Dictated by : DEWAYNE HADDAD DO This examination was interpreted and the report reviewed and electronically signed by: DEWAYNE HADDAD DO on Oct 04 2021 12:39PM [facility] DIVISION OF RADIOLOGY * * *Final Report* [...] hip joint noted. DIVISION OF RADIOLOGY Provider, [facility] [place] - 10/04/2021 * * *Final Report* * [...] noted. IMPRESSION IMPRESSION: Degenerative changes as discussed Museum Educator: CHAR Transcribe Date/Time: Oct 04 2021 12:38P Dictated by : DEWAYNE HADDAD DO This examination was interpreted and the report reviewed and electronically signed by: DEWAYNE HADDAD DO on Oct 04 2021 12:39PM [facility] Radiology Study observation (narrative) [facility] XR Lumbar spine 3 ViewsOrder ed By: Ccf Provider on 10-04-2021 [facility] XR Pelvis and Hip - right AP and Lateral frogon 04-13-2021 IMPRESSION: 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 Museum Educator: CHAR Transcribe Date/Time: Apr 13 2021 11:15A Dictated by : GT TAVAREZ MD This examination was interpreted and the report reviewed and electronically signed by: GT TAVAREZ MD on Apr 13 2021 11:18AM [facility] DIVISION OF RADIOLOGY * * *Final Report* [...] spine. DIVISION OF RADIOLOGY Provider, Bala Tao [facility] - 04/13/2021 * * *Final Report* * [...] the RIGHT hip without acute osseous abnormality. Museum Educator: [facility] Transcribe Date/Time: Apr 13 2021 11:15A Dictated by : GT TAVAREZ MD This examination was interpreted and the report reviewed and electronically signed by: GT TAVAREZ MD on Apr 13 2021 11:18AM [facility] Radiology Study observation (narrative) [facility]ane [facility] XR Pelvis and Hip - right AP and Lateral frogOrdered By: Ccf Provider on 04-13-2021 [facility] ACT,Whole Bloodon 03-03-2021 ACT,Whole Blood 202 s High 90-134 [facility] Comment on above: Result Comment: ACTB O Performed by [employer] [facility] [employer] EliteCLIA ID: [id number] [place], [place] ACT testing is not intended for patients taking aprotonin, patients with hematocrits of <20% or >55%, patients using other types of anticoagulation medications, and patients with Lupus Anticoagulant. Performed By: #### A CTBO #### [facility] [address] [place] [address] ACT,Whole Blood 272 s High 90-134 [facility] Comment on above: Result Comment: ACTB O Performed by [employer] EliteCLIA ID: [id number] [place], [place] ACT testing is not intended for patients taking aprotonin, patients with hematocrits of <20% or >55%, patients using other types of anticoagulation medications, and patients with Lupus Anticoagulant. Performed By: #### B GLU #### [facility] [address] [address] Activated clotting timeOrder ed By: Fabian Lynch on 03-03-2021 Activated Clotting Time 272 s High 90 - 134 s S [facility] Work Phone: Comment on above: ACTBO Performed by [employer] EliteCLIA ID: [id number] [place], [place] ACT testing is not intended for patients taking aprotonin, patients with hematocrits of <20% or >55%, patients using other types of anticoagulation medications, and patients with Lupus Anticoagulant. Activated Clotting Time 202 s High 90 - 134 s S [facility] Work Phone: Comment on above: ACTBO Performed by [employer] EliteCLIA ID: [id number] [place], [place] ACT testing is not intended for patients taking aprotonin, patients with hematocrits of <20% or >55%, patients using other types of anticoagulation medications, and patients with Lupus Anticoagulant. Interpretation and review of laboratory results Abnormal [facility] Work Phone: Test Performed by [facility], [address] [place] [id number] [facility] Work Phone: [facility] Work Phone: CBCOrdered By: Sima Man on 03-03-2021 Hemoglobin.gastrointest inal spec 1 Ql (Stl) 12.8 g/dL 11.7 - 16.0 g/dL [facility] Work Phone: MCHC (RBC) [Mass/Vol] 34.0 % 32.0 - 36.0 % [facility] Work Phone: Platelet distribution width (Bld) [Ratio] 14.1 % 11.5 - 14.5 % [facility] Work Phone: Comp Metabolic Panelon 03-03 ALT [Catalytic activity/Vol] 78 U/L High 0-34 [facility] Comment on above: Result Comment: The ALT test is performed by an updated assay method. Please note that the reference intervals have been changed and are now sex specific. Performed By: #### B GLU #### [place] [address] [address] [place], [place] Calcium [Mass/Vol] 9.3 mg/dL Normal 8.4-10.4 [facility] Comment on above: Performed By: #### B GLU #### [place] [address] [address] [place], [place] Glucose [Mass/Vol] 147 mg/dL High 70-100 [facility] Comment on above: Performed By: #### B GLU #### [place] [address] [address] [place], [place] Urea nitrogen [Mass/Vol] 21 mg/dL High 7-20 [facility] Comment on above: Performed By: #### B GLU #### [place] [address] [address] [place], [place] ALP [Catalytic activity/Vol] 88 U/L Normal 38-126 [facility] Comment on above: Performed By: #### B GLU #### [place] [address] [address] [place], [place] Anion gap [Moles/Vol] 5 mmol/L Normal 3-13 [facility] Comment on above: Performed By: #### B GLU #### [facility] [address] [place], [place] AST [Catalytic activity/Vol] 60 U/L High 15-46 [facility] Comment on above: Performed By: #### B GLU #### [place] [address] [address] [place], [place] Bilirubin [Mass/Vol] 0.5 mg/dL Normal 0.2-1.3 [facility] Comment on above: Performed By: #### B GLU #### [facility] [address] [place], [place] CO2 [Moles/Vol] 27 mmol/L Normal 22-30 [facility] Comment on above: Performed By: #### B GLU #### [facility] [address] [place], [place] Creatinine [Mass/Vol] 0.97 mg/dL Normal 0.52-1.25 [facility] Comment on above: Performed By: #### B GLU #### [place] [address] [address] [place], [place] GFR/1.73 sq M.predicted among blacks MDRD (S/P/Bld) [Vol rate/Area] 66.0 mL/min/{1.73_m2} Normal >[address] [facility] Comment on above: Performed By: #### B GLU #### [place] [address] [address] [place], [place] GFR/1.73 sq M.predicted among non-blacks MDRD (S/P/Bld) [Vol rate/Area] 57.0 mL/min/{1.73_m2} Abnormal >60 [facility] Comment on above: Result Comment: KDIG [...] secretion. Performed By: #### B GLU #### [place] [address] [address] [place], [place] Protein [Mass/Vol] 6.2 g/dL Low 6.3-8.2 [facility] Comment on above: Performed By: #### B GLU #### [facility] [address] [place], [place] Chloride [Moles/Vol] 101 mmol/L Normal 98-107 [facility] Comment on above: Performed By: #### B GLU #### [facility] [address] [place], [place] Potassium [Moles/Vol] 4.2 mmol/L Normal 3.5-5.1 [facility] Comment on above: Performed By: #### B GLU #### [facility] [address] [place], [place] Sodium [Moles/Vol] 133 mmol/L Low 135-145 [facility] Services Comment on above: Performed By: #### B GLU #### [place] [address] [place], [place] Albumin [Mass/Vol] 3.5 g/dL Normal 3.5-5.0 [facility] Comment on above: Performed By: #### B GLU #### [facility] [address], [place] Comprehensive Metabolic Pane lOrdered By: Sima Man on 03-03-2021 Albumin [Mass/Vol] 3.5 g/dL 3.5 - 5.0 g/dL [facility] Work Phone: ALP (Bld) [Catalytic activity/Vol] 88 U/L 38 - 126 U/L [facility] Work Phone: ALT [Catalytic activity/Vol] 78 U/L High 0 - 34 U/L [facility] Work Phone: Comment on above: The ALT test is perf ormed by an updated assay method. Please note that the reference intervals have been changed and are now sex specific. Anion gap [Moles/Vol] 5 mmol/L 3 - 13 mmol/L [facility] Work Phone: AST [Catalytic activity/Vol] 60 U/L High 15 - 46 U/L [facility] Work Phone: Bilirubin [Mass/Vol] 0.5 mg/dL 0.2 - 1 .3 mg/dL [facility] Work Phone: Calcium [Mass/Vol] 9.3 mg/dL 8.4 - 10. 4 mg/dL [facility] Work Phone: Chloride [Moles/Vol] 101 mmol/L 98 - 10 7 mmol/L [facility] Work Phone: CO2 [Moles/Vol] 27 mmol/L 22 - 30 mmol/L [facility] Work Phone: Creatinine [Mass/Vol] 0.97 mg/dL 0.52 - 1.25 mg/dL [facility] Work Phone: EGFR IF NonAfrican Azerbaijani 57.0 mL/min Abnormal >60 [facility] Work Phone: [...] 6.2 g/dL Low 6.3 - 8.2 g/dL [facility] Work Phone: GFR/1.73 sq M.predicted among blacks MDRD (S/P/Bld) [Vol rate/Area] 66.0 mL/min/{1.73_m2} >60 [facility] Work Phone: Glucose [Mass/Vol] 147 mg/dL High 70 - 100 mg/dL [facility] Work Phone: Potassium [Moles/Vol] 4.2 mmol/L 3.5 - 5.1 mmol/L [facility] Work Phone: Sodium [Moles/Vol] 133 mmol/L Low 135 - 145 mmol/L [facility] Work Phone: Urea nitrogen (BldV) [Mass/Vol] 21 mg/dL High 7 - 20 mg/dL [facility] Work Phone: Glucose,Bedsideon 03-03-2021 Glucose [Mass/Vol] 133 mg/dL High 70-100 [facility] Comment on above: Result Comment: Test performed by glucose meter. Results may be 10%-15% lower than serum/plasma values. (CLIA ID [id number]) Performed By: #### B GLU #### [address] [place], [place] Glucose [Mass/Vol] 152 mg/dL High 70-100 [facility] Comment on above: Result Comment: Test performed by glucose meter. Results may be 10%-15% lower than serum/plasma values. (CLIA ID [id number]) Performed By: #### B GLU #### [facility] [place] [address], [place] Hemogramon 03-03-2021 Erythrocyte distribution width (RBC) [Ratio] 14.1 % Normal 11.5-14.5 [facility] Comment on above: Performed By: #### B GLU #### [place] [address] [address] [place], [place] Hemoglobin (Bld) [Mass/Vol] 12.8 g/dL Normal 11.7-16.0 [facility] Comment on above: Performed By: #### B GLU #### [address] [place], [place] MCHC 34.0 % Normal 32.0-36.0 [facility] Comment on above: Performed By: #### B GLU #### [place] [address] [address] [place], [place] HemogramOrdered By: Sima Man on 03-03-2021 Hematocrit (Bld) [Volume fraction] 37.6 % Normal 35.0-47.0 [facility] Work Phone: Comment on above: Performed By: #### B GLU #### [employer] [facility] [address] [place] [address] MCH (RBC) [Entitic mass] 29.2 pg Normal 26.0-34.0 [facility] Work Phone: Comment on above: Performed By: #### B GLU #### [facility] [address] [place] [address] MCV (RBC) [Entitic vol] 85.8 fL Normal 79.0-98.0 [facility] Work Phone: Comment on above: Performed By: #### B GLU #### [facility] [place] [place] [address] Platelet mean volume (Bld) [Entitic vol] 8.2 fL Normal 7.4-10.4 [facility] Work Phone: Comment on above: Performed By: #### B GLU #### [facility] [address] [place] [address] Platelets (Bld) [#/Vol] 202 10*3/uL Normal 140-440 [facility] Work Phone: Comment on above: Performed By: #### B GLU #### [facility] [place] [address] [place] [address] RBC (Bld) [#/Vol] 4.38 10*6/uL Normal 3.80-5.20 [facility] Work Phone: Comment on above: Performed By: #### B GLU #### [facility] [place] [address] [place] [address] WBC (Bld) [#/Vol] 6.1 10*3/uL Normal 3.6-10.7 [facility] Work Phone: Comment on above: Performed By: #### B GLU #### [facility] [address] [place] [address] Magnesiumon 03-03-2021 Magnesium [Mass/Vol] 2.2 mg/dL Normal 1.6-2.3 [facility] Comment on above: Performed By: #### B GLU #### [facility] [address] [place] [address] MagnesiumOrdered By: Sima Man on 03-03-2021 Magnesium [Mass/Vol] 2.2 mg/dL 1.6 - 2 .3 mg/dL [facility] Work Phone: No Panel InformationOrdered By: Sima Man on 03-03-2021 Interpretation and review of laboratory results Abnormal [facility] Work Phone: Test Performed by [facility], [address] [place] [address] [facility] Work Phone: [facility] Work Phone: POCT GlucoseOrdered By: Elena Lynch on 03-03-2021 Glucose [Mass/Vol] 133 mg/dL High 70 - 100 mg/dL [facility] Work Phone: Comment on above: Test performed by gl ucose meter. Results may be 10%-15% lower than serum/plasma values. (CLIA ID [id number]) Interpretation and review of laboratory results Abnormal [facility] Work Phone: Test Performed by [facility], [address] [place] [address] [facility] Work Phone: [facility] Work Phone: Glucose [Mass/Vol] 152 mg/dL High 70 - 100 mg/dL [facility] Work Phone: Comment on above: Test performed by gl ucose meter. Results may be 10%-15% lower than serum/plasma values. (CLIA ID [id number]) Interpretation and review of laboratory results Abnormal [facility] Work Phone: Test Performed by [facility], [address] [place] [address] [facility] Work Phone: [facility] Work Phone: Phosphoruson 03-03-2021 Phosphate [Mass/Vol] 4.7 mg/dL High 2.5-4.5 [facility] Comment on above: Performed By: #### B GLU #### [facility] [address] [place] [address] PhosphorusOrdered By: Dennis Man on 03-03-2021 Phosphate [Mass/Vol] 4.7 mg/dL High 2.5 - 4 .5 mg/dL [facility] Work Phone: TSH without ReflexOrdered By : Mariusz Yeh on 03-03-2021 TSH Qn 3.292 u[IU]/mL 0.465 - 4.680 u[IU]/mL [facility] Work Phone: Test Performed by [facility], [facility] [address] [place] [address] [facility] Work Phone: [facility] Work Phone: Thyroid Stim. Hormoneon 02-12 Thyroid Stim. Hormone 3.292 u[IU]/mL Normal 0.465-4.68 0 [facility] Comment on above: Performed By: #### B GLU #### [facility] [address] [place] [address] CARDIAC CATH NURSING LOGOrde red By: 3m Scanning on 03-02-2021 [facility] Work Phone: CBCOrdered By: Sima Man on 03-02-2021 Hematocrit (Bld) [Volume fraction] 38.5 % 35.0 - 47.0 % [facility] Work Phone: Hemoglobin.gastrointest inal spec 1 Ql (Stl) 13.0 g/dL 11.7 - 16.0 g/dL [facility] Work Phone: MCH (RBC) [Entitic mass] 29.1 pg 26.0 - 34.0 pg [facility] Work Phone: MCHC (RBC) [Mass/Vol] 33.8 % 32.0 - 36.0 % [employer] Work Phone: MCV (RBC) [Entitic vol] 86.1 fL 79.0 - 98.0 fL [employer] Work Phone: Platelet distribution width (Bld) [Ratio] 14.1 % 11.5 - 14.5 % [employer] Work Phone: Platelet mean volume (Bld) [Entitic vol] 8.2 fL 7.4 - 10.4 fL [employer] Work Phone: Platelets (Bld) [#/Vol] 221 10*3/uL 140 - 440 10*3/uL [employer] Work Phone: RBC (Bld) [#/Vol] 4.47 10*6/uL 3.80 - 5.2 0 10*6/uL [employer] Work Phone: WBC (Bld) [#/Vol] 6.6 10*3/uL 3.6 - 10.7 10*3/uL [employer] Work Phone: Test Performed by [facility], [address] [place] [address] [employer] Work Phone: [employer] Work Phone: CK WITH REFLEX CK-MBOrdered By: Sima Man on 03-02-2021 CK [Catalytic activity/Vol] 45 U/L 30 - 170 U/L [employer] Phone: [facility] Commenton 03-02-2021 [facility] Comment see below Normal [facility] Comment on above: Result Comment: Tota l CK less than 65 U/L. Fractionation not indicated. Performed By: #### B GLU #### [facility] [address] [place] [phone] [facility] CommentOrdered By: Hui Man on 03-02-2021 [facility] Comment see below [employer] Work Phone: Comment on above: Total CK less than 6 5 U/L. Fractionation not indicated. [facility] Screenon 03-02-2021 CK [Catalytic activity/Vol] 45 U/L Normal 30-170 [facility] Comment on above: Performed By: #### M BC3, CKMBS #### [facility] [address] [place] [address] Catheterization and angiogra phy procedure details panelOrdered By: Paulette Cobos on 03-02-2021 [facility] -------- CARDIAC CATHETERIZATION Patient: [...] SUMMARY: 75yo female diabetic who presented to [facility] with escalating angina. Cath at [facility] showed severely calcified focal steno sis of the mid RCA. 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 P CI of RCA unsuccessful due to inability to cross lesion with balloon. Pt transferred to [facility] for staged PCI of the RCA with [...] Pre-intervention intravascular ultrasound evaluation, using a .014 [place] catheter. Findings: extensive, 4-quadrant calcification; concentric plaque. 6. Balloon angioplasty. A 4 mm (D) x 12 mm (L), NC [employer] (more content not included)... [facility] Work Phone: Nicholas, [facility] Incoming Cardiology Results From [facility] - 03/02/2021 5:25 PM EDT [facility] [place] -------- CARDIAC CATHETERIZATION Patient: Kemal Cantu Procedure [...] SUMMARY: 75yo female diabetic who presented to [facility] with escalating angina. Cath at [facility] showed severely calcified focal steno sis of the mid RCA. 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 P CI of RCA unsuccessful due to inability to cross lesion with balloon. Pt transferred to [facility] for staged PCI of the RCA with [...] Pre-intervention intravascular ultrasound evaluation, using a .014 [place] catheter. Findings: extensive, 4-quadrant calcification; concentric plaque. 6. Balloon angioplasty. A 4 mm (D) x 12 mm (L), NC (more content not included)... [employer] Work Phone: [employer] Work Phone: Comp Metabolic Panelon 03-02 Potassium [Moles/Vol] 4.1 mmol/L Normal 3.5-5.1 [facility] Comment on above: Performed By: #### H EMOG, MG3, LIPD2, CMP3, PHOS3 #### [facility] [address], [place] ALP [Catalytic activity/Vol] 89 U/L Normal 38-126 [facility] Comment on above: Performed By: #### H EMOG, MG3, LIPD2, CMP3, PHOS3 #### [facility] [address], [place] ALT [Catalytic activity/Vol] 77 U/L High 0-34 [facility] Comment on above: Result Comment: The ALT test is performed by an updated assay method. Please note that the reference intervals have been changed and are now sex specific. Performed By: #### H EMOG, MG3, LIPD2, CMP3, PHOS3 #### [place] [address] [place], [place] Calcium [Mass/Vol] 9.3 mg/dL Normal 8.4-10.4 [facility] Comment on above: Performed By: #### H EMOG, MG3, LIPD2, CMP3, PHOS3 #### [facility] [address], [place] Glucose [Mass/Vol] 146 mg/dL High 70-100 [facility] Comment on above: Performed By: #### H EMOG, MG3, LIPD2, CMP3, PHOS3 #### [facility] [address], [place] Anion gap [Moles/Vol] 6 mmol/L Normal 3-13 [facility] Comment on above: Performed By: #### H EMOG, MG3, LIPD2, CMP3, PHOS3 #### [facility] [address], [place] AST [Catalytic activity/Vol] 57 U/L High 15-46 [facility] Comment on above: Performed By: #### H EMOG, MG3, LIPD2, CMP3, PHOS3 #### [facility] [address], [place] Bilirubin [Mass/Vol] 0.5 mg/dL Normal 0.2-1.3 [facility] Comment on above: Performed By: #### H EMOG, MG3, LIPD2, CMP3, PHOS3 #### [address] [address] CO2 [Moles/Vol] 28 mmol/L Normal 22-30 [facility] Comment on above: Performed By: #### H EMOG, MG3, LIPD2, CMP3, PHOS3 #### [address] [address] Creatinine [Mass/Vol] 0.95 mg/dL Normal 0.52-1.25 [facility] Comment on above: Performed By: #### H EMOG, MG3, LIPD2, CMP3, PHOS3 #### [address] [address] [place] [address] GFR/1.73 sq M.predicted among blacks MDRD (S/P/Bld) [Vol rate/Area] 67.7 mL/min/{1.73_m2} Normal >60 [facility] Comment on above: Performed By: #### H EMOG, MG3, LIPD2, CMP3, PHOS3 #### [address] [address] GFR/1.73 sq M.predicted among non-blacks MDRD (S/P/Bld) [Vol rate/Area] 58.4 mL/min/{1.73_m2} Abnormal >60 [facility] Comment on above: Result Comment: KDIG [...] H EMOG, MG3, LIPD2, CMP3, PHOS3 #### [facility] [address], [place] Protein [Mass/Vol] 6.2 g/dL Low 6.3-8.2 [facility] Comment on above: Performed By: #### H EMOG, MG3, LIPD2, CMP3, PHOS3 #### [place] [address] [place], [place] Urea nitrogen [Mass/Vol] 18 mg/dL Normal 7-20 [facility] Comment on above: Performed By: #### H EMOG, MG3, LIPD2, CMP3, PHOS3 #### [place] [address] [place], [place] Chloride [Moles/Vol] 101 mmol/L Normal 98-107 [facility] Comment on above: Performed By: #### H EMOG, MG3, LIPD2, CMP3, PHOS3 #### [place] [address] [place], [place] Sodium [Moles/Vol] 135 mmol/L Normal 135-145 [facility] Comment on above: Performed By: #### H EMOG, MG3, LIPD2, CMP3, PHOS3 #### [place] [address] [place], [place] Albumin [Mass/Vol] 3.6 g/dL Normal 3.5-5.0 [facility] Comment on above: Performed By: #### H EMOG, MG3, LIPD2, CMP3, PHOS3 #### [place] [address] [place], [place] Comprehensive Metabolic Pane lOrdered By: Sima Man on 03-02-2021 Albumin [Mass/Vol] 3.6 g/dL 3.5 - 5.0 g/dL [facility] Work Phone: ALP (Bld) [Catalytic activity/Vol] 89 U/L 38 - 126 U/L [facility] Work Phone: ALT [Catalytic activity/Vol] 77 U/L High 0 - 34 U/L [employer] Work Phone: Comment on above: The ALT [...] 0.5 mg/dL 0.2 - 1 .3 mg/dL [facility] Work Phone: Calcium [Mass/Vol] 9.3 mg/dL 8.4 - 10. 4 mg/dL [facility] Work Phone: Chloride [Moles/Vol] 101 mmol/L 98 - 10 7 mmol/L [facility] Work Phone: CO2 [Moles/Vol] 28 mmol/L 22 - 30 mmol/L [facility] Work Phone: Creatinine [Mass/Vol] 0.95 mg/dL 0.52 - 1.25 mg/dL [facility] Work Phone: EGFR IF NonAfrican [place]ij[place] 58.4 mL/min Abnormal >60 [facility] Work Phone: Comment on above: KDIGO guidelines [...] 6.2 g/dL Low 6.3 - 8.2 g/dL [employer] Work Phone: GFR/1.73 sq M.predicted among blacks MDRD (S/P/Bld) [Vol rate/Area] 67.7 mL/min/{1.73_m2} >60 [employer] Work Phone: Glucose [Mass/Vol] 146 mg/dL High 70 - 100 mg/dL [employer] Work Phone: Interpretation and review of laboratory results Abnormal [facility] Work Phone: Potassium [Moles/Vol] 4.1 mmol/L 3.5 - 5.1 mmol/L [employer] Work Phone: Sodium [Moles/Vol] 135 mmol/L 135 - 145 mmol/L [employer] Work Phone: Urea nitrogen (BldV) [Mass/Vol] 18 mg/dL 7 - 20 mg/dL [employer] Work Phone: Test Performed by [facility] [address] [employer] Work Phone: [employer] Work Phone: Diagnostic Catherizationon 0 03-02-2021 Diagnostic Catherization Patient Name: KEMAL CANTU [facility]#: [id number] [employer] ACCESSION EXAM DATE/TIME PROCEDURE ORDERING PROVIDER [phone] 03/02/2021 14:43 EDT Diagnostic Catherization MD SALLY, PAULETTE Parikh Reason For Exam (Diagnostic Catherization) PCI Report [facility] CARDI[facility]ULAR [place] -------- CARDIAC CATHETERIZATION Patient: Kemal Cantu Procedure [...] SUMMARY: 75yo female diabetic who presented to [facility] with escalating angina. Cath at [facility] showed severely calcified focal steno sis of the mid RCA. 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 P CI of RCA unsuccessful due to inability to cross lesion with balloon. Pt transferred to [facility] for staged PCI of the RCA with atherectomy. Pt amelia ded with aspirin and brilinta. IMPRESSIONS: 1. Successful IVUS-guided PCI of the focal calcified midRCA with CSI orbital atherectomy, PTCA, and deployment of the 4.0x28mm Xience LORI. 2. Mildly elevated LVEDP. RECOMMENDATIONS: 1. Patient management should include aggressive risk factor [employer] Report modification. 2. Patient management should include [...] Pre-intervention intravascular ultrasound evaluation, using a .[address] (more content not included)... 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 : 1945 Requested By: SIMA MAN Order Number: [id number] Reading MD: Ruben Sargent Measurements Intervals [place] Rate: 77 P: 4 NC: 231 QRS: -35 QRSD: 144 T: 95 QT: 396 QTc: 450 Interpretive Statements Sinus rhythm Prolonged NC interval Left bundle branch block ST elevation secondary to IVCD Electronically Signed On 03-02-2021 13:01:21 EDT by Ruben PADILLA Work Phone: Nicholas, [facility] Incoming Cardiology Results From [facility] - 03/02/2021 1:02 PM EDT [facility] Test Date: 2021-03-01 Pat Name: KEMAL CANTU Department: 1[facility] Room: [facility] Gender: F 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 Results may be 10%-15% lower than serum/plasma values. (CLIA ID [id number]) Performed By: #### B GLU #### [facility] [address] [place] [address] Glucose [Mass/Vol] 124 mg/dL High [address] [facility] Comment on above: Result Comment: Test performed by glucose meter. Results may be 10%-15% lower than serum/plasma values. (CLIA ID [id number]) Performed By: #### B GLU #### [facility] [address] [place] [address] Glucose [Mass/Vol] 131 mg/dL High [address] [facility] Comment on above: Result Comment: Test performed by glucose meter. Results may be 10%-15% lower than serum/plasma values. (CLIA ID [id number]) Performed By: #### B GLU #### [facility] [address] [place] [address] Glucose [Mass/Vol] 164 mg/dL High 70-100 [facility] Comment on above: Result Comment: Test performed by glucose meter. Results may be 10%-15% lower than serum/plasma values. (CLIA ID [id number]) Performed By: #### B GLU #### [address] [address] [place], [place] Glucose [Mass/Vol] 188 mg/dL High 70-100 [facility] Comment on above: Result Comment: Test performed by glucose meter. Results may be 10%-15% lower than serum/plasma values. (CLIA ID [id number]) Performed By: #### B GLU #### [address] Hemogramon 03-02-2021 Erythrocyte distribution width (RBC) [Ratio] 14.1 % Normal 11.5-14.5 [facility] Comment on above: Performed By: #### H EMOG, MG3, LIPD2, CMP3, PHOS3 #### [address] Hematocrit (Bld) [Volume fraction] 38.5 % Normal 35.0-47.0 [facility] Comment on above: Performed By: #### H EMOG, MG3, LIPD2, CMP3, PHOS3 #### [address] Hemoglobin (Bld) [Mass/Vol] 13.0 g/dL Normal 11.7-16.0 [facility] Comment on above: Performed By: #### H EMOG, MG3, LIPD2, CMP3, PHOS3 #### [address] MCH (RBC) [Entitic mass] 29.1 pg Normal 26.0-34.0 [facility] Comment on above: Performed By: #### H EMOG, MG3, LIPD2, CMP3, PHOS3 #### [address] MCHC 33.8 % Normal 32.0-36.0 [facility] Comment on above: Performed By: #### H EMOG, MG3, LIPD2, CMP3, PHOS3 #### [address] [address] [place], [place] MCV (RBC) [Entitic vol] 86.1 fL Normal 79.0-98.0 [facility] Comment on above: Performed By: #### H EMOG, MG3, LIPD2, CMP3, PHOS3 #### [facility] [address], [place] Platelet mean volume (Bld) [Entitic vol] 8.2 fL Normal 7.4-10.4 [facility] Comment on above: Performed By: #### H EMOG, MG3, LIPD2, CMP3, PHOS3 #### [place] [address] [place], [place] Platelets (Bld) [#/Vol] 221 10*3/uL Normal 140-440 [facility] Comment on above: Performed By: #### H EMOG, MG3, LIPD2, CMP3, PHOS3 #### [place] [address] [place], [place] RBC (Bld) [#/Vol] 4.47 10*6/uL Normal 3.80-5.20 [facility] Comment on above: Performed By: #### H EMOG, MG3, LIPD2, CMP3, PHOS3 #### [place] [address] [place], [place] WBC (Bld) [#/Vol] 6.6 10*3/uL Normal 3.6-10.7 [facility] Comment on above: Performed By: #### H EMOG, MG3, LIPD2, CMP3, PHOS3 #### [place] [address] [place], [place] Lipid Panelon 03-02-2021 Chol/HDL 3 Normal [facility] Comment on above: Result Comment: Ref Range: < 3 Low Risk for CHD 3-6 Mod Risk for CHD > 6 High Risk for CHD Performed By: #### H EMOG, MG3, LIPD2, CMP3, PHOS3 #### [place] [address] [place], [place] Cholesterol in HDL [Mass/Vol] 45 mg/dL Normal 40-60 [facility] Comment on above: Performed By: #### H EMOG, MG3, LIPD2, CMP3, PHOS3 #### [employer] [facility] [address], [place] Low Density Lipoprotein 79 mg/dL Normal <100 [facility] Comment on above: Performed By: #### H EMOG, MG3, LIPD2, CMP3, PHOS3 #### [facility] [address], [place] Triglyceride [Mass/Vol] 127 mg/dL Normal <150 [facility] Comment on above: Performed By: #### H EMOG, MG3, LIPD2, CMP3, PHOS3 #### [facility] [address], [place] Cholesterol [Mass/Vol] 149 mg/dL Normal < 200 [facility] Comment on above: Performed By: #### H EMOG, MG3, LIPD2, CMP3, PHOS3 #### [facility] [place] [address] [address] [place], [place] Lipid panel - fastingOrdered By: Sima Man on 03-02-2021 Cholesterol [Mass/Vol] 149 mg/dL <200 [facility] Work Phone: Cholesterol in HDL [Mass/Vol] 45 mg/dL 40 - 60 mg/dL [facility] Work Phone: Cholesterol in LDL [Mass/Vol] 79 mg/dL <100 [facility] Work Phone: Cholesterol.total/Anna sterol in HDL [Mass ratio] 3 {ratio} [facility] Work Phone: Comment on above: Ref Range: < 3 Low Risk for CHD 3-6 Mod Risk for CHD > 6 High Risk for CHD Triglyceride [Mass/Vol] 127 mg/dL <150 [facility] Work Phone: Magnesiumon 03-02-2021 Magnesium [Mass/Vol] 1.8 mg/dL Normal 1.6-2.3 [facility] Comment on above: Performed By: #### H EMOG, MG3, LIPD2, CMP3, PHOS3 #### [facility] [address] [id number] MagnesiumOrdered By: Sima Man on 03-02-2021 Magnesium [Mass/Vol] 1.8 mg/dL 1.6 - 2 .3 mg/dL [facility] Work Phone: No Panel InformationOrdered By: Sima Man on 03-02-2021 Test Performed by [facility], [address] [place] [address] [facility] Work Phone: [facility] Work Phone: Test Performed by [facility], [address] [place] [address] [facility] Work Phone: [facility] Work Phone: POCT GlucoseOrdered By: Elena Lynch on 03-02-2021 Glucose [Mass/Vol] 146 mg/dL High 70 - 100 mg/dL [facility] Work Phone: Comment on above: Test performed by gl ucose meter. Results may be 10%-15% lower than serum/plasma values. (CLIA ID [id number]) Interpretation and review of laboratory results Abnormal [facility] Work Phone: Test Performed by [facility], [address] [place] [address] [facility] Work Phone: [facility] Work Phone: Glucose [Mass/Vol] 124 mg/dL High 70 - 100 mg/dL [facility] Work Phone: Comment on above: Test performed by gl ucose meter. Results may be 10%-15% lower than serum/plasma values. (CLIA ID [id number]) Interpretation and review of laboratory results Abnormal [employer] Work Phone: Test Performed by [facility], [address] [place] [address] [facility] Work Phone: [facility] Work Phone: Glucose [Mass/Vol] 131 mg/dL High 70 - 100 mg/dL [facility] Work Phone: Comment on above: Test performed by gl ucose meter. Results may be 10%-15% lower than serum/plasma values. (CLIA ID [id number]) Interpretation and review of laboratory results Abnormal [facility] Work Phone: Test Performed by [facility], [facility] [place] [address] [facility] Work Phone: [facility] Work Phone: Glucose [Mass/Vol] 164 mg/dL High 70 - 100 mg/dL [facility] Work Phone: Comment on above: Test performed by gl ucose meter. Results may be 10%-15% lower than serum/plasma values. (CLIA ID [id number]) Interpretation and review of laboratory results Abnormal [facility] Work Phone: Test Performed by [facility], [facility] [place] [address] [facility] Work Phone: [facility] Work Phone: Phosphoruson 03-02-2021 Phosphate [Mass/Vol] 4.3 mg/dL Normal 2.5-4.5 [facility] Comment on above: Performed By: #### H EMOG, MG3, LIPD2, CMP3, PHOS3 #### [facility] [address] [place] [address] PhosphorusOrdered By: Dennis Man on 03-02-2021 Phosphate [Mass/Vol] 4.3 mg/dL 2.5 - 4 .5 mg/dL [facility] Work Phone: TroponinOrdered By: Felicita Whitman on 03-02-2021 Interpretation and review of laboratory results Abnormal [facility] Work Phone: Troponin I.cardiac [Mass/Vol] 0.098 ng/mL High 0.000 - 0.034 ng/mL [facility] Work Phone: Comment on above: . Test Performed by [facility], [facility] [place] [address] [facility] Work Phone: [employer] Work Phone: Troponin Ion 03-02-2021 Troponin I.cardiac [Mass/Vol] 0.098 ng/mL High 0.000-0.034 [facility] Comment on above: Result Comment: . Performed By: #### B GLU #### [facility] [address] [place] [address] VL Arterial Duplex US Upper Ext Righton 03-02-2021 VL Arterial Duplex US Upper Ext Right Patient Name: KEMAL CANTU Ultrasound ACCESSION EXAM DATE/TIME PROCEDURE ORDERING PROVIDER [id number] 03/02/2021 07:47 EDT VL Arterial Duplex US MD MAGDA, SIMA Upper Ext Right CPT code 93208 Reason For Exam (VL Arterial Duplex US Upper Ext Right) Concern for hematoma R wrist Report [facility] -------- Right Upper Extremity Kashia Arterial Duplex Report Patient Alondra : 1945 Study 03/02/2021 Name: Kemal Sesay (75yrs) Date: Patient [id number] Age: 75 Account: [id number] ID: Gender: F Loc: BP: Ordering Physician: Sima Man Congressional Representative: Jytoi Gama RVT Interpreting Physician: Bahman Salamanca MD -------- Location: [facility] -------- Indications: Right wrist swelling status post radial artery access.. -------- Preliminary result was reported to Sima Man MD , by Jyoti Gama Key, [facility] , on 03/02/2021 , at 07:53 AM. [...] Images were obtained Ultrasound Report using a [employer] S8 vascular ultrasound machine. -------- Arterial flow: [...] BAHMAN SALAMANCA Cardiovascular ACCESSION EXAM DATE/TIME PROCEDURE [id number] 03/02/2021 07:47 EDT VL Arterial Duplex US Upper Ext Right CPT code 08496 Reason For Exam (VL Arterial Duplex US Upper Ext Right) Concern for hematoma R wrist Report [facility] -------- Right Upper Extremity Kashia Arterial Duplex Report Patient Alondra, : 1945 Study 03/02/2021 Name: Kemal Sesay (75yrs) Date: Patient [id number] Age: 75 Account: [id number] ID: Gender: F Loc: BP: Ordering Physician: Sima Man Congressional Representative: Jyoti Gama T Interpreting Physician: Bahman Salamanca MD Cardiovascular Report -------- Location: [facility] -------- Indications: Right wrist swelling status post radial artery access.. -------- Preliminary result was reported to Sima Man MD , by Jyoti Gama Key, [facility] , on 03/02/2021 , at 07:53 AM. [...] supine position. Images were obtained using a [employer] S8 vascular ultrasound machine. (more content not included)... Normal [facility] VL DUP UPPER EXTREMITY ARTER IES RIGHTOrdered By: Sima Man on 03-02-2021 [facility] -------- Right Upper Extremity Kashia Arterial Duplex Report Patient Alondra, : 1945 Study 03/02/2021 Name: Kemal Sesay (75yrs) Date: Patient [id number] Age: 75 Account: [id number] ID: Gender: F Loc: BP: Ordering Physician: Sima Man Congressional Representative: Jyoti Gama RVT Interpreting Physician: Bahman Salamanca MD -------- Location: [facility] -------- Indications: Right wrist swelling status post radial artery access.. -------- Preliminary result was reported to Sima Man MD , by Jyoti Gama RVT, [facility] , on 03/02/2021 , at 07:53 AM. [...] supine position. Images were obtained using a [employer] S8 vascular ultrasound machine. -------- Arterial flow: [...] signed by Bahman Salamanca MD 03/02/2021 08:24 [employer] Work Phone: Nicholas, [facility] Incoming Cardiology Results From [employer] - 03/02/2021 8:24 AM EDT [facility] -------- Right Upper Extremity Kashia Arterial Duplex Report Patient Alondra : 1945 Study 03/02/2021 Name: Kemal Sesay (75yrs) Date: Patient [id number] Age: 75 Account: [id number] ID: Gender: F Loc: BP: Ordering Physician: Sima Man Congressional Representative: Jyoti Gama RVT Interpreting Physician: Bahman Salamanca MD -------- Location: [facility] -------- Indications: Right wrist swelling status post radial artery access.. -------- Preliminary result was reported to Sima aMn MD , by Jyoti Gama Key, [facility] , on 03/02/2021 , at 07:53 AM. [...] supine position. Images were obtained using a [employer] S8 vascular ultrasound machine. -------- Arterial flow: [...] signed by Bahman Salamanca MD 03/02/2021 08:24 [employer] Work Phone: [employer] Work Phone: CBCOrdered By: Sima Man on 03-01-2021 Hematocrit (Bld) [Volume fraction] 39.6 % 35.0 - 47.0 % [employer] Work Phone: Hemoglobin.gastrointest inal spec 1 Ql (Stl) 13.5 g/dL 11.7 - 16.0 g/dL [facility] Work Phone: MCH (RBC) [Entitic mass] 29.4 pg 26.0 - 34.0 pg [employer] [facility] Work Phone: MCHC (RBC) [Mass/Vol] 34.1 % 32.0 - 36.0 % [employer] [facility] Work Phone: MCV (RBC) [Entitic vol] 86.2 fL 79.0 - 98.0 fL [employer] Work Phone: Platelet distribution width (Bld) [Ratio] 14.2 % 11.5 - 14.5 % [employer] [facility] Work Phone: Platelet mean volume (Bld) [Entitic vol] 7.9 fL 7.4 - 10.4 fL [employer] [facility] Work Phone: Platelets (Bld) [#/Vol] 201 10*3/uL 140 - 440 10*3/uL [employer] [facility] Work Phone: RBC (Bld) [#/Vol] 4.59 10*6/uL 3.80 - 5.2 0 10*6/uL [employer] Work Phone: WBC (Bld) [#/Vol] 5.4 10*3/uL 3.6 - 10.7 10*3/uL [employer] Work Phone: Test Performed by [facility], [address] [place] [address] [employer] Work Phone: [employer] Work Phone: CK with Reflex CK-MBOrdered By: Sima Man on 03-01-2021 CK [Catalytic activity/Vol] 39 U/L 30 - 170 U/L [employer] Work Phone: [facility] Commenton 03-01-2021 [facility] Comment see below Normal [facility] Comment on above: Result Comment: Tota l CK less than 65 U/L. Fractionation not indicated. Performed By: #### B GLU #### [facility] [address] [place] [phone] [facility] CommentOrdered By: Hui Man on 03-01-2021 [facility] Comment see below [employer] Phone: Comment on above: Total CK less than 6 5 U/L. Fractionation not indicated. [facility] Screenon 03-01-2021 CK [Catalytic activity/Vol] 39 U/L Normal 30-170 [facility] Comment on above: Performed By: #### B GLU #### [facility] [address] [place] [phone] CR Chest Portableon 03-01-20 21 CR Chest Portable Patient Name: KEMAL CANTU Diagnostic Radiology ACCESSION EXAM DATE/TIME PROCEDURE ORDERING PROVIDER [id number] 03/01/2021 17:40 EDT CR Chest Portable MD MAGDA, SIMA CPT code 24622 Reason For Exam (CR Chest Portable) Chest [...] Transcribed Date and Time: 03/01/2021 7:39 Normal [facility] Comp Metabolic Panelon 03-01 ALP [Catalytic activity/Vol] 91 U/L Normal 38-126 [facility] Comment on above: Performed By: #### B GLU #### [address] [address] [place], [place] ALT [Catalytic activity/Vol] 78 U/L High 0-34 [facility] Comment on above: Result Comment: The ALT test is performed by an updated assay method. Please note that the reference intervals have been changed and are now sex specific. Performed By: #### B GLU #### [facility] [address], [place] Calcium [Mass/Vol] 9.3 mg/dL Normal 8.4-10.4 [facility] Comment on above: Performed By: #### B GLU #### [address] [address] [place], [place] Glucose [Mass/Vol] 156 mg/dL High 70-100 [facility] Comment on above: Performed By: #### B GLU #### [facility] [address] [place], [place] Urea nitrogen [Mass/Vol] 17 mg/dL Normal 7-20 [facility] Comment on above: Performed By: #### B GLU #### [address] [address] [place], [place] Anion gap [Moles/Vol] 5 mmol/L Normal 3-13 [facility] Comment on above: Performed By: #### B GLU #### [address] [address] [place], [place] AST [Catalytic activity/Vol] 60 U/L High 15-46 [facility] Comment on above: Performed By: #### B GLU #### [address] [address] [place], [place] Bilirubin [Mass/Vol] 0.4 mg/dL Normal 0.2-1.3 [facility] Comment on above: Performed By: #### B GLU #### [address] [address] [place], [place] CO2 [Moles/Vol] 30 mmol/L Normal 22-30 [facility] Comment on above: Performed By: #### B GLU #### [address] Creatinine [Mass/Vol] 1.00 mg/dL Normal 0.52-1.25 [facility] Comment on above: Performed By: #### B GLU #### [address] GFR/1.73 sq M.predicted among blacks MDRD (S/P/Bld) [Vol rate/Area] 63.6 mL/min/{1.73_m2} Normal >60 [facility] Comment on above: Performed By: #### B GLU #### [address] GFR/1.73 sq M.predicted among non-blacks MDRD (S/P/Bld) [Vol rate/Area] 54.9 mL/min/{1.73_m2} Abnormal >[address] [facility] Comment on above: Result Comment: KDIG [...] secretion. Performed By: #### B GLU #### [facility] [address] [place] [address] Protein [Mass/Vol] 6.6 g/dL Normal 6.3-8.2 [facility] Comment on above: Performed By: #### B GLU #### [address] [place] [address] Potassium [Moles/Vol] 3.9 mmol/L Normal 3.5-5.1 [facility] Comment on above: Performed By: #### B GLU #### [address] [place] [address] Sodium [Moles/Vol] 136 mmol/L Normal 135-145 [facility] Comment on above: Performed By: #### B GLU #### [address] [place] [address] Albumin [Mass/Vol] 3.8 g/dL Normal 3.5-5.0 [facility] Comment on above: Performed By: #### B GLU #### [address] [address] [place], [place] Chloride [Moles/Vol] 101 mmol/L Normal 98-107 [facility] Comment on above: Performed By: #### B GLU #### [address] [place] [address] Comprehensive Metabolic Pane lOrdered By: Sima Man on 03-01-2021 Albumin [Mass/Vol] 3.8 g/dL 3.5 - 5.0 g/dL [facility] Work Phone: ALP (Bld) [Catalytic activity/Vol] 91 U/L 38 - 126 U/L [facility] Work Phone: ALT [Catalytic activity/Vol] 78 U/L High 0 - 34 U/L [facility] Work Phone: Comment on above: The [...] mg/dL [facility] Work Phone: EGFR IF NonAfrican Azerbaijani 54.9 mL/min Abnormal >60 [facility] Work Phone: [...] MDRD (S/P/Bld) [Vol rate/Area] 63.6 mL/min/{1.73_m2} >60 [facility] Work Phone: Glucose [Mass/Vol] 156 mg/dL High 70 - 100 mg/dL [facility] Work Phone: Interpretation and review of laboratory results Abnormal [facility] Work Phone: Potassium [Moles/Vol] 3.9 mmol/L 3.5 - 5.1 mmol/L [facility] Work Phone: Sodium [Moles/Vol] 136 mmol/L 135 - 145 mmol/L [facility] Work Phone: Urea nitrogen (BldV) [Mass/Vol] 17 mg/dL 7 - 20 mg/dL [facility] Work Phone: Hemogramon 03-01-2021 Erythrocyte distribution width (RBC) [Ratio] 14.2 % Normal 11.5-14.5 [facility] Comment on above: Performed By: #### B GLU #### [facility] [address] [address] [place], [place] Hematocrit (Bld) [Volume fraction] 39.6 % Normal 35.0-47.0 [facility] Comment on above: Performed By: #### B GLU #### [address] [address] [place], [place] Hemoglobin (Bld) [Mass/Vol] 13.5 g/dL Normal 11.7-16.0 [facility] Comment on above: Performed By: #### B GLU #### [facility] [address] [place], [place] MCH (RBC) [Entitic mass] 29.4 pg Normal 26.0-34.0 [facility] Comment on above: Performed By: #### B GLU #### [facility] [address], [place] MCHC 34.1 % Normal 32.0-36.0 [facility] Comment on above: Performed By: #### B GLU #### [facility] [address] [place] [address] MCV (RBC) [Entitic vol] 86.2 fL Normal 79.0-98.0 [facility] Comment on above: Performed By: #### B GLU #### [facility] [address] [place] [address] Platelet mean volume (Bld) [Entitic vol] 7.9 fL Normal 7.4-10.4 [facility] Comment on above: Performed By: #### B GLU #### [address] [place] [address] Platelets (Bld) [#/Vol] 201 10*3/uL Normal 140-440 [facility] Comment on above: Performed By: #### B GLU #### [address] [address] [place] [address] RBC (Bld) [#/Vol] 4.59 10*6/uL Normal 3.80-5.20 [facility] Comment on above: Performed By: #### B GLU #### [address] [place] [address] WBC (Bld) [#/Vol] 5.4 10*3/uL Normal 3.6-10.7 [facility] Comment on above: Performed By: #### B GLU #### [address] [place] [address] Magnesiumon 03-01-2021 Magnesium [Mass/Vol] 1.8 mg/dL Normal 1.6-2.3 [facility] Comment on above: Performed By: #### B GLU #### [address] [place] [address] MagnesiumOrdered By: Sima Man on 03-01-2021 Magnesium [Mass/Vol] 1.8 mg/dL 1.6 - 2 .3 mg/dL [facility] Work Phone: No Panel InformationOrdered By: Sima Man on 03-01-2021 Test Performed by [facility], [facility] [place] [address] [facility] Work Phone: [facility] Work Phone: POCT GlucoseOrdered By: Elena Lynch on 03-01-2021 Glucose [Mass/Vol] 188 mg/dL High 70 - 100 mg/dL [facility] Work Phone: Comment on above: Test performed by gl ucose meter. Results may be 10%-15% lower than serum/plasma values. (CLIA ID [id number]) Interpretation and review of laboratory results Abnormal [facility] Work Phone: Test Performed by [facility], [address] [place] [address] [facility] Work Phone: [facility] Work Phone: Phosphoruson 03-01-2021 Phosphate [Mass/Vol] 3.9 mg/dL Normal 2.5-4.5 [facility] Comment on above: Performed By: #### B GLU #### [facility] [address] [place] [address] PhosphorusOrdered By: Dennis Man on 03-01-2021 Phosphate [Mass/Vol] 3.9 mg/dL 2.5 - 4 .5 mg/dL [facility] Work Phone: TroponinOrdered By: Sima Man on 03-01-2021 Troponin I.cardiac [Mass/Vol] 0.019 ng/mL 0.000 - 0.034 ng/mL [facility] Work Phone: Comment on above: . Test Performed by [facility], [address] [place] [address] [facility] Work Phone: [facility] Work Phone: Troponin Ion 03-01-2021 Troponin I.cardiac [Mass/Vol] 0.019 ng/mL Normal 0.000-0.034 [facility] Comment on above: Result Comment: . Performed By: #### B GLU #### [facility] [place] [address] XR CHEST PORTABLEOrdered By: Sima Man on 03-01-2021 Patient Name: KEMAL CANTU Diagnostic Radiology ACCESSION EXAM DATE/TIME PROCEDURE ORDERING PROVIDER [id number] 03/01/2021 17:40 EDT CR Chest Portable MD MAGDA, SIMA CPT code 32494 Reason For Exam (CR Chest Portable) Chest [...] No acute process. Report Dictated on Workstation: [id number] --- Final --- Dictated: 03/01/2021 7:39 pm Dictating Physician: DO COVARRUBIAS ALFRED Signed Date and Time: 03/01/2021 7:39 pm Signed by: DO COVARRUBIAS ALFRED Transcribed Date and Time: 03/01/2021 7:39 [facility] Work Phone: Nicholas, Radha Incoming Radiology Results From [facility] - 03/01/2021 7:41 PM EDT Patient Name: KEMAL CANTU Diagnostic Radiology ACCESSION EXAM DATE/TIME PROCEDURE ORDERING PROVIDER [id number] 03/01/2021 17:40 EDT CR Chest Portable MD MAGDA, SIMA CPT code 12319 Reason For Exam (CR Chest Portable) Chest [...] one projection. Recommend correlation with clinical exam. Museum Educator: CHAR Transcribe Date/Time: Jul 22 2020 1:54P Dictated by : KRUNAL STILL MD This examination was interpreted and the report reviewed and electronically signed by: KRUNAL STILL MD on Jul 22 2020 1:58PM [facility] DIVISION OF RADIOLOGY Radiology Study observation (narrative) [facility] No Panel InformationOrdered By: Ccf Provider on 07-22-2020 [facility] XR Facial bones 3 Viewson * [...] Joint spaces and articular surfaces are preserved. [facility] DIVISION OF RADIOLOGY [facility], [facility] * * *Final Report* * [...] one projection. Recommend correlation with clinical exam. Museum Educator: [facility] Transcribe Date/Time: Jul 22 2020 1:54P Dictated by : KRUNAL STILL MD This examination was interpreted and the report reviewed and electronically signed by: KRUNAL STILL MD on Jul 22 2020 1:58PM EST [facility] XR Hand - left PA and [...] are preserved. [facility] DIVISION OF RADIOLOGY Provider, [facility] - 07/22/2020 * * *Final Report* * [...] one projection. Recommend correlation with clinical exam. Museum Educator: CHAR Transcribe Date/Time: Jul 22 2020 1:54P Dictated by : KRUNAL STILL MD This examination was interpreted and the report reviewed and electronically signed by: KRUNAL STILL MD on Jul 22 2020 1:58PM EST [facility] CORONAVIRUS PCR [CCL]on COVID 19 Result PIN DRAFTER OPERATOR Negative Normal [facility] Comment on above: Result Comment: Nega tive for COVID19 (SARS CoV2) by PCR. This test was developed and its performance characteristics determined by [facility]'s [facility] [place]. This test has been authorized by FDA under an Emergency Use Authorization (EUA). This test has been validated in accordance with the FDA's Guidance Document Policy for Diagnostics Testing in Laboratories Certified to Perform High Complexity Testing under CLIA prior to Emergency use Authorization for Coronavirus Disease 2019 during the Public Health Emergency issued on October 12, 2019. [facility] [address] [place] [address] Guanakito Broderick III, M.D. [id number] Performed By: #### 2 [id number] #### [facility],[address] [place] [address] COVID 19 Source PIN DRAFTER OPERATOR Nasopharyngeal Swab Normal [facility] Comment on above: Result Comment: Abby ected on 06/13 AT 1914: Previously reported as PIN DRAFTER OPERATOR SWAB Performed By: #### 2 [id number] #### [facility],[address] [place] [address] Coronavirus 2019 0 COVID 19 Result PIN DRAFTER OPERATOR Normal Negative for COVID19 (SARS CoV2) by PCR. [facility] Comment on above: Result Comment: Nega tive for This test was developed and its performance characteristics determined by [facility]'s [facility] [place]. This test has been authorized by FDA [...] developed and its performance characteristics determined by [facility] [place]. This test has been authorized by FDA [...] developed and its performance characteristics determined by [facility] [place]. This test has been authorized by FDA [...] 2019. Performed By: #### C OVID #### [facility] [address] [place], [place] [address] Coronavirus 2019 0 COVID 19 Source PIN DRAFTER OPERATOR Normal [facility] Comment on above: Result Comment: Naso pharyngeal Corrected on 06/13 AT 1914: Previously reported as PIN DRAFTER OPERATOR SWAB Swab Corrected on 06/13 AT 1914: Previously reported as PIN DRAFTER OPERATOR SWAB Performed By: #### C OVID #### [facility] [address] [place], [place] [address] Vital Signs Date Time Vital Sign Value Performing Clinician Faci lity 04-23-2025 09:51-0400 Body mass index (BMI) [Ratio] 43.07 kg/m2 Altagracia Dougie PAPER TESTER.[employer] DEVELOPER Work Phone: [facility] 04-23-2025 09:51-0400 Body weight 124.74 kg Altagracia Dougie PAPER TESTER.[employer] DEVELOPER Work Phone: [facility] 04-23-2025 09:51-0400 Diastolic blood pressure 68 mm[Hg] Altagracia Dougie PAPER TESTER.[employer] RAIL[employer] DEVELOPER Work Phone: [facility] 04-23-2025 09:51-0400 Heart rate 63 /min Altagracia Dougie PAPER TESTER.[employer] RAIL[employer] DEVELOPER Work Phone: [facility] 04-23-2025 09:51-0400 Respiratory rate 16 /min Altagracia Dougie PAPER TESTER.RUBY ON RAILS DEVELOPER Work Phone: [facility] 04-23-2025 09:51-0400 SaO2% (BldA) [Mass fraction] 98 % Altagracia Dougie PAPER TESTER.RUBY ON RAILS DEVELOPER Work Phone: [facility] 04-23-2025 09:51-0400 Systolic blood pressure 156 mm[Hg] Altagracia Dougie PAPER TESTER.RUBY ON RAILS DEVELOPER Work Phone: [facility] 04-21-2025 10:57-0400 Body height 170.2 cm Radha High RD [facility] 04-21-2025 10:57-0400 Body mass index (BMI) [Ratio] 42.99 kg/m2 Radha High RD [facility] 04-21-2025 10:57-0400 Body weight 124.[address] [facility] 03-10-2025 10:57-0400 Body height 170.[address] [facility] 03-10-2025 10:57-0400 Body mass index (BMI) [Ratio] 42.91 kg/m2 Radha High RD [facility] 03-10-2025 10:57-0400 Body weight 124.[address] [facility] 02-24-2025 13:01-0400 Body mass index (BMI) [Ratio] 43.07 kg/m2 Екатерина Older PAPER TESTER.[employer] DEVELOPER Work Phone: [facility] 02-24-2025 13:01-0400 Body weight 124.74 kg Екатерина Older PAPER TESTER.[employer] DEVELOPER Work Phone: [facility] 02-24-2025 13:01-0400 Diastolic blood pressure 78 mm[Hg] Екатерина Older PAPER TESTER.[employer] DEVELOPER Work Phone: [facility] 02-24-2025 13:01-0400 Heart rate 64 /min Екатерина Older PAPER TESTER.[employer] DEVELOPER Work Phone: [facility] 02-24-2025 13:01-0400 Respiratory rate 16 /min Екатерина Older PAPER TESTER.[employer] DEVELOPER Work Phone: [facility] 02-24-2025 13:01-0400 SaO2% (BldA) [Mass fraction] 99 % Екатерина Older PAPER TESTER.[employer] DEVELOPER Work Phone: [facility] 02-24-2025 13:01-0400 Systolic blood pressure 132 mm[Hg] Екатерина Older PAPER TESTER.[employer] DEVELOPER Work Phone: [facility] 01-27-2025 10:55-0400 Body height 170.2 cm Radha High [facility] 01-27-2025 10:55-0400 Body mass index (BMI) [Ratio] 41.35 kg/m2 Radha High RD [facility] 01-27-2025 10:55-0400 Body weight 119.[address] [facility] 01-20-2025 10:39-0400 Body mass index (BMI) [Ratio] 42.51 kg/m2 Hollie Blevins Jr., MD Work Phone: [facility] 01-20-2025 10:39-0400 Body weight 123.11 kg Hollie Blevins Jr., MD Work Phone: [facility] 01-20-2025 10:39-0400 Diastolic blood pressure 82 mm[Hg] Hollie Blevins Jr., MD Work Phone: [facility] 01-20-2025 10:39-0400 Heart rate 66 /min Hollie Blevins Jr., MD Work Phone: [facility] 01-20-2025 10:39-0400 Respiratory rate 18 /min Hollie Blevins Jr., MD Work Phone: [facility] 01-20-2025 10:39-0400 SaO2% (BldA) [Mass fraction] 98 % oHllie Blevins Jr., MD Work Phone: [facility] 01-20-2025 10:39-0400 Systolic blood pressure 138 mm[Hg] Hollie Blevins Jr., MD Work Phone: [facility] 10-28-2024 11:00-0400 Body height 170.[address] [facility] 10-28-2024 11:00-0400 Body mass index (BMI) [Ratio] 42.66 kg/m2 Radha High RD [facility] 10-28-2024 11:00-0400 Body weight 123.[address] [facility] 10-14-2024 10:42-0500 Body mass index (BMI) [Ratio] 43.4 kg/m2 Georgette Bautista APRN.[employer] DEVELOPER Work Phone: [facility] 10-14-2024 10:42-0500 Body temperature 97.5 [degF] Georgette Bautista APRN.[employer] DEVELOPER Work Phone: [facility] 10-14-2024 10:42-0500 Body weight 125.7 kg Georgette Bautista APRN.[employer] DEVELOPER Work Phone: [facility] 10-14-2024 10:42-0500 Diastolic blood pressure 84 mm[Hg] Georgette Bautista PAPER TESTER.[employer] DEVELOPER Work Phone: [facility] 10-14-2024 10:42-0500 Heart rate 68 /min Georgette Bautista PAPER TESTER.[employer] DEVELOPER Work Phone: [facility] 10-14-2024 10:42-0500 Respiratory rate 18 /min Georgette Bautista PAPER TESTER.[employer] DEVELOPER Work Phone: [facility] 10-14-2024 10:42-0500 SaO2% (BldA) [Mass fraction] 97 % Georgette Bautista PAPER TESTER.[employer] DEVELOPER Work Phone: [facility] 10-14-2024 10:42-0500 Systolic blood pressure 158 mm[Hg] Georgette Bautista PAPER TESTER.RU[employer] DEVELOPER Work Phone: [facility] 09-09-2024 12:53-0500 Body height 170.2 cm Radha High [facility] 09-09-2024 12:53-0500 Body mass index (BMI) [Ratio] 43.29 kg/m2 Radha High [facility] 09-09-2024 12:53-0500 Body weight 125.37 kg Radha High [facility] 08-26-2024 14:25-0500 Body mass index (BMI) [Ratio] 43.07 kg/m2 Екатерина Older PAPER TESTER.[employer] DEVELOPER Work Phone: [facility] 08-26-2024 14:25-0500 Body weight 124.74 kg Екатерина Older PAPER TESTER.[employer] DEVELOPER Work Phone: [facility] 08-26-2024 14:25-0500 Diastolic blood pressure 80 mm[Hg] Екатерина Older PAPER TESTER.[employer] DEVELOPER Work Phone: [facility] 08-26-2024 14:25-0500 Heart rate 76 /min Екатерина Older PAPER TESTER.[employer] DEVELOPER Work Phone: [facility] 08-26-2024 14:25-0500 Respiratory rate 16 /min Екатерина Older PAPER TESTER.[employer] DEVELOPER Work Phone: [facility] 08-26-2024 14:25-0500 SaO2% (BldA) [Mass fraction] 97 % Екатерина Escalante PAPER TESTER.RU[employer] RAILS DEVELOPER Work Phone: [facility] 08-26-2024 14:25-0500 Systolic blood pressure 142 mm[Hg] Екатерина Older PAPER TESTER.[employer] DEVELOPER Work Phone: [facility] 06-24-2024 12:20-0500 Body height 170.[address] [facility] 06-24-2024 12:20-0500 Body mass index (BMI) [Ratio] 42.21 kg/m2 Radha High RD [facility] 06-24-2024 12:20-0500 Body weight 122.[address] [facility] 06-21-2024 09:57-0500 Body mass index (BMI) [Ratio] 42.91 kg/m2 Altagracia Dougie PAPER TESTER.[employer] DEVELOPER Work Phone: [facility] 06-21-2024 09:57-0500 Body weight 124.29 kg Altagracia Dougie PAPER TESTER.[employer] DEVELOPER Work Phone: [facility] 06-21-2024 09:57-0500 Diastolic blood pressure 76 mm[Hg] Altagracia Dougie PAPER TESTER.[employer] DEVELOPER Work Phone: [facility] 06-21-2024 09:57-0500 Heart rate 64 /min Altagracia Dougie PAPER TESTER.[employer] DEVELOPER Work Phone: [facility] 06-21-2024 09:57-0500 Respiratory rate 16 /min Altagracia Dougie PAPER TESTER.[employer] DEVELOPER Work Phone: [facility] 06-21-2024 09:57-0500 SaO2% (BldA) [Mass fraction] 94 % Altagracia Dougie PAPER TESTER.[employer] DEVELOPER Work Phone: [facility] 06-21-2024 09:57-0500 Systolic blood pressure 138 mm[Hg] Altagracia Dougie PAPER TESTER.[employer] DEVELOPER Work Phone: [facility] 05-13-2024 10:17-0400 Body height 170.[address] [facility] 05-13-2024 10:17-0400 Body mass index (BMI) [Ratio] 42.35 kg/m2 Radha High [facility] 05-13-2024 10:17-0400 Body weight 122.65 kg Radha High [facility] 04-01-2024 12:57-0400 Body height 170.2 cm Radha High [facility] 04-01-2024 12:57-0400 Body mass index (BMI) [Ratio] 42.05 kg/m2 Radha High [facility] 04-01-2024 12:57-0400 Body weight 121.79 kg Radha High [facility] 02-21-2024 10:37-0400 Body mass index (BMI) [Ratio] 42.44 kg/m2 Екатерина Older PAPER TESTER.[employer] DEVELOPER Work Phone: [facility] 02-21-2024 10:37-0400 Body weight 122.92 kg Екатерина Older PAPER TESTER.[employer] DEVELOPER Work Phone: [facility] 02-21-2024 10:37-0400 Diastolic blood pressure 74 mm[Hg] Екатерина Older PAPER TESTER.[employer] DEVELOPER Work Phone: [facility] 02-21-2024 10:37-0400 Heart rate 84 /min Екатерина Older PAPER TESTER.[employer] DEVELOPER Work Phone: [facility] 02-21-2024 10:37-0400 Respiratory rate 16 /min Екатерина Older PAPER TESTER.[employer] RAIL[employer] DEVELOPER Work Phone: [facility] 02-21-2024 10:37-0400 SaO2% (BldA) [Mass fraction] 98 % Екатерина Older PAPER TESTER.[employer] DEVELOPER Work Phone: [facility] 02-21-2024 10:37-0400 Systolic blood pressure 140 mm[Hg] Екатерина Older PAPER TESTER.[employer] DEVELOPER Work Phone: [facility] 01-01-2024 11:03-0400 Body height 170.2 cm Radha High [facility] 01-01-2024 11:03-0400 Body mass index (BMI) [Ratio] 42.05 kg/m2 Radha High RD [facility] 01-01-2024 11:03-0400 Body weight 121.[address] [facility] 12-18-2023 10:32-0400 Body mass index (BMI) [Ratio] 42.35 kg/m2 Hollie Blevins Jr., MD Work Phone: [facility] 12-18-2023 10:32-0400 Body weight 122.65 kg Hollie Blevins Jr., MD Work Phone: [facility] 12-18-2023 10:32-0400 Diastolic blood pressure 70 mm[Hg] Hollie Blevins Jr., MD Work Phone: [facility] 12-18-2023 10:32-0400 Heart rate 66 /min Hollie Blevins Jr., MD Work Phone: [facility] 12-18-2023 10:32-0400 Respiratory rate 16 /min Hollie Blevins Jr., MD Work Phone: [facility] 12-18-2023 10:32-0400 SaO2% (BldA) [Mass fraction] 96 % Hollie Blevins Jr., MD Work Phone: [facility] 12-18-2023 10:32-0400 Systolic blood pressure 122 mm[Hg] Hollie Blevins Jr., MD Work Phone: [facility] 10-23-2023 11:03-0400 Body height 170.[address] [facility] 10-23-2023 11:03-0400 Body weight 122.[address] [facility] 10-06-2023 11:03-0500 Body height 172.[address] Helen Chapa Work Phone: [facility] 10-06-2023 10:58-0500 Body mass index (BMI) [Ratio] 41.2 kg/m2 Dr. Helen Chapa Work Phone: [facility] 10-06-2023 10:58-0500 Body weight 122.[address] Helen Chapa Work Phone: [facility] 10-06-2023 10:58-0500 Diastolic blood pressure 78 mm[Hg] Dr. Helen Chapa Work Phone: [facility] 10-06-2023 10:58-0500 Heart rate 61 /min Dr. Helen Chapa Work Phone: [facility] 10-06-2023 10:58-0500 Respiratory rate 18 /min Dr. Helen Chapa Work Phone: [facility] 10-06-2023 10:58-0500 SaO2% (BldA) [Mass fraction] 98 % Dr. Helen Chapa Work Phone: [facility] 10-06-2023 10:58-0500 Systolic blood pressure 136 mm[Hg] Dr. Helen Chapa Work Phone: [facility] 09-18-2023 10:17-0500 Body height 170.[address] [facility] 09-18-2023 10:17-0500 Body weight 122.[address] [facility] 08-23-2023 10:36-0500 Body weight 122.92 kg Екатерина Older PAPER TESTER.[employer] DEVELOPER Work Phone: [facility] 08-23-2023 10:36-0500 Diastolic blood pressure 74 mm[Hg] Екатерина Older PAPER TESTER.[employer] DEVELOPER Work Phone: [facility] 08-23-2023 10:36-0500 Heart rate 68 /min Екатерина Older PAPER TESTER.[employer] DEVELOPER Work Phone: [facility] 08-23-2023 10:36-0500 Respiratory rate 16 /min Екатерина Older PAPER TESTER.[employer] DEVELOPER Work Phone: [facility] 08-23-2023 10:36-0500 SaO2% (BldA) [Mass fraction] 96 % Екатерина Older PAPER TESTER.[employer] DEVELOPER Work Phone: [facility] 08-23-2023 10:36-0500 Systolic blood pressure 132 mm[Hg] Екатерина Older PAPER TESTER.[employer] DEVELOPER Work Phone: [facility] 07-03-2023 10:57-0500 Body height 170.2 cm Radha High ADELA [facility] 07-03-2023 10:57-0500 Body weight 117.66 kg aRdha High [facility] 05-22-2023 12:20-0400 Body height 170.2 cm Radha High [facility] 05-22-2023 12:20-0400 Body weight 118.[address] [facility] 04-03-2023 09:06-0400 Body temperature 97.59 [degF] Elsa Bakari PETROLEUM REFINERY OPERATOR Work Phone: [facility] 04-03-2023 09:06-0400 Diastolic blood pressure 78 mm[Hg] Elsa Bakari PETROLEUM REFINERY OPERATOR Work Phone: [facility] 04-03-2023 09:06-0400 Heart rate 69 /min Elsa Bakari PETROLEUM REFINERY OPERATOR Work Phone: [facility] 04-03-2023 09:06-0400 Respiratory rate 18 /min Elsa Bakari PETROLEUM REFINERY OPERATOR Work Phone: [facility] 04-03-2023 09:06-0400 SaO2% (BldA) [Mass fraction] 98 % Elsa Bakari PETROLEUM REFINERY OPERATOR Work Phone: [facility] 04-03-2023 09:06-0400 Systolic blood pressure 118 mm[Hg] Elsa Bakari PETROLEUM REFINERY OPERATOR Work Phone: [facility] 03-24-2023 15:46-0400 Body temperature 98.01 [degF] Leonor Funes PT Work Phone: [facility] 03-24-2023 15:46-0400 Diastolic blood pressure 74 mm[Hg] Leonor Funes PT Work Phone: [facility] 03-24-2023 15:46-0400 Heart rate 76 /min Leonor Funes PT Work Phone: [facility] 03-24-2023 15:46-0400 Respiratory rate 18 /min Leonor Peacederman-Edwards PT Work Phone: [facility] 03-24-2023 15:46-0400 SaO2% (BldA) [Mass fraction] 98 % Leonor Halderman-Edwards PT Work Phone: [facility] 03-24-2023 15:46-0400 Systolic blood pressure 144 mm[Hg] Leonor Halderman-Edwards PT Work Phone: [facility] 03-22-2023 09:56-0400 Body temperature 97.81 [degF] Leonor Halderman-Edwards PT Work Phone: [facility] 03-22-2023 09:56-0400 Diastolic blood pressure 70 mm[Hg] Leonor Halderman-Edwards PT Work Phone: [facility] 03-22-2023 09:56-0400 Heart rate 74 /min Leonor Peacederman-Edwards PT Work Phone: [facility] 03-22-2023 09:56-0400 Respiratory rate 16 /min Leonor Halderman-Edwards PT Work Phone: [facility] 03-22-2023 09:56-0400 SaO2% (BldA) [Mass fraction] 99 % Leonor Peacederman-Edwards PT Work Phone: [facility] 03-22-2023 09:56-0400 Systolic blood pressure 138 mm[Hg] Leonor Halderman-Edwards PT Work Phone: [facility] 03-20-2023 14:57-0400 Diastolic blood pressure 60 mm[Hg] Donnie Josie PETROLEUM REFINERY OPERATOR Work Phone: [facility] 03-20-2023 14:57-0400 Heart rate 67 /min Donnie Josie PETROLEUM REFINERY OPERATOR Work Phone: [facility] 03-20-2023 14:57-0400 Respiratory rate 16 /min Donnie Josie PETROLEUM REFINERY OPERATOR Work Phone: [facility] 03-20-2023 14:57-0400 SaO2% (BldA) [Mass fraction] 99 % Donnie Boycer PETROLEUM REFINERY OPERATOR Work Phone: [facility] 03-20-2023 14:57-0400 Systolic blood pressure 112 mm[Hg] Donnie QuirozJosie PETROLEUM REFINERY OPERATOR Work Phone: [facility] 03-20-2023 14:24-0400 Body temperature 98.29 [degF] Donnie Boycer PETROLEUM REFINERY OPERATOR Work Phone: [facility] 03-17-2023 14:13-0400 Diastolic blood pressure 58 mm[Hg] Leonor Hi-Jerry PT Work Phone: [facility] 03-17-2023 14:13-0400 Heart rate 77 /min Leonor Funes PT Work Phone: [facility] 03-17-2023 14:13-0400 SaO2% (BldA) [Mass fraction] 99 % Leonor Funes PT Work Phone: [facility] 03-17-2023 14:13-0400 Systolic blood pressure 118 mm[Hg] Leonor iH-Jerry PT Work Phone: [facility] 03-17-2023 13:00-0400 Body temperature 97.9 [degF] Leonor Funes PT Work Phone: [facility] 03-17-2023 13:00-0400 Respiratory rate 18 /min Leonor Funes PT Work Phone: [facility] 02-27-2023 10:38-0400 Body height 168.9 cm Pacc 1 Work Phone: [facility] 02-27-2023 10:38-0400 Body temperature 97.2 [degF] Pacc 1 Work Phone: [facility] 02-27-2023 10:38-0400 Body weight 117.94 kg Pacc 1 Work Phone: [facility] 02-27-2023 10:38-0400 Diastolic blood pressure 74 mm[Hg] Pacc 1 Work Phone: [facility] 02-27-2023 10:38-0400 Heart rate 63 /min Pacc 1 Work Phone: [facility] 02-27-2023 10:38-0400 Respiratory rate 16 /min Pacc 1 Work Phone: [facility] 02-27-2023 10:38-0400 SaO2% (BldA) [Mass fraction] 96 % Pacc 1 Work Phone: [facility] 02-27-2023 10:38-0400 Systolic blood pressure 138 mm[Hg] Pacc 1 Work Phone: [facility] 01-23-2023 10:57-0400 Body height 168.4 cm Radhaalexandru Garciason [facility] 01-23-2023 10:57-0400 Body weight 118.98 kg Radha Anila [facility] 12-19-2022 11:03-0400 Body height 168.4 cm Radhaalexandru Garciason [facility] 12-19-2022 11:03-0400 Body weight 118.07 kg Radha Anila [facility] 12-01-2022 13:49-0400 Body temperature 98.91 [degF] Laurie Dahlhausen PAPER TESTER.[employer] DEVELOPER Work Phone: [facility] 12-01-2022 13:49-0400 Body weight 120.02 kg Laurie Dahlhausen PAPER TESTER.RU[employer] RAILS DEVELOPER Work Phone: [facility] 12-01-2022 13:49-0400 Diastolic blood pressure 68 mm[Hg] Laurie Dahlhausen PAPER TESTER.RU[employer] RAIL[employer] DEVELOPER Work Phone: [facility] 12-01-2022 13:49-0400 Heart rate 69 /min Laurie Dahlhausen PAPER TESTER.RU[employer] RAILS DEVELOPER Work Phone: [facility] 12-01-2022 13:49-0400 Respiratory rate 16 /min Laurie Dahlhausen PAPER TESTER.RU[employer] RAILS DEVELOPER Work Phone: [facility] 12-01-2022 13:49-0400 SaO2% (BldA) [Mass fraction] 96 % Laurie Cee PAPER TESTER.RU[employer] RAILS DEVELOPER Work Phone: [facility] 12-01-2022 13:49-0400 Systolic blood pressure 139 mm[Hg] Laurie Cee PAPER TESTER.RU[employer] RAILS DEVELOPER Work Phone: [facility] 11-21-2022 10:19-0400 Body height 169.[address] [facility] 11-21-2022 10:190400 Body weight 120.[address] [facility] 11-16-2022 10:56-0400 Body height 169.3 cm Екатерина Older PAPER TESTER.RU[employer] RAILS DEVELOPER Work Phone: [facility] 11-16-2022 10:56-0400 Body temperature 98.01 [degF] Екатерина Older PAPER TESTER.RU[employer] RAILS DEVELOPER Work Phone: [facility] 11-16-2022 10:56-0400 Body weight 121.11 kg Екатерина Older PAPER TESTER.RU[employer] RAILS DEVELOPER Work Phone: [facility] 11-16-2022 10:56-0400 Diastolic blood pressure 80 mm[Hg] Екатерина Older PAPER TESTER.RU[employer] RAILS DEVELOPER Work Phone: [facility] 11-16-2022 10:56-0400 Heart rate 68 /min Екатерина Older PAPER TESTER.RUBY ON RAILS DEVELOPER Work Phone: [facility] 11-16-2022 10:56-0400 Respiratory rate 16 /min Екатерина Older PAPER TESTER.RU[employer] ON RAILS DEVELOPER Work Phone: [facility] 11-16-2022 10:56-0400 SaO2% (BldA) [Mass fraction] 97 % Екатерина Older PAPER TESTER.RU[employer] RAILS DEVELOPER Work Phone: [facility] 11-16-2022 10:56-0400 Systolic blood pressure 132 mm[Hg] Екатерина Older PAPER TESTER.RU[employer] RAILS DEVELOPER Work Phone: [facility] 10-07-2022 13:38-0500 Body height 172.[address] Helen Chapa Work Phone: [facility] 10-07-2022 13:38-0500 Body mass index (BMI) [Ratio] 40.7 kg/m2 Dr. Helen Chapa Work Phone: [facility] 10-07-2022 13:38-0500 Body weight 121.[address] Helen Chapa Work Phone: [facility] 10-07-2022 13:38-0500 Diastolic blood pressure 67 mm[Hg] Dr. Helen Chapa Work Phone: [facility] 10-07-2022 13:38-0500 Heart rate 72 /min Dr. Helen Chapa Work Phone: [facility] 10-07-2022 13:38-0500 Respiratory rate 18 /min Dr. Helen Chapa Work Phone: [facility] 10-07-2022 13:38-0500 Systolic blood pressure 120 mm[Hg] Dr. Helen Chapa Work Phone: [facility] 10-03-2022 08:01-0500 Body height 170.[address] [facility] 10-03-2022 08:01-0500 Body weight 121.[address] [facility] 09-30-2022 09:54-0500 Body weight 119.57 kg Hollie Blevins Jr., MD Work Phone: [facility] 09-30-2022 09:54-0500 Diastolic blood pressure 98 mm[Hg] Hollie Blevins Jr., MD Work Phone: [facility] 09-30-2022 09:54-0500 Heart rate 87 /min Hollie Blevins Jr., MD Work Phone: [facility] 09-30-2022 09:54-0500 Respiratory rate 16 /min Hollie Blevins Jr., MD Work Phone: [facility] 09-30-2022 09:54-0500 SaO2% (BldA) [Mass fraction] 98 % Hollie Blevins Jr., MD Work Phone: [facility] 09-30-2022 09:54-0500 Systolic blood pressure 156 mm[Hg] Hollie Blevins Jr., MD Work Phone: [facility] 08-22-2022 10:21-0500 Body height 170.[address] [facility] 08-22-2022 10:21-0500 Body weight 125.[address] [facility] 08-17-2022 14:00-0500 Body weight 124.29 kg Екатерина Older PAPER TESTER.RUBY [employer] RAILS DEVELOPER Work Phone: [facility] 08-17-2022 14:00-0500 Diastolic blood pressure 84 mm[Hg] Екатерина Older PAPER TESTER.RU[employer] ON RAILS DEVELOPER Work Phone: [facility] 08-17-2022 14:00-0500 Heart rate 60 /min Екатерина Older PAPER TESTER.RUBY ON RAILS DEVELOPER Work Phone: [facility] 08-17-2022 14:00-0500 Respiratory rate 16 /min Екатерина Older PAPER TESTER.RU[employer] ON RAILS DEVELOPER Work Phone: [facility] 08-17-2022 14:00-0500 Systolic blood pressure 142 mm[Hg] Екатерина Older PAPER TESTER.RUBY ON RAILS DEVELOPER Work Phone: [facility] 06-27-2022 10:12-0500 Body height 170.[address] [facility] 06-27-2022 10:12-0500 Body weight 121.[address] [facility] 05-19-2022 11:26-0400 Body temperature 97.5 [degF] Laurie Dahlhausen PAPER TESTER.RU[employer] RAILS DEVELOPER Work Phone: [facility] 05-19-2022 11:26-0400 Body weight 123.38 kg Laurie Dahlhausen PAPER TESTER.RU[employer] ON RAILS DEVELOPER Work Phone: [facility] 05-19-2022 11:26-0400 Diastolic blood pressure 82 mm[Hg] Laurie Dahlhausen PAPER TESTER.RUBY ON RAILS DEVELOPER Work Phone: [facility] 05-19-2022 11:26-0400 Heart rate 66 /min Laurie Dalucashausen PAPER TESTER.RUBY ON RAILS DEVELOPER Work Phone: [facility] 05-19-2022 11:26-0400 Respiratory rate 18 /min Laurie Dalucashausen PAPER TESTER.RUBY ON RAILS DEVELOPER Work Phone: [facility] 05-19-2022 11:26-0400 SaO2% (BldA) [Mass fraction] 95 % Laurie Dahlhausen PAPER TESTER.RUBY ON RAILS DEVELOPER Work Phone: [facility] 05-19-2022 11:26-0400 Systolic blood pressure 138 mm[Hg] Laurie Dalucashausen PAPER TESTER.RUBY ON RAILS DEVELOPER Work Phone: [facility] 05-16-2022 10:59-0400 Body height 170.[address] [facility] 05-16-2022 10:59-0400 Body weight 125.[address] [facility] 05-02-2022 10:37-0400 Diastolic blood pressure 56 mm[Hg] Randi Jimenez MD Work Phone: [facility] 05-02-2022 10:37-0400 Heart rate 71 /min Randi Jimenez MD Work Phone: [facility] 05-02-2022 10:37-0400 Respiratory rate 20 /min Randi Jimenez MD Work Phone: [facility] 05-02-2022 10:37-0400 SaO2% (BldA) [Mass fraction] 97 % Randi Jimenez MD Work Phone: [facility] 05-02-2022 10:37-0400 Systolic blood pressure 132 mm[Hg] Randi Jimenez MD Work Phone: [facility] 05-02-2022 10:30-0400 Body height 170.2 cm Randi Jimenez MD Work Phone: [facility] 05-02-2022 10:30-0400 Body weight 121.56 kg Randi Jimenez MD Work Phone: [facility] 04-22-2022 13:02-0400 Body height 170.2 cm Pacc 1 Work Phone: [facility] 04-22-2022 13:02-0400 Body temperature 98.1 [degF] Pacc 1 Work Phone: [facility] 04-22-2022 13:02-0400 Body weight 122.02 kg Pacc 1 Work Phone: [facility] 04-22-2022 13:02-0400 Diastolic blood pressure 84 mm[Hg] Pacc 1 Work Phone: [facility] 04-22-2022 13:02-0400 Heart rate 64 /min Pacc 1 Work Phone: [facility] 04-22-2022 13:02-0400 Respiratory rate 16 /min Pacc 1 Work Phone: [facility] 04-22-2022 13:02-0400 SaO2% (BldA) [Mass fraction] 95 % Pacc 1 Work Phone: [facility] 04-22-2022 13:02-0400 Systolic blood pressure 138 mm[Hg] Pacc 1 Work Phone: [facility] 04-15-2022 15:26-0400 Body height 172.[address] Helen Chapa Work Phone: [facility] Work Phone: 04-15-2022 15:26-0400 Body mass index (BMI) [Ratio] 41.3 kg/m2 Dr. Helen Chapa Work Phone: [facility] Work Phone: 04-15-2022 15:26-0400 Body weight 123.[address] Helen Chapa Work Phone: [facility] Work Phone: 04-15-2022 15:26-0400 Diastolic blood pressure 74 mm[Hg] Dr. Helen Chapa Work Phone: [facility] Work Phone: 04-15-2022 15:26-0400 Heart rate 71 /min Dr. Helen Chapa Work Phone: [facility] Work Phone: 04-15-2022 15:26-0400 Respiratory rate 18 /min Dr. Helen Chapa Work Phone: [facility] Work Phone: 04-15-2022 15:26-0400 SaO2% (BldA) [Mass fraction] 95 % Dr. Helen Chapa Work Phone: [facility] Work Phone: 04-15-2022 15:26-0400 Systolic blood pressure 159 mm[Hg] Dr. Helen Chapa Work Phone: [facility] Work Phone: 03-28-2022 13:01-0400 Body height 170.2 cm Radha High [facility] 03-28-2022 13:01-0400 Body weight 122.92 kg Radha High [facility] 02-28-2022 09:30-0400 Body height 170.2 cm Radha High [facility] 02-28-2022 09:30-0400 Body weight 126.24 kg Radha High [facility] 12-27-2021 11:35-0400 Body mass index (BMI) [Ratio] 43.4 kg/m2 Dr. Helen Chapa Work Phone: [facility] Work Phone: 12-27-2021 11:35-0400 Body weight 129.[address] Helen Chapa Work Phone: [facility] Work Phone: 12-27-2021 11:35-0400 Diastolic blood pressure 80 mm[Hg] Dr. Helen Chapa Work Phone: [facility] Work Phone: 12-27-2021 11:35-0400 Heart rate 69 /min Dr. Helen Chapa Work Phone: [facility] Work Phone: 12-27-2021 11:35-0400 Respiratory rate 20 /min Dr. Helen Chapa Work Phone: [facility] Work Phone: 12-27-2021 11:35-0400 SaO2% (BldA) [Mass fraction] 97 % Dr. Helen Chapa Work Phone: [facility] Work Phone: 12-27-2021 11:35-0400 Systolic blood pressure 127 mm[Hg] Dr. Helen Chapa Work Phone: [facility] Work Phone: 11-30-2021 13:07-0400 Body height 170.1 cm Bri Romero PAPER TESTER.RUBY ON RAILS DEVELOPER Work Phone: [facility] 11-30-2021 13:07-0400 Body weight 132 kg Bri Romero PAPER TESTER.RUBY ON RAILS DEVELOPER Work Phone: [facility] 11-30-2021 13:07-0400 Diastolic blood pressure 64 mm[Hg] Bri Romero PAPER TESTER.RUBY ON RAILS DEVELOPER Work Phone: [facility] 11-30-2021 13:07-0400 Heart rate 64 /min Bri Romero PAPER TESTER.RUBY ON RAILS DEVELOPER Work Phone: [facility] 11-30-2021 13:07-0400 SaO2% (BldA) [Mass fraction] 95 % Bri Romero PAPER TESTER.RUBY ON RAILS DEVELOPER Work Phone: [facility] 11-30-2021 13:07-0400 Systolic blood pressure 120 mm[Hg] Bri Romero PAPER TESTER.RUBY ON RAILS DEVELOPER Work Phone: [facility] 11-29-2021 10:45-0400 Body temperature 97.39 [degF] Hollie Blevins Jr., MD Work Phone: [facility] 11-29-2021 10:45-0400 Body weight 132.45 kg Hollie Blevins Jr., MD Work Phone: [facility] 11-29-2021 10:45-0400 Diastolic blood pressure 86 mm[Hg] Hollie Blevins Jr., MD Work Phone: [facility] 11-29-2021 10:45-0400 Heart rate 104 /min Hollie Blevins Jr., MD Work Phone: [facility] 11-29-2021 10:45-0400 Respiratory rate 18 /min Hollie Blevins Jr., MD Work Phone: [facility] 11-29-2021 10:45-0400 SaO2% (BldA) [Mass fraction] 97 % Hollie Blevins Jr., MD Work Phone: [facility] 11-29-2021 10:45-0400 Systolic blood pressure 138 mm[Hg] Hollie Blevins Jr., MD Work Phone: [facility] 11-17-2021 13:35-0400 Body height 170.2 cm Mckinley POWER-C Work Phone: [facility] 11-17-2021 13:35-0400 Body weight 132.81 kg Mckinley Jacobsen PA-C Work Phone: [facility] 11-17-2021 13:35-0400 Diastolic blood pressure 52 mm[Hg] Mckinley POWER-C Work Phone: [facility] 11-17-2021 13:35-0400 Heart rate 66 /min Mckinley Jacobsen PA-C Work Phone: [facility] 11-17-2021 13:35-0400 SaO2% (BldA) [Mass fraction] 96 % Mckinley Jacobsen PA-C Work Phone: [facility] 11-17-2021 13:35-0400 Systolic blood pressure 146 mm[Hg] Mckinley Jcaobsen PA-C Work Phone: [facility] 11-08-2021 11:00-0400 Body height 170.[address] [facility] 11-08-2021 11:00-0400 Body weight 135.[address] [facility] 03-03-2021 12:00-0400 Heart rate 59 /min [...] Start: 06-02-2025 End: 06-04-2025 ambulatory HELENRA CHAPA Facility:[facility] Start: 05-29-2025 End: 05-29-2025 ambulatory ЕКАТЕРИНА ESCALANTE Facility:[facility] Start: 05-29-2025 Patient encounter procedure ЕКАТЕРИНА OLDER [facility] Start: 05-27-2025 End: 05-27-2025 ambulatory LETY VETOVITZ Facility:[facility] Start: 05-26-2025 End: 05-26-2025 ambulatory ALTAGRACIA DOUGIE Facility:[facility] Start: 05-12-2025 ambulatory LETY VETOVITZ Facilit y:[facility] Start: 05-12-2025 End: 05-12-2025 ambulatory LETY VETOVITZ Facility:[facility] Start: 04-30-2025 End: 04-30-2025 Orders Only Lety Haywood PA-C Work Phone: Orthopaedics Comment on above: History of right hip replacement (Primary Dx); Primary osteoarthritis of right hip Start: 04-23-2025 End: 04-24-2025 Telephone encounter Altagracia Constantino APRN.RUBY ON RAILS DEVELOPER Work Phone: Neurology Start: 04-23-2025 End: 04-23-2025 Patient encounter procedure Altagraciakrissy Hubbardne PAPER TESTER.RUBY ON RAILS DEVELOPER Work Phone: Neurology Comment on above: RLS (restless legs s yndrome) (Primary Dx); Iron deficiency anemia, unspecified iron deficiency anemia type Start: 04-23-2025 End: 04-23-2025 ambulatory ALTAGRACIA CONSTANTINO Facility:[facility] Start: 04-21-2025 End: 04-21-2025 Nutrition [...] [facility] [place] Start: 02-24-2025 End: 02-24-2025 [facility] Facility:[facility] Start: 02-24-2025 End: 02-24-2025 Office outpatient visit 25 minutes Екатерина Escalante APRN.CNP Work Phone: [facility] [place] Comment on above: Multiple joint pain (Primary Dx); Other fatigue; Decreased mobility; Essential hypertension, benign; Primary osteoarthritis of right hand; Primary osteoarthritis, left hand; Type 2 diabetes mellitus without complication, without long-term current use of insulin ([facility]); RLS (restless legs syndrome); Loneliness Start: 02-24-2025 End: 02-24-2025 [facility] Facility:[facility] Start: 02-17-2025 End: 02-20-2025 Refill Helen Chapa MD Work Phone: [facility] [place] Comment on above: Refill Request Start: 02-04-2025 End: 02-04-2025 Patient encounter procedure Anderson Mims Work Phone: Podiatry Comment on above: Hammer toes of both feet (Primary Dx); Callus; Diabetic polyneuropathy associated with type 2 diabetes mellitus (HCC) Start: 02-04-2025 End: 02-04-2025 [facility] Facility:[facility] Start: 01-29-2025 End: 03-31-2025 Follow-up encounter Anderson Mims Work Phone: Podiatry Start: 01-29-2025 End: 01-29-2025 [facility] Facility:[facility] Start: 01-27-2025 End: 01-27-2025 Nutrition [...] 01-20-2025 End: 01-20-2025 ambulatory HOLLIE BLEVINS JR Facility:[facility] Start: 01-17-2025 End: 01-20-2025 Telephone encounter Hollie Blevins MD Work Phone: Neurology Comment on above: Patient Update Start: 12-29-2024 End: 01-08-2025 Telephone encounter Altagracia Constantino APRN.RUBY ON RAILS DEVELOPER Work Phone: Neurology Comment on above: Insurance Authorizat ion (Gabapentin) Start: 12-27-2024 End: 02-26-2025 Follow-up encounter Anderson Mims Work Phone: Podiatry Start: 12-27-2024 End: 12-27-2024 Telephone encounter Altagracia Constantino APRN.RUBY ON RAILS DEVELOPER Work Phone: [facility] [place] Comment on above: Medication Problem Start: 12-23-2024 ambulatory [facility] Facility:[facility] Start: 12-23-2024 End: 12-23-2024 Subsequent hospital visit by physician Netta [facility] [place] Work Phone: Radiology Comment on above: Hammer toes of both feet [M20.41, M20.42] Start: 12-23-2024 End: 12-23-2024 Patient encounter procedure Anderson Mims Work Phone: Podiatry Comment on above: Hammer toes of both feet (Primary Dx); Callus; Diabetic polyneuropathy associated with type 2 diabetes mellitus (HCC); Diminished pulses in lower extremity Start: 12-23-2024 End: 12-23-2024 [facility] Facility:[facility] Start: 12-12-2024 End: 12-26-2024 ambulatory Hollie Blevins MD Work Phone: Neurology Comment on above: Horizantdenial Start: 12-09-2024 End: 12-09-2024 ambulatory [facility] Facility:[facility] Start: 11-27-2024 End: 12-25-2024 Refill Helen Chapa MD Work Phone: [facility] [place] Comment on above: Refill Request Medication Problem ( Horizant) Start: 11-25-2024 End: 12-02-2024 Telephone encounter Helen Chapa MD Work Phone: [facility] [place] Start: 11-22-2024 End: 11-22-2024 ambulatory [facility] Facility[facility] Start: 11-04-2024 End: 11-04-2024 Telephone encounter Helen Chapa MD Work Phone: [facility] [place] Comment on above: Insurance Authorizat ion Start: 10-28-2024 End: 10-28-[address] High [address] [facility] Comment on above: Reassessment; Patien t Education Start: 10-28-2024 End: 10-28-[address] [facility] Start: 10-14-2024 End: 10-14-2024 ambulatory [facility] Facility:[facility] Start: 10-14-2024 End: 10-14-2024 Patient encounter procedure Georgette Bautista APRN.CNP Work Phone: [facility] Comment on above: Sinobronchitis (Prim everette Dx) Start: 09-09-2024 End: 09-09-[address] [facility] Comment on above: Reassessment; Patien t Education Start: 09-09-2024 End: 09-09-[address] [facility] Start: 08-26-2024 End: 08-26-2024 Patient encounter procedure Екатерина Ava GREG.RUBY ON RAILS DEVELOPER Work Phone: [facility] [place] Comment on above: Acute pain of right shoulder (Primary Dx); Acute non-recurrent sinusitis, unspecified location; Type 2 diabetes mellitus with other specified complication, without long-term current use of insulin (HCC); Hypothyroidism, unspecified type; Mixed hyperlipidemia; Essential hypertension, benign Start: 08-26-2024 End: 08-26-2024 ambulatory ЕКАТЕРИНА ESCALANTE Facility:[facility] Start: 08-20-2024 End: 08-20-2024 ambulatory ALTAGRACIA DOUGIE Facility:[facility] Start: 07-26-2024 End: 07-26-2024 Refill Helen Chapa MD Work Phone: [facility] [place] Comment on above: Refill Request Start: 06-24-2024 End: 06-24-[address] Radha High RD [facility] Comment on above: Reassessment; Patien t Education Start: 06-24-2024 End: 06-24-[address] [facility] Start: 06-21-2024 End: 06-21-2024 Patient encounter procedure Altagracia Constantino APRN.RUBY ON RAILS DEVELOPER Work Phone: Neurology Comment on above: RLS (restless legs s yndrome) (Primary Dx); Iron deficiency anemia, unspecified iron deficiency anemia type; Vitamin D deficiency Start: 06-21-2024 End: 06-21-2024 ambulatory ALTAGRACIA CONSTANTINO Facility:[facility] Start: 06-06-2024 End: 06-13-2024 Refill Helen Chapa MD Work Phone: [facility] [place] Comment on above: Refill Request Start: 05-13-2024 End: 05-13-[address] [facility] Start: 05-13-2024 End: 05-13-[address]ha High [address] [facility] Comment on above: Reassessment; Patien t Education Start: 05-01-2024 End: 05-02-2024 Telephone encounter Helen Chapa MD Work Phone: [facility] [place] Comment on above: Patient Question Start: 04-05-2024 End: 04-05-2024 ambulatory Payton Bruno NP [facility] Start: 04-01-2024 End: 04-01-[address] [facility] Start: 04-01-2024 End: 04-01-[address]ha High [address] [facility] Comment on above: Reassessment; Patien t Education Start: 03-05-2024 Documentation procedure Mammog cecile Coordinator [facility] Department Start: 03-05-2024 Letter encounter Mammography Coordinator [facility] Start: 03-04-2024 End: 03-04-2024 Subsequent hospital visit by physician Screen Mammo [facility] Comment on above: Encounter [...] malignant neoplasm of breast Start: 02-06-2024 ambulatory Helen June Work Phone: Internal Medicine [facility] Start: 01-31-2024 ambulatory Hedy Owens RN Am [...] Start: 11-23-2023 Refill Helen June Work Phone: [facility] Comment on above: Refill Request Start: 11-14-2023 Refill Екатерина KimRUBY ON RAILS DEVELOPER Work Phone: [facility] Comment on above: Refill Request Start: 11-13-2023 Non-patient / Non-visit Dr. Stepan Chapa Work Phone: [facility] Work Phone: Start: 11-13-2023 Non-patient / Non-visit Dr. Stepan Chapa Work Phone: [facility] Work Phone: Start: 11-13-2023 End: 11-13-[address] Helen Chapa Work Phone: [facility] Work Phone: Start: 11-13-2023 End: 11-13-[address] [facility] Start: 11-07-2023 ambulatory Hedy Owens RN [facility] Comment on above: Community Monitoring Outreach Start: 10-29-2023 Refill Tess Giron APRN.RUBY ON RAILS DEVELOPER Work Phone: [facility] Comment on above: Refill Request Start: 10-23-2023 End: 10-23-[address] [facility] Comment on above: Reassessment; Patien t Education Start: 10-13-2023 Telephone encounter Helen velásquez MD Work Phone: [facility] [place] Comment on above: Insurance Authorizat ion Start: 10-12-2023 Refill Екатерина Older PAPER TESTER .RUBY ON RAILS DEVELOPER Work Phone: [facility] [place] Start: 10-11-2023 Telephone encounter Екатерина Escalante PAPER TESTER.RUBY ON RAILS DEVELOPER Work Phone: [facility] Comment on above: Patient Question Start: 10-06-2023 End: 10-06-[address] Helen Chapa Work Phone: [facility] Work Phone: Start: 10-06-2023 End: 10-06-[address] Helen Chapa Work Phone: [facility] Work Phone: Start: 09-18-2023 End: 09-18-[address] [facility] Comment on above: Reassessment; Patien t Education Start: 08-23-2023 End: 08-23-2023 Patient encounter procedure Екатерина Escalante PAPER TESTER.RUBY ON RAILS DEVELOPER Work Phone: [facility] [place] Comment on above: Essential hypertensi on, benign (Primary Dx); 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 (HCC); Acute non-recurrent sinusitis, unspecified location; Hypothyroidism, unspecified type; Type 2 diabetes mellitus without complication, without long-term current use of insulin (HCC) Start: 07-20-2023 Refill Екатерина Older PAPER TESTER .RUBY ON RAILS DEVELOPER Work Phone: [facility] [place] Comment on above: Refill Request Start: 07-19-2023 Refill Helen June Work Phone: Radiology Comment on above: Refill Request Start: 07-05-2023 Refill Екатерина Older PAPER TESTER .RUBY ON RAILS DEVELOPER Work Phone: [facility] Comment on above: Refill Request Start: 07-03-2023 [...] hip replacement Start: 05-29-2023 Refill Samira ortega APRN.RUBY ON RAILS DEVELOPER Work Phone: Neurology Start: 05-22-2023 End: 05-22-[address] [facility] Comment on above: Patient Education; R eassessment Start: 05-15-2023 End: 05-16-2023 ambulatory SAMIRA SNOW Facility:[facility] Start: 04-24-2023 End: 04-24-2023 Patient encounter procedure Marco Hernandez MD Work Phone: Orthopaedics Comment on above: History of right hip replacement (Primary Dx) Start: 04-24-2023 End: 04-24-2023 Subsequent hospital visit by physician Netta [facility] [place] Work Phone: Radiology Comment [...] 04-03-2023 End: 04-03-2023 Home visit Elsa Villegas PETROLEUM REFINERY OPERATOR Work Phone: [facility] Comment on above: PETROLEUM REFINERY OPERATOR ROUTINE Start: 03-29-2023 Refill Helen June Work Phone: [facility] Comment on above: Refill Request Start: 03-27-2023 End: 03-27-2023 Patient encounter procedure Lety Haywood PA-C Work Phone: Orthopaedics Comment on above: Primary osteoarthrit is of right hip (Primary Dx) Start: 03-27-2023 End: 03-27-2023 Subsequent hospital visit by physician Xr [facility] [place] Work Phone: Radiology Comment on above: Primary osteoarthrit is of left hip [M16.12] Start: 03-24-2023 End: 03-24-2023 Home visit Leonor Funes PT Work Phone: [facility] Comment on above: PT ROUTINE Start: 03-22-2023 Telephone encounter Leonor Funes PT Work Phone: [facility] Comment on above: Home Care (Post op d ressing removal ) Start: 03-22-2023 End: 03-22-2023 Home visit Rehana Guerra RN Work Phone: [facility] Comment on above: CARE COORDINATION PT ROUTINE Start: 03-20-2023 End: 03-20-2023 Home visit Donnie Galindo PETROLEUM REFINERY OPERATOR Work Phone: [facility] Comment on above: PETROLEUM REFINERY OPERATOR ROUTINE Start: 03-17-2023 End: 03-17-2023 Home visit Leonor Funes PT Work Phone: [facility] Comment on above: PT SOC Start: 03-16-2023 Telephone encounter Bethanie Scott [facility] Comment on above: Home [...] benign; Mixed hyperlipidemia; 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 (HCC); LBBB (left bundle branch block); 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; Other irritable bowel syndrome; Anxiety and depression; Class 3 severe obesity due to excess calories with serious comorbidity and body mass index (BMI) of 40.0 to 44.9 in adult (HCC); Urinary frequency Start: 02-27-2023 End: 02-27-2023 Preprocedural examination done [facility] [place] [facility] Work Phone: [facility] Work Phone: Start: 02-21-2023 Telephone encounter Marco spencer MD Work Phone: [address] Comment on above: Pre-Op Teaching Start: 02-10-2023 Telephone encounter Marco spencer MD Work Phone: Orthopaedics Comment on above: Patient Update Start: 02-08-2023 Refill Helen June Work Phone: [facility] [place] Comment on above: Refill Request Lab order request Start: 02-01-2023 Telephone encounter Helen velásquez MD Work Phone: [facility] [place] Comment on above: Handicap placard Start: 01-27-2023 [...] to 49.9 in adult, unspecified obesity type ([facility]) Start: 01-23-2023 End: 01-23-[address] [facility] Comment on above: Patient Education; R eassessment Start: 01-19-2023 End: 01-19-2023 Patient encounter procedure Marco Hernandez MD Work Phone: Orthopaedics Comment on above: Primary osteoarthrit is of right hip (Primary Dx); Chronic pain of right hip Start: 01-18-2023 Refill Екатерина Escalante APRN .RUBY ON RAILS DEVELOPER Work Phone: [facility] [place] Comment on above: Refill Request Start: 01-10-2023 Documentation procedure Mammog cecile Coordinator [facility] Start: 01-10-2023 Letter encounter Mammography Coordinator [facility] Department Start: 01-10-2023 End: 01-10-2023 Refill Helen Chapa MD Work Phone: [facility] [place] Comment on above: Refill Request Encounter for [...] Refill Request Start: 12-02-2022 Refill Екатерина Escalante PAPER TESTER .RUBY ON RAILS DEVELOPER Work Phone: [facility] [place] Comment on above: Refill Request Start: 12-01-2022 End: 12-01-2022 Patient encounter procedure Laurie Cee APRN.RUBY ON RAILS DEVELOPER Work Phone: Neurology Comment on above: RLS (restless legs s yndrome) (Primary Dx); MAURICE (obstructive sleep apnea) Start: 11-29-2022 End: 11-29-[address] Helen Chapa Work Phone: [facility] Work Phone: Start: 11-29-2022 End: 11-29-[address] Helen Chapa Work Phone: [facility], [facility] Start: 11-28-2022 Telephone encounter Lety wallace PA-C Work Phone: Orthopaedics Comment on above: Medical Records Start: 11-21-2022 Telephone encounter Helen velásquez MD Work Phone: [facility] [place] Comment on above: Orders Patient Question Start: 11-21-2022 End: 11-21-[address] [facility] Comment on above: Reassessment; Patien t Education Start: 11-16-2022 End: 11-16-2022 Patient encounter procedure Екатерина Escalante APRN.CNP Work Phone: [facility] [place] Comment on above: Medicare annual [facility] visit, subsequent (Primary Dx); Hypothyroidism, unspecified type; Essential hypertension, benign; Type 2 diabetes mellitus with other specified complication, without long-term current use of insulin (HCC); Mixed hyperlipidemia; 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 (HCC) Start: 11-11-2022 ambulatory Hedy Owens RN [facility] Comment on above: Community Monitoring Outreach Start: 10-25-2022 Refill Helen June Work Phone: [facility] [place] Comment on above: Refill Request Glucometer/supplies issue Start: 10-07-2022 End: 10-07-[address] Helen Chapa Work Phone: [facility] Start: 10-03-2022 Telephone encounter Hollie Blevins MD Work Phone: Neurology Comment on above: Patient Update Start: 10-03-2022 End: 10-03-[address] [facility] Comment on above: Reassessment; Patien t Education Start: 09-30-2022 End: 09-30-2022 Patient encounter procedure Hollie Blevins MD Work Phone: Neurology Comment on above: RLS (restless legs s yndrome) (Primary Dx); Iron deficiency anemia, unspecified iron deficiency anemia type; MAURICE (obstructive sleep apnea) Start: 09-19-2022 Telephone encounter Laurie Tejedakatie PAPER TESTER.RUBY ON RAILS DEVELOPER Work Phone: Neurology Comment on above: Medication Problem Start: 09-16-2022 Telephone encounter Екатерина Escalante APRN.RUBY ON RAILS DEVELOPER Work Phone: [facility] [place] Comment on above: Results Start: 09-12-2022 End: 09-12-2022 Patient encounter procedure Randi Jimenez MD Work Phone: CADD MANAGER [facility] Comment on above: Post-operative state (Primary Dx); Urinary urgency; Urinary frequency Start: 09-08-2022 Telephone encounter Helen velásquez MD Work Phone: [facility] [place] Comment on above: Glucometer system PA Start: 09-06-2022 Telephone encounter Екатерина Escalante APRN.RUBY ON RAILS DEVELOPER Work Phone: [facility] [place] Comment on above: Orders Start: 08-29-2022 Telephone encounter Екатерина Escalante APRN.RUBY ON RAILS DEVELOPER Work Phone: [facility] [place] Comment on above: Patient Question Start: 08-22-2022 End: 08-22-[address] [facility] Comment on above: Reassessment; Patien t Education Start: 08-19-2022 Telephone encounter Helen velásquez MD Work Phone: [facility] [place] Comment on above: Medication Request Start: 08-18-2022 Refill Hollie capellan MD Work Phone: Neurology Comment on above: Refill Request Start: 08-17-2022 End: 08-17-2022 Patient encounter procedure Екатерина Escalante APRN.RUBY ON RAILS DEVELOPER Work Phone: [facility] [place] Comment on above: Essential hypertensi on, benign (Primary Dx); Type 2 diabetes mellitus with other specified complication, without long-term current use of insulin (HCC); Acute non-recurrent frontal sinusitis; Hypothyroidism, unspecified type Start: 07-22-2022 Refill Екатерина Older PAPER TESTER .RUBY ON RAILS DEVELOPER Work Phone: [facility] [place] Comment on above: Refill Request Start: 07-19-2022 Refill Екатерина Older PAPER TESTER .RUBY ON RAILS DEVELOPER Work Phone: [facility] [place] Comment on above: Refill Request Start: 06-27-2022 End: 06-27-[address] [facility] Comment on above: Reassessment; Patien t Education Start: 06-08-2022 Refill Екатерина Older PAPER TESTER .RUBY ON RAILS DEVELOPER Work Phone: [facility] [place] Comment on above: Refill Request Start: 06-06-2022 End: 06-06-2022 Patient encounter procedure Carol Mays PAPER TESTER.RUBY ON RAILS DEVELOPER Work Phone (unformatted): [phone] CADD MANAGER [facility] Comment on above: Post-operative state (Primary Dx); Vaginal discharge Start: 06-02-2022 Refill Екатерина Older PAPER TESTER .RUBY ON RAILS DEVELOPER Work Phone: [facility] [place] Comment on above: Refill Request Medication Problem Start: 05-25-2022 Refill Екатерина Older PAPER TESTER .RUBY ON RAILS DEVELOPER Work Phone: [facility] [place] Comment on above: Refill Request Start: 05-19-2022 End: 05-19-2022 Patient encounter procedure Laurie Cee PAPER TESTER.RUBY ON RAILS DEVELOPER Work Phone: Neurology Comment on above: RLS [...] procedure Randi Jimenez MD Work Phone: [facility] Start: 05-02-2022 End: 05-02-2022 Patient encounter status Randi Jimenez MD Work Phone: Urogynecology Start: 05-02-2022 End: 05-02-2022 Preprocedural examination done Randi Jimenez MD Work Phone: Urogynecology Start: 04-29-2022 Refill Helen June Work Phone: Internal Medicine [place] Comment on above: Refill Request Start: 04-28-2022 End: 04-28-2022 ambulatory Nurse Fairing Man Work Phone: Gynecology Comment on above: Educational circumst ances (Primary Dx) Start: 04-28-2022 End: 04-28-2022 Telemedicine consultation with patient Nurse Fairing Man Work Phone: [facility] Start: 04-28-2022 Telephone encounter Maria Del Rosario Cooney APRN.RUBY ON RAILS DEVELOPER Work Phone: Pre Anesthesia Comment on above: Returning Patient's Call Start: 04-27-2022 Telephone encounter Maria Del Rosario Cooney APRN.RUBY ON RAILS DEVELOPER Work Phone: Pre Anesthesia Comment on above: Patient Update (Surg larissa instructions) Start: 04-26-2022 ambulatory Randi billy MD Work Phone: CADD MANAGER [facility] Comment on above: Cardiac Clearance Start: 04-22-2022 Telephone encounter Maria Del Rosario Cooney APRN.RUBY ON RAILS DEVELOPER Work Phone: Pre Anesthesia Comment on above: Request for outside medical records Start: 04-22-2022 End: 04-22-2022 Admission to establishment [facility] 1 Work Phone: [facility] Start: 04-22-2022 End: 04-22-2022 ambulatory P[facility] 1 Work Phone: Pre Anesthesia Comment on above: Pre-operative examin ation (Primary Dx); Vaginal prolapse; Anxiety and depression; Chronic intractable headache, unspecified headache type; Chronic kidney disease, unspecified CKD stage; Class 3 severe obesity due to excess calories with serious comorbidity and body mass index (BMI) of 40.0 to 44.9 in adult ([facility]); 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 ([facility]); Essential hypertension, benign; Fibromyalgia; Gastroesophageal reflux disease with esophagitis, unspecified whether hemorrhage; Hypothyroidism, unspecified type; Iron deficiency anemia, unspecified iron deficiency anemia type; Mixed hyperlipidemia; 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; RLS (restless legs syndrome); Type 2 diabetes mellitus with other specified complication, without long-term current use of insulin ([facility]); Primary osteoarthritis involving multiple joints; Spinal stenosis of lumbar region with neurogenic claudication Start: 04-22-2022 End: 04-22-[address] [facility] 1 Work Phone: Pre Anesthesia Start: 04-21-2022 Refill Francesco Castrejon APRN.CNP Work Phone: Internal Medicine [place] Comment on above: Refill Request Start: 04-20-2022 Non-patient / Non-visit Dr. Stepan Chapa Work Phone: [facility] Start: 04-20-2022 End: 04-20-[address] Helen Chapa Work Phone: [facility] Work Phone: Start: 04-20-2022 End: 04-20-[address] Helen Chapa Work Phone: [facility] Start: 04-15-[address] Helen Chapa Work Phone: [facility] Start: 04-15-2022 End: 04-15-2022 Admission to same day surgery center Dr. Helen Chapa Work Phone: [facility] Start: 04-15-2022 End: 04-15-[address] Helen Chapa Work Phone: [facility] Start: 04-12-2022 End: 04-12-[address] Helen Chapa Work Phone: [facility] Work Phone: Start: 04-12-2022 End: 04-12-[address] Helen Chapa Work Phone: [facility], [facility] Start: 04-04-2022 Telephone encounter Randi pillai MD [...] Helen velásquez MD Work Phone: Internal Medicine [place] Comment on above: Glyburide update FYI-No Action Needed Start: 02-28-2022 End: 02-28-[address] Nutrition Therapy Comment on above: Reassessment; Patien t Education Start: 02-25-2022 End: 02-25-2022 Subsequent hospital visit by physician Netta [facility] Work Phone: Radiology Comment on above: Dwain xavier [M21.4 1, M21.42] Start: 02-21-2022 Refill Helen June Work Phone: Internal Medicine [place] Comment on above: Prescription Refills Start: 01-31-2022 ambulatory Roman Knott RN Am [facility] Care Management Comment on above: Insight Escalation ( Music Rehabilitation Therapist Questionnaire Triggered call) Start: 01-31-2022 Telephone encounter Helen velásquez MD Work Phone: [address] [place] [address] Comment on above: Lab Orders Start: 01-25-2022 ambulatory Helen June Work Phone: Internal Medicine [facility] Start: 01-24-2022 Refill Helen June Work Phone: Internal Medicine [place] Comment on above: Refill Request Start: 01-03-2022 End: 01-03-2022 Subsequent hospital visit by physician [facility] Work Phone: Radiology Comment on above: Status post total bi lateral knee replacement [Z96.653] Start: 01-03-2022 End: 01-03-2022 Patient encounter procedure Lety Haywood PA-C Work Phone: Orthopaedics Comment on above: Right hip pain (Prim everette Dx); Primary osteoarthritis of right hip; Status post total bilateral knee replacement Start: 01-01-2022 Refill Bri Romero APR N.RUBY ON RAILS DEVELOPER Work Phone: Gastroenterology Comment on above: Refill Request Start: 12-28-2021 Telephone encounter Lety wallace PA-C Work Phone: Orthopaedics Comment on above: follow up right hip pain Start: 12-27-2021 End: 12-27-[address] Helen Chapa Work Phone: [facility] Start: 12-16-2021 Telephone encounter Iris Mustafa MD Work Phone: OB/Gynecology Comment on above: Patient Update Start: 12-13-2021 ambulatory Bri Romero APR N.RUBY ON RAILS DEVELOPER Work Phone: Gastroenterology Comment on above: symptoms Start: 12-06-2021 ambulatory Bri Romero APR N.RUBY ON RAILS DEVELOPER Work Phone: Gastroenterology Comment on above: CHOLESTYRAMINE Start: 12-03-2021 Documentation procedure Mammog cecile Coordinator [facility] Start: 12-03-2021 Letter encounter Mammography Coordinator [facility] Department Start: 11-30-2021 End: 11-30-2021 Patient [...] Escalante APRN, .CNP Work Phone: Internal Medicine [place] Comment on above: Refill Request Start: 11-23-2021 Refill Elsa Mayorga APRN.CNP Work Phone: Internal Medicine [place] Comment on above: Refill Request Start: 11-18-2021 ambulatory Roman Knott RN Am [facility] Care Management Comment on above: Community Monitoring Outreach (CKD CDM Enrollment Outreach) Start: 11-17-2021 End: 11-17-2021 Patient encounter procedure Mckinley Jaocbsen PA-C Work Phone: [facility] [place] Comment on above: 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); Somatic dysfunction of lumbar region Start: 11-08-2021 End: 11-08-[address] Nutrition Therapy Comment on above: Patient Education; A ssessment Start: 10-04-2021 End: 10-04-2021 Subsequent hospital visit by physician Netta [facility] Work Phone: Radiology Comment on above: Low back pain, unspe cified back pain laterality, unspecified chronicity, unspecified whether sciatica present [M54.50] Start: 04-13-2021 End: 04-13-2021 Subsequent hospital visit by physician Netta [facility] Work Phone: Radiology Comment on above: Right hip pain [M25. 551] Start: 03-01-2021 End: 03-03-2021 Evaluation and management of inpatient Fabian Lynch MD Work Phone: [facility] Comment on above: Coronary artery dise ase due to calcified coronary lesion (Primary Dx) Start: 07-22-2020 End: 07-22-2020 Subsequent hospital visit by physician Netta [facility] Work Phone: Radiology Comment on above: Fall, initial encoun ter [W19.XXXA] Start: 06-11-2020 End: 06-12-2020 Patient encounter procedure HOLLIE Billy ABDOULAYE [facility] Procedures Date Procedure Procedure Detail Performing Clinician [...] stick/tablet rgnt auto w/o microscopy Carol Mays APRN.RUBY ON RAILS DEVELOPER Work Phone (unformatted): [phone] Start: 05-02-2022 Urnls dip stick/tablet rgnt auto [...] unilateral with pelvis 2-3 views Francesco Castrejon RUBY ON RAILS DEVELOPER Work Phone: Start: 03-03-2021 Gluc bld gluc [...] bones complete minimum 3 views Alessia Luigi GALANRUBY ON RAILS DEVELOPER Work Phone: History of placement of stent for coronary artery disease History of heart artery stent Randi Jimenez MD Work Phone: Plan of Treatment Date Care Activity Detail Author Start: 01-28-2034 Urine microalbumin profile DTaP,Tdap,Td Vaccine (3 - Td or Tdap) [facility] Start: 02-24-2026 Annual PCP Team Chronic Disease Visit Annual PCP Team Chronic Disease Visit [facility] Start: 02-24-2026 Creatinine measurement Serum Creatinine [facility] Start: 02-24-2026 Hepatitis B screening Urine Albumin:Creatinine Ratio [facility] Start: 02-04-2026 Diabetic foot examination Diabetic Foot Exam [facility] Start: 11-03-2025 End: 11-03-2025 Patient encounter procedure 11/03/2025 10:20 AM EDT Office Visit Neurology [address] [place] [id number] Hollie Blevins Jr., MD [address] [place], [place] [id number] 6 month follow up Neurology Comment on above: 6 month follow up Start: 08-27-2025 Hemoglobin A1c measurement HbA1C [facility] Start: 08-26-2025 Annual PCP Team Chronic Disease Visit Annual PCP Team Chronic Disease Visit [facility] Start: 08-26-2025 Covid-19 Vaccine ( season) Covid-19 Vaccine () [facility] Comment on above: Postponed from 04/14/2024 (Declined at t his time) Start: 08-20-2025 Creatinine measurement Serum Creatinine [facility] Start: 08-20-2025 Hepatitis B surface antibody level LDL Cholesterol [facility] Start: 06-02-2025 End: 06-02-2025 Follow-up encounter 06/02/2025 11:00 AM EDT Education Nutrition Therapy [address] [place] [id number] Radha High [address] [place] [address] 6 week follow up Nutrition Therapy Comment on above: 6 week follow up Start: 05-29-2025 End: 05-29-2025 Patient encounter procedure 05/29/2025 11:00 AM EDT Office Visit Internal Medicine [place] [address] [place] [address] Екатерина Escalante APRN.RUBY ON RAILS DEVELOPER [address] [place] [address] Medicare Internal Medicine [place] Comment on above: Medicare Start: 05-16-2025 Glaucoma screening Dilated Retinal Exam [facility] Start: 05-12-2025 End: 05-12-2025 Patient encounter procedure 05/12/2025 9:30 AM EDT Office Visit Orthopaedics [address] [place] [address] Lety Haywood PA-C [address] [place], [place] [id number] Follow up-hip Orthopaedics Comment on above: Follow up-hip Start: 04-23-2025 End: 07-23-2025 Ferritin [Mass/volume] in Serum or Plasma FERRITIN Lab Routine RLS (restless legs syndrome) Iron deficiency anemia, unspecified iron deficiency anemia type Expected: 04/23/2025, Expires: 07/23/2025 [facility] Work Phone: Comment on above: Expected: 04/23/2025, Expires: Start: 04-23-2025 End: 07-23-2025 Iron and Iron binding capacity panel - Serum or Plasma IRON AND TIBC Lab Routine RLS (restless legs syndrome) Iron deficiency anemia, unspecified iron deficiency anemia type Expected: 04/23/2025, Expires: 07/23/2025 [facility] Comment on above: Expected: 04/23/2025, Expires: Start: 04-23-2025 End: 04-23-2025 Patient encounter procedure 04/23/2025 10:00 AM EDT Office Visit Neurology [address] [place], [place] [address] Altagracia Constantino APRN.RUBY ON RAILS DEVELOPER [address] [place] [address] 3 month follow up Neurology Comment on above: 3 month follow up Start: 04-21-2025 End: 04-21-2025 Follow-up encounter 04/21/2025 11:00 AM EDT Education Nutrition Therapy [address] [place] [address] [place] [address] 6 week follow up Nutrition Therapy Comment on above: 6 week follow up Start: 04-14-2025 Influenza vaccination [facility] Start: 04-10-2025 End: 04-10-2025 Patient encounter procedure 04/10/2025 10:45 AM EDT Office Visit Podiatry [address] [place] [address] Anderson Mims [address] [facility] [place] [address] 6 week follow up B/L hammer toes Podiatry Comment on above: 6 week follow up B/L hammer toes Start: 03-10-2025 End: 03-10-2025 Follow-up encounter 03/10/2025 11:00 AM EDT Education Nutrition Therapy [address] [place] [address] [place] [address] 6 week follow up Nutrition Therapy Comment on above: 6 week follow up Start: 02-24-2025 End: 05-26-2025 LUAN BY ANGIE LUNA [facility] Work Phone: Comment on above: Expected: 02/24/2025, Expires: Start: 02-24-2025 End: 02-24-2025 Patient encounter procedure 02/24/2025 1:00 PM EDT Office Visit Internal Medicine [place] [address] [place] [address] Екатерина Escalante APRN.RUBY ON RAILS DEVELOPER [address] [facility] [place] [address] 6 month follow up Internal Medicine [place] Comment on above: 6 month follow up Start: 02-20-2025 Annual PCP Team Chronic Disease Visit Annual PCP Team Chronic Disease Visit [facility] Start: 02-17-2025 End: 05-19-2025 Basic metabolic 2000 panel - Serum or Plasma BASIC METABOLIC PANEL Lab Routine Type 2 diabetes mellitus with other specified complication, without long-term current use of insulin (HCC) Essential hypertension, benign Expected: 02/17/2025 (Approximate), Expires: 05/19/2025 [facility] Comment on above: Expected: 02/17/2025 (Approximate), Expi res: 05/19/2025 Start: 02-17-2025 End: 05-19-2025 Hemoglobin A1c in Blood HEMOGLOBIN A1C Lab Routine Type 2 diabetes mellitus with other specified complication, without long-term current use of insulin (HCC) Expected: 02/17/2025 (Approximate), Expires: 05/19/2025 [facility] Comment on above: Expected: 02/17/2025 (Approximate), Expi res: 05/19/2025 Start: 02-17-2025 Hemoglobin A1c measurement HbA1C [facility] Start: 02-17-2025 End: 05-19-2025 Thyrotropin [Units/volume] in Serum or Plasma THYROID STIMULATING HORMONE Lab Routine Hypothyroidism, unspecified type Expected: 02/17/2025 (Approximate), Expires: 05/19/2025 [facility] Work Phone: Comment on above: Expected: 02/17/2025 (Approximate), Expi res: 05/19/2025 Start: 02-12-2025 Hepatitis B screening Urine Albumin:Creatinine Ratio [facility] Start: 02-12-2025 Hepatitis B surface antibody level LDL Cholesterol [facility] Start: 02-10-2025 Influenza vaccination Influenza Vaccine (#1) [facility] Comment on above: Postponed from 04/14/2024 (Declined at t his time) Start: 02-04-2025 End: 02-04-2025 Patient encounter procedure 02/04/2025 11:00 AM EDT Office Visit Podiatry [address] [place] [address] Anderson Mims [address] [place] [address] follow up after PVR Podiatry Comment on above: follow up after PVR Start: 01-29-2025 End: 01-29-2025 Patient encounter procedure 01/29/2025 11:00 AM EDT Office Visit Vasculary Surgery [address] [place] [address] 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 [place] [place] [address] [place] [address] 6 week follow up Nutrition Therapy Comment on above: 6 week follow up Start: 01-20-2025 End: 01-20-2025 Patient encounter procedure 01/20/2025 10:40 AM EDT Office Visit Neurology [address] [place] [address] Hollie Blevins Jr., MD [address] [place] [address] 6 month RLS follow up Neurology Comment on above: 6 month RLS follow up Start: 12-17-2024 BP Controlled (<130/80) BP Controlled (<130/80) [facility] Start: 12-09-2024 End: 12-09-2024 Follow-up encounter 12/09/2024 11:00 AM EDT Education Nutrition Therapy [address] [place] [address] [place] [address] 6-8 week follow up Nutrition Therapy Comment on above: 6-8 week follow up Start: 10-28-2024 End: 10-28-2024 Follow-up encounter 10/28/2024 11:00 AM EDT Education Nutrition Therapy [address] [place] [place] [address] [place] [address] 6-8 week follow up Nutrition Therapy Comment on above: 6-8 week follow up Start: 09-18-2024 Creatinine measurement Serum Creatinine [facility] Start: 09-09-2024 End: 09-09-2024 Follow-up encounter 09/09/2024 1:00 PM EST Education Nutrition Therapy [address] [facility] [place] [place] [address] [place] [address] 6 week follow up Nutrition Therapy Comment on above: 6 week follow up Start: 08-26-2024 End: 08-26-2024 Patient encounter procedure 08/26/2024 2:20 PM EST Office Visit Internal Medicine [place] [address] [place] [address] Екатерина Escalante APRN.RUBY ON RAILS DEVELOPER [address] [place] [address] 6 Month follow up Internal Medicine [place] Comment on above: 6 Month follow up Start: 08-23-2024 Annual PCP Team Chronic Disease Visit Annual PCP Team Chronic Disease Visit [facility] Start: 08-23-2024 RSV Vaccine (1 - 1-dose 60+ series) RSV Vaccine (1 - 1-dose 60+ series) [facility] Comment on above: Postponed from 2005 (Declined at t his time) Start: 08-19-2024 End: 11-18-2024 CBC panel - Blood by Automated count COMPLETE BLOOD COUNT Lab Routine Type 2 diabetes mellitus without complication, without long-term current use of insulin (HCC) Essential hypertension, benign Expected: 08/19/2024 (Approximate), Expires: 11/18/2024 [facility] Comment on above: Expected: 08/19/2024 (Approximate), Expi res: 11/18/2024 Start: 08-19-2024 End: 11-18-2024 Comprehensive metabolic 2000 panel - Serum or Plasma COMPREHENSIVE METABOLIC PANEL Lab Routine Type 2 diabetes mellitus without complication, without long-term current use of insulin (HCC) Essential hypertension, benign Mixed hyperlipidemia Expected: 08/19/2024 (Approximate), Expires: 11/18/2024 [facility] Comment on above: Expected: 08/19/2024 (Approximate), Expi res: 11/18/2024 Start: 08-19-2024 End: 11-18-2024 Hemoglobin A1c in Blood HEMOGLOBIN A1C Lab Routine Type 2 diabetes mellitus without complication, without long-term current use of insulin (HCC) Expected: 08/19/2024 (Approximate), Expires: 11/18/2024 [facility] Comment on above: Expected: 08/19/2024 (Approximate), Expi res: 11/18/2024 Start: 08-19-2024 End: 11-18-2024 Lipid 1996 panel - Serum or Plasma LIPID PANEL BASIC Lab Routine Mixed hyperlipidemia Expected: 08/19/2024 (Approximate), Expires: 11/18/2024 [facility] Comment on above: Expected: 08/19/2024 (Approximate), Expi res: 11/18/2024 Start: 08-19-2024 End: 11-18-2024 Thyrotropin [Units/volume] in Serum or Plasma THYROID STIMULATING HORMONE Lab Routine Hypothyroidism, unspecified type Expected: 08/19/2024 (Approximate), Expires: 11/18/2024 [facility] Comment on above: Expected: 08/19/2024 (Approximate), Expi res: 11/18/2024 Start: 08-19-2024 End: 08-19-2024 Follow-up encounter 08/19/2024 8:00 AM EST Education Nutrition Therapy [address] [place] [address] Radha High, RD [address] [place] [address] 6 week follow up Nutrition Therapy Comment on above: 6 week follow up Start: 08-15-2024 Hemoglobin A1c measurement HbA1C [facility] Start: 08-14-2024 Advance Directive Discussion Advance Directive Discussion [facility] Start: 08-14-2024 Medicare Advantage Annual Wellness Visit Medicare Advantage Annual Wellness Visit [facility] Start: 06-24-2024 End: 06-24-2024 Follow-up encounter 06/24/2024 12:15 PM EST Education Nutrition Therapy [address] [place] [address] Radha High, [address] [place] [address] 6 week follow up Nutrition Therapy Comment on above: 6 week follow up Start: 06-21-2024 End: 09-20-2024 25-hydroxyvitamin D3 [Mass/volume] in Serum or Plasma VITAMIN D 25 HYDROXY Lab Routine Vitamin D deficiency RLS (restless legs syndrome) Expected: 06/21/2024, Expires: 09/20/2024 [facility] Work Phone: Comment on above: Expected: 06/21/2024, Expires: Start: 06-21-2024 End: 09-20-2024 Ferritin [Mass/volume] in Serum or Plasma FERRITIN Lab Routine RLS (restless legs syndrome) Iron deficiency anemia, unspecified iron deficiency anemia type Expected: 06/21/2024, Expires: 09/20/2024 [facility] Comment on above: Expected: 06/21/2024, Expires: Start: 06-21-2024 End: 09-20-2024 Iron and Iron binding capacity panel - Serum or Plasma IRON AND TIBC Lab Routine RLS (restless legs syndrome) Iron deficiency anemia, unspecified iron deficiency anemia type Expected: 06/21/2024, Expires: 09/20/2024 [facility] Comment on above: Expected: 06/21/2024, Expires: Start: 06-21-2024 End: 06-21-2024 Patient encounter procedure 06/21/2024 10:00 AM EST Office Visit Neurology [address] [place] [address] Altagracia Constantino, GREG.RUBY ON RAILS DEVELOPER [address] [place] [address] 6 month follow up Neurology Comment on above: 6 month follow up Start: 05-30-2024 Covid-19 Vaccine () Covid-19 Vaccine () [facility] Start: 05-18-2024 Annual PCP Team Chronic Disease Visit Annual PCP Team Chronic Disease Visit [facility] Start: 05-18-2024 BP Controlled (<130/80) BP Controlled (<130/80) [facility] Start: 05-18-2024 Covid-19 Vaccine ( season) Covid-19 Vaccine () [facility] Comment on above: Postponed from 04/14/2023 (Declined at t his time) Start: 05-18-2024 Covid-19 Vaccine (4 - Moderna series) Covid-19 Vaccine (4 - Moderna series) [facility] Comment on above: Postponed from 11/23/2021 (Declined at t his time) Start: 05-18-2024 Hepatitis B Vaccine (1 of 3 - Risk 3-dose series) Hepatitis B Vaccine (1 of 3 - Risk 3-dose series) [facility] Comment on above: Postponed from 2005 (Declined at t his time) Start: 05-13-2024 End: 05-13-2024 Follow-up encounter 05/13/2024 10:15 AM EDT Education Nutrition Therapy [address] [place] [address] [place] [address] 6 week follow up Nutrition Therapy Comment on above: 6 week follow up Start: 05-01-2024 Glaucoma screening Dilated Retinal Exam [facility] Start: 05-01-2024 Hepatitis C antibody, confirmatory test Dilated Retinal Exam [facility] Start: 04-14-2024 Covid-19 Vaccine () Covid-19 Vaccine () [facility] Start: 04-14-2024 Influenza vaccination Influenza Vaccine (#1) [facility] Start: 04-05-2024 BP CONTROLLED (<130/80) BP CONTROLLED (<130/80) [facility] Start: 04-03-2024 BP CONTROLLED (<130/80) BP CONTROLLED (<130/80) [facility] Start: 04-01-2024 End: 04-01-2024 Follow-up encounter 04/01/2024 1:00 PM EDT Education Nutrition Therapy [address] [place] [address] [place] [address] 2 month follow up Nutrition Therapy Comment on above: 2 month follow up Start: 03-20-2024 BP CONTROLLED (<130/80) BP CONTROLLED (<130/80) [facility] Start: 03-18-2024 Hemoglobin A1c measurement HbA1C [facility] Start: 03-17-2024 BP CONTROLLED (<130/80) BP CONTROLLED (<130/80) [facility] Start: 03-16-2024 Creatinine measurement Serum Creatinine [facility] Start: 03-16-2024 SERUM CREATININE SERUM CREATININE [facility] Start: 03-04-2024 End: 03-04-2024 Patient encounter procedure 03/04/2024 11:30 AM EDT Appointment Mammogram [address] [place] [address] Encounter for screening mammogram for malignant neoplasm of breast [Z12.31] Mammogram Comment on above: Encounter for screening mammogram for ma lignant neoplasm of breast [Z12.31] Start: 02-28-2024 SERUM CREATININE SERUM CREATININE [facility] Start: 02-26-2024 End: 02-26-2024 Follow-up encounter 02/26/2024 11:00 AM EDT Education Nutrition Therapy [address] [facility] [place] [place] [address] [place] [address] 6 week follow up Nutrition Therapy Comment on above: 6 week follow up Start: 02-21-2024 End: 05-22-2024 Thyrotropin [Units/volume] in Serum or Plasma [facility] Comment on above: Expected: 02/21/2024, Expires: Start: 02-21-2024 End: 05-22-2024 Thyroxine (T4) free [Mass/volume] in Serum or Plasma [facility] Comment on above: Expected: 02/21/2024, Expires: Start: 02-21-2024 End: 05-22-2024 Triiodothyronine (T3) Free [Mass/volume] in Serum or Plasma [facility] Comment on above: Expected: 02/21/2024, Expires: 4 Start: 02-21-2024 End: 02-21-2024 Patient encounter procedure 02/21/2024 10:20 AM EDT Office Visit [facility] [place] [address] [facility] [place] [place] [address] Екатерина Escalante APRN.[employer] DEVELOPER [address] [place] [address] 6 month follow up [facility] Comment on above: 6 month follow up Start: 02-06-2024 End: 05-07-2024 Hemoglobin A1c in Blood HEMOGLOBIN A1C Lab Routine Type 2 diabetes mellitus, without long-term current use of insulin (HCC) Expected: 02/06/2024, Expires: 05/07/2024 [facility] Comment on above: Expected: 02/06/2024, Expires: 4 Start: 02-06-2024 End: 05-07-2024 Lipid 1996 panel - Serum or Plasma LIPID PANEL BASIC Lab Routine Mixed hyperlipidemia Expected: 02/06/2024, Expires: 05/07/2024 [facility] Comment on above: Expected: 02/06/2024, Expires: Start: 02-06-2024 End: 05-07-2024 Microalbumin/Creatinine [Mass Ratio] in Urine ALBUMIN/CREATININE RATIO, URINE Lab Routine Type 2 diabetes mellitus, without long-term current use of insulin (HCC) Expected: 02/06/2024, Expires: 05/07/2024 [facility] Work Phone: Comment on above: Expected: 02/06/2024, Expires: 4 Start: 01-27-2024 3 comp foot exam completed DIABETIC FOOT EXAM [facility] Start: 01-27-2024 Diabetic foot examination Diabetic Foot Exam [facility] Start: 01-01-2024 End: 01-01-2024 Follow-up encounter 01/01/2024 11:00 AM EDT Education Nutrition Therapy [address] [place] [address] Radha High, A[place] [address] [place] [address] 6 week follow up Nutrition Therapy Comment on above: 6 week follow up Start: 11-26-2023 Hepatitis B surface antibody level LDL CHOLESTEROL [facility] Start: 11-26-2023 SERUM CREATININE SERUM CREATININE [facility] Start: 11-17-2023 ANNUAL PCP TEAM CHRONIC DISEASE VISIT ANNUAL PCP TEAM CHRONIC DISEASE VISIT [facility] Start: 11-17-2023 Medicare Annual Wellness Visit Medicare Annual Wellness Visit [facility] Start: 11-17-2023 Urine microalbumin profile [facility] Comment on above: Postponed from 06/08/2021 (Declined at t his time) Start: 11-11-2023 Hemoglobin A1c measurement HbA1C [facility] Start: 11-11-2023 Hemoglobin A1c/Hemoglobin.total in Blood HbA1C [facility] Start: 08-23-2023 End: 11-22-2023 ALBUMIN/CREAT RATIO RND UR ALBUMIN/CREAT RATIO RND UR Lab Routine Type 2 diabetes mellitus without complication, without long-term current use of insulin (HCC) Expected: 08/23/2023, Expires: 11/22/2023 [facility] Work Phone: Comment on above: Expected: 08/23/2023, Expires: Start: 08-23-2023 End: 11-22-2023 CBC panel - Blood by Automated count CBC Lab Routine Type 2 diabetes mellitus without complication, without long-term current use of insulin (HCC) Essential hypertension, benign Expected: 08/23/2023, Expires: 11/22/2023 [facility] Work Phone: Comment on above: Expected: 08/23/2023, Expires: Start: 08-23-2023 End: 11-22-2023 Comprehensive metabolic 2000 panel - Serum or Plasma COMP METABOLIC PANEL Lab Routine Type 2 diabetes mellitus without complication, without long-term current use of insulin (HCC) Essential hypertension, benign 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 (HCC) Expected: 08/23/2023, Expires: 11/22/2023 [facility] Work Phone: Comment on above: Expected: 08/23/2023, Expires: Start: 08-23-2023 End: 11-22-2023 Hemoglobin A1c in Blood HGB A1C Lab Routine Type 2 diabetes mellitus without complication, without long-term current use of insulin (HCC) Expected: 08/23/2023, Expires: 11/22/2023 [facility] Work Phone: Comment on above: Expected: 08/23/2023, Expires: Start: 08-23-2023 End: 11-22-2023 Lipid 1996 panel - Serum or Plasma LIPID PANEL BASIC Lab Routine 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 (HCC) Expected: 08/23/2023, Expires: 11/22/2023 [facility] Work Phone: Comment on above: Expected: 08/23/2023, Expires: Start: 08-23-2023 End: 11-22-2023 Thyrotropin [Units/volume] in Serum or Plasma TSH BLD Lab Routine Hypothyroidism, unspecified type Expected: 08/23/2023, Expires: 11/22/2023 [facility] Work Phone: Comment on above: Expected: 08/23/2023, Expires: Start: 08-17-2023 ANNUAL PCP TEAM CHRONIC DISEASE VISIT ANNUAL PCP TEAM CHRONIC DISEASE VISIT [facility] Start: 08-17-2023 SERUM CREATININE SERUM CREATININE [facility] Start: 05-27-2023 Hemoglobin A1c/Hemoglobin.total in Blood HBA1C [facility] Start: 05-14-2023 End: 07-14-2023 Hemoglobin A1c in Blood HGB A1C Lab Routine Impaired fasting glucose Expected: 05/14/2023 (Approximate), Expires: 07/14/2023 [facility] Work Phone: Comment on above: Expected: 05/14/2023 (Approximate), Expi res: 07/14/2023 Start: 04-14-2023 Influenza vaccination INFLUENZA (#1) [facility] Start: 04-13-2023 SERUM CREATININE SERUM CREATININE [facility] Start: 03-04-2023 Hepatitis C antibody, confirmatory test DILATED RETINAL EXAM [facility] Start: 02-27-2023 End: 04-29-2023 TYPE AND SCREEN,30 DAY [facility] Work Phone: Comment on above: Expected: 02/27/2023, Expires: 3 Start: 02-14-2023 Hemoglobin A1c/Hemoglobin.total in Blood HBA1C [facility] Start: 02-11-2023 3 comp foot exam completed DIABETIC FOOT EXAM [facility] Start: 02-11-2023 ANNUAL PCP TEAM CHRONIC DISEASE VISIT ANNUAL PCP TEAM CHRONIC DISEASE VISIT [facility] Start: 02-11-2023 COVID-19 VACCINE (4 - Booster for Moderna series) COVID-19 VACCINE (4 - Booster for Moderna series) [facility] Comment on above: Postponed from 01/26/2022 (Declined at t his time) Postponed from 11/23 (Declined at this time) Start: 02-11-2023 SHINGRIX VACCINE (2 of 2) SHINGRIX VACCINE (2 of 2) [facility] Comment on above: Postponed from 07/28/2020 (Declined at t his time) Start: 02-03-2023 HEMOGLOBIN/HEMATOCRIT HEMOGLOBIN/HEMATOCRIT [facility] Start: 02-03-2023 Hepatitis B screening URINE ALBUMIN:CREATININE RATIO [facility] Start: 02-03-2023 Hepatitis B surface antibody level LDL CHOLESTEROL [facility] Start: 12-08-2022 BP CONTROLLED (<130/80) BP CONTROLLED (<130/80) [facility] Start: 11-30-2022 BP CONTROLLED (<130/80) BP CONTROLLED (<130/80) [facility] Start: 11-16-2022 End: 01-16-2023 CBC W Auto Differential panel - Blood CBC + DIFF Lab Routine Essential hypertension, benign Type 2 diabetes mellitus with other specified complication, without long-term current use of insulin (HCC) 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 (HCC) Expected: 11/16/2022, Expires: 01/16/2023 [facility] Work Phone: Comment on above: Expected: 11/16/2022, Expires: 3 Start: 11-16-2022 End: 01-16-2023 Comprehensive metabolic 2000 panel - Serum or Plasma COMP METABOLIC PANEL Lab Routine Essential hypertension, benign Type 2 diabetes mellitus with other specified complication, without long-term current use of insulin (HCC) Mixed hyperlipidemia 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 (HCC) Expected: 11/16/2022, Expires: 01/16/2023 [facility] Work Phone: Comment on above: Expected: 11/16/2022, Expires: 3 Start: 11-16-2022 End: 01-16-2023 Hemoglobin A1c in Blood HGB A1C Lab Routine Type 2 diabetes mellitus with other specified complication, without long-term current use of insulin (HCC) 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 (HCC) Expected: 11/16/2022, Expires: 01/16/2023 [facility] Work Phone: Comment on above: Expected: 11/16/2022, Expires: 3 Start: 11-16-2022 End: 01-16-2023 Lipid 1996 panel - Serum or Plasma LIPID PANEL BASIC Lab Routine Mixed hyperlipidemia 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 (HCC) Expected: 11/16/2022, Expires: 01/16/2023 [facility] Work Phone: Comment on above: Expected: 11/16/2022, Expires: 3 Start: 11-16-2022 End: 01-16-2023 Thyrotropin [Units/volume] in Serum or Plasma TSH BLD Lab Routine Hypothyroidism, unspecified type Expected: 11/16/2022, Expires: 01/16/2023 [facility] Work Phone: Comment on above: Expected: 11/16/2022, Expires: 3 Start: 11-01-2022 ANNUAL PCP TEAM CHRONIC DISEASE VISIT ANNUAL PCP TEAM CHRONIC DISEASE VISIT [facility] Start: 11-01-2022 Urine microalbumin profile DTAP,TDAP,TD (2 - Td or Tdap) [facility] Comment on above: Postponed from 06/08/2021 (Declined at t his time) Start: 09-03-2022 PNEUMOCOCCAL: 65+ (2 - PPSV23 if available, else PCV20) PNEUMOCOCCAL: 65+ (2 - PPSV23 if available, else PCV20) [facility] Comment on above: Postponed from 06/08/2020 (Declined at t his time) Start: 09-03-2022 PNEUMOCOCCAL: 65+ (2 - PPSV23 or PCV20) PNEUMOCOCCAL: 65+ (2 - PPSV23 or PCV20) [facility] Comment on above: Postponed from 06/08/2020 (Declined at t his time) Start: 09-03-2022 PNEUMOVAX AGE 65 AND OVER WITH 5YR LOOKBACK (#1) PNEUMOVAX AGE 65 AND OVER WITH 5YR LOOKBACK (#1) [facility] Comment on above: Postponed from 2010 (Declined at t his time) Start: 08-18-2022 SERUM CREATININE SERUM CREATININE [facility] Start: 08-14-2022 ADVANCE DIRECTIVE DISCUSSION ADVANCE DIRECTIVE DISCUSSION [facility] Start: 08-05-2022 Hemoglobin A1c/Hemoglobin.total in Blood HBA1C [facility] Start: 05-19-2022 End: 07-19-2022 Ferritin [Mass/volume] in Serum or Plasma [facility] Work Phone: Comment on above: Expected: 05/19/2022, Expires: 2 Start: 05-19-2022 End: 07-19-2022 Iron and Iron binding capacity panel - Serum or Plasma [facility] Work Phone: Comment on above: Expected: 05/19/2022, Expires: 2 Start: 04-15-2022 Evaluation of diagnostic study results [facility] Work Phone: Start: 04-14-2022 Influenza vaccination INFLUENZA (#1) [facility] Start: 04-09-2022 HEMOGLOBIN/HEMATOCRIT HEMOGLOBIN/HEMATOCRIT [facility] Start: 03-19-2022 Hepatitis B screening URINE ALBUMIN:CREATININE RATIO [facility] Start: 03-03-2022 Creatinine measurement Creatinine monitoring [facility] Work Phone: Start: 03-03-2022 Potassium monitoring Potassium monitoring [facility] Work Phone: Start: 02-16-2022 3 comp foot exam completed DIABETIC FOOT EXAM [facility] Start: 02-15-2022 Hemoglobin A1c/Hemoglobin.total in Blood HBA1C [facility] Start: 02-11-2022 Hepatitis B surface antibody level LDL CHOLESTEROL [facility] Start: 02-04-2022 Hepatitis C antibody, confirmatory test DILATED RETINAL EXAM [facility] Start: 02-01-2022 End: 04-03-2022 Lipid 1996 panel - Serum or Plasma LIPID PANEL BASIC Lab Routine Mixed hyperlipidemia Expected: 02/01/2022, Expires: 04/03/2022 [facility] Work Phone: Comment on above: Expected: 02/01/2022, Expires: 2 Start: 02-01-2022 End: 04-03-2022 Thyrotropin [Units/volume] in Serum or Plasma TSH BLD Lab Routine Hypothyroidism, unspecified type Expected: 02/01/2022, Expires: 04/03/2022 [facility] Work Phone: Comment on above: Expected: 02/01/2022, Expires: 2 Start: 01-26-2022 COVID-19 VACCINE (4 - Booster for Moderna series) COVID-19 VACCINE (4 - Booster for Moderna series) [facility] Start: 01-25-2022 End: 03-27-2022 ALBUMIN/CREAT RATIO RND UR ALBUMIN/CREAT RATIO RND UR Lab Routine Type 2 diabetes mellitus, without long-term current use of insulin (HCC) Expected: 01/25/2022, Expires: 03/27/2022 [facility] Work Phone: Comment on above: Expected: 01/25/2022, Expires: 2 Start: 01-25-2022 End: 03-27-2022 CBC panel - Blood by Automated count CBC Lab Routine Type 2 diabetes mellitus, without long-term current use of insulin (HCC) Expected: 01/25/2022, Expires: 03/27/2022 [facility] Work Phone: Comment on above: Expected: 01/25/2022, Expires: 2 Start: 01-25-2022 End: 03-27-2022 Hemoglobin A1c in Blood HGB A1C Lab Routine Type 2 diabetes mellitus, without long-term current use of insulin (HCC) Expected: 01/25/2022, Expires: 03/27/2022 [facility] Work Phone: Comment on above: Expected: 01/25/2022, Expires: 2 Start: 01-25-2022 End: 03-27-2022 SCHEDULE LAB TESTING SCHEDULE LAB TESTING Lab Routine Expected: 01/25/2022, Expires: 03/27/2022 [facility] Work Phone: Comment on above: Expected: 01/25/2022, Expires: 2 Start: 11-29-2021 End: 01-29-2022 FERRITIN BLD FERRITIN BLD Lab Routine Restless legs Iron deficiency anemia, unspecified iron deficiency anemia type Expected: 11/29/2021, Expires: 01/29/2022 [facility] Work Phone: Comment on above: Expected: 11/29/2021, Expires: 2 Start: 11-29-2021 End: 01-29-2022 IRON + TIBC IRON + TIBC Lab Routine Restless legs Iron deficiency anemia, unspecified iron deficiency anemia type Expected: 11/29/2021, Expires: 01/29/2022 [facility] Work Phone: Comment on above: Expected: 11/29/2021, Expires: 2 Start: 11-23-2021 COVID-19 VACCINE (4 - Moderna series) COVID-19 VACCINE (4 - Moderna series) [facility] Start: 06-08-2021 Urine microalbumin profile [facility] Start: 04-14-2021 Influenza vaccination Flu vaccine (#1) [facility] Work Phone: Start: 07-28-2020 SHINGRIX VACCINE (2 of 2) SHINGRIX VACCINE (2 of 2) [facility] Start: 06-08-2020 PNEUMOCOCCAL: 65+ (2 - PPSV23 if available, else PCV20) PNEUMOCOCCAL: 65+ (2 - PPSV23 if available, else PCV20) [facility] Start: 08-03-2019 PNEUMOCOCCAL: 65+ (2 - PPSV23 if available, else PCV20) PNEUMOCOCCAL: 65+ (2 - PPSV23 if available, else PCV20) [facility] Start: 2005 RSV Vaccine (1 - 1-dose 60+ series) RSV Vaccine (1 - 1-dose 60+ series) [facility] Start: 1963 BP CONTROLLED (<130/80) BP CONTROLLED (<130/80) [facility] BACTERIAL VAGINOSIS AMPLIFICATION BACTERIAL VAGINOSIS AMPLIFICATION Lab Routine Vaginal discharge 06/06/2022 2:40 PM EDT [facility] Work Phone (unformatted): [phone] MARILU / TRICHOMONA S AMPLIFICATION MARILU / TRICHOMONAS AMPLIFICATION Microbiology Routine Vaginal discharge 06/06/2022 2:40 PM EDT [facility] Work Phone (unformatted): [phone] CBC panel - Blood by Automated count CBC Lab Routine Daily until discontinued starting 03/01/2021, 3 completed [facility] Work Phone: Comment on above: Daily until discontinued starting 2020, 3 completed CK WITH REFLEX CK-MB CK WITH REF MORTEZA CK-MB Lab Routine 03/01/2021 5:24 PM EDT [facility] Work Phone: Comprehensive metabo lic 2000 panel - Serum or Plasma [facility] Work Phone: Comment on above: Daily until discontinued starting 2020, 2 completed End: 03-30-2023 ECG COMPLETE ECG COMPLETE ECG Routine Pre-op chest exam 1 Occurrences starting 03/30/2022 until 03/30/2023 [facility] Work Phone: Comment on above: 1 Occurrences starting 03/30/2022 until 03/30/2023 EKG 12 lead [facility] Work Phone: Comment on above: Daily until discontinued starting 2020, 3 completed As Needed until disc ontinued starting 03/01/2021 Evaluation of diagno stic study results [facility] Work Phone: Glucose [Mass/volume ] in Serum or Plasma [employer] Work Phone: Comment on above: 4X Daily until discontinued starting 4X Daily (AC & HS) u ntil discontinued starting 03/01/2021 As Needed until disc ontinued starting 03/01/2021 End: 12-22-2023 IMAGING GUIDED ASP/INJ HIP JT/BURSA LEFT IMAGING GUIDED ASP/INJ HIP JT/BURSA LEFT Radiology Routine Primary osteoarthritis of left hip 1 Occurrences starting 11/22/2022 until 12/22/2023 [facility] Work Phone: Comment on above: 1 Occurrences starting 11/22/2022 until 12/22/2023 End: 12-22-2023 IMAGING GUIDED ASP/INJ HIP JT/BURSA RIGHT IMAGING GUIDED ASP/INJ HIP JT/BURSA RIGHT Radiology Routine Primary osteoarthritis of right hip 1 Occurrences starting 11/22/2022 until 12/22/2023 [facility] Work Phone: Comment on above: 1 Occurrences starting 11/22/2022 until 12/22/2023 Magnesium [Mass/volu me] in Serum or Plasma [facility] Work Phone: Comment on above: Daily until discontinued starting 2020, 2 completed End: 12-21-2023 MATTHIAS SCREENING MATTHIAS SCREENING Radiology Routine Encounter for screening mammogram for malignant neoplasm of breast 1 Occurrences starting 11/21/2022 until 12/21/2023 [facility] Work Phone: Comment on above: 1 Occurrences starting 11/21/2022 until 12/21/2023 End: 03-22-2025 MG Breast Screening MATTHIAS SCREENING Radiology Routine Encounter for screening mammogram for malignant neoplasm of breast 1 Occurrences starting 02/21/2024 until 03/22/2025 [facility] Work Phone: Comment on above: 1 Occurrences starting 02/21/2024 until 03/22/2025 MG Breast Screening MATTHIAS SCREENIN G Radiology Routine Encounter for screening mammogram for malignant neoplasm of breast 03/04/2024 11:50 AM EDT [facility] Work Phone: NM Heart Views W str ess and W radionuclide IV [facility] Oxygen therapy [[facility]] Initiate Oxygen Therapy Protocol Respiratory Care Routine Daily until discontinued starting 03/01/2021 [facility] Work Phone: Comment on above: Daily until discontinued starting 07/19/ 2021 Patient referral [facility] Work Phone: Phosphate [Mass/volu me] in Serum or Plasma [facility] Work Phone: Comment on above: Daily until discontinued starting 2020, 2 completed Ther px 1/> areas ea ch 15 minutes massage MASSAGE THERAPY Procedures Routine Degeneration of lumbar or lumbosacral intervertebral disc Somatic dysfunction of lumbar region Ordered: 11/17/2021 [facility] Work Phone: Comment on above: Ordered: 11/17/2021 End: 03-01-2021 Troponin I.cardiac [Mass/volume] in Serum or Plasma Troponin Lab Timed Now Then Every 6hr for 2 Occurrences starting 03/01/2021 until 03/01/2021, 1 completed [facility] Work Phone: Comment on above: Now Then Every 6hr for 2 Occurrences sta rting 03/01/2021 until 03/01/2021, 1 completed Troponin I.cardiac [Mass/volume] in Serum or Plasma Troponin Lab Timed 03/01/2021 5:24 PM EDT [facility] Work Phone: US Heart [facility] End: 12-23-2025 US.doppler Extremity arteries - bilateral for physiologic artery study PVR [facility]K [facility] Vascular Lab Routine Diabetic polyneuropathy associated with type 2 diabetes mellitus (HCC) Diminished pulses in lower extremity 1 Occurrences starting 12/23/2024 until 12/23/2025 [facility] Work Phone: Comment on above: 1 Occurrences starting 12/23/2024 until 12/23/2025 End: 01-22-2026 XR Foot - bilateral AP and Lateral and oblique XR FOOT GENERAL 3V AP/LAT/OBL BILATERAL Radiology Routine Hammer toes of both feet Callus 1 Occurrences starting 12/23/2024 until 01/22/2026 [facility] Comment on above: 1 Occurrences starting 12/23/2024 until 01/22/2026 XR Foot - bilateral AP and Lateral and oblique XR FOOT GENERAL 3V AP/LAT/OBL BILATERAL Radiology Routine Hammer toes of both feet Callus 12/23/2024 12:13 PM EDT [facility] XR FOOT GENERAL 3V AP/LAT/OBL BILATERAL XR FOOT GENERAL 3V AP/LAT/OBL BILATERAL Radiology Routine Fallen arches 02/25/2022 9:01 AM EDT [facility] Work Phone: End: 05-17-2024 XR HIP GENERAL 3V PELV/AP/LAT RIGHT XR HIP GENERAL 3V PELV/AP/LAT RIGHT Radiology Routine Primary osteoarthritis of right hip Status post total replacement of right hip 1 Occurrences starting 04/18/2023 until 05/17/2024 [facility] Work Phone: Comment on above: 1 Occurrences starting 04/18/2023 until 05/17/2024 End: 06-28-2024 XR HIP GENERAL 3V PELV/AP/LAT RIGHT XR HIP GENERAL 3V PELV/AP/LAT RIGHT Radiology Routine Primary osteoarthritis of right hip History of right hip replacement 1 Occurrences starting 05/30/2023 until 06/28/2024 [facility] Work Phone: Comment on above: 1 Occurrences starting 05/30/2023 until 06/28/2024 End: 05-30-2026 XR Pelvis and Hip - right AP and Lateral frog XR HIP GENERAL 3V PELV/AP/LAT RIGHT Radiology Routine History of right hip replacement Primary osteoarthritis of right hip 1 Occurrences starting 04/30/2025 until 05/30/2026 [facility] Work Phone: Comment on above: 1 Occurrences starting 04/30/2025 until 05/30/2026 [facility] [place] [facility] Immunizations Immunization Date Immunization Notes Care Provider Fa christina 05-18-2023 influenza (HD-IIV4) vaccine, age 65+ yr, high dose, quadrivalent, PF (FLUZONE HIGH-DOSE) Radha High RD [facility] 05-18-2023 influenza virus vaccine, unspecified formulation Екатерина Escalante PAPER TESTER.[employer]EL[employer] Work Phone: [facility] 04-25-2022 influenza, high dose seasonal, preservative-free Maria Del Rosario Cooney PAPER TESTER.[employer] 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 Work Phone: [facility] 05-20-2021 influenza, high-dose , quadrivalent vaccine (FLUZONE HIGH DOSE QUADRIVALENT) Radha High RD [facility] Work Phone: 11-26-2020 COVID-19 vaccine, fu ll dose (MODERNA) Radha High RD [facility] 10-29-2020 COVID-19 vaccine, fu ll dose (MODERNA) Radha High RD [facility] 09-18-2020 zoster vaccine recombinant Marco Hernandez MD Work Phone: [facility] Work Phone: 06-02-2020 Influenza, injectabl e, Madin [place] Canine Kidney, preservative free, quadrivalent Radha High RD [facility] Work Phone: 06-02-2020 zoster vaccine recombinant Radha High RD [facility] Work Phone: 06-08-2019 pneumococcal conjuga te vaccine, [address] [facility] Work Phone: 06-05-2019 influenza, high dose seasonal, preservative-free Radha High RD [facility] Work Phone: 06-08-2011 tetanus toxoid, reduced diphtheria toxoid, and acellular pertussis vaccine, adsorbed Radha High RD [facility] Work Phone: 09-01-2010 tetanus and diphther ia toxoids, adsorbed, preservative free, for adult use (2 Lf of tetanus toxoid and 2 Lf of diphtheria toxoid) Radha High RD [facility] Work Phone: Payers Date Payer Category Payer Medicare (Managed Care) [facility] [employer] PPO [id number] 2025 Medicare [id number] 2024 Self-pay [id number] 2016 [employer] [id number] 2016 Unknown [employer]AD[employer]AL OOS [id number] 2016-Present [phone] [address] [place] [address] Indemnity [id number] 2016 Unknown [employer] BL[employer] CARD TRADITIONAL OOS [id number] 2016-Present [phone] [address] [place] [address] Indemnity [id number] 2016 Unknown [id number] 2010 Medicare MEDICARE MEDICAR E A AND B [id number] 2010-Present [phone] [place] [address] Medicare [id number] 2010 Medicare [id number] 2010 Medicare [id number] 1945 Unknown [id number] Medicare ANTHEM MEDICARE PPO [id number] Unknown [id number] Unknown [id number] Unknown [id number] Social History Date Type Detail Facility Start: 03-02-2021 End: 10-06-2023 Tobacco smoking status NHIS Unknown if ever smoked [facility] Start: 1945 Sex Assigned At Not on file [employer] Work Phone: Start: 02-07-2019 End: 03-27-2023 Tobacco smoking status NHIS Never smoked tobacco [facility] Start: 02-07-2019 End: 03-27-2023 Tobacco use and exposure Smokeless tobacco non-user [facility] Start: 09-03-2021 End: 04-23-2025 Alcohol intake Current drinker of alcohol (finding) [facility] Start: 09-03-2021 End: 08-27-2022 Alcohol intake [facility] Start: 11-01-2021 End: 11-12-2022 History SDOH Alcohol Frequency 2 [facility] Start: 11-01-2021 End: 11-12-2022 History SDOH Alcohol Std Drinks 1 [facility] Start: 05-31-2021 History SDOH Alcohol Comment 3-4 glasses of wine per year [facility] Start: 11-01-2021 History SDOH Social Connections Phone 98 [facility] Start: 11-01-2021 End: 11-12-2022 History SDOH Social Connections Living 5 [facility] Start: 04-28-2020 History SDOH Physica l Activity DPW 0 [facility] Start: 09-10-2019 Education 18 [facility] Start: 10-17-2019 End: 04-22-2022 Tobacco Comment Second hand smoke (mother) [facility] Start: 06-22-2020 End: 05-19-2022 Exposure to SARS-CoV-2 (event) Not sure [facility] Start: 02-26-2022 End: 04-11-2022 Exposure to SARS-CoV-2 (event) Unable to assess [facility] Start: 1945 Sex Assigned At Female [facility] Start: 11-12-2022 History SDOH Social Connections Gnosticism 3 [facility] Start: 11-12-2022 History SDOH Physica l Activity DPW 4 [facility] Start: 08-27-2022 End: 11-12-2022 Social connection and isolation panel [facility] Do you belong to any clubs or organizations such as methodist groups, unions, fraternal or athletic groups, or school groups? Yes [facility] Are you now , , , , never or living with a partner? [facility] How often to you hav e a drink containing alcohol? Monthly or less [facility] How many standard dr inks containing alcohol do you have on a typical day? 1 or 2 [facility] How often do you hav e 6 or more drinks on 1 occasion? Never [facility] Start: 11-01-2018 How hard is it for y ou to pay for the very basics like food, housing, medical care, and heating Not hard at all [facility] Do you feel stress - tense, restless, nervous, or anxious, or unable to sleep at night because your mind is troubled all the time - these days [OSQ] Only a little [facility] (I/We) worried wheth er (my/our) food would run out before (I/we) got money to buy more. Never true [facility] In the past 12 month s, was there a time when you were not able to pay the mortgage or rent on time? No [facility] History of tobacco use Passive smoker [facility] Start: 02-07-2019 Alcohol Comment socially [facility] Medical Equipment Procedure Code Equipment Code Equipment Origin al Text Equipment Identifier Dates Cornea Tissue Pr e-Cut Dmek - [id number] Start: 03-18-2019 Cornea Tissue Pr e-Cut Dmek - [id number] Start: 04-16-2019 Cornea Tissue Pre-Loaded Dmek - [id number] Start: 09-30-2019 Gas Ispan Constellation Intraocular Vision System Sf6 125 - [id number] Start: 03-18-2019 Gas [employer]span [employer] Intraocular Vision System Sf6 125 - [id number] Start: 04-16-2019 Gas [employer]span [employer] Intraocular Vision System Sf6 125 - [id number] Start: 09-30-2019 [id number] Start: 03-22-2021 End: 06-21-2024 Comment on above: [...] P Bone Radiopaque Full Dose Sterile - [id number] Start: 03-15-2023 Small Cement Restrictor [id number] Start: 08-02-2023 Head V40 36mm +2 .5mm Offset Taper Biolox Delta Femoral Hip - [id number] Start: 03-15-2023 Shell Trident Ii 50mm D Tritanium Acetabular 3 Screw Hole Cluster Sterile - [id number] Start: 03-15-2023 Screw Trident Ii 6.5mm 25mm Bone Low Profile Hexagonal Sterile - [id number] Start: 03-15-2023 Spacer Accolade C 12mm Medium Femoral Ring Style Cemented 4 5 Stem Hip - [id number] Start: 03-15-2023 Cement Simplex P Bone Radiopaque Full Dose Sterile - [id number] Start: 03-15-2023 Stem Accolade 12 7d 4 46mm Offset 137mm 35mm Femoral Cemented Hip - [id number] Start: 03-15-2023 Insert Acetabula r 36mm 0d D Hip X3 Trident Sterile Latex Free - [id number] Start: 03-15-2023 Goals Date Patient Goal [...] 03/16/2023 12:08 PM Nathan Soni RN No [facility] 03-16-2023 Are you blind, or do you have serious difficulty seeing, even when wearing glasses No 03/16/2023 12:08 PM Nathan Soni, PETR No [facility] 03-16-2023 Do you have serious difficulty walking or climbing stairs Yes 03/16/2023 12:08 PM Nathan Soni, PETR Yes [facility] 03-16-2023 Do you have difficul ty dressing or bathing No 03/16/2023 12:08 PM EDT Nathan Alejo RN No [facility] 03-16-2023 Because of a physica l, mental, or emotional condition, do you have difficulty doing errands alone such as visiting a physician's office or shopping No 03/16/2023 12:08 PM EDT Nathan Alejo RN No [facility] Mental Status Date Assessment Result Facility 03-16-2023 Because of a physica l, mental, or emotional condition, do you have serious difficulty concentrating, remembering, or making decisions No 03/16/2023 12:08 PM EDT Nathan Alejo RN No [facility] Clinical Notes 07-22-2020 to 06-02-2025 Telephone Encounter - Carol Gregory LPN - 04/24/2025 2:35 PM EDTTelephone Encounter - Carol Gregory LPN - 04/24/2025 2:35 PM Altagracia Jacobsen APRN.RUBY ON RAILS DEVELOPER - 04/23/2025 10:00 AM EDT Note Date & Type Note Facility 06-02-2025 Note HNO ID: [id number] Author: ALEXANDRIA PATTON APRN.BILL Service: ? Author [...] resolves to avoid pain. and Recording using [employer] software for draft documentation of the visit was discussed with the patient/authorized automobile sales representative; all questions welcomed and answered. Patient/authorized automobile sales representative agreed to proceed History and Record Review External record(s) reviewed: no prior records. Disposition The patient was discharged. Procedures [facility] 06-02-2025 Note Education (ALEX) KEMAL CANTU ([id number]) 1945 F Date Time Provider Department 06/02/25 [...] Date Reviewed: 05/29/2025 Reviewed by: Екатерина Escalante APRN.RUBY ON RAILS DEVELOPER - Fully Assessed Prescriptions as of 06/02/2025 [...] Encounter Status:Closed by RADHA HIGH on 06/02/25 [facility] 06-02-2025 Note HNO ID: [id number] Author: RADHA HIGH RD Service: ? Author [...] Has had more treats (grandson works at [employer]) Struggling with motivation/depression Nutrition Intervention 04/21/25 Choose [...] carrots: [employer] or plain non fat [place] Citizen yogurt with dry ranch dressing mix All [...] Big meal one x per month after methodist Couple yasso bars Activity: Activities of Daily [...] DATE: June 02, 2025 TIME: 11:04 AM [facility] 05-29-2025 Note HNO ID: [id number] Author: ЕКАТЕРИНА ESCALANTE APRN.RUBY ON RAILS DEVELOPER Service: ? Author Type: Nurse Practitioner Type: [...] Podiatry: Dr. Mims Cardiology: Dr. Fitch Optometry: [facility] Neurology: Dr. Blevins Medical/Family history review [...] on alcohol intake and associated health risks [facility] 05-27-2025 Note HNO ID: [id number] Author: THAI ADAME PT Service: ? Author [...] Planned: 8 Planned Treatment Interventions: Neuromuscular re-education (46993), Therapeutic exercise (46227), Manual therapy (58144), Therapeutic activities (06028), Self-half-way management (94737), Gait Training (21807), Patient/Family/Caregiver Education, Body Mechanics Training PLAN FOR [...] Education: TREATMENT: PT Treatment Interventions: Therapeutic Exercise, Self-Prison Management Evaluation Therapeutic Exercise: 1: *Fig 4 piriformis stretch 3x30 sec 2: *SLR 3x4 3: *SKC 3x30 sec 4: *DKC 3x30 sec 5: *PPT 3x10 1-2 sec holds Skilled Intervention: Patient was educated i (more content not included)... [facility] 05-12-2025 Note HNO ID: [id number] Author: LETY HAYWOOD PA-C Service: ? Author Type: Physician Redye Hand Type: Progress Notes Filed: 05/15/2025 12:21 Note Text: Lety Haywood PA-C Department of Orthopaedics Orthopaedics [address] [address] Dept: [phone] Dept May 12, 2025 CHIEF COMPLAINT: Follow [...] testing. Imaging: IMPRESSION: Degenerative changes as discussed Museum Educator: CHAR Transcribe Date/Time: May 14 2025 3:10P [...] 79 years ol (more content not included)... [facility] 05-12-2025 Note HNO ID: [id number] Author: SRIDHAR KELLY RT(R) Service: ? Author [...] PATIENT PRESENTS WITH AN IMPLANTABLE OR ATTACHED QUALITY ASSURANCE CLERK: No RADIOLOGY DEPARTMENT: General X-ray: Exam(s) Completed: Spine X-Ray(s): Lumbar AP / LAT / L5-S1 Pelvis X-Ray: Pelvis with Hip Right PERIPHERAL IV DATA: Not applicable SIGNED BY: RT Sarai(R) May 12, 2025 11:51 AM [facility] 05-12-2025 Note HNO ID: [id number] Author: KEMI VALENCIA MA Service: ? Author Type: Escalator Mechanic Type: Progress Notes Filed: 05/15/2025 12:21 Note [...] and this concerns her. New x-ray today. [facility] 04-24-2025 Telephone encounter Note Answered questions in Epic for Pt PA. Carol Gregory LPN [facility] 04-24-2025 Miscellaneous Notes Answered questions in Epic for Pt PA. Carol Gregory LPN Started PA on Cover My Meds. For Horizant 300 mg ER Tabs. Carol Gregory LPN documented in this encounter [facility] 04-23-2025 Telephone encounter Note Started PA on Cover My Meds. For Horizant 300 mg ER Tabs. Carol Gregory LPN [facility] 04-23-2025 History of Presen t illness Narrative Images from the original note were not included. [facility] Follow up/ Established patient visit Recording using [employer] software for draft documentation of the visit was discussed with the patient/authorized automobile sales representative; all questions welcomed and answered. Patient/authorized automobile sales representative agreed to proceed Assessment/Plan from last [...] DREA To APRN.BILL documented in this encounter [facility] 04-23-2025 Note HNO ID: [id number] Author: ALTAGRACIA CONSTANTINO APRN.CNP Service: ? Author Type: Nurse Practitioner Type: Progress Notes Filed: 04/23/2025 10:28 Note Text: [facility] Follow up/ Established patient visit Recording using [employer] software for draft documentation of the visit was discussed with the patient/authorized automobile sales representative; all questions welcomed and answered. Patient/authorized automobile sales representative agreed to proceed Assessment/Plan from last [...] definition 04/28/2020 04/15/20 (more content not included)... [facility] 04-21-[address] - 04/21/2025 [...] carrots: [employer] or plain non fat [place] Citizen yogurt with dry ranch dressing mix All meals and snacks at the dinner table; minimize distractions, no TV while eating. Make meals last at least 20 min, chew each bite of food 20 x per bite.Portion out all foods, never eat out of container. Become more mindful of meal: Enjoy flavors, textures etc. Use hunger/fullness scale. documented in this encounter [facility] 04-21-2025 Note Education (NUTRSHAHAB) KEMAL CANTU ([id number]) 1945 F Date Time Provider Department 04/21/25 [...] Date Reviewed: 02/24/2025 Reviewed by: Екатерина Escalante APRN.RUBY ON RAILS DEVELOPER - Fully Assessed Prescriptions as of 04/21/2025 [...] Encounter Status:Closed by RADHA HIGH on 04/21/25 [facility] 04-21-2025 Note HNO ID: [id number] Author: RADHA HIGH RD Service: ? Author [...] carrots: [employer] or plain non fat [place] Citizen yogurt with dry ranch dressing mix All [...] DATE: April 21, 2025 TIME: 11:00 AM [facility] 04-21-2025 History of Presen t illness Narrative [...] carrots: [employer] or plain non fat [place] Citizen yogurt with dry ranch dressing mix All [...] TIME: 11:00 AM documented in this encounter [facility] 03-10-[address] - 03/10/2025 11:24 AM EDT Continue 3 meals and a small evening snack of 150-200 calories Add exercise 3 days per week: seated exercises or dancing documented in this encounter [facility] 03-10-2025 Note Education (NUTRWS) KEMAL CANTU ([id number]) 1945 F Date Time Provider Department 03/10/25 [...] Date Reviewed: 02/24/2025 Reviewed by: Екатерина Escalante APRN.RUBY ON RAILS DEVELOPER - Fully Assessed Prescriptions as of 03/10/2025 [...] Encounter Status:Closed by RADHA HIGH on 03/10/25 [facility] 03-10-2025 Note HNO ID: [id number] Author: RADHA HIGH RD Service: ? Author [...] DATE: March 10, 2025 TIME: 10:59 AM [facility] 03-10-2025 History of Presen t illness Narrative [...] TIME: 10:59 AM documented in this encounter [facility] 02-24-2025 Note HNO ID: [id number] Author: ЕКАТЕРИНА ESCALANTE APRN.RUBY ON RAILS DEVELOPER Service: ? Author Type: Nurse Practitioner Type: Progress Notes Filed: 02/24/2025 16:21 Note Text: CC: Patient presents with: Recheck: 6 month follow up HPI Kemal Cantu is a 79 year old female who presents today for follow up. Recording using [employer] software for draft documentation of the visit was discussed with the patient/authorized automobile sales representative; all questions welcomed and answered. Patient/authorized automobile sales representative agreed to proceed Fatigue: Ongoing with low motivation - Has difficulty sleeping; reports never sleeping well. - Experiences feelings of loneliness; moved to be near grandchildren but has no friends in the area. - Misses the mountains and friends in [place]. - Feels stuck in current living situation and landscape. - Considering building a dowdy house on son's property. - Attends methodist regularly. - No thoughts of self-harm or [...] EYE) 2018 YAG (more content not included)... [facility] 02-24-2025 History of Presen t illness Narrative CC: Patient presents with: Recheck: 6 month follow up HPI Kemal Cantu is a 79 year old female who presents today for follow up. Recording using [employer] software for draft documentation of the visit was discussed with the patient/authorized automobile sales representative; all questions welcomed and answered. Patient/authorized automobile sales representative agreed to proceed Fatigue: Ongoing with low motivation - Has difficulty sleeping; reports never sleeping well. - Experiences feelings of loneliness; moved to be near grandchildren but has no friends in the area. - Misses the mountains and friends in [place]. - Feels stuck in current living situation and landscape. - Considering building a dowdy house on son's property. - Attends methodist regularly. - No thoughts of self-harm or [...] on local activities and groups, including the [employer], and [employer]. - Encouraged participation in methodist activities and community events. - Discussed potential benefits of increasing Wellbutrin dosage; patient to consider. Prescription instructions reviewed with patient as applicable. Potential red flag symptoms discussed with the patient. Reviewed appropriate action plan to take if red flag symptoms occur. Patient agreeable to treatment plan. Екатерина Escalante APRN.CNP documented in this encounter [facility] 02-17-2025 Telephone encounter Note Prescription Refill [...] Arlin Saba February 17, 2025 1:18 PM [facility] 02-17-2025 Miscellaneous Notes Prescription Refill Information [...] 2025 1:18 PM documented in this encounter [facility] 02-11-2025 Telephone encounter Note PA appeal was approved. Katie Reeves LPN [facility] 02-11-2025 Miscellaneous Notes PA appeal was approved. Katie Reeves LPN PA requested through [employer]. Received message PA previously denied. Appeal faxed to [employer]. Please watch for determination. Katie Reeves LPN documented in this encounter [facility] 02-05-2025 Note HNO ID: [id number] Author: ANDERSON MIMS, ? Service: ? Author [...] were no vitals (more content not included)... [facility] 02-05-2025 History of Presen t illness Narrative [...] or sooner if problems arise Recording using Ta[employer] software for draft documentation of the visit was discussed with the patient/authorized automobile sales representative; all questions welcomed and answered. Patient/authorized automobile sales representative agreed to proceed Anderson Mims DPM AMB ROOMING INTAKE FLOWSHEET DATA Patient presents with: Right 4th Toe - Hammer Toe, Established Patient, Follow Up Right Foot - Established Patient: Discuss PVR Left Foot - Established Patient: Discuss PVR Lashonda Cortes LPN documented in this encounter [facility] 02-04-2025 Instructions Anderson Mims - 02/04/2025 [...] up that conversation. documented in this encounter [facility] 02-04-2025 Note HNO ID: [id number] Author: LASHONDA CORTES LPN Service: ? Author Type: LICENSED NURSE Type: Progress Notes Filed: 02/05/2025 12:29 Note Text: AMB ROOMING INTAKE FLOWSHEET DATA Patient presents with: Right 4th Toe - Hammer Toe, Established Patient, Follow Up Right Foot - Established Patient: Discuss PVR Left Foot - Established Patient: Discuss PVR Lashonda Cortes LPN [facility] 01-27-[address] - 01/27/2025 11:20 AM EDT Aim for 3 meals and no snacks Focus on small portions, mindful eating Add in 10 min exercise bike daily (more if tolerated) documented in this encounter [facility] 01-27-2025 Note Education (NUTRWS) KEMAL CANTU ([id number]) 1945 F Date Time Provider Department 01/27/25 [...] Encounter Status:Closed by RADHA HIGH on 01/27/25 [facility] 01-27-2025 Note HNO ID: [id number] Author: RADHA HIGH RD Service: ? Author [...] implement interventions: Diet History: Breakfast - egg, Salt [place] bar, Snack - no Lunch - sandwich or left overs, occ omelet; hashbrowns Snack - [place] bars, saltines Dinner - zucchini casserole , [...] DATE: January 27, 2025 TIME: 11:00 AM [facility] 01-27-2025 History of Presen t illness Narrative [...] implement interventions: Diet History: Breakfast - egg, Salt Flat bar, Snack - no Lunch - sandwich or left overs, occ omelet; hashbrowns Snack - Salt Flat bars, saltines Dinner - zucchini casserole , [...] TIME: 11:00 AM documented in this encounter [facility] 01-23-2025 Telephone encounter Note Patient returned call and given update below. States that she hopes to have the Horizant filled at [facility] today. Rosa Maria Jones RN [facility] 01-23-2025 Miscellaneous Notes Patient returned call and given update below. States that she hopes to have the Horizant filled at [facility] today. Rosa Maria Jones RN TC from [employer] who states PA appeal for Horizant has been approved from 01/23/2025-01/23/2026. Will be sending fax for patient records. PA approval #[id number] TC to patient to inform of such. No answer, unable to leave VM d/t message is full. LISSETTE Oneil TC received in office from [employer] stating they received the expedited appeal for Horizant. They have 48 hours left for determination and will call office once a decision has been reached. LISSETTE Oneil TC to appeals at [employer] to check on status of appeal. Appeal currently under acknowledgement, 01/27 due for determination. Explained patient is out of medication and automobile sales representative will send for expedited appeal, determination should be received in 72 hours. TC to patient who verbalized understanding of above. LISSETTE Oneil documented in this encounter [facility] 01-23-2025 Telephone encounter Note TC from [employer] who states PA appeal for Horizant has been approved from 01/23/2025-01/23/2026. Will be sending fax for patient records. PA approval #[id number] TC to patient to inform of such. No answer, unable to leave VM d/t message is full. LISSETTE Oneil [facility] 01-23-2025 Telephone encounter Note TC received in office from [employer] stating they received the expedited appeal for Horizant. They have 48 hours left for determination and will call office once a decision has been reached. LISSETTE Oneil [facility] 01-22-2025 Telephone encounter Note TC to appeals at [employer] to check on status of appeal. Appeal currently under acknowledgement, 01/27 due for determination. Explained patient is out of medication and automobile sales representative will send for expedited appeal, determination should be received in 72 hours. TC to patient who verbalized understanding of above. LISSETTE Oneil [facility] 01-20-2025 Telephone encounter Note PA requested through [employer]. Received message PA previously denied. Appeal faxed to [employer]. Please watch for determination. Katie Reeves LPN [facility] 01-20-2025 Note HNO ID: [id number] Author: HOLLIE BLEVINS JR, MD Service: ? [...] nasal spray instil (more content not included)... [facility] 01-20-2025 History of Presen t illness Narrative [...] which included preparing to see the patient, [id number] patient care, completing clinical documentation, obtaining and/or reviewing separately obtained history, performing a medically appropriate examination, counseling and educating the patient/family/caregiver, ordering medications, tests, or procedures, and communicating results to the patient/family/caregiver. PDMP website checked and validated. All prescriptions have been APPROPRIATELY filled. No suspicious activity was identified. 01/20/2025 by Hollie Blevins MD documented in this encounter [facility] 01-17-2025 Telephone encounter Note TC to Pt. Pt stated her insurance would not pay for her Horizant med any more and wanted to change to Gabapentin ER. Pt has been on for 2 [address] Dr[address] Marino advised Pt to take her Gabapentin enacarbil (Horizant) Bid to get to her appt. on Monday. Carol Gregory LPN [facility] 01-17-2025 Miscellaneous Notes TC to Pt. [...] Nat Manriquez RN documented in this encounter [facility] 01-17-2025 Telephone encounter Note I have [...] at time of visit. Hollie Blevins MD [facility] Work Phone: 01-17-2025 Telephone encounter Note [...] Please review and advise, Nat Manriquez RN [facility] 01-03-2025 Telephone encounter Note I rewrote for bid per pt request Altagracia Constantino APRN.CNP [facility] 01-03-2025 Miscellaneous Notes I rewrote for [...] is in process for this patient and drug.;CaseId:[id number];Status:In Process Request received on CoverMyMeds for Gabapentin. Prior authorization completed using [employer]: [id number] Please watch for determination. LISSETTE Oneil documented in this encounter [facility] 01-03-2025 Telephone encounter Note Patient calls back and states that she had talked to insurance and insurance had told her that if provider changes prescription to 60 tablets for 30 days then insurance would cover medication. This is taking the medication 1 pill twice a day. Please review and advise, Nat Manriquez RN [facility] 12-30-2024 Telephone encounter Note [employer] stating PA has already submitted and is in process for this patient and drug.;CaseId:[id number];Status:In Process [facility] 12-29-2024 Telephone encounter Note Request received on CoverMyMeds for Gabapentin. Prior authorization completed using Ruvalcaba: [id number] Please watch for determination. LISSETTE Oneil [facility] 12-27-2024 Telephone encounter Note TC to patient who is informed Rx sent as requested. LISSETTE Oneil [facility] 12-27-2024 Miscellaneous Notes TC to patient [...] back with information documented in this encounter [facility] 12-27-2024 Telephone encounter Note I rewrote the Rx Altagracia Constantino APRN.BILL [facility] 12-27-2024 Telephone encounter Note patient is [...] patient would like called back with information [facility] 12-26-2024 Telephone encounter Note Patient previously notified medication would be sent. Nothing further at this time. LISSETTE Oneil [facility] 12-26-2024 Miscellaneous Notes Patient previously notified [...] you. LISSETTE Oneil documented in this encounter [facility] 12-26-2024 Telephone encounter Note Rx sent for the gabapentin ER 300 mg If not as effective as Horizant then we can appeal Altagracia Constantino APRN.CNP PDMP website checked and validated. All prescriptions have been APPROPRIATELY filled. No suspicious activity was identified. 12/26/2024 by Altagracia Constantino APRN.CNP [facility] 12-26-2024 Telephone encounter Note Discussed with [...] as such if provider agreeable. LISSETTE Oneil [facility] 12-25-2024 Telephone encounter Note Not sure if you had a chance to check this out. [place] [facility] 12-25-2024 Miscellaneous Notes Not sure if [...] for this patient and drug which was denied.;CaseId:[id number];Status:D enied;Appeal Information: Attention:ADVOCACY DE[place]MENT [place] . Alessia Mercado LPN Pt calling [...] scanned documents. Insurance Company Name: Medicare with [employer] Patient ID number: Medicare [id number] [employer] ID #: [id number] Pharmacy Name: [facility] Telephone number: [facility] Prior Authorization number: RxBin: [id number] RxPcn: RxGrp: Exlmdrx Cane Flume Chute Operator number: [id number] [facility]: [id number] documented in this encounter [facility] 12-23-2024 Note HNO ID: [id number] Author: ANDERSON MIMS, ? Service: ? Author [...] 3 amoxicillin (POLYMOX (more content not included)... [facility] 12-23-2024 History of Presen t illness Narrative [...] testing and discuss options. Attestation Recording using Taamkru software for draft documentation of the visit was discussed with the patient/authorized automobile sales representative; all questions welcomed and answered. Patient/authorized automobile sales representative agreed to proceed Anderson Mims DPM [...] Lashonda Cortes LPN documented in this encounter [facility] 12-23-2024 History of Presen t illness [...] PATIENT PRESENTS WITH AN IMPLANTABLE OR ATTACHED QUALITY ASSURANCE CLERK: No RADIOLOGY DEPARTMENT: General X-ray: Exam(s) Completed: Lower Extremity X-Ray(s): Foot, Bilateral PERIPHERAL IV DATA: Not applicable SIGNED BY: RT Enrique(Gini) December 23, 2024 11:58 AM documented in this encounter [facility] 12-23-2024 Note HNO ID: [id number] Author: WALT CHAMORRO RT(R) Service: ? Author Type: Stencil Cutter Machine Type: Progress Notes Filed: 12/23/2024 12:12 Note [...] PATIENT PRESENTS WITH AN IMPLANTABLE OR ATTACHED QUALITY ASSURANCE CLERK: No RADIOLOGY DEPARTMENT: General X-ray: Exam(s) Completed: Lower Extremity X-Ray(s): Foot, Bilateral PERIPHERAL IV DATA: Not applicable SIGNED BY: RT Enrique(Gini) December 23, 2024 11:58 AM [facility] 12-23-2024 Note HNO ID: [id number] Author: LASHONDA CORTES LPN Service: ? Author [...] utilize the above equipment. Lashonda Cortes LPN [facility] 12-23-2024 Instructions Anderson Mims - 12/23/2024 11:35 [...] (or decreased sensation in your feet) a costumed character entertainer should always cut your toenails. Be Careful [...] Go to your health care provider or costumed character entertainer to treat these conditions. documented in this encounter [facility] 12-23-2024 Telephone encounter Note Next appt 01/[address] Blevins for f/u. [facility] 12-23-2024 Note HNO ID: [id number] Author: LASHONDA CORTES LPN Service: ? Author [...] New, Diabetic Foot Care Lashonda Cortes LPN [facility] 12-13-2024 Telephone encounter Note Please advise if wanting to switch to Gabapentin per patient request or move forward with appeal. Thank you. LISSETTE Oneil [facility] 12-09-2024 Telephone encounter Note Pt calls back to report that insurance advised pt to try gabapentin ER 300 mg -whatever is equivalent to what pt was taking with Horizant. Pt reports in the past she had taken Neurontin and it did not work well. Pt reports at that time she was only on Neurontin. Rachael Espinosa LPN [facility] 12-09-2024 Note HNO ID: [id number] Author: RADHA HIGH RD Service: ? Author [...] implement interventions: Active/busy Diet History: Breakfast - Salt Flat bar and coffee Snack - no Lunch - pbj on croissant or bagel; chicken or egg salad; eggs; Snack - no Dinner - zuchini casserole; stuffed green peppers; Spanish toast Snack - chocolate Beverages - water, [...] DATE: December 09, 2024 TIME: 11:04 AM [facility] 12-09-2024 Note Education (NUTRSHAHAB) KEMAL CANTU ([id number]) 1945 F Date Time Provider Department 12/09/24 [...] Encounter Status:Closed by RADHA HIGH on 12/09/24 [facility] 12-02-2024 Telephone encounter Note Attempted to do PA via cover my meds- PA was already submitted for this patient and drug which was denied.;CaseId:[id number];Status:D enied;Appeal Information: Attention:ADVOCACY DEPARTMENT SIMPLY PRESCRIPTIONS,[place], [place] . Alessia Mercado LPN [facility] 12-02-2024 Telephone encounter Note Please see TE dated 11/27/24. Alessia Mercado LPN [facility] 12-02-2024 Miscellaneous Notes Please see TE dated 11/27/24. Alessia Mercado LPN PA started via Epic. Alessia Mercado LPN Pt calls to report she went to [facility] to cone picker rx for Horizant 300 mg and was advised that insurance would not approve medication. Pt reports no other medications were provided on formulary. Pt is going to call insurance to see what insurance says about what is needed and will call back. Rachael Espinosa LPN documented in this encounter [facility] 11-27-2024 Telephone encounter Note Pt calling [...] scanned documents. Insurance Company Name: Medicare with [employer] Blue [employer]/Blue Shield Patient ID number: Medicare [id number] edelightus ID #: [id number] Pharmacy Name: [facility] Telephone number: [facility] Prior Authorization number: RxBin: [id number] RxPcn: RxGrp: Exlmdrx Cane Flume Chute Operator number: [phone] [id number] [facility]: [id number] [facility] 11-27-2024 Telephone encounter Note The patient [...] Barajas RN November 27, 2024 12:51 PM [facility] 11-27-2024 Miscellaneous Notes The patient has [...] 2024 12:51 PM documented in this encounter [facility] 11-26-2024 Telephone encounter Note PA started via [employer]. Alessia Mercado LPN [facility] 11-25-2024 Telephone encounter Note Pt calls to report she went to [facility] to cone picker rx for Horizant 300 mg and was advised that insurance would not approve medication. Pt reports no other medications were provided on formulary. Pt is going to call insurance to see what insurance says about what is needed and will call back. Rachael Espinosa LPN [facility] 11-04-2024 Telephone encounter Note Prior Authorization History semaglutide (OZEMPIC) 2 mg/dose (8 mg/3 mL) pen injector Approval Details Authorized from October 05, 2024 to November 04, 2025 Information received electronically from payer Pharmacy notified. [facility] 11-04-2024 Miscellaneous Notes Prior Authorization History semaglutide (OZEMPIC) 2 mg/dose (8 mg/3 mL) pen injector Approval Details Authorized from October 05, 2024 to November 04, 2025 Information received electronically from payer Pharmacy notified. Covermymeds PA rec'd this was completed electronically. documented in this encounter [facility] 11-04-2024 Telephone encounter Note Covermymeds PA rec'd this was completed electronically. [facility] 10-28-[address] - 10/28/2024 11:25 AM EDT Start doing short walks Discussion medication options with PCP Continue small meals, make last 20-30 min Apply mindful eating with snacks. documented in this encounter [facility] 10-28-2024 Note Education (NUTRWS) KEMAL CANTU ([id number]) 1945 F Date Time Provider Department 10/28/24 [...] Encounter Status:Closed by RADHA HIGH on 10/28/24 [facility] 10-28-2024 Note HNO ID: [id number] Author: RADHA HIGH RD Service: ? Author [...] Diet History: Breakfast - smoothie, yogurt, bar;eggs; libyan omelet Snack - popcorn Lunch - pbj [...] DATE: October 28, 2024 TIME: 11:01 AM [facility] 10-28-2024 History of Presen t illness Narrative [...] Diet History: Breakfast - smoothie, yogurt, bar;eggs; libyan omelet Snack - popcorn Lunch - pbj [...] TIME: 11:01 AM documented in this encounter [facility] 10-14-2024 Note HNO ID: [id number] Author: GEORGETTE BAUTISTA APRN.BILL Service: ? Author [...] mg by mouth. (more content not included)... [facility] 10-14-2024 History of Presen t illness Narrative [...] DOXYCYCLINE HYCLATE 100 MG TABLET Georgette Bautista APRN.RUBY ON RAILS DEVELOPER documented in this encounter [facility] 09-09-[address] - 09/09/2024 1:21 PM EST Use smaller plates, bowls, etc. [facility]ore [facility] Keep snacks to 100-150 calories Continue regular exercise Discuss medication with provider documented in this encounter [facility] 09-09-2024 Note Education (NUTRWS) KEMAL CANTU ([id number]) 1945 F Date Time Provider Department 09/09/24 [...] Encounter Status:Closed by RADHA HIGH on 09/09/24 [facility] 09-09-2024 Note HNO ID: [id number] Author: RADHA HIGH RD Service: ? Author [...] beverage Use smaller plates, bowls, etc. [facility]ore [facility] Keep snacks to 100-150 calories Continue regular [...] DATE: September 09, 2024 TIME: 12:56 PM [facility] 09-09-2024 History of Presen t illness Narrative Nutritional Therapy Re-Assessment Nutrition Diagnosis: Overweight/obesity, related to, excess energy intake and physical inactivity, as evidenced by BMI above normative standard for age and gender RECOMMENDED MALNUTRITION DIAGNOSIS: NO MALNUTRITION IDENTIFIED NUTRITION CARE PLAN: Nutrition Intervention 09/09/2024: modify type and amount of food or beverage Use smaller plates, bowls, etc. [facility]ore [facility] Keep snacks to 100-150 calories Continue regular [...] TIME: 12:56 PM documented in this encounter [facility] 08-26-2024 Note HNO ID: [id number] Author: ЕКАТЕРИНА ESCALANTE APRN.RUBY ON RAILS DEVELOPER Service: ? Author Type: Nurse Practitioner Type: [...] bedtime. gabapentin enacar (more content not included)... [facility] 08-26-2024 History of Presen t illness Narrative [...] Екатерина Escalante APRN.CNP documented in this encounter [facility] 07-26-2024 Telephone encounter Note The patient [...] Dominguez LPN July 26, 2024 12:13 PM [facility] 07-26-2024 Miscellaneous Notes The patient has [...] 2024 12:13 PM documented in this encounter [facility] 06-24-[address] - 06/24/2024 12:43 PM EST Continue small meals, make last 20-30 min Small portions of sweets when having Using handweights throughout the day documented in this encounter [facility] 06-24-2024 Note HNO ID: [id number] Author: RADHA HIGH RD Service: ? Author [...] salad Lunch - turkey roll up sandwich; Ugandan egg pancakes Snack - yasso bar Dinner [...] DATE: June 24, 2024 TIME: 12:20 PM [facility] 06-24-2024 History of Presen t illness Narrative [...] salad Lunch - turkey roll up sandwich; Ugandan egg pancakes Snack - yasso bar Dinner [...] TIME: 12:20 PM documented in this encounter [facility] 06-24-2024 Note Education (NUTRWS) KEMAL CANTU ([id number]) 1945 F Date Time Provider Department 06/24/24 [...] Encounter Status:Closed by RADHA HIGH on 06/24/24 [facility] 06-21-2024 History of Presen t illness Narrative Images from the original note were not included. [facility] Follow up/ Established [...] which included preparing to see the patient, dyue-oc-wfgz patient care, completing clinical documentation, counseling and educating the patient/family/caregiver, and ordering medications, tests, or procedures. documented in this encounter [facility] 06-21-2024 Note HNO ID: [id number] Author: ALTAGRACIA CONSTANTINO APRN.BILL Service: ? Author Type: Nurse Practitioner Type: Progress Notes Filed: 06/21/2024 12:43 Note Text: [facility] Follow up/ Established [...] % ophthalmic suspe (more content not included)... [facility] 06-06-2024 Telephone encounter Note The patient has [...] Eisenberg RN June 06, 2024 3:06 PM [facility] 06-06-2024 Miscellaneous Notes The patient has [...] 2024 3:06 PM documented in this encounter [facility] 05-13-[address] - 05/13/2024 10:30 AM EDT When feeling OK try to get 10-15 min exercise Keep meals very small Only one snack in evening documented in this encounter [facility] 05-13-2024 History of Presen t illness [...] Diet History: wake 4-7 a.m. Brunch - [place] Citizen omelet: onions, spinach, tomatoes and feta Lunch - 5-7-hkbdmgtx or turkey sand Dinner - cauliflower pizza; [...] TIME: 10:18 AM documented in this encounter [facility] 05-02-2024 Telephone encounter Note Called and updated patient, voiced understanding. Romy Girard LPN May 02, 2024 8:59 AM [facility] 05-02-2024 Miscellaneous Notes Called and updated patient, voiced understanding. Romy Girard LPN May 02, 2024 8:59 AM Fluconazole ordered as requested. Follow up if no improvement. Do she need a powder for her abdominal fold? I sent one in case. Thank you Екатерина Escalante APRN.RUBY ON RAILS DEVELOPER Patient reports the yeast in her naval fold and abdominal fold has returned. Reports the naval is ooozing yellow, and theres a spot in her abdominal fold that bleeds. Patient declined to schedule appt. Asking if Екатерина would send diflucan to [facility]. Last ov with Екатерина: 02-21-24, and patient reports Екатерина prescribed fluconazole for this at that time. Please advise patient. Pended Fluconazole. documented in this encounter [facility] 05-01-2024 Telephone encounter Note Fluconazole ordered as requested. Follow up if no improvement. Do she need a powder for her abdominal fold? I sent one in case. Thank you Екатерина Escalante APRN.RUBY ON RAILS DEVELOPER [facility] 05-01-2024 Telephone encounter Note Patient reports the yeast in her naval fold and abdominal fold has returned. Reports the naval is ooozing yellow, and theres a spot in her abdominal fold that bleeds. Patient declined to schedule appt. Asking if Екатерина would send diflucan to [facility]. Last ov with Екатерина: 02-21-24, and patient reports Екатерина prescribed fluconazole for this at that time. Please advise patient. Pended Fluconazole. [facility] 04-01-[address] - 04/01/2024 1:27 PM EDT Get back to regular exercise, goal for now 15 min daily Continue three regular meals, small meals Continue previous recommendations documented in this encounter [facility] 04-01-2024 History of Presen t illness [...] TIME: 1:05 PM documented in this encounter [facility] 03-05-2024 Note Formatting of this n ote might be different from the original. March 06, 2024 PID: [id number] Kemal Cantu [address] [place] [address] Dear Ms. Cantu, We are pleased to [...] report will be kept on file at [facility] as part of your permanent medical record and are available for your continuing care. Thank you for allowing us to help in meeting your health care needs. Sincerely, Dr. Kim Interpreting Radiologist [facility] (Normal over 40) [facility] 03-05-2024 Miscellaneous Notes March 06, 2024 PID: [id number] Kemal Cantu [address] [place] [address] Dear Ms. Cantu, We are pleased to [...] report will be kept on file at [facility] as part of your permanent medical record and are available for your continuing care. Thank you for allowing us to help in meeting your health care needs. Sincerely, Dr. Kim Interpreting Radiologist [facility] (Normal over 40) documented in this encounter [facility] 03-04-2024 History of Presen t illness [...] PATIENT PRESENTS WITH AN IMPLANTABLE OR ATTACHED QUALITY ASSURANCE CLERK: No RADIOLOGY DEPARTMENT: Mammography PERIPHERAL IV DATA: Not applicable SIGNED BY: Nazario Brisenoo Hugo March 04, 2024 11:33 AM documented in this encounter [facility] 03-01-2024 Telephone encounter Note Phoned patient aware rx sent to pharmacy. [facility] 03-01-2024 Miscellaneous Notes Phoned patient aware rx sent to pharmacy. Script resent Thank you Екатерина Escalante APRN.CNP Patient asking for her script for Ozempic be re-sent, please. Pharmacy did not receive it on 02/21/24. Thank you. documented in this encounter [facility] 03-01-2024 Telephone encounter Note Script resent Thank you Екатерина Escalante APRN.CNP [facility] 03-01-2024 Telephone encounter Note Patient asking for her script for Ozempic be re-sent, please. Pharmacy did not receive it on 02/21/24. Thank you. [facility] 02-21-2024 History of Presen t illness [...] Екатерина Escalante APRN.CNP documented in this encounter [facility] 02-02-2024 History of Presen t illness [...] care with patient Outcomes: Patient switched from [facility] to telephone outreach Are you experiencing any new or worsening symptoms you need to talk about today? No Based on pressfitter, the following disposition is advised: No symptoms [...] 2024 8:59 AM documented in this encounter [facility] 01-31-2024 History of Presen t illness Narrative CDM Telephonic Outreach Provider Action/FYI CDM: CKD Left a message to verify symptom status, instructed to contact PCP for condition changes and needs. Contacted for: Goals/Falls/ADL Update Contact made with patient: No, left message. Hedy Owens RN January 31, 2024 3:23 PM documented in this encounter [facility] 01-16-2024 Telephone encounter Note Irma Cantu [facility] [id number] 02/06/21 [facility] Pharmacy electronically requesting refills [...] up for care locally, can return to ok PRN in the future or if any new s/s next visit mrx iop dfe ou optovue ou confocal managing consultant clinical professor ou [facility] 01-16-2024 Miscellaneous Notes Irma Cantu [facility] [id number] 02/06/21 [facility] Pharmacy electronically requesting refills [...] mrx iop dfe ou optovue ou confocal managing consultant clinical professor ou documented in this encounter [facility] 01-01-[address] - [...] Activity as tolerated documented in this encounter [facility] 01-01-2024 History of Presen t illness [...] TIME: 11:00 AM documented in this encounter [facility] 12-18-2023 Instructions Hollie Blevins Jr., MD - 12/18/2023 5:39 PM EDT Your most recent body mass index (BMI) that we have on record is 42.35 kg/m2. Obstructive sleep apnea (MAURICE) worsens with an increase in weight; reduction in weight may improve or resolve your MAURICE. If you are not already seeking treatment, there are resources available at the [facility] such as a nutrition consultation or referral to weight management programs at our [facility] [place]. Please let us know if we can assist with a referral. documented in this encounter [facility] 12-18-2023 History of Presen t illness [...] 4 - Moderate documented in this encounter [facility] 11-23-2023 Miscellaneous Notes Patient has been [...] Radha Eisenberg RN. documented in this encounter [facility] 11-14-2023 Miscellaneous Notes Patient has been [...] Beatriz Matute LPN. documented in this encounter [facility] 11-07-2023 History of Presen t illness [...] to talk about today? No Based on pressfitter, the following disposition is advised: No symptoms or symptoms present, not severe. Routed to: No Action Needed MICKY Education Provided this Outreach: No Hedy Owens RN November 07, 2023 11:17 AM documented in this encounter [facility] 10-30-2023 Miscellaneous Notes Patient has been [...] Beatriz Matute LPN. documented in this encounter [facility] 10-23-[address] - 10/23/2023 [...] Activity as tolerated documented in this encounter [facility] 10-23-2023 History of Presen t illness [...] Could have Yasso bar; one square dark areil per day, Sugar free; occ smoothie Beverages [...] TIME: 11:04 AM documented in this encounter [facility] 10-13-2023 Miscellaneous Notes See other encounter PA completed and approved. Pt notified via my chart. Pharmacy notified. New prescription sent to pharmacy with DM diagnosis. A1c was 6.6 in 2021. Thank you Екатерина Escalante APRN.RUBY ON RAILS DEVELOPER 09/05/23 bob hernandez says rx transferred to [facility]. Do not see a dx of diabetes [...] ozempic was completed by office. She states [facility] pharmacy is telling her that they do not have any info regarding PA. Pt has missed 2 doses of med. Please review & contact pt . Katie Arechiga LPN documented in this encounter [facility] 10-13-2023 Miscellaneous Notes My chart message to pt. And pharmacy notified. Unable to completed electronic PA for ozempic 1mg. Completed via covermymeds. This was approved. Kemal Cantu (Ru[employer]: [id number]) Rx #: [id number] Ozempic (1 MG/DOSE) 4MG/3ML pen-injectors Favorable lCaseId:[id number];Status:Approved ;Review Type:Prior Auth;Coverage Start Date:09/13/2023;Coverage End Date:10/12/2024;. Authorization Expiration Date: October 12, 2024. documented in this encounter [facility] 10-12-2023 Miscellaneous Notes Can pharmacist Lelo So calling asking to have the Ozempic rx changed to the 4 mg/3 ml pens please. Pending rx needs completed please. Please advise documented in this encounter [facility] 09-18-[address] - [...] as an option documented in this encounter [facility] 09-18-2023 History of Presen t illness [...] not feeling well. Could not go to [place] so has been eating all the cookies and candy for it. Still exhausted after Covid, limited exercise and activity and notes no motivation to follow a plan. No motivation to cook. Has not been checking blood sugars. Weight increase ~10 lbs from last visit, may benefit from increased Ozempic dose, patient will discuss this with her provider. Nutrition Intervention 07/03/23 Look into Daily Kite or Factor 5 for meal options Get back to breakfast, lunch and dinner, avoid snacks (OK for Yasso bar or V8 juice) Easy meal option would be protein drink and fruit, smoothie, healthy soups, healthy frozen meals Start to exercise from a sitting position: 20-25 minutes/session 3-4 x per week: Chair or standing Team Body Project https://www.Equiomube.com/watch?v= t6kdKY-RjNv Chair exercise Cardica [email or web address]://www.[email or web address].com/reso urce/videos-detail.asp?video=38 Ashtyn Delgado Easy walk in place 15 min https://www.Equiomube.com/watch?v= ejkV45urpYT Actions to implement interventions: limited Diet History: [...] TIME: 10:17 AM documented in this encounter [facility] 08-23-2023 Instructions Екатерина Escalante APRN.CNP - 08/23/2023 11:03 AM EST Hold vitamins and supplements while on doxycycline. 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 She watches her [...] - CBC 2. 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 (HCC) - ICD9: [...] Екатерина Escalante APRN.CNP documented in this encounter [facility] 07-19-2023 Miscellaneous Notes Patient has been [...] at bedtime. Please review and advise. Alessia Alcazar documented in this encounter [facility] 07-03-[address] - 07/03/2023 11:12 AM EST Look into Daily Kite or Factor 5 for meal options Get back to breakfast, lunch and dinner, avoid snacks (OK for Yasso bar or V8 juice) Easy meal option would be protein drink and fruit, smoothie, healthy soups, healthy frozen meals Start to exercise from a sitting position: 20-25 minutes/session 3-4 x per week: Chair or standing Team Body Project https://www.Gay[employer]ak[employer].com/watch?v= c3ttVK-YtOc Chair exercise Cardica https://www.Cardica.[employer]/reso urce/videos-detail.asp?video=38 Ashtyn Delgado Easy walk in place 15 min https://www.youShutterCalube.com/watch?v= cqgM23dkoCF documented in this encounter [facility] 07-03-2023 History of Presen t illness Narrative Nutritional Therapy Re-Assessment Nutrition Diagnosis: Overweight/obesity, related to, excess energy intake and physical inactivity, as evidenced by BMI above normative standard for age and gender RECOMMENDED MALNUTRITION DIAGNOSIS: NO MALNUTRITION IDENTIFIED NUTRITION CARE PLAN: Nutrition Intervention 07/03/2023: modify type and amount of food or beverage Look into Daily Kite or Factor 5 for meal options Get back to breakfast, lunch and dinner, avoid snacks (OK for Yasso bar or V8 juice) Easy meal option would be protein drink and fruit, smoothie, healthy soups, healthy frozen meals Start to exercise from a sitting position: 20-25 minutes/session 3-4 x per week: Chair or standing Team Body Project https://www.Equiomube.com/watch?v= s9lvDF-ZfSo Chair exercise Cardica https://www.Cardica.[employer]/reso urce/videos-detail.asp?video=38 Ashtyn Delgado Easy walk in place 15 min https://www.Equiomube.com/watch?v= ckhQ72fwzLP Nutrition Monitoring & Evaluation: weight loss or [...] 5.4. Nutrition Intervention 05/22/23 Look into Daily Kite or Factor 5 for meal options Get back to breakfast, lunch and dinner, avoid snacks (OK for Yasso bar or V8 juice) Easy meal option would be protein drink and fruit, smoothie, healthy soups, healthy frozen meals Start to exercise from a sitting position: 20-25 minutes/session 3-4 x per week: Chair or standing Team Body Project https://www.Equiomube.com/watch?v= n5cgZC-ViRc Chair exercise SuVoltapeople https://www.InsideSales.com/reso salena/videos-detail.asp?video=38 Ashtyn Delgado Easy walk in place 15 min https://www.Equiomube.com/watch?v= lanO05oonAB Actions to implement interventions: limited Diet History: Breakfast - breakfast bar and yogurt Snack - could be Yasso bar Lunch - Flanagan sandwich with greens on skinny bagel, WG [...] TIME: 10:55 AM documented in this encounter [facility] 06-05-2023 History of Presen t illness Narrative Marco Hernandez MD Department of Orthopaedics Orthopaedics [address] [facility] [address] Dept: [phone] Dept June 05, 2023 CHIEF COMPLAINT: Post [...] Pollen-Milan Hernandez MD documented in this encounter [facility] 05-29-2023 Miscellaneous Notes Rx signed for new pharmacy. PDMP website checked and validated. All prescriptions have been APPROPRIATELY filled. No suspicious activity was identified. 05/29/2023 by Mable Hull APRN.RUBY ON RAILS DEVELOPER MAGDY: 05/15/23 Edy In Person - 05/15/23 [...] activity was identified. 05/15/2023 by Samira Snow APRN.RUBY ON RAILS DEVELOPER Follow up in 3-6 month(s) with Dr. Blevins at [place] location Samira Snow APRN.RUBY ON RAILS DEVELOPER SLEEP PHONE Name of caller: Kemal Cantu Relationship to patient : Self In-state or [id number] patient: In-State Was permission obtained from patient? Yes Patient identified by Name and Date of . ( Kemal Cantu, 1945). Yes Reason for Call : Patient called regarding her recent Horiz[facility] refill. The pharmacy was out and she is now requesting it be sent to [facility] in [address], [place] [address]. Phone #: [phone] Number to return call [phone] Okay to leave a message ? Yes Last office visit 05/15/23 with OSKAR Snow in person Next office visit 09/01/23 with OSKAR Constantino in person documented in this encounter [facility] 05-22-[address] - 05/22/2023 12:40 PM EDT Look into Daily Kite or Factor 5 for meal options Get back to breakfast, lunch and dinner, avoid snacks (OK for Yasso bar or V8 juice) Easy meal option would be protein drink and fruit, smoothie, healthy soups, healthy frozen meals Start to exercise from a sitting position: 20-25 minutes/session 3-4 x per week: Chair or standing Team Body Project https://www.Equiomube.com/watch?v= c2ivNT-PbHi Chair exercise SuVoltapePubGame https://www.InsideSales.com/reso urce/videos-detail.asp?video=38 Ashtyn Matthewse Easy walk in place 15 min https://www.Equiomube.com/watch?v= gdhR38eygTA documented in this encounter [facility] 05-22-2023 History of Presen t illness Narrative Nutritional Therapy Re-Assessment Nutrition Diagnosis: Overweight/obesity, related to, excess energy intake and physical inactivity, as evidenced by BMI above normative standard for age and gender RECOMMENDED MALNUTRITION DIAGNOSIS: NO MALNUTRITION IDENTIFIED NUTRITION CARE PLAN: Nutrition Intervention 05/22/2023: modify type and amount of food or beverage Look into Daily Kite or Factor 5 for meal options Get back to breakfast, lunch and dinner, avoid snacks (OK for Yasso bar or V8 juice) Easy meal option would be protein drink and fruit, smoothie, healthy soups, healthy frozen meals Start to exercise from a sitting position: 20-25 minutes/session 3-4 x per week: Chair or standing Team Body Project https://www.[employer].com/watch?v= f3voFE-VjSd Chair exercise SuVoltapeople https://www.Cardica.[employer]/reso urce/videos-detail.asp?video=38 Ashtyn Matthewse Easy walk in place 15 min https://www.Equiomube.com/watch?v= ffpM90qdcWO Nutrition Monitoring & Evaluation: weight loss or [...] Snack - smoothie Dinner - bagel or luxembourger muffin with omani cheese; chicken and biscuits Snack - lately, [...] TIME: 12:20 PM documented in this encounter [facility] 04-24-2023 History of Presen t illness Narrative Marco Hernandez MD Department of Orthopaedics Orthopaedics [address] [facility] [address] Dept: [phone] Dept April 24, 2023 CHIEF COMPLAINT: Post [...] Pollen-Milan Hernandez MD documented in this encounter [facility] 04-10-2023 Miscellaneous Notes Noted, I am glad to hear she is doing okay, happy to see her if she has concerns. Patient called in stating that she fell on Monday. She landed on her left hip. Just some tightness and sore. Right hip is fine. She wanted office to know. documented in this encounter [facility] 04-07-2023 History of Presen t illness Narrative CDM Telephonic Outreach Provider Action/FYI CDM: CKD Spk with Pt, 03/15/23 she underwent Right Hip replacement, [facility] Physical Therapy completed on 04/05/23, Pt states [...] to talk about today? No Based on pressfitter, the following disposition is advised: No symptoms or symptoms present, not severe. Routed to: No Action Needed MICKY Education Provided this Outreach: Yes Hedy Owens RN April 07, 2023 11:45 AM documented in this encounter [facility] 04-03-2023 Miscellaneous Notes SITUATION: only patient [...] for intervention/education details. documented in this encounter [facility] 03-29-2023 Miscellaneous Notes Patient has been [...] Renee Dominguez LPN documented in this encounter [facility] 03-27-2023 History of Presen t illness Narrative Images from the original note were not included. Ortho Hip Follow Up Note Narrative Referring Provider: Marco Hernandez [address] [facility] [address] PCP: Helen Chapa MD IMPRESSION/PLAN: Impressions indicate: [...] (Bmi) of 40.0 to 44.9 in Adult ([facility]) Type 2 Diabetes Mellitus, Without Long-Term Current Use of Insulin ([facility]) Essential Hypertension, Benign Mixed Hyperlipidemia Hypothyroidism Michelle (Iron Deficiency Anemia) Anxiety and Depression Chronic Back Pain Primary Osteoarthritis Involving Multiple Joints Gerd (Gastroesophageal Reflux Disease) Other Irritable Bowel Syndrome Maurice On Cpap Chronic Headache Rls (Restless Legs Syndrome) Fibromyalgia 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 Ckd (Chronic Kidney Disease) Colon Cancer Screening Coronary 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 New x-ray today at [facility]. documented in this encounter [facility] 03-27-2023 History of Presen t illness [...] 2023 9:16 AM documented in this encounter [facility] 03-24-2023 Miscellaneous Notes SITUATION:only patient present during today's visit. patient reports the following since the last homecare visit: medications/allergies--no changes, no fall. patient reports that she is much better today BACKGROUND: Diagnoses (reason for Home Care): [place] 03/15/2023 to 03/16/2023. Primary Diagnoses (reason for Home Care): Primary osteoarthritis of Right hip s/p Right total hip arthroplasty. 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 With Serious Comorbidity and Body Mass Index (Bmi) of 40.0 to 44.9 in Adult ([facility]) Type 2 Diabetes Mellitus, Without Long-Term Current Use of Insulin ([facility]) Essential Hypertension, Benign Mixed Hyperlipidemia Hypothyroidism Michelle (Iron Deficiency Anemia) Anxiety and Depression Chronic Back Pain Primary Osteoarthritis Involving Multiple Joints Gerd (Gastroesophageal Reflux Disease) Other Irritable Bowel Syndrome Maurice On Cpap Chronic Headache Rls (Restless Legs Syndrome) Fibromyalgia 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 Ckd (Chronic Kidney Disease) Colon Cancer Screening Coronary Artery Disease Involving 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 documented in this encounter [facility] 03-22-2023 Miscellaneous Notes Medication review completed. No ineffective drug therapy, significant side effects, significant drug interactions, duplicate drug therapy, or noncompliance with drug therapy noted. Rehana Guerra RN documented in this encounter [facility] 03-22-2023 Miscellaneous Notes SITUATION:only patient present [...] . BACKGROUND: Diagnoses (reason for Home Care): [place] 03/15/2023 to 03/16/2023. Primary Diagnoses (reason for Home Care): Primary osteoarthritis of Right hip s/p Right total hip arthroplasty. 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 With Serious Comorbidity and Body Mass Index (Bmi) of 40.0 to 44.9 in Adult ([facility]) Type 2 Diabetes Mellitus, Without Long-Term Current Use of Insulin ([facility]) Essential Hypertension, Benign Mixed Hyperlipidemia Hypothyroidism Michelle (Iron Deficiency Anemia) Anxiety and Depression Chronic Back Pain Primary Osteoarthritis Involving Multiple Joints Gerd (Gastroesophageal Reflux Disease) Other Irritable Bowel Syndrome Maurice On Cpap Chronic Headache Rls (Restless Legs Syndrome) Fibromyalgia 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 Ckd (Chronic Kidney Disease) Colon Cancer Screening Coronary Artery Disease Involving 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 patient reports the following since the last homecare visit: medications/allergies--no changes, no fall. patient reports bad day yesterday, today is better. BACKGROUND: Diagnoses (reason for Home Care): [place] 03/15/2023 to 03/16/2023. Primary Diagnoses (reason for Home Care): Primary osteoarthritis of Right hip s/p Right total hip arthroplasty. 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 With Serious Comorbidity and Body Mass Index (Bmi) of 40.0 to 44.9 in Adult ([facility]) Type 2 Diabetes Mellitus, Without Long-Term Current Use of Insulin ([facility]) Essential Hypertension, Benign Mixed Hyperlipidemia Hypothyroidism Michelle (Iron Deficiency Anemia) Anxiety and Depression Chronic Back Pain Primary Osteoarthritis Involving Multiple Joints Gerd (Gastroesophageal Reflux Disease) Other Irritable Bowel Syndrome Maurice On Cpap Chronic Headache Rls (Restless Legs Syndrome) Fibromyalgia 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 Ckd (Chronic Kidney Disease) Colon Cancer Screening Coronary Artery Disease Involving 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 documented in this encounter [facility] 03-17-2023 Miscellaneous Notes SITUATION: son present during today's visit. patient reports the following since the last homecare visit: medications/allergies--no changes, no fall. patient reports im not too bad, its uncomfortable . BACKGROUND: Diagnoses (reason for Home Care): [place] 03/15/2023 to 03/16/2023. Primary Diagnoses (reason for Home Care): Primary osteoarthritis of Right hip s/p Right total hip arthroplasty. 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 With Serious Comorbidity and Body Mass Index (Bmi) of 40.0 to 44.9 in Adult ([facility]) Type 2 Diabetes Mellitus, Without Long-Term Current Use of Insulin ([facility]) Essential Hypertension, Benign Mixed Hyperlipidemia Hypothyroidism Michelle (Iron Deficiency Anemia) Anxiety and Depression Chronic Back Pain Primary Osteoarthritis Involving Multiple Joints Gerd (Gastroesophageal Reflux Disease) Other Irritable Bowel Syndrome Maurice On Cpap Chronic Headache Rls (Restless Legs Syndrome) Fibromyalgia 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 Ckd (Chronic Kidney Disease) Colon Cancer Screening Coronary Artery Disease Involving Kashia Coronary Artery of [place] Heart With Angina Pectoris ([facility]) Gastroesophageal Reflux Disease With Esophagitis Chronic Low Back Pain Vaginal Prolapse Acute Postoperative Pain Lbbb (Left Bundle Branch Block) Urinary Frequency SPECIFIC ORDERS Weight bearing status: Precaution/Activity Restriction Comments: standard Extremity With Weight Bearing Restricted: Right Lower Extremity Right Lower Extremity Weight Bearing Status: WBAT Wound location: RTHA, Wound care:Remove Silverlon POD 7-10 ASSESSMENT: Patient evaluated by [facility] physical therapy. Reviewed and explained [...] for intervention/education details. documented in this encounter [facility] 03-16-2023 Note HNO ID: [id number] Author: Hasmukh (House Cleaner Supervisor)Teresa Service: Pharmacy Author Type: ? Type: Plan of Care Filed: 03/16/2023 1:42 PM Note Text: PHARMACY BEDSIDE DELIVERY SERVICE Patient Name: Kemal Cantu The marked outpatient medications were Filled at: [facility] and delivered to the patient's bedside to [facility] Medication List START taking these medications acetaminophen [...] coated 81 mg EC tablet Teresa Noe (House Cleaner Supervisor) PAGER: [phone] March 16, 2023 1:42 PM [facility] 03-16-2023 Miscellaneous Notes Welcome Home Call: [phone] a. Date and Time: 11:47 AM 03/16/2023 b. Contact name/relationship: patient c. Have you been active with any Home Care company in the last 60 days (such as help with bathing, filling medications, checking your blood pressure)? No. d. [facility] will be providing your [...] maintain a safe environment for our caregivers, [facility] requires any animals or weapons present in the home be located in a secured location. Our clinicians will call you the night before or the morning of the appointment. Their # may come up restricted but they'll leave a VM for you. In case you have any questions or concerns in the meantime, our # is [phone], option 5 Thank you for your time and have a great day. - Patient states she has all DME already RAKEL Tariq documented in this encounter [facility] 03-16-2023 Note HNO ID: [id number] Author: Christiano Loya PA-C Service: Orthopaedic Surgery Author Type: Physician Redye Hand Type: Progress Notes Filed: 03/16/2023 9:19 AM [...] Prophylaxis Orders: 03/15/23 1245 PNEUMATIC COMPRESSION STOCKINGS ([place]) 03/15/23 1245 ACTIVITY - MOBILIZE PATIENT ([place], [place]) 03/15/23 1245 ACTIVITY [place]OB[place]) 03/15/23 1245 ACTIVITY - [place]OBILIZE [place]) PHYSICAL EXAMINATION: Right Lower Extremity: Dorsalis pedis [...] Patient demonstrated understanding of risks versus benefits. [facility] 03-16-2023 Note HNO ID: [id number] Author: Dillon Carrasquillo MD Service: General Internal [...] DATE: March 16, 2023 TIME: 8:49 AM [facility] 03-15-2023 Note HNO ID: [id number] Author: Scott Willis APRN.GINSENG FARMER Service: Anesthesiology Author Type: Nurse Rolled Glass Crosscutter Type: Anesthesia Procedure Notes Filed: 03/15/2023 8:04 AM Note Text: ANESTHESIOLOGY PROCEDURE NOTE Airway General Information Procedure Start Time/Medication Administration: 03/15/2023 7:43 AM Patient location during procedure: OR Timeout Performed Pre-procedure: timeout performed Consent Obtained: Yes Patient identity confirmed: arm band, care steam drier tender and patient Staffing GINSENG FARMER: Scott Willis APRN.GINSENG FARMER Performed by: GINSENG FARMER Indications and Patient Condition Indications for airway [...] March 15, 2023 TIME: 8:04 AM CSN: [id number] [facility] 02-27-2023 Instructions Karen Mcdaniel PA-C - 02/27/2023 10:45 AM EDT PATIENT PREOPERATIVE INSTRUCTIONS Marco Hernandez MD has scheduled you for your procedure at this surgery center: [facility]: [phone] -- [address] [facility] [address]. Please read below carefully for your personalized [...] or other anticoagulants without consulting with your sales representative facility services or prescribing physician. - Stop Vitamin E, [...] Advance Directive, please fax a copy to [phone] or email to for it to be [...] Karen Mcdaniel PA-C documented in this encounter [facility] 02-27-2023 History and physical note Images [...] Colon Cancer Screening Coronary Artery Disease Involving Kashia Coronary Artery of Kashia Heart With Angina Pectoris (Hcc) Gastroesophageal Reflux Disease With Esophagitis Chronic Low Back Pain Vaginal Prolapse Acute Postoperative Pain Lbbb (Left Bundle Branch Block) Urinary Frequency COVID-19 Immunization Status Overdue - COVID-19 VACCINE (4 - Moderna series) Overdue since 11/23/2021 02/11/2022 Postponed until 02/11/2023 by Екатерина Escalante APRN.RUBY ON RAILS DEVELOPER (Declined at this time) 09/28/2021 Imm Admin: COVID-19 original vaccine, full dose, monovalent (MODERNA) 09/03/2021 Postponed until 09/03/2022 by Екатерина Escalante APRN.RUBY ON RAILS DEVELOPER (Declined at this time) Only the first [...] manage symptoms. Procedure scheduled on 03/15/2023 at [facility]. REVIEW OF SYSTEMS: General: No weight loss, [...] urinary incontinence, nephrolithiasis and urinary tract infection. CADD MANAGER: H/o hysterectomy Endocrine: Positive for: diabetes mellitus [...] or any previous visit (from the past 29274 hour(s)). Assessment Patient has the following medical conditions which may affect argentina-operative course: Chronic headache Assessment: Stable on RX prn RLS (restless legs syndrome) Assessment: Stable on RX Fibromyalgia Assessment: Stable on RX Essential hypertension, benign Assessment: BP today in clinic 138/74. Stable on RX. Mixed hyperlipidemia Assessment: Stable on RX 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 (HCC) Assessment: Denies any new or worsening cardiac symptoms. Follows sales representative facility services, Dr. Fitch, last OV 10/07/22. Reports compliance [...] STOP-Bang Score: (+ MAURICE, doesn't use CPAP) [id number] Score: Age: >=75 Sex: female CHF history: No Hypertension history: Yes Vascular disease history: No Diabetes history: Yes [id number] Score: 5 ARISCAT Score: Age: 51-80 Preoperative [...] surgery, pending [see comment]. Labs, MAGDY from [facility] sales representative facility services scanned into chart CONSULTS: Patient does not [...] Karen Mcdaniel PA-C documented in this encounter [facility] 02-21-2023 Miscellaneous Notes TOTAL JOINT COMPLETE CARE PROGRAM PRE-OPERATIVE TEACHING Service Date: 02/21/2023 Service Time: 3:10 PM Date of : 1945 Gender: female Date of Surgery: 03/15/23 Procedure: Right Total Hip Replacement Complete Care Program was discussed with the patient: Sheet Metal Superintendent Identification: Patient identified a medication care manager to help when discharged to home: son coming out from [place] on 03/18/23 , other son local Home [...] Patient plans discharge to go to her [facility] house local until her other son flys in to assist her on 03/18. Discussed medicare guidelines and SNF, pt unaware that medicare did not cover SNF and would have preferred to have surgery lining up with her son coming into town to assist. SIGNATURE: RAKEL Maldonado PATIENT NAME: Kemal Cantu DATE: February 21, 2023 TIME: 3:10 PM documented in this encounter [facility] 02-21-2023 Miscellaneous Notes I called and [...] tried to speak with the pharmacy at [facility] and was advised to have Dr. Hernandez order the medication for her. Gabapentin enacarbil 300 mg TbER Pramipexole 0.125 mg tablet Patient stated that her medications are very hard to get a hold of. Please advise how to proceed as patient has brought her medications in in the past for another procedure 2 years ago. Nat Elias documented in this encounter [facility] 02-09-2023 Miscellaneous Notes Patient notified. Patient reports she is scheduled with Oskar Dasilva, on 05-18-23 for a 6 mth f/u. Asking if Brand Advisor would put order in lab for Hgba1c for this appt? Please phone patient with reply. documented in this encounter [facility] 02-08-2023 Miscellaneous Notes Patient has been [...] advise. Kemal Talley documented in this encounter [facility] 02-06-2023 Miscellaneous Notes Patient notified and will come in Monday to cone picker. Beatriz Ballard LPN This has been ordered. [...] in pain. She can be reached at [phone] Thank you Katie Daniels Pss documented in this encounter [facility] 01-27-2023 Miscellaneous Notes Surgery has been scheduled as requested. Surgical request completed for right DEYSI at [facility] on 03/15/2023. Post op appointments have been scheduled and mailed to the patient. [facility]. documented in this encounter [facility] 01-26-2023 Instructions Anderson Mims - 01/26/2023 10:27 AM EDT Continue with soaking of the toe until the toe is completely scabbed over and healed Continue with topical antibiotic. Small amount of antibiotic to lower moisture If toe appears moist, consider betadine Small band aide as opposed to large bulky dressing will help to lower moisture. documented in this encounter [facility] 01-26-2023 History of Presen t illness [...] (H) 4.3 - 5.6 % Final Comment: [place] [employer] guidelines indicate that patients with [...] in to toe. documented in this encounter [facility] 01-23-[address] - 01/23/2023 11:19 AM EDT Aim for three meals per week at the dining room table only Continue to focus on smaller portions, low fat choices Continue exercise as tolerate documented in this encounter [facility] 01-23-2023 History of Presen t illness [...] TIME: 10:58 AM documented in this encounter [facility] 01-19-2023 History of Presen t illness Narrative CONSULT ORTHOPAEDIC: HIP PRIMARY CARE PHYSICIAN: Helen Chapa MD REFERRING PROVIDER: Marco Hogan[address] [place] [address] ASSESSMENT & PLAN: Impression: Right Hip Severe [...] Mellitus, Without Long-Term Current Use of Insulin ([facility]) Essential Hypertension, Benign Mixed Hyperlipidemia Hypothyroidism Michelle (Iron Deficiency Anemia) Anxiety and Depression Chronic Back Pain Primary Osteoarthritis Involving Multiple Joints Gerd (Gastroesophageal Reflux Disease) Other Irritable Bowel Syndrome Maurice On Cpap Chronic Headache Rls (Restless Legs Syndrome) Fibromyalgia 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 Ckd (Chronic Kidney Disease) Colon Cancer Screening Coronary Artery Disease Involving Kashia Coronary Artery of Kashia Heart With Angina Pectoris (Hcc) Gastroesophageal Reflux [...] TIME: 1:18 PM documented in this encounter [facility] 01-18-2023 Miscellaneous Notes Patient has been [...] Beatriz Ballard LPN documented in this encounter [facility] 01-10-2023 Miscellaneous Notes Last OV: 11/16/22 Patient has been identified by name and date of : Yes Requested Prescriptions Pending Prescriptions Disp Refills pramipexole (MIRAPEX) 0.125 mg tablet 360 tablet 1 Sig: Take 1 tablet by mouth four times daily. RX INSTRUCTIONS: Patient aware RX will be sent to pharmacy. No need to notify patient. Rachael Espinosa LPN documented in this encounter [facility] 01-10-2023 Miscellaneous Notes January 11, 2023 PID: [id number] Kemal Cantu [address] [place] [address] Dear Ms. Cantu, We are pleased to [...] report will be kept on file at [facility] as part of your permanent medical record and are available for your continuing care. Thank you for allowing us to help in meeting your health care needs. Sincerely, Dr. Beauchamp Interpreting Radiologist [facility] (Normal over 40) documented in this encounter [facility] 01-10-2023 History of Presen t illness [...] 2023 10:25 AM documented in this encounter [facility] 12-19-[address] - [...] week with TV. documented in this encounter [facility] 12-19-2022 History of Presen t illness [...] Consider using a dip such as a [place] Citizen yogurt based (nonfat plain [place] Citizen yogurt with dressing mix or other seasonings). [...] (casserole/ skyla janeth w/ beans and avocado, libyan yogurt with taco seasonings,) Water, Snack - [...] TIME: 11:03 AM documented in this encounter [facility] 12-12-2022 Miscellaneous Notes LV: 02/05/21 FV: [...] mrx iop dfe ou optovue ou confocal managing consultant clinical professor ou I have confirmed and edited as [...] Bradley Hernandez MD documented in this encounter [facility] 12-12-2022 History of Presen t illness [...] procedure Anderson Mims DPM Podiatry [address] [facility] [address] Dept: [phone] Dept AMB ROOMING INTAKE FLOWSHEET DATA Pain Pain Level: 8 Pain Location: Toe Description: Sharp Duration Amount of Time: 2 Duration Units: Months Frequency: Intermittent Intervention/Comfort measure: Reposition, Relaxation, Other: See comment Comments: soaking Patient presents with: Right Great Toe - Established Patient, Follow Up, Ingrown Toenail Left Great Toe - Callous, Established Patient, Follow Up Lashonda Cortes LPN documented in this encounter [facility] 12-03-2022 Miscellaneous Notes Patient has been [...] Barbie Buitrago LPN documented in this encounter [facility] 12-01-2022 History of Presen t illness Narrative Images from the original note were not included. [facility] [place] Follow-up Visit Follow-up note December 01, 2022 [...] by mouth once daily. blood sugar diagnostic (DomobTOUCH ULTRA TEST) test strip Test blood sugar [...] which included preparing to see the patient, qznw-ro-zadb patient care, completing clinical documentation, obtaining and/or reviewing separately obtained history, performing a medically appropriate examination, counseling and educating the patient/family/caregiver, and communicating with other HCPs (not separately reported). PDMP website checked and validated. All prescriptions have been APPROPRIATELY filled. No suspicious activity was identified. December 01, 2022 Laurie Cee APRN.CNP documented in this encounter [facility] 11-28-2022 Miscellaneous Notes Completed. PAT from [facility] called. They need an allergy and medication list, for Kemal's upcoming surgery, faxed to them at [phone]. Bernie Dougherty RN documented in this encounter [facility] 11-23-2022 Miscellaneous Notes Orders faxed to [facility]. Referral placed. Orders printed and waiting for providers signature before being faxed. Order for hip injections in Epic, can we fax to [facility]? Patient will need in office follow up and updated xrays before additional repeat injection can be ordered. Patient called. Verified name and date of . Patient states she had fluoroscopy done in March 2022 at [facility] on right hip and is now asking to have bilateral done. Please review and advise. Jeannine Cummings LPN documented in this encounter [facility] 11-21-2022 Miscellaneous Notes Pt asking for pcp office to place mammo order. documented in this encounter [facility] 11-21-[address] - [...] Consider using a dip such as a [place] Citizen yogurt based (nonfat plain [place] Citizen yogurt with dressing mix or other seasonings). [...] Continue mindful eating documented in this encounter [facility] 11-21-2022 History of Presen t illness [...] Consider using a dip such as a [place] Citizen yogurt based (nonfat plain [place] Citizen yogurt with dressing mix or other seasonings). [...] Consider using a dip such as a [place] Citizen yogurt based (nonfat plain [place] Citizen yogurt with dressing mix or other seasonings). [...] TIME: 10:16 AM documented in this encounter [facility] 11-16-2022 History of Presen t illness [...] out regularly 5-6 times per week with [employer] stepper. She watches her diet for sodium, [...] out regularly 5-6 times per week with [employer] stepper. She watches her diet for sodium, [...] by mouth once daily. blood sugar diagnostic (DomobTOUCH ULTRA TEST) test strip Test blood sugar [...] diet of 1000 mg/day for under 50, 5486-4767 mg/day for 50+ - Discussed need and [...] PANEL BASIC 6. 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 (HCC) - ICD9: [...] Екатерина Escalante APRN.CNP documented in this encounter [facility] 11-11-2022 History of Presen t illness [...] peters name is Hedy Owens RN your Network Systems Analyst from Helen Chapa MD office at the [facility]. I am reaching out today because [...] 2022 3:42 PM documented in this encounter [facility] 10-25-2022 Miscellaneous Notes Pt called and [...] strips. Pharmacy told her because she didn't cone picker the glucometer when it was initially ready, the order . She was never given the lancets either. Please see encounters dated 09/06/22 & 09/08/22 for reference. Please advise patient at [phone] when resolved. documented in this encounter [facility] 10-25-2022 Miscellaneous Notes Patient has been [...] Jessica Bryson Pss documented in this encounter [facility] 10-04-2022 Miscellaneous Notes TE with PT [...] Nat Manriquez RN documented in this encounter [facility] 10-03-[address] - [...] Consider using a dip such as a [place] Citizen yogurt based (nonfat plain [place] Citizen yogurt with dressing mix or other seasonings). [...] on mindful eating documented in this encounter [facility] 10-03-2022 History of Presen t illness [...] Consider using a dip such as a [place] Citizen yogurt based (nonfat plain [place] Citizen yogurt with dressing mix or other seasonings). [...] TIME: 8:02 AM documented in this encounter [facility] 09-30-2022 Instructions Hollie Blevins Jr., MD [...] 1 with dinner. documented in this encounter [facility] 09-30-2022 History of Presen t illness [...] by mouth once daily. blood sugar diagnostic (Boston Boot ULTRA TEST) test strip Test blood sugar [...] which included preparing to see the patient, nuhs-ky-eqre patient care, completing clinical documentation, obtaining and/or reviewing separately obtained history, performing a medically appropriate examination, counseling and educating the patient/family/caregiver, and ordering medications, tests, or procedures. PDMP website checked and validated. All prescriptions have been APPROPRIATELY filled. No suspicious activity was identified. 09/30/2022 by Hollie Blevins MD documented in this encounter [facility] 09-20-2022 Miscellaneous Notes Instructed patient to [...] off of it. documented in this encounter [facility] 09-16-2022 Miscellaneous Notes Patient notified, verbalized [...] Екатерина Escalante APRN.BILL documented in this encounter [facility] 09-12-2022 History of Presen t illness [...] Vagina or pelvis 1. 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 Yes Core Winder offered:Patient declines OBJECTIVE: There were no vitals [...] frequency, she will follow-up Follow up with EMERGENCY MEDICAL TECHNICIAN Patient expressed understanding. I spent a total of 10 minutes on the date of the service which included preparing to see the patient, ofyp-zi-awto patient care, completing clinical documentation, obtaining and/or reviewing separately obtained history, performing a medically appropriate examination, and counseling and educating the patient/family/caregiver. Randi Jimenez MD documented in this encounter [facility] 09-08-2022 Miscellaneous Notes Kemal Cantu Ruvalcaba: [id number] - Rx #: [id number] help? Call us at Outcome Additional Information Required Message from [employer]: Drug is not covered by plan Drug Contour Next Monitor w/Device kit Form Electronic PA Form (2017 NCPD) Original Claim Info 70 ? CoverMyMeds Recommendation ? This medication may be excluded from the patient's benefit. For more information, please reach out to [employer] directly at [phone]. PHARMACY NEEDS TO RUN RX UNDER MEDICAL not pharmacy benefits. Prior Authorization Documentation Prior authorization requested for the following medication: Medication: Glucometer, strips, lancets, system. Insurance company would not tell patient or pharmacy which one is covered. Pharmacy tried to PA five different systems. Insurance told patient this can be done on Covermymeds web site. Provider: [employer] Name: [employer] Phone number: Patient ID number: [id number] Pharmacy Name: [facility] [place] [facility] Telephone number: [phone] documented in this encounter [facility] 09-07-2022 Miscellaneous Notes Ordered. Екатерина Escalante [...] Ara Tapia RN documented in this encounter [facility] 08-29-2022 Miscellaneous Notes Patient notified, appointment [...] low blood sugars. documented in this encounter [facility] 08-22-[address] - 08/22/2022 10:46 AM EST Do shopping immediately after meal, keep junk out of house Make a shopping list and shop only from a list If able no eating after dinner Include protein in meals Work on regular schedule of sleeping/waking Continue working to improve mindful eating documented in this encounter [facility] 08-22-2022 History of Presen t illness [...] TIME: 10:21 AM documented in this encounter [facility] 08-22-2022 Miscellaneous Notes Detailed message left on pt's identified VM of update below. Pt instructed to call PCP office if she has any further questions or concerns. Rosa Maria Jones RN Order sent. Please let patient know. Thank you Екатерина Escalante APRN.CNP Pt calling and states her current pharmacy is unable to supply her Ozempic. She states she has contacted [facility] in [place] and they currently have it. Pt asking for Екатерина Escalnate CNP to send Ozempic script to [facility]. Thank you. documented in this encounter [facility] 08-18-2022 Miscellaneous Notes PDMP website checked [...] Last Labs: 08/17/2022 documented in this encounter [facility] 08-17-2022 History of Presen t illness [...] by mouth once daily. blood sugar diagnostic (Boston Boot ULTRA TEST) test strip Test blood sugar [...] Екатерина Escalante APRN.BILL documented in this encounter [facility] 07-22-2022 Miscellaneous Notes Patient has been [...] Patti [place] LPN documented in this encounter [facility] 07-19-2022 Miscellaneous Notes Patient last visit 02/11/22 Follow up appointment scheduled 08/17/22 Gt Boland Ma documented in this encounter [facility] 06-27-[address] - [...] Use hunger/fullness scale. documented in this encounter [facility] 06-27-2022 History of Presen t illness [...] TIME: 10:14 AM documented in this encounter [facility] 06-08-2022 Miscellaneous Notes Patient has been [...] Beatriz Ballard LPN documented in this encounter [facility] 06-06-2022 History of Presen t illness [...] you received about pain medications helpful? Yes Core Winder offered:Patient declines OBJECTIVE: There were no vitals [...] Carol Mays APRN.CNP documented in this encounter [facility] 06-03-2022 Miscellaneous Notes Images from the [...] Katie Arechiga LPN documented in this encounter [facility] 06-02-2022 Miscellaneous Notes Pt is asking for a refill for omeprazole. Pt also asking if provider will consider refilling her valsartan? Pt sees [facility] & will continue to do so but states it is hard to get through to their office so would like pcp to refill for her. MAGDY: 02/11/22 NOV: 08/17/22 Last Refill: Omeprazole: 12/01/21 #180 1 refill Katie Arechiga LPN documented in this encounter [facility] 05-19-2022 History of Presen t illness Narrative Images from the original note were not included. [facility] [place] Follow-up Visit Follow-up note May 19, 2022 [...] If still low, will consult [facility] in [place] for IV infusion therapy as possible treatment [...] sleep study was 3-5 years ago in [place]. States that for the past six months [...] by mouth once daily. blood sugar diagnostic (Boston Boot ULTRA TEST) test strip Test blood sugar [...] which included preparing to see the patient, yxmq-wo-lbya patient care, completing clinical documentation, obtaining and/or reviewing separately obtained history, performing a medically appropriate examination, counseling and educating the patient/family/caregiver, and ordering medications, tests, or procedures. PDMP website checked and validated. All prescriptions have been APPROPRIATELY filled. No suspicious activity was identified. May 19, 2022 Laurie Cee APRN.BILL documented in this encounter [facility] 05-16-[address] - 05/16/2022 11:21 AM EDT Look for lower calorie nutrition bar If able no evening snack, try broth or tea All beverages calorie free and sugar free Wait 10 min before snacking to see if still want it. (Go outside, get fresh air) Start walking for exercise documented in this encounter [facility] 05-16-2022 History of Presen t illness [...] TIME: 11:01 AM documented in this encounter [facility] 05-02-2022 History of Presen t illness Narrative URODYNAMICS ID Verified by: Emelyn Mullins RN URODYNAMIC PROCEDURE NOTE B/O UA: WNL Negative CAR REPAIRER APPRENTICE UROFLOWMETRY Voided vol: 253 mL Flow time: [...] Stage lll / lV prolapse Cervix / [place] - Stage lll / lV prolapse POP-Q: [...] Q av mL/sec, PVR: 75 mL, negative CAR REPAIRER APPRENTICE -Filling cystometrics: First desire: 92 mL, Strong [...] patient was offered a surgery/procedure at a [facility] facility. The surgeon/proceduralist and patient have [...] symptoms (15% if incontinence procedure, 20% for [place] tissue repair, 5-15% if sacrocolpopexy), urinary retention [...] 100mg BID Miralax daidory Send [facility] pharmacy on day of surgery Labs: Cr: [...] which included preparing to see the patient, hfdp-ez-kccp patient care, completing clinical documentation, obtaining and/or reviewing separately obtained history, counseling and educating the patient/family/caregiver, and ordering medications, tests, or procedures. Randi Jimenez MD documented in this encounter [facility] 04-29-2022 Miscellaneous Notes Pharmacy verified in [...] Taniya Nava Pss documented in this encounter [facility] 04-29-2022 Miscellaneous Notes Images from the original note were not included. Maria Del Rosario Cooney APRN.RUBY ON RAILS DEVELOPER You 17 hours ago (3:35 PM) Yes [...] Jeannine Cummings LPN documented in this encounter [facility] 04-28-2022 Noa Ellis LPN - 04/28/2022 8:09 AM EDT UROGYNECOLOGY PHYSICIAN CONTACT INFORMATION During business hours, these numbers connect to your doctor s office. During the evening and weekends, these numbers will connect you to the answering service to speak with the doctor transportation driver. Dr. Rausch Dr. Campuzano ([place]) Dr. Davis Dr. V[place] Dr. [place] Dr. B[place] Dr. Pedersen Dr. Jimenez Dr. Silver Meghan Edwards CNP Felicita Beauchamp, BILL Joan Tiffaine, BILL After hours phone number: or toll free Ask the sawmill equipment operator to page the 'fluxer transportation driver.' Surgery Scheduling Office: Call the day before [...] vitamin E, herbal medications, diet pills, and voad-sdt-vcidvim medications. Tylenol (acetaminophen) is okay. I will not wear jewelry, body piercing(s), makeup, nail mozambican, hairpins, or contacts on the day of [...] my surgeon. Discuss medication changes with your sales representative facility services or primary care physician as well. If I stopped taking my blood-thinning medication, I will ask the surgeon when to resume taking it. If I am an outpatient, a responsible person will drive me home and it was suggested that someone stay with me for 24 hours. I understand that a director business development or cabdriver is NOT a responsible caregiver. [...] surgery, I must call my surgical services manager after 2pm the day before surgery. Pre-operative instructions given by: PREOP INSTRUCTIONS THE DAY OF SURGERY/CHECK IN Report to DESK 1-9 for surgery. A map is located in Your Surgical Guide Book. The online version of the surgical guide book can be found at: [email or web address] The address is [address] [place] [address]/[place] [address] INFECTION PREVENTION Please notify your doctor if [...] to dispose of unused medications at three [facility] locations: [facility] pharmacy, [facility] pharmacy, and the Pharmacy at the [facility] for [facility] (inside the parking garage on the [...] PHYSICIAN CONTACT INFORMATION Dr. Rausch Dr. Campuzano ([facility]) Dr. Silver Dr. Davis Dr. Vidal Dr. Borden Dr. Pedersen Dr. Jimenez Meghan Edwards, RUBY ON RAILS DEVELOPER Manuel Torres, RUBY ON RAILS DEVELOPER Felicita Beauchamp, RUBY ON RAILS DEVELOPER Joan Moreno, RUBY ON RAILS DEVELOPER Please DO NOT use MyChart for post-surgery concerns. [facility] TEAM At the [facility], we have a multidisciplinary team of caregivers that includes fellows, residents, nurse practitioners, physician assistants, clinical nurse specialists, nurses, medical assistants, patient care nursing assistants, social workers, case manager and many others. We all have different roles and responsibilities but we are all here to help. documented in this encounter [facility] 04-28-2022 History of Presen t illness Narrative DATE OF SERVICE: 04/28/2022 PROBLEM: Kemal Cantu presents for pre-op teaching. PRE-OP DIAGNOSIS: vaginal prolapse SCHEDULED SURGERY AND DATE: 05-06-22 [facility] COLPOPEXY VAGINAL EXTRA-PERITONEAL, ANTERIOR COLPORRHAPHY REPAIR CYSTOCELE [...] patient have an advanced directive: Yes Does [facility] have a copy of the patient's [...] prescribed by anesthesia, internal medicine, surgeon, or PIN DRAFTER OPERATOR Stop NSAIDs, Aspirin (ASA), vitamins, herbal supplements, [...] jewelry, body piercing, makeup, contacts, lotions, nail mozambican on fingers, or anything in hair on arrival to surgery Wear low healed shoes and loose fitting clothing Leave all valuables at home or with a family member Directions to [facility] Parking/parking validation on the day prior [...] if after hours patient instructed to call sawmill equipment operator and ask for transportation driver fluxer onc resident. MICKY program offered to patient: [...] None Educator: Gt Ellis LPN [facility] [place] documented in this encounter [facility] 04-27-2022 Miscellaneous Notes Called and spoke [...] and make sure she is aware of sales representative facility services instructions for pre-op AC instructions given. The patient may hold Aspirin 7-10 days and Brilinta is on hold for 5-7 days prior. documented in this encounter [facility] 04-26-2022 History of Presen t illness Narrative Received fax Payton Bruno CNP at [facility], clearing patient for surgery. The patient may hold Aspirin 7-10 days and Brilinta is on hold for 5-7 days prior. Sent to medical records to be scanned. documented in this encounter [facility] 04-22-2022 Miscellaneous Notes Received office visit, stress test and EKG from [facility]. Copy made for Maria Del Rosario Cooney CNP and original sent to sawmill equipment operator to scan. Alessia Luque LPN Called and left a message with Nadia (Dr. Fitch's corporate receptionist) requesting patients office visit and cardiac testing from 04/22/22. Alessia Luque LPN documented in this encounter [facility] 04-22-2022 Instructions Maria Del Rosario Cooney APRN.BILL - 04/22/2022 1:26 PM EDT PATIENT PREOPERATIVE INSTRUCTIONS No ref. provider found has scheduled you for your procedure at this surgery center: [facility] [place] Scheduling Office: [phone] --[address] [place] [address]. Please read below carefully for your personalized [...] Procedures: - YOU MUST HAVE A RESPONSIBLE MIXED CROP AND LIVESTOCK FARM WORKER TAKE YOU HOME. A NEGATIVE CHECKER OR CARPET LOOM FIXER CANNOT BE MADE A RESPONSIBLE MIXED CROP AND LIVESTOCK FARM WORKER. - We recommend that a responsible person [...] call the Monday before. Your surgeon s dental scheduler will tell you what time to call the office. - If you have not reached the departmental dental scheduler by 5 P.M., call [phone] after 5 P.M. the day before your surgery. Please be aware that emergency situations arise, which may delay or change your surgical time. If this happens, we will notify you as soon as possible and regret any inconvenience. 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 GI: Positive for: GERD (on rx) Negative for: abdominal pain, dysphagia, hepatitis, irritable bowel syndrome, inflammatory bowel disease, liver disease, nausea, pancreatitis, vomiting and ETOH >2 drinks/day. : Positive for: renal failure. Patient's renal failure is chronic. Negative for: urinary incontinence, nephrolithiasis and urinary tract infection. CADD MANAGER: Negative for abnormal vaginal bleeding, abnormal vaginal [...] once daily. Taking Yes blood sugar diagnostic (Zevez CorporationUCH ULTRA TEST) test strip Test blood sugar [...] 8760 hour(s)). Recent Results (from the past 50654 hour(s)) ECHO Collection Time: 08/27/19 9:00 AM Result Value [facility] Director Echocardiography Report: Transthoracic Echo [facility] Date of service: 08/27/2019 9:00:10 AM PATIENT ACCOUNT REPRESENTATIVE Ordering physician: FRANCESCO CASTREJON Indication: Abnormal chest X-ray Symptom(s): Shortness of breath Technologist: Nat Ny [facility] Interpreting physician: Scott Monae DO PATIENT: Name: [...] (BMI) of 40.0 to 44.9 in adult ([facility]) Assessment: Body mass index is 42.13 kg/m . 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 ([facility]) Assessment: hx stents, received cardiac clearance and [...] during sleep Non-male patient STOP-Bang Score: 5 [id number] Score: Age: >=75 Sex: female CHF history: No Hypertension history: Yes Stroke/TIA/thromboembolism history: No Vascular disease history: Yes Diabetes history: Yes [id number] Score: 6 ARISCAT Score: Age: 51-80 Preoperative [...] and consent discussed: yes. Patient / Responsible Republican agrees to proceed: yes Patient / Surrogate [...] PM PAGER/CONTACT #: documented in this encounter [facility] 04-21-2022 Miscellaneous Notes NOV 08/17/22 Older [...] Carly Newsome MA documented in this encounter [facility] 04-04-2022 Miscellaneous Notes Letter requesting cardiac clearance and anticoagulation recommendations faxed to Dr. Fitch, confirmation received. Patient has an appt 04/15/22. Patient needs cardiac surgery clearance form sent to sales representative facility services who is outside the clinic. Please fax clearance form to [phone] ATTN: Dr. Paolo Little documented in this encounter [facility] 04-04-2022 Miscellaneous Notes Called patient verified name and Had some questions regarding UDS testing, procedure explained All questions answered patient was thankful for the call Renetta Rod RN Patient LVM on nurse triage line stating she has a question about upcoming procedure. Kemal Cortes RN April 04, 2022 10:12 AM documented in this encounter [facility] 03-31-2022 Miscellaneous Notes Patient is still [...] CYSTOSCOPY on 05/06/[address] Jimenez at [facility]. Patient is not currently scheduled for any pre or post op appointments. Please assist in scheduling. Routing to surgery schedulers. Georgette Bright RN March 24, 2022 2:59 PM Patient is calling today to discuss an upcoming surgery and what she needs to do to prepare. Please contact the Patient to discuss. Altagracia White Pss documented in this encounter [facility] 03-28-2022 History of Presen t illness [...] textures etc. Use hunger/fullness scale. Look into [facility] for social opportunities Actions to implement interventions: [...] TIME: 1:01 PM documented in this encounter [facility] 03-09-2022 Miscellaneous Notes Patient notified, states [...] Екатерина Escalante APRN.CNP Patient phoned to let Brand Advisor know she decreased the glyburide to half the dose, about 2 weeks ago. It was 2.5 mg, now taking 1.25 mg. States she was not testing her BS, she was getting symptoms: shaky, sweaty. Reports since she started cutting the glyburide in half has not gotten these symptoms. documented in this encounter [facility] 03-08-2022 Miscellaneous Notes Patient called to notify DM that her surgery with Dr. Jimenez is scheduled for 05/06. CHINTAN Li RN documented in this encounter [facility] 02-28-[address] - [...] textures etc. Use hunger/fullness scale. Look into [facility] for social opportunities documented in this encounter [facility] 02-28-2022 History of Presen t illness [...] textures etc. Use hunger/fullness scale. Look into [facility] [employer] Nutrition Monitoring & Evaluation: half to one [...] Fairlife milk; eggs and whole grain toast; [place] Citizen yogurt and fruit; 6. Continue regular exercise [...] TIME: 9:32 AM documented in this encounter [facility] 02-25-2022 History of Presen t illness [...] 2022 8:49 AM documented in this encounter [facility] 02-21-2022 Miscellaneous Notes Patient has been [...] to the pharmacy. Please call patient at: [phone]. Becky Feng documented in this encounter [facility] 02-01-2022 Miscellaneous Notes Called and left a detailed voicemail notifying patient of providers message. Hospital phone number was left in case patient had any questions. Nadia Bourgeois, RN I ordered the thyroid and lipids Patient is scheduled this 02/03 for labs and is requesting Thyroid and lipid panel and any other orders. documented in this encounter [facility] 01-31-2022 History of Presen t illness Narrative INSIGHT CDM ESCALATION Provider Action/FYI: Music Rehabilitation Therapist Questionnaire Triggered call Pt noted on questionnaire [...] Pt noted will schedule an PCP / RUBY ON RAILS DEVELOPER Appt to have it evaluated. Denies needs or concern, appreciated the call Message received via: [facility] - Yes contact made with patient ACTION TAKEN: Based on pressfitter, the following disposition is advised: SYMPTOMS PRESENT NOT SEVERE: No action required - Continue outreach / Phone Call Hedy Owens RN January 31, 2022 9:44 AM documented in this encounter [facility] 01-24-2022 Miscellaneous Notes Patient has been [...] Jessica Bryson Pss documented in this encounter [facility] 01-03-2022 History of Presen t illness [...] 2022 3:33 PM documented in this encounter [facility] 01-03-2022 History of Presen t illness Narrative Lety Haywood PA-C Department of Orthopaedics Orthopaedics [address] [facility] [address] Dept: [phone] Dept January 03, 2022 CHIEF COMPLAINT: Established [...] bilateral total knee with a provider in [place], she has some concerns that she has [...] replacements, [facility] the [facility] Kemal Cantu was advised as to [...] the RIGHT hip without acute osseous abnormality. Museum Educator: CHAR Transcribe Date/Time: Apr 13 2021 11:15A [...] mouth daily with breakfast. blood sugar diagnostic (Boston Boot ULTRA TEST) test strip Test blood sugar [...] anxiety) This note was partially generated using [employer] voice recognition system, and there may be [...] not check FBS. documented in this encounter [facility] 01-03-2022 Miscellaneous Notes Pharmacy calls in requesting the following refill(s): Pending Prescriptions Disp Refills COLESTIPOL 1 GRAM TABLET 60 tablet 5 Sig: take 1 tablet by mouth twice a day JAJA: Yes documented in this encounter [facility] 12-28-2021 Miscellaneous Notes Pt. would like to follow-up with Lety for right hip pain. She would like injection. Explained that hip injections are usually done in radiology. She has had back films and seen spine as ordered by Lety. Appt. made with Lety to discuss. documented in this encounter [facility] 12-16-2021 Miscellaneous Notes Noted. She does [...] for another fitting. Has an appointment in [place] in January and will discuss surgery. Only need to call patient back if provider has more information to relay to patient. Taniya Li RN documented in this encounter [facility] 12-15-2021 Miscellaneous Notes documented in this encounter [facility] 12-08-2021 Miscellaneous Notes Called patient discussed [...] Bri Romero APRN.BILL documented in this encounter [facility] 12-03-2021 Miscellaneous Notes December 03, 2021 PID: [id number] Kemal Cantu [address] [place] [address] Dear Ms. Cantu, We are pleased to [...] report will be kept on file at [facility] as part of your permanent medical record and are available for your continuing care. Thank you for allowing us to help in meeting your health care needs. Sincerely, Dr. Rubi Interpreting Radiologist [facility] (Normal over 40) documented in this encounter [facility] 11-30-2021 Instructions Bri Romero APRN.RUBY ON RAILS DEVELOPER - 11/30/2021 1:39 PM EDT Images from [...] Light white/wheat Salima-Whole wheat Pumpernickel Whole wheat [place] 3 1/2 inches 2 slices 7 inches [...] Squash (winter) Green peas, cooked Covarrubias beans [place], cooked 1/2 cup 1/2 cup 1/2 cup 1 medium 1/2 cup 1/2 cup 1/2 cup 1/2 cup 1/2 cup 4 6 5 3 4 3 4 7 2 1 3 1 1 2 2 1 3 trace Nuts and Seeds Almonds Peanuts [place] seeds Walnuts 1/4 cup 1/4 cup 1/4 cup 1/4 cup 3 3 3 2 1 1 1 trace Fruits Apple with skin Banana Blueberries Grapefruit [place] Pear with skin Prunes Strawberries 1 medium 1 medium 1 cup 1/2 cup 1 medium 1 medium 3 1 cup 3 2 2 1 3 4 2 4 1 1 trace 1 2 2 1 1 Vegetables, non-starchy Broccoli Hazen sprouts Cabbage-green Carrot Cauliflower Green beans Kale Spinach Squash (zucchini) 1/2 cup 1/2 cup 1 cup, fresh 1/2 cup cooked 1/2 cup cooked 1/2 cup 1/2 cup 1/2 cup 1/2 cup 3 4 2 2 1 2 3 2 1 1 2 1 1 trace 1 1 1 1 Copyright 5239-7006 The [facility]. All rights reserved. This information is provided by the [facility] and is not intended to replace the medical advice of your doctor or health care provider. Please consult your health care provider for advice about a specific medical condition. For additional health information, please contact the [facility] [employer] [facility] Information at the [facility] or toll-free extension [phone]. If you prefer, you may visit [email or web address] or [email or web address]. This document was last reviewed on: 2009 index#[id number] documented in this encounter [facility] 11-30-2021 History of Presen t illness [...] stopping dicyclomine She reports she is seeing elastic attacher coverstitch - she is trying to loose weight [...] told patient to please reach out through [employer] or call for update. - She reports [...] with more than 50% of the total igmp-jw-aovb time of the visit in counseling / coordination of care. I have confirmed and edited as necessary, the PFSH and ROS obtained by others. Bri Romero APRN.CNP November 30, 2021 3:03 PM documented in this encounter [facility] 11-30-2021 Miscellaneous Notes Previous request was [...] Renee Dominguez LPN documented in this encounter [facility] 11-29-2021 History of Presen t illness [...] for MAURICE and RLS. Recently moved from [place] to [place]. Currently on Mirapex 0.125mg 2 tabs at [...] mouth daily with breakfast. blood sugar diagnostic (Boston Boot ULTRA TEST) test strip Test blood sugar [...] If still low, will consult Heme in [place] for IV infusion therapy as possible treatment [...] which included preparing to see the patient, yrcw-kg-gxdy patient care, completing clinical documentation, obtaining and/or reviewing separately obtained history, performing a medically appropriate examination, counseling and educating the patient/family/caregiver, ordering medications, tests, or procedures, independently interpreting results (not separately reported) and communicating results to the patient/family/caregiver. PDMP website checked and validated. All prescriptions have been APPROPRIATELY filled. No suspicious activity was identified. 11/29/2021 by Hollie Blevins MD documented in this encounter [facility] 11-29-2021 Miscellaneous Notes LV: 02/08/21 FV: [...] mrx iop dfe ou optovue ou confocal managing consultant clinical professor ou I have confirmed and edited as [...] Bradley Hernandez MD documented in this encounter [facility] 11-23-2021 Miscellaneous Notes Patient has been identified by name and date of : Yes Patient phones for refill(s): Pending Prescriptions Disp Refills MONTELUKAST 10 MG TABLET 210 tablet Sig: take 1 tablet by mouth at bedtime JAJA: Yes Date of last office visit in primary care: 11/01/21 Please advise. Thank you. Carly Hussein LPN documented in this encounter [facility] 11-18-2021 History of Presen t illness Narrative InSight CDM Enrollment Provider Action/FYI: Spk with Pt who is in agreement with [facility]Sight Chronic Disease Management program via web/ computer. Pt denies falls, uses a can for long distances. Patient referred by: [facility] Anthony Contact made with patient: Yes - Patient identified by name and . Discussed care with patient Grey this is Hedy Owens, RN and I am calling from Helen Chapa MD office at the [facility]. I am a RN Network Systems Analyst with our inSight Chronic Disease Management program. [...] few questions once a week through your [employer] account. It will automatically show up for [...] goal align with programs offered at the [facility]? No Patient accepts palliative care coordinator Thank you for your time today. I am excited to work together in managing your health! You will receive information on next steps through your [employer] account, and I will check back within a few weeks to ensure you have all that you need to use the program successfully. (Place name in care team and assign [employer] Music Rehabilitation Therapist questionnaire) Most people know what to do to become healthier, yet struggle to put it into action on their own.It can be hard to maintain a healthy lifestyle, especially when life is so stressful. Can we connect you with a [facility] Health Golf Cart Maker to find a program that could help you meet your goals? No Closing: Patient accepts palliative care coordinator Thank you for your time today. I am excited to work together in managing your health! You will receive information on next steps through your [employer] account, and I will check back within a few weeks to ensure you have all that you need to use the program successfully. (Place name in care team and assign [employer] Daily [employer] Music Rehabilitation Therapist questionnaire) Hedy Owens RN November 18, 2021 8:55 AM documented in this encounter [facility] 11-17-2021 History of Presen t illness Narrative Images from the original note were not included. Mckinley Jacobsen PA-C [facility] [address] [place] [address] 11/17/2021 ASSESSMENT AND PLAN: Assessment : Encounter [...] today with this patient visit. This includes qiey-tu-vhbb time, review of chart records regarding conservative care history, spine-pertinent imaging, and communication/care coordination with referring provider, problem-specific history-taking and counseling/education regarding treatment options. cc: Lety Haywood [address] [facility] [id number] Fax: Results of consultation to be transmitted via electronic medical record for those providers who practice within [facility] or with access to [employer] via MD Connect, or via letter. ################################ [...] breakfast. 90 tablet 3 blood sugar diagnostic (Zevez CorporationUCH ULTRA TEST) test strip Test blood sugar [...] See discussion above documented in this encounter [facility] 11-08-[address] - [...] Fairlife milk; eggs and whole grain toast; [place] Citizen yogurt and fruit; 6. Continue regular exercise 20-30 min 5 days per week (try seated exercises as available on youtube - hang peters and others) documented in this encounter [facility] 11-08-2021 History of Presen t illness [...] Fairlife milk; eggs and whole grain toast; [place] Citizen yogurt and fruit; 6. Continue regular exercise [...] 180 sarah, 24 g carb, Snack - [place] Citizen yogurt or banana or luxembourger muffin Lunch - prepared tuna or egg [...] TIME: 11:01 AM documented in this encounter [facility] 04-13-2021 History of Presen t illness [...] 2021 10:58 AM documented in this encounter [facility] 03-03-2021 History of Presen t illness Narrative .Nutrition rescreen completed. Chart reviewed. Patient to be monitored and followed by the diet sterilisation technician.JOHN Greer [facility] CCU PROGRESS NOTE Patient Name: Kemal Cantu : 1945 Reason for Admission: Unstable Angina History of Present Illness: Kemal Cantu is a 75 y.o. female with PMHx LBBB (02/03/2021), T2DM (A1c 7.8), HTN, Fibromyalgia, Hypothyroidism, GERD, Migraines, RLS, MAURICE suspect that was admitted to [facility] on 03/01/2021 from [facility] ([place]) after having a LHC at OSH that [...] Social Gatherings with Friends and Family: Attends Yazdanism Services: Active Member of Clubs or Organizations: [...] ABGs: No results found for: PHART, PO2ART, [id number] INR: No results for input(s): INR in [...] time. Cardiac Studies: - EK/20 Measurements Intervals [place] Rate: 63 P: 15 NC: 242 QRS: -36 QRSD: 142 T: 95 QT: 448 QTc: 459 Interpretive Statements Sinus rhythm Prolonged NC interval Left bundle branch block - Telemetry [...] Angina - CCS stage 3 - s/p [facility] 03/01/2021 difficulty crossing the RCA lesion [...] this encounter [facility] Work Phone: 03-02-2021 Note [facility] CCU Discharge Francisco leo Patient Name: Kemal Cantu : 1945 ADMIT: 03/01/2021 DISCHARGE: 03/03/2021 PCP: Paolo Fitch MD Visit Status: Admission Code Status: FULL CODE Chief Complaint: Unstable Angina Hospital Course HPI : The patient is a 75 y.o. female with PMH a LBBB (02/03/2021), T2DM (A1c 7.8), HTN, Fibromyalgia, Hypothyroidism, GERD, Migraines, RLS, MAURICE suspect that was admitted to [facility] on 03/01/2021 3:56 PM from OSH ([place]) after having a LHC at OSH that was unable to stent her RCA lesion due to calcification. She was transferred to [facility] for further intervention. She underwent LHC and arthrectomy 03/02. She tolerated the procedure well and is stable for discharge home. Procedures Performed: Cardiac Catheterization (Date: 03/[address] Cobos): Report pending Echocardiogram (Type: complete Date: 03/01): (@OSH) LVEF 65% Discharge Diagnoses: CAD, LBBB Unstable Angina - CCS stage 3 - s/p [facility] 03/01/2021 difficulty crossing the RCA lesion - s/p [facility] 03/02/2020 orbital arthrectomy nd LORI placed [...] Discharge Medications: Kemal Cantu Home Medication Instructions EDGAR:[id number] Printed on:03/03/21 7745 Medication Information aspirin 81 MG chewable tablet [...] with Diabetes 6-8 week follow up with Button Inspector COMPLEXITY OF FOLLOW UP: [x]Moderate Complexity: follow up within 7-14 calendar days (77670) [] Severe Complexity: follow up within 7 calendar days (37601) DISCHARGE TIME: < 30minutes [facility] 03-02-2021 Evaluation note Diagnosis Onset Date Essential hypertension chron ic Hyperlipidemia chronic History of coronary artery stent placement March 02, 2021 resolved [facility] Work Phone: 1(733) 463-549407-20-2021 Evaluation note* Diagnosis Onset Date Resolution Status FINNEY (dyspnea on exertion) ac meryl Essential hypertension chron ic Hyperlipidemia chronic History of coronary artery stent placement March 02, 2021 resolved [facility] Work Phone: 1(222) 293-620903-15-2021 History of Past illness Narrative* Problem Noted Date Resolved Date Sacroiliac pain 10/26/2020 11/19/2020 Closed nondisplaced fracture of distal phalanx of finger with routine healing 10/26/2020 11/19/2020 documented as of this encounter (statuses as of 11/08/2021) [address]15-2021 History of Past illness Narrative* Problem Noted Date Resolved Date Sacroiliac pain 10/26/2020 11/19/2020 Closed nondisplaced fracture of distal phalanx of finger with routine healing 10/26/2020 11/19/2020 documented as of this encounter (statuses as of 11/18/2021) [address]15-2021 History of Past illness Narrative* Problem Noted Date Resolved Date Sacroiliac pain 10/26/2020 11/19/2020 Closed nondisplaced fracture of distal phalanx of finger with routine healing 10/26/2020 11/19/2020 documented as of this encounter (statuses as of 11/18/2021) [address]15-2021 History of Past illness Narrative* Problem Noted Date Resolved Date Sacroiliac pain 10/26/2020 11/19/2020 Closed nondisplaced fracture of distal phalanx of finger with routine healing 10/26/2020 11/19/2020 documented as of this encounter (statuses as of 11/23/2021) [address]15-2021 History of Past illness Narrative* Problem Noted Date Resolved Date Sacroiliac pain 10/26/2020 11/19/2020 Closed nondisplaced fracture of distal phalanx of finger with routine healing 10/26/2020 11/19/2020 documented as of this encounter (statuses as of 11/29/2021) [address]15-2021 History of Past illness Narrative* Problem Noted Date Resolved Date Sacroiliac pain 10/26/2020 11/19/2020 Closed nondisplaced fracture of distal phalanx of finger with routine healing 10/26/2020 11/19/2020 documented as of this encounter (statuses as of 11/29/2021) [address]15-2021 History of Past illness Narrative* Problem Noted Date Resolved Date Sacroiliac pain 10/26/2020 11/19/2020 Closed nondisplaced fracture of distal phalanx of finger with routine healing 10/26/2020 11/19/2020 documented as of this encounter (statuses as of 12/01/2021) [address]15-2021 History of Past illness Narrative* Problem Noted Date Resolved Date Sacroiliac pain 10/26/2020 11/19/2020 Closed nondisplaced fracture of distal phalanx of finger with routine healing 10/26/2020 11/19/2020 documented as of this encounter (statuses as of 12/01/2021) [facility] History of Past illness Narrative* Problem Noted Date Resolved Date Sacroiliac pain 10/26/2020 11/19/2020 Closed nondisplaced fracture of distal phalanx of finger with routine healing 10/26/2020 11/19/2020 documented as of this encounter (statuses as of 12/03/2021) [address]15-2021 History of Past illness Narrative* Problem Noted Date Resolved Date Sacroiliac pain 10/26/2020 11/19/2020 Closed nondisplaced fracture of distal phalanx of finger with routine healing 10/26/2020 11/19/2020 documented as of this encounter (statuses as of 12/07/2021) [address]15-2021 History of Past illness Narrative* Problem Noted Date Resolved Date Sacroiliac pain 10/26/2020 11/19/2020 Closed nondisplaced fracture of distal phalanx of finger with routine healing 10/26/2020 11/19/2020 documented as of this encounter (statuses as of 12/08/2021) [address]15-2021 History of Past illness Narrative* Problem Noted Date Resolved Date Sacroiliac pain 10/26/2020 11/19/2020 Closed nondisplaced fracture of distal phalanx of finger with routine healing 10/26/2020 11/19/2020 documented as of this encounter (statuses as of 12/15/2021) [address]15-2021 History of Past illness Narrative* Problem Noted Date Resolved Date Sacroiliac pain 10/26/2020 11/19/2020 Closed nondisplaced fracture of distal phalanx of finger with routine healing 10/26/2020 11/19/2020 documented as of this encounter (statuses as of 12/16/2021) [facility]03-15-2021 History of Past illness Narrative* Problem Noted Date Resolved Date Sacroiliac pain 10/26/2020 11/19/2020 Closed nondisplaced fracture of distal phalanx of finger with routine healing 10/26/2020 11/19/2020 documented as of this encounter (statuses as of 12/28/2021) [facility]03-15-2021 History of Past illness Narrative* Problem Noted Date Resolved Date Sacroiliac pain 10/26/2020 11/19/2020 Closed nondisplaced fracture of distal phalanx of finger with routine healing 10/26/2020 11/19/2020 documented as of this encounter (statuses as of 01/03/2022) [facility]03-15-2021 History of Past illness Narrative* Problem Noted Date Resolved Date Sacroiliac pain 10/26/2020 11/19/2020 Closed nondisplaced fracture of distal phalanx of finger with routine healing 10/26/2020 11/19/2020 documented as of this encounter (statuses as of 01/03/2022) [facility]03-15-2021 History of Past illness Narrative* Problem Noted Date Resolved Date Sacroiliac pain 10/26/2020 11/19/2020 Closed nondisplaced fracture of distal phalanx of finger with routine healing 10/26/2020 11/19/2020 documented as of this encounter (statuses as of 01/04/2022) [address]15-2021 History of Past illness Narrative* Problem Noted Date Resolved Date Sacroiliac pain 10/26/2020 11/19/2020 Closed nondisplaced fracture of distal phalanx of finger with routine healing 10/26/2020 11/19/2020 documented as of this encounter (statuses as of 01/24/2022) [facility]03-15-2021 History of Past illness Narrative* Problem Noted Date Resolved Date Sacroiliac pain 10/26/2020 11/19/2020 Closed nondisplaced fracture of distal phalanx of finger with routine healing 10/26/2020 11/19/2020 documented as of this encounter (statuses as of 01/28/2022) [address]15-2021 History of Past illness Narrative* Problem Noted Date Resolved Date Sacroiliac pain 10/26/2020 11/19/2020 Closed nondisplaced fracture of distal phalanx of finger with routine healing 10/26/2020 11/19/2020 documented as of this encounter (statuses as of 01/31/2022) [address]15-2021 History of Past illness Narrative* Problem Noted Date Resolved Date Sacroiliac pain 10/26/2020 11/19/2020 Closed nondisplaced fracture of distal phalanx of finger with routine healing 10/26/2020 11/19/2020 documented as of this encounter (statuses as of 02/01/2022) [facility]03[facility]-2021 History of Past illness Narrative* Problem Noted Date Resolved Date Sacroiliac pain 10/26/2020 11/19/2020 Closed nondisplaced fracture of distal phalanx of finger with routine healing 10/26/2020 11/19/2020 documented as of this encounter (statuses as of 02/21/2022) [facility]-2021 History of Past illness Narrative* Problem Noted Date Resolved Date Sacroiliac pain 10/26/2020 11/19/2020 Closed nondisplaced fracture of distal phalanx of finger with routine healing 10/26/2020 11/19/2020 documented as of this encounter (statuses as of 02/26/2022) [address]15-2021 History of Past illness Narrative* Problem Noted Date Resolved Date Sacroiliac pain 10/26/2020 11/19/2020 Closed nondisplaced fracture of distal phalanx of finger with routine healing 10/26/2020 11/19/2020 documented as of this encounter (statuses as of 03/01/2022) [address]15-2021 History of Past illness Narrative* Problem Noted Date Resolved Date Sacroiliac pain 10/26/2020 11/19/2020 Closed nondisplaced fracture of distal phalanx of finger with routine healing 10/26/2020 11/19/2020 documented as of this encounter (statuses as of 03/09/2022) [facility]03[facility]15-2021 History of Past illness Narrative* Problem Noted Date Resolved Date Sacroiliac pain 10/26/2020 11/19/2020 Closed nondisplaced fracture of distal phalanx of finger with routine healing 10/26/2020 11/19/2020 documented as of this encounter (statuses as of 03/15/2022) [facility]-2021 History of Past illness Narrative* Problem Noted Date Resolved Date Sacroiliac pain 10/26/2020 11/19/2020 Closed nondisplaced fracture of distal phalanx of finger with routine healing 10/26/2020 11/19/2020 documented as of this encounter (statuses as of 03/28/2022) [facility]-2021 History of Past illness Narrative* Problem Noted Date Resolved Date Sacroiliac pain 10/26/2020 11/19/2020 Closed nondisplaced fracture of distal phalanx of finger with routine healing 10/26/2020 11/19/2020 documented as of this encounter (statuses as of 03/30/2022) [facility]03[facility]-2021 History of Past illness Narrative* Problem Noted Date Resolved Date Sacroiliac pain 10/26/2020 11/19/2020 Closed nondisplaced fracture of distal phalanx of finger with routine healing 10/26/2020 11/19/2020 documented as of this encounter (statuses as of 03/31/2022) [facility]-2021 History of Past illness Narrative* Problem Noted Date Resolved Date Sacroiliac pain 10/26/2020 11/19/2020 Closed nondisplaced fracture of distal phalanx of finger with routine healing 10/26/2020 11/19/2020 documented as of this encounter (statuses as of 04/04/2022) [address]15-2021 History of Past illness Narrative* Problem Noted Date Resolved Date Sacroiliac pain 10/26/2020 11/19/2020 Closed nondisplaced fracture of distal phalanx of finger with routine healing 10/26/2020 11/19/2020 documented as of this encounter (statuses as of 04/08/2022) [address]15-2021 History of Past illness Narrative* Problem Noted Date Resolved Date Sacroiliac pain 10/26/2020 11/19/2020 Closed nondisplaced fracture of distal phalanx of finger with routine healing 10/26/2020 11/19/2020 documented as of this encounter (statuses as of 04/21/2022) [address]15-2021 History of Past illness Narrative* Problem Noted Date Resolved Date Sacroiliac pain 10/26/2020 11/19/2020 Closed nondisplaced fracture of distal phalanx of finger with routine healing 10/26/2020 11/19/2020 documented as of this encounter (statuses as of 04/22/2022) [address]15-2021 History of Past illness Narrative* Problem Noted Date Resolved Date Sacroiliac pain 10/26/2020 11/19/2020 Closed nondisplaced fracture of distal phalanx of finger with routine healing 10/26/2020 11/19/2020 documented as of this encounter (statuses as of 04/26/2022) [facility]03[facility]2021 History of Past illness Narrative* Problem Noted Date Resolved Date Sacroiliac pain 10/26/2020 11/19/2020 Closed nondisplaced fracture of distal phalanx of finger with routine healing 10/26/2020 11/19/2020 documented as of this encounter (statuses as of 04/27/2022) [address]15-2021 History of Past illness Narrative* Problem Noted Date Resolved Date Sacroiliac pain 10/26/2020 11/19/2020 Closed nondisplaced fracture of distal phalanx of finger with routine healing 10/26/2020 11/19/2020 documented as of this encounter (statuses as of 04/27/2022) [address]15-2021 History of Past illness Narrative* Problem Noted Date Resolved Date Sacroiliac pain 10/26/2020 11/19/2020 Closed nondisplaced fracture of distal phalanx of finger with routine healing 10/26/2020 11/19/2020 documented as of this encounter (statuses as of 04/28/2022) [address]15-2021 History of Past illness Narrative* Problem Noted Date Resolved Date Sacroiliac pain 10/26/2020 11/19/2020 Closed nondisplaced fracture of distal phalanx of finger with routine healing 10/26/2020 11/19/2020 documented as of this encounter (statuses as of 04/29/2022) [address]15-2021 History of Past illness Narrative* Problem Noted Date Resolved Date Sacroiliac pain 10/26/2020 11/19/2020 Closed nondisplaced fracture of distal phalanx of finger with routine healing 10/26/2020 11/19/2020 documented as of this encounter (statuses as of 04/29/2022) [address]15-2021 History of Past illness Narrative* Problem Noted Date Resolved Date Sacroiliac pain 10/26/2020 11/19/2020 Closed nondisplaced fracture of distal phalanx of finger with routine healing 10/26/2020 11/19/2020 documented as of this encounter (statuses as of 05/16/2022) [address]15-2021 History of Past illness Narrative* Problem Noted Date Resolved Date Sacroiliac pain 10/26/2020 11/19/2020 Closed nondisplaced fracture of distal phalanx of finger with routine healing 10/26/2020 11/19/2020 documented as of this encounter (statuses as of 05/19/2022) [address]15-2021 History of Past illness Narrative* Problem Noted Date Resolved Date Sacroiliac pain 10/26/2020 11/19/2020 Closed nondisplaced fracture of distal phalanx of finger with routine healing 10/26/2020 11/19/2020 documented as of this encounter (statuses as of 05/25/2022) [address]15-2021 History of Past illness Narrative* Problem Noted Date Resolved Date Sacroiliac pain 10/26/2020 11/19/2020 Closed nondisplaced fracture of distal phalanx of finger with routine healing 10/26/2020 11/19/2020 documented as of this encounter (statuses as of 05/29/2022) [facility]03[facility]-2021 History of Past illness Narrative* Problem Noted Date Resolved Date Sacroiliac pain 10/26/2020 11/19/2020 Closed nondisplaced fracture of distal phalanx of finger with routine healing 10/26/2020 11/19/2020 documented as of this encounter (statuses as of 06/02/2022) [address]15-2021 History of Past illness Narrative* Problem Noted Date Resolved Date Sacroiliac pain 10/26/2020 11/19/2020 Closed nondisplaced fracture of distal phalanx of finger with routine healing 10/26/2020 11/19/2020 documented as of this encounter (statuses as of 06/03/2022) [address]15-2021 History of Past illness Narrative* Problem Noted Date Resolved Date Sacroiliac pain 10/26/2020 11/19/2020 Closed nondisplaced fracture of distal phalanx of finger with routine healing 10/26/2020 11/19/2020 documented as of this encounter (statuses as of 06/06/2022) [facility]03[facility]-2021 History of Past illness Narrative* Problem Noted Date Resolved Date Sacroiliac pain 10/26/2020 11/19/2020 Closed nondisplaced fracture of distal phalanx of finger with routine healing 10/26/2020 11/19/2020 documented as of this encounter (statuses as of 06/09/2022) [facility]03[facility]-2021 History of Past illness Narrative* Problem Noted Date Resolved Date Sacroiliac pain 10/26/2020 11/19/2020 Closed nondisplaced fracture of distal phalanx of finger with routine healing 10/26/2020 11/19/2020 documented as of this encounter (statuses as of 06/27/2022) [address]15-2021 History of Past illness Narrative* Problem Noted Date Resolved Date Sacroiliac pain 10/26/2020 11/19/2020 Closed nondisplaced fracture of distal phalanx of finger with routine healing 10/26/2020 11/19/2020 documented as of this encounter (statuses as of 07/20/2022) [address]15-2021 History of Past illness Narrative* Problem Noted Date Resolved Date Sacroiliac pain 10/26/2020 11/19/2020 Closed nondisplaced fracture of distal phalanx of finger with routine healing 10/26/2020 11/19/2020 documented as of this encounter (statuses as of 07/22/2022) [address]15-2021 History of Past illness Narrative* Problem Noted Date Resolved Date Sacroiliac pain 10/26/2020 11/19/2020 Closed nondisplaced fracture of distal phalanx of finger with routine healing 10/26/2020 11/19/2020 documented as of this encounter (statuses as of 08/19/2022) [address]15-2021 History of Past illness Narrative* Problem Noted Date Resolved Date Sacroiliac pain 10/26/2020 11/19/2020 Closed nondisplaced fracture of distal phalanx of finger with routine healing 10/26/2020 11/19/2020 documented as of this encounter (statuses as of 08/19/2022) [address]15-2021 History of Past illness Narrative* Problem Noted Date Resolved Date Sacroiliac pain 10/26/2020 11/19/2020 Closed nondisplaced fracture of distal phalanx of finger with routine healing 10/26/2020 11/19/2020 documented as of this encounter (statuses as of 08/22/2022) [address]15-2021 History of Past illness Narrative* Problem Noted Date Resolved Date Sacroiliac pain 10/26/2020 11/19/2020 Closed nondisplaced fracture of distal phalanx of finger with routine healing 10/26/2020 11/19/2020 documented as of this encounter (statuses as of 08/22/2022) [address]15-2021 History of Past illness Narrative* Problem Noted Date Resolved Date Sacroiliac pain 10/26/2020 11/19/2020 Closed nondisplaced fracture of distal phalanx of finger with routine healing 10/26/2020 11/19/2020 documented as of this encounter (statuses as of 08/29/2022) [address]15-2021 History of Past illness Narrative* Problem Noted Date Resolved Date Sacroiliac pain 10/26/2020 11/19/2020 Closed nondisplaced fracture of distal phalanx of finger with routine healing 10/26/2020 11/19/2020 documented as of this encounter (statuses as of 09/07/2022) [facility]03-15-2021 History of Past illness Narrative* Problem Noted Date Resolved Date Sacroiliac pain 10/26/2020 11/19/2020 Closed nondisplaced fracture of distal phalanx of finger with routine healing 10/26/2020 11/19/2020 documented as of this encounter (statuses as of 09/09/2022) [facility]03[facility]-2021 History of Past illness Narrative* Problem Noted Date Resolved Date Sacroiliac pain 10/26/2020 11/19/2020 Closed nondisplaced fracture of distal phalanx of finger with routine healing 10/26/2020 11/19/2020 documented as of this encounter (statuses as of 09/12/2022) [facility]03[facility]-2021 History of Past illness Narrative* Problem Noted Date Resolved Date Sacroiliac pain 10/26/2020 11/19/2020 Closed nondisplaced fracture of distal phalanx of finger with routine healing 10/26/2020 11/19/2020 documented as of this encounter (statuses as of 09/16/2022) [facility]03[facility]-2021 History of Past illness Narrative* Problem Noted Date Resolved Date Sacroiliac pain 10/26/2020 11/19/2020 Closed nondisplaced fracture of distal phalanx of finger with routine healing 10/26/2020 11/19/2020 documented as of this encounter (statuses as of 09/20/2022) [address]15-2021 History of Past illness Narrative* Problem Noted Date Resolved Date Sacroiliac pain 10/26/2020 11/19/2020 Closed nondisplaced fracture of distal phalanx of finger with routine healing 10/26/2020 11/19/2020 documented as of this encounter (statuses as of 09/30/2022) [address]15-2021 History of Past illness Narrative* Problem Noted Date Resolved Date Sacroiliac pain 10/26/2020 11/19/2020 Closed nondisplaced fracture of distal phalanx of finger with routine healing 10/26/2020 11/19/2020 documented as of this encounter (statuses as of 10/03/2022) [facility]2021 History of Past illness Narrative* Problem Noted Date Resolved Date Sacroiliac pain 10/26/2020 11/19/2020 Closed nondisplaced fracture of distal phalanx of finger with routine healing 10/26/2020 11/19/2020 documented as of this encounter (statuses as of 10/04/2022) [facility]2021 History of Past illness Narrative* Problem Noted Date Resolved Date Sacroiliac pain 10/26/2020 11/19/2020 Closed nondisplaced fracture of distal phalanx of finger with routine healing 10/26/2020 11/19/2020 documented as of this encounter (statuses as of 10/25/2022) [facility]2021 History of Past illness Narrative* Problem Noted Date Resolved Date Sacroiliac pain 10/26/2020 11/19/2020 Closed nondisplaced fracture of distal phalanx of finger with routine healing 10/26/2020 11/19/2020 documented as of this encounter (statuses as of 10/25/2022) [facility]-2021 History of Past illness Narrative* Problem Noted Date Resolved Date Sacroiliac pain 10/26/2020 11/19/2020 Closed nondisplaced fracture of distal phalanx of finger with routine healing 10/26/2020 11/19/2020 documented as of this encounter (statuses as of 11/11/2022) [facility]2021 History of Past illness Narrative* Problem Noted Date Resolved Date Sacroiliac pain 10/26/2020 11/19/2020 Closed nondisplaced fracture of distal phalanx of finger with routine healing 10/26/2020 11/19/2020 documented as of this encounter (statuses as of 11/16/2022) [address]15-2021 History of Past illness Narrative* Problem Noted Date Resolved Date Sacroiliac pain 10/26/2020 11/19/2020 Closed nondisplaced fracture of distal phalanx of finger with routine healing 10/26/2020 11/19/2020 documented as of this encounter (statuses as of 11/21/2022) [address]15-2021 History of Past illness Narrative* Problem Noted Date Resolved Date Sacroiliac pain 10/26/2020 11/19/2020 Closed nondisplaced fracture of distal phalanx of finger with routine healing 10/26/2020 11/19/2020 documented as of this encounter (statuses as of 11/22/2022) [address]15-2021 History of Past illness Narrative* Problem Noted Date Resolved Date Sacroiliac pain 10/26/2020 11/19/2020 Closed nondisplaced fracture of distal phalanx of finger with routine healing 10/26/2020 11/19/2020 documented as of this encounter (statuses as of 11/24/2022) [address]15-2021 History of Past illness Narrative* Problem Noted Date Resolved Date Sacroiliac pain 10/26/2020 11/19/2020 Closed nondisplaced fracture of distal phalanx of finger with routine healing 10/26/2020 11/19/2020 documented as of this encounter (statuses as of 11/28/2022) [address]15-2021 History of Past illness Narrative* Problem Noted Date Resolved Date Sacroiliac pain 10/26/2020 11/19/2020 Closed nondisplaced fracture of distal phalanx of finger with routine healing 10/26/2020 11/19/2020 documented as of this encounter (statuses as of 12/02/2022) [address]15-2021 History of Past illness Narrative* Problem Noted Date Resolved Date Sacroiliac pain 10/26/2020 11/19/2020 Closed nondisplaced fracture of distal phalanx of finger with routine healing 10/26/2020 11/19/2020 documented as of this encounter (statuses as of 12/03/2022) [address]15-2021 History of Past illness Narrative* Problem Noted Date Resolved Date Sacroiliac pain 10/26/2020 11/19/2020 Closed nondisplaced fracture of distal phalanx of finger with routine healing 10/26/2020 11/19/2020 documented as of this encounter (statuses as of 12/12/2022) [facility]2021 History of Past illness Narrative* Problem Noted Date Resolved Date Sacroiliac pain 10/26/2020 11/19/2020 Closed nondisplaced fracture of distal phalanx of finger with routine healing 10/26/2020 11/19/2020 documented as of this encounter (statuses as of 12/12/2022) [facility]2021 History of Past illness Narrative* Problem Noted Date Resolved Date Sacroiliac pain 10/26/2020 11/19/2020 Closed nondisplaced fracture of distal phalanx of finger with routine healing 10/26/2020 11/19/2020 documented as of this encounter (statuses as of 12/19/2022) [facility]2021 History of Past illness Narrative* Problem Noted Date Resolved Date Sacroiliac pain 10/26/2020 11/19/2020 Closed nondisplaced fracture of distal phalanx of finger with routine healing 10/26/2020 11/19/2020 documented as of this encounter (statuses as of 01/20/2023) [facility]2021 History of Past illness Narrative* Problem Noted Date Resolved Date Sacroiliac pain 10/26/2020 11/19/2020 Closed nondisplaced fracture of distal phalanx of finger with routine healing 10/26/2020 11/19/2020 documented as of this encounter (statuses as of 01/12/2023) [address]15-2021 History of Past illness Narrative* Problem Noted Date Resolved Date Sacroiliac pain 10/26/2020 11/19/2020 Closed nondisplaced fracture of distal phalanx of finger with routine healing 10/26/2020 11/19/2020 documented as of this encounter (statuses as of 01/12/2023) [address]15-2021 History of Past illness Narrative* Problem Noted Date Resolved Date Sacroiliac pain 10/26/2020 11/19/2020 Closed nondisplaced fracture of distal phalanx of finger with routine healing 10/26/2020 11/19/2020 documented as of this encounter (statuses as of 01/23/2023) [address]15-2021 History of Past illness Narrative* Problem Noted Date Resolved Date Sacroiliac pain 10/26/2020 11/19/2020 Closed nondisplaced fracture of distal phalanx of finger with routine healing 10/26/2020 11/19/2020 documented as of this encounter (statuses as of 01/26/2023) [address]15-2021 History of Past illness Narrative* Problem Noted Date Resolved Date Sacroiliac pain 10/26/2020 11/19/2020 Closed nondisplaced fracture of distal phalanx of finger with routine healing 10/26/2020 11/19/2020 documented as of this encounter (statuses as of 01/27/2023) [address]15-2021 History of Past illness Narrative* Problem Noted Date Resolved Date Sacroiliac pain 10/26/2020 11/19/2020 Closed nondisplaced fracture of distal phalanx of finger with routine healing 10/26/2020 11/19/2020 documented as of this encounter (statuses as of 02/06/2023) [address]15-2021 History of Past illness Narrative* Problem Noted Date Resolved Date Sacroiliac pain 10/26/2020 11/19/2020 Closed nondisplaced fracture of distal phalanx of finger with routine healing 10/26/2020 11/19/2020 documented as of this encounter (statuses as of 02/09/2023) [address]15-2021 History of Past illness Narrative* Problem Noted Date Resolved Date Sacroiliac pain 10/26/2020 11/19/2020 Closed nondisplaced fracture of distal phalanx of finger with routine healing 10/26/2020 11/19/2020 documented as of this encounter (statuses as of 02/09/2023) [address]15-2021 History of Past illness Narrative* Problem Noted Date Diagnosed Date Resolved Date Sacroiliac pain 10/26/2020 11/19/2020 Closed nondisplaced fracture of distal phalanx of finger with routine healing 10/26/2020 0 11/19/2020 documented as of this encounter (statuses as of 02/22/2023) [address]15-2021 History of Past illness Narrative* Problem Noted Date Diagnosed Date Resolved Date Sacroiliac pain 10/26/2020 11/19/2020 Closed nondisplaced fracture of distal phalanx of finger with routine healing 10/26/2020 0 11/19/2020 documented as of this encounter (statuses as of 02/27/2023) [address]15-2021 History of Past illness Narrative* Problem Noted Date Diagnosed Date Resolved Date Sacroiliac pain 10/26/2020 11/19/2020 Closed nondisplaced fracture of distal phalanx of finger with routine healing 10/26/2020 0 11/19/2020 documented as of this encounter (statuses as of 03/16/2023) [address]15-2021 History of Past illness Narrative* Problem Noted Date Diagnosed Date Resolved Date Sacroiliac pain 10/26/2020 11/19/2020 Closed nondisplaced fracture of distal phalanx of finger with routine healing 10/26/2020 0 11/19/2020 documented as of this encounter (statuses as of 03/18/2023) [address]15-2021 History of Past illness Narrative* Problem Noted Date Diagnosed Date Resolved Date Sacroiliac pain 10/26/2020 11/19/2020 Closed nondisplaced fracture of distal phalanx of finger with routine healing 10/26/2020 0 11/19/2020 documented as of this encounter (statuses as of 03/21/2023) [address]15-2021 History of Past illness Narrative* Problem Noted Date Diagnosed Date Resolved Date Sacroiliac pain 10/26/2020 11/19/2020 Closed nondisplaced fracture of distal phalanx of finger with routine healing 10/26/2020 0 11/19/2020 documented as of this encounter (statuses as of 03/22/2023) [address]15-2021 History of Past illness Narrative* Problem Noted Date Diagnosed Date Resolved Date Sacroiliac pain 10/26/2020 11/19/2020 Closed nondisplaced fracture of distal phalanx of finger with routine healing 10/26/2020 0 11/19/2020 documented as of this encounter (statuses as of 03/23/2023) [address]15-2021 History of Past illness Narrative* Problem Noted Date Diagnosed Date Resolved Date Sacroiliac pain 10/26/2020 11/19/2020 Closed nondisplaced fracture of distal phalanx of finger with routine healing 10/26/2020 0 11/19/2020 documented as of this encounter (statuses as of 03/23/2023) [address]15-2021 History of Past illness Narrative* Problem Noted Date Diagnosed Date Resolved Date Sacroiliac pain 10/26/2020 11/19/2020 Closed nondisplaced fracture of distal phalanx of finger with routine healing 10/26/2020 0 11/19/2020 documented as of this encounter (statuses as of 03/25/2023) [address]15-2021 History of Past illness Narrative* Problem Noted Date Diagnosed Date Resolved Date Sacroiliac pain 10/26/2020 11/19/2020 Closed nondisplaced fracture of distal phalanx of finger with routine healing 10/26/2020 0 11/19/2020 documented as of this encounter (statuses as of 03/27/2023) [address]15-2021 History of Past illness Narrative* Problem Noted Date Diagnosed Date Resolved Date Sacroiliac pain 10/26/2020 11/19/2020 Closed nondisplaced fracture of distal phalanx of finger with routine healing 10/26/2020 0 11/19/2020 documented as of this encounter (statuses as of 03/30/2023) [address]15-2021 History of Past illness Narrative* Problem Noted Date Diagnosed Date Resolved Date Sacroiliac pain 10/26/2020 11/19/2020 Closed nondisplaced fracture of distal phalanx of finger with routine healing 10/26/2020 0 11/19/2020 documented as of this encounter (statuses as of 04/03/2023) [address]15-2021 History of Past illness Narrative* Problem Noted Date Diagnosed Date Resolved Date Sacroiliac pain 10/26/2020 11/19/2020 Closed nondisplaced fracture of distal phalanx of finger with routine healing 10/26/2020 0 11/19/2020 documented as of this encounter (statuses as of 04/07/2023) [address]15-2021 History of Past illness Narrative* Problem Noted Date Diagnosed Date Resolved Date Sacroiliac pain 10/26/2020 11/19/2020 Closed nondisplaced fracture of distal phalanx of finger with routine healing 10/26/2020 0 11/19/2020 documented as of this encounter (statuses as of 04/10/2023) [address]15-2021 History of Past illness Narrative* Problem Noted Date Diagnosed Date Resolved Date Sacroiliac pain 10/26/2020 11/19/2020 Closed nondisplaced fracture of distal phalanx of finger with routine healing 10/26/2020 0 11/19/2020 documented as of this encounter (statuses as of 04/19/2023) [address]15-2021 History of Past illness Narrative* Problem Noted Date Diagnosed Date Resolved Date Sacroiliac pain 10/26/2020 11/19/2020 Closed nondisplaced fracture of distal phalanx of finger with routine healing 10/26/2020 0 11/19/2020 documented as of this encounter (statuses as of 05/23/2023) [address]15-2021 History of Past illness Narrative* Problem Noted Date Diagnosed Date Resolved Date Sacroiliac pain 10/26/2020 11/19/2020 Closed nondisplaced fracture of distal phalanx of finger with routine healing 10/26/2020 0 11/19/2020 documented as of this encounter (statuses as of 05/23/2023) [address]15-2021 History of Past illness Narrative* Problem Noted Date Diagnosed Date Resolved Date Sacroiliac pain 10/26/2020 11/19/2020 Closed nondisplaced fracture of distal phalanx of finger with routine healing 10/26/2020 0 11/19/2020 documented as of this encounter (statuses as of 05/29/2023) [address]15-2021 History of Past illness Narrative* Problem Noted Date Diagnosed Date Resolved Date Sacroiliac pain 10/26/2020 11/19/2020 Closed nondisplaced fracture of distal phalanx of finger with routine healing 10/26/2020 0 11/19/2020 documented as of this encounter (statuses as of 05/30/2023) [address]15-2021 History of Past illness Narrative* Problem Noted Date Diagnosed Date Resolved Date Sacroiliac pain 10/26/2020 11/19/2020 Closed nondisplaced fracture of distal phalanx of finger with routine healing 10/26/2020 0 11/19/2020 documented as of this encounter (statuses as of 06/05/2023) [address]15-2021 History of Past illness Narrative* Problem Noted Date Diagnosed Date Resolved Date Sacroiliac pain 10/26/2020 11/19/2020 Closed nondisplaced fracture of distal phalanx of finger with routine healing 10/26/2020 0 11/19/2020 documented as of this encounter (statuses as of 06/19/2023) [address]15-2021 History of Past illness Narrative* Problem Noted Date Diagnosed Date Resolved Date Sacroiliac pain 10/26/2020 11/19/2020 Closed nondisplaced fracture of distal phalanx of finger with routine healing 10/26/2020 0 11/19/2020 documented as of this encounter (statuses as of 06/19/2023) [address]15-2021 History of Past illness Narrative* Problem Noted Date Diagnosed Date Resolved Date Sacroiliac pain 10/26/2020 11/19/2020 Closed nondisplaced fracture of distal phalanx of finger with routine healing 10/26/2020 0 11/19/2020 documented as of this encounter (statuses as of 06/19/2023) [address]15-2021 History of Past illness Narrative* Problem Noted Date Diagnosed Date Resolved Date Sacroiliac pain 10/26/2020 11/19/2020 Closed nondisplaced fracture of distal phalanx of finger with routine healing 10/26/2020 0 11/19/2020 documented as of this encounter (statuses as of 07/03/2023) [address]15-2021 History of Past illness Narrative* Problem Noted Date Diagnosed Date Resolved Date Sacroiliac pain 10/26/2020 11/19/2020 Closed nondisplaced fracture of distal phalanx of finger with routine healing 10/26/2020 0 11/19/2020 documented as of this encounter (statuses as of 07/05/2023) [facility]-15-2021 History of Past illness Narrative* Problem Noted Date Diagnosed Date Resolved Date Sacroiliac pain 10/26/2020 11/19/2020 Closed nondisplaced fracture of distal phalanx of finger with routine healing 10/26/2020 0 11/19/2020 documented as of this encounter (statuses as of 07/20/2023) [facility]-2021 History of Past illness Narrative* Problem Noted Date Diagnosed Date Resolved Date Sacroiliac pain 10/26/2020 11/19/2020 Closed nondisplaced fracture of distal phalanx of finger with routine healing 10/26/2020 0 11/19/2020 documented as of this encounter (statuses as of 07/20/2023) [facility]-2021 History of Past illness Narrative* Problem Noted Date Diagnosed Date Resolved Date Sacroiliac pain 10/26/2020 11/19/2020 Closed nondisplaced fracture of distal phalanx of finger with routine healing 10/26/2020 0 11/19/2020 documented as of this encounter (statuses as of 08/27/2023) [facility]-2021 History of Past illness Narrative* Problem Noted Date Diagnosed Date Resolved Date Sacroiliac pain 10/26/2020 11/19/2020 Closed nondisplaced fracture of distal phalanx of finger with routine healing 10/26/2020 0 11/19/2020 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 04/10/2019 09/01/2023 Last Assessment & Plan: Assessment: doesn't wear CPAP documented as of this encounter (statuses as of 09/18/2023) [facility]03-15-2021 History of Past illness Narrative* Problem Noted Date Diagnosed Date Resolved Date Sacroiliac pain 10/26/2020 11/19/2020 Closed nondisplaced fracture of distal phalanx of finger with routine healing 10/26/2020 0 11/19/2020 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 04/10/2019 09/01/2023 Last Assessment & Plan: Assessment: doesn't wear CPAP documented as of this encounter (statuses as of 10/13/2023) [facility]2021 History of Past illness Narrative* Problem Noted Date Diagnosed Date Resolved Date Sacroiliac pain 10/26/2020 11/19/2020 Closed nondisplaced fracture of distal phalanx of finger with routine healing 10/26/2020 0 11/19/2020 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 04/10/2019 09/01/2023 Last Assessment & Plan: Assessment: doesn't wear CPAP documented as of this encounter (statuses as of 10/13/2023) [facility]2021 History of Past illness Narrative* Problem Noted Date Diagnosed Date Resolved Date Sacroiliac pain 10/26/2020 11/19/2020 Closed nondisplaced fracture of distal phalanx of finger with routine healing 10/26/2020 0 11/19/2020 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 04/10/2019 09/01/2023 Last Assessment & Plan: Assessment: doesn't wear CPAP documented as of this encounter (statuses as of 10/23/2023) [facility]-2021 History of Past illness Narrative* Problem Noted Date Diagnosed Date Resolved Date Sacroiliac pain 10/26/2020 11/19/2020 Closed nondisplaced fracture of distal phalanx of finger with routine healing 10/26/2020 0 11/19/2020 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 04/10/2019 09/01/2023 Last Assessment & Plan: Assessment: doesn't wear CPAP documented as of this encounter (statuses as of 10/30/2023) [facility]-2021 History of Past illness Narrative* Problem Noted Date Diagnosed Date Resolved Date Sacroiliac pain 10/26/2020 11/19/2020 Closed nondisplaced fracture of distal phalanx of finger with routine healing 10/26/2020 0 11/19/2020 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 04/10/2019 09/01/2023 Last Assessment & Plan: Assessment: doesn't wear CPAP documented as of this encounter (statuses as of 11/07/2023) [facility]-2021 History of Past illness Narrative* Problem Noted Date Diagnosed Date Resolved Date Sacroiliac pain 10/26/2020 11/19/2020 Closed nondisplaced fracture of distal phalanx of finger with routine healing 10/26/2020 0 11/19/2020 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 04/10/2019 09/01/2023 Last Assessment & Plan: Assessment: doesn't wear CPAP documented as of this encounter (statuses as of 11/16/2023) [facility]-2021 History of Past illness Narrative* Problem Noted Date Diagnosed Date Resolved Date Sacroiliac pain 10/26/2020 11/19/2020 Closed nondisplaced fracture of distal phalanx of finger with routine healing 10/26/2020 0 11/19/2020 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 04/10/2019 09/01/2023 Last Assessment & Plan: Assessment: doesn't wear CPAP documented as of this encounter (statuses as of 11/24/2023) [facility]12-09-2020 History of Present illness Narrative* Hedy [...] 22, 2020 1:50 PM [facility] Diagnosis Coronary artery disease due to [...] complication, without long-term current use of insulin ([facility]) [facility] Diagnosis Degeneration of lumbar or lumbosacral intervertebral disc- Primary Somatic dysfunction of lumbar region Nonallopathic lesion of lumbar region, not elsewhere classified [facility]* Diagnosis Restless legs- Primary Restless legs syndrome (RLS) Iron deficiency anemia, unspecified iron deficiency anemia type MAURICE (obstructive sleep apnea) Obstructive sleep apnea (adult) (pediatric) RLS (restless legs syndrome) Restless legs syndrome (RLS) [facility]* Diagnosis Diarrhea, unspecified type- Primary Dysphagia, unspecified type [facility] Diagnosis Right hip pain- Primary Pain in joint, pelvic region and thigh Primary osteoarthritis of right hip Primary localized osteoarthrosis, pelvic region and thigh Status post total bilateral knee replacement [facility] Diagnosis Status post total bilateral knee replacement [facility] Diagnosis Type 2 diabetes mellitus, without long-term current use of insulin (HCC) [facility] Diagnosis Hypothyroidism, unspecified type- Primary Mixed hyperlipidemia [facility]* Diagnosis Fallen arches Flat foot documented in this encounter [facility] note* Diagnosis Class 3 severe obesity without serious comorbidity with body mass index (BMI) of 45.0 to 49.9 in adult, unspecified obesity type (HCC)- Primary Weight loss counseling, encounter for Dietary surveillance and counseling Gastroesophageal reflux disease with esophagitis, unspecified whether hemorrhage Type 2 diabetes mellitus with other specified complication, without long-term current use of insulin ([facility]) Dietary counseling Dietary surveillance and counseling documented in this encounter [facility] note* Diagnosis Class 3 severe obesity without serious comorbidity with body mass index (BMI) of 45.0 to 49.9 in adult, unspecified obesity type (HCC)- Primary Weight loss counseling, encounter for Dietary surveillance and counseling Gastroesophageal reflux disease with esophagitis, unspecified whether hemorrhage Type 2 diabetes mellitus with other specified complication, without long-term current use of insulin ([facility]) Dietary counseling Dietary surveillance and counseling Vaginal prolapse Unspecified prolapse of vaginal garrett History of hysterectomy 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 Unspecified prolapse of vaginal garrett Cystocele, midline Rectocele Preoperative examination Preoperative examination, unspecified Vaginal atrophy Postmenopausal atrophic vaginitis documented in this encounter [facility] note* Diagnosis Pre-op chest exam- Primary Pre-operative respiratory examination Vaginal prolapse Unspecified prolapse of vaginal garrett History of hysterectomy 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 Unspecified prolapse of vaginal garrett Cystocele, midline Rectocele Preoperative examination Preoperative examination, unspecified Vaginal atrophy Postmenopausal atrophic vaginitis documented in this encounter [facility] note* Diagnosis Preoperative examination- Primary Preoperative examination, [...] Postmenopausal atrophic vaginitis documented in this encounter [facility] note* Diagnosis Onset Date Resolution Status Atherosclerotic heart diseas e of [place] coronary artery without angina pectoris acute Rapid palpitations acute Essential hypertension chron ic Hyperlipidemia chronic Encounter for pre-operative cardiovascular clearance acute Essential hypertension chron ic Hyperlipidemia chronic Left bundle branch block (LBBB) chronic History of coronary artery stent placement March 02, 2021 resolved [facility] Work Phone: Evaluation note* Diagnosis Pre-operative examination- Primary Preoperative examination, unspecified Vaginal prolapse Unspecified prolapse of vaginal garrett Anxiety and depression Dysthymic disorder Chronic intractable headache, unspecified headache type Chronic kidney disease, unspecified CKD stage Class 3 severe obesity due to excess calories with serious comorbidity and body mass index (BMI) of 40.0 to 44.9 in adult (HCC) 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 (HCC) Essential hypertension, [...] complication, without long-term current use of insulin ([facility]) 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 Spinal stenosis, lumbar region, with neurogenic claudication Vaginal prolapse Unspecified prolapse of vaginal garrett History of hysterectomy 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 Unspecified prolapse of vaginal garrett Cystocele, midline Rectocele Preoperative examination Preoperative examination, unspecified Vaginal atrophy Postmenopausal atrophic vaginitis [facility] Diagnosis Educational circumstances- Primary Educational circumstance Vaginal prolapse Unspecified prolapse of vaginal garrett History of hysterectomy 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 Unspecified prolapse of vaginal garrett Cystocele, midline Rectocele Preoperative examination Preoperative examination, unspecified Vaginal atrophy Postmenopausal atrophic vaginitis [facility] Diagnosis Hypothyroidism, unspecified type Vaginal prolapse Unspecified prolapse of vaginal garrett History of hysterectomy 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 Unspecified prolapse of vaginal garrett Cystocele, midline Rectocele Preoperative examination Preoperative examination, unspecified Vaginal atrophy Postmenopausal atrophic vaginitis [facility]* Diagnosis Class 3 severe obesity without serious comorbidity with body mass index (BMI) of 45.0 to 49.9 in adult, unspecified obesity type (HCC)- Primary Gastroesophageal reflux disease with esophagitis, unspecified whether hemorrhage Type 2 diabetes mellitus with other specified complication, without long-term current use of insulin ([facility]) Dietary counseling Dietary surveillance and counseling RLS (restless legs syndrome)- Primary Restless legs syndrome (RLS) Iron deficiency anemia, unspecified iron deficiency anemia type MAURICE (obstructive sleep apnea) Obstructive sleep apnea (adult) (pediatric) [facility]* Diagnosis RLS (restless legs syndrome)- Primary Restless legs syndrome (RLS) Iron deficiency anemia, unspecified iron deficiency anemia type MAURICE (obstructive sleep apnea) Obstructive sleep apnea (adult) (pediatric) [facility]* Diagnosis Vaginal vault prolapse- Primary Unspecified prolapse of vaginal garrett Encounter for urine test Laboratory examination, unspecified Rectocele Cystocele, midline Preoperative examination Preoperative examination, unspecified Mixed stress and urge incontinence Urinary urgency Urgency of urination Urinary frequency [facility]* Diagnosis Post-operative state- Primary Other postprocedural status Vaginal discharge Leukorrhea, not specified as infective [facility]* Diagnosis Class 3 severe obesity without serious comorbidity with body mass index (BMI) of 45.0 to 49.9 in adult, unspecified obesity type (HCC)- Primary Gastroesophageal reflux disease with esophagitis, unspecified whether hemorrhage Type 2 diabetes mellitus with other specified complication, without long-term current use of insulin ([facility]) Dietary counseling Dietary surveillance and counseling [facility]* Diagnosis Onset Date Resolution Status Encounter for pre-operative cardiovascular clearance acute Essential hypertension chron ic Hyperlipidemia chronic Left bundle branch block (LBBB) chronic History of coronary artery stent placement March 02, 2021 resolved [facility] Work Phone: Evaluation note* Diagnosis Essential hypertension, benign- Primary Type 2 diabetes mellitus with other specified complication, without long-term current use of insulin ([facility]) Acute non-recurrent frontal sinusitis Hypothyroidism, unspecified type documented in this encounter [facility] note* Diagnosis RLS (restless legs syndrome) Restless legs syndrome (RLS) [facility]* Diagnosis Class 3 severe obesity without serious comorbidity with body mass index (BMI) of 45.0 to 49.9 in adult, unspecified obesity type (HCC)- Primary Gastroesophageal reflux disease with esophagitis, unspecified whether hemorrhage Type 2 diabetes mellitus with other specified complication, without long-term current use of insulin ([facility]) Dietary counseling Dietary surveillance and counseling documented in this encounter [facility] note* Diagnosis Post-operative state- Primary Other postprocedural status Urinary urgency Urgency of urination Urinary frequency [facility] Diagnosis RLS (restless legs syndrome)- Primary Restless legs syndrome (RLS) Iron deficiency anemia, unspecified iron deficiency anemia type MAURICE (obstructive sleep apnea) Obstructive sleep apnea (adult) (pediatric) [facility] Class 3 severe obesity without serious comorbidity with body mass index (BMI) of 45.0 to 49.9 in adult, unspecified obesity type (HCC)- Primary Gastroesophageal reflux disease with esophagitis, unspecified whether hemorrhage Type 2 diabetes mellitus with other specified complication, without long-term current use of insulin ([facility]) Dietary counseling Dietary surveillance and counseling Weight loss counseling, encounter for Dietary surveillance and counseling [facility] Diagnosis Hypothyroidism, unspecified type [facility]* Diagnosis Medicare annual wellness visit, subsequent- Primary Routine general medical examination at a health care facility Hypothyroidism, unspecified type Essential hypertension, benign Type 2 diabetes mellitus with other specified complication, without long-term current use of insulin (HCC) Mixed hyperlipidemia 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 (HCC) RLS (restless legs syndrome)- Primary Restless legs syndrome (RLS) MAURICE (obstructive sleep apnea) Obstructive sleep apnea (adult) (pediatric) [facility]* Diagnosis Encounter for screening mammogram for malignant neoplasm of breast- Primary Other screening mammogram RLS (restless legs syndrome)- Primary Restless legs syndrome (RLS) MAURICE (obstructive sleep apnea) Obstructive sleep apnea (adult) (pediatric) [facility]* Diagnosis Primary osteoarthritis of right hip- [...] obesity type (HCC) [facility] Diagnosis Class 3 severe obesity without serious comorbidity with body mass index (BMI) of 45.0 to 49.9 in adult, unspecified obesity type (HCC)- Primary Gastroesophageal reflux disease with esophagitis, unspecified whether hemorrhage Type 2 diabetes mellitus with other specified complication, without long-term current use of insulin ([facility]) Dietary counseling Dietary surveillance and counseling Weight loss counseling, encounter for Dietary surveillance and counseling [facility] Diagnosis Class 3 severe obesity without serious comorbidity with body mass index (BMI) of 45.0 to 49.9 in adult, unspecified obesity type (HCC)- Primary Gastroesophageal reflux disease with esophagitis, unspecified whether hemorrhage Type 2 diabetes mellitus with other specified complication, without long-term current use of insulin ([facility]) Dietary counseling Dietary surveillance and counseling [facility] Diagnosis Open wound of toe, initial encounter- Primary Class 3 severe obesity without serious comorbidity with body mass index (BMI) of 45.0 to 49.9 in adult, unspecified obesity type (HCC) [facility]* Diagnosis Primary osteoarthritis of right hip- Primary Primary localized osteoarthrosis, pelvic region and thigh Primary osteoarthritis of right hip Primary localized osteoarthrosis, pelvic region and thigh [facility] Diagnosis Spinal stenosis of lumbar region with neurogenic claudication- Primary Spinal stenosis, lumbar region, with neurogenic claudication Chronic low back pain, unspecified back pain laterality, unspecified whether sciatica present Primary osteoarthritis of right hip Primary localized osteoarthrosis, pelvic region and thigh [facility] Diagnosis Primary osteoarthritis of right hip- Primary Primary localized osteoarthrosis, pelvic region and thigh Chronic pain of right hip Primary osteoarthritis of right hip Primary localized osteoarthrosis, pelvic region and thigh [facility] Diagnosis Impaired fasting glucose- Primary Primary osteoarthritis of right hip Primary localized osteoarthrosis, pelvic region and thigh [facility] Diagnosis Pre-op evaluation- Primary Preoperative examination, unspecified RLS (restless legs syndrome) Restless legs syndrome (RLS) Fibromyalgia Mylagia and myositis, unspecified Essential hypertension, benign Mixed hyperlipidemia 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 ([facility]) LBBB (left bundle branch block) Other left bundle branch block 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 Obstructive sleep apnea (adult) (pediatric) Other irritable bowel syndrome Anxiety and depression Dysthymic disorder Class 3 severe obesity due to excess calories with serious comorbidity and body mass index (BMI) of 40.0 to 44.9 in adult ([facility]) Urinary frequency Primary osteoarthritis of right hip Primary localized osteoarthrosis, pelvic region and thigh [facility] Diagnosis Primary osteoarthritis of right hip- Primary Primary localized osteoarthrosis, pelvic region and thigh [facility] Diagnosis CKD (chronic kidney disease) stage 1, GFR 90 ml/min or greater- Primary Chronic kidney disease, Stage I [facility] Diagnosis Primary osteoarthritis of right hip- Primary Primary localized osteoarthrosis, pelvic region and thigh Primary osteoarthritis of left hip Primary localized osteoarthrosis, pelvic region and thigh Status post total replacement of right hip [facility] Diagnosis History of right hip replacement- Primary [facility] Diagnosis Class 3 severe obesity without serious comorbidity with body mass index (BMI) of 45.0 to 49.9 in adult, unspecified obesity type ([facility])- Primary Gastroesophageal reflux disease with esophagitis, unspecified whether hemorrhage Type 2 diabetes mellitus with other specified complication, without long-term current use of insulin ([facility]) Dietary counseling Dietary surveillance and counseling [facility] Diagnosis Primary osteoarthritis of right hip- Primary Primary localized osteoarthrosis, pelvic region and thigh History of right hip replacement [facility] Diagnosis History of right hip replacement- Primary History of total bilateral knee replacement [facility] Diagnosis Encounter for screening mammogram for malignant neoplasm of breast Other screening mammogram [facility] Diagnosis Primary osteoarthritis of right hip Primary localized osteoarthrosis, pelvic region and thigh Status post total replacement of right hip [facility] Diagnosis Primary osteoarthritis of left hip Primary localized osteoarthrosis, pelvic region and thigh Status post total hip replacement, right [facility] Diagnosis Primary osteoarthritis of right hip Primary localized osteoarthrosis, pelvic region and thigh documented in this encounter [facility] note* Diagnosis Class 3 severe obesity without serious comorbidity with body mass index (BMI) of 45.0 to 49.9 in adult, unspecified obesity type (HCC)- Primary Gastroesophageal reflux disease with esophagitis, unspecified whether hemorrhage Type 2 diabetes mellitus with other specified complication, without long-term current use of insulin ([facility]) Dietary counseling Dietary surveillance and counseling Weight loss counseling, encounter for Dietary surveillance and counseling documented in this encounter [facility] note* Diagnosis Essential hypertension, benign- Primary 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 (HCC) Acute non-recurrent sinusitis, unspecified location Hypothyroidism, unspecified type Type 2 diabetes mellitus without complication, without long-term current use of insulin ([facility]) documented in this encounter [facility] note* Diagnosis Class 3 severe obesity without serious comorbidity with body mass index (BMI) of 45.0 to 49.9 in adult, unspecified obesity type (HCC)- Primary Gastroesophageal reflux disease with esophagitis, unspecified whether hemorrhage Type 2 diabetes mellitus with other specified complication, without long-term current use of insulin ([facility]) Dietary counseling Dietary surveillance and counseling Weight loss counseling, encounter for Dietary surveillance and counseling documented in this encounter [facility] note* Diagnosis Type 2 diabetes mellitus without complication, without long-term current use of insulin (HCC)- Primary [facility] Diagnosis Type 2 diabetes mellitus with other specified complication, without long-term current use of insulin (HCC)- Primary [facility]* Diagnosis Class 3 severe obesity without serious comorbidity with body mass index (BMI) of 45.0 to 49.9 in adult, unspecified obesity type (HCC)- Primary Gastroesophageal reflux disease with esophagitis, unspecified whether hemorrhage Type 2 diabetes mellitus with other specified complication, without long-term current use of insulin ([facility]) Dietary counseling Dietary surveillance and counseling Weight loss counseling, encounter for Dietary surveillance and counseling documented in this encounter [facility] note* Diagnosis Hypothyroidism, unspecified type documented in this encounter [facility] note* Diagnosis RLS (restless legs syndrome)- Primary Restless legs syndrome (RLS) Iron deficiency Iron deficiency anemia, unspecified Vitamin D deficiency Unspecified vitamin D deficiency MAURICE (obstructive sleep apnea) Obstructive sleep apnea (adult) (pediatric) Class 3 severe obesity with body mass index (BMI) of 40.0 to 44.9 in adult, unspecified obesity type, unspecified whether serious comorbidity present (HCC) documented in this encounter [facility] note* Diagnosis Type 2 diabetes mellitus, without long-term current use of insulin (HCC) Mixed hyperlipidemia documented in this encounter [facility] note* Diagnosis Type 2 diabetes mellitus without complication, without long-term current use of insulin (HCC)- Primary Mixed hyperlipidemia Essential hypertension, benign Hypothyroidism, unspecified type Intertrigo Other specified erythematous condition Encounter for screening mammogram for malignant neoplasm of breast Other screening mammogram documented in this encounter [facility] note* Diagnosis Type 2 diabetes mellitus without complication, without long-term current use of insulin (HCC) documented in this encounter [facility] note* Diagnosis Encounter for screening mammogram for malignant neoplasm of breast Other screening mammogram documented in this encounter [facility] note* Diagnosis Pre-operative examination- Primary Preoperative examination, [...] unspecified CKD stage 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 ([facility]) Pre-operative examination- Primary Preoperative examination, unspecified Vaginal prolapse Unspecified prolapse of vaginal garrett Anxiety and depression Dysthymic disorder Chronic intractable headache, unspecified headache type Chronic kidney disease, unspecified CKD stage Class 3 severe obesity due to excess calories with serious comorbidity and body mass index (BMI) of 40.0 to 44.9 in adult ([facility]) 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 (HCC) Essential hypertension, [...] complication, without long-term current use of insulin ([facility]) 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 Spinal stenosis, lumbar region, with neurogenic claudication Pre-op evaluation- Primary Preoperative examination, unspecified RLS (restless legs syndrome) Restless legs syndrome (RLS) Fibromyalgia Mylagia and myositis, unspecified Essential hypertension, benign Mixed hyperlipidemia 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 ([facility]) LBBB (left bundle branch block) Other left [...] to 49.9 in adult, unspecified obesity type ([facility])- Primary Gastroesophageal reflux disease with esophagitis, unspecified whether hemorrhage Type 2 diabetes mellitus with other specified complication, without long-term current use of insulin ([facility]) Dietary counseling Dietary surveillance and counseling documented [...] unspecified CKD stage 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 (HCC) Pre-operative examination- Primary Preoperative examination, unspecified Vaginal prolapse Unspecified prolapse of vaginal garrett Anxiety and depression Dysthymic disorder Chronic intractable headache, unspecified headache type Chronic kidney disease, unspecified CKD stage Class 3 severe obesity due to excess calories with serious comorbidity and body mass index (BMI) of 40.0 to 44.9 in adult (HCC) 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 (HCC) Essential hypertension, [...] benign Mixed hyperlipidemia 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 (HCC) LBBB (left [...] of insulin (HCC) [facility] Diagnosis Pre-operative examination- Primary Preoperative [...] unspecified CKD stage 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 (HCC) Low back [...] (BMI) of 40.0 to 44.9 in adult ([facility]) 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 (HCC) Essential hypertension, [...] benign Mixed hyperlipidemia 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 (HCC) LBBB (left bundle branch block) Other left bundle branch block 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 Obstructive sleep apnea (adult) (pediatric) Other irritable bowel syndrome Anxiety and depression Dysthymic disorder Class 3 severe obesity due to excess calories with serious comorbidity and body mass index (BMI) of 40.0 to 44.9 in adult ([facility]) Urinary frequency [facility] Diagnosis Pre-operative examination- Primary Preoperative [...] unspecified CKD stage 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 (HCC) Pre-operative examination- Primary Preoperative examination, unspecified Vaginal prolapse Unspecified prolapse of vaginal garrett Anxiety and depression Dysthymic disorder Chronic intractable headache, unspecified headache type Chronic kidney disease, unspecified CKD stage Class 3 severe obesity due to excess calories with serious comorbidity and body mass index (BMI) of 40.0 to 44.9 in adult (HCC) 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 (HCC) Essential hypertension, [...] benign Mixed hyperlipidemia 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 ([facility]) LBBB (left bundle branch block) Other left bundle branch block 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 Obstructive sleep apnea (adult) (pediatric) Other irritable bowel syndrome Anxiety and depression Dysthymic disorder Class 3 severe obesity due to excess calories with serious comorbidity and body mass index (BMI) of 40.0 to 44.9 in adult ([facility]) Urinary frequency [facility] Diagnosis Pre-operative examination- Primary Preoperative [...] complication, without long-term current use of insulin ([facility]) Iron deficiency anemia, unspecified iron deficiency anemia type Anxiety and depression Dysthymic disorder Chronic back pain, unspecified back location, unspecified back pain laterality Class 3 severe obesity without serious comorbidity with body mass index (BMI) of 45.0 to 49.9 in adult, unspecified obesity type (HCC) Chronic kidney disease, unspecified CKD stage 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 ([facility]) Pre-operative examination- Primary Preoperative examination, unspecified Vaginal prolapse Unspecified prolapse of vaginal garrett Anxiety and depression Dysthymic disorder Chronic intractable headache, unspecified headache type Chronic kidney disease, unspecified CKD stage Class 3 severe obesity due to excess calories with serious comorbidity and body mass index (BMI) of 40.0 to 44.9 in adult (HCC) 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 (HCC) Essential hypertension, [...] benign Mixed hyperlipidemia 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 ([facility]) LBBB (left bundle branch block) Other left bundle branch block 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 Obstructive sleep apnea (adult) (pediatric) Other irritable bowel syndrome Anxiety and depression Dysthymic disorder Class 3 severe obesity due to excess calories with serious comorbidity and body mass index (BMI) of 40.0 to 44.9 in adult ([facility]) Urinary frequency [facility] Diagnosis Pre-operative examination- Primary Preoperative [...] unspecified CKD stage 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 (HCC) Pre-operative examination- Primary Preoperative examination, unspecified Vaginal prolapse Unspecified prolapse of vaginal garrett Anxiety and depression Dysthymic disorder Chronic intractable headache, unspecified headache type Chronic kidney disease, unspecified CKD stage Class 3 severe obesity due to excess calories with serious comorbidity and body mass index (BMI) of 40.0 to 44.9 in adult (HCC) 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 (HCC) Essential hypertension, [...] benign Mixed hyperlipidemia 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 ([facility]) LBBB (left bundle branch block) Other left [...] vitamin D deficiency [facility] Diagnosis Pre-operative examination- Primary Preoperative [...] complication, without long-term current use of insulin ([facility]) Iron deficiency anemia, unspecified iron deficiency anemia type Anxiety and depression Dysthymic disorder Chronic back pain, unspecified back location, unspecified back pain laterality Class 3 severe obesity without serious comorbidity with body mass index (BMI) of 45.0 to 49.9 in adult, unspecified obesity type ([facility]) Chronic kidney disease, unspecified CKD stage 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 (HCC) Pre-operative examination- Primary Preoperative examination, unspecified Vaginal prolapse Unspecified prolapse of vaginal garrett Anxiety and depression Dysthymic disorder Chronic intractable headache, unspecified headache type Chronic kidney disease, unspecified CKD stage Class 3 severe obesity due to excess calories with serious comorbidity and body mass index (BMI) of 40.0 to 44.9 in adult (HCC) 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 (HCC) Essential hypertension, [...] complication, without long-term current use of insulin ([facility]) 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 Spinal stenosis, lumbar region, with neurogenic claudication Pre-op evaluation- Primary Preoperative examination, unspecified RLS (restless legs syndrome) Restless legs syndrome (RLS) Fibromyalgia Mylagia and myositis, unspecified Essential hypertension, benign Mixed hyperlipidemia 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 ([facility]) LBBB (left bundle branch block) Other left bundle branch block 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 Obstructive sleep apnea (adult) (pediatric) Other irritable bowel syndrome Anxiety and depression Dysthymic disorder Class 3 severe obesity due to excess calories with serious comorbidity and body mass index (BMI) of 40.0 to 44.9 in adult ([facility]) Urinary frequency Class 3 severe obesity without serious comorbidity with body mass index (BMI) of 45.0 to 49.9 in adult, unspecified obesity type (HCC)- Primary Gastroesophageal reflux disease with esophagitis, unspecified whether hemorrhage Dietary counseling Dietary surveillance and counseling Type 2 diabetes mellitus with other specified complication, without long-term current use of insulin ([facility]) [facility] Diagnosis Pre-operative examination- Primary Preoperative examination, unspecified Fuchs' endothelial dystrophy Endothelial corneal dystrophy Type 2 diabetes mellitus with other specified complication, without long-term current use of insulin ([facility]) Essential hypertension, benign Mixed hyperlipidemia Hypothyroidism, unspecified [...] unspecified CKD stage 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 (HCC) Pre-operative examination- Primary Preoperative examination, unspecified Vaginal prolapse Unspecified prolapse of vaginal garrett Anxiety and depression Dysthymic disorder Chronic intractable headache, unspecified headache type Chronic kidney disease, unspecified CKD stage Class 3 severe obesity due to excess calories with serious comorbidity and body mass index (BMI) of 40.0 to 44.9 in adult (HCC) 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 (HCC) Essential hypertension, [...] benign Mixed hyperlipidemia 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 (HCC) LBBB (left [...] Essential hypertension, benign [facility] Diagnosis Pre-operative examination- Primary Preoperative [...] unspecified CKD stage 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 ([facility]) Pre-operative examination- Primary Preoperative examination, unspecified Vaginal prolapse Unspecified prolapse of vaginal garrett Anxiety and depression Dysthymic disorder Chronic intractable headache, unspecified headache type Chronic kidney disease, unspecified CKD stage Class 3 severe obesity due to excess calories with serious comorbidity and body mass index (BMI) of 40.0 to 44.9 in adult ([facility]) 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 (HCC) Essential hypertension, [...] complication, without long-term current use of insulin ([facility]) 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 Spinal stenosis, lumbar region, with neurogenic claudication Pre-op evaluation- Primary Preoperative examination, unspecified RLS (restless legs syndrome) Restless legs syndrome (RLS) Fibromyalgia Mylagia and myositis, unspecified Essential hypertension, benign Mixed hyperlipidemia 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 ([facility]) LBBB (left bundle branch block) Other left bundle branch block 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 Obstructive sleep apnea (adult) (pediatric) Other irritable bowel syndrome Anxiety and depression Dysthymic disorder Class 3 severe obesity due to excess calories with serious comorbidity and body mass index (BMI) of 40.0 to 44.9 in adult ([facility]) Urinary frequency Class 3 severe obesity without serious comorbidity with body mass index (BMI) of 45.0 to 49.9 in adult, unspecified obesity type ([facility])- Primary Gastroesophageal reflux disease with esophagitis, unspecified whether hemorrhage Dietary counseling Dietary surveillance and counseling Type 2 diabetes mellitus with other specified complication, without long-term current use of insulin ([facility]) Weight loss counseling, encounter for Dietary surveillance and counseling [facility] Diagnosis Pre-operative examination- Primary Preoperative examination, unspecified Fuchs' endothelial dystrophy Endothelial corneal dystrophy Type 2 diabetes mellitus with other specified complication, without long-term current use of insulin ([facility]) Essential hypertension, benign Mixed hyperlipidemia Hypothyroidism, unspecified [...] unspecified CKD stage 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 (HCC) Pre-operative examination- Primary Preoperative examination, unspecified Vaginal prolapse Unspecified prolapse of vaginal garrett Anxiety and depression Dysthymic disorder Chronic intractable headache, unspecified headache type Chronic kidney disease, unspecified CKD stage Class 3 severe obesity due to excess calories with serious comorbidity and body mass index (BMI) of 40.0 to 44.9 in adult (HCC) 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 (HCC) Essential hypertension, [...] benign Mixed hyperlipidemia 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 (HCC) LBBB (left [...] Unspecified sinusitis (chronic) [facility] Pre-operative examination- Primary Preoperative [...] unspecified CKD stage 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 (HCC) Pre-operative examination- Primary Preoperative examination, unspecified Vaginal prolapse Unspecified prolapse of vaginal garrett Anxiety and depression Dysthymic disorder Chronic intractable headache, unspecified headache type Chronic kidney disease, unspecified CKD stage Class 3 severe obesity due to excess calories with serious comorbidity and body mass index (BMI) of 40.0 to 44.9 in adult (HCC) 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 (HCC) Essential hypertension, [...] complication, without long-term current use of insulin ([facility]) 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 Spinal stenosis, lumbar region, with neurogenic claudication Pre-op evaluation- Primary Preoperative examination, unspecified RLS (restless legs syndrome) Restless legs syndrome (RLS) Fibromyalgia Mylagia and myositis, unspecified Essential hypertension, benign Mixed hyperlipidemia 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 (HCC) LBBB (left [...] complication, without long-term current use of insulin ([facility]) [facility] Diagnosis Pre-operative examination- Primary Preoperative examination, unspecified Fuchs' endothelial dystrophy Endothelial corneal dystrophy Type 2 diabetes mellitus with other specified complication, without long-term current use of insulin ([facility]) Essential hypertension, benign Mixed hyperlipidemia Hypothyroidism, unspecified [...] unspecified CKD stage 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 Pre-operative examination- Primary Preoperative examination, unspecified Vaginal prolapse Unspecified prolapse of vaginal garrett Anxiety and depression Dysthymic disorder Chronic intractable headache, unspecified headache type Chronic kidney disease, unspecified CKD stage Class 3 severe obesity due to excess calories with serious comorbidity and body mass index (BMI) of 40.0 to 44.9 in adult 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 Essential hypertension, benign [...] benign Mixed hyperlipidemia 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 LBBB (left bundle [...] involving cardiovascular system [facility] Diagnosis Pre-operative examination- Primary Preoperative [...] unspecified CKD stage 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 Pre-operative examination- Primary Preoperative examination, unspecified Vaginal prolapse Unspecified prolapse of vaginal garrett Anxiety and depression Dysthymic disorder Chronic intractable headache, unspecified headache type Chronic kidney disease, unspecified CKD stage Class 3 severe obesity due to excess calories with serious comorbidity and body mass index (BMI) of 40.0 to 44.9 in adult 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 Essential hypertension, benign [...] benign Mixed hyperlipidemia 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 LBBB (left bundle [...] Corns and callosities [facility] Diagnosis Pre-operative examination- Primary Preoperative [...] unspecified CKD stage 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 Pre-operative examination- Primary Preoperative examination, unspecified Vaginal prolapse Unspecified prolapse of vaginal garrett Anxiety and depression Dysthymic disorder Chronic intractable headache, unspecified headache type Chronic kidney disease, unspecified CKD stage Class 3 severe obesity due to excess calories with serious comorbidity and body mass index (BMI) of 40.0 to 44.9 in adult 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 Essential hypertension, benign [...] benign Mixed hyperlipidemia 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 LBBB (left bundle [...] legs syndrome (RLS) [facility] Diagnosis Pre-operative examination- Primary Preoperative [...] unspecified CKD stage 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 Pre-operative examination- Primary Preoperative examination, unspecified Vaginal prolapse Unspecified prolapse of vaginal garrett Anxiety and depression Dysthymic disorder Chronic intractable headache, unspecified headache type Chronic kidney disease, unspecified CKD stage Class 3 severe obesity due to excess calories with serious comorbidity and body mass index (BMI) of 40.0 to 44.9 in adult 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 Essential hypertension, benign [...] benign Mixed hyperlipidemia 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 LBBB (left bundle [...] legs syndrome (RLS) [facility] Diagnosis Pre-operative examination- Primary Preoperative [...] to 49.9 in adult, unspecified obesity type ([facility]) Chronic kidney disease, unspecified CKD stage 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 Pre-operative examination- Primary Preoperative examination, unspecified Vaginal prolapse Unspecified prolapse of vaginal garrett Anxiety and depression Dysthymic disorder Chronic intractable headache, unspecified headache type Chronic kidney disease, unspecified CKD stage Class 3 severe obesity due to excess calories with serious comorbidity and body mass index (BMI) of 40.0 to 44.9 in adult ([facility]) 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 Essential hypertension, benign Fibromyalgia Mylagia and myositis, unspecified Gastroesophageal reflux disease with esophagitis, unspecified whether hemorrhage Hypothyroidism, unspecified type Iron deficiency anemia, unspecified iron deficiency anemia type Mixed hyperlipidemia 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 Obstructive sleep apnea (adult) (pediatric) RLS (restless legs syndrome) Restless legs syndrome (RLS) Type 2 diabetes mellitus with other specified complication, without long-term current use of insulin ([facility]) 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 Spinal stenosis, lumbar region, with neurogenic claudication Pre-op evaluation- Primary Preoperative examination, unspecified RLS (restless legs syndrome) Restless legs syndrome (RLS) Fibromyalgia Mylagia and myositis, unspecified Essential hypertension, benign Mixed hyperlipidemia 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 LBBB (left bundle branch block) Other left bundle branch block 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 Obstructive sleep apnea (adult) (pediatric) Other irritable bowel syndrome Anxiety and depression Dysthymic disorder Class 3 severe obesity due to excess calories with serious comorbidity and body mass index (BMI) of 40.0 to 44.9 in adult ([facility]) Urinary frequency RLS (restless legs syndrome)- Primary Restless legs syndrome (RLS) Iron deficiency anemia, unspecified iron deficiency anemia type MAURICE (obstructive sleep apnea) Obstructive sleep apnea (adult) (pediatric) Class 3 severe obesity with body mass index (BMI) of 40.0 to 44.9 in adult, unspecified obesity type, unspecified whether serious comorbidity present ([facility]) [facility] Diagnosis Pre-operative examination- Primary Preoperative [...] unspecified CKD stage 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 Pre-operative examination- Primary Preoperative examination, unspecified Vaginal prolapse Unspecified prolapse of vaginal garrett Anxiety and depression Dysthymic disorder Chronic intractable headache, unspecified headache type Chronic kidney disease, unspecified CKD stage Class 3 severe obesity due to excess calories with serious comorbidity and body mass index (BMI) of 40.0 to 44.9 in adult (HCC) 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 Essential hypertension, benign [...] benign Mixed hyperlipidemia 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 LBBB (left bundle [...] complication, without long-term current use of insulin ([facility]) [facility] Diagnosis Pre-operative examination- Primary Preoperative [...] to 49.9 in adult, unspecified obesity type ([facility]) Chronic kidney disease, unspecified CKD stage 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 Pre-operative examination- Primary Preoperative examination, unspecified Vaginal prolapse Unspecified prolapse of vaginal garrett Anxiety and depression Dysthymic disorder Chronic intractable headache, unspecified headache type Chronic kidney disease, unspecified CKD stage Class 3 severe obesity due to excess calories with serious comorbidity and body mass index (BMI) of 40.0 to 44.9 in adult ([facility]) 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 Essential hypertension, benign Fibromyalgia Mylagia and myositis, unspecified Gastroesophageal reflux disease with esophagitis, unspecified whether hemorrhage Hypothyroidism, unspecified type Iron deficiency anemia, unspecified iron deficiency anemia type Mixed hyperlipidemia 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 Obstructive sleep apnea (adult) (pediatric) RLS (restless legs syndrome) Restless legs syndrome (RLS) Type 2 diabetes mellitus with other specified complication, without long-term current use of insulin ([facility]) 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 Spinal stenosis, lumbar region, with neurogenic claudication Pre-op evaluation- Primary Preoperative examination, unspecified RLS (restless legs syndrome) Restless legs syndrome (RLS) Fibromyalgia Mylagia and myositis, unspecified Essential hypertension, benign Mixed hyperlipidemia 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 LBBB (left bundle branch block) Other left bundle branch block 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 Obstructive sleep apnea (adult) (pediatric) Other irritable bowel syndrome Anxiety and depression Dysthymic disorder Class 3 severe obesity due to excess calories with serious comorbidity and body mass index (BMI) of 40.0 to 44.9 in adult ([facility]) Urinary frequency Hammer toes of both feet- Primary Callus Corns and callosities Diabetic polyneuropathy associated with type 2 diabetes mellitus ([facility]) [facility] Pre-operative examination- Primary Preoperative [...] complication, without long-term current use of insulin ([facility]) Iron deficiency anemia, unspecified iron deficiency anemia type Anxiety and depression Dysthymic disorder Chronic back pain, unspecified back location, unspecified back pain laterality Class 3 severe obesity without serious comorbidity with body mass index (BMI) of 45.0 to 49.9 in adult, unspecified obesity type ([facility]) Chronic kidney disease, unspecified CKD stage 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 Pre-operative examination- Primary Preoperative examination, unspecified Vaginal prolapse Unspecified prolapse of vaginal garrett Anxiety and depression Dysthymic disorder Chronic intractable headache, unspecified headache type Chronic kidney disease, unspecified CKD stage Class 3 severe obesity due to excess calories with serious comorbidity and body mass index (BMI) of 40.0 to 44.9 in adult ([facility]) 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 Essential hypertension, benign Fibromyalgia Mylagia and myositis, unspecified Gastroesophageal reflux disease with esophagitis, unspecified whether hemorrhage Hypothyroidism, unspecified type Iron deficiency anemia, unspecified iron deficiency anemia type Mixed hyperlipidemia 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 Obstructive sleep apnea (adult) (pediatric) RLS (restless legs syndrome) Restless legs syndrome (RLS) Type 2 diabetes mellitus with other specified complication, without long-term current use of insulin ([facility]) 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 Spinal stenosis, lumbar region, with neurogenic claudication Pre-op evaluation- Primary Preoperative examination, unspecified RLS (restless legs syndrome) Restless legs syndrome (RLS) Fibromyalgia Mylagia and myositis, unspecified Essential hypertension, benign Mixed hyperlipidemia 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 LBBB (left bundle [...] complication, without long-term current use of insulin ([facility]) [facility] Diagnosis Pre-operative examination- Primary Preoperative [...] unspecified CKD stage 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 Pre-operative examination- Primary Preoperative examination, unspecified Vaginal prolapse Unspecified prolapse of vaginal garrett Anxiety and depression Dysthymic disorder Chronic intractable headache, unspecified headache type Chronic kidney disease, unspecified CKD stage Class 3 severe obesity due to excess calories with serious comorbidity and body mass index (BMI) of 40.0 to 44.9 in adult ([facility]) 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 Essential hypertension, benign Fibromyalgia Mylagia and myositis, unspecified Gastroesophageal reflux disease with esophagitis, unspecified whether hemorrhage Hypothyroidism, unspecified type Iron deficiency anemia, unspecified iron deficiency anemia type Mixed hyperlipidemia 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 Obstructive sleep apnea (adult) (pediatric) RLS (restless legs syndrome) Restless legs syndrome (RLS) Type 2 diabetes mellitus with other specified complication, without long-term current use of insulin ([facility]) 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 Spinal stenosis, lumbar region, with neurogenic claudication Pre-op evaluation- Primary Preoperative examination, unspecified RLS (restless legs syndrome) Restless legs syndrome (RLS) Fibromyalgia Mylagia and myositis, unspecified Essential hypertension, benign Mixed hyperlipidemia 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 LBBB (left bundle branch block) Other left bundle branch block 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 Obstructive sleep apnea (adult) (pediatric) Other irritable bowel syndrome Anxiety and depression Dysthymic disorder Class 3 severe obesity due to excess calories with serious comorbidity and body mass index (BMI) of 40.0 to 44.9 in adult ([facility]) Urinary frequency Multiple joint pain- Primary Pain in joint, multiple sites Other fatigue Decreased mobility Other symptoms involving nervous and musculoskeletal systems Essential hypertension, benign Primary osteoarthritis of right hand Primary localized osteoarthrosis, hand Primary osteoarthritis, left hand Type 2 diabetes mellitus without complication, without long-term current use of insulin ([facility]) RLS (restless legs syndrome) Restless legs syndrome (RLS) Loneliness Other psychological or physical stress, not elsewhere classified [facility] Diagnosis Pre-operative examination- Primary Preoperative examination, unspecified Fuchs' endothelial dystrophy Endothelial corneal dystrophy Type 2 diabetes mellitus with other specified complication, without long-term current use of insulin ([facility]) Essential hypertension, benign Mixed hyperlipidemia Hypothyroidism, unspecified [...] unspecified CKD stage 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 Pre-operative examination- Primary Preoperative examination, unspecified Vaginal prolapse Unspecified prolapse of vaginal garrett Anxiety and depression Dysthymic disorder Chronic intractable headache, unspecified headache type Chronic kidney disease, unspecified CKD stage Class 3 severe obesity due to excess calories with serious comorbidity and body mass index (BMI) of 40.0 to 44.9 in adult (HCC) 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 Essential hypertension, benign [...] benign Mixed hyperlipidemia 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 LBBB (left bundle [...] to 49.9 in adult, unspecified obesity type ([facility])- Primary Gastroesophageal reflux disease with esophagitis, unspecified whether hemorrhage Dietary counseling Dietary surveillance and counseling Controlled type 2 diabetes mellitus without complication, without long-term current use of insulin ([facility]) [facility] Diagnosis Pre-operative examination- Primary Preoperative examination, unspecified Fuchs' endothelial dystrophy Endothelial corneal dystrophy Type 2 diabetes mellitus with other specified complication, without long-term current use of insulin ([facility]) Essential hypertension, benign Mixed hyperlipidemia Hypothyroidism, unspecified [...] unspecified CKD stage 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 Pre-operative examination- Primary Preoperative examination, unspecified Vaginal prolapse Unspecified prolapse of vaginal garrett Anxiety and depression Dysthymic disorder Chronic intractable headache, unspecified headache type Chronic kidney disease, unspecified CKD stage Class 3 severe obesity due to excess calories with serious comorbidity and body mass index (BMI) of 40.0 to 44.9 in adult (HCC) 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 Essential hypertension, benign Fibromyalgia Mylagia and myositis, unspecified Gastroesophageal reflux disease with esophagitis, unspecified whether hemorrhage Hypothyroidism, unspecified type Iron deficiency anemia, unspecified iron deficiency anemia type Mixed hyperlipidemia 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 Obstructive sleep apnea (adult) (pediatric) RLS (restless legs syndrome) Restless legs syndrome (RLS) Type 2 diabetes mellitus with other specified complication, without long-term current use of insulin ([facility]) 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 Spinal stenosis, lumbar region, with neurogenic claudication Pre-op evaluation- Primary Preoperative examination, unspecified RLS (restless legs syndrome) Restless legs syndrome (RLS) Fibromyalgia Mylagia and myositis, unspecified Essential hypertension, benign Mixed hyperlipidemia 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 LBBB (left bundle [...] to 49.9 in adult, unspecified obesity type ([facility])- Primary Gastroesophageal reflux disease with esophagitis, unspecified whether hemorrhage Dietary counseling Dietary surveillance and counseling Controlled type 2 diabetes mellitus without complication, without long-term current use of insulin ([facility]) [facility] Diagnosis Pre-operative examination- Primary Preoperative examination, unspecified Fuchs' endothelial dystrophy Endothelial corneal dystrophy Type 2 diabetes mellitus with other specified complication, without long-term current use of insulin ([facility]) Essential hypertension, benign Mixed hyperlipidemia Hypothyroidism, unspecified [...] unspecified CKD stage 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 Pre-operative examination- Primary Preoperative examination, unspecified Vaginal prolapse Unspecified prolapse of vaginal garrett Anxiety and depression Dysthymic disorder Chronic intractable headache, unspecified headache type Chronic kidney disease, unspecified CKD stage Class 3 severe obesity due to excess calories with serious comorbidity and body mass index (BMI) of 40.0 to 44.9 in adult (HCC) 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 Essential hypertension, benign [...] benign Mixed hyperlipidemia 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 LBBB (left bundle [...] deficiency anemia type [facility] Pre-operative examination- Primary Preoperative examination, unspecified Fuchs' endothelial dystrophy Endothelial corneal dystrophy Type 2 diabetes mellitus with other specified complication, without long-term current use of insulin ([facility]) Essential hypertension, benign Mixed hyperlipidemia Hypothyroidism, unspecified [...] complication, without long-term current use of insulin ([facility]) Iron deficiency anemia, unspecified iron deficiency anemia type Anxiety and depression Dysthymic disorder Chronic back pain, unspecified back location, unspecified back pain laterality Class 3 severe obesity without serious comorbidity with body mass index (BMI) of 45.0 to 49.9 in adult, unspecified obesity type ([facility]) Chronic kidney disease, unspecified CKD stage 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 Pre-operative examination- Primary Preoperative examination, unspecified Vaginal prolapse Unspecified prolapse of vaginal garrett Anxiety and depression Dysthymic disorder Chronic intractable headache, unspecified headache type Chronic kidney disease, unspecified CKD stage Class 3 severe obesity due to excess calories with serious comorbidity and body mass index (BMI) of 40.0 to 44.9 in adult ([facility]) 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 Essential hypertension, benign Fibromyalgia Mylagia and myositis, unspecified Gastroesophageal reflux disease with esophagitis, unspecified whether hemorrhage Hypothyroidism, unspecified type Iron deficiency anemia, unspecified iron deficiency anemia type Mixed hyperlipidemia 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 Obstructive sleep apnea (adult) (pediatric) RLS (restless legs syndrome) Restless legs syndrome (RLS) Type 2 diabetes mellitus with other specified complication, without long-term current use of insulin ([facility]) 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 Spinal stenosis, lumbar region, with neurogenic claudication Pre-op evaluation- Primary Preoperative examination, unspecified RLS (restless legs syndrome) Restless legs syndrome (RLS) Fibromyalgia Mylagia and myositis, unspecified Essential hypertension, benign Mixed hyperlipidemia 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 LBBB (left bundle branch block) Other left bundle branch block 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 Obstructive sleep apnea (adult) (pediatric) Other irritable bowel syndrome Anxiety and depression Dysthymic disorder Class 3 severe obesity due to excess calories with serious comorbidity and body mass index (BMI) of 40.0 to 44.9 in adult ([facility]) Urinary frequency History of right hip replacement- Primary Primary osteoarthritis of right hip Primary localized osteoarthrosis, pelvic region and thigh documented in this encounter [facility] Discharge instructions* Instructions* Sima Man MD - 03/03/2021 Call your doctor with any medication questions or if you notice any side effects from your medications. If you are unable to fill your medications, please call your Button Inspector immediately. The office number is located with [...] for 24 hours. GIVE PCI PACKET (FROM PLANT ANATOMY TEACHER) TO PATIENT Give Coronary Artery Discharge Booklet [...] Cardiac Rehab The Cardiac Rehabilitation Team at [facility] consists of highly skilled healthcare professionals, [...] regarding this valuable service please call # [phone] If you have questions, issues, or concerns please call or text the Ischemic Heart Disease coordinator Advance Practice Nurse, Esperanza Ann, cell phone # [phone] documented in this [facility] Work Phone: Patient's home Plan of [...] Discuss all medications you are taking, even [id number] medicines, with your provider and pharmacist since [...] and energy conservation. documented in this encounter [facility] Plan of care note* Visit Details Visit Type -PETROLEUM REFINERY OPERATOR ROUTINE Discipline -Physical Therapy Problems Problem Description [...] the following adaptive equipment/durable medical equipment: leg pigment furnace tender. Physical Therapy Gait Training Problem:PT Impaired gait [...] home exercise program. documented in this encounter [facility] home Plan of care note* Visit Details [...] community ambulation, in order to return to [facility], to be achieved by 04/08/23. . PT [...] and verbal cues for use of leg pigment furnace tender. { Physical Therapy Gait Training Problem:PT Impaired [...] to call provider. documented in this encounter [facility] home Plan of care note* Visit Details [...] and activity guidelines. documented in this encounter [facility] home Plan of care note* Visit Details Visit Type -PETROLEUM REFINERY OPERATOR ROUTINE Discipline -Physical Therapy Problems Problem Description [...] to call provider. documented in this encounter [facility] for referral (narrative)* Diagnostic Procedure Only (Routine) - Closed Specialty Diagnoses / Procedures Referred By Jae pablo Referred To Contact XR IMAGING Diagnoses Status post total bilateral knee replacement Procedures XR KNEE GENERAL 4V AP BOTH/PA BOTH/LAT/MERC BILATERAL RADIOLOGIC EXAM KNEE COMPLETE 4/MORE VIEWS Lety Haywood PA-C [address] [place] [address] Xr Imaging Referral ID Status Reason Start Date Expiration Date V isits Requested Visits Authorized [id number] Closed Auto-Generate d Referral 01/03/2022 02/02/2023 1 1 [facility] for referral (narrative)* Diagnostic Procedure Only (Routine) - Closed Specialty Diagnoses / Procedures Referred By Contac t Referred To Contact XR IMAGING Diagnoses Status post total bilateral knee replacement Procedures XR KNEE GENERAL 4V AP BOTH/PA BOTH/LAT/MERC BILATERAL RADIOLOGIC EXAM KNEE COMPLETE 4/MORE VIEWS Lety Haywood PA-C [address] [place] [address] Xr Imaging Referral ID Status Reason Start Date Expiration Date V isits Requested Visits Authorized [id number] Closed Auto-Generate d Referral 01/03/2022 02/02/2023 1 1 [facility] for referral (narrative)* Diagnostic Procedure Only (Routine) - Closed Specialty Diagnoses / Procedures Referred By Contac t Referred To Contact XR IMAGING Diagnoses Fallen arches Procedures XR FOOT GENERAL 3V AP/LAT/OBL BILATERAL RADEX FOOT COMPLETE MINIMUM 3 VIEWS Anderson Mims [address] [facility] [place] [address] Xr Imaging Referral ID Status Reason Start Date Expiration Date V isits Requested Visits Authorized [id number] Closed Auto-Generate d Referral 02/21/2022 03/23/2023 1 1 [facility] for referral (narrative)* Outpatient Procedure (Routine) - Authorized Specialty Diagnoses / Procedures Referred By Contac t Referred To [facility] Diagnoses Pre-op chest exam Procedures ECG COMPLETE ECG ROUTINE ECG W/LEAST 12 LDS W/I&R Hang Frank MD [address] [place] [address] [facility] [place] [address] [place] [address] Referral ID Status Reason Start Date Expiration Date Visits Requested Visits Authorized [id number] Authorized Auto-Generat ed Referral 03/30/2022 03/30/2023 1 1 [facility] for referral (narrative)* Diagnostic Procedure Only (Routine) - Pending Review Specialty Diagnoses / Procedures Referred By Contac t Referred To Contact BR IMAGING Diagnoses Encounter for screening mammogram for malignant neoplasm of breast Procedures MATTHIAS SCREENING SCREENING MAMMOGRAPHY BI 2-VIEW BREAST INC Helen Banks MD [address] [place] [address] Br Imaging [address] [place] [address] Referral ID Status Reason Start Date Expiration Date Visits Requested Visits Authorized [id number] Pending Review Auto-Generat ed Referral 11/21/2022 12/21/2023 1 1 [facility] for referral (narrative)* - Authorized Specialty Diagnoses / Procedures Referred By Contac t Referred To Contact Physical Therapy Diagnoses Primary osteoarthritis of right hip Procedures CONSULT TO PHYSICAL THERAPY Lety Haywood PA-C [address] [place] [address] Referral ID Status Reason Start Date Expiration Date V isits Requested Visits Authorized [id number] Authorized 03/27/2023 06/25/2023 99 99 [facility] for referral (narrative)* Diagnostic Procedure Only (Routine) - Pending Review Specialty Diagnoses / Procedures Referred By Contac t Referred To Contact XR IMAGING Diagnoses Primary osteoarthritis of right hip Status post total replacement of right hip Procedures XR HIP GENERAL 3V PELV/AP/LAT RIGHT RADEX HIP UNILATERAL WITH PELVIS 2-3 VIEWS Marco Hernandez MD [address] [place] [address] [place] [address] Referral ID Status Reason Start Date Expiration Date Visits Requested Visits Authorized [id number] Pending Review Auto-Generat ed Referral 04/18/2023 05/17/2024 1 1 [facility] for referral (narrative)* Diagnostic Procedure Only (Routine) - Pending Review Specialty Diagnoses / Procedures Referred By Jae pablo Referred To Contact XR IMAGING Diagnoses Primary osteoarthritis of right hip History of right hip replacement Procedures XR HIP GENERAL 3V PELV/AP/LAT RIGHT RADEX HIP UNILATERAL WITH PELVIS 2-3 VIEWS Marco Hernandez MD [address] [place] [address] [place] [address] Referral ID Status Reason Start Date Expiration Date Visits Requested Visits Authorized [id number] Pending Review Auto-Generat ed Referral 06/28/2024 1 1 [facility] for referral (narrative)* Diagnostic Procedure Only (Routine) - Closed Specialty Diagnoses / Procedures Referred By Jae pablo Referred To Contact BR IMAGING Diagnoses Encounter for screening mammogram for malignant neoplasm of breast Procedures MATTHIAS SCREENING SCREENING MAMMOGRAPHY BI 2-VIEW BREAST INC CAD Helen Chapa MD [address] [place] [address] Br Imaging [address] [place] [address] Referral ID Status Reason Start Date Expiration Date V isits Requested Visits Authorized [id number] Closed Auto-Generate d Referral 11/21/2022 12/21/2023 1 1 [facility] for referral (narrative)* Diagnostic Procedure Only (Routine) - Closed Specialty Diagnoses / Procedures Referred By Jae pablo Referred To Contact XR IMAGING Diagnoses Primary osteoarthritis of right hip Status post total replacement of right hip Procedures XR HIP GENERAL 3V PELV/AP/LAT RIGHT RADEX HIP UNILATERAL WITH PELVIS 2-3 VIEWS Marco Hernandez MD [address] [place] [address] [place] [address] Referral ID Status Reason Start Date Expiration Date V isits Requested Visits Authorized [id number] Closed Auto-Generate d Referral 04/18/2023 05/17/2024 1 1 [facility] for referral (narrative)* Diagnostic Procedure Only (Routine) - Closed Specialty Diagnoses / Procedures Referred By Contac t Referred To Contact XR IMAGING Diagnoses Primary osteoarthritis of left hip Status post total hip replacement, right Procedures XR HIP GENERAL 3V PELV/AP/LAT RIGHT RADEX HIP UNILATERAL WITH PELVIS 2-3 VIEWS Lety Haywood PA-C [address] [place] [address] [place] [address] Referral ID Status Reason Start Date Expiration Date V isits Requested Visits Authorized [id number] Closed Auto-Generate d Referral 03/22/2023 04/20/2024 1 1 [facility] for referral (narrative)* Diagnostic Procedure Only (Routine) - Closed Specialty Diagnoses / Procedures Referred By Jae pablo Referred To Contact XR IMAGING Diagnoses Primary osteoarthritis of right hip Procedures XR HIP GENERAL 3V PELV/AP/LAT RIGHT RADEX HIP UNILATERAL WITH PELVIS 2-3 VIEWS Lety Haywood PA-C [address] [place] [address] [place] [address] Referral ID Status Reason Start Date Expiration Date V isits Requested Visits Authorized [id number] Closed Auto-Generate d Referral 12/27/2022 01/26/2024 1 1 [facility] for referral (narrative)* Diagnostic Procedure Only (Routine) - Authorized Specialty Diagnoses / Procedures Referred By Jae t Referred To Contact BR IMAGING Diagnoses Encounter for screening mammogram for malignant neoplasm of breast Procedures MATTHIAS SCREENING SCREENING MAMMOGRAPHY BI 2-VIEW BREAST INC Екатерина Madrid, PAPER TESTER.RUBY ON RAILS DEVELOPER [address] [place] [address] [facility] Imaging [address] [place] [address] Referral ID Status Reason Start Date Expiration Date Visits Requested Visits Authorized [id number] Authorized Auto-Generat ed Referral 02/21/2024 03/22/2025 1 1 [facility] for referral (narrative)* Diagnostic Procedure Only (Routine) - Closed Specialty Diagnoses / Procedures Referred By Contac t Referred To Contact XR IMAGING Diagnoses Low back pain, unspecified back pain laterality, unspecified chronicity, unspecified whether sciatica present Procedures XR LUMBAR GENERAL 3V AP/LAT/L5-S1 X-RAY L-S SPINE AP/LATERAL Lety Haywood PA-C [address] [place] [address] [place] [address] Referral ID Status Reason Start Date Expiration Date V isits Requested Visits Authorized [id number] Closed Auto-Generate d Referral 08/03/2021 09/02/2022 1 1 [facility] for referral (narrative)* Diagnostic Procedure Only (Routine) - Closed Specialty Diagnoses / Procedures Referred By Contac t Referred To Contact XR IMAGING Diagnoses Right hip pain Procedures XR HIP GENERAL 3V PELV/AP/LAT RT RADEX HIP UNILATERAL WITH PELVIS 2-3 VIEWS Francesco Castrejon APRN.RUBY ON RAILS DEVELOPER [address] [place] [address] [place] [address] Referral ID Status Reason Start Date Expiration Date V isits Requested Visits Authorized [id number] Closed Auto-Generate d Referral 04/13/2021 05/13/2022 1 1 [facility] for referral (narrative)* Medication Prior Authorization - Pending Review Specialty Diagnoses / Procedures Referred By Contac t Referred To Contact Hollie Blevins Jr., MD [address] [place] [address] Phone: tel: fax: Referral ID Status Reason Start Date Expiration Date V isits Requested Visits Authorized [id number] Pending Review 1 1 [facility] for visit Narrative* Diagnostic Procedure Only (Routine) - Closed Specialty Diagnoses / Procedures Referred By Contac t Referred To Contact XR IMAGING Diagnoses Status post total bilateral knee replacement Procedures XR KNEE GENERAL 4V AP BOTH/PA BOTH/LAT/MERC BILATERAL RADIOLOGIC EXAM KNEE COMPLETE 4/MORE VIEWS Lety Haywood PA-C [address] [place] [address] Xr Imaging Referral ID Status Reason Start Date Expiration Date V isits Requested Visits Authorized [id number] Closed Auto-Generate d Referral 01/03/2022 02/02/2023 1 1 [facility] for visit Narrative* Diagnostic Procedure Only (Routine) - Closed Specialty Diagnoses / Procedures Referred By Contac t Referred To Contact XR IMAGING Diagnoses Fallen arches Procedures XR FOOT GENERAL 3V AP/LAT/OBL BILATERAL RADEX FOOT COMPLETE MINIMUM 3 VIEWS Anderson Mims [address] [place] [id number] Xr Imaging Referral ID Status Reason Start Date Expiration Date V isits Requested Visits Authorized [id number] Closed Auto-Generate d Referral 02/21/2022 03/23/2023 1 1 [facility] for visit Narrative* Diagnostic Procedure Only (Routine) - Closed Specialty Diagnoses / Procedures Referred By Contac t Referred To Contact BR IMAGING Diagnoses Encounter for screening mammogram for malignant neoplasm of breast Procedures MATTHIAS SCREENING SCREENING MAMMOGRAPHY BI 2-[place] [address] [place] [address] Br Imaging [address] [place] [address] Referral ID Status Reason Start Date Expiration Date V isits Requested Visits Authorized [id number] Closed Auto-Generate d Referral 11/21/2022 12/21/2023 1 1 [facility] for visit Narrative* Diagnostic Procedure Only (Routine) - Closed Specialty Diagnoses / Procedures Referred By Contac t Referred To Contact XR IMAGING Diagnoses Primary osteoarthritis of right hip Status post total replacement of right hip Procedures XR HIP GENERAL 3V PELV/AP/LAT RIGHT RADEX HIP UNILATERAL WITH PELVIS 2-3 VIEWS Marco Hernandez MD [address] [place] [address] [place] [address] Referral ID Status Reason Start Date Expiration Date V isits Requested Visits Authorized [id number] Closed Auto-Generate d Referral 04/18/2023 05/17/2024 1 1 [facility] for visit Narrative* Diagnostic Procedure Only (Routine) - Closed Specialty Diagnoses / Procedures Referred By Jae t Referred To Contact XR IMAGING Diagnoses Primary osteoarthritis of left hip Status post total hip replacement, right Procedures XR HIP GENERAL 3V PELV/AP/LAT RIGHT RADEX HIP UNILATERAL WITH PELVIS 2-3 VIEWS Lety Haywood, PA-C [address] [place] [address] [place] [address] Referral ID Status Reason Start Date Expiration Date V isits Requested Visits Authorized [id number] Closed Auto-Generate d Referral 03/22/2023 04/20/2024 1 1 [facility] for visit Narrative* Diagnostic Procedure Only (Routine) - Closed Specialty Diagnoses / Procedures Referred By Jae t Referred To Contact XR IMAGING Diagnoses Primary osteoarthritis of right hip Procedures XR HIP GENERAL 3V PELV/AP/LAT RIGHT RADEX HIP UNILATERAL WITH PELVIS 2-3 VIEWS Lety Haywood PA-C [address] [place] [address] [place] [address] Referral ID Status Reason Start Date Expiration Date V isits Requested Visits Authorized [id number] Closed Auto-Generate d Referral 12/27/2022 01/26/2024 1 1 [facility] for visit Narrative* Diagnostic Procedure Only (Routine) - Closed Specialty Diagnoses / Procedures Referred By Jae t Referred To Contact BR IMAGING Diagnoses Encounter for screening mammogram for malignant neoplasm of breast Procedures MATTHIAS SCREENING SCREENING MAMMOGRAPHY BI 2-VIEW BREAST INC Екатерина Madrid PAPER TESTER.RUBY ON RAILS DEVELOPER [address] [place] [address] [facility] Imaging [address] [place] [address] Referral ID Status Reason Start Date Expiration Date V isits Requested Visits Authorized [id number] Closed Auto-Generate d Referral 02/21/2024 03/22/2025 1 1 [facility] for visit Narrative* Diagnostic Procedure Only (Routine) - Closed Specialty Diagnoses / Procedures Referred By Contac t Referred To Contact XR IMAGING Diagnoses Low back pain, unspecified back pain laterality, unspecified chronicity, unspecified whether sciatica present Procedures XR LUMBAR GENERAL 3V AP/LAT/L5-S1 X-RAY L-S SPINE AP/LATERAL Lety Haywood PA-C [address] [place] [address] [place] [address] Referral ID Status Reason Start Date Expiration Date V isits Requested Visits Authorized [id number] Closed Auto-Generate d Referral 08/03/2021 09/02/2022 1 1 [facility] for visit Narrative* Diagnostic Procedure Only (Routine) - Closed Specialty Diagnoses / Procedures Referred By Contac t Referred To Contact XR IMAGING Diagnoses Right hip pain Procedures XR HIP GENERAL 3V PELV/AP/LAT RT RADEX HIP UNILATERAL WITH PELVIS 2-3 VIEWS Francesco Castrejon PAPER TESTER.RUBY ON RAILS DEVELOPER [address] [place] [address] [place] [address] Referral ID Status Reason Start Date Expiration Date V isits Requested Visits Authorized [id number] Closed Auto-Generate d Referral 04/13/2021 05/13/2022 1 1 [facility] for visit Narrative* Diagnostic Procedure Only (Routine) - Closed Specialty Diagnoses / Procedures Referred By Contac t Referred To Contact XR IMAGING Diagnoses Hammer toes of both feet Callus Procedures XR FOOT GENERAL 3V AP/LAT/OBL BILATERAL RADEX FOOT COMPLETE MINIMUM 3 VIEWS Anderson Mims [address] [place] [address] Phone: tel: fax: [place] [address] Referral ID Status Reason Start Date Expiration Date V isits Requested Visits Authorized [id number] Closed Auto-Generate d Referral 12/23/2024 01/22/2026 1 1 [facility] Summary Purpose Family History No Family History Records Found Relationship Condition Age at Onset Recorded Date/T funmilayo father Cerebrovascular accident (CVA) Unknown Coronary artery disease Unknown mother Myocardial infarction 59 brother Coronary artery disease Unknown sister Diabetes mellitus Unknown Hypertension Unknown Cardiac disease Unknown Not Specified Glaucoma Unknown Advance Directives No Advanced Directives Records FoundDocuments on File Type Date Recorded Patient Cash Surrender Calculator Expl anation Advance Directive(s) 05/10/2021 6:57 AM Date Activated Date Inactivated Comments 03/17/2023 4:37 PM Latest Code Status on File Code Status Date Activated Date Inactivated Comments Full Code 03/17/2023 4:37 PM Latest Code Status on File Code Status Date Activated Date Inactivated Comments Full Code 03/01/2021 4:41 PM Documents on File Type Date Recorded Patient Cash Surrender Calculator Expl anation Advance Directive(s) 06/21/2021 8:40 AM [...] Documents on File Type Date Recorded Patient Cash Surrender Calculator Expl anation Advance Directive(s) 06/21/2021 8:40 AM [...] Documents on File Type Date Recorded Patient Cash Surrender Calculator Expl anation Advance Directive(s) 05/10/2021 6:57 AM Advance Directive Response Recorded Date/ Time Advance Directives Yes March 01 9:29am Living Will Yes March 10, 2021 2:27pm Power of Field Handyman Yes March 10 2:27pm Advance Directive Response Recorded Date/ Time Advance Directives Yes March 01 8:29am Living Will Yes March 10, 2021 1:27pm Power of Field Handyman Yes March 10 1:27pm Latest Code Status on File Code Status Date Activated Date Inactivated Comments Full Code 03/17/2023 4:37 PM Date Activated Date Inactivated Comments 03/17/2023 4:37 PM Reason for Referral Status Reason Specialty Diagnoses / Procedures Referred By Contact Referred To Contact In Progress Specialty Services Required Cardiac Rehabilitation Diagnoses Coronary artery disease due to calcified coronary lesion Esperanza Ann, PAPER TESTER - RUBY ON RAILS DEVELOPER [address] [facility] [address] [place] [address] [facility] [address] [place] [address] Scheduling Instructions Summ Cardiac Rehab [address] [facility] [address] [place] [address] Specialty Diagnoses / Procedures Referred By Contac t Referred To Contact Cardiology Diagnoses Preoperative examination Cystocele, midline Rectocele Vaginal vault prolapse History of heart artery stent Procedures CONSULT TO CARDIOLOGY OFFICE/OUTPATIENT [facility] 60-74 MINUTES Randi Jimenez MD [address] [place] [address] Referral ID Status Reason Start Date Expiration Date Visits Requested Visits Authorized [id number] Authorized PCP Requested Referral 03/30/2022 03/30/2023 1 1 Chief Complaint and Reason for Visit Chief Complaint 3 M FU RIGHT HIP INJECTION OSTEO surgery clearence PREOP CLEARANCE PREOP CLEARANCE Reason for Visit Atherosclerotic hear t disease of [place] coronary artery without angina pectoris Rapid palpitations [...] Date High Risk Chronic Disease Home Monitoring [facility] 12/27/2022 Problem Noted Date Diagnosed Date High Risk Chronic Disease Home Monitoring [facility] 12/27/2022 Problem Noted Date Diagnosed Date High Risk Chronic Disease Home Monitoring [facility] 12/27/2022 Problem Noted Date Diagnosed Date High Risk Chronic Disease Home Monitoring [facility] 12/27/2022 Problem Noted Date Diagnosed Date High Risk Chronic Disease Home Monitoring [facility] 12/27/2022 Problem Noted Date Diagnosed Date High Risk Chronic Disease Home Monitoring [facility] 12/27/2022 Problem Noted Date Diagnosed Date High Risk Chronic Disease Home Monitoring [facility] 12/27/2022 Problem Noted Date Diagnosed Date High Risk Chronic Disease Home Monitoring [facility] 12/27/2022 Problem Noted Date Diagnosed Date High Risk Chronic Disease Home Monitoring [facility] 12/27/2022 Problem Noted Date Diagnosed Date High Risk Chronic Disease Home Monitoring [facility] 12/27/2022 Active Problems Noted Date Diagnosed Date High Risk Chronic Disease Home Monitoring [facility] 12/27/2022 Active Problems Noted Date Diagnosed Date High Risk Chronic Disease Home Monitoring [facility] 12/27/2022 Active Problems Noted Date Diagnosed Date High Risk Chronic Disease Home Monitoring [facility] 12/27/2022 Active Problems Noted Date Diagnosed Date High Risk Chronic Disease Home Monitoring [facility] 12/27/2022 Additional Source Comments INFORMATION SOURCE (unrecogn ized section and content) DATE CREATED AUTHOR 06/14/2020 [facility] DATE CREATED AUTHOR AUTHOR'S ORGANIZ ATION [facility] DATE CREATED AUTHOR AUTHOR'S ORGANIZ ATION 03/10/[address] [facility] DATE CREATED AUTHOR AUTHOR'S ORGANIZ ATION 05/20/2023 [facility] DATE CREATED AUTHOR AUTHOR'S ORGANIZ ATION 11/24/2024 [facility] DATE CREATED AUTHOR AUTHOR'S ORGANIZ ATION 06/10/2025 [facility] Ordered Prescriptions (unrec ognized section and content) [...] RN) 1800 (Due - Provider: Ceferino Alfaro [facility])2000 (Due - Provider: Ceferino Alfaro [facility])2200 (Due - Provider: Ceferino Alfaro [facility])2300 (Due - Provider: Ceferino Alfaro [facility]) sodium chloride flush 0.9 % injection 5-40 [...] 5-40 mL, Intravenous, PRN, Line Care, Per Congressional Representative Request, Starting on Mon03/01/21 at 1638, For 72 hours, May use order for Line Care after every IV line use and Agitated Saline Bubble Study. Administration for Bubble Study per closet builder request for only. Remove 1 mL 0.9% [...] or prosecute any alcohol or drug abuse patient.[facility] the event this information is protected by the Federal Confidentiality of Alcohol and Drug Abuse Patient Records regulations: The Federal rules restrict any use of the information to criminally investigate or prosecute any alcohol or drug abuse patient.[facility] HospitalIn the event this information is protected by the Federal Confidentiality of Alcohol and Drug Abuse Patient Records regulations: The Federal rules restrict any use of the information to criminally investigate or prosecute any alcohol or drug abuse patient.[facility]In the event this information is protected by the Federal Confidentiality of Alcohol and Drug Abuse Patient Records regulations: The Federal rules restrict any use of the information to criminally investigate or prosecute any alcohol or drug abuse patient.[facility] HospitalIn the event this information is protected by the Federal Confidentiality of Alcohol and Drug Abuse Patient Records regulations: The Federal rules restrict any use of the information to criminally investigate or prosecute any alcohol or drug abuse patient.[facility] HospitalIn the event this information is protected by the Federal Confidentiality of Alcohol and Drug Abuse Patient Records regulations: The Federal rules restrict any use of the information to criminally investigate or prosecute any alcohol or drug abuse patient.[facility] HospitalIn the event this information is protected by the Federal Confidentiality of Alcohol and Drug Abuse Patient Records regulations: The Federal rules restrict any use of the information to criminally investigate or prosecute any alcohol or drug abuse patient.[facility] HospitalIn the event this information is protected by the Federal Confidentiality of Alcohol and Drug Abuse Patient Records regulations: The Federal rules restrict any use of the information to criminally investigate or prosecute any alcohol or drug abuse patient.[facility] HospitalIn the event this information is protected by the Federal Confidentiality of Alcohol and Drug Abuse Patient Records regulations: The Federal rules restrict any use of the information to criminally investigate or prosecute any alcohol or drug abuse patient.[facility] HospitalIn the event this information is protected by the Federal Confidentiality of Alcohol and Drug Abuse Patient Records regulations: The Federal rules restrict any use of the information to criminally investigate or prosecute any alcohol or drug abuse patient.[facility] HospitalIn the event this information is protected by the Federal Confidentiality of Alcohol and Drug Abuse Patient Records regulations: The Federal rules restrict any use of the information to criminally investigate or prosecute any alcohol or drug abuse patient.[facility] HospitalIn the event this information is protected by the Federal Confidentiality of Alcohol and Drug Abuse Patient Records regulations: The Federal rules restrict any use of the information to criminally investigate or prosecute any alcohol or drug abuse patient.[facility] HospitalIn the event this information is protected by the Federal Confidentiality of Alcohol and Drug Abuse Patient Records regulations: The Federal rules restrict any use of the information to criminally investigate or prosecute any alcohol or drug abuse patient.[facility] HospitalIn the event this information is protected by the Federal Confidentiality of Alcohol and Drug Abuse Patient Records regulations: The Federal rules restrict any use of the information to criminally investigate or prosecute any alcohol or drug abuse patient.[facility] HospitalIn the event this information is protected by the Federal Confidentiality of Alcohol and Drug Abuse Patient Records regulations: The Federal rules restrict any use of the information to criminally investigate or prosecute any alcohol or drug abuse patient.[facility] HospitalIn the event this information is protected by the Federal Confidentiality of Alcohol and Drug Abuse Patient Records regulations: The Federal rules restrict any use of the information to criminally investigate or prosecute any alcohol or drug abuse patient.[facility] HospitalIn the event this information is protected by the Federal Confidentiality of Alcohol and Drug Abuse Patient Records regulations: The Federal rules restrict any use of the information to criminally investigate or prosecute any alcohol or drug abuse patient.[facility] HospitalIn the event this information is protected by the Federal Confidentiality of Alcohol and Drug Abuse Patient Records regulations: The Federal rules restrict any use of the information to criminally investigate or prosecute any alcohol or drug abuse patient.[facility] HospitalIn the event this information is protected by the Federal Confidentiality of Alcohol and Drug Abuse Patient Records regulations: The Federal rules restrict any use of the information to criminally investigate or prosecute any alcohol or drug abuse patient.[facility] HospitalIn the event this information is protected by the Federal Confidentiality of Alcohol and Drug Abuse Patient Records regulations: The Federal rules restrict any use of the information to criminally investigate or prosecute any alcohol or drug abuse patient.[facility] HospitalIn the event this information is protected by the Federal Confidentiality of Alcohol and Drug Abuse Patient Records regulations: The Federal rules restrict any use of the information to criminally investigate or prosecute any alcohol or drug abuse patient.[facility] HospitalIn the event this information is protected by the Federal Confidentiality of Alcohol and Drug Abuse Patient Records regulations: The Federal rules restrict any use of the information to criminally investigate or prosecute any alcohol or drug abuse patient.[facility] HospitalIn the event this information is protected by the Federal Confidentiality of Alcohol and Drug Abuse Patient Records regulations: The Federal rules restrict any use of the information to criminally investigate or prosecute any alcohol or drug abuse patient.[facility] HospitalIn the event this information is protected by the Federal Confidentiality of Alcohol and Drug Abuse Patient Records regulations: The Federal rules restrict any use of the information to criminally investigate or prosecute any alcohol or drug abuse patient.[facility] HospitalIn the event this information is protected by the Federal Confidentiality of Alcohol and Drug Abuse Patient Records regulations: The Federal rules restrict any use of the information to criminally investigate or prosecute any alcohol or drug abuse patient.[facility] HospitalIn the event this information is protected by the Federal Confidentiality of Alcohol and Drug Abuse Patient Records regulations: The Federal rules restrict any use of the information to criminally investigate or prosecute any alcohol or drug abuse patient.[facility] HospitalIn the event this information is protected by the Federal Confidentiality of Alcohol and Drug Abuse Patient Records regulations: The Federal rules restrict any use of the information to criminally investigate or prosecute any alcohol or drug abuse patient.[facility] HospitalIn the event this information is protected by the Federal Confidentiality of Alcohol and Drug Abuse Patient Records regulations: The Federal rules restrict any use of the information to criminally investigate or prosecute any alcohol or drug abuse patient.[facility] HospitalIn the event this information is protected by the Federal Confidentiality of Alcohol and Drug Abuse Patient Records regulations: The Federal rules restrict any use of the information to criminally investigate or prosecute any alcohol or drug abuse patient.[facility] HospitalIn the event this information is protected by the Federal Confidentiality of Alcohol and Drug Abuse Patient Records regulations: The Federal rules restrict any use of the information to criminally investigate or prosecute any alcohol or drug abuse patient.[facility] HospitalIn the event this information is protected by the Federal Confidentiality of Alcohol and Drug Abuse Patient Records regulations: The Federal rules restrict any use of the information to criminally investigate or prosecute any alcohol or drug abuse patient.[facility] HospitalIn the event this information is protected by the Federal Confidentiality of Alcohol and Drug Abuse Patient Records regulations: The Federal rules restrict any use of the information to criminally investigate or prosecute any alcohol or drug abuse patient.[facility] HospitalIn the event this information is protected by the Federal Confidentiality of Alcohol and Drug Abuse Patient Records regulations: The Federal rules restrict any use of the information to criminally investigate or prosecute any alcohol or drug abuse patient.[facility] HospitalIn the event this information is protected by the Federal Confidentiality of Alcohol and Drug Abuse Patient Records regulations: The Federal rules restrict any use of the information to criminally investigate or prosecute any alcohol or drug abuse patient.[facility] HospitalIn the event this information is protected by the Federal Confidentiality of Alcohol and Drug Abuse Patient Records regulations: The Federal rules restrict any use of the information to criminally investigate or prosecute any alcohol or drug abuse patient.[facility] HospitalIn the event this information is protected by the Federal Confidentiality of Alcohol and Drug Abuse Patient Records regulations: The Federal rules restrict any use of the information to criminally investigate or prosecute any alcohol or drug abuse patient.[facility] HospitalIn the event this information is protected by the Federal Confidentiality of Alcohol and Drug Abuse Patient Records regulations: The Federal rules restrict any use of the information to criminally investigate or prosecute any alcohol or drug abuse patient.[facility] HospitalIn the event this information is protected by the Federal Confidentiality of Alcohol and Drug Abuse Patient Records regulations: The Federal rules restrict any use of the information to criminally investigate or prosecute any alcohol or drug abuse patient.[facility] HospitalIn the event this information is protected by the Federal Confidentiality of Alcohol and Drug Abuse Patient Records regulations: The Federal rules restrict any use of the information to criminally investigate or prosecute any alcohol or drug abuse patient.[facility] HospitalIn the event this information is protected by the Federal Confidentiality of Alcohol and Drug Abuse Patient Records regulations: The Federal rules restrict any use of the information to criminally investigate or prosecute any alcohol or drug abuse patient.[facility] HospitalIn the event this information is protected by the Federal Confidentiality of Alcohol and Drug Abuse Patient Records regulations: The Federal rules restrict any use of the information to criminally investigate or prosecute any alcohol or drug abuse patient.[facility] HospitalIn the event this information is protected by the Federal Confidentiality of Alcohol and Drug Abuse Patient Records regulations: The Federal rules restrict any use of the information to criminally investigate or prosecute any alcohol or drug abuse patient.[facility] HospitalIn the event this information is protected by the Federal Confidentiality of Alcohol and Drug Abuse Patient Records regulations: The Federal rules restrict any use of the information to criminally investigate or prosecute any alcohol or drug abuse patient.[facility] HospitalIn the event this information is protected by the Federal Confidentiality of Alcohol and Drug Abuse Patient Records regulations: The Federal rules restrict any use of the information to criminally investigate or prosecute any alcohol or drug abuse patient.[facility] HospitalIn the event this information is protected by the Federal Confidentiality of Alcohol and Drug Abuse Patient Records regulations: The Federal rules restrict any use of the information to criminally investigate or prosecute any alcohol or drug abuse patient.[facility] HospitalIn the event this information is protected by the Federal Confidentiality of Alcohol and Drug Abuse Patient Records regulations: The Federal rules restrict any use of the information to criminally investigate or prosecute any alcohol or drug abuse patient.[facility] HospitalIn the event this information is protected by the Federal Confidentiality of Alcohol and Drug Abuse Patient Records regulations: The Federal rules restrict any use of the information to criminally investigate or prosecute any alcohol or drug abuse patient.[facility] HospitalIn the event this information is protected by the Federal Confidentiality of Alcohol and Drug Abuse Patient Records regulations: The Federal rules restrict any use of the information to criminally investigate or prosecute any alcohol or drug abuse patient.[facility] HospitalIn the event this information is protected by the Federal Confidentiality of Alcohol and Drug Abuse Patient Records regulations: The Federal rules restrict any use of the information to criminally investigate or prosecute any alcohol or drug abuse patient.[facility] HospitalIn the event this information is protected by the Federal Confidentiality of Alcohol and Drug Abuse Patient Records regulations: The Federal rules restrict any use of the information to criminally investigate or prosecute any alcohol or drug abuse patient.[facility] HospitalIn the event this information is protected by the Federal Confidentiality of Alcohol and Drug Abuse Patient Records regulations: The Federal rules restrict any use of the information to criminally investigate or prosecute any alcohol or drug abuse patient.[facility] HospitalIn the event this information is protected by the Federal Confidentiality of Alcohol and Drug Abuse Patient Records regulations: The Federal rules restrict any use of the information to criminally investigate or prosecute any alcohol or drug abuse patient.[facility] HospitalIn the event this information is protected by the Federal Confidentiality of Alcohol and Drug Abuse Patient Records regulations: The Federal rules restrict any use of the information to criminally investigate or prosecute any alcohol or drug abuse patient.[facility] HospitalIn the event this information is protected by the Federal Confidentiality of Alcohol and Drug Abuse Patient Records regulations: The Federal rules restrict any use of the information to criminally investigate or prosecute any alcohol or drug abuse patient.[facility] HospitalIn the event this information is protected by the Federal Confidentiality of Alcohol and Drug Abuse Patient Records regulations: The Federal rules restrict any use of the information to criminally investigate or prosecute any alcohol or drug abuse patient.[facility] HospitalIn the event this information is protected by the Federal Confidentiality of Alcohol and Drug Abuse Patient Records regulations: The Federal rules restrict any use of the information to criminally investigate or prosecute any alcohol or drug abuse patient.[facility] HospitalIn the event this information is protected by the Federal Confidentiality of Alcohol and Drug Abuse Patient Records regulations: The Federal rules restrict any use of the information to criminally investigate or prosecute any alcohol or drug abuse patient.[facility] HospitalIn the event this information is protected by the Federal Confidentiality of Alcohol and Drug Abuse Patient Records regulations: The Federal rules restrict any use of the information to criminally investigate or prosecute any alcohol or drug abuse patient.[facility] HospitalIn the event this information is protected by the Federal Confidentiality of Alcohol and Drug Abuse Patient Records regulations: The Federal rules restrict any use of the information to criminally investigate or prosecute any alcohol or drug abuse patient.[facility] HospitalIn the event this information is protected by the Federal Confidentiality of Alcohol and Drug Abuse Patient Records regulations: The Federal rules restrict any use of the information to criminally investigate or prosecute any alcohol or drug abuse patient.[facility] HospitalIn the event this information is protected by the Federal Confidentiality of Alcohol and Drug Abuse Patient Records regulations: The Federal rules restrict any use of the information to criminally investigate or prosecute any alcohol or drug abuse patient.[facility] HospitalIn the event this information is protected by the Federal Confidentiality of Alcohol and Drug Abuse Patient Records regulations: The Federal rules restrict any use of the information to criminally investigate or prosecute any alcohol or drug abuse patient.[facility] HospitalIn the event this information is protected by the Federal Confidentiality of Alcohol and Drug Abuse Patient Records regulations: The Federal rules restrict any use of the information to criminally investigate or prosecute any alcohol or drug abuse patient.[facility] HospitalIn the event this information is protected by the Federal Confidentiality of Alcohol and Drug Abuse Patient Records regulations: The Federal rules restrict any use of the information to criminally investigate or prosecute any alcohol or drug abuse patient.[facility] HospitalIn the event this information is protected by the Federal Confidentiality of Alcohol and Drug Abuse Patient Records regulations: The Federal rules restrict any use of the information to criminally investigate or prosecute any alcohol or drug abuse patient.[facility] HospitalIn the event this information is protected by the Federal Confidentiality of Alcohol and Drug Abuse Patient Records regulations: The Federal rules restrict any use of the information to criminally investigate or prosecute any alcohol or drug abuse patient.[facility] HospitalIn the event this information is protected by the Federal Confidentiality of Alcohol and Drug Abuse Patient Records regulations: The Federal rules restrict any use of the information to criminally investigate or prosecute any alcohol or drug abuse patient.[facility] HospitalIn the event this information is protected by the Federal Confidentiality of Alcohol and Drug Abuse Patient Records regulations: The Federal rules restrict any use of the information to criminally investigate or prosecute any alcohol or drug abuse patient.[facility] HospitalIn the event this information is protected by the Federal Confidentiality of Alcohol and Drug Abuse Patient Records regulations: The Federal rules restrict any use of the information to criminally investigate or prosecute any alcohol or drug abuse patient.[facility] HospitalIn the event this information is protected by the Federal Confidentiality of Alcohol and Drug Abuse Patient Records regulations: The Federal rules restrict any use of the information to criminally investigate or prosecute any alcohol or drug abuse patient.[facility] HospitalIn the event this information is protected by the Federal Confidentiality of Alcohol and Drug Abuse Patient Records regulations: The Federal rules restrict any use of the information to criminally investigate or prosecute any alcohol or drug abuse patient.[facility] HospitalIn the event this information is protected by the Federal Confidentiality of Alcohol and Drug Abuse Patient Records regulations: The Federal rules restrict any use of the information to criminally investigate or prosecute any alcohol or drug abuse patient.[facility] HospitalIn the event this information is protected by the Federal Confidentiality of Alcohol and Drug Abuse Patient Records regulations: The Federal rules restrict any use of the information to criminally investigate or prosecute any alcohol or drug abuse patient.[facility] HospitalIn the event this information is protected by the Federal Confidentiality of Alcohol and Drug Abuse Patient Records regulations: The Federal rules restrict any use of the information to criminally investigate or prosecute any alcohol or drug abuse patient.[facility] HospitalIn the event this information is protected by the Federal Confidentiality of Alcohol and Drug Abuse Patient Records regulations: The Federal rules restrict any use of the information to criminally investigate or prosecute any alcohol or drug abuse patient.[facility] HospitalIn the event this information is protected by the Federal Confidentiality of Alcohol and Drug Abuse Patient Records regulations: The Federal rules restrict any use of the information to criminally investigate or prosecute any alcohol or drug abuse patient.[facility] HospitalIn the event this information is protected by the Federal Confidentiality of Alcohol and Drug Abuse Patient Records regulations: The Federal rules restrict any use of the information to criminally investigate or prosecute any alcohol or drug abuse patient.[facility] HospitalIn the event this information is protected by the Federal Confidentiality of Alcohol and Drug Abuse Patient Records regulations: The Federal rules restrict any use of the information to criminally investigate or prosecute any alcohol or drug abuse patient.[facility] HospitalIn the event this information is protected by the Federal Confidentiality of Alcohol and Drug Abuse Patient Records regulations: The Federal rules restrict any use of the information to criminally investigate or prosecute any alcohol or drug abuse patient.[facility] HospitalIn the event this information is protected by the Federal Confidentiality of Alcohol and Drug Abuse Patient Records regulations: The Federal rules restrict any use of the information to criminally investigate or prosecute any alcohol or drug abuse patient.[facility] HospitalIn the event this information is protected by the Federal Confidentiality of Alcohol and Drug Abuse Patient Records regulations: The Federal rules restrict any use of the information to criminally investigate or prosecute any alcohol or drug abuse patient.[facility] HospitalIn the event this information is protected by the Federal Confidentiality of Alcohol and Drug Abuse Patient Records regulations: The Federal rules restrict any use of the information to criminally investigate or prosecute any alcohol or drug abuse patient.[facility] HospitalIn the event this information is protected by the Federal Confidentiality of Alcohol and Drug Abuse Patient Records regulations: The Federal rules restrict any use of the information to criminally investigate or prosecute any alcohol or drug abuse patient.[facility] HospitalIn the event this information is protected by the Federal Confidentiality of Alcohol and Drug Abuse Patient Records regulations: The Federal rules restrict any use of the information to criminally investigate or prosecute any alcohol or drug abuse patient.[facility] HospitalIn the event this information is protected by the Federal Confidentiality of Alcohol and Drug Abuse Patient Records regulations: The Federal rules restrict any use of the information to criminally investigate or prosecute any alcohol or drug abuse patient.[facility] HospitalIn the event this information is protected by the Federal Confidentiality of Alcohol and Drug Abuse Patient Records regulations: The Federal rules restrict any use of the information to criminally investigate or prosecute any alcohol or drug abuse patient.[facility] HospitalIn the event this information is protected by the Federal Confidentiality of Alcohol and Drug Abuse Patient Records regulations: The Federal rules restrict any use of the information to criminally investigate or prosecute any alcohol or drug abuse patient.[facility] HospitalIn the event this information is protected by the Federal Confidentiality of Alcohol and Drug Abuse Patient Records regulations: The Federal rules restrict any use of the information to criminally investigate or prosecute any alcohol or drug abuse patient.[facility] HospitalIn the event this information is protected by the Federal Confidentiality of Alcohol and Drug Abuse Patient Records regulations: The Federal rules restrict any use of the information to criminally investigate or prosecute any alcohol or drug abuse patient.[facility] HospitalIn the event this information is protected by the Federal Confidentiality of Alcohol and Drug Abuse Patient Records regulations: The Federal rules restrict any use of the information to criminally investigate or prosecute any alcohol or drug abuse patient.[facility] HospitalIn the event this information is protected by the Federal Confidentiality of Alcohol and Drug Abuse Patient Records regulations: The Federal rules restrict any use of the information to criminally investigate or prosecute any alcohol or drug abuse patient.[facility] HospitalIn the event this information is protected by the Federal Confidentiality of Alcohol and Drug Abuse Patient Records regulations: The Federal rules restrict any use of the information to criminally investigate or prosecute any alcohol or drug abuse patient.[facility] HospitalIn the event this information is protected by the Federal Confidentiality of Alcohol and Drug Abuse Patient Records regulations: The Federal rules restrict any use of the information to criminally investigate or prosecute any alcohol or drug abuse patient.[facility] HospitalIn the event this information is protected by the Federal Confidentiality of Alcohol and Drug Abuse Patient Records regulations: The Federal rules restrict any use of the information to criminally investigate or prosecute any alcohol or drug abuse patient.[facility] HospitalIn the event this information is protected by the Federal Confidentiality of Alcohol and Drug Abuse Patient Records regulations: The Federal rules restrict any use of the information to criminally investigate or prosecute any alcohol or drug abuse patient.[facility] HospitalIn the event this information is protected by the Federal Confidentiality of Alcohol and Drug Abuse Patient Records regulations: The Federal rules restrict any use of the information to criminally investigate or prosecute any alcohol or drug abuse patient.[facility] HospitalIn the event this information is protected by the Federal Confidentiality of Alcohol and Drug Abuse Patient Records regulations: The Federal rules restrict any use of the information to criminally investigate or prosecute any alcohol or drug abuse patient.[facility] HospitalIn the event this information is protected by the Federal Confidentiality of Alcohol and Drug Abuse Patient Records regulations: The Federal rules restrict any use of the information to criminally investigate or prosecute any alcohol or drug abuse patient.[facility] HospitalIn the event this information is protected by the Federal Confidentiality of Alcohol and Drug Abuse Patient Records regulations: The Federal rules restrict any use of the information to criminally investigate or prosecute any alcohol or drug abuse patient.[facility] HospitalIn the event this information is protected by the Federal Confidentiality of Alcohol and Drug Abuse Patient Records regulations: The Federal rules restrict any use of the information to criminally investigate or prosecute any alcohol or drug abuse patient.[facility] HospitalIn the event this information is protected by the Federal Confidentiality of Alcohol and Drug Abuse Patient Records regulations: The Federal rules restrict any use of the information to criminally investigate or prosecute any alcohol or drug abuse patient.[facility] HospitalIn the event this information is protected by the Federal Confidentiality of Alcohol and Drug Abuse Patient Records regulations: The Federal rules restrict any use of the information to criminally investigate or prosecute any alcohol or drug abuse patient.[facility] HospitalIn the event this information is protected by the Federal Confidentiality of Alcohol and Drug Abuse Patient Records regulations: The Federal rules restrict any use of the information to criminally investigate or prosecute any alcohol or drug abuse patient.[facility] HospitalIn the event this information is protected by the Federal Confidentiality of Alcohol and Drug Abuse Patient Records regulations: The Federal rules restrict any use of the information to criminally investigate or prosecute any alcohol or drug abuse patient.[facility] HospitalIn the event this information is protected by the Federal Confidentiality of Alcohol and Drug Abuse Patient Records regulations: The Federal rules restrict any use of the information to criminally investigate or prosecute any alcohol or drug abuse patient.[facility] HospitalIn the event this information is protected by the Federal Confidentiality of Alcohol and Drug Abuse Patient Records regulations: The Federal rules restrict any use of the information to criminally investigate or prosecute any alcohol or drug abuse patient.[facility] HospitalIn the event this information is protected by the Federal Confidentiality of Alcohol and Drug Abuse Patient Records regulations: The Federal rules restrict any use of the information to criminally investigate or prosecute any alcohol or drug abuse patient.[facility] HospitalIn the event this information is protected by the Federal Confidentiality of Alcohol and Drug Abuse Patient Records regulations: The Federal rules restrict any use of the information to criminally investigate or prosecute any alcohol or drug abuse patient.[facility] HospitalIn the event this information is protected by the Federal Confidentiality of Alcohol and Drug Abuse Patient Records regulations: The Federal rules restrict any use of the information to criminally investigate or prosecute any alcohol or drug abuse patient.[facility] HospitalIn the event this information is protected by the Federal Confidentiality of Alcohol and Drug Abuse Patient Records regulations: The Federal rules restrict any use of the information to criminally investigate or prosecute any alcohol or drug abuse patient.[facility] HospitalIn the event this information is protected by the Federal Confidentiality of Alcohol and Drug Abuse Patient Records regulations: The Federal rules restrict any use of the information to criminally investigate or prosecute any alcohol or drug abuse patient.[facility] HospitalIn the event this information is protected by the Federal Confidentiality of Alcohol and Drug Abuse Patient Records regulations: The Federal rules restrict any use of the information to criminally investigate or prosecute any alcohol or drug abuse patient.[facility] HospitalIn the event this information is protected by the Federal Confidentiality of Alcohol and Drug Abuse Patient Records regulations: The Federal rules restrict any use of the information to criminally investigate or prosecute any alcohol or drug abuse patient.[facility] HospitalIn the event this information is protected by the Federal Confidentiality of Alcohol and Drug Abuse Patient Records regulations: The Federal rules restrict any use of the information to criminally investigate or prosecute any alcohol or drug abuse patient.[facility] HospitalIn the event this information is protected by the Federal Confidentiality of Alcohol and Drug Abuse Patient Records regulations: The Federal rules restrict any use of the information to criminally investigate or prosecute any alcohol or drug abuse patient.[facility] HospitalIn the event this information is protected by the Federal Confidentiality of Alcohol and Drug Abuse Patient Records regulations: The Federal rules restrict any use of the information to criminally investigate or prosecute any alcohol or drug abuse patient.[facility] HospitalIn the event this information is protected by the Federal Confidentiality of Alcohol and Drug Abuse Patient Records regulations: The Federal rules restrict any use of the information to criminally investigate or prosecute any alcohol or drug abuse patient.[facility] HospitalIn the event this information is protected by the Federal Confidentiality of Alcohol and Drug Abuse Patient Records regulations: The Federal rules restrict any use of the information to criminally investigate or prosecute any alcohol or drug abuse patient.[facility] HospitalIn the event this information is protected by the Federal Confidentiality of Alcohol and Drug Abuse Patient Records regulations: The Federal rules restrict any use of the information to criminally investigate or prosecute any alcohol or drug abuse patient.[facility] HospitalIn the event this information is protected by the Federal Confidentiality of Alcohol and Drug Abuse Patient Records regulations: The Federal rules restrict any use of the information to criminally investigate or prosecute any alcohol or drug abuse patient.[facility] HospitalIn the event this information is protected by the Federal Confidentiality of Alcohol and Drug Abuse Patient Records regulations: The Federal rules restrict any use of the information to criminally investigate or prosecute any alcohol or drug abuse patient.[facility] HospitalIn the event this information is protected by the Federal Confidentiality of Alcohol and Drug Abuse Patient Records regulations: The Federal rules restrict any use of the information to criminally investigate or prosecute any alcohol or drug abuse patient.[facility] HospitalIn the event this information is protected by the Federal Confidentiality of Alcohol and Drug Abuse Patient Records regulations: The Federal rules restrict any use of the information to criminally investigate or prosecute any alcohol or drug abuse patient.[facility] HospitalIn the event this information is protected by the Federal Confidentiality of Alcohol and Drug Abuse Patient Records regulations: The Federal rules restrict any use of the information to criminally investigate or prosecute any alcohol or drug abuse patient.[facility] HospitalIn the event this information is protected by the Federal Confidentiality of Alcohol and Drug Abuse Patient Records regulations: The Federal rules restrict any use of the information to criminally investigate or prosecute any alcohol or drug abuse patient.[facility] HospitalIn the event this information is protected by the Federal Confidentiality of Alcohol and Drug Abuse Patient Records regulations: The Federal rules restrict any use of the information to criminally investigate or prosecute any alcohol or drug abuse patient.[facility] HospitalIn the event this information is protected by the Federal Confidentiality of Alcohol and Drug Abuse Patient Records regulations: The Federal rules restrict any use of the information to criminally investigate or prosecute any alcohol or drug abuse patient.[facility] HospitalIn the event this information is protected by the Federal Confidentiality of Alcohol and Drug Abuse Patient Records regulations: The Federal rules restrict any use of the information to criminally investigate or prosecute any alcohol or drug abuse patient.[facility] HospitalIn the event this information is protected by the Federal Confidentiality of Alcohol and Drug Abuse Patient Records regulations: The Federal rules restrict any use of the information to criminally investigate or prosecute any alcohol or drug abuse patient.[facility] HospitalIn the event this information is protected by the Federal Confidentiality of Alcohol and Drug Abuse Patient Records regulations: The Federal rules restrict any use of the information to criminally investigate or prosecute any alcohol or drug abuse patient.[facility] HospitalIn the event this information is protected by the Federal Confidentiality of Alcohol and Drug Abuse Patient Records regulations: The Federal rules restrict any use of the information to criminally investigate or prosecute any alcohol or drug abuse patient.[facility] HospitalIn the event this information is protected by the Federal Confidentiality of Alcohol and Drug Abuse Patient Records regulations: The Federal rules restrict any use of the information to criminally investigate or prosecute any alcohol or drug abuse patient.[facility] HospitalIn the event this information is protected by the Federal Confidentiality of Alcohol and Drug Abuse Patient Records regulations: The Federal rules restrict any use of the information to criminally investigate or prosecute any alcohol or drug abuse patient.[facility] HospitalIn the event this information is protected by the Federal Confidentiality of Alcohol and Drug Abuse Patient Records regulations: The Federal rules restrict any use of the information to criminally investigate or prosecute any alcohol or drug abuse patient.[facility] HospitalIn the event this information is protected by the Federal Confidentiality of Alcohol and Drug Abuse Patient Records regulations: The Federal rules restrict any use of the information to criminally investigate or prosecute any alcohol or drug abuse patient.[facility] HospitalIn the event this information is protected by the Federal Confidentiality of Alcohol and Drug Abuse Patient Records regulations: The Federal rules restrict any use of the information to criminally investigate or prosecute any alcohol or drug abuse patient.[facility] HospitalIn the event this information is protected by the Federal Confidentiality of Alcohol and Drug Abuse Patient Records regulations: The Federal rules restrict any use of the information to criminally investigate or prosecute any alcohol or drug abuse patient.[facility] HospitalIn the event this information is protected by the Federal Confidentiality of Alcohol and Drug Abuse Patient Records regulations: The Federal rules restrict any use of the information to criminally investigate or prosecute any alcohol or drug abuse patient.[facility] HospitalIn the event this information is protected by the Federal Confidentiality of Alcohol and Drug Abuse Patient Records regulations: The Federal rules restrict any use of the information to criminally investigate or prosecute any alcohol or drug abuse patient.[facility] HospitalIn the event this information is protected by the Federal Confidentiality of Alcohol and Drug Abuse Patient Records regulations: The Federal rules restrict any use of the information to criminally investigate or prosecute any alcohol or drug abuse patient.[facility] HospitalIn the event this information is protected by the Federal Confidentiality of Alcohol and Drug Abuse Patient Records regulations: The Federal rules restrict any use of the information to criminally investigate or prosecute any alcohol or drug abuse patient.[facility] HospitalIn the event this information is protected by the Federal Confidentiality of Alcohol and Drug Abuse Patient Records regulations: The Federal rules restrict any use of the information to criminally investigate or prosecute any alcohol or drug abuse patient.[facility] HospitalIn the event this information is protected by the Federal Confidentiality of Alcohol and Drug Abuse Patient Records regulations: The Federal rules restrict any use of the information to criminally investigate or prosecute any alcohol or drug abuse patient.[facility] HospitalIn the event this information is protected by the Federal Confidentiality of Alcohol and Drug Abuse Patient Records regulations: The Federal rules restrict any use of the information to criminally investigate or prosecute any alcohol or drug abuse patient.[facility] HospitalIn the event this information is protected by the Federal Confidentiality of Alcohol and Drug Abuse Patient Records regulations: The Federal rules restrict any use of the information to criminally investigate or prosecute any alcohol or drug abuse patient.[facility] HospitalIn the event this information is protected by the Federal Confidentiality of Alcohol and Drug Abuse Patient Records regulations: The Federal rules restrict any use of the information to criminally investigate or prosecute any alcohol or drug abuse patient.[facility] HospitalIn the event this information is protected by the Federal Confidentiality of Alcohol and Drug Abuse Patient Records regulations: The Federal rules restrict any use of the information to criminally investigate or prosecute any alcohol or drug abuse patient.[facility] HospitalIn the event this information is protected by the Federal Confidentiality of Alcohol and Drug Abuse Patient Records regulations: The Federal rules restrict any use of the information to criminally investigate or prosecute any alcohol or drug abuse patient.[facility] HospitalIn the event this information is protected by the Federal Confidentiality of Alcohol and Drug Abuse Patient Records regulations: The Federal rules restrict any use of the information to criminally investigate or prosecute any alcohol or drug abuse patient.[facility] HospitalIn the event this information is protected by the Federal Confidentiality of Alcohol and Drug Abuse Patient Records regulations: The Federal rules restrict any use of the information to criminally investigate or prosecute any alcohol or drug abuse patient.[facility] HospitalIn the event this information is protected by the Federal Confidentiality of Alcohol and Drug Abuse Patient Records regulations: The Federal rules restrict any use of the information to criminally investigate or prosecute any alcohol or drug abuse patient.[facility] HospitalIn the event this information is protected by the Federal Confidentiality of Alcohol and Drug Abuse Patient Records regulations: The Federal rules restrict any use of the information to criminally investigate or prosecute any alcohol or drug abuse patient.[facility] HospitalIn the event this information is protected by the Federal Confidentiality of Alcohol and Drug Abuse Patient Records regulations: The Federal rules restrict any use of the information to criminally investigate or prosecute any alcohol or drug abuse patient.[facility] HospitalIn the event this information is protected by the Federal Confidentiality of Alcohol and Drug Abuse Patient Records regulations: The Federal rules restrict any use of the information to criminally investigate or prosecute any alcohol or drug abuse patient.[facility] HospitalIn the event this information is protected by the Federal Confidentiality of Alcohol and Drug Abuse Patient Records regulations: The Federal rules restrict any use of the information to criminally investigate or prosecute any alcohol or drug abuse patient.[facility] HospitalIn the event this information is protected by the Federal Confidentiality of Alcohol and Drug Abuse Patient Records regulations: The Federal rules restrict any use of the information to criminally investigate or prosecute any alcohol or drug abuse patient.[facility] HospitalIn the event this information is protected by the Federal Confidentiality of Alcohol and Drug Abuse Patient Records regulations: The Federal rules restrict any use of the information to criminally investigate or prosecute any alcohol or drug abuse patient.[facility] HospitalIn the event this information is protected by the Federal Confidentiality of Alcohol and Drug Abuse Patient Records regulations: The Federal rules restrict any use of the information to criminally investigate or prosecute any alcohol or drug abuse patient.[facility] HospitalIn the event this information is protected by the Federal Confidentiality of Alcohol and Drug Abuse Patient Records regulations: The Federal rules restrict any use of the information to criminally investigate or prosecute any alcohol or drug abuse patient.[facility] HospitalIn the event this information is protected by the Federal Confidentiality of Alcohol and Drug Abuse Patient Records regulations: The Federal rules restrict any use of the information to criminally investigate or prosecute any alcohol or drug abuse patient.[facility] HospitalIn the event this information is protected by the Federal Confidentiality of Alcohol and Drug Abuse Patient Records regulations: The Federal rules restrict any use of the information to criminally investigate or prosecute any alcohol or drug abuse patient.[facility] HospitalIn the event this information is protected by the Federal Confidentiality of Alcohol and Drug Abuse Patient Records regulations: The Federal rules restrict any use of the information to criminally investigate or prosecute any alcohol or drug abuse patient.[facility] HospitalIn the event this information is protected by the Federal Confidentiality of Alcohol and Drug Abuse Patient Records regulations: The Federal rules restrict any use of the information to criminally investigate or prosecute any alcohol or drug abuse patient.[facility] HospitalIn the event this information is protected by the Federal Confidentiality of Alcohol and Drug Abuse Patient Records regulations: The Federal rules restrict any use of the information to criminally investigate or prosecute any alcohol or drug abuse patient.[facility] HospitalIn the event this information is protected by the Federal Confidentiality of Alcohol and Drug Abuse Patient Records regulations: The Federal rules restrict any use of the information to criminally investigate or prosecute any alcohol or drug abuse patient.[facility] HospitalIn the event this information is protected by the Federal Confidentiality of Alcohol and Drug Abuse Patient Records regulations: The Federal rules restrict any use of the information to criminally investigate or prosecute any alcohol or drug abuse patient.[facility] HospitalIn the event this information is protected by the Federal Confidentiality of Alcohol and Drug Abuse Patient Records regulations: The Federal rules restrict any use of the information to criminally investigate or prosecute any alcohol or drug abuse patient.[facility] HospitalIn the event this information is protected by the Federal Confidentiality of Alcohol and Drug Abuse Patient Records regulations: The Federal rules restrict any use of the information to criminally investigate or prosecute any alcohol or drug abuse patient.[facility] HospitalIn the event this information is protected by the Federal Confidentiality of Alcohol and Drug Abuse Patient Records regulations: The Federal rules restrict any use of the information to criminally investigate or prosecute any alcohol or drug abuse patient.[facility] HospitalIn the event this information is protected by the Federal Confidentiality of Alcohol and Drug Abuse Patient Records regulations: The Federal rules restrict any use of the information to criminally investigate or prosecute any alcohol or drug abuse patient.[facility] Hospital[facility] the event this information is protected by the Federal Confidentiality of Alcohol and Drug Abuse Patient Records regulations: The Federal rules restrict any use of the information to criminally investigate or prosecute any alcohol or drug abuse patient.[facility] HospitalIn the event this information is protected by the Federal Confidentiality of Alcohol and Drug Abuse Patient Records regulations: The Federal rules restrict any use of the information to criminally investigate or prosecute any alcohol or drug abuse patient.[facility] HospitalIn the event this information is protected by the Federal Confidentiality of Alcohol and Drug Abuse Patient Records regulations: The Federal rules restrict any use of the information to criminally investigate or prosecute any alcohol or drug abuse patient.[facility] HospitalIn the event this information is protected by the Federal Confidentiality of Alcohol and Drug Abuse Patient Records regulations: The Federal rules restrict any use of the information to criminally investigate or prosecute any alcohol or drug abuse patient.[facility] HospitalIn the event this information is protected by the Federal Confidentiality of Alcohol and Drug Abuse Patient Records regulations: The Federal rules restrict any use of the information to criminally investigate or prosecute any alcohol or drug abuse patient.[facility] Reason for Visit (unrecogniz ed section and content) Reason Comments Established Patient RLS, MAURICE Specialty Diagnoses / Procedures Referred By Contac t Referred To Contact Diagnoses Restless legs Procedures CONSULT TO SLEEP MEDICINE - ADULT NEW PATIENT VISIT LEVEL 5 Helen Chapa MD [address] [place] [address] Referral ID Status Reason Start Date Expiration Date V isits Requested Visits Authorized [id number] Closed PCP Requested Referral 07/14/2021 07/14/2022 1 [...] NEW HIGH MDM 60-74 MINUTES Екатерина Escalante APRN.RUBY ON RAILS DEVELOPER [address] [place] [address] Referral ID Status Reason Start Date Expiration Date V isits Requested Visits Authorized [id number] Closed PCP Requested Referral 09/03/2021 09/03/2022 1 [...] NEW PATIENT VISIT LEVEL 5 Francesco Castrejon, PAPER TESTER.[employer] RAILS DEVELOPER [address] [place] [address] Referral ID Status Reason Start Date Expiration Date V isits Requested Visits Authorized [id number] Closed PCP Requested Referral 04/22/2021 04/22/2022 1 [...] pablo Referred To Contact Nutrition / [facility] Diagnoses Class 3 severe obesity without serious comorbidity with body mass index (BMI) of... Weight loss counseling, encounter for [Z71.3] Gastroesophageal reflux disease with esophagitis, unspecified whether hemorrhage... Type 2 diabetes mellitus with other specified complication, without long-term cu... Procedures EST DDI NUTRITION Екатерина Escalante, GREG.[employer] RAILS DEVELOPER [address] [place] [address] Radha High, RD [address] [place] [address] Referral ID Status Reason Start Date Expiration Date V isits Requested Visits Authorized [id number] Pending Review 01/17/2022 04/17/2022 1 1 Reason [...] Teams (unrecognized sec tion and content) Core Shaper Relationship Specialty Start Date End Date Helen Chapa MD [address] [place], [place] [id number] PCP - General Internal Medicine 08/26/19 Core Shaper Relationship Specialty Start Date End Date Helen Chapa MD [address] [place], [place] [id number] PCP - General Internal Medicine 08/26/19 Roman Knott jeweler apprenticeHost/Hostess Restaurant Internal Medicine 11/18/21 Core Shaper Relationship Specialty Start Date End Date Helen Chapa MD [address] [place], [place] [id number] PCP - General Internal Medicine 08/26/19 Roman Knott, jeweler apprenticeHost/[employer]ess Restaurant Internal Medicine 11/18/21 Core Shaper Relationship Specialty Start Date End Date Helen Chapa MD [address] [facility] [place] [address] PCP - General Internal Medicine 08/26/19 Roman Knott, jeweler apprenticeHost/[employer]ess Restaurant Internal Medicine 11/18/21 Core Shaper Relationship Specialty Start Date End Date Helen Chapa MD [address] [facility] [place] [address] PCP - General Internal Medicine 08/26/19 Roman Knott, jeweler apprenticeHost/[employer]ess Restaurant Internal Medicine 11/18/21 Core Shaper Relationship Specialty Start Date End Date Helen Chapa MD [address] [facility] [place] [address] PCP - General Internal Medicine 08/26/19 Roman Knott, jeweler apprenticeHost/[employer]ess Restaurant Internal Medicine 11/18/21 Core Shaper Relationship Specialty Start Date End Date Helen Chapa MD [address] [facility] [place] [address] PCP - General Internal Medicine 08/26/19 Roman Knott, jeweler apprenticeHost/[employer]ess Restaurant Internal Medicine 11/18/21 Core Shaper Relationship Specialty Start Date End Date Helen Chapa MD [address] [facility] [place] [address] PCP - General Internal Medicine 08/26/19 Roman Knott, jeweler apprenticeHost/[employer]ess Restaurant Internal Medicine 11/18/21 Core Shaper Relationship Specialty Start Date End Date Helen Chapa MD [address] [facility] [place] [address] PCP - General Internal Medicine 08/26/19 Roman Knott, jeweler apprenticeHost/[employer] Restaurant Internal Medicine 11/18/21 Core Shaper Relationship Specialty Start Date End Date Helen Chapa MD [address] [place] [address] PCP - General Internal Medicine 08/26/19 Roman Knott, jeweler apprenticeHost/[employer] Restaurant Internal Medicine 11/18/21 Core Shaper Relationship Specialty Start Date End Date Helen Chapa MD [address] [facility] [place] [address] PCP - General Internal Medicine 08/26/19 Roman Knott, jeweler apprenticeHost/[employer]ess Restaurant Internal Medicine 11/18/21 Core Shaper Relationship Specialty Start Date End Date Helen Chapa MD [address] [facility] [place] [address] PCP - General Internal Medicine 08/26/19 Roman Knott, jeweler apprenticeHost/[employer] Restaurant Internal Medicine 11/18/21 Core Shaper Relationship Specialty Start Date End Date Helen Chapa MD [address] [facility] [place] [address] PCP - General Internal Medicine 08/26/19 Roman Knott, jeweler apprenticeHost/[employer] Restaurant Internal Medicine 11/18/21 Core Shaper Relationship Specialty Start Date End Date Helen Chapa MD [address] [place] [address] PCP - General Internal Medicine 08/26/19 Roman Knott, jeweler apprenticeHost/[employer] Restaurant Internal Medicine 11/18/21 Core Shaper Relationship Specialty Start Date End Date Helen Chapa MD [address] [place] [address] PCP - General Internal Medicine 08/26/19 Roman Knott, jeweler apprenticeHost/[employer] Restaurant Internal Medicine 11/18/21 Core Shaper Relationship Specialty Start Date End Date Helen Chapa MD [address] [place] [address] PCP - General Internal Medicine 08/26/19 Roman Knott, jeweler apprenticeHost/[employer] Restaurant Internal Medicine 11/18/21 Core Shaper Relationship Specialty Start Date End Date Helen Chapa MD [address] [facility] [place] [address] PCP - General Internal Medicine 08/26/19 Roman Knott, jeweler apprenticeHost/[employer]ess Restaurant Internal Medicine 11/18/21 Core Shaper Relationship Specialty Start Date End Date Helen Chapa MD [address] [facility] [place] [address] PCP - General Internal Medicine 08/26/19 Roman Knott, jeweler apprenticeHost/[employer]ess Restaurant Internal Medicine 11/18/21 Core Shaper Relationship Specialty Start Date End Date Helen Chapa MD [address] [facility] [place] [address] PCP - General Internal Medicine 08/26/19 Roman Knott, jeweler apprenticeHost/Hostess Restaurant Internal Medicine 11/18/21 Core Shaper Relationship Specialty Start Date End Date Helen Chapa MD [address] [facility] [place] [address] PCP - General Internal Medicine 08/26/19 Roman Knott, jeweler apprenticeHost/[employer]ess Restaurant Internal Medicine 11/18/21 Core Shaper Relationship Specialty Start Date End Date Helen Chapa MD [address] [facility] [place] [address] PCP - General Internal Medicine 08/26/19 Roman Knott, jeweler apprenticeHost/Hostess Restaurant Internal Medicine 11/18/21 Core Shaper Relationship Specialty Start Date End Date Helen Chapa MD [address] [facility] [place] [address] PCP - General Internal Medicine 08/26/19 Roman Knott, jeweler apprenticeHost/Hostess Restaurant Internal Medicine 11/18/21 Core Shaper Relationship Specialty Start Date End Date Helen Chapa MD [address] [facility] [place] [address] PCP - General Internal Medicine 08/26/19 Roman Knott, jeweler apprenticeHost/Hostess Restaurant Internal Medicine 11/18/21 Core Shaper Relationship Specialty Start Date End Date Helen Chapa MD [address] [facility] [place] [address] PCP - General Internal Medicine 08/26/19 Roman Knott, jeweler apprenticeHost/Hostess Restaurant Internal Medicine 11/18/21 Core Shaper Relationship Specialty Start Date End Date Helen Chapa MD [address] [facility] [place] [address] PCP - General Internal Medicine 08/26/19 Roman Knott, jeweler apprenticeHost/Hostess Restaurant Internal Medicine 11/18/21 Core Shaper Relationship Specialty Start Date End Date Helen Chapa MD [address] [facility] [place] [address] PCP - General Internal Medicine 08/26/19 Roman Knott, jeweler apprenticeHost/[employer]ess Restaurant Internal Medicine 11/18/21 Core Shaper Relationship Specialty Start Date End Date Helen Chapa MD [address] [facility] [place] [address] PCP - General Internal Medicine 08/26/19 Hedy Owens, jeweler apprenticeHost/Hostess Restaurant Internal Medicine 11/18/21 Core Shaper Relationship Specialty Start Date End Date Helen Chapa MD [address] [facility] [place] [address] PCP - General Internal Medicine 08/26/19 Hedy Owens, jeweler apprenticeHost/Hostess Restaurant Internal Medicine 11/18/21 Core Shaper Relationship Specialty Start Date End Date Helen Chapa MD [address] [facility] [place] [address] PCP - General Internal Medicine 08/26/19 Hedy Owens, jeweler apprenticeHost/Hostess Restaurant Internal Medicine 11/18/21 Core Shaper Relationship Specialty Start Date End Date Helen Chapa MD [address] [facility] [place] [address] PCP - General Internal Medicine 08/26/19 Hedy Owens, jeweler apprenticeHost/Hostess Restaurant Internal Medicine 11/18/21 Core Shaper Relationship Specialty Start Date End Date Helen Chapa MD [address] [facility] [place] [address] PCP - General Internal Medicine 08/26/19 Hedy Owens, jeweler apprenticeHost/Hostess Restaurant Internal Medicine 11/18/21 Core Shaper Relationship Specialty Start Date End Date Helen Chapa MD [address] [facility] [place] [address] PCP - General Internal Medicine 08/26/19 Hedy Owens, jeweler apprenticeHost/Hostess Restaurant Internal Medicine 11/18/21 Core Shaper Relationship Specialty Start Date End Date Helen Chapa MD [address] [facility] [place] [address] PCP - General Internal Medicine 08/26/19 Hedy Owens, jeweler apprenticeHost/[employer]ess Restaurant Internal Medicine 11/18/21 Core Shaper Relationship Specialty Start Date End Date Helen Chapa MD [address] [facility] [place] [address] PCP - General Internal Medicine 08/26/19 Hedy Owens, jeweler apprenticeHost/[employer] Restaurant Internal Medicine 11/18/21 Core Shaper Relationship Specialty Start Date End Date Helen Chapa MD [address] [facility] [place] [address] PCP - General Internal Medicine 08/26/19 Hedy Owens, jeweler apprenticeHost/[employer] Restaurant Internal Medicine 11/18/21 Core Shaper Relationship Specialty Start Date End Date Helen Chapa MD [address] [facility] [place] [address] PCP - General Internal Medicine 08/26/19 Hedy Owens, jeweler apprenticeHost/Hostess Restaurant Internal Medicine 11/18/21 Core Shaper Relationship Specialty Start Date End Date Helen Chapa MD [address] [facility] [place] [address] PCP - General Internal Medicine 08/26/19 Hedy Owens, jeweler apprenticeHost/Hostess Restaurant Internal Medicine 11/18/21 Core Shaper Relationship Specialty Start Date End Date Helen Chapa MD [address] [facility] [place] [address] PCP - General Internal Medicine 08/26/19 Hedy Owens, jeweler apprenticeHost/Hostess Restaurant Internal Medicine 11/18/21 Core Shaper Relationship Specialty Start Date End Date Helen Chapa MD [address] [facility] [place] [address] PCP - General Internal Medicine 08/26/19 Hedy Owens, jeweler apprenticeHost/Hostess Restaurant Internal Medicine 11/18/21 Core Shaper Relationship Specialty Start Date End Date Helen Chapa MD [address] [facility] [place] [address] PCP - General Internal Medicine 08/26/19 Hedy Owens, jeweler apprenticeHost/[employer]ess Restaurant Internal Medicine 11/18/21 Team Status: Active Member Role Status Dates Dr. Helen Chapa MD Primary Care Provider Active Team Status: Inactive Member Role Status Dates Dr. Helen Chapa MD Primary Care Provider, Referring Provider Active Dr. Paool Fitch MD Attending Provider Active Team Status: Inactive Member Role Status Dates Dr. Helen Chapa MD Primary Care Provider Active YOBANY BUCKLEY Attending Provider, Referring Provide r Active Core Shaper Relationship Specialty Start Date End Date Helen Chapa MD [address] [facility] [place] [address] PCP - General Internal Medicine 08/26/19 Hedy Owens, jeweler apprenticeHost/Hostess Restaurant Internal Medicine 11/18/21 Core Shaper Relationship Specialty Start Date End Date Helen Chapa MD [address] [place] [address] PCP - General Internal Medicine 08/26/19 Hedy Owens, jeweler apprenticeHost/Hostess Restaurant Internal Medicine 11/18/21 Core Shaper Relationship Specialty Start Date End Date Helen Chapa MD [address] [place] [address] PCP - General Internal Medicine 08/26/19 Hedy Owens, jeweler apprenticeHost/[employer]ess Restaurant Internal Medicine 11/18/21 Core Shaper Relationship Specialty Start Date End Date Helen Chapa MD [address] [place] [address] PCP - General Internal Medicine 08/26/19 Hedy Owens, jeweler apprenticeHost/[employer]ess Restaurant Internal Medicine 11/18/21 Core Shaper Relationship Specialty Start Date End Date Helen Chapa MD [address] [place] [address] PCP - General Internal Medicine 08/26/19 Hedy Owens, jeweler apprenticeHost/[employer]ess Restaurant Internal Medicine 11/18/21 Core Shaper Relationship Specialty Start Date End Date Helen Chapa MD [address] [place] [address] PCP - General Internal Medicine 08/26/19 Hedy Owens, jeweler apprenticeHost/[employer]ess Restaurant Internal Medicine 11/18/21 Marco Hernandez MD [address] [place] [id number] Home Care Provider Orthopedics 03/16/23 Christiano Loya PA-C [address] [place] [address] Referring Orthopedics 03/16/23 Leonor Funes, PT [address] [place] [address] Intelligent Systems Engineer Post Acute Care 03/16/23 Core Shaper Relationship Specialty Start Date End Date Helen Chapa MD [address] [place] [address] PCP - General Internal Medicine 08/26/19 Hedy Owens, jeweler apprenticeHost/Hostess Restaurant Internal Medicine 11/18/21 Marco Hernandez MD [address] [place] [address] Home Care Provider Orthopedics 03/16/23 Christiano Loya PA-C [address] [place] [address]83 Referring Orthopedics 03/16/23 Leonor Funes, PT [address] [place] [address] Intelligent Systems Engineer Post Acute Care 03/16/23 Core Shaper Relationship Specialty Start Date End Date Helen Chapa MD [address] [place] [address] PCP - General Internal Medicine 08/26/19 Hedy Owens RN Host/Hostess Restaurant Internal Medicine 11/18/21 Marco Hernandez MD [address] [place] [address] Home Care Provider Orthopedics 03/16/23 Christiano Loya PA-C [address] [place] [address] 51433 Referring Orthopedics 03/16/23 Leonor Funes, PT [address] [place] [address] Intelligent Systems Engineer Post Acute Care 03/16/23 Core Shaper Relationship Specialty Start Date End Date Helen Chapa MD [address] [place] [address] PCP - General Internal Medicine 08/26/19 Hedy Owens, jeweler apprenticeHost/Hostess Restaurant Internal Medicine 11/18/21 Marco Hernandez MD [address] [address] Home Care Provider Orthopedics 03/16/23 Christiano Loya PA-C [address] [place] [address] 28184 Referring Orthopedics 03/16/23 Leonor Funes, PT [address] [place], [place] [id number] Intelligent Systems Engineer Post Acute Care 03/16/23 Core Shaper Relationship Specialty Start Date End Date Helen Chapa MD [address] [place] [address] PCP - General Internal Medicine 08/26/19 Hedy Owens, jeweler apprenticeHost/Hostess Restaurant Internal Medicine 11/18/21 Marco Hernandez MD [address] [place] [address]012 Home Care Provider Orthopedics 03/16/23 Christiano Loya PA-C [address] [place] [address] Referring Orthopedics 03/16/23 Leonor Funes, PT [address] [place], [place] [id number] Intelligent Systems Engineer Post Acute Care 03/16/23 Core Shaper Relationship Specialty Start Date End Date Helen Chapa MD [address] [place] [address] PCP - General Internal Medicine 08/26/19 Hedy Owens, jeweler apprenticeHost/Hostess Restaurant Internal Medicine 11/18/21 Marco Hernandez MD [address] [address] Home Care Provider Orthopedics 03/16/23 Christiano Loya PA-C [address] [place] [address] Referring Orthopedics 03/16/23 Leonor Funes, PT [address] [place] [address] Intelligent Systems Engineer Post Acute Care 03/16/23 Core Shaper Relationship Specialty Start Date End Date Helen Chapa MD [address] [place] [address] PCP - General Internal Medicine 08/26/19 Hedy Owens RN Host/Hostess Restaurant Internal Medicine 11/18/21 Marco Hernandez MD [address] [address] Home Care Provider Orthopedics 03/16/23 Christiano Loya PA-C [address] [place] [address] Referring Orthopedics 03/16/23 Core Shaper Relationship Specialty Start Date End Date Helen Chapa MD [address] [place] [address] PCP - General Internal Medicine 08/26/19 Hedy Owens, jeweler apprenticeHost/Hostess Restaurant Internal Medicine 11/18/21 Marco Hernandez MD [address] [address] Home Care Provider Orthopedics 03/16/23 Christiano Loya PA-C [address] [place] [address]846 Referring Orthopedics 03/16/23 Core Shaper Relationship Specialty Start Date End Date Helen Chapa MD [address] [place] [address] PCP - General Internal Medicine 08/26/19 Hedy Owens, jeweler apprenticeHost/Hostess Restaurant Internal Medicine 11/18/21 Marco Hernandez MD [address] [place] [address] Home Care Provider Orthopedics 03/16/23 Christiano Loya PA-C [address] [place] [address] Referring Orthopedics 03/16/23 Core Shaper Relationship Specialty Start Date End Date Helen Chapa MD [address] [place] [address] PCP - General Internal Medicine 08/26/19 Hedy Owens, jeweler apprenticeHost/Hostess Restaurant Internal Medicine 11/18/21 Marco Hernandez MD [address] [address] Home Care Provider Orthopedics 03/16/23 Christiano Loya PA-C [address] [place] [address]61 Referring Orthopedics 03/16/23 Core Shaper Relationship Specialty Start Date End Date Helen Chapa MD [address] [place] [address] PCP - General Internal Medicine 08/26/19 Hedy Owens, jeweler apprenticeHost/Hostess Restaurant Internal Medicine 11/18/21 Marco Hernandez MD [address] [place] [address] Home Care Provider Orthopedics 03/16/23 Christiano Loya PA-C [address] [place] [address] Referring Orthopedics 03/16/23 Core Shaper Relationship Specialty Start Date End Date Helen Chapa MD [address] [place] [address] PCP - General Internal Medicine 08/26/19 Hedy Owens, jeweler apprenticeHost/Hostess Restaurant Internal Medicine 11/18/21 Marco Hernandez MD [address] [place] [address] Home Care Provider Orthopedics 03/16/23 Christiano Loya PA-C [address] [place] [address] Referring Orthopedics 03/16/23 Core Shaper Relationship Specialty Start Date End Date Helen Chapa MD [address] [place] [address] PCP - General Internal Medicine 08/26/19 Hedy Owens, jeweler apprenticeHost/Hostess Restaurant Internal Medicine 11/18/21 Marco Hernandez MD [address] [place] [address] Home Care Provider Orthopedics 03/16/23 Christiano Loya PA-C [address] [place] [address] Referring Orthopedics 03/16/23 Core Shaper Relationship Specialty Start Date End Date Helen Chapa MD [address] [place] [address] PCP - General Internal Medicine 08/26/19 Hedy Owens, jeweler apprenticeHost/Hostess Restaurant Internal Medicine 11/18/21 Core Shaper Relationship Specialty Start Date End Date Helen Chapa MD [address] [place] [address] PCP - General Internal Medicine 08/26/19 Hedy Owens, jeweler apprenticeHost/Hostess Restaurant Internal Medicine 11/18/21 Marco Hernandez MD [address] [place] [address] Home Care Provider Orthopedics 03/16/23 Christiano Loya PA-C [address] [place] [address]61 Referring Orthopedics 03/16/23 Core Shaper Relationship Specialty Start Date End Date Helen Chapa MD [facility] [place] [place] [address] PCP - General Internal Medicine 08/26/19 Hedy Owens, jeweler apprenticeHost/Hostess Restaurant Internal Medicine 11/18/21 Marco Hernandez MD [address] [place] [address] Home Care Provider Orthopedics 03/16/23 Christiano Loya PA-C [address] [place] [address] 96386 Referring Orthopedics 03/16/23 Leonor Funes, PT [address] [place] [address] Intelligent Systems Engineer Post Acute Care 03/16/23 04/05/23 Core Shaper Relationship Specialty Start Date End Date Helen Chapa MD [address] [place], [place] 104671 PCP - General Internal Medicine 08/26/19 Hedy Owens, jeweler apprenticeHost/Hostess Restaurant Internal Medicine 11/18/21 Core Shaper Relationship Specialty Start Date End Date Helen Chapa MD [address] [place] [address] PCP - General Internal Medicine 08/26/19 Hedy Owens, jeweler apprenticeHost/Hostess Restaurant Internal Medicine 11/18/21 Marco Hernandez MD [address] [place] [address] [phone] Home Care Provider Orthopedics 03/16/23 Christiano Loya PA-C [address] [place] [address] Referring Orthopedics 03/16/23 Core Shaper Relationship Specialty Start Date End Date Helen Chapa MD [address] [place] [address] PCP - General Internal Medicine 08/26/19 Hedy Owens, jeweler apprenticeHost/Hostess Restaurant Internal Medicine 11/18/21 Marco Hernandez MD [address] [place] [address] 11361 Home Care Provider Orthopedics 03/16/23 Christiano Loya PA-C [address] [place] [address]18 Referring Orthopedics 03/16/23 Core Shaper Relationship Specialty Start Date End Date Helen Chapa MD [address] [place] [address] PCP - General Internal Medicine 08/26/19 Hedy Owens, jeweler apprenticeHost/Hostess Restaurant Internal Medicine 11/18/21 Marco Hernandez MD [address] [place] [address] Home Care Provider Orthopedics 03/16/23 Christiano Loya PA-C [address] [place] [address] 61633 Referring Orthopedics 03/16/23 Core Shaper Relationship Specialty Start Date End Date Helen Chapa MD [address] [place] [address] PCP - General Internal Medicine 08/26/19 Hedy Owens, jeweler apprenticeHost/Hostess Restaurant Internal Medicine 11/18/21 Marco Hernandez MD [address] [place] [address] Home Care Provider Orthopedics 03/16/23 Christiano Loya PA-C [address] [place] [address] 49082 Referring Orthopedics 03/16/23 Team Status: Inactive Member Role Status Dates Dr. Helen Chapa MD Primary Care Provider, Referring Provider Active Payton Bruno PIN DRAFTER OPERATOR, PIN DRAFTER OPERATOR-C Attending Provider Active Team Status: Inactive Member Role Status Dates Dr. Helen Chapa MD Primary Care Provider Active Bahman Gannon PIN DRAFTER OPERATOR, PIN DRAFTER OPERATOR-C Attending Provider, Referring Pro vider Active Core Shaper Relationship Specialty Start Date End Date Helen Chapa MD [address] [place] [address] PCP - General Internal Medicine 08/26/19 Hedy Owens, jeweler apprenticeHost/Hostess Restaurant Internal Medicine 11/18/21 Marco Hernandez MD [address] [place] [address] [phone] Home Care Provider Orthopedics 03/16/23 Christiano Loya PA-C [address] [place] [address] 35326 Referring Orthopedics 03/16/23 Core Shaper Relationship Specialty Start Date End Date Helen Chapa MD [address] [place] [address] PCP - General Internal Medicine 08/26/19 Hedy Owens, jeweler apprenticeHost/Hostess Restaurant Internal Medicine 11/18/21 Marco Hernandez MD [address] [place] [address] [phone] Home Care Provider Orthopedics 03/16/23 Christiano Loya PA-C [address] [place] [address] [phone] Referring Orthopedics 03/16/23 Team Status: Active Member Role Status Dates Dr. Helen Chapa MD Primary Care Provider Active Payton Bruno PIN DRAFTER OPERATOR, PIN DRAFTER OPERATOR-C Referring Provider, Other Provi shelley Active Dr. Paolo Fitch MD Attending Provider Active Team Status: Active Member Role Status Dates Dr. Helen Chapa MD Primary Care Provider Active Paytno Bruno PIN DRAFTER OPERATOR, PIN DRAFTER OPERATOR-C Attending Provider Active Team Status: Inactive Member Role Status Dates Dr. Helen Chapa MD Primary Care Provider Active Payton Bruno PIN DRAFTER OPERATOR, PIN DRAFTER OPERATOR-C Attending Provider, Referring P rokeyshawn Active Core Shaper Relationship Specialty Start Date End Date Helen Chapa MD [address] [place] [address] PCP - General Internal Medicine 08/26/19 Hedy Owens RN Host/Hostess Restaurant Internal Medicine 11/18/21 Marco Hernandez MD [address] [place] [address] 13345 Home Care Provider Orthopedics 03/16/23 Christiano Loya PA-C [address] [place] [address] [phone] Referring Orthopedics 03/16/23 Core Shaper Relationship Specialty Start Date End Date Helen Chapa MD [address] [place] [address] PCP - General Internal Medicine 08/26/19 Marco Hernandez MD [address] [place] [address] 38534 Home Care Provider Orthopedics 03/16/23 Christiano Loya PA-C [address] [place] [address] 15013 Referring Orthopedics 03/16/23 Core Shaper Relationship Specialty Start Date End Date Helen Chapa MD [address] [place] [address] PCP - General Internal Medicine 08/26/19 Marco Hernandez MD [address] [place] [address] 65471 Home Care Provider Orthopedics 03/16/23 Christiano Loya PA-C [address] [place] [address] [phone] Referring Orthopedics 03/16/23 Core Shaper Relationship Specialty Start Date End Date Helen Chapa MD [address] [place] [address] PCP - General Internal Medicine 08/26/19 Marco Hernandez MD [address] [place] [address] 93847 Home Care Provider Orthopedics 03/16/23 Christiano Loya PA-C [address] [place] [address] [phone] Referring Orthopedics 03/16/23 Core Shaper Relationship Specialty Start Date End Date Helen Chapa MD [address] [place] [address] PCP - General Internal Medicine 08/26/19 Marco Hernandez MD [address] [place] [address] 02216 Home Care Provider Orthopedics 03/16/23 Christiano Loya PA-C [address] [place] [address] [phone] Referring Orthopedics 03/16/23 Core Shaper Relationship Specialty Start Date End Date Helen Chapa MD [address] [place] [address] PCP - General Internal Medicine 08/26/19 Marco Hernandez MD [address] [place] [address] 44598 Home Care Provider Orthopedics 03/16/23 Christiano Loya PA-C [address] [place] [address] 17289 Referring Orthopedics 03/16/23 Core Shaper Relationship Specialty Start Date End Date Helen Chapa MD [address] [place] [address] PCP - General Internal Medicine 08/26/19 Marco Hernandez MD [address] [place] [address] 80581 Home Care Provider Orthopedics 03/16/23 Christiano Loya PA-C [address] [place] [address] 84236 Referring Orthopedics 03/16/23 Core Shaper Relationship Specialty Start Date End Date Helen Chapa MD [address] [place] [address] PCP - General Internal Medicine 08/26/19 Marco Hernandez MD [address] [place] [address] 53359 Home Care Provider Orthopedics 03/16/23 Christiano Loya PA-C [address] [place] [address] 76025 Referring Orthopedics 03/16/23 Core Shaper Relationship Specialty Start Date End Date Helen Chapa MD [address] [place] [address] PCP - General Internal Medicine 08/26/19 Marco Hernandez MD [address] [place] [address] 38088 Home Care Provider Orthopedics 03/16/23 Christiano Loya PA-C [address] [place] [address] 18562 Referring Orthopedics 03/16/23 Core Shaper Relationship Specialty Start Date End Date Helen Chapa MD [address] [place] [address] PCP - General Internal Medicine 08/26/19 Core Shaper Relationship Specialty Start Date End Date Helen Chapa MD [address] [place] [address] PCP - General Internal Medicine 08/26/19 Core Shaper Relationship Specialty Start Date End Date Helen Chapa MD [address] [place] [address] PCP - General Internal Medicine 08/26/19 Core Shaper Relationship Specialty Start Date End Date Helen Chapa MD [address] [place] [address] PCP - General Internal Medicine 08/26/19 Marco Hernandez MD [address] [place] [address] 99048 Home Care Provider Orthopedics 03/16/23 Christiano Loya PA-C [address] [place] [address] [phone] Referring Orthopedics 03/16/23 Core Shaper Relationship Specialty Start Date End Date Helen Chapa MD [address] [place] [address] PCP - General Internal Medicine 08/26/19 Marco Hernandez MD [address] [place] [address] 49500 Home Care Provider Orthopedics 03/16/23 Christiano Loya PA-C [address] [place] [address] [phone] Referring Orthopedics 03/16/23 Core Shaper Relationship Specialty Start Date End Date Helen Chapa MD [address] [place] [address] PCP - General Internal Medicine 08/26/19 Marco Hernandez MD [address] [place] [address] 74912 Home Care Provider Orthopedics 03/16/23 Christiano Loya PA-C [address] [place] [address] Referring Orthopedics 03/16/23 Karen Mejia PA-C [address] [place], [place] [phone] Sheet Metal Superintendent Family Medicine 07/21/24 Екатерина Escalante APRN.RUBY ON RAILS DEVELOPER [address] [place] [address] Sheet Metal Superintendent Internal Medicine 07/21/24 Suzy Calix PA-C [address] [place] [address] [facility] 07/21/24 Core Shaper Relationship Specialty Start Date End Date Helen Chapa MD [address] [place] [address] PCP - General Internal Medicine 08/26/19 Marco Hernandez MD [address] [phone] Home Care Provider Orthopedics 03/16/23 Christiano Loya PA-C [address] [place], [place] [phone] Referring Orthopedics 03/16/23 Karen Mejia PA-C [address] [place] [address] Sheet Metal Superintendent Family Medicine 07/21/24 Екатерина Escalante APRN.RUBY ON RAILS DEVELOPER [address] [place] [address] Sheet Metal Superintendent Internal Medicine 07/21/24 Suzy Calix PA-C [address] [place] [address] Sheet Metal Superintendent Family Medicine 07/21/24 Core Shaper Relationship Specialty Start Date End Date Helen Chapa MD [address] [place] [address] PCP - General Internal Medicine 08/26/19 Marco Hernandez MD [address] [place] [address] 89813 Home Care Provider Orthopedics 03/16/23 Christiano Loya PA-C [address] [place] [address] [phone] Referring Orthopedics 03/16/23 Karen Mejia PA-C [address] [place] [address] Sheet Metal Superintendent Family Medicine 07/21/24 Екатерина Escalante APRN.RUBY ON RAILS DEVELOPER [address] [place] [address] Sheet Metal Superintendent Internal Medicine 07/21/24 Suzy Calix PA-C [address] [place] [address] Sheet Metal Superintendent Family Medicine 07/21/24 Core Shaper Relationship Specialty Start Date End Date Helen Chapa MD [address] [place] [address] PCP - General Internal Medicine 08/26/19 Marco Hernandez MD [address] [place] [address] 16306 Home Care Provider Orthopedics 03/16/23 Christiano Loya PA-C [address] [place] [address] [phone] Referring Orthopedics 03/16/23 Karen Mejia PA-C [address] [place] [address] Sheet Metal Superintendent Family Medicine 07/21/24 Екатерина Escalante APRN.RUBY ON RAILS DEVELOPER [address] [place] [address] Sheet Metal Superintendent Internal Medicine 07/21/24 Suzy Calix PA-C [address] [place] [address] Sheet Metal Superintendent Family [facility] 07/21/24 Core Shaper Relationship Specialty Start Date End Date Helen Chapa MD [facility] [place] [address] PCP - General Internal Medicine 08/26/19 Marco Hernandez MD [address] [place] [address] [phone] Home Care Provider Orthopedics 03/16/23 Christiano Loya PA-C [address] [place] [address] [phone] Referring Orthopedics 03/16/23 Karen Mejia PA-C [address] [place] [address] 84396 Sheet Metal Superintendent Family Medicine 07/21/24 Екатерина Escalante APRN.RUBY ON RAILS DEVELOPER [address] [place] [address] Sheet Metal Superintendent Internal Medicine 07/21/24 Suzy Calix PA-C [address] [place] [address] Sheet Metal Superintendent Family Medicine 07/21/24 Core Shaper Relationship Specialty Start Date End Date Helen Chapa MD [address] [place] [address] PCP - General Internal Medicine 08/26/19 Marco Hernandez MD [address] [place] [address] 34541 Home Care Provider Orthopedics 03/16/23 Christiano Loya PA-C [address] [place] [address] [phone] Referring Orthopedics 03/16/23 Екатерина Escalante APRN.RUBY ON RAILS DEVELOPER [address] [place] [address] Sheet Metal Superintendent Internal Medicine 07/21/24 Core Shaper Relationship Specialty Start Date End Date Helen Chapa MD [facility] [place] [address] PCP - General Internal Medicine 08/26/19 Marco Hernandez MD [address] [place] [address] 35667 Home Care Provider Orthopedics 03/16/23 Christiano Loya PA-C [address] [place] [address] [phone] Referring Orthopedics 03/16/23 Екатерина Escalante APRN.RUBY ON RAILS DEVELOPER [address] [place] [address] Sheet Metal Superintendent Internal Medicine 07/21/24 Core Shaper Relationship Specialty Start Date End Date Helen Chapa MD [address] [place] [address] PCP - General Internal Medicine 08/26/19 Marco Hernandez MD [address] [place] [address] 51966 Home Care Provider Orthopedics 03/16/23 Christiano Loya PA-C [address] [place] [address] 25797 Referring Orthopedics 03/16/23 Екатерина Escalante APRN.RUBY ON RAILS DEVELOPER [address] [place] [address] Sheet Metal Superintendent Internal Medicine 07/21/24 Core Shaper Relationship Specialty Start Date End Date Helen Chapa MD [facility] [place] [address] PCP - General Internal Medicine 08/26/19 Marco Hernandez MD [address] [place] [address] 85963 Home Care Provider Orthopedics 03/16/23 Christiano Loya PA-C [address] [place] [address] 90010 Referring Orthopedics 03/16/23 Екатерина Escalante APRN.RUBY ON RAILS DEVELOPER [address] [place] [address] Sheet Metal Superintendent Internal Medicine 07/21/24 Core Shaper Relationship Specialty Start Date End Date Helen Chapa MD [address] [place] [address] PCP - General Internal Medicine 08/26/19 Marco Hernandez MD [address] [place] [address] 83459 Home Care Provider Orthopedics 03/16/23 Christiano Loya PA-C [address] [place] [address] [phone] Referring Orthopedics 03/16/23 Екатерина Escalante APRN.RUBY ON RAILS DEVELOPER [address] [place] [address] Sheet Metal Superintendent Internal Medicine 07/21/24 Core Shaper Relationship Specialty Start Date End Date Helen Chapa MD [address] [place] [address] PCP - General Internal Medicine 08/26/19 Marco Hernandez MD [address] [place] [address] 27941 Home Care Provider Orthopedics 03/16/23 Christiano Loya PA-C [address] [place] [address] [phone] Referring Orthopedics 03/16/23 Екатерина Escalante APRN.RUBY ON RAILS DEVELOPER [address] [place] [address] Sheet Metal Superintendent Internal Medicine 07/21/24 Core Shaper Relationship Specialty Start Date End Date Helen Chapa MD [address] [place] [address] PCP - General Internal Medicine 08/26/19 Marco Hernandez MD [address] [place] [address] 41596 Home Care Provider Orthopedics 03/16/23 Christiano Loya PA-C [address] [place] [address] [place] [address] Referring Orthopedics 03/16/23 Екатерина Escalante APRN.RUBY ON RAILS DEVELOPER [address] [place] [address] Sheet Metal Superintendent Internal Medicine 07/21/24 Core Shaper Relationship Specialty Start Date End Date Helen Chapa MD [address] [place] [address] PCP - General Internal Medicine 08/26/19 Marco Hernandez MD [address] [place] [address] 04490 Home Care Provider Orthopedics 03/16/23 Christiano Loya PA-C [address] [place] [address] 93551 Referring Orthopedics 03/16/23 Екатерина Escalante APRN.RUBY ON RAILS DEVELOPER [address] [place] [address] Sheet Metal Superintendent Internal Medicine 07/21/24 Core Shaper Relationship Specialty Start Date End Date Helen Chapa MD [address] [place] [address] PCP - General Internal Medicine 08/26/19 Marco Hernandez MD [address] [place] [address] 50019 Home Care Provider Orthopedics 03/16/23 Christiano Loya PA-C [address] [place] [address] 10913 Referring Orthopedics 03/16/23 Екатерина Escalante APRN.RUBY ON RAILS DEVELOPER [address] [place] [address] Sheet Metal Superintendent Internal Medicine 07/21/24 Core Shaper Relationship Specialty Start Date End Date Helen Chapa MD [address] [place] [address] PCP - General Internal Medicine 08/26/19 Marco Hernandez MD [address] [place] [address] 51202 Home Care Provider Orthopedics 03/16/23 Christiano Loya PA-C [address] [place] [address] [phone] Referring Orthopedics 03/16/23 Екатерина Escalante APRN.RUBY ON RAILS DEVELOPER [address] [place] [address] Sheet Metal Superintendent Internal Medicine 07/21/24 Core Shaper Relationship Specialty Start Date End Date Helen Chapa MD [address] [place] [address] PCP - General Internal Medicine 08/26/19 Marco Hernandez MD [address] [place] [address] 04632 Home Care Provider Orthopedics 03/16/23 Christiano Loya PA-C [address] [place] [address] 76701 Referring Orthopedics 03/16/23 Екатерина Escalante APRN.RUBY ON RAILS DEVELOPER [address] [place] [address] Sheet Metal Superintendent Internal Medicine 07/21/24 Core Shaper Relationship Specialty Start Date End Date Helen Chapa MD [address] [place] [address] PCP - General Internal Medicine 08/26/19 Marco Hernandez MD [address] [place] [address] 75509 Home Care Provider Orthopedics 03/16/23 Christiano Loya PA-C [address] [place] [address] [phone] Referring Orthopedics 03/16/23 Екатерина Escalante APRN.RUBY ON RAILS DEVELOPER [facility] [place] [address] Sheet Metal Superintendent Internal Medicine 07/21/24 Core Shaper Relationship Specialty Start Date End Date Helen Chapa MD [address] [place] [address] 40635 PCP - General Internal Medicine 08/26/19 Marco Hernandez MD [address] [place] [address] 77220 Home Care Provider Orthopedics 03/16/23 Christiano Loya PA-C [address] [place] [address] 52667 Referring Orthopedics 03/16/23 Екатерина Escalante APRN.RUBY ON RAILS DEVELOPER [address] [place] [address] Sheet Metal Superintendent Internal Medicine 07/21/24 Core Shaper Relationship Specialty Start Date End Date Helen Chapa MD [address] [place] [address] PCP - General Internal Medicine 08/26/19 Marco Hernandez MD [address] [place] [address] 79839 Home Care Provider Orthopedics 03/16/23 Christiano Loya PA-C [address] [place] [address] 84569 Referring Orthopedics 03/16/23 Екатерина Escalante APRN.RUBY ON RAILS DEVELOPER [address] [place] [address] Sheet Metal Superintendent Internal Medicine 07/21/24 Core Shaper Relationship Specialty Start Date End Date Helen Chapa MD [address] [place] [address] PCP - General Internal Medicine 08/26/19 Marco Hernandez MD [address] [place] [address] 16863 Home Care Provider Orthopedics 03/16/23 Christiano Loya PA-C [address] [place] [address] [phone] Referring Orthopedics 03/16/23 Екатерина Escalante APRN.RUBY ON RAILS DEVELOPER [address] [place] [address] Sheet Metal Superintendent Internal Medicine 07/21/24 Core Shaper Relationship Specialty Start Date End Date Helen Chapa MD [address] [place] [address] PCP - General Internal Medicine 08/26/19 Marco Hernandez MD [address] [place] [address] 90157 Home Care Provider Orthopedics 03/16/23 Christiano Loya PA-C [address] [place] [address] 60746 Referring Orthopedics 03/16/23 Екатерина Escalante APRN.RUBY ON RAILS DEVELOPER [address] [place] [address] Sheet Metal Superintendent Internal Medicine 07/21/24 Core Shaper Relationship Specialty Start Date End Date Helen Chapa MD [address] [place] [address] PCP - General Internal Medicine 08/26/19 Marco Hernandez MD [address] [place] [address] 19607 Home Care Provider Orthopedics 03/16/23 Christiano Loya PA-C [address] [place] [address] 18141 Referring Orthopedics 03/16/23 Екатерина Escalante APRN.RUBY ON RAILS DEVELOPER [address] [place] [address] Sheet Metal Superintendent Internal Medicine 07/21/24 Core Shaper Relationship Specialty Start Date End Date Helen Chapa MD [address] [place] [address] PCP - General Internal Medicine 08/26/19 Marco Hernandez MD [address] [place] [address] 97034 Home Care Provider Orthopedics 03/16/23 Christiano Loya PA-C [address] [place] [address] 30401 Referring Orthopedics 03/16/23 Екатерина Escalante APRN.RUBY ON RAILS DEVELOPER [address] [place] [address] Sheet Metal Superintendent Internal Medicine 07/21/24 Core Shaper Relationship Specialty Start Date End Date Helen Chapa MD [address] [place] [address] PCP - General Internal Medicine 08/26/19 Marco Hernandez MD [address] [place] [address] 38822 Home Care Provider Orthopedics 03/16/23 Christiano Loya PA-C [address] [place] [address] 85477 Referring Orthopedics 03/16/23 Екатерина Escalante APRN.RUBY ON RAILS DEVELOPER [address] [place] [address] Sheet Metal Superintendent Internal Medicine 07/21/24 Core Shaper Relationship Specialty Start Date End Date Helen Chapa MD [address] [place] [address] PCP - General Internal Medicine 08/26/19 Marco Hernandez MD [address] [place] [address] 06765 Home Care Provider Orthopedics 03/16/23 Christiano Loya PA-C [address] [place] [address] 25614 Referring Orthopedics 03/16/23 Екатерина Escalante APRN.RUBY ON RAILS DEVELOPER [address] [place] [address] Sheet Metal Superintendent Internal Medicine 07/21/24 Goals (unrecognized section and [...] BE BASED ON THE PRIMARY CLINICAL RECORDS. [facility]. provides no warranty or guarantee of the accuracy or completeness of information in this document.
--- NOTE | 2025-07-09 16:38 | STRESSREP ---
Stress Test Report Pharmacologic myocardial perfusion stress test. 79-year-old woman with a history of chest pain and dyspnea. Resting EKG demonstrates normal sinus rhythm with a left bundle branch block with a rate of 63 bpm. Resting blood pressure is 164/94 mmHg. 0.4 mg of regadenoson was infused per usual protocol followed by rapid intravenous saline flush injection. Continuous EKG monitoring was performed. The maximum heart rate was 89 bpm which was 63% of max impacted heart rate the maximum workload was 1 metabolic equivalent. At rest there were no ST or T wave changes noted to suggest ischemia and at peak infusion nonspecific ST changes were noted which did not meet the criteria for ischemia. No clinical angina is noted. The final blood pressure was 164/94 mmHg. Myocardial perfusion protocol. 15 mCi of technetium 99m sestamibi was injected at rest. 0.4 mg of regadenoson was infused per usual protocol. At peak infusion 45 mCi of technetium 99m sestamibi was injected stress images were obtained stress and rest images were reconstructed and compared in the short axis vertical long and horizontal long axis. Gated images were also obtained. Perfusion SPECT analysis: Review of the stress images demonstrate normal uptake of tracer noted in all areas of the myocardium. Mildly reduced perfusion noted at the apex. the resting images similar demonstrated normal uptake of tracer noted in all areas of the myocardium. Mildly reduced perfusion noted at the apex. The above is likely secondary to the left bundle branch block morphology. No areas of reversibility are noted to suggest ischemia and no previous infarct is noted. Gated SPECT analysis: The gated ejection fraction is 76%. Conclusion: Normal pharmacologic myocardial perfusion stress test. Preserved ejection fraction.
== END | disposition home or self-care (01) ==
PROVIDERS: PCP Internal Medicine; Referring Provider Nurse Practitioner Gerontology; Visit Provider Nurse Practitioner Gerontology
DX: R07.9 Chest pain, unspecified (principal); R06.00 Dyspnea, unspecified; Z95.5 Presence of coronary angioplasty implant and graft; I44.7 Left bundle-branch block, unspecified
CPT/HCPCS: 78452; 93017; A9500; A4216; J2785